=== PATIENT | female | born 1985 | race Caucasian/White ===

== ENCOUNTER 2017-02-27 08:20 | Emergency (ER) | payer MEDICAID, OTHER, SELFPAY ==
[~2017-02-27] VITALS: Ht 154.9 cm; Wt 128.0 kg
[2017-02-27] MEDS ORDERED: PRAD150C PO (08:39)
[2017-02-27] MEDS ORDERED: MORPHINE 4 MG/ML 1ML SYRINGE IV ONE ×2 (09:00→10:45)
[2017-02-27 09:17] LABS: BASO % 0.2 % (0.0-1.0); EOS # 0.1 10^3/uL (0.0-0.50); EOS % 0.9 % (0.0-3.0); IMMATURE GRANULOCYTE % 0.3 % (0-0); LYMPH # 1.6 10^3/uL (1.5-4.5); LYMPH % 27.2 % (24.0-44.0); MEAN CORPUSCULAR HEMOGLOBIN 27.2 pg (27.0-33.0); MEAN CORPUSCULAR HGB CONC 32.2 g/dl (32.0-36.5); MEAN CORPUSCULAR VOLUME 84.3 fl (80.0-96.0); MONO # 0.4 10^3/uL (0.0-0.8); MONO % 6.8 % (0.0-5.0); NEUTROPHILS # 3.8 10^3/uL (1.8-7.7); NEUTROPHILS % 64.6 % (36.0-66.0); PLATELET COUNT, AUTOMATED 350 10^3/uL (150-450); RED CELL DISTRIBUTION WIDTH 15.4 % (11.5-14.5); WHITE BLOOD COUNT 5.9 10^3/uL (4.0-10.0)
[2017-02-27 09:43] LABS: ALBUMIN 3.6 GM/DL (3.2-5.2); ALKALINE PHOSPHATASE 102 U/L (45-117); ALT/SGPT 44 U/L (12-78); ANION GAP 7 MEQ/L (8-16); AST/SGOT 43 U/L (7-37); BILIRUBIN,TOTAL 0.4 MG/DL (0.2-1.0); BLOOD UREA NITROGEN 10 MG/DL (7-18); CARBON DIOXIDE LEVEL 27 MEQ/L (21-32); CHLORIDE LEVEL 105 MEQ/L (98-107); CREATININE FOR GFR 0.79 MG/DL (0.55-1.02); GLOMERULAR FILTRATION RATE > 60.0 (>60); GLUCOSE, FASTING 96 MG/DL (70-105); POTASSIUM SERUM 3.9 MEQ/L (3.5-5.1); SODIUM LEVEL 139 MEQ/L (136-145); TOTAL PROTEIN 7.6 GM/DL (6.4-8.2)
--- NOTE | 2017-02-27 09:44 | REP ---
RENAL ULTRASOUND: Real-time sonographic evaluation of the kidneys is performed and demonstrates both kidneys to be normal in size and echotexture, right kidney measuring 10.4 x 5.4 x 4.4 cm and left kidney 10.6 x 5.1 x 5.1 cm. There is no hydronephrosis, renal mass or nephrolithiasis. The exam is somewhat limited due to patient body habitus. Urinary bladder is not well distended and not well evaluated. IMPRESSION: Unremarkable renal ultrasound with no hydronephrosis. Signed by Keenan Frederick MD 02/27/2017 04:57 P
[2017-02-27] MEDS ORDERED: ISOVUE-370 76% 100ML VIAL (Q9967) As Ordered ONE (10:48)
--- NOTE | 2017-02-27 11:38 | REP ---
CT of the abdomen pelvis with IV contrast, without bowel contrast. The patient complains of left sided abdominal pain. Renal ultrasound earlier today identified and no hydronephrosis is otherwise unremarkable. There are no comparison CT studies. The visualized lung pleitez are unremarkable. The hepatic parenchyma is diffusely hypodense compatible with hepato steatosis. There are no focal hepatic lesions. There are surgical clips in the gallbladder fossa. The pancreas and spleen are normal size and unremarkable. The adrenals are unremarkable. There is no hydronephrosis. There are no renal calculi. There are no solid or cystic renal masses. The abdominal aorta is unremarkable. There is no bowel distension or obstruction. There are a few diverticula in the descending colon and sigmoid colon. There is no CT evidence of diverticulitis. The uterus and adnexa are unremarkable. The bladder is unremarkable. There is a surgical clip at the tip of the cecum. Impression: Hepato steatosis. Cholecystectomy. Appendectomy. There are no adnexal masses or cysts. There is diverticulosis without diverticulitis. There is no ascites or adenopathy. No hydronephrosis. No solid or cystic renal masses. Otherwise, negative CT of the abdomen Signed by Keenan Madison MD 02/27/2017 11:29 A
[2017-02-27] MEDS ORDERED: NORCOTAB PO (13:13)
[2017-02-27] MEDS ORDERED: PYRI1TAB5 PO (13:13)
[2017-02-27] MEDS ORDERED: NITR100C39 PO (13:13)
[2017-02-27 13:23] VITALS: BP 133/79
== END 2017-02-27 13:26 | disposition home or self-care (01) ==
LOC: M ED 08:20
DX: N39.0 Urinary tract infection, site not specified (principal); K57.30 Diverticulosis of large intestine without perforation or abscess without bleeding; K76.0 Fatty (change of) liver, not elsewhere classified; Z79.01 Long term (current) use of anticoagulants; Z88.0 Allergy status to penicillin; Z86.711 Personal history of pulmonary embolism; Z98.890 Other specified postprocedural states
CPT/HCPCS: 74177; 76775; 80053; 81001; 83690; 85025; 96374; 96376; 99284; Q9967

== ENCOUNTER 2017-03-02 14:26 | Emergency (ER) | payer MEDICAID, SELFPAY ==
[~2017-03-02] VITALS: Ht 154.9 cm; Wt 118.6 kg
[2017-03-02 14:26] VITALS: BP 135/81
[~2017-03-02 14:26] MED LIST: NITR100C39 PO; NORCOTAB PO; PRAD150C PO; PYRI1TAB5 PO
[2017-03-02] MEDS ORDERED: METOCLOPRAMIDE INJ 10MG/2ML VIAL (J2765) IV ONE (17:00)
[2017-03-02] MEDS ORDERED: GI COCKTAIL 50ML BTL(HYOSCYAMINE/MAALOX/LIDOCAINE VISCOUS)(1:3:1) PO ONE (17:00)
[2017-03-02] MEDS ORDERED: PANTOPRAZOLE 40MG INJ (PROTONIX) (C9113) IV ONE (17:00)
[2017-03-02] MEDS ORDERED: NS 1,000 ML IV ONE (17:00)
[2017-03-02 17:51] LABS: BASO % 0.1 % (0.0-1.0); EOS # 0.1 10^3/uL (0.0-0.50); EOS % 0.7 % (0.0-3.0); IMMATURE GRANULOCYTE % 0.5 % (0-0); LYMPH # 1.7 10^3/uL (1.5-4.5); MEAN CORPUSCULAR HEMOGLOBIN 27.1 pg (27.0-33.0); MEAN CORPUSCULAR HGB CONC 31.9 g/dl (32.0-36.5); MONO # 0.4 10^3/uL (0.0-0.8); MONO % 4.9 % (0.0-5.0); NEUTROPHILS # 5.3 10^3/uL (1.8-7.7); NEUTROPHILS % 70.8 % (36.0-66.0); PLATELET COUNT, AUTOMATED 347 10^3/uL (150-450); RED CELL DISTRIBUTION WIDTH 15.6 % (11.5-14.5); WHITE BLOOD COUNT 7.5 10^3/uL (4.0-10.0)
[2017-03-02 18:15] LABS: ALBUMIN 3.6 GM/DL (3.2-5.2); ALBUMIN/GLOBULIN RATIO 0.95 (1.00-1.93); ALKALINE PHOSPHATASE 104 U/L (45-117); ALT/SGPT 41 U/L (12-78); ANION GAP 10 MEQ/L (8-16); AST/SGOT 31 U/L (7-37); BILIRUBIN,DIRECT < 0.1 MG/DL (0.0-0.2); BILIRUBIN,TOTAL 0.3 MG/DL (0.2-1.0); BLOOD UREA NITROGEN 14 MG/DL (7-18); CALCIUM LEVEL 8.3 MG/DL (8.5-10.1); CARBON DIOXIDE LEVEL 23 MEQ/L (21-32); CHLORIDE LEVEL 108 MEQ/L (98-107); GLOMERULAR FILTRATION RATE > 60.0 (>60); GLUCOSE, FASTING 83 MG/DL (70-105); POTASSIUM SERUM 3.9 MEQ/L (3.5-5.1); SODIUM LEVEL 141 MEQ/L (136-145); TOTAL PROTEIN 7.4 GM/DL (6.4-8.2)
== END 2017-03-02 18:33 | disposition left against medical advice (07) ==
LOC: M ED 15:40
DX: R31.9 Hematuria, unspecified (principal)
CPT/HCPCS: 80048; 80076; 81001; 81025; 83690; 85025; 87086; 96361; 96374; 96375; 99284; C9113; J2765

== ENCOUNTER 2017-03-03 06:43 | Emergency (ER) | payer MEDICAID, OTHER, SELFPAY ==
[~2017-03-03] VITALS: Ht 154.9 cm; Wt 118.6 kg
[2017-03-03] MEDS ORDERED: MORPHINE 4 MG/ML 1ML SYRINGE IV ONE ×2 (07:45→09:15)
[2017-03-03 08:15] LABS: BASO % 0.2 % (0.0-1.0); EOS # 0.1 10^3/uL (0.0-0.50); EOS % 1.3 % (0.0-3.0); IMMATURE GRANULOCYTE % 0.4 % (0-0); LYMPH # 1.3 10^3/uL (1.5-4.5); LYMPH % 23.3 % (24.0-44.0); MEAN CORPUSCULAR HEMOGLOBIN 27.1 pg (27.0-33.0); MEAN CORPUSCULAR HGB CONC 31.8 g/dl (32.0-36.5); MEAN CORPUSCULAR VOLUME 85.3 fl (80.0-96.0); MONO # 0.4 10^3/uL (0.0-0.8); MONO % 6.8 % (0.0-5.0); NEUTROPHILS # 3.7 10^3/uL (1.8-7.7); PLATELET COUNT, AUTOMATED 331 10^3/uL (150-450); RED CELL DISTRIBUTION WIDTH 15.7 % (11.5-14.5); WHITE BLOOD COUNT 5.4 10^3/uL (4.0-10.0)
[2017-03-03 09:20] VITALS: BP 147/77
--- NOTE | 2017-03-03 09:28 | REP ---
PELVIC ULTRASOUND: Real-time sonographic evaluation of the pelvis performed utilizing transabdominal technique. Bladder measures 4.2 x 3.8 x 4.8 cm. Uterus measures 6.8 x 4.5 x 6.0 cm. Endometrial thickness is 5 mm. Patient declined endovaginal exam. Ovaries are normal in size and echotexture, right ovary measuring 1.8 x 1.1 x 1.3 cm and left ovary 1.9 x 1.6 x 1.8 cm. A dominant follicle in the left ovary measures 1 cm in diameter. There is blood flow seen in each ovary with duplex Doppler evaluation, with no torsion, RI of the right ovary 0.34 and left ovary 0.40. IMPRESSION: Limited exam due to patient body habitus. Patient declined endovaginal exam. Grossly unremarkable pelvic ultrasound with no mass, free fluid, or torsion. Signed by Keenan Frederick MD 03/03/2017 05:21 P
== END 2017-03-03 11:07 | disposition home or self-care (01) ==
LOC: M ED 06:43
DX: R31.9 Hematuria, unspecified (principal); R10.32 Left lower quadrant pain; Z79.899 Other long term (current) drug therapy; Z88.0 Allergy status to penicillin; Z86.711 Personal history of pulmonary embolism

== ENCOUNTER 2017-03-10 10:07 | Emergency (ER) | payer MEDICAID, OTHER ==
[2017-03-10] MEDS: GI COCKTAIL 50ML BTL(HYOSCYAMINE/MAALOX/LIDOCAINE VISCOUS)(1:3:1) PO ×2 (12:00)
[2017-03-10 12:16] LABS: BASO % 0.3 % (0.0-1.0); EOS % 0.4 % (0.0-3.0); IMMATURE GRANULOCYTE % 0.4 % (0-0); LYMPH # 1.5 10^3/uL (1.5-4.5); LYMPH % 18.9 % (24.0-44.0); MEAN CORPUSCULAR HEMOGLOBIN 27.3 pg (27.0-33.0); MEAN CORPUSCULAR HGB CONC 31.7 g/dl (32.0-36.5); MEAN CORPUSCULAR VOLUME 86.1 fl (80.0-96.0); MONO # 0.5 10^3/uL (0.0-0.8); MONO % 5.9 % (0.0-5.0); NEUTROPHILS # 5.7 10^3/uL (1.8-7.7); NEUTROPHILS % 74.1 % (36.0-66.0); PLATELET COUNT, AUTOMATED 341 10^3/uL (150-450); RED CELL DISTRIBUTION WIDTH 15.3 % (11.5-14.5); WHITE BLOOD COUNT 7.7 10^3/uL (4.0-10.0)
[2017-03-10 12:47] LABS: ALBUMIN 3.6 GM/DL (3.2-5.2); ALBUMIN/GLOBULIN RATIO 0.86 (1.00-1.93); ALKALINE PHOSPHATASE 92 U/L (45-117); ALT/SGPT 36 U/L (12-78); ANION GAP 7 MEQ/L (8-16); AST/SGOT 25 U/L (7-37); BILIRUBIN,TOTAL 0.4 MG/DL (0.2-1.0); BLOOD UREA NITROGEN 19 MG/DL (7-18); CALCIUM LEVEL 8.6 MG/DL (8.5-10.1); CARBON DIOXIDE LEVEL 26 MEQ/L (21-32); CHLORIDE LEVEL 107 MEQ/L (98-107); CREATININE FOR GFR 0.68 MG/DL (0.55-1.02); GLOMERULAR FILTRATION RATE > 60.0 (>60); GLUCOSE, FASTING 91 MG/DL (70-105); POTASSIUM SERUM 3.9 MEQ/L (3.5-5.1); SODIUM LEVEL 140 MEQ/L (136-145); TOTAL PROTEIN 7.8 GM/DL (6.4-8.2)
[2017-03-10] MEDS: NORCO, ANEXSIA 5/325MG TABLET (HYDROcodone/ACETAMINOPHEN) PO ×2 (13:26)
[2017-03-10] MEDS: MAGNESIUM CITRATE 300 ML BTL PO ×2 (14:45)
== END 2017-03-10 14:58 | disposition home or self-care (01) ==
LOC: M ED 10:07
DX: R10.13 Epigastric pain (principal); Z86.711 Personal history of pulmonary embolism; Z88.0 Allergy status to penicillin; Z79.01 Long term (current) use of anticoagulants
CPT/HCPCS: 71020

== ENCOUNTER 2017-03-30 13:19 | Emergency (ER) | payer MEDICAID, OTHER ==
[2017-03-30] MEDS: NORCO, ANEXSIA 5/325MG TABLET (HYDROcodone/ACETAMINOPHEN) PO ×2 (16:58)
== END 2017-03-30 17:07 | disposition home or self-care (01) ==
LOC: M ED 13:19
DX: R10.9 Unspecified abdominal pain (principal); J45.909 Unspecified asthma, uncomplicated; Z79.01 Long term (current) use of anticoagulants; Z88.0 Allergy status to penicillin; Z87.442 Personal history of urinary calculi; Z86.711 Personal history of pulmonary embolism
CPT/HCPCS: 81025

== ENCOUNTER 2017-04-30 14:45 | Emergency (ER) | payer MEDICAID, OTHER ==
[2017-04-30] MEDS: ONDANSETRON 4MG/2ML VIAL (J2405) IV ×2 (15:46)
[2017-04-30] MEDS: MORPHINE 4 MG/ML 1ML VIAL (J2270) IV ×2 (15:46)
[2017-04-30] MEDS: NS 1,000 ML IV ×2 (15:47)
[2017-04-30 15:53] LABS: BASO % 0.3 % (0.0-1.0); EOS # 0.1 10^3/uL (0.0-0.50); EOS % 1.3 % (0.0-3.0); HEMATOCRIT 35.7 % (36.0-47.0); HEMOGLOBIN 11.4 g/dl (12.0-16.0); IMMATURE GRANULOCYTE % 0.3 % (0-3.0); LYMPH # 1.9 10^3/uL (1.5-4.5); LYMPH % 31.7 % (24.0-44.0); MEAN CORPUSCULAR HGB CONC 31.9 g/dl (32.0-36.5); MEAN CORPUSCULAR VOLUME 84.4 fl (80.0-96.0); MONO # 0.4 10^3/uL (0.0-0.8); MONO % 7.4 % (0.0-5.0); NEUTROPHILS # 3.5 10^3/uL (1.8-7.7); PLATELET COUNT, AUTOMATED 290 10^3/uL (150-450); RED BLOOD COUNT 4.23 10^6/uL (4.00-5.40); RED CELL DISTRIBUTION WIDTH 14.3 % (11.5-14.5); WHITE BLOOD COUNT 5.9 10^3/uL (4.0-10.0)
[2017-04-30 16:15] LABS: ALBUMIN 3.6 GM/DL (3.2-5.2); ALKALINE PHOSPHATASE 104 U/L (45-117); ALT/SGPT 57 U/L (12-78); AMYLASE 45 U/L (25-115); ANION GAP 7 MEQ/L (8-16); AST/SGOT 42 U/L (7-37); BILIRUBIN,DIRECT < 0.1 MG/DL (0.0-0.2); BILIRUBIN,TOTAL 0.3 MG/DL (0.2-1.0); BLOOD UREA NITROGEN 11 MG/DL (7-18); CALCIUM LEVEL 8.6 MG/DL (8.5-10.1); CARBON DIOXIDE LEVEL 28 MEQ/L (21-32); CHLORIDE LEVEL 105 MEQ/L (98-107); CREATININE FOR GFR 0.72 MG/DL (0.55-1.30); GLOMERULAR FILTRATION RATE > 60.0 (>60); GLUCOSE, FASTING 99 MG/DL (70-100); LIPASE 99 U/L (73-393); POTASSIUM SERUM 3.9 MEQ/L (3.5-5.1); SODIUM LEVEL 140 MEQ/L (136-145); TOTAL PROTEIN 7.6 GM/DL (6.4-8.2)
[2017-04-30 16:37] LABS: KETONE, URINE AUTO RFX NEGATIVE (NEGATIVE); NITRITE, URINE AUTO RFX NEGATIVE (NEGATIVE); RBC, URINE AUTO RFX TNTC /HPF (0-3); SPECIFIC GRAVITY UR AUTO RFX 1.017 (1.002-1.035); SQUAM EPITHELIAL CELL UR AURFX 16 /HPF (0-6)
[2017-04-30 16:45] LABS: LEUKOCYTE ESTERASE UR AUTO RFX 2+ (NEGATIVE); WBC, URINE AUTO RFX 11 /HPF (0-3)
[2017-04-30 17:45] LABS: CONTROL LINE UCG INT CTR LINE PRESENT; URINE PREG TEST NEGATIVE (NEGATIVE)
[2017-04-30] MEDS ORDERED: ISOVUE-370 76% 100ML VIAL (Q9967) As Ordered ×2 (18:02)
== END 2017-04-30 19:23 | disposition left against medical advice (07) ==
LOC: M ED 14:45
DX: R10.12 Left upper quadrant pain (principal); J45.909 Unspecified asthma, uncomplicated; Z79.01 Long term (current) use of anticoagulants; Z88.0 Allergy status to penicillin; Z87.442 Personal history of urinary calculi; Z86.711 Personal history of pulmonary embolism
CPT/HCPCS: J2270

== ENCOUNTER 2017-05-02 12:59 | Emergency (ER) | payer MEDICAID, OTHER ==
[2017-05-02 14:17] LABS: BASO % 0.4 % (0.0-1.0); EOS % 0.7 % (0.0-3.0); HEMATOCRIT 36.2 % (36.0-47.0); HEMOGLOBIN 11.7 g/dl (12.0-16.0); IMMATURE GRANULOCYTE % 0.4 % (0-3.0); LYMPH # 1.3 10^3/uL (1.5-4.5); LYMPH % 23.9 % (24.0-44.0); MEAN CORPUSCULAR HEMOGLOBIN 27.5 pg (27.0-33.0); MEAN CORPUSCULAR HGB CONC 32.3 g/dl (32.0-36.5); MEAN CORPUSCULAR VOLUME 85.2 fl (80.0-96.0); MONO # 0.4 10^3/uL (0.0-0.8); MONO % 7.7 % (0.0-5.0); NEUTROPHILS # 3.7 10^3/uL (1.8-7.7); NEUTROPHILS % 66.9 % (36.0-66.0); PLATELET COUNT, AUTOMATED 294 10^3/uL (150-450); RED BLOOD COUNT 4.25 10^6/uL (4.00-5.40); RED CELL DISTRIBUTION WIDTH 14.6 % (11.5-14.5); WHITE BLOOD COUNT 5.5 10^3/uL (4.0-10.0)
[2017-05-02] MEDS: ONDANSETRON 4MG/2ML VIAL (J2405) IV ×2 (14:25)
[2017-05-02] MEDS: NS 500 ML IV ×2 (14:25)
[2017-05-02] MEDS: MORPHINE 4 MG/ML 1ML VIAL (J2270) IV ×2 (14:26)
[2017-05-02 14:34] LABS: ALBUMIN 3.8 GM/DL (3.2-5.2); ALKALINE PHOSPHATASE 107 U/L (45-117); ALT/SGPT 60 U/L (12-78); AMYLASE 45 U/L (25-115); ANION GAP 7 MEQ/L (8-16); AST/SGOT 52 U/L (7-37); BILIRUBIN,DIRECT < 0.1 MG/DL (0.0-0.2); BILIRUBIN,TOTAL 0.3 MG/DL (0.2-1.0); BLOOD UREA NITROGEN 8 MG/DL (7-18); CALCIUM LEVEL 8.8 MG/DL (8.5-10.1); CARBON DIOXIDE LEVEL 28 MEQ/L (21-32); CHLORIDE LEVEL 104 MEQ/L (98-107); CREATININE FOR GFR 0.78 MG/DL (0.55-1.30); GLOMERULAR FILTRATION RATE > 60.0 (>60); GLUCOSE, FASTING 107 MG/DL (70-100); LIPASE 101 U/L (73-393); SODIUM LEVEL 139 MEQ/L (136-145)
[2017-05-02 14:47] LABS: APPEARANCE, URINE HAZY (CLEAR); BACTERIA, URINE AUTO 2+ (NEGATIVE); BILIRUBIN, URINE AUTO NEGATIVE (NEGATIVE); BLOOD, URINE BLOOD 1+ (NEGATIVE); COLOR, URINE YELLOW (YELLOW); GLUCOSE, URINE (UA) AUTO NEGATIVE (NEGATIVE); KETONE, URINE AUTO NEGATIVE (NEGATIVE); LEUKOCYTE ESTERASE, URINE AUTO 1+ (NEGATIVE); NITRITE, URINE AUTO NEGATIVE (NEGATIVE); PROTEIN, URINE AUTO 1+ mg/dL (NEGATIVE); RBC, URINE AUTO 10 /HPF (0-3); SPECIFIC GRAVITY URINE AUTO 1.026 (1.002-1.035); SQUAMOUS EPITHELIAL CELL UR AU 9 /HPF (0-6); UROBILINOGEN, URINE AUTO 0.2 mg/dL (0.0-2.0); WBC, URINE AUTO 12 /HPF (0-3)
[2017-05-02] MEDS: metroNIDAZOLE (FLAGYL) 500 MG TAB PO ×2 (15:10)
[2017-05-02] MEDS: CIPROFLOXACIN 500 MG TAB PO ×2 (15:10)
== END 2017-05-02 15:15 | disposition home or self-care (01) ==
LOC: M ED 12:59
DX: N39.0 Urinary tract infection, site not specified (principal); K52.9 Noninfective gastroenteritis and colitis, unspecified; N83.292 Other ovarian cyst, left side; E66.01 Morbid (severe) obesity due to excess calories; Z87.442 Personal history of urinary calculi; J45.909 Unspecified asthma, uncomplicated; Z86.711 Personal history of pulmonary embolism; Z79.899 Other long term (current) drug therapy; Z88.0 Allergy status to penicillin
CPT/HCPCS: J2270

== ENCOUNTER → 2017-05-07 | Outpatient (REF) | payer MEDICAID ==
[2017-05-07 14:07] LABS: APPEARANCE, URINE CLOUDY (CLEAR); BACTERIA, URINE AUTO NEGATIVE (NEGATIVE); BILIRUBIN, URINE AUTO NEGATIVE (NEGATIVE); BLOOD, URINE BLOOD 3+ (NEGATIVE); COLOR, URINE AMBER (YELLOW); GLUCOSE, URINE (UA) AUTO NEGATIVE (NEGATIVE); KETONE, URINE AUTO NEGATIVE (NEGATIVE); LEUKOCYTE ESTERASE, URINE AUTO TRACE (NEGATIVE); MUCUS, URINE MODERATE (NEGATIVE); NITRITE, URINE AUTO NEGATIVE (NEGATIVE); PROTEIN, URINE AUTO 2+ mg/dL (NEGATIVE); RBC, URINE AUTO TNTC /HPF (0-3); SPECIFIC GRAVITY URINE AUTO 1.036 (1.002-1.035); SQUAMOUS EPITHELIAL CELL UR AU 7 /HPF (0-6); UROBILINOGEN, URINE AUTO 0.2 mg/dL (0.0-2.0); WBC, URINE AUTO 8 /HPF (0-3)
== END ==
LOC: M SMT 13:10
DX: R31.0 Gross hematuria (principal)
CPT/HCPCS: 81001

== ENCOUNTER 2017-05-25 14:10 | Emergency (ER) | payer MEDICAID ==
[2017-05-25] MEDS: ONDANSETRON 4MG/2ML VIAL (J2405) IV (15:44)
[2017-05-25] MEDS: NS 1,000 ML IV (15:44)
[2017-05-25] MEDS: MORPHINE 4 MG/ML 1ML VIAL (J2270) IV ×3 (15:45→18:03)
[2017-05-25 15:56] LABS: BASO % 0.2 % (0.0-1.0); EOS # 0.1 10^3/uL (0.0-0.50); EOS % 1.3 % (0.0-3.0); HEMATOCRIT 34.6 % (36.0-47.0); HEMOGLOBIN 10.9 g/dl (12.0-16.0); IMMATURE GRANULOCYTE % 1.1 % (0-3.0); LYMPH # 2.2 10^3/uL (1.5-4.5); LYMPH % 23.6 % (24.0-44.0); MEAN CORPUSCULAR HEMOGLOBIN 26.5 pg (27.0-33.0); MEAN CORPUSCULAR HGB CONC 31.5 g/dl (32.0-36.5); MONO # 0.6 10^3/uL (0.0-0.8); MONO % 6.8 % (0.0-5.0); NEUTROPHILS # 6.2 10^3/uL (1.8-7.7); PLATELET COUNT, AUTOMATED 307 10^3/uL (150-450); RED BLOOD COUNT 4.12 10^6/uL (4.00-5.40); RED CELL DISTRIBUTION WIDTH 14.3 % (11.5-14.5); WHITE BLOOD COUNT 9.3 10^3/uL (4.0-10.0)
[2017-05-25 16:11] LABS: KETONE, URINE AUTO RFX NEGATIVE (NEGATIVE); LEUKOCYTE ESTERASE UR AUTO RFX NEGATIVE (NEGATIVE); MUCUS, URINE RFX SMALL (NEGATIVE); NITRITE, URINE AUTO RFX NEGATIVE (NEGATIVE); RBC, URINE AUTO RFX 0 /HPF (0-3); SQUAM EPITHELIAL CELL UR AURFX 4 /HPF (0-6); WBC, URINE AUTO RFX 1 /HPF (0-3)
[2017-05-25 16:12] LABS: ALBUMIN 3.5 GM/DL (3.2-5.2); ALBUMIN/GLOBULIN RATIO 0.95 (1.00-1.93); ALKALINE PHOSPHATASE 101 U/L (45-117); ALT/SGPT 40 U/L (12-78); ANION GAP 6 MEQ/L (8-16); AST/SGOT 28 U/L (7-37); BILIRUBIN,DIRECT < 0.1 MG/DL (0.0-0.2); BILIRUBIN,TOTAL 0.2 MG/DL (0.2-1.0); BLOOD UREA NITROGEN 12 MG/DL (7-18); CALCIUM LEVEL 8.4 MG/DL (8.5-10.1); CARBON DIOXIDE LEVEL 27 MEQ/L (21-32); CHLORIDE LEVEL 107 MEQ/L (98-107); GLOMERULAR FILTRATION RATE > 60.0 (>60); GLUCOSE, FASTING 85 MG/DL (70-100); LIPASE 113 U/L (73-393); POTASSIUM SERUM 3.8 MEQ/L (3.5-5.1); SODIUM LEVEL 140 MEQ/L (136-145); TOTAL PROTEIN 7.2 GM/DL (6.4-8.2)
[2017-05-25 16:26] LABS: CONTROL LINE UCG INT CTR LINE PRESENT; URINE PREG TEST NEGATIVE (NEGATIVE)
[2017-05-25] MEDS ORDERED: ISOVUE-370 76% 100ML VIAL (Q9967) As Ordered (16:33)
== END 2017-05-25 18:29 | disposition home or self-care (01) ==
LOC: M ED 14:10
DX: N83.202 Unspecified ovarian cyst, left side (principal); R10.32 Left lower quadrant pain; Z87.442 Personal history of urinary calculi; K76.0 Fatty (change of) liver, not elsewhere classified; Z79.899 Other long term (current) drug therapy; Z88.0 Allergy status to penicillin
CPT/HCPCS: J2270

== ENCOUNTER 2017-06-18 10:07 | Emergency (ER) | payer OTHER, MEDICAID ==
[2017-06-18] MEDS: PERCOCET 5MG/325MG TAB PO (10:43)
[2017-06-18] MEDS: ONDANSETRON 4 MG ORAL DISINTEGRATING TAB (S0181) PO (10:43)
[2017-06-18 11:05] LABS: BASO % 0.2 % (0.0-1.0); EOS # 0.1 10^3/uL (0.0-0.50); EOS % 0.9 % (0.0-3.0); HEMATOCRIT 36.1 % (36.0-47.0); HEMOGLOBIN 11.6 g/dl (12.0-15.5); IMMATURE GRANULOCYTE % 0.5 % (0-3.0); LYMPH # 1.6 10^3/uL (1.5-4.5); LYMPH % 19.4 % (24.0-44.0); MEAN CORPUSCULAR HEMOGLOBIN 27.2 pg (27.0-33.0); MEAN CORPUSCULAR HGB CONC 32.1 g/dl (32.0-36.5); MEAN CORPUSCULAR VOLUME 84.5 fl (80.0-96.0); MONO # 0.5 10^3/uL (0.0-0.8); MONO % 6.6 % (0.0-5.0); NEUTROPHILS # 5.8 10^3/uL (1.8-7.7); NEUTROPHILS % 72.4 % (36.0-66.0); PLATELET COUNT, AUTOMATED 336 10^3/uL (150-450); RED BLOOD COUNT 4.27 10^6/uL (4.00-5.40); RED CELL DISTRIBUTION WIDTH 14.8 % (11.5-14.5); WHITE BLOOD COUNT 8.1 10^3/uL (4.0-10.0)
[2017-06-18 11:49] LABS: ALBUMIN 3.7 GM/DL (3.2-5.2); ALBUMIN/GLOBULIN RATIO 0.95 (1.00-1.93); ALKALINE PHOSPHATASE 119 U/L (45-117); ALT/SGPT 61 U/L (12-78); ANION GAP 8 MEQ/L (8-16); AST/SGOT 49 U/L (7-37); BILIRUBIN,DIRECT < 0.1 MG/DL (0.0-0.2); BILIRUBIN,TOTAL 0.3 MG/DL (0.2-1.0); BLOOD UREA NITROGEN 8 MG/DL (7-18); CALCIUM LEVEL 8.9 MG/DL (8.5-10.1); CARBON DIOXIDE LEVEL 24 MEQ/L (21-32); CHLORIDE LEVEL 110 MEQ/L (98-107); CREATININE FOR GFR 0.79 MG/DL (0.55-1.30); GLOMERULAR FILTRATION RATE > 60.0 (>60); GLUCOSE, FASTING 88 MG/DL (70-100); LIPASE 90 U/L (73-393); POTASSIUM SERUM 4.2 MEQ/L (3.5-5.1); SODIUM LEVEL 142 MEQ/L (136-145); TOTAL PROTEIN 7.6 GM/DL (6.4-8.2)
== END 2017-06-18 12:08 | disposition home or self-care (01) ==
LOC: M ED 10:07
DX: N83.209 Unspecified ovarian cyst, unspecified side (principal); N30.00 Acute cystitis without hematuria; Z87.442 Personal history of urinary calculi; Z86.711 Personal history of pulmonary embolism; Z88.0 Allergy status to penicillin; Z79.899 Other long term (current) drug therapy
CPT/HCPCS: 74019

== ENCOUNTER 2017-06-26 06:06 | Emergency (ER) | payer OTHER ==
[2017-06-26] MEDS: ONDANSETRON 4 MG ORAL DISINTEGRATING TAB (S0181) PO (07:23)
[2017-06-26 07:43] LABS: BASO % 0.5 % (0.0-1.0); EOS # 0.1 10^3/uL (0.0-0.50); HEMATOCRIT 33.9 % (36.0-47.0); HEMOGLOBIN 10.6 g/dl (12.0-15.5); IMMATURE GRANULOCYTE % 0.3 % (0-3.0); LYMPH # 1.3 10^3/uL (1.5-4.5); LYMPH % 21.6 % (24.0-44.0); MEAN CORPUSCULAR HEMOGLOBIN 26.8 pg (27.0-33.0); MEAN CORPUSCULAR HGB CONC 31.3 g/dl (32.0-36.5); MEAN CORPUSCULAR VOLUME 85.6 fl (80.0-96.0); MONO # 0.5 10^3/uL (0.0-0.8); MONO % 7.8 % (0.0-5.0); NEUTROPHILS # 4.1 10^3/uL (1.8-7.7); NEUTROPHILS % 67.8 % (36.0-66.0); PLATELET COUNT, AUTOMATED 358 10^3/uL (150-450); RED BLOOD COUNT 3.96 10^6/uL (4.00-5.40); RED CELL DISTRIBUTION WIDTH 14.8 % (11.5-14.5); WHITE BLOOD COUNT 6.1 10^3/uL (4.0-10.0)
[2017-06-26 07:48] LABS: APPEARANCE, URINE HAZY (CLEAR); BACTERIA, URINE AUTO 1+ (NEGATIVE); BILIRUBIN, URINE AUTO NEGATIVE (NEGATIVE); BLOOD, URINE BLOOD 3+ (NEGATIVE); COLOR, URINE YELLOW (YELLOW); GLUCOSE, URINE (UA) AUTO NEGATIVE (NEGATIVE); KETONE, URINE AUTO NEGATIVE (NEGATIVE); LEUKOCYTE ESTERASE, URINE AUTO 1+ (NEGATIVE); MUCUS, URINE SMALL (NEGATIVE); NITRITE, URINE AUTO NEGATIVE (NEGATIVE); PROTEIN, URINE AUTO NEGATIVE (NEGATIVE); RBC, URINE AUTO TNTC /HPF (0-3); SPECIFIC GRAVITY URINE AUTO 1.008 (1.002-1.035); SQUAMOUS EPITHELIAL CELL UR AU 7 /HPF (0-6); UROBILINOGEN, URINE AUTO 0.2 mg/dL (0.0-2.0); WBC, URINE AUTO 16 /HPF (0-3)
[2017-06-26] MEDS: PERCOCET 5MG/325MG TAB PO (08:05)
[2017-06-26 08:07] LABS: ANION GAP 6 MEQ/L (8-16); BLOOD UREA NITROGEN 12 MG/DL (7-18); CALCIUM LEVEL 8.7 MG/DL (8.5-10.1); CARBON DIOXIDE LEVEL 26 MEQ/L (21-32); CHLORIDE LEVEL 109 MEQ/L (98-107); CREATININE FOR GFR 0.81 MG/DL (0.55-1.30); GLOMERULAR FILTRATION RATE > 60.0 (>60); GLUCOSE, FASTING 100 MG/DL (70-100); POTASSIUM SERUM 4.3 MEQ/L (3.5-5.1); SODIUM LEVEL 141 MEQ/L (136-145)
[2017-06-26] MEDS: NS 1,000 ML IV (08:41)
[2017-06-26] MEDS: METOCLOPRAMIDE INJ 10MG/2ML VIAL (J2765) IV (08:41)
[2017-06-26] MEDS: MORPHINE 4 MG/ML 1ML VIAL (J2270) IV (09:01)
[2017-06-26 09:05] LABS: LACTIC ACID SEPSIS PROTOCOL 1.6 MMOL/L (0.4-2.0)
== END 2017-06-26 10:21 | disposition home or self-care (01) ==
LOC: M ED 06:06
DX: R10.9 Unspecified abdominal pain (principal); N20.0 Calculus of kidney; R31.9 Hematuria, unspecified; I10 Essential (primary) hypertension; J45.909 Unspecified asthma, uncomplicated; K76.0 Fatty (change of) liver, not elsewhere classified; Z79.899 Other long term (current) drug therapy; Z88.0 Allergy status to penicillin; Z98.890 Other specified postprocedural states; Z86.711 Personal history of pulmonary embolism; Z87.19 Personal history of other diseases of the digestive system; Z87.442 Personal history of urinary calculi; Z87.448 Personal history of other diseases of urinary system
CPT/HCPCS: J2270

== ENCOUNTER 2017-07-04 11:28 | Observation (INO) | payer OTHER ==
[2017-07-04 12:33] LABS: BASO % 0.4 % (0.0-1.0); EOS # 0.2 10^3/uL (0.0-0.50); EOS % 2.3 % (0.0-3.0); HEMATOCRIT 34.9 % (36.0-47.0); HEMOGLOBIN 10.9 g/dl (12.0-15.5); IMMATURE GRANULOCYTE % 0.6 % (0-3.0); LYMPH # 2.2 10^3/uL (1.5-4.5); LYMPH % 27.1 % (24.0-44.0); MEAN CORPUSCULAR HEMOGLOBIN 26.5 pg (27.0-33.0); MEAN CORPUSCULAR HGB CONC 31.2 g/dl (32.0-36.5); MEAN CORPUSCULAR VOLUME 84.9 fl (80.0-96.0); MONO # 0.7 10^3/uL (0.0-0.8); MONO % 8.9 % (0.0-5.0); NEUTROPHILS # 4.9 10^3/uL (1.8-7.7); NEUTROPHILS % 60.7 % (36.0-66.0); PLATELET COUNT, AUTOMATED 376 10^3/uL (150-450); RED BLOOD COUNT 4.11 10^6/uL (4.00-5.40); RED CELL DISTRIBUTION WIDTH 14.5 % (11.5-14.5)
[2017-07-04] MEDS: PERCOCET 5MG/325MG TAB PO ×2 (12:34→21:18)
[2017-07-04] MEDS: ONDANSETRON 4 MG ORAL DISINTEGRATING TAB (Q0162 PER 1MG) PO (12:34)
[2017-07-04] MEDS: NS 1,000 ML IV ×2 (12:34→17:45)
[2017-07-04 12:49] LABS: APPEARANCE, URINE CLOUDY (CLEAR); BACTERIA, URINE AUTO 1+ (NEGATIVE); BILIRUBIN, URINE AUTO NEGATIVE (NEGATIVE); BLOOD, URINE BLOOD NEGATIVE (NEGATIVE); COLOR, URINE YELLOW (YELLOW); GLUCOSE, URINE (UA) AUTO NEGATIVE (NEGATIVE); KETONE, URINE AUTO NEGATIVE (NEGATIVE); LEUKOCYTE ESTERASE, URINE AUTO TRACE (NEGATIVE); MUCUS, URINE SMALL (NEGATIVE); NITRITE, URINE AUTO NEGATIVE (NEGATIVE); PROTEIN, URINE AUTO NEGATIVE (NEGATIVE); RBC, URINE AUTO 2 /HPF (0-3); SPECIFIC GRAVITY URINE AUTO 1.028 (1.002-1.035); SQUAMOUS EPITHELIAL CELL UR AU 15 /HPF (0-6); UROBILINOGEN, URINE AUTO 0.2 mg/dL (0.0-2.0); WBC, URINE AUTO 4 /HPF (0-3)
[2017-07-04 12:56] LABS: ANION GAP 6 MEQ/L (8-16); BLOOD UREA NITROGEN 18 MG/DL (7-18); CALCIUM LEVEL 8.8 MG/DL (8.5-10.1); CARBON DIOXIDE LEVEL 25 MEQ/L (21-32); CHLORIDE LEVEL 108 MEQ/L (98-107); CREATININE FOR GFR 0.79 MG/DL (0.55-1.30); GLOMERULAR FILTRATION RATE > 60.0 (>60); GLUCOSE, FASTING 90 MG/DL (70-100); POTASSIUM SERUM 4.6 MEQ/L (3.5-5.1); SODIUM LEVEL 139 MEQ/L (136-145)
[2017-07-04] MEDS: MORPHINE 4 MG/ML 1ML VIAL/SYRINGE (J2270) IV ×3 (13:53→22:53)
[2017-07-04] MEDS ORDERED: ISOVUE-370 76% 100ML VIAL (Q9967) As Ordered (15:30)
[2017-07-04] MEDS ORDERED: ACETAMINOPHEN TAB 650MG DOSE (2X325MG) PO (17:15)
[2017-07-04] MEDS ORDERED: MIRALAX *UNIT DOSE* 17GM PACKET PO (17:15)
[2017-07-04] MEDS: LevoFLOXacin 500 MG TABLET PO (18:40)
[2017-07-04] MEDS: MIRTAZAPINE 15 MG TAB PO (21:17)
[2017-07-04] MEDS: DABIGATRAN ETEXILATE 75 MG CAP (PRADAXA) PO (21:17)
[2017-07-04] MEDS: cloNIDine 0.2 MG TAB PO (21:18)
[2017-07-05] MEDS: MORPHINE 4 MG/ML 1ML VIAL/SYRINGE (J2270) IV ×5 (02:17→22:57)
[2017-07-05 06:57] LABS: BASO % 0.2 % (0.0-1.0); EOS # 0.2 10^3/uL (0.0-0.50); EOS % 4.3 % (0.0-3.0); HEMATOCRIT 29.5 % (36.0-47.0); HEMOGLOBIN 9.2 g/dl (12.0-15.5); IMMATURE GRANULOCYTE % 0.8 % (0-3.0); LYMPH # 1.7 10^3/uL (1.5-4.5); LYMPH % 32.5 % (24.0-44.0); MEAN CORPUSCULAR HEMOGLOBIN 26.7 pg (27.0-33.0); MEAN CORPUSCULAR HGB CONC 31.2 g/dl (32.0-36.5); MEAN CORPUSCULAR VOLUME 85.5 fl (80.0-96.0); MONO # 0.5 10^3/uL (0.0-0.8); MONO % 9.9 % (0.0-5.0); NEUTROPHILS # 2.7 10^3/uL (1.8-7.7); NEUTROPHILS % 52.3 % (36.0-66.0); PLATELET COUNT, AUTOMATED 303 10^3/uL (150-450); RED BLOOD COUNT 3.45 10^6/uL (4.00-5.40); RED CELL DISTRIBUTION WIDTH 14.7 % (11.5-14.5); WHITE BLOOD COUNT 5.2 10^3/uL (4.0-10.0)
[2017-07-05 07:14] LABS: ALBUMIN 2.9 GM/DL (3.2-5.2); ALBUMIN/GLOBULIN RATIO 0.83 (1.00-1.93); ALKALINE PHOSPHATASE 107 U/L (45-117); ALT/SGPT 80 U/L (12-78); ANION GAP 7 MEQ/L (8-16); AST/SGOT 74 U/L (7-37); BILIRUBIN,TOTAL 0.3 MG/DL (0.2-1.0); BLOOD UREA NITROGEN 11 MG/DL (7-18); CALCIUM LEVEL 7.9 MG/DL (8.5-10.1); CARBON DIOXIDE LEVEL 22 MEQ/L (21-32); CHLORIDE LEVEL 110 MEQ/L (98-107); CREATININE FOR GFR 0.74 MG/DL (0.55-1.30); GLOMERULAR FILTRATION RATE > 60.0 (>60); GLUCOSE, FASTING 81 MG/DL (70-100); POTASSIUM SERUM 4.4 MEQ/L (3.5-5.1); SODIUM LEVEL 139 MEQ/L (136-145); TOTAL PROTEIN 6.4 GM/DL (6.4-8.2)
[2017-07-05] MEDS: DABIGATRAN ETEXILATE 75 MG CAP (PRADAXA) PO ×2 (09:11→20:16)
[2017-07-05] MEDS: PANTOPRAZOLE 40MG TAB (PROTONIX) PO (09:11)
[2017-07-05] MEDS: amLODIPine 5 MG TAB PO (09:12)
[2017-07-05] MEDS: cloNIDine 0.2 MG TAB PO ×2 (09:12→20:18)
[2017-07-05] MEDS: PERCOCET 5MG/325MG TAB PO ×3 (09:14→20:17)
[2017-07-05] MEDS: NS 1,000 ML IV ×2 (09:19→17:30)
[2017-07-05] MEDS: MIRTAZAPINE 15 MG TAB PO (20:17)
[2017-07-06] MEDS: PERCOCET 5MG/325MG TAB PO ×3 (03:45→22:41)
[2017-07-06] MEDS: NS 1,000 ML IV ×3 (03:46→22:45)
[2017-07-06] MEDS: MORPHINE 4 MG/ML 1ML VIAL/SYRINGE (J2270) IV (05:03)
[2017-07-06] MEDS: DABIGATRAN ETEXILATE 75 MG CAP (PRADAXA) PO ×2 (09:17→22:39)
[2017-07-06] MEDS: cloNIDine 0.2 MG TAB PO ×2 (09:18→22:39)
[2017-07-06] MEDS: PANTOPRAZOLE 40MG TAB (PROTONIX) PO (09:18)
[2017-07-06] MEDS: amLODIPine 5 MG TAB PO (09:18)
[2017-07-06 10:12] LABS: BASO % 0.2 % (0.0-1.0); EOS # 0.2 10^3/uL (0.0-0.50); EOS % 4.5 % (0.0-3.0); HEMATOCRIT 28.6 % (36.0-47.0); IMMATURE GRANULOCYTE % 0.8 % (0-3.0); LYMPH # 1.9 10^3/uL (1.5-4.5); LYMPH % 35.8 % (24.0-44.0); MEAN CORPUSCULAR HEMOGLOBIN 27.2 pg (27.0-33.0); MEAN CORPUSCULAR HGB CONC 31.5 g/dl (32.0-36.5); MEAN CORPUSCULAR VOLUME 86.4 fl (80.0-96.0); MONO # 0.5 10^3/uL (0.0-0.8); MONO % 9.4 % (0.0-5.0); NEUTROPHILS # 2.6 10^3/uL (1.8-7.7); NEUTROPHILS % 49.3 % (36.0-66.0); PLATELET COUNT, AUTOMATED 267 10^3/uL (150-450); RED BLOOD COUNT 3.31 10^6/uL (4.00-5.40); RED CELL DISTRIBUTION WIDTH 14.6 % (11.5-14.5); WHITE BLOOD COUNT 5.3 10^3/uL (4.0-10.0)
[2017-07-06 10:57] LABS: ALBUMIN 2.8 GM/DL (3.2-5.2); ALBUMIN/GLOBULIN RATIO 0.93 (1.00-1.93); ALKALINE PHOSPHATASE 96 U/L (45-117); ALT/SGPT 68 U/L (12-78); ANION GAP 4 MEQ/L (8-16); AST/SGOT 55 U/L (7-37); BILIRUBIN,TOTAL 0.3 MG/DL (0.2-1.0); BLOOD UREA NITROGEN 6 MG/DL (7-18); CALCIUM LEVEL 7.9 MG/DL (8.5-10.1); CARBON DIOXIDE LEVEL 26 MEQ/L (21-32); CHLORIDE LEVEL 111 MEQ/L (98-107); CREATININE FOR GFR 0.79 MG/DL (0.55-1.30); GLOMERULAR FILTRATION RATE > 60.0 (>60); GLUCOSE, FASTING 82 MG/DL (70-100); LDH LACTATE DEHYDROGENASE 192 U/L (84-246); SODIUM LEVEL 141 MEQ/L (136-145); TOTAL PROTEIN 5.8 GM/DL (6.4-8.2)
[2017-07-06] MEDS: MIRTAZAPINE 15 MG TAB PO (22:40)
[2017-07-07] MEDS: NS 1,000 ML IV (06:30)
[2017-07-07 06:55] LABS: HEMATOCRIT 30.9 % (36.0-47.0); HEMOGLOBIN 9.8 g/dl (12.0-15.5); MEAN CORPUSCULAR HEMOGLOBIN 27.1 pg (27.0-33.0); MEAN CORPUSCULAR HGB CONC 31.7 g/dl (32.0-36.5); MEAN CORPUSCULAR VOLUME 85.6 fl (80.0-96.0); PLATELET COUNT, AUTOMATED 291 10^3/uL (150-450); RED BLOOD COUNT 3.61 10^6/uL (4.00-5.40); RED CELL DISTRIBUTION WIDTH 14.4 % (11.5-14.5); WHITE BLOOD COUNT 4.6 10^3/uL (4.0-10.0)
[2017-07-07 07:13] LABS: ANION GAP 6 MEQ/L (8-16); BLOOD UREA NITROGEN 4 MG/DL (7-18); CALCIUM LEVEL 8.1 MG/DL (8.5-10.1); CARBON DIOXIDE LEVEL 24 MEQ/L (21-32); CHLORIDE LEVEL 112 MEQ/L (98-107); CREATININE FOR GFR 0.76 MG/DL (0.55-1.30); GLOMERULAR FILTRATION RATE > 60.0 (>60); GLUCOSE, FASTING 80 MG/DL (70-100); MAGNESIUM LEVEL 2.5 MG/DL (1.8-2.4); POTASSIUM SERUM 3.8 MEQ/L (3.5-5.1); SODIUM LEVEL 142 MEQ/L (136-145)
== END 2017-07-07 06:30 | disposition left against medical advice (07) ==
LOC: M ED 11:28 → M ED INP 17:04 → M MS5PR 18:52
DX: R10.32 Left lower quadrant pain (principal); R11.0 Nausea; I10 Essential (primary) hypertension; F41.9 Anxiety disorder, unspecified; Z79.899 Other long term (current) drug therapy; Z79.01 Long term (current) use of anticoagulants; Z86.711 Personal history of pulmonary embolism; E66.01 Morbid (severe) obesity due to excess calories; Z88.0 Allergy status to penicillin
CPT/HCPCS: J2270

== ENCOUNTER 2017-07-18 13:35 | Emergency (ER) | payer OTHER ==
[2017-07-18 15:25] LABS: KETONE, URINE AUTO RFX NEGATIVE (NEGATIVE); MUCUS, URINE RFX SMALL (NEGATIVE); NITRITE, URINE AUTO RFX NEGATIVE (NEGATIVE); RBC, URINE AUTO RFX TNTC /HPF (0-3); SPECIFIC GRAVITY UR AUTO RFX 1.031 (1.002-1.035); SQUAM EPITHELIAL CELL UR AURFX 16 /HPF (0-6); WBC, URINE AUTO RFX 10 /HPF (0-3)
[2017-07-18 15:28] LABS: LEUKOCYTE ESTERASE UR AUTO RFX 1+ (NEGATIVE)
[2017-07-18 15:48] LABS: BASO % 0.3 % (0.0-1.0); EOS # 0.1 10^3/uL (0.0-0.50); EOS % 1.7 % (0.0-3.0); HEMATOCRIT 32.2 % (36.0-47.0); IMMATURE GRANULOCYTE % 0.6 % (0-3.0); LYMPH # 1.5 10^3/uL (1.5-4.5); LYMPH % 24.1 % (24.0-44.0); MEAN CORPUSCULAR HEMOGLOBIN 26.2 pg (27.0-33.0); MEAN CORPUSCULAR HGB CONC 31.1 g/dl (32.0-36.5); MEAN CORPUSCULAR VOLUME 84.5 fl (80.0-96.0); MONO # 0.6 10^3/uL (0.0-0.8); NEUTROPHILS # 4.1 10^3/uL (1.8-7.7); NEUTROPHILS % 64.3 % (36.0-66.0); PLATELET COUNT, AUTOMATED 307 10^3/uL (150-450); RED BLOOD COUNT 3.81 10^6/uL (4.00-5.40); RED CELL DISTRIBUTION WIDTH 14.5 % (11.5-14.5); WHITE BLOOD COUNT 6.3 10^3/uL (4.0-10.0)
[2017-07-18] MEDS: ONDANSETRON 4MG/2ML VIAL (J2405) IV (15:50)
[2017-07-18] MEDS: KETOROLAC 30 MG/ML VIAL (J1885) IV (15:50)
[2017-07-18] MEDS: NS 1,000 ML IV (15:50)
[2017-07-18 16:10] LABS: CONTROL LINE UCG INT CTR LINE PRESENT; URINE PREG TEST NEGATIVE (NEGATIVE)
[2017-07-18 16:11] LABS: ALBUMIN 3.3 GM/DL (3.2-5.2); ALKALINE PHOSPHATASE 105 U/L (45-117); ALT/SGPT 45 U/L (12-78); ANION GAP 5 MEQ/L (8-16); AST/SGOT 32 U/L (7-37); BILIRUBIN,DIRECT < 0.1 MG/DL (0.0-0.2); BILIRUBIN,TOTAL 0.2 MG/DL (0.2-1.0); BLOOD UREA NITROGEN 14 MG/DL (7-18); CALCIUM LEVEL 8.5 MG/DL (8.5-10.1); CARBON DIOXIDE LEVEL 24 MEQ/L (21-32); CHLORIDE LEVEL 109 MEQ/L (98-107); CREATININE FOR GFR 0.72 MG/DL (0.55-1.30); GLOMERULAR FILTRATION RATE > 60.0 (>60); GLUCOSE, FASTING 100 MG/DL (70-100); LIPASE 97 U/L (73-393); POTASSIUM SERUM 3.9 MEQ/L (3.5-5.1); SODIUM LEVEL 138 MEQ/L (136-145); TOTAL PROTEIN 7.4 GM/DL (6.4-8.2)
[2017-07-18] MEDS: MORPHINE 4 MG/ML 1ML VIAL/SYRINGE (J2270) IV (16:40)
== END 2017-07-18 17:52 | disposition home or self-care (01) ==
LOC: M ED 13:35
DX: N30.90 Cystitis, unspecified without hematuria (principal); I10 Essential (primary) hypertension; J45.909 Unspecified asthma, uncomplicated; M54.9 Dorsalgia, unspecified; F41.9 Anxiety disorder, unspecified; F32.9 Major depressive disorder, single episode, unspecified; F90.9 Attention-deficit hyperactivity disorder, unspecified type; K59.00 Constipation, unspecified; Z87.442 Personal history of urinary calculi; K57.92 Diverticulitis of intestine, part unspecified, without perforation or abscess without bleeding; K76.0 Fatty (change of) liver, not elsewhere classified; Z87.440 Personal history of urinary (tract) infections; Z87.42 Personal history of other diseases of the female genital tract; Z79.899 Other long term (current) drug therapy; Z79.01 Long term (current) use of anticoagulants; Z88.0 Allergy status to penicillin
CPT/HCPCS: J2270

== ENCOUNTER 2017-07-23 12:59 | Emergency (ER) | payer OTHER ==
[2017-07-23 14:15] LABS: KETONE, URINE AUTO RFX NEGATIVE (NEGATIVE); MUCUS, URINE RFX SMALL (NEGATIVE); NITRITE, URINE AUTO RFX NEGATIVE (NEGATIVE); RBC, URINE AUTO RFX TNTC /HPF (0-3); SQUAM EPITHELIAL CELL UR AURFX 8 /HPF (0-6); WBC, URINE AUTO RFX 10 /HPF (0-3)
[2017-07-23 14:16] LABS: LEUKOCYTE ESTERASE UR AUTO RFX 3+ (NEGATIVE)
[2017-07-23] MEDS: MORPHINE 4 MG/ML 1ML VIAL/SYRINGE (J2270) IV (14:28)
[2017-07-23] MEDS: ONDANSETRON 4MG/2ML VIAL (J2405) IV (14:28)
[2017-07-23] MEDS: NS 1,000 ML IV (14:28)
[2017-07-23 14:30] LABS: BASO % 0.2 % (0.0-1.0); EOS # 0.2 10^3/uL (0.0-0.50); HEMATOCRIT 33.9 % (36.0-47.0); HEMOGLOBIN 10.8 g/dl (12.0-15.5); IMMATURE GRANULOCYTE % 0.6 % (0-3.0); LYMPH # 2.4 10^3/uL (1.5-4.5); LYMPH % 28.2 % (24.0-44.0); MEAN CORPUSCULAR HEMOGLOBIN 26.4 pg (27.0-33.0); MEAN CORPUSCULAR HGB CONC 31.9 g/dl (32.0-36.5); MEAN CORPUSCULAR VOLUME 82.9 fl (80.0-96.0); MONO # 0.7 10^3/uL (0.0-0.8); MONO % 8.4 % (0.0-5.0); NEUTROPHILS # 5.1 10^3/uL (1.8-7.7); NEUTROPHILS % 60.6 % (36.0-66.0); PLATELET COUNT, AUTOMATED 421 10^3/uL (150-450); RED BLOOD COUNT 4.09 10^6/uL (4.00-5.40); RED CELL DISTRIBUTION WIDTH 14.6 % (11.5-14.5); WHITE BLOOD COUNT 8.4 10^3/uL (4.0-10.0)
[2017-07-23 14:55] LABS: ALBUMIN 3.8 GM/DL (3.2-5.2); ALBUMIN/GLOBULIN RATIO 0.95 (1.00-1.93); ALKALINE PHOSPHATASE 115 U/L (45-117); ALT/SGPT 52 U/L (12-78); AMYLASE 46 U/L (25-115); ANION GAP 5 MEQ/L (8-16); AST/SGOT 36 U/L (7-37); BILIRUBIN,DIRECT < 0.1 MG/DL (0.0-0.2); BILIRUBIN,TOTAL 0.2 MG/DL (0.2-1.0); BLOOD UREA NITROGEN 14 MG/DL (7-18); CALCIUM LEVEL 8.7 MG/DL (8.5-10.1); CARBON DIOXIDE LEVEL 26 MEQ/L (21-32); CHLORIDE LEVEL 109 MEQ/L (98-107); CREATININE FOR GFR 0.79 MG/DL (0.55-1.30); GLOMERULAR FILTRATION RATE > 60.0 (>60); GLUCOSE, FASTING 93 MG/DL (70-100); LIPASE 119 U/L (73-393); POTASSIUM SERUM 4.3 MEQ/L (3.5-5.1); SODIUM LEVEL 140 MEQ/L (136-145); TOTAL PROTEIN 7.8 GM/DL (6.4-8.2)
[2017-07-23 16:33] LABS: CONTROL LINE HCG INT CTR LINE PRESENT; HCG, SERUM QUALITATIVE NEGATIVE (NEGATIVE)
== END 2017-07-23 15:14 | disposition home or self-care (01) ==
LOC: M ED 12:59
DX: R10.11 Right upper quadrant pain (principal); R10.31 Right lower quadrant pain; R11.2 Nausea with vomiting, unspecified; I10 Essential (primary) hypertension; K57.90 Diverticulosis of intestine, part unspecified, without perforation or abscess without bleeding; Z86.718 Personal history of other venous thrombosis and embolism; Z96.0 Presence of urogenital implants; Z88.0 Allergy status to penicillin; Z79.899 Other long term (current) drug therapy; Z79.2 Long term (current) use of antibiotics; Z79.01 Long term (current) use of anticoagulants; Z87.442 Personal history of urinary calculi
CPT/HCPCS: J2270

== ENCOUNTER 2017-07-31 06:36 | Emergency (ER) | payer OTHER ==
[2017-07-31 07:28] LABS: BASO % 0.5 % (0.0-1.0); EOS # 0.1 10^3/uL (0.0-0.50); EOS % 1.5 % (0.0-3.0); HEMATOCRIT 32.5 % (36.0-47.0); HEMOGLOBIN 9.9 g/dl (12.0-15.5); IMMATURE GRANULOCYTE % 0.7 % (0-3.0); LYMPH # 1.9 10^3/uL (1.5-4.5); LYMPH % 31.7 % (24.0-44.0); MEAN CORPUSCULAR HEMOGLOBIN 26.1 pg (27.0-33.0); MEAN CORPUSCULAR HGB CONC 30.5 g/dl (32.0-36.5); MEAN CORPUSCULAR VOLUME 85.5 fl (80.0-96.0); MONO # 0.5 10^3/uL (0.0-0.8); MONO % 8.8 % (0.0-5.0); NEUTROPHILS # 3.4 10^3/uL (1.8-7.7); NEUTROPHILS % 56.8 % (36.0-66.0); PLATELET COUNT, AUTOMATED 365 10^3/uL (150-450); RED CELL DISTRIBUTION WIDTH 14.6 % (11.5-14.5)
[2017-07-31 07:42] LABS: INR 0.99; PROTHROMBIN TIME 13.2 SECONDS (12.4-14.5)
[2017-07-31 07:43] LABS: PARTIAL THROMBOPLASTIN TIME 32.2 SECONDS (26.8-37.9)
[2017-07-31 07:49] LABS: CONTROL LINE HCG INT CTR LINE PRESENT; HCG, SERUM QUALITATIVE NEGATIVE (NEGATIVE)
[2017-07-31 07:58] LABS: ALBUMIN 3.3 GM/DL (3.2-5.2); ALBUMIN/GLOBULIN RATIO 0.89 (1.00-1.93); ALKALINE PHOSPHATASE 105 U/L (45-117); ALT/SGPT 40 U/L (12-78); ANION GAP 6 MEQ/L (8-16); AST/SGOT 28 U/L (7-37); BILIRUBIN,DIRECT < 0.1 MG/DL (0.0-0.2); BILIRUBIN,TOTAL 0.3 MG/DL (0.2-1.0); BLOOD UREA NITROGEN 18 MG/DL (7-18); CALCIUM LEVEL 8.1 MG/DL (8.5-10.1); CARBON DIOXIDE LEVEL 25 MEQ/L (21-32); CHLORIDE LEVEL 110 MEQ/L (98-107); CPK CREATINE PHOSPHOKINASE 81 U/L (26-192); CREATININE FOR GFR 0.91 MG/DL (0.55-1.30); GLOMERULAR FILTRATION RATE > 60.0 (>60); GLUCOSE, FASTING 96 MG/DL (70-100); LIPASE 95 U/L (73-393); POTASSIUM SERUM 4.3 MEQ/L (3.5-5.1); SODIUM LEVEL 141 MEQ/L (136-145); TROPONIN I < 0.02 NG/ML (< 0.10)
[2017-07-31 07:59] LABS: CK-MB VALUE MASS < 1.0 NG/ML (<3.6); MB/CK RELATIVE INDEX 1.23 (< OR =4)
[2017-07-31] MEDS: ONDANSETRON 4MG/2ML VIAL (J2405) IV (08:32)
[2017-07-31] MEDS: MORPHINE 4 MG/ML 1ML VIAL/SYRINGE (J2270) IV (08:33)
[2017-07-31] MEDS ORDERED: ISOVUE-370 76% 100ML VIAL (Q9967) As Ordered (09:16)
[2017-07-31] MEDS: HYDROmorphone HCL 1 MG/ML SYRINGE (J1170) IV (10:21)
== END 2017-07-31 11:05 | disposition home or self-care (01) ==
LOC: M ED 06:36
DX: R07.1 Chest pain on breathing (principal); K76.0 Fatty (change of) liver, not elsewhere classified
CPT/HCPCS: J1170

== ENCOUNTER 2017-08-12 13:43 | Emergency (ER) | payer OTHER | END 2017-08-12 17:29 | disposition left against medical advice (07) | LOC: M ED 13:43 | DX: Z53.29 Procedure and treatment not carried out because of patient's decision for other reasons (principal) ==

== ENCOUNTER 2017-08-15 14:08 | Emergency (ER) | payer OTHER ==
[2017-08-15] MEDS: ONDANSETRON 4 MG ORAL DISINTEGRATING TAB (Q0162 PER 1MG) PO (15:45)
[2017-08-15] MEDS: ALBUTEROL SULFATE 2.5 MG/0.5 ML INH NEB SOLN NEB (15:46)
[2017-08-15 15:51] LABS: BASO % 0.2 % (0.0-1.0); EOS # 0.1 10^3/uL (0.0-0.50); EOS % 1.4 % (0.0-3.0); HEMATOCRIT 32.7 % (36.0-47.0); IMMATURE GRANULOCYTE % 0.5 % (0-3.0); LYMPH # 1.9 10^3/uL (1.5-4.5); LYMPH % 19.5 % (24.0-44.0); MEAN CORPUSCULAR HEMOGLOBIN 25.5 pg (27.0-33.0); MEAN CORPUSCULAR HGB CONC 30.6 g/dl (32.0-36.5); MEAN CORPUSCULAR VOLUME 83.4 fl (80.0-96.0); MONO # 0.5 10^3/uL (0.0-0.8); MONO % 5.5 % (0.0-5.0); NEUTROPHILS % 72.9 % (36.0-66.0); PLATELET COUNT, AUTOMATED 362 10^3/uL (150-450); RED BLOOD COUNT 3.92 10^6/uL (4.00-5.40); RED CELL DISTRIBUTION WIDTH 14.6 % (11.5-14.5); WHITE BLOOD COUNT 9.6 10^3/uL (4.0-10.0)
[2017-08-15] MEDS: BENZONATATE 100 MG CAP PO (15:57)
[2017-08-15] MEDS: MORPHINE 4 MG/ML 1ML VIAL/SYRINGE (J2270) IM (15:57)
[2017-08-15 16:16] LABS: ALBUMIN 3.4 GM/DL (3.2-5.2); ALBUMIN/GLOBULIN RATIO 0.94 (1.00-1.93); ALKALINE PHOSPHATASE 104 U/L (45-117); ALT/SGPT 41 U/L (12-78); ANION GAP 7 MEQ/L (8-16); AST/SGOT 23 U/L (7-37); BILIRUBIN,DIRECT < 0.1 MG/DL (0.0-0.2); BILIRUBIN,TOTAL 0.2 MG/DL (0.2-1.0); BLOOD UREA NITROGEN 8 MG/DL (7-18); CALCIUM LEVEL 8.7 MG/DL (8.5-10.1); CARBON DIOXIDE LEVEL 26 MEQ/L (21-32); CHLORIDE LEVEL 107 MEQ/L (98-107); CREATININE FOR GFR 0.78 MG/DL (0.55-1.30); GLOMERULAR FILTRATION RATE > 60.0 (>60); GLUCOSE, FASTING 87 MG/DL (70-100); LIPASE 145 U/L (73-393); POTASSIUM SERUM 3.8 MEQ/L (3.5-5.1); SODIUM LEVEL 140 MEQ/L (136-145)
[2017-08-15 16:49] LABS: KETONE, URINE AUTO RFX NEGATIVE (NEGATIVE); MUCUS, URINE RFX SMALL (NEGATIVE); NITRITE, URINE AUTO RFX NEGATIVE (NEGATIVE); RBC, URINE AUTO RFX 0 /HPF (0-3); SPECIFIC GRAVITY UR AUTO RFX 1.009 (1.002-1.035); SQUAM EPITHELIAL CELL UR AURFX 4 /HPF (0-6); WBC, URINE AUTO RFX 1 /HPF (0-3)
[2017-08-15 17:44] LABS: LEUKOCYTE ESTERASE UR AUTO RFX TRACE (NEGATIVE)
== END 2017-08-15 18:27 | disposition left against medical advice (07) ==
LOC: M ED 14:08
DX: Z76.5 Malingerer [conscious simulation] (principal); R10.9 Unspecified abdominal pain; R11.2 Nausea with vomiting, unspecified; I10 Essential (primary) hypertension; K76.0 Fatty (change of) liver, not elsewhere classified; N83.209 Unspecified ovarian cyst, unspecified side; Z86.711 Personal history of pulmonary embolism; Z86.718 Personal history of other venous thrombosis and embolism; Z87.19 Personal history of other diseases of the digestive system; Z87.440 Personal history of urinary (tract) infections
CPT/HCPCS: J2270

== ENCOUNTER 2017-08-26 05:57 | Emergency (ER) | payer OTHER ==
[2017-08-26] MEDS: MORPHINE 4 MG/ML 1ML VIAL/SYRINGE (J2270) IV (07:40)
[2017-08-26] MEDS: NS 1,000 ML IV ×2 (07:40→11:44)
[2017-08-26] MEDS: ONDANSETRON 4MG/2ML VIAL (J2405) IV (07:40)
[2017-08-26 07:41] LABS: BASO % 0.3 % (0.0-1.0); EOS # 0.2 10^3/uL (0.0-0.50); EOS % 2.2 % (0.0-3.0); HEMATOCRIT 32.1 % (36.0-47.0); HEMOGLOBIN 9.9 g/dl (12.0-15.5); IMMATURE GRANULOCYTE % 1.2 % (0-3.0); LYMPH # 1.6 10^3/uL (1.5-4.5); LYMPH % 17.7 % (24.0-44.0); MEAN CORPUSCULAR HEMOGLOBIN 25.4 pg (27.0-33.0); MEAN CORPUSCULAR HGB CONC 30.8 g/dl (32.0-36.5); MEAN CORPUSCULAR VOLUME 82.3 fl (80.0-96.0); MONO # 0.6 10^3/uL (0.0-0.8); NEUTROPHILS # 6.6 10^3/uL (1.8-7.7); NEUTROPHILS % 71.6 % (36.0-66.0); PLATELET COUNT, AUTOMATED 417 10^3/uL (150-450); RED CELL DISTRIBUTION WIDTH 14.7 % (11.5-14.5); WHITE BLOOD COUNT 9.2 10^3/uL (4.0-10.0)
[2017-08-26 08:11] LABS: ALBUMIN 3.3 GM/DL (3.2-5.2); ALBUMIN/GLOBULIN RATIO 0.89 (1.00-1.93); ALKALINE PHOSPHATASE 110 U/L (45-117); ALT/SGPT 41 U/L (12-78); ANION GAP 11 MEQ/L (8-16); AST/SGOT 26 U/L (7-37); BILIRUBIN,DIRECT < 0.1 MG/DL (0.0-0.2); BILIRUBIN,TOTAL 0.4 MG/DL (0.2-1.0); BLOOD UREA NITROGEN 18 MG/DL (7-18); CALCIUM LEVEL 8.7 MG/DL (8.5-10.1); CARBON DIOXIDE LEVEL 24 MEQ/L (21-32); CHLORIDE LEVEL 106 MEQ/L (98-107); CREATININE FOR GFR 0.87 MG/DL (0.55-1.30); GLOMERULAR FILTRATION RATE > 60.0 (>60); GLUCOSE, FASTING 103 MG/DL (70-100); LIPASE 103 U/L (73-393); POTASSIUM SERUM 4.3 MEQ/L (3.5-5.1); SODIUM LEVEL 141 MEQ/L (136-145)
[2017-08-26 08:13] LABS: AMORPHOUS SEDIMENT RFX SMALL (NEGATIVE); KETONE, URINE AUTO RFX NEGATIVE (NEGATIVE); MUCUS, URINE RFX SMALL (NEGATIVE); NITRITE, URINE AUTO RFX NEGATIVE (NEGATIVE); RBC, URINE AUTO RFX TNTC /HPF (0-3); SPECIFIC GRAVITY UR AUTO RFX 1.008 (1.002-1.035); SQUAM EPITHELIAL CELL UR AURFX 2 /HPF (0-6); WBC, URINE AUTO RFX 4 /HPF (0-3)
[2017-08-26] MEDS: DICYCLOMINE INJ 20MG/2ML (J0500) IM (09:37)
[2017-08-26 10:01] LABS: LEUKOCYTE ESTERASE UR AUTO RFX 1+ (NEGATIVE)
[2017-08-26] MEDS: HYDROmorphone HCL 1 MG/ML SYRINGE (J1170) IV (10:45)
== END 2017-08-26 13:33 | disposition home or self-care (01) ==
LOC: M ED 05:57
DX: R10.31 Right lower quadrant pain (principal); R31.0 Gross hematuria
CPT/HCPCS: J1170

== ENCOUNTER 2017-09-02 06:44 | Emergency (ER) | payer OTHER ==
[2017-09-02] MEDS: BENZONATATE 100 MG CAP PO (07:36)
[2017-09-02] MEDS: NS 1,000 ML IV (07:36)
[2017-09-02 07:39] LABS: PROTEIN, URINE MANUAL REFLEX 2+ mg/dL (NEGATIVE)
[2017-09-02 07:40] LABS: BILIRUBIN, URINE MANUAL NEGATIVE (NEGATIVE); BLOOD URINE MANUAL RFX POSITIVE (NEGATIVE); GLUCOSE, URINE (UA) MANUAL NEGATIVE (NEGATIVE); KETONE, URINE MANUAL NEGATIVE (NEGATIVE); NITRITE, URINE MANUAL RFX NEGATIVE (NEGATIVE); UROBILINOGEN, URINE MANUAL NORMAL (NORMAL)
[2017-09-02 07:41] LABS: MICROSCOPIC EXAM PERFORMED; SQUAMOUS EPITHELIAL CELL URINE NONE SEEN /hpf (SMALL AMT)
[2017-09-02 07:42] LABS: BACTERIA, URINE SMALL AMOUNT; HYALINE CAST, URINE NONE SEEN /lpf (0-1)
[2017-09-02 07:57] LABS: BASO % 0.4 % (0.0-1.0); EOS # 0.1 10^3/uL (0.0-0.50); EOS % 1.1 % (0.0-3.0); HEMATOCRIT 32.1 % (36.0-47.0); HEMOGLOBIN 9.9 g/dl (12.0-15.5); IMMATURE GRANULOCYTE % 0.7 % (0-3.0); LYMPH # 1.8 10^3/uL (1.5-4.5); LYMPH % 20.8 % (24.0-44.0); MEAN CORPUSCULAR HEMOGLOBIN 25.3 pg (27.0-33.0); MEAN CORPUSCULAR HGB CONC 30.8 g/dl (32.0-36.5); MEAN CORPUSCULAR VOLUME 82.1 fl (80.0-96.0); MONO # 0.6 10^3/uL (0.0-0.8); PLATELET COUNT, AUTOMATED 365 10^3/uL (150-450); RED BLOOD COUNT 3.91 10^6/uL (4.00-5.40); RED CELL DISTRIBUTION WIDTH 15.8 % (11.5-14.5); WHITE BLOOD COUNT 8.5 10^3/uL (4.0-10.0)
[2017-09-02 08:12] LABS: ANION GAP 10 MEQ/L (8-16); BLOOD UREA NITROGEN 16 MG/DL (7-18); CALCIUM LEVEL 8.5 MG/DL (8.5-10.1); CARBON DIOXIDE LEVEL 24 MEQ/L (21-32); CHLORIDE LEVEL 109 MEQ/L (98-107); CREATININE FOR GFR 0.93 MG/DL (0.55-1.30); GLOMERULAR FILTRATION RATE > 60.0 (>60); GLUCOSE, FASTING 106 MG/DL (70-100); POTASSIUM SERUM 3.6 MEQ/L (3.5-5.1); SODIUM LEVEL 143 MEQ/L (136-145)
[2017-09-02 08:14] LABS: INR 0.94; PARTIAL THROMBOPLASTIN TIME 26.9 SECONDS (26.8-37.9); PROTHROMBIN TIME 12.6 SECONDS (12.4-14.5)
== END 2017-09-02 09:02 | disposition home or self-care (01) ==
LOC: M ED 06:44
DX: R10.9 Unspecified abdominal pain (principal); R05 Cough; D64.9 Anemia, unspecified; Z88.0 Allergy status to penicillin; Z79.899 Other long term (current) drug therapy; Z98.890 Other specified postprocedural states
CPT/HCPCS: 80048

== ENCOUNTER 2017-09-05 14:33 | Emergency (ER) | payer OTHER ==
[2017-09-05] MEDS ORDERED: NS 1,000 ML IV (15:15)
[2017-09-05 15:25] LABS: KETONE, URINE AUTO RFX NEGATIVE (NEGATIVE); MUCUS, URINE RFX SMALL (NEGATIVE); NITRITE, URINE AUTO RFX NEGATIVE (NEGATIVE); RBC, URINE AUTO RFX TNTC /HPF (0-3); SPECIFIC GRAVITY UR AUTO RFX 1.021 (1.002-1.035); SQUAM EPITHELIAL CELL UR AURFX 7 /HPF (0-6); WBC, URINE AUTO RFX 9 /HPF (0-3)
[2017-09-05 15:26] LABS: LEUKOCYTE ESTERASE UR AUTO RFX 1+ (NEGATIVE)
[2017-09-05 15:27] LABS: BASO % 0.3 % (0.0-1.0); EOS % 0.4 % (0.0-3.0); HEMATOCRIT 31.6 % (36.0-47.0); HEMOGLOBIN 9.8 g/dl (12.0-15.5); IMMATURE GRANULOCYTE % 0.3 % (0-3.0); LYMPH # 1.6 10^3/uL (1.5-4.5); LYMPH % 20.5 % (24.0-44.0); MEAN CORPUSCULAR HEMOGLOBIN 25.3 pg (27.0-33.0); MEAN CORPUSCULAR VOLUME 81.4 fl (80.0-96.0); MONO # 0.5 10^3/uL (0.0-0.8); MONO % 6.8 % (0.0-5.0); NEUTROPHILS # 5.5 10^3/uL (1.8-7.7); NEUTROPHILS % 71.7 % (36.0-66.0); PLATELET COUNT, AUTOMATED 335 10^3/uL (150-450); RED BLOOD COUNT 3.88 10^6/uL (4.00-5.40); RED CELL DISTRIBUTION WIDTH 15.9 % (11.5-14.5); WHITE BLOOD COUNT 7.7 10^3/uL (4.0-10.0)
[2017-09-05] MEDS: NS 1,000 ML IV (15:35)
[2017-09-05] MEDS: ONDANSETRON 4MG/2ML VIAL (J2405) IV (15:39)
[2017-09-05] MEDS: MORPHINE 4 MG/ML 1ML VIAL/SYRINGE (J2270) IV (15:39)
[2017-09-05 16:03] LABS: ALBUMIN 3.6 GM/DL (3.2-5.2); ALBUMIN/GLOBULIN RATIO 0.88 (1.00-1.93); ALKALINE PHOSPHATASE 102 U/L (45-117); ALT/SGPT 60 U/L (12-78); ANION GAP 10 MEQ/L (8-16); AST/SGOT 45 U/L (7-37); BILIRUBIN,TOTAL 0.4 MG/DL (0.2-1.0); BLOOD UREA NITROGEN 14 MG/DL (7-18); CALCIUM LEVEL 8.5 MG/DL (8.5-10.1); CARBON DIOXIDE LEVEL 25 MEQ/L (21-32); CHLORIDE LEVEL 109 MEQ/L (98-107); CREATININE FOR GFR 0.84 MG/DL (0.55-1.30); GLOMERULAR FILTRATION RATE > 60.0 (>60); GLUCOSE, FASTING 104 MG/DL (70-100); LIPASE 123 U/L (73-393); POTASSIUM SERUM 3.3 MEQ/L (3.5-5.1); SODIUM LEVEL 144 MEQ/L (136-145); TOTAL PROTEIN 7.7 GM/DL (6.4-8.2)
[2017-09-05] MEDS: POTASSIUM CHLORIDE 10 MEQ SR TABLET PO (17:10)
[2017-09-05] MEDS: PHENAZOPYRIDINE 100 MG TAB PO (17:10)
[2017-09-05] MEDS: TAMSULOSIN 0.4 MG CAP PO (17:10)
[2017-09-05] MEDS: NITROFURANTOIN (MACROBID) 100 MG CAP PO (17:10)
== END 2017-09-05 17:12 | disposition home or self-care (01) ==
LOC: M ED 14:33
DX: D64.9 Anemia, unspecified (principal); N39.0 Urinary tract infection, site not specified; K76.0 Fatty (change of) liver, not elsewhere classified; E87.6 Hypokalemia; R31.0 Gross hematuria; I10 Essential (primary) hypertension; Z86.711 Personal history of pulmonary embolism; J45.909 Unspecified asthma, uncomplicated; K52.9 Noninfective gastroenteritis and colitis, unspecified; K57.30 Diverticulosis of large intestine without perforation or abscess without bleeding; Z87.440 Personal history of urinary (tract) infections; Z87.442 Personal history of urinary calculi; Z79.899 Other long term (current) drug therapy; Z88.0 Allergy status to penicillin
CPT/HCPCS: J2270

== ENCOUNTER 2017-09-12 14:52 | Emergency (ER) | payer OTHER ==
[2017-09-12 15:53] LABS: ABG BASE EXCESS 1.1 (-2.0-2.0); ABG HCO3 24.5 MEQ/L (22.0-26.0); ABG O2 SATURATION 98.2 % (95.0-99.0); ABG PARTIAL PRESSURE CO2 34.9 mmHg (35.0-45.0); ABG PARTIAL PRESSURE O2 98.4 mmHg (75.0-100.0); ABG STANDARD HCO3 25.4 MEQ/L (22.0-26.0); ABG TOTAL CO2 25.6 MEQ/L (22.0-29.0); ABG pH (ARTERIAL) 7.465 UNITS (7.350-7.450)
[2017-09-12] MEDS: KETOROLAC 60 MG/2 ML VIAL (J1885) IM (16:30)
== END 2017-09-12 16:45 | disposition left against medical advice (07) ==
LOC: M ED 14:52
DX: R07.9 Chest pain, unspecified (principal); F11.20 Opioid dependence, uncomplicated; E66.9 Obesity, unspecified; Z86.711 Personal history of pulmonary embolism; Z72.0 Tobacco use; Z53.21 Procedure and treatment not carried out due to patient leaving prior to being seen by health care provider; Z79.899 Other long term (current) drug therapy; Z88.0 Allergy status to penicillin
CPT/HCPCS: 93005

== ENCOUNTER 2017-09-18 14:10 | Emergency (ER) | payer OTHER ==
[2017-09-18 15:13] LABS: HEMATOCRIT 33.7 % (36.0-47.0); HEMOGLOBIN 10.1 g/dl (12.0-15.5); MEAN CORPUSCULAR HEMOGLOBIN 24.5 pg (27.0-33.0); MEAN CORPUSCULAR VOLUME 81.8 fl (80.0-96.0); PLATELET COUNT, AUTOMATED 363 10^3/uL (150-450); RED BLOOD COUNT 4.12 10^6/uL (4.00-5.40); RED CELL DISTRIBUTION WIDTH 15.1 % (11.5-14.5)
[2017-09-18 15:19] LABS: CONTROL LINE HCG INT CTR LINE PRESENT; HCG, SERUM QUALITATIVE NEGATIVE (NEGATIVE)
[2017-09-18 15:22] LABS: ANION GAP 8 MEQ/L (8-16); BLOOD UREA NITROGEN 12 MG/DL (7-18); CALCIUM LEVEL 8.6 MG/DL (8.5-10.1); CARBON DIOXIDE LEVEL 27 MEQ/L (21-32); CHLORIDE LEVEL 107 MEQ/L (98-107); GLOMERULAR FILTRATION RATE > 60.0 (>60); GLUCOSE, FASTING 90 MG/DL (70-100); POTASSIUM SERUM 3.8 MEQ/L (3.5-5.1); SODIUM LEVEL 142 MEQ/L (136-145)
[2017-09-18] MEDS ORDERED: ISOVUE-370 76% 100ML VIAL (Q9967) As Ordered (15:26)
[2017-09-18] MEDS: MORPHINE 2 MG/ML 1ML SYRINGE (J2270) IV (15:51)
[2017-09-18] MEDS: NORCO, ANEXSIA 5/325MG TABLET (HYDROcodone/ACETAMINOPHEN) PO (17:04)
== END 2017-09-18 17:14 | disposition home or self-care (01) ==
LOC: M ED 14:10
DX: R07.89 Other chest pain (principal); I10 Essential (primary) hypertension; Z87.442 Personal history of urinary calculi; Z79.899 Other long term (current) drug therapy; Z88.0 Allergy status to penicillin
CPT/HCPCS: Q9967

== ENCOUNTER 2018-03-01 17:32 | Emergency (ER) | payer OTHER ==
[2018-03-01 18:18] LABS: BASO % 0.4 % (0.0-1.0); EOS # 0.2 10^3/uL (0.0-0.50); HEMATOCRIT 34.9 % (36.0-47.0); HEMOGLOBIN 10.8 g/dl (12.0-15.5); IMMATURE GRANULOCYTE % 0.6 % (0-3.0); LYMPH # 1.8 10^3/uL (1.5-4.5); LYMPH % 21.6 % (24.0-44.0); MEAN CORPUSCULAR HEMOGLOBIN 27.3 pg (27.0-33.0); MEAN CORPUSCULAR HGB CONC 30.9 g/dl (32.0-36.5); MEAN CORPUSCULAR VOLUME 88.4 fl (80.0-96.0); MONO # 0.7 10^3/uL (0.0-0.8); NEUTROPHILS # 5.5 10^3/uL (1.8-7.7); NEUTROPHILS % 67.4 % (36.0-66.0); PLATELET COUNT, AUTOMATED 332 10^3/uL (150-450); RED BLOOD COUNT 3.95 10^6/uL (4.00-5.40); RED CELL DISTRIBUTION WIDTH 17.2 % (11.5-14.5); WHITE BLOOD COUNT 8.1 10^3/uL (4.0-10.0)
[2018-03-01 18:50] LABS: ALBUMIN 3.2 GM/DL (3.2-5.2); ALBUMIN/GLOBULIN RATIO 0.89 (1.00-1.93); ALKALINE PHOSPHATASE 109 U/L (45-117); ALT/SGPT 38 U/L (12-78); AMYLASE 45 U/L (25-115); ANION GAP 7 MEQ/L (8-16); AST/SGOT 26 U/L (7-37); BILIRUBIN,DIRECT < 0.1 MG/DL (0.0-0.2); BILIRUBIN,TOTAL 0.2 MG/DL (0.2-1.0); BLOOD UREA NITROGEN 12 MG/DL (7-18); CALCIUM LEVEL 8.2 MG/DL (8.5-10.1); CARBON DIOXIDE LEVEL 27 MEQ/L (21-32); CHLORIDE LEVEL 106 MEQ/L (98-107); CREATININE FOR GFR 0.98 MG/DL (0.55-1.30); GLOMERULAR FILTRATION RATE > 60.0 (>60); GLUCOSE, FASTING 82 MG/DL (70-100); LIPASE 122 U/L (73-393); POTASSIUM SERUM 4.3 MEQ/L (3.5-5.1); SODIUM LEVEL 140 MEQ/L (136-145); TOTAL PROTEIN 6.8 GM/DL (6.4-8.2)
[2018-03-01] MEDS: KETOROLAC 60 MG/2 ML VIAL (J1885) IM (20:36)
[2018-03-01 20:50] LABS: KETONE, URINE AUTO RFX NEGATIVE (NEGATIVE); LEUKOCYTE ESTERASE UR AUTO RFX 1+ (NEGATIVE); MUCUS, URINE RFX SMALL (NEGATIVE); NITRITE, URINE AUTO RFX NEGATIVE (NEGATIVE); RBC, URINE AUTO RFX TNTC /HPF (0-3); SPECIFIC GRAVITY UR AUTO RFX 1.021 (1.002-1.035); SQUAM EPITHELIAL CELL UR AURFX 20 /HPF (0-6); WBC, URINE AUTO RFX 4 /HPF (0-3)
== END 2018-03-01 22:11 | disposition home or self-care (01) ==
LOC: M ED 17:32
DX: N83.202 Unspecified ovarian cyst, left side (principal); N30.90 Cystitis, unspecified without hematuria; E11.9 Type 2 diabetes mellitus without complications; I10 Essential (primary) hypertension; J45.909 Unspecified asthma, uncomplicated; K76.0 Fatty (change of) liver, not elsewhere classified; Z86.711 Personal history of pulmonary embolism; Z88.0 Allergy status to penicillin; Z79.01 Long term (current) use of anticoagulants
CPT/HCPCS: J1885

== ENCOUNTER 2018-04-03 11:58 | Emergency (ER) | payer OTHER ==
[~2018-04-03] VITALS: Ht 154.9 cm; Wt 118.6 kg
[~2018-04-03 11:58] MED LIST changes: +ACET30TAB PO; +ALBU83IN NEB; +AMLO5TAB6 PO; +ATOM100C PO; +BACT800T5 PO; +BENZ200C70 PO; +CIPR-249 PO; +CIPR500T3 PO; +CLON0.2T PO; +FERR150C; +FLAG500T PO; +FLOM0.4C39 PO; +HYDR-3713 PO; +LAMO25TA4; +LORA2TAB9; +MACR100C43 PO; +METR-135 PO; +MIRA3350 PO; +MIRA33504 PO; +MIRT30TA3 PO; +NORC1TAB4 PO; +NORCO, PO; +OXYC1TAB23 PO; +PERC5TAB12 PO; +XARE20TA PO; +ZOFR4TAB14 PO
[2018-04-03] MEDS ORDERED: ZOLP5TAB PO (12:06)
[2018-04-03] MEDS ORDERED: PROP80CA PO (12:06)
[2018-04-03] MEDS ORDERED: HYDR-3363 PO (12:06)
[2018-04-03] MEDS ORDERED: GUAN1TA PO (12:06)
[2018-04-03] MEDS ORDERED: PERCOCET 5MG/325MG TAB PO ONE (13:45)
[2018-04-03] MEDS ORDERED: METHOCARBAMOL 1,000 MG/10 ML VIAL (J2800) IV ONE (13:45)
[2018-04-03] MEDS ORDERED: ENDO7.5T11 PO ×2 (13:49→13:56)
[2018-04-03] MEDS ORDERED: BACL1TAB9 PO (13:49)
[2018-04-03] MEDS ORDERED: METHOCARBAMOL 500 MG TAB PO ONE (14:15)
[2018-04-03 14:16] VITALS: BP 138/72
== END 2018-04-03 14:21 | disposition home or self-care (01) ==
LOC: M ED 11:58
DX: S16.1XXA Strain of muscle, fascia and tendon at neck level, initial encounter (principal); I10 Essential (primary) hypertension; X58.XXXA Exposure to other specified factors, initial encounter; Y92.098 Other place in other non-institutional residence as the place of occurrence of the external cause; K76.0 Fatty (change of) liver, not elsewhere classified; Z87.442 Personal history of urinary calculi; Z86.711 Personal history of pulmonary embolism; Z88.0 Allergy status to penicillin; Z79.899 Other long term (current) drug therapy; Z79.01 Long term (current) use of anticoagulants

== ENCOUNTER 2018-04-23 10:53 | Emergency (ER) | payer OTHER ==
[~2018-04-23] VITALS: Ht 154.9 cm; Wt 118.6 kg
[~2018-04-23 10:53] MED LIST changes: +BACL1TAB9 PO; +ENDO7.5T11 PO; +GUAN1TA PO; +HYDR-3363 PO; +PROP80CA PO; +ZOLP5TAB PO
[2018-04-23] MEDS ORDERED: KETOROLAC 30 MG/ML VIAL (J1885) IV ONE (11:15)
[2018-04-23] MEDS ORDERED: NS 1,000 ML IV ONE (11:15)
[2018-04-23] MEDS ORDERED: ONDANSETRON 4MG/2ML VIAL (J2405) IV ONE (11:15)
[2018-04-23 11:38] LABS: BASO % 0.3 % (0.0-1.0); EOS # 0.2 10^3/uL (0.0-0.50); HEMOGLOBIN 12.1 g/dl (12.0-15.5); LYMPH # 1.7 10^3/uL (1.5-4.5); LYMPH % 22.5 % (24.0-44.0); MEAN CORPUSCULAR HEMOGLOBIN 29.1 pg (27.0-33.0); MEAN CORPUSCULAR HGB CONC 32.7 g/dl (32.0-36.5); MEAN CORPUSCULAR VOLUME 88.9 fl (80.0-96.0); MONO # 0.5 10^3/uL (0.0-0.8); MONO % 6.6 % (0.0-5.0); NEUTROPHILS # 5.1 10^3/uL (1.8-7.7); NEUTROPHILS % 68.2 % (36.0-66.0); PLATELET COUNT, AUTOMATED 332 10^3/uL (150-450); RED BLOOD COUNT 4.16 10^6/uL (4.00-5.40); WHITE BLOOD COUNT 7.4 10^3/uL (4.0-10.0)
[2018-04-23] MEDS ORDERED: MORPHINE 4 MG/ML 1ML VIAL/SYRINGE (J2270) IV PRN (12:15)
[2018-04-23 12:37] LABS: BLOOD UREA NITROGEN 16 MG/DL (7-18); CALCIUM LEVEL 8.2 MG/DL (8.5-10.1); CARBON DIOXIDE LEVEL 27 MEQ/L (21-32); CHLORIDE LEVEL 106 MEQ/L (98-107); CREATININE FOR GFR 0.76 MG/DL (0.55-1.30); GLOMERULAR FILTRATION RATE > 60.0 (>60); GLUCOSE, FASTING 102 MG/DL (70-100); POTASSIUM SERUM 4.1 MEQ/L (3.5-5.1); SODIUM LEVEL 138 MEQ/L (136-145)
[2018-04-23] MEDS ORDERED: NORCOTAB PO (12:56)
[2018-04-23] MEDS ORDERED: CIPR-249 PO (12:56)
--- NOTE | 2018-04-23 12:59 | REP ---
CT ABDOMEN PELVIS WITHOUT CONTRAST: 04/23/2018. Comparison: 03/01/2018. Clinical history: Left flank pain. Findings: CT abdomen: Noncontrast protocol was followed. Lung bases are clear. No pericardial thickening or effusion. I see no hiatal hernia. Fatty infiltration of the liver with slight prominence the left hepatic lobe but no gross hepatomegaly. Clips from prior cholecystectomy. No biliary dilatation, mass or cyst. No perihepatic ascites. No splenomegaly or focal splenic lesion. Adrenal glands are normal. Pancreas grossly unremarkable. Kidneys show no stone or hydronephrosis. There is no gross mass or cyst. No perinephric edema. No aortic aneurysm or atherosclerotic calcifications. I see no periaortic or retroperitoneal pathologic sized lymphadenopathy. There are clips from prior appendectomy evident. The right, transverse and visible left colon show no acute finding. Visualized small bowel loops unremarkable. There is no mesenteric edema or adenopathy. Lung window review of all CT slices abdomen pelvis shows no perforation or free air. There is no hydroureter or ureteral stone on either side. The bone windows show no compression deformity of destructive lesion. Posterior elements intact. The visualized ribs were unremarkable. CT pelvis: Sacrum, SI joints, hips, pelvis and pubic symphysis were all unremarkable. In the deep pelvis the bladder is nearly empty. There is no dilated distal ureter or ureteral stone. No visible bladder stone. The right ovary shows a 2.1 cm dominant follicle. No mass or cyst in the left ovary. There is no pelvic or inguinal lymphadenopathy of pathologic size. No pelvic free fluid. Uterus anteverted, not enlarged. There is a distal left colonic and sigmoid diverticulosis without diverticulitis, pelvic ascites or other acute finding. There is no ventral or inguinal hernia. Impression: 1. No renal, ureteral or bladder stone. 2. Fatty infiltration liver without gross hepatoma or splenomegaly, ascites, adenopathy or intra-abdominal mass. There are three mild diverticulosis distal left colon and sigmoid without diverticulitis, colitis, stricture or mass in any segment of the colon. Prior appendectomy. 3. Prior cholecystectomy. No biliary dilatation. No aortic aneurysm. No intra-abdominal, pelvic or inguinal adenopathy. 4. No acute bony abnormality. Electronically Signed by Simon Collins MD 04/23/2018 05:49 P
[2018-04-23 13:05] VITALS: BP 112/56
== END 2018-04-23 13:18 | disposition home or self-care (01) ==
LOC: M ED 10:53
DX: N39.0 Urinary tract infection, site not specified (principal); R10.9 Unspecified abdominal pain; Z87.442 Personal history of urinary calculi; Z86.711 Personal history of pulmonary embolism; K52.9 Noninfective gastroenteritis and colitis, unspecified; K57.32 Diverticulitis of large intestine without perforation or abscess without bleeding; Z79.899 Other long term (current) drug therapy; Z88.0 Allergy status to penicillin
CPT/HCPCS: 74176; 80048; 81001; 81025; 85025; 87086; 96374; 96375; 99284; J1885; J2270; J2405

== ENCOUNTER 2018-05-21 10:25 | Emergency (ER) | payer OTHER ==
[~2018-05-21] VITALS: Ht 154.9 cm; Wt 119.7 kg
[2018-05-21] MEDS ORDERED: FLUTISP (10:34)
[2018-05-21] MEDS ORDERED: OXYCOD/APAP (10:34)
[2018-05-21] MEDS ORDERED: NS 1,000 ML IV ONE (11:00)
[2018-05-21 12:07] LABS: BASO % 0.3 % (0.0-1.0); EOS # 0.1 10^3/uL (0.0-0.50); EOS % 1.9 % (0.0-3.0); HEMATOCRIT 37.6 % (36.0-47.0); HEMOGLOBIN 12.4 g/dl (12.0-15.5); LYMPH # 1.3 10^3/uL (1.5-4.5); LYMPH % 19.4 % (24.0-44.0); MEAN CORPUSCULAR VOLUME 90.8 fl (80.0-96.0); MONO # 0.5 10^3/uL (0.0-0.8); MONO % 7.1 % (0.0-5.0); NEUTROPHILS # 4.9 10^3/uL (1.8-7.7); NEUTROPHILS % 70.7 % (36.0-66.0); PLATELET COUNT, AUTOMATED 315 10^3/uL (150-450); RED BLOOD COUNT 4.14 10^6/uL (4.00-5.40); WHITE BLOOD COUNT 6.9 10^3/uL (4.0-10.0)
[2018-05-21 12:18] LABS: INR 1.1; PROTHROMBIN TIME 14.3 SECONDS (12.1-14.4)
[2018-05-21 12:19] LABS: PARTIAL THROMBOPLASTIN TIME 30.5 SECONDS (25.4-37.6)
[2018-05-21 12:40] LABS: HCG, SERUM QUALITATIVE NEGATIVE (NEGATIVE)
[2018-05-21 12:42] LABS: ALBUMIN 3.5 GM/DL (3.2-5.2); ALT/SGPT 53 U/L (12-78); AMYLASE 44 U/L (25-115); BILIRUBIN,DIRECT < 0.1 MG/DL (0.0-0.2); BILIRUBIN,TOTAL 0.2 MG/DL (0.2-1.0); BLOOD UREA NITROGEN 11 MG/DL (7-18); CALCIUM LEVEL 8.1 MG/DL (8.5-10.1); CARBON DIOXIDE LEVEL 27 MEQ/L (21-32); CHLORIDE LEVEL 103 MEQ/L (98-107); CREATININE FOR GFR 0.82 MG/DL (0.55-1.30); GLOMERULAR FILTRATION RATE > 60.0 (>60); GLUCOSE, FASTING 100 MG/DL (70-100); LIPASE 116 U/L (73-393); POTASSIUM SERUM 3.9 MEQ/L (3.5-5.1); SODIUM LEVEL 138 MEQ/L (136-145); TOTAL PROTEIN 7.1 GM/DL (6.4-8.2)
[2018-05-21] MEDS ORDERED: MORPHINE 4 MG/ML 1ML VIAL/SYRINGE (J2270) IV ONE (13:00)
[2018-05-21] MEDS ORDERED: ISOVUE-370 76% 100ML VIAL (Q9967) As Ordered ONE (13:20)
--- NOTE | 2018-05-21 13:51 | REP ---
PELVIC ULTRASOUND: Real-time sonographic evaluation of the pelvis performed utilizing transabdominal technique. The patient declined endovaginal ultrasound. Urinary bladder is collapsed. The uterus measures 9.3 x 4.2 x 5.2 cm. The endometrial thickness is 8 mm. The right ovary measures 3.0 x 1.3 x 1.5 cm and the left ovary 2.4 x 1.6 x 1.9 cm. There is a paraovarian cyst on the right measuring 1 cm in diameter. A dominant follicle of the right ovary measures 9 mm. No free fluid is seen. There is no evidence of ovarian torsion. I see no other evidence of adnexal mass or free fluid. IMPRESSION: Transabdominal ultrasound shows a paraovarian cyst in the right adnexa 1 cm in diameter with a dominant follicle of the right ovary 9 mm. There is no torsion. The patient declined endovaginal ultrasound. There is no other evidence of adnexal mass or free fluid. Electronically Signed by Keenan Frederick MD 05/24/2018 11:25 A
--- NOTE | 2018-05-21 13:57 | REP ---
CT ABDOMEN AND PELVIS WITH IV BUT WITHOUT ORAL CONTRAST: HISTORY: Left lower quadrant pain. History of diverticulitis. COMPARISON CT STUDY: April 23, 2018. CT CONTRAST DOSE: 100 mL of intravenous Isovue 378. CT FINDINGS: Preliminary digital television news producer radiograph demonstrates a normal bowel gas pattern. There is a surgical clip in the right upper quadrant. The lung bases are clear on axial CT images. There is diffuse fatty infiltration of the liver. The gallbladder is surgically absent. The liver is not felt to be enlarged. No focal liver lesion is seen. No adrenal lesion is observed. Pancreas is unremarkable. The spleen is normal size homogeneous in texture. The kidneys enhance symmetrically and are morphologically intact. No renal stone or hydronephrosis is seen. No retroperitoneal mass or adenopathy is observed. The patient is status post appendectomy as well. No uterine or ovarian lesion is seen. There is minimal left colonic diverticulosis without CT evidence of diverticulitis. Urinary bladder is unremarkable. No abdominal wall defect is seen. Bone window settings show no bony destructive lesion. IMPRESSION: Post cholecystectomy and appendectomy. Fatty infiltration of the liver. Left colonic diverticulosis without CT evidence of diverticulitis. No acute intra-abdominal abnormality. Electronically Signed by Andrei Pace MD 05/21/2018 06:24 P
[2018-05-21] MEDS ORDERED: BACT800T5 PO (14:32)
[2018-05-21 14:33] VITALS: BP 138/90
[2018-05-21 15:08] LABS: CHLAMYDIA DNA AMPLIFICATION NEGATIVE (NEGATIVE); GC DNA AMPLIFICATION NEGATIVE (NEGATIVE)
[2018-05-31] MEDS ORDERED: GABA-843 (10:43)
== END 2018-05-21 14:46 | disposition home or self-care (01) ==
LOC: M ED 10:25
DX: N30.00 Acute cystitis without hematuria (principal); N93.9 Abnormal uterine and vaginal bleeding, unspecified; N83.299 Other ovarian cyst, unspecified side; I10 Essential (primary) hypertension; J45.909 Unspecified asthma, uncomplicated; K52.9 Noninfective gastroenteritis and colitis, unspecified; K76.0 Fatty (change of) liver, not elsewhere classified; K57.32 Diverticulitis of large intestine without perforation or abscess without bleeding; Z86.718 Personal history of other venous thrombosis and embolism; Z86.711 Personal history of pulmonary embolism; Z79.899 Other long term (current) drug therapy; Z88.0 Allergy status to penicillin
CPT/HCPCS: 36415; 74177; 76856; 80048; 80076; 81001; 82150; 83690; 84703; 85025; 85610; 85730; 86850; 86900; 86901; 87086; 87491; 87591; 93976; 96361; 96374; 99284; J2270; Q9967

== ENCOUNTER 2018-05-31 10:35 | Emergency (ER) | payer OTHER ==
[~2018-05-31] VITALS: Ht 154.9 cm; Wt 120.6 kg
[~2018-05-31 10:35] MED LIST changes: +FLUTISP; +OXYCOD/APAP
[2018-05-31] MEDS ORDERED: GABA-843 PO (10:43)
[2018-05-31] MEDS ORDERED: OXYCOD/APAP (10:43)
[2018-05-31 11:35] LABS: BASO % 0.3 % (0.0-1.0); EOS # 0.2 10^3/uL (0.0-0.50); EOS % 2.8 % (0.0-3.0); HEMATOCRIT 38.7 % (36.0-47.0); HEMOGLOBIN 12.8 g/dl (12.0-15.5); LYMPH # 1.7 10^3/uL (1.5-4.5); LYMPH % 23.1 % (24.0-44.0); MEAN CORPUSCULAR HEMOGLOBIN 30.5 pg (27.0-33.0); MEAN CORPUSCULAR HGB CONC 33.1 g/dl (32.0-36.5); MEAN CORPUSCULAR VOLUME 92.4 fl (80.0-96.0); MONO # 0.5 10^3/uL (0.0-0.8); MONO % 7.3 % (0.0-5.0); NEUTROPHILS # 4.7 10^3/uL (1.8-7.7); NEUTROPHILS % 65.7 % (36.0-66.0); PLATELET COUNT, AUTOMATED 298 10^3/uL (150-450); RED BLOOD COUNT 4.19 10^6/uL (4.00-5.40); WHITE BLOOD COUNT 7.2 10^3/uL (4.0-10.0)
[2018-05-31 12:11] LABS: ALBUMIN 3.8 GM/DL (3.2-5.2); ALT/SGPT 67 U/L (12-78); BILIRUBIN,DIRECT 0.1 MG/DL (0.0-0.2); BILIRUBIN,TOTAL 0.2 MG/DL (0.2-1.0); BLOOD UREA NITROGEN 14 MG/DL (7-18); CALCIUM LEVEL 8.8 MG/DL (8.5-10.1); CARBON DIOXIDE LEVEL 27 MEQ/L (21-32); CHLORIDE LEVEL 103 MEQ/L (98-107); GLOMERULAR FILTRATION RATE > 60.0 (>60); GLUCOSE, FASTING 100 MG/DL (70-100); LIPASE 110 U/L (73-393); POTASSIUM SERUM 4.4 MEQ/L (3.5-5.1); SODIUM LEVEL 137 MEQ/L (136-145); TOTAL PROTEIN 7.6 GM/DL (6.4-8.2)
--- NOTE | 2018-05-31 12:33 | REP ---
CT ABDOMEN AND PELVIS WITHOUT CONTRAST: CT abdomen and pelvis is performed without oral or IV contrast. Sagittal and coronal reconstruction images are performed. Visualized lung bases are clear. The liver demonstrates diffuse fatty infiltration. Patient has had a prior cholecystectomy. I do not see evidence of biliary dilatation. The spleen, adrenals, pancreas, and kidneys are unremarkable. There is on hydroureteronephrosis. No bladder, ureteral or renal calculus is seen. There is no abdominal aortic aneurysm. There is no adenopathy. There is no free air or free fluid. There is no bowel wall thickening. Patient has had a prior appendectomy. No pelvic mass is seen. There are a few sigmoid diverticula present without evidence of acute diverticulitis. IMPRESSION: Diffuse fatty infiltration of the liver. Patient status post appendectomy and cholecystectomy. A few sigmoid diverticula. No acute abnormalities. Electronically Signed by Keenan Frederick MD 06/02/2018 11:05 A
[2018-05-31 12:47] VITALS: BP 108/51
[2018-05-31] MEDS ORDERED: BACT800T5 PO (12:54)
== END 2018-05-31 13:03 | disposition home or self-care (01) ==
LOC: M ED 10:35
DX: N30.00 Acute cystitis without hematuria (principal); K57.32 Diverticulitis of large intestine without perforation or abscess without bleeding; I10 Essential (primary) hypertension; Z87.442 Personal history of urinary calculi; Z86.711 Personal history of pulmonary embolism; K52.9 Noninfective gastroenteritis and colitis, unspecified; K76.0 Fatty (change of) liver, not elsewhere classified; Z96.0 Presence of urogenital implants; Z79.899 Other long term (current) drug therapy; Z88.0 Allergy status to penicillin; Z88.6 Allergy status to analgesic agent

== ENCOUNTER 2018-06-12 10:37 | Emergency (ER) | payer OTHER ==
[~2018-06-12] VITALS: Ht 154.9 cm; Wt 118.6 kg
[~2018-06-12 10:37] MED LIST changes: +ACET-716 PO; -ACET30TAB PO; +GABA-843 PO; +HYDR-3715 PO; -NORC1TAB4 PO; +NORC1TAB7 PO; -NORCOTAB PO; -PRAD150C PO; +PRAD150C6 PO
[2018-06-12] MEDS ORDERED: ONDA4TAB6 PO ×2 (10:46→12:32)
[2018-06-12] MEDS ORDERED: DICY20TA PO (10:46)
[2018-06-12] MEDS ORDERED: LORA-243 PO (10:46)
[2018-06-12] MEDS ORDERED: FERR1TAB8 PO (10:46)
[2018-06-12] MEDS ORDERED: METOCLOPRAMIDE 10 MG TAB PO ONE (11:00)
[2018-06-12] MEDS ORDERED: DICYCLOMINE INJ 20MG/2ML (J0500) IM ONE (11:00)
[2018-06-12 11:30] LABS: BASO % 0.3 % (0.0-1.0); EOS # 0.2 10^3/uL (0.0-0.50); EOS % 3.3 % (0.0-3.0); HEMATOCRIT 36.9 % (36.0-47.0); HEMOGLOBIN 12.4 g/dl (12.0-15.5); LYMPH # 1.5 10^3/uL (1.5-4.5); LYMPH % 22.4 % (24.0-44.0); MEAN CORPUSCULAR HEMOGLOBIN 30.5 pg (27.0-33.0); MEAN CORPUSCULAR HGB CONC 33.6 g/dl (32.0-36.5); MEAN CORPUSCULAR VOLUME 90.9 fl (80.0-96.0); MONO # 0.6 10^3/uL (0.0-0.8); NEUTROPHILS # 4.5 10^3/uL (1.8-7.7); NEUTROPHILS % 65.6 % (36.0-66.0); PLATELET COUNT, AUTOMATED 300 10^3/uL (150-450); RED BLOOD COUNT 4.06 10^6/uL (4.00-5.40); WHITE BLOOD COUNT 6.9 10^3/uL (4.0-10.0)
[2018-06-12 11:41] LABS: INR 1.81; PARTIAL THROMBOPLASTIN TIME 40.4 SECONDS (25.4-37.6); PROTHROMBIN TIME 21.3 SECONDS (12.1-14.4)
--- NOTE | 2018-06-12 11:46 | REP ---
Clinical: Right flank pain. Technique: Real time garrison scale ultrasound examination using curved array transducer. Findings: Bilateral kidneys are normal in contour, size, echogenicity, and reniform shape without hydronephrosis, nephrolithiasis, cystic or renal mass lesion. Right kidney measures 9.5 x 4.5 x 4.9 cm. Left kidney measures 10.4 x 5.0 x 4.8 cm. Bladder is unremarkable. Impression: Essentially normal renal ultrasound. No hydronephrosis or nephrolithiasis appreciated. Electronically Signed by Jason Louis MD 06/12/2018 11:38 A
[2018-06-12] MEDS ORDERED: ONDANSETRON 4 MG ORAL DISINTEGRATING TAB (Q0162 PER 1MG) PO ONE (12:00)
[2018-06-12] MEDS ORDERED: PANTOPRAZOLE 40MG TAB (PROTONIX) PO ONE (12:00)
[2018-06-12 12:02] LABS: ALBUMIN 3.7 GM/DL (3.2-5.2); ALT/SGPT 57 U/L (12-78); BILIRUBIN,DIRECT < 0.1 MG/DL (0.0-0.2); BILIRUBIN,TOTAL 0.3 MG/DL (0.2-1.0); BLOOD UREA NITROGEN 13 MG/DL (7-18); CALCIUM LEVEL 8.5 MG/DL (8.5-10.1); CARBON DIOXIDE LEVEL 27 MEQ/L (21-32); CHLORIDE LEVEL 103 MEQ/L (98-107); CREATININE FOR GFR 0.82 MG/DL (0.55-1.30); GLOMERULAR FILTRATION RATE > 60.0 (>60); GLUCOSE, FASTING 106 MG/DL (70-100); POTASSIUM SERUM 3.8 MEQ/L (3.5-5.1); SODIUM LEVEL 139 MEQ/L (136-145); TOTAL PROTEIN 7.1 GM/DL (6.4-8.2)
[2018-06-12] MEDS ORDERED: ALPRAZolam 0.5 MG TAB PO ONE (12:30)
[2018-06-12] MEDS ORDERED: MACR100C43 PO (12:32)
[2018-06-12] MEDS ORDERED: PYRI1TAB5 PO (12:32)
[2018-06-12 12:41] VITALS: BP 108/56
== END 2018-06-12 12:42 | disposition home or self-care (01) ==
LOC: M ED 10:37
DX: N39.0 Urinary tract infection, site not specified (principal); G89.29 Other chronic pain; R10.9 Unspecified abdominal pain; I10 Essential (primary) hypertension; Z86.711 Personal history of pulmonary embolism; J45.909 Unspecified asthma, uncomplicated; K52.9 Noninfective gastroenteritis and colitis, unspecified; K57.90 Diverticulosis of intestine, part unspecified, without perforation or abscess without bleeding; Z87.442 Personal history of urinary calculi; Z87.440 Personal history of urinary (tract) infections; K76.0 Fatty (change of) liver, not elsewhere classified; G47.00 Insomnia, unspecified; Z79.899 Other long term (current) drug therapy; Z88.0 Allergy status to penicillin; Z88.6 Allergy status to analgesic agent
CPT/HCPCS: 36415; 76775; 80048; 80076; 81001; 85025; 85610; 85730; 87086; 96372; 99284; J0500; Q0162

== ENCOUNTER 2018-08-17 12:24 | Emergency (ER) | payer OTHER ==
[~2018-08-17] VITALS: Ht 154.9 cm; Wt 117.4 kg
[~2018-08-17 12:24] MED LIST changes: +DICY20TA PO; +FERR1TAB8 PO; +LORA-243 PO; +ONDA4TAB6 PO
[2018-08-17] MEDS ORDERED: LAMO200T2 (12:53)
[2018-08-17] MEDS ORDERED: FLOM0.4C39 PO ×2 (12:53→15:04)
[2018-08-17] MEDS ORDERED: FLUO20CA19 (12:53)
[2018-08-17] MEDS ORDERED: FEXO60CA (12:53)
[2018-08-17] MEDS ORDERED: ALBU8.5H (12:53)
[2018-08-17] MEDS ORDERED: ALBU83IN (12:53)
[2018-08-17] MEDS ORDERED: ONDANSETRON 4MG/2ML VIAL (J2405) IV ONE (13:00)
[2018-08-17] MEDS ORDERED: NS 1,000 ML IV ONE (13:00)
[2018-08-17] MEDS ORDERED: MORPHINE 4 MG/ML 1ML VIAL/SYRINGE (J2270) IV ONE (13:00)
[2018-08-17 13:37] LABS: BASO % 0.4 % (0.0-1.0); EOS # 0.1 10^3/uL (0.0-0.50); EOS % 0.9 % (0.0-3.0); HEMATOCRIT 38.3 % (36.0-47.0); HEMOGLOBIN 12.6 g/dl (12.0-15.5); LYMPH # 1.9 10^3/uL (1.5-4.5); LYMPH % 24.8 % (24.0-44.0); MEAN CORPUSCULAR HEMOGLOBIN 32.7 pg (27.0-33.0); MEAN CORPUSCULAR HGB CONC 32.9 g/dl (32.0-36.5); MEAN CORPUSCULAR VOLUME 99.5 fl (80.0-96.0); MONO # 0.6 10^3/uL (0.0-0.8); MONO % 8.2 % (0.0-5.0); NEUTROPHILS # 4.9 10^3/uL (1.8-7.7); NEUTROPHILS % 64.5 % (36.0-66.0); PLATELET COUNT, AUTOMATED 303 10^3/uL (150-450); RED BLOOD COUNT 3.85 10^6/uL (4.00-5.40); WHITE BLOOD COUNT 7.6 10^3/uL (4.0-10.0)
[2018-08-17 14:08] LABS: ALBUMIN 3.4 GM/DL (3.2-5.2); ALT/SGPT 50 U/L (12-78); BILIRUBIN,TOTAL 0.3 MG/DL (0.2-1.0); BLOOD UREA NITROGEN 19 MG/DL (7-18); CALCIUM LEVEL 8.3 MG/DL (8.5-10.1); CARBON DIOXIDE LEVEL 27 MEQ/L (21-32); CHLORIDE LEVEL 104 MEQ/L (98-107); CREATININE FOR GFR 0.69 MG/DL (0.55-1.30); GLOMERULAR FILTRATION RATE > 60.0 (>60); GLUCOSE, FASTING 92 MG/DL (70-100); LIPASE 168 U/L (73-393); POTASSIUM SERUM 3.8 MEQ/L (3.5-5.1); SODIUM LEVEL 139 MEQ/L (136-145); TOTAL PROTEIN 6.8 GM/DL (6.4-8.2)
--- NOTE | 2018-08-17 14:19 | REP ---
CT ABDOMEN AND PELVIS WITHOUT CONTRAST: CT abdomen and pelvis performed without oral or IV contrast. Sagittal and coronal reconstruction images are performed. Visualized lung bases are clear. The liver appears to demonstrate areas of fatty infiltration. Patient has had a prior cholecystectomy. There is no biliary dilatation. The spleen, adrenals, pancreas and kidneys are grossly unremarkable. There is no renal or ureteral calculus and no hydroureteronephrosis. There is no abdominal aortic aneurysm. I see no adenopathy. There is no free air or free fluid. I see no bowel wall thickening. Scattered diverticula are seen involving the left side of the colon. No definite acute inflammatory change are seen. I see no evidence of a pelvic mass. Urinary bladder is empty and not well evaluated. IMPRESSION: Status post cholecystectomy. No biliary dilatation. No renal or ureteral calculus. No hydroureteronephrosis. Scattered diverticula of the left colon without evidence of acute inflammatory change. Electronically Signed by Keenan Frederick MD 08/19/2018 08:36 A
[2018-08-17] MEDS ORDERED: MACR100C43 PO (14:35)
[2018-08-17] MEDS ORDERED: PYRI1TAB5 PO (14:35)
[2018-08-17] MEDS ORDERED: NITROFURANTOIN (MACROBID) 100 MG CAP PO ONE (15:00)
[2018-08-17] MEDS ORDERED: PHENAZOPYRIDINE 100 MG TAB PO ONE (15:00)
[2018-08-17 15:12] VITALS: BP 128/70
[2018-08-17] MEDS ORDERED: TAMSULOSIN 0.4 MG CAP PO ONE (15:15)
== END 2018-08-17 15:14 | disposition home or self-care (01) ==
LOC: M ED 12:24
DX: K57.30 Diverticulosis of large intestine without perforation or abscess without bleeding (principal); N39.0 Urinary tract infection, site not specified
CPT/HCPCS: 36415; 74176; 80053; 81001; 83690; 85025; 87086; 96374; 96375; 99284; J2270; J2405

== ENCOUNTER 2018-11-05 14:17 | Emergency (ER) | payer OTHER ==
[~2018-11-05] VITALS: Ht 154.9 cm; Wt 115.9 kg
[~2018-11-05 14:17] MED LIST changes: +ALBU8.5H; +ALBU83IN; +FEXO60CA; +FLUO20CA19; +LAMO200T2
[2018-11-05] MEDS ORDERED: QUET1TAB10 PO (14:30)
[2018-11-05] MEDS ORDERED: VENL75CA47 PO (14:30)
[2018-11-05] MEDS ORDERED: LISI10TA15 PO (14:30)
[2018-11-05] MEDS ORDERED: MORPHINE 4 MG/ML 1ML VIAL/SYRINGE (J2270) IV ONE (15:30)
[2018-11-05] MEDS ORDERED: NS 1,000 ML IV ONE (15:30)
[2018-11-05 15:32] LABS: BASO % 0.3 % (0.0-1.0); EOS # 0.4 10^3/uL (0.0-0.50); EOS % 4.5 % (0.0-3.0); HEMATOCRIT 37.3 % (36.0-47.0); HEMOGLOBIN 12.4 g/dl (12.0-15.5); LYMPH # 2.1 10^3/uL (1.5-4.5); LYMPH % 24.9 % (24.0-44.0); MEAN CORPUSCULAR HGB CONC 33.2 g/dl (32.0-36.5); MEAN CORPUSCULAR VOLUME 96.4 fl (80.0-96.0); MONO # 0.6 10^3/uL (0.0-0.8); MONO % 6.8 % (0.0-5.0); NEUTROPHILS # 5.4 10^3/uL (1.8-7.7); NEUTROPHILS % 62.6 % (36.0-66.0); PLATELET COUNT, AUTOMATED 319 10^3/uL (150-450); RED BLOOD COUNT 3.87 10^6/uL (4.00-5.40); WHITE BLOOD COUNT 8.6 10^3/uL (4.0-10.0)
[2018-11-05 15:40] LABS: ALBUMIN 3.7 GM/DL (3.2-5.2); ALT/SGPT 55 U/L (12-78); BILIRUBIN,DIRECT < 0.1 MG/DL (0.0-0.2); BILIRUBIN,TOTAL 0.4 MG/DL (0.2-1.0); BLOOD UREA NITROGEN 12 MG/DL (7-18); CARBON DIOXIDE LEVEL 23 MEQ/L (21-32); CHLORIDE LEVEL 105 MEQ/L (98-107); CREATININE FOR GFR 0.85 MG/DL (0.55-1.30); GLOMERULAR FILTRATION RATE > 60.0 (>60); GLUCOSE, FASTING 93 MG/DL (70-100); LIPASE 103 U/L (73-393); POTASSIUM SERUM 4.1 MEQ/L (3.5-5.1); SODIUM LEVEL 137 MEQ/L (136-145); TOTAL PROTEIN 7.6 GM/DL (6.4-8.2)
--- NOTE | 2018-11-05 16:36 | REP ---
RENAL ULTRASOUND: Real-time sonographic evaluation of the kidneys performed and demonstrates both kidneys to be normal in size and echotexture, right kidney measuring 9.4 x 5.2 x 4.4 cm and left kidney 10.4 x 4.2 x 5.0 cm. There is no hydronephrosis or nephrolithiasis identified bilaterally. I see no renal mass. Urinary bladder is mildly distended with bilateral ureteral jets noted with Doppler color evaluation. No definite bladder calculus is seen. IMPRESSION: No hydronephrosis. No renal stones seen. There are bilateral ureteral jets in the urinary bladder with Doppler color evaluation. Electronically Signed by Keenan Frederick MD 11/07/2018 11:07 P
[2018-11-05] MEDS ORDERED: DICYCLOMINE INJ 20MG/2ML (J0500) IM ONE (16:45)
[2018-11-05] MEDS ORDERED: ONDANSETRON 4 MG ORAL DISINTEGRATING TAB (Q0162 PER 1MG) PO ONE (16:45)
[2018-11-05 16:57] VITALS: BP 126/60
[2018-11-05] MEDS ORDERED: DICY10CA13 PO (17:07)
== END 2018-11-05 17:16 | disposition home or self-care (01) ==
LOC: M ED 14:17
DX: R31.9 Hematuria, unspecified (principal); R10.9 Unspecified abdominal pain; Z79.02 Long term (current) use of antithrombotics/antiplatelets; Z79.899 Other long term (current) drug therapy; Z88.0 Allergy status to penicillin; Z88.6 Allergy status to analgesic agent
CPT/HCPCS: 36415; 76775; 80048; 80076; 81001; 83690; 84702; 85025; 87086; 96361; 96372; 96374; 99284; J0500; J2270; Q0162

== ENCOUNTER 2018-11-13 14:55 | Emergency (ER) | payer OTHER ==
[~2018-11-13] VITALS: Ht 154.9 cm; Wt 118.6 kg
[~2018-11-13 14:55] MED LIST changes: +DICY10CA13 PO; +LISI10TA15 PO; +QUET1TAB10 PO; +VENL75CA47 PO
[2018-11-13 15:56] LABS: BASO % 0.3 % (0.0-1.0); EOS # 0.3 10^3/uL (0.0-0.50); EOS % 4.3 % (0.0-3.0); HEMATOCRIT 37.2 % (36.0-47.0); HEMOGLOBIN 12.2 g/dl (12.0-15.5); LYMPH # 1.7 10^3/uL (1.5-4.5); LYMPH % 27.6 % (24.0-44.0); MEAN CORPUSCULAR HEMOGLOBIN 31.9 pg (27.0-33.0); MEAN CORPUSCULAR HGB CONC 32.8 g/dl (32.0-36.5); MEAN CORPUSCULAR VOLUME 97.1 fl (80.0-96.0); MONO # 0.3 10^3/uL (0.0-0.8); MONO % 5.7 % (0.0-5.0); NEUTROPHILS # 3.7 10^3/uL (1.8-7.7); NEUTROPHILS % 61.4 % (36.0-66.0); PLATELET COUNT, AUTOMATED 273 10^3/uL (150-450); RED BLOOD COUNT 3.83 10^6/uL (4.00-5.40)
[2018-11-13 16:04] LABS: BILIRUBIN, URINE MANUAL NEGATIVE (NEGATIVE); GLUCOSE, URINE (UA) MANUAL NEGATIVE (NEGATIVE); KETONE, URINE MANUAL NEGATIVE (NEGATIVE); UROBILINOGEN, URINE MANUAL NORMAL (NORMAL)
[2018-11-13 16:07] LABS: BACTERIA, URINE SMALL AMOUNT; HYALINE CAST, URINE NONE SEEN /lpf (0-1); RBC, URINE TNTC /hpf (0-3); SQUAMOUS EPITHELIAL CELL URINE SMALL AMOUNT /hpf (SMALL AMT)
[2018-11-13 16:17] LABS: ALBUMIN 3.4 GM/DL (3.2-5.2); ALT/SGPT 54 U/L (12-78); BILIRUBIN,DIRECT < 0.1 MG/DL (0.0-0.2); BILIRUBIN,TOTAL 0.2 MG/DL (0.2-1.0); BLOOD UREA NITROGEN 15 MG/DL (7-18); CARBON DIOXIDE LEVEL 24 MEQ/L (21-32); CHLORIDE LEVEL 105 MEQ/L (98-107); CREATININE FOR GFR 0.77 MG/DL (0.55-1.30); GLOMERULAR FILTRATION RATE > 60.0 (>60); GLUCOSE, FASTING 96 MG/DL (70-100); LIPASE 106 U/L (73-393); POTASSIUM SERUM 3.1 MEQ/L (3.5-5.1); SODIUM LEVEL 136 MEQ/L (136-145); TOTAL PROTEIN 7.5 GM/DL (6.4-8.2)
[2018-11-13] MEDS ORDERED: MORPHINE 4 MG/ML 1ML VIAL/SYRINGE (J2270) IV ONE ×2 (17:15→18:00)
[2018-11-13] MEDS ORDERED: ONDANSETRON 4MG/2ML VIAL (J2405) IV ONE (17:15)
--- NOTE | 2018-11-13 18:10 | REPVR ---
EXAM: CT Abdomen and Pelvis Without Contrast EXAM DATE/TIME: 11/13/2018 5:07 PM CLINICAL HISTORY: 32 years old, female; Abdominal pain; Flank; Right; Additional info: R renal colic TECHNIQUE: Imaging protocol: Computed tomography of the abdomen and pelvis without contrast. Radiation optimization: All CT scans at this facility use at least one of these dose optimization techniques: automated exposure control; mA and/or kV adjustment per patient size (includes targeted exams where dose is matched to clinical indication); or iterative reconstruction. COMPARISON: CT ABD PELVIS W/O CONTRAST 07/30/2018 8:28 AM FINDINGS: Lungs: No suspicious mass or airspace process in the visualized lung bases. Liver: Liver is enlarged and decreased in density suggesting hepatic steatosis. Gallbladder and bile ducts: Gallbladder is surgically absent. Pancreas: Noncontrast pancreas shows no obvious mass or adjacent fluid. Spleen: Noncontrast spleen shows no obvious focal deformity. Adrenals: Adrenal glands are normal in appearance. Kidneys and ureters: Kidneys show no stone or hydronephrosis. Stomach and bowel: No evidence of small bowel obstruction. Appendix appears to be surgically absent, with cecal tip suture line noted. Diverticular changes are present within the colon without inflammation. Intraperitoneal space: No pneumoperitoneum. No abnormal pelvic mass. Vasculature: No aortic aneurysm. Lymph nodes: No enlarged lymph nodes. No abnormal pelvic sidewall lymph nodes. Bladder: Bladder appears normal. Reproductive: Unremarkable as visualized. Bones/joints: Bony structures show no acute fracture or destructive process. Soft tissues: Exam is limited due to patient body habitus and resultant poor resolution. Other findings: Limited evaluation without enteric or IV contrast. IMPRESSION: 1. No evidence of renal stone or obstruction. 2. Probable prior appendectomy with cecal tip suture line present and absent appendix. 3. Scattered colonic diverticula with no evidence of active inflammation. 4. Hepatomegaly and hepatic steatosis Electronically signed by: Rubén Heard On 11/13/2018 18:09:30 PM
[2018-11-13] MEDS ORDERED: ZOFR4TAB16 PO (18:30)
[2018-11-13] MEDS ORDERED: TRAM50TA2 PO (18:30)
[2018-11-13] MEDS ORDERED: CIPR-249 PO (18:30)
[2018-11-13] MEDS ORDERED: CIPROFLOXACIN 500 MG TAB PO ONE (18:30)
[2018-11-13 18:37] VITALS: BP 146/77
== END 2018-11-13 18:45 | disposition home or self-care (01) ==
LOC: M ED 14:55
DX: N12 Tubulo-interstitial nephritis, not specified as acute or chronic (principal); R11.2 Nausea with vomiting, unspecified; I10 Essential (primary) hypertension; Z87.42 Personal history of other diseases of the female genital tract; Z86.718 Personal history of other venous thrombosis and embolism; Z88.0 Allergy status to penicillin; Z88.6 Allergy status to analgesic agent; Z79.899 Other long term (current) drug therapy; Z79.01 Long term (current) use of anticoagulants
CPT/HCPCS: 74176; 80048; 80076; 81000; 83690; 84702; 85025; 87086; 96374; 96375; 99283; J2270; J2405

== ENCOUNTER 2018-11-20 05:10 | Emergency (ER) | payer OTHER ==
[~2018-11-20] VITALS: Ht 154.9 cm; Wt 118.6 kg
[~2018-11-20 05:10] MED LIST changes: -LAMO200T2; +LAMO200T3; +LORA2TAB14; -LORA2TAB9; +TRAM50TA2 PO; +ZOFR4TAB16 PO
[2018-11-20 05:54] LABS: BASO % 0.4 % (0.0-1.0); EOS # 0.7 10^3/uL (0.0-0.5); EOS % 10.3 % (0.0-3.0); HEMATOCRIT 34.4 % (36.0-47.0); HEMOGLOBIN 11.4 g/dl (12.0-15.5); LYMPH # 2.1 10^3/uL (1.5-5.0); LYMPH % 30.5 % (24.0-44.0); MEAN CORPUSCULAR HEMOGLOBIN 31.4 pg (27.0-33.0); MEAN CORPUSCULAR HGB CONC 33.1 g/dl (32.0-36.5); MEAN CORPUSCULAR VOLUME 94.8 fl (80.0-96.0); MONO # 0.6 10^3/uL (0.0-0.8); MONO % 8.6 % (0.0-5.0); NEUTROPHILS # 3.3 10^3/uL (1.5-8.5); NEUTROPHILS % 49.3 % (36.0-66.0); PLATELET COUNT, AUTOMATED 259 10^3/uL (150-450); RED BLOOD COUNT 3.63 10^6/uL (4.00-5.40); WHITE BLOOD COUNT 6.7 10^3/uL (4.0-10.0)
[2018-11-20] MEDS ORDERED: MORPHINE 4 MG/ML 1ML VIAL/SYRINGE (J2270) IV ONE ×2 (06:00→08:00)
[2018-11-20] MEDS ORDERED: NS 1,000 ML IV ONE (06:00)
[2018-11-20] MEDS ORDERED: ACETAMINOPHEN *IV* 1,000 MG in IV 1 EA IV ONE (06:15)
[2018-11-20 06:30] LABS: ALBUMIN 3.1 GM/DL (3.2-5.2); ALT/SGPT 45 U/L (12-78); BILIRUBIN,DIRECT < 0.1 MG/DL (0.0-0.2); BILIRUBIN,TOTAL 0.2 MG/DL (0.2-1.0); BLOOD UREA NITROGEN 16 MG/DL (7-18); CALCIUM LEVEL 8.7 MG/DL (8.5-10.1); CARBON DIOXIDE LEVEL 28 MEQ/L (21-32); CHLORIDE LEVEL 106 MEQ/L (98-107); CREATININE FOR GFR 0.82 MG/DL (0.55-1.30); GLOMERULAR FILTRATION RATE > 60.0 (>60); GLUCOSE, FASTING 83 MG/DL (70-100); HCG, SERUM QUANTITATIVE < 1.0 MIU/ML; LIPASE 110 U/L (73-393); POTASSIUM SERUM 3.9 MEQ/L (3.5-5.1); SODIUM LEVEL 140 MEQ/L (136-145); TOTAL PROTEIN 6.5 GM/DL (6.4-8.2)
[2018-11-20] MEDS ORDERED: NS 1,000 ML IV SCH (07:48)
--- NOTE | 2018-11-20 08:05 | REPVR ---
EXAM: CT Abdomen and Pelvis Without Contrast EXAM DATE/TIME: 11/20/2018 6:18 AM CLINICAL HISTORY: 32 years old, female; Abdominal pain; Colic; Additional info: R colic TECHNIQUE: Imaging protocol: Computed tomography of the abdomen and pelvis without contrast. Radiation optimization: All CT scans at this facility use at least one of these dose optimization techniques: automated exposure control; mA and/or kV adjustment per patient size (includes targeted exams where dose is matched to clinical indication); or iterative reconstruction. COMPARISON: CT ABD PELVIS W/O CONTRAST 11/13/2018 5:07 PM FINDINGS: Liver: The liver is heterogeneous and severely hypoattenuated as compared to the spleen. Gallbladder and bile ducts: The patient is status post cholecystectomy. There is no obvious biliary ductal dilatation. Pancreas: Normal. No ductal dilation. Spleen: Normal. No splenomegaly. Adrenals: Normal. No mass. Kidneys and ureters: There is a punctate left lower pole stone measuring 1-2 mm on axial image 63. There is no ureteral stones or hydronephrosis. Stomach and bowel: There is sigmoid colon diverticulosis. Appendix: The patient is status post appendectomy. Intraperitoneal space: Unremarkable. No free air. No significant fluid collection. Vasculature: Unremarkable. No abdominal aortic aneurysm. Lymph nodes: Unremarkable. No enlarged lymph nodes. Bladder: Unremarkable as visualized. Reproductive: There is 2.2 cm left ovarian cyst. Bones/joints: Unremarkable. No acute fracture. Soft tissues: Unremarkable. IMPRESSION: 1. Punctate 1-2 mm nonobstructing left lower renal pole stone. 2. 2.2 cm left ovarian cyst. 3. Marked fatty infiltration of the liver. 4. Status post cholecystectomy and appendectomy. 5. Sigmoid colon diverticulosis. Electronically signed by: Henrik Barfield On 11/20/2018 08:04:53 AM
[2018-11-20 09:04] VITALS: BP 120/84
[2018-12-15] MEDS ORDERED: TRAZ-257 PO (07:20)
== END 2018-11-20 09:05 | disposition home or self-care (01) ==
LOC: M ED 05:10
DX: N20.0 Calculus of kidney (principal); N83.202 Unspecified ovarian cyst, left side; K76.0 Fatty (change of) liver, not elsewhere classified; K57.30 Diverticulosis of large intestine without perforation or abscess without bleeding; R31.9 Hematuria, unspecified; I10 Essential (primary) hypertension; F41.9 Anxiety disorder, unspecified; J45.909 Unspecified asthma, uncomplicated; Z86.711 Personal history of pulmonary embolism; Z88.0 Allergy status to penicillin; Z88.6 Allergy status to analgesic agent
CPT/HCPCS: 74176; 80048; 80076; 81001; 83690; 84702; 85025; 87040; 87077; 87086; 87186; 96361; 96374; 96375; 96376; 99284; J0131; J2270

== ENCOUNTER 2018-12-15 07:06 | Emergency (ER) | payer OTHER ==
[~2018-12-15] VITALS: Ht 154.9 cm; Wt 115.5 kg
[~2018-12-15 07:06] MED LIST changes: +LAMO200T2; -LAMO200T3; -LORA2TAB14; +LORA2TAB9
[2018-12-15] MEDS ORDERED: TRAZ-163 PO (07:20)
[2018-12-15] MEDS ORDERED: BUPR150T5 PO (07:20)
[2018-12-15] MEDS ORDERED: ENOX120I3 SQ (07:20)
[2018-12-15] MEDS ORDERED: ONDANSETRON 4MG/2ML VIAL (J2405) IV ONE (08:00)
[2018-12-15] MEDS ORDERED: ACETAMINOPHEN TAB 650MG DOSE (2X325MG) PO ONE (08:00)
[2018-12-15 08:03] LABS: BASO % 0.3 % (0.0-1.0); EOS # 0.2 10^3/uL (0.0-0.5); EOS % 2.9 % (0.0-3.0); HEMATOCRIT 37.3 % (36.0-47.0); HEMOGLOBIN 12.2 g/dl (12.0-15.5); LYMPH # 1.6 10^3/uL (1.5-5.0); LYMPH % 26.3 % (24.0-44.0); MEAN CORPUSCULAR HEMOGLOBIN 31.3 pg (27.0-33.0); MEAN CORPUSCULAR HGB CONC 32.7 g/dl (32.0-36.5); MEAN CORPUSCULAR VOLUME 95.6 fl (80.0-96.0); MONO # 0.6 10^3/uL (0.0-0.8); MONO % 10.4 % (0.0-5.0); NEUTROPHILS # 3.6 10^3/uL (1.5-8.5); PLATELET COUNT, AUTOMATED 264 10^3/uL (150-450); WHITE BLOOD COUNT 6.2 10^3/uL (4.0-10.0)
[2018-12-15] MEDS ORDERED: ISOVUE-370 76% 100ML VIAL (Q9967) As Ordered ONE (08:11)
[2018-12-15] MEDS ORDERED: NS 1,000 ML IV ONE (08:15)
[2018-12-15 08:30] LABS: ALBUMIN 3.6 GM/DL (3.2-5.2); ALT/SGPT 86 U/L (12-78); BILIRUBIN,DIRECT 0.1 MG/DL (0.0-0.2); BILIRUBIN,TOTAL 0.3 MG/DL (0.2-1.0); BLOOD UREA NITROGEN 16 MG/DL (7-18); CALCIUM LEVEL 9.3 MG/DL (8.5-10.1); CARBON DIOXIDE LEVEL 28 MEQ/L (21-32); CHLORIDE LEVEL 103 MEQ/L (98-107); GLOMERULAR FILTRATION RATE > 60.0 (>60); GLUCOSE, FASTING 87 MG/DL (70-100); LIPASE 108 U/L (73-393); POTASSIUM SERUM 3.8 MEQ/L (3.5-5.1); SODIUM LEVEL 139 MEQ/L (136-145); TOTAL PROTEIN 7.6 GM/DL (6.4-8.2)
[2018-12-15 10:37] LABS: INR 1.01
[2018-12-15 10:38] LABS: PARTIAL THROMBOPLASTIN TIME 31.7 SECONDS (25.0-38.4)
[2018-12-15 11:09] VITALS: BP 128/83
--- NOTE | 2018-12-15 11:09 | REP ---
CT abdomen and pelvis with IV but without oral contrast: History: Right lower quadrant pain. Rule out appendicitis. Please note that the patient gives a history of appendectomy as well as a prior cholecystectomy. Comparison CT study November 20, 2018. CT contrast dose: 100 mL of intravenous Isovue 370. CT findings: Preliminary digital direct support professional radiograph demonstrates an unremarkable bowel gas pattern. The lung bases are clear on axial CT images. There is moderate diffuse fatty infiltration of the liver. The liver is mildly enlarged with craniocaudal imaging span in the midclavicular line of 16.9 cm. No focal hepatic lesion is seen. The spleen is normal in size, homogeneous in texture. No adrenal lesion is observed. The pancreas shows no abnormality. There is some motion artifact on mid abdominal axial CT images. The kidneys enhance symmetrically and appear morphologically intact. No retroperitoneal mass or adenopathy is observed. There is a retroaortic left renal vein. There are surgical sutures along the medial aspect of the cecum consistent with previous appendectomy. The ileocecal valve and terminal ileum are unremarkable. The appendix is not apparent. No uterine or ovarian mass or pelvic adenopathy is seen. Urinary bladder is largely empty but appears intact. Small and large bowel loops are unremarkable. Bone window settings show no bony destructive lesion. Impression: Mild hepatic enlargement with diffuse fatty infiltration of the liver. Post cholecystectomy and appendectomy. Otherwise negative. No urinary calculus or hydronephrosis is visible. There is mild respiratory motion artifact. Electronically Signed by Andrei Pace MD 12/15/2018 12:58 P
[2018-12-15 11:53] LABS: HEPATITIS B SURFACE ANTIGEN NEGATIVE (NEGATIVE)
[2018-12-15 12:21] LABS: HEPATITIS C VIRUS ABY INDEX 0.1 INDEX (<0.8)
[2018-12-15 12:22] LABS: HEPATITIS B CORE ANTIBODY IGM NEGATIVE (NEGATIVE)
[2018-12-15 12:23] LABS: HEPATITIS A ANTIBODY IGM NEGATIVE (NEGATIVE)
== END 2018-12-15 11:17 | disposition home or self-care (01) ==
LOC: M ED 07:06
DX: K75.9 Inflammatory liver disease, unspecified (principal); K76.0 Fatty (change of) liver, not elsewhere classified; I10 Essential (primary) hypertension; K80.20 Calculus of gallbladder without cholecystitis without obstruction; N20.0 Calculus of kidney; F41.9 Anxiety disorder, unspecified; D50.9 Iron deficiency anemia, unspecified; Z88.0 Allergy status to penicillin; Z88.8 Allergy status to other drugs, medicaments and biological substances; Z79.899 Other long term (current) drug therapy
CPT/HCPCS: 74177; 80048; 80076; 81001; 83690; 84702; 85025; 85610; 85730; 86705; 86709; 86803; 87086; 87340; 96361; 96374; 99284; J2405; Q9967

== ENCOUNTER 2019-02-25 12:46 | Emergency (ER) | payer OTHER ==
[~2019-02-25] VITALS: Ht 154.9 cm; Wt 114.7 kg
[2019-02-25 12:46] VITALS: BP 124/78
[~2019-02-25 12:46] MED LIST changes: +BUPR150T5 PO; +ENOX120I3 SQ; -LAMO200T2; +LAMO200T3; +TRAZ-163 PO
[2019-02-25] MEDS ORDERED: LOVE0.01 (12:55)
[2019-02-25] MEDS ORDERED: HYDR-3713 (12:57)
[2019-02-25] MEDS ORDERED: KEFL500C17 (12:57)
[2019-02-25] MEDS ORDERED: SULF1TAB93 (12:57)
[2019-02-25 13:50] LABS: BASO % 0.3 % (0.0-1.0); EOS # 0.1 10^3/uL (0.0-0.5); EOS % 1.1 % (0.0-3.0); HEMATOCRIT 40.7 % (36.0-47.0); LYMPH # 1.8 10^3/uL (1.5-5.0); MEAN CORPUSCULAR HEMOGLOBIN 30.8 pg (27.0-33.0); MEAN CORPUSCULAR HGB CONC 31.9 g/dl (32.0-36.5); MEAN CORPUSCULAR VOLUME 96.4 fl (80.0-96.0); MONO # 0.6 10^3/uL (0.0-0.8); MONO % 6.8 % (0.0-5.0); NEUTROPHILS # 6.7 10^3/uL (1.5-8.5); NEUTROPHILS % 71.5 % (36.0-66.0); PLATELET COUNT, AUTOMATED 374 10^3/uL (150-450); RED BLOOD COUNT 4.22 10^6/uL (4.00-5.40); WHITE BLOOD COUNT 9.4 10^3/uL (4.0-10.0)
[2019-02-25 14:02] LABS: HCG, SERUM QUALITATIVE NEGATIVE (NEGATIVE)
[2019-02-25 14:13] LABS: ALBUMIN 3.5 GM/DL (3.2-5.2); ALT/SGPT 60 U/L (12-78); BILIRUBIN,DIRECT < 0.1 MG/DL (0.0-0.2); BILIRUBIN,TOTAL 0.2 MG/DL (0.2-1.0); BLOOD UREA NITROGEN 19 MG/DL (7-18); CARBON DIOXIDE LEVEL 28 MEQ/L (21-32); CHLORIDE LEVEL 104 MEQ/L (98-107); CREATININE FOR GFR 0.83 MG/DL (0.55-1.30); GLOMERULAR FILTRATION RATE > 60.0 (>60); GLUCOSE, FASTING 98 MG/DL (70-100); LIPASE 125 U/L (73-393); POTASSIUM SERUM 3.9 MEQ/L (3.5-5.1); SODIUM LEVEL 137 MEQ/L (136-145); TOTAL PROTEIN 7.7 GM/DL (6.4-8.2)
[2019-02-25] MEDS ORDERED: ACETAMINOPHEN 325 MG TAB PO ONE (15:30)
== END 2019-02-25 15:50 | disposition left against medical advice (07) ==
LOC: M ED 12:46
DX: R10.9 Unspecified abdominal pain (principal); J45.909 Unspecified asthma, uncomplicated; Z88.0 Allergy status to penicillin; Z88.8 Allergy status to other drugs, medicaments and biological substances

== ENCOUNTER 2019-10-03 10:19 | Emergency (ER) | payer OTHER ==
[~2019-10-03] VITALS: Ht 154.9 cm; Wt 120.6 kg
[~2019-10-03 10:19] MED LIST changes: +AMLO1TAB24 PO; -AMLO5TAB6 PO; -FLUO20CA19; +FLUO20CA22; +HYDR-3713; +KEFL500C17; +LORA2TAB14; -LORA2TAB9; +LOVE0.01; +SULF1TAB93; -TRAZ-163 PO; +TRAZ-257 PO
[2019-10-03] MEDS ORDERED: claritin (10:31)
[2019-10-03] MEDS ORDERED: HYDR50TA70 (10:31)
[2019-10-03] MEDS ORDERED: MORPHINE 2 MG/ML 1ML VIAL (J2270) IV ONE ×2 (11:45→14:30)
[2019-10-03] MEDS ORDERED: NS 1,000 ML IV ONE (11:45)
[2019-10-03] MEDS ORDERED: ONDANSETRON 4MG/2ML VIAL IV ONE (11:45)
--- NOTE | 2019-10-03 13:11 | REP ---
Clinical: Left flank pain and hematuria. Technique: Axial noncontrast images from the lung bases to the pubic symphysis with coronal and sagittal re-formations. Comparison: 12/15/2018. Findings: Urinary tract including bilateral kidneys, ureters and bladder are normal. No hydroureteronephrosis, perinephric stranding, or nephroureterolithiasis noted. Mild fatty infiltration to the liver suggested. Spleen, pancreas, and bilateral adrenal glands are normal. Evidence for prior cholecystectomy. The enteric system is without obstruction or acute inflammatory process. Evidence for prior appendectomy noted. Sigmoid diverticula are identified without acute diverticulitis. Pelvis demonstrates normal bladder and age-appropriate uterus/adnexa. No ascites. No free air. No adenopathy. Abdominal aorta without aneurysm. Skeletal structures are intact. Lung bases are clear. Impression: 1. No acute abdominopelvic pathology appreciated. 2. Normal appearance to the urinary tract system. Electronically Signed by Jason Louis MD 10/03/2019 01:01 P
[2019-10-03 14:02] LABS: BASO % 0.3 % (0.0-1.0); EOS # 0.1 10^3/uL (0.0-0.5); EOS % 0.8 % (0.0-3.0); HEMATOCRIT 32.4 % (36.0-47.0); HEMOGLOBIN 10.8 g/dl (12.0-15.5); LYMPH # 1.6 10^3/uL (1.5-5.0); LYMPH % 24.8 % (24.0-44.0); MEAN CORPUSCULAR HEMOGLOBIN 29.8 pg (27.0-33.0); MEAN CORPUSCULAR HGB CONC 33.3 g/dl (32.0-36.5); MEAN CORPUSCULAR VOLUME 89.3 fl (80.0-96.0); MONO # 0.4 10^3/uL (0.0-0.8); MONO % 6.7 % (0.0-5.0); NEUTROPHILS # 4.3 10^3/uL (1.5-8.5); NEUTROPHILS % 66.9 % (36.0-66.0); PLATELET COUNT, AUTOMATED 262 10^3/uL (150-450); RED BLOOD COUNT 3.63 10^6/uL (4.00-5.40); WHITE BLOOD COUNT 6.4 10^3/uL (4.0-10.0)
[2019-10-03 14:28] VITALS: BP 154/85
[2019-10-03 15:09] LABS: ALBUMIN 3.4 GM/DL (3.2-5.2); ALT/SGPT 56 U/L (12-78); BILIRUBIN,DIRECT 0.1 MG/DL (0.0-0.2); BILIRUBIN,TOTAL 0.3 MG/DL (0.2-1.0); BLOOD UREA NITROGEN 12 MG/DL (7-18); CARBON DIOXIDE LEVEL 23 MEQ/L (21-32); CHLORIDE LEVEL 112 MEQ/L (98-107); CK-MB VALUE MASS < 1.0 NG/ML (<3.6); CPK CREATINE PHOSPHOKINASE 91 U/L (26-192); CREATININE FOR GFR 0.73 MG/DL (0.55-1.30); GLOMERULAR FILTRATION RATE > 60.0 (>60); GLUCOSE, FASTING 77 MG/DL (70-100); LIPASE 94 U/L (73-393); POTASSIUM SERUM 3.8 MEQ/L (3.5-5.1); SODIUM LEVEL 144 MEQ/L (136-145); TOTAL PROTEIN 6.7 GM/DL (6.4-8.2); TROPONIN I < 0.02 NG/ML (< 0.10)
[2019-10-03 15:11] LABS: HCG, SERUM QUALITATIVE NEGATIVE (NEGATIVE)
== END 2019-10-03 15:20 | disposition left against medical advice (07) ==
LOC: M ED 10:19
DX: R31.9 Hematuria, unspecified (principal); Z53.9 Procedure and treatment not carried out, unspecified reason; R11.0 Nausea; I10 Essential (primary) hypertension; I26.99 Other pulmonary embolism without acute cor pulmonale; Z88.0 Allergy status to penicillin; Z88.6 Allergy status to analgesic agent; Z79.899 Other long term (current) drug therapy
CPT/HCPCS: 36415; 74176; 80047; 80048; 80076; 81001; 82550; 82553; 83690; 84702; 84703; 85025; 87086; 94640; 96361; 96374; 96375; 96376; 99283; J2270; J2405

== ENCOUNTER 2020-05-26 18:45 | Emergency (ER) | payer OTHER ==
[~2020-05-26] VITALS: Ht 154.9 cm; Wt 123.2 kg
[~2020-05-26 18:45] MED LIST changes: -DICY20TA PO; +DICY20TA3 PO; +GABA-282 PO; -GABA-843 PO; +HYDR50TA70; -QUET1TAB10 PO; +QUET300T2 PO; +claritin
[2020-05-26] MEDS ORDERED: MORPHINE 4 MG/ML 1ML VIAL/SYRINGE (J2270) IV ONE ×2 (19:25→20:30)
[2020-05-26] MEDS ORDERED: methylPREDNISolone 125MG 2ML VIAL IV ONE (19:25)
[2020-05-26] MEDS ORDERED: NS 1,000 ML IV ONE (19:25)
[2020-05-26 19:49] LABS: BASO % 0.2 % (0.0-1.0); EOS % 0.1 % (0.0-3.0); HEMATOCRIT 37.1 % (36.0-47.0); HEMOGLOBIN 11.7 g/dl (12.0-15.5); LYMPH % 8.5 % (24.0-44.0); MEAN CORPUSCULAR HEMOGLOBIN 27.5 pg (27.0-33.0); MEAN CORPUSCULAR HGB CONC 31.5 g/dl (32.0-36.5); MEAN CORPUSCULAR VOLUME 87.3 fl (80.0-96.0); MONO # 0.7 10^3/uL (0.0-0.8); MONO % 5.7 % (2.0-8.0); NEUTROPHILS # 9.8 10^3/uL (1.5-8.5); NEUTROPHILS % 85.1 % (36.0-66.0); PLATELET COUNT, AUTOMATED 334 10^3/uL (150-450); RED BLOOD COUNT 4.25 10^6/uL (4.00-5.40); WHITE BLOOD COUNT 11.5 10^3/uL (4.0-10.0)
[2020-05-26] MEDS ORDERED: ISOVUE-370 76% 100ML VIAL As Ordered ONE (20:03)
[2020-05-26 20:32] LABS: ERYTHROCYTE SEDIMENTATION RATE 52 mm/hr (0-20)
--- NOTE | 2020-05-26 21:22 | REPVR ---
PROCEDURE INFORMATION: Exam: CT Maxillofacial With Contrast Exam date and time: 05/26/2020 8:07 PM Age: 34 years old Clinical indication: Mass, lump, or swelling; Mouth; Additional info: L upper broken tooth, L facial swelling, abx not helping TECHNIQUE: Imaging protocol: Computed tomography images of the face with intravenous contrast. Radiation optimization: All CT scans at this facility use at least one of these dose optimization techniques: automated exposure control; mA and/or kV adjustment per patient size (includes targeted exams where dose is matched to clinical indication); or iterative reconstruction. Contrast material: ISOVUE 370; Contrast volume: 75 ml; Contrast route: INTRAVENOUS (IV); COMPARISON: No relevant prior studies available. FINDINGS: Orbital cavity: Orbits are normal. Globes are unremarkable. Bones/joints: There is a left maxilla fracture and a fractured tooth left lateral maxilla. There is also a 2 left maxilla demonstrating periapical abscess. Paranasal sinuses: The paranasal sinuses appear clear. Mastoid air cells: Clear mastoid air cells. Soft tissues: There is focal soft tissue swelling at the left maxilla and left nasal ala. There is severe soft tissue swelling of the left nasal turbinates. Dental: There is very poor dentition with numerous cavities. Posterior mandibular teeth demonstrate large areas of defect. IMPRESSION: Severe soft tissue swelling left maxilla and left nasal ala with soft tissue swelling of the left nasal turbinates. There is a fracture of the left maxilla along with a fractured tooth. Near this is a periapical abscess associated with a maxillary tooth. Electronically signed by: Ranjit Higgins On 05/26/2020 21:21:51 PM
[2020-05-26] MEDS ORDERED: CLEO300C2 PO (21:33)
[2020-05-26] MEDS ORDERED: PRED20TA PO (21:33)
[2020-05-26] MEDS ORDERED: PERC5TAB12 PO (21:33)
[2020-05-26] MEDS ORDERED: OXYCODONE/APAP 5MG/325MG(BULK FOR ED) 1 TABLET PO ONE (21:45)
[2020-05-26 21:54] VITALS: BP 163/89
== END 2020-05-26 21:58 | disposition home or self-care (01) ==
LOC: M ED 18:45
DX: K04.7 Periapical abscess without sinus (principal); R22.0 Localized swelling, mass and lump, head; S02.40DA Maxillary fracture, left side, initial encounter for closed fracture; S02.5XXA Fracture of tooth (traumatic), initial encounter for closed fracture; X58.XXXA Exposure to other specified factors, initial encounter; Y92.89 Other specified places as the place of occurrence of the external cause; I10 Essential (primary) hypertension; Z86.711 Personal history of pulmonary embolism; Z79.899 Other long term (current) drug therapy; Z79.01 Long term (current) use of anticoagulants; F17.200 Nicotine dependence, unspecified, uncomplicated; Z88.0 Allergy status to penicillin; Z88.6 Allergy status to analgesic agent
CPT/HCPCS: 70487; 80047; 85025; 85652; 86140; 96361; 96374; 96375; 96376; 99284; J2270; J2930; Q9967

== ENCOUNTER 2020-06-02 17:00 | Emergency (ER) | payer OTHER ==
[~2020-06-02] VITALS: Ht 154.9 cm; Wt 123.0 kg
[~2020-06-02 17:00] MED LIST changes: +CLEO300C2 PO; +PRED20TA PO
[2020-06-02] MEDS ORDERED: MORPHINE 4 MG/ML 1ML VIAL/SYRINGE (J2270) IV ONE (17:45)
[2020-06-02] MEDS ORDERED: metroNIDAZOLE 500 MG in IV 1 EA IV ONE (17:45)
[2020-06-02] MEDS ORDERED: NS 1,000 ML IV ONE (17:45)
[2020-06-02] MEDS ORDERED: dexameTHASONE 20MG/5ML VIAL (J1100 PER 1MG) IV ONE (17:45)
[2020-06-02 18:10] LABS: BASO # 0.1 10^3/uL (0.0-0.2); BASO % 0.4 % (0.0-1.0); EOS % 0.1 % (0.0-3.0); HEMOGLOBIN 12.2 g/dl (12.0-15.5); LYMPH # 2.5 10^3/uL (1.5-5.0); MEAN CORPUSCULAR HEMOGLOBIN 27.2 pg (27.0-33.0); MEAN CORPUSCULAR HGB CONC 31.3 g/dl (32.0-36.5); MEAN CORPUSCULAR VOLUME 87.1 fl (80.0-96.0); MONO # 0.8 10^3/uL (0.0-0.8); MONO % 5.5 % (2.0-8.0); NEUTROPHILS # 10.3 10^3/uL (1.5-8.5); NEUTROPHILS % 72.6 % (36.0-66.0); PLATELET COUNT, AUTOMATED 426 10^3/uL (150-450); RED BLOOD COUNT 4.48 10^6/uL (4.00-5.40); WHITE BLOOD COUNT 14.2 10^3/uL (4.0-10.0)
[2020-06-02 18:34] LABS: ALBUMIN 3.5 GM/DL (3.2-5.2); ALT/SGPT 54 U/L (12-78); BILIRUBIN,DIRECT < 0.1 MG/DL (0.0-0.2); BILIRUBIN,TOTAL 0.2 MG/DL (0.2-1.0); C REACTIVE PROTEIN QUANTITATIV 0.54 MG/DL (0.00-0.30); TOTAL PROTEIN 7.2 GM/DL (6.4-8.2)
[2020-06-02 18:56] LABS: ERYTHROCYTE SEDIMENTATION RATE 30 mm/hr (0-20)
[2020-06-02] MEDS ORDERED: KETOROLAC 30 MG/ML 1ML VIAL IV ONE (19:05)
[2020-06-02] MEDS ORDERED: ISOVUE-370 76% 100ML VIAL As Ordered ONE (19:06)
[2020-06-02] MEDS ORDERED: fentaNYL 100 MCG/2 ML INJECTION (J3010) IV ONE (20:10)
--- NOTE | 2020-06-02 20:15 | REPVR ---
PROCEDURE INFORMATION: Exam: CT Maxillofacial With Contrast Exam date and time: 06/02/2020 7:34 PM Age: 34 years old Clinical indication: Other: Infection; Additional info: ? Worsening infection TECHNIQUE: Imaging protocol: Computed tomography images of the face with intravenous contrast. Radiation optimization: All CT scans at this facility use at least one of these dose optimization techniques: automated exposure control; mA and/or kV adjustment per patient size (includes targeted exams where dose is matched to clinical indication); or iterative reconstruction. Contrast material: ISOVUE 370; Contrast volume: 75 ml; Contrast route: INTRAVENOUS (IV); COMPARISON: CT Maxillofacial with contrast 05/26/2020 8:06 PM FINDINGS: Orbital cavity: Orbits are normal. Globes are unremarkable. Bones/joints: No acute fracture. Paranasal sinuses: Normal. No air-fluid levels. Soft tissues: There has been improvement in the previously demonstrated edema and soft tissue swelling in the intersection between the left buccal region and left nasal ala. Dental: Periapical lucency demonstrated surrounding the roots of tooth 10 the left side of the maxilla consistent with a periapical abscess. Lateral root of tooth 10. In the left maxilla is exposed possibly related to erosive changes from periodontal disease. IMPRESSION: 1. Periapical lucency demonstrated surrounding the roots of tooth 10 the left side of the maxilla consistent with a periapical abscess. 2. There has been improvement in the previously demonstrated edema and soft tissue swelling in the intersection between the left buccal region and left nasal ala. 3. Lateral root of tooth 10. In the left maxilla is exposed possibly related to erosive changes from periodontal disease. Electronically signed by: Emeterio Sherwood On 06/02/2020 20:15:16 PM
[2020-06-02] MEDS ORDERED: CLEO300C2 PO (20:48)
[2020-06-02] MEDS ORDERED: CIPR-249 PO (20:48)
[2020-06-02] MEDS ORDERED: CIPROFLOXACIN 500MG TABLET PO ONE (20:50)
[2020-06-02] MEDS ORDERED: TRAM50TA2 PO (20:50)
[2020-06-02 21:00] VITALS: BP 157/69
--- NOTE | 2020-06-04 13:23 | ED PDOC ---
Post-Departure Follow-Up ct max fac faxed to dr miles for fu Fiona Pineda MD Jun 04, 2020 13:23
== END 2020-06-02 21:03 | disposition home or self-care (01) ==
LOC: M ED 17:00
DX: K04.7 Periapical abscess without sinus (principal); L03.211 Cellulitis of face; K02.9 Dental caries, unspecified; I10 Essential (primary) hypertension; J45.909 Unspecified asthma, uncomplicated; D64.9 Anemia, unspecified; F41.9 Anxiety disorder, unspecified; Z86.718 Personal history of other venous thrombosis and embolism; Z86.711 Personal history of pulmonary embolism; K57.92 Diverticulitis of intestine, part unspecified, without perforation or abscess without bleeding; Z87.442 Personal history of urinary calculi; Z88.0 Allergy status to penicillin; Z88.6 Allergy status to analgesic agent; Z79.899 Other long term (current) drug therapy; Z79.01 Long term (current) use of anticoagulants; Z79.2 Long term (current) use of antibiotics
CPT/HCPCS: 70487; 80047; 80076; 83605; 84702; 85025; 85652; 86140; 87040; 96365; 96366; 96375; 99284; J1100; J2270; J3010; Q9967

== ENCOUNTER 2020-06-10 12:43 | Emergency (ER) | payer OTHER ==
[~2020-06-10] VITALS: Ht 154.9 cm; Wt 125.2 kg
[2020-06-10] MEDS ORDERED: SULF1TAB93 (12:51)
[2020-06-10] MEDS ORDERED: HYDR-4571 (12:51)
[2020-06-10 14:14] LABS: BASO % 0.4 % (0.0-1.0); EOS # 0.1 10^3/uL (0.0-0.5); EOS % 0.7 % (0.0-3.0); HEMATOCRIT 37.1 % (36.0-47.0); HEMOGLOBIN 11.8 g/dl (12.0-15.5); LYMPH # 2.1 10^3/uL (1.5-5.0); LYMPH % 19.9 % (24.0-44.0); MEAN CORPUSCULAR HEMOGLOBIN 27.8 pg (27.0-33.0); MEAN CORPUSCULAR HGB CONC 31.8 g/dl (32.0-36.5); MEAN CORPUSCULAR VOLUME 87.3 fl (80.0-96.0); MONO # 0.8 10^3/uL (0.0-0.8); MONO % 7.3 % (2.0-8.0); NEUTROPHILS # 7.3 10^3/uL (1.5-8.5); NEUTROPHILS % 70.7 % (36.0-66.0); PLATELET COUNT, AUTOMATED 315 10^3/uL (150-450); RED BLOOD COUNT 4.25 10^6/uL (4.00-5.40); WHITE BLOOD COUNT 10.3 10^3/uL (4.0-10.0)
[2020-06-10] MEDS ORDERED: METOCLOPRAMIDE INJ 10MG/2ML VIAL (J2765 PER 1) IV ONE (14:25)
[2020-06-10] MEDS ORDERED: ACETAMINOPHEN 500 MG TAB PO ONE (14:25)
[2020-06-10] MEDS ORDERED: NS 1,000 ML IV ONE (14:25)
[2020-06-10] MEDS ORDERED: diphenhydrAMINE 50MG/ML VIAL (J1200) IV ONE (14:25)
[2020-06-10 14:37] LABS: ERYTHROCYTE SEDIMENTATION RATE 43 mm/hr (0-20)
[2020-06-10 15:27] VITALS: BP 117/56
== END 2020-06-10 15:51 | disposition left against medical advice (07) ==
LOC: M ED 12:43
DX: R22.0 Localized swelling, mass and lump, head (principal); K04.7 Periapical abscess without sinus; I10 Essential (primary) hypertension; R51.9 Headache, unspecified; Z86.711 Personal history of pulmonary embolism; D68.2 Hereditary deficiency of other clotting factors; Z88.0 Allergy status to penicillin; Z88.6 Allergy status to analgesic agent; Z79.899 Other long term (current) drug therapy; Z79.01 Long term (current) use of anticoagulants; Z79.2 Long term (current) use of antibiotics; Z79.891 Long term (current) use of opiate analgesic
CPT/HCPCS: 80047; 83605; 84702; 85025; 85652; 86140; 87040; 87077; 87186; 96361; 96374; 96375; 99283; J1200; J2765

== ENCOUNTER 2020-06-24 15:55 | Emergency (ER) | payer OTHER ==
[~2020-06-24] VITALS: Ht 154.9 cm; Wt 124.2 kg
[~2020-06-24 15:55] MED LIST changes: +HYDR-4571
[2020-06-24] MEDS ORDERED: CLINDAMYCIN 150MG CAPSULE PO ONE (17:50)
[2020-06-24] MEDS ORDERED: traMADol 50 MG TAB PO ONE (17:50)
[2020-06-24] MEDS ORDERED: ULTR50TA8 PO (17:53)
[2020-06-24] MEDS ORDERED: CLEO300C2 PO (17:53)
[2020-06-24 17:59] VITALS: BP 159/70
== END 2020-06-24 18:02 | disposition home or self-care (01) ==
LOC: M ED 15:55
DX: K04.7 Periapical abscess without sinus (principal); Z79.899 Other long term (current) drug therapy; Z88.0 Allergy status to penicillin; Z88.6 Allergy status to analgesic agent

== ENCOUNTER 2020-07-06 09:10 | Emergency (ER) | payer OTHER ==
[~2020-07-06] VITALS: Ht 154.9 cm; Wt 124.0 kg
[~2020-07-06 09:10] MED LIST changes: +ULTR50TA8 PO
[2020-07-06] MEDS ORDERED: MORPHINE 4 MG/ML 1ML VIAL/SYRINGE (J2270) IV ONE ×2 (09:35→12:20)
[2020-07-06] MEDS ORDERED: NS 1,000 ML IV ONE (09:35)
[2020-07-06] MEDS ORDERED: ONDANSETRON 4MG/2ML VIAL IV ONE (09:35)
[2020-07-06 11:27] LABS: BASO % 0.2 % (0.0-1.0); EOS % 0.2 % (0.0-3.0); HEMATOCRIT 36.2 % (36.0-47.0); HEMOGLOBIN 11.4 g/dl (12.0-15.5); LYMPH % 23.6 % (24.0-44.0); MEAN CORPUSCULAR HEMOGLOBIN 27.3 pg (27.0-33.0); MEAN CORPUSCULAR HGB CONC 31.5 g/dl (32.0-36.5); MEAN CORPUSCULAR VOLUME 86.6 fl (80.0-96.0); MONO # 0.6 10^3/uL (0.0-0.8); MONO % 7.4 % (2.0-8.0); NEUTROPHILS # 5.8 10^3/uL (1.5-8.5); NEUTROPHILS % 67.8 % (36.0-66.0); PLATELET COUNT, AUTOMATED 270 10^3/uL (150-450); RED BLOOD COUNT 4.18 10^6/uL (4.00-5.40); WHITE BLOOD COUNT 8.6 10^3/uL (4.0-10.0)
[2020-07-06 11:56] LABS: ALBUMIN 3.6 GM/DL (3.2-5.2); ALT/SGPT 53 U/L (12-78); AMYLASE 42 U/L (25-115); BILIRUBIN,DIRECT < 0.1 MG/DL (0.0-0.2); BILIRUBIN,TOTAL 0.3 MG/DL (0.2-1.0); BLOOD UREA NITROGEN 15 MG/DL (7-18); CARBON DIOXIDE LEVEL 24 MEQ/L (21-32); CHLORIDE LEVEL 106 MEQ/L (98-107); CREATININE FOR GFR 0.62 MG/DL (0.55-1.30); GLOMERULAR FILTRATION RATE > 60.0 (>60); GLUCOSE, FASTING 92 MG/DL (70-100); LIPASE 104 U/L (73-393); SODIUM LEVEL 136 MEQ/L (136-145); TOTAL PROTEIN 7.2 GM/DL (6.4-8.2)
[2020-07-06 12:16] LABS: HCG, SERUM QUALITATIVE NEGATIVE (NEGATIVE)
--- NOTE | 2020-07-06 12:45 | REP ---
INDICATION: L flank pain, h/o kidney stones. COMPARISON: Multiple the latest 10/03/2019 which was within normal limits TECHNIQUE: Noncontrast enhanced stone protocol CT FINDINGS: Lung bases are clear and unchanged. Once again, diffuse low densities seen throughout the a patent parenchyma. Spleen, pancreas, adrenal glands, and kidneys are unchanged and again seen to be within normal limits. There is no nephroureterolithiasis, hydronephrosis, or hydroureter. There are no urinary bladder calcifications. There is no free fluid or free air. The abdominal aorta and para-aortic regions are unchanged. Bone window technique throughout the examination shows the osseous structures to be stable and intact. IMPRESSION: No acute disease or significant change from the prior exam. <Electronically signed by Wes Mancuso > 07/06/20 [id number]
[2020-07-06 13:10] VITALS: BP 134/79
[2020-07-06] MEDS ORDERED: CIPR500T39 PO (13:15)
== END 2020-07-06 13:42 | disposition home or self-care (01) ==
LOC: M ED 09:10
DX: N39.0 Urinary tract infection, site not specified (principal); I10 Essential (primary) hypertension; D64.9 Anemia, unspecified; F41.9 Anxiety disorder, unspecified; K76.0 Fatty (change of) liver, not elsewhere classified; Z87.19 Personal history of other diseases of the digestive system; Z79.899 Other long term (current) drug therapy; Z88.0 Allergy status to penicillin; Z88.8 Allergy status to other drugs, medicaments and biological substances
CPT/HCPCS: 36415; 74176; 80048; 80076; 81001; 82150; 83690; 84703; 85025; 87086; 96361; 96374; 96375; 96376; 99284; J2270; J2405

== ENCOUNTER 2020-07-13 13:43 | Emergency (ER) | payer OTHER ==
[~2020-07-13] VITALS: Ht 154.9 cm; Wt 124.9 kg
[~2020-07-13 13:43] MED LIST changes: +CIPR500T39 PO
[2020-07-13 15:00] LABS: BASO % 0.2 % (0.0-1.0); EOS # 0.1 10^3/uL (0.0-0.5); HEMATOCRIT 37.8 % (36.0-47.0); HEMOGLOBIN 11.9 g/dl (12.0-15.5); LYMPH # 2.8 10^3/uL (1.5-5.0); LYMPH % 31.1 % (24.0-44.0); MEAN CORPUSCULAR HEMOGLOBIN 27.4 pg (27.0-33.0); MEAN CORPUSCULAR HGB CONC 31.5 g/dl (32.0-36.5); MEAN CORPUSCULAR VOLUME 87.1 fl (80.0-96.0); MONO # 0.7 10^3/uL (0.0-0.8); MONO % 7.6 % (2.0-8.0); NEUTROPHILS # 5.3 10^3/uL (1.5-8.5); NEUTROPHILS % 59.6 % (36.0-66.0); PLATELET COUNT, AUTOMATED 350 10^3/uL (150-450); RED BLOOD COUNT 4.34 10^6/uL (4.00-5.40); WHITE BLOOD COUNT 8.8 10^3/uL (4.0-10.0)
[2020-07-13] MEDS ORDERED: DICYCLOMINE 10 MG CAP PO ONE (15:05)
[2020-07-13 15:20] LABS: ALBUMIN 3.5 GM/DL (3.2-5.2); ALT/SGPT 51 U/L (12-78); BILIRUBIN,DIRECT < 0.1 MG/DL (0.0-0.2); BILIRUBIN,TOTAL 0.2 MG/DL (0.2-1.0); LIPASE 115 U/L (73-393); TOTAL PROTEIN 7.6 GM/DL (6.4-8.2)
[2020-07-13] MEDS ORDERED: ULTR50TA8 PO (16:02)
[2020-07-13 16:18] VITALS: BP 131/90
== END 2020-07-13 16:19 | disposition home or self-care (01) ==
LOC: M ED 13:43
DX: R10.9 Unspecified abdominal pain (principal); R11.0 Nausea; I10 Essential (primary) hypertension; J45.909 Unspecified asthma, uncomplicated; D64.9 Anemia, unspecified; K76.0 Fatty (change of) liver, not elsewhere classified; F41.9 Anxiety disorder, unspecified; K21.9 Gastro-esophageal reflux disease without esophagitis; Z86.711 Personal history of pulmonary embolism; Z87.19 Personal history of other diseases of the digestive system; Z79.899 Other long term (current) drug therapy; Z88.0 Allergy status to penicillin; Z88.8 Allergy status to other drugs, medicaments and biological substances

== ENCOUNTER 2020-07-19 16:46 | Emergency (ER) | payer OTHER ==
[~2020-07-19] VITALS: Ht 152.4 cm; Wt 125.0 kg
[2020-07-19 17:27] LABS: BASO % 0.2 % (0.0-1.0); EOS # 0.1 10^3/uL (0.0-0.5); EOS % 1.2 % (0.0-3.0); HEMATOCRIT 34.9 % (36.0-47.0); HEMOGLOBIN 11.2 g/dl (12.0-15.5); LYMPH # 2.2 10^3/uL (1.5-5.0); LYMPH % 33.3 % (24.0-44.0); MEAN CORPUSCULAR HEMOGLOBIN 27.7 pg (27.0-33.0); MEAN CORPUSCULAR HGB CONC 32.1 g/dl (32.0-36.5); MEAN CORPUSCULAR VOLUME 86.4 fl (80.0-96.0); MONO # 0.5 10^3/uL (0.0-0.8); MONO % 7.8 % (2.0-8.0); NEUTROPHILS # 3.8 10^3/uL (1.5-8.5); PLATELET COUNT, AUTOMATED 318 10^3/uL (150-450); RED BLOOD COUNT 4.04 10^6/uL (4.00-5.40); WHITE BLOOD COUNT 6.6 10^3/uL (4.0-10.0)
[2020-07-19 17:56] LABS: ALBUMIN 3.6 GM/DL (3.2-5.2); ALT/SGPT 46 U/L (12-78); BILIRUBIN,DIRECT 0.1 MG/DL (0.0-0.2); BILIRUBIN,TOTAL 0.2 MG/DL (0.2-1.0); BLOOD UREA NITROGEN 11 MG/DL (7-18); CARBON DIOXIDE LEVEL 27 MEQ/L (21-32); CHLORIDE LEVEL 109 MEQ/L (98-107); CREATININE FOR GFR 0.72 MG/DL (0.55-1.30); GLOMERULAR FILTRATION RATE > 60.0 (>60); GLUCOSE, FASTING 102 MG/DL (70-100); LIPASE 108 U/L (73-393); POTASSIUM SERUM 3.7 MEQ/L (3.5-5.1); SODIUM LEVEL 141 MEQ/L (136-145)
[2020-07-19 18:07] LABS: HCG, SERUM QUALITATIVE NEGATIVE (NEGATIVE)
[2020-07-19] MEDS ORDERED: PERCOCET 5MG/325MG TAB PO ONE (18:10)
[2020-07-19 19:37] LABS: INR 0.92; PROTHROMBIN TIME 12.5 SECONDS (12.5-14.3)
[2020-07-19 19:38] LABS: PARTIAL THROMBOPLASTIN TIME 26.9 SECONDS (24.2-38.5)
--- NOTE | 2020-07-19 19:38 | REPVR ---
PROCEDURE INFORMATION: Exam: CT Abdomen And Pelvis Without Contrast Exam date and time: 07/19/2020 6:10 PM Age: 34 years old Clinical indication: Abdominal pain; Flank; Left; Additional info: Flank pain TECHNIQUE: Imaging protocol: Computed tomography of the abdomen and pelvis without contrast. Radiation optimization: All CT scans at this facility use at least one of these dose optimization techniques: automated exposure control; mA and/or kV adjustment per patient size (includes targeted exams where dose is matched to clinical indication); or iterative reconstruction. COMPARISON: CT ABD PELVIS W/O CONTRAST 07/06/2020 12:22 PM FINDINGS: Lungs: The lungs appear clear. Liver: There is moderate fatty infiltration of the liver with mild hepatomegaly similar to the previous exam of 07/06/2020. Gallbladder and bile ducts: There are surgical clips in the gallbladder fossa. There is no evidence of biliary dilatation. Pancreas: The pancreas is normal in size. Spleen: Normal spleen. Adrenal glands: Normal. No mass. Kidneys and ureters: There is no evidence of calcified stone right or left kidney. There is no evidence of hydronephrosis. Bowel: The cecum is in the right pelvis and there are surgical clips along the margin. The appendix is not identified. Stomach and bowel: There is no evidence of small bowel abnormality. Intraperitoneal space: There is no evidence of pneumoperitoneum. Vasculature: Unremarkable. No abdominal aortic aneurysm. Lymph nodes: Unremarkable. No enlarged lymph nodes. Urinary bladder: Unremarkable as visualized. Reproductive: Normal uterus. Normal-sized ovaries. Bones/joints: There is a small posterior disc protrusion L4-L5. Soft tissues: Normal appearing soft tissues. IMPRESSION: 1. No evidence of renal obstruction. 2. Mild hepatomegaly and moderate fatty infiltration of the liver. Electronically signed by: Ranjit Higgins On 07/19/2020 19:38:03 PM
[2020-07-19 20:31] VITALS: BP 136/82
[2020-07-19] MEDS ORDERED: OXYCODONE/APAP 5MG/325MG(BULK FOR ED) 1 TABLET PO ONE (20:35)
== END 2020-07-19 20:52 | disposition home or self-care (01) ==
LOC: M ED 16:46
DX: R10.9 Unspecified abdominal pain (principal); J45.909 Unspecified asthma, uncomplicated; Z86.711 Personal history of pulmonary embolism; Z79.01 Long term (current) use of anticoagulants; Z96.0 Presence of urogenital implants; Z88.0 Allergy status to penicillin; Z88.8 Allergy status to other drugs, medicaments and biological substances

== ENCOUNTER 2020-09-05 11:20 | Emergency (ER) | payer OTHER ==
[~2020-09-05] VITALS: Ht 154.9 cm; Wt 125.1 kg
[~2020-09-05 11:20] MED LIST changes: +BACTDSTA; -LOVE0.01; +LOVE0.01 SQ; -SULF1TAB93
[2020-09-05 11:25] VITALS: BP 145/90
[2020-09-05 11:57] LABS: BASO % 0.4 % (0.0-1.0); EOS # 0.1 10^3/uL (0.0-0.5); EOS % 0.9 % (0.0-3.0); HEMATOCRIT 39.5 % (36.0-47.0); HEMOGLOBIN 12.5 g/dl (12.0-15.5); LYMPH # 1.7 10^3/uL (1.5-5.0); LYMPH % 19.9 % (24.0-44.0); MEAN CORPUSCULAR HEMOGLOBIN 29.2 pg (27.0-33.0); MEAN CORPUSCULAR HGB CONC 31.6 g/dl (32.0-36.5); MEAN CORPUSCULAR VOLUME 92.3 fl (80.0-96.0); MONO # 0.5 10^3/uL (0.0-0.8); MONO % 5.8 % (2.0-8.0); NEUTROPHILS # 6.2 10^3/uL (1.5-8.5); NEUTROPHILS % 71.9 % (36.0-66.0); PLATELET COUNT, AUTOMATED 282 10^3/uL (150-450); RED BLOOD COUNT 4.28 10^6/uL (4.00-5.40); WHITE BLOOD COUNT 8.6 10^3/uL (4.0-10.0)
[2020-09-05 12:30] LABS: ALBUMIN 3.5 GM/DL (3.2-5.2); BILIRUBIN,DIRECT 0.1 MG/DL (0.0-0.2); BILIRUBIN,TOTAL 0.4 MG/DL (0.2-1.0); TOTAL PROTEIN 6.9 GM/DL (6.4-8.2)
[2020-09-05] MEDS ORDERED: NS 1,000 ML IV ONE (12:30)
[2020-09-05] MEDS ORDERED: ONDANSETRON 4MG/2ML VIAL IV ONE (12:30)
[2020-09-05] MEDS ORDERED: MORPHINE 4 MG/ML 1ML VIAL/SYRINGE (J2270) IV ONE ×2 (12:30→14:35)
--- NOTE | 2020-09-05 13:23 | REP ---
INDICATION: L flank pain, hematuria, h/o kidney stones. COMPARISON: 07/19/2020 also without contrast TECHNIQUE: Noncontrast enhanced stone protocol due to left flank pain. FINDINGS: The lung bases are clear and unchanged. Note is again made of decreased density throughout the hepatic parenchyma. The liver is mildly enlarged. Surgical clips are again seen in the gallbladder fossa. The spleen, pancreas, adrenal glands, and kidneys are unchanged. There is no nephroureterolithiasis, hydronephrosis, or hydroureter. There are no urinary bladder calcifications. There is a 2.6 cm sized low-density structure in left adnexa likely an ovarian cyst. There is no free fluid or free air. Limited evaluation of the abdominal aorta and para-regions show no changes from prior exam. Limited evaluation of the bowel loops and the mesenteries show no abnormalities. Bone window technique throughout the examination shows the osseous structures to be stable and intact. . IMPRESSION: 1. Fatty infiltration of the liver and mild hepatomegaly unchanged. 2. Dominant follicle versus small left ovarian cyst as described above. <Electronically signed by Wes Mancuso > 09/05/20 [id number]
--- NOTE | 2020-09-05 15:26 | REP ---
INDICATION: LLQ pain, ovarian cyst, r/o torsion. COMPARISON: 05/21/2018 TECHNIQUE: Transabdominal scanning. The patient refused transvaginal imaging. FINDINGS: The uterus measures 9.3 x 4.2 x 5.6 cm. The parenchymal echo pattern is within normal limits. The endometrial echo complex measures 11 mm in its greatest thickness. There is a 1 cm sized echogenic focus seen within the ECC. This represents a change from the prior exam. The right ovary was not seen. Left ovary measures 3 x 3.2 x 2.7 cm. Within the left ovary there is a 2.6 cm sized anechoic structure which exhibits posterior wall enhancement and increased through transmission. Urinary bladder measures 4 x 4 x 7 cm. IMPRESSION: 1. Echogenic focus seen in the endometrium as described above the etiology of which is uncertain. Two-month follow-up is recommended. 2. Simple appearing left ovarian cyst. <Electronically signed by Wes Mancuso > 09/05/20 [id number]
--- NOTE | 2020-09-06 11:56 | ED PDOC ---
Post-Departure Follow-Up radiology report faxed to boby Villarreal Sarah MD Sep 06, 2020 11:56
== END 2020-09-05 15:33 | disposition left against medical advice (07) ==
LOC: M ED 11:20
DX: R10.9 Unspecified abdominal pain (principal); K76.0 Fatty (change of) liver, not elsewhere classified; J45.909 Unspecified asthma, uncomplicated; I10 Essential (primary) hypertension; F41.9 Anxiety disorder, unspecified; Z79.01 Long term (current) use of anticoagulants; Z87.19 Personal history of other diseases of the digestive system; Z87.442 Personal history of urinary calculi; Z87.440 Personal history of urinary (tract) infections; Z87.448 Personal history of other diseases of urinary system; Z86.2 Personal history of diseases of the blood and blood-forming organs and certain disorders involving the immune mechanism; Z90.49 Acquired absence of other specified parts of digestive tract; Z98.890 Other specified postprocedural states; Z82.49 Family history of ischemic heart disease and other diseases of the circulatory system; Z80.1 Family history of malignant neoplasm of trachea, bronchus and lung
CPT/HCPCS: 74176; 76856; 80047; 80076; 81001; 83690; 84702; 85025; 87086; 93976; 96374; 96375; 96376; 99284; J2270; J2405

== ENCOUNTER 2020-09-26 08:28 | Emergency (ER) | payer OTHER ==
[~2020-09-26] VITALS: Ht 152.4 cm; Wt 126.1 kg
[2020-09-26] MEDS ORDERED: TYLE650T38 PO (08:34)
[2020-09-26] MEDS ORDERED: MORPHINE 4 MG/ML 1ML VIAL/SYRINGE (J2270) IV ONE ×2 (08:50→11:05)
[2020-09-26] MEDS ORDERED: NS 1,000 ML IV ONE (08:50)
[2020-09-26] MEDS ORDERED: ONDANSETRON 4MG/2ML VIAL IV ONE (08:50)
[2020-09-26 09:16] LABS: BASO % 0.5 % (0.0-1.0); EOS # 0.1 10^3/uL (0.0-0.5); EOS % 1.2 % (0.0-3.0); HEMATOCRIT 40.3 % (36.0-47.0); HEMOGLOBIN 13.1 g/dl (12.0-15.5); LYMPH % 30.3 % (24.0-44.0); MEAN CORPUSCULAR HEMOGLOBIN 30.3 pg (27.0-33.0); MEAN CORPUSCULAR HGB CONC 32.5 g/dl (32.0-36.5); MEAN CORPUSCULAR VOLUME 93.3 fl (80.0-96.0); MONO # 0.5 10^3/uL (0.0-0.8); MONO % 7.5 % (2.0-8.0); NEUTROPHILS % 59.7 % (36.0-66.0); PLATELET COUNT, AUTOMATED 284 10^3/uL (150-450); RED BLOOD COUNT 4.32 10^6/uL (4.00-5.40); WHITE BLOOD COUNT 6.6 10^3/uL (4.0-10.0)
[2020-09-26 09:30] LABS: INR 0.9; PROTHROMBIN TIME 12.3 SECONDS (12.5-14.3)
[2020-09-26 09:31] LABS: PARTIAL THROMBOPLASTIN TIME 23.5 SECONDS (24.2-38.5)
[2020-09-26 09:38] LABS: HCG, SERUM QUALITATIVE NEGATIVE (NEGATIVE)
[2020-09-26 09:56] LABS: ALBUMIN 3.6 GM/DL (3.2-5.2); ALT/SGPT 65 U/L (12-78); BILIRUBIN,DIRECT < 0.1 MG/DL (0.0-0.2); BILIRUBIN,TOTAL 0.3 MG/DL (0.2-1.0); BLOOD UREA NITROGEN 13 MG/DL (7-18); CARBON DIOXIDE LEVEL 23 MEQ/L (21-32); CHLORIDE LEVEL 108 MEQ/L (98-107); CREATININE FOR GFR 0.72 MG/DL (0.55-1.30); GLOMERULAR FILTRATION RATE > 60.0 (>60); GLUCOSE, FASTING 101 MG/DL (70-100); LIPASE 100 U/L (73-393); POTASSIUM SERUM 4.3 MEQ/L (3.5-5.1); SODIUM LEVEL 140 MEQ/L (136-145); TOTAL PROTEIN 7.2 GM/DL (6.4-8.2)
--- NOTE | 2020-09-26 10:13 | REP ---
INDICATION: L flank pain COMPARISON: 09/05/2020 TECHNIQUE: Axial noncontrast images from the lung bases to the pubic symphysis with coronal and sagittal reformations. This CT examination was performed using the following dose reduction techniques: Automated exposure control, adjustment of mA and/or kv according to the patient's size, and use of iterative reconstruction technique. FINDINGS: Lung bases are clear. Visualized heart and pericardium normal. Liver again demonstrates diffuse fatty infiltration. Spleen, pancreas, bilateral adrenal glands and kidneys are normal. The enteric system is unremarkable and without obstruction or acute inflammatory process. Prior appendectomy noted. Sigmoid diverticulosis without acute diverticulitis. Pelvis demonstrates normal bladder and age-appropriate uterus/adnexa. No ascites. No free air. No adenopathy. No focal inflammatory stranding. Abdominal aorta without aneurysm. Musculoskeletal structures are intact and without acute osseous abnormality. IMPRESSION: No acute abdominopelvic pathology appreciated. Hepatosteatosis. <Electronically signed by Jason Louis > 09/26/20 [id number]
[2020-09-26 13:42] VITALS: BP 145/82
== END 2020-09-26 13:44 | disposition home or self-care (01) ==
LOC: M ED 08:28
DX: M54.5 Low back pain (principal); R31.9 Hematuria, unspecified; R11.0 Nausea; D64.9 Anemia, unspecified; E61.1 Iron deficiency; Z79.899 Other long term (current) drug therapy; Z88.0 Allergy status to penicillin; Z88.8 Allergy status to other drugs, medicaments and biological substances
CPT/HCPCS: 74176; 80048; 80076; 81001; 83690; 84703; 85025; 85610; 85730; 87086; 96361; 96374; 96375; 96376; 99284; J2270; J2405

== ENCOUNTER 2020-10-23 13:54 | Emergency (ER) | payer OTHER ==
[~2020-10-23] VITALS: Ht 154.9 cm; Wt 123.6 kg
[~2020-10-23 13:54] MED LIST changes: +TYLE650T38 PO
[2020-10-23 18:02] VITALS: BP 140/96
== END 2020-10-23 20:51 | disposition left against medical advice (07) ==
LOC: M ED 13:54
DX: Z53.21 Procedure and treatment not carried out due to patient leaving prior to being seen by health care provider (principal)

== ENCOUNTER 2020-10-30 13:01 | Emergency (ER) | payer OTHER ==
[~2020-10-30] VITALS: Ht 154.9 cm; Wt 118.2 kg
[2020-10-30] MEDS ORDERED: MORPHINE 4 MG/ML 1ML VIAL/SYRINGE (J2270) IV ONE (15:20)
[2020-10-30] MEDS ORDERED: ONDANSETRON 4MG/2ML VIAL IV ONE (15:20)
[2020-10-30] MEDS ORDERED: NS 1,000 ML IV ONE (15:20)
--- NOTE | 2020-10-30 15:59 | REP ---
INDICATION: L flank pain, h/o kidney stones. COMPARISON: 08/27/2020. TECHNIQUE: Real-time sonographic evaluation of the kidneys is performed. FINDINGS: Renal cortical echogenicity pattern is normal bilaterally and contours are smooth. There is no evidence of hydronephrosis, cyst, mass, or calculus in either kidney. The right kidney measures 9.8 x 5.6 x 4.3 cm. Left renal dimensions are 10.0 x 5.6 x 4.8 cm. IMPRESSION: Negative renal ultrasound. <Electronically signed by Keenan Frederick > 10/30/20 [id number]
[2020-10-30 16:01] LABS: WHITE BLOOD COUNT 10.1 10^3/uL (4.0-10.0)
[2020-10-30 16:02] LABS: BASO % 0.4 % (0.0-1.0); EOS # 0.1 10^3/uL (0.0-0.5); EOS % 0.8 % (0.0-3.0); HEMATOCRIT 39.9 % (36.0-47.0); HEMOGLOBIN 13.2 g/dl (12.0-15.5); LYMPH # 2.4 10^3/uL (1.5-5.0); LYMPH % 23.8 % (24.0-44.0); MEAN CORPUSCULAR HEMOGLOBIN 30.9 pg (27.0-33.0); MEAN CORPUSCULAR HGB CONC 33.1 g/dl (32.0-36.5); MEAN CORPUSCULAR VOLUME 93.4 fl (80.0-96.0); MONO # 0.6 10^3/uL (0.0-0.8); MONO % 5.9 % (2.0-8.0); NEUTROPHILS # 6.9 10^3/uL (1.5-8.5); NEUTROPHILS % 68.3 % (36.0-66.0); PLATELET COUNT, AUTOMATED 330 10^3/uL (150-450); RED BLOOD COUNT 4.27 10^6/uL (4.00-5.40)
[2020-10-30 16:24] LABS: ALBUMIN 3.6 GM/DL (3.2-5.2); ALT/SGPT 58 U/L (12-78); BILIRUBIN,DIRECT 0.1 MG/DL (0.0-0.2); BILIRUBIN,TOTAL 0.3 MG/DL (0.2-1.0); BLOOD UREA NITROGEN 17 MG/DL (7-18); CALCIUM LEVEL 8.9 MG/DL (8.5-10.1); CARBON DIOXIDE LEVEL 26 MEQ/L (21-32); CHLORIDE LEVEL 108 MEQ/L (98-107); CREATININE FOR GFR 0.74 MG/DL (0.55-1.30); GLOMERULAR FILTRATION RATE > 60.0 (>60); GLUCOSE, FASTING 91 MG/DL (70-100); LIPASE 105 U/L (73-393); POTASSIUM SERUM 3.8 MEQ/L (3.5-5.1); SODIUM LEVEL 139 MEQ/L (136-145); TOTAL PROTEIN 7.4 GM/DL (6.4-8.2)
[2020-10-30] MEDS ORDERED: CIPROFLOXACIN 500MG TABLET PO ONE (17:00)
[2020-10-30] MEDS ORDERED: CIPR500T39 PO (17:07)
[2020-10-30 17:40] VITALS: BP 144/99
== END 2020-10-30 17:53 | disposition home or self-care (01) ==
LOC: M ED 13:01
DX: N39.0 Urinary tract infection, site not specified (principal); N12 Tubulo-interstitial nephritis, not specified as acute or chronic; I10 Essential (primary) hypertension; K76.0 Fatty (change of) liver, not elsewhere classified; D64.9 Anemia, unspecified; F41.9 Anxiety disorder, unspecified; Z86.711 Personal history of pulmonary embolism; Z87.19 Personal history of other diseases of the digestive system; Z88.0 Allergy status to penicillin; Z88.8 Allergy status to other drugs, medicaments and biological substances
CPT/HCPCS: 76775; 80048; 80076; 81001; 83690; 84702; 85025; 87086; 96361; 96374; 96375; 99284; J2270; J2405

== ENCOUNTER 2020-11-29 08:50 | Emergency (ER) | payer OTHER ==
[~2020-11-29] VITALS: Ht 154.9 cm; Wt 129.1 kg
[2020-11-29] MEDS ORDERED: CYCL-707 PO (11:58)
[2020-11-29 12:13] VITALS: BP 136/84
== END 2020-11-29 12:15 | disposition home or self-care (01) ==
LOC: M ED 08:50
DX: S39.012A Strain of muscle, fascia and tendon of lower back, initial encounter (principal); X50.9XXA Other and unspecified overexertion or strenuous movements or postures, initial encounter; Y92.89 Other specified places as the place of occurrence of the external cause; Y99.0 Civilian activity done for income or pay; R31.9 Hematuria, unspecified; Z88.0 Allergy status to penicillin

== ENCOUNTER 2020-12-24 13:02 | Emergency (ER) | payer OTHER ==
[~2020-12-24] VITALS: Ht 154.9 cm; Wt 124.6 kg
[~2020-12-24 13:02] MED LIST changes: +CYCL-707 PO
[2020-12-24] MEDS ORDERED: NS 1,000 ML IV ONE (17:20)
[2020-12-24] MEDS ORDERED: MORPHINE 4 MG/ML 1ML VIAL/SYRINGE (J2270) IV ONE (17:20)
[2020-12-24 18:10] LABS: BASO % 0.3 % (0.0-1.0); EOS # 0.1 10^3/uL (0.0-0.5); EOS % 1.5 % (0.0-3.0); HEMATOCRIT 40.6 % (36.0-47.0); HEMOGLOBIN 13.5 g/dl (12.0-15.5); LYMPH # 2.5 10^3/uL (1.5-5.0); LYMPH % 32.5 % (24.0-44.0); MEAN CORPUSCULAR HEMOGLOBIN 31.4 pg (27.0-33.0); MEAN CORPUSCULAR HGB CONC 33.3 g/dl (32.0-36.5); MEAN CORPUSCULAR VOLUME 94.4 fl (80.0-96.0); MONO # 0.5 10^3/uL (0.0-0.8); MONO % 6.3 % (2.0-8.0); NEUTROPHILS # 4.4 10^3/uL (1.5-8.5); NEUTROPHILS % 58.7 % (36.0-66.0); PLATELET COUNT, AUTOMATED 308 10^3/uL (150-450); WHITE BLOOD COUNT 7.6 10^3/uL (4.0-10.0)
[2020-12-24 18:14] VITALS: BP 166/81
[2020-12-24 18:25] LABS: ALBUMIN 3.6 GM/DL (3.2-5.2); BILIRUBIN,DIRECT 0.1 MG/DL (0.0-0.2); BILIRUBIN,TOTAL 0.3 MG/DL (0.2-1.0); TOTAL PROTEIN 7.3 GM/DL (6.4-8.2)
--- NOTE | 2020-12-24 19:48 | REPVR ---
PROCEDURE INFORMATION: Exam: CT Abdomen And Pelvis Without Contrast Exam date and time: 12/24/2020 5:18 PM Age: 35 years old Clinical indication: Pain; Other: Left flank; Additional info: L flank pain TECHNIQUE: Imaging protocol: Computed tomography of the abdomen and pelvis without contrast. Radiation optimization: All CT scans at this facility use at least one of these dose optimization techniques: automated exposure control; mA and/or kV adjustment per patient size (includes targeted exams where dose is matched to clinical indication); or iterative reconstruction. COMPARISON: CT ABD PELVIS W/O CONTRAST 09/26/2020 9:58 AM FINDINGS: Lungs: No suspicious mass or airspace process in the visualized lung bases. Liver: Liver is decreased in density, consistent with fatty infiltration. Gallbladder and bile ducts: Gallbladder is surgically absent. Pancreas: Noncontrast pancreas shows no obvious mass or adjacent fluid. Spleen: Noncontrast spleen shows no obvious focal deformity. Adrenal glands: Adrenal glands are normal in appearance. Kidneys and ureters: Kidneys show no stone or hydronephrosis. Stomach and bowel: Limited evaluation without enteric or IV contrast. No evidence of small bowel obstruction. Diverticular changes are present within the colon without inflammation. Appendix: Appendix is not visualized. Cecal tip suture line suggests prior appendix resection. Intraperitoneal space: No pneumoperitoneum. Vasculature: No aortic aneurysm. Retroaortic left renal vein is present. Lymph nodes: No enlarged lymph nodes. Urinary bladder: Urinary bladder appears normal. Reproductive: Female reproductive organs appear unremarkable. Bones/joints: No effacement of normal fat planes in the ischiorectal fossa. Bony structures show no acute fracture or destructive process. Soft tissues: Fat containing umbilical hernia is present. No concerning focal abnormality of the extra-abdominal and pelvic soft tissues. IMPRESSION: 1. No acute bowel abnormality. 2. Hepatomegaly and hepatic steatosis. No biliary obstruction or focal mass apparent. 3. Scattered colonic diverticula with no evidence of active diverticulitis Electronically signed by: Rubén Heard On 12/24/2020 19:48:15 PM
== END 2020-12-25 11:24 | disposition home or self-care (01) ==
LOC: M ED 13:02
DX: R31.9 Hematuria, unspecified (principal); R10.9 Unspecified abdominal pain; R11.2 Nausea with vomiting, unspecified; I10 Essential (primary) hypertension; D64.9 Anemia, unspecified; F41.9 Anxiety disorder, unspecified; Z79.899 Other long term (current) drug therapy; Z88.0 Allergy status to penicillin; Z88.8 Allergy status to other drugs, medicaments and biological substances
CPT/HCPCS: 74176; 80047; 80076; 81001; 83690; 84702; 85025; 87086; 96374; 99283; J2270

== ENCOUNTER 2021-01-11 13:57 | Emergency (ER) | payer OTHER ==
[~2021-01-11] VITALS: Ht 154.9 cm; Wt 124.2 kg
[2021-01-11] MEDS ORDERED: NS 1,000 ML IV ONE (17:25)
[2021-01-11] MEDS ORDERED: ACETAMINOPHEN 500 MG TAB PO ONE (17:25)
--- NOTE | 2021-01-11 18:14 | REPVR ---
PROCEDURE INFORMATION: Exam: CT Abdomen And Pelvis Without Contrast Exam date and time: 01/11/2021 5:21 PM Age: 35 years old Clinical indication: Pain; Other: Left flank; Additional info: L flank pain, hematuria, HX stones TECHNIQUE: Imaging protocol: Computed tomography of the abdomen and pelvis without contrast. Radiation optimization: All CT scans at this facility use at least one of these dose optimization techniques: automated exposure control; mA and/or kV adjustment per patient size (includes targeted exams where dose is matched to clinical indication); or iterative reconstruction. COMPARISON: CT ABD PELVIS W/O CONTRAST 12/24/2020 6:32 PM FINDINGS: Diaphragm: Small reduced hiatal hernia. Liver: There is a diffuse decrease in hepatic parenchymal density, consistent with steatosis. Hepatomegaly. Gallbladder and bile ducts: There has been a cholecystectomy. Pancreas: Normal. No ductal dilation. Spleen: Normal. No splenomegaly. Adrenal glands: Normal. No mass. Kidneys and ureters: Normal. No hydronephrosis. Stomach and bowel: Mild diverticulosis is present in the left colon. No diverticulitis. Appendix: There has been an appendectomy. Intraperitoneal space: Unremarkable. No free air. No significant fluid collection. Vasculature: Unremarkable. No abdominal aortic aneurysm. Lymph nodes: Unremarkable. No enlarged lymph nodes. Urinary bladder: Bladder incompletely distended and as such evaluation is limited. Reproductive: Unremarkable as visualized. Bones/joints: Mild central spinal stenosis L4-L5. Soft tissues: Unremarkable. IMPRESSION: 1. There is a diffuse decrease in hepatic parenchymal density, consistent with steatosis. Hepatomegaly. 2. There has been a cholecystectomy. 3. Mild diverticulosis is present in the left colon. No diverticulitis. Electronically signed by: Emeterio Sherwood On 01/11/2021 18:14:20 PM
--- OUTSIDE RECORDS SUMMARY | 2021-01-11 19:42 | CCD | Continuity of Care Document ---
Author Author [facility] Organization [facility] Address [address] [place] [address] Care Team Providers Care Endoscopy Nurse Name Role Phone JEROME PAIGE Admphys JEROME PAIGE Attphys Allergies and Intolerances Code Code System Allergy Substance Type Reaction Severity Start Da te End Date Status 20231022 RXNorm Motrin Drug allergy (disorder) on blood thinner Unknown Active 7984 RXNorm Penicillin V Drug allergy (disorder) Rash Mild 12/1983 Active Medications RxNorm Medication Dose Route Instructions Start Date End Date Stat us 840508 0.8 ML enoxaparin sodium 150 MG/ML Prefilled Syringe 1 20 mg subcutaneous subcutaneously every 12 hours (*11/01/20 x30 ds) Active 70818 cetirizine 10 mg oral orally daily (*11/01/20 x30 ds) Active Multivitamins Tablet 1 tab oral orally daily Active 0929642 acetaminophen 325 MG / oxycodone hydrochloride 5 MG Oral Tablet 1 tab oral orally every 6 hours as needed. (*11/13/20 #12 x3 ds - MDD4) Completed 19971021 topiramate 25 MG Oral Tablet 25 mg oral orally 2 times per day (*11/01/20 x30 ds) Completed Medications At Time Of Discharge RxNorm Medication Dose Route Instructions Start Date End Date Stat us 751649 0.8 ML enoxaparin sodium 150 MG/ML Prefilled Syringe 1 20 mg subcutaneous subcutaneously every 12 hours (*11/01/20 x30 ds) Active 04342 cetirizine 10 mg oral orally daily (*11/01/20 x30 ds) Active Multivitamins Tablet 1 tab oral orally daily Active Problems Code Code System Problem Name Start Date End Date Status 85871543 SNOMED-CT Kidney stone 2014 Active 33412455 SNOMED-CT Hypercholesterolemia U Acti ve 508110947 SNOMED-CT Asthma U Active Procedures Code Code System Procedure Date 07930893 SNOMED CT Appendectomy U 08468417 SNOMED CT Cholecystectomy U Results Laboratory Results Order: AMYLASE Specimen Source: Body Site: Legend: (G,H) = High, (GG,HH,CH,#H) = Above High Threshold, (#,L) = Low, (##,CL ,#L,LL) = Below Low Threshold, (C,CC,CA,#A,A) = Abnormal LOINC Test Result Flag Range Units Date 1AMYLASE 45 25-125 U/L 12/06/2020 19:00 * Performing Lab Footnotes:* [facility] - [id number] - [address] [place] [address] MARIANA SAXENA 1 Order: CBC DIFF Specimen Source: Body Site: Legend: (G,H) = High, (GG,HH,CH,#H) = Above High Threshold, (#,L) = Low, (##,CL ,#L,LL) = Below Low Threshold, (C,CC,CA,#A,A) = Abnormal LOINC Test Result Flag Range Units Date 1WBC 9.7 4.8-10.8 K/uL 12/06/2020 19:00 1RBC 4.08 L 4.20-5.40 M/uL 12/06/2020 19:00 1HEMOGLOBIN 13.5 12.0-16.0 gm/dL 12/06/2020 19:00 1HEMATOCRIT 39.0 36.0-48.0 % 12/06/2020 19:00 1MCV 95.5 80.0-100.0 fL 12/06/2020 19:00 1MCHC 34.7 30.0-36.5 % 12/06/2020 19:00 1MCH 33.1 27.0-34.0 pg 12/06/2020 19:00 1RDW 12.2 11.0-15.0 % 12/06/2020 19:00 1PLATELET 266 130-450 K/uL 12/06/2020 19:00 1MPV 7.0 6.0-12.0 fL 12/06/2020 19:00 1NE% 65 37-80 % 12/06/2020 19:00 1LY% 27 10-50 % 12/06/2020 19:00 1MO% 6 0-12 % 12/06/2020 19:00 1EO% 1 <=8 % 12/06/2020 19:00 1BA% 0 <=3 % 12/06/2020 19:00 1NE# 6.3 1.8-8.6 K/uL 12/06/2020 19:00 1LYMPH# 2.6 0.5-5.0 K/uL 12/06/2020 19:00 1MONO# 0.6 0.0-1.3 K/uL 12/06/2020 19:00 1EOS# 0.1 0.0-0.9 K/uL 12/06/2020 19:00 1BASO# 0.0 0.0-0.3 K/ul 12/06/2020 19:00 * Performing Lab Footnotes:* [facility] - [id number] - [address] [place] [id number] MARIANA SAXENA 1 Order: COMPREHENSIVE PANEL Specimen Source: Body Site: Legend: (G,H) = High, (GG,HH,CH,#H) = Above High Threshold, (#,L) = Low, (##,CL ,#L,LL) = Below Low Threshold, (C,CC,CA,#A,A) = Abnormal LOINC Test Result Flag Range Units Date 1SODIUM 137 136-145 mmol/L 12/06/2020 19:00 1POTASSIUM 3.7 3.5-5.2 mmol/L 12/06/2020 19:00 1CHLORIDE 104 100-108 mmol/L 12/06/2020 19:00 1CO2 21 21-32 mmol/L 12/06/2020 19:00 1GLUCOSE 86 70-100 mg/dL 12/06/2020 19:00 1BUN 13 7-21 mg/dL 12/06/2020 19:00 1CREATININE 0.8 0.6-1.3 mg/dL 12/06/2020 19:00 Interpretive Natalia: 1Normal Kidney Function or M ild Disease - GFR >OR= 60 Chronic Kidney Disease - GFR 15-59 Renal Failure - GFR < 15 GFR not calculated on patients under 18 years of age. Calculated (estimated) GFR is based on the MDRD Study equation, which assumes a steady state for creatinine. Estimated GFR may not be appropriate for medication dosing. 1CALCIUM 10.2 8.5-10.8 mg/dL 12/06/2020 19:00 1GFR >60 12/06/2020 19:00 1T BILI 0.5 0.0-1.2 mg/dL 12/06/2020 19:00 1T PROTEIN 7.4 6.4-8.2 gm/dL 12/06/2020 19:00 1ALBUMIN 4.1 3.4-4.8 gm/dL 12/06/2020 19:00 1ALK PHOS 104 40-150 U/L 12/06/2020 19:00 1ALT (SGPT) 47 0-55 U/L 12/06/2020 19:00 1AST (SGOT) 40 H 5-37 U/L 12/06/2020 19:00 * Performing Lab Footnotes:* [facility] - [id number] - [address] [place] [id number] MARIANA SAXENA 1 Order: LIPASE Specimen Source: Body Site: Legend: (G,H) = High, (GG,HH,CH,#H) = Above High Threshold, (#,L) = Low, (##,CL ,#L,LL) = Below Low Threshold, (C,CC,CA,#A,A) = Abnormal LOINC Test Result Flag Range Units Date 1LIPASE 20 8-78 U/L 12/06/2020 19:00 * Performing Lab Footnotes:* [facility] - [id number] - [address] [place] [address] MARIANA SAXENA 1 Order: TEST - SERUM Specimen Source: Body Site: Legend: (G,H) = High, (GG,HH,CH,#H) = Above High Threshold, (#,L) = Low, (##,CL ,#L,LL) = Below Low Threshold, (C,CC,CA,#A,A) = Abnormal LOINC Test Result Flag Range Units Date 1SERUM TEST NEGATIVE 12/06/2020 19:00 1Detection Level: >=10 mIU/m L * Performing Lab Footnotes:* [facility] - [id number] - [address] [place] [address] MARIANA SAXENA 1 Order: PT/INR Specimen Source: Body Site: Legend: (G,H) = High, (GG,HH,CH,#H) = Above High Threshold, (#,L) = Low, (##,CL ,#L,LL) = Below Low Threshold, (C,CC,CA,#A,A) = Abnormal LOINC Test Result Flag Range Units Date 1PROTIME 12.3 9.4-12.4 sec 12/06/2020 19:00 1INR 1.1 12/06/2020 19:00 Interpretive Natalia: 1 INR INTERPERTATIO N 2.0-3.0 THERAPEUTIC MONITORING 2.5-3.5 HEART VALVE REPLACEMENT * Performing Lab Footnotes:* [facility] - [id number] - [address] [place] [address] MARIANA SAXENA 1 Order: PTT Specimen Source: Body Site: Legend: (G,H) = High, (GG,HH,CH,#H) = Above High Threshold, (#,L) = Low, (##,CL ,#L,LL) = Below Low Threshold, (C,CC,CA,#A,A) = Abnormal LOINC Test Result Flag Range Units Date 1PTT 32.0 25.6-36.4 sec 12/06/2020 19:00 * Performing Lab Footnotes:* [facility] - [id number] - [address] [place] [address] MARIANA SAXENA 1 Order: URINALYSIS ROUTINE Specimen Source: Body Site: Legend: (G,H) = High, (GG,HH,CH,#H) = Above High Threshold, (#,L) = Low, (##,CL ,#L,LL) = Below Low Threshold, (C,CC,CA,#A,A) = Abnormal LOINC Test Result Flag Range Units Date 1COLOR LUIS M 12/06/2020 18:59 1APPEARANCE HAZY ! CLEAR 12/06/2020 18:59 1SPECIFIC GRAVITY 1.020 1.000-1.030 12/06/2020 18:59 1pH 5.0 5.0-8.0 12/06/2020 18:59 1LEUKOCYTES 2+ ! NEGATIVE 12/06/2020 18:59 1NITRATE NEGATIVE NEGATIVE 12/06/2020 18:59 1PROTEIN 100 [ 2+] ! NEGATIVE mg/dL 12/06/2020 18:59 1GLUCOSE NORMAL NORMAL mg/dL 12/06/2020 18:59 1KETONE NEGATIVE NEGATIVE mg/dL 12/06/2020 18:59 1UROBILINOGEN NORMAL NORMAL mg/dL 12/06/2020 18:59 1BILIRUBIN NEGATIVE NEGATIVE mg/dL 12/06/2020 18:59 1HEMOGLOBIN 3+ ! NEGATIVE 12/06/2020 18:59 * Performing Lab Footnotes:* [facility] - [id number] - [address] [place] [address] MARIANA SAXENA 1 Order: URINE MICROSCOPIC Specimen Source: Body Site: Legend: (G,H) = High, (GG,HH,CH,#H) = Above High Threshold, (#,L) = Low, (##,CL ,#L,LL) = Below Low Threshold, (C,CC,CA,#A,A) = Abnormal LOINC Test Result Flag Range Units Date 1URINE MICROSCOPIC EXAM 1WBC 5-10 ! 0-2 /HPF 12/06/2020 18:59 1RBC 5-10 ! NONE SEEN /HPF 12/06/2020 18:59 Interpretive Natalia: 1The [employer] has defined Microscopic Hematuria as 3 or more RBC per high powered field from a single positive urinalysis with microscopy. 1BACTERIA MANY ! NONE SEEN /HPF 12/06/2020 18:59 1EPITHELIAL CELLS MODERATE ! NONE SEEN /HPF 12/06/2020 18:59 * Performing Lab Footnotes:* [facility] - [id number] [place] [address] MARIANA SAXENA 1 Microbiology Results w Susceptibilities Order: CULTURE URINE Specimen Source: Urine Body Site: Urine * Cultural Observations:* Mixed growth consistent with vaginal elizabeth present 1 * Performing Lab Footnotes:* [facility] - [id number] [place] [address] MARIANA SAXENA 1 Radiology Results Order: RENAL/BLADDER U/S COMPLETE* Exam Completion Date:12/06/2020 18:11 12/06/2020 8:18 PM RENAL ULTRASOUND CLINICAL INFORMATION: DISORDER OF KIDN EY AND URETER, UNSPECIFIED, -- DISORDER OF KIDNEY AND URETER, UNSPECIFIED C OMPARISON: CT abdomen pelvis 06/28/2020, renal ultrasound 08/15/2020. TECHNIQUE : Sonographic evaluation of the kidneys and bladder was performed using graysca le ultrasound. FINDINGS: Right Kidney: 10.4 cm Echogenic Pattern: Normal Hydronephrosis: None Other: No calculi Focal Lesions: None Left Kidney: 10 .9 Echogenic Pattern: No Hydronephrosis: No Other: No calculi Focal Lesions: None Aorta: Nonaneurysmal Proximal Iliacs: Normal IVC Superior: Normal Bladder: Unremarkable, low post void residual IMPRESSION: Unremarka ble renal ultrasound. END OF IMPRESSION I have personally reviewed the dianna ges and the Resident's/Fellow's interpretation and agree with or edited the find ings. [facility] submits Radiology results to [facility] and [facility] then provides those same results to [facility]. Al l results are available to [facility] and [facility] provider portal users. [facility] DICOM images are available to the [facility] ctions provider portal users only. [facility] DICOM images are no t available to the [facility] provider portal users. There is no current [facility] cross-[facility] functionality allowing images to be available through the [facility] to [facility] connectivity. Interpreted By: Milton Trivedi MD Electronically signed By: Gokul Butler M.D. Read By: DANDRE BUTLER Date: 12/06/2020 20:52 Social History Code Code System Social History Observation Description D ates [id number] [facility] Current Smoking Status Never smoker UNK AdministrativeGender Sex Assigned At Unknown Vital Signs Code Code System Vitals Value Date 8310-5 LOINC Body Temperature 98.7 [degF] 12/06/2020 8865-8 LOINC Pulse Rate 105 {beats}/min 12/06/2020 9279-1 LOINC Respiratory Rate 20 /min 12/06/2020 53169-3 LOINC O2% BldC Oximetry 99 % 12/06/2020 8480-6 LOINC BP Systolic 149 mm[Hg] 12/06/2020 8462-4 LOINC BP Diastolic 106 mm[Hg] 12/06/2020 8302-2 LOINC Height 61 [in_i] 12/06/2020 36335-5 LOINC Weight 125.25 kg 12/06/2020 3140-1 LOINC Body surface area Derived from formula 2. 17 m2 12/06/2020 10387-8 LOINC BMI (Body Mass Index) 52.8 kg/m2 2020 Goals Section * No data in the system Health Concerns * No data in the system Encounter Diagnosis Date Code Code System Diagnosis Status R10.9 ICD10 UNSPECIFIED ABDOMINAL PAIN A ctive Advance Directives PT STATES NO ADVANCE DIRECTIVES Directive Type Effective Date Chart Collector Notes Supporting Document Name Address Phone No Directive Type specified 12/04/2016 4:25:00 AM Not Specified Not Specified Not Specified None No *RHIO - CONSENT IS YES Directive Type Effective Date Chart Collector Notes Supporting Document Name Address Phone No Directive Type specified 03/21/2015 10:30:20 AM Not Specified Not Specified Not Specified None No Encounters Encounter Diagnosis Location Date UNSPECIFIED ABDOMINAL PAIN [facility] 2020 Family History Relationship: Father () Health Problem Age At Onset Notes IN Relationship: Mother Health Problem Age At Onset Notes Benign essential hypertension 43 Years Functional Status * No data in the system Immunizations * No data in the system Medical Equipment * No data in the system Mental Status * No data in the system Assessment and Plan Assessments * No data in the system Plan Of Treatment * No data in the system Pending Tests * No data in the system Hospital Discharge Instructions * No data in the system Reason for Visit Reason for Visit Back Pain (Low)
--- OUTSIDE RECORDS SUMMARY | 2021-01-11 19:42 | CCD | Continuity of Care Document ---
Author Author [facility] Organization [facility] Address [address] [place] [address] Allergies and Intolerances Code Code System Allergy Substance Type Reaction Severity Start Da te End Date Status 20231022 RXNorm Motrin Drug allergy (disorder) on blood thinner Unknown Active 7984 RXNorm Penicillin V Drug allergy (disorder) Rash Mild 12/1983 Active Medications RxNorm Medication Dose Route Instructions Start Date End Date Stat us 676882 0.8 ML enoxaparin sodium 150 MG/ML Prefilled Syringe 1 20 mg subcutaneous subcutaneously every 12 hours (*11/01/20 x30 ds) Active cetirizine 10 mg oral orally daily (*11/01/20 x30 ds) Active Multivitamins Tablet 1 tab oral orally daily Active Medications At Time Of Discharge RxNorm Medication Dose Route Instructions Start Date End Date Stat us 424513 0.8 ML enoxaparin sodium 150 MG/ML Prefilled Syringe 1 20 mg subcutaneous subcutaneously every 12 hours (*11/01/20 x30 ds) Active cetirizine 10 mg oral orally daily (*11/01/20 x30 ds) Active Multivitamins Tablet 1 tab oral orally daily Active Problems Code Code System Problem Name Start Date End Date Status 04821556 SNOMED-CT Kidney stone 2015 Active 57983309 SNOMED-CT Hypercholesterolemia U Acti ve 403524205 SNOMED-CT Asthma U Active Procedures Code Code System Procedure Date 12366656 SNOMED CT [place] 06330295 SNOMED [address] Cholecystectomy U Results * No data in the system Social History Code Code System Social History Observation Description D ates Observed 954513350 SNOMED CT Current Smoking Status Never smoker UNK AdministrativeGender Sex Assigned At Unknown Vital Signs Code Code System Vitals Value Date 8310-5 LOINC Body Temperature 97.8 [degF] 10/17/2020 8865-8 LOINC Pulse Rate 72 {beats}/min 10/17/2020 9279-1 LOINC Respiratory Rate 18 /min 10/17/2020 56336-5 LOINC O2% BldC Oximetry 98 % 10/17/2020 8480-6 LOINC BP Systolic 141 mm[Hg] 10/17/2020 8462-4 LOINC BP Diastolic 114 mm[Hg] 10/17/2020 8302-2 LOINC Height 61 [in_i] 10/17/2020 47343-3 LOINC Weight 118.3 kg 10/17/2020 3140-1 LOINC Body surface area Derived from formula 2. 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
--- OUTSIDE RECORDS SUMMARY | 2021-01-11 19:42 | CCD | Continuity of Care Document ---
Author Author Isidro MARTINEZ PAOdiliaC Organization Unknown Address [address] [place] [address] Phone [phone] Care Team Providers Care Canteen Operator Name Role Phone Kemal Villarreal DO AUTM [phone] Jay Bush AUTM [phone] [facility] Orthopedic AUTM [phone] Problems Active Problems Provider Date Drug seeking behavior Kemal Villarreal D.O. Onset: 10/18/2020 Note: PER URGENT CARE H/O: pulmonary embolus Kemal Villarreal D.O. Onset: 04/13/2020 Note: ~ 2017 Major depressive disorder Kemal Villarreal D.O. Onset: 021 Generalized anxiety disorder Kemal Villarreal D.O. Onset: 03/18 Persistent insomnia Kemal Villarreal D.O. Onset: 04/15/2020 Malingerer Kemal Villarreal D.O. Onset: 09/21/2014 Non-alcoholic fatty liver Kemal Villarreal D.O. Onset: 015 Cyst of left ovary Kemal Villarreal D.O. Onset: 09/13/2020 Note: left ovary Social History Type Date Description Comments Sex Unknown Tobacco Use Start: Unknown Patient has never smoked Smoking Status Reviewed: 12/18/20 Patient has never smoked Allergies and adverse reactions Active Allergies Criticality Reaction | Severity Comments Date Cyclobenzaprine Unable to assess criticality rash 02/25/2013 Penicillin Unable to assess criticality rash rash 08/27/2012 NSAIDS Unable to assess criticality Taking Loven ox 06/04/2020 Medications Active Medications SIG Qnty Indications Ordering Provide r Date Tramadol HCL 50mg Tablets take 1 tablet once a day prn. This is a one time script 5tabs M54.50 Heather Martinez PA-C 12/18/2020 Lyrica 75mg Capsules 1 by mouth twice a day as needed 30caps M54.17 Michelle VerduzcoO. 12/10/2020 M54.5 Cetirizine HCL 10mg Tablets 1 by mouth every day 30tabs J31.0 Kemal Villarreal D.O. 07/26/2020 Lovenox 120mg/0.8ML Solution inject 0.8 milliliters sc twice a day 48ml Z79.01 Michelle VerduzcoOMark History Medications Topiramate 50mg Tablets 1 by mouth twice a day 60tabs M54.5 Kemal Villarreal D.O. 12/10/2020 - 12/18/2020 Topiramate 25mg Tablets 1 by mouth twice a day 60tabs M54.5 Michelle VerduzcoO. 11/01/2020 - 12/10/2020 Tizanidine HCL 4mg Capsules one by mouth every night prn 10caps M54.5 Michelle VerduzcoOMark 10/18/2020 - 11/01/2020 Sulfamethoxazole/Trimethoprim DS 800-160mg Tablets 1 by mouth twice a day N39.0 Michelle VerduzcoO. 09/13/2020 - 09/13/2020 Sulfamethoxazole/Trimethoprim DS 800-160mg Tablets 1 by mouth twice a day 6tabs N39.0 Michelle VerduzcoOMark 07/26/2020 - 09/13/2020 Hydrocodone-Acetaminophen 5-325mg Tablets one tablet every 24 hours as needed for pain This will not continue 10tabs Michelle VerduzcoOMark 07/26/2020 - 10/04/2020 Clindamycin HCL 300mg Capsules take 1 tab by mouth twice a day for 10 days 28caps K12.2 Isaac VerduzcoOMark 06/26/2020 - 07/26/2020 Methocarbamol 500mg Tablets take 1 tablet by mouth nightly as needed 30tabs M54.17 Michelle VerduzcoOMark - 11/01/2020 Medications Administered in Office Medication SIG Qnty Indications Ordering Provider Date Rocephin (Ceftriaxone) 1 Gram Inj salinaion Heather Martinez PA-C 06/04/2020 Immunizations CPT Code Status Date Vaccine Reaction Lot # [id number] Given 12/18/2020 Fluzone Quadrivalent 0.5 mL Pre-Filled 6 Mo & Older No Reaction [id number] Given 09/13/2020 MMR Virus Immunization No Reaction S [id number] Given 08/07/2020 MMR Virus Immunization No Reaction s [id number] Given 06/03/2013 Fluzone Trivalent Immunization 27050 Given 03/16/2007 Tetanus Toxoid Vital Signs Date Vital Result Comment 12/18/2020 12:45pm Body Temperature 97.1 F Forehead Weight 272.00 lb Heart Rate 76 /min BP Systolic 144 mmHg L Arm, Sitting BP Diastolic 102 mmHg L Arm, Sitting Respiratory Rate 18 /min Height 60 inches 5'0" BMI (Body Mass Index) 53.1 kg/m2 [place] Body Weight 100 lb O2 % BldC Oximetry 99 % Room Air Height in cm's 152.4 cm 11/01/2020 11:55am Body Temperature 97.3 F Weight 275.00 lb Heart Rate 86 /min BP Systolic 126 mmHg L Arm, Lrg cuff BP Diastolic 84 mmHg L Arm, Lrg cuff Respiratory Rate 16 /min Height 60 inches 5'0" BMI (Body Mass Index) 53.7 kg/m2 [place] Body Weight 100 lb O2 % BldC Oximetry 99 % Room Air Height in cm's 152.4 cm Results Test Acquired Date Facility Test Result H/L Range Note Urinalysis 12/03/2020 [facility] [phone] Color,Ur RED Abnormal Yellow Appearance,Ur CLOUDY Abnormal Clear PH,Ur 6.0 5.0-8.0 Specific [place],Ur 1.014 Normal 1.002-1.035 Protein,Ur 100 mg/dL Abnormal Negative Glucose, Ur NEGATIVE mg/dL Negative Ketones,Ur NEGATIVE mg/dL Negative Occult Blood,Ur LARGE Abnormal Negative Nitrate,Ur NEGATIVE Negative Leukocyte Esterase ,Ur TRACE Abnormal Negative Bilirubin,Ur NEGATIVE Negative Urobilinogen,Ur 0.2-1.0 EUMG/DL Neg-0-1.0 RBC,Ur >100 PERHPF Abnormal 0-2 Urine Epith MANY PER/LPF Few-Mod Bacteria,Ur RARE PERHPF None Mucus,Ur RARE PERHPF None Seen Laboratory test finding 11/01/2020 Done in Doctor's Office Glucose Fingerstick 91 Xray 11/01/2020 [facility] [address] [place] [address] [phone] CR Spine Lumbosac Complete W/Bend <pending> Laboratory test finding 10/30/2020 Located within [facility] iSTAT B-hCG < 5.0 Normal 1 CBC With Differential 10/30/2020 Located [facility] White Blood Count 10.1 10 High 4.0-10.0 Red Blood Count 4.27 10 Normal 4.00-5.40 Hemoglobin 13.2 g/dL Normal 12.0-15.5 Hematocrit 39.9 % Normal 36.0-47.0 Mean Corpuscular Volume 93.4 fl Normal 80.0-96.0 Mean Corpuscular Hemoglobin 30.9 pg Normal 27.0-33.0 Mean Corpuscular HGB Conc 33.1 g/dL Normal 32.0-36.5 Red Cell Distribution Width 14.0 % Normal 11.5-14.5 Platelet Count, Automated 330 10 Normal 150-450 Neutrophils % 68.3 % High 36.0-66.0 Lymph % 23.8 % Low 24.0-44.0 [place] % 5.9 % Normal 2.0-8.0 Eos % 0.8 % Normal 0.0-3.0 Baso % 0.4 % Normal 0.0-1.0 Immature Granulocyte % 0.8 % Normal 0-3.0 Nucleated Red Blood Cell % 0.0 % Normal 0-0 Neutrophils # 6.9 10 Normal 1.5-8.5 Lymph # 2.4 10 Normal 1.5-5.0 [place] # 0.6 10 Normal 0.0-0.8 Eos # 0.1 10 Normal 0.0-0.5 Baso # 0.0 10 Normal 0.0-0.2 Liver Profile 10/30/2020 [facility] Ast/Sgot 40 U/L High 7-37 Alt/SGPT 58 U/L Normal 12-78 Alkaline Phosphatase 112 U/L Normal 45-117 Bilirubin,Total 0.3 mg/dL Normal 0.2-1.0 Bilirubin,Direct 0.1 mg/dL Normal 0.0-0.2 Total Protein 7.4 GM/DL Normal 6.4-8.2 Albumin 3.6 GM/DL Normal 3.2-5.2 Albumin/Globulin Ratio 0.9 Low 1.2-2.2 Basic Metabolic Profile 10/30/2020 Located [facility] Glucose, Fasting 91 mg/dL Normal 70-100 Blood Urea Nitrogen 17 mg/dL Normal 7-18 Creatinine For GFR 0.74 mg/dL Normal 0.55-1.30 Glomerular Filtration Rate > 60.0 Normal >60 2 Sodium Level 139 mEq/L Normal 136-145 Potassium Serum 3.8 mEq/L Normal 3.5-5.1 Chloride Level 108 mEq/L High 98-107 Carbon Dioxide Level 26 mEq/L Normal 21-32 Anion Gap 5 mEq/L Low 8-16 Calcium Level 8.9 mg/dL Normal 8.5-10.1 Laboratory test finding 10/30/2020 [facility] Lipase 105 U/L Normal 73-393 Basic Metabolic Panel 10/06/2020 [facility] [phone] Sodium 139 mEq/L Normal 135-145 Potassium 3.8 mEq/L Normal 3.5-5.3 Chloride 108 mEq/L Normal 94-110 Carbon Dioxide 24 mEq/L Normal 22-33 Anion Gap 11 Normal 5-16 Blood Urea Nitro 14 mg/dL Normal 7-25 Creatinine 0.8 mg/dL Normal 0.6-1.4 GFR 81.2 mL/min 3 BUN/Creat Ratio 17 Normal 8-36 Glucose 82 mg/dL Normal 70-100 CA 9.6 mg/dL Normal 8.7-10.5 Laboratory test finding 10/06/2020 [facility] [phone] Glycosylated Hgba1c 4.9 % Normal 4.1-6.5 Laboratory test finding 10/06/2020 [facility] [phone] No Urine Received From Patient NO URINE RECEIVE <SEE N OTE> 4 Laboratory test finding 09/26/2020 [facility] Lipase 100 U/L Normal 73-393 HCG Serum Qualitative NEGATIVE Normal Negative Reflex Urine Culture 09/26/2020 [facility] Reflex Urine Culture FULL REPORT IN L <SEE NOTE> Normal 5 Ua W/ Reflex To Culture 09/26/2020 [facility] Appearance, Urine RFX CLOUDY High Clear Color, Urine RFX YELLOW Normal Yellow PH,Urine RFX 6.0 units Normal 5.0-9.0 Specific [place] Ur Auto RFX 1.021 Normal 1.002-1.035 Protein, Urine Auto RFX 2+ mg/dL High Negative Glucose, Urine (Ua) Auto RFX NEGATIVE mg/dL Normal Negative Ketone, Urine Auto RFX NEGATIVE mg/dL Normal Negative Urobilinogen, Urine Auto RFX 0.2 mg/dL Normal 0.0-2.0 Bilirubin, Urine Auto RFX NEGATIVE Normal Negative Nitrite, Urine Auto RFX NEGATIVE Normal Negative Leukocyte Esterase Ur Auto RFX 1+ High Negative Blood, Urine Blood RFX 3+ High Negative WBC, Urine Auto RFX 9 /HPF High 0-3 RBC, Urine Auto RFX TNTC /HPF High 0-3 Bacteria, Urine Auto RFX NEGATIVE Normal Negative Squam Epithelial Cell Ur Aurfx 9 /HPF Normal 0-6 Hyaline Cast, Urine Auto RFX 0 /LPF Normal 0-1 Basic Metabolic Profile 09/26/2020 Loc[facility] Glucose, Fasting 101 mg/dL High 70-100 Blood Urea Nitrogen 13 mg/dL Normal 7-18 Creatinine For GFR 0.72 mg/dL Normal 0.55-1.30 Glomerular Filtration Rate > 60.0 Normal >60 6 Sodium Level 140 mEq/L Normal 136-145 Potassium Serum 4.3 mEq/L Normal 3.5-5.1 Chloride Level 108 mEq/L High 98-107 Carbon Dioxide Level 23 mEq/L Normal 21-32 Anion Gap 9 mEq/L Normal 8-16 Calcium Level 9.0 mg/dL Normal 8.5-10.1 Laboratory test finding 09/26/2020 [facility] Partial Thromboplastin Time 23.5 seconds Low 24.2-38.5 Prothrombin Time/Inr 09/26/2020 [facility] Prothrombin Time 12.3 seconds Normal 12.5-14.3 Inr 0.90 Normal 7 CBC With Differential 09/26/2020 [facility] White Blood Count 6.6 10 Normal 4.0-10.0 Red Blood Count 4.32 10 Normal 4.00-5.40 Hemoglobin 13.1 g/dL Normal 12.0-15.5 Hematocrit 40.3 % Normal 36.0-47.0 Mean Corpuscular Volume 93.3 fl Normal 80.0-96.0 Mean Corpuscular Hemoglobin 30.3 pg Normal 27.0-33.0 Mean Corpuscular HGB Conc 32.5 g/dL Normal 32.0-36.5 Red Cell Distribution Width 15.8 % High 11.5-14.5 Platelet Count, Automated 284 10 Normal 150-450 Neutrophils % 59.7 % Normal 36.0-66.0 Lymph % 30.3 % Normal 24.0-44.0 [place] % 7.5 % Normal 2.0-8.0 Eos % 1.2 % Normal 0.0-3.0 Baso % 0.5 % Normal 0.0-1.0 Immature Granulocyte % 0.8 % Normal 0-3.0 Nucleated Red Blood Cell % 0.0 % Normal 0-0 Neutrophils # 4.0 10 Normal 1.5-8.5 Lymph # 2.0 10 Normal 1.5-5.0 [place] # 0.5 10 Normal 0.0-0.8 Eos # 0.1 10 Normal 0.0-0.5 Baso # 0.0 10 Normal 0.0-0.2 Liver Profile 09/26/2020 Loc[facility] Ast/Sgot 56 U/L High 7-37 Alt/SGPT 65 U/L Normal 12-78 Alkaline Phosphatase 110 U/L Normal 45-117 Bilirubin,Total 0.3 mg/dL Normal 0.2-1.0 Bilirubin,Direct < 0.1 mg/dL Normal 0.0-0.2 Total Protein 7.2 GM/DL Normal 6.4-8.2 Albumin 3.6 GM/DL Normal 3.2-5.2 Albumin/Globulin Ratio 1.0 Low 1.2-2.2 Laboratory test finding 09/05/2020 [facility] iSTAT B-hCG < 5.0 Normal 8 Istat Chem8+ Panel 09/05/2020 [facility] iSTAT HCT 39.0 % Normal 38.0-51.0 iSTAT Glucose 119 mg/dL High 70-105 iSTAT Sodium 139 mEq/L Normal 136-145 iSTAT Potassium 4.0 mEq/L Normal 3.5-5.1 iSTAT CA++ 5.0 mg/dL Normal 4.5-5.3 iSTAT Chloride 100 mEq/L Normal 98-109 iSTAT Co2 25.0 MM/L Normal 23.0-27.0 iSTAT BUN 13 mg/dL Normal 8-26 iSTAT Creatinine 0.6 mg/dL Normal 0.6-1.3 Laboratory test finding 09/05/2020 [facility] iSTAT B-hCG < 5.0 Normal 9 Istat Chem8+ Panel 09/05/2020 [facility] iSTAT HCT 36.0 % Low 38.0-51.0 iSTAT Glucose 88 mg/dL Normal 70-105 iSTAT Sodium 139 mEq/L Normal 136-145 iSTAT Potassium 4.0 mEq/L Normal 3.5-5.1 iSTAT CA++ 4.8 mg/dL Normal 4.5-5.3 iSTAT Chloride 103 mEq/L Normal 98-109 iSTAT Co2 26.0 MM/L Normal 23.0-27.0 iSTAT BUN 12 mg/dL Normal 8-26 iSTAT Creatinine 0.6 mg/dL Normal 0.6-1.3 MMR 07/31/2020 [facility] [phone] Rubella IgG Ab,S 1.49 index Immune >0.99 10 Rubeola IgG Ab,S 32.2 AU/mL Immune >16.4 11 Mumps IgG,S <9.0 AU/mL Abnormal Immune >10.9 12 Laboratory test finding 07/26/2020 [facility], Urine, Routine SEE NOTE 13 Enhanced PDF Report [id number] PDF IMAGE OFF Ua Routine 07/26/2020 Done in Doctor's Off ice Urine Specific [place] 1.030 Ua PH Test Strip 7.0 Ua Color wanda Ua Appearance cloudy Ua WBC + Ua Protein + Urine Glucose QL - Urine Ketones QL Test Strip + Urine Bilirubin TTL QL T-Strip - Urine Urobilinogen QN TS - Urine Nitrite QL TS - Ua Occult Blood +++ Xray 07/26/2020 [facility] [address] [place] [address] [phone] US Renal/Pelvic (Bladder) <pending> CBC W/Auto Diff 07/25/2020 [facility] [phone] White Blood Count 8.64 10^3/uL Normal 4.00-10.50 Red Blood Count 4.27 10^6/uL Normal 3.90-5.20 Hemoglobin 11.6 g/dL Normal 11.5-15.6 Hematocrit 36.6 % Normal 35.0-46.0 MCV 85.7 FL Normal 80.0-100.0 MCH 27.2 pg Normal 27.0-34.0 MCHC 31.7 g/dL Low 32-36 RDW 16.1 % High 11.5-14.5 Platelet Count 363 10^3/uL Normal 130-400 MPV 9.3 FL Normal 8.7-13.2 Gran % (Auto) 64.1 % Normal 42.0-75.0 Lymph % (Auto) 25.8 % Normal 20.0-51.0 [place] % (Auto) 7.8 % Normal 2.0-15.0 Eos % (Auto) 1.5 % Normal 0.0-11.0 Baso % (Auto) 0.2 % Normal 0.0-2.0 Ig % (Auto) 0.6 % 1.00-5.00 Ig # (Auto) 0.1 10^3/uL <0.5 Gran # (Auto) 5.54 10^3/uL Normal 1.50-6.50 Lymph # (Auto) 2.2 k/uL Normal 1.0-5.0 [place] # (Auto) 0.67 k/uL Normal 0.20-1.50 Eos # (Auto) 0.13 10^3/uL Normal 0.00-1.10 Baso # (Auto) 0.02 10^3/uL Normal 0.00-0.20 Comprehensive Metabolic Panel 07/25/2020 [facility] [phone] Sodium 138 mEq/L Normal 135-145 Potassium 4.4 mEq/L Normal 3.5-5.3 Chloride 104 mEq/L Normal 94-110 Carbon Dioxide 28 mEq/L Normal 22-33 Anion Gap 10 Normal 5-16 Blood Urea Nitro 14 mg/dL Normal 7-25 Creatinine 0.8 mg/dL Normal 0.6-1.4 GFR 81.2 mL/min 14 BUN/Creat Ratio 17 Normal 8-36 Glucose 92 mg/dL Normal 70-100 CA 9.1 mg/dL Normal 8.7-10.5 Bilirubin,Total 0.3 mg/dL Normal 0.1-1.3 Ast 57 U/L High 5-40 Alt 53 U/L High 5-48 Alkaline Phosphatase 117 U/L Normal 40-140 Total Protein 6.8 g/dL Normal 5.9-8.3 Albumin 4.6 g/dL Normal 3.0-5.1 Globulin 2.2 g/dL Normal 1.5-3.5 Alb/Glob Ratio 2.1 g/dL Normal 1.0-3.0 Laboratory test finding 07/25/2020 [facility] [phone] HCG Qualitative Specimen URINE HCG Qualitative,Urine <pending> *HCG Qualitative Urine NEGATIVE 15 HCG Result,U <pending> Urinalysis 07/25/2020 [facility] [phone] Color,Ur WANDA Abnormal Yellow Appearance,Ur CLOUDY Abnormal Clear PH,Ur 6.0 5.0-8.0 Specific [place],Ur 1.019 Normal 1.002-1.035 Protein,Ur 100 mg/dL Abnormal Negative Glucose, Ur NEGATIVE mg/dL Negative Ketones,Ur NEGATIVE mg/dL Negative Occult Blood,Ur LARGE Abnormal Negative Nitrate,Ur NEGATIVE Negative Leukocyte Esterase ,Ur TRACE Abnormal Negative Bilirubin,Ur NEGATIVE Negative Urobilinogen,Ur 0.2-1.0 EUMG/DL Neg-0-1.0 RBC,Ur >100 PERHPF Abnormal 0-2 Urine Epith MANY PER/LPF Few-Mod Mucus,Ur FEW PERHPF None Seen 1 QUANTITATIVE RESULT QUALITATIVE INTERPRETATION <5.0 IU/L NEGATIVE 5.0 - 25.0 IU/L INDETER MINATE >25.0 IU/L POSITIVE 2 Units are mL/min/1.73 m2 Chronic Kidney Disease Staging per NKF: Stage I & II GFR >=60 Normal to Mildly Decreased Stage III GFR 30-59 Moderately Decreased Stage IV GFR 15-29 Severely Decreased Stage V GFR <15 Very Little GFR Left ESRD GFR <15 on E LEARNING DESIGNER 3 Stage G2 - Mildly decreased kidney function The GFR is an estimate of the Glomerular Filtration Rate. It is an aid to assess a patient's renal function. It is not a conclusive diagnosis of kidney disease. GFR normal is >=90 The MDRD GFR calculation is considered valid between the ages of 18 and 75 years only. 4 NO URINE RECEIVED Patient informed to return with specimen. 5 FULL REPORT IN LAB NOTES (eC W and Medmariajose). SPECIMEN APPEARS CONTAMINATED 6 Units are mL/min/1.73 m2 Chronic Kidney Disease Staging per NKF: Stage I & II GFR >=60 Normal to Mildly Decreased Stage III GFR 30-59 Moderately Decreased Stage IV GFR 15-29 Severely Decreased Stage V GFR <15 Very Little GFR Left ESRD GFR <15 on E LEARNING DESIGNER 7 THERAPUTIC HUMAN INR VALUES INDICATIONS NORMAL RANGES PROPHYLAXIS/TREATMENT OF: VENOUS THROMBOSIS 2.0-3.0 PULMONARY EMBOLISM 2.0-3.0 PREVENTION OF SYSTEMIC EMBOLISM FROM: TISSUE HEART VALVES 2.0-3.0 ACUTE MYOCARDIAL INFARCTION 2.0-3.0 VALVULAR HEART DISEASE 2.0-3.0 ATRIAL FIBRILLATION 2.0-3.0 MECHANICAL VALVES(HIGH RISK) 2.5-3.5 RECURRENT MYOCARDIAL INFARCTION 2.5-3.5 8 QUANTITATIVE RESULT QUALITATIVE INTERPRETATION <5.0 IU/L NEGATIVE 5.0 - 25.0 IU/L INDETER MINATE >25.0 IU/L POSITIVE 9 QUANTITATIVE RESULT QUALITATIVE INTERPRETATION <5.0 IU/L NEGATIVE 5.0 - 25.0 IU/L INDETER MINATE >25.0 IU/L POSITIVE 10 Non-immune <0.90 Equivocal 0.90 - 0.99 Immune >0.99 11 Negative <13.5 Equivocal 13.5 - 16.4 Positive >16.4 Presence of antibodies to [place]ube[place] is presumptive evidence of immunity except when acute infection is suspected. 12 Negative <9.0 Equivocal 9.0 - 10.9 Positive >10.9 A positive result generally indicates past exposure to Mumps virus or previous vaccination. Performed at: RN - [facility] [address] [id number] Dryer Feeder: Jimena Jay MD, Phone: [phone] CULTURE, URINE, ROUTINE Micro Number: [id number] Test Status: Final Specimen Source: URINE Specimen Quality: Adequate Result: Growth of mixed elizabeth was isolated, suggesting probable contamination. No further testing will be performed. If clinically indicated, recollection using a method to minimize contamination, with prompt transfer to Urine Culture Transport Tube, is recommended. 14 Stage G2 - Mildly decreased kidney function The GFR is an estimate of the Glomerular Filtration Rate. It is an aid to assess a patient's renal function. It is not a conclusive diagnosis of kidney disease. GFR normal is >=90 The MDRD GFR calculation is considered valid between the ages of 18 and 75 years only. 15 Reference range is Negative To ensure best sensitivity, first morning void is recommended. Dilute, low specific gravity urine may give a falsely negative result. If is suspected, repeat testing with a new specimen 48-72 hours later. Procedures Date Code Description Status 12/18/2020 73600 Office/Outpatient Established Lo w MDM 20-29 Min Completed 12/18/2020 53836 Brief Emotional/Beha v Assessment W/ Scoring Doc Per Standard Inst Completed 12/10/2020 12886 Office/Outpatient Established Lo w MDM 20-29 Min Completed 11/01/2020 57825 Office/Outpatient Established Mo d MDM 30-39 Min Completed 10/18/2020 46279 Office/Outpatient Established Lo w MDM 20-29 Min Completed 09/13/2020 98324 Preventive Visit Est 18-39 Yrs C ompleted 09/13/2020 16486 Office/Outpatient Established Mo d MDM 30-39 Min Completed 09/13/2020 90056 Visual Screening Test Completed 09/13/2020 68319 Electrocardiogram Complete Compl eted 09/13/2020 50989 Screening Hearing Test Completed 08/10/2020 30114 Office/Outpatient Established Lo w MDM 20-29 Min Completed 07/26/2020 98470 Office/Outpatient Established Mo d MDM 30-39 Min Completed 07/26/2020 74007 Office/Outpatient Established Mo d MDM 30-39 Min Completed 06/26/2020 30834 Office/Outpatient Established Lo w MDM 20-29 Min Completed Medical Devices Description No Information Available Encounters Type Date Location Provider Dx Diagnosis Office Visit 12/18/2020 1:00p [facility] Lawanda Martinez PA-C M54.50 Low back pain, unspecified Z13.31 Encounter for screening for depression Z23 Encounter for immunization Office Visit 12/10/2020 7:30p [facility]- Delilah Adams D.O. M54.5 Low back pain R31.29 Other microscopic hematuria Z91.19 Patient's noncompliance w ot h medical treatment and regimen Office Visit 11/01/2020 11:50a [facility]- Lawanda Villarreal D.O. E16.2 Hypoglycemia, unspecified M54.5 Low back pain E66.01 Morbid (severe) obesity due to excess calories Z68.43 Body mass index [BMI] 50.0-5 9.9, adult Office Visit 10/18/2020 7:00p [facility] Lawanda Villarreal D.O. M54.5 Low back pain R53.83 Other fatigue Office Visit 09/13/2020 9:00a [facility] Isaac Swanson.OMark Z00.00 Encntr for general adult med ical exam w/o abnormal findings E66.01 Morbid (severe) obesity due to excess calories Z23 Encounter for immunization Z68.43 Body mass index [BMI] 50.0-5 9.9, adult R53.83 Other fatigue Office Visit 08/10/2020 6:30p [facility]- Lawanda Villarreal D.O. D50.9 Iron deficiency anemia, unsp ecified M54.5 Low back pain Office Visit 07/26/2020 2:30p [facility] Lawanda Martinez PA-C N39.0 Urinary tract infection, sit e not specified R31.0 Gross hematuria M54.5 Low back pain J31.0 Chronic rhinitis Office Visit 06/26/2020 11:00a [facility] Reese Adams D.O. K12.2 Cellulitis and abscess of mo [facility] M54.17 Radiculopathy, lumbosacral r egion Assessments Date Code Description Provider 12/18/2020 M54.50 Low back pain, unspecified Heather Martinez PA-C 12/18/2020 Z13.31 Encounter for screening for depr ession Heather Martinez PA-C 12/18/2020 Z23 Encounter for immunization Heather Martinez PA-C 12/10/2020 M54.5 Low back pain Isaac Verduzco. O. 12/10/2020 R31.29 Other microscopic hematuria Isaac Verduzco.OMark 12/10/2020 Z91.19 Patient's noncomplia nce with other medical treatment and regimen Michelle VerduzcoOMark 11/01/2020 E16.2 Hypoglycemia, unspecified Isaac Verduzco.OMark 11/01/2020 M54.5 Low back pain Isaac Verduzco. OMark 11/01/2020 E66.01 Morbid (severe) obesity due to e xcess calories Isaac Verduzco.O. 11/01/2020 Z68.43 Body mass index [BMI] 50.0-59.9, adult Michelle VerduzcoOMark 10/18/2020 M54.5 Low back pain Isaac Verduzco. O. 10/18/2020 R53.83 Other fatigue Isaac Verduzco. OMark 09/13/2020 Z00.00 Encounter for genera l adult medical examination without abnormal findings Michelle VerduzcoOMark 09/13/2020 E66.01 Morbid (severe) obesity due to e xcess calories Isaac Verduzco.O. 09/13/2020 Z23 Encounter for immunization Michelle VerduzcoOMark 09/13/2020 Z68.43 Body mass index [BMI] 50.0-59.9, adult Isaac Verduzco.O. 09/13/2020 R53.83 Other fatigue Isaac Verduzco. OMark 08/10/2020 D50.9 Iron deficiency anemia, unspecif ied Isaac Verduzco.OMark 08/10/2020 M54.5 Low back pain Isaac Verduzco. OMark 08/07/2020 Z23 Encounter for immunization Michelle VerduzcoOMark 08/07/2020 Z23 Encounter for immunization Nurse Loc X1 07/26/2020 N39.0 Urinary tract infection, site no t specified Kemal Villarreal D.O. 07/26/2020 N39.0 Urinary tract infection, site no t specified Heather Martinez PA-C 07/26/2020 R31.0 Gross hematuria Michelle Verduzco 07/26/2020 R31.0 Gross hematuria Heather Martinez PA-C 07/26/2020 M54.5 Low back pain Michelle Verduzco 07/26/2020 M54.5 Low back pain Heather Martinez PA-C 07/26/2020 J31.0 Chronic rhinitis Isaac Verduzco 07/26/2020 J31.0 Chronic rhinitis Heather Martinez PA-C 06/26/2020 K12.2 Cellulitis and abscess of mouth Kemal Villarreal D.O. 06/26/2020 M54.17 Radiculopathy, lumbosacral regio n Kemal Villarreal D.O. Plan of Treatment Future Appointment(s):* 02/01/2021 9:20 am - Heather Martinez PA-C at [facility] * 01/17/2021 8:00 am - Kemal Villarreal D.O. at [facility] Functional Status Description No Information Available Mental Status Description No Information Available Referrals Refer to Reason for Referral Status Appt Date [facility] Dear Doctor: To whom this m ay concern: I am referring this patient due to low back pain. With this referral you will also recieve the followin. Problem List; 2. Medication List; 3. Allergy List; 4. Last labs; 5. Last Progress Note. If you do not recieve the above, please contact our [employer]. As always, we thank you for the great service you provide to our patients. Sincerely, Kemal Villarreal DO [address] [address] [phone] [place] Dear Doctor, This patient i s being referred to you due to ANNIA which requires iron infusion. With this request you will receive the followin. The last visit note 2. Past Medical History 3. Medication List 4. Allergy List 5. Last lab results 6. If indicated and available, radiological tests and EKG. If there is any other information that you need, please let our office know. Thank you for assisting in the care of this patient. Kemal Villarreal D.O. [facility] [place] [facility] [address] [place] [address] [phone]
--- OUTSIDE RECORDS SUMMARY | 2021-01-11 19:43 | CCD | Continuity of Care Document ---
Author Author Isidro VILLARREAL D.O. Organization Unknown Address [address] [place] [id number] Phone [phone] Care Team Providers Care Fence Rider Name Role Phone Kmeal Villarreal DO AUTM [phone] Jay Bush AUTM [phone] [facility] AUTM [phone] Problems Active Problems Provider Date Drug seeking [...] Patient has never smoked Smoking Status Reviewed: 11/01/20 Patient has never smoked Allergies and adverse reactions Active Allergies Criticality Reaction | Severity Comments Date Cyclobenzaprine Unable to assess criticality rash 02/25/2013 Penicillin Unable to assess criticality rash rash 08/27/2012 NSAIDS Unable to assess criticality Taking Loven ox 06/04/2020 Medications Active Medications SIG Qnty Indications Ordering Provide r Date Topiramate 50mg Tablets 1 by mouth twice a day 60tabs M54.5 Michelle VerduzcoO. 12/10/2020 Lyrica 75mg Capsules 1 by mouth twice a day as needed 30caps M54.17 Michelle VerduzcoO. 12/10/2020 M54.5 Cetirizine HCL 10mg Tablets 1 by mouth every day 30tabs J31.0 Kemal Villarreal D.O. 07/26/2020 Lovenox 120mg/0.8ML Solution inject 0.8 milliliters sc twice a day 48ml Z79.01 Michelle VerduzcoOMark History Medications Topiramate 25mg Tablets 1 by mouth twice a day 60tabs M54.5 Michelle VerduzcoO. 11/01/2020 - 12/10/2020 Tizanidine HCL 4mg Capsules one by mouth every night prn 10caps M54.5 Kemal Villarreal D.O. 10/18/2020 - 11/01/2020 Sulfamethoxazole/Trimethoprim DS 800-160mg Tablets 1 by mouth twice a day N39.0 Michelle VerduzcoO. 09/13/2020 - 09/13/2020 Sulfamethoxazole/Trimethoprim DS 800-160mg Tablets 1 by mouth twice a day 6tabs N39.0 Michelle VerduzcoO. 07/26/2020 - 09/13/2020 Hydrocodone-Acetaminophen 5-325mg Tablets one tablet every 24 hours as needed for pain This will not continue 10tabs Michelle VerduzcoO. 07/26/2020 - 10/04/2020 Clindamycin HCL 300mg Capsules take 1 tab by mouth twice a day for 10 days 28caps K12.2 Isaac VerduzcoO. 06/26/2020 - 07/26/2020 Methocarbamol 500mg Tablets take 1 tablet by mouth nightly as needed 30tabs M54.17 Michelle VerduzcoO. - 11/01/2020 Medications Administered in Office Medication SIG Qnty Indications Ordering Provider Date Rocephin (Ceftriaxone) 1 Gram Inj ection Heather Martinez PA-C 06/04/2020 Immunizations CPT Code Status Date Vaccine Reaction Lot # [id number] Given 09/13/2020 MMR Virus Immunization No Reaction S [id number] Given 08/07/2020 MMR Virus Immunization No Reaction s [id number] Q2038 Given 06/03/2013 Fluzone Trivalent Immunization 52567 Given 03/16/2007 Tetanus Toxoid Vital Signs Date Vital Result Comment 11/01/2020 11:55am Body Temperature 97.3 F Weight 275.00 lb Heart Rate 86 /min BP Systolic 126 mmHg L Arm, Lrg cuff BP Diastolic 84 mmHg L Arm, Lrg cuff Respiratory Rate 16 /min Height 60 inches 5'0" BMI (Body Mass Index) 53.7 kg/m2 [place] Body Weight 100 lb O2 % BldC Oximetry 99 % Room Air Height in cm's 152.4 cm 09/13/2020 10:22am Body Temperature 98.2 F Weight 271.00 lb Heart Rate 91 /min BP Systolic 120 mmHg BP Diastolic 86 mmHg Respiratory Rate 22 /min Height 60 inches 5'0" BMI (Body Mass Index) 52.9 kg/m2 [place] Body Weight 100 lb O2 % BldC Oximetry 96 % Room Air Right Visual Acuity Distance 20/15 10:28 Am Left Visual Acuity Distance 20/15 Height in cm's 152.4 cm Results Test Acquired Date Facility Test Result H/L Range Note Urinalysis 12/03/2020 [facility] [phone] Color,Ur RED Abnormal Yellow Appearance,Ur CLOUDY Abnormal Clear PH,Ur 6.0 5.0-8.0 Specific [place],Ur 1.014 Normal 1.002-1.035 Protein,Ur 100 mg/dL Abnormal [...] 11/01/2020 [facility] [address] [place], [place] [id number] [phone] CR Spine Lumbosac Complete W/Bend <pending> Laboratory test finding 10/30/2020 [facility] iSTAT B-hCG < 5.0 Normal 1 CBC With Differential 10/30/2020 [facility] White Blood Count 10.1 10 High 4.0-10.0 [...] 36.0-66.0 Lymph % 23.8 % Low 24.0-44.0 [place] % 5.9 % Normal 2.0-8.0 Eos % 0.8 % Normal 0.0-3.0 Baso % 0.4 % Normal 0.0-1.0 Immature Granulocyte % 0.8 % Normal 0-3.0 Nucleated Red Blood Cell % 0.0 % Normal 0-0 Neutrophils # 6.9 10 Normal 1.5-8.5 Lymph # 2.4 10 Normal 1.5-5.0 [place] # 0.6 10 Normal 0.0-0.8 Eos # 0.1 10 Normal 0.0-0.5 Baso # 0.0 10 Normal 0.0-0.2 Liver Profile 10/30/2020 [facility] Ast/Sgot 40 U/L High 7-37 Alt/SGPT 58 U/L Normal 12-78 Alkaline Phosphatase 112 U/L Normal 45-117 Bilirubin,Total 0.3 mg/dL Normal 0.2-1.0 Bilirubin,Direct 0.1 mg/dL Normal 0.0-0.2 Total Protein 7.4 GM/DL Normal 6.4-8.2 Albumin 3.6 GM/DL Normal 3.2-5.2 Albumin/Globulin Ratio 0.9 Low 1.2-2.2 Basic Metabolic Profile 10/30/2020 [facility] Glucose, Fasting 91 mg/dL Normal 70-100 Blood [...] mg/dL Normal 8.5-10.1 Laboratory test finding 10/30/2020 [facility] Lipase 105 U/L Normal 73-393 Basic Metabolic Panel 10/06/2020 [facility] [phone] Sodium 139 mEq/L Normal 135-145 Potassium 3.8 mEq/L Normal 3.5-5.3 Chloride 108 mEq/L Normal 94-110 Carbon Dioxide 24 mEq/L Normal 22-33 Anion Gap 11 Normal 5-16 Blood Urea Nitro 14 mg/dL Normal 7-25 Creatinine 0.8 mg/dL Normal 0.6-1.4 GFR 81.2 mL/min 3 BUN/Creat Ratio 17 Normal 8-36 Glucose 82 mg/dL Normal 70-100 CA 9.6 mg/dL Normal 8.7-10.5 Laboratory test finding 10/06/2020 [facility] [phone] Glycosylated Hgba1c 4.9 % Normal 4.1-6.5 Laboratory test finding 10/06/2020 [facility] [phone] No Urine Received From Patient NO URINE RECEIVE <SEE N OTE> 4 Ua W/ Reflex To Culture 09/26/2020 [facility] Appearance, Urine RFX CLOUDY High Clear Color, Urine RFX YELLOW Normal Yellow PH,Urine RFX 6.0 units Normal 5.0-9.0 Specific [place] Ur Auto RFX 1.021 Normal 1.002-1.035 Protein, [...] Urine Auto RFX 0 /LPF Normal 0-1 Reflex Urine Culture 09/26/2020 [facility] Reflex Urine Culture FULL REPORT IN L <SEE NOTE> Normal 5 Laboratory test finding 09/26/2020 [facility] Lipase 100 U/L Normal 73-393 HCG Serum Qualitative NEGATIVE Normal Negative Basic Metabolic Profile 09/26/2020 [facility] Glucose, Fasting 101 mg/dL High 70-100 Blood [...] mg/dL Normal 8.5-10.1 Laboratory test finding 09/26/2020 [facility] Partial Thromboplastin Time 23.5 seconds Low 24.2-38.5 Prothrombin Time/Inr 09/26/2020 [facility] Prothrombin Time 12.3 seconds Normal 12.5-14.3 Inr 0.90 Normal 7 CBC With Differential 09/26/2020 [facility] White Blood Count 6.6 10 Normal 4.0-10.0 [...] 36.0-66.0 Lymph % 30.3 % Normal 24.0-44.0 [place] % 7.5 % Normal 2.0-8.0 Eos % 1.2 % Normal 0.0-3.0 Baso % 0.5 % Normal 0.0-1.0 Immature Granulocyte % 0.8 % Normal 0-3.0 Nucleated Red Blood Cell % 0.0 % Normal 0-0 Neutrophils # 4.0 10 Normal 1.5-8.5 Lymph # 2.0 10 Normal 1.5-5.0 [place] # 0.5 10 Normal 0.0-0.8 Eos # 0.1 10 Normal 0.0-0.5 Baso # 0.0 10 Normal 0.0-0.2 Liver Profile 09/26/2020 [facility] Ast/Sgot 56 U/L High 7-37 Alt/SGPT 65 U/L Normal 12-78 Alkaline Phosphatase 110 U/L Normal 45-117 Bilirubin,Total 0.3 mg/dL Normal 0.2-1.0 Bilirubin,Direct < 0.1 mg/dL Normal 0.0-0.2 Total Protein 7.2 GM/DL Normal 6.4-8.2 Albumin 3.6 GM/DL Normal 3.2-5.2 Albumin/Globulin Ratio 1.0 Low 1.2-2.2 Laboratory test finding 09/05/2020 [facility] iSTAT B-hCG < 5.0 Normal 8 Istat Chem8+ Panel 09/05/2020 [facility] iSTAT HCT 39.0 % Normal 38.0-51.0 iSTAT Glucose 119 mg/dL High 70-105 iSTAT Sodium 139 mEq/L Normal 136-145 iSTAT Potassium 4.0 mEq/L Normal 3.5-5.1 iSTAT CA++ 5.0 mg/dL Normal 4.5-5.3 iSTAT Chloride 100 mEq/L Normal 98-109 iSTAT Co2 25.0 MM/L Normal 23.0-27.0 iSTAT BUN 13 mg/dL Normal 8-26 iSTAT Creatinine 0.6 mg/dL Normal 0.6-1.3 Laboratory test finding 09/05/2020 [facility] iSTAT B-hCG < 5.0 Normal 9 Istat Chem8+ Panel 09/05/2020 [facility] iSTAT HCT 36.0 % Low 38.0-51.0 iSTAT Glucose 88 mg/dL Normal 70-105 iSTAT Sodium 139 mEq/L Normal 136-145 iSTAT Potassium 4.0 mEq/L Normal 3.5-5.1 iSTAT CA++ 4.8 mg/dL Normal 4.5-5.3 iSTAT Chloride 103 mEq/L Normal 98-109 iSTAT Co2 26.0 MM/L Normal 23.0-27.0 iSTAT BUN 12 mg/dL Normal 8-26 iSTAT Creatinine 0.6 mg/dL Normal 0.6-1.3 MMR 07/31/2020 [facility] [phone] Rubella IgG Ab,S 1.49 index Immune >0.99 10 Rubeola IgG Ab,S 32.2 AU/mL Immune >16.4 11 Mumps IgG,S <9.0 AU/mL Abnormal Immune >10.9 12 Laboratory test finding 07/26/2020 [facility] Culture, Urine, Routine SEE NOTE 13 Enhanced PDF Report [id number] PDF IMAGE OFF Ua Routine 07/26/2020 Done in Doctor's Off ice Urine Specific [place] 1.030 Ua PH Test Strip 7.0 Ua Color wanda Ua Appearance cloudy Ua WBC + Ua Protein + Urine Glucose QL - Urine Ketones QL Test Strip + Urine Bilirubin TTL QL T-Strip - Urine Urobilinogen QN TS - Urine Nitrite QL TS - Ua Occult Blood +++ Xray 07/26/2020 [facility] [address] [place] [address] [phone] US Renal/Pelvic (Bladder) <pending> CBC W/Auto Diff 07/25/2020 [facility] [phone] White Blood Count 8.64 10^3/uL Normal 4.00-10.50 [...] Lymph % (Auto) 25.8 % Normal 20.0-51.0 [place] % (Auto) 7.8 % Normal 2.0-15.0 Eos % (Auto) 1.5 % Normal 0.0-11.0 Baso % (Auto) 0.2 % Normal 0.0-2.0 Ig % (Auto) 0.6 % 1.00-5.00 Ig # (Auto) 0.1 10^3/uL <0.5 Gran # (Auto) 5.54 10^3/uL Normal 1.50-6.50 Lymph # (Auto) 2.2 k/uL Normal 1.0-5.0 [place] # (Auto) 0.67 k/uL Normal 0.20-1.50 Eos # (Auto) 0.13 10^3/uL Normal 0.00-1.10 Baso # (Auto) 0.02 10^3/uL Normal 0.00-0.20 Comprehensive Metabolic Panel 07/25/2020 [facility] [phone] Sodium 138 mEq/L Normal 135-145 Potassium 4.4 [...] g/dL Normal 1.0-3.0 Laboratory test finding 07/25/2020 [facility] [phone] HCG Qualitative Specimen URINE HCG Qualitative,Urine <pending> *HCG Qualitative Urine NEGATIVE 15 HCG Result,U <pending> Urinalysis 07/25/2020 [facility] [phone] Color,Ur WANDA Abnormal Yellow Appearance,Ur CLOUDY Abnormal Clear PH,Ur 6.0 5.0-8.0 Specific [place],Ur 1.019 Normal 1.002-1.035 Protein,Ur 100 mg/dL Abnormal [...] Little GFR Left ESRD GFR <15 on EDUCATIONAL TECHNICIAN 3 Stage G2 - Mildly decreased kidney [...] specimen. 5 FULL REPORT IN LAB NOTES (Alicia W and Edgar). SPECIMEN APPEARS CONTAMINATED 6 Units are mL/min/1.73 m2 Chronic Kidney Disease Staging per NKF: Stage I & II GFR >=60 Normal to Mildly Decreased Stage III GFR 30-59 Moderately Decreased Stage IV GFR 15-29 Severely Decreased Stage V GFR <15 Very Little GFR Left ESRD GFR <15 on EDUCATIONAL TECHNICIAN 7 THERAPUTIC HUMAN INR VALUES INDICATIONS NORMAL [...] Mumps virus or previous vaccination. Performed at: [address] [id number] Horticulture/Floriculture Teacher: Jimena Jay MD, Phone: [phone] CULTURE, URINE, ROUTINE Micro Number: [id number] Test Status: Final Specimen Source: URINE Specimen [...] hours later. Procedures Date Code Description Status 12/10/2020 38872 Office/Outpatient Established Lo w MDM 20-29 Min Completed 11/01/2020 82010 Office/Outpatient Established Mo d MDM 30-39 Min Completed 10/18/2020 06510 Office/Outpatient Established Lo w MDM 20-29 Min Completed 09/13/2020 77082 Preventive Visit Est 18-39 Yrs C ompleted 09/13/2020 57047 Office/Outpatient Established Mo d MDM 30-39 Min Completed 09/13/2020 56513 Visual Screening Test Completed 09/13/2020 03973 Electrocardiogram Complete Compl eted 09/13/2020 18438 Screening Hearing Test Completed 08/10/2020 34823 Office/Outpatient Established Lo w MDM 20-29 Min Completed 07/26/2020 75860 Office/Outpatient Established Mo d MDM 30-39 Min Completed 07/26/2020 70363 Office/Outpatient Established Mo d MDM 30-39 Min Completed 06/26/2020 90471 Office/Outpatient Established Lo w MDM 20-29 Min Completed 06/11/2020 18711 Office/Outpatient Established Mo d MDM 30-39 Min Completed Medical Devices Description No Information Available Encounters Type Date Location Provider Dx Diagnosis Office Visit 12/10/2020 7:30p [facility]- Delilah Adams D.O. M54.5 Low back pain R31.29 Other microscopic hematuria Z91.19 Patient's noncompliance w ot h medical treatment and regimen Office Visit 11/01/2020 11:50a [facility]- Lawanda Villarreal D.O. E16.2 Hypoglycemia, unspecified M54.5 Low back pain E66.01 Morbid (severe) obesity due to excess calories Z68.43 Body mass index [BMI] 50.0-5 9.9, adult Office Visit 10/18[facility] 7[facility]p [facility] M54.5 Low back pain R53.83 Other fatigue Office Visit 09/13/2020 9:00a [facility] Lawanda Villarreal D.O. Z00.00 Encntr for general adult med ical exam w/o abnormal findings E66.01 Morbid (severe) obesity due to excess calories Z23 Encounter for immunization Z68.43 Body mass index [BMI] 50.0-5 9.9, adult R53.83 Other fatigue Office Visit 08/10/2020 6:30p [facility] Lawanda Villarreal D.O. D50.9 Iron deficiency anemia, unsp ecified M54.5 Low back pain Office Visit 07/26[facility]2020 2[facility] N39.0 Urinary tract infection, sit e not specified R31.0 Gross hematuria M54.5 Low back pain J31.0 Chronic rhinitis Office [facility] K12.2 Cellulitis and abscess of mo [facility] M54.17 Radiculopathy, lumbosacral r egion Office Visit 06/11/2020 11:30a [facility] Kemal Villarreal D.O. M54.17 Radiculopathy, lumbosacral r egion E66.01 Morbid (severe) obesity due to excess calories K04.7 Periapical abscess without s inus Z68.43 Body mass index [BMI] 50.0-5 9.9, adult Assessments Date Code Description Provider 12/10/2020 M54.5 Low back pain Michelle Verduzco 12/10/2020 R31.29 Other microscopic hematuria Kemal Villarreal D.O. 12/10/2020 Z91.19 Patient's noncomplia nce with other medical treatment and regimen Michelle VerduzcoO. 11/01/2020 E16.2 Hypoglycemia, unspecified Michelle VerduzcoO. 11/01/2020 M54.5 Low back pain Michelle Verduzco O. 11/01/2020 E66.01 Morbid (severe) obesity due to e xcess calories Isaac Verduzco.O. 11/01/2020 Z68.43 Body mass index [BMI] 50.0-59.9, adult Michelle VerduzcoO. 10/18/2020 M54.5 Low back pain Michelle Verduzco O. 10/18/2020 R53.83 Other fatigue Michelle Verduzco OMark 09/13/2020 Z00.00 Encounter for genera l adult medical examination without abnormal findings Mihcelle VerduzcoO. 09/13/2020 E66.01 Morbid (severe) obesity due to e xcess calories Michelle VerduzcoOMark 09/13/2020 Z23 Encounter for immunization Michelle VerduzcoO. 09/13/2020 Z68.43 Body mass index [BMI] 50.0-59.9, adult Isaac Verduzco.O. 09/13/2020 R53.83 Other fatigue Isaac Verduzco. O. 08/10/2020 D50.9 Iron deficiency anemia, unspecif ied Michelle VerduzcoO. 08/10/2020 M54.5 Low back pain Michelle Verduzco OMark 08/07/2020 Z23 Encounter for immunization Kemal Villarreal D.O. 08/07/2020 Z23 Encounter for immunization Nurse Loc X1 07/26/2020 N39.0 Urinary tract infection, site no t specified Michelle VerduzcoOMark 07/26/2020 N39.0 Urinary tract infection, site no t specified Heather Martinez PA-C 07/26/2020 R31.0 Gross hematuria Michelle Verduzco O. 07/26/2020 R31.0 Gross hematuria Heather Martinez PA-C 07/26/2020 M54.5 Low back pain Michelle Verduzco OMark 07/26/2020 M54.5 Low back pain Heather Martinez PA-C 07/26/2020 J31.0 Chronic rhinitis Isaac Verduzco 07/26/2020 J31.0 Chronic rhinitis Heather Martinez PA-C 06/26/2020 K12.2 Cellulitis and abscess of mouth Kemal Villarreal D.O. 06/26/2020 M54.17 Radiculopathy, lumbosacral regio n Kemal Villarreal D.O. 06/11/2020 M54.17 Radiculopathy, lumbosacral regio n Michelle VerduzcoO. 06/11/2020 E66.01 Morbid (severe) obesity due to e xcess calories Kemal Villarreal D.O. 06/11/2020 K04.7 Periapical abscess without sinus Kemal Villarreal D.O. 06/11/2020 Z68.43 Body mass index [BMI] 50.0-59.9, adult Kemal Villarreal D.O. Plan of Treatment Future Appointment(s):* 02/01/2021 9:20 am - Heather Martinez PA-C at [facility] * 01/17/2021 8:00 am - Kemal Villarreal D.O. at [facility] 12/10/2020 - Kemal Villarreal D.O.* M54.5 Low back pain* New Medication:* Topiramate 50 mg - 1 by mouth twice a day * Lyrica 75 mg - 1 by mouth twice a day as needed * Follow up:* Encouraged to keep the scheduled appointment. * R31.29 Other microscopic hematuria * Z91.19 Patient's noncompliance with other medical treatment and regimen Goals 12/10/2020 - Kemal Villarreal D.O.* M54.5 Low back pain* Discussed the new medication dose. * R31.29 Other microscopic hematuria* She has not complied with the pelvic/ renal sonogram ordered 3 months ago. Once again, I reminded her of the importance of doing this test. She states that she will get these done now. * Z91.19 Patient's noncompliance with other medical treatment and regimen* Discussed with the patient the importance of being compliant with the medications and the recommendations made by our medical staff. The patient expressed an understanding and promises to improve being compliant. Functional Status Description No Information Available Mental Status Description No Information Available Referrals Refer to Reason for Referral Status Appt Date [facility] Dear Doctor: To whom this m ay concern: I am referring this patient due to low back pain. With this referral you will also recieve the followin. Problem List; 2. Medication List; 3. Allergy List; 4. Last labs; 5. Last Progress Note. If you do not recieve the above, please contact our Cut And Cover Line Worker. As always, we thank you for the great service you provide to our patients. Sincerely, Kemal Villarreal DO Closed [address] [address] [phone] Jay Bush Dear Doctor, This patient i [...] patient. Kemal Villarreal D.O. [facility] [place] [facility] [place] [address] [phone]
--- OUTSIDE RECORDS SUMMARY | 2021-01-11 19:43 | CCD | Continuity of Care Document ---
Author Author Isidro VILLARREAL D.O. Organization Unknown Address [address] [place] [id number] Phone [phone] Care Team Providers Care Spinning Lathe Operator Automatic Name Role Phone Kemal Villarreal DO AUTM [phone] Jay Bush AUTM [phone] [facility] Orthopedic AUTM [phone] Problems Active Problems Provider Date Drug seeking [...] Qnty Indications Ordering Provide r Date Topiramate 25mg Tablets 1 by mouth twice a day 60tabs M54.5 Kemal Villarreal D.O. 11/01/2020 Cetirizine HCL 10mg Tablets 1 by mouth every day 30tabs J31.0 Kemal Villarreal D.O. 07/26/2020 Lovenox 120mg/0.8ML Solution inject 0.8 milliliters sc twice a day 48ml Z79.01 Kemal Villarreal D.O. History Medications Tizanidine HCL 4mg Capsules one by mouth every night prn 10caps M54.5 Kemal Villarreal D.O. 10/18/2020 - 11/01/2020 Sulfamethoxazole/Trimethoprim DS 800-160mg Tablets 1 by mouth twice a day N39.0 Kemal Villarreal D.O. 09/13/2020 - 09/13/2020 Sulfamethoxazole/Trimethoprim DS 800-160mg Tablets 1 by mouth twice a day 6tabs N39.0 Kemal Villarreal D.O. 07/26/2020 - 09/13/2020 Hydrocodone-Acetaminophen 5-325mg Tablets one tablet every 24 hours as needed for pain This will not continue 10tabs Kemal Villarreal D.O. 07/26/2020 - 10/04/2020 Clindamycin HCL 300mg Capsules take 1 tab by mouth twice a day for 10 days 28caps K12.2 Isaac VerduzcoO. 06/26/2020 - 07/26/2020 Methocarbamol 500mg Tablets take 1 tablet by mouth nightly as needed 30tabs M54.17 Kemal Villarreal D.O. - 11/01/2020 Medications Administered in Office Medication SIG Qnty Indications Ordering Provider Date Rocephin (Ceftriaxone) 1 Gram Inj ection Heather Martinez PA-C 06/04/2020 Immunizations CPT Code Status Date Vaccine Reaction Lot # [id number] Given 09/13/2020 MMR Virus Immunization No Reaction S [id number] Given 08/07/2020 MMR Virus Immunization No Reaction s [id number] [id number] Given 06/03/2013 Fluzone Trivalent Immunization 74030 Given 03/16/2007 Tetanus Toxoid Vital Signs Date Vital Result Comment 11/01/2020 11:55am Body Temperature 97.3 F Weight 275.00 lb Heart Rate 86 /min BP Systolic 126 mmHg L Arm, Lrg cuff BP Diastolic 84 mmHg L Arm, Lrg cuff Respiratory Rate 16 /min Height 60 inches 5'0" BMI (Body Mass Index) 53.7 kg/m2 [place] Body Weight 100 lb O2 % BldC Oximetry 99 % Room Air Height in cm's 152.4 cm 09/13/2020 10:22am Body Temperature 98.2 F Weight 271.00 lb Heart Rate 91 /min BP Systolic 120 mmHg BP Diastolic 86 mmHg Respiratory Rate 22 /min Height 60 inches 5'0" BMI (Body Mass Index) 52.9 kg/m2 [place] Body Weight 100 lb O2 % BldC Oximetry 96 % Room Air Right Visual Acuity Distance 20/15 10:28 Am Left Visual Acuity Distance 20/15 Height in cm's 152.4 cm Results Test Acquired Date Facility Test Result H/L Range Note Urinalysis 12/03/2020 [facility] [phone] Color,Ur RED Abnormal Yellow Appearance,Ur CLOUDY Abnormal Clear PH,Ur 6.0 5.0-8.0 Specific [place],Ur 1.014 Normal 1.002-1.035 Protein,Ur 100 mg/dL Abnormal [...] 11/01/2020 [facility] [address] [place], [place] [id number] [phone] CR Spine Lumbosac Complete W/Bend <pending> Laboratory test finding 10/30/2020 [facility] iSTAT B-hCG < 5.0 Normal 1 CBC With Differential 10/30/2020 [facility] White Blood Count 10.1 10 High [...] 36.0-66.0 Lymph % 23.8 % Low 24.0-44.0 [place] % 5.9 % Normal 2.0-8.0 Eos % 0.8 % Normal 0.0-3.0 Baso % 0.4 % Normal 0.0-1.0 Immature Granulocyte % 0.8 % Normal 0-3.0 Nucleated Red Blood Cell % 0.0 % Normal 0-0 Neutrophils # 6.9 10 Normal 1.5-8.5 Lymph # 2.4 10 Normal 1.5-5.0 [place] # 0.6 10 Normal 0.0-0.8 Eos # 0.1 10 Normal 0.0-0.5 Baso # 0.0 10 Normal 0.0-0.2 Liver Profile 10/30/2020 [facility] Ast/Sgot 40 U/L High 7-37 Alt/SGPT 58 U/L Normal 12-78 Alkaline Phosphatase 112 U/L Normal 45-117 Bilirubin,Total 0.3 mg/dL Normal 0.2-1.0 Bilirubin,Direct 0.1 mg/dL Normal 0.0-0.2 Total Protein 7.4 GM/DL Normal 6.4-8.2 Albumin 3.6 GM/DL Normal 3.2-5.2 Albumin/Globulin Ratio 0.9 Low 1.2-2.2 Basic Metabolic Profile 10/30/2020 [facility] Glucose, Fasting 91 mg/dL Normal 70-100 [...] mg/dL Normal 8.5-10.1 Laboratory test finding 10/30/2020 [facility] Lipase 105 U/L Normal 73-393 Basic Metabolic Panel 10/06/2020 [facility] [place] [phone] Sodium 139 mEq/L Normal 135-145 Potassium 3.8 mEq/L Normal 3.5-5.3 Chloride 108 mEq/L Normal 94-110 Carbon Dioxide 24 mEq/L Normal 22-33 Anion Gap 11 Normal 5-16 Blood Urea Nitro 14 mg/dL Normal 7-25 Creatinine 0.8 mg/dL Normal 0.6-1.4 GFR 81.2 mL/min 3 BUN/Creat Ratio 17 Normal 8-36 Glucose 82 mg/dL Normal 70-100 CA 9.6 mg/dL Normal 8.7-10.5 Laboratory test finding 10/06/2020 [facility] [phone] Glycosylated Hgba1c 4.9 % Normal 4.1-6.5 Laboratory test finding 10/06/2020 [facility] [phone] No Urine Received From Patient NO URINE RECEIVE <SEE N OTE> 4 Ua W/ Reflex To Culture 09/26/2020 [facility] Appearance, Urine RFX CLOUDY High Clear Color, Urine RFX YELLOW Normal Yellow PH,Urine RFX 6.0 units Normal 5.0-9.0 Specific [place] Ur Auto RFX 1.021 Normal 1.002-1.035 Protein, [...] /LPF Normal 0-1 Reflex Urine Culture 09/26/2020 [facility] Reflex Urine Culture FULL REPORT IN L <SEE NOTE> Normal 5 Laboratory test finding 09/26/2020 [facility] Lipase 100 U/L Normal 73-393 HCG Serum Qualitative NEGATIVE Normal Negative Basic Metabolic Profile 09/26/2020 [facility] Glucose, Fasting 101 mg/dL High 70-100 [...] mg/dL Normal 8.5-10.1 Laboratory test finding 09/26/2020 [facility] Partial Thromboplastin Time 23.5 seconds Low 24.2-38.5 Prothrombin Time/Inr 09/26/2020 [facility] Prothrombin Time 12.3 seconds Normal 12.5-14.3 Inr 0.90 Normal 7 CBC With Differential 09/26/2020 [facility] White Blood Count 6.6 10 Normal [...] 36.0-66.0 Lymph % 30.3 % Normal 24.0-44.0 [place] % 7.5 % Normal 2.0-8.0 Eos % 1.2 % Normal 0.0-3.0 Baso % 0.5 % Normal 0.0-1.0 Immature Granulocyte % 0.8 % Normal 0-3.0 Nucleated Red Blood Cell % 0.0 % Normal 0-0 Neutrophils # 4.0 10 Normal 1.5-8.5 Lymph # 2.0 10 Normal 1.5-5.0 [place] # 0.5 10 Normal 0.0-0.8 Eos # 0.1 10 Normal 0.0-0.5 Baso # 0.0 10 Normal 0.0-0.2 Liver Profile 09/26/2020 [facility] Ast/Sgot 56 U/L High 7-37 Alt/SGPT 65 U/L Normal 12-78 Alkaline Phosphatase 110 U/L Normal 45-117 Bilirubin,Total 0.3 mg/dL Normal 0.2-1.0 Bilirubin,Direct < 0.1 mg/dL Normal 0.0-0.2 Total Protein 7.2 GM/DL Normal 6.4-8.2 Albumin 3.6 GM/DL Normal 3.2-5.2 Albumin/Globulin Ratio 1.0 Low 1.2-2.2 Laboratory test finding 09/05/2020 [facility] iSTAT B-hCG < 5.0 Normal 8 Istat Chem8+ Panel 09/05/2020 [facility] iSTAT HCT 39.0 % Normal 38.0-51.0 iSTAT Glucose 119 mg/dL High 70-105 iSTAT Sodium 139 mEq/L Normal 136-145 iSTAT Potassium 4.0 mEq/L Normal 3.5-5.1 iSTAT CA++ 5.0 mg/dL Normal 4.5-5.3 iSTAT Chloride 100 mEq/L Normal 98-109 iSTAT Co2 25.0 MM/L Normal 23.0-27.0 iSTAT BUN 13 mg/dL Normal 8-26 iSTAT Creatinine 0.6 mg/dL Normal 0.6-1.3 Laboratory test finding 09/05/2020 [facility] iSTAT B-hCG < 5.0 Normal 9 Istat Chem8+ Panel 09/05/2020 [facility] iSTAT HCT 36.0 % Low 38.0-51.0 iSTAT Glucose 88 mg/dL Normal 70-105 iSTAT Sodium 139 mEq/L Normal 136-145 iSTAT Potassium 4.0 mEq/L Normal 3.5-5.1 iSTAT CA++ 4.8 mg/dL Normal 4.5-5.3 iSTAT Chloride 103 mEq/L Normal 98-109 iSTAT Co2 26.0 MM/L Normal 23.0-27.0 iSTAT BUN 12 mg/dL Normal 8-26 iSTAT Creatinine 0.6 mg/dL Normal 0.6-1.3 MMR 07/31/2020 [facility] [phone] Rubella IgG Ab,S 1.49 index Immune >0.99 10 Rubeola IgG Ab,S 32.2 AU/mL Immune >16.4 11 Mumps IgG,S <9.0 AU/mL Abnormal Immune >10.9 12 Laboratory test finding 07/26/2020 [facility] Culture, Urine, Routine SEE NOTE 13 Enhanced PDF Report [id number] PDF IMAGE OFF Ua Routine 07/26/2020 Done in Doctor's Off ice Urine Specific [place] 1.030 Ua PH Test Strip 7.0 Ua Color wanda Ua Appearance cloudy Ua WBC + Ua Protein + Urine Glucose QL - Urine Ketones QL Test Strip + Urine Bilirubin TTL QL T-Strip - Urine Urobilinogen QN TS - Urine Nitrite QL TS - Ua Occult Blood +++ Xray 07/26/2020 [facility] [address] [place], [place] [address] [phone] US Renal/Pelvic (Bladder) <pending> CBC W/Auto Diff 07/25/2020 [facility] [phone] White Blood Count 8.64 10^3/uL Normal 4.00-10.50 [...] Lymph % (Auto) 25.8 % Normal 20.0-51.0 [place] % (Auto) 7.8 % Normal 2.0-15.0 Eos % (Auto) 1.5 % Normal 0.0-11.0 Baso % (Auto) 0.2 % Normal 0.0-2.0 Ig % (Auto) 0.6 % 1.00-5.00 Ig # (Auto) 0.1 10^3/uL <0.5 Gran # (Auto) 5.54 10^3/uL Normal 1.50-6.50 Lymph # (Auto) 2.2 k/uL Normal 1.0-5.0 [place] # (Auto) 0.67 k/uL Normal 0.20-1.50 Eos # (Auto) 0.13 10^3/uL Normal 0.00-1.10 Baso # (Auto) 0.02 10^3/uL Normal 0.00-0.20 Comprehensive Metabolic Panel 07/25/2020 [facility] [phone] Sodium 138 mEq/L Normal 135-145 Potassium 4.4 [...] g/dL Normal 1.0-3.0 Laboratory test finding 07/25/2020 [facility] [phone] HCG Qualitative Specimen URINE HCG Qualitative,Urine <pending> *HCG Qualitative Urine NEGATIVE 15 HCG Result,U <pending> Urinalysis 07/25/2020 [facility] [phone] Color,Ur WANDA Abnormal Yellow Appearance,Ur CLOUDY Abnormal Clear PH,Ur 6.0 5.0-8.0 Specific [place],Ur 1.019 Normal 1.002-1.035 Protein,Ur 100 mg/dL Abnormal [...] Little GFR Left ESRD GFR <15 on DYSLEXIA TEACHER 3 Stage G2 - Mildly decreased kidney [...] REPORT IN LAB NOTES (eC W and Medent). SPECIMEN APPEARS CONTAMINATED 6 Units are mL/min/1.73 m2 Chronic Kidney Disease Staging per NKF: Stage I & II GFR >=60 Normal to Mildly Decreased Stage III GFR 30-59 Moderately Decreased Stage IV GFR 15-29 Severely Decreased Stage V GFR <15 Very Little GFR Left ESRD GFR <15 on DYSLEXIA TEACHER 7 THERAPUTIC HUMAN INR VALUES INDICATIONS NORMAL [...] Mumps virus or previous vaccination. Performed at: [address] [id number] [employer] No[employer] Operator: Jimena Jay MD, Phone: [phone] CULTURE, URINE, ROUTINE Micro Number: [id number] Test Status: Final Specimen Source: URINE Specimen [...] hours later. Procedures Date Code Description Status 11/01/2020 87090 Office/Outpatient Established Mo d MDM 30-39 Min Completed 10/18/2020 98545 Office/Outpatient Established Lo w MDM 20-29 Min Completed 09/13/2020 03950 Preventive Visit Est 18-39 Yrs C ompleted 09/13/2020 66736 Office/Outpatient Established Mo d MDM 30-39 Min Completed 09/13/2020 72835 Visual Screening Test Completed 09/13/2020 71428 Electrocardiogram Complete Compl eted 09/13/2020 54071 Screening Hearing Test Completed 08/10/2020 33598 Office/Outpatient Established Lo w MDM 20-29 Min Completed 07/26/2020 01218 Office/Outpatient Established Mo d MDM 30-39 Min Completed 07/26/2020 82584 Office/Outpatient Established Mo d MDM 30-39 Min Completed 06/26/2020 40413 Office/Outpatient Established Lo w MDM 20-29 Min Completed 06/11/2020 29676 Office/Outpatient Established Mo d MDM 30-39 Min Completed Medical Devices Description No Information Available Encounters Type Date Location Provider Dx Diagnosis Office Visit 11/01/2020 11:50a [facility]- Lawanda Villarreal D.O. E16.2 Hypoglycemia, unspecified M54.5 Low back pain E66.01 Morbid (severe) obesity due to excess calories Z68.43 Body mass index [BMI] 50.0-5 9.9, adult Office Visit 10/18/2020 7:00p [facility] M54.5 Low back pain R53.83 Other fatigue Office Visit 09/13/2020 9:00a [facility] Z00.00 Encntr for general adult med ical exam w/o abnormal findings E66.01 Morbid (severe) obesity due to excess calories Z23 Encounter for immunization Z68.43 Body mass index [BMI] 50.0-5 9.9, adult R53.83 Other fatigue Office Visit 08/10/2020 6:30p [facility]- Isaac Carrillo.OMark D50.9 Iron deficiency anemia, unsp ecified M54.5 Low back pain Office [facility] N39.0 Urinary tract infection, sit e not specified R31.0 Gross hematuria M54.5 Low back pain J31.0 Chronic rhinitis Office Visit 06/26/2020 11:00a [facility] Isaac Verduzco.O. K12.2 Cellulitis and abscess of mo [facility] M54.17 Radiculopathy, lumbosacral r egion Office Visit 06/11/2020 11:30a [facility] Michelle VerduzcoOMark M54.17 Radiculopathy, lumbosacral r egion E66.01 Morbid (severe) obesity due to excess calories K04.7 Periapical abscess without s inus Z68.43 Body mass index [BMI] 50.0-5 9.9, adult Assessments Date Code Description Provider 12/10/2020 M54.5 Low back pain Kemal Villarreal D. OMark 11/01/2020 E16.2 Hypoglycemia, unspecified Kemal Villarreal D.O. 11/01/2020 M54.5 Low back pain Kemal Villarreal D. O. 11/01/2020 E66.01 Morbid (severe) obesity due to e xcess calories Isaac Verduzco.O. 11/01/2020 Z68.43 Body mass index [BMI] 50.0-59.9, adult Kemal Villarreal D.O. 10/18/2020 M54.5 Low back pain Kemal Villarreal D. O. 10/18/2020 R53.83 Other fatigue Isaac Verduzco. O. 09/13/2020 Z00.00 Encounter for genera l adult medical examination without abnormal findings Isaac Verduzco.O. 09/13/2020 E66.01 Morbid (severe) obesity due to e xcess calories Michelle VerduzcoO. 09/13/2020 Z23 Encounter for immunization Michelle VerduzcoOMark 09/13/2020 Z68.43 Body mass index [BMI] 50.0-59.9, adult Kemal Villarreal D.O. 09/13/2020 R53.83 Other fatigue Michelle Verduzco OMark 08/10/2020 D50.9 Iron deficiency anemia, unspecif ied Michelle VerduzcoOMark 08/10/2020 M54.5 Low back pain Michelle Verduzco [...] 06/26/2020 K12.2 Cellulitis and abscess of mouth Isaac Verduzco.Claudine 06/26/2020 M54.17 Radiculopathy, lumbosacral regio n Michelle VerduzcoO. 06/11/2020 M54.17 Radiculopathy, lumbosacral regio n Michelle VerduzcoOMark 06/11/2020 E66.01 Morbid (severe) obesity due to e xcess calories Michelle VerduzcoO. 06/11/2020 K04.7 Periapical abscess without sinus Kemal Villarreal D.O. 06/11/2020 Z68.43 Body mass index [BMI] 50.0-59.9, adult Kemal Villarreal D.O. Plan of Treatment Future Appointment(s):* 02/01/2021 9:20 am - Heather Martinez PA-C at [facility] * 01/17/2021 8:00 am - Kemal Villarreal D.O. at [facility] 12/10/2020 - Kemal Villarreal D.O.* M54.5 Low back pain Functional Status Description No Information Available Mental Status Description No Information Available Referrals Refer to Reason for Referral Status Appt Date [facility] Orthopedic Dear Doctor: To whom this m ay concern: I am referring this patient due to low back pain. With this referral you will also recieve the followin. Problem List; 2. Medication List; 3. Allergy List; 4. Last labs; 5. Last Progress Note. If you do not recieve the above, please contact our Multimedia Assistant. As always, we thank you for the great service you provide to our patients. Sincerely, Kemal Villarreal DO Closed [address] [place] [id number] [phone] Jay Bush Dear Doctor, This patient i [...] care of this patient. Kemal Villarreal D.O. [facility] [employer] Closed [facility] [place] [address] [phone]
--- OUTSIDE RECORDS SUMMARY | 2021-01-11 19:43 | CCD ---
Author Author [facility] Organization [facility] Address Unknown Phone Unavailable Care Team Providers Care Lumber Carrier Name Role Phone Wm Kirby Unavailable PROBLEMS No Information ALLERGIES Allergen (clinical drug ingredient) Drug/Non Drug Allergy do cumented on EMR Reaction Allergy Type Onset Date Status Penicillin (For Allergies Use Only) Rash Drug Allerg y Active ENCOUNTERS from 1983 to 2020-11-09 Encounter Location Date Provider Diagnosis [facility] [address] [phone] [place] [address] Oct, Kirby Burk IMMUNIZATIONS No Information SOCIAL HISTORY Tobacco Use: Social History Observation Description Date Details (start date - stop date) Never Smoker Sex Assigned At : Social History Observation Description Sex Assigned At Unknown Sexual Hx: Question Answer Notes Had sex in the last 12 months (vaginal, oral, or anal)? Yes LMP: 04/17/17 Have you ever had an STD? No with Men only Alcohol Screening: Question Answer Notes Did you have a drink containing alcohol in the past year? No Points 0 Interpretation Negative Tobacco Use: Question Answer Notes Are you a: never smoker REASON FOR REFERRAL No Information VITAL SIGNS No information MEDICATIONS Medication SIG (Take, Route, Frequency, Duration) Notes Start Da te End Date Status Pyridium 200 MG 1 tablet after meals Orally Three times a day Not-Taking [place] 5-325 MG 1 tablet as needed Orally every 6 hrs Not-Taking Pradaxa 150 MG 1 capsule Orally Twice a day Active Nitrofurantoin Macrocrystal 100 MG 1 capsule with food or milk Orally Once a day Not-Taking PROCEDURES No Information RESULTS No Results REASON FOR VISIT No Information MEDICAL (GENERAL) HISTORY Type Description Date Medical History abdominal pain Medical History diverticulosis Medical History hematuria Medical History LLQ pain Medical History Hx of UTI Medical History hx of blood clots in her lung Surgical History gallladder Surgical History appendix Surgical History stent in kidney Goals Section No Information Health Concerns No Information MEDICAL EQUIPMENT No Information MENTAL STATUS No Information FUNCTIONAL STATUS No Information ASSESSMENTS No Information PLAN OF TREATMENT No Information Insurance Providers Payer Name Payer Address Payer Phone Insured Name Patient Relati onship to Insured Coverage Start Date Coverage End Date MEDICAID [facility] [address] [facility] [id number] TANIYA BAILEY self
--- OUTSIDE RECORDS SUMMARY | 2021-01-11 19:43 | CCD | Continuity of Care Document ---
Author Author Isidro VILLARREAL D.O. Organization Unknown Address [address] [place] [address] Phone [phone] Care Team Providers Care Bi Application Developer Name Role Phone Kmeal Villarreal DO AUTM [phone] Jay Bush AUTM [phone] Problems Active Problems Provider Date Drug seeking [...] Status Reviewed: 11/01/20 Patient has never smoked Allergies, Adverse Reactions, Alerts Active Allergies Criticality Reaction | Severity Comments Date Cyclobenzaprine Unable to assess criticality rash 02/25/2013 Penicillin Unable to assess criticality rash rash 08/27/2012 NSAIDS Unable to assess criticality Taking Loven ox 06/04/2020 Medications Active Medications SIG Qnty Indications Ordering Provide r Date Topiramate 25mg Tablets 1 by mouth twice a day 60tabs M54.5 Michelle VerduzcoOMark 11/01/2020 Cetirizine HCL 10mg Tablets 1 by mouth every day 30tabs J31.0 Michelle VerduzcoOMark 07/26/2020 Lovenox 120mg/0.8ML Solution inject 0.8 milliliters sc twice a day 48ml Z79.01 Michelle VerduzcoO. History Medications Tizanidine HCL 4mg Capsules one by mouth every night prn 10caps M54.5 Michelle VerduzcoO. 10/18/2020 - 11/01/2020 Sulfamethoxazole/Trimethoprim DS 800-160mg Tablets [...] needed 30tabs M54.17 Michelle VerduzcoO. - 11/01/2020 Claritin-D 12 Hour 5 -120mg Tablets ER 12HR 1 by mouth, every 12 hours, as noted , for nasal congestion.... 60tabs J31.0 Michelle VerduzcoO. 06/04/2020 - 06/11/2020 Bactrim DS 800-160mg Tablets 1 by mouth every 12 hours for ten days 20tabs K04.7 Michelle VerduzcoO. 0 06/04/2020 - 06/26/2020 Clindamycin HCL 150mg Capsules Take 2 tabs PO bid x 10 days 40caps K05.00 Heather Martinez PA-C 05/25/2020 - 06/04/2020 Hydrocodone Bitartrate/Acetaminophen 5-325mg Tablets take one tablet, orally, every 12 hours, as needed, for pain 14tabs K08.89 Kemal Villarreal D.O. 05/25/2020 - 06/26/2020 Medications Administered in Office Medication SIG Qnty Indications Ordering Provider Date Rocephin (Ceftriaxone) 1 Gram Inj ection Heather Martinez PA-C 06/04/2020 Immunizations CPT Code Status Date Vaccine Reaction Lot # [id number] Given 09/13/2020 MMR Virus Immunization No Reaction S [id number] Given 08/07/2020 MMR Virus Immunization No Reaction s [id number] Q2038 Given 06/03/2013 Fluzone Trivalent Immunization 93891 Given 03/16/2007 Tetanus Toxoid Vital Signs Date Vital Result Comment 11/01/2020 11:55am Body Temperature 97.3 F Weight 275.00 lb Heart Rate 86 /min BP Systolic 126 mmHg L Arm, Lrg cuff BP Diastolic 84 mmHg L Arm, Lrg cuff Respiratory Rate 16 /min Height 60 inches 5'0" BMI (Body Mass Index) 53.7 kg/m2 [place] Body Weight 100 lb O2 % BldC Oximetry 99 % Room Air Height in cm's 152.4 cm 09/13/2020 10:22am Body Temperature 98.2 F Weight 271.00 lb Heart Rate 91 /min BP Systolic 120 mmHg BP Diastolic 86 mmHg Respiratory Rate 22 /min Height 60 inches 5'0" BMI (Body Mass Index) 52.9 kg/m2 [place] Body Weight 100 lb O2 % BldC Oximetry 96 % Room Air Right Visual Acuity Distance 20/15 10:28 Am Left Visual Acuity Distance 20/15 Height in cm's 152.4 cm Results Test Acquired Date Facility Test Result H/L Range Note Xray 11/01/2020 [facility] [address] [place] [address] [phone] CR Spine Lumbosac Complete W/Bend <pending> Laboratory test finding 11/01/2020 Done in Doctor's Office Glucose Fingerstick 91 Laboratory test finding 10/30/2020 [facility] B-hCG < 5.0 Normal 1 Laboratory test finding 10/30/2020 [facility] Lipase 105 U/L Normal 73-393 Basic Metabolic Profile 10/30/2020 [facility] Glucose, Fasting 91 mg/dL Normal 70-100 [...] 8-16 Calcium Level 8.9 mg/dL Normal 8.5-10.1 Liver Profile 10/30/2020 [facility] Ast/Sgot 40 U/L High 7-37 Alt/SGPT 58 U/L Normal 12-78 Alkaline Phosphatase 112 U/L Normal 45-117 Bilirubin,Total 0.3 mg/dL Normal 0.2-1.0 Bilirubin,Direct 0.1 mg/dL Normal 0.0-0.2 Total Protein 7.4 GM/DL Normal 6.4-8.2 Albumin 3.6 GM/DL Normal 3.2-5.2 Albumin/Globulin Ratio 0.9 Low 1.2-2.2 CBC With Differential 10/30/2020 [facility] White Blood Count 10.1 10 High [...] 36.0-66.0 Lymph % 23.8 % Low 24.0-44.0 [place] % 5.9 % Normal 2.0-8.0 Eos % 0.8 % Normal 0.0-3.0 Baso % 0.4 % Normal 0.0-1.0 Immature Granulocyte % 0.8 % Normal 0-3.0 Nucleated Red Blood Cell % 0.0 % Normal 0-0 Neutrophils # 6.9 10 Normal 1.5-8.5 Lymph # 2.4 10 Normal 1.5-5.0 [place] # 0.6 10 Normal 0.0-0.8 Eos # 0.1 10 Normal 0.0-0.5 Baso # 0.0 10 Normal 0.0-0.2 Basic Metabolic Panel 10/06/2020 [facility] [place] [phone] Sodium 139 mEq/L Normal 135-145 Potassium 3.8 mEq/L Normal 3.5-5.3 Chloride 108 mEq/L Normal 94-110 Carbon Dioxide 24 mEq/L Normal 22-33 Anion Gap 11 Normal 5-16 Blood Urea Nitro 14 mg/dL Normal 7-25 Creatinine 0.8 mg/dL Normal 0.6-1.4 GFR 81.2 mL/min 3 BUN/Creat Ratio 17 Normal 8-36 Glucose 82 mg/dL Normal 70-100 CA 9.6 mg/dL Normal 8.7-10.5 Laboratory test finding 10/06/2020 [facility] [phone] Glycosylated Hgba1c 4.9 % Normal 4.1-6.5 Laboratory test finding 10/06/2020 [facility] [phone] No Urine Received From Patient NO URINE RECEIVE <SEE N OTE> 4 CBC With Differential 09/26/2020 [facility] White Blood Count 6.6 10 Normal [...] 36.0-66.0 Lymph % 30.3 % Normal 24.0-44.0 [place] % 7.5 % Normal 2.0-8.0 Eos % 1.2 % Normal 0.0-3.0 Baso % 0.5 % Normal 0.0-1.0 Immature Granulocyte % 0.8 % Normal 0-3.0 Nucleated Red Blood Cell % 0.0 % Normal 0-0 Neutrophils # 4.0 10 Normal 1.5-8.5 Lymph # 2.0 10 Normal 1.5-5.0 [place] # 0.5 10 Normal 0.0-0.8 Eos # 0.1 10 Normal 0.0-0.5 Baso # 0.0 10 Normal 0.0-0.2 Prothrombin Time/Inr 09/26/2020 [facility] Prothrombin Time 12.3 seconds Normal 12.5-14.3 Inr 0.90 Normal 5 Laboratory test finding 09/26/2020 [facility] Partial Thromboplastin Time 23.5 seconds Low 24.2-38.5 Liver Profile 09/26/2020 [facility] Ast/Sgot 56 U/L High 7-37 Alt/SGPT 65 U/L Normal 12-78 Alkaline Phosphatase 110 U/L Normal 45-117 Bilirubin,Total 0.3 mg/dL Normal 0.2-1.0 Bilirubin,Direct < 0.1 mg/dL Normal 0.0-0.2 Total Protein 7.2 GM/DL Normal 6.4-8.2 Albumin 3.6 GM/DL Normal 3.2-5.2 Albumin/Globulin Ratio 1.0 Low 1.2-2.2 Basic Metabolic Profile 09/26/2020 [facility] Glucose, Fasting 101 mg/dL High 70-100 [...] mg/dL Normal 8.5-10.1 Laboratory test finding 09/26/2020 [facility] Lipase 100 U/L Normal 73-393 HCG Serum Qualitative NEGATIVE Normal Negative Ua W/ Reflex To Culture 09/26/2020 [facility] Appearance, Urine RFX CLOUDY High Clear Color, Urine RFX YELLOW Normal Yellow PH,Urine RFX 6.0 units Normal 5.0-9.0 Specific [place] Ur Auto RFX 1.021 Normal 1.002-1.035 Protein, [...] /LPF Normal 0-1 Reflex Urine Culture 09/26/2020 [facility] Reflex Urine Culture FULL REPORT IN L <SEE NOTE> Normal 7 Istat Chem8+ Panel 09/05/2020 [facility] iSTAT HCT 39.0 % Normal 38.0-51.0 iSTAT Glucose 119 mg/dL High 70-105 iSTAT Sodium 139 mEq/L Normal 136-145 iSTAT Potassium 4.0 mEq/L Normal 3.5-5.1 iSTAT CA++ 5.0 mg/dL Normal 4.5-5.3 iSTAT Chloride 100 mEq/L Normal 98-109 iSTAT Co2 25.0 MM/L Normal 23.0-27.0 iSTAT BUN 13 mg/dL Normal 8-26 iSTAT Creatinine 0.6 mg/dL Normal 0.6-1.3 Istat Chem8+ Panel 09/05/2020 [facility] iSTAT HCT 36.0 % Low 38.0-51.0 iSTAT Glucose 88 mg/dL Normal 70-105 iSTAT Sodium 139 mEq/L Normal 136-145 iSTAT Potassium 4.0 mEq/L Normal 3.5-5.1 iSTAT CA++ 4.8 mg/dL Normal 4.5-5.3 iSTAT Chloride 103 mEq/L Normal 98-109 iSTAT Co2 26.0 MM/L Normal 23.0-27.0 iSTAT BUN 12 mg/dL Normal 8-26 iSTAT Creatinine 0.6 mg/dL Normal 0.6-1.3 Laboratory test finding 09/05/2020 [facility] iSTAT B-hCG < 5.0 Normal 8 Laboratory test finding 09/05/2020 [facility] iSTAT B-hCG < 5.0 Normal 9 MMR 07/31/2020 [facility] [phone] Rubella IgG Ab,S 1.49 index Immune >0.99 10 Rubeola IgG Ab,S 32.2 AU/mL Immune >16.4 11 Mumps IgG,S <9.0 AU/mL Abnormal Immune >10.9 12 Laboratory test finding 07/26/2020 [facility] Culture, Urine, Routine SEE NOTE 13 Enhanced PDF Report [id number] PDF IMAGE OFF Ua Routine 07/26/2020 Done in Doctor's Off ice Urine Specific [place] 1.030 Ua PH Test Strip 7.0 Ua Color wanda Ua Appearance cloudy Ua WBC + Ua Protein + Urine Glucose QL - Urine Ketones QL Test Strip + Urine Bilirubin TTL QL T-Strip - Urine Urobilinogen QN TS - Urine Nitrite QL TS - Ua Occult Blood +++ Xray 07/26/2020 [facility] [address] [place] [address] [phone] US Renal/Pelvic (Bladder) <pending> CBC W/Auto Diff 07/25/2020 [facility] [phone] White Blood Count 8.64 10^3/uL Normal 4.00-10.50 [...] Lymph % (Auto) 25.8 % Normal 20.0-51.0 [place] % (Auto) 7.8 % Normal 2.0-15.0 Eos % (Auto) 1.5 % Normal 0.0-11.0 Baso % (Auto) 0.2 % Normal 0.0-2.0 Ig % (Auto) 0.6 % 1.00-5.00 Ig # (Auto) 0.1 10^3/uL <0.5 Gran # (Auto) 5.54 10^3/uL Normal 1.50-6.50 Lymph # (Auto) 2.2 k/uL Normal 1.0-5.0 [place] # (Auto) 0.67 k/uL Normal 0.20-1.50 Eos # (Auto) 0.13 10^3/uL Normal 0.00-1.10 Baso # (Auto) 0.02 10^3/uL Normal 0.00-0.20 Comprehensive Metabolic Panel 07/25/2020 [facility] [phone] Sodium 138 mEq/L Normal 135-145 Potassium 4.4 [...] g/dL Normal 1.0-3.0 Laboratory test finding 07/25/2020 [facility] [phone] HCG Qualitative Specimen URINE HCG Qualitative,Urine <pending> *HCG Qualitative Urine NEGATIVE 15 HCG Result,U <pending> Urinalysis 07/25/2020 [facility] [phone] Color,Ur WANDA Abnormal Yellow Appearance,Ur CLOUDY Abnormal Clear PH,Ur 6.0 5.0-8.0 Specific [place],Ur 1.019 Normal 1.002-1.035 Protein,Ur 100 mg/dL Abnormal Negative Glucose, Ur NEGATIVE mg/dL Negative Ketones,Ur NEGATIVE mg/dL Negative Occult Blood,Ur LARGE Abnormal Negative Nitrate,Ur NEGATIVE Negative Leukocyte Esterase ,Ur TRACE Abnormal Negative Bilirubin,Ur NEGATIVE Negative Urobilinogen,Ur 0.2-1.0 EUMG/DL Neg-0-1.0 RBC,Ur >100 PERHPF Abnormal 0-2 Urine Epith MANY PER/LPF Few-Mod Mucus,Ur FEW PERHPF None Seen CBC W/Auto Diff 05/11/2020 [facility] [phone] White Blood Count 6.20 10^3/uL Normal 4.00-10.50 Red Blood Count 4.15 10^6/uL Normal 3.90-5.20 Hemoglobin 11.3 g/dL Low 11.5-15.6 Hematocrit 35.3 % Normal 35.0-46.0 MCV 85.1 FL Normal 80.0-100.0 MCH 27.2 pg Normal 27.0-34.0 MCHC 32.0 g/dL Normal 32-36 RDW 14.4 % Normal 11.5-14.5 Platelet Count 333 10^3/uL Normal 130-400 MPV 9.0 FL Normal 8.7-13.2 Gran % (Auto) 63.2 % Normal 42.0-75.0 Lymph % (Auto) 28.2 % Normal 20.0-51.0 [place] % (Auto) 6.1 % Normal 2.0-15.0 Eos % (Auto) 1.8 % Normal 0.0-11.0 Baso % (Auto) 0.2 % Normal 0.0-2.0 Ig % (Auto) 0.5 % 1.00-5.00 Ig # (Auto) 0.0 10^3/uL <0.5 Gran # (Auto) 3.92 10^3/uL Normal 1.50-6.50 Lymph # (Auto) 1.8 k/uL Normal 1.0-5.0 [place] # (Auto) 0.38 k/uL Normal 0.20-1.50 Eos # (Auto) 0.11 10^3/uL Normal 0.00-1.10 Baso # (Auto) 0.01 10^3/uL Normal 0.00-0.20 Laboratory test finding 05/11/2020 [facility] [phone] HCG Qualitative Specimen SERUM *HCG Qualitative Serum NEGATIVE 16 Comprehensive Metabolic Panel 05/11/2020 [facility] [phone] Sodium 139 mEq/L Normal 135-145 Potassium 4.1 mEq/L Normal 3.5-5.3 Chloride 106 mEq/L Normal 94-110 Carbon Dioxide 27 mEq/L Normal 22-33 Anion Gap 10 Normal 5-16 Blood Urea Nitro 12 mg/dL Normal 7-25 Creatinine 0.8 mg/dL Normal 0.6-1.4 GFR 81.2 mL/min 17 BUN/Creat Ratio 15 Normal 8-36 Glucose 131 mg/dL High 70-100 CA 8.7 mg/dL Normal 8.7-10.5 Bilirubin,Total 0.3 mg/dL Normal 0.1-1.3 Ast 51 U/L High 5-40 Alt 65 U/L High 5-48 Alkaline Phosphatase 120 U/L Normal 40-140 Total Protein 6.4 g/dL Normal 5.9-8.3 Albumin 4.4 g/dL Normal 3.0-5.1 Globulin 2.0 g/dL Normal 1.5-3.5 Alb/Glob Ratio 2.2 g/dL Normal 1.0-3.0 Urinalysis 05/11/2020 [facility] [phone] Color,Ur YELLOW Yellow Appearance,Ur CLOUDY Abnormal Clear PH,Ur 5.0 5.0-8.0 Specific [place],Ur 1.020 Normal 1.002-1.035 Protein,Ur 30 mg/dL Abnormal Negative Glucose, Ur NEGATIVE mg/dL Negative Ketones,Ur NEGATIVE mg/dL Negative Occult Blood,Ur LARGE Abnormal Negative Nitrate,Ur NEGATIVE Negative Leukocyte Esterase ,Ur MODERATE Abnormal Negative Bilirubin,Ur NEGATIVE Negative Urobilinogen,Ur 0.2-1.0 EUMG/DL Neg-0-1.0 RBC,Ur >100 PERHPF Abnormal 0-2 WBC,Ur 25-49 PERHPF Abnormal <5 Urine Epith MANY PER/LPF Few-Mod Bacteria,Ur RARE PERHPF None Mucus,Ur RARE PERHPF None Seen Laboratory test finding 05/11/2020 [facility] [phone] Urine Culture <SEE NOTE> 18 1 QUANTITATIVE RESULT QUALITATIVE INTERPRETATION <5.0 IU/L NEGATIVE 5.0 - 25.0 IU/L INDETER MINATE >25.0 IU/L POSITIVE 2 Units are mL/min/1.73 m2 Chronic Kidney Disease Staging per NKF: Stage I & II GFR >=60 Normal to Mildly Decreased Stage III GFR 30-59 Moderately Decreased Stage IV GFR 15-29 Severely Decreased Stage V GFR <15 Very Little GFR Left ESRD GFR <15 on FLATBED STITCHER 3 Stage G2 - Mildly decreased kidney [...] Patient informed to return with specimen. 5 THERAPUTIC HUMAN INR VALUES INDICATIONS NORMAL RANGES PROPHYLAXIS/TREATMENT OF: VENOUS THROMBOSIS 2.0-3.0 PULMONARY EMBOLISM 2.0-3.0 PREVENTION OF SYSTEMIC EMBOLISM FROM: TISSUE HEART VALVES 2.0-3.0 ACUTE MYOCARDIAL INFARCTION 2.0-3.0 VALVULAR HEART DISEASE 2.0-3.0 ATRIAL FIBRILLATION 2.0-3.0 MECHANICAL VALVES(HIGH RISK) 2.5-3.5 RECURRENT MYOCARDIAL INFARCTION 2.5-3.5 6 Units are mL/min/1.73 m2 Chronic Kidney Disease Staging per NKF: Stage I & II GFR >=60 Normal to Mildly Decreased Stage III GFR 30-59 Moderately Decreased Stage IV GFR 15-29 Severely Decreased Stage V GFR <15 Very Little GFR Left ESRD GFR <15 on FLATBED STITCHER 7 FULL REPORT IN LAB NOTES (eC W and Medmariajose). SPECIMEN APPEARS CONTAMINATED 8 QUANTITATIVE RESULT QUALITATIVE INTERPRETATION <5.0 IU/L [...] Mumps virus or previous vaccination. Performed at: [facility] [id number] Pin Game Machine Inspector: Jimena Jay MD, Phone: [phone] CULTURE, URINE, ROUTINE Micro Number: [id number] Test Status: Final Specimen Source: URINE Specimen [...] with a new specimen 48-72 hours later. 16 Reference range is Negative "Extreme" early may have low levels of HCG present. If is suspected, repeat testing with a new specimen in 48-72 hours 17 Stage G2 - Mildly decreased kidney function The GFR is an estimate of the Glomerular Filtration Rate. It is an aid to assess a patient's renal function. It is not a conclusive diagnosis of kidney disease. GFR normal is >=90 The MDRD GFR calculation is considered valid between the ages of 18 and 75 years only. 18 Run: 05/12/20 1030 INTERFACED REPORT Name: Isidro Field Age/Sex: 34/F Location: ED Acct: [id number] Unit: [id number] Status: [facility] Room/Bed: Re05/11/20 Disch: Att Dr: Kyree John MD Specimen #: [id number] Ordered : 05/11/20 Collected : 05/11/20 By: ARLYN Received: 05/11/20 By: DELLA Source: URINE CC Specimen Description: Procedure Result COLONY COUNT Final COLONY COUNT GREATER THAN 100,000 CFU/ML URINE CULTURE Final PRESENCE OF 3 OR MORE ORGANISMS-SPECIMEN MAY BE CONTAMINATED SUGGEST REPEAT END OF REPORT Procedures Date Code Description Status 11/01/2020 Office/Outpatient Established Mo d MDM 30-39 Min Completed 10/18/2020 Office/Outpatient Established Lo w MDM 20-29 Min Completed 09/13/2020 53195 Preventive Visit Est 18-39 Yrs C ompleted 09/13/2020 Office/Outpatient Established Mo d MDM 30-39 Min Completed 09/13/2020 54423 Visual Screening Test Completed 09/13/2020 44382 Electrocardiogram Complete Compl eted 09/13/2020 31952 Screening Hearing Test Completed 08/10/2020 Office/Outpatient Established Lo w MDM 20-29 Min Completed 07/26/2020 Office/Outpatient Established Mo d MDM 30-39 Min Completed 07/26/2020 Office/Outpatient Established Mo d MDM 30-39 Min Completed 06/26/2020 Office/Outpatient Established Lo w MDM 20-29 Min Completed 06/11/2020 48489 Office/Outpatient Established Mo d MDM 30-39 Min Completed 06/04/2020 15091 Office/Outpatient Established Mo d MDM 30-39 Min Completed 06/04/2020 58468 Office/Outpatient Established Mo d MDM 30-39 Min Completed 06/04/2020 53339 Admin Of Inj (Therapeutic Phroph ylactic Or Diagnostic Subq Inj Completed 06/04/2020 30684 Brief Emotional/Beha v Assessment W/ Scoring Doc Per Standard Inst Completed 06/04/2020 77836 Brief Emotional/Beha v Assessment W/ Scoring Doc Per Standard Inst Completed 05/28/2020 47955 Office/Outpatient Established Mo d MDM 30-39 Min Completed 05/28/2020 30573 Office/Outpatient Established Mo d MDM 30-39 Min Completed 05/28/2020 86328 Brief Emotional/Beha v Assessment W/ Scoring Doc Per Standard Inst Completed 05/25/2020 77367 Office/Outpatient Established Lo w MDM 20-29 Min Completed Medical Devices Description No Information Available Encounters Type Date Location Provider Dx Diagnosis Office Visit 10/18/2020 7:00p [facility]- Lawanda Villarreal D.O. M54.5 Low back pain R53.83 Other fatigue Office Visit 09/13/2020 9:00a [facility]- Michelle SwansonOMark Z00.00 Encntr for general adult med ical exam w/o abnormal findings E66.01 Morbid (severe) obesity due to excess calories Z23 Encounter for immunization Z68.43 Body mass index [BMI] 50.0-5 9.9, adult R53.83 Other fatigue Office Visit 08/10/2020 6:30p [facility]- Lawanda Villarreal D.O. D50.9 Iron deficiency anemia, unsp ecified M54.5 Low back pain Office Visit 07/26/2020 2:30p [facility]- Lawanda Martinez PA-C N39.0 Urinary tract infection, sit e not specified R31.0 Gross hematuria M54.5 Low back pain J31.0 Chronic rhinitis Office Visit 06/26/2020 11:00a [facility]- Reese Adams D.O. K12.2 Cellulitis and abscess of mo [facility] M54.17 Radiculopathy, lumbosacral r egion Office Visit 06/11/2020 11:30a [facility] Kemal Villarreal D.O. 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 K05.00 Acute gingivitis, plaque ind uced K08.89 Other specified disorders of teeth and supporting structures Assessments Date Code Description Provider 11/01/2020 E16.2 Hypoglycemia, unspecified Kemal Villarreal D.O. 11/01/2020 M54.5 Low back pain Michelle Verduzco 11/01/2020 E66.01 Morbid (severe) obesity due to e xcess calories Kemal Villarreal D.O. 11/01/2020 Z68.43 Body mass index [BMI] 50.0-59.9, adult Kemal Villarreal D.O. 10/18/2020 M54.5 Low back pain Michelle Verduzco OMark 10/18/2020 R53.83 Other fatigue Michelle Verduzco 09/13/2020 Z00.00 Encounter for genera l adult medical examination without abnormal findings Kemal Villarreal D.O. 09/13/2020 E66.01 Morbid (severe) obesity due to e xcess calories Kemal Villarreal D.O. 09/13/2020 Z23 Encounter for immunization Kemal Villarreal D.O. 09/13/2020 Z68.43 Body mass index [BMI] 50.0-59.9, adult Kemal Villarreal D.O. 09/13/2020 R53.83 Other fatigue Michelle Verduzco 08/10/2020 D50.9 Iron deficiency anemia, unspecif ied Michelle VerduzcoOMark 08/10/2020 M54.5 Low back pain Michelle Verduzco 08/07/2020 Z23 Encounter for immunization Kemal Villarreal [...] 06/26/2020 K12.2 Cellulitis and abscess of mouth Michelle VerduzcoOMark 06/26/2020 M54.17 Radiculopathy, lumbosacral regio n Kemal Villarreal D.O. 06/11/2020 M54.17 Radiculopathy, lumbosacral regio n Kemal Villarreal D.O. 06/11/2020 E66.01 Morbid (severe) obesity due to e xcess calories Isaac Verduzco.OMark 06/11/2020 K04.7 Periapical abscess without sinus Isaac Verduzco.O. 06/11/2020 Z68.43 Body mass index [BMI] 50.0-59.9, adult Isaac Verduzco.OMark 06/04/2020 K04.7 Periapical abscess without sinus Isaac Verduzco.O. 06/04/2020 S02.82xA Fracture of other sp ecified skull and facial bones, left side, initial encounter for closed fracture Heather Martinez PA-C 06/04/2020 E66.2 Morbid (severe) obesity with sri eolar hypoventilation Michelle VerduzcoOMark 06/04/2020 K04.7 Periapical abscess without sinus Heather Martinez PA-C 06/04/2020 J31.0 Chronic rhinitis Isaac VerduzcoOMark 06/04/2020 Z13.89 Encounter for screening for othe r disorder Heather Martinez PA-C 06/04/2020 Z13.31 Encounter for screening for depr ession Michelle VerduzcoOMark 06/04/2020 E66.2 Morbid (severe) obesity with sri eolar hypoventilation Heather Martinez PA-C 06/04/2020 S02.82xA Fracture of other sp ecified skull and facial bones, left side, initial encounter for closed fracture Kemal Villarreal D.O. 06/04/2020 J31.0 Chronic rhinitis Heather Martinez PA-C 06/04/2020 Z68.43 Body mass index [BMI] 50.0-59.9, adult Michelle VerduzcoOMark 06/04/2020 Z68.43 Body mass index [BMI] 50.0-59.9, adult Heather Martinez PA-C 05/28/2020 E66.01 Morbid (severe) obesity due to e xcess calories Isaac Verduzco.O. 05/28/2020 Z13.89 Encounter for screening for othe r disorder Heather Martinez PA-C 05/28/2020 K04.7 Periapical abscess without sinus Kemal Villarreal D.O. 05/28/2020 E66.01 Morbid (severe) obesity due to e xcess calories Heather Martinez PA-C 05/28/2020 S02.82xA Fracture of other sp ecified skull and facial bones, left side, initial encounter for closed fracture Kemal Villarreal D.O. 05/28/2020 K04.7 Periapical abscess without sinus Heather Martinez PA-C 05/28/2020 Z13.31 Encounter for screening for depr ession Kemal Villarreal D.O. 05/28/2020 S02.82xA Fracture of other sp ecified skull and facial bones, left side, initial encounter for closed fracture Heather Martinez PA-C 05/28/2020 Z68.43 Body mass index [BMI] 50.0-59.9, adult Kemal Villarreal D.O. 05/28/2020 Z68.43 Body mass index [BMI] 50.0-59.9, adult Heather Martinez PA-C 05/25/2020 K05.00 Acute gingivitis, plaque induced Kemal Villarreal D.O. 05/25/2020 K08.89 Other specified disorders of rosalinda th and supporting structures Kemal Villarreal D.O. Plan of Treatment Future Appointment(s):* 02/01/2021 9:20 am - Heather Martinez PA-C at [facility] * 01/17/2021 8:00 am - Kemal Villarreal D.O. at [facility] Functional Status Description No Information Available Mental Status Description No Information Available Referrals Refer to Reason for Referral Status Appt Date [facility] Dear Doctor: To whom this m ay concern: I am referring this patient due to low back pain. With this referral you will also recieve the followin. Problem List; 2. Medication List; 3. Allergy List; 4. Last labs; 5. Last Progress Note. If you do not recieve the above, please contact our Electrician. As always, we thank you for the great service you provide to our patients. Sincerely, Kemal Villarreal DO Created [address] [place] [address] [phone] Ferreira Dear Doctor, This patient i s being [...] patient. Kemal Villarreal D.O. [facility] [address] [place] [address] [phone]
--- OUTSIDE RECORDS SUMMARY | 2021-01-11 19:43 | CCD | Continuity of Care Document ---
Author Author Isidro VILLARREAL D.O. Organization Unknown Address [address] [place] [address] Phone [phone] Care Team Providers Care Children'S Tutor Name Role Phone Kemal Villarreal DO AUTM [phone] Jay Bush AUTM [phone] Problems Active Problems Provider Date Drug seeking [...] Patient has never smoked Smoking Status Reviewed: 10/16/20 Patient has never smoked Allergies, Adverse Reactions, Alerts Active Allergies Reaction Severity Comments Date Cyclobenzaprine rash 02/25/2013 Penicillin rash rash 08/27/2012 NSAIDS Taking Lovenox 06/04/2020 Medications Active Medications SIG Qnty Indications Ordering Provide r Date Tizanidine HCL 4mg Capsules one by mouth every night prn 10caps M54.5 Kemal Villarreal D.O. 10/18/2020 Cetirizine HCL 10mg Tablets 1 by mouth every day 30tabs J31.0 Kemal Villarreal D.O. 07/26/2020 Methocarbamol 500mg Tablets take 1 tablet by mouth nightly as needed 30tabs M54.17 Michelle VerduzcoOMark Lovenox 120mg/0.8ML Solution inject 0.8 milliliters sc twice a day 48ml Z79.01 Kemal Villarreal D.O. History Medications Sulfamethoxazole/Trimethoprim DS 800-160mg Tablets 1 by mouth [...] day for 10 days 28caps K12.2 Isaac Verduzco 06/26/2020 - 07/26/2020 Claritin-D 12 Hour 5 -120mg Tablets ER 12HR 1 by mouth, every 12 hours, as noted , for nasal congestion.... 60tabs J31.0 Kemal Villarreal D.O. 06/04/2020 - 06/11/2020 Bactrim DS 800-160mg Tablets [...] K08.89 Kemal Villarreal D.O. 05/25/2020 - 06/26/2020 Baclofen 10mg Tablets 1 po qhs 14tabs M54.17 Heather Martinez PA-C 04/30/2020 - 06/26/2020 Medications Administered in Office Medication SIG Qnty Indications Ordering Provider Date Rocephin (Ceftriaxone) 1 Gram Inj ection Heather Martinez PA-C 06/04/2020 Immunizations CPT Code Status Date Vaccine Reaction Lot # 40371 Given 09/13/2020 MMR Virus Immunization No Reaction S [id number] Given 08/07/2020 MMR Virus Immunization No Reaction s [id number] Given 06/03/2013 Fluzone Trivalent Immunization 73205 Given 03/16/2007 Tetanus Toxoid Vital Signs Date Vital Result Comment 09/13/2020 10:22am Body Temperature 98.2 F Weight 271.00 lb Heart Rate 91 /min BP Systolic 120 mmHg BP Diastolic 86 mmHg Respiratory Rate 22 /min Height 60 inches 5'0" BMI (Body Mass Index) 52.9 kg/m2 [place] Body Weight 100 lb O2 % BldC Oximetry 96 % Room Air Right Visual Acuity Distance 20/15 10:28 Am Left Visual Acuity Distance 20/15 Height in cm's 152.4 cm 08/07/2020 3:14pm Body Temperature 97.0 F Weight 270.00 lb Heart Rate 86 /min BP Systolic 126 mmHg BP Diastolic 76 mmHg Respiratory Rate 20 /min O2 % BldC Oximetry 97 % Results Test Acquired Date Facility Test Result H/L Range Note Laboratory test finding 10/06/2020 [facility] [phone] Glycosylated Hgba1c 4.9 % Normal 4.1-6.5 Laboratory test finding 10/06/2020 [facility] [phone] No Urine Received From Patient NO URINE RECEIVE <SEE N OTE> 1 Basic Metabolic Panel 10/06/2020 [facility] [phone] Sodium 139 mEq/L Normal 135-145 Potassium 3.8 mEq/L Normal 3.5-5.3 Chloride 108 mEq/L Normal 94-110 Carbon Dioxide 24 mEq/L Normal 22-33 Anion Gap 11 Normal 5-16 Blood Urea Nitro 14 mg/dL Normal 7-25 Creatinine 0.8 mg/dL Normal 0.6-1.4 GFR 81.2 mL/min 2 BUN/Creat Ratio 17 Normal 8-36 Glucose 82 mg/dL Normal 70-100 CA 9.6 mg/dL Normal 8.7-10.5 CBC With Differential 09/26/2020 [facility] White Blood Count 6.6 10 Normal 4.0-10.0 [...] 36.0-66.0 Lymph % 30.3 % Normal 24.0-44.0 Otero % 7.5 % Normal 2.0-8.0 Eos % 1.2 % Normal 0.0-3.0 Baso % 0.5 % Normal 0.0-1.0 Immature Granulocyte % 0.8 % Normal 0-3.0 Nucleated Red Blood Cell % 0.0 % Normal 0-0 Neutrophils # 4.0 10 Normal 1.5-8.5 Lymph # 2.0 10 Normal 1.5-5.0 Otero # 0.5 10 Normal 0.0-0.8 Eos # 0.1 10 Normal 0.0-0.5 Baso # 0.0 10 Normal 0.0-0.2 Prothrombin Time/Inr 09/26/2020 [facility] Prothrombin Time 12.3 seconds Normal 12.5-14.3 Inr 0.90 Normal 3 Laboratory test finding 09/26/2020 [facility] Partial Thromboplastin Time 23.5 seconds Low 24.2-38.5 Liver Profile 09/26/2020 [facility] Ast/Sgot 56 U/L High 7-37 Alt/SGPT 65 U/L Normal 12-78 Alkaline Phosphatase 110 U/L Normal 45-117 Bilirubin,Total 0.3 mg/dL Normal 0.2-1.0 Bilirubin,Direct < 0.1 mg/dL Normal 0.0-0.2 Total Protein 7.2 GM/DL Normal 6.4-8.2 Albumin 3.6 GM/DL Normal 3.2-5.2 Albumin/Globulin Ratio 1.0 Low 1.2-2.2 Basic Metabolic Profile 09/26/2020 [facility] Glucose, Fasting 101 mg/dL High 70-100 Blood Urea Nitrogen 13 mg/dL Normal 7-18 Creatinine For GFR 0.72 mg/dL Normal 0.55-1.30 Glomerular Filtration Rate > 60.0 Normal >60 4 Sodium Level 140 mEq/L Normal 136-145 Potassium Serum 4.3 mEq/L Normal 3.5-5.1 Chloride Level 108 mEq/L High 98-107 Carbon Dioxide Level 23 mEq/L Normal 21-32 Anion Gap 9 mEq/L Normal 8-16 Calcium Level 9.0 mg/dL Normal 8.5-10.1 Laboratory test finding 09/26/2020 [facility] Lipase 100 U/L Normal 73-393 HCG Serum Qualitative NEGATIVE Normal Negative Ua W/ Reflex To Culture 09/26/2020 [facility] Appearance, Urine RFX CLOUDY High Clear Color, Urine RFX YELLOW Normal Yellow PH,Urine RFX 6.0 units Normal 5.0-9.0 Specific [place] Ur Auto RFX 1.021 Normal 1.002-1.035 Protein, [...] /LPF Normal 0-1 Reflex Urine Culture 09/26/2020 [facility] Reflex Urine Culture FULL REPORT IN L <SEE NOTE> Normal 5 Laboratory test finding 09/05/2020 [facility] iSTAT B-hCG < 5.0 Normal 6 Istat Chem8+ Panel 09/05/2020 [facility] iSTAT HCT 36.0 % Low 38.0-51.0 iSTAT Glucose 88 mg/dL Normal 70-105 iSTAT Sodium 139 mEq/L Normal 136-145 iSTAT Potassium 4.0 mEq/L Normal 3.5-5.1 iSTAT CA++ 4.8 mg/dL Normal 4.5-5.3 iSTAT Chloride 103 mEq/L Normal 98-109 iSTAT Co2 26.0 MM/L Normal 23.0-27.0 iSTAT BUN 12 mg/dL Normal 8-26 iSTAT Creatinine 0.6 mg/dL Normal 0.6-1.3 Istat Chem8+ Panel 09/05/2020 [facility] iSTAT HCT 39.0 % Normal 38.0-51.0 iSTAT Glucose 119 mg/dL High 70-105 iSTAT Sodium 139 mEq/L Normal 136-145 iSTAT Potassium 4.0 mEq/L Normal 3.5-5.1 iSTAT CA++ 5.0 mg/dL Normal 4.5-5.3 iSTAT Chloride 100 mEq/L Normal 98-109 iSTAT Co2 25.0 MM/L Normal 23.0-27.0 iSTAT BUN 13 mg/dL Normal 8- iSTAT Creatinine 0.6 mg/dL Normal 0.6-1.3 Laboratory test finding 09/05/2020 [facility] iSTAT B-hCG < 5.0 Normal 7 MMR 07/31/2020 [facility] [phone] Rubella IgG Ab,S 1.49 index Immune >0.99 8 Rubeola IgG Ab,S 32.2 AU/mL Immune >16.4 9 Mumps IgG,S <9.0 AU/mL Abnormal Immune >10.9 10 Laboratory test finding 07/26/2020 [facility], Urine, Routine SEE NOTE 11 Enhanced PDF Report [id number] PDF IMAGE OFF Ua Routine 07/26/2020 Done in Doctor's Off ice Urine Specific [place] 1.030 Ua PH Test Strip 7.0 Ua Color wanda Ua Appearance cloudy Ua WBC + Ua Protein + Urine Glucose QL - Urine Ketones QL Test Strip + Urine Bilirubin TTL QL T-Strip - Urine Urobilinogen QN TS - Urine Nitrite QL TS - Ua Occult Blood +++ Xray 07/26/2020 [facility] [address] [place] [address] [phone] US Renal/Pelvic (Bladder) <pending> CBC W/Auto Diff 07/25/2020 [facility] [phone] White Blood Count 8.64 10^3/uL Normal 4.00-10.50 [...] Lymph % (Auto) 25.8 % Normal 20.0-51.0 Otero % (Auto) 7.8 % Normal 2.0-15.0 Eos % (Auto) 1.5 % Normal 0.0-11.0 Baso % (Auto) 0.2 % Normal 0.0-2.0 Ig % (Auto) 0.6 % 1.00-5.00 Ig # (Auto) 0.1 10^3/uL <0.5 Gran # (Auto) 5.54 10^3/uL Normal 1.50-6.50 Lymph # (Auto) 2.2 k/uL Normal 1.0-5.0 Otero # (Auto) 0.67 k/uL Normal 0.20-1.50 Eos # (Auto) 0.13 10^3/uL Normal 0.00-1.10 Baso # (Auto) 0.02 10^3/uL Normal 0.00-0.20 Comprehensive Metabolic Panel 07/25/2020 [facility] [phone] Sodium 138 mEq/L Normal 135-145 Potassium 4.4 mEq/L Normal 3.5-5.3 Chloride 104 mEq/L Normal 94-110 Carbon Dioxide 28 mEq/L Normal 22-33 Anion Gap 10 Normal 5-16 Blood Urea Nitro 14 mg/dL Normal 7-25 Creatinine 0.8 mg/dL Normal 0.6-1.4 GFR 81.2 mL/min 12 BUN/Creat Ratio 17 Normal 8-36 Glucose 92 mg/dL Normal 70-100 CA 9.1 mg/dL Normal 8.7-10.5 Bilirubin,Total 0.3 mg/dL Normal 0.1-1.3 Ast 57 U/L High 5-40 Alt 53 U/L High 5-48 Alkaline Phosphatase 117 U/L Normal 40-140 Total Protein 6.8 g/dL Normal 5.9-8.3 Albumin 4.6 g/dL Normal 3.0-5.1 Globulin 2.2 g/dL Normal 1.5-3.5 Alb/Glob Ratio 2.1 g/dL Normal 1.0-3.0 Laboratory test finding 07/25/2020 [facility] [phone] HCG Qualitative Specimen URINE HCG Qualitative,Urine <pending> *HCG Qualitative Urine NEGATIVE 13 HCG Result,U <pending> Urinalysis 07/25/2020 [facility] [phone] Color,Ur WANDA Abnormal Yellow Appearance,Ur CLOUDY Abnormal Clear PH,Ur 6.0 5.0-8.0 Specific [place],Ur 1.019 Normal 1.002-1.035 Protein,Ur 100 mg/dL Abnormal Negative Glucose, Ur NEGATIVE mg/dL Negative Ketones,Ur NEGATIVE mg/dL Negative Occult Blood,Ur LARGE Abnormal Negative Nitrate,Ur NEGATIVE Negative Leukocyte Esterase ,Ur TRACE Abnormal Negative Bilirubin,Ur NEGATIVE Negative Urobilinogen,Ur 0.2-1.0 EUMG/DL Neg-0-1.0 RBC,Ur >100 PERHPF Abnormal 0-2 Urine Epith MANY PER/LPF Few-Mod Mucus,Ur FEW PERHPF None Seen CBC W/Auto Diff 05/11/2020 [facility] [phone] White Blood Count 6.20 10^3/uL Normal 4.00-10.50 [...] Lymph % (Auto) 28.2 % Normal 20.0-51.0 Otero % (Auto) 6.1 % Normal 2.0-15.0 Eos % (Auto) 1.8 % Normal 0.0-11.0 Baso % (Auto) 0.2 % Normal 0.0-2.0 Ig % (Auto) 0.5 % 1.00-5.00 Ig # (Auto) 0.0 10^3/uL <0.5 Gran # (Auto) 3.92 10^3/uL Normal 1.50-6.50 Lymph # (Auto) 1.8 k/uL Normal 1.0-5.0 Otero # (Auto) 0.38 k/uL Normal 0.20-1.50 Eos # (Auto) 0.11 10^3/uL Normal 0.00-1.10 Baso # (Auto) 0.01 10^3/uL Normal 0.00-0.20 Laboratory test finding 05/11/2020 [facility] [phone] HCG Qualitative Specimen SERUM *HCG Qualitative Serum NEGATIVE 14 Comprehensive Metabolic Panel 05/11/2020 [facility] [phone] Sodium 139 mEq/L Normal 135-145 Potassium 4.1 mEq/L Normal 3.5-5.3 Chloride 106 mEq/L Normal 94-110 Carbon Dioxide 27 mEq/L Normal 22-33 Anion Gap 10 Normal 5-16 Blood Urea Nitro 12 mg/dL Normal 7-25 Creatinine 0.8 mg/dL Normal 0.6-1.4 GFR 81.2 mL/min 15 BUN/Creat Ratio 15 Normal 8-36 Glucose 131 mg/dL High 70-100 CA 8.7 mg/dL Normal 8.7-10.5 Bilirubin,Total 0.3 mg/dL Normal 0.1-1.3 Ast 51 U/L High 5-40 Alt 65 U/L High 5-48 Alkaline Phosphatase 120 U/L Normal 40-140 Total Protein 6.4 g/dL Normal 5.9-8.3 Albumin 4.4 g/dL Normal 3.0-5.1 Globulin 2.0 g/dL Normal 1.5-3.5 Alb/Glob Ratio 2.2 g/dL Normal 1.0-3.0 Urinalysis 05/11/2020 [facility] [phone] Color,Ur YELLOW Yellow Appearance,Ur CLOUDY Abnormal Clear PH,Ur 5.0 5.0-8.0 Specific [place],Ur 1.020 Normal 1.002-1.035 Protein,Ur 30 mg/dL Abnormal [...] PERHPF None Seen Laboratory test finding 05/11/2020 [facility] [phone] Urine Culture <SEE NOTE> 16 1 NO URINE RECEIVED Patient informed to return with specimen. 2 Stage G2 - Mildly decreased kidney function The GFR is an estimate of the Glomerular Filtration Rate. It is an aid to assess a patient's renal function. It is not a conclusive diagnosis of kidney disease. GFR normal is >=90 The MDRD GFR calculation is considered valid between the ages of 18 and 75 years only. 3 THERAPUTIC HUMAN INR VALUES INDICATIONS NORMAL RANGES PROPHYLAXIS/TREATMENT OF: VENOUS THROMBOSIS 2.0-3.0 PULMONARY EMBOLISM 2.0-3.0 PREVENTION OF SYSTEMIC EMBOLISM FROM: TISSUE HEART VALVES 2.0-3.0 ACUTE MYOCARDIAL INFARCTION 2.0-3.0 VALVULAR HEART DISEASE 2.0-3.0 ATRIAL FIBRILLATION 2.0-3.0 MECHANICAL VALVES(HIGH RISK) 2.5-3.5 RECURRENT MYOCARDIAL INFARCTION 2.5-3.5 4 Units are mL/min/1.73 m2 Chronic Kidney Disease Staging per NKF: Stage I & II GFR >=60 Normal to Mildly Decreased Stage III GFR 30-59 Moderately Decreased Stage IV GFR 15-29 Severely Decreased Stage V GFR <15 Very Little GFR Left ESRD GFR <15 on ROTARY DRIER FEEDER 5 FULL REPORT IN LAB NOTES (Alicia Mina and Edgar). SPECIMEN APPEARS CONTAMINATED 6 QUANTITATIVE RESULT QUALITATIVE INTERPRETATION <5.0 IU/L NEGATIVE 5.0 - 25.0 IU/L INDETER MINATE >25.0 IU/L POSITIVE 7 QUANTITATIVE RESULT QUALITATIVE INTERPRETATION <5.0 IU/L NEGATIVE 5.0 - 25.0 IU/L INDETER MINATE >25.0 IU/L POSITIVE 8 Non-immune <0.90 Equivocal 0.90 - 0.99 Immune >0.99 9 Negative <13.5 Equivocal 13.5 - 16.4 Positive >16.4 Presence of antibodies to Rubeola is presumptive evidence of immunity except when acute infection is suspected. 10 Negative <9.0 Equivocal 9.0 - 10.9 Positive >10.9 A positive result generally indicates past exposure to Mumps virus or previous vaccination. Performed at: [facility] [id number] Filler Blender: Jimena Jay MD, Phone: [phone] CULTURE, URINE, ROUTINE Micro Number: [id number] Test Status: Final Specimen Source: URINE Specimen Quality: Adequate Result: Growth of mixed elizabeth was isolated, suggesting probable contamination. No further testing will be performed. If clinically indicated, recollection using a method to minimize contamination, with prompt transfer to Urine Culture Transport Tube, is recommended. 12 Stage G2 - Mildly decreased kidney function The GFR is an estimate of the Glomerular Filtration Rate. It is an aid to assess a patient's renal function. It is not a conclusive diagnosis of kidney disease. GFR normal is >=90 The MDRD GFR calculation is considered valid between the ages of 18 and 75 years only. 13 Reference range is Negative To ensure best sensitivity, first morning void is recommended. Dilute, low specific gravity urine may give a falsely negative result. If is suspected, repeat testing with a new specimen 48-72 hours later. 14 Reference range is Negative "Extreme" early may have low levels of HCG present. If is suspected, repeat testing with a new specimen in 48-72 hours 15 Stage G2 - Mildly decreased kidney function The GFR is an estimate of the Glomerular Filtration Rate. It is an aid to assess a patient's renal function. It is not a conclusive diagnosis of kidney disease. GFR normal is >=90 The MDRD GFR calculation is considered valid between the ages of 18 and 75 years only. 16 Run: 05/12/20 1030 INTERFACED REPORT Name: EmirIsidro Age/Sex: 34/F Location: ED Acct: [id number] Unit: [id number] Status: [facility] Room/Bed: Re05/11/20 Disch: Att Dr: Kyree John MD Specimen #: [id number] Ordered : 05/11/20 Collected : 05/11/20 By: ARLYN Received: 05/11/20 By: DELLA Source: URINE CC Specimen Description: Procedure Result COLONY COUNT Final COLONY COUNT GREATER THAN 100,000 CFU/ML URINE CULTURE Final PRESENCE OF 3 OR MORE ORGANISMS-SPECIMEN MAY BE CONTAMINATED SUGGEST REPEAT END OF REPORT Procedures Date Code Description Status 10/18/202046504 Office/Outpatient Established Lo w MDM 20-29 Min Completed 09/13/2020 04069 Preventive Visit Est 18-39 Yrs C ompleted 09/13/2020 Office/Outpatient Established Mo d MDM 30-39 Min Completed 09/13/2020 14727 Visual Screening Test Completed 09/13/2020 78147 Electrocardiogram Complete Compl eted 09/13/2020 76703 Screening Hearing Test Completed 08/10/2020 38537 Office/Outpatient Established Lo w MDM 20-29 Min Completed 07/26/2020 74920 Office/Outpatient Established Mo d MDM 30-39 Min Completed 07/26/2020 53868 Office/Outpatient Established Mo d MDM 30-39 Min Completed 06/26/202086245 Office/Outpatient Established Lo w MDM 20-29 Min Completed 06/11/2020 06816 Office/Outpatient Established Mo d MDM 30-39 Min Completed 06/04/2020 89682 Office/Outpatient Established Mo d MDM 30-39 Min Completed 06/04/2020 80731 Brief Emotional/Beha v Assessment W/ Scoring Doc Per Standard Inst Completed 06/04/2020 40729 Brief Emotional/Beha v Assessment W/ Scoring Doc Per Standard Inst Completed 06/04/2020 77204 Admin Of Inj (Therapeutic Phroph ylactic Or Diagnostic Subq Inj Completed 06/04/202049003 Office/Outpatient Established Mo d MDM 30-39 Min Completed 05/28/2020 25807 Office/Outpatient Established Mo d MDM 30-39 Min Completed 05/28/2020 62532 Office/Outpatient Established Mo d MDM 30-39 Min Completed 05/28/2020 23225 Brief Emotional/Beha v Assessment W/ Scoring Doc Per Standard Inst Completed 05/25/2020 03570 Office/Outpatient Established Lo w MDM 20-29 Min Completed 04/30/202070917 Office/Outpatient Established Lo w MDM 20-29 Min Completed 04/30/202080734 Office/Outpatient Established Lo w MDM 20-29 Min Completed Medical Devices Description No Information Available Encounters Type Date Location Provider Dx Diagnosis Office Visit 10/18/2020 7:00p [facility]- Lawanda Villarreal D.O. M54.5 Low back pain R53.83 Other fatigue Office Visit 09/13/2020 9:00a [facility]- Lawanda Villarreal D.O. Z00.00 Encntr for general adult med ical exam w/o abnormal findings E66.01 Morbid (severe) obesity due to excess calories Z23 Encounter for immunization Z68.43 Body mass index [BMI] 50.0-5 9.9, adult R53.83 Other fatigue Office Visit 08/10/2020 6:30p [facility]- Lawanda Villarreal D.O. D50.9 Iron deficiency anemia, unsp ecified M54.5 Low back pain [facility] N[facility].0 Urinary tract infection, sit e not specified R31.0 Gross hematuria M54.5 Low back pain J31.0 Chronic rhinitis Office Visit 06/26/2020 11:00a [facility] Kemal Villarreal D.O. K12.2 Cellulitis and abscess of mo [facility] M54.17 Radiculopathy, lumbosacral r egion Office Visit 06/11/2020 11:30a [facility] Kemal Villarreal D.O. 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 K05.00 Acute gingivitis, plaque ind uced K08.89 Other specified disorders of teeth and supporting structures Office Visit 04/30/2020 3:15p [facility] Heather Martinez PA-C M54.17 Radiculopathy, lumbosacral r egion Assessments Date Code Description Provider 10/18/2020 M54.5 Low back pain Michelle Verduzco 10/18/2020 R53.83 Other fatigue Michelle Verduzco OMark [...] VerduzcoOMark 06/26/2020 M54.17 Radiculopathy, lumbosacral regio n Michelle VerduzcoOMark 06/11/2020 M54.17 Radiculopathy, lumbosacral regio n Kemal Villarreal D.O. 06/11/2020 E66.01 Morbid (severe) obesity due to e xcess calories Kemal Villarreal D.O. 06/11/2020 K04.7 Periapical abscess without sinus Kemal Villarreal D.O. 06/11/2020 Z68.43 Body mass index [BMI] 50.0-59.9, adult Isaac Verduzco.O. 06/04/2020 K04.7 Periapical abscess without sinus Kemal Villarreal D.O. 06/04/2020 S02.82xA Fracture of other sp ecified skull and facial bones, left side, initial encounter for closed fracture Heather Martinez PA-C 06/04/2020 E66.2 Morbid (severe) obesity with sri eolar hypoventilation Isaac Verduzco.O. 06/04/2020 K04.7 Periapical abscess without sinus Heather Martinez PA-C 06/04/2020 J31.0 Chronic rhinitis Isaac Verduzco .OMark 06/04/2020 Z13.89 Encounter for screening for othe r disorder Heather Martinez PA-C 06/04/2020 Z13.31 Encounter for screening for depr ession Isaac Verduzco.O. 06/04/2020 E66.2 Morbid (severe) obesity with sri eolar hypoventilation Heather Martinez PA-C 06/04/2020 S02.82xA Fracture of other sp ecified skull and facial bones, left side, initial encounter for closed fracture Isaac Verduzco.O. 06/04/2020 J31.0 Chronic rhinitis Heather Martinez PA-C 06/04/2020 Z68.43 Body mass index [BMI] 50.0-59.9, adult Isaac Verduzco.O. 06/04/2020 Z68.43 Body mass index [BMI] 50.0-59.9, adult Heather Martinez PA-C 05/28/2020 E66.01 Morbid (severe) obesity due to e xcess calories Kemal Villarreal D.O. 05/28/2020 Z13.89 Encounter for screening for othe [...] th and supporting structures Kemal Villarreal D.O. 04/30/2020 M54.17 Radiculopathy, lumbosacral regio n Kemal Villarreal D.O. 04/30/2020 M54.17 Radiculopathy, lumbosacral regio n Heather Martinez PA-C Plan of Treatment Future Appointment(s):* 01/17/2021 8:00 am - Kemal Villarreal D.O. at [facility] 10/18/2020 - Kemal Villarreal D.O.* M54.5 Low back pain* New Medication:* Tizanidine HCL 4 mg - one by mouth every night prn * R53.83 Other fatigue Goals 10/18/2020 - Kemal Villarreal D.O.* M54.5 Low back pain* Again, discussed good back hygiene. Again, discussed the exercises which will strengthen the back muscles. * R53.83 Other fatigue* Once again, discussed the steps to take to improve this condition. The patient was encouraged to perform activities at a comfortable pace. The patient was advised to eat a healthy diet and to limit the intake of alcohol and caffeine, especially at nights. The patient was also encouraged to get good sleep at night. Functional Status Description No Information Available Mental Status Description No Information Available Referrals Refer to Reason for Referral Status Appt Date Jay Bush Dear Doctor, This patient i [...] patient. Kemal Villarreal D.O. 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
--- OUTSIDE RECORDS SUMMARY | 2021-01-11 19:43 | CCD | Continuity of Care Document ---
Author Author Isidro VILLARREAL D.O. Organization Unknown Address [address] [place] [address] Phone [phone] Care Team Providers Care Inspector Missile Name Role Phone Kemal Villarreal DO AUTM [phone] Jay Bush AUTM [phone] Problems Active Problems Provider Date Drug seeking [...] Code Status Date Vaccine Reaction Lot # 27616 Given 09/13/2020 MMR Virus Immunization No Reaction S [id number] Given 08/07/2020 MMR Virus Immunization No Reaction s [id number] Q2038 Given 06/03/2013 Fluzone Trivalent Immunization 57376 Given 03/16/2007 Tetanus Toxoid Vital Signs Date Vital Result Comment 11/01/2020 11:55am Body Temperature 97.3 F Weight 275.00 lb Heart Rate 86 /min BP Systolic 126 mmHg L Arm, Lrg cuff BP Diastolic 84 mmHg L Arm, Lrg cuff Respiratory Rate 16 /min Height 60 inches 5'0" BMI (Body Mass Index) 53.7 kg/m2 Tea Body Weight 100 lb O2 % BldC Oximetry 99 % Room Air Height in cm's 152.4 cm 09/13/2020 10:22am Body Temperature 98.2 F Weight 271.00 lb Heart Rate 91 /min BP Systolic 120 mmHg BP Diastolic 86 mmHg Respiratory Rate 22 /min Height 60 inches 5'0" BMI (Body Mass Index) 52.9 kg/m2 Tea Body Weight 100 lb O2 % BldC Oximetry 96 % Room Air Right Visual Acuity Distance 20/15 10:28 Am Left Visual Acuity Distance 20/15 Height in cm's 152.4 cm Results Test Acquired Date Facility Test Result H/L Range Note Xray 11/01/2020 [facility] [address] [place] [address] [phone] CR Spine Lumbosac Complete W/Bend <pending> Laboratory test finding 11/01/2020 Done in Doctor's Office Glucose Fingerstick 91 Laboratory test finding 10/30/2020 [facility] B-hCG < 5.0 Normal 1 Laboratory test finding 10/30/2020 [facility] Lipase 105 U/L Normal 73-393 Basic Metabolic Profile 10/30/2020 [facility] Glucose, Fasting 91 mg/dL Normal 70-100 [...] 8.9 mg/dL Normal 8.5-10.1 Liver Profile 10/30/2020 [facility] Ast/Sgot 40 U/L High 7-37 Alt/SGPT 58 U/L Normal 12-78 Alkaline Phosphatase 112 U/L Normal 45-117 Bilirubin,Total 0.3 mg/dL Normal 0.2-1.0 Bilirubin,Direct 0.1 mg/dL Normal 0.0-0.2 Total Protein 7.4 GM/DL Normal 6.4-8.2 Albumin 3.6 GM/DL Normal 3.2-5.2 Albumin/Globulin Ratio 0.9 Low 1.2-2.2 CBC With Differential 10/30/2020 [facility] White Blood Count 10.1 10 High [...] 36.0-66.0 Lymph % 23.8 % Low 24.0-44.0 [place] % 5.9 % Normal 2.0-8.0 Eos % 0.8 % Normal 0.0-3.0 Baso % 0.4 % Normal 0.0-1.0 Immature Granulocyte % 0.8 % Normal 0-3.0 Nucleated Red Blood Cell % 0.0 % Normal 0-0 Neutrophils # 6.9 10 Normal 1.5-8.5 Lymph # 2.4 10 Normal 1.5-5.0 [place] # 0.6 10 Normal 0.0-0.8 Eos # 0.1 10 Normal 0.0-0.5 Baso # 0.0 10 Normal 0.0-0.2 Basic Metabolic Panel 10/06/2020 [facility] [phone] Sodium 139 mEq/L Normal 135-145 Potassium 3.8 mEq/L Normal 3.5-5.3 Chloride 108 mEq/L Normal 94-110 Carbon Dioxide 24 mEq/L Normal 22-33 Anion Gap 11 Normal 5-16 Blood Urea Nitro 14 mg/dL Normal 7-25 Creatinine 0.8 mg/dL Normal 0.6-1.4 GFR 81.2 mL/min 3 BUN/Creat Ratio 17 Normal 8-36 Glucose 82 mg/dL Normal 70-100 CA 9.6 mg/dL Normal 8.7-10.5 Laboratory test finding 10/06/2020 [facility] [phone] Glycosylated Hgba1c 4.9 % Normal 4.1-6.5 Laboratory test finding 10/06/2020 [facility] [phone] No Urine Received From Patient NO URINE RECEIVE <SEE N OTE> 4 CBC With Differential 09/26/2020 [facility] White Blood Count 6.6 10 Normal [...] 36.0-66.0 Lymph % 30.3 % Normal 24.0-44.0 [place] % 7.5 % Normal 2.0-8.0 Eos % 1.2 % Normal 0.0-3.0 Baso % 0.5 % Normal 0.0-1.0 Immature Granulocyte % 0.8 % Normal 0-3.0 Nucleated Red Blood Cell % 0.0 % Normal 0-0 Neutrophils # 4.0 10 Normal 1.5-8.5 Lymph # 2.0 10 Normal 1.5-5.0 [place] # 0.5 10 Normal 0.0-0.8 Eos # 0.1 10 Normal 0.0-0.5 Baso # 0.0 10 Normal 0.0-0.2 Prothrombin Time/Inr 09/26/2020 [facility] Prothrombin Time 12.3 seconds Normal 12.5-14.3 Inr 0.90 Normal 5 Laboratory test finding 09/26/2020 [facility] Partial Thromboplastin Time 23.5 seconds Low 24.2-38.5 Liver Profile 09/26/2020 [facility] Ast/Sgot 56 U/L High 7-37 Alt/SGPT 65 U/L Normal 12-78 Alkaline Phosphatase 110 U/L Normal 45-117 Bilirubin,Total 0.3 mg/dL Normal 0.2-1.0 Bilirubin,Direct < 0.1 mg/dL Normal 0.0-0.2 Total Protein 7.2 GM/DL Normal 6.4-8.2 Albumin 3.6 GM/DL Normal 3.2-5.2 Albumin/Globulin Ratio 1.0 Low 1.2-2.2 Basic Metabolic Profile 09/26/2020 [facility] Glucose, Fasting 101 mg/dL High 70-100 [...] mg/dL Normal 8.5-10.1 Laboratory test finding 09/26/2020 [facility] Lipase 100 U/L Normal 73-393 HCG Serum Qualitative NEGATIVE Normal Negative Ua W/ Reflex To Culture 09/26/2020 [facility] Appearance, Urine RFX CLOUDY High Clear Color, Urine RFX YELLOW Normal Yellow PH,Urine RFX 6.0 units Normal 5.0-9.0 Specific [place] Ur Auto RFX 1.021 Normal 1.002-1.035 Protein, [...] /LPF Normal 0-1 Reflex Urine Culture 09/26/2020 [facility] Reflex Urine Culture FULL REPORT IN L <SEE NOTE> Normal 7 Istat Chem8+ Panel 09/05/2020 [facility] iSTAT HCT 39.0 % Normal 38.0-51.0 iSTAT Glucose 119 mg/dL High 70-105 iSTAT Sodium 139 mEq/L Normal 136-145 iSTAT Potassium 4.0 mEq/L Normal 3.5-5.1 iSTAT CA++ 5.0 mg/dL Normal 4.5-5.3 iSTAT Chloride 100 mEq/L Normal 98-109 iSTAT Co2 25.0 MM/L Normal 23.0-27.0 iSTAT BUN 13 mg/dL Normal 8-26 iSTAT Creatinine 0.6 mg/dL Normal 0.6-1.3 Istat Chem8+ Panel 09/05/2020 formerly [facility] iSTAT HCT 36.0 % Low 38.0-51.0 iSTAT Glucose 88 mg/dL Normal 70-105 iSTAT Sodium 139 mEq/L Normal 136-145 iSTAT Potassium 4.0 mEq/L Normal 3.5-5.1 iSTAT CA++ 4.8 mg/dL Normal 4.5-5.3 iSTAT Chloride 103 mEq/L Normal 98-109 iSTAT Co2 26.0 MM/L Normal 23.0-27.0 iSTAT BUN 12 mg/dL Normal 8-26 iSTAT Creatinine 0.6 mg/dL Normal 0.6-1.3 Laboratory test finding 09/05/2020 [facility] iSTAT B-hCG < 5.0 Normal 8 Laboratory test finding 09/05/2020 [facility] iSTAT B-hCG < 5.0 Normal 9 MMR 07/31/2020 [facility] [phone] Rubella IgG Ab,S 1.49 index Immune >0.99 10 Rubeola IgG Ab,S 32.2 AU/mL Immune >16.4 11 Mumps IgG,S <9.0 AU/mL Abnormal Immune >10.9 12 Laboratory test finding 07/26/2020 [facility] Culture, Urine, Routine SEE NOTE 13 Enhanced PDF Report [id number] PDF IMAGE OFF Ua Routine 07/26/2020 Done in Doctor's Off ice Urine Specific [place] 1.030 Ua PH Test Strip 7.0 Ua Color wanda Ua Appearance cloudy Ua WBC + Ua Protein + Urine Glucose QL - Urine Ketones QL Test Strip + Urine Bilirubin TTL QL T-Strip - Urine Urobilinogen QN TS - Urine Nitrite QL TS - Ua Occult Blood +++ Xray 07/26/2020 [facility] [address] [place] [address] [phone] US Renal/Pelvic (Bladder) <pending> CBC W/Auto Diff 07/25/2020 [facility] [phone] White Blood Count 8.64 10^3/uL Normal 4.00-10.50 [...] Lymph % (Auto) 25.8 % Normal 20.0-51.0 [place] % (Auto) 7.8 % Normal 2.0-15.0 Eos % (Auto) 1.5 % Normal 0.0-11.0 Baso % (Auto) 0.2 % Normal 0.0-2.0 Ig % (Auto) 0.6 % 1.00-5.00 Ig # (Auto) 0.1 10^3/uL <0.5 Gran # (Auto) 5.54 10^3/uL Normal 1.50-6.50 Lymph # (Auto) 2.2 k/uL Normal 1.0-5.0 [place] # (Auto) 0.67 k/uL Normal 0.20-1.50 Eos # (Auto) 0.13 10^3/uL Normal 0.00-1.10 Baso # (Auto) 0.02 10^3/uL Normal 0.00-0.20 Comprehensive Metabolic Panel 07/25/2020 [facility] [phone] Sodium 138 mEq/L Normal 135-145 Potassium 4.4 [...] g/dL Normal 1.0-3.0 Laboratory test finding 07/25/2020 [facility] [phone] HCG Qualitative Specimen URINE HCG Qualitative,Urine <pending> *HCG Qualitative Urine NEGATIVE 15 HCG Result,U <pending> Urinalysis 07/25/2020 [facility] [phone] Color,Ur WANDA Abnormal Yellow Appearance,Ur CLOUDY Abnormal Clear PH,Ur 6.0 5.0-8.0 Specific [place],Ur 1.019 Normal 1.002-1.035 Protein,Ur 100 mg/dL Abnormal Negative Glucose, Ur NEGATIVE mg/dL Negative Ketones,Ur NEGATIVE mg/dL Negative Occult Blood,Ur LARGE Abnormal Negative Nitrate,Ur NEGATIVE Negative Leukocyte Esterase ,Ur TRACE Abnormal Negative Bilirubin,Ur NEGATIVE Negative Urobilinogen,Ur 0.2-1.0 EUMG/DL Neg-0-1.0 RBC,Ur >100 PERHPF Abnormal 0-2 Urine Epith MANY PER/LPF Few-Mod Mucus,Ur FEW PERHPF None Seen CBC W/Auto Diff 05/11/2020 [facility] [phone] White Blood Count 6.20 10^3/uL Normal 4.00-10.50 [...] Lymph % (Auto) 28.2 % Normal 20.0-51.0 [place] % (Auto) 6.1 % Normal 2.0-15.0 Eos % (Auto) 1.8 % Normal 0.0-11.0 Baso % (Auto) 0.2 % Normal 0.0-2.0 Ig % (Auto) 0.5 % 1.00-5.00 Ig # (Auto) 0.0 10^3/uL <0.5 Gran # (Auto) 3.92 10^3/uL Normal 1.50-6.50 Lymph # (Auto) 1.8 k/uL Normal 1.0-5.0 [place] # (Auto) 0.38 k/uL Normal 0.20-1.50 Eos # (Auto) 0.11 10^3/uL Normal 0.00-1.10 Baso # (Auto) 0.01 10^3/uL Normal 0.00-0.20 Laboratory test finding 05/11/2020 [facility] [phone] HCG Qualitative Specimen SERUM *HCG Qualitative Serum NEGATIVE 16 Comprehensive Metabolic Panel 05/11/2020 [facility] [phone] Sodium 139 mEq/L Normal 135-145 Potassium 4.1 [...] Ratio 2.2 g/dL Normal 1.0-3.0 Urinalysis 05/11/2020 [facility] [phone] Color,Ur YELLOW Yellow Appearance,Ur CLOUDY Abnormal Clear PH,Ur 5.0 5.0-8.0 Specific [place],Ur 1.020 Normal 1.002-1.035 Protein,Ur 30 mg/dL Abnormal [...] PERHPF None Seen Laboratory test finding 05/11/2020 [facility] [phone] Urine Culture <SEE NOTE> 18 1 QUANTITATIVE [...] Little GFR Left ESRD GFR <15 on SOCIAL SERVICE TECHNICIAN 3 Stage G2 - Mildly decreased [...] Little GFR Left ESRD GFR <15 on SOCIAL SERVICE TECHNICIAN 7 FULL REPORT IN LAB NOTES (eC [...] Mumps virus or previous vaccination. Performed at: [facility] [id number] Warehouse Shipper: Jimena Jay MD, Phone: [phone] CULTURE, URINE, ROUTINE Micro Number: [id number] Test Status: Final Specimen Source: URINE Specimen [...] Isidro Field Age/Sex: 34/F Location: ED Acct: [id number] Unit: [id number] Status: [facility] Room/Bed: Re05/11/20 Disch: Att Dr: Kyree John MD Specimen #: [id number] Ordered : 05/11/20 Collected : 05/11/20 By: [...] Lo w MDM 20-29 Min Completed 09/13/2020 12898 Preventive Visit Est 18-39 Yrs C ompleted 09/13/2020 Office/Outpatient Established Mo d MDM 30-39 Min Completed 09/13/2020 45800 Visual Screening Test Completed 09/13/2020 67334 Electrocardiogram Complete Compl eted 09/13/2020 84112 Screening Hearing Test Completed 08/10/2020 Office/Outpatient Established Lo w MDM 20-29 Min Completed 07/26/2020 Office/Outpatient Established Mo d MDM 30-39 Min Completed 07/26/2020 Office/Outpatient Established Mo d MDM 30-39 Min Completed 06/26/2020 Office/Outpatient Established Lo w MDM 20-29 Min Completed 06/11/2020 75419 Office/Outpatient Established Mo d MDM 30-39 Min Completed 06/04/2020 23632 Office/Outpatient Established Mo d MDM 30-39 Min Completed 06/04/2020 60144 Office/Outpatient Established Mo d MDM 30-39 Min Completed 06/04/2020 51924 Admin Of Inj (Therapeutic Phroph ylactic Or Diagnostic Subq Inj Completed 06/04/2020 62184 Brief Emotional/Beha v Assessment W/ Scoring Doc Per Standard Inst Completed 06/04/2020 17109 Brief Emotional/Beha v Assessment W/ Scoring Doc Per Standard Inst Completed 05/28/2020 74778 Office/Outpatient Established Mo d MDM 30-39 Min Completed 05/28/2020 26600 Office/Outpatient Established Mo d MDM 30-39 Min Completed 05/28/2020 37630 Brief Emotional/Beha v Assessment W/ Scoring Doc Per Standard Inst Completed 05/25/2020 03682 Office/Outpatient Established Lo w MDM 20-29 Min Completed Medical Devices Description No Information Available Encounters Type Date Location Provider Dx Diagnosis Office Visit 11/01/2020 11:50a [facility]- Lawanda Villarreal D.O. E16.2 Hypoglycemia, unspecified M54.5 Low back pain E66.01 Morbid (severe) obesity due to excess calories Z68.43 Body mass index [BMI] 50.0-5 9.9, adult Office Visit 10/18/2020 7:00p [facility]- Lawanda Villarreal D.O. M54.5 Low back pain R53.83 Other fatigue Office Visit 09/13/2020 9:00a [facility]- Isaac Swanson.Claudine Z00.00 Encntr for general adult med ical exam w/o abnormal findings E66.01 Morbid (severe) obesity due to excess calories Z23 Encounter for immunization Z68.43 Body mass index [BMI] 50.0-5 9.9, adult R53.83 Other fatigue Office Visit 08/10/2020 6:30p [facility]- Lawanda Villarreal D.O. D50.9 Iron deficiency anemia, unsp ecified M54.5 Low back pain Office Visit 07/26/2020 2:30p [facility]- Bvkamala Martinez PA-C N39.0 Urinary tract infection, sit e not specified R31.0 Gross hematuria M54.5 Low back pain J31.0 Chronic rhinitis Office Visit 06/26/2020 11:00a [facility] Kemal Villarreal D.O. K12.2 Cellulitis and abscess of mo [facility] M54.17 Radiculopathy, lumbosacral r egion Office Visit 06/11/2020 11:30a [facility] Kemal Villarreal D.O. 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 K05.00 Acute gingivitis, plaque [...] Michelle VerduzcoO. 10/18/2020 M54.5 Low back pain Isaac Verduzco. OMark 10/18/2020 R53.83 Other fatigue Isaac Verduzco. OMark 09/13/2020 Z00.00 Encounter for genera l adult medical examination without abnormal findings Isaac Verduzco.O. 09/13/2020 E66.01 Morbid (severe) obesity due to e xcess calories Isaac Verduzco.OMark 09/13/2020 Z23 Encounter for immunization Michelle VerduzcoOMark 09/13/2020 Z68.43 Body mass index [BMI] 50.0-59.9, adult Michelle VerduzcoOMark 09/13/2020 R53.83 Other fatigue Isaac Verduzco. OMark [...] D.O. 06/26/2020 M54.17 Radiculopathy, lumbosacral regio n Isaac Verduzco.Claudine 06/11/2020 M54.17 Radiculopathy, lumbosacral regio n Isaac Verduzco.OMark 06/11/2020 E66.01 Morbid (severe) obesity due to e xcess calories Kemal Villarreal D.O. 06/11/2020 K04.7 Periapical abscess without sinus Michelle VerduzcoOMark 06/11/2020 Z68.43 Body mass index [BMI] 50.0-59.9, adult Kemal Villarreal D.O. 06/04/2020 K04.7 Periapical abscess without sinus Iasac Verduzco.Claudine 06/04/2020 S02.82xA Fracture of other sp ecified skull and facial bones, left side, initial encounter for closed fracture Hetaher Martinez PA-C 06/04/2020 E66.2 Morbid (severe) obesity with sri eolar hypoventilation Kemal Villarreal D.O. 06/04/2020 K04.7 Periapical abscess without sinus Heather Martinez PA-C 06/04/2020 J31.0 Chronic rhinitis Isaac Verduzco 06/04/2020 Z13.89 Encounter for screening for othe r disorder Heather Martinez PA-C 06/04/2020 Z13.31 Encounter for screening for depr ession Kemal Villarreal D.O. 06/04/2020 E66.2 Morbid (severe) obesity with sri eolar hypoventilation Heather Martinez PA-C 06/04/2020 S02.82xA Fracture of other sp ecified skull and facial bones, left side, initial encounter for closed fracture Kemal Villarreal D.O. 06/04/2020 J31.0 Chronic rhinitis Heather Martinez PA-C 06/04/2020 Z68.43 Body mass index [BMI] 50.0-59.9, adult Kemal Villarreal D.O. 06/04/2020 Z68.43 Body mass index [BMI] 50.0-59.9, [...] 9:20 am - Heather Martinez PA-C at [facility] * 01/17/2021 8:00 am - Kemal Villarreal D.O. at [facility] Functional Status Description No Information Available Mental Status Description No Information Available Referrals Refer to Reason for Referral Status Appt Date [facility] Dear Doctor: To whom this m ay concern: I am referring this patient due to low back pain. With this referral you will also recieve the followin. Problem List; 2. Medication List; 3. Allergy List; 4. Last labs; 5. Last Progress Note. If you do not recieve the above, please contact our Electoral Officer. As always, we thank you for the great service you provide to our patients. Sincerely, Kemal Villarreal DO Created [address] [place] [id number] [phone] Jay Bush Dear Doctor, This patient i [...] patient. Kemal Villarreal D.O. [facility] Pediatric Psychologist Closed [facility] [place] [address] [phone]
--- OUTSIDE RECORDS SUMMARY | 2021-01-11 19:44 | CCD | Continuity of Care Document ---
Author Author Isidro VILLARREAL D.O. Organization Unknown Address [address] [place] [address] Phone [phone] Care Team Providers Care Brick Carrier Name Role Phone Kemal Villarreal DO AUTM [phone] Jay Bush AUTM [phone] Problems Active Problems Provider Date H/O: pulmonary embolus Kemal Villarreal D.O. Onset: [...] SIG Qnty Indications Ordering Provide r Date Cetirizine HCL 10mg Tablets 1 by mouth every day 30tabs J31.0 Kemal Villarreal D.O. 07/26/2020 Methocarbamol 500mg Tablets take 1 tablet by mouth nightly as needed 30tabs M54.17 Kemal Villarreal D.O. Lovenox 120mg/0.8ML Solution inject 0.8 milliliters sc [...] 12 hours for ten days 20tabs K04.7 Kemal Villarreal D.O. 0 06/04/2020 - 06/26/2020 Clindamycin HCL 150mg [...] Code Status Date Vaccine Reaction Lot # 92516 Given 09/13/2020 MMR Virus Immunization No Reaction S [id number] 52216 Given 08/07/2020 MMR Virus Immunization No Reaction s [id number] Q2038 Given 06/03/2013 Fluzone Trivalent Immunization 20267 Given 03/16/2007 Tetanus Toxoid Vital Signs Date Vital Result Comment 09/13/2020 10:22am Body Temperature 98.2 F Weight 271.00 lb Heart Rate 91 /min BP Systolic 120 mmHg BP Diastolic 86 mmHg Respiratory Rate 22 /min Height 60 inches 5'0" BMI (Body Mass Index) 52.9 kg/m2 [place] Body Weight 100 lb O2 % BldC [...] H/L Range Note Laboratory test finding 10/06/2020 [facility] [phone] Glycosylated Hgba1c 4.9 % Normal 4.1-6.5 Laboratory test finding 10/06/2020 [facility] [phone] No Urine Received From Patient NO URINE RECEIVE <SEE N OTE> 1 Basic Metabolic Panel 10/06/2020 [facility] [place] [facility] [phone] Sodium 139 mEq/L Normal 135-145 Potassium 3.8 mEq/L Normal 3.5-5.3 Chloride 108 mEq/L Normal 94-110 Carbon Dioxide 24 mEq/L Normal 22-33 Anion Gap 11 Normal 5-16 Blood Urea Nitro 14 mg/dL Normal 7-25 Creatinine 0.8 mg/dL Normal 0.6-1.4 GFR 81.2 mL/min 2 BUN/Creat Ratio 17 Normal 8-36 Glucose 82 mg/dL Normal 70-100 CA 9.6 mg/dL Normal 8.7-10.5 CBC With Differential 09/26/2020 [facility] White Blood Count 6.6 10 Normal 4.0-10.0 [...] 36.0-66.0 Lymph % 30.3 % Normal 24.0-44.0 [place] % 7.5 % Normal 2.0-8.0 Eos % 1.2 % Normal 0.0-3.0 Baso % 0.5 % Normal 0.0-1.0 Immature Granulocyte % 0.8 % Normal 0-3.0 Nucleated Red Blood Cell % 0.0 % Normal 0-0 Neutrophils # 4.0 10 Normal 1.5-8.5 Lymph # 2.0 10 Normal 1.5-5.0 [place] # 0.5 10 Normal 0.0-0.8 Eos # 0.1 10 Normal 0.0-0.5 Baso # 0.0 10 Normal 0.0-0.2 Prothrombin Time/Inr 09/26/2020 [facility] Prothrombin Time 12.3 seconds Normal 12.5-14.3 Inr 0.90 Normal 3 Laboratory test finding 09/26/2020 [facility] Partial Thromboplastin Time 23.5 seconds Low 24.2-38.5 Liver Profile 09/26/2020 [facility] Ast/Sgot 56 U/L High 7-37 Alt/SGPT 65 U/L Normal 12-78 Alkaline Phosphatase 110 U/L Normal 45-117 Bilirubin,Total 0.3 mg/dL Normal 0.2-1.0 Bilirubin,Direct < 0.1 mg/dL Normal 0.0-0.2 Total Protein 7.2 GM/DL Normal 6.4-8.2 Albumin 3.6 GM/DL Normal 3.2-5.2 Albumin/Globulin Ratio 1.0 Low 1.2-2.2 Basic Metabolic Profile 09/26/2020 [facility] Glucose, Fasting 101 mg/dL High 70-100 Blood [...] mg/dL Normal 8.5-10.1 Laboratory test finding 09/26/2020 [facility] Lipase 100 U/L Normal 73-393 HCG Serum Qualitative NEGATIVE Normal Negative Ua W/ Reflex To Culture 09/26/2020 [facility] Appearance, Urine RFX CLOUDY High Clear Color, Urine RFX YELLOW Normal Yellow PH,Urine RFX 6.0 units Normal 5.0-9.0 Specific [place] Ur Auto RFX 1.021 Normal 1.002-1.035 Protein, [...] /LPF Normal 0-1 Reflex Urine Culture 09/26/2020 [facility] Reflex Urine Culture FULL REPORT IN L <SEE NOTE> Normal 5 Laboratory test finding 09/05/2020 [facility] iSTAT B-hCG < 5.0 Normal 6 Istat Chem8+ Panel 09/05/2020 [facility] iSTAT HCT 36.0 % Low 38.0-51.0 iSTAT Glucose 88 mg/dL Normal 70-105 iSTAT Sodium 139 mEq/L Normal 136-145 iSTAT Potassium 4.0 mEq/L Normal 3.5-5.1 iSTAT CA++ 4.8 mg/dL Normal 4.5-5.3 iSTAT Chloride 103 mEq/L Normal 98-109 iSTAT Co2 26.0 MM/L Normal 23.0-27.0 iSTAT BUN 12 mg/dL Normal 8-26 iSTAT Creatinine 0.6 mg/dL Normal 0.6-1.3 Istat Chem8+ Panel 09/05/2020 [facility] iSTAT HCT 39.0 % Normal 38.0-51.0 iSTAT Glucose 119 mg/dL High 70-105 iSTAT Sodium 139 mEq/L Normal 136-145 iSTAT Potassium 4.0 mEq/L Normal 3.5-5.1 iSTAT CA++ 5.0 mg/dL Normal 4.5-5.3 iSTAT Chloride 100 mEq/L Normal 98-109 iSTAT Co2 25.0 MM/L Normal 23.0-27.0 iSTAT BUN 13 mg/dL Normal 8-26 iSTAT Creatinine 0.6 mg/dL Normal 0.6-1.3 Laboratory test finding 09/05/2020 [facility] iSTAT B-hCG < 5.0 Normal 7 MMR 07/31/2020 [facility] [phone] Rubella IgG Ab,S 1.49 index Immune >0.99 8 Rubeola IgG Ab,S 32.2 AU/mL Immune >16.4 9 Mumps IgG,S <9.0 AU/mL Abnormal Immune >10.9 10 Laboratory test finding 07/26/2020 [facility] Culture, Urine, Routine SEE NOTE 11 Enhanced PDF Report [id number] PDF IMAGE OFF Ua Routine 07/26/2020 Done in [facility] Urine Specific [place] 1.030 Ua PH Test Strip 7.0 Ua Color wanda Ua Appearance cloudy Ua WBC + Ua Protein + Urine Glucose QL - Urine Ketones QL Test Strip + Urine Bilirubin TTL QL T-Strip - Urine Urobilinogen QN TS - Urine Nitrite QL TS - Ua Occult Blood +++ Xray 07/26/2020 [facility] [address] [place] [address] [phone] US Renal/Pelvic (Bladder) <pending> CBC W/Auto Diff 07/25/2020 [facility] [phone] White Blood Count 8.64 10^3/uL Normal 4.00-10.50 [...] Lymph % (Auto) 25.8 % Normal 20.0-51.0 [place] % (Auto) 7.8 % Normal 2.0-15.0 Eos % (Auto) 1.5 % Normal 0.0-11.0 Baso % (Auto) 0.2 % Normal 0.0-2.0 Ig % (Auto) 0.6 % 1.00-5.00 Ig # (Auto) 0.1 10^3/uL <0.5 Gran # (Auto) 5.54 10^3/uL Normal 1.50-6.50 Lymph # (Auto) 2.2 k/uL Normal 1.0-5.0 [place] # (Auto) 0.67 k/uL Normal 0.20-1.50 Eos # (Auto) 0.13 10^3/uL Normal 0.00-1.10 Baso # (Auto) 0.02 10^3/uL Normal 0.00-0.20 Comprehensive Metabolic Panel 07/25/2020 [facility] [phone] Sodium 138 mEq/L Normal 135-145 Potassium 4.4 [...] g/dL Normal 1.0-3.0 Laboratory test finding 07/25/2020 [facility] [phone] HCG Qualitative Specimen URINE HCG Qualitative,Urine <pending> *HCG Qualitative Urine NEGATIVE 13 HCG Result,U <pending> Urinalysis 07/25/2020 [facility] [phone] Color,Ur WANDA Abnormal Yellow Appearance,Ur CLOUDY Abnormal Clear PH,Ur 6.0 5.0-8.0 Specific [place],Ur 1.019 Normal 1.002-1.035 Protein,Ur 100 mg/dL Abnormal Negative Glucose, Ur NEGATIVE mg/dL Negative Ketones,Ur NEGATIVE mg/dL Negative Occult Blood,Ur LARGE Abnormal Negative Nitrate,Ur NEGATIVE Negative Leukocyte Esterase ,Ur TRACE Abnormal Negative Bilirubin,Ur NEGATIVE Negative Urobilinogen,Ur 0.2-1.0 EUMG/DL Neg-0-1.0 RBC,Ur >100 PERHPF Abnormal 0-2 Urine Epith MANY PER/LPF Few-Mod Mucus,Ur FEW PERHPF None Seen CBC W/Auto Diff 05/11/2020 [facility] [phone] White Blood Count 6.20 10^3/uL Normal 4.00-10.50 [...] Lymph % (Auto) 28.2 % Normal 20.0-51.0 [place] % (Auto) 6.1 % Normal 2.0-15.0 Eos % (Auto) 1.8 % Normal 0.0-11.0 Baso % (Auto) 0.2 % Normal 0.0-2.0 Ig % (Auto) 0.5 % 1.00-5.00 Ig # (Auto) 0.0 10^3/uL <0.5 Gran # (Auto) 3.92 10^3/uL Normal 1.50-6.50 Lymph # (Auto) 1.8 k/uL Normal 1.0-5.0 [place] # (Auto) 0.38 k/uL Normal 0.20-1.50 Eos # (Auto) 0.11 10^3/uL Normal 0.00-1.10 Baso # (Auto) 0.01 10^3/uL Normal 0.00-0.20 Laboratory test finding 05/11/2020 [facility] [phone] HCG Qualitative Specimen SERUM *HCG Qualitative Serum NEGATIVE 14 Comprehensive Metabolic Panel 05/11/2020 [facility] [phone] Sodium 139 mEq/L Normal 135-145 Potassium 4.1 [...] Ratio 2.2 g/dL Normal 1.0-3.0 Urinalysis 05/11/2020 [facility] [phone] Color,Ur YELLOW Yellow Appearance,Ur CLOUDY Abnormal Clear PH,Ur 5.0 5.0-8.0 Specific [place],Ur 1.020 Normal 1.002-1.035 Protein,Ur 30 mg/dL Abnormal [...] PERHPF None Seen Laboratory test finding 05/11/2020 [facility] [phone] Urine Culture <SEE NOTE> 16 1 NO [...] Little GFR Left ESRD GFR <15 on [employer] COORDINATOR 5 FULL REPORT IN LAB NOTES (Alicia [...] Mumps virus or previous vaccination. Performed at: [address] [id number] Ecological Modeler: Jimena Jay MD, Phone: [phone] CULTURE, URINE, ROUTINE Micro Number: [id number] Test Status: Final Specimen Source: URINE Specimen [...] 16 Run: 05/12/20 1030 INTERFACED REPORT Name: Isidro Field Age/Sex: 34/F Location: Acct: [id number] Unit: [id number] Status: [facility] Room/Bed: Re05/11/20 Disch: Att Dr: Kyree John MD Specimen #: [id number] Ordered : 05/11/20 Collected : 05/11/20 By: ARLYN Received: 05/11/20 By: DELLA Source: URINE CC Specimen Description: Procedure Result COLONY COUNT Final COLONY COUNT GREATER THAN 100,000 CFU/ML URINE CULTURE Final PRESENCE OF 3 OR MORE ORGANISMS-SPECIMEN MAY BE CONTAMINATED SUGGEST REPEAT END OF REPORT Procedures Date Code Description Status 09/13/2020 Office/Outpatient Established Mo d MDM 30-39 Min Completed 09/13/2020 71600 Visual Screening Test Completed 09/13/2020 03538 Electrocardiogram Complete Compl eted 09/13/2020 00876 Screening Hearing Test Completed 09/13/2020 59955 Preventive Visit Est 18-39 Yrs C ompleted 08/10/2020 Office/Outpatient Established Lo w MDM 20-29 Min Completed 07/26/2020 Office/Outpatient Established Mo d MDM 30-39 Min Completed 07/26/2020 Office/Outpatient Established Mo d MDM 30-39 Min Completed 06/26/2020 Office/Outpatient Established Lo w MDM 20-29 Min Completed 06/11/2020 Office/Outpatient Established Mo d MDM 30-39 Min Completed 06/04/2020 17360 Office/Outpatient Established Mo d MDM 30-39 Min Completed 06/04/2020 55280 Brief Emotional/Beha v Assessment W/ Scoring Doc Per Standard Inst Completed 06/04/2020 23957 Brief Emotional/Beha v Assessment W/ Scoring Doc Per Standard Inst Completed 06/04/2020 21271 Admin Of Inj (Therapeutic Phroph ylactic Or Diagnostic Subq Inj Completed 06/04/2020 23479 Office/Outpatient Established Mo d MDM 30-39 Min Completed 05/28/2020 45831 Office/Outpatient Established Mo d MDM 30-39 Min Completed 05/28/2020 29645 Office/Outpatient Established Mo d MDM 30-39 Min Completed 05/28/2020 46006 Brief Emotional/Beha v Assessment W/ Scoring Doc Per Standard Inst Completed 05/25/2020 05282 Office/Outpatient Established Lo w MDM 20-29 Min Completed 04/30/2020 18658 Office/Outpatient Established Lo w MDM 20-29 Min Completed 04/30/2020 66604 Office/Outpatient Established Lo w MDM 20-29 Min Completed Medical Devices Description No Information Available Encounters Type Date Location Provider Dx Diagnosis Office Visit 09/13/2020 9:00a [facility] [...] D.O. K12.2 Cellulitis and abscess of mo [facility] M54.17 Radiculopathy, lumbosacral r egion Office Visit 06/11/2020 11:30a [facility] Kemal Villarreal D.O. 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 K05.00 Acute gingivitis, plaque ind uced K08.89 Other specified disorders of teeth and supporting structures Office Visit 04/30/2020 3:15p [facility] Heather Martinez PA-C M54.17 Radiculopathy, lumbosacral r egion Assessments Date Code Description Provider 10/18/2020 D50.9 Iron deficiency anemia, unspecif ied Kemal Villarreal D.O. 10/18/2020 R53.83 Other fatigue Michelle Verduzco 09/13/2020 Z00.00 Encounter for genera l adult medical examination without abnormal findings Kemal Villarreal D.O. 09/13/2020 E66.01 Morbid (severe) obesity due to e xcess calories Kemal Villarreal D.O. 09/13/2020 Z23 Encounter for immunization Michelle VerduzcoOMark 09/13/2020 Z68.43 Body mass index [BMI] 50.0-59.9, adult Kemal Villarreal D.O. 09/13/2020 R53.83 Other fatigue Michelle Verduzco OMark 08/10/2020 D50.9 Iron deficiency anemia, unspecif ied Kemal Villarreal D.O. 08/10/2020 M54.5 Low back pain Michelle Verduzco [...] due to e xcess calories Michelle VerduzcoOMark 06/11/2020 K04.7 Periapical abscess without sinus Michelle VerduzcoOMark 06/11/2020 Z68.43 Body mass index [BMI] 50.0-59.9, adult Kemal Villarreal D.O. 06/04/2020 K04.7 Periapical abscess without sinus Michelle VerduzcoOMark 06/04/2020 S02.82xA Fracture of other sp ecified [...] left side, initial encounter for closed fracture Michelle VerduzcoOMark 06/04/2020 J31.0 Chronic rhinitis Heather Martinez PA-C 06/04/2020 Z68.43 Body mass index [BMI] 50.0-59.9, adult Michelle VerduzcoOMark 06/04/2020 Z68.43 Body mass index [BMI] 50.0-59.9, adult Heather Martinez PA-C 05/28/2020 E66.01 Morbid (severe) obesity due to e xcess calories Kemal Villarreal D.O. 05/28/2020 Z13.89 Encounter for screening for othe r disorder Heather Martinez PA-C 05/28/2020 K04.7 Periapical abscess without sinus Michelle VerduzcoOMark 05/28/2020 E66.01 Morbid (severe) obesity due to e xcess calories Heather Martinez PA-C 05/28/2020 S02.82xA Fracture of other sp ecified skull and facial bones, left side, initial encounter for closed fracture Michelle VerduzcoOMark 05/28/2020 K04.7 Periapical abscess without sinus Heather [...] 8:00 am - Kemal Villarreal D.O. at [facility] 10/18/2020 - Kemal Villarreal D.O.* D50.9 Iron deficiency anemia, unspecified * R53.83 Other fatigue Functional Status Description No Information Available Mental Status Description No Information Available Referrals Refer to Dr Reason for Referral Status Appt Date Jay [...] care of this patient. Kemal Villarreal D.O. [facility] Urogynecology Physician Sent [address] [place] [address] [phone]
--- OUTSIDE RECORDS SUMMARY | 2021-01-11 19:44 | CCD | Continuity of Care Document ---
Author Author Isidro VILLARREAL D.O. Organization Unknown Address [address] [place] [id number] Phone [phone] Care Team Providers Care [employer] Temperer Name Role Phone Kemal Villarreal DO AUTM [phone] Jay Bush AUTM [phone] Problems Active Problems Provider Date H/O: pulmonary [...] Code Status Date Vaccine Reaction Lot # 93049 Given 09/13/2020 MMR Virus Immunization No Reaction S [id number] Given 08/07/2020 MMR Virus Immunization No Reaction s [id number] Q2038 Given 06/03/2013 Fluzone Trivalent Immunization 85519 Given 03/16/2007 Tetanus Toxoid Vital Signs Date Vital Result Comment 09/13/2020 10:22am Body Temperature 98.2 F Weight 271.00 lb Heart Rate 91 /min BP Systolic 120 mmHg BP Diastolic 86 mmHg Respiratory Rate 22 /min Height 60 inches 5'0" BMI (Body Mass Index) 52.9 kg/m2 [place] Body Weight 100 lb O2 % BldC [...] H/L Range Note Laboratory test finding 10/06/2020 [facility] [phone] Glycosylated Hgba1c 4.9 % Normal 4.1-6.5 Laboratory test finding 10/06/2020 [facility] [phone] No Urine Received From Patient NO URINE RECEIVE <SEE N OTE> 1 Basic Metabolic Panel 10/06/2020 [facility] [phone] Sodium 139 mEq/L Normal 135-145 Potassium 3.8 mEq/L Normal 3.5-5.3 Chloride 108 mEq/L Normal 94-110 Carbon Dioxide 24 mEq/L Normal 22-33 Anion Gap 11 Normal 5-16 Blood Urea Nitro 14 mg/dL Normal 7-25 Creatinine 0.8 mg/dL Normal 0.6-1.4 GFR 81.2 mL/min 2 BUN/Creat Ratio 17 Normal 8-36 Glucose 82 mg/dL Normal 70-100 CA 9.6 mg/dL Normal 8.7-10.5 Laboratory test finding 10/05/2020 [facility] [phone] Hemoglobin A1c <pending> CBC With Differential 09/26/2020 [facility] White Blood Count 6.6 10 Normal [...] 36.0-66.0 Lymph % 30.3 % Normal 24.0-44.0 [place] % 7.5 % Normal 2.0-8.0 Eos % 1.2 % Normal 0.0-3.0 Baso % 0.5 % Normal 0.0-1.0 Immature Granulocyte % 0.8 % Normal 0-3.0 Nucleated Red Blood Cell % 0.0 % Normal 0-0 Neutrophils # 4.0 10 Normal 1.5-8.5 Lymph # 2.0 10 Normal 1.5-5.0 [place] # 0.5 10 Normal 0.0-0.8 Eos # 0.1 10 Normal 0.0-0.5 Baso # 0.0 10 Normal 0.0-0.2 Prothrombin Time/Inr 09/26/2020 [facility] Prothrombin Time 12.3 seconds Normal 12.5-14.3 Inr 0.90 Normal 3 Laboratory test finding 09/26/2020 [facility] Partial Thromboplastin Time 23.5 seconds Low 24.2-38.5 Liver Profile 09/26/2020 [facility] Ast/Sgot 56 U/L High 7-37 Alt/SGPT 65 U/L Normal 12-78 Alkaline Phosphatase 110 U/L Normal 45-117 Bilirubin,Total 0.3 mg/dL Normal 0.2-1.0 Bilirubin,Direct < 0.1 mg/dL Normal 0.0-0.2 Total Protein 7.2 GM/DL Normal 6.4-8.2 Albumin 3.6 GM/DL Normal 3.2-5.2 Albumin/Globulin Ratio 1.0 Low 1.2-2.2 Basic Metabolic Profile 09/26/2020 [facility] Glucose, Fasting 101 mg/dL High 70-100 [...] mg/dL Normal 8.5-10.1 Laboratory test finding 09/26/2020 [facility] Lipase 100 U/L Normal 73-393 HCG Serum Qualitative NEGATIVE Normal Negative Ua W/ Reflex To Culture 09/26/2020 [facility] Appearance, Urine RFX CLOUDY High Clear Color, Urine RFX YELLOW Normal Yellow PH,Urine RFX 6.0 units Normal 5.0-9.0 Specific [place] Ur Auto RFX 1.021 Normal 1.002-1.035 Protein, [...] /LPF Normal 0-1 Reflex Urine Culture 09/26/2020 [facility] Reflex Urine Culture FULL REPORT IN L <SEE NOTE> Normal 5 Laboratory test finding 09/05/2020 [facility] iSTAT B-hCG < 5.0 Normal 6 Istat Chem8+ Panel 09/05/2020 [facility] iSTAT HCT 36.0 % Low 38.0-51.0 iSTAT Glucose 88 mg/dL Normal 70-105 iSTAT Sodium 139 mEq/L Normal 136-145 iSTAT Potassium 4.0 mEq/L Normal 3.5-5.1 iSTAT CA++ 4.8 mg/dL Normal 4.5-5.3 iSTAT Chloride 103 mEq/L Normal 98-109 iSTAT Co2 26.0 MM/L Normal 23.0-27.0 iSTAT BUN 12 mg/dL Normal 8-26 iSTAT Creatinine 0.6 mg/dL Normal 0.6-1.3 Istat Chem8+ Panel 09/05/2020 [facility] iSTAT HCT 39.0 % Normal 38.0-51.0 iSTAT Glucose 119 mg/dL High 70-105 iSTAT Sodium 139 mEq/L Normal 136-145 iSTAT Potassium 4.0 mEq/L Normal 3.5-5.1 iSTAT CA++ 5.0 mg/dL Normal 4.5-5.3 iSTAT Chloride 100 mEq/L Normal 98-109 iSTAT Co2 25.0 MM/L Normal 23.0-27.0 iSTAT BUN 13 mg/dL Normal 8-26 iSTAT Creatinine 0.6 mg/dL Normal 0.6-1.3 Laboratory test finding 09/05/2020 [facility] iSTAT B-hCG < 5.0 Normal 7 MMR 07/31/2020 [facility] [phone] Rubella IgG Ab,S 1.49 index Immune >0.99 8 Rubeola IgG Ab,S 32.2 AU/mL Immune >16.4 9 Mumps IgG,S <9.0 AU/mL Abnormal Immune >10.9 10 Laboratory test finding 07/26/2020 [facility] Culture, Urine, Routine SEE NOTE 11 Enhanced PDF Report [id number] PDF IMAGE OFF Ua Routine 07/26/2020 Done in [facility] Urine Specific [place] 1.030 Ua PH Test Strip 7.0 Ua Color wanda Ua Appearance cloudy Ua WBC + Ua Protein + Urine Glucose QL - Urine Ketones QL Test Strip + Urine Bilirubin TTL QL T-Strip - Urine Urobilinogen QN TS - Urine Nitrite QL TS - Ua Occult Blood +++ Xray 07/26/2020 [facility] [address] [place] [address] [phone] US Renal/Pelvic (Bladder) <pending> CBC W/Auto Diff 07/25/2020 [facility] [phone] White Blood Count 8.64 10^3/uL Normal 4.00-10.50 [...] Lymph % (Auto) 25.8 % Normal 20.0-51.0 [place] % (Auto) 7.8 % Normal 2.0-15.0 Eos % (Auto) 1.5 % Normal 0.0-11.0 Baso % (Auto) 0.2 % Normal 0.0-2.0 Ig % (Auto) 0.6 % 1.00-5.00 Ig # (Auto) 0.1 10^3/uL <0.5 Gran # (Auto) 5.54 10^3/uL Normal 1.50-6.50 Lymph # (Auto) 2.2 k/uL Normal 1.0-5.0 [place] # (Auto) 0.67 k/uL Normal 0.20-1.50 Eos # (Auto) 0.13 10^3/uL Normal 0.00-1.10 Baso # (Auto) 0.02 10^3/uL Normal 0.00-0.20 Comprehensive Metabolic Panel 07/25/2020 [facility] [phone] Sodium 138 mEq/L Normal 135-145 Potassium 4.4 [...] g/dL Normal 1.0-3.0 Laboratory test finding 07/25/2020 [facility] [phone] HCG Qualitative Specimen URINE HCG Qualitative,Urine <pending> *HCG Qualitative Urine NEGATIVE 13 HCG Result,U <pending> Urinalysis 07/25/2020 [facility] [phone] Color,Ur WANDA Abnormal Yellow Appearance,Ur CLOUDY Abnormal Clear PH,Ur 6.0 5.0-8.0 Specific [place],Ur 1.019 Normal 1.002-1.035 Protein,Ur 100 mg/dL Abnormal Negative Glucose, Ur NEGATIVE mg/dL Negative Ketones,Ur NEGATIVE mg/dL Negative Occult Blood,Ur LARGE Abnormal Negative Nitrate,Ur NEGATIVE Negative Leukocyte Esterase ,Ur TRACE Abnormal Negative Bilirubin,Ur NEGATIVE Negative Urobilinogen,Ur 0.2-1.0 EUMG/DL Neg-0-1.0 RBC,Ur >100 PERHPF Abnormal 0-2 Urine Epith MANY PER/LPF Few-Mod Mucus,Ur FEW PERHPF None Seen CBC W/Auto Diff 05/11/2020 [facility] [phone] White Blood Count 6.20 10^3/uL Normal 4.00-10.50 [...] Lymph % (Auto) 28.2 % Normal 20.0-51.0 [place] % (Auto) 6.1 % Normal 2.0-15.0 Eos % (Auto) 1.8 % Normal 0.0-11.0 Baso % (Auto) 0.2 % Normal 0.0-2.0 Ig % (Auto) 0.5 % 1.00-5.00 Ig # (Auto) 0.0 10^3/uL <0.5 Gran # (Auto) 3.92 10^3/uL Normal 1.50-6.50 Lymph # (Auto) 1.8 k/uL Normal 1.0-5.0 [place] # (Auto) 0.38 k/uL Normal 0.20-1.50 Eos # (Auto) 0.11 10^3/uL Normal 0.00-1.10 Baso # (Auto) 0.01 10^3/uL Normal 0.00-0.20 Laboratory test finding 05/11/2020 [facility] [phone] HCG Qualitative Specimen SERUM *HCG Qualitative Serum NEGATIVE 14 Comprehensive Metabolic Panel 05/11/2020 [facility] [phone] Sodium 139 mEq/L Normal 135-145 Potassium 4.1 [...] Ratio 2.2 g/dL Normal 1.0-3.0 Urinalysis 05/11/2020 [facility] [phone] Color,Ur YELLOW Yellow Appearance,Ur CLOUDY Abnormal Clear PH,Ur 5.0 5.0-8.0 Specific [place],Ur 1.020 Normal 1.002-1.035 Protein,Ur 30 mg/dL Abnormal [...] PERHPF None Seen Laboratory test finding 05/11/2020 [facility] [phone] Urine Culture <SEE NOTE> 16 1 NO [...] Little GFR Left ESRD GFR <15 on [employer]LECTRON[employer]SACTION IMPLEMENTER 5 FULL REPORT IN LAB NOTES (Alicia [...] Mumps virus or previous vaccination. Performed at: [facility] [id number] Report Clerk: Jimena Jay MD, Phone: [phone] CULTURE, URINE, ROUTINE Micro Number: [id number] Test Status: Final Specimen Source: URINE Specimen [...] 18 and 75 years only. 16 Run: 05/12/201029 INTERFACED REPORT Name: Isidro Field Age/Sex: 34/F Location: ED Acct: [id number] Unit: [id number] Status: DEP Room/Bed: Re05/11/20 Disch: Att Dr: Kyree John MD Specimen #: [id number] Ordered : 05/11/20 Collected : 05/11/20 By: ARLYN Received: 05/11/20 By: DELLA Source: URINE CC Specimen Description: Procedure Result COLONY COUNT Final COLONY COUNT GREATER THAN 100,000 CFU/ML URINE CULTURE Final PRESENCE OF 3 OR MORE ORGANISMS-SPECIMEN MAY BE CONTAMINATED SUGGEST REPEAT END OF REPORT Procedures Date Code Description Status 09/13/2020 Office/Outpatient Established Mo d MDM 30-39 Min Completed 09/13/2020 44871 Visual Screening Test Completed 09/13/2020 67222 Electrocardiogram Complete Compl eted 09/13/2020 55981 Screening Hearing Test Completed 09/13/2020 45172 Preventive Visit Est 18-39 Yrs C ompleted 08/10/2020 Office/Outpatient Established Lo w MDM 20-29 Min Completed 07/26/2020 Office/Outpatient Established Mo d MDM 30-39 Min Completed 07/26/2020 Office/Outpatient Established Mo d MDM 30-39 Min Completed 06/26/2020 Office/Outpatient Established Lo w MDM 20-29 Min Completed 06/11/2020 79251 Office/Outpatient Established Mo d MDM 30-39 Min Completed 06/04/2020 62119 Office/Outpatient Established Mo d MDM 30-39 Min Completed 06/04/2020 43941 Brief Emotional/Beha v Assessment W/ Scoring Doc Per Standard Inst Completed 06/04/2020 76497 Brief Emotional/Beha v Assessment W/ Scoring Doc Per Standard Inst Completed 06/04/2020 83754 Admin Of Inj (Therapeutic Phroph ylactic Or Diagnostic Subq Inj Completed 06/04/2020 77412 Office/Outpatient Established Mo d MDM 30-39 Min Completed 05/28/2020 89291 Office/Outpatient Established Mo d MDM 30-39 Min Completed 05/28/2020 64378 Office/Outpatient Established Mo d MDM 30-39 Min Completed 05/28/2020 25164 Brief Emotional/Beha v Assessment W/ Scoring Doc Per Standard Inst Completed 05/25/2020 86309 Office/Outpatient Established Lo w MDM 20-29 Min Completed 04/30/2020 43114 Office/Outpatient Established Lo w MDM 20-29 Min Completed 04/30/2020 36859 Office/Outpatient Established Lo w MDM 20-29 Min [...] D.O. K12.2 Cellulitis and abscess of mo [facility] M54.17 Radiculopathy, lumbosacral r egion Office [facility] 06/11[facility]2020 11[facility]ar[facility] D.O. 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 K05.00 Acute gingivitis, plaque ind uced K08.89 Other specified disorders of teeth and supporting structures Office Visit 04/30/2020 3:15p [facility] SHANTEL Martinez M54.17 Radiculopathy, lumbosacral r egion Assessments Date Code Description Provider 10/18/2020 D50.9 Iron deficiency anemia, unspecif ied Kemal Villarreal D.O. 10/18/2020 R53.83 Other fatigue Michelle Verduzco 09/13/2020 Z00.00 Encounter for genera l adult medical examination without abnormal findings Kemal Villarreal D.O. 09/13/2020 E66.01 Morbid (severe) obesity due to e xcess calories Michelle VerduzcoOMark 09/13/2020 Z23 Encounter for immunization Kemal Villarreal D.O. 09/13/2020 Z68.43 Body mass index [BMI] 50.0-59.9, adult Michelle VerduzcoOMark 09/13/2020 R53.83 Other fatigue Michelle Verduzco 08/10/2020 D50.9 Iron deficiency anemia, unspecif ied Isaac Verduzco.OMark 08/10/2020 M54.5 Low back pain Michelle Verduzco [...] Martinez PA-C 07/26/2020 J31.0 Chronic rhinitis Isaac VerduzcoOMark 07/26/2020 J31.0 Chronic rhinitis Heather Martinez PA-C 06/26/2020 K12.2 Cellulitis and abscess of mouth Isaac Verduzco.OMark 06/26/2020 M54.17 Radiculopathy, lumbosacral regio n Michelle VreduzcoOMark 06/11/2020 M54.17 Radiculopathy, lumbosacral regio n Michelle VerduzcoOMark 06/11/2020 E66.01 Morbid (severe) obesity due to e xcess calories Michelle VerduzcoOMark 06/11/2020 K04.7 Periapical abscess without sinus Michelle VerduzcoOMark 06/11/2020 Z68.43 Body mass index [BMI] 50.0-59.9, adult Michelle VerduzcoOMark 06/04/2020 K04.7 Periapical abscess without sinus Isaac Verduzco.O. 06/04/2020 S02.82xA Fracture of other sp ecified skull and facial bones, left side, initial encounter for closed fracture Heather Martinez PA-C 06/04/2020 E66.2 Morbid (severe) obesity with sri eolar hypoventilation Isaac Verduzco.OMark 06/04/2020 K04.7 Periapical abscess without sinus Heather [...] due to e xcess calories Isaac Verduzco.OMark 05/28/2020 Z13.89 Encounter for screening for othe r disorder Heather Martinez PA-C 05/28/2020 K04.7 Periapical abscess without sinus Isaac Verduzco.O. 05/28/2020 E66.01 Morbid (severe) obesity due to [...] 8:00 am - Kemal Villarreal D.O. at [facility] 10/18/2020 - Kemal Villarreal D.O.* D50.9 Iron [...] care of this patient. Kemal Villarreal D.O. [facility] [employer] [address] [place], [place] [id number] [phone]
--- OUTSIDE RECORDS SUMMARY | 2021-01-11 19:49 | CCD ---
Author Author [facility] Address Unknown Phone Unavailable Support Name Relationship Address Phone Munira Field Next Of Kin [address] [place] [address] [facility] Next Of Kin [address] [place] [address] [facility] DETENTION, HOUSEKEEPING Next Of Kin Unknown Unavailable MORNING STAR DETENTION Next Of Kin [place], [place] [address] WALTER OSW Next Of Kin [address] [address] FRANCISCOHAYLEEE Next Of Kin [address] [place] [address] NOT EMPLOYED, NOT EMPLOYED Next Of Kin Unknown Unav ailable CONTACT, NO Next Of Kin Unknown Unavailable DOESN'T WISH, TO LIST Next Of Kin Unknown Unavailab le U Next Of Kin Unknown Unavailable None, Pt Per Next Of Kin - -, - - - ELTON DEGROOT Next Of Kin Unknown NI DEGROOT Next Of Kin [address] [address] NO, ONE Next Of Kin Unknown UE Next Of Kin Unknown Unavailable ALESSANDRO YIN Next Of Kin Unknown DOES, WISH TO LIST NOT Next Of Kin [address] [place] [address] PT DOES NOT, TO LIST WISH Next Of Kin N N N, N N Unavailable NO ONE, PATIENT DECL PER Next Of Kin Unknown Unavail able NO ONE, DECLINED [id number] PER PATIENT Next Of Kin Unknown Unavailable DECLINED [id number], DECLINED [id number] PT Next Of Kin Unknown Unavailable ALESSANDRO CAMPBELL Next Of Kin [address] [place] [id number] D [id number], DECLINED [id number] PT Next Of Kin Unknown Eun vailable D [id number], PT DECLINED [id number] Next Of Kin "" "", "" Unavailable DOES NOT, TO LIST WISH Next Of Kin [address] [place] [address] SONALI MONIQUEE Next Of Kin Unknown UN Next Of Kin Unknown Unavailable DONOVAN FLEMING Next Of Kin [address] [address] MARJORIE FLEMING Next Of Kin [address] [place] [address] N/ADONOVAN Next Of Kin Unknown PATRICK ROSS Next Of Kin [address] [id number] PATRICK MCCLELLAN Next Of Kin [address] [address] PATRICK HIGHTOWER Next Of Kin [address] [address] HILARIA BUTCHER Next Of Kin [address] [place] [address] [phone] NA, NA Next Of Kin Unknown Unavailable DISABLED Next Of Kin [address] [place], [place] [id number] [facility] Next Of Kin [address] [place] [address] DONOVAN FLEMING Next Of Kin [address] [address] LONNIE MAN Next Of Kin [address] [place] [address] UNEMPLOYED Next Of Kin [address] [place] [id number] HILARIA LEYVA Next Of Kin [address] [place] [address] [place] [address] [id number] Care Team Providers Care Molder Hand Name Role Phone LEÓN BUTLER Unavailable Unavailable Fluman, Darlene ELEVATOR RUNNER Unavailable Unavailable Fluman, Darlene ELEVATOR RUNNER Unavailable Unavailable Fluman, Darlene ELEVATOR RUNNER Unavailable Unavailable KATHY COX Unavailable Unavailable Suzette JORGE DO Unavailable Unavailable JORGE, A OMAYRA DO Unavailable Unavailable JORGE, A OMAYRA DO Unavailable Unavailable JORGE, A OMAYRA DO Unavailable Unavailable JORGE, A OMAYRA DO Unavailable Unavailable Mix, Emily PA Unavailable Unavailable Mix, Emily PA Unavailable Unavailable Mix, Emily PA Unavailable Unavailable Mix, Emily PA Unavailable Unavailable Mix, Emily PA Unavailable Unavailable Mix, Emily PA Unavailable Unavailable Mix, Emily PA Unavailable Unavailable Schnapp, S Lico Unavailable Unavailable Schnapp, S Lico Unavailable Unavailable Schnapp, S Lico Unavailable Unavailable Schnapp, S Lico Unavailable Unavailable Schnapp, S Lico Unavailable Unavailable Schnapp, S Lico Unavailable Unavailable Schnapp, S Lico Unavailable Unavailable Schnapp, S Lico Unavailable Unavailable Schnapp, S Lico Unavailable Unavailable Schnapp, S Lico Unavailable Unavailable Schnapp, S Lico Unavailable Unavailable Schnapp, S Lico Unavailable Unavailable Schnapp, S Lico Unavailable Unavailable Schnapp, S Lico Unavailable Unavailable Schnapp, S Lico Unavailable Unavailable Schnapp, S Lico Unavailable Unavailable Schnapp, S Lico Unavailable Unavailable Schnapp, S Lico Unavailable Unavailable Schnapp, S Lico Unavailable Unavailable Schnapp, S Lico Unavailable Unavailable Schnapp, S Lico Unavailable Unavailable Schnapp, S Lico Unavailable Unavailable Schnapp, S Lico Unavailable Unavailable Schnapp, S Lico Unavailable Unavailable Schnapp, S Lico Unavailable Unavailable Schnapp, S Lico Unavailable Unavailable Schnapp, S Lico Unavailable Unavailable Schnapp, S Lico Unavailable Unavailable Schnapp, S Lico Unavailable Unavailable Schnapp, S Lico Unavailable Unavailable Schnapp, S Lico Unavailable Unavailable Gaetano Paige MD Unavailable Unavailable Gaetano Paige MD Unavailable Unavailable Gaetano Paige MD Unavailable Unavailable Gaetano Paige MD Unavailable Unavailable Gaetano Paige MD Unavailable Unavailable Gaetano Paige MD Unavailable Unavailable Gaetano Paige MD Unavailable Unavailable Gaetano Paige MD Unavailable Unavailable Gaetano Paige MD Unavailable Unavailable Gaetano Paige MD Unavailable Unavailable Gaetano Paige MD Unavailable Unavailable Gaetano Paige MD Unavailable Unavailable Gaetano Paige MD Unavailable Unavailable Gaetano Paige MD Unavailable Unavailable Gaetano Paige MD Unavailable Unavailable Gaetano Paige MD Unavailable Unavailable Iannolo, M Jerome MD Unavailable Unavailable Iannolo, M Jerome MD Unavailable Unavailable Iannolo, M Jerome MD Unavailable Unavailable Iannolo, M Jerome MD Unavailable Unavailable Iannolo, M Jerome MD Unavailable Unavailable Iannolo, M Jerome MD Unavailable Unavailable Iannolo, M Jerome MD Unavailable Unavailable Iannolo, M Jerome MD Unavailable Unavailable Iannolo, M Jerome MD Unavailable Unavailable Iannolo, M Jerome MD Unavailable Unavailable Iannolo, M Jerome MD Unavailable Unavailable Iannolo, M Jerome MD Unavailable Unavailable Iannolo, M Jerome MD Unavailable Unavailable Iannolo, M Jerome MD Unavailable Unavailable Iannolo, M Jerome MD Unavailable Unavailable Iannolo, M Jerome MD Unavailable Unavailable Iannolo, M Jerome MD Unavailable Unavailable Iannolo, M Jerome MD Unavailable Unavailable Iannolo, M Jerome MD Unavailable Unavailable Iannolo, M Jerome MD Unavailable Unavailable Iannolo, M Jerome MD Unavailable Unavailable Iannolo, M Jerome MD Unavailable Unavailable Iannolo, M Jerome MD Unavailable Unavailable Iannolo, M Jerome MD Unavailable Unavailable Iannolo, M Jerome MD Unavailable Unavailable Iannolo, M Jerome MD Unavailable Unavailable Iannolo, M Jerome MD Unavailable Unavailable Iannolo, M Jerome MD Unavailable Unavailable Iannolo, M Jerome MD Unavailable Unavailable Iannolo, M Jerome MD Unavailable Unavailable Iannolo, M Jerome MD Unavailable Unavailable Iannolo, M Jerome MD Unavailable Unavailable Iannolo, M Jerome MD Unavailable Unavailable Iannolo, M Jerome MD Unavailable Unavailable Iannolo, M Jerome MD Unavailable Unavailable Iannolo, M Jerome MD Unavailable Unavailable Iannolo, M Jerome MD Unavailable Unavailable Iannolo, M Jerome MD Unavailable Unavailable Iannolo, M Jerome MD Unavailable Unavailable Iannolo, M Jerome MD Unavailable Unavailable Iannolo, M Jerome MD Unavailable Unavailable Iannolo, M Jerome MD Unavailable Unavailable Conchitannolo, M Jerome MD Unavailable Unavailable MYLES LEE MD Unavailable Unavailable MYLES LEE MD Unavailable Unavailable MYLES LEE MD Unavailable Unavailable MYLES LEE MD Unavailable Unavailable MYLES LEE MD Unavailable Unavailable MYLES LEE MD Unavailable Unavailable MYLES LEE MD Unavailable Unavailable MYLES LEE MD Unavailable Unavailable MYLES LEE MD Unavailable Unavailable Emeterio, Gladys Unavailable + Gladys Storm Unavailable + Gladys Storm Unavailable + Gladys Storm Unavailable + Suzette Carolina MD Unavailable Unavailable Syrett, Susan Adorno MD Unavailable Unavailable Syrett, Susan Adorno MD Unavailable Unavailable Syrett, Susan Adorno MD Unavailable Unavailable Syrett, Susan Adorno MD Unavailable Unavailable Syrett, Susan Adorno MD Unavailable Unavailable VIRDEE, Deric HERNANDEZ MD Unavailable Unavailable VIRDEE, Deric HERNANDEZ MD Unavailable Unavailable VIRDEE, Deric HERNANDEZ MD Unavailable Unavailable LONNIE, T MARTI ELEVATOR RUNNER Unavailable Unavailable LONNIE, T MARTI ELEVATOR RUNNER Unavailable Unavailable LONNIE, T MARTI ELEVATOR RUNNER Unavailable Unavailable LONNIE, T MARTI ELEVATOR RUNNER Unavailable Unavailable LONNIE, T MARTI ELEVATOR RUNNER Unavailable Unavailable LONNIE, T MARTI ELEVATOR RUNNER Unavailable Unavailable LONNIE, T MARTI ELEVATOR RUNNER Unavailable Unavailable LONNIE, T MARTI ELEVATOR RUNNER Unavailable Unavailable LONNIE, T MARTI ELEVATOR RUNNER Unavailable Unavailable LONNIE, T MARTI ELEVATOR RUNNER Unavailable Unavailable LONNIE, T MARTI ELEVATOR RUNNER Unavailable Unavailable LONNIE, T MARTI ELEVATOR RUNNER Unavailable Unavailable LONNIE, T MARTI ELEVATOR RUNNER Unavailable Unavailable LONNIE, T MARTI ELEVATOR RUNNER Unavailable Unavailable LONNIE, T MARTI ELEVATOR RUNNER Unavailable Unavailable LONNIE, T MARTI ELEVATOR RUNNER Unavailable Unavailable LONNIE, T MARTI ELEVATOR RUNNER Unavailable Unavailable LONNIE, T MARTI ELEVATOR RUNNER Unavailable Unavailable LONNIE, T MARTI ELEVATOR RUNNER Unavailable Unavailable LONNIE, T MARTI ELEVATOR RUNNER Unavailable Unavailable LONNIE, T MARTI ELEVATOR RUNNER Unavailable Unavailable LONNIE, T MARTI ELEVATOR RUNNER Unavailable Unavailable LONNIE, T MARTI ELEVATOR RUNNER Unavailable Unavailable LONNIE, T MARTI ELEVATOR RUNNER Unavailable Unavailable LONNIE, T MARTI ELEVATOR RUNNER Unavailable Unavailable LONNIE, T MARTI ELEVATOR RUNNER Unavailable Unavailable LONNIE, T MARTI ELEVATOR RUNNER Unavailable Unavailable LONNIE, T MARTI ELEVATOR RUNNER Unavailable Unavailable LONNIE, T MARTI ELEVATOR RUNNER Unavailable Unavailable LONNIE, T MARTI ELEVATOR RUNNER Unavailable Unavailable LONNIE, T MARTI ELEVATOR RUNNER Unavailable Unavailable LONNIE, T MARTI ELEVATOR RUNNER Unavailable Unavailable LONNIE, T MARTI ELEVATOR RUNNER Unavailable Unavailable LONNIE, T MARTI ELEVATOR RUNNER Unavailable Unavailable LONNIE, T MARTI ELEVATOR RUNNER Unavailable Unavailable LONNIE, T MARTI ELEVATOR RUNNER Unavailable Unavailable LONNIE, T MARTI ELEVATOR RUNNER Unavailable Unavailable LONNIE, T MARTI ELEVATOR RUNNER Unavailable Unavailable LONNIE, T MARTI ELEVATOR RUNNER Unavailable Unavailable Other, Other Unavailable Unavailable MADIE BELTRAN MD Unavailable Unavailable DEVONTE POWERS Unavailable Unavailable Oliveros, K Joesph MD Unavailable Unavailable Oliveros, K Joesph MD Unavailable Unavailable Oliveros, K Joesph MD Unavailable Unavailable Oliveros, K Joesph MD Unavailable Unavailable Oliveros, K Joesph MD Unavailable Unavailable Oliveros, K Joesph MD Unavailable Unavailable Oliveros, K Joesph MD Unavailable Unavailable Oliveros, K Joesph MD Unavailable Unavailable Oliveros, K Joesph MD Unavailable Unavailable Oliveros, K Joesph MD Unavailable Unavailable Oliveros, K Joesph MD Unavailable Unavailable Oliveros, K Joesph MD Unavailable Unavailable Oliveros, K Joesph MD Unavailable Unavailable Oliveros, K Joesph MD Unavailable Unavailable Oliveros, K Joesph MD Unavailable Unavailable Oliveros, K Joesph MD Unavailable Unavailable Oliveros, K Joesph MD Unavailable Unavailable NANI MOSQUERA MD Unavailable Unavailable NANI MOSQUERA MD Unavailable Unavailable NANI MOSQUERA MD Unavailable Unavailable NANI MOSQUERA MD Unavailable Unavailable NANI MOSQUERA MD Unavailable Unavailable NANI MOSQUERA MD Unavailable Unavailable NANI MOSQUERA MD Unavailable Unavailable NANI MOSQUERA MD Unavailable Unavailable NANI MOSQUERA MD Unavailable Unavailable NANI MOSQUERA MD Unavailable Unavailable NANI MOSQUERA MD Unavailable Unavailable Anjali Jackson MD Unavailable Unavailable ManddanielsAnjali Herman MD Unavailable Unavailable MandanasAnjali Herman MD Unavailable Unavailable MandanasAnjali Herman MD Unavailable Unavailable MandanasAnjali Herman MD Unavailable Unavailable MandanasAnjali Herman MD Unavailable Unavailable MandanasAnjali Herman MD Unavailable Unavailable MandanasAnjali Herman MD Unavailable Unavailable MandanasAnjali Herman MD Unavailable Unavailable MandanasAnjali Herman MD Unavailable Unavailable MandanasAnjali Herman MD Unavailable Unavailable Mandanas, Anjali Herman MD Unavailable Unavailable MandanasAnjali Herman MD Unavailable Unavailable MandanasAnjali Herman MD Unavailable Unavailable MandanasAnjali Herman MD Unavailable Unavailable Mandanas, Anjali Herman MD Unavailable Unavailable Mandanas, Anjali Herman MD Unavailable Unavailable Mandanas, Anjali Herman MD Unavailable Unavailable Mandanas, Anjali Herman MD Unavailable Unavailable Mandanas, Anjali Herman MD Unavailable Unavailable Mandanas, Anjali Herman MD Unavailable Unavailable Mandanas, Yap Herman MD Unavailable Unavailable Mandanas, Anjali Herman MD Unavailable Unavailable Mandanas, Yap Herman MD Unavailable Unavailable Mandanas, Anjali Herman MD Unavailable Unavailable Mandanas, Anjali Herman MD Unavailable Unavailable Mandanas, Anjali Herman MD Unavailable Unavailable Mandanas, Yap Herman MD Unavailable Unavailable Mandanas, Anjali Herman MD Unavailable Unavailable Mandanas, Anjali Herman MD Unavailable Unavailable Mandanas, Anjali Herman MD Unavailable Unavailable Mandanas, Anjali Herman MD Unavailable Unavailable Mandanas, Anjali Herman MD Unavailable Unavailable Mandanas, Anjali Herman MD Unavailable Unavailable Mandanas, Anjali Herman MD Unavailable Unavailable Mandanas, Anjali Herman MD Unavailable Unavailable Mandanas, Anjali Herman MD Unavailable Unavailable Mandanas, Anjali Herman MD Unavailable Unavailable Mandanas, Anjali Herman MD Unavailable Unavailable Mandanas, Anjali Herman MD Unavailable Unavailable Mandanas, Anjali Herman MD Unavailable Unavailable Mandanas, Anjali Herman MD Unavailable Unavailable Mandanas, Anjali Herman MD Unavailable Unavailable Mandanas, Anjali Herman MD Unavailable Unavailable Mandanas, Anjali Herman MD Unavailable Unavailable Mandanas, Anjali Herman MD Unavailable Unavailable Mandanas, Anjali Herman MD Unavailable Unavailable Mandanas, Anjali Herman MD Unavailable Unavailable Mandanas, Anjali Herman MD Unavailable Unavailable Mandanas, Anjali Herman MD Unavailable Unavailable Mandanas, Anjali Herman MD Unavailable Unavailable Mandanas, Anjali Herman MD Unavailable Unavailable Mandanas, Anjali Herman MD Unavailable Unavailable Mandanas, Anjali Herman MD Unavailable Unavailable Mandanas, Anjali Herman MD Unavailable Unavailable Mandanas, Anjali Herman MD Unavailable Unavailable Mandanas, Anjali Herman MD Unavailable Unavailable Mandanas, Anjali Herman MD Unavailable Unavailable Mandanas, Anjali Herman MD Unavailable Unavailable Mandanas, Anjali Herman MD Unavailable Unavailable Mandanas, Anjali Herman MD Unavailable Unavailable Mandanas, Anjali Herman MD Unavailable Unavailable Mandanas, Anjali Herman MD Unavailable Unavailable Duglas Duran MD Unavailable Unavailable Duglas Duran MD Unavailable Unavailable SarmastDuglas MD Unavailable Unavailable SarmastDuglas MD Unavailable Unavailable SarmastDuglas MD Unavailable Unavailable SarmastDuglas MD Unavailable Unavailable SarmastDuglas MD Unavailable Unavailable SarmastDuglas MD Unavailable Unavailable SarmastDuglas MD Unavailable Unavailable SarmastDuglas MD Unavailable Unavailable SarmastDuglas MD Unavailable Unavailable SarmastDuglas MD Unavailable Unavailable SarmastDuglas MD Unavailable Unavailable SarmastDuglas MD Unavailable Unavailable SarmastDuglas MD Unavailable Unavailable SarmastDuglas MD Unavailable Unavailable SarmastDuglas MD Unavailable Unavailable SarmastDuglas MD Unavailable Unavailable SarmastDuglas MD Unavailable Unavailable SarmastDuglas MD Unavailable Unavailable SarmastDuglas MD Unavailable Unavailable SarmastDuglas MD Unavailable Unavailable SarmastDuglas MD Unavailable Unavailable SarmastDuglas MD Unavailable Unavailable SarmastDuglas MD Unavailable Unavailable SarmastDuglas MD Unavailable Unavailable SarmastDuglas MD Unavailable Unavailable SarmastDuglas MD Unavailable Unavailable SarmastDuglas MD Unavailable Unavailable Sarah BethmastDuglas MD Unavailable Unavailable SarmastDuglas MD Unavailable Unavailable SarmastDuglas MD Unavailable Unavailable SarmastDuglas MD Unavailable Unavailable SarmastDuglas MD Unavailable Unavailable SarmastDuglas MD Unavailable Unavailable Sarah BethmastDuglas MD Unavailable Unavailable Sarah BethmastDuglas MD Unavailable Unavailable SarmastDuglas MD Unavailable Unavailable SarmastDuglas MD Unavailable Unavailable SarmastDuglas MD Unavailable Unavailable SarmastDuglas MD Unavailable Unavailable SarmastDuglas MD Unavailable Unavailable Sarah BethmastDuglas MD Unavailable Unavailable Sarah BethmastDuglas MD Unavailable Unavailable Sarah BethmastDuglas MD Unavailable Unavailable Courtney JHAVERI MD Unavailable Unavailable Courtney JHAVERI MD Unavailable Unavailable Courtney JHAVERI MD Unavailable Unavailable Courtney JHAVERI MD Unavailable Unavailable Courtney JHAVERI MD Unavailable Unavailable Courtney JHAVERI MD Unavailable Unavailable Courtney Moreno JUNIOR WEB DEVELOPER Unavailable Unavailable Springall, L Milena JUNIOR WEB DEVELOPER Unavailable Unavailable Springall, L Milena JUNIOR WEB DEVELOPER Unavailable Unavailable Springall, L Milena JUNIOR WEB DEVELOPER Unavailable Unavailable Springall, L Milena JUNIOR WEB DEVELOPER Unavailable Unavailable Springall, L Milena JUNIOR WEB DEVELOPER Unavailable Unavailable Springall, L Milena JUNIOR WEB DEVELOPER Unavailable Unavailable Springall, L Milena JUNIOR WEB DEVELOPER Unavailable Unavailable Springall, L Milena JUNIOR WEB DEVELOPER Unavailable Unavailable Springall, L Milena JUNIOR WEB DEVELOPER Unavailable Unavailable Springall, L Milena JUNIOR WEB DEVELOPER Unavailable Unavailable Springall, L Milena JUNIOR WEB DEVELOPER Unavailable Unavailable Springall, L Milena JUNIOR WEB DEVELOPER Unavailable Unavailable Springall, L Milena JUNIOR WEB DEVELOPER Unavailable Unavailable Springall, L Milena JUNIOR WEB DEVELOPER Unavailable Unavailable Springall, L Milena JUNIOR WEB DEVELOPER Unavailable Unavailable Springall, L Milena JUNIOR WEB DEVELOPER Unavailable Unavailable Springall, L Milena JUNIOR WEB DEVELOPER Unavailable Unavailable Springall, L Milena JUNIOR WEB DEVELOPER Unavailable Unavailable Calvillo ., Betty DO Unavailable Unavailable Calvillo ., Betty DO Unavailable Unavailable YEN, OPHELIA-HSIANG Unavailable Unavailable DIANE, J FORTUNATO DO Unavailable Unavailable DIANE, J FORTUNATO DO Unavailable Unavailable DIANE, J FORTUNATO DO Unavailable Unavailable DIANE, J FORTUNATO DO Unavailable Unavailable DIANE, J FORTUNATO DO Unavailable Unavailable DIANE, J FORTUNATO DO Unavailable Unavailable DIANE, J FORTUNATO DO Unavailable Unavailable DIANE, J FORTUNATO DO Unavailable Unavailable DIANE, J FORTUNATO DO Unavailable Unavailable DIANE, J FORTUNATO DO Unavailable Unavailable DIANE, J FORTUNATO DO Unavailable Unavailable DIANE, J FORTUNATO DO Unavailable Unavailable DIANE, J FORTUNATO DO Unavailable Unavailable DIANE, J FORTUNATO DO Unavailable Unavailable DIANE, J FORTUNATO DO Unavailable Unavailable DIANE, J FORTUNATO DO Unavailable Unavailable DIANE, J FORTUNATO DO Unavailable Unavailable DIANE, J FORTUNATO DO Unavailable Unavailable DIANE, J FORTUNATO DO Unavailable Unavailable DIANE, J FORTUNATO DO Unavailable Unavailable DIANE, J FORTUNATO DO Unavailable Unavailable DIANE, J FORTUNATO DO Unavailable Unavailable DIANE, J FORTUNATO DO Unavailable Unavailable DIANE, J FORTUNATO DO Unavailable Unavailable DIANE, J FORTUNATO DO Unavailable Unavailable DIANE, J FORTUNATO DO Unavailable Unavailable DIANE, J FORTUNATO DO Unavailable Unavailable DIANE, J FORTUNATO DO Unavailable Unavailable DIANE, J FORTUNATO DO Unavailable Unavailable DIANE, J FORTUNATO DO Unavailable Unavailable DIANE, J FORTUNATO DO Unavailable Unavailable DIANE, J FORTUNATO DO Unavailable Unavailable DIANE, J FORTUNATO DO Unavailable Unavailable DIANE, J FORTUNATO DO Unavailable Unavailable DIANE, J FORTUNATO DO Unavailable Unavailable DIANE, J FORTUNATO DO Unavailable Unavailable DIANE, J FORTUNATO DO Unavailable Unavailable DIANE, J FORTUNATO DO Unavailable Unavailable DIANE, J FORTUNATO DO Unavailable Unavailable DIANE, J FORTUNATO DO Unavailable Unavailable DIANE, J FORTUNATO DO Unavailable Unavailable DIANE, J FORTUNATO DO Unavailable Unavailable DIANE, J FORTUNATO DO Unavailable Unavailable DIANE, J FORTUNATO DO Unavailable Unavailable DIANE, J FORTUNATO DO Unavailable Unavailable DIANE, J FORTUNATO DO Unavailable Unavailable DIANE, J FORTUNATO DO Unavailable Unavailable DIANE, J FORTUNATO DO Unavailable Unavailable DIANE, J FORTUNATO DO Unavailable Unavailable DIANE, J FORTUNATO DO Unavailable Unavailable DIANE, J FORTUNATO DO Unavailable Unavailable DIANE, J FORTUNATO DO Unavailable Unavailable DIANE, J FORTUNATO DO Unavailable Unavailable DIANE, J FORTUNATO DO Unavailable Unavailable DIANE, J FORTUNATO DO Unavailable Unavailable DIANE, J FORTUNATO DO Unavailable Unavailable DIANE, J FORTUNATO DO Unavailable Unavailable DIANE, J FORTUNATO DO Unavailable Unavailable DIANE, J FORTUNATO DO Unavailable Unavailable DIANE, J FORTUNATO DO Unavailable Unavailable DIANE, J FORTUNATO DO Unavailable Unavailable DIANE, J FORTUNATO DO Unavailable Unavailable DIANE, J FORTUNATO DO Unavailable Unavailable DIANE, J FORTUNATO DO Unavailable Unavailable DIANE, J FORTUNATO DO Unavailable Unavailable DIANE, J FORTUNATO DO Unavailable Unavailable DIANE, J FORTUNATO DO Unavailable Unavailable DIANE, J FORTUNATO DO Unavailable Unavailable DIANE, J FORTUNATO DO Unavailable Unavailable DIANE, J FORTUNATO DO Unavailable Unavailable DIANE, J FORTUNATO DO Unavailable Unavailable DIANE, J FORTUNATO DO Unavailable Unavailable DIANE, J FORTUNATO DO Unavailable Unavailable DIANE, J FORTUNATO DO Unavailable Unavailable DIANE, J FORTUNATO DO Unavailable Unavailable DIANE, J FORTUNATO DO Unavailable Unavailable DIANE, J FORTUNATO DO Unavailable Unavailable DIANE, J FORTUNATO DO Unavailable Unavailable DIANE, J FORTUNATO DO Unavailable Unavailable DIANE, J FORTUNATO DO Unavailable Unavailable DIANE, J FORTUNATO DO Unavailable Unavailable DIANE, J FORTUNATO DO Unavailable Unavailable DIANE, J FORTUNATO DO Unavailable Unavailable DIANE, J FORTUNATO DO Unavailable Unavailable DIANE, J FORTUNATO DO Unavailable Unavailable DIANE, J FORTUNATO DO Unavailable Unavailable DIANE, J FORTUNATO DO Unavailable Unavailable DIANE, J FORTUNATO DO Unavailable Unavailable AMILCAR, G ONOFRE DO Unavailable Unavailable AMILCAR, G ONOFRE DO Unavailable Unavailable AMILCAR, G ONOFRE DO Unavailable Unavailable AMILCAR, G ONOFRE DO Unavailable Unavailable AMILCAR, G ONOFRE DO Unavailable Unavailable AMILCAR, G ONOFRE DO Unavailable Unavailable AMILCAR, G ONOFRE DO Unavailable Unavailable AMILCAR, G ONOFRE DO Unavailable Unavailable AMILCAR, G ONOFRE DO Unavailable Unavailable AMILCAR, G ONOFRE DO Unavailable Unavailable AMILCAR, G ONOFRE DO Unavailable Unavailable AMILCAR, G ONOFRE DO Unavailable Unavailable AMILCAR, G ONOFRE DO Unavailable Unavailable AMILCAR, G ONOFRE DO Unavailable Unavailable AMILCAR, G ONOFRE DO Unavailable Unavailable AMILCAR, G ONOFRE DO Unavailable Unavailable AMILCAR, G ONOFRE DO Unavailable Unavailable AMILCAR, G ONOFRE DO Unavailable Unavailable AMILCAR, G ONOFRE DO Unavailable Unavailable AMILCAR, G ONOFRE DO Unavailable Unavailable AMILCAR, G ONOFRE DO Unavailable Unavailable AMILCAR, G ONOFRE DO Unavailable Unavailable AMILCAR, G ONOFRE DO Unavailable Unavailable AMILCAR, G ONOFRE DO Unavailable Unavailable AMILCAR, G ONOFRE DO Unavailable Unavailable AMILCAR, G ONOFRE DO Unavailable Unavailable AMILCAR, G ONOFRE DO Unavailable Unavailable AMILCAR, G ONOFRE DO Unavailable Unavailable AMILCAR, G ONOFRE DO Unavailable Unavailable AMILCAR, G ONOFRE DO Unavailable Unavailable AMILCAR, G ONOFRE DO Unavailable Unavailable AMILCAR, G ONOFRE DO Unavailable Unavailable AMILCAR, G ONOFRE DO Unavailable Unavailable AMILCAR, G ONOFRE DO Unavailable Unavailable AMILCAR, G ONOFRE DO Unavailable Unavailable AMILCAR, G ONOFRE DO Unavailable Unavailable AMILCAR, G ONOFRE DO Unavailable Unavailable AMILCAR, G ONOFRE DO Unavailable Unavailable AMILCAR, G ONOFRE DO Unavailable Unavailable AMILCAR, G ONOFRE DO Unavailable Unavailable AMILCAR, G ONOFRE DO Unavailable Unavailable AMILCAR, G ONOFRE DO Unavailable Unavailable AMILCAR, G ONOFRE DO Unavailable Unavailable AMILCAR, G ONOFRE DO Unavailable Unavailable AMILCAR, G ONOFRE DO Unavailable Unavailable AMILCAR, G ONOFRE DO Unavailable Unavailable AMILCAR, G ONOFRE DO Unavailable Unavailable AMILCAR, G ONOFRE DO Unavailable Unavailable AMILCAR, G ONOFRE DO Unavailable Unavailable AMILCAR, G ONOFRE DO Unavailable Unavailable AMILCAR, G ONOFRE DO Unavailable Unavailable AMILCAR, G ONOFRE DO Unavailable Unavailable AMILCAR, G ONOFRE DO Unavailable Unavailable AMILCAR, G ONOFRE DO Unavailable Unavailable AMILCAR, G ONOFRE DO Unavailable Unavailable AMILCAR, G ONOFRE DO Unavailable Unavailable AMILCAR, G ONOFRE DO Unavailable Unavailable AMILCAR, G ONOFRE DO Unavailable Unavailable AMILCAR, G ONOFRE DO Unavailable Unavailable AMILCAR, G ONOFRE DO Unavailable Unavailable AMILCAR, G ONOFRE DO Unavailable Unavailable AMILCAR, G ONOFRE DO Unavailable Unavailable AMILCAR, G ONOFRE DO Unavailable Unavailable AMILCAR, G ONOFRE DO Unavailable Unavailable AMILCAR, G ONOFRE DO Unavailable Unavailable AMILCAR, G ONOFRE DO Unavailable Unavailable AMILCAR, G ONOFRE DO Unavailable Unavailable AMILCAR, G ONOFRE DO Unavailable Unavailable AMILCAR, G ONOFRE DO Unavailable Unavailable AMILCAR, G ONOFRE DO Unavailable Unavailable AMILCAR, G ONOFRE DO Unavailable Unavailable Andrew, Courtney Riojas MD Unavailable Unavailable Andrew, Courtney Riojas MD Unavailable Unavailable Andrew, Courtney Riojas MD Unavailable Unavailable Andrew, Courtney Riojas MD Unavailable Unavailable Andrew, Courtney Riojas MD Unavailable Unavailable Andrew, Courtney Riojas MD Unavailable Unavailable Andrew, Courtney Riojas MD Unavailable Unavailable Andrew, Courtney Riojas MD Unavailable Unavailable Andrew, Courtney Riojas MD Unavailable Unavailable Andrew, Courtney Riojas MD Unavailable Unavailable Andrew, Courtney Riojas MD Unavailable Unavailable Andrew, Courtney Riojas MD Unavailable Unavailable Andrew, Courtney Riojas MD Unavailable Unavailable Andrew, Courtney Riojas MD Unavailable Unavailable Andrew, Courtney Riojas MD Unavailable Unavailable HINTON, TRUDY Unavailable [phone] HINTON, TRUDY Unavailable [phone] HINTON, TRUDY Unavailable [phone] HINTON, TRUDY Unavailable [phone] HINTON, TRUDY Unavailable [phone] HINTON, TRUDY Unavailable [phone] HINTON, TRUDY Unavailable [phone] HINTON, TRUDY Unavailable [phone] HINTON, TRUDY Unavailable [phone] HINTON, TRUDY Unavailable [phone] HINTON, TRUDY Unavailable [phone] HINTON, TRUDY Unavailable [phone] Beatriz JASSO PA-C Unavailable Unavailable Beatriz JASSOAH PA-C Unavailable Unavailable Beatriz JASSOAH PA-C Unavailable Unavailable Isaac ARELLANO MD Unavailable Unavailable Dilia, Elton Unavailable Unavailable Dilia, Elton Unavailable Unavailable Dilia, Elton Unavailable Unavailable Dilia, Elton Unavailable Unavailable Dilia, Elton Unavailable Unavailable DEVONRenetta EDGARDO PA Unavailable Unavailable DEVON, Renetta REYNOSO PA Unavailable Unavailable DEVONRenetta EDGARDO PA Unavailable Unavailable DEVONRenetta EDGARDO PA Unavailable Unavailable DEVON, C EDGARDO PA Unavailable Unavailable DEVON, C EDGARDO PA Unavailable Unavailable RAVINDER, MENDY Unavailable Unavailable Elder, P Sierra DO Unavailable Unavailable Elder, P Sierra DO Unavailable Unavailable Elder, P Sierra DO Unavailable Unavailable Elder, P Sierra DO Unavailable Unavailable Elder, P Sierra DO Unavailable Unavailable Elder, P Sierra DO Unavailable Unavailable Elder, P Sierra DO Unavailable Unavailable Elder, P Sierra DO Unavailable Unavailable Elder, P Sierra DO Unavailable Unavailable Elder, P Sierra DO Unavailable Unavailable Elder, P Sierra DO Unavailable Unavailable Elder, P Sierra DO Unavailable Unavailable Elder, P Sierra DO Unavailable Unavailable Elder, P Sierra DO Unavailable Unavailable Elder, P Sierra DO Unavailable Unavailable Elder, P Sierra DO Unavailable Unavailable Elder, P Sierra DO Unavailable Unavailable SUPPLE, AWA Unavailable Unavailable DIANE, J FORTUNATO DO Unavailable Unavailable DIANE, J FORTUNATO DO Unavailable Unavailable DIANE, J FORTUNATO DO Unavailable Unavailable DIANE, J FORTUNATO DO Unavailable Unavailable DIANE, J FORTUNATO DO Unavailable Unavailable DIANE, J FORTUNATO DO Unavailable Unavailable DIANE, J FORTUNATO DO Unavailable Unavailable DIANE, J FORTUNATO DO Unavailable Unavailable DIANE, J FORTUNATO DO Unavailable Unavailable DIANE, J FORTUNATO DO Unavailable Unavailable DIANE, J FORTUNATO DO Unavailable Unavailable DIANE, J FORTUNATO DO Unavailable Unavailable DIANE, J FORTUNATO DO Unavailable Unavailable DIANE, J FORTUNATO DO Unavailable Unavailable DIANE, J FORTUNATO DO Unavailable Unavailable DIANE, J FORTUNATO DO Unavailable Unavailable DIANE, J FORTUNATO DO Unavailable Unavailable DIANE, J FORTUNATO DO Unavailable Unavailable DIANE, J FORTUNATO DO Unavailable Unavailable DIANE, J FORTUNATO DO Unavailable Unavailable DIANE, J FORTUNATO DO Unavailable Unavailable DIANE, J FORTUNATO DO Unavailable Unavailable DIANE, J FORTUNATO DO Unavailable Unavailable DIANE, J FORTUNATO DO Unavailable Unavailable DIANE, J FORTUNATO DO Unavailable Unavailable DIANE, J FORTUNATO DO Unavailable Unavailable DIANE, J FORTUNATO DO Unavailable Unavailable DIANE, J FORTUNATO DO Unavailable Unavailable DIANE, J FORTUNATO DO Unavailable Unavailable DIANE, J FORTUNATO DO Unavailable Unavailable DIANE, J FORTUNATO DO Unavailable Unavailable DIANE, J FORTUNATO DO Unavailable Unavailable DIANE, J FORTUNATO DO Unavailable Unavailable DIANE, J FORTUNATO DO Unavailable Unavailable DIANE, J FORTUNATO DO Unavailable Unavailable DIANE, J FORTUNATO DO Unavailable Unavailable DIANE, J FORTUNATO DO Unavailable Unavailable DIANE, J FORTUNATO DO Unavailable Unavailable DIANE, J FORTUNATO DO Unavailable Unavailable DIANE, J FORTUNATO DO Unavailable Unavailable DIANE, J FORTUNATO DO Unavailable Unavailable DIANE, J FORTUNATO DO Unavailable Unavailable DIANE, J FORTUNATO DO Unavailable Unavailable DIANE, J FORTUNATO DO Unavailable Unavailable DIANE, J FORTUNATO DO Unavailable Unavailable DIANE, J FORTUNATO DO Unavailable Unavailable DIANE, J FORTUNATO DO Unavailable Unavailable DIANE, J FORTUNATO DO Unavailable Unavailable DIANE, J FORTUNATO DO Unavailable Unavailable DIANE, J FORTUNATO DO Unavailable Unavailable DIANE, J FORTUNATO DO Unavailable Unavailable DIANE, J FORTUNATO DO Unavailable Unavailable DIANE, J FORTUNATO DO Unavailable Unavailable DIANE, J FORTUNATO DO Unavailable Unavailable DAINE, J FORTUNATO DO Unavailable Unavailable DIANE, J FORTUNATO DO Unavailable Unavailable DIANE, J FORTUNATO DO Unavailable Unavailable DIANE, J FORTUNATO DO Unavailable Unavailable DIANE, J FORTUNATO DO Unavailable Unavailable DIANE, J FORTUNATO DO Unavailable Unavailable DIANE, J FORTUNATO DO Unavailable Unavailable DIANE, J FORTUNATO DO Unavailable Unavailable DIANE, J FORTUNATO DO Unavailable Unavailable DIANE, J FORTUNATO DO Unavailable Unavailable DIANE, J FORTUNATO DO Unavailable Unavailable DIANE, J FORTUNATO DO Unavailable Unavailable DIANE, J FORTUNATO DO Unavailable Unavailable DIANE, J FORTUNATO DO Unavailable Unavailable DIANE, J FORTUNATO DO Unavailable Unavailable DIANE, J FORTUNATO DO Unavailable Unavailable DIANE, J FORTUNATO DO Unavailable Unavailable DIANE, J FORTUNATO DO Unavailable Unavailable DIANE, J FORTUNATO DO Unavailable Unavailable DIANE, J FORTUNATO DO Unavailable Unavailable DIANE, J FORTUNATO DO Unavailable Unavailable DIANE, J FORTUNATO DO Unavailable Unavailable DIANE, J FORTUNATO DO Unavailable Unavailable DIANE, J FORTUNATO DO Unavailable Unavailable DIANE, J FORTUNATO DO Unavailable Unavailable DIANE, J FORTUNATO DO Unavailable Unavailable DIANE, J FORTUNATO DO Unavailable Unavailable DIANE, J FORTUNATO DO Unavailable Unavailable DIANE, J FORTUNATO DO Unavailable Unavailable DIANE, J FORTUNATO DO Unavailable Unavailable DIANE, J FORTUNATO DO Unavailable Unavailable DIANE, J FORTUNATO DO Unavailable Unavailable DIANE, J FORTUNATO DO Unavailable Unavailable DIANE, J FORTUNATO DO Unavailable Unavailable Deric Peralta MD Unavailable Unavailable Deric Prealta MD Unavailable Unavailable Deric Peralta MD Unavailable Unavailable Deric Peralta MD Unavailable Unavailable Deric Peralta MD Unavailable Unavailable Deric Peralta MD Unavailable Unavailable Deric Peralta MD Unavailable Unavailable Deric Peralta MD Unavailable Unavailable Deric Peralta MD Unavailable Unavailable Deric Peralta MD Unavailable Unavailable Suzette BAKER MD Unavailable Unavailable Suzette BAKER MD Unavailable Unavailable Suzette BAKER MD Unavailable Unavailable Suzette BAKER MD Unavailable Unavailable Suzette BAKER MD Unavailable Unavailable Suzette BAKER MD Unavailable Unavailable Suzette BAKER MD Unavailable Unavailable Suzette BAKER MD Unavailable Unavailable Desmond Calhoun MD Unavailable Unavailable PHYSICIAN, PHYSICIAN ER Unavailable Unavailable Gaetano Adler MD Unavailable Unavailable Gaetano Adler MD Unavailable Unavailable Gateano Adler MD Unavailable Unavailable Gaetano Adler MD Unavailable Unavailable Ahmed, M Mohamed MD Unavailable Unavailable Ahmed, M Mohamed MD Unavailable Unavailable Ahmed, M Mohamed MD Unavailable Unavailable Ahmed, M Mohamed MD Unavailable Unavailable Ahmed, M Mohamed MD Unavailable Unavailable Ahmed, M Mohamed MD Unavailable Unavailable Ahmed, M Mohamed MD Unavailable Unavailable Ahmed, M Mohamed MD Unavailable Unavailable Ahmed, M Mohamed MD Unavailable Unavailable Ahmed, M Mohamed MD Unavailable Unavailable Ahmed, M Mohamed MD Unavailable Unavailable Ahmed, M Mohamed MD Unavailable Unavailable Ahmed, M Mohamed MD Unavailable Unavailable Ahmed, M Mohamed MD Unavailable Unavailable Ahmed, M Mohamed MD Unavailable Unavailable Ahmed, M Mohamed MD Unavailable Unavailable Ahmed, M Mohamed MD Unavailable Unavailable Ahmed, M Mohamed MD Unavailable Unavailable Ahmed, M Mohamed MD Unavailable Unavailable Ahmed, M Mohamed MD Unavailable Unavailable Ahmed, M Mohamed MD Unavailable Unavailable Ahmed, M Mohamed MD Unavailable Unavailable Ahmed, M Mohamed MD Unavailable Unavailable Ahmed, M Mohamed MD Unavailable Unavailable Ahmed, M Mohamed MD Unavailable Unavailable Ahmed, M Mohamed MD Unavailable Unavailable Ahmed, M Mohamed MD Unavailable Unavailable Ahmed, M Mohamed MD Unavailable Unavailable Ahmed, M Mohamed MD Unavailable Unavailable Ahmed, M Mohamed MD Unavailable Unavailable Ahmed, M Mohamed MD Unavailable Unavailable Ahmed, M Mohamed MD Unavailable Unavailable Ahmed, M Mohamed MD Unavailable Unavailable Ahmed, M Mohamed MD Unavailable Unavailable Ahmed, M Mohamed MD Unavailable Unavailable Ahmed, M Mohamed MD Unavailable Unavailable Ahmed, M Mohamed MD Unavailable Unavailable Ahmed, M Mohamed MD Unavailable Unavailable Ahmed, M Mohamed MD Unavailable Unavailable Ahmed, M Mohamed MD Unavailable Unavailable Ahmed, M Mohamed MD Unavailable Unavailable Ahmed, M Mohamed MD Unavailable Unavailable Ahmed, M Mohamed MD Unavailable Unavailable Ahmed, M Mohamed MD Unavailable Unavailable Ahmed, M Mohamed MD Unavailable Unavailable Estevan Rich MD Unavailable Unavailable Estevan Rich MD Unavailable Unavailable Estevan Rich MD Unavailable Unavailable Estevan Rich MD Unavailable Unavailable Estevan Rich MD Unavailable Unavailable Estevan Rich MD Unavailable Unavailable Estevan Rich MD Unavailable Unavailable Estevan Rich MD Unavailable Unavailable Estevan Rich MD Unavailable Unavailable Estevan Rich MD Unavailable Unavailable Estevan Rich MD Unavailable Unavailable Estevan Rich MD Unavailable Unavailable Estevan Rich MD Unavailable Unavailable Estevan Rich MD Unavailable Unavailable Estevan Rich MD Unavailable Unavailable Estevan Rich MD Unavailable Unavailable Estevan Rich MD Unavailable Unavailable Estevan Rich MD Unavailable Unavailable Estevan Rich MD Unavailable Unavailable Estevan Rich MD Unavailable Unavailable Vilma, J Simon Unavailable Unavailable Vilma, J Simon Unavailable Unavailable Vilma, J Simon Unavailable Unavailable Vilma, J Simon Unavailable Unavailable Vilma, J Simon Unavailable Unavailable Vilma, J Simon Unavailable Unavailable Vilma, J Simon Unavailable Unavailable Vilma, J Simon Unavailable Unavailable Deric ERVIN MD Unavailable Unavailable AZIZADeric MD Unavailable Unavailable AZIZADeric MD Unavailable Unavailable AZIZADeric MD Unavailable Unavailable Deric ERVIN MD Unavailable Unavailable Deric ERVIN MD Unavailable Unavailable Deric ERVIN MD Unavailable Unavailable AZIZADeric MD Unavailable Unavailable AZIZADeric MD Unavailable Unavailable AZIZADeric Bradford MD Unavailable Unavailable AZIZADeric Bradford MD Unavailable Unavailable Deric ERVIN MD Unavailable Unavailable AZIZADeric MD Unavailable Unavailable AZIZADeric MD Unavailable Unavailable AZIZADeric MD Unavailable Unavailable Deric ERVIN MD Unavailable Unavailable AZIZA S DAVE ONEILL Unavailable Unavailable Deric ERVIN MD Unavailable Unavailable Deric ERVIN MD Unavailable Unavailable Deric ERVIN MD Unavailable Unavailable AZIZADeric MD Unavailable Unavailable Deric ERVIN MD Unavailable Unavailable AZIZADeric Bradford MD Unavailable Unavailable Deric ERVIN MD Unavailable Unavailable Deric ERVIN MD Unavailable Unavailable Deric ERVIN MD Unavailable Unavailable Deric ERVIN MD Unavailable Unavailable Deric ERVIN MD Unavailable Unavailable Deric ERVIN MD Unavailable Unavailable EMERGENCY, SERVICES MEDICAL Unavailable Unavailable ROSAURA STEPHENS Unavailable Unavailable ANGELA WHELAN Unavailable Unavailable PHYSICIAN, ER Unavailable Unavailable Re-disclosure Warning The records that you are about to access may contain information from federally-assisted alcohol or drug abuse programs. If such information is present, then the following federally mandated warning applies: This information has been disclosed to you from records protected by federal confidentiality rules (42 CFR part 2). The federal rules prohibit you from making any further disclosure of this information unless further disclosure is expressly permitted by the written consent of the person to whom it pertains or as otherwise permitted by 42 CFR part 2. A general authorization for the release of medical or other information is NOT sufficient for this purpose. The Federal rules restrict any use of the information to criminally investigate or prosecute any alcohol or drug abuse patient.The records that you are about to access may contain highly sensitive health information, the redisclosure of which is protected by Article 27-F of the [facility] Public Health law. If you continue you may have access to information: Regarding HIV / AIDS; Provided by facilities licensed or operated by the [facility] Office of Mental Health; or Provided by the [facility] Office for People With Developmental Disabilities. If such information is present, then the following [facility] mandated warning applies: This information has been disclosed to you from confidential records which are protected by state law. State law prohibits you from making any further disclosure of this information without the specific written consent of the person to whom it pertains, or as otherwise permitted by law. Any unauthorized further disclosure in violation of state law may result in a fine or fdc sentence or both. A general authorization for the release of medical or other information is NOT sufficient authorization for further disc losure. Allergies and Adverse Reactions Type Description Substance Reaction Status Data Source(s ) Drug allergy ibuprofen [facility] Penicillins Penicillin R[facility]HIVES [facility] Drug allergy Motrin Motrin on blood thinner Unknown [facility] Drug allergy ibuprofen ibuprofen contraindication with blood thinne r [facility] Drug allergy Penicillins Penicillins RASH/HIVES MO [facility], Family History Family Member Name Family Member Gender Family Member Status Date o f Status Description Data Source(s) Unknown [facility] Male Problem [facility] Encounters Encounter Providers Location Date Indications Data Source(s ) Emergency Attender: Kyree John MD 2020 01:30:00 PM EDT - 12/31/2020 02:12:00 PM EDT [facility] Kidney Stone Patient discharged. Outpatient Attender: TRUDY HINTON [facility] 12/18/2020 01:00:00 PM EDT [facility] Outpatient Attender: FORTUNATO CONTRERAS DO [facility] 12/10/2020 07:30:00 PM EDT [facility] Outpatient Attender: Jerome Paige MDAt tender: Maikel Peralta MDAttender: SONIA BAKER MDAdmitter: Jerome Paige MDConsultant: LEÓN MILADY OUTPATIENT-EMERGENCY 12/06/2020 01:52:00 PM EDT - 12/06/2020 08:20:00 PM EDT [facility] Patient discharged. Emergency Attender: Betty Calvillo .Attender: Elton Dobbs 12/03/2020 02:42:00 PM EDT - 12/03/2020 08:30:00 PM EDT [facility] Unknown [id number] [facility] [address] 11/09/2020 12:00:00 AM EDT eCW1 ([facility]) Referrer: FORTUNATO CONTRERAS DO 11/02/2020 08:21:08 PM EDT [facility] Outpatient Attender: FORTUNATO CONTRERAS DO [facility] 11/01/2020 11:50:00 AM EDT [facility] Referrer: FORTUNATO CONTRERAS 10/29/2020 08:21:08 PM EDT [facility] Referrer: FORTUNATO CONTRERAS DO 10/29/2020 08:21:08 PM EDT [facility] Referrer: FORTUNATO CONTRERAS DO 10/29/2020 08:21:08 PM EDT [facility] Referrer: FORTUNATO CONTRERAS DO 10/29/2020 08:21:08 PM EDT [facility] Outpatient Attender: FORTUNATO CONTRERAS [facility] 10/18/2020 07:00:00 PM EDT [facility] Outpatient Attender: SONIA BAKER MDA dmitter: SONIA BAKER MDConsultant: SONIA BAKER MD OUTPATIENT-ER 10/17/2020 05:55:00 PM EDT - 10/17/2020 08:44:00 PM EDT [facility] Patient discharged. Outpatient Attender: FORTUNATO CONTRERAS DO 10/06/2020 08[facility]50:[facility] Attender: Kyree John MD 2020 08:01:00 AM EDT - 10/06/2020 08:32:00 AM EDT Left Side Pain [facility] Left Side Pain Patient discharged. Outpatient Attender: Gladys Storm 09/29/19 01:35:14 PM EDT - 09/28/2020 01:52:44 PM EDT [facility] ([facility] ) Outpatient Attender: Jerome Mackey tender: EDGARDO CROWE PAAttender: SONIA BAKER MDAdmitter: Jerome Paige MDConsultant: Jerome Paige MDConsultant: EDGARDO DIAZ OUTPATIENT-ER 09/21/2020 06:39:00 PM EDT - 09/21/2020 08:44:00 PM EDT [facility] Patient discharged. Outpatient Attender: SONIA BAKER MDA dmitter: SONIA BAKER MDConsultant: SONIA BAKER MD OUTPATIENT-EMERGENCY 09/17/2020 02:09:00 PM EDT - 09/17/2020 06:12:00 PM EDT [facility] Patient discharged. Outpatient Attender: FORTUNATO DIANE [facility] 09/13/2020 09:00:00 AM EDT [facility] Outpatient Attender: Darlene MOTTP 09/06/2020 11 :01:00 AM EDT [facility] Outpatient Attender: PRAKASH Nesbitt jenny: Sierra Elder DOAdmitter: Sierra Elder DOConsultant: PRAKASH JASSO PA-C OUTPATIENT-UNKNOWN_LOCATION 08/19/2020 04:21:00 PM EDT - 08/19/2020 07:45:00 PM EDT [facility] spital Patient discharged. Outpatient Attender: Emily Smith tender: SONIA BAKER MDAdmitter: SONIA BAKER MDConsultant: OPHELIA-HSCTG TAYLOR OUTPATIENT-EMERGENCY 08/15/2020 02:30:00 PM EDT - 08/15/2020 08:11:00 PM EDT [facility] spital Patient discharged. Outpatient Attender: FORTUNATO CONTRERAS DO [facility] 08/10/2020 06:30:00 PM EDT [facility] Outpatient Attender: Stuart Carolina MDAttender: Other [place] 08/06/2020 08:25:00 AM EDT lab [facility] lab Outpatient Attender: Stuart Carolina MDAttender: Other Other 07/31/2020 03:48:00 PM EDT [facility] 2 of 2 [facility] 2 of 2 Outpatient Attender: FORTUNATO CONTRERAS DO 07/31/2020 03:28:00 PM EDT [facility] Outpatient Attender: TRUDY HINTON [facility] 07/26/2020 02:30:00 PM EDT [facility] Emergency Attender: Estevan Rich MD 021 01:45:00 PM EDT - 07/25/2020 05:35:00 PM EDT [facility] Patient discharged. Outpatient Attender: Maikel Salter DAttender: SONIA SAMUEL MDAdmitter: Maikel Peralta MD OUTPATIENT-ER 07/16/2020 12:14:00 PM EDT - 07/16/2020 02:05:00 PM EDT [facility] Patient discharged. Emergency Attender: MEDICAL EMERGENCY 06/14 11:44:00 AM EDT - 07/02/2020 01:12:00 PM EDT [facility] Emergency Attender: MEDICAL EMERGENCY [id number] 06/14 11:44:00 AM EDT - 07/02/2020 01:12:00 PM EDT [facility] Patient discharged. Outpatient Attender: PRAKASH DIAZ-Raymond jenny: MYLES LEE MDAdmitter: MYLES LEE MDConsultant: PRAKASH JASSO PA-C OUTPATIENT-EMERGENCY 06/28/2020 10: 20:00 AM EDT - 06/28/2020 03:44:00 PM EDT [facility] Patient discharged. Outpatient Attender: FORTUNATO CONTRERAS DO [facility] 06/26/2020 11:00:00 AM EDT [facility] EMERGENCY Attender: Joesph Oliveros MD 2E-ED 06/21 10:41:00 AM EDT - 06/21/2020 03:02:00 PM EDT [facility] Patient discharged. Outpatient Attender: MYLES LEE MDA dmitter: MYLES LEE MDConsultant: MYLES LEE MDConsultant: Emily DIAZ OUTPATIENT-EMERGENCY 06/21/19 07:55:00 AM EDT - 06/20/2020 11:07:00 AM EDT [facility] Patient discharged. Outpatient Attender: FORTUNATO CONTRERAS DO [facility] 06/11/2020 11:30:00 AM EDT [facility] Outpatient Attender: TRUDY [facility] 06/04/2020 02:00:00 PM EDT [facility] Outpatient Attender: TRUDY HINTON [facility] 05/28/2020 01:00:00 PM EDT [facility] Outpatient Attender: FORTUNATO CONTRERAS DO [facility] 05/25/2020 07:30:00 PM EST [facility] Emergency Attender: MCKAYLA JHAVERI MD ES1-ES1 10/2020 12:00:00 PM EST - 05/21/2020 05:14:00 PM EST [facility] Patient discharged. Emergency Attender: BARTOLO ARELLANO MD ES1-ES1 02:52:00 PM EST - 05/16/2020 09:10:00 PM EST [facility] Patient discharged. Emergency Attender: Kyree John MD 2020 10:30:00 AM EST - 05/11/2020 12:47:00 PM EST L Sided ABD Pain [facility] L Sided ABD Pain Patient discharged. Outpatient Attender: MARTI MOTTP 04/17 06:02:12 PM EST - 05/06/2020 07:10:30 PM EST [facility] ([facility] ) Outpatient Attender: TRUDY HINTON [facility] 04/30/2020 02:15:00 PM EST [facility] ([facility]) Outpatient Attender: Sierra Glover jenny: SONIA BAKER MDAdmitter: Sierra Elder DOConsultant: SONIA BAKER MDConsultant: Sierra Elder DO OUTPATIENT-EMERGENCY 04/30/2020 07:01:00 AM EST - 04/30/2020 09:09:00 AM EST [facility] Patient discharged. Outpatient Attender: Simon Esparza 09/2020 01:05:18 PM EST - 04/22/2020 02:18:26 PM EST [facility] ([facility] ) Outpatient Attender: FORTUNATO CONTRERAS DO [facility] 04/13/2020 06:00:00 PM EST [facility] ([facility]) Outpatient Attender: EDGARDO Spencer jenny: Sierra Elder DOAdmitter: Sierra Elder DOConsultant: Sierra Elder DOConsultant: EDGARDO DIAZ OUTPATIENT-EMERGENCY 04/03/2020 01:13:00 PM EST - 04/03/2020 06:28:00 PM [facility] Patient discharged. Emergency Attender: Elton Dobbs 02:25:00 PM EST - 03/29/2020 07:34:00 PM EST [facility]. Emergency ES1-ES1 03/23/2020 01:31:00 PM EST - 021 05:46:00 PM EST [facility] Patient discharged. Outpatient Attender: Sierra Elder DOAtt jenny: SONIA BAKER MDAdmitter: Sierra Elder DOConsultant: SONIA BAKER MDConsultant: Sierra Elder DO OUTPATIENT-EMERGENCY 03/22/2020 06:45:00 AM EST - 03/22/2020 07:55:00 AM [facility] Patient discharged. Emergency Attender: Estevan Rich MD 021 03:31:00 PM EST - 03/19/2020 04:23:00 PM EST Headache/Ear Pain` [facility] Headache/Ear Pain` Patient discharged. Outpatient Attender: OMAYRA JORGE DOAdmitter: OMAYRA JORGE DOConsultant: ROSAURA STEPHENSConsultant: OMAYRA JORGE DO OUTPATIENT-EMERGENCY 03/06/2020 07:47:00 AM EST - 03/06/2020 11:40:00 AM [facility] Patient discharged. Outpatient Attender: EDGARDO Spencer jenny: NANI MOSQUERA MDAdmitter: NANI MOSQUERA MDConsultant: NANI MOSQUERA MDConsultant: MENDY CASTELLONConsultant: EDGARDO DIAZ OUTPATIENT-EMERGENCY 03/03/2020 06:06:00 PM EST - 03/03/2020 09:02:00 PM [facility] Patient discharged. Emergency Attender: Estevan Rich MD 020 01:13:00 PM EST - 02/20/2020 04:45:00 PM EST Abdomen pain [facility] Abdomen pain Patient discharged. Emergency Attender: Estevan Rich MD 020 03:50:00 PM EST - 02/14/2020 06:37:00 PM [facility] Belly Pain [facility] Belly Pain Patient discharged. Outpatient Attender: MYLES LEE MDA ttender: Bernabe Kumar MDAdmitter: MYLES LEE MDConsultant: Desmond Calhoun MDConsultant: MYLES LEE MD OUTPATIENT-EMERGENCY 02/01/2020 06:19:00 AM EST - 02/01/2020 10:57:00 AM [facility] Patient discharged. Outpatient Attender: Sierra Elder DOAdm itter: Sierra Elder DOConsultant: Sierra Elder DO OUTPATIENT-EMERGENCY 01/28/2020 08:44:00 AM EST - 01/28/2020 11:11:00 AM [facility] Patient discharged. Outpatient Attender: OMAYRA JORGE DOAttender: Bernabe Kumar MDAdmitter: OMAYRA JORGE DOConsultant: OMAYRA JORGE DO OUTPATIENT-EMERGENCY 01/23/2020 06:31:00 AM EST - 01/23/2020 09:23:00 AM [facility] Patient discharged. Outpatient Attender: MYLES LEE MDA ttender: Jerome Paige MDAdmitter: Jerome Paige MDConsultant: Desmond Calhoun MDConsultant: MYLES LEE MDConsultant: Jerome Paige MD OUTPATIENT-EMERGENCY 01/20/2020 06:20:00 AM EST - 01/20/2020 11:47:00 AM [facility] Patient discharged. Outpatient Attender: OMAYRA JORGE DOAdmitter: OMAYRA JORGE DOConsultant: DEVONTE Jonessultant: Lico HellerConsultant: OMAYRA JORGE DO OUTPATIENT-EMERGENCY 01/18/2020 02:40:00 PM EST - 01/18/2020 07:12:00 PM [facility] Patient discharged. Outpatient Attender: Sierra Glover jenny: SONIA ABKER MDAdmitter: Sierra Elder DOConsultant: DEVONTE Haltant: Sierra Elder DOConsultant: SONIA BAKER MD OUTPATIENT-EMERGENCY 01/16/2020 06:29:00 AM EST - 01/16/2020 09:26:00 AM [facility] Patient discharged. Emergency Attender: AWA MAGANA ES1-ES1 020 07:40:00 AM EST - 01/15/2020 10:32:00 AM EST [facility] Patient discharged. Outpatient Attender: DAVE ERVIN MDReferrer: Herman saul MD 01/12/2020 09:45:00 AM EDT Right shoulder pain [facility] Right shoulder pain Emergency Attender: ER PHYSICIAN 01/05/2020 08:17:06 AM E DT Lab [facility] Emergency Attender: ANGELA WHELANAttender: ER PHYSICIAN 01/05/2020 07:30:00 AM EDT - 01/05/2020 09:42:00 AM EDT [facility] PAIN [facility] ABD PAIN Patient discharged. Emergency Attender: KATHY COX ES1-ES1 2019 08:11:00 AM EDT - 12/26/2019 11:12:00 AM EDT [facility] Patient discharged. Emergency Attender: KATHY COX ES1-ES1 2019 11:37:00 AM EDT - 12/24/2019 02:10:00 PM EDT [facility] Patient discharged. Emergency Attender: MADIE BELTRAN MD 07/2019 01:02:00 PM EDT - 12/19/2019 04:08:00 PM EDT Abd Pain/Injury [facility] Abd Pain/Injury Patient discharged. Emergency Attender: MADIE BELTRAN MDAttender: Estevan Rich MD 12/14/2019 02:03:00 PM EDT - 12/14/2019 04:57:00 PM EDT [facility] Patient discharged. Emergency Attender: MADIE BELTRAN MD 11/16 12:33:00 PM EDT - 12/14/2019 01:12:00 PM EDT [facility] Patient discharged. Outpatient Attender: Milena Moreno NP 12/13/2019 02:30: 00 PM EDT N92.0 [facility] N92.0 Emergency Attender: Estevan Rich MD 020 11:57:00 AM EDT - 12/02/2019 03:59:00 PM EDT Stomach Pain [facility] Stomach Pain Patient discharged. Outpatient Attender: Milena Moreno NP 12/02/2019 11:02: 00 AM EDT [facility]ab [facility]ab Emergency Attender: Scott Adler MD 11/12 08:53:00 PM EDT - 11/13/2019 11:35:00 PM EDT abd pian/nausea/vomiting [facility] abd pian/nausea/vomiting Patient discharged. Outpatient Attender: Emily Cook PAAt tender: Sierra Elder DOAdmitter: Emily Cook PAConsultant: Sierra Robbinsb DOConsultant: RAMESH COLEMAN MDConsultant: Emily Cook PAConsultant: ONOFRE FITZGERALD DO OUTPATIENT-EMERGENCY 02/16/2019 02:09:00 PM EST - 02/16/2019 06:37:00 PM [facility] Patient discharged. Outpatient Attender: Duglas Duran MD 07/2018 01:27:00 PM EDT - 06/18/2018 02:00:00 PM EDT LOW BACK PAIN LEFT SHOULDER [facility] LOW BACK PAIN LEFT SHOULDER Patient discharged. Functional Status Immunizations Vaccine Date Status Description Data Source(s) New in 2011. IIV4 12/18/2020 01:22:00 PM EDT completed [facility] ([facility]) MMR 09/13/2020 10:36:00 AM EDT completed M EDENT ([facility]) MMR 08/07/2020 03:29:00 PM EDT completed M EDENT ([facility]) COVID-19 VACCINE Pfizer 07/21/2020 12:00:00 AM EDT completed [facility] Vaccine Series Complete: YESThis Data wa s Submitted to [facility] Via [employer]. COVID-19 VACCINE Pfizer 06/30/2020 12:00:00 AM EDT completed [facility] Vaccine Series Complete: NOThis Data was Submitted to [facility] [employer]. Medications Medication Brand Name Start Date Product Form Dose Route Admi nistrative Instructions Pharmacy Instructions Status Indications Reaction Description Data Source(s) tramadol hydrochloride 50 MG Oral Tablet Tramadol HCL 12/18/2020 12:00:00 AM EDT active [facility] ([facility]) topiramate 50 MG Oral Tablet Topiramate 12/10/2020 12:00:00 AM EDT ORAL completed [facility] ([facility]) pregabalin 75 MG Oral Capsule [Lyrica] Lyrica 12/10/2020 12:00:00 AM EDT ORAL active [facility] ([facility]) topiramate 25 MG Oral Tablet Topiramate 11/01/2020 12:00:00 AM EDT ORAL completed [facility] ([facility]) tizanidine 4 MG Oral Capsule Tizanidine HCL 10/18/2020 12:00:00 AM EDT ORAL completed [facility] ([facility]) Sulfamethoxazole 800 MG / Trimethoprim 160 MG Oral Tab let Sulfamethoxazole/Trimethoprim DS 09/13/2020 12:00:00 AM EDT ORAL completed [facility] ([facility]) cetirizine hydrochloride 10 MG Oral Tablet Cetirizine HCL 07/26/2020 12:00:00 AM EDT ORAL active [facility] ([facility]) Acetaminophen 325 MG / Hydrocodone Bitartrate 5 MG Ora l Tablet Hydrocodone-Acetaminophen 07/26/2020 12:00:00 AM EDT completed [facility] ([facility]) Sulfamethoxazole 800 MG / Trimethoprim 160 MG Oral Tab let Sulfamethoxazole/Trimethoprim DS 07/26/2020 12:00:00 AM EDT ORAL completed [facility] ([facility]) Acetaminophen 325 MG / Oxycodone Hydroch loride 5 MG Oral Tablet acetaminophen 325 MG / oxycodone hydrochloride 5 MG Oral Tablet acetaminophen 325 MG / oxycodone hydrochloride 5 MG Oral Tablet 06/28/2020 12:00:00 AM EDT 1 oral completed acetaminophen 325 MG / oxyco done hydrochloride 5 MG Oral Tablet [facility] Clindamycin 300 MG Oral Capsule clindamycin 300 MG Ora l Capsule clindamycin 300 MG Oral Capsule 06/26/2020 12:00:00 AM EDT 300 mg oral ac tive clindamycin 300 MG Oral Capsule [facility] Clindamycin 300 MG Oral Capsule clindamycin 300 MG Ora l Capsule clindamycin 300 MG Oral Capsule 06/26/2020 12:00:00 AM EDT 300 [facility] MG Oral Capsule [facility] Clindamycin 300 MG Oral Capsule Clindamycin HCL 06/26/2020 12:00:00 A M EDT ORAL completed [facility] ([facility]) Methocarbamol 500 MG Oral Tablet Methocarbamol 06/26/2020 12:00:00 AM EDT ORAL completed [facility] ([facility]) Rocephin (Ceftriaxone) 1 Gram 06/04/2020 12:00:00 AM EDT completed [facility]) Medication administered onsite Sulfamethoxazole 800 MG / Trimethoprim 160 MG Oral Tablet [B actrim] Bactrim DS 06/04/2020 12:00:00 AM EDT ORAL completed [facility] ([facility]) 12 HR Loratadine 5 MG / Pseudoephedrine sulfate 120 MG Extended Release Oral Tablet [Claritin-D] Claritin-D 12 Hour 06/04/2020 12:00:00 AM EDT ORAL completed [facility] ([facility]) Clindamycin 150 MG Oral Capsule Clindamycin HCL 05/25/2020 12:00:00 A M EST completed [facility] ([facility]) Acetaminophen 325 MG / Hydrocodone Bitartrate 5 MG Ora l Tablet Hydrocodone Bitartrate/Acetaminophen 05/25/2020 12:00:00 AM EST completed [facility] ([facility]) Baclofen 10 MG Oral Tablet Baclofen 04/30/2020 12:00:00 AM EST ORAL completed [facility] ([facility]) Mirtazapine 15 MG Oral Tablet Mirtazapine 04/13/2020 12:00:00 AM EST ORAL completed [facility] ([facility]) buspirone hydrochloride 10 MG Oral Tablet Buspirone HCL 04/13/2020 12:00:00 AM EST ORAL completed [facility] ([facility]) 0.8 ML Enoxaparin sodium 150 MG/ML Prefilled Syringe [Loveno x] Lovenox 04/13/2020 12:00:00 AM EST active [facility] ([facility]) levocetirizine dihydrochloride 5 MG Oral Tablet Levocetirizi ne Dihydrochloride 04/13/2020 12:00:00 AM EST ORAL completed [facility] ([facility]) venlafaxine 37.5 MG Oral Tablet Venlafaxine HCL 04/13/2020 12:00:00 A M EST ORAL completed [facility] ([facility]) Acetaminophen 325 MG / Hydrocodone Christina trate 5 MG Oral Tablet acetaminophen 325 MG / hydrocodone bitartrate 5 MG Oral Tablet acetaminophen 325 MG / hydrocodone bitartrate 5 MG Oral Tablet 01/18/2020 12:00:00 AM EST 1 oral completed acetaminophen 325 MG / hydrocodone christina trate 5 MG Oral Tablet [facility] Acetaminophen 325 MG / Hydrocodone Christina trate 5 MG Oral Tablet acetaminophen 325 MG / hydrocodone bitartrate 5 MG Oral Tablet acetaminophen 325 MG / hydrocodone bitartrate 5 MG Oral Tablet 01/18/2020 12:00:00 AM EST 1 oral active acetaminophen 325 MG / hydrocodone bitartrate 5 MG Oral Tablet [facility] Acetaminophen 325 MG / Hydrocodone Christina trate 5 MG Oral Tablet acetaminophen 325 MG / hydrocodone bitartrate 5 MG Oral Tablet acetaminophen 325 MG / hydrocodone bitartrate 5 MG Oral Tablet 01/18/2020 12:00:00 AM EST 1 oral active acetaminophen 325 MG / hydrocodone bitartrate 5 MG Oral Tablet [facility] Acetaminophen 325 MG / Hydrocodone Christina trate 5 MG Oral Tablet acetaminophen 325 MG / hydrocodone bitartrate 5 MG Oral Tablet acetaminophen 325 MG / hydrocodone bitartrate 5 MG Oral Tablet 01/18/2020 12:00:00 AM EST 1 oral active acetaminophen 325 MG / hydrocodone bitartrate 5 MG Oral Tablet [facility] Phenazopyridine hydrochloride 200 MG Ora l Tablet phenazopyridine hydrochloride 200 MG Oral Tablet phenazopyridine hydrochloride 200 MG Oral Tablet 01/16 12:00:00 AM EST 200 mg oral active phenazopyridine hydrochloride 200 MG Oral Tablet [facility] Phenazopyridine hydrochloride 200 MG Ora l Tablet phenazopyridine hydrochloride 200 MG Oral Tablet phenazopyridine hydrochloride 200 MG Oral Tablet 01/16 12:00:00 AM EST 200 mg oral completed phenazopyridine hydrochloride 200 MG Oral Tablet [facility] Phenazopyridine hydrochloride 200 MG Ora l Tablet phenazopyridine hydrochloride 200 MG Oral Tablet phenazopyridine hydrochloride 200 MG Oral Tablet 01/16 12:00:00 AM EST 200 mg oral active phenazopyridine hydrochloride 200 MG Oral Tablet [facility] cefpodoxime 100 MG Oral Tablet cefpodoxime 100 MG Oral Table t 01/16/2020 12:00:00 AM EST 100 mg oral completed cefpo doxime 100 MG Oral Tablet [facility] Acetaminophen 325 MG Oral Tablet acetaminophen (TYLENO L) 325 MG tablet 975 mg acetaminophen (TYLENOL) 325 MG tablet 975 mg 01/15/2020 08:50:00 AM EST 975 mg Oral completed 975 mg, Or al, Once, 01/15/20 at 0850, For 1 dose
"Maximum dose of acetaminophen is 4,000 mg from all sources in 24 hours."
[facility] Medication administered onsite Insurance Providers Payer name Policy type / Coverage type Policy ID Covered constitution party ID Covered constitution party's relationship to curtis Policy Curtis Plan Information 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 DEVNO WALTER [id number] SELF [id number] SELF PAY NOTNEEDED Patient is Insured N OTNEEDED MEDICAID [id number] Patient is Insured B [id number] [facility] DIRECT PCP [id number] Patient is Ins ured [id number] PERSONAL PAY UNAVAILABLE SELF UNAVA ILABLE SELF PAY SELF Patient SELF FRANCIS [id number] Patient [id number] 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 DEVON WALTER UNAVAILABLE SELF UNAVAILABLE MEDICAID UNAVAILABLE Patient is Insured UNAVAILABLE FRANCIS [facility] MCAID [id number] Patient is Insured [id number] FRANCIS [id number] SELF [id number] MEDICARE 4 [id number] MEDICARE 4 [id number] TOTAL CARE [id number] Patient is Insured [id number] [facility] [id number] Patient is Insured [id number] FRANCIS MEDICARE ADV [id number] SP [id number] [facility] MED [id number] MEDICAID [id number] Self [id number] MEDICAID [id number] Edita [id number] TOTAL CARE I [id number] Self [id number] GENERIC MEDICAID HMO [id number] Self [id number] Total Care Commercial [id number] Self TOTAL CARE MEDICAID/HARO [id number] Edita [id number] TOTAL CARE MEDICAID [id number] Edita [id number] TOTAL CARE MEDICAID/HARO [id number] Edita [id number] [facility] [place] [id number] SP [id number] MEDICAID [facility] [id number] SP BF [id number] [employer] [place] [id number] SP [id number] TOTAL CARE I [id number] Self [id number] [facility] I [id number] Self BF [id number] [facility] I [id number] Self BF [id number] [facility] [id number] SP BF [id number] [facility] [id number] SP BF [id number] .[facility] [place] [id number] SP [id number] [facility] [id number] SP BF [id number] [facility] [id number] SP BF [id number] MEDICAID [id number] xxxxxxxx [id number] MEDICAID [id number] Edita [id number] [facility] [id number] SP BF [id number] [facility] [id number] SP BF [id number] [facility] [id number] SP BF [id number] FRANCIS I [id number] Self [id number] FRANCIS [id number] FRANCIS [id number] SP [id number] 400 FRANCIS I [id number] Self [id number] FRANCIS I [id number] Self [id number] [place] [id number] Self [id number] FRANCIS [id number] Self [id number] FRANCIS MEDICAID [id number] Edita 7 [id number] FRANCIS MEDICAID [id number] xxxxxxxxxxx 2 [id number] [facility] [place] [id number] S [id number] [facility] [id number] Self [id number] MEDICAID MANAGED CARE GENERIC I Self FRANCIS [id number] SP [id number] 400 SELF PAY FRANCIS [id number] SP [id number] 400 SELF PAY FRANCIS [id number] SP [id number] 400 SELF PAY FRANCIS [id number] SP [id number] 400 SELF PAY [place] Medicaid F [id number] SELF 7 [id number] [place] Medicaid F [id number] SELF 7 [id number] SELF PAY FRANCIS [id number] SP [id number] 400 SELF PAY FRANCIS [id number] SP [id number] 400 FRANCIS [id number] SP [id number] 400 SELF PAY FRANCIS [id number] SP [id number] 400 SELF PAY SELF PAY FRANCIS [id number] SP [id number] 400 SELF PAY FRANCIS [id number] SP [id number] 400 FRANCIS [id number] SP [id number] 400 SELF PAY SELF PAY FRANCIS [id number] SP [id number] 400 FRANCIS [id number] SP [id number] 400 FRANCIS [id number] SP [id number] SELF PAY FRANCIS [id number] SP [id number] SELF PAY FRANCIS [id number] SP [id number] 400 FRANCIS [id number] SP [id number] 400 SELF PAY SELF PAY FRANCIS [id number] SP [id number] 400 FRANCIS [id number] SP [id number] 400 SELF PAY SELF PAY FRANCIS [id number] SP [id number] 400 FRANCIS [id number] SP [id number] 400 FRANCIS [id number] SP [id number] SELF PAY SELF PAY FRANCIS [id number] SP [id number] SELF PAY FRANCIS [id number] SP [id number] SELF PAY FRANCIS [id number] SP [id number] SELF PAY FRANCIS [id number] SP [id number] SELF PAY FRANCIS [id number] SP [id number] FRANCIS [id number] SP [id number] 400 SELF PAY SELF PAY FRANCIS [id number] SP [id number] 400 SELF PAY FRANCIS [id number] SP [id number] 400 FRANCIS [id number] SP [id number] 400 SELF PAY SELF PAY FRANCIS [id number] SP [id number] 400 FRANCIS [id number] SP [id number] 400 SELF PAY SELF PAY FRANCIS [id number] SP [id number] 400 FRANCIS [id number] SP [id number] 400 SELF PAY [facility] [employer] [id number] Self [id number] SELF PAY FRANCIS [id number] SP [id number] 400 FRANCIS [id number] SP [id number] 400 SELF PAY FRANCIS [id number] SP [id number] 400 SELF PAY SELF PAY FRANCIS [id number] SP [id number] 400 FRANCIS [id number] SP [id number] 400 SELF PAY FRANCIS [id number] SP [id number] 400 SELF PAY SELF PAY FRANCIS [id number] SP [id number] 400 SELF PAY FRANCIS [id number] SP [id number] 400 SELF PAY FRANCIS [id number] SP [id number] 400 SELF PAY FRANCIS [id number] SP [id number] 400 SELF PAY FRANCIS [id number] SP [id number] 400 SELF PAY FRANCIS [id number] SP [id number] 400 SELF PAY FRANCIS [id number] SP [id number] 400 SELF PAY FRANCIS [id number] SP [id number] 400 SELF PAY SELF PAY FRANCIS [id number] SP [id number] 400 SELF PAY FRANCIS [id number] SP [id number] 400 FRANCIS [id number] SP [id number] 400 SELF PAY FRANCIS [id number] SP [id number] 400 SELF PAY FRANCIS [id number] SP [id number] 400 SELF PAY FRANCIS [id number] SP [id number] 400 SELF PAY FRANCIS [id number] SP [id number] 400 SELF PAY FRANCIS [id number] SP [id number] 400 SELF PAY FRANCIS [id number] SP [id number] 400 SELF PAY FRANCIS [id number] SP [id number] 400 SELF PAY SELF PAY FRANCIS [id number] SP [id number] 400 FRANCIS [id number] SP [id number] 400 SELF PAY FRANCIS [id number] SP [id number] 400 SELF PAY [place] 1 [id number] 1 [id number] FRANCIS [id number] SP [id number] 400 SELF PAY FRANCIS [id number] SP [id number] 400 SELF PAY FRANCIS [id number] SP [id number] 400 SELF PAY FRANCIS [id number] SP [id number] 400 SELF PAY FRANCIS [id number] SP [id number] 400 SELF PAY FRANCIS [id number] SP [id number] 400 SELF PAY FRANCIS [id number] SP [id number] 400 SELF PAY SELF PAY FRANCIS [id number] SP [id number] 400 FRANCIS [id number] SP [id number] 400 SELF PAY SELF PAY FRANCIS [id number] SP [id number] 400 SELF PAY FRANCIS [id number] SP [id number] 400 FRANCIS [id number] SP [id number] 400 SELF PAY FRANCIS [id number] SP [id number] 400 SELF PAY FRANCIS [id number] SP [id number] 400 SELF PAY SELF PAY FRANCIS [id number] SP [id number] 400 FRANCIS [id number] SP [id number] 400 SELF PAY FRANCIS [id number] SP [id number] 400 SELF PAY FRANCIS [id number] SP [id number] 400 SELF PAY FRANCIS [id number] SP [id number] 400 SELF PAY FRANCIS [id number] SP [id number] 400 SELF PAY FRANCIS [id number] SP [id number] 400 SELF PAY SELF PAY FRANCIS [id number] SP [id number] 400 SELF PAY FRANCIS [id number] SP [id number] 400 SELF PAY FRANCIS [id number] SP [id number] 400 SELF PAY SELF PAY FRANCIS [id number] SP [id number] 400 [place] MEDICAID [id number] 0 [id number] FRANCIS [id number] SP [id number] 400 SELF PAY SELF PAY FRANCIS [id number] SP [id number] 400 FRANCIS [id number] SP [id number] 400 SELF PAY FRANCIS [id number] SP [id number] 400 FRANCIS [id number] SP [id number] 400 SELF PAY SELF PAY FRANCIS [id number] SP [id number] 400 SELF PAY FRANCIS [id number] SP [id number] 400 SELF PAY FRANCIS [id number] SP [id number] 400 FRANCIS [id number] 400 SELF PAY FRANCIS [id number] SP [id number] 400 SELF PAY SELF PAY FRANCIS [id number] SP [id number] 400 [id number] [facility] HEA [id number] S [id number] [place] [place] [id number] S [id number] [facility] [place] [id number] P [id number] [place] [place] - [id number] 18 [id number] [facility] [place] [id number] S [id number] [facility] MEDICARE [id number] Edita 10 [id number] [place] [facility] [place] Commercial [id number] Self [id number] [place] [id number] P [id number] TOTAL CARE/TODAYS [facility] [id number] P [id number] UNAVAILABLE UNAVAILA BLE MEDICAID HEA [id number] S [id number] [facility] [id number] SP BF [id number] MEDICAID PI PI [facility] [id number] SP [id number] [facility]ARP HE[facility] C[facility] OPTIONS [facility] [id number] SP BF [id number] [employer] O [id number] S [id number] FRANCIS MEDICAID PI PI [facility] [id number] SP [id number] TOTAL CARE MEDICAID/HARO PI PI [facility] O [id number] S BF [id number] [facility] [id number] SP [id number] MEDICAID [id number] SP [id number] [facility] O [id number] S BF [id number] SELF PAY ONLY [id number] SP [id number] [facility] O [id number] S BF [id number] [facility] [id number] BF [id number] SELF PAY ONLY [id number] SP [id number] TODAYS OPTIONS MCR [id number] SP B [id number] HMO/MEDICAID [id number] P [id number] T SELFPAY P WALTER PENDING [id number] P [id number] WALTER PENDING [id number] P [id number] [facility] [id number] SP BF [id number] MEDICARE [id number] Patient is Insured [id number] MEDICARE [id number] Patient is Insured [id number] [facility] HEA [id number] S B [id number] TOTAL CARE HEA [id number] S [id number] TOTAL CARE [id number] SP [id number] SELF PAY UNAVAILABLE SP UNAVAILA BLE TOTAL CARE UNAVAILABLE SP UNAVAIL ABLE SELF PAY - PENDING UNAVAILABLE SP UNAVAILABLE TOTAL CARE W [id number] S [id number] Medicaid Medicaid [id number] Self Total Care Medicaid UNAVAILABLE UNAVAILABLE Total Care Medicaid [id number] Medicaid ### >07/29/11 Medicaid [id number] Self [facility] Part B [id number] Self TODAY'S OPTIONS OF [place] [id number] SP [id number] CITIZEN OF [place] TODAYS OPT [id number] SP [id number] MEDICAID GME W [id number] S [id number] T [place] U[place] UNAVAILABLE TOTAL CARE W UNAVAILABLE S UNAVAIL ABLE TOTAL CARE MEDICAID UNAVAILABLE [place] UNAVAILABLE MEDICAID W [id number] S [id number] [employer]LLCARE MEDICARE [id number] Edita 10 [id number] SELF PAY 5 UNAVAILABLE 1 UNAVAILA BLE SELFPAY 5 UNAVAILABLE [id number] 1 [place] BLE MEDICAID 3 [id number] 1 [id number] [place]ANCIS MEDICARE 11 [id number] 1 [id number] FRANCIS MEDICAID 2 [id number] 1 [id number] [place] 3 [id number] 1 [id number] SELF PAY 2 UNAVAILABLE 1 UNAVAILA BLE WELLCARE MEDICARE 11 [id number] 1 [id number] WELLCARE [facility] PLANS O [id number] S [id number] MEDICAID W [id number] S [id number] MEDICAID REF AMBULAT W [id number] S [id number] WELLCARE UNAVAILABLE S [place] BLE MEDICAID REF AMBULAT W [id number] S [id number] [facility] MEDICARE 11 [id number] 1 [id number] Francis Medicare Advantage C1 [id number] FRANCIS/MEDICAID 2 [id number] [facility] MEDICARE 11 [id number] WELLCARE-MEDICARE 11 [id number] Medicaid [id number] [place] [id number] SELF PAY 2 [place]ABLE [id number] [place] 3 [id number] T [place] MEDICARE 11 [id number] WELLCARE W [id number] S [id number] WELLCARE HMO O [id number] S [id number] WELLCARE W [id number] S [id number] MEDICARE OUTPATIENT M [id number] S [id number] WELLCARE HLTH PLANS O [id number] S [id number] MEDICAID W [id number] S [id number] WELL CARE W [id number] S [id number] [place] M/M W [id number] S [id number] WELLCARE HLTH PLANS O [id number] S [id number] SELF PAY 2 UNAVAILABLE [id number] [place] B[place] MEDICAID O [id number] S [id number] [place] O [id number] S [id number] WELLCARE HLTH PLANS O [id number] S [id number] WELLCARE HLTH PLANS O [id number] S [id number] PCP [facility] O [id number] S [id number] [place] W [id number] S [id number] [place] 3 [id number] T [place] W [id number] S [id number] [facility] O [id number] S [id number] [place] O [id number] S [id number] MEDICARE OUTPATIENT M [id number] S [id number] WELL CARE PCP W [id number] S [id number] WELLCARE MEDICARE 11 [id number] FRANCIS MEDICARE 11 [id number] 1 [id number] [place] [id number] O UNAVAILABLE [place]NA[place]A BLE O [id number] O [id number] FRANCIS [id number] Problems, Conditions, and Diagnoses Code Display Name Description Problem Type Effective Dates Data Source(s) Encounter for observation fo r other suspected diseases and conditions ruled out Z - Encounter for observation for o ther suspected diseases and conditions ruled out Diagnosis 12/31/2020 01:30:00 PM EDT [facility] h R10.9 Unspecified abdominal pain R10.9 - Unspecified abdomin al pain Diagnosis 12/03/2020 02:42:00 PM EDT [place] R53.83 Other fatigue R53.83 - Other fatigue Diagnosis 09/14 08:50:00 AM EDT [employer] R10.32 Left lower quadrant pain R10.32 - Left lower quadrant pain Diagnosis 10/06/2020 08:01:00 AM EDT [place] D59.5 Paroxysmal nocturnal hemoglobinuria [Mar chiafava-Micheli] D59.5 - Paroxysmal nocturnal hemoglobinuria [Marchiafava-Micheli] Diagnosis 08/06/2020 08:25:00 AM EDT [place] I27.82 Chronic pulmonary embolism I27.82 - Chronic pulmonary embolism Diagnosis 08/06/2020 08:25:00 AM EDT [employer] D50.9 Iron deficiency anemia, unspecified D50. 9 - Iron deficiency anemia, unspecified Diagnosis 07/31/2020 03:48:00 PM EDT [employer] Z23 Encounter for immunization Z23 - Encounter for immuniz ation Diagnosis 07/31/2020 03:28:00 PM EDT [facility] KIDNEY STONE PAIN KIDNEY STONE PAIN Diagnosis 07/02/2020 11:44:00 AM EDT [facility] Flank Pain Flank Pain Diagnosis 07/02/2020 11:44:00 AM ED T [facility] Z91.19 Patient's noncompliance with other medic al treatment and regimen Patient's noncompliance with other medical treatment and regimen Diagnosis 07/02/2020 11:44:00 AM EDT [facility] G89.29 Other chronic pain Other chronic pain Diagnosis 11:44:00 AM EDT [facility] R10.9 Unspecified abdominal pain Unspecified abdominal pain Diagnosis 07/02/2020 11:44:00 AM EDT [facility] Z13.9 Encounter for screening, unspecified Encounter f or screening, unspecified Diagnosis 07/02/2020 11:44:00 AM EDT [facility] R10.9 Unspecified abdominal pain Unspecified abdominal pain Diagnosis 06/21/2020 10:41:00 AM EDT [facility] Flank Pain Flank Pain Diagnosis 06/21/2020 10:41:00 AM ED T [facility] kidney stone kidney stone Diagnosis 06/21/2020 10:34:00 A M EDT [facility] R10.9 Unspecified abdominal pain Unspecified abdominal pain Diagnosis 05/21/2020 03:44:32 PM EST [facility] R10.31 Right lower quadrant pain R10.31 - Right lower quadran t pain Diagnosis 03/29/2020 02:25:00 PM EST [employer] R51.9 R51.9 - Headache, unspecified R51.9 - Headache, unspec ified Diagnosis 03/19/2020 03:31:00 PM EST [employer] H92.02 Otalgia, left ear H92.02 - Otalgia, left ear Diagnosis 02/14/2020 03:50:00 PM [facility] R31.9 Hematuria, unspecified R31.9 - Hematuria, unspecified Diagnosis 02/14/2020 03:50:00 PM EST [employer] M25.511 Pain in right shoulder M25.511 - Pain in right shoulde r Diagnosis 01/12/2020 09:45:00 AM EDT [facility] N10 Acute pyelonephritis Acute pyelonephritis Diagnosis 12/26/2019 08:45:36 AM EDT [facility] S39.91XA Unspecified injury of abdomen, initial e ncounter S39.91XA - Unspecified injury of abdomen, initial encounter Diagnosis 12/19/2019 01:02:00 PM EDT [facility] R51 Headache R51 - Headache Diagnosis 12/14/2019 02:03:00 P M EDT [facility] R11.2 Nausea with vomiting, unspecified R11.2 - Nausea with vomiting, unspecified Diagnosis 12/02/2019 11:57:00 AM EDT [facility] R10.13 Epigastric pain R10.13 - Epigastric pain Diagnosis 12/02/2019 11:57:00 AM EDT [facility] R10.11 Right upper quadrant pain R10.11 - Right upper quadran t pain Diagnosis 11/13/2019 08:53:00 PM EDT [facility] [id number] Drug seeking behavior Drug seeking behavior Problem 10/18/2020 12:00:00 AM EDT [facility]) Note: PER URGENT CARE [id number] Cyst of left ovary Cyst of left ovary Problem 09/13/2020 12:00:00 AM EDT [facility] ([facility]) Note: left ovary [id number] Persistent insomnia Persistent insomnia Problem 0 04/15/2020 12:00:00 AM EST [facility]) [id number] Generalized anxiety disorder Generalized anxiety disor rufino Problem 04/15/2020 12:00:00 AM EST [facility]) [id number] Major depressive disorder Major depressive disorder Pr oblem 04/13/2020 12:00:00 AM EST [facility]) [id number] H/O: pulmonary embolus H/O: pulmonary embolus Problem 04/13/2020 12:00:00 AM EST [facility] ([facility]) Note: ~ 2017 Surgeries/Procedures Procedure Description Date Indications Data Source(s) Brief Emotional/Behav Assessment W/ Scoring Doc Per Standard Inst 12/18/2020 12:00:00 AM EDT [facility]) OFFICE OUTPATIENT VISIT 15 MINUTES 12/18/2020 12:00:00 AM EDT [facility]) OFFICE OUTPATIENT VISIT 15 MINUTES 12/10/2020 12:00:00 AM EDT [facility]) OFFICE OUTPATIENT VISIT 25 MINUTES 11/01/2020 12:00:00 AM EDT [facility]) OFFICE OUTPATIENT VISIT 15 MINUTES 10/18/2020 12:00:00 AM EDT [facility]) Screening Hearing Test 09/13/2020 12:00:00 AM EDT [facility]) Electrocardiogram Complete 09/13/2020 12:00:00 AM EDT [facility]) Visual Screening Test 09/13/2020 12:00:00 AM EDT [facility]) OFFICE OUTPATIENT VISIT 25 MINUTES 09/13/2020 12:00:00 AM EDT [facility] ([facility]) PERIODIC PREVENTIVE MED EST PATIENT 18-39 YRS 09/14/19 12:00:00 AM EDT [facility]) OFFICE OUTPATIENT VISIT 15 MINUTES 08/10/2020 12:00:00 AM EDT [facility]) OFFICE OUTPATIENT VISIT 25 MINUTES 07/26/2020 12:00:00 AM EDT [facility]) OFFICE OUTPATIENT VISIT 25 MINUTES 07/26/2020 12:00:00 AM EDT [facility]) OFFICE OUTPATIENT VISIT 15 MINUTES 06/26/2020 12:00:00 AM EDT [facility]) CT ABDOMEN & PELVIS W/O CONTRAST MATERIAL <td>CT STONE PROTOCOL (A/P WO CONTRAST)</td><td>STAT</td><td>06/21/2020 12:07 PM EDT</td><td></td><td> </td> 06/21/2020 12:07:19 PM EDT [facility] URINALYSIS W/MICROSCOPIC & CULTURE IF INDICATED <td><c ontent ID="[id number]">URINALYSIS W/MICROSCOPIC & CULTURE IF INDICATED</content></td><td>STAT</td><td>06/21/2020 11:52 AM EDT</td><td></td><td><paragraph styleCode="header">Results for this procedure are in the <content styleCode="[id number]">results section</content>.</paragraph></td> 06/21/2020 11:52:00 AM EDT [facility] CBC AND DIFFERENTIAL <td>CBC AND DIFFERENTIAL</td ><td>STAT</td><td>06/21/2020 11:52 AM EDT</td><td></td><td> </td> 06/21/2020 11:52:00 AM EDT [facility] GONADOTROPIN CHORIONIC QUANTITATIVE <td>HCG, QUANTITAT ANDRES, </td><td>STAT</td><td>06/21/2020 11:52 AM EDT</td><td></td><td> </td> 06/21/2020 11:52:00 AM EDT [facility] COMPREHENSIVE METABOLIC PANEL <td>COMPREHENSIVE METABO LIC PANEL</td><td>STAT</td><td>06/21/2020 11:52 AM EDT</td><td></td><td> </td> 06/21/2020 11:52:00 AM EDT [facility] OFFICE OUTPATIENT VISIT 25 MINUTES 06/11/2020 12:00:00 AM EDT [facility] Brief Emotional/Behav Assessment W/ Scoring Doc Per Standard [facility] 06/04/2020 12:00:00 [facility] Brief Emotional/Behav Assessment W/ Scoring Doc Per Standard [facility] 06/04/2020 12:00:00 AM EDT [facility] Admin Of Inj (Therapeutic Phrophylactic Or Diagnostic Subq I nj 06/04/2020 12:00:00 AM EDT [facility]) OFFICE OUTPATIENT VISIT 25 MINUTES 06/04/2020 12:00:00 AM EDT [facility]) OFFICE OUTPATIENT VISIT 25 MINUTES 06/04/2020 12:00:00 AM EDT [facility] Brief Emotional/Behav Assessment W/ Scoring Doc Per Standard [facility] 05/28/2020 12:00:00 AM EDT [facility]) OFFICE OUTPATIENT VISIT 25 MINUTES 05/28/2020 12:00:00 AM EDT [facility]) OFFICE OUTPATIENT VISIT 25 MINUTES 05/28/2020 12:00:00 AM EDT [facility]) OFFICE OUTPATIENT VISIT 15 MINUTES 05/25/2020 12:00:00 AM EST [facility]) POCT CLINITEK URINE DIPSTICK <td>POCT CLINITEK URINE DIPSTICK</td><td>Routine</td><td>05/21/2020 4:14 PM EST</td><td></td><td> </td> 05/21/2020 09:14:00 PM EST [facility] POCT CLINITEK URINE HCG <td>POCT CLINITEK URINE HCG</td><td>Routine</td><td>05/21/2020 3:51 PM EST</td><td></td><td> </td> 05/21/2020 08:51:00 PM EST [facility] POCT CLINITEK URINE HCG <td>POCT CLINITEK URINE HCG</td><td>Routine</td><td>05/16/2020 8:07 PM EST</td><td></td><td> </td> 05/17/2020 01:07:00 AM EST [facility] URNLS DIP STICK/TABLET RGNT AUTO W/O MICROSCOPY <td>UR INALYSIS W/O MICRO</td><td>STAT</td><td>05/16/2020 8:05 PM EST</td><td></td><td> </td> 05/17/2020 01:05:00 AM EST [facility] BLOOD COUNT COMPLETE AUTO&AUTO DIFRNTL WBC COUNT <td>C BC AND DIFFERENTIAL</td><td>STAT</td><td>05/16/2020 8:05 PM EST</td><td></td><td> </td> 05/17/2020 01:05:00 AM EST [facility] MAGNESIUM <td>MAGNESIUM</td><td>STAT</ td><td>05/16/2020 8:05 PM EST</td><td></td><td> </td> 05/17/2020 01:05:00 AM EST [facility] COMPREHENSIVE METABOLIC PANEL <td>COMPREHENSIVE METABO LIC PANEL</td><td>STAT</td><td>05/16/2020 8:05 PM EST</td><td></td><td> </td> 05/17/2020 01:05:00 AM EST [facility] OFFICE OUTPATIENT VISIT 15 MINUTES 04/30/2020 12:00:00 AM EST [facility] OFFICE OUTPATIENT VISIT 15 MINUTES 04/30/2020 12:00:00 AM EST [facility]) OFFICE OUTPATIENT NEW 30 MINUTES 04/13/2020 12:00:00 A M EST [facility]) POCT CLINITEK URINE HCG <td>POCT CLINITEK URINE HCG</td><td>Routine</td><td>01/15/2020 9:38 AM EST</td><td></td><td> </td> 01/15/2020 02:38:00 PM EST [facility] URINE CULTURE HOLD SPECIMEN <td>URINE CULTURE HOLD SPECIMEN</td><td>STAT</td><td>01/15/2020 9:37 AM EST</td><td></td><td> </td> 01/15/2020 02:37:00 PM EST [facility] URNLS DIP STICK/TABLET RGNT AUTO W/O MICROSCOPY <td>UR INALYSIS W/O MICRO</td><td>STAT</td><td>01/15/2020 9:37 AM EST</td><td></td><td> </td> 01/15/2020 02:37:00 PM EST [facility] BLOOD COUNT COMPLETE AUTO&AUTO DIFRNTL WBC COUNT <td>C BC AND DIFFERENTIAL</td><td>STAT</td><td>01/15/2020 8:50 AM EST</td><td></td><td> </td> 01/15/2020 01:50:00 PM EST [facility] LIPASE <td>LIPASE</td><td>STAT</td> <td>01/15/2020 8:50 AM EST</td><td></td><td> </td> 01/15/2020 01:50:00 PM EST [facility] COMPREHENSIVE METABOLIC PANEL <td>COMPREHENSIVE METABO LIC PANEL</td><td>STAT</td><td>01/15/2020 8:50 AM EST</td><td></td><td> </td> 01/15/2020 01:50:00 PM EST [facility] Results ID Date Data Source [id number] 12/12/2020 02:57:20 PM [facility]: [facility] (SIGNED)Full Name: Kade JONES Date: 1985Visit ID: [id number] Record Number: [id number]: 35YSex: FemaleRoom Location: ER ROOMSBed Location: ER BD HF4Wnvd of Service: 12/06/2020 17:50Creation Date: 12/06/2020 17:50Created By: MAIKEL PERALTAPrimary Care Physician: FORTUNATO CONTRERASTime patient first seen: 1750 Informant: PatientHPI Chief Complaint: I have left flank pain radiating to my abdomen since yesterdayHPI onset: 2 daysHPI duration: 2 daysHPI timing: Still presentHPI severity score 3HPI context: A 35-year-old female with past medical history listed below, presents to the ED with left flank pain rating around to the left lower abdominal pain since yesterday. She reports normal intake of food and fluids patient also reports normal BM and urine pattern.HPI quality: Achy painReview of SystemsAll systems reviewed and negative except as noted in HPIAll systems reviewed and negative except as noted in HPI or noted belowED Triage Note: pt reports pain in left flank region radiating to lower abd. began yesterday. hx kidney stones, no fever/chills [АНДРЕЙ HEWITT 12/06/20 14:32]Past Medical/Surgical HistoryPast medical/surgical history reviewedFull problems and procedures listProblem;Associated ICD-10-CM Code;Status;OnsetAppendectomy;None Associated;Completed;UnknownAsthma;None Associated;Active;UnknownCholecystectomy;None Associated;Completed;Unkn ownHypercholesterolemia;None Associated;Active;UnknownHome MedicationsHome medications reviewedcetirizine, 10 milligram orally daily Enoxaparin, 120 milligram subcutaneously every 12 hours Multivitamins Tablet, 1 tablet orally daily AllergiesAllergies reviewedLast Verified By: АНДРЕЙ HEWITT RN on 12/06/2020 14:33Motrin(on blood thinner), Penicillin V(Rash) Family HistoryFamily history reviewedMother (alive) 43Y Benign essential hypertension, Father 50Y ( [place] ) Social history reviewedVital SignsVital signs reviewedMaximum temperature within the last 24 hours: 98.7 FDate/time of maximum temperature: 12/06/2020 14:30Most recent vital signsBP: 149/106 12/06/2020 14:30 Pulse: 105 12/06/2020 14:30 Temp: 98.7 F 12/06/2020 14:30 Resp: 20 12/06/2020 14:30 O2 Sat: 99.0%(Room Air) 12/06/2020 14:30 Calculated BMI: 52.8 12/06/2020 14:30 Pain score 3Admission height (inches): 61Admission weight (kgs): 125.25Triage Vital SignsTemp: 98.7F 12/06/2020 14:30 Pulse: 105 bpm 12/06/2020 14:30 Respirations: 20 12/06/2020 14:30 Blood Pressure: 149/106 mmHg 12/06/2020 14:30 O2Sat: 99 % 12/06/2020 14:30 Height: 61 in 12/06/2020 14:30 Weight: 125.25 kg 12/06/2020 14:30 Calculated BMI: 52.8 12/06/2020 14:30 Physical ExamConst: appears stated age, comments: Appearing, comments: -Ambulatory, alert, oriented, well-developed, well-nourished with stable vitals and good mentationEyes: within normal limitsHENT: Within normal limitsNeck: Within normal limits, No bruitsCVS: Within normal limits, Irregular rate and rhythmResp: Within normal limits, Clear to auscultation bilaterally, No wheezes/rales/rhonchi, comments: Breathing easy with oxygen saturation within normal limits on room airGI: Within normal limits, Non-tender, Normal bowel sounds, No guarding/rebound/tenderness, No organomegalyGI comments: Obese, soft and nontender on light palpationMusc: Within normal limits, Joints normal, Range of motion normalExtrem: Within normal limits, No clubbing/cyanosis/edema, No calf tendernessNeuro: Altered mental statusNeuro: Within normal limits, No lateralizing deficitsSkin: Within normal limits, No rash, No bruising, comments: Equally warm, dry, intact no ecchymosis no erythema no open wounds no bleedingInitial impression: Renal colic? OrdersStart Date;Description;Frequency;Ordered By;Status12/06/2020;CULTURE URINE ;Once;MAIKEL PERALTA;Dates 12/06/2020;ED INITIATE ABDOMINAL PAIN PATHWAY ;Once;MAIKEL PERALTA;Dates 12/06/2020;IV - PERIPHERAL - INSERT & MAINTAIN ;Once;MAIKEL PERALTA;Dates 12/06/2020;AMYLASE ;Once;MAIKEL PERALTA;Dates 12/06/2020;CBC DIFF ;Once;MAIKEL PERALTA;Dates 12/06/2020;COMPREHENSIVE PANEL ;Once;MAIKEL PERALTA;Dates 12/06/2020;LIPASE ;Once;MAIKEL PERALTA;12/06/2020;PT/INR ;Once;MAIKEL PERALTA.;12/06/2020;PTT ;Once;MAIKEL PERALTA.;D ates 12/06/2020;CULTURE URINE ;Once;MAIKEL PERALTA;12/06/2020;URINALYSIS ROUTINE ;Once;MAIKEL PERALTA;12/06/2020;URINE MICROSCOPIC ;Once;MAIKEL PERALTA;12/06/2020;ED INITIATE ABDOMINAL PAIN PATHWAY ;Once;MAIKEL PERALTA;12/06/2020;IV - PERIPHERAL - INSERT & MAINTAIN ;Once;MAIKEL PERALTA;12/06/2020;RENAL/BLADDER U/S COMPLETE ;Once;MAIKEL PERALTA;12/06/2020;AMYLASE ;Once;MAIKEL PERALTA;12/06/2020;CBC DIFF ;Once;MAIKEL PERALTA;12/06/2020;COMPREHENSIVE PANEL ;Once;MAIKEL PERALTA;12/06/2020;LIPASE ;Once;MAIKEL PERALTA;12/06/2020; TEST - SERUM ;Once;MAIKEL PERALTA;12/06/2020;PT/INR ;Once;MAIKEL PERALTA;12/06/2020;PTT ;Once;P MAIKEL RIVERS;12/06/2020;Point of Care URINE DIPSTICK ;Once;MAIKEL PERALTA;12/06/2020;URINALYSIS ROUTINE ;Once;MAIKEL PERALTA;12/06/2020;ONDANSETRON HCL (PF) 4 MG/2 ML IVP ;ED - ONE TIME ONLY;MAIKEL PERALTA;Inactive12/07/2020;ED-NPO ;Meals;MAIKEL PERALTA;ActiveLaboratory resultsLab Results for the past 24 hoursOrder;Test;Value;Reference Range;Comme nts;Status;CollectionAMYLASE;AMYLASE;45;(25-125 U/L);;Final Result ;12/06/2020 19:00:00CBC DIFF;WBC;9.7;(4.8-10.8 K/uL);;Final Result ;12/06/2020 19:00:00CBC DIFF;RED BLOOD CELL;4.08 L;(4.20-5.40 M/uL);;Final Result ;12/06/2020 19:00:00CBC DIFF;HEMOGLOBIN;13.5;(12.0-16.0 gm/dL);;Final Result ;12/06/2020 19:00:00CBC DIFF;HEMATOCRIT;39.0;(36.0-48.0 %);;Final Result ;12/06/2020 19:00:00CBC DIFF;MCV;95.5;(80.0- 100.0 fL);;Final Result ;12/06/2020 19:00:00CBC DIFF;MCHC;34.7;(30.0-36.5 %);;Final Result ;12/06/2020 19:00:00CBC DIFF;MCH;33.1;(27.0-34.0 pg);;Final Result ;12/06/2020 19:00:00CBC DIFF;RDW;12.2;(11.0-15.0 %);;Final Result ;12/06/2020 19:00:00CBC DIFF;PLATELET COUNT;266;(130- 450 K/uL);;Final Result ;12/06/2020 19:00:00CBC DIFF; MPV;7.0;(6.0-12.0 fL);;Final Result ;12/06/2020 19:00:00CBC DIFF;NEUTROPHIL;65;(37-80 %);;Final Result ;12/06/2020 19:00:00CBC DIFF;LYMPHOCYTE;27;(10-50 %);;Final Result ;12/06/2020 19:00:00CBC DIFF;MONOCYTE;6;(0-12 %);;Final Result ;12/06/2020 19:00:00CBC DIFF;EOSINOPHIL;1;( < =8 %);;Final Result ;12/06/2020 19:00:00CBC DIFF;BASOPHIL;0;( < =3 %);;Final Result ;12/06/2020 19:00:00CBC DIFF;DEAN#;6.3;(1.8-8.6 K/uL);;Final Result ;12/06/2020 19:00:00CBC DIFF;LYMPHOCYTE #;2.6;(0.5-5.0 K/uL);;Final Result ;12/06/2020 19:00:00CBC DIFF;MONOCYTE #;0.6;(0.0-1.3 K/uL);;Final Result ;12/06/2020 19:00:00CBC DIFF;EOSINOPHIL #;0.1;(0.0-0.9 K/uL);;Final Result ;12/06/2020 19:00:00CBC DIFF;BASOPHIL #;0.0;(0.0-0.3 K/ul);;Final Result ;12/06/2020 19:00:00COMPREHENSIVE PANEL;SODIUM;137;(136-145 mmol/L);;Final Result ;12/06/2020 19:00:00COMPREHENSIVE PANEL;POTASSIUM;3.7;(3.5-5.2 mmol/L);;Final Result ;12/06/2020 19:00:00COMPREHENSIVE PANEL;CHLORIDE;104;(100-108 mmol/L);;Final Result ;12/06/2020 19:00:00COMPREHENSIVE PANEL;CARBON DIOXIDE;21;(21-32 mmol/L);;Final Result ;12/06/2020 19:00:00COMPREHENSIVE PANEL;GLUCOSE;86;(70-100 mg/dL);;Final Result ;12/06/2020 19:00:00COMPREHENSIV E PANEL;BUN;13;(7-21 mg/dL);;Final Result ;12/06/2020 19:00:00COMPREHENSIVE PANEL;Creatinine;0.8;(0.6-1.3 mg/dL);;Final Result ;12/06/2020 19:00:00COMPREHENSIVE PANEL;CALCIUM;10.2;(8.5- 10.8 mg/dL);;Final Result ;12/06/2020 19:00:00COMPREHENSIVE PANEL;GFR; > 60;;;Final Result ;12/06/2020 19:00:00COMPREHENSIVE PANEL;TOTAL BILIRUBIN;0.5;(0.0-1.2 mg/dL);;Final Result ;12/06/2020 19:00:00COMPREHENSIVE PANEL;TOTAL PROTEIN;7.4;(6.4-8.2 gm/dL);;Final Result ;12/06/2020 19:00:00COMPREHENSIVE PANEL;ALBUMIN;4.1;(3.4- 4.8 gm/dL);;Final Result ;12/06/2020 19:00:00COMPREHENSIVE PANEL;ALK PHOS;104;(40-150 U/L);;Final Result ;12/06/2020 19:00:00COMPREHENSIVE PANEL;ALT(SGPT);47;(0-55 U/L);;Final Result ;12/06/2020 19:00:00COMPREHENSIVE PANEL;AST (SGOT);40 H;(5-37 U/L);;Final Result ;12/06/2020 19:00:00LIPASE;LIPASE;20;(8-78 U/L);;Final Result ;12/06/2020 19:00:00PREGNANCY TEST - SERUM; TEST - SERUM;NEGATIVE;;;Final Result ;12/06/2020 19:00:00PT/INR;PROTIME;12.3;(9.4-12.4 sec);;Final Result ;12/06/2020 19:00:00PT/INR;INR;1.1;;;Final Result ;12/06/2020 19:00:00PTT;PTT;32.0;(25.6-36.4 sec);;Final Result ;12/06/2020 19:00:00URINALYSIS ROUTINE;Dipstick Urine Color;LUIS M;;;Final Result ;12/06/2020 18:59:10URINAL YSIS ROUTINE;Dipstick Urine Turbidity;HAZY;;;Final Result ;12/06/2020 18:59:10URINALYSIS ROUTINE;Dipstick Specific [place];1.020;(1.000-1.030);;Final Result ;12/06/2020 18:59:10URINALYSIS ROUTINE;Dipstick Urine pH;5.0;(5.0-8.0);;Final Result ;12/06/2020 18:59:10URINALYSIS ROUTINE;Dipstick Urine Leucoesterase;2 ;;;Final Result ;12/06/2020 18:59:10URINALYSIS ROUTINE;Dipstick Urine Nitrate;NEGATIVE;;;Final Result ;12/06/2020 18:59:10URINALYSIS ROUTINE;Dipstick Urine Pro tein;100 [ 2 ];;;Final Result ;12/06/2020 18:59:10URINALYSIS ROUTINE;Dipstick Urine Glucose;NORMAL;;;Final Result ;12/06/2020 18:59:10URINALYSIS ROUTINE;Dipstick Urine Ketone;NEGATIVE;;;Final Result ;12/06/2020 18:59:10URINALYSIS ROUTINE;Dipstick Urine Urobilinogen;NORMAL;;;Final Result ;12/06/2020 18:59:10URINALYSIS ROUTINE;Dipstick Urine Bili;NEGATIVE;;;Final Result ;12/06/2020 18:59:10URINALYSIS ROUTINE;Dipstick Urine Hgb;3 ;;;Final Result ;12/06/2020 18:59:10URINE MICROSCOPIC;Microscopic Urine WBC;5- 10;;;Final Result ;12/06/2020 18:59:10URINE MICROSCOPIC;Microscopic Urine RBC;5-10;;;Final Result ;12/06/2020 18:59:10URINE MICROSCOPIC;Microscopic Urine BACT;MANY;;;Final Result ;12/06/2020 18:59:10URINE MICROSCOPIC;Microscopic Urine Epi;MODERATE;;;Final Result ;12/06/2020 18:59:10Ultrasound results: 12/06/2020 8:18 PM~~RENAL ULTRASOUND~~CLINICAL INFORMATION: DISORDER OF KIDNEY AND URETER, UNSPECIFIED, -- DISORDER OF KIDNEY AND URETER, UNSPECIFIED~~COMPARISON: CT abdomen pelvis 06/28/2020, renal ultrasound 08/15/2020.~~TECHNIQUE: Sonographic evaluation of the kidneys and bladder was performed using grayscale ultrasound.~~FINDINGS:~~Right Kidney: 10.4 cm~Echogenic Pattern: Normal~Hydronephrosis: None~Other: No calculi~Focal Lesions: None~~Left Kidney: 10.9~Echogenic Pattern: No~Hydronephrosis: No~Other: No calculi~Focal Lesions: None~~Aorta: Nonaneurysmal ~~Proximal Iliacs: Normal~~IVC Superior: Normal~~Bladder: Unremarkable, low post void residual~~~IMPRESSION:~~Unremarkable renal ultrasound.~EKG/Rhythm Strip InterpretationProgress Time 1: 1430 Progress comments 1: Patient resting comfortable sitting upright to semi-Hardy on ED cot. Will order ultrasound and labs.Progress comments 2: . Renal function within normal limits. Ultrasound negative for any hydronephrosis. Patient 's history reviewed, and every urine sample she has submitted at this facility looks similar to this. Therefore will hold treatment pending urine culture. Patient has also had 13 CT scans at this facility. Since 06/21/2020, patient has had 5 CT abdomen/pelvis studies both here and at other facilities, all for similar complaints, and negative.Progress time 3: 2100 Progress comments 3: Patient asked to be discharged home now that her labs are nonactionable and the ultrasound was not indicating renal colic. Patient looks well sitting on ED cot. She agrees to follow-up with her [facility] neurologist. Patient states she is well enough to go home with discharge. Right is to discharge her home with primary care and urology follow-up. She agrees to this plan.Diagnosis: Acute flank and abdominal painDiagnosis level 2Disposition time: 2100 Discharge condition: StableDischarge plan: Patient requested to be discharged home and will follow up with her [place] based urologistDisposition: homePatient did not require critical care timeMidlevel signature: MAIKEL PERALTA NPMidcleveland clinic [facility] signature date: 12/10/2020 10:35Attending Physician Attestation: I have reviewed the midlevel documentation, agree with the documentation, medical decision making and treatment plan as outlined by [facility]Phys[facility] signature: BERNABE KUMAR MDPhysician signature date: 12/12/2020 14:55 Name Value Range Interpretation Code Description Data Victoria rce(s) Supporting Document(s) ID Date Data Source [id number] 12/06/2020 08:15:08 PM EDT [facility] al Note Status: FINAL (SIGNED)Full Name: Kade JONES Date: 1985Visit ID: [id number] Record Number: [id number]: 34YSex: FemaleRoom Location: ER ROOMSBed Location: ER BD 12Date of Service: 08/15/2020 16:05Creation Date: 08/15/2020 16:05Created By: [facility] Physician: FORTUNATO CONTRERASTime patient first seen: 1605 Informant: PatientHPI Chief Complaint: Left flank pain HPI duration: 2 hours HPI comments: 34-year-old female patient with a history of PE (on Lovenox) and asthma presents for evaluation of her left flank pain that began 2 hours ago and has persisted. Patient denies any injury or increase in activity that may have caused this. Patient states the pain is located in her left mid back and radiates to her left lower abdomen. Patient denies any fevers, chills, nausea, vomiting constipation diarrhea or any urinary symptoms. She denies any radiculopathy, saddle anesthesias, bowel or bladder incontinence. She denies any chest pain/pressure, palpitations, shortness of breath or dyspnea. Patient's past surgical history includes a cholecystectomy and appendectomy. Patient states she has had kidney stones previously, and this feels similar. Patient has tried Tylenol without relief. Patient states she is currently awaiting her first appointment with a urologist here [place].~~Review of SystemsAll systems reviewed and negative except as noted in HPIAll systems reviewed and negative except as noted in HPI or noted belowED Triage Note: Pt c/o left flank pain; hx of kidney. Also some N/V [AYO OJEDA 08/15/20 14:44]Past Medical/Surgical HistoryPast medical/surgical history reviewedFull problems and procedures listProblem;Associated ICD-10-CM Code;Status;OnsetAppendectomy;None Associated;Completed;UnknownAsthma;None Associated;Active;UnknownCholecystectomy;None Associated;Completed;UnknownHypercholesterolemia;None Associated;Active;UnknownHome MedicationsHome medications reviewedcetirizine, 10 milligram orally daily PRN allergy symptoms Enoxaparin, 120 milligram subcutaneously every 12 hours HYDROcodone-acetaminophen 5 mg-325 mg, 1 tablet orally every 4 hours PRN pain methocarbamoL, 500 milligram orally daily Multivitamins Tablet, 1 tablet orally daily AllergiesAllergies reviewedLast Verified By: AYO OJEDA RN on 08/15/2020 14:45Motrin(on blood thinner), Penicillin V(Rash) Family HistoryFamily history reviewedMother (alive) 43Y Benign essential hypertension, Father 50Y ( [place] ) Social history reviewedVital SignsVital signs reviewedMaximum temperature within the last 24 hours: 97.2 FDate/time of maximum temperature: 08/15/2020 14:42Most recent vital signsBP: 126/71 08/15/2020 14:42 Pulse: 76 08/15/2020 14:42 Temp: 97.2 F 08/15/2020 14:42 Resp: 16 08/15/2020 14:42 O2 Sat: 100.0% 08/15/2020 14:42 Calculated BMI: 48 08/15/2020 14:42 Admission height (inches): 61Admission weight (kgs): 113.85Triage Vital SignsTemp: 97.2F 08/15/2020 14:42 Pulse: 76 bpm 08/15/2020 14:42 Respirations: 16 08/15/2020 14:42 Blood Pressure: 126/71 mmHg 08/15/2020 14:42 O2Sat: 100 % 08/15/2020 14:42 Height: 61 in 08/15/2020 14:42 Weight: 113.85 kg 08/15/2020 14:42 Calculated BMI: 48 08/15/2020 14:42 Physical ExamConst: Within normal limits, no apparent distress, janet ears stated age, comments: Vitals within normal limits. Patient appears well.Eyes: within normal limits, extraocular movements intact, PERRL, no conjunctival injection, sclera anictericHENT: Within normal limits, Normocephalic atraumatic, Tympanic membrane normal, No nasal discharge, Oral mucosa moist/clearNeck: Within normal limits, No lymphadenopathyCVS: Within normal limits, Regular rate and rhythm, No rubs/gallops/murmursResp: Within normal limits, Clear to auscultation bilaterally, No wheezes/rales/rhonchiGI: Within normal limits, Non-tender, Normal bowel sounds, No guarding/rebound/tenderness, No organomegalyGI comments: Soft, NT/ND.Musc: Within normal limits, Joints normal, Range of motion normalExtrem: Within normal limits, No clubbing/cyanosis/edemaNeuro: Within normal limits, No lateralizing deficits, comments: Strength 5/5 in lower extremities bilaterally.~Sensation intact.Skin: Within normal limits, No rash, No bruisingBack: Within normal limits, No CVA tenderness, comments: No tenderness over the thoracic or lumbar spine.Initial impression: Acute left flank pain, UTI, pyelonephritis, kidney stone, MSK painLaboratory resultsAll Lab ResultsOrder;Test;Value;Reference Range;Comments;Status;CollectionCBC DIFF;WBC;11.9 H ;(4.8-10.8 K/uL);;Final Result ;08/15/2020 17:16:00CBC DIFF;RED BLOOD CELL;3.97 L ;(4.20-5.40 M/uL);;Final Result ;08/15/2020 17:16:00CBC DIFF;HEMOGLOBIN;11.7 L ;(12.0-16.0 gm/dL);;Final Result ;08/15/2020 17:16:00CBC DIFF;HEMATOCRIT;35.4 L ;(36.0- 48.0 %);;Final Result ;08/15/2020 17:16:00CBC DIFF;MCV;89.2 ;(80.0-100.0 fL);;Final Result ;08/15/2020 17:16:00CBC DIFF;MCHC;33.1 ;(30.0-36.5 %);;Final Result ;08/15/2020 17:16:00CBC DIFF;MCH;29.5 ;(27.0-34.0 pg);;Final Result ;08/15/2020 17:16:00CBC DIFF;RDW;15.9 H ;(11.0-15.0 %);;Final Result ;08/15/2020 17:16:00CBC DIFF;PLATELET COUNT;317 ;(130-450 K/uL);;Final Result ;08/15/2020 17:16:00CBC DIFF;MPV;6.7 ;(6.0-12.0 fL);;Final Result ;08/15/2020 17:16:00CBC DIFF;NEUTROPHIL;69 ;(37-80 %);;Final Result ;08/15/2020 17:16:00CBC DIFF;LYMPHOCYTE;24 ;(10-50 %);;Final Result ;08/15/2020 17:16:00CBC DIFF;MONOCYTE;6 ;(0-12 %);;Final Result ;08/15/2020 17:16:00CBC DIFF;EOSINOPHIL;1 ;( < =8 %);;Final Result ;08/15/2020 17:16:00CBC DIFF;BASOPHIL;0 ;( < =3 %);;Final Result ;08/15/2020 17:16:00CBC DIFF;DEAN#;8.3 ;(1.8-8.6 K/uL);;Final Result ;08/15/2020 17:16:00CBC DIFF;LYMPHOCYTE #;2.9 ;(0.5-5.0 K/uL);;Final Result ;08/15/2020 17:16:00CBC DIFF;MONOCYTE #;0.7 ;(0.0-1.3 K/uL);;Final Result ;08/15/2020 17:16:00CBC DIFF;EOSINOPHIL #;0.1 ;(0.0-0.9 K/uL);;Final Result ;08/15/2020 17:16:00CBC DIFF;BASOPHIL #;0.0 ;(0.0-0.3 K/ul);;Final Result ;08/15/2020 17:16:00COMPREHENSIVE PANEL;SODIUM;140 ;(136-145 mmol/L);;Final Result ;08/15/2020 17:16:00COMPREHENSIVE PANEL;POTASSIUM;3.5 ;(3.5-5.2 mmol/L);;Final Result ;08/15/2020 17:16:00COMPREHENSIVE PANEL;CHLORIDE;109 H ;(100-108 mmol/L);;Final Result ;08/15/2020 17:16:00COMPREHENSIVE PANEL;CARBON DIOXIDE;23 ;(21-32 mmol/L);;Final Result ;08/15/2020 17:16:00COMPREHENSIVE PANEL;GLUCOSE;91 ;(70-100 mg/dL);;Final Result ;08/15/2020 17:16:00COMPREHENSIVE PANEL;BUN;18 ;(7-21 mg/dL);;Final Result ;08/15/2020 17:16:00COMPREHENSIVE PANEL;Creatinine;0.9 ;(0.6-1.3 mg/dL);;Final Result ;08/15/2020 17:16:00COMPREHENSIVE PANEL;CALCIUM;8.8 ;(8.5- 10.8 mg/dL);;Final Result ;08/15/2020 17:16:00COMPREHENSIVE PANEL;GFR; > 60 ;;;Final Result ;08/15/2020 17:16:00COMPREHENSIVE PANEL;TOTAL BILIRUBIN;0.3 ;(0.0-1.2 mg/dL);;Final Result ;08/15/2020 17:16:00COMPREHENSIVE PANEL;TOTAL PROTEIN;7.1 ;(6.4-8.2 gm/dL);;Final Result ;08/15/2020 17:16:00COMPREHENSIVE PANEL;ALBUMIN;4.0 ;(3.4-4.8 gm/dL);;Final Result ;08/15/2020 17:16:00COMPREHENSIVE PANEL;ALK PHOS;102 ;(40-150 U/L);;Final Result ;08/15/2020 17:16:00COMPREHENSIVE PANEL;ALT(SGPT);43 ;(0-55 U/L);;Final Result ;08/15/2020 17:16:00COMPREHENSIVE PANEL;AST (SGOT);31 ;(5-37 U/L);;Final Result ;08/15/2020 17:16:00PREGNANCY TEST - SERUM; TEST - SERUM;NEGATIVE;;;Final Result ;08/15/2020 17:16:00URINALYSIS ROUTINE;Dipstick Urine Color;LUIS M;;;Final Result ;08/15/2020 16:44:00URINALYSIS ROUTINE;Dipstick Urine Turbidity;HAZY;;;Final Result ;08/15/2020 16:44:00URINALYSIS ROUTINE;Dipstick Specific [place];1.025 ;(1.000- 1.030);;Final Result ;08/15/2020 16:44:00URINALYSIS ROUTINE;Dipstick Urine pH;5.0 ;(5.0-8.0);;Final Result ;08/15/2020 16:44:00URINALYSIS ROUTINE;Dipstick Urine Leucoesterase;2 ;;;Final Result ;08/15/2020 16:44:00URINALYSIS ROUTINE;Dipstick Urine Nitrate;NEGATIVE;;;Final Result ;08/15/2020 16:44:00URINALYSIS ROUTINE;Dipstick Urine Protein;100 [ 2 ];;;Final Result ;08/15/2020 16:44:00URINALYSIS ROUTINE;Dipstick Urine Glucose;NORMAL;;;Final Result ;08/15/2020 16:44:00URINALYSIS ROUTINE;Dipstick Urine Ketone;NEGATIVE;;;Final Result ;08/15/2020 16:44:00URINALYSIS ROUTINE;Dipstick Urine Urobilinogen;1;;;Final Result ;08/15/2020 16:44:00URINALYSIS ROUTINE;Dipstick Urine Bili;NEGATIVE;;;Final Result ;08/15/2020 16:44:00URINALYSIS ROUTIN E;Dipstick Urine Hgb;3 ;;;Final Result ;08/15/2020 16:44:00URINE MICROSCOPIC;Microscopic Urine WBC;5-10;;;Final Result ;08/15/2020 16:44:00URINE MICROSCOPIC;Microscopic Urine RBC; > 100;;;Final Result ;08/15/2020 16:44:00URINE MICROSCOPIC;Microscopic Urine BACT;MODERATE;;;Final Result ;08/15/2020 16:44:00URINE MICROSCOPIC;Microscopic Urine Epi;MODERATE;;;Final Result ;08/15/2020 16:44:00Ultrasound results: 08/15/2020 6:21 PM~~RENAL ULTRASOUND~~CLINICAL INFORMATION: left flank pain, r/o obstructive uropathy -- PAIN,~UNSPECIFIED~~COMPARISON: Multiple prior studies, most recently 06/28/2020.~~TECHNIQUE: Sonographic evaluation of the kidneys and bladder was performed~using grayscale ultrasound.~~FINDINGS:~~Right Kidney: Measures 9.5 cm.~Parenchyma: Normal homogeneous echotexture.~Hydronephrosis: None.~Calculi: None.~Focal Lesions: None.~~Left Kidney: Measures 10.6 cm.~Parenchyma: Normal homogeneous echotexture.~Hydronephrosis: None.~Calculi: None.~Focal Lesions: None.~~Aorta: Non-aneurysmal.~~Inferior Vena Cava: Patent.~~Bladder: The bladder is minimally distended. This limits assessment for wall~thickness.~Jets: Bilateral ureteral jets are documented.~Prevoid Volume: 165 cc.~Postvoid Residual Volume: Patient did not void during the exam.~~Miscellaneous: Echogenic hepatic parenchyma suggesting steatosis.~~~IMPRESSION:~~No hydronephrosis.~~END OF IMPRESSION~~[facility] sub[facility] Rad[facility] then provides those same results to [facility]. All~results are available to [facility] and [facility] provider portal~users. [facility] DICOM images are available to the[facility] provider portal users only. [facility] DICOM~images are not available to the [facility] provider portal users. There is~no current [facility] cross-[facility] functionality allowing images to be available through~the [facility] to [facility] connectivity.~Electronically signed By: Scottie Vazquez MD~~Read By: SCOTTIE VAZQUEZ~Date: 08/15/2020 19:12~~~EKG/Rhythm Strip InterpretationProgress Time 1: 1605 Progress comments 1: Patient seen and evaluated. Progress time 2: 1944 Progress comments 2: Serum negative. Urinalysis with 5-10 white blood cells, greater than 100 red blood cells, moderate bacteria and moderate epithelial cells. Urine culture was sent. Mild leukocytosis of 11.9 noted on laboratory evaluation, however no left shift. Renal function within normal limits. Ultrasound negative for any hydronephrosis. Patient 's history reviewed, and every urine sample she has submitted at this facility looks similar to this. Therefore will hold treatment pending urine culture. Patient has also had 13 CT scans at this facility. Since 06/21/2020, patient has had 5 CT abdomen/pelvis studies both here and at other facilities, all for similar complaints, and negative. Therefore, I discussed with patient I was not going to CT scan her again. She is agreeable to this plan of care. Close follow-up and strict return precautions discussed. Plan of care discussed with patient, will discharge patient home.Diagnosis: Acute left flank painDiagnosis level 3Disposition time: 1944 Discharge condition: Improved; StableDischarge plan: Advised rest and plenty of clear fluids. Take Tylenol as needed for the pain. Follow-up with your primary care doctor in 2 to 3 days for reevaluation. Return to the emergency department immediately with any new or worsening symptoms.Disposition: homePatient did not require critical care timeMidlevel signature: Guerda MORALES signature date: 08/16/2020 21:32Physician signature: FAUSTO LEONhysician signature date: 08/17/2020 07:55 Name Value Range Interpretation Code Description Data Victoria rce(s) Supporting Document(s) ID Date Data Source [id number] 12/06/2020 07:37:00 PM EDT [facility] LIPASE Name Value Range Interpretation Code Description Data Victoria rce(s) Supporting Document(s) LIPASE 20 U/L 8-78 [facility] ID Date Data Source [id number] 12/06/2020 07:37:00 PM EDT [facility] AMYLASE Name Value Range Interpretation Code Description Data Victoria rce(s) Supporting Document(s) AMYLASE 45 U/L 25-125 [facility] ID Date Data Source [id number] 12/06/2020 07:37:00 PM EDT [facility] CMP Name Value Range Interpretation Code Description Data Victoria rce(s) Supporting Document(s) SODIUM 137 mmol/L 136-145 [facility] POTASSIUM 3.7 mmol/L 3.5-5.2 [facility] CHLORIDE 104 mmol/L 100-108 [facility] CO2 21 mmol/L 21-32 [facility] GLUCOSE 86 mg/dL 70-100 [facility] BUN 13 mg/dL 7-21 [facility] CREATININE 0.8 mg/dL 0.6-1.3 [facility] Normal Kidney Function or Mild Disease - GFR >OR= 60Chronic Kidney Disease - GFR 15-59Renal Failure - GFR < 15GFR not calculated on patients under 18 years of age. CALCIUM 10.2 mg/dL 8.5-10.8 [facility] GFR >60 [facility] T BILI 0.5 mg/dL 0.0-1.2 [facility] T PROTEIN 7.4 gm/dL 6.4-8.2 [facility] ALBUMIN 4.1 gm/dL 3.4-4.8 [facility] ALK PHOS 104 U/L 40-150 [facility] ALT (SGPT) 47 U/L 0-55 [facility] AST (SGOT) 40 U/L 5-37 H [facility] ID Date Data Source [id number] 12/06/2020 07:32:00 PM EDT [facility] al Name Value Range Interpretation Code Description Data Victoria rce(s) Supporting Document(s) SERUM TEST NEGATIVE [facility] spital PREGS METHODOLOGY [facility] ID Date Data Source [id number] 12/06/2020 07:27:00 PM EDT [facility] al Name Value Range Interpretation Code Description Data Victoria rce(s) Supporting Document(s) PTT 32.0 sec 25.6-36.4 [facility] ID Date Data Source [id number] 12/06/2020 07:24:00 PM EDT [facility] al Name Value Range Interpretation Code Description Data Victoria rce(s) Supporting Document(s) PROTIME 12.3 sec 9.4-12.4 [facility] INR 1.1 [facility] INR INTERPERTATION 2.0 -3.0 THERAPEUTIC MONITORING2.5-3.5 HEART VALVE REPLACEMENT ID Date Data Source [id number] 12/06/2020 07:24:00 PM EDT [facility] CBC WITH DIFF Name Value Range Interpretation Code Description Data Victoria rce(s) Supporting Document(s) WBC 9.7 K/uL 4.8-10.8 [facility] RBC 4.08 M/uL 4.20-5.40 L [facility] HEMOGLOBIN 13.5 gm/dL 12.0-16.0 [facility] HEMATOCRIT 39.0 % 36.0-48.0 [facility] MCV 95.5 fL 80.0-100.0 [facility] MCHC 34.7 % 30.0-36.5 [facility] MCH 33.1 pg 27.0-34.0 [facility] RDW 12.2 % 11.0-15.0 [facility] PLATELET 266 K/uL 130-450 [facility] MPV 7.0 fL 6.0-12.0 [facility] NE% 65 % 37-80 [facility] LY% 27 % 10-50 [facility] MO% 6 % 0-12 [facility] Eosinophils [#/volume] in Blood by Automated count 1 % <=8 [facility] BA% 0 % <=3 [facility] NE# 6.3 K/uL 1.8-8.6 [facility] LYMPH# 2.6 K/uL 0.5-5.0 [facility] MONO# 0.6 K/uL 0.0-1.3 [facility] EOS# 0.1 K/uL 0.0-0.9 [facility] BASO# 0.0 K/ul 0.0-0.3 [facility] ID Date Data Source [id number] 12/09/2020 09:01:00 AM EDT [facility] CULTURE OBSERVATIONS 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 [facility] RBC 5-10 /HPF NONE SEEN ! [facility] The [employer] has definedMicroscopic Hematuria as 3 or more RBC per highpowered field from a single positive urinalysis withmicroscopy. BACTERIA MANY /HPF NONE SEEN ! [facility] EPITHELIAL CELLS MODERATE /HPF NONE SEEN ! [facility] spital ID Date Data Source [id number] 12/06/2020 07:17:00 PM EDT [facility] Name Value Range Interpretation Code Description Data Victoria rce(s) Supporting Document(s) COLOR LUIS M [facility] APPEARANCE HAZY CLEAR ! [facility] SPECIFIC GRAVITY 1.020 1.000-1.030 [facility] ital pH 5.0 5.0-8.0 [facility] LEUKOCYTES 2+ NEGATIVE ! [facility] NITRATE NEGATIVE NEGATIVE [facility] PROTEIN 100 [ 2+] mg/dL NEGATIVE ! [facility] GLUCOSE NORMAL mg/dL NORMAL [facility] KETONE NEGATIVE mg/dL NEGATIVE [facility] UROBILINOGEN NORMAL mg/dL NORMAL [facility] l BILIRUBIN NEGATIVE mg/dL NEGATIVE [facility] HEMOGLOBIN 3+ NEGATIVE ! [facility] ID Date Data Source [id number] 12/06/2020 08:55:58 PM EDT [facility] al 12/06/2020 8:18 PMRENAL ULTRASOUNDCLINICA L INFORMATION: DISORDER OF KIDNEY AND URETER, UNSPECIFIED, --DISORDER OF KIDNEY AND URETER, UNSPECIFIEDCOMPARISON: CT abdomen pelvis 06/28/2020, renal ultrasound 08/15/2020.TECHNIQUE: Sonographic evaluation of the kidneys and bladder was performedusing grayscale ultrasound.FINDINGS:Right Kidney: 10.4 cmEchogenic Pattern: NormalHydronephrosis: NoneOther: No calculiFocal Lesions: NoneLeft Kidney: 10.9Echogenic Pattern: NoHydronephrosis: NoOther: No calculiFocal Lesions: NoneAorta: NonaneurysmalProximal Iliacs: NormalIVC Superior: NormalBladder: Unremarkable, low post void residualIMPRESSION:Unremarkable renal ultrasound.END OF IMPRESSIONI have personally reviewed the images and the Resident's/Fellow'sinterpretation and agree with or edited the findings.[facility] submits Radiology results to [facility] then provides those same results to [facility]. Allresults are available to [facility] and [facility] provider portalusers. [facility] DICOM images are available to the[facility] provider portal users only. [facility] DICOMimages are not available to the [facility] provider portal users. There isno current [facility] cross-IO functionality allowing images to be available throughthe IO to [facility] connectivity.Interpreted By: Sirera Trivedi MDElectronically signed By: León Butler M.D.Read By: LEÓN Rutledge: 12/06/2020 20:52 Name Value Range Interpretation Code Description Data Victoria rce(s) Supporting Document(s) ID Date Data Source [id number] 12/03/2020 07:38:[place] [address] HEALTH INFORMATION MANAGEMENT ED/UC Physician Report : [id number] Signed Patient: Taniya Field Acct:[id number] Unit: [facility] [id number] : 1985 Arrival Date: 12/03/20 Age/Sex: 35 / F Arrival Time: 1442 Copies to: Fortunato Contreras MD General Adult HPI/ROS General Chief Complaint: Flank Pain Stated Complaint: Poss Kidney Stone Source: Patient Mode of arrival: Ambulatory Limitations: Reports No limitations History of Present Illness Initial Comments: 35-year-old female patient presenting to the emergency department with complaints of left flank pain. Patient reports that pain began yesterday. She states that she did lift something heavy yesterday and is wondering if this is a muscle strain or kidney stone. Patient reports that she has worsening pain with movement. States that she has not tried any orkg-vny-wbhhjkc medications for symptoms prior to coming to ER. Denies any burning frequency urgency with urination. Related Data Last Menstrual Period: 2 wks ago Home Medications Medication Instructions Recorded enoxaparin 120 mg/0.8 mL 120 mg SUBCUT Q12H 03/29/20 subcutaneous syringe (Lovenox) baclofen 10 mg tablet 10 mg PO DAILY 05/11/20 buspirone 10 mg tablet 10 mg PO BID 05/11/20 levocetirizine 5 mg tablet (Xyzal) 5 mg PO DAILY 05/11/20 mirtazapine 15 mg tablet (Remeron) 15 mg PO DAILY 05/11/20 venlafaxine 37.5 mg tablet 37.5 mg PO DAILY 05/11/20 cyclobenzaprine 10 mg tablet 10 mg PO TID PRN #10 tab 12/03/20 Allergies Penicillins Allergy (Intermediate, Verified 12/03/20 15:02) RASH/HIVES ibuprofen Adverse Reaction (Severe, Verified 12/03/20 15:02) contraindication with blood thinner Review of Systems All systems: Reviewed and negative except as stated in HPI. Social History Social History O ther: lives with sister and sisters children History of Smoking/Tobacco Use: Unknown if Ever Smoked Tobacco Product: Reports Cigarettes Alcohol use: Reports None Drug use: Reports None Occupation: [employer] Lives with: Reports Alone PMH/PSH Medical History Asthma Diverticulitis Factor 5 Leiden mutation, heterozygous Hypertension Kidney stone Pulmonary emboli Rotator cuff strain Surgical History History of appendectomy (Surgical) Hx of cholecystectomy (Surgical) Family History Other No pertinent family history Patient denies significant medical history Physical Exam Physical Exam General appearance: Alert and In no apparent distress Head Head Exam: Atraumatic and Normcephalic Neck Neck Exam: Full ROM Cardiac Cardiac: Present: Regular rate and rhythm and Radial pulses normal equal Lung/Chest Lung/Chest Exam: Clear and Normal Exchange Abdomen Abdominal Exam: Bowel sounds normal, Soft, Nondistended, Nontender and No guarding Back Back Exam: negative Full ROM Location of Back Tenderness: CVA: Neg Male Torso BACK: 1. Tenderness with palpation. Muscle spasm noted. Neuro Neuro Normal: Alert, Oriented x 3, Sensory normal and Strength 5/5 all extremities Psych Psych Normal: Normal Affect Skin Skin exam: Dry, Intact, [place] and Warm Course Vital Signs Vital signs: Vital Signs 12/03/20 14:59 Temperature 98.4 F Pulse Rate 103 H Respiratory Rate 18 Blood Pressure 158/70 H O2 Sat by Pulse Oximetry 98 Medical Decision Making/CCT Lab Data Labs: Lab Results 12/03/20 Range/Units 14:44 Urine Color RED H (YELLOW) Urine Appearance CLOUDY H (CLEAR) Urine pH 6.0 (5.0- 8.0) Specific [place] (Man) 1.014 (1.002-1.035) Urine Protein 100 H (NEGATIVE) MG/DL Urine Glucose (UA) NEGATIVE (NEGATIVE) MG/DL Urine Ketones NEGATIVE (NEGATIVE) MG/DL Urine Occult Blood LARGE H (NEGATIVE) Urine Nitrate NEGATIVE (NEGATIVE) Urine Bilirubin NEGATIVE (NEGATIVE) Urine Urobilinogen 0.2-1.0 (NEG-0-1.0) EU MG/DL Ur Leukocyte Esterase TRACE H (NEGATIVE) Urine RBC (Auto) >100 H (0- 2) PER HPF Urine Bacteria (Auto) RARE (NONE) PER HPF Ur Epithelial Cells MANY (FEW-MOD) PER/LPF Urine Mucus RARE (NONE SEEN) PER HPF Medical Decision Making Medical Decision Makin-year-old female patient presenting to the emergency department with complaint of left-sided back pain believes that it began yesterday after lifting something. Patient states that she does have a history of kidney stones. Urinalysis does appear consistent with prior the urinalysis. Denies any burning frequency urgency with urination. Pain is worse with movement. Discussed with patient that this is most likely musculoskeletal in nature. She has been given Toradol and Flexeril. For any worsening symptoms she has been advised return to the ER for re-evaluation. Otherwise instructed to follow-up with her primary care doctor tomorrow. Patient feels comfortable with discharge. Discharge Plan Disposition Clinical Impression: Back pain Qualifiers: Back pain location: back pain in unspecified location Chronicity: acute Back pain laterality: left Qualified Code(s): M54.9 - Dorsalgia, unspecified Provider stated Dispo: Discharged Condition: Stable Instructions: Back Pain (ED) Activity Restrictions/Additional Instructions: Use heat and ice as needed for comfort. Follow-up closely with your primary care doctor. Take medications as prescribed. For any worsening symptoms return to the emergency department for re-evaluation. Prescriptions: New cyclobenzaprine 10 mg tablet 10 mg PO TID PRN (Reason: muscle spasm) Qty: 10 RF: 0 No Action enoxaparin [Lovenox] 120 mg/0.8 mL syringe 120 mg subcut Q12H RF: 0 baclofen 10 mg tablet 10 mg PO DAILY RF: 0 venlafaxine 37.5 mg tablet 37.5 mg PO DAILY RF: 0 buspirone 10 mg tablet 10 mg PO BID RF: 0 mirtazapine [Remeron] 15 mg tablet 15 mg PO DAILY RF: 0 levocetirizine [Xyzal] 5 mg tablet 5 mg PO DAILY RF: 0 Referrals: Fortunato Contreras MD [Primary Care Provider] - 1 day Stand Alone Forms: Portal Instructions Provider in triage note Vital Signs Vital Signs: I O (Last 24 Hours) 12/01/20 12/02/20 12/03/20 23:59 23:59 23:59 Other: Weight 118.6 kg Vital Signs (Last 8 Hours) Temp Pulse Resp BP Pulse Ox 12/03/20 14:59 98.4 F 103 H 18 158/70 H 98 Date/Time <<Signature on File>> Initializing User: Elvira Max [facility] 12/03/201937 Signed by: Elvira Max [facility] 12/03/202026 Betty Calvillo DO 12/03/202216 Name Value Range Interpretation Code Description Data Victoria rce(s) Supporting Document(s) ID Date Data Source [id number] 12/03/2020 03:17:00 PM EDT [facility] Name Value Range Interpretation Code Description Data Victoria rce(s) Supporting Document(s) COLOR,UR RED YELLOW A [facility] APPEARANCE,UR CLOUDY CLEAR A [facility] PH,UR 6.0 5.0-8.0 [facility] SPECIFIC GRAVITY,UR 1.014 1.002-1.035 N [facility] PROTEIN,UR 100 MG/DL NEGATIVE A [facility] GLUCOSE, UR NEGATIVE MG/DL NEGATIVE [facility] KETONES,UR NEGATIVE MG/DL NEGATIVE [facility] OCCULT BLOOD,UR LARGE NEGATIVE A [facility] NITRATE,UR NEGATIVE NEGATIVE [facility] LEUKOCYTE ESTERASE ,UR TRACE NEGATIVE A [facility] BILIRUBIN,UR NEGATIVE NEGATIVE [facility] UROBILINOGEN,UR 0.2-1.0 EU MG/DL NEG-0-1.0 [facility] RBC,UR >100 PER HPF 0-2 A [facility] URINE EPITH MANY PER/LPF FEW-MOD [facility] BACTERIA,UR RARE PER HPF NONE [facility] MUCUS,UR RARE PER HPF NONE SEEN [facility] ID Date Data Source [id number] 12/03/2020 02:44:00 PM EDT [facility] ([facility]) Name Value Range Interpretation Code Description Data Victoria rce(s) Supporting Document(s) Color of Urine Laboratory test result Abnormal (applies to non-numeric results) [facility] ([facility]) pH of Urine 6.0 5.0-8.0 [facility]) Appearance of Urine Laboratory test result Abnor mal (applies to non-numeric results) [facility] ([facility]) Specific gravity of Urine 1.014 1.002-1.035 [facility] ([facility]) Glucose [Mass/volume] in Urine Laboratory test result [facility] ([facility]) Protein [Presence] in Urine by Test strip 100 mg/dL Abnormal (applies to non- numeric results) [facility] ([facility]) Hemoglobin [Presence] in Urine by Test strip Laboratory test res ult Abnormal (applies to non-numeric results) [facility] Ketones [Presence] in Urine by Test strip Laboratory test result [facility] ([facility]) Nitrate [Presence] in Urine Laboratory test result [facility] ([facility]) Leukocyte esterase [Presence] in Urine by Test strip Laboratory test result Abnormal (applies to non-numeric results) [facility]) Bilirubin.total [Presence] in Urine by Test strip Laboratory test res ult [facility] ([facility]) RBC,Ur Laboratory test result 0-2 Abnormal (applies to non -numeric results) [facility] ([facility]) Urobilin [Presence] in Urine Laboratory test result 0-0 [facility] ([facility]) Mucus [Presence] in Urine sediment by Light microscopy Laborator y test result [facility] ([facility]) Bacteria,Ur Laboratory test result [facility] ([facility]) Epithelial cells [Presence] in Urine sediment by Light microscopy Laboratory test result 0-0 [facility] ([facility]) ID Date Data Source [id number] 11/22/2020 01:38:00 PM EDT [facility] Name Value Range Interpretation Code Description Data [facility] rce(s) Supporting Document(s) SARS-CoV-2 RNA Pnl Spec WILLIAN+probe NEG [facility] This lab was ordered by [facility], EOU (OPD) and reported by [facility]. ID Date Data Source [id number] 11/01/2020 12:25:00 PM EDT [facility] Name Value Range Interpretation Code Description Data Victoria rce(s) Supporting Document(s) Laboratory test finding (navigational concept) Laboratory test result [facility] ([facility]) ID Date Data Source [id number] 11/01/2020 12:07:00 PM EDT [facility] ([facility]) Name Value Range Interpretation Code Description Data Victoria rce(s) Supporting Document(s) Glucose [Mass/volume] in Capillary blood by Glucometer 91 [facility] ([facility]) ID Date Data Source [id number] 10/30/2020 03:53:00 PM EDT [facility] ([facility]) Name Value Range Interpretation Code Description Data Victoria rce(s) Supporting Document(s) Laboratory test finding (navigational concept) Laboratory test result [facility] ([facility]) <content>QUANTITATIVE RESULT QU ALITATIVE INTERPRETATION</content>
<content> </content>
<content><5.0 IU/L NEGATIVE</content>
<content>5.0 - 25.0 IU/L INDETERMINATE</content>
<content>>25.0 IU/L POSITIVE</content>
<content></content> ID Date Data Source [id number] 10/30/2020 03:26:00 PM EDT [facility] ([facility]) Name Value Range Interpretation Code Description Data Victoria rce(s) Supporting Document(s) Lipase [Enzymatic activity/volume] in Serum or Plasma 105 U/L 73-3 93 [facility] ([facility]) ID Date Data Source [id number] 10/30/2020 03:26:00 PM EDT [facility] ([facility]) Name Value Range Interpretation Code Description Data Victoria rce(s) Supporting Document(s) Creatinine For GFR 0.74 mg/dL 0.55-1.30 [facility] ([facility]) Blood Urea Nitrogen 17 mg/dL 7-18 [facility] ([facility]) Glucose, Fasting 91 mg/dL 70-100 [facility] Sodium Level 139 meq/L 136-145 [facility] ([facility]) Glomerular Filtration Rate Laboratory test result [facility] ([facility]) <content>Units are mL/min/1.73 m2</content>
<content></content>
<content>Chronic Kidney Disease Staging per [facility]:</content>
<content></content>
<content>Stage I & II GFR >=60 Normal to Mildly Decreased</content>
<content>Stage III GFR 30-59 Moderately Decreased</content>
<content>Stage IV GFR 15-29 Severely Decreased</content>
<content>Stage V GFR <15 Very Little GFR Left</content>
<content>ESRD GFR <15 on PHARMACEUTICAL SALES SPECIALIST</content>
<content></content> Potassium Serum 3.8 meq/L 3.5-5.1 [facility]) Chloride Level 108 meq/L 98-107 Above high normal [facility] ([facility]) Calcium Level 8.9 mg/dL 8.5-10.1 [facility]) Anion Gap 5 meq/L 8-16 Below low normal [facility] ( [facility]) Carbon Dioxide Level 26 meq/L 21-32 [facility]) ID Date Data Source [id number] 10/30/2020 03:26:00 PM EDT [facility] Name Value Range Interpretation Code Description Data Victoria rce(s) Supporting Document(s) Ast/Sgot 40 U/L 7-37 Above high normal [facility]) Alt/SGPT 58 U/L 12-78 [facility] Alkaline Phosphatase 112 U/L 45-117 [facility] Bilirubin,Total 0.3 mg/dL 0.2-1.0 [facility]) Bilirubin,Direct 0.1 mg/dL 0.0-0.2 [facility] Total Protein 7.4 GM/DL 6.4-8.2 [facility]) Albumin 3.6 GM/DL 3.2-5.2 [facility] Albumin/Globulin Ratio 0.9 1.2-2.2 Below low normal [facility] ([facility]) ID Date Data Source [id number] 10/30/2020 03:26:00 PM EDT [facility] Name Value Range Interpretation Code Description Data Victoria rce(s) Supporting Document(s) White Blood Count 10.1 10 4.0-10.0 Above high normal [facility] ([facility]) Red Blood Count 4.27 10 4.00-5.40 [facility]) Hemoglobin 13.2 g/dL 12.0-15.5 [facility]) Hematocrit 39.9 % 36.0-47.0 [facility]) Mean Corpuscular Volume 93.4 fl 80.0-96.0 M [facility] ([facility]) Mean Corpuscular HGB Conc 33.1 g/dL 32.0-36.5 [facility] ([facility]) Mean Corpuscular Hemoglobin 30.9 pg 27.0-33.0 [facility] ([facility]) Red Cell Distribution Width 14.0 % 11.5-14.5 [facility] ([facility]) Neutrophils % 68.3 % 36.0-66.0 Above high normal [facility] ([facility]) Platelet Count, Automated 330 10 150-450 [facility] ([facility]) Kidder % 5.9 % 2.0-8.0 [facility]) Lymph % 23.8 % 24.0-44.0 Below low normal [facility] ( [facility]) Baso % 0.4 % 0.0-1.0 [facility]) Immature Granulocyte % 0.8 % 0-3.0 [facility] ([facility]) Eos % 0.8 % 0.0-3.0 [facility]) Lymph # 2.4 10 1.5-5.0 [facility]) Neutrophils # 6.9 10 1.5-8.5 [facility]) Nucleated Red Blood Cell % 0.0 % 0-0 [facility] ([facility]) Kidder # 0.6 10 0.0-0.8 [facility]) Eos # 0.1 10 0.0-0.5 [facility] Baso # 0.0 10 0.0-0.2 [facility]) ID Date Data Source [id number] 10/29/2020 01:00:00 PM EDT [facility] Name Value Range Interpretation Code Description Data Victoria rce(s) Supporting Document(s) First [facility] QADXXw4uMpJJGeYxCVDiZqzGJDhmUUogGKGdJ2Y4SKxlPm1HRDnglgLdCKGqVa4+GNWsMY2qqq5eAZZq gMy 8hUHSyHajeK5GmTSWmm01SEHFqRSsTAsGhBwBgNHF1WBAgLdCmQJF7PvDwIxefTR9zFYI9ZAVyYFkeVQ RnZSyqUjHqYsIiYY6gDEhgGWsjXx4JGW8yb2FoTOWzRVWdXdkQREvtQXkjZEOcHFZbLALiR179glTvGC 6TrQVzRIo3XBHbBqT9LKUyAfO4LUSqAeRtSbDuLKDc C1Jnz769vqIzqlY6BA3BV9AzTRK7SZf3Q7tbIkLhMLJkTFGvEJ9vTiB5CZTmPo7DzOavLHNlULQlOu6L aGu9NQC1TJQdBg0+Pj4+Jj4dlvBtLpvCWYBdXV2rgs59GY0TtZOpQQ9HXSrqG88yDHubIt91KChaWSGs SiPaRWs5Bt4fPaSed3GgS4KsIVx7Z3aQZdmrQ4QwLG fnYI2jXNW4ADBjYo6+Uj4pOLDaPQ16JLYmUTTQO7YqdaReugQmFOl0HRUkIo0+Xz4iqcYkUlxWAQNtLK 1vrr59PK9YDM3qqDuzEtN6OTKfT01ytYBrT1wcNkOeH1UzzRqfGBWtYA1yX1HgHDepKZVmCD2bjeHmcQ 4JvSr6OLCpRq2HxDX1AUGxT93lEGYxRWIBANDsr3Tv YE9Mq3pcnuAkUMIeRB2IKYHsP0WGA8MbQ8kzrMgnEJFaHZ3CSIqwdAGmMUi2ML2BjVSyICXyC54zkC6i YG55QVu+XcO9ilMdxJ3ViFhqfGGYOH/273vki5LrO0wpu23TaSNR7XM3u1EhNnAJlBjID9Rs6Z9nHsdQ +msfxNpPs8ro0ZIy2AqXe2M4dea96/s62Z7Hu59v5o 44eMw1t7OSTvK3TZ7WIG4OGB1AAT7DJp3TytUZYqvGo7cqHH8hWZtIAFS5BLEkWmeu9Uq0phfLKyC89C w8/Ol6BXqrJxZ84fm1/Lz/hyBXTdZLWcnzYDaYlJqBgu07U62b0TX9bDN6tYmfzAiKXEgGWAnDg50NVL DIaEKjfcI9J6EUFATVZBBTf2XC+odk9PTBWOFUNPHQ [file] /BEER BREWER+SSxbHwFxVNICLQ3CQ07AM7j7Pd2sZqM1t4I/OU6F91nognM8n17uaxw3CaxLgAqWvVtFDRsFQma [file] G4PZ+CI708hkkqkjKVF5sm92nRlM7VXy/hFCYv/tooth inspector [file] Pk289bjte9MJrbdih/LxTecfgfIcrRF37TApA/aobx xRA+lekMonwaNKJz7UmmUIecBBAMuWnU80p6RKwSMHPW6VOgopkDtxeKfFmQTtX87Uc+vDPWf5FM/Ikp nN0l1SoxXvGgQ28bex+eRpL6i9blm5aQh3T+rRy1WMzYjz4hh1skj/WPAnuSfIxCK6zFws4at9tpIGTQ wVdfHFv50DPFs8WTzp86E0PCZ+Y+i5c2QeBj5oUyP2 lKgv0xk9MflHZhvhp5xxpFgSi+xmAz7nmK48qXFcvJVq0B0FVMkD2olMQSP61rcFY31+lRFg3n7clh4+ Bczwh6Af3nL+/8pMF53NKTn9NdOzLNptuZdqHlzAxjVaM5aW5HqpQYWlZ1ad1t/lPK53KwA79C LsrkpsTVfxnCL0eFV4jSJ8l4XANSCL/HicpvRfeIxH /9uOp+2ScwkuQ5nR8I1zfqcnyu7w1Lw7deNB2R8XgQLRYsx/Ixs+ONrpuW3I+ubZgoHn9rksbWpvJOd5 87evXs3NuqXiwvwUg8QRGUftH9RiSBwSqKXovUASWSLlSx0RNwztBh7VGqt+3qwHdpfsYUetVwtCKFoi +3ah1191r7jGhBHFdzHbRc+98lDCW+R0mWdHCbL4cG wEyfK2S9hni/ljhQRequBQWowAs493Z/2wFqsdjxhOch8UpaPMr+bEF+f3ymPl+ElGJL2E+hiZwRgpCf Chief Human Resources Officer/fd1jVOCtgiVNFPsFMgZBNQzA0dfgcSoMiqRk+3HAQYu11upTDxzYw8CPvYSJzA3LO9lpR6qCBAeKm [file] [place]/lyMsNtJxkHxv0OHomd7up0APHx4n2lFvR6DMjJSYrZPW5sYvoMzxt07O/rY6QyJb07lvVMFqZtPm5 [file] mscgwKJ/air traffic supervisor+jZJ05P3Z6LFhrIkrdp5TT4D5uqxLzd6beih5EB2mxNWpiwnoIfrObUzqtz4qKiB8cm9I [file] IppBpENdqZFvKWjkqg5HJ5fw3UpP+VdLSt1zSMaQBGeS0gRuGhJ+7rzv6vP6D1wZs6VXg1QA6iFN1/COMPUTER ART INSTRUCTOR [file] L/Frbi63DA+Ukel/6ZqIl0vu1AlxlVoIXNDWVr++Inés/aaZ7RNg8psj4qzUAT103ju2YHpPibrRg+PbT [file] 6/Chief Human Resources Officer+qMGgugVEkst3328rKZpIjlPrAo9fFuoyQy/MY [file] p5/PEDRO [file] 4EX/COMPUTER ART INSTRUCTOR/ffsG2rnL2ySdzT/n3jmU0wKiGQ6v77m98UA [file] aC1P0IiRowanrAHFK6niAqwZx3luwaOdFVU5UG0fcwQP5nLDS3a5lZx9gzf6v6cGfsdCuCTvX1av/LEAD OPERATOR [file] lkwIu9Rzfawcve8ovWskehn02hRDz71BCY1kOwmzN3CW1aenPJ7hVdpEWg6MpsouCbu7ZUwuLlj6+lead quality control technician [file] uPTcHg7HLOAwGln6Ja1QMUNEV2V= ID Date Data Source [id number] 10/07/2020 02:12:50 AM EDT [facility] Status: FINALFull Name: BILLY FIELD Date: 1985Visit ID: [id number] Record Number: [id number]: 34YSex: FemaleRoom Location: ER ROOMSBed Location: ER 1Date of Service: 09/21/2020 19:47Creation Date: 09/21/2020 19:47Created By: EDGARDO CROWEPrimary Care Physician: FORTUNATO CONTRERASTime patient first seen: 1946 Informant: Patient HPI Chief Complaint: I have been having this pain in my left flank for the past couple hours and I noticed a lot of blood in my urine HPI onset: 3 hours HPI timing: Still presentHPImodifying factors: Left flank pain, sharp, constant, without alleviat ing or exacerbating factors. HPI comments: Patient denies fever, chills, sweats, weakness, dizziness, headaches, sore throat, coughing, chest pain, SOB, nausea, vomiting, diarrhea, constipation, dysuria, incontinence, rash, or known sick contacts Review of SystemsAll systems reviewed and negative except as noted in HPIED Triage Note: bilateral flank pain and blood in urine [EMILY CHRIS 09/21/20 19:33]Past Medical/Surgical HistoryPast medical/surgical history reviewedFull problems and procedures listProblem;Associated ICD-10-CM Code;Status;OnsetAppendectomy;None Associated;Completed;UnknownAsthma;None Associated;Active;UnknownCholecystectomy;None Associated;Completed;UnknownHypercholesterolemia;None Associated;Active;UnknownHome MedicationsHome medications reviewedcetirizine, 10 milligram orally daily PRN Enoxaparin, 120 milligram subcutaneously every 12 hours Multivitamins Tablet, 1 tablet orally daily AllergiesAllergies reviewedLast Verified By: EMILY CHRIS R.N. on 09/21/2020 19:33Motrin(on blood thinner), Penicillin V(Rash) Family HistoryFamily history reviewedMother (alive) 43Y Benign essential hypertension, Father 50Y ( [place] ) Social history reviewedVital SignsVital signs reviewedMaximum temperature within the last 24 hours: 98.0 FDate/time of maximum temperature: 09/21/2020 19:31Most recent vital signsBP: 169/113 09/21/2020 19:31 Pulse: 100 09/21/2020 19:31 Temp: 98.0 F 09/21/2020 19:31 Resp: 15 09/21/2020 19:31 O2 Sat: 99.0% 09/21/2020 19:31 Calculated BMI: 50.5 09/21/2020 19:31 Admission height (inches): 61Admission weight (kgs): 120Triage Vital SignsTemp: 98F 09/21/2020 19:31 Pulse: 100 bpm 09/21/2020 19:31 Respirations: 15 09/21/2020 19:31 Blood Pressure: 169/113 mmHg 09/21/2020 19:31 O2Sat: 99 % 09/21/2020 19:31 Height: 61 in 09/21/2020 19:31 Weight: 120 kg 09/21/2020 19:31 Calculated BMI: 50.5 09/21/2020 19:31 Physical ExamConstcomments: Alert,oriented, obese female, in no distress, nontoxic appearing Eyes: within normal limitsHENT: Within normal limitsNeck: Within normal limitsCVS: Within normal limits, Regular rate and rhythm, No rubs/gallops/murmursResp: Within normal limits, Clear to auscultation bilaterally, No wheezes/rales/rhonchiGI: Within normal limits, Non-tender, Normal bowel sounds, No guarding/rebound/tendernessMusc: Within normal limits, Range of motion normalExtrem: Within normal limitsNeuro: Within normal limitsSkin: Within normal limits, No rash, No bruisingBackWithin normal limits: False, comments: There is reproducible left CVA tenderness with palpation~No spasm, no rash, no midline deformity, no palpable step off. ~Truncal ROM appears to be WNL and without signs of provocationOrdersStart Date;Description;Frequency;Ordered By;Status09/21/2020;ABDOMEN-SINGLE (KUB) ;Once;EDGARDO CROWE;Today;CBC DIFF ;Once;EDGARDO CROWE;;COMPREHENSIVE PANEL ;Once;EDGARDO CROWE;;Point of Care URINE DIPSTICK ;Once;EDGARDO CROWE;09/21/2020;CULTURE URINE ;Once;EDGARDO CROWE;;Point of Care /URINE ;Once;EDGARDO CROWE;Laboratory resultsNo Lab Results for the past 24 hoursOrder;Test;Value;Reference Range;Comments;Status;CollectionEKG/Rhythm Strip InterpretationProgress Time 1: 2100 Progress comments 1: Informed by staff that patient eloped from the department without notice. ~She was stable~I did not have another encounter with the patient prior to her departure Diagnosis: Acute on chronic flank pain, Drug Seeking Behavior, Elopement from the department Diagnosis level 1Disposition time: 2100 Discharge condition: stable, Discharge plan: Patient eloped from department prior to work up, no instructions provided Disposition: homePatient did not require critical care timeMidlevel signature: EDGARDO CROWE [facility]ENTERidlevel signature date: 09/26/2020 22:42Attending Physician Attestation comments: I have reviewed the mid-level documentation, agree with the documentation, medical decision making and treatment plan as outlined by the mid-level provider.Physician signature: Michelle RICK signature date: 10/07/2020 02:09 Name Value Range Interpretation Code Description Data Victoria rce(s) Supporting Document(s) ID Date Data Source [id number] 10/06/2020 08:54:00 AM EDT [facility] Name Value Range Interpretation Code Description Data Victoria rce(s) Supporting Document(s) Hemoglobin A1c/Hemoglobin.total in Blood 4.9 % 4.1-6.5 [facility] ([facility]) ID Date Data Source [id number] 10/06/2020 08:54:00 AM EDT [facility] Name Value Range Interpretation Code Description Data Victoria rce(s) Supporting Document(s) Potassium [Moles/volume] in Serum or Plasma 3.8 meq/L 3.5-5.3 [facility] Sodium [Moles/volume] in Serum or Plasma 139 meq/L 135-145 [facility] ([facility]) Chloride [Moles/volume] in Serum or Plasma 108 meq/L 94-110 [facility] ([facility]) Anion gap in Serum or Plasma 11 5-16 [facility] ([facility]) Carbon dioxide, total [Moles/volume] in Serum or Plasma 24 meq/L 22 -33 [facility] ([facility]) Urea nitrogen [Mass/volume] in Serum or Plasma 14 mg/dL 7-25 [facility] ([facility]) Glomerular filtration rate/1.73 sq M.pre dicted [Volume Rate/Area] in Serum or Plasma by Creatinine-based formula (MDRD) 81.2 mL/min [facility] ([facility]) Stage G2 - Mildly decreased kidney funct ion The GFR is an estimate of the Glomerular Filtration Rate. It is an aid to assess a patient's renal function. It is not a conclusive diagnosis of kidney disease. GFR normal is >=90 The MDRD GFR calculation is considered valid between the ages of 18 and 75 years only. Creatine [Mass/volume] in Serum or Plasma 0.8 mg/dL 0.6-1.4 [facility] ([facility]) Glucose [Mass/volume] in Serum or Plasma 82 mg/dL 70-100 [facility] ([facility]) Urea nitrogen/Creatinine [Mass Ratio] in Serum or Plasma 17 8 -36 [facility] ([facility]) Calcium [Mass/volume] in Serum or Plasma 9.6 mg/dL 8.7-10.5 [facility] ([facility]) ID Date Data Source [id number] 10/06/2020 08:49:[place] [address] HEALTH INFORMATION MANAGEMENT ED/UC Physician Report : [id number] Signed Patient: Taniya Field Acct:[id number] Unit: [facility] [id number] : 1985 Arrival Date: 10/06/20 Age/Sex: 34 / F Arrival Time: 0801 Copies to: Fortunato Contreras MD General Adult HPI/ROS General Chief Complaint: Flank Pain Stated Complaint: Left Side Pain Source: Patient Mode of arrival: Ambulatory Limitations: Reports No limitations History of Present Illness Initial Comments: Patient has left flank pain since yesterday. Believes she has a kidney stone. States that she has previously had kidney stones. Does not see size painter routinelyfor her back pain any more. Followed by Dr. Phillips for the flank pain. No nausea vomiting. Pain is constant in the left flank radiating around to the left lower quadrant. No diarrhea. Patient has chronic hematuria. No fevers or chills. Related Data Home Medications Medication Instructions Recorded enoxaparin 120 mg/0.8 mL 120 mg SUBCUT Q12H 03/29/20 subcutaneous syringe (Lovenox) baclofen 10 mg tablet 10 mg PO DAILY 05/11/20 buspirone 10 mg tablet 10 mg PO BID 05/11/20 levocetirizine 5 mg tablet (Xyzal) 5 mg PO DAILY 05/11/20 mirtazapine 15 mg tablet (Remeron) 15 mg PO DAILY 05/11/20 venlafaxine 37.5 mg tablet 37.5 mg PO DAILY 05/11/20 Allergies Penicillins Allergy (Intermediate, Verified 10/06/20 08:22) RASH/HIVES ibuprofen Adverse Reaction (Severe, Verified 10/06/20 08:22) contraindication with blood thinner Review of Systems All systems: Reviewed and negative except as stated in HPI. General: Denies Fever or Chills GI: Reports Pain; Denies Nausea or Vomiting : Reports Hematuria Social History Social History Other: lives with sister and sisters children History of Smoking/Tobacco Use: Unknown if Ever Smoked Tobacco Product: Reports Cigarettes Alcohol use: Reports None Drug use: Reports None Occupation: [employer] Lives with: Reports Alone PMH/PSH Medical History (Updated 10/06/20 @ 08:[address] Kyree John MD) Asthma Diverticulitis Factor 5 Leiden mutation, heterozygous Hypertension Kidney stone Pulmonary emboli Rotator cuff strain Surgical History History of appendectomy (Surgical) Hx of cholecystectomy (Surgical) Family History Other No pertinent family history Patient denies significant medical history Physical Exam Physical Exam General appearance: Alert, In distress mild due to: Pain and Obese Head Head Exam: Atraumatic and Normcephalic Eye Eye Exam: Conjunctiva normal and Sclera normal ENT ENT Exam: External ear normal and Nose normal Neck Neck Exam: Full ROM, Supple and Trachea Midline Cardiac Ca rdiac: Present: Regular rate and rhythm and Radial pulses normal equal Murmur: Present: None; Absent: Diastolic or Systolic Heart Sounds: Absent: Gallops or Rubs Lung/Chest Lung/Chest Exam: Clear, Normal Exchange and No chest wall tenderness Abdomen Abdominal Exam: Soft, Nondistended, Nontender and No guarding Back Back Exam: Full ROM, No Deformity and Skin Normal Upper Extremity Upper Extremity Exam: moving upper extremity with no deformities, swellings or pain. Full range ofmovement Vascular: capillary refill Lower Extremity Lower Extermity Normal: Full ROM and Nontender Neuro Neuro Normal: Alert, Oriented x 3, Fluent speech, Gait normal and Strength 5/5 all extremities Psych Psych Normal: Normal Affect Skin Skin exam: Dry, Intact, [place] and Warm Course Vital Signs Vital signs: Vital Signs 10/06/20 08:19 Temperature 98.5 F Pulse Rate 81 Respiratory Rate 16 Blood Pressure 133/88 O2 Sat by Pulse Oximetry 100 Medical Decision Making/CCT Hyperglycemia Identified Hyperglycemia identified in patient?: No Medical Decision Making Medical Decision Making: The patient has been seen multiple times in the emergency room for left flank pain. She always presents stating that she thinks she has a kidney stone and has had numerousnegative CT scan results. I had previously seen her and had recorded a large number of negative CT scan results. I discussed this with the patient in the room. She is demanding a CT scan. Advised her that I was happy to treat her symptoms, run her labs and get an ultrasound of her kidney which she consented to. Shortly after I left the room, the nurse went into the room to administer treatments and start an IV in the patient had left the department. She appears to have walked out. She has not seen by nursing staff leaving the department. Critical Care Time Critical Care Time: No Discharge Plan Disposition Clinical Impression: Left flank pain, Left against medical advice Provider stated Dispo: AMA Prescriptions: No Action enoxaparin [Lovenox] 120 mg/0.8 mL syringe 120 mg subcut Q12H RF: 0 baclofen 10 mg tablet 10 mg PO DAILY RF: 0 venlafaxine 37.5 mg tablet 37.5 mg PO DAILY RF: 0 buspirone 10 mg tablet 10 mg PO BID RF: 0 mirtazapine [Remeron] 15 mg tablet 15 mg PO DAILY RF: 0 levocetirizine [Xyzal] 5 mg tablet 5 mg PO DAILY RF: 0 Referrals: Fortunato Contreras MD [Primary Care Provider] - Stand Alone Forms: Portal Instructions Patient agreeable to discharge: Patient/Guardian understands and is agreeable to discharge plan Provider in triage note Vital Signs Vital Signs: I O (Last 24 Hours) 10/04/20 10/05/20 10/06/20 23:59 23:59 23:59 Other: Weight 118 kg Vital Signs (Last 8 Hours) Temp Pulse Resp BP Pulse Ox 10/06/20 08:19 98.5 F 81 16 133/88 100 Date/Time <<Signature on File>> Initializing User: Kyree John MD 10/06/20 0849 Signed by: Kyree John MD 10/06/20 1923 Name Value Range Interpretation Code Description Data Victoria rce(s) Supporting Document(s) ID Date Data Source [id number] 10/06/2020 07:56:00 AM EDT [facility] Name Value Range Interpretation Code Description Data Victoria rce(s) Supporting Document(s) Laboratory test finding (navigational concept) Laboratory test result [facility]) NO URINE RECEIVED Patient informed to return with specimen. ID Date Data Source [id number] 10/06/2020 11:33:00 AM T [facility] NO URINE SENT FOR UA Name Value Range Interpretation Code Description Data Victoria rce(s) Supporting Document(s) SODIUM 139 MEQ/L 135-145 N [facility] POTASSIUM 3.8 MEQ/L 3.5-5.3 [facility] CHLORIDE 108 MEQ/L 94-110 [facility] CARBON DIOXIDE 24 MEQ/L 22-33 N [facility] ANION GAP 11 5-16 N [facility] BLOOD UREA NITRO 14 MG/DL 7-25 [facility] CREATININE 0.8 MG/DL 0.6-1.4 [facility] GFR 81.2 ML/MIN [facility] Stage G2 - Mildly decreased kidney func tion The GFR is an estimate of the Glomerular Filtration Rate. It is an aid to assess a patient's renal function. It is not a conclusive diagnosis of kidney disease. GFR normal is >=90 The MDRD GFR calculation is considered valid between the ages of 18 and 75 years only. BUN/CREAT RATIO 17 8-36 [facility] GLUCOSE 82 MG/DL 70-100 [facility] CA 9.6 MG/DL 8.7-10.5 [facility] ID Date Data Source [id number] 10/06/2020 11:33:00 AM EDT [facility] NO URINE SENT FOR UA Name Value Range Interpretation Code Description Data Victoria rce(s) Supporting Document(s) GLYCOSYLATED HGBA1C 4.9 % 4.1-6.5 [facility] ID Date Data Source [id number] 10/08/2020 07:57:00 AM EDT [facility] NO URINE SENT FOR UA Name Value Range Interpretation Code Description Data Victoria rce(s) Supporting Document(s) NO URINE RECEIVED FROM PATIENT NO [facility]INE [facility] Patient informed to return with specime n. ID Date Data Source [id number] 10/05/2020 04:18:00 PM EDT [facility] Name Value Range Interpretation Code Description Data Victoria rce(s) Supporting Document(s) Hemoglobin A1c/Hemoglobin.total in Blood Laboratory test result [facility] ([facility]) ID Date Data Source [id number] 09/26/2020 08:51:00 AM EDT [facility] Name Value Range Interpretation Code Description Data Victoria rce(s) Supporting Document(s) Alt/SGPT 65 U/L 12-78 [facility] Alkaline Phosphatase 110 U/L 45-117 [facility]) Ast/Sgot 56 U/L 7-37 Above high normal [facility]) Bilirubin,Direct Laboratory test result 0.0-0.2 [facility] ([facility]) Total Protein 7.2 GM/DL 6.4-8.2 [facility]) Bilirubin,Total 0.3 mg/dL 0.2-1.0 [facility] Albumin/Globulin Ratio 1.0 1.2-2.2 Below low normal [facility]) Albumin 3.6 GM/DL 3.2-5.2 [facility] ID Date Data Source [id number] 09/26/2020 08:51:00 AM EDT [facility] Name Value Range Interpretation Code Description Data Victoria rce(s) Supporting Document(s) White Blood Count 6.6 10 4.0-10.0 [facility]) Hemoglobin 13.1 g/dL 12.0-15.5 [facility] Red Blood Count 4.32 10 4.00-5.40 [facility] Mean Corpuscular Volume 93.3 fl 80.0-96.0 M [facility] ([facility]) Hematocrit 40.3 % 36.0-47.0 [facility] Mean Corpuscular Hemoglobin 30.3 pg 27.0-33.0 [facility]) Red Cell Distribution Width 15.8 % 11.5-14.5 Above high normal [facility] ([facility]) Mean Corpuscular HGB Conc 32.5 g/dL 32.0-36.5 [facility] ([facility]) Lymph % 30.3 % 24.0-44.0 [facility] Neutrophils % 59.7 % 36.0-66.0 [facility]) Platelet Count, Automated 284 10 150-450 [facility]) Kidder % 7.5 % 2.0-8.0 [facility]) Eos % 1.2 % 0.0-3.0 [facility]) Baso % 0.5 % 0.0-1.0 [facility]) Nucleated Red Blood Cell % 0.0 % 0-0 [facility] ([facility]) Immature Granulocyte % 0.8 % 0-3.0 [facility]) Neutrophils # 4.0 10 1.5-8.5 [facility]) Lymph # 2.0 10 1.5-5.0 [facility] Baso # 0.0 10 0.0-0.2 [facility] Eos # 0.1 10 0.0-0.5 [facility] Kidder # 0.5 10 0.0-0.8 [facility] ID Date Data Source [id number] 09/26/2020 08:51:00 AM EDT [facility]) Name Value Range Interpretation Code Description Data Victoria rce(s) Supporting Document(s) Prothrombin Time 12.3 s 12.5-14.3 [facility]) Inr 0.90 [facility] THERAPUTIC HUMAN INR VALUES INDICATIONS NORMAL RANGES PROPHYLAXIS/TREATMENT OF: VENOUS THROMBOSIS 2.0-3.0 PULMONARY EMBOLISM 2.0-3.0 PREVENTION OF SYSTEMIC EMBOLISM FROM: TISSUE HEART VALVES 2.0-3.0 ACUTE MYOCARDIAL INFARCTION 2.0-3.0 VALVULAR HEART DISEASE 2.0-3.0 ATRIAL FIBRILLATION 2.0-3.0 MECHANICAL VALVES(HIGH RISK) 2.5-3.5 RECURRENT MYOCARDIAL INFARCTION 2.5-3.5 ID Date Data Source [id number] 09/26/2020 08:51:00 AM EDT [facility]) Name Value Range Interpretation Code Description Data Victoria rce(s) Supporting Document(s) aPTT in Platelet poor plasma by Coagulation assay 23.5 s 24.2-38.5 Below low normal [facility]) ID Date Data Source [id number] 09/26/2020 08:51:00 AM EDT [facility]) Name Value Range Interpretation Code Description Data Victoria rce(s) Supporting Document(s) Glucose, Fasting 101 mg/dL 70-100 Above high normal M [facility] ([facility]) Blood Urea Nitrogen 13 mg/dL 7-18 [facility] ([facility]) Sodium Level 140 meq/L 136-145 [facility] ([facility]) Creatinine For GFR 0.72 mg/dL 0.55-1.30 [facility]) Glomerular Filtration Rate Laboratory test result [facility]) <content>Units are mL/min/1.73 m2</content>
<content></content>
<content>Chronic Kidney Disease Staging per NKF:</content>
<content></content>
<content>Stage I & II GFR >=60 Normal to Mildly Decreased</content>
<content>Stage III GFR 30-59 Moderately Decreased</content>
<content>Stage IV GFR 15-29 Severely Decreased</content>
<content>Stage V GFR <15 Very Little GFR Left</content>
<content>ESRD GFR <15 on [employer]</content>
<content></content> Potassium Serum 4.3 meq/L 3.5-5.1 [facility]) Chloride Level 108 meq/L 98-107 Above high normal [facility] ([facility]) Anion Gap 9 meq/L 8-16 [facility]) Calcium Level 9.0 mg/dL 8.5-10.1 [facility]) Carbon Dioxide Level 23 meq/L 21-32 [facility]) ID Date Data Source [id number] 09/26/2020 08:51:00 AM EDT [facility] Name Value Range Interpretation Code Description Data Victoria rce(s) Supporting Document(s) Color, Urine RFX Laboratory test result [facility] ([facility]) Appearance, Urine RFX Laboratory test result Above high no rmal [facility] ([facility]) PH,Urine RFX 6.0 units 5.0-9.0 [facility]) Specific [place] Ur Auto RFX 1.021 1.002-1.035 [facility]) Glucose, Urine (Ua) Auto RFX Laboratory test result [facility]) Protein, Urine Auto RFX Laboratory test result Above high normal [facility]) Ketone, Urine Auto RFX Laboratory test result [facility]) Urobilinogen, Urine Auto RFX 0.2 mg/dL 0.0-2.0 [facility]) Bilirubin, Urine Auto RFX Laboratory test result [facility] ([facility]) Nitrite, Urine Auto RFX Laboratory test result [facility] ([facility]) WBC, Urine Auto RFX 9 /HPF 0-3 Above high normal [facility] ([facility]) Blood, Urine Blood RFX Laboratory test result Above high n ormal [facility] ([facility]) Leukocyte Esterase Ur Auto RFX Laboratory test result Abov e high normal [facility] ([facility]) RBC, Urine Auto RFX Laboratory test result 0-3 Above high norm al [facility] ([facility]) Bacteria, Urine Auto RFX Laboratory test result [facility] ([facility]) Hyaline Cast, Urine Auto RFX 0 /LPF 0-1 [facility] ([facility]) Squam Epithelial Cell Ur Aurfx 9 /HPF 0-6 [facility] ([facility]) ID Date Data Source [id number] 09/26/2020 08:51:00 AM EDT [facility] Name Value Range Interpretation Code Description Data Victoria rce(s) Supporting Document(s) Reflex Urine Culture Laboratory test result [facility] FULL REPORT IN LAB NOTES ([facility] and [facility] ). SPECIMEN APPEARS CONTAMINATED ID Date Data Source [id number] 09/26/2020 08:51:00 AM EDT [facility] Name Value Range Interpretation Code Description Data Victoria rce(s) Supporting Document(s) Lipase [Enzymatic activity/volume] in Serum or Plasma 100 U/L 73-3 93 [facility] ([facility]) Choriogonadotropin.beta subunit ( test) [Pres ence] in Serum or Plasma Laboratory test result [facility] ([facility]) ID Date Data Source [id number] 09/21/2020 09:00:00 PM EDT [facility] Name Value Range Interpretation Code Description Data Victoria rce(s) Supporting Document(s) SODIUM 142 mmol/L 136-145 [facility] POTASSIUM 3.7 mmol/L 3.5-5.2 [facility] CHLORIDE 106 mmol/L 100-108 [facility] CO2 27 mmol/L 21-32 [facility] GLUCOSE 90 mg/dL 70-100 [facility] BUN 15 mg/dL 7-21 [facility] CREATININE 0.9 mg/dL 0.6-1.3 [facility] Normal Kidney Function or Mild Disease - GFR >OR= 60Chronic Kidney Disease - GFR 15-59Renal Failure - GFR < 15GFR not calculated on patients under 18 years of age. CALCIUM 9.5 mg/dL 8.5-10.8 [facility] GFR >60 [facility] T BILI 0.3 mg/dL 0.0-1.2 [facility] T PROTEIN 7.0 gm/dL 6.4-8.2 [facility] ALBUMIN 3.9 gm/dL 3.4-4.8 [facility] ALK PHOS 98 U/L 40-150 [facility] ALT (SGPT) 45 U/L 0-55 [facility] AST (SGOT) 38 U/L 5-37 H [facility] ID Date Data Source [id number] 09/21/2020 08:32:00 PM [facility] Name Value Range Interpretation Code Description Data Victoria rce(s) Supporting Document(s) WBC 7.8 K/uL 4.8-10.8 [facility] RBC 4.05 M/uL 4.20-5.40 L [facility] HEMOGLOBIN 12.9 gm/dL 12.0-16.0 [facility] HEMATOCRIT 37.5 % 36.0-48.0 [facility] MCV 92.6 fL 80.0-100.0 [facility] MCHC 34.5 % 30.0-36.5 [facility] MCH 32.0 pg 27.0-34.0 [facility] RDW 15.5 % 11.0-15.0 H [facility] PLATELET 298 K/uL 130-450 [facility] MPV 6.8 fL 6.0-12.0 [facility] NE% 61 % 37-80 [facility] LY% 31 % 10-50 [facility] MO% 7 % 0-12 [facility] Eosinophils [#/volume] in Blood by Automated count 1 % <=8 [facility] BA% 0 % <=3 [facility] NE# 4.8 K/uL 1.8-8.6 [facility] LYMPH# 2.4 K/uL 0.5-5.0 [facility] MONO# 0.5 K/uL 0.0-1.3 [facility] EOS# 0.1 K/uL 0.0-0.9 [facility] BASO# 0.0 K/ul 0.0-0.3 [facility] ID Date Data Source [id number] 09/17/2020 05:12:07 PM EDT [facility] Note Status: FINAL (SIGNED)Full Name: Kade JONES Date: 1985Visit ID: [id number] Record Number: [id number]: 34YSex: FemaleRoom Location: UNKNOWN_ROOMBed Location: UNKNOWN_BEDDate of Service: 08/19/2020 17:42Creation Date: 08/19/2020 17:42Created By: [facility] Physician: FORTUNATO CONTRERASTime patient first seen: 172 Informant: PatientHPI Chief Complaint: Left lower quadrant/flank painHPI comments: 34-year-old female with a history of PE, Factor V Leiden, on Lovenox presents for left flank/abdominal pain started on Thursday. Seen at this emergency room that day and had labs and ultrasound which did not show any hydronephrosis. She has had recent CT scans for similar pain and no acute finding seen on the CT scan. Pain was improving until this morning and then it came back more painful. She had associated vomiting. She does have a history of kidney stones and noted possibly some blood in her urine today. History of appendectomy and cholecystectomy. Scheduled to see her PCP tomorrow. Denies diarrhea. Moving her bowels normally. No dysuria. No fever or chills.Review of SystemsAll systems reviewed and negative except as noted in HPIED Triage Note: pt c/o abdominal pain, pt was seen here on last week for same, states "it's just getting worse", c/o vomiting "due to pain", denies diarrhea, states no appetite, pt denies any urinary difficulties, pt states she took tylenol 1000mg at 1500 [GARCÍA DUVAL 08/19/20 16:56]Past Medical/Surgical HistoryPast medical/surgical history reviewedFull problems and procedures listProblem;Associated ICD-10-CM Code;Status;OnsetAppendectomy;None Associated;Completed;UnknownAsthma;None Associated;Active;UnknownCholecystectomy;None Associated;Completed;UnknownHypercholesterolemia;None Associated;Activ e;UnknownHome MedicationsHome medications reviewedcetirizine, 10 milligram orally daily PRN allergy symptoms Enoxaparin, 120 milligram subcutaneously every 12 hours HYDROcodone-acetaminophen 5 mg-325 mg, 1 tablet orally every 4 hours PRN pain methocarbamoL, 500 milligram orally daily Multivitamins Tablet, 1 tablet orally daily AllergiesAllergies reviewedLast Verified By: GARCÍA DUVAL RN on 08/19/2020 16:57Motrin(on blood thinner), Penicillin V(Rash) Family HistoryFamily history reviewedMother (alive) 43Y Benign essential hypertension, Father 50Y ( [place] ) Social history reviewedVital SignsVital signs reviewedMaximum temperature within the last 24 hours: 97.8 FDate/time of maximum temperature: 08/19/2020 16:53Most recent vital signsBP: 151/78 08/19/2020 16:53 Pulse: 88 08/19/2020 16:53 Temp: 97.8 F 08/19/2020 16:53 Resp: 18 08/19/2020 16:53 O2 Sat: 100.0%(Room Air) 08/19/2020 16:53 Calculated BMI: 51.9 08/19/2020 16:53 Admission height (inches): 61Admission weight (kgs): 123.2Triage Vital SignsTemp: 97.8F 08/19/2020 16:53 Pulse: 88 bpm 08/19/2020 16:53 Respirations: 18 08/19/2020 16:53 Blood Pressure: 151/78 mmHg 08/19/2020 16:53 O2Sat: 100 % 08/19/2020 16:53 Height: 61 in 08/19/2020 16:53 Weight: 123.2 kg 08/19/2020 16:53 Calculated BMI: 51.9 08/19/2020 16:53 Physical ExamConst: Within normal limits, no apparent distress, comments: No distress sitting on the ED stretcher with her legs over the side holding her left flank, does not look like she is in any significant pain.Eyes: within normal limitsCVS: Within normal limits, Regular rate and rhythm, No rubs/gallops/murmursResp: Within normal limits, Clear to auscultation bilaterally, No wheezes/rales/rhonchiGI comments: Mild tenderness to left flank.Musc: Within normal limitsExtrem: Within normal limitsNeuro: Within normal limitsSkin: Within normal limitsBack: No CVA tendernessInitial impression: Renal colic, diverticulitis, UTI, pyelonephritis, abscess OrdersStart Date;Description;Frequency;Ordered By;Status08/19/2020;ED INITIATE ABDOMINAL PAIN PATHWAY ;Once;PRAKASH JASSO;Today08/19/2020;IV - PERIPHERAL - INSERT & MAINTAIN ;Once;PRAKASH JASSO;Today08/19/2020;ONDANSETRON HCL (PF) 4 MG/2 ML IVP ;ED - ONE TIME ONLY;PRAKASH JASSO;Inactive08/19/2020;SODIUM CHLORIDE 0.9% 1,000 ML IV ;ED - ONE TIME ONLY;PRAKASH JASSO;Inactive08/19/2020;AMYLASE ;Once;PRAKASH JASSO;08/19/2020;CBC DIFF ;Once;PRAKASH JASSO;Today08/19/2020;COMPREHENSIVE PANEL ;Once;PRAKASH JASSO;Today08/19/2020;LACTIC ACID ;Once;PRAKASH JASSO;Today08/19/2020;LIPASE ;Once;PRAKASH JASSO;08/19/2020;PT/INR ;Once;PRAKASH JASSO;Today08/19/2020;PTT ;Once;PRAKASH JASSO;08/19/2020;ACETAMINOPHEN 650 MG OR AL ;ED - ONE TIME ONLY;PRAKASH JASSO;Inactive08/19/2020;Point of Care /URINE ;Once;PRAKASH JASSO;Today08/19/2020;Point of Care URINE DIPSTICK ;Once;PRAKASH JASSO;Today08/20/2020;ED-NPO ;Meals;PRAKASH JASSO;Future;MORPHINE 4 MG/1 ML IVP ;ED - ONE TIME ONLY;PRAKASH JASSO;;HYDROCODONE-ACETAMINOPHEN 5-325MG 1 TAB ORAL ;ED - ONE TIME ONLY;PRAKASH JASSO;Laboratory resultsLab Results for the past 24 hoursOrder;Test;Value;Reference Range;Comments;Status;CollectionAMYLASE;AMYLASE;47;(25-125 U/L);;Final Result ;08/19/2020 17:44:00CBC DIFF;WBC;10.9 H;(4.8-10.8 K/uL);;Final Result ;08/19/2020 17:44:00CBC DIFF;RED BLOOD CELL;4.43;(4.20-5.40 M/uL);;Final Result ;08/19/2020 17:44:00CBC DIFF;HEMOGLOBIN;13.1;(12.0-16.0 gm/dL);;Final Result ;08/19/2020 17:44:00CBC DIFF;HEMATOCRIT;39.5;(36.0-48.0 %);;Final Result ;08/19/2020 17:44:00CBC DIFF;MCV;89.1;(80.0-100.0 fL);;Final Result ;08/19/2020 17:44:00CBC DIFF;MCHC;33.3;(30.0-36.5 %);;Final Result ;08/19/2020 17:44:00CBC DIFF;MCH;29.6;(27.0-34.0 pg);;Final Result ;08/19/2020 17:44:00CBC DIFF;RDW;15.9 H;(11.0-15.0 %);;Final Result ;08/19/2020 17:44:00CBC DIFF;PLATELET COUNT;314;(130-450 K/uL);;Final Result ;08/19/2020 17:44:00CBC DIFF;MPV;6.7;(6.0-12.0 fL);;Final Result ;08/19/2020 17:44:00CBC DIFF;NEUTROPHIL;67;(37-80 %);;Final Result ;08/19/2020 17:44:00CBC DIFF;LYMPHOCYTE;25;(10-50 %);;Final Result ;08/19/2020 17:44:00CBC DIFF;MONOCYTE;7;(0-12 %);;Final Result ;08/19/2020 17:44:00CBC DIFF;EOSINOPHIL;1;( < =8 %);;Final Result ;08/19/2020 17:44:00CBC DIFF;BASOPHIL;1;( < =3 %);;Final Result ;08/19/2020 17:44:00CBC DIFF;DEAN#;7.2;(1.8-8.6 K/uL);;Final Result ;08/19/2020 17:44:00CBC DIFF;LYMPHOCYTE #;2.7;(0.5-5.0 K/uL);;Final Result ;08/19/2020 17:44:00CBC DIFF;MONOCYTE #;0.7;(0.0-1.3 K/uL);;Final Result ;08/19/2020 17:44:00CBC DIFF;EOSINOPHIL #;0.1;(0.0-0.9 K/uL);;Final Result ;08/19/2020 17:44:00CBC DIFF;BASOPHIL #;0.1;(0.0-0.3 K/ul);;Final Result ;08/19/2020 17:44:00COMPREHENSIVE PANEL;SODIUM;139;(136-145 mmol/L);;Final Result ;08/19/2020 17:44:00COMPREHENSIVE PANEL;POTASSIUM;3.8;(3.5-5.2 mmol/L);;Final Result ;08/19/2020 17:44:00COMPREHENSIVE PANEL;CHLORIDE;105;(100-108 mmol/L);;Final Result ;08/19/2020 17:44:00COMPREHENSIVE PANEL;CARBON DIOXIDE;26;(21-32 mmol/L);;Final Result ;08/19/2020 17:44:00COMPREHENSIVE PANEL;GLUCOSE;95;(70-100 mg/dL);;Final Result ;08/2020 17:44:00COMPREHENSIVE PANEL;BUN;15;(7-21 mg/dL);;Final Result ;08/19/2020 17:44:00COMPREHENSIVE PANEL;Creatinine;0.8;(0.6-1.3 mg/dL);;Final Result ;08/19/2020 17:44:00COMPREHENSIVE PANEL;CALCIUM;9.7;(8.5-10.8 mg/dL);;Final Result ;08/19/2020 17:44:00COMPREHENSIVE PANEL;GFR; > 60;;;Final Result ;08/19/2020 17:44:00COMPREHENSIVE PANEL;TOTAL BILIRUBIN;0.4;(0.0-1.2 mg/dL);;Final Result ;08/19/2020 17:44:00COMPREHENSIVE PANEL;TOTAL PROTEIN;7.5;(6.4-8.2 gm/dL);;Final Result ;08/19/2020 17:44:00COMPREHENSIVE PANEL;ALBUMIN;4.2;(3.4-4.8 gm/dL);;Final Result ;08/19/2020 17:44:00COMPREHENSIVE PANEL;ALK PHOS;114;(40-150 U/L);;Final Result ;08/19/2020 17:44:00COMPREHENSIVE PANEL;ALT(SGPT);44;(0-55 U/L);;Final Result ;08/2020 17:44:00COMPREHENSIVE PANEL;AST (SGOT);32;(5-37 U/L);;Final Result ;08/19/2020 17:44:00LACTIC ACID;LACTIC ACID;1.1;(0.5-2.2 mmol/L);;Final Result ;08/19/2020 17:44:00LIPASE;LIPASE;24;(8-78 U/L);;Final Result ;08/19/2020 17:44:00PT/INR;PROTIME;11.3;(9.4-12.4 sec);;Final Result ;08/19/2020 17:44:00PT/INR;INR;1.0;;;Final Result ;08/19/2020 17:44:00PTT;PTT;30.6;(25.6-36.4 sec);;Final Result ;08/19/2020 17:44:00EKG/Rhythm Strip InterpretationProgress Time 1: 1730 Progress comments 1: Patient was seen and evaluated labs, urinalysis, urine . Zofran, tylenol and fluids.Progress time 2: 1909 Progress comments 2: Labs are nonactionable. Urinalysis without significant findings. Negative . Chronic pain, unclear etiology but has had multiple work-ups including ultrasounds and CT scan with no identifiable cause. No CT scan indicated today. Adhesions? Patient has an appointment tomorrow with her primary care physician to keep appointment as scheduled. Safe for discharge. Requesting a return to work note for tomorrow.Diagnosis: Acute on chronic left flank painDiagnosis level 3Disposition time: 1909 Discharge condition: stableDischarge plan: as aboveDisposition: homePatient did not require critical care timeMidlevel signature: Guerda RODRIGUEZ signature date: 08/19/2020 20:35Attending Physician Attestation: I have reviewed the midlevel documentation, agree with the documentation, medical decision making an d treatment plan as outlined by the midlevelPhysician signature: Asim MITCHELL signature date: 08/22/2020 20:12 Name Value Range Interpretation Code Description Data Victroia rce(s) Supporting Document(s) ID Date Data Source [id number] 09/05/2020 02:33:00 PM EDT [facility] Name Value Range Interpretation Code Description Data Victoria rce(s) Supporting Document(s) Laboratory test finding (navigational concept) 36.0 % 3 8.0-51.0 Below low normal [facility] ([facility]) Laboratory test finding (navigational concept) 139 meq/L 136-145 [facility] ([facility]) Laboratory test finding (navigational concept) 88 mg/dL 70-105 [facility] ([facility]) Laboratory test finding (navigational concept) 4.0 meq/L 3.5-5.1 [facility] ([facility]) Laboratory test finding (navigational concept) 103 meq/L 98-109 [facility] ([facility]) Laboratory test finding (navigational concept) 4.8 mg/dL 4.5-5.3 [facility] ([facility]) Laboratory test finding (navigational concept) 26.0 MM/L 23.0-27.0 [facility] ([facility]) Laboratory test finding (navigational concept) 0.6 mg/dL 0.6-1.3 [facility] ([facility]) Laboratory test finding (navigational concept) 12 mg/dL 8-26 [facility] ID Date Data Source [id number] 09/05/2020 02:20:00 PM EDT [facility] Name Value Range Interpretation Code Description Data Victoria rce(s) Supporting Document(s) Laboratory test finding (navigational concept) Laboratory test result [facility] ([facility]) <content>QUANTITATIVE RESULT QU ALITATIVE INTERPRETATION</content>
<content> </content>
<content><5.0 IU/L NEGATIVE</content>
<content>5.0 - 25.0 IU/L INDETERMINATE</content>
<content>>25.0 IU/L POSITIVE</content>
<content></content> ID Date Data Source [id number] 09/05/2020 12:05:00 PM EDT [facility] ([facility]) Name Value Range Interpretation Code Description Data Victoria e(s) Supporting Document(s) Laboratory test finding (navigational concept) Laboratory test result [facility] ([facility]) <content>QUANTITATIVE RESULT QU ALITATIVE INTERPRETATION</content>
<content> </content>
<content><5.0 IU/L NEGATIVE</content>
<content>5.0 - 25.0 IU/L INDETERMINATE</content>
<content>>25.0 IU/L POSITIVE</content>
<content></content> ID Date Data Source [id number] 09/05/2020 11:53:00 AM EDT [facility]) Name Value Range Interpretation Code Description Data Victoria rce(s) Supporting Document(s) Laboratory test finding (navigational concept) 39.0 % 38.0-51.0 [facility] ([facility]) Laboratory test finding (navigational concept) 119 mg/dL 7 0-105 Above high normal [facility] ([facility]) Laboratory test finding (navigational concept) 5.0 mg/dL 4.5-5.3 [facility] ([facility]) Laboratory test finding (navigational concept) 139 meq/L 136-145 [facility] ([facility]) Laboratory test finding (navigational concept) 4.0 meq/L 3.5-5.1 [facility] ([facility]) Laboratory test finding (navigational concept) 100 meq/L 98-109 [facility] ([facility]) Laboratory test finding (navigational concept) 25.0 MM/L 23.0-27.0 [facility] ([facility]) Laboratory test finding (navigational concept) 13 mg/dL 8-26 [facility] ([facility]) Laboratory test finding (navigational concept) 0.6 mg/dL 0.6-1.3 [facility] ([facility]) ID Date Data Source [id number] 08/22/2020 12:00:00 AM EDT [facility] Name Value Range Interpretation Code Description Data Victoria rce(s) Supporting Document(s) SARS-CoV2 Rapid Antigen Negative [facility] This lab was ordered by [facility] and reported by [facility]. ID Date Data Source [id number] 08/19/2020 06:17:00 PM EDT [facility] Name Value Range Interpretation Code Description Data Victoria rce(s) Supporting Document(s) AMYLASE 47 U/L 25-125 [facility] ID Date Data Source [id number] 08/19/2020 06:17:00 PM EDT [facility] Name Value Range Interpretation Code Description Data Victoria rce(s) Supporting Document(s) LIPASE 24 U/L 8-78 [facility] ID Date Data Source [id number] 08/19/2020 06:17:00 PM EDT [facility] CMP Name Value Range Interpretation Code Description Data Victoria rce(s) Supporting Document(s) SODIUM 139 mmol/L 136-145 [facility] POTASSIUM 3.8 mmol/L 3.5-5.2 [facility] CHLORIDE 105 mmol/L 100-108 [facility] CO2 26 mmol/L 21-32 [facility] GLUCOSE 95 mg/dL 70-100 [facility] BUN 15 mg/dL 7-21 [facility] CREATININE 0.8 mg/dL 0.6-1.3 [facility] Normal Kidney Function or Mild Disease - GFR >OR= 60Chronic Kidney Disease - GFR 15-59Renal Failure - GFR < 15GFR not calculated on patients under 18 years of age. CALCIUM 9.7 mg/dL 8.5-10.8 [facility] GFR >60 [facility] T BILI 0.4 mg/dL 0.0-1.2 [facility] T PROTEIN 7.5 gm/dL 6.4-8.2 [facility] ALBUMIN 4.2 gm/dL 3.4-4.8 [facility] ALK PHOS 114 U/L 40-150 [facility] ALT (SGPT) 44 U/L 0-55 [facility] AST (SGOT) 32 U/L 5-37 [facility] ID Date Data Source [id number] 08/19/2020 06:13:00 PM EDT [facility] Name Value Range Interpretation Code Description Data Victoria rce(s) Supporting Document(s) LACTIC ACID 1.1 mmol/L 0.5-2.2 [facility] ID Date Data Source [id number] 08/19/2020 06:08:00 PM EDT [facility] Name Value Range Interpretation Code Description Data Victoria rce(s) Supporting Document(s) PTT 30.6 sec 25.6-36.4 [facility] ID Date Data Source [id number] 08/19/2020 06:06:00 PM EDT [facility] Name Value Range Interpretation Code Description Data Victoria rce(s) Supporting Document(s) PROTIME 11.3 sec 9.4-12.4 [facility] INR 1.0 [facility] INR INTERPERTATION 2.0 -3.0 THERAPEUTIC MONITORING2.5-3.5 HEART VALVE REPLACEMENT ID Date Data Source [id number] 08/19/2020 05:56:00 PM EDT [facility] CBC WITH DIFF Name Value Range Interpretation Code Description Data Victoria rce(s) Supporting Document(s) WBC 10.9 K/uL 4.8-10.8 H [facility] RBC 4.43 M/uL 4.20-5.40 [facility] HEMOGLOBIN 13.1 gm/dL 12.0-16.0 [facility] HEMATOCRIT 39.5 % 36.0-48.0 [facility] MCV 89.1 fL 80.0-100.0 [facility] MCHC 33.3 % 30.0-36.5 [facility] MCH 29.6 pg 27.0-34.0 [facility] RDW 15.9 % 11.0-15.0 H [facility] PLATELET 314 K/uL 130-450 [facility] MPV 6.7 fL 6.0-12.0 [facility] NE% 67 % 37-80 [facility] LY% 25 % 10-50 [facility] MO% 7 % 0-12 [facility] Eosinophils [#/volume] in Blood by Automated count 1 % <=8 [facility] BA% 1 % <=3 [facility] NE# 7.2 K/uL 1.8-8.6 [facility] LYMPH# 2.7 K/uL 0.5-5.0 [facility] MONO# 0.7 K/uL 0.0-1.3 [facility] EOS# 0.1 K/uL 0.0-0.9 [facility] BASO# 0.1 K/ul 0.0-0.3 [facility] ID Date Data Source [id number] 08/16/2020 12:00:00 AM EDT [facility] Name Value Range Interpretation Code Description [facility] Supporting Document(s) SARS-CoV2 Rapid Antigen Negative [facility] This lab was ordered by [facility] and reported by [facility]. ID Date Data Source [id number] 08/15/2020 07:15:28 PM EDT [facility] left flank pain, r/o obstructive uropath y08/15/2020 6:21 PMRENAL ULTRASOUNDCLINICAL INFORMATION: left flank pain, r/o obstructive uropathy -- PAIN,UNSPECIFIEDCOMPARISON: Multiple prior studies, most recently 06/28/2020.TECHNIQUE: Sonographic evaluation of the kidneys and bladder was performedusing grayscale ultrasound.FINDINGS:Right Kidney: Measures 9.5 cm.Parenchyma: Normal homogeneous echotexture.Hydronephrosis: None.Calculi: None.Focal Lesions: None.Left Kidney: Measures 10.6 cm.Parenchyma: Normal homogeneous echotexture.Hydronephrosis: None.Calculi: None.Focal Lesions: None.Aorta: Non-aneurysmal.Inferior Vena Cava: Patent.Bladder: The bladder is minimally distended. This limits assessment for wallthickness.Jets: Bilateral ureteral jets are documented.Prevoid Volume: 165 cc.Postvoid Residual Volume: Patient did not void during the exam.Miscellaneous: Echogenic hepatic parenchyma suggesting steatosis.IMPRESSION:No hydronephrosis.END OF [facility]IONM[facility] submits [facility] results to [facility] then provides those same results to [facility]. Allresults are available to [facility] and [facility] provider portalusers. [facility] DICOM images are available to the[facility] provider portal users only. [facility] DICOMimages are not available to the [facility] provider portal users. There isno current [facility] cross-[facility] functionality allowing images to be available [facility] to [facility] connectivity.Electronically signed By: Scottie Vazquez MDRead By: SCOTTIE ROSASate: 08/15/2020 19:12 Name Value Range Interpretation Code Description Data [facility] Supporting Document(s) ID Date Data Source [id number] 08/15/2020 05:54:00 PM EDT [facility] Name Value Range Interpretation Code Description Data [facility] rce(s) Supporting Document(s) SODIUM 140 mmol/L 136-145 [facility] POTASSIUM 3.5 mmol/L 3.5-5.2 [facility] CHLORIDE 109 mmol/L 100-108 H [facility] CO2 23 mmol/L 21-32 [facility] GLUCOSE 91 mg/dL 70-100 [facility] BUN 18 mg/dL 7-21 [facility] CREATININE 0.9 mg/dL 0.6-1.3 [facility] Normal Kidney Function or Mild Disease - GFR >OR= 60Chronic Kidney Disease - GFR 15-59Renal Failure - GFR < 15GFR not calculated on patients under 18 years of age. CALCIUM 8.8 mg/dL 8.5-10.8 [facility] GFR >60 [facility] T BILI 0.3 mg/dL 0.0-1.2 [facility] T PROTEIN 7.1 gm/dL 6.4-8.2 [facility] ALBUMIN 4.0 gm/dL 3.4-4.8 [facility] ALK PHOS 102 U/L 40-150 [facility] ALT (SGPT) 43 U/L 0-55 [facility] AST (SGOT) 31 U/L 5-37 [facility] ID Date Data Source [id number] 08/15/2020 05:45:00 PM EDT [facility] Name Value Range Interpretation Code Description Data Victoria rce(s) Supporting Document(s) SERUM TEST NEGATIVE [facility] spital PREGS METHODOLOGY [facility] denise ID Date Data Source [id number] 08/15/2020 05:29:00 PM EDT [facility] CBC W/DIFF STAT Name Value Range Interpretation Code Description Data Victoria rce(s) Supporting Document(s) WBC 11.9 K/uL 4.8-10.8 H [facility] RBC 3.97 M/uL 4.20-5.40 L [facility] HEMOGLOBIN 11.7 gm/dL 12.0-16.0 L [facility] HEMATOCRIT 35.4 % 36.0-48.0 L [facility] MCV 89.2 fL 80.0-100.0 [facility] MCHC 33.1 % 30.0-36.5 [facility] MCH 29.5 pg 27.0-34.0 [facility] RDW 15.9 % 11.0-15.0 H [facility] PLATELET 317 K/uL 130-450 [facility] MPV 6.7 fL 6.0-12.0 [facility] NE% 69 % 37-80 [facility] LY% 24 % 10-50 [facility] MO% 6 % 0-12 [facility] Eosinophils [#/volume] in Blood by Automated count 1 % <=8 [facility] BA% 0 % <=3 [facility] NE# 8.3 K/uL 1.8-8.6 [facility] LYMPH# 2.9 K/uL 0.5-5.0 [facility] MONO# 0.7 K/uL 0.0-1.3 [facility] EOS# 0.1 K/uL 0.0-0.9 [facility] BASO# 0.0 K/ul 0.0-0.3 [facility] ID Date Data Source [id number] 08/17/2020 09:03:00 AM EDT [facility] CULTURE OBSERVATIONS 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 [facility] RBC >100 /HPF NONE SEEN ! [facility] The [place] [employer] has definedMicroscopic Hematuria as 3 or more RBC per highpowered field from a single positive urinalysis withmicroscopy. BACTERIA MODERATE /HPF NONE SEEN ! [facility] EPITHELIAL CELLS MODERATE /HPF NONE SEEN ! [facility] spital ID Date Data Source [id number] 08/15/2020 05:16:00 PM EDT [facility] Name Value Range Interpretation Code Description Data [facility] rce(s) Supporting Document(s) COLOR LUIS M [facility] APPEARANCE HAZY CLEAR ! [facility] SPECIFIC GRAVITY 1.025 1.000-1.030 [facility] pH 5.0 5.0-8.0 [facility] LEUKOCYTES 2+ NEGATIVE ! [facility] NITRATE NEGATIVE NEGATIVE [facility] PROTEIN 100 [ 2+] mg/dL NEGATIVE ! [facility] l GLUCOSE NORMAL mg/dL NORMAL [facility] KETONE NEGATIVE mg/dL NEGATIVE [facility] UROBILINOGEN 1 mg/dL NORMAL ! [facility] BILIRUBIN NEGATIVE mg/dL NEGATIVE [facility] HEMOGLOBIN 3+ NEGATIVE ! [facility] ID Date Data Source [id number] 08/15/2020 04:21:10 PM EDT [facility] Note Status: FINAL (SIGNED)Full Name: Kade JONES Date: 1985Visit ID: [id number] Record Number: [id number]: 33YSex: FemaleRoom Location: ER ROOMSBed Location: ER BD 11Date of Service: 02/16/2019 15:37Creation Date: 02/16/2019 15:37Created By: EMILY COOKPrimary Care Physician: NONE, NONETime patient first seen: 2312 Informant: PatientHPI Chief Complaint: Left flank pain HPI duration: 1 week HPI comments: 33-year-old female patient with a history of PE (maintained on Lovenox) and asthma presents for evaluation of her left flank pain. Patient states it started 1 week ago, however seems to be getting worse. Patient denies any fevers or chills. She does admit to nausea and vomiting without any hematemesis or coffee-ground emesis. Patient denies any constipation or diarrhea. Her last bowel movement was today without any mucus, melena or hematochezia. Patient denies any urinary or vaginal symptoms. Her last menstrual period was 2 weeks ago. Patient denies any concern for STI. Patient's past surgical history includes an appendectomy and cholecystectomy. Patient does have a history of kidney stones.Review of SystemsAll systems reviewed and negative except as noted in HPIAll systems reviewed and negative except as noted in HPI or noted belowED Triage Note: pt in left side of abd. nauseated. no improvement. vomiting. denies fever/chills. no loose stools [АНДРЕЙ HEWITT 02/16/19 14:22]Past Medical/Surgical HistoryPast medical/surgical history reviewedFull problems and procedures listProblem;Associated ICD-10-CM Code;Status;OnsetAppendectomy;None Associated;Completed;UnknownAsthma;None Associated;Active;UnknownCholecystectomy;None Associated;Completed;UnknownHypercholesterolemia;None Associated;Active;UnknownHome MedicationsHome medications reviewedAlbuterol 90 mcg/actuation Aerosol, 2 puff inhaled every 4 hours PRN shortness of breath or wheezing cloNIDine, 0.1 milligram orally 3 times per day Lisinopril-Hydrochlorothiazide 10 mg-12.5 mg, 1 tablet orally daily AllergiesAllergies reviewedLast Verified By: АНДРЕЙ HEWITT RN on 02/16/2019 14:23Penicillin V(Rash) Family HistoryFamily history reviewedSocial history reviewedAlcohol useNone Reported : ALCOHOL HISTORY Last Documented By: BARNEY CR RN on 01/18/2014 18:34Recreational drug useNone Reported : RECREATIONAL DRUG HISTORY Last Documented By: BARNEY CR RN on 01/18/2014 18:34Tobacco useNever smoker None Reported : TOBACCO HISTORY Last Documented By: RYAN VALENCIA RN on 01/03/2014 20:18Vital SignsVital signs reviewedMaximum temperature within the last 24 hours: 97.8 FDate/time of maximum temperature: 02/16/2019 14:21Most recent vital signsBP: 128/90 02/16/2019 14:21 Pulse: 74 02/16/2019 14:21 Temp: 97.8 F 02/16/2019 14:21 Resp: 18 02/16/2019 14:21 O2 Sat: 98.0% 02/16/2019 14:21 Calculated BMI: 50 02/16/2019 14:21 Admission height (inches): 61Admission weight (kgs): 118.63Triage Vital SignsTemp: 97.8F 02/16/2019 14:21 Pulse: 74 bpm 02/16/2019 14:21 Respirations: 18 02/16/2019 14:21 Blood Pressure: 128/90 mmHg 02/16/2019 14:21 O2Sat: 98 % 02/16/2019 14:21 Height: 61 in 02/16/2019 14:21 Weight: 118.63 kg 02/16/2019 14:21 Calculated BMI: 50 02/16/2019 14:21 Physical ExamConstWithin normal limits: False, no apparent distress, appears stated age, comments: Vitals unremarkable. Patient appears very uncomfortable.Eyes: within normal limits, extraocular movements intact, PERRL, no conjunctival injection, sclera anictericHENT: Within normal limits, Normocephalic atraumatic, Tympanic membrane normal, No nasal discharge, Oral mucosa moist/clearNeck: Within normal limits, No lymphadenopathyCVS: Within nor mal limits, Regular rate and rhythm, No rubs/gallops/murmursResp: Within normal limits, Clear to auscultation bilaterally, No wheezes/rales/rhonchiGI: Within normal limits, Non-tender, Normal bowel sounds, No guarding/rebound/tenderness, No organomegalyGI comments: Soft, nontender/nondistended.Musc: Within normal limits, Joints normal, Range of motion normalExtrem: Within normal limits, No clubbing/cyanosis/edemaSkin: Within normal limits, No rash, No bruisingBackNo CVA tenderness: False, comments: Mild left CVA tenderness.Initial impression: Acute left flank pain, UTI, pyelonephritis, kidney stoneLaboratory resultsAll Lab ResultsOrder;Test;Value;Reference Range;Comments;Status;CollectionAMYLASE;AMYLASE;53;(25-125 U/L);;Final Result ;02/16/2019 16:15:00CBC DIFF;WBC;10.4;(4.8-10.8 K/uL);;Final Result ;02/16/2019 16:15:00CBC DIFF;RED BLOOD CELL;4.07 L;(4.20-5.40 M/uL);;Final Result ;02/16/2019 16:15:00CBC DIFF;HEMOGLOBIN;12.9;(12.0-16.0 gm/dL);;Final Result ;02/16/2019 16:15:00CBC DIFF;HEMATOCRIT;38.1;(36.0-48.0 %);;Final Result ;02/16/2019 16:15:00CBC DIFF;MCV;93. 7;(80.0-100.0 fL);;Final Result ;02/16/2019 16:15:00CBC DIFF;MCHC;33.9;(30.0-36.5 %);;Final Result ;02/16/2019 16:15:00CBC DIFF;MCH;31.8;(27.0-34.0 pg);;Final Result ;02/16/2019 16:15:00CBC DIFF;RDW;12.4;(11.0-15.0 %);;Final Result ;02/16/2019 16:15:00CBC DIFF;PLATELET COUNT;395;(130- 450 K/uL);;Final Result ;02/16/2019 16:15:00CBC DIFF;MPV;6.5;(6.0-12.0 fL);;Final Result ;02/16/2019 16:15:00CBC DIFF;NEUTROPHIL;85 H;(37-80 %);;Final Result ;02/16/2019 16:15:00CBC DIFF;LYMPHOCYTE;12;(10-50 %);;Final Result ;02/16/2019 16:15:00CBC DIFF;MONOCYTE;2;(0-12 %);;Final Result ;02/16/2019 16:15:00CBC DIFF;EOSINOPHIL;1;( < =8 %);;Final Result ;02/16/2019 16:15:00CBC DIFF;BASOPHIL;0;( < =3 %);;Final Result ;02/16/2019 16:15:00CBC DIFF;DEAN#;8.9 H;(1.8-8.6 K/uL);;Final Result ;02/16/2019 16:15:00CBC DIFF;LYMPHOCYTE #;1.3;(0.5-5.0 K/uL);;Final Result ;02/16/2019 16:15:00CBC DIFF;MONOCYTE #;0.2;(0.0-1.3 K/uL);;Final Result ;02/16/2019 16:15:00CBC DIFF;EOSINOPHIL #;0.1;(0.0-0.9 K/uL);;Final Result ;02/16/2019 16:15:00CBC DIFF;BASOPHIL #;0.0;(0.0-0.3 K/ul);;Final Result ;02/16/2019 16:15:00COMPREHENSIVE PANEL;SODIUM;137;(136-145 mmol/L);;Final Result ;02/16/2019 16:15:00COMPREHENSIVE PANEL;POTASSIUM;4.7;(3.5-5.2 mmol/L);;Final Result ;02/16/2019 16:15:00COMPREHENSIVE PANEL;CHLORIDE;106;(100-108 mmol/L);;Final Result ;02/16/2019 16:15:00COMPREHENSIVE PANEL;CARBON DIOXIDE;23;(21-32 mmol/L);;Final Result ;02/16/2019 16:15:00COMPREHENSIVE PANEL;GLUCOSE;122 H;(70- 100 mg/dL);;Final Result ;02/16/2019 16:15:00COMPREHENSIVE PANEL;BUN;22 H;(7-21 mg/dL);;Final Result ;02/16/2019 16:15:00COMPREHENSIVE PANEL;Creatinine;0.8;(0.6-1.3 mg/dL);;Final Result ;02/16/2019 16:15:00COMPREHENSIVE PANEL;CALCIUM;9.6;(8.5-10.8 mg/dL);;Final Result ;02/16/2019 16:15:00COMPREHENSIVE PANEL;GFR; > 60;;;Final Result ;02/16/2019 16:15:00COMPREHENSIVE PANEL;TOTAL BILIRUBIN;0.3;(0.0-1.2 mg/dL);;Final Result ;02/16/2019 16:15:00COMPREHENSIVE PANEL;TOTAL PROTEIN;7.5;(6.4-8.2 gm/dL);;Final Result ;02/16/2019 16:15:00COMPREHENSIVE PANEL;ALBUMIN;4.5;(3.4-4.8 gm/dL);;Final Result ;02/16/2019 16:15:00COMPREHENSIVE PANEL;ALK PHOS;92;(40-150 U/L);;Final Result ;02/16/2019 16:15:00COMPREHENSIVE PANEL;ALT(SGPT);31;(0-55 U/L);;Final Result ;06/2018 16:15:00COMPREHENSIVE PANEL;AST (SGOT);26;(5-37 U/L);;Final Result ;02/16/2019 16:15:00LIPASE;LIPASE;23;(8-78 U/L);;Final Result ;02/16/2019 16:15:00PREGNANCY TEST - SERUM; TEST - SERUM;NEGATIVE;;;Final Result ;02/16/2019 16:15:00PT/INR;PROTIME;11.6;(9.4-12.4 sec);;Final Result ;02/16/2019 16:15:00PT/INR;INR;1.0;;;Final Result ;02/16/2019 16:15:00PTT;PTT;28.6;(25.6-36.4 sec);;Final Result ;02/16/2019 16:15:00URINALYSIS ROUTINE;Dipstick Urine Color;YELLOW;;;Final Result ;02/16/2019 14:09:00URINALYSIS ROUTINE;Dipstick Urine Turbidity;HAZY;;;Final Result ;02/16/2019 14:09:00URINALYSIS ROUTINE;Dipstick Specific [place] [place];1.020;(1.000-1.030);;Final Result ;02/16/2019 14:09:00URINALYSIS ROUTINE;Dipstick Urine pH;6.0;(5.0-8.0);;Final Result ;02/16/2019 14:09:00URINALYSIS ROUTINE;Dipstick Urine Leucoesterase;TRACE;;;Final Result ;02/16/2019 14:09:00URINALYSIS ROUTINE;Dipstick Urine Nitrate;NEGATIVE;;;Final Result ;02/16/2019 14:09:00URINALYSIS ROUTINE;Dipstick Urine Protein;30 [ 1 ];;;Final Result ;02/16/2019 14:09:00URINALYSIS ROUTINE;Dipstick Urine Glucose;NORMAL;;;Final Result ;02/16/2019 14:09:00URINALYSIS ROUTINE;Dipstick Urine Ketone;NEGATIVE;;;Final Result ;02/16/2019 14:09:00U RINALYSIS ROUTINE;Dipstick Urine Urobilinogen;NORMAL;;;Final Result ;02/16/2019 14:09:00URINALYSIS ROUTINE;Dipstick Urine Bili;NEGATIVE;;;Final Result ;02/16/2019 14:09:00URINALYSIS ROUTINE;Dipstick Urine Hgb;3 ;;;Final Result ;02/16/2019 14:09:00URINE MICROSCOPIC;Microscopic Urine WBC;3- 5;;;Final Result ;02/16/2019 14:09:00URINE MICROSCOPIC;Microscopic Urine RBC; > 100;;;Final Result ;02/16/2019 14:09:00URINE MICROSCOPIC;Microscopic Urine BACT;FEW;;;Final Result ;02/16/2019 14:09:00Xray results: 02/16/2019 5:[address] ABDOMEN AND PELVIS WITHOUT CONTRAST CLINICAL INFORMATION: Left flank pain, rule out obstructive uropathy -- UNSPECIFIED ABDOMINAL PAIN COMPARISON: 01/04/2018 PROCEDURE: Contiguous images were obtained through the abdomen and pelvis without intravenous contrast. Automated exposure control, adjustment of the mA and/or kV according to patient size, and/or iterative reconstruction techniques were utilized for radiation dose optimization. FINDINGS: Chest Base: Unremarkable. Liver/Biliary Tract: Cholecystectomy Pancreas: Unremarkable. Spleen: Unremarkable. Adrenals: Unremarkable. Kidneys and Collecting Systems: Unremarkable. Lymph Nodes: Unremarkable. Vessels: Unremarkable for age. GI Tract/Mesentery and Peritoneal Cavity: Appendectomy. Sigmoid diverticulosis without signs of diverticulitis. Uterus/Ovaries: Unremarkable. Bladder: Unremarkable. Soft Tissues/Musculoskeletal: Small fat- containing umbilical hernia. IMPRESSION: No hydronephrosis or nephrolithiasis. No CT signs to account for patient's pain. END OF IMPRESSION I have personally reviewed the images and the Resident's/Fellow's interpretation and agree with or edited the findings. [facility] submits Radiology results to [facility] and [facility] then provides those same results to [facility]. All results are available to [facility] and [facility] provider portal users. [facility] DICOM images are available to the [facility] provider portal users only. [facility] DICOM images are not available to the [facility] provider portal users. There is no current [facility] cross-[facility] functionality allowing images to be available through the [facility] to [facility] connectivity. Interpreted By: Rosaura Stephens M.D. Electronically signed By: Ramesh Coleman M.D. Read By: RAMESH COLEMAN Date: 02/16/2019 17:46EKG/Rhythm Strip InterpretationProgress Time 1: 1535 Progress comments 1: Patient seen and evaluated. Progress time 2: 1835 Progress comments 2: Serum negative. No leukocytosis noted on laboratory evaluation. Labs otherwise unremarkable. Urinalysis with 3-5 white blood cells, greater than 100 red blood cells and few bacteria. Urine culture was sent. Previous urinalyses reviewed in there is very frequently greater than 100 red blood cells. Patient is not anemic. CT scan without any acute abnormality. Patient is hemodynamically stable and appears well. Will treat for hemorrhagic cystitis. First dose of Bactrim given in the emergency department. Plan of care discussed with patient, will discharge patient home.Diagnosis: Acute flank pain Acute hemorrhagic cystitis Diagnosis level 3Disposition time: 1830 Disch arge condition: Improved; StableDischarge plan: Advised rest and plenty of clear fluids. Take Bactrim as directed, finish entire course. Take Tylenol as needed for the discomfort. Follow up with your urologist within the next week as an outpatient. Return to the emergency department with any new or worsening symptoms. Your prescription has been sent to [facility] in [place]. Disposition: homePatient did not require critical care timeMidlevel signature: Guerda MORALES signature date: 02/17/2019 10:53Attending Physician Attestation: I have reviewed the midlevel documentation, agree with the documentation, medical decision making and treatment plan as outlined by the midlevelPhysician signature: Asim MITCHELL signature date: 02/19/2019 04:58 Note Status: FINAL (SIGNED)Full Name: Kade JONES Date: 1985Visit ID: [id number] Record Number: [id number]: 33YSex: FemaleRoom Location: ER ROOMSBed Location: ER 11Date of Service: 02/16/2019 15:37Creation Date: 02/16/2019 15:37Created By: [facility] Care Physician: NONE, NONETime patient first seen: 1535 Informant: PatientHPI Chief Complaint: Left flank pain HPI duration: 1 week HPI comments: 33-year-old female patient with a history of PE (maintained on Lovenox) and asthma presents for evaluation of her left flank pain. Patient states it started 1 week ago, however seems to be getting worse. Patient denies any fevers or chills. She does admit to nausea and vomiting without any hematemesis or coffee-ground emesis. Patient denies any constipation or diarrhea. Her last bowel movement was today without any mucus, melena or hematochezia. Patient denies any urinary or vaginal symptoms. Her last menstrual period was 2 weeks ago. Patient denies any concern for STI. Patient's past surgical history includes an appendectomy and cholecystectomy. Patient does have a history of kidney stones.Review of SystemsAll systems reviewed and negative except as noted in HPIAll systems reviewed and negative except as noted in HPI or noted belowED Triage Note: pt in left side of abd. nauseated. no improvement. vomiting. denies fever/chills. no loose stools [MARCELINA, АНДРЕЙ M. 02/16/19 14:22]Past Medical/Surgical HistoryPast medical/surgical history reviewedFull problems and procedures listProblem;Associated ICD-10-CM Code;Status;OnsetAppendectomy;None Associated;Completed;UnknownAsthma;None Associated;Active;UnknownCholecystectomy;None Associated;Completed;UnknownHypercholesterolemia;None Associated;Active;UnknownHome MedicationsHome medications reviewedAlbuterol 90 mcg/actuation Aerosol, 2 puff inhaled every 4 hours PRN shortness of breath or wheezing cloNIDine, 0.1 milligram orally 3 times per day Lisinopril-Hydrochlorothiazide 10 mg-12.5 mg, 1 tablet orally daily AllergiesAllergies reviewedLast Verified By: АНДРЕЙ HEWITT RN on 02/16/2019 14:23Penicillin V(Rash) Family HistoryFamily history reviewedSocial history reviewedAlcohol useNone Reported : ALCOHOL HISTORY Last Documented By: BARNEY CR RN on 01/18/2014 18:34Recreational drug useNone Reported : RECREATIONAL DRUG HISTORY Last Documented By: BARNEY CR RN on 01/18/2014 18:34Tobacco useNever smoker None Reported : TOBACCO HISTORY Last Documented By: RYAN VALENCIA RN on 01/03/2014 20:18Vital SignsVital signs reviewedMaximum temperature within the last 24 hours: 97.8 FDate/time of maximum temperature: 02/16/2019 14:21Most recent vital signsBP: 128/90 02/16/2019 14:21 Pulse: 74 02/16/2019 14:21 Temp: 97.8 F 02/16/2019 14:21 Resp: 18 02/16/2019 14:21 O2 Sat: 98.0% 02/16/2019 14:21 Calculated BMI: 50 02/16/2019 14:21 Admission height (inches): 61Admission weight (kgs): 118.63Triage Vital SignsTemp: 97.8F 02/16/2019 14:21 Pulse: 74 bpm 02/16/2019 14:21 Respirations: 18 02/16/2019 14:21 Blood Pressure: 128/90 mmHg 02/16/2019 14:21 O2Sat: 98 % 02/16/2019 14:21 Height: 61 in 02/16/2019 14:21 Weight: 118.63 kg 02/16/2019 14:21 Calculated BMI: 50 02/16/2019 14:21 Physical ExamConstWithin normal limits: False, no apparent distress, appears stated age, comments: Vitals unremarkable. Patient appears very uncomfortable.Eyes: within normal limits, extraocular movements intact, PERRL, no conjunctival injection, sclera anictericHENT: Within normal limits, Normocephalic atraumatic, Tympanic membrane normal, No nasal discharge, Oral mucosa moist/clearNeck: Within normal limits, No lymphadenopathyCVS: Within nor mal limits, Regular rate and rhythm, No rubs/gallops/murmursResp: Within normal limits, Clear to auscultation bilaterally, No wheezes/rales/rhonchiGI: Within normal limits, Non-tender, Normal bowel sounds, No guarding/rebound/tenderness, No organomegalyGI comments: Soft, nontender/nondistended.Musc: Within normal limits, Joints normal, Range of motion normalExtrem: Within normal limits, No clubbing/cyanosis/edemaSkin: Within normal limits, No rash, No bruisingBackNo CVA tenderness: False, comments: Mild left CVA tenderness.Initial impression: Acute left flank pain, UTI, pyelonephritis, kidney stoneLaboratory resultsAll Lab ResultsOrder;Test;Value;Reference Range;Comments;Status;CollectionAMYLASE;AMYLASE;53;(25-125 U/L);;Final Result ;02/16/2019 16:15:00CBC DIFF;WBC;10.4;(4.8-10.8 K/uL);;Final Result ;02/16/2019 16:15:00CBC DIFF;RED BLOOD CELL;4.07 L;(4.20-5.40 M/uL);;Final Result ;02/16/2019 16:15:00CBC DIFF;HEMOGLOBIN;12.9;(12.0-16.0 gm/dL);;Final Result ;02/16/2019 16:15:00CBC DIFF;HEMATOCRIT;38.1;(36.0-48.0 %);;Final Result ;02/16/2019 16:15:00CBC DIFF;MCV;93. 7;(80.0-100.0 fL);;Final Result ;02/16/2019 16:15:00CBC DIFF;MCHC;33.9;(30.0-36.5 %);;Final Result ;02/16/2019 16:15:00CBC DIFF;MCH;31.8;(27.0-34.0 pg);;Final Result ;02/16/2019 16:15:00CBC DIFF;RDW;12.4;(11.0-15.0 %);;Final Result ;02/16/2019 16:15:00CBC DIFF;PLATELET COUNT;395;(130- 450 K/uL);;Final Result ;02/16/2019 16:15:00CBC DIFF;MPV;6.5;(6.0-12.0 fL);;Final Result ;02/16/2019 16:15:00CBC DIFF;NEUTROPHIL;85 H;(37-80 %);;Final Result ;02/16/2019 16:15:00CBC DIFF;LYMPHOCYTE;12;(10-50 %);;Final Result ;02/16/2019 16:15:00CBC DIFF;MONOCYTE;2;(0-12 %);;Final Result ;02/16/2019 16:15:00CBC DIFF;EOSINOPHIL;1;( < =8 %);;Final Result ;02/16/2019 16:15:00CBC DIFF;BASOPHIL;0;( < =3 %);;Final Result ;02/16/2019 16:15:00CBC DIFF;DEAN#;8.9 H;(1.8-8.6 K/uL);;Final Result ;02/16/2019 16:15:00CBC DIFF;LYMPHOCYTE #;1.3;(0.5-5.0 K/uL);;Final Result ;02/16/2019 16:15:00CBC DIFF;MONOCYTE #;0.2;(0.0-1.3 K/uL);;Final Result ;02/16/2019 16:15:00CBC DIFF;EOSINOPHIL #;0.1;(0.0-0.9 K/uL);;Final Result ;02/16/2019 16:15:00CBC DIFF;BASOPHIL #;0.0;(0.0-0.3 K/ul);;Final Result ;02/16/2019 16:15:00COMPREHENSIVE PANEL;SODIUM;137;(136-145 mmol/L);;Final Result ;02/16/2019 16:15:00COMPREHENSIVE PANEL;POTASSIUM;4.7;(3.5-5.2 mmol/L);;Final Result ;02/16/2019 16:15:00COMPREHENSIVE PANEL;CHLORIDE;106;(100-108 mmol/L);;Final Result ;02/16/2019 16:15:00COMPREHENSIVE PANEL;CARBON DIOXIDE;23;(21-32 mmol/L);;Final Result ;02/16/2019 16:15:00COMPREHENSIVE PANEL;GLUCOSE;122 H;(70- 100 mg/dL);;Final Result ;02/16/2019 16:15:00COMPREHENSIVE PANEL;BUN;22 H;(7-21 mg/dL);;Final Result ;02/16/2019 16:15:00COMPREHENSIVE PANEL;Creatinine;0.8;(0.6-1.3 mg/dL);;Final Result ;02/16/2019 16:15:00COMPREHENSIVE PANEL;CALCIUM;9.6;(8.5-10.8 mg/dL);;Final Result ;02/16/2019 16:15:00COMPREHENSIVE PANEL;GFR; > 60;;;Final Result ;02/16/2019 16:15:00COMPREHENSIVE PANEL;TOTAL BILIRUBIN;0.3;(0.0-1.2 mg/dL);;Final Result ;02/16/2019 16:15:00COMPREHENSIVE PANEL;TOTAL PROTEIN;7.5;(6.4-8.2 gm/dL);;Final Result ;02/16/2019 16:15:00COMPREHENSIVE PANEL;ALBUMIN;4.5;(3.4-4.8 gm/dL);;Final Result ;02/16/2019 16:15:00COMPREHENSIVE PANEL;ALK PHOS;92;(40-150 U/L);;Final Result ;02/16/2019 16:15:00COMPREHENSIVE PANEL;ALT(SGPT);31;(0-55 U/L);;Final Result ;06/2018 16:15:00COMPREHENSIVE PANEL;AST (SGOT);26;(5-37 U/L);;Final Result ;02/16/2019 16:15:00LIPASE;LIPASE;23;(8-78 U/L);;Final Result ;02/16/2019 16:15:00PREGNANCY TEST - SERUM; TEST - SERUM;NEGATIVE;;;Final Result ;02/16/2019 16:15:00PT/INR;PROTIME;11.6;(9.4-12.4 sec);;Final Result ;02/16/2019 16:15:00PT/INR;INR;1.0;;;Final Result ;02/16/2019 16:15:00PTT;PTT;28.6;(25.6-36.4 sec);;Final Result ;02/16/2019 16:15:00URINALYSIS ROUTINE;Dipstick Urine Color;YELLOW;;;Final Result ;02/16/2019 14:09:00URINALYSIS ROUTINE;Dipstick Urine Turbidity;HAZY;;;Final Result ;02/16/2019 14:09:00URINALYSIS ROUTINE;Dipstick Specific [place];1.020;(1.000-1.030);;Final Result ;02/16/2019 14:09:00URINALYSIS ROUTINE;Dipstick Urine pH;6.0;(5.0-8.0);;Final Result ;02/16/2019 14:09:00URINALYSIS ROUTINE;Dipstick Urine Leucoesterase;TRACE;;;Final Result ;02/16/2019 14:09:00URINALYSIS ROUTINE;Dipstick Urine Nitrate;NEGATIVE;;;Final Result ;02/16/2019 14:09:00URINALYSIS ROUTINE;Dipstick Urine Protein;30 [ 1 ];;;Final Result ;02/16/2019 14:09:00URINALYSIS ROUTINE;Dipstick Urine Glucose;NORMAL;;;Final Result ;02/16/2019 14:09:00URINALYSIS ROUTINE;Dipstick Urine Ketone;NEGATIVE;;;Final Result ;02/16/2019 14:09:00U RINALYSIS ROUTINE;Dipstick Urine Urobilinogen;NORMAL;;;Final Result ;02/16/2019 14:09:00URINALYSIS ROUTINE;Dipstick Urine Bili;NEGATIVE;;;Final Result ;02/16/2019 14:09:00URINALYSIS ROUTINE;Dipstick Urine Hgb;3 ;;;Final Result ;02/16/2019 14:09:00URINE MICROSCOPIC;Microscopic Urine WBC;3- 5;;;Final Result ;02/16/2019 14:09:00URINE MICROSCOPIC;Microscopic Urine RBC; > 100;;;Final Result ;02/16/2019 14:09:00URINE MICROSCOPIC;Microscopic Urine BACT;FEW;;;Final Result ;02/16/2019 14:09:00Xray results: 02/16/2019 5:[address] ABDOMEN AND PELVIS WITHOUT CONTRAST. . CLINICAL INFORMATION: Left flank pain, rule out obstructive uropathy --. UNSPECIFIED ABDOMINAL PAIN. . COMPARISON: 01/04/2018. . PROCEDURE: Contiguous images were obtained through the abdomen and pelvis. without intravenous contrast. Automated exposure control, adjustment of the mA. and/or kV according to patient size, and/or iterative reconstruction techniques. were utilized for radiation dose optimization.. . FINDINGS:. . Chest Base: Unremarkable.. . Liver/Biliary Tract: Cholecystectomy. . Pancreas: Unremarkable.. . Spleen: Unremarkable.. . Adrenals: Unremarkable.. . Kidneys and Collecting Systems: Unremarkable.. . Lymph Nodes: Unremarkable.. . Vessels: Unremarkable for age.. . GI Tract/Mesentery and Peritoneal Cavity: Appendectomy. Sigmoid diverticulosis. without signs of diverticulitis.. . Uterus/Ovaries: Unremarkable.. . Bladder: Unremarkable.. . Soft Tissues/Musculoskeletal: Small fat-containing umbilical hernia.. . IMPRESSION:. . No hydronephrosis or nephrolithiasis.. No CT signs to account for patient's pain.. . END OF IMPRESSION. . I have personally reviewed the images and the Resident's/Fellow's. interpretation and agree with or edited the findings.. . [facility] submits Radiology results to [facility] and. [facility] then provides those same results to [facility]. All. results are available to [facility] and [facility] provider portal. users. [facility] DICOM images are available to the. [facility] provider portal users only. [facility] DICOM. images are not available to the [facility] provider portal users. There is. no current [facility] cross-[facility] functionality allowing images to be available through. the [facility] to [facility] connectivity.. Interpreted By: Rosaura Stephens M.D.. Electronically signed By: Ramesh Coleman M.D.. . Read By: RAMESH COLEMAN. Date: 02/16/2019 17:46EKG/Rhythm Strip InterpretationProgress Time 1: 1535 Progress comments 1: Patient seen and evaluated. Progress time 2: 1834 Progress comments 2: Serum negative. No leukocytosis noted on laboratory evaluation. Labs otherwise unremarkable. Urinalysis with 3-5 white blood cells, greater than 100 red blood cells and few bacteria. Urine culture was sent. Previous urinalyses reviewed in there is very frequently greater than 100 red blood cells. Patient is not anemic. CT scan without any acute abnormality. Patient is hemodynamically stable and appears well. Will treat for hemorrhagic cystitis. First dose of Bactrim given in the emergency department. Plan of care discussed with patient, will discharge patient home.Diagnosis: Acute flank pain . Acute hemorrhagic cystitis Diagnosis level 3Disposition time: 1829 Discharge condition: Improved; StableDischarge plan: Advised rest and plenty of clear fluids. Take Bactrim as directed, finish entire course. Take Tylenol as needed for the discomfort. Follow up with your urologist within the next week as an outpatient. Return to the emergency department with any new or worsening symptoms.. . Your prescri ption has been sent to [facility] in [place]. Disposition: homePatient did not require critical care timeMidlevel signature: Guerda MORALES signature date: 02/17/2019 10:53Attending Physician Attestation: I have reviewed the midlevel documentation, agree with the documentation, medical decision making and treatment plan as outlined by the midlevelPhysician signature: Asim MITCHELL signature date: 02/19/2019 04:58 Name Value Range Interpretation Code Description Data Victoria rce(s) Supporting Document(s) ID Date Data Source [id number] 08/15/2020 04:21:10 PM [facility] Status: FINAL (SIGNED)Full Name: Kade JONES Date: 1985Visit ID: [id number] Record Number: [id number]: 33YSex: FemaleRoom Location: ER ROOMSBed Location: ER 11Date of Service: 02/16/2019 15:37Creation Date: 02/16/2019 15:37Created By: Jean Carlos [facility] Care Physician: NONE, NONETime patient first seen: 8825 Informant: PatientHPI Chief Complaint: Left flank pain HPI duration: 1 week HPI comments: 33-year-old female patient with a history of PE (maintained on Lovenox) and asthma presents for evaluation of her left flank pain. Patient states it started 1 week ago, however seems to be getting worse. Patient denies any fevers or chills. She does admit to nausea and vomiting without any hematemesis or coffee-ground emesis. Patient denies any constipation or diarrhea. Her last bowel movement was today without any mucus, melena or hematochezia. Patient denies any urinary or vaginal symptoms. Her last menstrual period was 2 weeks ago. Patient denies any concern for STI. Patient's past surgical history includes an appendectomy and cholecystectomy. Patient does have a history of kidney stones.Review of SystemsAll systems reviewed and negative except as noted in HPIAll systems reviewed and negative except as noted in HPI or noted belowED Triage Note: pt in left side of abd. nauseated. no improvement. vomiting. denies fever/chills. no loose stools [АНДРЕЙ HEWITT 02/16/19 14:22]Past Medical/Surgical HistoryPast medical/surgical history reviewedFull problems and procedures listProblem;Associated ICD-10-CM Code;Status;OnsetAppendectomy;None Associated;Completed;UnknownAsthma;None Associated;Active;UnknownCholecystectomy;None Associated;Completed;UnknownHypercholesterolemia;None Associated;Active;UnknownHome MedicationsHome medications reviewedAlbuterol 90 mcg/actuation Aerosol, 2 puff inhaled every 4 hours PRN shortness of breath or wheezing cloNIDine, 0.1 milligram orally 3 times per day Lisinopril-Hydrochlorothiazide 10 mg-12.5 mg, 1 tablet orally daily AllergiesAllergies reviewedLast Verified By: АНДРЕЙ HEWITT RN on 02/16/2019 14:23Penicillin V(Rash) Family HistoryFamily history reviewedSocial history reviewedAlcohol useNone Reported : ALCOHOL HISTORY Last Documented By: BARNEY CR RN on 01/18/2014 18:34Recreational drug useNone Reported : RECREATIONAL DRUG HISTORY Last Documented By: BARNEY CR RN on 01/18/2014 18:34Tobacco useNever smoker None Reported : TOBACCO HISTORY Last Documented By: RYAN VALENCIA RN on 01/03/2014 20:18Vital SignsVital signs reviewedMaximum temperature within the last 24 hours: 97.8 FDate/time of maximum temperature: 02/16/2019 14:21Most recent vital signsBP: 128/90 02/16/2019 14:21 Pulse: 74 02/16/2019 14:21 Temp: 97.8 F 02/16/2019 14:21 Resp: 18 02/16/2019 14:21 O2 Sat: 98.0% 02/16/2019 14:21 Calculated BMI: 50 02/16/2019 14:21 Admission height (inches): 61Admission weight (kgs): 118.63Triage Vital SignsTemp: 97.8F 02/16/2019 14:21 Pulse: 74 bpm 02/16/2019 14:21 Respirations: 18 02/16/2019 14:21 Blood Pressure: 128/90 mmHg 02/16/2019 14:21 O2Sat: 98 % 02/16/2019 14:21 Height: 61 in 02/16/2019 14:21 Weight: 118.63 kg 02/16/2019 14:21 Calculated BMI: 50 02/16/2019 14:21 Physical ExamConstWithin normal limits: False, no apparent distress, appears stated age, comments: Vitals unremarkable. Patient appears very uncomfortable.Eyes: within normal limits, extraocular movements intact, PERRL, no conjunctival injection, sclera anictericHENT: Within normal limits, Normocephalic atraumatic, Tympanic membrane normal, No nasal discharge, Oral mucosa moist/clearNeck: Within normal limits, No lymphadenopathyCVS: Within nor mal limits, Regular rate and rhythm, No rubs/gallops/murmursResp: Within normal limits, Clear to auscultation bilaterally, No wheezes/rales/rhonchiGI: Within normal limits, Non-tender, Normal bowel sounds, No guarding/rebound/tenderness, No organomegalyGI comments: Soft, nontender/nondistended.Musc: Within normal limits, Joints normal, Range of motion normalExtrem: Within normal limits, No clubbing/cyanosis/edemaSkin: Within normal limits, No rash, No bruisingBackNo CVA tenderness: False, comments: Mild left CVA tenderness.Initial impression: Acute left flank pain, UTI, pyelonephritis, kidney stoneLaboratory resultsAll Lab ResultsOrder;Test;Value;Reference Range;Comments;Status;CollectionAMYLASE;AMYLASE;53;(25-125 U/L);;Final Result ;02/16/2019 16:15:00CBC DIFF;WBC;10.4;(4.8-10.8 K/uL);;Final Result ;02/16/2019 16:15:00CBC DIFF;RED BLOOD CELL;4.07 L;(4.20-5.40 M/uL);;Final Result ;02/16/2019 16:15:00CBC DIFF;HEMOGLOBIN;12.9;(12.0-16.0 gm/dL);;Final Result ;02/16/2019 16:15:00CBC DIFF;HEMATOCRIT;38.1;(36.0-48.0 %);;Final Result ;02/16/2019 16:15:00CBC DIFF;MCV;93. 7;(80.0-100.0 fL);;Final Result ;02/16/2019 16:15:00CBC DIFF;MCHC;33.9;(30.0-36.5 %);;Final Result ;02/16/2019 16:15:00CBC DIFF;MCH;31.8;(27.0-34.0 pg);;Final Result ;02/16/2019 16:15:00CBC DIFF;RDW;12.4;(11.0-15.0 %);;Final Result ;02/16/2019 16:15:00CBC DIFF;PLATELET COUNT;395;(130- 450 K/uL);;Final Result ;02/16/2019 16:15:00CBC DIFF;MPV;6.5;(6.0-12.0 fL);;Final Result ;02/16/2019 16:15:00CBC DIFF;NEUTROPHIL;85 H;(37-80 %);;Final Result ;02/16/2019 16:15:00CBC DIFF;LYMPHOCYTE;12;(10-50 %);;Final Result ;02/16/2019 16:15:00CBC DIFF;MONOCYTE;2;(0-12 %);;Final Result ;02/16/2019 16:15:00CBC DIFF;EOSINOPHIL;1;( < =8 %);;Final Result ;02/16/2019 16:15:00CBC DIFF;BASOPHIL;0;( < =3 %);;Final Result ;02/16/2019 16:15:00CBC DIFF;DEAN#;8.9 H;(1.8-8.6 K/uL);;Final Result ;02/16/2019 16:15:00CBC DIFF;LYMPHOCYTE #;1.3;(0.5-5.0 K/uL);;Final Result ;02/16/2019 16:15:00CBC DIFF;MONOCYTE #;0.2;(0.0-1.3 K/uL);;Final Result ;02/16/2019 16:15:00CBC DIFF;EOSINOPHIL #;0.1;(0.0-0.9 K/uL);;Final Result ;02/16/2019 16:15:00CBC DIFF;BASOPHIL #;0.0;(0.0-0.3 K/ul);;Final Result ;02/16/2019 16:15:00COMPREHENSIVE PANEL;SODIUM;137;(136-145 mmol/L);;Final Result ;02/16/2019 16:15:00COMPREHENSIVE PANEL;POTASSIUM;4.7;(3.5-5.2 mmol/L);;Final Result ;02/16/2019 16:15:00COMPREHENSIVE PANEL;CHLORIDE;106;(100-108 mmol/L);;Final Result ;02/16/2019 16:15:00COMPREHENSIVE PANEL;CARBON DIOXIDE;23;(21-32 mmol/L);;Final Result ;02/16/2019 16:15:00COMPREHENSIVE PANEL;GLUCOSE;122 H;(70- 100 mg/dL);;Final Result ;02/16/2019 16:15:00COMPREHENSIVE PANEL;BUN;22 H;(7-21 mg/dL);;Final Result ;02/16/2019 16:15:00COMPREHENSIVE PANEL;Creatinine;0.8;(0.6-1.3 mg/dL);;Final Result ;02/16/2019 16:15:00COMPREHENSIVE PANEL;CALCIUM;9.6;(8.5-10.8 mg/dL);;Final Result ;02/16/2019 16:15:00COMPREHENSIVE PANEL;GFR; > 60;;;Final Result ;02/16/2019 16:15:00COMPREHENSIVE PANEL;TOTAL BILIRUBIN;0.3;(0.0-1.2 mg/dL);;Final Result ;02/16/2019 16:15:00COMPREHENSIVE PANEL;TOTAL PROTEIN;7.5;(6.4-8.2 gm/dL);;Final Result ;02/16/2019 16:15:00COMPREHENSIVE PANEL;ALBUMIN;4.5;(3.4-4.8 gm/dL);;Final Result ;02/16/2019 16:15:00COMPREHENSIVE PANEL;ALK PHOS;92;(40-150 U/L);;Final Result ;02/16/2019 16:15:00COMPREHENSIVE PANEL;ALT(SGPT);31;(0-55 U/L);;Final Result ;06/2018 16:15:00COMPREHENSIVE PANEL;AST (SGOT);26;(5-37 U/L);;Final Result ;02/16/2019 16:15:00LIPASE;LIPASE;23;(8-78 U/L);;Final Result ;02/16/2019 16:15:00PREGNANCY TEST - SERUM; TEST - SERUM;NEGATIVE;;;Final Result ;02/16/2019 16:15:00PT/INR;PROTIME;11.6;(9.4-12.4 sec);;Final Result ;02/16/2019 16:15:00PT/INR;INR;1.0;;;Final Result ;02/16/2019 16:15:00PTT;PTT;28.6;(25.6-36.4 sec);;Final Result ;02/16/2019 16:15:00URINALYSIS ROUTINE;Dipstick Urine Color;YELLOW;;;Final Result ;02/16/2019 14:09:00URINALYSIS ROUTINE;Dipstick Urine Turbidity;HAZY;;;Final Result ;02/16/2019 14:09:00URINALYSIS ROUTINE;Dipstick Specific [place];1.020;(1.000-1.030);;Final Result ;02/16/2019 14:09:00URINALYSIS ROUTINE;Dipstick Urine pH;6.0;(5.0-8.0);;Final Result ;02/16/2019 14:09:00URINALYSIS ROUTINE;Dipstick Urine Leucoesterase;TRACE;;;Final Result ;02/16/2019 14:09:00URINALYSIS ROUTINE;Dipstick Urine Nitrate;NEGATIVE;;;Final Result ;02/16/2019 14:09:00URINALYSIS ROUTINE;Dipstick Urine Protein;30 [ 1 ];;;Final Result ;02/16/2019 14:09:00URINALYSIS ROUTINE;Dipstick Urine Glucose;NORMAL;;;Final Result ;02/16/2019 14:09:00URINALYSIS ROUTINE;Dipstick Urine Ketone;NEGATIVE;;;Final Result ;02/16/2019 14:09:00U RINALYSIS ROUTINE;Dipstick Urine Urobilinogen;NORMAL;;;Final Result ;02/16/2019 14:09:00URINALYSIS ROUTINE;Dipstick Urine Bili;NEGATIVE;;;Final Result ;02/16/2019 14:09:00URINALYSIS ROUTINE;Dipstick Urine Hgb;3 ;;;Final Result ;02/16/2019 14:09:00URINE MICROSCOPIC;Microscopic Urine WBC;3- 5;;;Final Result ;02/16/2019 14:09:00URINE MICROSCOPIC;Microscopic Urine RBC; > 100;;;Final Result ;02/16/2019 14:09:00URINE MICROSCOPIC;Microscopic Urine BACT;FEW;;;Final Result ;02/16/2019 14:09:00Xray results: 02/16/2019 5:[address] ABDOMEN AND PELVIS WITHOUT CONTRAST CLINICAL INFORMATION: Left flank pain, rule out obstructive uropathy -- UNSPECIFIED ABDOMINAL PAIN COMPARISON: 01/04/2018 PROCEDURE: Contiguous images were obtained through the abdomen and pelvis without intravenous contrast. Automated exposure control, adjustment of the mA and/or kV according to patient size, and/or iterative reconstruction techniques were utilized for radiation dose optimization. FINDINGS: Chest Base: Unremarkable. Liver/Biliary Tract: Cholecystectomy Pancreas: Unremarkable. Spleen: Unremarkable. Adrenals: Unremarkable. Kidneys and Collecting Systems: Unremarkable. Lymph Nodes: Unremarkable. Vessels: Unremarkable for age. GI Tract/Mesentery and Peritoneal Cavity: Appendectomy. Sigmoid diverticulosis without signs of diverticulitis. Uterus/Ovaries: Unremarkable. Bladder: Unremarkable. Soft Tissues/Musculoskeletal: Small fat- containing umbilical hernia. IMPRESSION: No hydronephrosis or nephrolithiasis. No CT signs to account for patient's pain. END OF IMPRESSION I have personally reviewed the images and the Resident's/Fellow's interpretation and agree with or edited the findings. [facility] submits Radiology results to [facility] and [facility] then provides those same results to [facility]. All results are available to [facility] and [facility] provider portal users. [facility] DICOM images are available to the [facility] provider portal users only. [facility] DICOM images are not available to the [facility] provider portal users. There is no current [facility] cross-[facility] functionality allowing images to be available through the [facility] to [facility] connectivity. Interpreted By: Rosaura Stephens M.D. Electronically signed By: Ramesh Coleman M.D. Read By: RAMESH COLEMAN Date: 02/16/2019 17:46EKG/Rhythm Strip InterpretationProgress Time 1: 1535 Progress comments 1: Patient seen and evaluated. Progress time 2: 1835 Progress comments 2: Serum negative. No leukocytosis noted on laboratory evaluation. Labs otherwise unremarkable. Urinalysis with 3-5 white blood cells, greater than 100 red blood cells and few bacteria. Urine culture was sent. Previous urinalyses reviewed in there is very frequently greater than 100 red blood cells. Patient is not anemic. CT scan without any acute abnormality. Patient is hemodynamically stable and appears well. Will treat for hemorrhagic cystitis. First dose of Bactrim given in the emergency department. Plan of care discussed with patient, will discharge patient home.Diagnosis: Acute flank pain Acute hemorrhagic cystitis Diagnosis level 3Disposition time: 1830 Disch arge condition: Improved; StableDischarge plan: Advised rest and plenty of clear fluids. Take Bactrim as directed, finish entire course. Take Tylenol as needed for the discomfort. Follow up with your urologist within the next week as an outpatient. Return to the emergency department with any new or worsening symptoms. Your prescription has been sent to [facility] in [place]. Disposition: homePatient did not require critical care timeMidlevel signature: Guerda MORALES signature date: 02/17/2019 10:53Attending Physician Attestation: I have reviewed the midlevel documentation, agree with the documentation, medical decision making and treatment plan as outlined by the midlevelPhysician signature: Asim MITCHELL signature date: 02/19/2019 04:58 Note Status: FINAL (SIGNED)Full Name: Kade JONES Date: 1985Visit ID: [id number] Record Number: [id number]: 33YSex: FemaleRoom Location: ER ROOMSBed Location: ER 11Date of Service: 02/16/2019 15:37Creation Date: 02/16/2019 15:37Created By: EM[facility] Care Physician: NONE, NONETime patient first seen: 0115 Informant: PatientHPI Chief Complaint: Left flank pain HPI duration: 1 week HPI comments: 33-year-old female patient with a history of PE (maintained on Lovenox) and asthma presents for evaluation of her left flank pain. Patient states it started 1 week ago, however seems to be getting worse. Patient denies any fevers or chills. She does admit to nausea and vomiting without any hematemesis or coffee-ground emesis. Patient denies any constipation or diarrhea. Her last bowel movement was today without any mucus, melena or hematochezia. Patient denies any urinary or vaginal symptoms. Her last menstrual period was 2 weeks ago. Patient denies any concern for STI. Patient's past surgical history includes an appendectomy and cholecystectomy. Patient does have a history of kidney stones.Review of SystemsAll systems reviewed and negative except as noted in HPIAll systems reviewed and negative except as noted in HPI or noted belowED Triage Note: pt in left side of abd. nauseated. no improvement. vomiting. denies fever/chills. no loose stools [АНДРЕЙ HEWITT 02/16/19 14:22]Past Medical/Surgical HistoryPast medical/surgical history reviewedFull problems and procedures listProblem;Associated ICD-10-CM Code;Status;OnsetAppendectomy;None Associated;Completed;UnknownAsthma;None Associated;Active;UnknownCholecystectomy;None Associated;Completed;UnknownHypercholesterolemia;None Associated;Active;UnknownHome MedicationsHome medications reviewedAlbuterol 90 mcg/actuation Aerosol, 2 puff inhaled every 4 hours PRN shortness of breath or wheezing cloNIDine, 0.1 milligram orally 3 times per day Lisinopril-Hydrochlorothiazide 10 mg-12.5 mg, 1 tablet orally daily AllergiesAllergies reviewedLast Verified By: АНДРЕЙ HEWITT RN on 02/16/2019 14:23Penicillin V(Rash) Family HistoryFamily history reviewedSocial history reviewedAlcohol useNone Reported : ALCOHOL HISTORY Last Documented By: BARNEY CR RN on 01/18/2014 18:34Recreational drug useNone Reported : RECREATIONAL DRUG HISTORY Last Documented By: BARNEY CR RN on 01/18/2014 18:34Tobacco useNever smoker None Reported : TOBACCO HISTORY Last Documented By: RYAN VALENCIA RN on 01/03/2014 20:18Vital SignsVital signs reviewedMaximum temperature within the last 24 hours: 97.8 FDate/time of maximum temperature: 02/16/2019 14:21Most recent vital signsBP: 128/90 02/16/2019 14:21 Pulse: 74 02/16/2019 14:21 Temp: 97.8 F 02/16/2019 14:21 Resp: 18 02/16/2019 14:21 O2 Sat: 98.0% 02/16/2019 14:21 Calculated BMI: 50 02/16/2019 14:21 Admission height (inches): 61Admission weight (kgs): 118.63Triage Vital SignsTemp: 97.8F 02/16/2019 14:21 Pulse: 74 bpm 02/16/2019 14:21 Respirations: 18 02/16/2019 14:21 Blood Pressure: 128/90 mmHg 02/16/2019 14:21 O2Sat: 98 % 02/16/2019 14:21 Height: 61 in 02/16/2019 14:21 Weight: 118.63 kg 02/16/2019 14:21 Calculated BMI: 50 02/16/2019 14:21 Physical ExamConstWithin normal limits: False, no apparent distress, appears stated age, comments: Vitals unremarkable. Patient appears very uncomfortable.Eyes: within normal limits, extraocular movements intact, PERRL, no conjunctival injection, sclera anictericHENT: Within normal limits, Normocephalic atraumatic, Tympanic membrane normal, No nasal discharge, Oral mucosa moist/clearNeck: Within normal limits, No lymphadenopathyCVS: Within nor mal limits, Regular rate and rhythm, No rubs/gallops/murmursResp: Within normal limits, Clear to auscultation bilaterally, No wheezes/rales/rhonchiGI: Within normal limits, Non-tender, Normal bowel sounds, No guarding/rebound/tenderness, No organomegalyGI comments: Soft, nontender/nondistended.Musc: Within normal limits, Joints normal, Range of motion normalExtrem: Within normal limits, No clubbing/cyanosis/edemaSkin: Within normal limits, No rash, No bruisingBackNo CVA tenderness: False, comments: Mild left CVA tenderness.Initial impression: Acute left flank pain, UTI, pyelonephritis, kidney stoneLaboratory resultsAll Lab ResultsOrder;Test;Value;Reference Range;Comments;Status;CollectionAMYLASE;AMYLASE;53;(25-125 U/L);;Final Result ;02/16/2019 16:15:00CBC DIFF;WBC;10.4;(4.8-10.8 K/uL);;Final Result ;02/16/2019 16:15:00CBC DIFF;RED BLOOD CELL;4.07 L;(4.20-5.40 M/uL);;Final Result ;02/16/2019 16:15:00CBC DIFF;HEMOGLOBIN;12.9;(12.0-16.0 gm/dL);;Final Result ;02/16/2019 16:15:00CBC DIFF;HEMATOCRIT;38.1;(36.0-48.0 %);;Final Result ;02/16/2019 16:15:00CBC DIFF;MCV;93. 7;(80.0-100.0 fL);;Final Result ;02/16/2019 16:15:00CBC DIFF;MCHC;33.9;(30.0-36.5 %);;Final Result ;02/16/2019 16:15:00CBC DIFF;MCH;31.8;(27.0-34.0 pg);;Final Result ;02/16/2019 16:15:00CBC DIFF;RDW;12.4;(11.0-15.0 %);;Final Result ;02/16/2019 16:15:00CBC DIFF;PLATELET COUNT;395;(130- 450 K/uL);;Final Result ;02/16/2019 16:15:00CBC DIFF;MPV;6.5;(6.0-12.0 fL);;Final Result ;02/16/2019 16:15:00CBC DIFF;NEUTROPHIL;85 H;(37-80 %);;Final Result ;02/16/2019 16:15:00CBC DIFF;LYMPHOCYTE;12;(10-50 %);;Final Result ;02/16/2019 16:15:00CBC DIFF;MONOCYTE;2;(0-12 %);;Final Result ;02/16/2019 16:15:00CBC DIFF;EOSINOPHIL;1;( < =8 %);;Final Result ;02/16/2019 16:15:00CBC DIFF;BASOPHIL;0;( < =3 %);;Final Result ;02/16/2019 16:15:00CBC DIFF;DEAN#;8.9 H;(1.8-8.6 K/uL);;Final Result ;02/16/2019 16:15:00CBC DIFF;LYMPHOCYTE #;1.3;(0.5-5.0 K/uL);;Final Result ;02/16/2019 16:15:00CBC DIFF;MONOCYTE #;0.2;(0.0-1.3 K/uL);;Final Result ;02/16/2019 16:15:00CBC DIFF;EOSINOPHIL #;0.1;(0.0-0.9 K/uL);;Final Result ;02/16/2019 16:15:00CBC DIFF;BASOPHIL #;0.0;(0.0-0.3 K/ul);;Final Result ;02/16/2019 16:15:00COMPREHENSIVE PANEL;SODIUM;137;(136-145 mmol/L);;Final Result ;02/16/2019 16:15:00COMPREHENSIVE PANEL;POTASSIUM;4.7;(3.5-5.2 mmol/L);;Final Result ;02/16/2019 16:15:00COMPREHENSIVE PANEL;CHLORIDE;106;(100-108 mmol/L);;Final Result ;02/16/2019 16:15:00COMPREHENSIVE PANEL;CARBON DIOXIDE;23;(21-32 mmol/L);;Final Result ;02/16/2019 16:15:00COMPREHENSIVE PANEL;GLUCOSE;122 H;(70- 100 mg/dL);;Final Result ;02/16/2019 16:15:00COMPREHENSIVE PANEL;BUN;22 H;(7-21 mg/dL);;Final Result ;02/16/2019 16:15:00COMPREHENSIVE PANEL;Creatinine;0.8;(0.6-1.3 mg/dL);;Final Result ;02/16/2019 16:15:00COMPREHENSIVE PANEL;CALCIUM;9.6;(8.5-10.8 mg/dL);;Final Result ;02/16/2019 16:15:00COMPREHENSIVE PANEL;GFR; > 60;;;Final Result ;02/16/2019 16:15:00COMPREHENSIVE PANEL;TOTAL BILIRUBIN;0.3;(0.0-1.2 mg/dL);;Final Result ;02/16/2019 16:15:00COMPREHENSIVE PANEL;TOTAL PROTEIN;7.5;(6.4-8.2 gm/dL);;Final Result ;02/16/2019 16:15:00COMPREHENSIVE PANEL;ALBUMIN;4.5;(3.4-4.8 gm/dL);;Final Result ;02/16/2019 16:15:00COMPREHENSIVE PANEL;ALK PHOS;92;(40-150 U/L);;Final Result ;02/16/2019 16:15:00COMPREHENSIVE PANEL;ALT(SGPT);31;(0-55 U/L);;Final Result ;06/2018 16:15:00COMPREHENSIVE PANEL;AST (SGOT);26;(5-37 U/L);;Final Result ;02/16/2019 16:15:00LIPASE;LIPASE;23;(8-78 U/L);;Final Result ;02/16/2019 16:15:00PREGNANCY TEST - SERUM; TEST - SERUM;NEGATIVE;;;Final Result ;02/16/2019 16:15:00PT/INR;PROTIME;11.6;(9.4-12.4 sec);;Final Result ;02/16/2019 16:15:00PT/INR;INR;1.0;;;Final Result ;02/16/2019 16:15:00PTT;PTT;28.6;(25.6-36.4 sec);;Final Result ;02/16/2019 16:15:00URINALYSIS ROUTINE;Dipstick Urine Color;YELLOW;;;Final Result ;02/16/2019 14:09:00URINALYSIS ROUTINE;Dipstick Urine Turbidity;HAZY;;;Final Result ;02/16/2019 14:09:00URINALYSIS ROUTINE;Dipstick Specific [place];1.020;(1.000-1.030);;Final Result ;02/16/2019 14:09:00URINALYSIS ROUTINE;Dipstick Urine pH;6.0;(5.0-8.0);;Final Result ;02/16/2019 14:09:00URINALYSIS ROUTINE;Dipstick Urine Leucoesterase;TRACE;;;Final Result ;02/16/2019 14:09:00URINALYSIS ROUTINE;Dipstick Urine Nitrate;NEGATIVE;;;Final Result ;02/16/2019 14:09:00URINALYSIS ROUTINE;Dipstick Urine Protein;30 [ 1 ];;;Final Result ;02/16/2019 14:09:00URINALYSIS ROUTINE;Dipstick Urine Glucose;NORMAL;;;Final Result ;02/16/2019 14:09:00URINALYSIS ROUTINE;Dipstick Urine Ketone;NEGATIVE;;;Final Result ;02/16/2019 14:09:00U RINALYSIS ROUTINE;Dipstick Urine Urobilinogen;NORMAL;;;Final Result ;02/16/2019 14:09:00URINALYSIS ROUTINE;Dipstick Urine Bili;NEGATIVE;;;Final Result ;02/16/2019 14:09:00URINALYSIS ROUTINE;Dipstick Urine Hgb;3 ;;;Final Result ;02/16/2019 14:09:00URINE MICROSCOPIC;Microscopic Urine WBC;3- 5;;;Final Result ;02/16/2019 14:09:00URINE MICROSCOPIC;Microscopic Urine RBC; > 100;;;Final Result ;02/16/2019 14:09:00URINE MICROSCOPIC;Microscopic Urine BACT;FEW;;;Final Result ;02/16/2019 14:09:00Xray results: 02/16/2019 5:[address] ABDOMEN AND PELVIS WITHOUT CONTRAST. . CLINICAL INFORMATION: Left flank pain, rule out obstructive uropathy --. UNSPECIFIED ABDOMINAL PAIN. . COMPARISON: 01/04/2018. . PROCEDURE: Contiguous images were obtained through the abdomen and pelvis. without intravenous contrast. Automated exposure control, adjustment of the mA. and/or kV according to patient size, and/or iterative reconstruction techniques. were utilized for radiation dose optimization.. . FINDINGS:. . Chest Base: Unremarkable.. . Liver/Biliary Tract: Cholecystectomy. . Pancreas: Unremarkable.. . Spleen: Unremarkable.. . Adrenals: Unremarkable.. . Kidneys and Collecting Systems: Unremarkable.. . Lymph Nodes: Unremarkable.. . Vessels: Unremarkable for age.. . GI Tract/Mesentery and Peritoneal Cavity: Appendectomy. Sigmoid diverticulosis. without signs of diverticulitis.. . Uterus/Ovaries: Unremarkable.. . Bladder: Unremarkable.. . Soft Tissues/Musculoskeletal: Small fat-containing umbilical hernia.. . IMPRESSION:. . No hydronephrosis or nephrolithiasis.. No CT signs to account for patient's pain.. . END OF IMPRESSION. . I have personally reviewed the images and the Resident's/Fellow's. interpretation and agree with or edited the findings.. . [facility] submits Radiology results to [facility] and. [facility] then provides those same results to [facility]. All. results are available to [facility] and [facility] users. [facility] DICOM images are available to the. [facility] provider portal users only. [facility] DICOM. images are not available to the [facility] provider portal users. There is. no current [facility] cross-IO functionality allowing images to be available through. the IO to [facility] connectivity.. Interpreted By: Rosaura Stephens M.D.. Electronically signed By: Ramesh Coleman M.D.. . Read By: RAMESH COLEMAN. Date: 02/16/2019 17:46EKG/Rhythm Strip InterpretationProgress Time 1: 1535 Progress comments 1: Patient seen and evaluated. Progress time 2: 1835 Progress comments 2: Serum negative. No leukocytosis noted on laboratory evaluation. Labs otherwise unremarkable. Urinalysis with 3-5 white blood cells, greater than 100 red blood cells and few bacteria. Urine culture was sent. Previous urinalyses reviewed in there is very frequently greater than 100 red blood cells. Patient is not anemic. CT scan without any acute abnormality. Patient is hemodynamically stable and appears well. Will treat for hemorrhagic cystitis. First dose of Bactrim given in the emergency department. Plan of care discussed with patient, will discharge patient home.Diagnosis: Acute flank pain . Acute hemorrhagic cystitis Diagnosis level 3Disposition time: 183 Discharge condition: Improved; StableDischarge plan: Advised rest and plenty of clear fluids. Take Bactrim as directed, finish entire course. Take Tylenol as needed for the discomfort. Follow up with your urologist within the next week as an outpatient. Return to the emergency department with any new or worsening symptoms.. . Your prescri ption has been sent to [facility] in [place]. Disposition: homePatient did not require critical care timeMidlevel signature: ARCHIE MORALESidlevel signature date: 02/17/2019 10:53Attending Physician Attestation: I have reviewed the midlevel documentation, agree with the documentation, medical decision making and treatment plan as outlined by the midlevelPhysician signature: KYM MITCHELLhysician signature date: 02/19/2019 04:58 Name Value Range Interpretation Code Description Data Victoria rce(s) Supporting Document(s) ID Date Data Source [id number] 08/09/2020 11:22:00 AM EDT [facility] Run: 08/09/20 1122 INTERFACED REPORT Name: Taniya Field Age/Sex: 34/F Location: [facility] Acct: [id number] Unit: [id number] Status: REG REF Room/Bed: Re08/06/20 Disch: Att Dr: Stuart Carolina MD Spec Num: [id number] Recd: 08/06/209 Status: AMERICA Lopez Num: [id number] SpType: MED CYTO Sub Dr: Stuart Carolina MD ProcFlow Cytometry, FLOW FIRST MARKER, FLOW EACH ADDITIONAL MARKER/23 DX: PNH- PAROXYSMAL NOCTURNAL HEMOGLOBINURLA FLOW CYTOMETRY, peripheral blood specimen: - No diagnostic immunophenotypic abnormalities detected (see [employer] report attached) [id number] / [id number] [employer] did two separate flow cytometry, one to rule out lymphoma and another one specific for PNH The result shows no evidence of PNH ( see separate report) Signed (signature on file) Weston Osman MD 08/08/20 0831[facility] END OF REPORT Name Value Range Interpretation Code Description Data Victoria e(s) Supporting Document(s) ID Date Data Source [id number] 07/31/2020 03:56:00 PM EDT [facility] Name Value Range Interpretation Code Description Data Victoria rce(s) Supporting Document(s) Measles virus IgG Ab [Units/volume] in Serum by Immunoassay 32.2 AU/m L [facility] ([facility] <content>Negative <13.5</content>
<content>Equivocal 13.5 - 16.4</content>
<content>Positive >16.4</content>
<content> Presence of antibodies to Rubeola is presumptive evidence</content>
<content>of immunity except when acute infection is suspected.</content>
<content></content> Rubella virus IgG Ab [Units/volume] in Serum 1.49 index [facility] ([facility] <content>Non-immune <0.90</content >
<content>Equivocal 0.90 - 0.99</content>
<content>Immune >0.99</content>
<content></content> Mumps virus IgG Ab [Units/volume] in Serum Laboratory test resul t Abnormal (applies to non-numeric results) [facility] <content>Negative <9.0</content>
<content>Equivocal 9.0 - 10.9</content>
<content>Positive >10.9</content>
<content>A positive result generally indicates past exposure to</content>
<content>Mumps virus or previous vaccination.</content>
<content>Performed at: [facility]</content>
<content>[address] [place] [id number]</content>
<content>Registered Private Duty Nurse: Jimena Jay MD, Phone: [phone]</content>
<content></content> ID Date Data Source [id number] 08/02/2020 11:14:00 AM EDT [facility] Name Value Range Interpretation Code Description Data Victoria rce(s) Supporting Document(s) Rubella IgG Ab,S 1.49 index Immune >0.99 [place] [facility] Non-imm une <0.90 Equivocal 0.90 - 0.99 Immune >0.99 Rubeola IgG Ab,S 32.2 AU/mL Immune >16.4 [place] [facility] Negati ve <13.5 Equivocal 13.5 - 16.4 Positive >16.4 Presence of antibodies to Rubeola is presumptive evidence of immunity except when acute infection is suspected. Mumps IgG,S <9.0 AU/mL [facility]e >10.9 [facility] Negativ e <9.0 Equivocal 9.0 - 10.9 Positive > 10.9 A positive result generally indicates past exposure to Mumps virus or previous vaccination. Performed at: [facility] [employer] [id number] Registered Private Duty Nurse: Jimena Jay MD, Phone: [phone] ID Date Data Source [id number] 07/31/2020 04:51:00 PM EDT [facility]UART CAROLINA MD [facility]OLOG[facility] STUART CAROLINA MD [facility] [place] [address], [place], [place], [id number] PHONE STUART CAROLINA MD [facility] STUART CAROLINA MD [facility] HEMATOLOGY [facility] [place] [address], [address], [place], [address] PHONE Name Value Range Interpretation Code Description Data Victoria rce(s) Supporting Document(s) WHITE BLOOD COUNT 8.12 10^3/uL 4.00-10.50 N [place] [facility] RED BLOOD COUNT 4.10 10^6/uL 3.90-5.20 [facility] HEMOGLOBIN 11.6 G/DL 11.5-15.6 N [place] [facility] HEMATOCRIT 35.1 % 35.0-46.0 [facility] MCV 85.6 FL 80.0-100.0 [facility] MCH 28.3 PG 27.0-34.0 [facility] MCHC 33.0 G/DL 32-36 [facility] RDW 15.7 % 11.5-14.5 H [facility] PLATELET COUNT 305 10^3/uL 130-400 [facility] MPV 9.7 FL 8.7-13.2 N [place] [facility] GRAN % (AUTO) 68.1 % 42.0-75.0 N [place] [facility] LYMPH % (AUTO) 23.8 % 20.0-51.0 N [place] [facility] MONO % (AUTO) 7.0 % 2.0-15.0 N [place] [facility] EOS % (AUTO) 0.5 % 0.0-11.0 N [place] [facility] BASO % (AUTO) 0.2 % 0.0-2.0 N [place] [facility] IG % (AUTO) 0.4 % 1.00-5.00 [place] [facility] IG # (AUTO) 0.0 10^3/uL <0.5 [facility] GRAN # (AUTO) 5.53 10^3/uL 1.50-6.50 [facility] LYMPH # (AUTO) 1.9 k/uL 1.0-5.0 [facility] MONO # (AUTO) 0.57 k/uL 0.20-1.50 [facility] EOS # (AUTO) 0.04 10^3/uL 0.00-1.10 [facility] BASO # (AUTO) 0.02 10^3/uL 0.00-0.20 [facility] ID Date Data Source [id number] 07/31/2020 05:51:00 PM EDT [facility]OL[facility] MD [facility] HEMATOLOGY STUART CAROLINA MD [facility] HEMATOLOGY [place] [facility] [place] [address], [address] PHONE STUART CAROLINA MD [facility] HEMATOLOGY STUART CAROLINA MD [facility] HEMATOLOGY [facility] t Cancer [place] [address], [address], [place], [address] PHONE Name Value Range Interpretation Code Description Data Victoria rce(s) Supporting Document(s) IRON 36 UG/DL 35-150 [facility] TIBC 395 UG/DL 260-400 [facility] % IRON SATURATION 9.0 % 20-50 [facility] ID Date Data Source [id number] 08/02/2020 11:24:00 AM EDT [facility] CAROL[facility] MD [facility] HEMATOLOGY STUART CAROLINA MD [facility] [place] [address], [address], [place], [address] PHONE STUART CAROLINA MD [facility] HEMATOLOGY STUART CAROLINA MD [facility] [place] [address], [address], [place], [address] PHONE Name Value Range Interpretation Code Description Data Victoria rce(s) Supporting Document(s) Transferrin 332 mg/dL 192-364 [facility] Performed at: RN - [facility] [address] [id number] Registered Private Duty Nurse: Jimena Jay MD, Phone: [phone] ID Date Data Source [id number] 07/31/2020 05:51:00 PM EDT [facility] STUART CAROLINA MD [facility] HEMATOLOGY STUART CAROLINA MD [facility] HEMATOLOG[facility] [place] [address] [place], [address] PHONE STUART CAROLINA MD [facility] HEMATOLOGY SUTART CAROLINA MD [facility] HEMATOLOGY [facility] [place] [address], [address], [place], [address] PHONE Name Value Range Interpretation Code Description Data Victoria rce(s) Supporting Document(s) FERRITIN 16.7 NG/ML 22-322 L [facility] ID Date Data Source [id number] 07/26/2020 03:50:00 PM EDT [facility] Name Value Range Interpretation Code Description Data Victoria rce(s) Supporting Document(s) pH of Urine by Test strip 7.0 [facility] ([facility]) Specific gravity of Urine 1.030 [facility] ([facility]) Color of Urine Laboratory test result [facility] ([facility]) Appearance of Urine Laboratory test result [facility] ([facility]) Leukocytes [#/area] in Urine sediment by Microscopy hi gh power field Laboratory test result [facility] ([facility]) Glucose [Presence] in Urine Laboratory test result [facility] ([facility]) Ketones [Presence] in Urine by Test strip Laboratory test result [facility] ([facility]) Protein [Presence] in Urine by Test strip Laboratory test result [facility] ([facility]) Bilirubin.total [Presence] in Urine by Test strip Laboratory test res ult [facility] ([facility]) Urobilinogen [Mass/volume] in Urine by Test strip Laboratory test res ult [facility] ([facility]) Nitrite [Presence] in Urine by Test strip Laboratory test result [facility] ([facility]) Ua Occult Blood Laboratory test result [facility] ([facility]) ID Date Data Source [id number] 07/26/2020 03:21:00 PM EDT [facility] Name Value Range Interpretation Code Description Data Victoria rce(s) Supporting Document(s) Laboratory test finding (navigational concept) Laboratory test result [facility] ([facility]) ID Date Data Source [id number] 07/26/2020 03:17:00 PM EDT [facility] Name Value Range Interpretation Code Description Data Victoria rce(s) Supporting Document(s) Laboratory test finding (navigational concept) Laboratory test result [facility] ([facility]) Bacteria identified in Urine by Culture Laboratory test result [facility] ([facility]) CULTURE, URINE, ROUTINE Micro Number: [id number] Test Status: Final Specimen Source: URINE Specimen Quality: Adequate Result: Growth of mixed radha was isolated, suggesting probable contamination. No further testing will be performed. If clinically indicated, recollection using a method to minimize contamination, with prompt transfer to Urine Culture Transport Tube, is recommended. ID Date Data Source [id number] 07/25/2020 04:39:00 [place] [address] Patient Name: Taniya Field Exam Date: 07/25/20 : 1985 Ordering Doctor: Lico Llamas Attending Doctor: Estevan Rich MD CC: EXAM: CT Abdomen and Pelvis without IV contrast HISTORY: Left flank pain COMPARISON: 11/13/2019 PROCEDURE: Axial sections are obtained from the diaphragm to the ischial tuberosities. Multiplanar reconstructions performed. One or more of the following dose reduction techniques were utilized in effectively lowering the patient's radiation dose for this examination: Automated Exposure Control, Adjustment of the mA and/or kV according to patient size, or Iterative reconstruction. FINDINGS: Evaluation of the abdominal viscera is limited by lack of IV contrast. Lungs/pleura: The visualized lung bases are clear. No pleural fluid. Hepatobiliary: The liver is enlarged. Again noted is diffuse hypoattenuation compatible with steatosis. No focal lesions are seen in the liver. No biliary dilatation. Gallbladder is surgically absent. Spleen: No significant abnormality. Adrenals: No significant abnormality. Pancreas: No significant abnormality. Genitourinary: Right kidney: No calculus, mass or hydronephrosis. Left kidney: No calculus, mass or hydronephrosis. Ureters: No calculus, mass or hydroureter. Urinary bladder: No calculus or mass. Pelvic organs: The uterus is normal in contour. There is no adnexal mass. Gastrointestinal: The bowel is normal in caliber throughout. Postsurgical changes are noted related to prior appendectomy. There is there are scattered diverticula at the distal descending and sigmoid colon. No focal wall thickening. . Aorta/retroperitoneum: No aortic aneurysm. Lymph Nodes: No abdominal or pelvic adenopathy. Peritoneum: No free fluid, free air, or focal fluid collection. Musculoskeletal: No suspicious osseous lesions or acute fractures. IMPRESSION: No acute pathology. Stable hepatomegaly and steatosis. Professional interpretation performed by [facility] at [facility] . End of diagnostic report: [id number] Signed: Jose Nolasco II, MD 07/25/201656 Interpreted by: Sonu Nolascocribed by: Jose Nolasco Name Value Range Interpretation Code Description Data Victoria rce(s) Supporting Document(s) ID Date Data Source [id number] 07/25/2020 04:21:20 PM EDT [facility] Note Status: FINAL (SIGNED)Full Name: Kade JONES Date: 1985Visit ID: [id number] Record Number: [id number]: 34YSex: FemaleRoom Location: ER ROOMSBed Location: ER 10Date of Service: 06/28/2020 11:22Creation Date: 06/28/2020 11:22Created By: [facility] Physician: FORTUNATO CONTRERASTime patient first seen: 1120 Informant: PatientHPI Chief Complaint: Left flank painHPI duration: 2 daysHPI timing: Still presentHPI comments: 34-year-old female with a history of PE on Lovenox presents for left flank pain. Symptoms started yesterday and worsened since that time. She has had kidney stone but has passed them in the past. This one is much more painful. She has associated nausea but no vomiting. She has urinary urgency and she did notice blood in her urine yesterday. No fevers or chills. Denies any chest pain, shortness of breath. Moving her bowels normally.Review of SystemsAll systems reviewed and negative except as noted in HPIED Triage Note: Pt presents to ed via amb c/o left flank pain x 2 days. Pt states hx kidney stones [WINSTON RIOS 06/28/20 10:57]Past Medical/Surgical HistoryPast medical/surgical history reviewedFull problems and procedures listProblem;Associated ICD-10-CM Code;Status;OnsetAppendectomy;None Associated;Completed;UnknownAsthma;None Associated;Active;UnknownCholecystectomy;None Associated;Completed;UnknownHypercholesterolemia;None Assoc iated;Active;UnknownHome MedicationsHome medications reviewedLast Verified By: GARY YUAN on 06/28/2020 12:11Clindamycin, 300 milligram orally 2 times per day (Duration: 14 days), Start Date: 06/26/2020 Enoxaparin, 120 milligram subcutaneously every 12 hours methocarbamoL, 500 milligram orally daily Multivitamins Tablet, 1 tablet orally daily AllergiesAllergies reviewedLast Verified By: WINSTON RIOS RN on 06/28/2020 10:57Motrin(on blood thinner), Penicillin V(Rash) Family HistoryFamily history reviewedMother (alive) 43Y Benign essential hypertension, Father 50Y ( [place] ) Social history reviewedVital SignsVital signs reviewedMaximum temperature within the last 24 hours: 98.3 FDate/time of maximum temperature: 06/28/2020 10:56Most recent vital signsBP: 107/62 06/28/2020 15:06 Pulse: 75 06/28/2020 15:06 Temp: 98.2 F 06/28/2020 15:06 Resp: 20 06/28/2020 15:06 O2 Sat: 100.0%(Room Air) 06/28/2020 15:06 Calculated BMI: 49.3 06/28/2020 10:56 Admission height (inches): 61Admission weight (kgs): 117Triage Vital SignsTemp: 98.3F 06/28/2020 10:56 Pulse: 66 bpm 06/28/2020 10:56 Respirations: 18 06/28/2020 10:56 Blood Pressure: 150/90 mmHg 06/28/2020 10:56 O2Sat: 99 % 06/28/2020 10:56 Height: 61 in 06/28/2020 10:56 Weight: 117 kg 06/28/2020 10:56 Calculated BMI: 49.3 06/28/2020 10:56 Physical ExamConst: Within normal limitsEyes: within normal limitsCVS: Within normal limitsResp: Within normal limitsGI: With in normal limits, Non-tender, No guarding/rebound/tendernessNeuro: Within normal limitsBack: No CVA tendernessInitial impression: Renal colic, diverticulitis, UTI, pyelonephritisOrdersStart Date;Description;Frequency;Ordered By;Status06/28/2020;CT-ABD PELVIS NO CONTRAST (DRY) ;Once;PRAKASH JASSO;Today06/28/2020;ED INITIATE FLANK PAIN / KIDNEY STONE PATHWAY ;Once;PRAKASH JASSO;Today06/28/2020;IV - PERIPHERAL - INSERT & MAINTAIN ;CONTINUOUS;PRAKASH JASSO;Active06/28/2020;STRAIN URINE, SAVE STONE ;Once;PRAKASH JASSO;Today06/28/2020;CBC DIFF ;Once;PRAKASH JASSO;Today06/28/2020;COMPREHENSIVE PANEL ;Once;PRAKASH JASSO;Today06/28/2020;CULTURE URINE ;Once;PRAKASH JASSO;Today06/28/2020;URINALYSIS ROUTINE ;Once;PRAKASH JASSO;Today06/28/2020;URINE MICROSCOPIC ;Once;PRAKASH JASSO;Today06/28/2020;MORPHINE 4 MG/1 ML IVP ;ED - ONE TIME ONLY;PRAKASH JASSO;Inactive06/28/2020;ONDANSETRON HCL (PF) 4 MG/2 ML IVP ;ED - ONE TIME ONLY;PRAKASH JASSO;Inactive06/28/2020;SODIUM CHLORIDE 0.9% 1,000 ML IV ;ED - ONE TIME ONLY;PRAKASH JASSO;Inactive06/28/2020;MEPERIDINE (PF) 25 MG/1 ML IVP ;ED - ONE TIME ONLY;PRAKASH JASSO;Inactive06/28/2020;CEFTRIAXONE ADDV 1GM 1 GM QBAG IPB ;ED - ONE TIME ONLY;PRAKASH JASSO;Inactive06/28/2020;OXYCODONE- ACETAMINOPHEN 5-325 MG 1 TAB ORAL ;ED - ONE TIME ONLY;PRAKASH JASSO;ActiveLaboratory resultsLab Results for the past 24 hoursOrder;Test;Value;Reference Range;Comments;Status;CollectionCBC DIFF;WBC;6.2;(4.8-10.8 K/uL);;Final Result ;06/28/2020 11:30:00CBC DIFF;RED BLOOD CELL;4.04 L;(4.20-5.40 M/uL);;Final Result ;06/28/2020 11:30:00CBC DIFF;HEMOGLOBIN;11.7 L;(12.0-16.0 gm/dL);;Final Result ;06/28/2020 11:30:00CBC DIFF;HEMATOCRIT;34.6 L;(36.0-48.0 %);;Final Result ;06/28/2020 11:30:00CBC DIFF;MCV;85.8;(80.0-100.0 fL);;Final Result ;06/28/2020 11:30:00CBC DIFF;MCHC;33.7;(30.0-36.5 %);;Final Result ;06/28/2020 11:30:00CBC DIFF;MCH;28.9;(27.0-34.0 pg);;Final Result ;06/28/2020 11:30:00CBC DIFF;RDW;15.0;(11.0-15.0 %);;Final Result ;06/28/2020 11:30:00CBC DIFF;PLATELET COUNT;334;(130-450 K/uL);;Final Result ;06/28/2020 11:30:00CBC DIFF;MPV;6.6;(6.0-12.0 fL);;Final Result ;06/28/2020 11:30:00CBC DIFF;NEUTROPHIL;59;(37-80 %);;Final Result ;06/28/2020 11:30:00CBC DIFF;LYMPHOCYTE;32;(10-50 %);;Final Result ;06/28/2020 11:30:00CBC DIFF;MONOCYTE;7;(0-12 %);;Final Result ;06/28/2020 11:30:00CBC DIFF;EOSINOPHIL;2;( < =8 %);;Final Result ;06/28/2020 11:30:00CBC DIFF;BASOPHIL;0;( < =3 %);;Final Result ;06/28/2020 11:30:00CBC DIFF;DEAN#;3.7;(1.8-8.6 K/uL);;Final Result ;06/28/2020 11:30:00CBC DIFF;LYMPHOCYTE #;2.0;(0.5-5.0 K/uL);;Final Result ;06/28/2020 11:30:00CBC DIFF;MONOCYTE #;0.4;(0.0-1.3 K/uL);;Final Result ;06/28/2020 11:30:00CBC DIFF;EOSINOPHIL #;0.1;(0.0-0.9 K/uL);;Final Result ;06/28/2020 11:30:00CBC DIFF;BASOPHIL #;0.0;(0.0-0.3 K/ul);;Final Result ;06/28/2020 11:30:00COMPREHENSIVE PANEL;SODIUM;138;(136-145 mmol/L);;Final Result ;06/28/2020 11:30:00CO MPREHENSIVE PANEL;POTASSIUM;4.2;(3.5-5.2 mmol/L);;Final Result ;06/28/2020 11:30:00COMPREHENSIVE PANEL;CHLORIDE;107;(100-108 mmol/L);;Final Result ;06/28/2020 11:30:00COMPREHENSIVE PANEL;CARBON DIOXIDE;23;(21-32 mmol/L);;Final Result ;06/28/2020 11:30:00COMPREHENSIVE PANEL;GLUCOSE;90;(70-100 mg/dL);;Final Result ;06/28/2020 11:30:00COMPREHENSIVE PANEL;BUN;15;(7-21 mg/dL);;Final Result ;06/28/2020 11:30:00COMPREHENSIVE PANEL;Creatinine;0.7;(0.6-1.3 mg/dL);;Final Result ;06/28/2020 11:30:00COMPREHENSIVE PANEL;CALCIUM;9.0;(8.5-10.8 mg/dL);;Final Result ;06/28/2020 11:30:00COMPREHENSIVE PANEL;GFR; > 60;;;Final Result ;06/28/2020 11:30:00COMPREHENSIVE PANEL;TOTAL BILIRUBIN;0.3;(0.0-1.2 mg/dL);;Final Result ;06/28/2020 11:30:00COMPREHENSIVE PANEL;TOTAL PROTEIN;7.1;(6.4-8.2 gm/dL);;Final Result ;06/28/2020 11:30:00COMPREHENSIVE PANEL;ALBUMIN;3.9;(3.4-4.8 gm/dL);;Final Result ;06/28/2020 11:30:00COMPREHENSIVE PANEL;ALK PHOS;113;(40-150 U/L);;Final Result ;06/28/2020 11:30:00COMPREHENSIVE PANEL;ALT(SGPT);42;(0-55 U/L);;Final Result ; 11:30:00COMPREHENSIVE PANEL;AST (SGOT);39 H;(5-37 U/L);;Final Result ;06/28/2020 11:30:00URINALYSIS ROUTINE;Dipstick Urine Color;ORANGE;;;Final Result ;06/28/2020 11:25:19URINALYSIS ROUTINE;Dipstick Urine Turbidity;TURBID;;;Final Result ;06/28/2020 11:25:19URINALYSIS ROUTINE;Dipstick Specific [place];1.015;(1.000-1.030);;Final Result ;06/28/2020 11:25:19URINALYSIS ROUTINE;Dipstick Urine pH;5.0;(5.0-8.0);;Final Result ;06/28/2020 11:25:19URINALYSIS ROUTINE;Dipstick Urine Leucoesterase;2 ;;;Final Result ;06/28/2020 11:25:19URINALYSIS ROUTINE;Dipstick Urine Nitrate;POSITIVE;;;Final Result ;06/28/2020 11:25:19URINALYSIS ROUTINE;Dipstick Urine Protein;100 [ 2 ];;;Final Result ;06/28/2020 11:25:19URINALYSIS ROUTINE;Dipstick Urine Glucose;NORMAL;;;Final Result ;06/28/2020 11:25:19URINALYSIS ROUTINE;Dipstick Urine Ketone;NEGATIVE;;;Final Result ;06/28/2020 11:25:19URINALYSIS ROUTINE;Dipstick Urine Urobilinogen;NORMAL;;;Final Result ;06/28/2020 11:25:19URINALYSIS ROUTINE;Dipstick Urine Bili;NEGATIVE;;;Final Result ;06/28/2020 11:25:19URINALYSIS ROUTINE;Dipstick Urine Hgb;3 ;;;Final Result ;06/28/2020 11:25:19URINE MICROSCOPIC;Microscopic Urine WBC;5- 10;;;Final Result ;06/28/2020 11:25:19URINE MICROSCOPIC;Microscopic Urine RBC; > 100;;;Final Result ;06/28/2020 11:25:19URINE MICROSCOPIC;Microscopic Urine BACT;FEW;;;Final Result ;06/28/2020 11:25:19URINE MICROSCOPIC;Microsco pic Urine Epi;MODERATE;;;Final Result ;06/28/2020 11:25:19EKG/Rhythm Strip InterpretationProgress Time 1: 1105 Progress comments 1: Patient was seen and evaluated. Flank pain work-up.Progress time 3: 1255 Progress comments 3: Labs nonactionable. Small fat-containing umbilical hernia with fat stranding, no kidney stone noted. Discussed with Dr. Quevedo he states the hernia and CT looks similar to previous. She is tender in that area. She will be treated for urinary tract infection.Progress time 4: 1520 Progress comments 4: Feeling better, patient hydrate while she is at home, take antibiotic as prescribed and pain medication as needed. Close follow-up with PCP in the next 2 to 3 days or return the ER for any worsening symptoms..Consultation discussed with Radha QuevedoConsultation comments: Patient can follow-up in the office. Nothing to do for this hernia at this time, looks similar to previous.Consult comments: Patient can follow-up in the office. Nothing to do for this hernia at this time, looks similar to previous.Diagnosis: Acute urinary tract infection. Umbilical fat herniaDiagnosis level 3Disposition time: 1520 Discharge condition: ImprovedDischarge plan: See aboveDisposition: homePatient did not require critical care timeMidlevel signature: Guerda RODRIGUEZ signature date: 06/30/2020 10:59Physician signature: FAUSTO AMADOhysician signature date: 07/24/2020 07:50 Name Value Range Interpretation Code Description Data Victoria rce(s) Supporting Document(s) ID Date Data Source [id number] 07/25/2020 03:46:00 PM EDT [facility] ([facility]) Name Value Range Interpretation Code Description Data Victoria rce(s) Supporting Document(s) Sodium [Moles/volume] in Serum or Plasma 138 meq/L 135-145 [facility] ([facility]) Potassium [Moles/volume] in Serum or Plasma 4.4 meq/L 3.5-5.3 [facility] ([facility]) Chloride [Moles/volume] in Serum or Plasma 104 meq/L 94-110 [facility] ([facility]) Carbon dioxide, total [Moles/volume] in Serum or Plasma 28 meq/L 22 -33 [facility] ([facility]) Anion gap in Serum or Plasma 10 5-16 [facility] ([facility]) Creatine [Mass/volume] in Serum or Plasma 0.8 mg/dL 0.6-1.4 [facility] ([facility]) Urea nitrogen [Mass/volume] in Serum or Plasma 14 mg/dL 7-25 [facility] ([facility]) Glucose [Mass/volume] in Serum or Plasma 92 mg/dL 70-100 [facility] ([facility]) Glomerular filtration rate/1.73 sq M.pre dicted [Volume Rate/Area] in Serum or Plasma by Creatinine-based formula (MDRD) 81.2 mL/min [facility] ([facility]) Stage G2 - Mildly decreased kidney funct ion The GFR is an estimate of the Glomerular Filtration Rate. It is an aid to assess a patient's renal function. It is not a conclusive diagnosis of kidney disease. GFR normal is >=90 The MDRD GFR calculation is considered valid between the ages of 18 and 75 years only. Urea nitrogen/Creatinine [Mass Ratio] in Serum or Plasma 17 8 -36 [facility] ([facility]) Bilirubin.total [Mass/volume] in Serum or Plasma 0.3 mg/dL 0.1-1.3 [facility] ([facility]) Calcium [Mass/volume] in Serum or Plasma 9.1 mg/dL 8.7-10.5 [facility] ([facility]) Aspartate aminotransferase [Enzymatic activity/volume] in Serum or Plasma 57 U/L 5-40 Above high normal [facility] ([facility]) Alkaline phosphatase [Enzymatic activity/volume] in Serum or Plasma 117 U/L 40-140 [facility]) Alanine aminotransferase [Enzymatic activity/volume] in Seru m or Plasma 53 U/L 5-48 Above high normal [facility]) Globulin [Mass/volume] in Serum by calculation 2.2 g/dL 1.5-3.5 [facility] ([facility]) Albumin [Mass/volume] in Serum or Plasma 4.6 g/dL 3.0-5.1 [facility] ([facility]) Protein [Mass/volume] in Serum or Plasma 6.8 g/dL 5.9-8.3 [facility] ([facility]) Albumin/Globulin [Mass Ratio] in Serum or Plasma 2.1 g/dL 1.0-3.0 [facility] ([facility]) ID Date Data Source [id number] 07/25/2020 03:46:00 PM EDT [facility] Name Value Range Interpretation Code Description Data Victoria rce(s) Supporting Document(s) Hemoglobin [Mass/volume] in Blood 11.6 g/dL 11.5-15.6 [facility] ([facility]) Leukocytes [#/volume] in Blood by Automated count 8.64 10^3/uL 4.00-1 0.50 [facility] ([facility]) Erythrocytes [#/volume] in Blood by Automated count 4.27 10^6/uL 3.90 -5.20 [facility] ([facility]) Erythrocyte mean corpuscular hemoglobin [Entitic mass] by Automated count 27.2 pg 27.0-34.0 [facility] ([facility]) Erythrocyte mean corpuscular volume [Entitic volume] by Auto mated count 85.7 FL 80.0-100.0 [facility]) Hematocrit [Volume Fraction] of Blood by Automated count 36.6 % 3 5.0-46.0 [facility] ([facility]) Erythrocyte distribution width [Ratio] by Automated count 16.1 % 11.5-14.5 Above high normal [facility] ([facility]) Erythrocyte mean corpuscular hemoglobin concentration [Mass/volume] by Automated count 31.7 g/dL 32-36 Below low normal [facility]) Platelet mean volume [Entitic volume] in Blood by Duran 9.3 FL 8.7-13.2 [facility] ([facility]) Platelets [#/volume] in Blood by Automated count 363 10^3/uL 130-400 [facility] ([facility]) Granulocytes/100 leukocytes in Blood 64.1 % 42.0-75.0 [facility] ([facility]) Lymphocytes/100 leukocytes in Blood by Automated count 25.8 % 20. 0-51.0 [facility] ([facility]) Monocytes/100 leukocytes in Blood by Automated count 7.8 % 2.0-1 5.0 [facility] ([facility]) Eosinophils/100 leukocytes in Blood by Automated count 1.5 % 0.0 -11.0 [facility] ([facility]) Basophils/100 leukocytes in Blood by Automated count 0.2 % 0.0-2 .0 [facility] ([facility]) Ig % (Auto) 0.6 % 1.00-5.00 [facility] Immature granulocytes [#/volume] in Blood 0.1 10^3/uL [facility] ([facility]) Lymphocytes [#/volume] in Blood by Automated count 2.2 k/uL 1.0-5.0 [facility] ([facility]) Granulocytes [#/volume] in Blood 5.54 10^3/uL 1.50-6.50 [facility] ([facility]) Basophils [#/volume] in Blood by Automated count 0.02 10^3/uL 0.00-0. 20 [facility] ([facility]) Eosinophils [#/volume] in Blood by Automated count 0.13 10^3/uL 0.00- 1.10 [facility] ([facility]) Monocytes [#/volume] in Blood by Automated count 0.67 k/uL 0.20-1.50 [facility] ID Date Data Source [id number] 07/25/2020 04:14:00 PM EDT [facility] Name Value Range Interpretation Code Description Data Victoria rce(s) Supporting Document(s) WHITE BLOOD COUNT 8.64 10^3/uL 4.00-10.50 [facility] RED BLOOD COUNT 4.27 10^6/uL 3.90-5.20 [facility] 11.6 G/DL 11.5-15.6 [facility] HEM[facility]IT 36.6 % 35.0-46.0 [facility] MCV 85.7 FL 80.0-100.0 [facility] MCH 27.2 PG 27.0-34.0 [facility] MCHC 31.7 G/DL 32-36 [facility] RDW 16.1 % 11.5-14.5 [facility] PLATELET COUNT 363 10^3/uL 130-400 [facility] MPV 9.3 FL 8.7-13.2 [facility] GRAN % (AUTO) 64.1 % 42.0-75.0 [facility] LYMPH % (AUTO) 25.8 % 20.0-51.0 [facility] MONO % (AUTO) 7.8 % 2.0-15.0 [facility] EOS % (AUTO) 1.5 % 0.0-11.0 [facility] BASO % (AUTO) 0.2 % 0.0-2.0 [facility] IG % (AUTO) 0.6 % 1.00-5.00 [facility] IG # (AUTO) 0.1 10^3/uL <0.5 [facility] GRAN # (AUTO) 5.54 10^3/uL 1.50-6.50 [facility] LYMPH # (AUTO) 2.2 k/uL 1.0-5.0 [facility] MONO # (AUTO) 0.67 k/uL 0.20-1.50 [facility] EOS # (AUTO) 0.13 10^3/uL 0.00-1.10 N [facility] BASO # (AUTO) 0.02 10^3/uL 0.00-0.20 N [facility] ID Date Data Source [id number] 07/25/2020 04:24:00 PM EDT [facility] Name Value Range Interpretation Code Description Data Victoria rce(s) Supporting Document(s) SODIUM 138 MEQ/L 135-145 N [facility] POTASSIUM 4.4 MEQ/L 3.5-5.3 N [facility] CHLORIDE 104 MEQ/L 94-110 N [facility] CARBON DIOXIDE 28 MEQ/L 22-33 N [facility] ANION GAP 10 5-16 N [facility] BLOOD UREA NITRO 14 MG/DL 7-25 N [facility] CREATININE 0.8 MG/DL 0.6-1.4 [facility] GFR 81.2 ML/MIN [facility] Stage G2 - Mildly decreased kidney func tion The GFR is an estimate of the Glomerular Filtration Rate. It is an aid to assess a patient's renal function. It is not a conclusive diagnosis of kidney disease. GFR normal is >=90 The MDRD GFR calculation is considered valid between the ages of 18 and 75 years only. BUN/CREAT RATIO 17 8-36 [facility] [place] GLUCOSE 92 MG/DL 70-100 [facility] CA 9.1 MG/DL 8.7-10.5 [facility] BILIRUBIN,TOTAL 0.3 MG/DL 0.1-1.3 [facility] AST 57 U/L 5-40 [facility] ALT 53 U/L 5-48 [facility] ALKALINE PHOSPHATASE 117 U/L 40-140 [facility] alth TOTAL PROTEIN 6.8 G/DL 5.9-8.3 N [facility] ALBUMIN 4.6 G/DL 3.0-5.1 [facility] GLOBULIN 2.2 G/DL 1.5-3.5 [facility] ALB/GLOB RATIO 2.1 G/DL 1.0-3.0 [facility] ID Date Data Source [id number] 07/25/2020 02:11:00 PM EDT [address] [address] HEALTH INFORMATION MANAGEMENT ED/ Physician Report : [id number] Signed Patient: Taniya Field Acct:[id number] Unit: [facility] [id number] : 1985 Arrival Date: 07/25/20 Age/Sex: 34 / F Arrival Time: 1345 Copies to: Fortunato Contreras MD Female Urogenital HPI/ROS General Chief Complaint: Complaint- Female Stated Complaint: Poss Kidney Stone Stated Complaint: Poss Kidney Stone Source: Patient and I have reviewed available Ancillary/nursing staff documentation Mode of arrival: Ambulatory Limitations: Reports No limitations History of Present Illness Initial Comments: 4-year-old female with the patient history of kidney stones. Complaining of severe left flank pain she was here couple months ago and was told was no stone in her kidney. She believes there is 1, she has the same pain today that she had 2 months ago. The pain is sharp. Radiates down to her left flank from the left scapular region non positional. No associated diaphoresis. Mild nausea without vomiting. Currently, the pain is 7/10 severity. No other modifiers. Nogross hematuria. No fevers. No chest pain or shortness of breath. Related Data Home Medications Medication Instructions Recorded enoxaparin [Lovenox] 120 mg SUBCUT Q12H 03/29/20 baclofen 10 mg PO DAILY 05/11/20 buspirone 10 mg PO BID 05/11/20 levocetirizine [Xyzal] 5 mg PO DAILY 05/11/20 mirtazapine [Remeron] 15 mg PO DAILY 05/11/20 venlafaxine 37.5 mg PO DAILY 05/11/20 Allergies Penicillins Allergy (Intermediate, Verified 07/25/20 14:01) RASH/HIVES ibuprofen Adverse Reaction (Severe, Verified 07/25/20 14:01) contraindication with blood thinner Review of Systems Review of Systems All systems: Reviewed and negative except as stated in HPI. 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 Lives with: Reports Alone PMH/PSH Medical History (Updated 07/25/20 @ 17:22 by JOE Golden) Asthma Diverticulitis Factor 5 Leiden mutation, heterozygous Hypertension Kidney stone Pulmonary emboli Rotator cuff strain Surgical History History of appendectomy (Surgical) Hx of cholecystectomy (Surgical) Family History Other No pertinent family history Patient denies significant medical history Physical Exam Physical Exam General appearance: Alert and In no apparent distress Head Head Exam: Atraumatic and Normcephalic Eye Eye Exam: EOMI and PAPO ENT ENT Exam: Throat normal and Tympanic membrane normal Neck Neck Exam: Full ROM and Supple Abdomen Abdominal Exam: Bowel sounds normal, Soft and No guarding Back Location of Back Tenderness: CVA: Left Neuro Neuro Normal: Alert, Oriented x 3 and CN 2-12 normal Psych Psych Normal: Normal Affect Skin Skin exam: Dry, Intact, [place] and Warm Course Course Course Narrative: Patient did very well. Vital Signs Vital signs: Vital Signs 07/25/20 13:58 Temperature 98.5 F Pulse Rate 109 H Respiratory Rate 16 Blood Pressure 135/93 H O2 Sat by Pulse Oximetry 99 Medical Decision Making/CCT Lab Data Result diagrams: 07/25/20 15:46 07/25/20 15:46 Medical Decision Making Medical Decision Making: Patient's CT was negative. Patient said she was on her menses. She is urologically asymptomatic. The only thing she has of any significance is chronic left flank pain. She has been here several times before for the same issue. I recommended plenty of fluids and follow up tomorrow morning with her PCP. Patient agreed and understands all risks. Discharge Plan Disposition Clinical Impression: Back pain Qualifiers: Back pain location: back pain in unspecified location Chronicity: chronic Back pain laterality: unspecified Qualified Code(s): M54.9 - Dorsalgia, unspecified Provider stated Dispo: Discharged Condition: Stable Instructions: Acute Low Back Pain (ED) Prescriptions: No Action enoxaparin [Lovenox] 120 mg/0.8 mL syringe 120 mg subcut Q12H RF: 0 baclofen 10 mg tablet 10 mg PO DAILY RF: 0 venlafaxine 37.5 mg tablet 37.5 mg PO DAILY RF: 0 buspirone 10 mg tablet 10 mg PO BID RF: 0 mirtazapine [Remeron] 15 mg tablet 15 mg PO DAILY RF: 0 levocetirizine [Xyzal] 5 mg tablet 5 mg PO DAILY RF: 0 Referrals: Fortunato Contreras MD [Primary Care Provider] - 2-3 days Stand Alone Forms: No Work/Physical Activity, Portal Instructions Patient agreeable to discharge: Patient/Guardian understands and is agreeable to discharge plan Provider in triage note Vital Signs Vital Signs: I O (Last 24 Hours) 07/23/20 07/24/20 07/25/20 23:59 23:59 23:59 Other: Weight 118 kg Vital Signs (Last 8 Hours) Temp Pulse Resp BP Pulse Ox 07/25/20 13:58 98.5 F 109 H 16 135/93 H 99 Date/Time <<Signature on File>> Initializing User: Lico DIAZ 07/25/20 1411 Signed by: Lico Llamas 07/25/20 7123 Estevan Rich MD 07/25/20 0591 Name Value Range Interpretation Code Description Data Victoria rce(s) Supporting Document(s) ID Date Data Source [id number] 07/25/2020 01:46:00 PM EDT [facility] Name Value Range Interpretation Code Description Data Victoria rce(s) Supporting Document(s) Appearance of Urine Laboratory test result Abnor mal (applies to non-numeric results) [facility] ([facility]) Color of Urine Laboratory test result Abnormal (applies to non-numeric results) [facility]) Specific gravity of Urine 1.019 1.002-1.035 [facility] ([facility]) Protein [Presence] in Urine by Test strip 100 mg/dL Abnormal (applies to non- numeric results) [facility] ([facility]) pH of Urine 6.0 5.0-8.0 [facility]) Ketones [Presence] in Urine by Test strip Laboratory test result [facility] ([facility]) Hemoglobin [Presence] in Urine by Test strip Laboratory test res ult Abnormal (applies to non-numeric results) [facility] Glucose [Mass/volume] in Urine Laboratory test result [facility] ([facility]) Leukocyte esterase [Presence] in Urine by Test strip Laboratory test result Abnormal (applies to non-numeric results) [facility]) Bilirubin.total [Presence] in Urine by Test strip Laboratory test res ult [facility] Nitrate [Presence] in Urine Laboratory test result [facility] ([facility]) Urobilin [Presence] in Urine Laboratory test result 0-0 [facility] ([facility]) RBC,Ur Laboratory test result 0-2 Abnormal (applies to non -numeric results) [facility] ([facility]) Mucus [Presence] in Urine sediment by Light microscopy Laborator y test result [facility] ([facility] Epithelial cells [Presence] in Urine sediment by Light microscopy Laboratory test result 0-0 [facility] ([facility]) ID Date Data Source [id number] 07/25/2020 01:46:00 PM EDT [facility] Name Value Range Interpretation Code Description Data Victoria rce(s) Supporting Document(s) Choriogonadotropin.beta subunit ( test) [Pres ence] in Serum or Plasma Laboratory test result [facility] Choriogonadotropin ( test) [Presence] in Urine Labo ratory test result [facility] Choriogonadotropin [Units/volume] in Urine Laboratory test [facility] Reference range is Negative To ensure best sensitivity, first morning void is recommended. Dilute, low specific gravity urine may give a falsely negative result. If is suspected, repeat testing with a new specimen 48-72 hours later. Choriogonadotropin [Units/volume] in Urine Laboratory test result [facility] ID Date Data Source [id number] 07/25/2020 04:23:00 PM EDT [facility] Name Value Range Interpretation Code Description Data Victoria rce(s) Supporting Document(s) COLOR,UR LUIS M YELLOW A [facility] APPEARANCE,UR CLOUDY CLEAR A [facility] PH,UR 6.0 5.0-8.0 [facility] SPECIFIC GRAVITY,UR 1.019 1.002-1.035 [facility] PROTEIN,UR 100 MG/DL NEGATIVE A [facility] GLUCOSE, UR NEGATIVE MG/DL NEGATIVE [facility] KETONES,UR NEGATIVE MG/DL NEGATIVE [facility] OCCULT BLOOD,UR LARGE NEGATIVE A [facility] NITRATE,UR NEGATIVE NEGATIVE [facility] LEUKOCYTE ESTERASE ,UR TRACE NEGATIVE A [facility] BILIRUBIN,UR NEGATIVE NEGATIVE [facility] UROBILINOGEN,UR 0.2-1.0 EU MG/DL NEG-0-1.0 [facility] RBC,[facility] >100 PER HPF 0-2 [facility] URINE EPITH MANY PER/LPF FEW-MOD [facility] MUCUS,UR FEW PER HPF NONE SEEN [facility] ID Date Data Source [id number] 07/25/2020 04:20:00 PM EDT [facility] Name Value Range Interpretation Code Description Data Victoria rce(s) Supporting Document(s) HCG QUALITATIVE SPECIMEN URINE [facility] ID Date Data Source [id number] 07/25/2020 04:20:00 PM EDT [facility] Name Value Range Interpretation Code Description Data Victoria rce(s) Supporting Document(s) HCG RESULT,U NEGATIVE [facility] Reference range is Negative To ensure best sensitivity, first morning void is recommended. Dilute, low specific gravity urine may give a falsely negative result. If is suspected, repeat testing with a new specimen 48-72 hours later. ID Date Data Source [id number] 07/02/2020 01:15:21 PM EDT [facility] PATIENT INFORMATIONPatient MRN Name Date of [id number] Taniya Field 1985 34 y.o. Weight Gender PT Class 118.4 kg F EmergencyPT Location Admission Date/Time [facility] --- --- EPI ID CSN Admitting Provider [id number] ---[facility] ADULT EDHistoryChief ComplaintPatient presents with Flank PainPt with a hx of documented concerns re opiates- presents frequently for "kidneystones." She has an FYI to help navigate her care here- she has been to [facility] recently for "Kidney stones" at a myriad of facilities and has absconded atalmost all visits prior to workup being started. Today she states its her kidneystones acting up. No N/V - has L flank painHistory provided by: PatientFlank PainSeverity: MildOnset quality: GradualTiming: IntermittentProgression: Waxing and waningChronicity: ChronicRelieved by: NothingWorsened by: Non compliance, opiate concernsAssociated symptoms: abdominal painAssociated symptoms: no chest pain, no cough, no fever, no headaches, no nausea,no shortness of breath and no vomitingPast Medical History:Diagnosis Date Asthma Hypertension Kidney stones Ovarian cystPast Surgical History:Procedure Laterality Date APPENDECTOMY CHOLECYSTECTOMYFamily HistoryProblem Relation Age of Onset Breast cancer Neg Hx Colon cancer Neg Hx Cancer Neg Hx Diabetes Neg Hx Hypertension Neg Hx Ovarian cancer Neg Hx Stroke Neg Hx Heart disease Neg HxSocial HistoryTobacco Use Smoking status: Never Smoker Smokeless tobacco: Never UsedSubstance Use Topics Alcohol use: No Drug use: NoSexual ActivitySubstance and Sexual ActivitySexual Activity Not Currently Partners: Male control/protection: NoneReview of SystemsConstitutional: Negative for fever.Respiratory: Negative for cough and shortness of breath.Cardiovascular: Negative for chest pain.Gastrointestinal: Positive for abdominal pain. Negative for nausea and vomiting.Genitourinary: Positive for flank pain.Musculoskeletal: Negative for arthralgias.Skin: Negative for color change.Neurological: Negative for headaches.Psychiatric/Behavioral: The patient is not nervous/anxious.Physical ExamVitals: 07/02/20 1148BP: (!) 157/100Pulse: (!) 101Resp: 20Temp: 36.5 C (97.7 F)TempSrc: OralSpO2: 99%Weight: 118.4 kg (261 lb)Height: 1.549 m (5' 1")Physical ExamVitals and nursing note reviewed.Constitutional: General: She is not in acute distress. Appearance: Normal appearance. She is well- developed. She is notill-appearing or toxic-appearing. Comments: Non acute. Non toxic. Pt appears very well and not ill or in anydiscomfort- she appears unaffected.HENT: Head: Normocephalic and atraumatic.Eyes: Pupils: Pupils are equal, round, and reactive to light.Neck: Trachea: No tracheal deviation. Comments: No Nuchal Rigidity.Cardiovascular: Rate and Rhythm: Normal rate and regular rhythm.Pulmonary: Effort: Pulmonary effort is normal. No respiratory distress.Abdominal: Comments: Pt has subjective L flank painMusculoskeletal: General: No tenderness. Normal range of motion. Cervical back: Normal range of motion and neck supple.Skin: General: Skin is warm and dry.Neurological: Mental Status: She is alert and oriented to person, place, and time. Cranial Nerves: No cranial nerve deficit. Motor: No abnormal muscle tone. Coordination: Coordination normal.Psychiatric: Mood and Affect: Mood normal.ED ProceduresProceduresED CourseDifferential diagnosis: Chronic pain, kidney stones, opiate abuseGeneral review: Laboratory data were reviewed and interpreted and theinformation was used to make clinical decisions.General review comment: urine- normal, CBC, BMP normalED course details: pts recent history of multiple ED visits and absconding givenher significant hx of opiate concerns is certainly of concern here today. Sheappears well and not in acute pain at all. Will assess baseline labs and urine,give tylenol for pain, and hold any imaging at this point. I have discussed withDr Coia1:13 PMWent to discuss non acute work up with pt, and consistent with recent visits, itappears the pt has absconded prior to workup being performed when no narcoticswere given. I have performed MSE and pt absconded so she will be classified as aLWOT after MSE- She has no phone number in system to contact.Discharge: I had a detailed discussion with the patient and/or guardianregarding the historical points, exam findings, and any diagnostic resultssupporting the discharge diagnosis. Based on the patient's history, exam, anddiagnositic evaluation, there is no indication for further emergent interventionor inpatient treatment. Verbal and written discharge instructions were provided.Patient was encouraged to return for any worsening symptoms, persistingsymptoms, or any other concerns. Patient w as provided the opportunity to askquestions.Patient follow up advised: Patient was advised to follow-up as directed indischarge instructions.ED AttestationAttestationGatElton amato PA-[id number]/ 1315 Name Value Range Interpretation Code Description Data Victoria rce(s) Supporting Document(s) ID Date Data Source [id number] 07/03/2020 04:44:00 PM EDT [facility] Release to patient->ImmediateUnit Colle t Name Value Range Interpretation Code Description Data Victoria rce(s) Supporting Document(s) URINE CULTURE [facility] ID Date Data Source [id number] 07/02/2020 12:59:00 PM EDT [facility] Release to patient->ImmediateUnit [facility] Name Value Range Interpretation Code Description Data Victoria rce(s) Supporting Document(s) eGFR BLACK [facility] For both eGFR and eGFR BLACK, the accuracy of theeGFR calculation is contingent on a stable level of serumcreatinine. The eGFR calculation is based on an IDMS-Traceablecreatinine assay and is normalized to 1.73 "meters squared"body surface area. An eGFR less than 60 may alter clinicalmanagement decisions. An eGFR greater than or equal to 60 doesnot exclude kidney disease. ID Date Data Source [id number] 07/02/2020 12:59:00 PM EDT [facility] Release to patient->ImmediateUnit [facility] Name Value Range Interpretation Code Description Data Victoria rce(s) Supporting Document(s) eGFR [facility] ID Date Data Source [id number] 07/02/2020 12:26:00 PM EDT [facility] Release to patient->ImmediateUnit [facility] Name Value Range Interpretation Code Description Data Victoria rce(s) Supporting Document(s) DIFFERENTIAL AUTOMATED Normal (applies to non-numeric res ults) [facility] ID Date Data Source [id number] 07/02/2020 02:01:00 PM EDT [facility] Name Value Range Interpretation Code Description Data Victoria rce(s) Supporting Document(s) SQUAMOUS EPITH, UR PRESENT [NEGATIVE] Abnormal (applies to n on-numeric results) [facility] CAOX YEISON, UR PRESENT [NEGATIVE] Abnormal (applies to non-numeric results) [facility] ID Date Data Source [id number] 07/02/2020 02:01:00 PM EDT [facility] Release to patient->ImmediateUnit [facility] Name Value Range Interpretation Code Description Data Victoria rce(s) Supporting Document(s) RBC, UR 0-2 Normal (applies to non-numeric resul ts) [facility] WBC, UR 0-9 Normal (applies to non-numeric resul ts) [facility] BACTERIA, UR PRESENT /[HPF] [NEGATIVE] Abnormal (applie s to non-numeric results) [facility] ID Date Data Source [id number] 07/02/2020 12:59:00 PM EDT [facility] Release to patient->ImmediateUnit Collec t Name Value Range Interpretation Code Description Data Victoria rce(s) Supporting Document(s) SODIUM 135-145 Normal (applies to non-numeric resul ts) [facility] POTASSIUM 3.5-5.1 Normal (applies to non-numeric resul ts) [facility] CHLORIDE 98-108 Normal (applies to non-numeric resul ts) [facility] CO2 22-30 Normal (applies to non-numeric results) [facility] ANION GAP 4-16 Normal (applies to non-numeric resul ts) [facility] BUN 8-20 Normal (applies to non-numeric results) [facility] CREATININE 0.5-0.9 Normal (applies to non-numeric resul ts) [facility] GLUCOSE 65-100 Normal (applies to non-numeric resul ts) [facility] CALCIUM 8.5-10.2 Normal (applies to non-numeric resul ts) [facility] ID Date Data Source [id number] 07/02/2020 12:30:00 PM EDT [facility] Release to patient->ImmediateUnit Colle t Name Value Range Interpretation Code Description Data Victoria rce(s) Supporting Document(s) COLOR, UR YELLOW Normal (applies to non-numeric resul ts) [facility] APPEARANCE, UR CLOUDY [CLEAR] Abnormal (applies to non-numeric results) [facility] GLUCOSE, UR NEG mg/dL [NEGATIVE] Normal (applies to non-numeric resu lts) [facility] KETONES, UR NEG mg/dL [NEGATIVE] Normal (applies to non-numeric resu lts) [facility] SPEC GRAVITY, UR 1.005-1.030 [facility] BLOOD, UR NEG [NEGATIVE] Normal (applies to non-numeric resul ts) [facility] PH, UR 5.0-8.0 Normal (applies to non-numeric resul ts) [facility] PROTEIN, UR NEG mg/dL [NEGATIVE] Normal (applies to non-numeric resu lts) [facility] NITRITES, UR NEG [NEGATIVE] Normal (applies to non-numeric res ults) [facility] LEUK ESTERASE, UR NEG [NEGATIVE] Normal (applies to non-numeri c results) [facility] ID Date Data Source [id number] 07/02/2020 12:26:00 PM EDT [facility] Release to patient->ImmediateUnit Collec t Name Value Range Interpretation Code Description Data Victoria rce(s) Supporting Document(s) WBC 4.0-11.0 Normal (applies to non-numeric resul ts) [facility] RBC 3.80-5.20 Normal (applies to non-numeric resul ts) [facility] HGB 12.0-16.0 Normal (applies to non-numeric resul ts) [facility] HCT 35-47 Normal (applies to non-numeric results) [facility] MCV 80-100 Normal (applies to non-numeric resul ts) [facility] MCH 26.0-34.0 Normal (applies to non-numeric resul ts) [facility] MCHC 31.0-37.5 Normal (applies to non-numeric resul ts) [facility] RDW 0.0-15.2 Above high normal [facility] PLATELET COUNT 150-450 Normal (applies to non-numeric r esults) [facility] NEUTROPHILS 45-75 Normal (applies to non-numeric resu lts) [facility] LYMPHOCYTES 15-45 Normal (applies to non-numeric resu lts) [facility] MONOCYTES 0-15 Normal (applies to non-numeric resul ts) [facility] EOSINOPHILS 0-5 Normal (applies to non-numeric resu lts) [facility] BASOPHILS 0-3 Normal (applies to non-numeric resul ts) [facility] NEUTROPHIL # 1.8-8.0 Normal (applies to non-numeric res ults) [facility] LYMPHOCYTE # 1.0-4.8 Normal (applies to non-numeric res ults) [facility] MONOCYTE # 0.1-1.0 Normal (applies to non-numeric resul ts) [facility] EOSINOPHIL # 0.0-0.6 Normal (applies to non-numeric res ults) [facility] BASOPHIL # 0.0-0.2 Normal (applies to non-numeric resul ts) [facility] ID Date Data Source [id number] 06/30/2020 08:42:10 PM EDT [facility] Note Status: FINAL (SIGNED)Full Name: TANIYA JONESBirth Date: 1985Visit ID: [id number] Record Number: [id number]: 34YSex: FemaleRoom Location: ER ROOMSBed Location: ER BD 1Date of Service: 06/20/2020 09:30Creation Date: 06/20/2020 09:30Created By: EMILY COOKSt. Mark'S Hospital Physician: FORTUNATO CONTRERASTime patient first seen: [phone] Informant: PatientHPI Chief Complaint: Left flank pain HPI duration: 2 daysHPI comments: 34-year-old female patient with a history of PE (on Lovenox) and asthma presents for evaluation of her left flank pain that began 2 days ago and has persisted. Patient denies any injury or increase in activity that may have caused this. Patient states the pain is starts in her left mid back, and radiates to her left lower abdomen. Patient denies any fevers, chills, nausea, vomiting constipation diarrhea or any urinary symptoms. She denies any radiculopathy, saddle anesthesias, bowel or bladder incontinence. Patient denies any chest pain/pressure, palpitations, shortness of breath or dyspnea. Patient's past surgical history includes a cholecystectomy and appendectomy. Patient has had kidney stones previously, and states this feels similar. Patient has taken Tylenol without relief of her symptoms.Review of SystemsAll systems reviewed and negative except as noted in HPIAll systems reviewed and negative except as noted in HPI or noted belowED Triage Note: pt c/o left flank pain radiating to right abd-previous kidney stone --on lovenox for PE 18 mos ago--denies dysuria [EMILY SANTANA 06/20/20 08:09]Past Medical/Surgical HistoryPast medical/surgical history reviewedFull problems and procedures listProblem;Associated ICD-10-CM Code;Status;OnsetAppendectomy;None Associated;Completed;UnknownAsthma;None Associated;Active;UnknownCholecystectomy;None Associated; Completed;UnknownHypercholesterolemia;None Associated;Active;UnknownHome MedicationsHome medications reviewedEnoxaparin, 120 milligram subcutaneously every 12 hours HYDROcodone-acetaminophen 5 mg-325 mg, 1 tablet orally 2 times per day PRN pain Multivitamins Tablet, 1 tablet orally daily AllergiesAllergies reviewedLast Verified By: EMILY SANTANA RN on 06/20/2020 08:10Motrin(on blood thinner), Penicillin V(Rash) Family HistoryFamily history reviewedMother (alive) 43Y Benign essential hypertension, Father 50Y ( [place] ) Social history reviewedVital SignsVital signs reviewedMaximum temperature within the last 24 hours: 97.7 FDate/time of maximum temperature: 06/20/2020 08:06Most recent vital signsBP: 123/98 06/20/2020 08:06 Pulse: 87 06/20/2020 08:06 Temp: 97.7 F 06/20/2020 08:06 Resp: 16 06/20/2020 08:06 O2 Sat: 100.0%(0 l/m)(Room Air) 06/20/2020 08:06 Calculated BMI: 50.1 06/20/2020 08:06 Admission height (inches): 61Admission weight (kgs): 119Triage Vital SignsTemp: 97.7F 06/20/2020 08:06 Pulse: 87 bpm 06/20/2020 08:06 Respirations: 16 06/20/2020 08:06 Blood Pressure: 123/98 mmHg 06/20/2020 08:06 O2Sat: 100 % 06/20/2020 08:06 Height: 61 in 06/20/2020 08:06 Weight: 119 kg 06/20/2020 08:06 Calculated BMI: 50.1 06/20/2020 08:06 Physical ExamConst: Within normal limits, no apparent distress, appears stated age, comments: Vitals within normal limits. Patient appears to be resting comfortably.Eyes: within normal limits, extraocular movements intact, PERRL, no conjunctival injection, sclera anictericHENT: Within normal limits, Normocephalic atraumatic, Tympanic membrane normal, No nasal discharge, Oral mucosa moist/clearNeck: Within normal limits, No lymphadenopathyCVS: Within normal limits, Regular rate and rhythm, No rubs/gallops/murmurs, comments: No tachycardia. Resp: Within normal limits, Clear to auscultation bilaterally, No wheezes/rales/rhonchi, comments: Breathing easily, O2 sat 100% on room air. GI: Within normal limits, Non-tender, Normal bowel sounds, No guarding/rebound/tenderness, No organomegalyGI comments: Soft, NT/ND.Musc: Within normal limits, Joints normal, Range of motion normalExtrem: Within normal limits, No clubbing/cyanosis/edemaNeuro: Within normal limits, No lateralizing deficits, comments: Strength 5 out of 5 in lower extremities bilaterally.Skin: Within normal limits, No rash, No bruisingBack: Within normal limits, No CVA tenderness, comments: No tenderness over the thoracic or lumbar spine or paravertebral musculature.Initial impression: Acute left flank pain, UTI, pyelonephritis, kidney stone, MSK painOrdersStart Date;Description;Frequency;Ordered By;Status06/20/2020;ED INITIATE ABDOMINAL PAIN PATHWAY ;Once;MYLES LEE;06/20/2020;PTT ;Once;MYLES LEE;06/20/2020;AMYLASE ;Once;MYLES LEE;06/20/2020;CBC DIFF ;Once;MYLES LEE;06/20/2020;COMPREHENSIVE PANEL ;Once;MYLES LEE;06/20/2020;LIPASE ;Once;MYLES LEE;06/20/2020;PT/INR ;Once;MYLES LEE;06/20/2020;Point of Care /URINE ;Once;MYLES LEE;06/20/2020;Point of Care URINE DIPSTICK ;Once;MYLES LEE;06/20/2020;URINALYSIS ROUTINE ;Once;EMILY COOK;06/21/2020;ED-NPO ;Meals;MYLES LEE;06/20/2020;CULTURE URINE ;Once;EMILY COOK;Laboratory resultsLab Results for the past 24 hoursOrder;Test;Value;Reference Range;Comments;Status;CollectionURINALYSIS ROUTINE;Dipstick Urine Color;LUIS M;;;Final Result ;06/20/2020 09:30:00URINALYSIS ROUTINE;Dipstick Urine Turbidity;CLOUDY;;;Final Result ;06/20/2020 09:30:00URINALYSIS ROUTINE;Dipstick Specific [place];1.025;(1.000-1.030);;Final Result ;06/20/2020 09:30:00URINALYSIS ROUTINE;Dipstick Urine pH;5.0;(5.0- 8.0);;Final Result ;06/20/2020 09:30:00URINALYSIS ROUTINE;Dipstick Urine Leucoesterase;2 ;;;Final Result ;06/20/2020 09:30:00URINALYSIS ROUTINE;Dipstick Urine Nitrate;NEGATIVE;;;Final Result ;06/20/2020 09:30:00URINALYSIS ROUTI NE;Dipstick Urine Protein;100 [ 2 ];;;Final Result ;06/20/2020 09:30:00URINALYSIS ROUTINE;Dipstick Urine Glucose;NORMAL;;;Final Result ;06/20/2020 09:30:00URINALYSIS ROUTINE;Dipstick Urine Ketone;NEGATIVE;;;Final Result ;06/20/2020 09:30:00URINALYSIS ROUTINE;Dipstick Urine Urobilinogen;NORMAL;;;Final Result ;06/20/2020 09:30:00URINALYSIS ROUTINE;Dipstick Urine Bili;NEGATIVE;;;Final Result ;06/20/2020 09:30:00URINALYSIS ROUTINE;Dipstick Urine Hgb;3 ;;;Final Result ;06/20/2020 09:30:00URINE MICROSCOPIC;Microscopic Urine WBC;5-10;;;Final Result ;06/20/2020 09:30:00URINE MICROSCOPIC;Microscopic Urine RBC; > 100;;;Final Result ;06/20/2020 09:30:00URINE MICROSCOPIC;Microscopic Urine BACT;MODERATE;;;Final Result ;06/20/2020 09:30:00URINE MICROSCOPIC;Microscopic Urine Epi;[place];;;Final Result ;06/20/2020 09:30:00AMYLASE;AMYLASE;40;(25-125 U/L);;Final Result ;06/20/2020 08:44:00CBC DIFF;WBC;5.2;(4.8-10.8 K/uL);;Final Result ;06/20/2020 08:44:00CBC DIFF;RED BLOOD CELL;4.00 L;(4.20-5.40 M/uL);;Final Result ;06/20/2020 08:44:00CBC DIFF;HEMOGLOBIN;12.2 ;(12.0-16.0 gm/dL);;Final Result ;06/20/2020 08:44:00CBC DIFF;HEMATOCRIT;35.2 L;(36.0-48.0 %);;Final Result ;06/20/2020 08:44:00CBC DIFF;MCV;87.9;(80.0-100.0 fL);;Final Result ;06/20/2020 08:44:00CBC DIFF;MCHC;34.6;(30.0-36.5 %);;Final Result ;06/20/2020 08:44:00CBC DIFF;MCH;30.4;(27.0-34.0 pg);;Final Result ;06/20/2020 08:44:00CBC DIFF;RDW;15.9 H;(11.0-15.0 %);;Final Result ;06/20/2020 08:44:00CBC DIFF;PLATELET COUNT;309;(130-450 K/uL);;Fi nal Result ;06/20/2020 08:44:00CBC DIFF;MPV;6.2;(6.0- 12.0 fL);;Final Result ;06/20/2020 08:44:00CBC DIFF;NEUTROPHIL;54;(37-80 %);;Final Result ;06/20/2020 08:44:00CBC DIFF;LYMPHOCYTE;36;(10-50 %);;Final Result ;06/20/2020 08:44:00CBC DIFF;MONOCYTE;7;(0-12 %);;Final Result ;06/20/2020 08:44:00CBC DIFF;EOSINOPHIL;2;( < =8 %);;Final Result ;06/20/2020 08:44:00CBC DIFF;BASOPHIL;0;( < =3 %);;Final Result ;06/20/2020 08:44:00CBC DIFF;DEAN#;2.8;(1.8-8.6 K/uL);;Final Result ;06/20/2020 08:44:00CBC DIFF;LYMPHOCYTE #;1.9;(0.5-5.0 K/uL);;Final Result ;06/20/2020 08:44:00CBC DIFF;MONOCYTE #;0.4;(0.0-1.3 K/uL);;Final Result ;06/20/2020 08:44:00CBC DIFF;EOSINOPHIL #;0.1;(0.0-0.9 K/uL);;Final Result ;06/20/2020 08:44:00CBC DIFF;BASOPHIL #;0.0;(0.0-0.3 K/ul);;Final Result ;06/20/2020 08:44:00COMPREHENSIVE PANEL;SODIUM;139;(136-145 mmol/L);;Final Result ;06/20/2020 08:44:00COMPREHENSIVE PANEL;POTASSIUM;3.8;(3.5-5.2 mmol/L);;Final Result ;06/20/2020 08:44:00COMPREHENSIVE PANEL;CHLORIDE;108;(100-108 mmol/L);;Final Result ;06/20/2020 08:44:00COMPREHENSIVE PANEL;CARBON DIOXIDE;24;(21-32 mmol/L);;Final Result ;06/20/2020 08:44:00COMPREHENSIVE PANEL;GLUCOSE;106 H;(70- 100 mg/dL);;Final Result ;06/20/2020 08:44:00COMPREHENSIVE PANEL;BUN;12;(7-21 mg/dL);;Final Result ;06/20/2020 08:44:00COMPREHENSIVE PANEL;Creatinine;0.7;(0.6-1.3 m g/dL);;Final Result ;06/20/2020 08:44:00COMPREHENSIVE PANEL;CALCIUM;8.8;(8.5-10.8 mg/dL);;Final Result ;06/20/2020 08:44:00COMPREHENSIVE PANEL;GFR; > 60;;;Final Result ;06/20/2020 08:44:00COMPREHENSIVE PANEL;TOTAL BILIRUBIN;0.4;(0.0- 1.2 mg/dL);;Final Result ;06/20/2020 08:44:00COMPREHENSIVE PANEL;TOTAL PROTEIN;7.3;(6.4-8.2 gm/dL);;Final Result ;06/20/2020 08:44:00COMPREHENSIVE PANEL;ALBUMIN;4.0;(3.4- 4.8 gm/dL);;Final Result ;06/20/2020 08 :44:00COMPREHENSIVE PANEL;ALK PHOS;120;(40-150 U/L);;Final Result ;06/20/2020 08:44:00COMPREHENSIVE PANEL;ALT(SGPT);48;(0-55 U/L);;Final Result ;06/20/2020 08:44:00COMPREHENSIVE PANEL;AST (SGOT);46 H;(5-37 U/L);;Final Result ;06/20/2020 08:44:00LIPASE;LIPASE;20;(8-78 U/L);;Final Result ;06/20/2020 08:44:00PT/INR;PROTIME;11.7;(9.4-12.4 sec);;Final Result ;06/20/2020 08:44:00PT/INR;INR;1.1;;;Final Result ;06/20/2020 08:44:00PTT;PTT;30.9;(25.6-36.4 sec);;Final Result ;06/20/2020 08:44:00EKG/Rhythm Strip InterpretationProgress Time 1: 0930 Progress comments 1: Patient seen and evaluated. Progress time 2: 1100 Progress comments 2: I was notified at this time that patient left the department without notifying anyone. Patient was contacted by clinical leader, and patient told him that she did not feel she wanted to wait any longer, she would just call her PMD.Diagnosis: Acute left flank pain Diagnosis level 3Disposition time: 1100 Discharge condition: StableDischarge plan: Patient left the department without notifying anyone. Disposition: homePatient did not require critical care timeMidlevel signature: Guerda MORALES signature date: 06/20/2020 18:10Physician signature: Michelle AMADO signature date: 06/28/2020 07:19 Name Value Range Interpretation Code Description Data Victoria rce(s) Supporting Document(s) ID Date Data Source [id number] 06/28/2020 11:59:00 AM [facility] Name Value Range Interpretation Code Description Data Victoria rce(s) Supporting Document(s) SODIUM 138 mmol/L 136-145 [facility] POTASSIUM 4.2 mmol/L 3.5-5.2 [facility] CHLORIDE 107 mmol/L 100-108 [facility] CO2 23 mmol/L 21-32 [facility] GLUCOSE 90 mg/dL 70-100 [facility] BUN 15 mg/dL 7-21 [facility] CREATININE 0.7 mg/dL 0.6-1.3 [facility] Normal Kidney Function or Mild Disease - GFR >OR= 60Chronic Kidney Disease - GFR 15-59Renal Failure - GFR < 15GFR not calculated on patients under 18 years of age. CALCIUM 9.0 mg/dL 8.5-10.8 [facility] GFR >60 [facility] T BILI 0.3 mg/dL 0.0-1.2 [facility] T PROTEIN 7.1 gm/dL 6.4-8.2 [facility] ALBUMIN 3.9 gm/dL 3.4-4.8 [facility] ALK PHOS 113 U/L 40-150 [facility] ALT (SGPT) 42 U/L 0-55 [facility] AST (SGOT) 39 U/L 5-37 H [facility] ID Date Data Source [id number] 06/28/2020 11:44:00 AM EDT [facility] al CBC W/DIFF STAT Name Value Range Interpretation Code Description Data Victoria rce(s) Supporting Document(s) WBC 6.2 K/uL 4.8-10.8 [facility] RBC 4.04 M/uL 4.20-5.40 L [facility] HEMOGLOBIN 11.7 gm/dL 12.0-16.0 L [facility] HEMATOCRIT 34.6 % 36.0-48.0 L [facility] MCV 85.8 fL 80.0-100.0 [facility] MCHC 33.7 % 30.0-36.5 [facility] MCH 28.9 pg 27.0-34.0 [facility] RDW 15.0 % 11.0-15.0 [facility] PLATELET 334 K/uL 130-450 [facility] MPV 6.6 fL 6.0-12.0 [facility] NE% 59 % 37-80 [facility] LY% 32 % 10-50 [facility] MO% 7 % 0-12 [facility] Eosinophils [#/volume] in Blood by Automated count 2 % <=8 [facility] BA% 0 % <=3 [facility] NE# 3.7 K/uL 1.8-8.6 [facility] LYMPH# 2.0 K/uL 0.5-5.0 [facility] MONO# 0.4 K/uL 0.0-1.3 [facility] EOS# 0.1 K/uL 0.0-0.9 [facility] BASO# 0.0 K/ul 0.0-0.3 [facility] ID Date Data Source [id number] 06/30/2020 01:24:00 PM EDT [facility] al CULTURE OBSERVATIONS 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 [facility] RBC >100 /HPF NONE SEEN ! [facility] [employer] has definedMicroscopic Hematuria as 3 or more RBC per highpowered field from a single positive urinalysis withmicroscopy. BACTERIA FEW /HPF NONE SEEN ! [facility] EPITHELIAL CELLS MODERATE /HPF NONE SEEN ! [facility] spital ID Date Data Source [id number] 06/28/2020 11:34:00 AM EDT [facility] al Name Value Range Interpretation Code Description Data Victoria rce(s) Supporting Document(s) COLOR ORANGE [facility] APPEARANCE TURBID CLEAR ! [facility] SPECIFIC GRAVITY 1.015 1.000-1.030 [facility] ital pH 5.0 5.0-8.0 [facility] LEUKOCYTES 2+ NEGATIVE ! [facility] NITRATE POSITIVE NEGATIVE ! [facility] PROTEIN 100 [ 2+] mg/dL NEGATIVE ! [facility] l GLUCOSE NORMAL mg/dL NORMAL [facility] KETONE NEGATIVE mg/dL NEGATIVE [facility] UROBILINOGEN NORMAL mg/dL NORMAL [facility] l BILIRUBIN NEGATIVE mg/dL NEGATIVE [facility] HEMOGLOBIN 3+ NEGATIVE ! [facility] ID Date Data Source [id number] 06/28/2020 12:18:44 PM EDT [facility] al CT - ABD PELVIS NO CONTRAST06/28/2020 11: 51 AMCT ABDOMEN AND PELVIS WITHOUT CONTRASTCLINICAL INFORMATION: CT - ABD PELVIS NO CONTRAST -- Left flank painCOMPARISON: 03/03/2020PROCEDURE: Contiguous images were obtained through the abdomen and pelviswithout intravenous contrast. Automated exposure control, adjustment of the mAand/or kV according to patient size, and/or iterative reconstruction techniqueswere utilized for radiation dose optimization.FINDINGS:Lung Bases: Normal.Stomach: Normal.Liver: Dense fatty liver.Spleen: Homogenous. No focal lesions identified.Adrenal Glands: Normal.Gallbladder and Bile Ducts: Gallbladder surgical clip. CBD is unremarkable.Pancreas: Normal.Right Kidney: Normal.Left Kidney: Normal.Vasculature: No significant atherosclerotic calcification. Retroaortic leftrenal vein.Small Bowel: The small bowel is not distended.Colon: There is sigmoid diverticulosis. No focal colonic wall thickening ispresent to suggest active diverticulitis. The appendix is not clearlyvisualized. There is no focal right lower quadrant inflammation. Surgical clipsseen in the right lower quadrant.Lymph Nodes: No adenopathy by imaging size criteria.Bladder: Normal.Uterus and Adnexa: Normal.Soft Tissues: Small umbilical hernia with fat content and fat strandingBones: Normal.Miscellaneous: No free fluid or ascites.IMPRESSION:Small fat-containing umbilical hernia with fat stranding clinical correlationis suggested.Dense fatty liver.END OF IMPRESSIONM[facility] sub[facility] and[facility] then provides those same results to [facility]. Allresults are available to [facility] and [facility] provider portalusers. [facility] DICOM images are available to the[facility] provider portal users only. [facility] DICOMimages are not available to the [facility] provider portal users. There isno current [facility] cross-IO functionality allowing images to be available [facility] to [facility] connectivity.Electronically signed By: Desmond Calhoun M.D.Read By: DESMOND MIRDate: 06/28/2020 12:15 Name Value Range Interpretation Code Description Data Victoria rce(s) Supporting Document(s) ID Date Data Source [id number] 06/21/2020 05:36:10 PM EDT [facility] Name Value Range Interpretation Code Description Data Victoria rce(s) Supporting Document(s) ED Provider Notes [facility] BKBKAe1dGcDZLbSt85/WJNbnOEUkd0NrOSoaNMv1TNmqROBmD6UwPGY0pK0kGAI4ZBwXZgDhXsVkUCU3 lbm [file] AgICAgICAgICAgICAgICAgICAgICAgICAgICAgICAg ICAgICAgICAgICAgICAgICAgICAgICAgICAgICAgDQogICAgICAgICAgICAgICAgICAgICAgICAgICAg ICAgICAgICAgICAgICAgICAgICAgICAgICAgICAgICAgICAgICAgICAgICAgICAgICAgICAgICAgICAg ICAgICAgICAgICAgDQogICAgICAgICAgICAgICAgIC AgICAgICAgICAgICAgICAgICAgICAgICAgICAgICAgICAgICAgICAgICAgICAgICAgICAgICAgICAgIC AgICAgICAgICAgICAgICAgICAgICAgDQogICAgICAgICAgICAgICAgICAgICAgICAgICAgICAgICAgIC AgICAgICAgICAgICAgICAgICAgICAgICAgICAgICAg ICAgICAgICAgICAgICAgICAgICAgICAgICAgICAgICAgDQogICAgICAgICAgICAgICAgICAgICAgICAg ICAgICAgICAgICAgICAgICAgICAgICAgICAgICAgICAgICAgICAgICAgICAgICAgICAgICAgICAgICAg ICAgICAgICAgICAgICAgDQogICAgICAgICAgICAgIC AgICAgICAgICAgICAgICAgICAgICAgICAgICAgICAgICAgICAgICAgICAgICAgICAgICAgICAgICAgIC AgICAgICAgICAgICAgICAgICAgICAgICAgDQogICAgICAgICAgICAgICAgICAgICAgICAgICAgICAgIC AgICAgICAgICAgICAgICAgICAgICAgICAgICAgICAg ICAgICAgICAgICAgICAgICAgICAgICAgICAgICAgICAgICAgDQogICAgICAgICAgICAgICAgICAgICAg ICAgICAgICAgICAgICAgICAgICAgICAgICAgICAgICAgICAgICAgICAgICAgICAgICAgICAgICAgICAg ICAgICAgICAgICAgICAgICAgDQogICAgICAgICAgIC AgICAgICAgICAgICAgICAgICAgICAgICAgICAgICAgICAgICAgICAgICAgICAgICAgICAgICAgICAgIC AgICAgICAgICAgICAgICAgICAgICAgICAgICAgDQogICAgICAgICAgICAgICAgICAgICAgICAgICAgIC AgICAgICAgICAgICAgICAgICAgICAgICAgICAgICAg QOGkFOToYHSsZRHvYNQjONGqHAUpPHIhEUQnRNMbPXBsFCFcCSEsRAi1D7kxPBGyZKNnNP9oMNt7Ra1+ VWkRNmKzAPT9zsWxlA6DEM6gu7DiCTzlBPFjw7EtODr0XN2GSVTkIQrtUS5HTUhcom9DDCBnIRFiiXZB f1xzScSfPZY0QFNrVjbuNG7AHLSvA5kqrzViBPJoEP FGZZhjLDKXCYfnAEKXUZBvJRWxToGzKOflOD3Yr2HofUR4OFz+Ho8IZG1mq1QpCDihTZDcFM7kbj8DPJ gRLaHpJ3EswyX3FGA8WHMwCj4LGNEwJPEgsWYlXKBwJDVUYhTcQ7AbbA60ZAYSJi6+DQplbmRvYmoNCj F9YPLxr3GdQEe4GE8KHSVgGFa3hJTgDWDlKGIealil LJQtPb13IYVjGmahLTXjiJCfYA7sQ9Iavalgbt1kFR8ATXO7HPJsTK4rYNFuEJEqKaS2QZQACR9WDRPh VIGotVDwLDFtVVTUQZ4JKBvcWBJ1OogpalHfoIMvBGetOS0OIKFmuyPtOsVbHWBWMDn+Uc5DNM5ne6Vf ECbaAtZjUO8qqy7PVKmXEtKrE8E0dDMbR4U6NWniFd 2MWKLsCNBwVyHaRPLSOZoxSG1JEF8hzuI9NU0QsXLaAIWgCWGcuWAxKUv2F21bcVMqKGdoUV4EUGY+Pi A+Vk4AWVZkJZHjRFPzKjAyDTSZIqAkP5BmB1VFs8YbC2LhVU88oMkhphKwBRfcUU4CMZ3cCVHjFDDBZU 9RcTXjvR6hzgNkZALjNWKOOkReG15dqEEeNDGrHFCk TTHySx0UOXSzM0LiwhNtvEacdvQuKMEbKIHQUI2XASvzzvZuxMIycDzzRC42zZfnKK9ZWp8STkVtZG9c jp1EkBAwSt3PSTElFz3KIFEdOYFgLNHsWQG0LDWxFoUvBEisPXVsFBBrPXF7HGMuSCEbWG7RFbYyXRUj PfL9BiomUSOoNJYyat6FEJBfQSDcJqSbXITwIQLyNV VtRWozEBRrJRWlACG8YGQxGAItPB0BTzRiWFDsXMB3ESQfINDfKKBtuo9ETAQzAWUeIve2LNEqCCDdHJ AlPDhsKAViOPG7AxE4LSWqWHAgEM1VGcBfJOQgXHP9EuYkPGKcDCTiex4XNFYuIIFiILNmKzIsFPHwES FbRDmzBHPzQYG7SQKnYMDcDIRiWF9SQaXgJLXuGNC2 KKGxTWTqPYPtgr4EWFGhSPWyOWS6YnFcXAWeTTBwKNecDIAuNOVmIoVyHXBgQFSlRJ1ZOrUeENIyJBD9 YPEtARJoYBJylm2DTFDeLOPpAwM6SGArEOHgMBHsKUduHSCmRPRqAIVsXTUyRZYzVB5FThJzCEQdNZBq FFghFLKdBVYztk5XRSJqOCCiLhB7HGTfTICyRDIjWZ lgEAChZEF9LcL1HFDeGTNbXW6QZvLsOOMlUQS4BENoXRMvLTUhbi3FIJAiEAVyGMqfTQBqYBSuUTCtAM ebQACyNAQ4Frx5HGNlXRIsMM6ASjCoCQXlYZY6ZRQiQXZjWMVezo2SLQZxXXAhLwU0HZTtVWAoLFNuRE emWWZhLYC1GLI4WNGyFSHxVY8NKfGgXUIqBMogKVAa JXJrFGYpnk5DDPUuLDUhSjDyWMYtQSDjZFAcDQprMUYtYEX0DAKwIAMmEYRrFC0NWaHrYQNrJfEsEzCy EXFtBDUnlr1GLLVnPRHlOKWxRIUbQBWgQOUbISooKZIfSJAsPMS0HFHpMKEdRV8OVpEnQNXbSkC7ZVDs DRIiBGDibq3TILNpLMYnUOL4GTUgKOQjBJTaRQnmIC PlVYGbFeIoPOSaOEGgSV5FDiByNRRoEyF0WZRmBTMkRWQqwo8IPYVfDICiLkf9QgNtRVIqFUHtOPw5kz HdrLOjSSm9XR7RX6NoinNrLrbZIv3Ko278VBK2QCPdEs2IT9wxIs7aLFWsFZUUWv8XKBh1KyVqRHD9Ka JoWFM3L7SuVtYbAtIsJvFxE6CuPIMxOyx+IRk0ZBS9 Yxn4CWWiCfG9L2NyWgQ0BjMqYYE4VsFaLjXfKW6uDYLQTb2+DQpzdGFydHhyZWYNCjMzMDkwDQolJUVP Rg0K ID Date Data Source [id number] 06/21/2020 12:26:39 PM EDT [facility] Patient: TANIYA FIELD : 1985 M RN: [phone] [facility]OL (A/P WO CONTRAST) Provider: TOBY ADORNOINICAL HISTORY: Left flank pain for 3 days with nausea and hematuria. Historyof kidney stones. Intensity: Moderate. Initial encounter.TECHNIQUE: Axial imaging of the abdomen and pelvis was performed from above thekidneys to the symphysis pubis without gastrointestinal or intravenous contrastas a stone protocol examination. Sagittal and coronal reformatted images wereobtained. CT imaging was performed utilizing dose reduction techniques includingautomated exposure control and iterative reconstruction technique. COMPARISON: 04/08/2019.CT ABDOMEN: There is low- attenuation of the visualized portion of the liverrelative to the spleen, as seen previously in keeping with fatty infiltrationwith elongation of the right lobe liver. Status post cholecystectomy withsurgical clips in the gallbladder fossa. No intrahepatic or extra hepaticbiliary dilatation is seen. The study is somewhat limited by motion artifact.Visualized portions of the spleen, pancreas, and adrenal glands are withinnormal limits. No hydronephrosis is seen on either side. No definite renal orureteral calculi are seen. The enlarged right lobe of the liver produces somerotational abnormality of the right kidney. No aneurysmal dilatation of theabdominal aorta or enlarged para-aortic lymph nodes are seen. There is aretroaortic left renal vein, developmental variation. There is a tinyfat-containing umbilical hernia. No free fluid is in the upper abdomen.Evaluation of the gastrointestinal tract is limited without gastrointestinalcontrast administration. No gas dilated small bowel loops are seen.CT PELVIS: Surgical clips are seen along the medial aspect of the cecum whichmay be due to prior appendectomy. Bladder is seen to contain only small amounturine. No bladder calculi are seen. There are tiny phleboliths seen in thepelvis, unchanged. No enlarged inguinal or pelvic lymph nodes are seen. Nopelvic mass is noted. Occasional sigmoid diverticula are seen without strandingin the pericolic fat to suggest diverticulitis. A single high densi tydiverticulum is seen in the distal transverse colon without adjacent pericolicstranding. No bony destructive lesion is seen. Mild spurring along the anteriormargins of both SI joints is noted. There is bilateral facet hypertrophy L5-S1.IMPRESSION: EVALUATION IS SOMEWHAT LIMITED BY MOTION ARTIFACT.NO RENAL OR URETERAL CALCULI OR HYDROURETERONEPHROSIS NOTED.THERE IS FATTY INFILTRATION OF THE SUSPECTED ENLARGED LIVER FOR WHICHCORRELATION WITH THE PATIENT'S LIVER FUNCTION TEST WOULD BE OF HELP.THE LEFT ADNEXAL CYST SEEN PREVIOUSLY IS NO LONGER DEMONSTRATED.PATIENT IS STATUS POST CHOLECYSTECTOMY AND AP PENDECTOMY.COLONIC DIVERTICULOSIS WITHOUT DIVERTICULITIS.OTHER FINDINGS ABOVE.FOR FURTHER EVALUATION, GIVEN THE HISTORY OF HEMATURIA, CT IVU COULD BECONSIDERED.Electronically Signed by Elias Barahona MD 06/21/2020 12:26 PM Name Value Range Interpretation Code Description Data Victoria rce(s) Supporting Document(s) ID Date Data Source [id number] 06/22/2020 07:16:00 AM EDT [facility] Name Value Range Interpretation Code Description Data [facility] rce(s) Supporting Document(s) Culture Result 10,000-20,000 colonies/ml Mixed urethral radha [facility] The above 1 analytes were performed by [facility] [email or web address], ,[place] [address] ID Date Data Source [id number] 06/21/2020 12:46:00 PM EDT [facility] Name Value Range Interpretation Code Description Data [facility] rce(s) Supporting Document(s) AST 49 IU/L 15-37 Above high normal [facility] Sulfasalazine and sulfapyridine have the potential to falsely depressAspartate Aminotransferase results. Baseline values before medication administration are recommended. ALT 54 IU/L 13-56 Normal (applies to non-numeric resul ts) [facility] Sulfasalazine and sulfapyridine have the potential to falsely depressAlanine Aminotransferase results. Baseline values before medication administration are recommended. Alkaline Phosphatase 111 mIU/ml 50-136 Normal (applies to n on-numeric results) [facility] Total Bilirubin 0.30 mg/dl 0.20-1.00 Normal (applies to non-numeric results) [facility] Blood Urea Nitrogen 13 mg/dl 7-18 Normal (applies to non-nume [place] results) [facility] Creatinine 0.73 mg/dl 0.51-0.95 Normal (applies to non-numeric resul ts) [facility] N-Acetylcysteine (NAC) and Metamizole noriega ve the potential to falselydepress Creatinine results. Baseline values before medication adminstration are recommended. Patients undergoing treatment with phenindione will have falselydepressed results. Patients on phenindione therapy should be tested with an alternativeCREA method.Toxic levels of acetaminophen may lead to falsely depressed results forpatient samples. Glomerular Filtration Rate 90.00 mL/min/1.73m2 [facility] GFR Reference Ranges:Normal Function or Mild Renal Disease,if clinically at risk:>or= 60Moderately decreased:30 - 59Severely decreased:15 - 29Renal Failure:<15 Please note that the MDRD equation requires an additional adjustment forAfrican-Americans (multiply the GFR result by 1.210).Glomarular Filtration Rate (GFR) is estimated based on the MDRDequation, which assumes a steady state for creatinine (Jayda Int Med 139/2 137-149, 2003), as recommended by the NationalKidney Disease Education Program in conjunction with the National Institutes of Health and the National KidneyFoundation. The Heber method used in calculating this result is traceable to IDMS standards. Glucose 99 mg/dl 70-110 Normal (applies to non-numeric resul ts) [facility] Sulfasalazine has the potential to false ly depress Glucose results. Sulfapyridine has the potential to falsely elevate Glucose results. Baseline values before medication administration are recommended. Calcium 8.8 mg/dl 8.5-10.1 Normal (applies to non-numeric resul ts) [facility] Total Protein 7.3 g/dl 6.4-8.2 Normal (applies to non-numeric re sults) [facility] Albumin 3.4 g/dl 3.4-5.0 Normal (applies to non-numeric resul ts) [facility] Sodium 140 mEq/L 136-145 Normal (applies to non-numeric resul ts) [facility] Potassium 3.5 mEq/L 3.5-5.1 Normal (applies to non-numeric resul ts) [facility] Chloride 109.0 mEq/L 98.0-107.0 Above high normal [facility] Carbon Dioxide 26.3 mMol/L 21.0-32.0 Normal (applies to non-numeric results) [facility] Anion Gap 8.2 7.0-15.0 Normal (applies to non-numeric resul ts) [facility] The above 16 analytes were performed by [facility] [id number] [place], [place] [address]t#: [id number],[place] [address] ID Date Data Source [id number] 06/21/2020 12:46:00 PM EDT [facility] Name Value Range Interpretation Code Description Data Victoria rce(s) Supporting Document(s) Quantative HCG <1 mIU/ml 0-3 Normal (applies to non-numeric r esults) [facility] HCG Reference Ranges by Gestation:Nonpre gnancy0 - 3.0mIU/mL0.2 - 1 week after conception5 - 50mIU/mL1 - 2 weeks after eiykskblnd52 - 500mIU/mL2 - 3 weeks after - 5000mIU/mL3 - 4 weeks after fdnclwnzol611 - 73306nUR/mL4 - 5 weeks after ibzykfdbcf2816 - 39115dAA/mL5 - 6 weeks after lqozegggxe24335 - 30776zWT/mL6 - 8 weeks after fvuzdaiofb51299 - 601396mDN/mL2-3 months after kdxcziovnn40863 - 805347sYY/mL The above 1 analytes were performed by [facility] [id number] [place] [address],[facility] [id number],[place] [address] ID Date Data Source [id number] 06/21/2020 12:14:00 PM EDT [facility] Name Value Range Interpretation Code Description Data Victoria rce(s) Supporting Document(s) Urine Color Dark-Yellow Light-Yellow,Yellow Abnormal (ap plies to non-numeric results) [facility] Urine Appearance CLOUDY CLEAR Abnormal (applies to non-numer ic results) [facility] Urine Specific [place] 1.025 1.015-1.025 Normal (a pplies to non-numeric results) [facility] Urine pH 6.0 5.0-7.0 Normal (applies to non-numeric resul ts) [facility] Urine Protein 1+ NEG Abnormal (applies to non-numeric results) [facility] Urine Glucose NEG NEG Normal (applies to non-numeric re sults) [facility] Urine Ketone NEG NEG Normal (applies to non-numeric res ults) [facility] Urine Bilirubin NEG NEG Normal (applies to non-numeric results) [facility] Urine Blood 3+ NEG Abnormal (applies to non-numeric re sults) [facility] Urine Urobilinogen <2.0 <0.2,1.0,<2.0,0.2 Normal (janet lies to non-numeric results) [facility] Urine Leukocyte Esterase 2+ NEG Abnormal (applies to n on-numeric results) [facility] Urine Nitrite NEG NEG Normal (applies to non-numeric re sults) [facility] Urine WBC 9 /hpf 0-2 Above high normal [facility] Urine RBC >180 /hpf 0-2 Above high normal [facility] Urine Squamous Epithelial Cells 15 /hpf 0-0 Abnormal (applies to non-numeric results) [facility] Mucous SLIGHT /lpf NEG,[none] Abnormal (applies to non-numeric re sults) [facility] The above 16 analytes were performed by [facility] [id number] [place] [address],[facility] [id number],[place] [address] ID Date Data Source [id number] 06/21/2020 12:08:00 PM EDT [facility] Name Value Range Interpretation Code Description Data Victoria rce(s) Supporting Document(s) WBC 5.56 x1000/ul 4.80-10.00 Normal (applies to non-numeric re sults) [facility] RBC 4.09 x1Mil/ul 4.20-5.40 Below low normal [facility] Hemoglobin 11.4 g/dl 12.0-16.0 Below low normal [facility] Hematocrit 35.9 % 37.0-47.0 Below low normal [facility] MCV 87.8 fL 81.0-99.0 Normal (applies to non-numeric resul ts) [facility] MCH 27.9 pg 27.0-31.0 Normal (applies to non-numeric resul ts) [facility] MCHC 31.8 g/dl 32.2-37.0 Below low normal [facility] RDW 15.5 % 11.5-14.5 Above high normal [facility] Platelet Count 372 x1000/ul 130-400 Normal (applies to non-numeric results) [facility] MPV 9.4 fL 9.4-12.4 Normal (applies to non-numeric resul ts) [facility] Neutrophils 54.0 % 40.0-74.0 Normal (applies to non-numeric resu lts) [facility] Lymphocytes 34.9 % 19.0-48.0 Normal (applies to non-numeric resu lts) [facility] Monocytes 8.6 % 3.4-9.0 Normal (applies to non-numeric resul ts) [facility] Eosinophils 1.6 % 0.0-7.0 Normal (applies to non-numeric resu lts) [facility] Basophils 0.4 % 0.0-2.0 Normal (applies to non-numeric resul ts) [facility] Immature Granulocytes 0.5 % 0.0-0.5 Normal (applies to non-nu meric results) [facility] Nucleated RBCs 0.00 % 0.00-0.20 Normal (applies to non-numeric r esults) [facility] Abs. Neutrophils 3.00 x1000/ul 1.92-8.31 Normal (applies to non-numeric results) [facility] Abs. Lymphocyte 1.94 x1000/ul 1.20-3.70 Normal (applies to non-n umeric results) [facility] Abs. Monocytes 0.48 x1000/ul 0.14-0.97 Normal (applies to non-nu meric results) [facility] Abs. Eosinophils 0.09 x1000/ul 0.00-0.76 Normal (applie s to non-numeric results) [facility] Abs. Basophils 0.02 x1000/ul 0.00-0.22 Normal (applies to non-n umeric results) [facility] Abs. Immature Gran. 0.03 x1000/ul 0.00-0.02 Above high normal [facility] Abs. Nucleated RBCs 0.00 x1000/ul 0.00-0.02 Normal (appl ies to non-numeric results) [facility] The above 24 analytes were performed by [facility] [id number] [place] [address]#: [id number],[place] [address] ID Date Data Source [id number] 06/21/2020 10:39:52 AM EDT [facility] Name Value Range Interpretation Code Description Data Victoria rce(s) Supporting Document(s) ED Triage Notes [facility] [id number]/[id number]6MWeFQlFgClSgHBG0 lbm [file] [id number]== ID Date Data Source [id number] 06/20/2020 11:44:47 AM EDT [facility], rule out ureteral calcu li, hydronephrosis06/20/2020 10:44 AMRENAL ULTRASOUNDCLINICAL INFORMATION: Left flank pain, rule out ureteral calculi,hydronephrosis -- Left flank painCOMPARISON: 03/06/2020TECHNIQUE: Sonographic evaluation of the kidneys and bladder was performedusing grayscale ultrasound.FINDINGS:Right Kidney: Measures 9.4 cm.Parenchyma: Normal homogeneous echotexture.Hydronephrosis: None.Calculi: None.Focal Lesions: None.Left Kidney: Measures 10 cm.Parenchyma: Normal homogeneous echotexture.Hydronephrosis: None.Calculi: None.Focal Lesions: None.Aorta: Non-aneurysmal.Inferior Vena Cava: Patent.Bladder: No discrete bladder wall thickening.Jets: Bilateral ureteral jets are documented.Prevoid Volume: Not measured.Postvoid Residual Volume: Not measured.Miscellaneous: None.IMPRESSION:Normal renal ultrasound.END OF IM[facility]IONM[facility] submits [facility] and[facility] then provides those same results to [facility]. Allresults are available to [facility] and [facility] provider portalusers. [facility] DICOM images are available to the[facility] provider portal users only. [facility] DICOMimages are not available to the [facility] provider portal users. There isno current [facility] [[email or web address]]-[facility] functionality allowing images to be available [facility] to [facility] connectivity.Electronically signed By: Desmond Calhoun M.D.Read By: DESMOND CALHOUNDate: 06/20/2020 11:41 Name Value Range Interpretation Code Description Data Victoria rce(s) Supporting Document(s) ID Date Data Source [id number] 06/20/2020 09:39:13 AM EDT [facility] Note Status: FINAL (SIGNED)Full Name: Kade JONES Date: 1985Visit ID: [id number] Record Number: [id number]: 34YSex: FemaleRoom Location: ER ROOMSBed Location: ER 17Date of Service: 04/30/2020 07:27Creation Date: 04/30/2020 07:27Created By: Manish ELDER Physician: FORTUNATO CONTRERASTime patient first seen: 724 HPI Chief Complaint: Patient is a 34-year-old female presents ER right flank pain. States pain is been persistent for months however over the last 2 to 3 days the pain is become acutely worse. She denies any nausea vomiting, diarrhea. She denies any chest pain or shortness of breath. Pain is persistent in a bandlike distribution over the right mid quadrant. Pain is not worsened or exacerbated by any movement. Scheduled now to see GI. She has a history of pulmonary embolism and is maintained on Lovenox.Review of SystemsAll systems reviewed and negative except as noted in HPIED Triage Note: c/o rlq pain x 3 days. Denies n/v/d, hematuria, urinary sympt oms. [NANETTE REMY 04/30/20 07:14]Past Medical/Surgical HistoryPast medical/surgical history reviewedFull problems and procedures listProblem;Associated ICD-10-CM Code;Status;OnsetAppendectomy;None Assoc iated;Completed;UnknownAsthma;None Associated;Active;UnknownCholecystectomy;None Associated;Completed;UnknownHypercholesterolemia;None Associated;Active;UnknownPast medical/surgical history comments: Pulmonary embolismHome MedicationsHome medications reviewedbusPIRone, 10 milligram orally 2 times per day Enoxaparin, 120 milligram subcutaneously every 12 hours hydrOXYzine HCL, 50 to 100 milligram orally every day at bedtime PRN Levocetirizine, 5 milligram orally daily Mirtazapine, 15 milligram orally daily Multivitamins Tablet, 1 tablet orally daily tiZANidine, 4 milligram orally 3 times per day PRN Venlafaxine, 37.5 milligram orally daily AllergiesAllergies reviewedLast Verified By: NANETTE REMY RN on 04/30/2020 07:15Motrin(on blood thinner), Penicillin V(Rash) Family HistoryFamily history reviewedMother (alive) 43Y Benign essential hypertension, Father 50Y ( [place] ) Social history reviewedVital SignsVital signs reviewedMaximum temperature within the last 24 hours: 96.9 FDate/time of maximum temperature: 04/30/2020 07:12Most recent vital signsBP: 144/79 04/30/2020 07:12 Pulse: 80 04/30/2020 07:12 Temp: 96.9 F 04/30/2020 07:12 Resp: 17 04/30/2020 07:12 O2 Sat: 100.0%(Room Air) 04/30/2020 07:12 Calculated BMI: 50.5 04/30/2020 07:12 Admission height (inches): 61Admission weight (kgs): 120Triage Vital SignsTemp: 96.9F 04/30/2020 07:12 Pulse: 80 bpm 04/30/2020 07:12 Respirations: 17 04/30/2020 07:12 Blood Pressure: 144/79 mmHg 04/30/2020 07:12 O2Sat: 100 % 04/30/2020 07:12 Height: 61 in 04/30/2020 07:12 Weight: 120 kg 04/30/2020 07:12 Calculated BMI: 50.5 04/30/2020 07:12 Physical ExamConstcomments: General: NAD, calm, cooperative, KIGm5Tslolli impression: Right sided flank pain OrdersStart Date;Description;Frequency;Ordered By;Status04/30/2020;CBC DIFF ;Once;SIERRA ELDER;Today04/30/2020;COMPREHENSIVE PANEL ;Once;SIERRA ELDER;Today04/30/2020;Point of Care /URINE ;Once;SIERRA ELDER;Today04/30/2020;Point of Care URINE DIPSTICK ;Once;SIERRA ELDER;Today04/30/2020;CULTURE URINE ;Once;SONIA BAKER;Today04/30/2020;URINALYSIS ROUTINE ;Once;SONIA BAKER;Today04/30/2020;URINE MICROSCOPIC ;Once;SONIA BAKER;Today04/30/2020;LIDOCAINE PATCH 5 % 1 PATCH TOP ;ONE TIME ONLY;SIERRA ELDER;Active04/30/2020;OXYCODONE-ACETAMINOPHEN 5-325 MG 1 TAB ORAL ;ED - ONE TIME ONLY;SIERRA ELDER;Active04/30/2020;REMOVE LIDOCAINE PATCH REMOVE PATCH MISC ;AT BEDTIME;ELDER, SIRERA;FutureLaboratory resultsLab Results for the past 24 hoursOrder;Test;Value;Reference Range;Comments;Status;CollectionCBC DIFF;WBC;7.3;(4.8-10.8 K/uL);;Final Result ; 07:50:00CBC DIFF;RED BLOOD CELL;4.01 L;(4.20-5.40 M/uL);;Final Result ;04/30/2020 07:50:00CBC DIFF;HEMOGLOBIN;11.6 L;(12.0-16.0 gm/dL);;Final Result ;04/30/2020 07:50:00CBC DIFF;HEMATOCRIT;34.7 L;(36.0-48.0 %);;Final Result ;04/30/2020 07:50:00CBC DIFF;MCV;86.4;(80.0-100.0 fL);;Final Result ;04/30/2020 07:50:00CBC DIFF;MCHC;33.4;(30.0-36.5 %);;Final Result ;04/30/2020 07:50:00CBC DIFF;MCH;28.9;(27.0-34.0 pg);;Final Result ;04/30/2020 07:50:00CBC DIFF;RDW;13.5;(11.0-15.0 %);;Final Result ;04/30/2020 07:50:00CBC DIFF;PLATELET COUNT;295;(130-450 K/uL);;Final Result ;04/30/2020 07:50:00CBC DIFF;MPV;6.8;(6.0-12.0 fL);;Final Result ;04/30/2020 07:50:00CBC DIFF;NEUTROPHIL;60;(37-80 %);;Final Result ;04/30/2020 07:50:00CBC DIFF;LYMPHO CYTE;30;(10-50 %);;Final Result ;04/30/2020 07:50:00CBC DIFF;MONOCYTE;7;(0-12 %);;Final Result ;04/30/2020 07:50:00CBC DIFF;EOSINOPHIL;2;( < =8 %);;Final Result ;04/30/2020 07:50:00CBC DIFF;BASOPHIL;0;( < =3 %);;Final Result ;04/30/2020 07:50:00CBC DIFF;DEAN#;4.4;(1.8-8.6 K/uL);;Final Result ;04/30/2020 07:50:00CBC DIFF;LYMPHOCYTE #;2.2;(0.5-5.0 K/uL);;Final Result ;04/30/2020 07:50:00CBC DIFF;MONOCYTE #;0.5;(0.0-1.3 K/uL);;Final Result ;04/30/2020 07:50:00CBC DIFF;EOSINOPHIL #;0.2;(0.0-0.9 K/uL);;Final Result ;04/30/2020 07:50:00CBC DIFF;BASOPHIL #;0.0;(0.0-0.3 K/ul);;Final Result ;04/30/2020 07:50:00COMPREHENSIVE PANEL;SODIUM;139;(136-145 mmol/L);;Final Result ;04/30/2020 07:50:00COMPREHENSIVE PANEL;POTASSIUM;4.3;(3.5-5.2 mmol/L);;Final Result ;04/30/2020 07:50:00COMPREHENSIVE PANEL;CHLORIDE;107;(100-108 mmol/L);;Final Result ;04/30/2020 07:50:00COMPREHENSIVE PANEL;CARBON DIOXIDE;24;(21-32 mmol/L);;Final Result ;04/30/2020 07:50:00COMPREHENSIVE PANEL;GLUCOSE;98;(70-100 mg/dL);;Final Result ;04/30/2020 07:50:00COMPREHENSIVE PANEL;BUN;13;(7-21 mg/dL);;Final Result ;04/30/2020 07:50:00COMPREHENSIVE PANEL;Creatinine;0.9;(0.6-1.3 mg/dL);;Final Result ;04/30/2020 07:50:00COMPREHENSIVE PANEL;CALCIUM;8.8;(8.5-10.8 mg/dL);;Final Result ;04/30/2020 07:50:00COMPREHENSIVE PANEL;GFR; > 60;;;Final Result ;04/30/2020 07:50:00COMPREHENSIVE PANEL;TOTAL BILIRUBIN;0.3;(0.0-1.2 mg/dL);;Final Result ;04/30/2020 07:50:00COMPREHENSIVE PANEL;TOTAL PROTEIN;7.5;(6.4-8.2 gm/dL);;Final Result ;04/30/2020 07:50:00CO MPREHENSIVE PANEL;ALBUMIN;3.9;(3.4-4.8 gm/dL);;Final Result ;04/30/2020 07:50:00COMPREHENSIVE PANEL;ALK PHOS;109;(40-150 U/L);;Final Result ;04/30/2020 07:50:00COMPREHENSIVE PANEL;ALT(SGPT);51;(0-55 U/L);;Final Result ;04/30/2020 07:50:00COMPREHENSIVE PANEL;AST (SGOT);50 H;(5-37 U/L);;Final Result ;04/30/2020 07:50:00URINALYSIS ROUTINE;Dipstick Urine Color;LUIS M;;;Final Result ;04/30/2020 00:01:00URINALYSIS ROUTINE;Dipstick Urine Turbidity;HAZY;;;Final Result ;04/30/2020 00:01:00URINALYSIS ROUTINE;Dipstick Specific [place];1.025;(1.000-1.030);;Final Result ;04/30/2020 00:01:00URINALYSIS ROUTINE;Dipstick Urine pH;5.0;(5.0-8.0);;Final Result ;04/30/2020 00:01:00URINALYSIS ROUTINE;Dipstick Urine Leucoesterase;1 ;;;Final Result ;04/30/2020 00:01:00URINALYSIS ROUTINE;Dipstick Urine Nitrate;NEGATIVE;;;Final Result ;04/30/2020 00:01:00URINALYSIS ROUTINE;Dipstick Urine Protein;30 [ 1 ];;;Final Result ;04/30/2020 00:01:00URINALYSIS ROUTINE;Dipstick Urine Glucose;NORMAL;;;Final Result ;04/30/2020 00:01:00URINALYSIS ROUTINE;Dipstick Urine Ketone;NEGATIVE;;;Final Result ;04/30/2020 00:01:00URINALYSIS ROUTINE;Dipstick Urine Urobilinogen;NORMAL;;;Final Result ;04/30/2020 00:01:00URINALYSIS ROUTINE;Dipstick Urine Bili;NEGATIVE;;;Final Result ;04/30/2020 00:01:00URINALYSIS ROUTINE;Dipstick Urine Hgb;3 ;;;Final Result ;04/30/2020 00:01:00URINE MICROSCOPIC;Microscopic Urine WBC;3-5 ;;;Final Result ;04/30/2020 00:01:00URINE MICROSCOPIC;Microscopic Urine RBC; > 100;;;Final Result ;04/30/2020 00:01:00URINE MICROSCOPIC;Microscopic Urine BACT;FEW;;;Final Result ;04/30/2020 00:01:00URINE MICROSCOPIC;Microscopic Urine Epi;FEW;;;Final Result ;04/30/2020 00:01:00EKG/Rhythm Strip InterpretationProgress Time 1: 0850 Progress comments 1: MDM: Patient is 34-year-old female presents ER with right- sided flank pain. Labs are unremarkable, urine is remarkable for hematuria which is consistent with her previous urinalysis. I reviewed her previous CTs's ultrasound. She does not have a history of kidney stone as per imaging. Based on these findings we will treat patient conservatively. 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 [facility] RBC >100 /HPF NONE SEEN ! [facility] The [employer] has definedMicroscopic Hematuria as 3 or more RBC per highpowered field from a single positive urinalysis withmicroscopy. BACTERIA MODERATE /HPF NONE SEEN ! [facility] EPITHELIAL CELLS MANY /HPF NONE SEEN ! [facility] ID Date Data Source [id number] 06/20/2020 10:03:00 AM EDT [facility] Name Value Range Interpretation Code Description Data Victoria rce(s) Supporting Document(s) COLOR LUIS M [facility] APPEARANCE CLOUDY CLEAR ! [facility] SPECIFIC GRAVITY 1.025 1.000-1.030 [facility] ital pH 5.0 5.0-8.0 [facility] LEUKOCYTES 2+ NEGATIVE ! [facility] NITRATE NEGATIVE NEGATIVE [facility] PROTEIN 100 [ 2+] mg/dL NEGATIVE ! [facility] GLUCOSE NORMAL mg/dL NORMAL [facility] KETONE NEGATIVE mg/dL NEGATIVE [facility] UROBILINOGEN NORMAL mg/dL NORMAL [facility] l BILIRUBIN NEGATIVE mg/dL NEGATIVE [facility] HEMOGLOBIN 3+ NEGATIVE ! [facility] ID Date Data Source [id number] 06/20/2020 09:07:00 AM EDT [facility] AMYLASE Name Value Range Interpretation Code Description Data Victoria rce(s) Supporting Document(s) AMYLASE 40 U/L 25-125 [facility] ID Date Data Source [id number] 06/20/2020 09:07:00 AM EDT [facility] CMP Name Value Range Interpretation Code Description Data Victoria rce(s) Supporting Document(s) SODIUM 139 mmol/L 136-145 [facility] POTASSIUM 3.8 mmol/L 3.5-5.2 [facility] CHLORIDE 108 mmol/L 100-108 [facility] CO2 24 mmol/L 21-32 [facility] GLUCOSE 106 mg/dL 70-100 H [facility] BUN 12 mg/dL 7-21 [facility] CREATININE 0.7 mg/dL 0.6-1.3 [facility] Normal Kidney Function or Mild Disease - GFR >OR= 60Chronic Kidney Disease - GFR 15-59Renal Failure - GFR < 15GFR not calculated on patients under 18 years of age. CALCIUM 8.8 mg/dL 8.5-10.8 [facility] GFR >60 [facility] T BILI 0.4 mg/dL 0.0-1.2 [facility] T PROTEIN 7.3 gm/dL 6.4-8.2 [facility] ALBUMIN 4.0 gm/dL 3.4-4.8 [facility] ALK PHOS 120 U/L 40-150 [facility] ALT (SGPT) 48 U/L 0-55 [facility] AST (SGOT) 46 U/L 5-37 H [facility] ID Date Data Source [id number] 06/20/2020 09:07:00 AM EDT [facility] LIPASE Name Value Range Interpretation Code Description Data Victoria rce(s) Supporting Document(s) LIPASE 20 U/L 8-78 [facility] ID Date Data Source [id number] 06/20/2020 09:00:00 AM EDT [facility] Name Value Range Interpretation Code Description Data Victoria rce(s) Supporting Document(s) PTT 30.9 sec 25.6-36.4 [facility] ID Date Data Source [id number] 06/20/2020 08:57:00 AM EDT [facility] al Name Value Range Interpretation Code Description Data Victoria rce(s) Supporting Document(s) PROTIME 11.7 sec 9.4-12.4 [facility] INR 1.1 [facility] INR INTERPERTATION 2.0 -3.0 THERAPEUTIC MONITORING2.5-3.5 HEART VALVE REPLACEMENT ID Date Data Source [id number] 06/20/2020 08:54:00 AM EDT [facility] CBC WITH DIFF Name Value Range Interpretation Code Description Data Victoria rce(s) Supporting Document(s) WBC 5.2 K/uL 4.8-10.8 [facility] RBC 4.00 M/uL 4.20-5.40 L [facility] HEMOGLOBIN 12.2 gm/dL 12.0-16.0 [facility] HEMATOCRIT 35.2 % 36.0-48.0 L [facility] MCV 87.9 fL 80.0-100.0 [facility] MCHC 34.6 % 30.0-36.5 [facility] MCH 30.4 pg 27.0-34.0 [facility] RDW 15.9 % 11.0-15.0 H [facility] PLATELET 309 K/uL 130-450 [facility] MPV 6.2 fL 6.0-12.0 [facility] NE% 54 % 37-80 [facility] LY% 36 % 10-50 [facility] MO% 7 % 0-12 [facility] Eosinophils [#/volume] in Blood by Automated count 2 % <=8 [facility] BA% 0 % <=3 [facility] NE# 2.8 K/uL 1.8-8.6 [facility] [facility] LYMPH# 1.9 K/uL 0.5-5.0 [facility] MONO# 0.4 K/uL 0.0-1.3 [facility] EOS# 0.1 K/uL 0.0-0.9 [facility] BASO# 0.0 K/ul 0.0-0.3 [facility] ID Date Data Source [id number] 05/22/2020 07:42:07 AM EST [facility] NT INFORMATIONPatient MRN Name Date of Age Gend*PT [id number] Taniya Field 1985 34 years F EDPT Location Admission Date/Time Visit ID Attending [id number] 05/21/20 1544 --- --- EPI ID CSN Admitting Provider [id number] ---Attestation signed by Mckayla Jhaveri MD at 05/22/2020 7:42 MALIKJORGE ONEILL Attestations:Attestation Type: Mid-Level: SUPERVISED APC: Based on the medical record thecare appears appropriate Provider in Triage NotesNo notes on fileHistory of Present IllnessChief ComplaintPatient presents with Flank Pain left flank pain x 4 days no appetite no nausea hx kidney stonesThis is a 34-year-old female past medical history of asthma, hypercholesterolemia, hypertension, renal calculi, kidney stones, nephrolithiasis, PEpresenting to the emergency department for evaluation of left leg pain. Patientreports that this left flank pain has been ongoing for the past 4 days. Statespain is sharp and constant. Reports that she was here last week for flank painas well however it subsided and has since come back. States that due to thepain she has a loss of appetite. Denies any nausea, vomiting or diarrhea.Denies any abdominal pain associated with flank pain. Does endorse somehematuria but denies any dysuria or increased urinary frequency. Does followwith Dr. Lang at [facility] urology. Denies any other complaints today. Deniesheadache, blurry vision, weakness, dizziness, chest pain, shortness of breath,abdominal pain, change in bowel or bladder habits, nausea, vomiting, diarrhea,fever, chills.Flank PainPain location: L flankPain quality: sharpPain radiates to: Does not radiatePain severity: MildOnset quality: SuddenDuration: 4 hoursTiming: ConstantProgression: UnchangedChronicity: RecurrentRelieved by: None triedWorsened by: NothingIneffective treatments: None triedAssociated symptoms: hematuriaAssociated symptoms: no anorexia, no belching, no chest pain, no chills, noconstipation, no cough, no diarrhea, no dysuria, no fatigue, no fever, noflatus, no hematemesis, no hematochezia, no melena, no nausea, no shortness ofbreath, no sore throat, no vaginal bleeding, no vaginal discharge and novomitingHistoryPast Medical History:Diagnosis Date Asthma Hypercholesterolemia Hypertension Kidney calculi Kidney stone Nephrolithiasis Pulmonary embolismPast Surgical History:Procedure Laterality Date APPENDECTOMY CHOLECYSTECTOMY URETERAL STENT PLACEMENTFamily HistoryProblem Relation Age of Onset Nephrolithiasis Mother Hypertension Mother Asthma Mother Heart attack Father Other Unknown Father Cerebrovascular accidentSocial HistoryTobacco Use Smoking status: Never Smoker Smokeless tobacco: Never UsedSubstance Use Topics Alcohol use: No Drug use: NoROSReview of SystemsConstitutional: Positive for appetite change (decreased). Negative for activitychange, chills, diaphoresis, fatigue and fever.HENT: Negative for congestion and sore throat.Eyes: Negative for photophobia, redness and visual disturbance.Respiratory: Negative for cough, shortness of breath and wheezing.Cardiovascular: Negative for chest pain.Gastrointestinal: Negative for abdominal pain, anorexia, constipation, diarrhea,flatus, hematemesis, hematochezia, melena, nausea and vomiting.Genitourinary: Positive for flank pain and hematuria. Negative for decreasedurine volume, dysuria, frequency, pelvic pain, vaginal bleeding, vaginaldischarge and vaginal pain.Musculoskeletal: Negative for arthralgias, back pain, gait problem, jointswelling, myalgias, neck pain and neck stiffness.Neurological: Negative for dizziness, weakness, light-headedness, numbness andheadaches.All other systems reviewed and are negative.Physical ExamBP 144/82 | Pulse 80 | Temp 97.2 F (Tympanic) | Resp 18 | Ht 61" | Wt (!)118.4 kg | LMP 05/01/2020 | SpO2 99% | No | BMI 49.32 kg/m Physical ExamConstitutional: She is oriented to person, place, and time. She appearswell-developed and well-nourished. No distress.HENT:Head: Normocephalic.Nose: Nose normal.Eyes: Conjunctivae and EOM are normal.Neck: Normal range of motion.Cardiovascular: Normal rate, regular rhythm, normal heart sounds and intactdistal pulses. Exam reveals no gallop and no friction rub.No murmur heard.Pulmonary/Chest: Effort normal and breath sounds normal. No stridor. Norespiratory distress. She has no wheezes. She has no rales. She exhibits notenderness.Abdominal: Soft. Bowel sounds are normal. She exhibits no distension and nomass. There is no tenderness. There is CVA tenderness (left). There is norigidity, no rebound and no guarding. No hernia.Musculoskeletal: Normal range of motion.Neurological: She is alert and oriented to person, place, and time.Skin: Skin is warm and dry. Capillary refill takes less than 2 seconds. She isnot diaphoretic.Psychiatric: She has a normal mood and affect. Her behavior is normal. Judgmentand thought content normal.Nursing note and vitals reviewed.ED CourseProceduresMDMNumber of Diagnoses or Management OptionsDiagnosis management comments: 34-year-old female presents emergency departmentfor evaluation of flank pain. Labs and imaging have been obtained. IV fluidsand Toradol given for pain. Patient has previously tolerated Toradol welldifficulty.5:01 PM: CT came down to get the patient to bring her for imaging. Patient wasno longer in the room. I called the patient myself, patient did not answer thephone however once I introduced myself she hung up the phone and is no longeranswering my phone calls. Patient has eloped from the emergency departmentwithout telling anybody.Amount and/or Complexity of Data ReviewedClinical lab tests: ordered and reviewed (CBC,CMP, Mg, Urine dip, Urine preg)Tests in the radiology section of CPT : ordered and reviewed (CT abdomen/pelviswithout IV contrast)This was electronically signed by JOE Nixon, 05/21/20 4:25 PM.JOE Nixon05/21/20 1702Katkaris Jhaveri MD05/22/20 0742 Name Value Range Interpretation Code Description Data Victoria rce(s) Supporting Document(s) ID Date Data Source [id number] 05/21/2020 04:17:14 PM EST [facility] Name Value Range Interpretation Code Description Data [facility] rce(s) Supporting Document(s) POC URINE COLOR [facility] POC URINE APPEARANCE [facility] POC SPEC GRAV URINE (1.003-1.030) [facility] POC PH URINE 5.5 (5.0-7.5) [facility] POC LEUK ESTERASE UR (NEG) A [facility] POC NITRITE URINE (NEG) [facility] POC PROTEIN URINE 1+ mg/dL (NEG) A [facility] POC GLUCOSE URINE (NEG) [facility] POC KETONE URINE (NEG) [facility] POC UROBILINOGEN UR 0.2 EU/dL (0.2-1.0) [facility] POC BILIRUBIN UR (NEG) [facility] POC BLOOD HGB URINE 3+ (NEG) A [facility] PERFORMED BY [facility] ID Date Data Source [id number] 05/21/2020 03:57:45 PM EST [facility] Name Value Range Interpretation Code Description Data Victoria rce(s) Supporting Document(s) POC URINE HCG (NEG) [facility] PERFORMED BY [facility] ID Date Data Source [id number] 05/17/2020 12:04:32 PM EST [facility] NT INFORMATIONPatient MRN Name Date of Age Gend*PT [id number] Taniya Field 1985 34 years F EDPT Location Admission Date/Time Visit ID Attending [id number] 05/16/201956 --- --- EPI ID CSN Admitting Provider [id number] ---Attestation signed by Mckayla Jhaveri MD at 05/17/2020 12:04 PMEIsaac ONEILL Attestations:Attestation Type: Mid-Level: SUPERVISED APC: Based on the medical record thecare appears appropriateMckayla Jhaveri MD 12:04 PM ED Provider in Triage NotePatient Name: Taniya Mathur and Time of Assessment: 05/16/20, 3:00 PMChief ComplaintPatient presents with Flank Pain left flank pain x yestBrief HPI: 34 years female, presents to the ED for evaluation of left flank painsince yesterday. Has history of kidney stones, states that this is the same typeof pain but is worse. Endorses nausea but no vomiting. Denies urinarycomplaints.Physical exam:Left CVA tendernessAmbulatoryNontoxic appearingVSSPreliminary Plan:Labs, urine, CTThis note was electronically signed by JOE Nixon, 05/16/20, 3:00 PM.ED JOE Mas05/16/20 1502Katkaris Jhaveri MD05/17/20 1204 Name Value Range Interpretation Code Description Data Victoria rce(s) Supporting Document(s) ID Date Data Source [id number] 05/17/2020 02:10:08 AM [facility]FORMATIONPatient MRN Name Date of Age Gend*PT [id number] Taniya Field 1985 34 years F EDPT Location Admission Date/Time Visit ID Attending [id number] 05/16/201956 --- --- EPI ID CSN Admitting Provider [id number] ---Attestation signed by Bartolo Arellano MD at 05/17/2020 2:10 MALIK Attestations:Attestation Type: I was the attending physician on duty at the time the patientvisited the ED. The patient was evaluated by the JOE/VALENTE. I was personallyavailable for consultation; however, I did not see the patient nor participatedin the medical decision making process of the encounter. The patient wasdispositioned without my knowledge and I am administratively signing the aidan rtafter the fact. I was available for immediate consultation during the patient'sED visit. ------Provider in Triage NotesED Provider in Triage NotePatient Name: Taniya Mathur and Time of Assessment: 05/16/20, 3:00 PMChief ComplaintPatient presents with Flank Pain left flank pain x yestBrief HPI: 34 years female, presents to the ED for evaluation of left flank painsince yesterday. Has history of kidney stones, states that this is the same typeof pain but is worse. Endorses nausea but no vomiting. Denies urinarycomplaints.Physical exam:Left CVA tendernessAmbulatoryNontoxic appearingVSSPreliminary Plan:Labs, urine, CTThis note was electronically signed by JOE Nixon, 05/16/20, 3:00 PM.ED JOE Mas05/16/20 1502History of Present IllnessChief ComplaintPatient presents with Flank Pain left flank pain x yestPatient reports left-sided flank pain started suddenly, sharp, around no. States that this pain radiates from left flank down to left lowerquadrant. associated with nausea without vomiting. Denies dysuria or symptoms offlank pain worse with urination, but does report hematuria since yesterday.Pain is not associated with any position or movement.Patient reports extensive history of renal stones, which have required stentplacement in the past. Last several years ago.Denies fever chills. Denies sensation of incomplete voiding. Denies confusion.Denies vaginal discharge or discomfort. Denies upper abdominal pain. Denieschest pain or shortness of breath.HistoryPast Medical History:Diagnosis Date Asthma Hypercholesterolemia Hypertension Kidney calculi Kidney stone Nephrolithiasis Pulmonary embolismPast Surgical History:Procedure Laterality Date APPENDECTOMY CHOLECYSTECTOMY URETERAL STENT PLACEMENTFamily HistoryProblem Relation Age of Onset Nephrolithiasis Mother Hypertension Mother Asthma Mother Heart attack Father Other Unknown Father Cerebrovascular accidentSocial HistoryTobacco Use Smoking status: Never Smoker Smokeless tobacco: Never UsedSubstance Use Topics Alcohol use: No Drug use: NoROSReview of SystemsConstitutional: Negative for appetite change, chills, diaphoresis, fatigue andfever.HENT: Negative for congestion, ear pain, facial swelling, nosebleeds, postnasaldrip, sinus pain, sore throat, trouble swallowing and voice change.Eyes: Negative for photophobia, pain, redness and itching.Respiratory: Negative for cough, chest tightness and shortness of breath.Cardiovascular: Negative for chest pain and leg swelling.Gastrointestinal: Positive for abdominal pain and nausea. Negative for abdominaldistention, blood in stool, diarrhea and vomiting.Genitourinary: Positive for flank pain (L) and hematuria. Negative for decreasedurine volume, difficulty urinating, dysuria, urgency, vaginal bleeding andvaginal discharge.Musculoskeletal: Negative for arthralgias, back pain, myalgias and neckstiffness.Skin: Negative for color change.Neurological: Negative for dizziness, seizures, syncope, speech difficulty,numbness and headaches.Psychiatric/Behavioral: Negative for agitation, behavioral problems andconfusion.All other systems reviewed and are negative.Physical ExamBP 126/89 (BP Location: Right upper arm, Patient Position: Sitting) | Pulse 83| Temp 98.4 F (Oral) | Resp 18 | Ht 61" | Wt (!) 113.9 kg | SpO2 100% |BMI 47.43 kg/m Physical ExamConstitutional: She is oriented to person, place, and time. She appearswell-developed.Nontoxic appearing.Vital signs stablePatient ambulatory, sits upright and is conversational. Well oriented, no acuterespiratory distress.Demeanor: uncomfortableHENT:Head: Normocephalic and atraumatic.Nose: Nose normal.Eyes: Pupils are equal, round, and reactive to light. Conjunctivae and EOM arenormal.Neck: Normal range of motion. No JVD present. No tracheal deviation present.Cardiovascular: Normal heart sounds and intact distal pulses. Exam reveals nogallop and no friction rub.No murmur heard.Pulmonary/Chest: Effort normal and breath sounds normal. No stridor. Norespiratory distress. She has no wheezes. She has no rales. She exhibits notenderness.Abdominal: Soft. Bowel sounds are normal. She exhibits no distension. There istenderness (Not reproducible to L flank or LLQ). There is no guarding.Neurological: She is alert and oriented to person, place, and time. No sensorydeficit.Skin: Skin is warm and dry. Capillary refill takes less than 2 seconds. She isnot diaphoretic. No erythema.Psychiatric: She has a normal mood and affect.Nursing note and vitals reviewed.ED CourseProceduresMDMNumber of Diagnoses or Management OptionsFlank pain:Diagnosis management comments: Patient eloped from emergency department prior tofull evaluation. Patient was in good condition last seen by provider. Initiallab evaluation without completed imaging reveals no actionable findings, withepithelial cells cells in urine not convincing for UTI.This was electronically signed by Kanu Luciano PA-C, 05/16/20 7:58 PM.CHARLES San C03/06/03 2227Jolit Arellano MD03 0210 Name Value Range Interpretation Code Description Data [facility] rce(s) Supporting Document(s) ID Date Data Source [id number] 05/16/2020 08:23:12 PM EST [facility] Name Value Range Interpretation Code Description Data [facility] rce(s) Supporting Document(s) POC URINE HCG (NEG) [facility] BY [facility] ID Date Data Source [id number] 05/18/2020 09:33:13 AM EST [facility] SPECIMEN DESCRIPTION MIDSTREAM UR INE,CLEAN CATCHCULTURE RESULTS MIXED UROGENITAL RADHA; PLEASE SUBMIT A NEW SPEC IMEN IF CLINICALLY INDICATED.REPORT STATUS FINAL 05/18/2020 Name Value Range Interpretation Code Description Data [facility] rce(s) Supporting Document(s) ID Date Data Source [id number] 05/16/2020 09:32:47 PM EST [facility] Name Value Range Interpretation Code Description Data [facility] rce(s) Supporting Document(s) URINE WBC (0-5) [facility] URINE RBC (0-2) [facility] EPITHELIAL CELLS 3+ [HPF] [facility] BACTERIA 1+ [HPF] [facility] ID Date Data Source [id number] 05/16/2020 09:23:22 PM EST [facility] Name Value Range Interpretation Code Description Data [facility] rce(s) Supporting Document(s) SODIUM 142 mmol/L (136-145) [facility] POTASSIUM 3.9 mmol/L (3.6-5.2) [facility] CHLORIDE 107 mmol/L (100-108) [facility] CO2 29 mmol/L (22-31) [facility] ANION GAP 6 mmol/L (7-16) L [facility] UREA NITROGEN 16 mg/dL (7-24) [facility] CREATININE 0.64 mg/dL (0.60-1.00) [facility] BUN/CREAT RATIO 25.0 RATIO (10.0-20.0) H [facility] GLUCOSE 88 mg/dL (70-99) [facility] CALCIUM 9.0 mg/dL (8.4-10.2) [facility] TOTAL PROTEIN 7.3 g/dL (6.4-8.2) [facility] ALBUMIN 3.5 g/dL (3.5-4.6) [facility] GLOBULIN 3.8 g/dL (2.7-4.3) [facility] ALB/GLOB RATIO 0.9 RATIO [facility] ALKALINE PHOSPHATASE 119 U/L (45-117) H [facility] BILIRUBIN,TOTAL 0.2 mg/dL (0.0-1.0) [facility] PLEASE NOTE:Total bilirubin results may be falselyelevated in patients taking Eltrombopag. AST (SGOT) 34 U/L (11-39) [facility] ALT (SGPT) 54 U/L (12-78) [facility] GFR >60 ml/min/1.73m2 (>59) [facility] GFR ( AMER) >60 ml/min/1.73m2 (>59) [facility] GFR INTERPRETATION [facility] --NORMAL KIDNEY FUNCTION OR MILD DISEASE - GFR >OR= 60CHRONIC KIDNEY DISEASE - GFR 15 - 59RENAL FAILURE - GFR <15 Est. GFR calculation based on the MDRDstudy equation, which assumes a steadystate for creatinine. Est. GFR should notbe used for medication dosing. ID Date Data Source [id number] 05/16/2020 09:20:31 PM EST [facility] Name Value Range Interpretation Code Description Data Victoria rce(s) Supporting Document(s) MAGNESIUM 2.3 mg/dL (1.7-2.4) [facility] ID Date Data Source [id number] 05/16/2020 08:47:09 PM EST [facility] Name Value Range Interpretation Code Description Data [facility] rce(s) Supporting Document(s) COLOR [facility] APPEARANCE [facility] SPEC GRAV URINE 1.027 (1.003-1.030) [facility] PH URINE 5.5 (5.0-7.5) [facility] LEUK ESTERASE 1+ (NEG) A [facility] NITRITE URINE (NEG) [facility] PROTEIN URINE 2+ (NEG) A [facility] GLUCOSE URINE (NEG) [facility] KETONE URINE (NEG) [facility] UROBILINOGEN 0.2 mg/dL (0-1.0) [facility] BILIRUBIN URINE (NEG) [facility] BLOOD/HGB URINE 3+ (NEG) A [facility] ID Date Data Source [id number] 05/16/2020 08:27:52 PM EST [facility] Name Value Range Interpretation Code Description Data Victoria rce(s) Supporting Document(s) WBC 8.4 10*3/uL (4.1-11.0) [facility] RBC 4.16 10*6/uL (4.00-5.40) [facility] HGB 11.6 g/dL (12.0-16.0) L [facility] HCT 35.1 % (36.0-47.0) L [facility] MCV 84.5 fL (80.0-95.0) [facility] MCH 27.8 pg (27.0-32.0) [facility] MCHC 32.9 g/dL (32.0-36.0) [facility] RDW 15.0 % (10.5-14.5) H [facility] PLT 298 10*3/uL (150-450) [facility] MPV 7.1 fL (7.1-10.7) [facility] NEUT % 59.8 % (35.0-75.0) [facility] LYMPH % 32.1 % (16.0-52.0) [facility] MONO % 6.5 % (0.0-8.0) [facility] EOS % 1.4 % (0.0-5.0) [facility] BASO % 0.2 % (0.0-4.0) [facility] NEUT # 5.0 10*3/uL (1.8-7.7) [facility] LYMPH # 2.7 10*3/uL (1.2-4.8) [facility] MONO # 0.6 10*3/uL (0.0-0.8) [facility] Eosinophils [#/volume] in Blood by Automated count 0.1 10*3/uL (0.0-0 .5) [facility] BASO # 0.0 10*3/uL (0.0-0.2) [facility] ID Date Data Source "" 05/11/2020 11:57:00 [place] [address] Patient Name: Taniya Field Exam Date: 05/11/20 : 1985 Ordering Doctor: Karina Nicole NP Attending Doctor: Kyree John MD CC: EXAM:Abdomen 1V CLINICAL INDICATION: lt flank pain TECHNIQUE: Two x-rays of the abdomen were obtained. COMPARISON: Abdominal x-rays dated 02/20/2020. FINDINGS: The lung bases are clear. Cholecystectomy clips in the right upper quadrant. Moderate to large stool burden. No calcifications identified overlying the renal shadows. IMPRESSION: 1. Moderate constipation. Professional interpretation performed by [facility] Medical Imaging at [facility] . End of diagnostic report: [id number] Signed: Boyd Armstrong MD 05/11/20 1227 Interpreted by: Boyd ArmstrongTranscribed by: Boyd Armstrong [address] [address] Patient Name: Taniya Field Exam Date: 03/29/20 : 1985 Ordering Doctor: Blanca Adkins NP Attending Doctor: Elton Dobbs MD CC: Ultrasound: Renal. INDICATION: R Flank/groin pain, r/o stone TECHNIQUE: Multiple grayscale and Color Doppler sonographic images were obtained. COMPARISON: Ultrasound dated 08/15/2019 FINDINGS: The right kidney measures 10.4 x 5.7 x 3.8 cm with a cortical thickness of 1.3 cm. Contour and echo pattern of the right kidney are normal. No cystic or solid mass. No stones are identified. There is no hydronephrosis. The left kidney measures 10.6 x 5.4 x 5.2 cm with a cortical thickness of 1.6 cm. Contour and echo pattern of left kidney are normal. No cystic or solid mass. No stones are identified. There is no hydronephrosis. Bladder is incompletely distended and not well evaluated. Incidental note of fatty liver. IMPRESSION: Kidneys unremarkable. No stones identified. No hydronephrosis. Partially imaged liver demonstrates hepatic steatosis. Professional interpretation performed at [facility] . End of diagnostic report: [id number] Signed: Grazyna Payton MD 03/29/20 1843 Interpreted by: Grazyna PaytonTranscribed by: Grazyna Payton Name Value Range Interpretation Code Description Data [facility] rce(s) Supporting Document(s) ID Date Data Source "" 03/29/2020 06:37:[address] [address] Patient Name: Taniya Field Exam Date: 05/11/20 : 1985 Ordering Doctor: Karina Nicole NP Attending Doctor: Kyree John MD CC: EXAM:Abdomen 1V CLINICAL INDICATION: lt flank pain TECHNIQUE: Two x-rays of the abdomen were obtained. COMPARISON: Abdominal x-rays dated 02/20/2020. FINDINGS: The lung bases are clear. Cholecystectomy clips in the right upper quadrant. Moderate to large stool burden. No calcifications identified overlying the renal shadows. IMPRESSION: 1. Moderate constipation. Professional interpretation performed by [facility] Imaging at [facility] . End of diagnostic report: [id number] Signed: Boyd Armstrong MD 05/11/20 1227 Interpreted by: Boyd ArmstrongTranscribed by: [facility] [place] [address] Patient Name: Taniya Field Exam Date: 03/29/20 : 1985 Ordering Doctor: Blanca Adkins NP Attending Doctor: Elton Dobbs MD CC: Ultrasound: Renal. INDICATION: R Flank/groin pain, r/o stone TECHNIQUE: Multiple grayscale and Color Doppler sonographic images were obtained. COMPARISON: Ultrasound dated 08/15/2019 FINDINGS: The right kidney measures 10.4 x 5.7 x 3.8 cm with a cortical thickness of 1.3 cm. Contour and echo pattern of the right kidney are normal. No cystic or solid mass. No stones are identified. There is no hydronephrosis. The left kidney measures 10.6 x 5.4 x 5.2 cm with a cortical thickness of 1.6 cm. Contour and echo pattern of left kidney are normal. No cystic or solid mass. No stones are identified. There is no hydronephrosis. Bladder is incompletely distended and not well evaluated. Incidental note of fatty liver. IMPRESSION: Kidneys unremarkable. No stones identified. No hydronephrosis. Partially imaged liver demonstrates hepatic steatosis. Professional interpretation performed at [facility] . End of diagnostic report: [id number] Signed: Grazyna Payton MD 03/29/20 1843 Interpreted by: Grazyna PaytonTranscribed by: Grazyna Payton Name Value Range Interpretation Code Description Data [facility] rce(s) Supporting Document(s) ID Date Data Source [id number] 05/11/2020 11:00:00 AM EST [facility] Name Value Range Interpretation Code Description Data Victoria rce(s) Supporting Document(s) Potassium [Moles/volume] in Serum or Plasma 4.1 meq/L 3.5-5.3 [facility] ([facility]) Sodium [Moles/volume] in Serum or Plasma 139 meq/L 135-145 [facility] ([facility]) Carbon dioxide, total [Moles/volume] in Serum or Plasma 27 meq/L 22 -33 [facility] ([facility]) Chloride [Moles/volume] in Serum or Plasma 106 meq/L 94-110 [facility] ([facility]) Anion gap in Serum or Plasma 10 5-16 [facility] ([facility]) Urea nitrogen [Mass/volume] in Serum or Plasma 12 mg/dL 7-25 [facility] ([facility]) Creatine [Mass/volume] in Serum or Plasma 0.8 mg/dL 0.6-1.4 [facility] ([facility]) Glomerular filtration rate/1.73 sq M.pre dicted [Volume Rate/Area] in Serum or Plasma by Creatinine-based formula (MDRD) 81.2 mL/min [facility] ([facility]) Stage G2 - Mildly decreased kidney funct ion The GFR is an estimate of the Glomerular Filtration Rate. It is an aid to assess a patient's renal function. It is not a conclusive diagnosis of kidney disease. GFR normal is >=90 The MDRD GFR calculation is considered valid between the ages of 18 and 75 years only. Urea nitrogen/Creatinine [Mass Ratio] in Serum or Plasma 15 8 -36 [facility] ([facility]) Calcium [Mass/volume] in Serum or Plasma 8.7 mg/dL 8.7-10.5 [facility] ([facility]) Glucose [Mass/volume] in Serum or Plasma 131 mg/dL 70-100 Above high normal [facility] ([facility]) Aspartate aminotransferase [Enzymatic activity/volume] in Serum or Plasma 51 U/L 5-40 Above high normal [facility] ([facility]) Bilirubin.total [Mass/volume] in Serum or Plasma 0.3 mg/dL 0.1-1.3 [facility] ([facility]) Alanine aminotransferase [Enzymatic activity/volume] in Seru m or Plasma 65 U/L 5-48 Above high normal [facility] ([facility]) Alkaline phosphatase [Enzymatic activity/volume] in Serum or Plasma 120 U/L 40-140 [facility] ([facility]) Albumin [Mass/volume] in Serum or Plasma 4.4 g/dL 3.0-5.1 [facility] ([facility]) Protein [Mass/volume] in Serum or Plasma 6.4 g/dL 5.9-8.3 [facility] ([facility]) Albumin/Globulin [Mass Ratio] in Serum or Plasma 2.2 g/dL 1.0-3.0 [facility] ([facility]) Globulin [Mass/volume] in Serum by calculation 2.0 g/dL 1.5-3.5 [facility] ([facility]) ID Date Data Source [id number] 05/11/2020 11:00:00 AM EST [facility] ([facility]) Name Value Range Interpretation Code Description Data Victoria rce(s) Supporting Document(s) Choriogonadotropin.beta subunit ( test) [Pres ence] in Serum or Plasma Laboratory test result [facility] Choriogonadotropin [Units/volume] in Serum or Plasma Laboratory melisa t result [facility] Reference range is Negative "Extreme" early may have low levels of HCG present. If is suspected, repeat testing with a new specimen in 48-72 hours ID Date Data Source [id number] 05/11/2020 11:00:00 AM EST [facility] ([facility]) Name Value Range Interpretation Code Description Data Victoria rce(s) Supporting Document(s) Leukocytes [#/volume] in Blood by Automated count 6.20 10^3/uL 4.00-1 0.50 [facility] ([facility]) Hemoglobin [Mass/volume] in Blood 11.3 g/dL 11.5-15.6 Below low nor mal [facility] ([facility]) Erythrocytes [#/volume] in Blood by Automated count 4.15 10^6/uL 3.90 -5.20 [facility] ([facility]) Hematocrit [Volume Fraction] of Blood by Automated count 35.3 % 3 5.0-46.0 [facility] ([facility]) Erythrocyte mean corpuscular volume [Entitic volume] by Auto mated count 85.1 FL 80.0-100.0 [facility] ([facility]) Erythrocyte mean corpuscular hemoglobin [Entitic mass] by Automated count 27.2 pg 27.0-34.0 [facility] ([facility]) Erythrocyte mean corpuscular hemoglobin concentration [Mass/volume] by Automated count 32.0 g/dL 32-36 [facility] ([facility]) Erythrocyte distribution width [Ratio] by Automated count 14.4 % 11.5-14.5 [facility] ([facility]) Platelets [#/volume] in Blood by Automated count 333 10^3/uL 130-400 [facility] ([facility]) Platelet mean volume [Entitic volume] in Blood by Giannaker 9.0 FL 8.7-13.2 [facility] ([facility]) Granulocytes/100 leukocytes in Blood 63.2 % 42.0-75.0 [facility] ([facility]) Lymphocytes/100 leukocytes in Blood by Automated count 28.2 % 20. 0-51.0 [facility] ([facility]) Monocytes/100 leukocytes in Blood by Automated count 6.1 % 2.0-1 5.0 [facility] ([facility]) Basophils/100 leukocytes in Blood by Automated count 0.2 % 0.0-2 .0 [facility] ([facility]) Eosinophils/100 leukocytes in Blood by Automated count 1.8 % 0.0 -11.0 [facility] ([facility]) Ig % (Auto) 0.5 % 1.00-5.00 [facility]) Immature granulocytes [#/volume] in Blood 0.0 10^3/uL [facility] ([facility]) Lymphocytes [#/volume] in Blood by Automated count 1.8 k/uL 1.0-5.0 [facility] ([facility]) Granulocytes [#/volume] in Blood 3.92 10^3/uL 1.50-6.50 [facility] ([facility]) Eosinophils [#/volume] in Blood by Automated count 0.11 10^3/uL 0.00- 1.10 [facility] ([facility]) Monocytes [#/volume] in Blood by Automated count 0.38 k/uL 0.20-1.50 [facility] Basophils [#/volume] in Blood by Automated count 0.01 10^3/uL 0.00-0. 20 [facility] ID Date Data Source [id number] 05/11/2020 11:09:00 AM EST [facility] Name Value Range Interpretation Code Description Data Victoria rce(s) Supporting Document(s) WHITE BLOOD COUNT 6.20 10^3/uL 4.00-10.50 [facility] RED BLOOD COUNT 4.15 10^6/uL 3.90-5.20 [facility] H[facility] 11.3 G/DL 11.5-15.6 [facility] HEMATOCRIT 35.3 % 35.0-46.0 [facility] MCV 85.1 FL 80.0-100.0 [facility] MCH 27.2 PG 27.0-34.0 [facility] MCHC 32.0 G/DL 32-36 [facility] RDW 14.4 % 11.5-14.5 [facility] PLATELET COUNT 333 10^3/uL 130-400 [facility] MPV 9.0 FL 8.7-13.2 [facility] GRAN % (AUTO) 63.2 % 42.0-75.0 [facility] LYMPH % (AUTO) 28.2 % 20.0-51.0 [facility] MONO % (AUTO) 6.1 % 2.0-15.0 [facility] EOS % (AUTO) 1.8 % 0.0-11.0 [facility] BASO % (AUTO) 0.2 % 0.0-2.0 [facility] IG % (AUTO) 0.5 % 1.00-5.00 [facility] IG # (AUTO) 0.0 10^3/uL <0.5 [facility] GRAN # (AUTO) 3.92 10^3/uL 1.50-6.50 N [facility] LYMPH # (AUTO) 1.8 k/uL 1.0-5.0 [facility] MONO # (AUTO) 0.38 k/uL 0.20-1.50 [facility] EOS # (AUTO) 0.11 10^3/uL 0.00-1.10 [facility] BASO # (AUTO) 0.01 10^3/uL 0.00-0.20 N [facility] ID Date Data Source [id number] 05/11/2020 11:22:00 AM [facility] Name Value Range Interpretation Code Description Data Victoria rce(s) Supporting Document(s) HCG QUALITATIVE SPECIMEN SERUM [facility] ID Date Data Source [id number] 05/11/2020 11:29:00 AM [facility] Name Value Range Interpretation Code Description Data Victoria rce(s) Supporting Document(s) SODIUM 139 MEQ/L 135-145 N [facility] POTASSIUM 4.1 MEQ/L 3.5-5.3 [facility] CHLORIDE 106 MEQ/L 94-110 [facility] CARBON DIOXIDE 27 MEQ/L 22-33 [facility] ANION GAP 10 5-16 N [facility] BLOOD UREA NITRO 12 MG/DL 7-25 N [facility] CREATININE 0.8 MG/DL 0.6-1.4 [facility] GFR 81.2 ML/MIN [facility] Stage G2 - Mildly decreased kidney func tion The GFR is an estimate of the Glomerular Filtration Rate. It is an aid to assess a patient's renal function. It is not a conclusive diagnosis of kidney disease. GFR normal is >=90 The MDRD GFR calculation is considered valid between the ages of 18 and 75 years only. BUN/CREAT RATIO 15 8-36 N [facility] GLUCOSE 131 MG/DL 70-100 H [facility] CA 8.7 MG/DL 8.7-10.5 N [facility] BILIRUBIN,TOTAL 0.3 MG/DL 0.1-1.3 [facility] AST 51 U/L 5-40 H [facility] ALT 65 U/L 5-48 [facility] ALKALINE PHOSPHATASE 120 U/L 40-140 [facility] TOTAL PROTEIN 6.4 G/DL 5.9-8.3 N [facility] ALBUMIN 4.4 G/DL 3.0-5.1 N [facility] GLOBULIN 2.0 G/DL 1.5-3.5 N [facility] ALB/GLOB RATIO 2.2 G/DL 1.0-3.0 N [facility] ID Date Data Source [id number] 05/11/2020 11:22:00 AM [facility] Name Value Range Interpretation Code Description Data Victoria rce(s) Supporting Document(s) HCG RESULT,S NEGATIVE [facility] Reference range is Negative "Extreme" early may have low levels of HCG present. If is suspected, repeat testing with a new specimen in 48-72 hours ID Date Data Source [id number] 05/11/2020 10:45:00 [place] [address] HEALTH INFORMATION MANAGEMENT ED/UC Physician Report : [id number] Signed Patient: Taniya Field Acct:[id number] Unit: [facility]etano [id number] : 1985 Arrival Date: 05/11/20 Age/Sex: 34 / F Arrival Time: 1030 Copies to: Fortunato Contreras MD General Adult HPI/ROS General Chief Complaint: Flank Pain Stated Complaint: L Sided ABD Pain Stated Complaint: L Sided ABD Pain Source: Patient, Old records reviewed, RN/MD, RN notes reviewed and I have reviewed available Ancillary/nursing staff documentation Mode of arrival: Ambulatory Limitations: Reports No limitations History of Present Illness Initial Comments: 34-year-old female here for evaluation of recurrent left flank pain. Patient has a history of chronic left flank pain with multiple CT scans x-rays and ultrasounds that revealed no evidence of stone or hydronephrosis or stenosis. Time interval: Days(s) (1) Location: Reports Back Radiation: Reports Abdomen Severity scale (1-10): 3 Quality: Reports Aching, Constant and Stabbing Consistency: Reports Constant Improves with: Reports None Worsens with: Reports None Associated symptoms: Reports Denies other symptoms Related Data LMP (females 10-50): Unknown Home Medications Medication Instructions Recorded enoxaparin [Lovenox] 120 mg SUBCUT Q12H 03/29/20 baclofen 10 mg PO DAILY 05/11/20 buspirone 10 mg PO BID 05/11/20 levocetirizine [Xyzal] 5 mg PO DAILY 05/11/20 mirtazapine [Remeron] 15 mg PO DAILY 05/11/20 venlafaxine 37.5 mg PO DAILY 05/11/20 Allergies Penicillins Allergy (Intermediate, Verified 05/11/20 10:42) RASH/HIVES ibuprofen Adverse Reaction (Severe, Verified 05/11/20 10:42) contraindication with blood thinner Review of Systems Review of Systems All systems: Reviewed and negative except as stated in HPI. Immunizations Tetanus Status: Unknown Social History Social History Other: lives with sister and sisters children History of Smoking/Tobacco Use: Unknown if Ever Smoked Tobacco Product: Reports Cigarettes Alcohol use: Reports None Drug use: Reports None Occupation: [employer] Lives with: Reports Alone PMH/PSH Medical History (Updated 05/12/20 @ 10:51 by Karina Nicole NP) Asthma Diverticulitis Factor 5 Leiden mutation, heterozygous Hypertension Kidney stone Pulmonary emboli Rotator cuff strain Surgical History History of appendectomy (Surgical) Hx of cholecystectomy (Surgical) Family History Other No pertinent family history Patient denies significant medical history Physical Exam Physical Exam General appearance: Alert, Anxious, In distress mild due to: Pain and Obese Head Head Exam: Atraumatic and Normcephalic Eye Eye Exam: Co njunctiva normal and Sclera normal ENT ENT Exam: External ear normal and Nose normal Neck Neck Exam: Supple and Trachea Midline Lung/Chest Lung/Chest Exam: Clear and Normal Exchange Abdomen Abdominal Exam: Bowel sounds normal, Soft, Nondistended, No guarding and Abnormal Findings Findings: Tenderness Abdominal Pain Location: LUQ Back Back Exam: Full ROM and No Deformity Location of Back Tenderness: CVA: Left Upper Extremity Shoulder Exam: normal inspection (bilat) and full ROM (bilat) ARM Exam: normal inspection (bilat) and full ROM (bilat) Lower Extremity Lower Extremity Location: Ankle, Femur, Hip and Knee Lower Extermity Normal: Full ROM (bilat) Neuro Neuro Normal: Alert, Oriented x 3 and Fluent speech Psych Psych Normal: Normal Affect Skin Skin exam: Dry, Intact and Warm Distribution: generalized Course Course Course Narrative: Exam. Pt medicated for pain with tylenol. All previous scans, US and labs Course Narrative: Exam. Pt medicated for pain with tylenol. All previous scans, US and labs reviewed. Discussed with pt CT scan 2 weeks ago shows no stones, no hydronephrosis Vital Signs Vital Signs status: Stable Vital signs: Vital Signs 05/11/20 10:40 Temperature 98 F Pulse Rate 109 H Respiratory Rate 16 Blood Pressure 189/89 H O2 Sat by Pulse Oximetry 97 Medical Decision Making/CCT Lab Data Result diagrams: 05/11/20 11:00 05/11/20 11:00 Labs reviewed: Yes Hyperglycemia Identified Hyperglycemia identified in patient?: Yes Hyperglycemia was identified in this patient and:: PCP follow up was advised within 2-3 days Medication/Allergies Review Medication/Allergies Review Home Medication and Allergy review: I reviewed patients allergies, home medications, and new prescriptions and All Rx meds, nonRx meds, supplements reported by patient are recorded Blood Pressure Blood pressure: Pt BP elevated has following urgent/emergent condition, without HX HTN Radiology Data Radiology Data Radiology results: report reviewed and image reviewed Radiology impressions: EXAM:Abdomen 1VCLINICAL INDICATION: lt flank painTECHNIQUE: Two x- rays of the abdomen were obtained. COMPARISON: Abdominal x-rays dated 02/20/2020. FINDINGS: The lung bases are clear.Cholecystectomy clips in the right upper quadrant.Moderate to large stool burden.No calcifications identified overlying the renal shadows. IMPRESSION: 1. Moderate constipation.Professional interpretation performed by [facility] at [facility] .End of diagnostic report: [id number]: Boyd Armstrong MD05/11/20 1227 Critical Care Time Critical Care Time: No Discharge Plan Disposition Clinical Impression: Constipation by delayed colonic transit, Chronic flank pain Provider stated Dispo: Discharged Condition: Stable Instructions: Flank Pain (ED) Activity Restrictions/Additional Instructions: Make sure to stay well hydrated. Make sure to keep your appointment with Urology on Thursday. Continue with Tylenol as needed for discomfort. Increase fruit and fiber in diet. Prescriptions: No Action enoxaparin [Lovenox] 120 mg/0.8 mL syringe 120 mg subcut Q12H RF: 0 baclofen 10 mg tablet 10 mg PO DAILY RF: 0 venlafaxine 37.5 mg tablet 37.5 mg PO DAILY RF: 0 buspirone 10 mg tablet 10 mg PO BID RF: 0 mirtazapine [Remeron] 15 mg tablet 15 mg PO DAILY RF: 0 levocetirizine [Xyzal] 5 mg tablet 5 mg PO DAILY RF: 0 Referrals: Fortunato Contreras MD [Primary Care Provider] - As Needed Stand Alone Forms: Portal Instructions Patient agreeable to discharge: Patient/Guardian understands and is agreeable to discharge plan Provider in triage note Vital Signs Vital Signs: I O (Last 24 Hours) 05/09/20 05/10/20 05/11/20 23:59 23:59 23:59 Other: Weight 118 kg Vital Signs (Last 8 Hours) Temp Pulse Resp BP Pulse Ox 05/11/20 10:40 98 F 109 H 16 189/89 H 97 Date/Time <<Signature on File>> Initializing User: Karina Nicole NP 05/11/20 1045 Signed by: Karina Nicole NP 05/12/20 9271 Kyree John MD 05/12/20 9180 Name Value Range Interpretation Code Description Data [facility] rce(s) Supporting Document(s) ID Date Data Source [id number] 05/11/2020 10:30:00 AM EST [facility] ([facility]) Name Value Range Interpretation Code Description Data [facility] rce(s) Supporting Document(s) Bacteria identified in Urine by Culture Laboratory test result [facility] ([facility]) Run: 05/12/20 1030 INTERFACED REPORT Name: Taniya Field Age/Sex: 34/F Location: ED Acct: [id number] Unit: [id number] Status: LICHA FRANK Room/Bed: Re05/11/20 Disch: Att Dr: Kyree John MD Specimen #: [id number] Ordered : 05/11/20 Collected : 05/11/20 By: ARLYN Received: 05/11/20 By: DELLA Source: URINE CC Specimen Description: Procedure Result COLONY COUNT Final COLONY COUNT GREATER THAN 100,000 CFU/ML URINE CULTURE Final PRESENCE OF 3 OR MORE ORGANISMS-SPECIMEN MAY BE CONTAMINATED SUGGEST REPEAT END OF REPORT ID Date Data Source [id number] 05/11/2020 10:30:00 AM EST [facility] ([facility]) Name Value Range Interpretation Code Description Data Victoria rce(s) Supporting Document(s) Color of Urine Laboratory test result [facility] ([facility]) Appearance of Urine Laboratory test result Abnor mal (applies to non-numeric results) [facility] ([facility]) Specific gravity of Urine 1.020 1.002-1.035 [facility] ([facility]) pH of Urine 5.0 5.0-8.0 [facility]) Glucose [Mass/volume] in Urine Laboratory test result [facility] ([facility]) Protein [Presence] in Urine by Test strip 30 mg/dL Abnormal (applies to non- numeric results) [facility] ([facility]) Hemoglobin [Presence] in Urine by Test strip Laboratory test res ult Abnormal (applies to non-numeric results) [facility] Ketones [Presence] in Urine by Test strip Laboratory test result [facility] ([facility]) Nitrate [Presence] in Urine Laboratory test result [facility] ([facility]) Leukocyte esterase [Presence] in Urine by Test strip Laboratory test result Abnormal (applies to non-numeric results) [facility] ([facility]) Bilirubin.total [Presence] in Urine by Test strip Laboratory test res ult [facility] ([facility]) Urobilin [Presence] in Urine Laboratory test result 0-0 [facility] ([facility]) RBC,Ur Laboratory test result 0-2 Abnormal (applies to non -numeric results) [facility] ([facility]) Epithelial cells [Presence] in Urine sediment by Light microscopy Laboratory test result 0-0 [facility] ([facility]) Leukocytes [Presence] in Urine Laboratory test result Abnormal (applies to non-numeric results) [facility] ([facility]) Bacteria,Ur Laboratory test result [facility] T ([facility]) Mucus [Presence] in Urine sediment by Light microscopy Laborator y test result [facility] ([facility]) ID Date Data Source [id number] 05/11/2020 11:38:00 AM [facility] [place] Run: 05/12/201029 INTERFACED REPORT Name: Taniya Field Age/Sex: 34/F Location: ED Acct: [id number] Unit: [id number] Status: DEP ER Room/Bed: Re05/11/20 Disch: Tatiana Dr: Kyree John MD Specimen #: [id number] Ordered : 05/11/20 Collected : 05/11/20 By: ARLYN Received: 05/11/20 By: DELLA Source: URINE CC Specimen Description: Procedure Result - COLONY COUNT Final COLONY COUNT GREATER THAN 100,000 CFU/ML URINE CULTURE Final PRESENCE OF 3 OR MORE ORGANISMS-SPECIMEN MAY BE CONTAMINATED SUGGEST REPEAT END OF REPORT Name Value Range Interpretation Code Description Data Victoria rce(s) Supporting Document(s) COLOR,UR YELLOW YELLOW [facility] APPEARANCE,UR CLOUDY CLEAR A [facility] PH,UR 5.0 5.0-8.0 [facility] SPECIFIC GRAVITY,UR 1.020 1.002-1.035 [facility] PROTEIN,UR 30 MG/DL NEGATIVE A [facility] GLUCOSE, UR NEGATIVE MG/DL NEGATIVE [facility] KETONES,UR NEGATIVE MG/DL NEGATIVE [facility] OCCULT BLOOD,UR LARGE NEGATIVE A [facility] NITRATE,UR NEGATIVE NEGATIVE [facility] LEUKOCYTE ESTERASE ,UR MODERATE NEGATIVE A [facility] BILIRUBIN,UR NEGATIVE NEGATIVE [facility] UROBILINOGEN,UR 0.2-1.0 EU MG/DL NEG-0-1.0 [facility] RBC,UR >100 PER HPF 0-2 A [facility] WBC,UR 25-49 PER HPF <5 A [facility] URINE EPITH MANY PER/LPF FEW-MOD [facility] BACTERIA,UR RARE PER HPF NONE [facility] MUCUS,UR RARE PER HPF NONE SEEN [facility] ID Date Data Source [id number] 05/12/2020 10:30:00 AM EST [facility] Run: 05/12/201029 INTERFACED REPORT Name: EmirTaniya Age/Sex: 34/F Location: ED Acct: [id number] Unit: [id number] Status: LICHA FRANK Room/Bed: Re05/11/20 Disch: Tatiana Dr: Kyree John MD Specimen #: [id number] Ordered : 05/11/20 Collected : 05/11/20 By: ARLYN Received: 05/11/20 By: DELLA Source: URINE CC Specimen Description: Procedure Result - COLONY COUNT Final COLONY COUNT GREATER THAN 100,000 CFU/ML URINE CULTURE Final PRESENCE OF 3 OR MORE ORGANISMS-SPECIMEN MAY BE CONTAMINATED SUGGEST REPEAT END OF REPORT Name Value Range Interpretation Code Description Data Victoria rce(s) Supporting Document(s) ID Date Data Source [id number] 05/06/2020 11:37:00 AM EST [facility] Name Value Range Interpretation Code Description Data Victoria rce(s) Supporting Document(s) SARS-CoV-2 RdRp gene result Negative [facility] This lab was ordered by [employer] and reported by [facility]. ID Date Data Source [id number] 05/06/2020 12:00:00 AM EST [facility] Name Value Range Interpretation Code Description Data Victoria e(s) Supporting Document(s) SARS coronavirus 2 RNA [Presence] in Res piratory specimen by WILLIAN with probe detection NEGATIVE [facility] This lab was ordered by [facility] and reported by [employer]. ID Date Data Source [id number] 04/30/2020 08:31:00 AM EST [facility] Name Value Range Interpretation Code Description Data Victoria rce(s) Supporting Document(s) SODIUM 139 mmol/L 136-145 [facility] POTASSIUM 4.3 mmol/L 3.5-5.2 [facility] CHLORIDE 107 mmol/L 100-108 [facility] CO2 24 mmol/L 21-32 [facility] GLUCOSE 98 mg/dL 70-100 [facility] BUN 13 mg/dL 7-21 [facility] CREATININE 0.9 mg/dL 0.6-1.3 [facility] Normal Kidney Function or Mild Disease - GFR >OR= 60Chronic Kidney Disease - GFR 15-59Renal Failure - GFR < 15GFR not calculated on patients under 18 years of age. CALCIUM 8.8 mg/dL 8.5-10.8 [facility] GFR >60 [facility] T BILI 0.3 mg/dL 0.0-1.2 [facility] T PROTEIN 7.5 gm/dL 6.4-8.2 [facility] ALBUMIN 3.9 gm/dL 3.4-4.8 [facility] ALK PHOS 109 U/L 40-150 [facility] ALT (SGPT) 51 U/L 0-55 [facility] AST (SGOT) 50 U/L 5-37 H [facility] ID Date Data Source [id number] 04/30/2020 08:01:00 AM EST [facility] Name Value Range Interpretation Code Description Data Victoria rce(s) Supporting Document(s) WBC 7.3 K/uL 4.8-10.8 [facility] RBC 4.01 M/uL 4.20-5.40 L [facility] HEMOGLOBIN 11.6 gm/dL 12.0-16.0 L [facility] HEMATOCRIT 34.7 % 36.0-48.0 L [facility] MCV 86.4 fL 80.0-100.0 [facility] MCHC 33.4 % 30.0-36.5 [facility] MCH 28.9 pg 27.0-34.0 [facility] RDW 13.5 % 11.0-15.0 [facility] PLATELET 295 K/uL 130-450 [facility] MPV 6.8 fL 6.0-12.0 [facility] NE% 60 % 37-80 [facility] LY% 30 % 10-50 [facility] MO% 7 % 0-12 [facility] Eosinophils [#/volume] in Blood by Automated count 2 % <=8 [facility] BA% 0 % <=3 [facility] NE# 4.4 K/uL 1.8-8.6 [facility] LYMPH# 2.2 K/uL 0.5-5.0 [facility] MONO# 0.5 K/uL 0.0-1.3 [facility] EOS# 0.2 K/uL 0.0-0.9 [facility] BASO# 0.0 K/ul 0.0-0.3 [facility] ID Date Data Source [id number] 05/02/2020 09:38:00 AM EST [facility] CULTURE OBSERVATIONS 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 [facility] RBC >100 /HPF NONE SEEN ! [facility] The [employer] has definedMicroscopic Hematuria as 3 or more RBC per highpowered field from a single positive urinalysis withmicroscopy. BACTERIA FEW /HPF NONE SEEN ! [facility] EPITHELIAL CELLS FEW /HPF NONE SEEN ! [facility] al ID Date Data Source [id number] 04/30/2020 08:42:00 AM EST [facility] Name Value Range Interpretation Code Description Data Victoria rce(s) Supporting Document(s) COLOR LUIS M [facility] APPEARANCE HAZY CLEAR ! [facility] SPECIFIC GRAVITY 1.025 1.000-1.030 [facility] ital pH 5.0 5.0-8.0 [facility] LEUKOCYTES 1+ NEGATIVE ! [facility] NITRATE NEGATIVE NEGATIVE [facility] PROTEIN 30 [ 1+] mg/dL NEGATIVE ! [facility] GLUCOSE NORMAL mg/dL NORMAL [facility] KETONE NEGATIVE mg/dL NEGATIVE [facility] UROBILINOGEN NORMAL mg/dL NORMAL [facility] BILIRUBIN NEGATIVE mg/dL NEGATIVE [facility] HEMOGLOBIN 3+ NEGATIVE ! [facility] ID Date Data Source [id number] 04/22/2020 12:00:00 AM EST [facility] Name Value Range Interpretation Code Description Data Victoria rce(s) Supporting Document(s) SARS coronavirus 2 RNA [Presence] in Res piratory specimen by WILLIAN with probe detection NEGATIVE [facility] This lab was ordered by Perfecto Jamil and reported by [facility]. ID Date Data Source [id number] 04/10/2020 07:21:13 AM EST [facility] Note Status: FINAL (SIGNED)Full Name: INES JONESELLEBirth Date: 1985Visit ID: [id number] Record Number: [id number]: 34YSex: FemaleRoom Location: ER ROOMSBed Location: ER GYNDate of Service: 04/03/2020 16:07Creation Date: 04/03/2020 16:07Created By: EDGARDO CROWEPrimary Care Physician: FORTUNATO CONTRERASTime patient first seen: 1600 Informant: Patient HPI Chief Complaint: I have been having this pain in my right lower side for th epast few days and the area feels warm to me HPI onset: 2 - 3 days HPI timing: Still present; WorseHPI context: right lower abdominal pain worse with certain movement and palpation of the area She denies any radiation. She does state that she gives her self Lovenox injections daily for a PMHx of PEHPI comments: Patient denies fever, chills, sweats, weakness, myalgias, dizziness, headaches, nausea, vomiting, diarrhea, constipation, melena, hematuria, dysuria, urinary frequency, urinary urgency, rash, injury, or known sick contacts.Review of SystemsAll systems r eviewed and negative except as noted in HPIED Triage Note: c/o right sided abdominal pain with decreased appettite. denies n/v/d. [NANETTE REMY 04/03/20 13:39]Past Medical/Surgical HistoryPast medical/surgical history reviewedFull problems and procedures listProblem;Associated ICD-10-CM Code;Status;OnsetAppendectomy;None Associated;Completed;UnknownAsthma;None Associated;Active;UnknownCholecystectomy;None Associated;Completed;UnknownHypercholesterolemia;None Associated;Active;UnknownHome MedicationsHome medications reviewedLast Verified By: MADHU WALLACE on 04/03/2020 16:30cephALEXin, 500 milligram orally 3 times per day Enoxaparin, 120 milligram subcutaneously every 12 hours hydrOXYzine HCL, 50 to 100 milligram orally every day at bedtime PRN Multivitamins Tablet, 1 tablet orally daily sertraline, 50 milligram orally every evening tiZANidine, 4 milligram orally 3 times per day PRN traMADoL, 50 milligram orally every 6 hours PRN pain Allerg iesAllergies reviewedLast Verified By: NANETTE REMY RN on 04/03/2020 13:39Motrin(on blood thinner), Penicillin V(Rash) Family HistoryFamily history reviewedMother (alive) 43Y Benign essential hypertension, Father 50Y ( [place] ) Social history reviewedVital SignsVital signs reviewedMaximum temperature within the last 24 hours: 98.2 FDate/time of maximum temperature: 04/03/2020 13:37Most recent vital signsBP: 170/101 04/03/2020 13:37 Pulse: 81 04/03/2020 13:37 Temp: 98.2 F 04/03/2020 13:37 Resp: 18 04/03/2020 13:37 O2 Sat: 100.0%(Room Air) 04/03/2020 13:37 Calculated BMI: 51.4 04/03/2020 13:37 Admission height (inches): 61Admission weight (kgs): 122Triage Vital SignsTemp: 98.2F 04/03/2020 13:37 Pulse: 81 bpm 04/03/2020 13:37 Respirations: 18 04/03/2020 13:37 Blood Pressure: 170/101 mmHg 04/03/2020 13:37 O2Sat: 100 % 04/03/2020 13:37 Height: 61 in 04/03/2020 13:37 Weight: 122 kg 04/03/2020 13:37 Calculated BMI: 51.4 04/03/2020 13:37 Physical ExamConstcomments: Alert, oriented, over weight female, in nodistress, nontoxic appearing Eyes: within normal limits, PERRLHENT: Tympanic membrane normal, No nasal discharge, Oral mucosa moist/clearNeck: Within normal limits, comments: supple, nontender, normal ROM CVS: Within normal limits, Regular rate and rhythm, No rubs/gallops/murmursResp: Within normal limits, Clear to auscultation bilaterally, comments: Normal rate and effort speaks in full sentences GI comments: Soft, nondistended, normal bowel sounds There is reproducible RLQ abdominal wall tenderness with palpation The area appears to be located to a 11cm x 12cm area The skin is warm to palpaiton of the area and there is faint erythema noted no palpable masses, no lesions, no rashes Musc: Within normal limits, Joints normalExtrem: Within normal limitsSkinWithin normal limits: False, comments: as above o/w WNL Back: Within normal limits, No CVA tenderness, comments: Nontender, normal ROM OrdersStart Date;Description;Frequency;Ordered By;Status04/03/2020;ED INITIATE ABDOMINAL PAIN PATHWAY ;Once;EDGARDO CROWE;04/03/2020;IV - PERIPHERAL - INSERT & MAINTAIN ;Once;EDGARDO CROWE;04/03/2020;AMYLASE ;Once;EDGARDO CROWE;04/03/2020;CBC DIFF ;Once;EDGARDO CROWE;04/03/2020;COMPREHENSIVE PANEL ;Once;EDGARDO CROWE;04/03/2020;LIPASE ;Once;EDGARDO CROWE;04/03/2020;PT/INR ;Once;EDGARDO CROWE;04/03/2020;PTT ;Once;EDGARDO CROWE;04/03/2020;SODIUM CHLORIDE 0.9% 1,000 ML IV ;ED - ONE TIME ONLY;EDGARDO CROWE;Inactive04/04/2020;ED-NPO ;Meals;EDGARDO CROWE;Future;Point of Care /URINE ;Once;EDGARDO CROWE;;Point of Care URINE DIPSTICK ;Once;EDGARDO CROWE;;CEPHALEXIN 500 MG ORAL ;ED - ONE TIME ONLY;EDGARDO CROWE;;ACETAMINOPHEN 650 MG ORAL ;ED - ONE TIME ONLY;EDGARDO CROWE;;TRAMADOL 50 MG ORAL ;ED - ONE TIME ONLY;EDGARDO CROWE;Laboratory resultsLab Results for the past 24 hoursOrder;Test;Value;Reference Range;Comments;Status;CollectionAMYLASE;AMYLASE;45;(25-125 U/L);;Final Result ;04/03/2020 16:42:00CBC DIFF;WBC;8.2;(4.8-10.8 K/ uL);;Final Result ;04/03/2020 16:42:00CBC DIFF;RED BLOOD CELL;4.09 L;(4.20-5.40 M/uL);;Final Result ;04/03/2020 16:42:00CBC DIFF;HEMOGLOBIN;12.0;(12.0-16.0 gm/dL);;Final Result ;04/03/2020 16:42:00CBC DIFF;HEMATOCRIT;35.5 L;(36.0-48.0 %);;Final Result ;04/03/2020 16:42:00CBC DIFF;MCV;86.6;(80.0-100.0 fL);;Final Result ;04/03/2020 16:42:00CBC DIFF;MCHC;33.7;(30.0-36.5 %);;Final Result ;04/03/2020 16:42:00CBC DIFF;MCH;29.2;(27.0-34.0 pg);;Final Result ;04/03/2020 16:42:00CBC DIFF;RDW;14.1;(11.0-15.0 %);;Final Result ;04/03/2020 16:42:00CBC DIFF;PLATELET COUNT;326;(130-450 K/uL);;Final Result ;04/03/2020 16:42:00CBC DIFF;MPV;6.5;(6.0-12.0 fL);;Final Result ;04/03/2020 16:42:00CBC DIFF;NEUTROPHIL;65;(37-80 %);;Final Result ;04/03/2020 16:42:00CBC DIFF;LYMPHOCYTE;28;(10-50 %);;Final Result ;04/03/2020 16:42:00CBC DIFF;MONOCYTE;6;(0-12 %);;Final Result ;04/03/2020 16:42:00CBC DIFF;EOSINOPHIL;1;( < =8 %);;Final Result ;04/03/2020 16:42:00CBC DIFF;BASOPHIL;1;( < =3 %);;Final Result ;04/03/2020 16:42:00CBC DIFF;DEAN#;5.3;(1.8-8.6 K/uL);;Final Result ;04/03/2020 16:42:00CBC DIFF;LYMPHOCYTE #;2.3;(0.5-5.0 K/uL);;Final Result ;04/03/2020 16:42:00CBC DIFF;MONOCYTE #;0.5;(0.0-1.3 K/uL);;Final Result ;04/03/2020 16:42:00CBC DIFF;EOSINOPHIL #;0.1;(0.0-0.9 K/uL);;Final Result ;04/03/2020 16:42:00CBC DIFF;BASOPHIL #;0.1;(0.0-0.3 K/ul);;Final Result ;04/03/2020 16:42:00COMPREHENSIVE PANEL;SODIUM;141;(136-145 mmol/L);;Final Result ;04/03/2020 16:42:00COMPREHENSIVE PANEL;POTASSIUM;3.6;(3.5-5.2 mmol/L);;Final Result ;04/03/2020 16:42:00COMPREHENSIVE PANEL;CHLORIDE;108;(100-108 mmol/L);;Final Result ;04/03/2020 16:42:00COMPREHENSIVE PANEL;CARBON DIOXIDE;23;(21-32 mmol/L);;Final Result ;04/03/2020 16:42:00COMPREHENSIVE PANEL;GLUCOSE;85;(70-100 mg/dL);;Final Result ;04/03/2020 16:42:00COMPREHENSIVE PANEL;BUN;12;(7-21 mg/dL);;Final Result ;04/03/2020 16:42:00COMPREHENSIVE PANEL;Creatinine;0.8;(0.6- 1.3 mg/dL);;Final Result ;04/03/2020 16:42:00COMPREHENSIVE PANEL;CALCIUM;8.9;(8.5-10.8 mg/dL);;Final Result ;04/03/2020 16:42:00COMPREHENSIVE PANEL;GFR; > 60;;;Final Result ;04/03/2020 16:42:00COMPREHENSIVE PANEL;TOTAL BILIRUBIN;0.3;(0.0-1.2 mg/dL);;Final Result ;04/03/2020 16:42:00COMPREHENSIVE PANEL;TOTAL PROTEIN;7.4;(6.4-8.2 gm/dL);;Final Result ;04/03/2020 16:42:00COMPREHENSIVE PANEL;ALBUMIN;4.4;(3.4-4.8 gm/dL);;Final Result ;04/03/2020 16:42:00COMPREHENSIVE PANEL;ALK PHOS;124;(40-150 U/L);;Final Result ;04/03/2020 16:42:00COMPREHENSIVE PANEL;ALT(SGPT);44;(0-55 U/L);;Final Result ; 16:42:00COMPREHENSIVE PANEL;AST (SGOT);40 H;(5-37 U/L);;Final Result ;04/03/2020 16:42:00LIPASE;LIPASE;18;(8-78 U/L);;Final Result ;04/03/2020 16:42:00PT/INR;PROTIME;11.9;(9.4- 12.4 sec);;Final Result ;04/03/2020 16:42:00PT/INR;INR;1.1;;;Final Result ;04/03/2020 16:42:00PTT;PTT;30.8;(25.6-36.4 sec);;Final Result ;04/03/2020 16:42:00EKG/Rhythm Strip InterpretationProgress Time 1: 1720 Progress comments 1: Discussed the findings, diagnosis, and care plan with the patient The patient has remained hemodynamically stable here in the department Patient's workup has been reviewed and reveals no red flags The patient will be discharged home at this time Patient will continue the care plan as outlined and follow up with her primary care physician as instructed. Patient agrees.Diagnosis: Acute abdominal wall pain (? abdominal wall cellulitis)Diagnosis level 2Disposition time: 1720 Discharge condition: stable, Discharge plan: Rest, current medication, warm compresses, OTC Tylenol, Tramadol, Cephalexin, PMD f/u 1 weekDisposition: homePMP Registry comments: Patient Name: Taniya Field Date: 1985 Address: [address] [place], [place] [address] Sex: Female Rx Written Rx Dispensed Drug Quantity Days Supply Prescriber Name Payment Method Dispenser 01/18/2020 01/21/2020 hydrocodone-acetaminophen 5-325 mg tablet 10 2 Omayra Jorge (DO) Insurance [facility] #[id number] 10/15/2019 10/15/2019 tramadol hcl 50 mg tablet 9 3 Marti Fleming Insurance [facility] #[id number] Patient Name: Taniya Field Date: 1985 Address: [address] [place] [address] Sex: Female Rx Written Rx Dispensed Drug Quantity Days Supply Prescriber Name Payment Method Di byron 08/12/2019 08/12/2019 acetaminophen-cod #3 tablet 10 3 Estevan Rich MD Insurance [facility] #[id number] 07/22/2019 07/22/2019 oxycodone-acetaminophen 5-325 mg tab 14 3 Milena Moreno L Insurance [facility] #[id number] 06/21/2019 06/21/2019 oxycodone-acetaminophen 5-325 mg tab 28 7 Herman Jackson) Insurance [facility] #[id number] 03/27/2019 04/04/2019 tramadol hcl 50 mg tablet 3 1 Edgardo Crowe Insurance [facility] #[id number] 04/01/2019 04/04/2019 oxycodone-acetaminophen 5-325 mg tab 12 3 Pamela Potter A Insurance [facility] #[id number] did not require critical care timeMidlevel signature: EDGARDO CROWE [facility] signature date: 04/08/2020 22:34Attending Physician Attestation: I have reviewed the midlevel documentation, agree with the documentation, medical decision making and treatment plan as outlined by the midlevelPhysician signature: Asim MITCHELL signature date: 04/10/2020 07:20 Name Value Range Interpretation Code Description Data Victoria rce(s) Supporting Document(s) ID Date Data Source [id number] 04/03/2020 05:09:00 PM EST [facility] Name Value Range Interpretation Code Description Data Victoria rce(s) Supporting Document(s) AMYLASE 45 U/L 25-125 [facility] ID Date Data Source [id number] 04/03/2020 05:09:00 PM EST [facility] Name Value Range Interpretation Code Description Data Victoria rce(s) Supporting Document(s) LIPASE 18 U/L 8-78 [facility] ID Date Data Source [id number] 04/03/2020 05:09:00 PM EST [facility] CMP Name Value Range Interpretation Code Description Data Victoria rce(s) Supporting Document(s) SODIUM 141 mmol/L 136-145 [facility] POTASSIUM 3.6 mmol/L 3.5-5.2 [facility] CHLORIDE 108 mmol/L 100-108 [facility] CO2 23 mmol/L 21-32 [facility] GLUCOSE 85 mg/dL 70-100 [facility] BUN 12 mg/dL 7-21 [facility] CREATININE 0.8 mg/dL 0.6-1.3 [facility] Normal Kidney Function or Mild Disease - GFR >OR= 60Chronic Kidney Disease - GFR 15-59Renal Failure - GFR < 15GFR not calculated on patients under 18 years of age. CALCIUM 8.9 mg/dL 8.5-10.8 [facility] GFR >60 [facility] T BILI 0.3 mg/dL 0.0-1.2 [facility] T PROTEIN 7.4 gm/dL 6.4-8.2 [facility] ALBUMIN 4.4 gm/dL 3.4-4.8 [facility] ALK PHOS 124 U/L 40-150 [facility] ALT (SGPT) 44 U/L 0-55 [facility] AST (SGOT) 40 U/L 5-37 H [facility] ID Date Data Source [id number] 04/03/2020 05:06:00 PM EST [facility] Name Value Range Interpretation Code Description Data Victoria rce(s) Supporting Document(s) PTT 30.8 sec 25.6-36.4 [facility] ID Date Data Source [id number] 04/03/2020 05:03:00 PM EST [facility] Name Value Range Interpretation Code Description Data Victoria rce(s) Supporting Document(s) PROTIME 11.9 sec 9.4-12.4 [facility] INR 1.1 [facility] INR INTERPERTATION 2.0 -3.0 THERAPEUTIC MONITORING2.5-3.5 HEART VALVE REPLACEMENT ID Date Data Source [id number] 04/03/2020 04:53:00 PM EST [facility] CBC WITH DIFF Name Value Range Interpretation Code Description Data Victoria rce(s) Supporting Document(s) WBC 8.2 K/uL 4.8-10.8 [facility] RBC 4.09 M/uL 4.20-5.40 L [facility] HEMOGLOBIN 12.0 gm/dL 12.0-16.0 [facility] HEMATOCRIT 35.5 % 36.0-48.0 L [facility] MCV 86.6 fL 80.0-100.0 [facility] MCHC 33.7 % 30.0-36.5 [facility] MCH 29.2 pg 27.0-34.0 [facility] RDW 14.1 % 11.0-15.0 [facility] PLATELET 326 K/uL 130-450 [facility] MPV 6.5 fL 6.0-12.0 [facility] NE% 65 % 37-80 [facility] LY% 28 % 10-50 [facility] MO% 6 % 0-12 [facility] Eosinophils [#/volume] in Blood by Automated count 1 % <=8 [facility] BA% 1 % <=3 [facility] NE# 5.3 K/uL 1.8-8.6 [facility] LYMPH# 2.3 K/uL 0.5-5.0 [facility] MONO# 0.5 K/uL 0.0-1.3 [facility] EOS# 0.1 K/uL 0.0-0.9 [facility] BASO# 0.1 K/ul 0.0-0.3 [facility] ID Date Data Source [id number] 03/29/2020 05:56:[address] [address] HEALTH INFORMATION MANAGEMENT ED/UC Physician Report : [id number] Signed Patient: Taniya Field Acct:[id number] Unit: M [id number] : 1985 Arrival Date: 03/29/20 Age/Sex: 34 / F Arrival Time: 1425 Copies to: Fortunato Contreras MD Abdominal Pain HPI/ROS General Chief Complaint: Abdominal Pain- Female<40 Stated Complaint: Abd Pain Stated Complaint: Abd Pain Source: Patient and I have reviewed available Ancillary/nursing staff documentation Mode of arrival: Ambulatory Limitations: Reports No limitations History of Present Illness Initial Comments: 34-year-old female presents today for evaluation of right flank and right groin pain x2 days. States that the pain is sharp and constant. States she not have any pain with urination, however is only urinating a small amount of time. She does have a history of kidney stones and states that pain feels similar. She denies any nausea or vomiting, is drinking and eating appropriately. Denies any fevers, chest pain, shortness of breath. Denies any bowel changes. Onset/Timin Time interval: Days(s) Location: Reports R flank Radiation: Reports Groin (Right) Migration to: Reports No migration Quality: Reports Sharp Consistency: Reports Constant Improves With: Reports Nothing Worsens With: Reports Nothing Associated Symptoms: Denies Constipation, Dysuria, Fever, Hematemesis and Vomiting Related Data Home Medications Medication Instructions Recorded enoxaparin [Lovenox] 120 mg SUBCUT Q12H 03/29/20 hydroxyzine HCl 50 - 100 mg PO HSPRN PRN 03/29/20 Allergies Penicillins Allergy (Intermediate, Verified 03/29/20 14:41) RASH/HIVES ibuprofen Adverse Reaction (Severe, Verified 03/29/20 14:41) contraindication with blood thinner Review of Systems Review of Systems All systems: Reviewed and negative except as stated in HPI. General: Denies Fever and Chills Cardiac: Denies Chest pain and Palpitations Respiratory: Denies Cough, Shortness of Breath and Dyspnea on exertion GI: Reports Pain; Denies Nausea, Vomiting and Diarrhea : Reports Frequency; Denies Bleeding, Discharge and Dysuria Neuro: Denies Headache and Dizziness Skin: Denies Bruising and Itching Immunizations Immunizations Up to Date: Yes Tetanus Status: Up to Date Social History Social History Other: lives with sister and sisters children History of Smoking/Tobacco Use: Unknown if Ever Smoked Tobacco Product: Reports Cigarettes Alcohol use: Reports None Drug use: Reports None Occupation: [employer] Lives with: Reports Alone PMH/PSH Medical History (Updated 03/29/20 @ 19:12 by Blanca Adkins NP) Asthma Diverticulitis Factor 5 Leiden mutation, heterozygous Hypertension Kidney stone Pulmonary emboli Rotator cuff strain Surgical History History of appendectomy (Surgical) Hx of cholecystectomy (Surgical) Family History Other No pertinent family history Patient denies significant medical history Physical Exam Physical Exam General appearance: Alert and In no apparent distress Head Head Exam: Atraumatic and Normcephalic Cardiac Cardiac: Present: Regular rate and rhythm Heart Sounds: Present: S1 and S2 Lung/Chest Lung/Chest Exam: Clear, Normal Exchange and No chest wall tenderness Abdomen Abdominal Exam: Bowel sounds normal, Soft, Nondistended, Nontender and No guarding Back Location of Back Tenderness: CVA: Right Neuro Neuro Normal: Alert and Oriented x 3 Psych Psych Normal: Normal Affect Skin Skin exam: Dry, Intact and [place] Course Vital Signs Vital signs: Vital Signs 03/29/20 14:38 Temperature 97.8 F Pulse Rate 98 Respiratory Rate 16 Blood Pressure 143/103 H O2 Sat by Pulse Oximetry 98 Medical Decision Making/CCT Lab Data Result diagrams: 03/29/20 17:45 03/29/20 17:45 Labs reviewed: Yes Labs: Lab Results 03/29/20 Range/Units 17:45 WBC 9.09 (4.00-10.50) 10 3/uL RBC 4.46 (3.90-5.20) 10 6/uL Hgb 12.5 (11.5- 15.6) G/DL Hct 38.2 (35.0-46.0) % MCV 85.7 (80.0-100.0) FL MC H 28.0 (27.0-34.0) PG MCHC 32.7 (32-36) G/DL RDW 14.2 (11.5- 14.5) % Plt Count 328 (130-400) 10 3/uL MPV 8.9 (8.7-13.2) FL Gran % (Auto) 67.7 (42.0-75.0) % Lymph % (Auto) 25.3 (20.0-51.0) % Kidder % (Auto) 5.3 (2.0-15.0) % Eos % (Auto) 0.9 (0.0-11.0) % Baso % (Auto) 0.2 (0.0-2.0) % Nucleat RBC Rel Count Not Reportable Gran # 6.16 (1.50-6.50) 10 3/uL Lymph # (Auto) 2.3 (1.0-5.0) k/uL Kidder # (Auto) 0.48 (0.20-1.50) k/uL Eos # (Auto) 0.08 (0.00-1.10) 10 3/uL Baso # (Auto) 0.02 (0.00-0.20) 10 3/uL Immature Gran # (Auto) 0.1 (<0.5) 10 3/uL Absolute Nucleated RBC Not Reportable Immature Gran % 0.6 (1.00-5.00) % Blood Pressure Blood pressure: Pt BP not elevated Radiology Data Radiology Data Radiology results: report reviewed and image reviewed Radiology impressions: Ultrasound: Renal.INDICATION: R Flank/groin pain, r/o stone TECHNIQUE: Multiple grayscale and Color Doppler sonographic images were obtained. COMPARISON: Ultrasound dated 08/15/2019FINDINGS: The right kidney measures 10.4 x 5.7 x 3.8 cm with a cortical thickness of 1.3 cm. Contour and echo pattern of the right kidney are normal. No cystic or solid mass. No stones are identified.There is no hydronephrosis.The left kidney measures 10.6 x 5.4 x 5.2 cm with a cortical thickness of 1.6 cm.Contour and echo pattern of left kidney are normal.No cystic or solid mass. No stones are identified. There is no hydronephrosis.Bladder is incompletely distended and not well evaluated.Incidental note of fatty liver. Patient Name: Taniya Field Date:03/29/20Date of :1985Age:34Gender:FemaleMRN:[id number] Location:[facility]#:[id number] _[facility] [place] [place], [place] [address], [place] [address], [place] [address]rs[facility] [address] [place] [address] [place], [place] [phone] you for your referral. Please call us at [facility] [phone] or [facility] [phone] for any future scheduling needs.RPT:[id number] IMAG ADENA HEALTH SYSTEMIMPRESSION: Kidneys unremarkable. No stones identified. No hydronephrosis.Partially imaged liver demonstrates hepatic steatosis Discharge Plan Disposition Clinical Impression: Chronic flank pain Provider stated Dispo: Discharged Condition: Stable Instructions: Flank Pain (ED) Activity Restrictions/Additional Instructions: As discussed, your ultrasound and labs were normal today. Drink plenty of fluids. Follow-up with your primary care physician as needed. Any worsening symptoms to be re- evaluated sooner. Prescriptions: No Action hydroxyzine HCl 50 mg tablet 50 - 100 mg PO HSPRN PRN (Reason: Anxiety) RF: 0 enoxaparin [Lovenox] 120 mg/0.8 mL syringe 120 mg subcut Q12H RF: 0 Referrals: Fortunato Contreras MD [Primary Care Provider] - Patient agreeable to discharge: Patient/Guardian understands and is agreeable to discharge plan Provider in triage note Vital Signs Vital Signs: I O (Last 24 Hours) 03/27/20 03/28/20 03/29/20 23:59 23:59 23:59 Other: Weight 233 lb 11.04 oz Vital Signs (Last 8 Hours) Temp Pulse Resp BP Pulse Ox 03/29/20 14:38 97.8 F 98 16 143/103 H 98 Date/Time <<Signature on File>> Initializing User: Blanca Adkins NP 03/29/20 5554 Signed by: Blanca Adkins NP 03/29/20 1912 Elton Dobbs MD 03/30/20 0800 Name Value Range Interpretation Code Description Data Victoria rce(s) Supporting Document(s) ID Date Data Source [id number] 03/29/2020 05:45:00 PM EST [facility] Name Value Range Interpretation Code Description Data Victoria rce(s) Supporting Document(s) Potassium [Moles/volume] in Serum or Plasma 3.6 meq/L 3.5-5.3 [facility] ([facility]) Sodium [Moles/volume] in Serum or Plasma 138 meq/L 135-145 [facility] ([facility]) Chloride [Moles/volume] in Serum or Plasma 105 meq/L 94-110 [facility] ([facility]) Carbon dioxide, total [Moles/volume] in Serum or Plasma 27 meq/L 22 -33 [facility] Urea nitrogen [Mass/volume] in Serum or Plasma 15 mg/dL 7-25 [facility] ([facility]) Anion gap in Serum or Plasma 10 5-16 [facility] Glomerular filtration rate/1.73 sq M.pre dicted [Volume Rate/Area] in Serum or Plasma by Creatinine-based formula (MDRD) 81.2 mL/min [facility] ([facility]) Stage G2 - Mildly decreased kidney funct ion The GFR is an estimate of the Glomerular Filtration Rate. It is an aid to assess a patient's renal function. It is not a conclusive diagnosis of kidney disease. GFR normal is >=90 The MDRD GFR calculation is considered valid between the ages of 18 and 75 years only. Creatine [Mass/volume] in Serum or Plasma 0.8 mg/dL 0.6-1.4 [facility] ([facility]) Urea nitrogen/Creatinine [Mass Ratio] in Serum or Plasma 18 8 -36 [facility] ([facility]) Glucose [Mass/volume] in Serum or Plasma 90 mg/dL 70-100 [facility] Calcium [Mass/volume] in Serum or Plasma 9.2 mg/dL 8.7-10.5 [facility] ([facility]) ID Date Data Source [id number] 03/29/2020 05:45:00 PM EST [facility] ([facility]) Name Value Range Interpretation Code Description Data Victoria rce(s) Supporting Document(s) Leukocytes [#/volume] in Blood by Automated count 9.09 10^3/uL 4.00-1 0.50 [facility] ([facility]) Hemoglobin [Mass/volume] in Blood 12.5 g/dL 11.5-15.6 [facility] ([facility]) Erythrocytes [#/volume] in Blood by Automated count 4.46 10^6/uL 3.90 -5.20 [facility] ([facility]) Hematocrit [Volume Fraction] of Blood by Automated count 38.2 % 3 5.0-46.0 [facility] ([facility]) Erythrocyte mean corpuscular volume [Entitic volume] by Auto mated count 85.7 FL 80.0-100.0 [facility] ([facility]) Erythrocyte mean corpuscular hemoglobin concentration [Mass/volume] by Automated count 32.7 g/dL 32-36 [facility] ([facility]) Erythrocyte mean corpuscular hemoglobin [Entitic mass] by Automated count 28.0 pg 27.0-34.0 [facility] ([facility]) Erythrocyte distribution width [Ratio] by Automated count 14.2 % 11.5-14.5 [facility] ([facility]) Platelets [#/volume] in Blood by Automated count 328 10^3/uL 130-400 [facility] ([facility]) Platelet mean volume [Entitic volume] in Blood by Duran 8.9 FL 8.7-13.2 [facility] ([facility]) Lymphocytes/100 leukocytes in Blood by Automated count 25.3 % 20. 0-51.0 [facility] ([facility]) Granulocytes/100 leukocytes in Blood 67.7 % 42.0-75.0 [facility] ([facility]) Monocytes/100 leukocytes in Blood by Automated count 5.3 % 2.0-1 5.0 [facility] ([facility]) Eosinophils/100 leukocytes in Blood by Automated count 0.9 % 0.0 -11.0 [facility] ([facility]) Basophils/100 leukocytes in Blood by Automated count 0.2 % 0.0-2 .0 [facility] ([facility]) Ig % (Auto) 0.6 % 1.00-5.00 [facility]) Immature granulocytes [#/volume] in Blood 0.1 10^3/uL [facility] ([facility]) Granulocytes [#/volume] in Blood 6.16 10^3/uL 1.50-6.50 [facility] ([facility]) Lymphocytes [#/volume] in Blood by Automated count 2.3 k/uL 1.0-5.0 [facility] ([facility]) Monocytes [#/volume] in Blood by Automated count 0.48 k/uL 0.20-1.50 [facility] ([facility]) Eosinophils [#/volume] in Blood by Automated count 0.08 10^3/uL 0.00- 1.10 [facility] ([facility]) Basophils [#/volume] in Blood by Automated count 0.02 10^3/uL 0.00-0. 20 [facility] ([facility]) ID Date Data Source [id number] 03/29/2020 05:51:00 PM [facility] Name Value Range Interpretation Code Description Data Victoria rce(s) Supporting Document(s) WHITE BLOOD COUNT 9.09 10^3/uL 4.00-10.50 N [facility] ealt RED BLOOD COUNT 4.46 10^6/uL 3.90-5.[address] [facility] th HEMOGLOBIN 12.5 G/DL 11.5-15.6 N [facility] HEMATOCRIT 38.2 % 35.0-46.0 N [facility] MCV 85.7 FL 80.0-100.0 N [facility] MCH 28.0 PG 27.0-34.0 N [facility] MCHC 32.7 G/DL 32-36 N [facility] RDW 14.2 % 11.5-14.5 N [facility] PLATELET COUNT 328 10^3/uL 130-400 N [facility] MPV 8.9 FL 8.7-13.2 N [facility] GRAN % (AUTO) 67.7 % 42.0-75.0 [facility] LY[facility]H % (AUTO) 25.3 % 20.0-51.0 N [facility] MONO % (AUTO) 5.3 % 2.0-15.0 N [facility] EOS % (AUTO) 0.9 % 0.0-11.0 N [facility] BASO % (AUTO) 0.2 % 0.0-2.0 N [facility] IG % (AUTO) 0.6 % 1.00-5.00 [facility] IG # (AUTO) 0.1 10^3/uL <0.5 [facility] GRAN # (AUTO) 6.16 10^3/uL 1.50-6.50 N [facility] LYMPH # (AUTO) 2.3 k/uL 1.0-5.0 N [facility] MONO # (AUTO) 0.48 k/uL 0.20-1.50 N [facility] EOS # (AUTO) 0.08 10^3/uL 0.00-1.10 N [facility] BASO # (AUTO) 0.02 10^3/uL 0.00-0.20 N [facility] ID Date Data Source [id number] 03/29/2020 06:03:00 PM EST [facility] Name Value Range Interpretation Code Description Data Victoria rce(s) Supporting Document(s) SODIUM 138 MEQ/L 135-145 N [facility] POTASSIUM 3.6 MEQ/L 3.5-5.3 N [facility] CHLORIDE 105 MEQ/L 94-110 N [facility] CARBON DIOXIDE 27 MEQ/L 22-33 N [facility] ANION GAP 10 5-16 N [facility] BLOOD UREA NITRO 15 MG/DL 7-25 N [facility] CREATININE 0.8 MG/DL 0.6-1.4 N [facility] GFR 81.2 ML/MIN [facility] Stage G2 - Mildly decreased kidney func tion The GFR is an estimate of the Glomerular Filtration Rate. It is an aid to assess a patient's renal function. It is not a conclusive diagnosis of kidney disease. GFR normal is >=90 The MDRD GFR calculation is considered valid between the ages of 18 and 75 years only. BUN/CREAT RATIO 18 8-36 N [facility] GLUCOSE 90 MG/DL 70-100 N [facility] CA 9.2 MG/DL 8.7-10.5 N [facility] ID Date Data Source [id number] 03/29/2020 05:27:00 PM EST [facility] Name Value Range Interpretation Code Description Data Victoria rce(s) Supporting Document(s) Color of Urine Laboratory test result Abnormal (applies to non-numeric results) [facility] ([facility]) Appearance of Urine Laboratory test result Abnor mal (applies to non-numeric results) [facility] ([facility]) pH of Urine 6.0 5.0-8.0 [facility]) Specific gravity of Urine 1.016 1.002-1.035 [facility] ([facility]) Glucose [Mass/volume] in Urine Laboratory test result [facility] ([facility]) Protein [Presence] in Urine by Test strip 100 mg/dL Abnormal (applies to non- numeric results) [facility] ([facility]) Ketones [Presence] in Urine by Test strip Laboratory test result [facility] ([facility]) Leukocyte esterase [Presence] in Urine by Test strip Laboratory test result Abnormal (applies to non-numeric results) [facility]) Hemoglobin [Presence] in Urine by Test strip Laboratory test res ult Abnormal (applies to non-numeric results) [facility]) Nitrate [Presence] in Urine Laboratory test result [facility] ([facility]) Urobilin [Presence] in Urine Laboratory test result 0-0 [facility] ([facility]) Bilirubin.total [Presence] in Urine by Test strip Laboratory test res ult [facility] ([facility]) RBC,Ur Laboratory test result 0-2 Abnormal (applies to non -numeric results) [facility] ([facility]) Epithelial cells [Presence] in Urine sediment by Light microscopy Laboratory test result 0-0 [facility] ([facility]) Bacteria,Ur Laboratory test result MEDEN T ([facility]) Mucus [Presence] in Urine sediment by Light microscopy Laborator y test result [facility] ([facility]) ID Date Data Source [id number] 03/29/2020 06:37:00 PM EST [facility] Name Value Range Interpretation Code Description Data Victoria rce(s) Supporting Document(s) COLOR,UR RED YELLOW A [facility] APPEARANCE,UR CLOUDY CLEAR A [facility] PH,UR 6.0 5.0-8.0 [facility] SPECIFIC GRAVITY,UR 1.016 1.002-1.035 [facility] PROTEIN,UR 100 MG/DL NEGATIVE [facility] GLUCOSE, UR NEGATIVE MG/DL NEGATIVE [facility] KETONES,UR NEGATIVE MG/DL NEGATIVE [facility] OCCULT BLOOD,UR LARGE NEGATIVE A [facility] NITRATE,UR NEGATIVE NEGATIVE [facility] LEUKOCYTE ESTERASE ,UR TRACE NEGATIVE A [facility] BILIRUBIN,UR NEGATIVE NEGATIVE [facility] UROBILINOGEN,UR 0.2-1.0 EU MG/DL NEG-0-1.0 [facility] RBC,UR >100 PER HPF 0-2 A [facility] URINE EPITH MANY PER/LPF FEW-MOD [facility] BACTERIA,UR RARE PER HPF NONE [facility] MUCUS,UR RARE PER HPF NONE SEEN [facility] ID Date Data Source [id number] 03/22/2020 07:45:05 AM EST [facility] Note Status: FINAL (SIGNED)Full Name: Kade JONES Date: 1985Visit ID: [id number] Record Number: [id number]: 34YSex: FemaleRoom Location: ER ROOMSBed Location: ER ORTHODate of Service: 03/22/2020 07:12Creation Date: 03/22/2020 07:12Created By: [facility] Physician: FORTUNATO CONTRERASTime patient first seen: 0710 HPI Chief Complaint: Patient is a 34-year-old female presents ER with complaint of left-sided back pain for the last 2 days. Reports the pain is worse with sitting up. She denies any pain with urination. States he has a history of kidney stones but this feels different. She denies any fevers or chills. She denies any dysuria. She denies any nausea and vomiting.Review of SystemsAll systems reviewed and negative except as noted in HPIED Triage Note: pt c/o left flank pain x2 days. hx of PE and kidney stones. denies difficulty urinating. [DISHA PEREZ 03/22/20 07:13]Past Medical/Surgical HistoryPast medical/surgical history reviewedFull problems and procedures listProblem;Associated ICD-10-CM Code;Status;OnsetAppendectomy;None Associated;Completed;UnknownAsthma;None Associated;Active;UnknownCholecystectomy;None Associated;Completed;UnknownHype rcholesterolemia;None Associated;Active;UnknownHome MedicationsHome medications reviewedEnoxaparin, 120 milligram subcutaneously every 12 hours hydrOXYzine HCL, 50 to 100 milligram orally every day at bedtime PRN sertraline, 50 milligram orally daily tiZANidine, 4 milligram orally 3 times per day PRN AllergiesAllergies reviewedLast Verified By: DISHA PEREZ on 03/22/2020 07:13Motrin(on blood thinner), Penicillin V(Rash) Family HistoryFamily history reviewedMother (alive) 43Y Benign essential hypertension, Father 50Y ( [place] ) Social history reviewedVital SignsVital signs reviewedMaximum temperature within the last 24 hours: 96.6 FDate/time of maximum temperature: 03/22/2020 07:11Most recent vital signsBP: 104/91 03/22/2020 07:11 Pulse: 89 03/22/2020 07:11 Temp: 96.6 F 03/22/2020 07:11 Resp: 18 03/22/2020 07:11 O2 Sat: 100.0%(Room Air) 03/22/2020 07:11 Calculated BMI: 50 03/22/2020 07:11 Admission height (inches): 61Admission weight (kgs): 118.63Triage Vital SignsTemp: 96.6F 03/22/2020 07:11 Pulse: 89 bpm 03/22/2020 07:11 Respirations: 18 03/22/2020 07:11 Blood Pressure: 104/91 mmHg 03/22/2020 07:11 O2Sat: 100 % 03/22/2020 07:11 Height: 61 in 03/22/2020 07:11 Weight: 118.63 kg 03/22/2020 07:11 Calculated BMI: 50 03/22/2020 07:11 Physical ExamConstcomments: General: NAD, calm, cooperative, AAOx3 Eyes: EOMI, Pupils equal and reactive, No Scleral icterus Head: AT/NC, MMM and intact Neck: No lymphadenopathy, no JVD, no Thyromegaly Cardio: Regular rate and rhythm, No murmurs, Gallops, or Rubs Resp: Clear to auscultation, No wheezing, rhonchi, or rales, unlabored effort Abdomen: Soft, Non-tender, no rebound tenderness, no masses Extremities: Warm, well perfused, Cap refill <3 seconds, no C/C/E Neuro: Motor: 5/5 B/L upper and lower extremities Sensory: Grossly in tact CN2-12 intact Psych: Normal speech, no suicidal or homicidal ideations Skin: No rash, No bruising present Back: No step offs, no CVA tenderness, no spinal tenderness Reproducible left-sided paraspinal muscle tenderness.Initial impression: Low back painOrdersStart Date;Description;Frequency;Ordered By;Status03/22/2020;LIDOCAINE PATCH 5 % 1 PATCH TOP ;ONE TIME ONLY;SIERRA ELDER;Active03/22/2020;CYCLOBENZAPRINE 10 MG ORAL ;ED - ONE TIME ONLY;SIERRA ELDER;ActiveLaboratory resultsNo Lab Results for the past 24 hoursOrder;Test;Value;Reference Range;Comments;Status;CollectionEKG/Rhythm Strip InterpretationProgress Time 1: 0740 Progress comments 1: MDM: She is a 34-year-old female presents ER with paraspinal low back pain on the left. Symptoms excessive with a muscle spasm versus sciatica. Recommend muscle re laxers. Both have a trial of Lidoderm patch. She cannot receive NSAIDs secondary to being on Lovenox for pulmonary embolism.Diagnosis: Low back pain, muscle spasmsDiagnosis level 2Disposition time: 0740 Discharge condition: stable Discharge plan: Follow up with your doctor, lazaro. Disposition: homePatient did not require critical care timePhysician signature: Asim MITCHELL signature date: 03/22/2020 07:42 Name Value Range Interpretation Code Description Data Victoria rce(s) Supporting Document(s) ID Date Data Source [id number] 03/22/2020 07:12:09 AM EST [facility] Status: FINAL (SIGNED)Full Name: TANIYA JONESBirth Date: 1985Visit ID: [id number] Record Number: [id number]: 34YSex: FemaleRoom Location: ER ROOMSBed Location: ER 16Date of Service: 03/06/2020 08:33Creation Date: 03/06/2020 08:33Created By: CHAKRABORTY, [facility] Physician: FORTUNATO CONTRERASTime patient first seen: 824 Informant: PatientHPI Chief Complaint: Left lower quadrant pain that radiates to her flank.HPI onset: X3 daysScribe initial notes: 34-year-old female presents to the ED for evaluation of left lower quadrant pain that radiates to her left flank. Patient states it started 3 days ago and worsened last night and this morning. Patient states she is having hematuria. Patient denies dysuria. She describes the pain as sharp. Patient states her bowel movements are normal and her last one was yesterday brown in color. Patient denies diarrhea, vaginal discharge, possibility of . Was last week. Patient has a history of kidney stones and had a stent placed approximately 3 years ago. She follows Dr. Lang for urology.Review of SystemsAll systems reviewed and negative except as noted in HPIED Triage Note: Pt presents with LLQ tenderness radiating to left flank x 4 days. Pt denies CP N/V/D urinary retention pain with urination. Pt had her appendix and gallbladder removed years ago. Pt is alert oriented ambulatory. [LUPILLO KUHN 03/06/20 08:07]Past Medical/Surgical HistoryPast medical/surgical history reviewedFull problems and procedures listProblem;Associated ICD-10-CM Code;Status;OnsetAppendectomy;None Associated;Completed;UnknownAsthma;None Associated;Active;UnknownCholecystectomy;None Associated;Completed;UnknownHypercholesterolemia;None Associated;Active;UnknownHome MedicationsHome medications reviewedEnoxaparin, 120 milligram subcutaneously every 12 hours hydrOXYzine HCL, 50 to 100 milligram orally every day at bedtime PRN sertraline, 50 milligram orally daily tiZANidine, 4 milligram orally 3 times per day PRN AllergiesAllergies reviewedMotrin(on blood thinner), Penicillin V(Rash) Family HistoryFamily history reviewedMother (alive) 43Y Benign essential hypertension, Father 50Y ( [place] ) Social history reviewedVital SignsVital signs reviewedMaximum temperature within the last 24 hours: 97.4 FDate/time of maximum temperature: 03/06/2020 08:03Most recent vital signsBP: 153/96 03/06/2020 08:03 Pulse: 76 03/06/2020 08:03 Temp: 97.4 F 03/06/2020 08:03 Resp: 16 03/06/2020 08:03 O2 Sat: 100.0%(Room Air) 03/06/2020 08:03 Calculated BMI: 46 03/06/2020 08:03 Admission height (inches): 63Admission weight (kgs): 118Triage Vital SignsTemp: 97.4F 03/06/2020 08:03 Pulse: 76 bpm 03/06/2020 08:03 Respirations: 16 03/06/2020 08:03 Blood Pressure: 153/96 mmHg 03/06/2020 08:03 O2Sat: 100 % 03/06/2020 08:03 Height: 63 in 03/06/2020 08:03 Weight: 118 kg 03/06/2020 08:03 Calculated BMI: 46 03/06/2020 08:03 Physical ExamConstcomments: Morbidly obese,, comments: 34-year-old female presents the ED for evaluation of left lower abdominal and left flank pain.Eyes: extraocular movements intact, no conjunctival injection, comments: No nystagmus, no entrapmentHENT: Normocephalic atraumatic, comments: Face is symmetricalNeckcomments: SuppleCVS: Regular rate and rhythm, No rubs/gallops/murmursResp: Talks in phrases, Clear to auscultation bilaterally, No wheezes/rales/rhonchiGI comments: Left lower quadrant tenderness that radiates to left flank tender with palpationMusc: Range of motion normal, comments: Moves all extremitiesExtremcomments: Normal inspectionNeuro: No lateralizing deficits, comments: Awake, alert and interactivePsychcomments: Pleasant and cooperativeGUcomments: Not examinedSkincomments: Warm and dryBackcomments: Left-sided CVA tendernessPulses Exam:Left radial pulse: 2 plusInitial impression: , renal calculus, UTI, polynephritisOrdersStart Date;Description;Frequency;Ordered By;Gotcam5803/06/2020;CT-ABD PELVIS NO CONTRAST (DRY) ;Once;OMAYRA JORGE;Cdduudkkhics95/22/2020;BASIC METABOLIC PANEL ;Once;OMAYRA JORGE;Today03/06/2020;CBC DIFF ;Once;OMAYRA JORGE;Today03/06/2020;LIPASE ;Once;OMAYRA JORGE;Today03/06/2020; TEST - SERUM ;Once;OMAYRA JORGE;Today03/06/2020;CULTURE URINE ;O nce;OMAYRA JORGE;Today03/06/2020;URINALYSIS ROUTINE ;Once;OMAYRA JORGE;Today03/06/2020;URINE MICROSCOPIC ;Once;OMAYRA JORGE;Today03/06/2020;SODIUM CHLORIDE 0.9% 1,000 ML IV ;ED - ONE TIME ONLY;OMAYRA JORGE;Dlwusqwm53/22/2020;SODIUM CHLORIDE 0.9% 500 ML IV ;ED - ONE TIME ONLY;OMAYRA JORGE;Vqojfiml28/22/2020;RENAL/BLADDER U/S LIMITED ;Once;OMAYRA JORGE;Today03/06/2020;PT/INR ;Once;OMAYRA JORGE;Today03/06/2020;PTT ;Once;OMAYRA JORGE;Today03/06/2020;MORPHINE 4 MG/1 ML IVP ;ED - ONE TIME ONLY;OMAYRA JORGE;InactiveLaboratory resultsLab Results for the past 24 hoursOrder;Test;Value;Reference Range;Comments;Status;CollectionURINALYSIS ROUTINE;Dipstick Urine Color;LUIS M;;;Final Result ; 08:40:04URINALYSIS ROUTINE;Dipstick Urine Turbidity;TURBID;;;Final Result ;03/06/2020 08:40:04URINALYSIS ROUTINE;Dipstick Specific [place];1.020;(1.000-1.030);;Final Result ;03/06/2020 08:40:04URINALYSIS ROUTINE;Dipstick Urine pH;5.0;(5.0- 8.0);;Final Result ;03/06/2020 08:40:04URINALYSIS ROUTINE;Dipstick Urine Leucoesterase;2 ;;;Final Result ;03/06/2020 08:40:04URINALYSIS ROUTINE;Dipstick Urine Nitrate;POSITIVE;;;Final Result ;03/06/2020 08:40:04URINALYSIS R OUTINE;Dipstick Urine Protein;100 [ 2 ];;;Final Result ;03/06/2020 08:40:04URINALYSIS ROUTINE;Dipstick Urine Glucose;NORMAL;;;Final Result ;03/06/2020 08:40:04URINALYSIS ROUTINE;Dipstick Urine Ketone;NEGATIVE;;;Final Result ;03/06/2020 08:40:04URINALYSIS ROUTINE;Dipstick Urine Urobilinogen;NORMAL;;;Final Result ;03/06/2020 08:40:04URINALYSIS ROUTINE;Dipstick Urine Bili;NEGATIVE;;;Final Result ;03/06/2020 08:40:04URINALYSIS ROUTINE;Dipstick Urine Hgb;3 ;;;Final Result ;03/06/2020 08:40:04URINE MICROSCOPIC;Microscopic Urine WBC;25-50;;;Final Result ;03/06/2020 08:40:04URINE MICROSCOPIC;Microscopic Urine RBC; > 100;;;Final Result ;03/06/2020 08:40:04URINE MICROSCOPIC;Microscopic Urine BACT;[place];;;Final Result ;03/06/2020 08:40:04URINE MICROSCOPIC;Microscopic Urine Epi;MODERATE;;;Final Result ;03/06/2020 08:40:04URINE MICROSCOPIC;Microscopic Urine Amorphous Sediment;1 ;;;Final Result ;03/06/2020 08:40:04BASIC METABOLIC PANEL;SODIUM;139;(136-145 mmol/L);;Final Result ;03/06/2020 08:30:00BASIC METABOLIC PANEL;POTASSIUM;3.9;(3.5-5.2 mmol/L);;Final Result ;03/06/2020 08:30:00BASIC METABOLIC PANEL;CHLORIDE;106;(100-108 mmol/L);;Final Result ;03/06/2020 08:30:00BASIC METABOLIC PANEL;CARBON DIOXIDE;25;(21-32 mmol/L);;Final Result ;03/06/2020 08:30:00BASIC METABOLIC PANEL;GLUCOSE;107 H;(70-100 mg/dL);;Final Result ;03/06/2020 08:30:00BASIC METABOLIC PANEL;BUN;14;(7-21 mg/dL);;Final Result ;03/06/2020 08:30:00BASIC METABOLIC PANEL;Creatinine;0.8;(0.6-1.3 mg/dL);;Final Result ;03/06/2020 08:30:00BASIC METABOLIC PANEL;C ALCIUM;8.9;(8.5-10.8 mg/dL);;Final Result ;03/06/2020 08:30:00BASIC METABOLIC PANEL;GFR; > 60;;;Final Result ;03/06/2020 08:30:00CBC DIFF;WBC;7.7;(4.8-10.8 K/uL);;Final Result ;03/06/2020 08:30:00CBC DIFF;RED BLOOD CELL;4.48;(4.20-5.40 M/uL);;Final Result ;03/06/2020 08:30:00CBC DIFF;HEMOGLOBIN;12.6;(12.0-16.0 gm/dL);;Final Result ;03/06/2020 08:30:00CBC DIFF;HEMATOCRIT;38.4;(36.0-48.0 %);;Final Result ;03/06/2020 08:30:00CBC DIFF;MCV;85.9;(80.0-100.0 fL);;Final Result ;03/06/2020 08:30:00CBC DIFF;MCHC;32.9;(30.0- 36.5 %);;Final Result ;03/06/2020 08:30:00CBC DIFF;MCH;28.2;(27.0-34.0 pg);;Final Result ;03/06/2020 08:30:00CBC DIFF;RDW;13.7;(11.0-15.0 %);;Final Result ;03/06/2020 08:30:00CBC DIFF;PLATELET COUNT;277;(130-450 K/uL);;Final Result ;03/06/2020 08:30:00CBC DIFF;MPV;6.5;(6.0-12.0 fL);;Final Result ;03/06/2020 08:30:00CBC DIFF;NEUTROPHIL;63;(37-80 %);;Final Result ;03/06/2020 08:30:00CBC DIFF;LYMPHOCYTE;27;(10-50 %);;Final Result ;03/06/2020 08:30:00CBC DIFF;MONOCYTE;7;(0-12 %);;Final Result ;03/06/2020 08:30:00CBC DIFF;EOSINOPHIL;2;( < =8 %);;Final Result ;03/06/2020 08:30:00CBC DIFF;BASOPHIL;0;( < =3 %);;Final Result ;03/06/2020 08:30:00CBC DIFF;DEAN#;4.9;(1.8-8.6 K/uL);;Final Result ;03/06/2020 08:30:00CBC DIFF;LYMPHOCYTE #;2.1;(0.5-5.0 K/uL);;Final Result ;03/06/2020 08:30:00CBC DIFF;MONOCYTE #;0.6;(0.0-1.3 K/uL);;Final Result ;03/06/2020 08:30:00CBC DIFF;EOSINOPHIL #;0.1;(0.0-0.9 K/uL);;Final Result ;03/06/2020 08:30:00CBC DIFF;BASOPHIL #;0.0;(0.0-0.3 K/ul);;Final Result ;03/06/2020 08:30:00LIPASE;LIPASE;24;(8-78 U/L);;Final Result ;03/06/2020 08:30:00PREGNANCY TEST - SERUM; TEST - SERUM;NEGATIVE;;;Final Result ;03/06/2020 08:30:00Ultrasound results: 03/06/2020 9:50 AM RENAL ULTRASOUND CLINICAL INFORMATION: -- Left flank pain COMPARISON: 03/03/2020 CT TECHNIQUE: Sonographic evaluation of the kidneys and bladder was performed using grayscale ultrasound. FINDINGS: Right Kidney: Measures 9.9 cm. Parenchyma: Normal homogeneous echotexture. Hydronephrosis: None. Calculi: None. Focal Lesions: None. Left Kidney: Measures 10.2 cm. Parenchyma: Normal homogeneous echotexture. Hydronephrosis: None. Calculi: None. Focal Lesions: None. Aorta: Non-aneurysmal. Inferior Vena Cava: Patent. Bladder: No discrete bladder wall thickening. Jets: Bilateral ureteral jets are documented. Prevoid Volume: 69 mL Postvoid Residual Volume: 5 mL Miscellaneous: None. IMPRESSION: No hydronephrosis or nephrolithiasis. END OF IMPRESSION [facility] submits Radiology results to [facility] and [facility] then provides those same results to [facility]. All results are available to [facility] and [facility] provider portal users. [facility] DICOM images are available to the [facility] provider portal users only. [facility] DICOM images are not available to the [facility] provider portal users. There is no current [facility] cross-[facility] functionality allowing images to be available through the [facility] to [facility] connectivity. Electronically signed By: Rosaura Stephens M.D. Read By: ROSAURA STEPHENS Date: 03/06/2020 10:00 EKG/Rhythm Strip InterpretationProgress Time 1: 0835 Progress comments 1: Patient states she took Tylenol at 0430 this morning. Patient states she is unable to take ibuprofen because she is currently on Lovenox for a PE. PT/INR/PTT has been added to labs. Patient has been seen several times over the last month with similar complaints post recently on 03/03/2020 all of these records have been reviewed.Progress time 2: 1040 Progress comments 2: Discussed with pharmacy to do a one-time gentamicin load. I will send her home on Keflex for 10 days to treat for pyelonephritis. She had no hydronephrosis on ultrasound today nor any stone on CAT scan from the last 2 days . I did advise her that antibiotics with blood thinners can alter the bleeding so if she begins to bleed she should speak to her doctor and may need a dose adjustment . she can follow-up with primary care as an outpatientDiagnosis: Pyelonephritis; left flank painDiagnosis level 4Disposition time: 1045 Discharge condition: StableDischarge plan: Tylenol; KeflexCare transferred to DrEligio Ramposition: homePatient did not require critical care timeActing as scribe in the presence of: Michelle Jensen signature: Asim JOHNSON signature date: 03/06/2020 10:46 Name Value Range Interpretation Code Description Data Victoria rce(s) Supporting Document(s) ID Date Data Source [id number] 03/18/2020 04:12:04 PM EST [facility] Note Status: FINAL (SIGNED)Full Name: TANIYA JONESBirth Date: 1985Visit ID: [id number] Record Number: [id number]: 34YSex: FemaleRoom Location: ER ROOMSBed Location: ER 10Date of Service: 03/03/2020 19:27Creation Date: 03/03/2020 19:27Created By: EDGARDO CROWEPrimary Care Physician: NONE, NONETime patient first seen: 1924 Informant: Patient HPI Chief Complaint: I have been having this pain in my left side for the past 2 days that travels around in my left groin, and I am worried it might be a kidney stone HPI onset: 2 days HPI timing: Still presentHPINo modifying factors: NoneHPI comments: Patient denies fever, chills, sweats, weakness, myalgias, dizziness, headaches, nausea, vomiting, diarrhea, constipation, melena, dysuria, urinary frequency, urinary urgency, vaginal bleeding, vaginal discharge, , rash, injury, or known sick contacts.Review of SystemsAll systems reviewed and negative except as noted in HPIED Triage Note: left lower back and flank pain has history of kidney stones [ORALIA PALACIOS 03/03/20 18:11]Past Medical/Surgical HistoryPast medical/surgical history reviewedFull problems and procedures listProblem;Associated ICD-10-CM Code;Status;OnsetAppendectomy;None Associated;Completed;UnknownAsthma;None Associated;Active;UnknownCholecystectomy;None Associated;Completed;UnknownHypercholesterolemia;None Associated;Active;UnknownHome MedicationsHome medications reviewedEnoxaparin, 120 milligram subcutaneously every 12 hours hydrOXYzine HCL, 50 to 100 milligram orally every day at bedtime PRN sertraline, 50 milligram orally daily tiZANidine, 4 milligram orally 3 times per day PRN AllergiesAllergies reviewedLast Verified By: ORALIA PALACIOS RN on 03/03/2020 18:11Motrin(on blood thinner), Penicillin V(Rash) Family HistoryFamily history reviewedMother (alive) 43Y Benign essential hypertension, Father 50Y ( [place] ) Social history reviewedVital SignsVital signs reviewedMaximum temperature within the last 24 hours: 97.6 FDate/time of maximum temperature: 03/03/2020 18:09Most recent vital signsBP: 142/116 03/03/2020 18:09 Pulse: 90 03/03/2020 18:09 Temp: 97.6 F 03/03/2020 18:09 Resp: 20 03/03/2020 18:09 O2 Sat: 97.0% 03/03/2020 18:09 Calculated BMI: 49.7 03/03/2020 18:09 Admission height (inches): 61Admission weight (kgs): 118Triage Vital SignsTemp: 97.6F 03/03/2020 18:09 Pulse: 90 bpm 03/03/2020 18:09 Respirations: 20 03/03/2020 18:09 Blood Pressure: 142/116 mmHg 03/03/2020 18:09 O2Sat: 97 % 03/03/2020 18:09 Height: 61 in 03/03/2020 18:09 Weight: 118 kg 03/03/2020 18:09 Calculated BMI: 49.7 03/03/2020 18:09 Physical ExamConstcomments: Alert, oriented, obese female, in no distress, nontoxic appearing Eyes: within normal limitsHENT: Within normal limitsNeck: Within normal limits, comments: supple, nontender, normal ROM CVS: Within normal limits, Regular rate and rhythm, No rubs/gallops/murmursResp: Within normal limits, Clear to auscultation bilaterally, No wheezes/rales/rhonchiGI: Within normal limits, Non-tender, Normal bowel soundsMusc: Within normal limits, Joints normal, Range of motion normalExtrem: Within normal limitsSkin: Within normal limits, No rash, No bruisingBackcomments: Left CVA tenderness is appreciated there is no soft tissue spasm, no lesions, no midline deformity, no palpable step off normal truncal ROM WNL OrdersStart Date;Description;Frequency;Ordered By;[id number]/03/2020;CT- ABD PELVIS NO CONTRAST (DRY) ;Once;EDGARDO CROWE;Today03/03/2020;STRAIN URINE, SAVE STONE ;Once;EDGARDO CROWE;Today03/03/2020;CBC DIFF ;Once;EDGARDO CROWE;Today03/03/2020;COMPREHENSIVE PANEL ;Once;EDGARDO CROWE;Today03/03/2020;HYDROCODONE-ACETAMINOPHEN 5-325MG 1 TAB ORAL ;ED - ONE TIME ONLY;EDGARDO CROWE;Kvgaigbu19/19/2020;Point of Care /URINE ;Once;EDGARDO CROWE;03/03/2020;Point of Care URINE DIPSTICK ;Once;EDGARDO CROWE;03/03/2020;CULTURE URINE ;Once;EDGARDO CROWE;03/03/2020;URINALYSIS ROUTINE ;Once;EDGARDO CROWE;03/03/2020;URINE MICROSCOPIC ;Once;EDGARDO CROWE;TodayLaboratory resultsLab Results for the past 24 hoursOrder;Test;Value;Reference Range;Comments;Status;CollectionCBC DIFF;WBC;7.9;(4.8-10.8 K/uL);;Final Result ;03/03/2020 19:55:00CBC DIFF;RED BLOOD CELL;4.19 L ;(4.20-5.40 M/uL);;Final Result ;03/03/2020 19:55:00CBC DIFF;HEMOGLOBIN;12.6;(12.0-16.0 gm/dL);;Final Result ;03/03/2020 19:55:00CBC DIFF;HEMATOCRIT;36.5;(36.0-48.0 %);;Final Result ;03/03/2020 19:55:00CBC DIFF;MCV;87.1;(80.0- 100.0 fL);;Final Result ;03/03/2020 19:55:00CBC DIFF;MCHC;34.5;(30.0-36.5 %);;Final Result ;03/03/2020 19:55:00CBC DIFF;MCH;30.0;(27.0-34.0 pg);;Final Result ;03/03/2020 19:55:00CBC DIFF;RDW;14.2;(11.0-15.0 %);;Final Result ;03/03/2020 19:55:00CBC DIFF;PLATELET COUNT;282;(130- 450 K/uL);;Final Result ;03/03/2020 19:55:00CBC DIFF;MPV;6.3;(6.0-12.0 fL);;Final Result ;03/03/2020 19:55:00CBC DIFF;NEUTROPHIL;63;(37-80 %);;Final Result ;03/03/2020 19:55:00CBC DIFF;LYMPHOCYTE;27;(10-50 %);;Final Result ;03/03/2020 19:55:00CBC DIFF;MONOCYTE;8;(0-12 %);;Final Result ;03/03/2020 19:55:00CBC DIFF;EOSINOPHIL;2;( < =8 %);;Final Result ;03/03/2020 19:55:00CBC DIFF;BASOPHIL;0;( < =3 %);;Final Result ;03/03/2020 19:55:00CBC DIFF;DEAN#;5.0;(1.8-8.6 K/uL);;Final Result ;03/03/2020 19:55:00CBC DIFF;LYMPHOCYTE #;2.2;(0.5-5.0 K/uL);;Final Result ;03/03/2020 19:55:00CBC DIFF;MONOCYTE #;0.6;(0.0-1.3 K/uL);;Final Result ;03/03/2020 19:55:00CBC DIFF;EOSINOPHIL #;0.1;(0.0-0.9 K/uL);;Final Result ;03/03/2020 19:55:00CBC DIFF;BASOPHIL #;0.0;(0.0-0.3 K/ul);;Final Result ;03/03/2020 19:55:00COMPREHENSIVE PANEL;SODIUM;138;(136-145 mmol/L);;Final Result ;03/03/2020 19:55:00COMPREHENSIVE PANEL;POTASSIUM;3.8;(3.5-5.2 mmol/L);;Final Result ;03/03/2020 19:55:00COMPREHENSIVE PANEL;CHLORIDE;107;(100-108 mmol/L);;Final Result ;03/03/2020 19:55:00COMPREHENSIVE PANEL;CARBON DIOXIDE;22;(21-32 mmol/L);;Final Result ;03/03/2020 19:55:00COMPREHENSIVE PANEL;GLUCOSE;93;(70-100 mg/dL);;Final Result ;03/03/2020 19:55:00COMPREHENSIVE PANEL;BUN;15;(7-21 mg/dL);;Final Result ;03/03/2020 19:55:00COMPREHENSIVE PANEL;Creatinine;0.7;(0.6-1.3 mg/dL);;Final Result ;03/03/2020 19:55:00COMPREHENSIVE PANEL;CALCIUM;9.7;(8.5-10.8 mg/dL);;Final Result ;03/03/2020 19:55:00COMPREHENSIVE PANEL;GFR; > 60;;;Final Result ;03/03/2020 19:55:00COMPREHENSIVE PANEL;TOTAL BILIRUBIN;0.2;(0.0-1.2 mg/dL);;Final Result ;03/03/2020 19:55:00COMPREHENSIVE PANEL;TOTAL PROTEIN;7.3;(6.4-8.2 gm/dL);;Final Result ;03/03/2020 19:55:00CO MPREHENSIVE PANEL;ALBUMIN;4.0;(3.4-4.8 gm/dL);;Final Result ;03/03/2020 19:55:00COMPREHENSIVE PANEL;ALK PHOS;119;(40-150 U/L);;Final Result ;03/03/2020 19:55:00COMPREHENSIVE PANEL;ALT(SGPT);50;(0-55 U/L);;Final Result ;03/03/2020 19:55:00COMPREHENSIVE PANEL;AST (SGOT);44 H;(5-37 U/L);;Final Result ;03/03/2020 19:55:00URINALYSIS ROUTINE;Dipstick Urine Color;LUIS M;;;Final Result ;03/03/2020 19:40:00URINALYSIS ROUTINE;Dipstick Urine Turbidity;HAZY;;;Final Result ;03/03/2020 19:40:00URINALYSIS ROUTINE;Dipstick Specific [place];1.025;(1.000-1.030);;Final Result ;03/03/2020 19:40:00URINALYSIS ROUTINE;Dipstick Urine pH;6.0;(5.0-8.0);;Final Result ;03/03/2020 19:40:00URINALYSIS ROUTINE;Dipstick Urine Leucoesterase;2 ;;;Final Result ;03/03/2020 19:40:00URINALYSIS ROUTINE;Dipstick Urine Nitrate;NEGATIVE;;;Final Result ;03/03/2020 19:40:00URINALYSIS ROUTINE;Dipstick Urine Protein;100 [ 2 ];;;Final Result ;03/03/2020 19:40:00URINALYSIS ROUTINE;Dipstick Urine Glucose;NORMAL;;;Final Result ;03/03/2020 19:40:00URINALYSIS ROUTINE;Dipstick Urine Ketone;TRACE;;;Final Result ;03/03/2020 19:40:00URINALYSIS ROUTINE;Dipstick Urine Urobilinogen;1;;;Final Result ;03/03/2020 19:40:00URINALYSIS ROUTINE;Dipstick Urine Bili;NEGATIVE;;;Final Result ;03/03/2020 19:40:00URINALYSIS ROUTINE;Dipstick Urine Hgb;3 ;;;Final Result ;03/03/2020 19:40:00URINE MICROSCOPIC;Microscopic Urine WBC;10-25;;;Fi nal Result ;03/03/2020 19:40:00URINE MICROSCOPIC;Microscopic Urine RBC; > 100;;;Final Result ;03/03/2020 19:40:00URINE MICROSCOPIC;Microscopic Urine BACT;FEW;;;Final Result ;03/03/2020 19:40:00URINE MICROSCOPIC;Microscopic Urine Epi;FEW;;;Final Result ;03/03/2020 19:40:00RSLTS laboratory comments: urine culture pendingCT results: 03/03/2020 8:[address] ABDOMEN AND PELVIS WITHOUT CONTRAST CLINICAL INFORMATION: CT - ABD PELVIS NO CONTRAST -- Flank pain COMPARISON: CT abdomen pelvis 01/16/2020 PROCEDURE: Contiguous images were obtained through the abdomen and pelvis without intravenous contrast. Automated exposure control, adjustment of the mA and/or kV according to patient size, and/or iterative reconstruction techniques were utilized for radiation dose optimization. FINDINGS: Chest Base: Unremarkable. Liver/Biliary Tract: Hepatic steatosis. Status post cholecystectomy. Pancreas: Unremarkable. Spleen: Unremarkable. Adrenals: Unremarkable. Kidneys and Collecting Systems: No hydronephrosis or urinary tract calculi bilaterally. Lymph Nodes: Unremarkable. Vessels: Unremarkable for age. GI Tract/Mesentery and Peritoneal Cavity: Status post appendectomy. Sigmoid diverticulosis. No evidence of bowel obstruction. Uterus/Ovaries: Unremarkable. Bladder: Nondistended bladder. Soft Tissues/Musculoskeletal: No acute abnormality. IMPRESSION: Images are mildly degraded due to motion artifact. No hydronephrosis or urinary tract calculi bilaterally. Hepatic steatosis. END OF IMPRESSION I have personally reviewed the images and the Resident's/Fellow's interpretation and agree with or edited the findings. [facility] submits Radiology results to [facility] and [facility] then provides those same results to [facility]. All results are available to [facility] and [facility] provider portal users. [facility] DICOM images are available to the [facility] provider portal users only. [facility] DICOM images are not available to the [facility] provider portal users. There is no current [facility] cross-[facility] functionality allowing images to be available through the [facility] to [facility] connectivity. Interpreted By: Shalonda Jade M.D. Electronically signed By: Mendy Castellon M.D. Read By: MENDY CASTELLON Date: 03/03/2020 20:31 EKG/Rhythm Strip InterpretationProgress Time 1: 2044 Progress comments 1: The patient has remained hemodynamically stable here in the department Patient's workup has been reviewed and reveals no red flags The patient will be discharged home at this time Patient will continue the care plan as outlined and follow up with her primary care physician as instructed. Patient agrees.Diagnosis: Acute on chronic flank pain Diagnosis level 2Disposition time: 2044 Discharge condition: stable, Discharge plan: Rest, fluids, warm compresses, OTC Tylenol, PMD f/u this coming week [facility]: Patient Name: Taniya Field Date: 1985 Address: [address] [place] [id number] Sex: Female Rx Written Rx Dispensed Drug Quantity Days Supply Prescriber Name Payment Method Dispenser 01/18/2020 01/21/2020 hydrocodone-acetaminophen 5-325 mg tablet 10 2 Omayra Jorge (DO) Insurance [facility] #[id number] 10/15/2019 10/15/2019 tramadol hcl 50 mg tablet 9 3 LonnieMarti Insurance [facility] #[id number] Patient Name: Taniya Field Date: 1985 Address: [address] [place] [address] Sex: Female Rx Written Rx Dispensed Drug Quantity Days Supply Prescriber Name Payment Method Dispenser 08/12/2019 08/12/2019 acetaminophen-cod #3 tablet 10 3 Estevan Rich MD Insurance [facility] #[id number] 07/22/2019 07/22/2019 oxycodone-acetaminophen 5-325 mg tab 14 3 Milena Moreno L Insurance [facility] #[id number] 06/21/2019 06/21/2019 oxycodone-acetaminophen 5-325 mg tab 28 7 Herman Jackson) Insurance [facility] #[id number] 03/27/2019 04/04/2019 tramadol hcl 50 mg tablet 3 1 Edgardo Crowe Insurance [facility] #[id number] 04/01/2019 04/04/2019 oxycodone- acetaminophen 5-325 mg tab 12 3 Pamela Potter A Insurance [facility] #[id number] did not require critical care timeMidlevel signature: EDGARDO CROWE [facility] signature date: 03/08/2020 23:11Attending Physician Attestation: I have reviewed the midlevel documentation, agree with the documentation, medical decision making and treatment plan as outlined by the midlevelPhysician signature: NANI MOSQUERA [facility] signature date: 03/18/2020 16:10 Name Value Range Interpretation Code Description Data Victoria rce(s) Supporting Document(s) ID Date Data Source [id number] 03/08/2020 08:35:00 AM EST [facility] CULTURE OBSERVATIONS 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 [facility] RBC >100 /HPF NONE SEEN ! [facility] [employer] has definedMicroscopic Hematuria as 3 or more RBC per highpowered field from a single positive urinalysis withmicroscopy. BACTERIA MANY /HPF NONE SEEN ! [facility] EPITHELIAL CELLS MODERATE /HPF NONE SEEN ! [facility] spital AMORPHOUS SEDIMENT 1+ /HPF NONE SEEN ! [facility] ital ID Date Data Source [id number] 03/06/2020 08:47:00 AM EST [facility] Name Value Range Interpretation Code Description Data Victoria rce(s) Supporting Document(s) COLOR LUIS M [facility] APPEARANCE TURBID CLEAR ! [facility] SPECIFIC GRAVITY 1.020 1.000-1.030 [facility] ital pH 5.0 5.0-8.0 [facility] LEUKOCYTES 2+ NEGATIVE ! [facility] NITRATE POSITIVE NEGATIVE ! [facility] PROTEIN 100 [ 2+] mg/dL NEGATIVE ! [facility] l GLUCOSE NORMAL mg/dL NORMAL [facility] KETONE NEGATIVE mg/dL NEGATIVE [facility] UROBILINOGEN NORMAL mg/dL NORMAL [facility] l BILIRUBIN NEGATIVE mg/dL NEGATIVE [facility] HEMOGLOBIN 3+ NEGATIVE ! [facility] ID Date Data Source [id number] 03/06/2020 10:03:57 AM EST [facility] 03/06/2020 9:50 AMRENAL ULTRASOUNDCLINIC AL INFORMATION: -- Left flank painCOMPARISON: 03/03/2020 CTTECHNIQUE: Sonographic evaluation of the kidneys and bladder was performedusing grayscale ultrasound.FINDINGS:Right Kidney: Measures 9.9 cm.Parenchyma: Normal homogeneous echotexture.Hydronephrosis: None.Calculi: None.Focal Lesions: None.Left Kidney: Measures 10.2 cm.Parenchyma: Normal homogeneous echotexture.Hydronephrosis: None.Calculi: None.Focal Lesions: None.Aorta: Non-aneurysmal.Inferior Vena Cava: Patent.Bladder: No discrete bladder wall thickening.Jets: Bilateral ureteral j ets are documented.Prevoid Volume: 69 mLPostvoid Residual Volume: 5 mLMiscellaneous: None.IMPRESSION:No hydronephrosis or nephrolithiasis.END OF IMPRESSIONM[facility] then provides those same results to [facility]. Allresults are available to [facility] and [facility] provider portalusers. [facility] DICOM images are available to [facility] provider portal users only. [facility] DICOMimages are not available to the [facility] provider portal users. There isno current [facility] cross-[facility] functionality allowing images to be available throughthe IO to [facility] connectivity.Electronically signed By: Rosaura Stephens M.D.Read By: ROSAURA STEPHENSDate: 03/06/2020 10:00 Name Value Range Interpretation Code Description Data Victoria rce(s) Supporting Document(s) ID Date Data Source [id number] 03/06/2020 08:55:00 AM EST [facility] Name Value Range Interpretation Code Description Data Victoria rce(s) Supporting Document(s) SERUM TEST NEGATIVE [facility] spital PREGS METHODOLOGY [facility] ID Date Data Source [id number] 03/06/2020 08:53:00 AM EST [facility] Name Value Range Interpretation Code Description Data Victoria rce(s) Supporting Document(s) LIPASE 24 U/L 8-78 [facility] ID Date Data Source [id number] 03/06/2020 08:53:00 AM EST [facility] Name Value Range Interpretation Code Description Data Victoria rce(s) Supporting Document(s) SODIUM 139 mmol/L 136-145 [facility] POTASSIUM 3.9 mmol/L 3.5-5.2 [facility] CHLORIDE 106 mmol/L 100-108 [facility] CO2 25 mmol/L 21-32 [facility] GLUCOSE 107 mg/dL 70-100 H [facility] BUN 14 mg/dL 7-21 [facility] CREATININE 0.8 mg/dL 0.6-1.3 [facility] Normal Kidney Function or Mild Disease - GFR >OR= 60Chronic Kidney Disease - GFR 15-59Renal Failure - GFR < 15GFR not calculated on patients under 18 years of age. CALCIUM 8.9 mg/dL 8.5-10.8 [facility] GFR >60 [facility] ID Date Data Source [id number] 03/06/2020 08:43:00 AM EST [facility] Name Value Range Interpretation Code Description Data Victoria rce(s) Supporting Document(s) WBC 7.7 K/uL 4.8-10.8 [facility] RBC 4.48 M/uL 4.20-5.40 [facility] HEMOGLOBIN 12.6 gm/dL 12.0-16.0 [facility] HEMATOCRIT 38.4 % 36.0-48.0 [facility] MCV 85.9 fL 80.0-100.0 [facility] MCHC 32.9 % 30.0-36.5 [facility] MCH 28.2 pg 27.0-34.0 [facility] RDW 13.7 % 11.0-15.0 [facility] PLATELET 277 K/uL 130-450 [facility] MPV 6.5 fL 6.0-12.0 [facility] NE% 63 % 37-80 [facility] LY% 27 % 10-50 [facility] MO% 7 % 0-12 [facility] Eosinophils [#/volume] in Blood by Automated count 2 % <=8 [facility] BA% 0 % <=3 [facility] NE# 4.9 K/uL 1.8-8.6 [facility] LYMPH# 2.1 K/uL 0.5-5.0 [facility] MONO# 0.6 K/uL 0.0-1.3 [facility] EOS# 0.1 K/uL 0.0-0.9 [facility] BASO# 0.0 K/ul 0.0-0.3 [facility] ID Date Data Source [id number] 03/03/2020 08:27:00 PM EST [facility] Name Value Range Interpretation Code Description Data Victoria rce(s) Supporting Document(s) SODIUM 138 mmol/L 136-145 [facility] POTASSIUM 3.8 mmol/L 3.5-5.2 [facility] CHLORIDE 107 mmol/L 100-108 [facility] CO2 22 mmol/L 21-32 [facility] GLUCOSE 93 mg/dL 70-100 [facility] BUN 15 mg/dL 7-21 [facility] CREATININE 0.7 mg/dL 0.6-1.3 [facility] Normal Kidney Function or Mild Disease - GFR >OR= 60Chronic Kidney Disease - GFR 15-59Renal Failure - GFR < 15GFR not calculated on patients under 18 years of age. CALCIUM 9.7 mg/dL 8.5-10.8 [facility] GFR >60 [facility] T BILI 0.2 mg/dL 0.0-1.2 [facility] T PROTEIN 7.3 gm/dL 6.4-8.2 [facility] ALBUMIN 4.0 gm/dL 3.4-4.8 [facility] ALK PHOS 119 U/L 40-150 [facility] ALT (SGPT) 50 U/L 0-55 [facility] AST (SGOT) 44 U/L 5-37 H [facility] ID Date Data Source [id number] 03/03/2020 08:13:00 PM EST [facility] CBC W/DIFF STAT Name Value Range Interpretation Code Description Data Victoria rce(s) Supporting Document(s) WBC 7.9 K/uL 4.8-10.8 [facility] RBC 4.19 M/uL 4.20-5.40 L [facility] HEMOGLOBIN 12.6 gm/dL 12.0-16.0 [facility] HEMATOCRIT 36.5 % 36.0-48.0 [facility] MCV 87.1 fL 80.0-100.0 [facility] MCHC 34.5 % 30.0-36.5 [facility] MCH 30.0 pg 27.0-34.0 [facility] RDW 14.2 % 11.0-15.0 [facility] PLATELET 282 K/uL 130-450 [facility] MPV 6.3 fL 6.0-12.0 [facility] NE% 63 % 37-80 [facility] LY% 27 % 10-50 [facility] MO% 8 % 0-12 [facility] Eosinophils [#/volume] in Blood by Automated count 2 % <=8 [facility] BA% 0 % <=3 [facility] NE# 5.0 K/uL 1.8-8.6 [facility] LYMPH# 2.2 K/uL 0.5-5.0 [facility] MONO# 0.6 K/uL 0.0-1.3 [facility] EOS# 0.1 K/uL 0.0-0.9 [facility] BASO# 0.0 K/ul 0.0-0.3 [facility] ID Date Data Source [id number] 03/06/2020 07:32:00 AM EST [facility]BS[facility] 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 [facility] RBC >100 /HPF NONE SEEN ! [facility] The [employer] has definedMicroscopic Hematuria as 3 or more RBC per highpowered field from a single positive urinalysis withmicroscopy. BACTERIA FEW /HPF NONE SEEN ! [facility] EPITHELIAL CELLS FEW /HPF NONE SEEN ! [facility] ID Date Data Source [id number] 03/03/2020 08:14:00 PM EST [facility] al Name Value Range Interpretation Code Description Data Victoria rce(s) Supporting Document(s) COLOR LUIS M [facility] APPEARANCE HAZY CLEAR ! [facility] SPECIFIC GRAVITY 1.025 1.000-1.030 [facility] ital pH 6.0 5.0-8.0 [facility] LEUKOCYTES 2+ NEGATIVE ! [facility] NITRATE NEGATIVE NEGATIVE [facility] PROTEIN 100 [ 2+] mg/dL NEGATIVE ! [facility] l GLUCOSE NORMAL mg/dL NORMAL [facility] KETONE TRACE mg/dL NEGATIVE ! [facility] UROBILINOGEN 1 mg/dL NORMAL ! [facility] BILIRUBIN NEGATIVE mg/dL NEGATIVE [facility] HEMOGLOBIN 3+ NEGATIVE ! [facility] ID Date Data Source [id number] 03/03/2020 08:34:58 PM EST [facility] CT - ABD PELVIS NO FAERQMBP16/19/2020 8: 10 PMCT ABDOMEN AND PELVIS WITHOUT CONTRASTCLINICAL INFORMATION: CT - ABD PELVIS NO CONTRAST -- Flank painCOMPARISON: CT abdomen pelvis 01/16/2020PROCEDURE: Contiguous images were obtained through the abdomen and pelviswithout intravenous contrast. Automated exposure control, adjustment of the mAand/or kV according to patient size, and/or iterative reconstruction techniqueswere utilized for radiation dose optimization.FINDINGS:Chest Base: Unremarkable.Liver/Biliary Tract: Hepatic steatosis. Status post cholecystectomy.Pancreas: Unremarkable.Spleen: Unrema rkable.Adrenals: Unremarkable.Kidneys and Collecting Systems: No hydronephrosis or urinary tract calculibilaterally.Lymph Nodes: Unremarkable.Vessels: Unremarkable for age.GI Tract/Mesentery and Peritoneal Cavity: Status post appendectomy. Sigmoiddiverticulosis. No evidence of bowel obstruction.Uterus/Ovaries: Unremarkable.Bladder: Nondistended bladder.Soft Tissues/Musculoskeletal: No acute abnormality.IMPRESSION: Images are mildly degraded due to motion artifact.No hydronephrosis or urinary tract calculi bilaterally.Hepatic steatosis.END OF IMPRESSIONI have personally reviewed the images and the Resident's/Fellow'sinterpretation and agree with or edited the findings.[facility] submits Radiology results to [facility] and[facility] then provides those same results to [facility]. Allresults are available to [facility] and [facility] provider portalusers. [facility] DICOM images are available to the[facility] provider portal users only. [facility] DICOMimages are not available to the [facility] provider portal users. There isno current [facility] cross-[facility] functionality allowing images to be available [facility] to [facility] connectivity.Interpreted By: Shalonda Jade M.D.Electronically signed By: Mendy Castellon M.D.Read By: MENDY CASTELLONDate: 03/03/2020 20:31 Name Value Range Interpretation Code Description Data Victoria rce(s) Supporting Document(s) ID Date Data Source [id number] 02/20/2020 04:13:00 [place] [address] HEALTH INFORMATION MANAGEMENT ED/UC Physician Report : [id number] Signed Patient: Taniya Field Acct:[id number] Unit: [facility] [id number] : 1985 Arrival Date: 02/20/20 Age/Sex: 34 / F Arrival Time: 1313 Copies to: Herman Jackson MD Abdominal Pain HPI/ROS General Chief Complaint: Abdominal Pain- Female<40 Stated Complaint: Abdomen pain Stated Complaint: Abdomen pain Source: Patient, Old records reviewed, RN/MD, RN notes reviewed and I have reviewed available Ancillary/nursing staff documentation Mode of arrival: Ambulatory Limitations: Reports No limitations History of Present Illness Initial Comments: pt here for eval of pain lt flank area. HAs had multiple ED visits for same. All scans and US show no evidence of renal colic. No fevers, vomiting. Time interval: Unknown Location: Reports L flank Migration to: Reports No migration Severity: Reports Moderate Severity scale (1-10): 3 Quality: Reports Aching and Fullness Consistency: Reports Constant Improves With: Reports Nothing Worsens With: Reports Nothing Related Data LMP (females 10-50): Unknown Home Medications Medication Instructions Recorded sertraline [Zoloft] 50 mg PO DAILY 08/10/19 enoxaparin 120 mg SUBCUT BID 09/30/19 hydroxyzine HCl 50 mg PO HS PRN 09/30/19 losartan-hydrochlorothiazide 1 tab PO DAILY 02/20/20 tizanidine 4 mg PO TID PRN 02/20/20 Allergies Penicillins Allergy (Intermediate, Verified 02/20/20 13:20) RASH/HIVES ibuprofen Adverse Reaction (Severe, Verified 02/20/20 13:20) contraindication with blood thinner Review of Systems Review of Systems All systems: Reviewed and negative except as stated in HPI. 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 Lives with: Reports Alone PMH/PSH PMH/PSH Medical History Asthma Diverticulitis Factor 5 Leiden mutation, heterozygous Hypertension Kidney stone Pulmonary emboli Rotator cuff strain Surgical History History of appendectomy (Surgical) Hx of cholecystectomy (Surgical) Family History Other No pertinent family history Patient denies significant medical history Physical Exam Physical Exam General appearance: Alert, In no apparent distress and Obese Head Head Exam: Atraumatic and Normcephalic Eye Eye Exam: Conjunctiva normal and Sclera normal ENT ENT Exam: External ear normal and Nose normal Mouth/Throat Exam: Normal inspection Dental Exam: dental caries Cardiac Cardiac: Present: Regular rate and rhythm Murmur: Present: None Lung/Chest Lung/Chest Exam: Clear and Normal Exchange Abdomen Abdominal Exam: Bowel sounds normal, Soft and Nondistended Abdominal Pain Location: RUQ Back Back Exam: No Deformity Location of Back Tenderness: CVA: Left Upper Extremity Shoulder Exam: normal inspection (bilat) and full ROM (bilat) ARM Exam: normal inspection (bilat) and full ROM (bilat) Lower Extremity Lower Extremity Location: Ankle, Femur, Hip and Knee Lower Extermity Normal: Full ROM (bilat) Neuro Neuro Normal: Alert, Oriented x 3 and Fluent speech Psych Psych Normal: Normal Affect Skin Skin exam: Dry, Intact and Warm Distribution: generalized Course Course Course Narrative: Exam. Labs done, UA done. Xray done. Discussed results with pt. Vital Signs Vital Signs status: Stable Vital signs: Vital Signs 02/20/20 13:20 Temperature 98.6 F Pulse Rate 102 H Respiratory Rate 18 Blood Pressure 139/79 O2 Sat by Pulse Oximetry 97 Medical Decision Making/CCT EKG Interpretation Complete If EKG was done has it been read?: N/A Lab Data Result diagrams: 02/20/20 14:49 02/20/20 14:49 Labs reviewed: Yes Labs: Lab Results 02/20/20 02/20/20 02/20/20 Range/Units 14:49 14:49 14:49 WBC 7.78 (4.00-10.50) 10 3/uL RBC 4.44 (3.90-5.20) 10 6/uL Hgb 12.5 (11.5-15.6) G/DL Hct 38.0 (35.0-46.0) % MCV 85.6 (80.0-100.0) FL MCH 28.2 (27.0-34.0) PG MCHC 32.9 (32-36) G/DL RDW 14.0 (11.5-14.5) % Plt Count 355 (130-400) 10 3/uL MPV 9.0 (8.7-13.2) FL Gran % (Auto) 66.5 (42.0-75.0) % Lymph % (Auto) 25.2 (20.0-51.0) % Kidder % (Auto) 6.0 (2.0- 15.0) % Eos % (Auto) 1.5 (0.0-11.0) % Baso % (Auto) 0.4 (0.0- 2.0) % Nucleat RBC Rel Count Not Reportable Gran # 5.17 (1.50- 6.50) 10 3/uL Lymph # (Auto) 2.0 (1.0-5.0) k/uL Kidder # (Auto) 0.47 (0.20-1.50) k/uL Eos # (Auto) 0.12 (0.00-1.10) 10 3/uL Baso # (Auto) 0.03 (0.00-0.20) 10 3/uL Immature Gran # (Auto) 0.0 (<0.5) 10 3/uL Absolute Nucleated RBC Not Reportable Immature Gran % 0.4 (1.00-5.00) % Sodium 138 (135-145) MEQ/L Potassium 4.4 (3.5-5.3) MEQ/L Chloride 105 (94-110) MEQ/L Carbon Dioxide 27 (22-33) MEQ/L Anion Gap 10 (5-16) BUN 16 (7-25) MG/DL Creatinine 0.8 (0.6-1.4) MG/DL Estimated GFR (MDRD) 81.2 ML/MIN BUN/Creatinine Ratio 20 (8-36) Glucose 93 (70-100) MG/DL Calcium 9.2 (8.7-10.5) MG/DL Total Bilirubin 0.4 (0.1-1.3) MG/DL AST 69 H (5-40) U/L ALT 66 H (5-48) U/L Alkaline Phosphatase 133 (40-140) U/L Total Protein 7.0 (5.9-8.3) G/DL Albumin 4.9 (3.0-5.1) G/DL Globulin 2.1 (1.5-3.5) G/DL Albumin/Globulin Ratio 2.3 (1.0-3.0) G/DL Beta HCG Screen NEGATIVE Urine Color (YELLOW) Urine Appearance (CLEAR) Urine pH (5.0-8.0) Specific [place] (Man) (1.002-1.035) Urine Protein (NEGATIVE) MG/DL Urine Glucose (UA) (NEGATIVE) MG/DL Urine Ketones (NEGATIVE) MG/DL Urine Occult Blood (NEGATIVE) Urine Nitrate (NEGATIVE) Urine Bilirubin (NEGATIVE) Urine Urobilinogen (NEG-0-1.0) EU MG/DL Ur Leukocyte Esterase (NEGATIVE) Urine WBC (Auto) (<5) PER HPF Urine RBC (Auto) (0-2) PER HPF Urine Bacteria (Auto) (NONE) PER HPF Ur Epithelial Cells (FEW- MOD) PER/LPF Urine Mucus (NONE SEEN) PER HPF Type SERUM 02/20/20 Range/Units 15:42 WBC (4.00-10.50) 10 3/uL RBC (3.90-5.20) 10 6/uL Hgb (11.5-15.6) G/DL Hct (35.0- 46.0) % MCV (80.0-100.0) FL MCH (27.0-34.0) PG MCHC (32-36) G/DL RDW (11.5-14.5) % Plt Count (130-400) 10 3/uL MPV (8.7-13.2) FL Gran % (Auto) (42.0-75.0) % Lymph % (Auto) (20.0- 51.0) % Kidder % (Auto) (2.0-15.0) % Eos % (Auto) (0.0-11.0) % Baso % (Auto) (0.0-2.0) % Nucleat RBC Rel Count Gran # (1.50- 6.50) 10 3/uL Lymph # (Auto) (1.0-5.0) k/uL Kidder # (Auto) (0.20- 1.50) k/uL Eos # (Auto) (0.00-1.10) 10 3/uL Baso # (Auto) (0.00- 0.20) 10 3/uL Immature Gran # (Auto) (<0.5) 10 3/uL Absolute Nucleated RBC Immature Gran % (1.00-5.00) % Sodium (135-145) MEQ/L Potassium (3.5-5.3) MEQ/L Chloride (94-110) MEQ/L Carbon Dioxide (22-33) MEQ/L Anion Gap (5-16) BUN (7-25) MG/DL Creatinine (0.6-1.4) MG/DL Estimated GFR (MDRD) ML/MIN BUN/Creatinine Ratio (8-36) Glucose (70-100) MG/DL Calcium (8.7-10.5) MG/DL Total Bilirubin (0.1-1.3) MG/DL AST (5-40) U/L ALT (5-48) U/L Alkaline Phosphatase (40-140) U/L Total Protein (5.9-8.3) G/DL Albumin (3.0-5.1) G/DL Globulin (1.5-3.5) G/DL Albumin/Globulin Ratio (1.0-3.0) G/DL Beta HCG Screen Urine Color GREEN H (YELLOW) Urine Appearance TURBID H (CLEAR) Urine pH 6.0 (5.0-8.0) Specific [place] (Man) 1.028 (1.002-1.035) Urine Protein 100 H (NEGATIVE) MG/DL Urine Glucose (UA) NEGATIVE (NEGAT ANDRES) MG/DL Urine Ketones NEGATIVE (NEGATIVE) MG/DL Urine Occult Blood LARGE H (NEGATIVE) Urine Nitrate NEGATIVE (NEGATIVE) Urine Bilirubin NEGATIVE (NEGATIVE) Urine Urobilinogen 0.2-1.0 (NEG-0-1.0) EU MG/DL Ur Leukocyte Esterase TRACE H (NEGATIVE) Urine WBC (Auto) <5 (<5) PER HPF Urine RBC (Auto) >100 H (0-2) PER HPF Urine Bacteria (Auto) RARE (NONE) PER HPF Ur Epithelial Cells MANY (FEW-MOD) PER/LPF Urine Mucus RARE (NONE SEEN) PER HPF Type Hyperglycemia Identified Hyperglycemia identified in patient?: No Medication/Allergies Review Medication/Allergies Review Home Medication and Allergy review: I reviewed patients allergies, home medications, and new prescriptions and All Rx meds, nonRx meds, supplements reported by patient are recorded Blood Pressure Blood pressure: Pt BP not elevated Radiology Data Radiology Data Radiology results: report reviewed and image reviewed Radiology impressions: EXAM:Abdomen 1VCLINICAL INDICATION: eval for kidney stoneTECHNIQUE: Two x-rays of the abdomenwere obtained. COMPARISON: Abdominal x- rays dated 10/24/2018. FINDINGS: Cholecystectomy clips in the right upper quadrant.No calcifications identified overlying the renal shadows.Unremarkable bowel gas pattern.No air-fluid levels.No free air.. IMPRESSION: 1. No calcifications identified overlying the renal shadows.Professional interpretation performed by [facility] Medical Imaging at [facility] .End of diagnostic report: [id number]: Boyd Armstrong MD02/20/20 1546 Critical Care Time Critical Care Time: No Discharge Plan Disposition Clinical Impression: Chronic flank pain Provider stated Dispo: Discharged Condition: Stable Instructions: Flank Pain (ED) Activity Restrictions/Additional Instructions: Make sure to stay well hydrated. If symptoms persist; follow up with your doctor. Prescriptions: No Action sertraline [Zoloft] 50 mg tablet 50 mg PO DAILY RF: 0 hydroxyzine HCl 50 mg tablet 50 mg PO HS PRN (Reason: Sleep) RF: 0 enoxaparin 120 mg/0.8 mL syringe 120 mg subcut BID RF: 0 tizanidine 4 mg tablet 4 mg PO TID PRN (Reason: Spasms) RF: 0 losartan-hydrochlorothiazide 50-12.5 mg tablet 1 tab PO DAILY RF: 0 Referrals: Herman Jackson MD [Primary Care Provider] - 2-3 days Stand Alone Forms: Portal Instructions Patient agreeable to discharge: Patient/Guardian understands and is agreeable to discharge plan Provider in triage note Vital Signs Vital Signs: I O (Last 24 Hours) 02/18/20 02/19/20 02/20/20 23:59 23:59 23:59 Other: Weight 118.64 kg Vital Signs (Last 8 Hours) Temp Pulse Resp BP Pulse Ox 02/20/20 13:20 98.6 F 102 H 18 139/79 97 Date/Time <<Signature on File>> Initializing User: Karina Nicole NP 02/20/20 1613 Signed by: Karina Nicole NP 02/23/20 180 Estevan Rich MD 02/23/20 181 Name Value Range Interpretation Code Description Data Victoria rce(s) Supporting Document(s) ID Date Data Source [id number] 02/20/2020 04:06:00 PM EST [facility] Name Value Range Interpretation Code Description Data Victoria rce(s) Supporting Document(s) COLOR,UR GREEN YELLOW A [facility] APPEARANCE,UR TURBID CLEAR A [facility] PH,UR 6.0 5.0-8.0 [facility] SPECIFIC GRAVITY,UR 1.028 1.002-1.035 [facility] PROTEIN,UR 100 MG/DL NEGATIVE A [facility] GLUCOSE, UR NEGATIVE MG/DL NEGATIVE [facility] KETONES,UR NEGATIVE MG/DL NEGATIVE [facility] OCCULT BLOOD,UR LARGE NEGATIVE A [facility] NITRATE,UR NEGATIVE NEGATIVE [facility] LEUKOCYTE ESTERASE ,UR TRACE NEGATIVE A [facility] BILIRUBIN,UR NEGATIVE NEGATIVE [facility] UROBILINOGEN,UR 0.2-1.0 EU MG/DL NEG-0-1.0 [facility] RBC,UR >100 PER HPF 0-2 A [facility] WBC,UR <5 PER HPF <5 [facility] URINE EPITH MANY PER/LPF FEW-MOD [facility] BACTERIA,UR RARE PER HPF NONE [facility] MUCUS,UR RARE PER HPF NONE SEEN [facility] ID Date Data Source [id number] 02/20/2020 03:00:00 PM EST [facility] Name Value Range Interpretation Code Description Data Victoria rce(s) Supporting Document(s) WHITE BLOOD COUNT 7.78 10^3/uL 4.00-10.50 [facility] RED BLOOD COUNT 4.44 10^6/uL 3.90-5.20 [facility] HEMOGLOBIN 12.5 G/DL 11.5-15.6 N [facility] HEMATOCRIT 38.0 % 35.0-46.0 [facility] MCV 85.6 FL 80.0-100.0 [facility] MCH 28.2 PG 27.0-34.0 [facility] MCHC 32.9 G/DL 32-36 [facility] RDW 14.0 % 11.5-14.5 [facility] PLATELET COUNT 355 10^3/uL 130-400 [facility] MPV 9.0 FL 8.7-13.2 N [facility] GRAN % (AUTO) 66.5 % 42.0-75.0 [facility] LYMPH % (AUTO) 25.2 % 20.0-51.0 N [facility] MONO % (AUTO) 6.0 % 2.0-15.0 N [facility] EOS % (AUTO) 1.5 % 0.0-11.0 [facility] BASO % (AUTO) 0.4 % 0.0-2.0 N [facility] IG % (AUTO) 0.4 % 1.00-5.00 [facility] IG # (AUTO) 0.0 10^3/uL <0.5 [facility] GRAN # (AUTO) 5.17 10^3/uL 1.50-6.50 N [facility] LYMPH # (AUTO) 2.0 k/uL 1.0-5.0 N [facility] MONO # (AUTO) 0.47 k/uL 0.20-1.50 N [facility] EOS # (AUTO) 0.12 10^3/uL 0.00-1.10 [facility] BASO # (AUTO) 0.03 10^3/uL 0.00-0.20 N [facility] ID Date Data Source [id number] 02/20/2020 03:25:00 PM EST [facility] Name Value Range Interpretation Code Description Data Victoria rce(s) Supporting Document(s) HCG QUALITATIVE SPECIMEN [facility] ID Date Data Source [id number] 02/20/2020 03:30:00 PM EST [facility] Name Value Range Interpretation Code Description Data Victoria rce(s) Supporting Document(s) SODIUM 138 MEQ/L 135-145 N [facility] POTASSIUM 4.4 MEQ/L 3.5-5.3 N [facility] CHLORIDE 105 MEQ/L 94-110 N [facility] CARBON DIOXIDE 27 MEQ/L 22-33 N [facility] ANION GAP 10 5-16 N [facility] BLOOD UREA NITRO 16 MG/DL 7-25 N [facility] CREATININE 0.8 MG/DL 0.6-1.4 [facility] GFR 81.2 ML/MIN [facility] Stage G2 - Mildly decreased kidney func tion The GFR is an estimate of the Glomerular Filtration Rate. It is an aid to assess a patient's renal function. It is not a conclusive diagnosis of kidney disease. GFR normal is >=90 The MDRD GFR calculation is considered valid between the ages of 18 and 75 years only. BUN/CREAT RATIO 20 8-36 N [facility] GLUCOSE 93 MG/DL 70-100 [facility] CA 9.2 MG/DL 8.7-10.5 [facility] BILIRUBIN,TOTAL 0.4 MG/DL 0.1-1.3 [facility] AST 69 U/L 5-40 H [facility] ALT 66 U/L 5-48 H [facility] ALKALINE PHOSPHATASE 133 U/L 40-140 [facility] alth TOTAL PROTEIN 7.0 G/DL 5.9-8.3 N [facility] ALBUMIN 4.9 G/DL 3.0-5.1 [facility] GLOBULIN 2.1 G/DL 1.5-3.5 [facility] ALB/GLOB RATIO 2.3 G/DL 1.0-3.0 N [facility] ID Date Data Source [id number] 02/20/2020 03:25:00 PM [facility] Name Value Range Interpretation Code Description Data Victoria rce(s) Supporting Document(s) HCG RESULT,S NEGATIVE [facility] Reference range is Negative "Extreme" early may have low levels of HCG present. If is suspected, repeat testing with a new specimen in 48-72 hours ID Date Data Source [id number] 02/14/2020 06:10:[address] [address] HEALTH INFORMATION MANAGEMENT ED/UC Physician Report : [id number] Signed Patient: Taniya Field Acct:[id number] Unit: [facility] [id number] : 1985 Arrival Date: 02/14/20 Age/Sex: 34 / F Arrival Time: 1550 Copies to: Herman Jackson MD General Adult HPI/ROS General Chief Complaint: Flank Pain Stated Complaint: Belly Pain Source: Patient Mode of arrival: Ambulatory Limitations: Reports No limitations History of Present Illness Initial Comments: 34-year-old female patient presenting to the ER with complaint of chronic left flank pain as well as left ear pain. Patient states that symptoms started today. She states she has noted hematuria. It is noted that patient does have chronic hematuria in her history. Patient denies any fevers chills nausea vomiting diarrhea or difficulty urinating. She denies any dysuria. Related Data Last Menstrual Period: 2 week s ago Home Medications Medication Instructions Recorded lisinopril-hydrochlorothiazide 1 tab PO DAILY 08/10/19 [Zestoretic] losartan [Cozaar] 25 mg PO DAILY 08/10/19 sertraline [Zoloft] 50 mg PO DAILY 08/10/19 enoxaparin 120 mg SUBCUT BID 09/30/19 hydroxyzine HCl 50 mg PO HS PRN 09/30/19 tramadol 50 mg PO Q8H PRN #9 tab MDD 3 10/15/19 omeprazole 20 mg PO BID #60 cap 12/02/19 ondansetron 4 mg PO Q8H PRN #20 tab 12/02/19 ofloxacin 10 drp OTIC (EAR) DAILY 7 Days ml 02/14/20 ofloxacin 10 drp OTIC (EAR) DAILY 7 Days #10 02/14/20 ml Allergies Penicillins Allergy (Intermediate, Verified 12/19/19 13:07) RASH/HIVES ibuprofen Adverse Reaction (Severe, Verified 12/19/19 13:07) contraindication with blood thinner Review of Systems Review of Systems All systems: Reviewed and negative except as stated in HPI. 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 Lives with: Reports Alone PMH/PSH Medical History (Updated 02/14/20 @ 18:14 by [facility]) Asthma Diverticulitis Factor 5 Leiden mutation, heterozygous Hypertension Kidney stone Pulmonary emboli Rotator cuff strain Surgical History History of appendectomy (Surgical) Hx of cholecystectomy (Surgical) Family History Other No pertinent family history Patient denies significant medical history Physical Exam Physical Exam General appearance: Alert and In no apparent distress Head Head Exam: Atraumatic ENT ENT Exam: Nose normal, Throat normal, Tympanic membrane normal and Tonsil normal TM/Canal exam: Left canal tenderness (Canal is erythematous with mild edema.) Neck Neck Exam: Full ROM Cardiac Cardiac: Present: Regular rate and rhythm and Radial pulses normal equal Lung/Chest Lung/Chest Exam: Clear and Normal Exchange Abdomen Abdominal Exam: Bowel sounds normal, Soft, Nondistended and Nontender Abdominal Pain Location: negative LLQ and LUQ Back Back Exam: Full ROM Location of Back Tenderness: CVA: Left Neuro Neuro Normal: Alert, Oriented x 3, Sensory normal and Strength 5/5 all extremities Psych Psych Normal: Normal Affect Skin Skin exam: Dry, Intact, [place] and Warm Course Vital Signs Vital signs: Vital Signs 02/14/20 16:14 Temperature 98.8 F Pulse Rate 94 Respiratory Rate 18 Blood Pressure 175/111 H O2 Sat by Pulse Oximetry 100 Medical Decision Making/CCT Medical Decision Making Medical Decision Makin-year-old female patient presenting to the ER with complaints of left flank pain. She also complains of left ear pain. On exam she does have erythema and mild edema to the left ear canal. She will be started on Ciprodex at this time. Patient has been offered ultrasound and pain medication. She is requesting pain medication only and states that she does not want to have an ultrasound. Patient does have trace leuks in her urine. She is not having any symptoms at this time. Urine will be sent for culture. We will treat based on her culture results. Patient will be discharged at this time. She has been given strict return instructions and she is able to verbalize understanding. Discharge Plan Disposition Clinical Impression: Left flank pain, chronic Otitis externa Qualifiers: Otitis externa type: unspecified type Chronicity: acute Laterality: left Qualified Code(s): H60.502 - Unspecified acute noninfective otitis externa, left ear Provider stated Dispo: Discharged Condition: Stable Instructions: Otitis Externa (ED), Flank Pain (ED) Activity Restrictions/Additional Instructions: Increase her fluids and rest. Use Tylenol as needed for pain. Follow up with primary care doctor in 1-2 days. For any worsening symptoms return to the ER for re- evaluation. Use the ear drops as prescribed. Prescriptions: New ofloxacin 0.3 % drops 10 drp otic (ear) DAILY 7 Days RF: 0 ofloxacin 0.3 % drops 10 drp otic (ear) DAILY 7 Days Qty: 10 RF: 0 No Action losartan [Cozaar] 25 mg tablet 25 mg PO DAILY RF: 0 lisinopril- hydrochlorothiazide [Zestoretic] 10-12.5 mg tablet 1 tab PO DAILY RF: 0 sertraline [Zoloft] 50 mg tablet 50 mg PO DAILY RF: 0 tramadol 50 mg tablet 50 mg PO Q8H MDD 3 PRN (Reason: pain) Qty: 9 RF: 0 hydroxyzine HCl 50 mg tablet 50 mg PO HS PRN (Reason: Sleep) RF: 0 enoxaparin 120 mg/0.8 mL syringe 120 mg subcut BID RF: 0 ondansetron 4 mg tablet,disintegrating 4 mg PO Q8H PRN (Reason: nausea and vomiting) Qty: 20 RF: 0 omeprazole 20 mg capsule,delayed release(DR/EC) 20 mg PO BID Qty: 60 RF: 0 Referrals: Herman Jackson MD [Primary Care Provider] - Stand Alone Forms: Portal Instructions Provider in triage note Vital Signs Vital Signs: I O (Last 24 Hours) 02/12/20 1 04/14/19 02/14/20 23:59 23:59 23:59 Other: Weight 118 kg Vital Signs (Last 8 Hours) Temp Pulse Resp BP Pulse Ox 02/14/20 16:14 98.8 F 94 18 175/111 H 100 Date/Time <<Signature on File>> Initializing User: Elvira Max ELEVATOR RUNNER 02/14/201809 Signed by: Elvira Max 02/14/20 5724 Estevan Rich MD 02/17/20 0836 Name Value Range Interpretation Code Description Data Victoria rce(s) Supporting Document(s) ID Date Data Source [id number] 02/14/2020 06:19:00 PM [facility] Run: 02/16/20 0756 INTERFACED REPORT Name: Taniya Field Age/Sex: 34/F Location: ED Acct: [id number] Unit: [id number] Status: [facility] Room/Bed: Re02/14/20 Disch: Att Dr: Estevan Rich MD Specimen #: [id number] Ordered : 02/14/2004/04/1818 Collected : 02/14/2004/04/1799 By: JOSH Received: 02/14/2004/04/1806 By: PAYTON Source: URINE CC Specimen Description: Procedure Result - COLONY COUNT Final COLONY COUNT LESS THAN 1,000 CFU/ML URINE CULTURE Final NO GROWTH NO GROWTH <18 HOURS NO SIGNIFICANT GROWTH 42 HOURS URINE CULTURE Preliminary (Corrected) NO GROWTH NO GROWTH <18 HOURS END OF REPORT Name Value Range Interpretation Code Description Data Victoria rce(s) Supporting Document(s) COLOR,UR YELLOW YELLOW [facility] APPEARANCE,UR SL CLOUDY CLEAR [facility] PH,UR 5.0 5.0-8.0 [facility] SPECIFIC GRAVITY,UR 1.021 1.002-1.035 N [facility] PROTEIN,UR NEGATIVE MG/DL NEGATIVE [facility] GLUCOSE, UR NEGATIVE MG/DL NEGATIVE [facility] KETONES,UR NEGATIVE MG/DL NEGATIVE [facility] OCCULT BLOOD,UR MODERATE NEGATIVE A [facility] NITRATE,UR NEGATIVE NEGATIVE [facility] LEUKOCYTE ESTERASE ,UR TRACE NEGATIVE A [facility] BILIRUBIN,UR NEGATIVE NEGATIVE [facility] UROBILINOGEN,UR 0.2-1.0 EU MG/DL NEG-0-1.0 [facility] RBC,UR 10-24 PER HPF 0-2 A [facility] WBC,UR 5-9 PER HPF <5 A [facility] URINE EPITH MANY PER/LPF FEW-MOD [facility] MUCUS,UR RARE PER HPF NONE SEEN [facility] ID Date Data Source [id number] 02/16/2020 07:56:00 AM EST [facility] Run: 02/16/20 0756 INTERFACED REPORT Name: Taniya Field Age/Sex: 34/F Location: ED Acct: [id number] Unit: [id number] Status: DEP ER Room/Bed: Re02/14/20 Disch: Att Dr: Estevan Rich MD Specimen #: [id number] Ordered : 02/14/2004/04/1818 Collected : 02/14/2004/04/1799 By: JOSH Received: 02/14/2004/04/1806 By: PAYTON Source: URINE CC Specimen Description: Procedure Result - COLONY COUNT Final COLONY COUNT LESS THAN 1,000 CFU/ML URINE CULTURE Final NO GROWTH NO GROWTH <18 HOURS NO SIGNIFICANT GROWTH 42 HOURS URINE CULTURE Preliminary (Corrected) NO GROWTH NO GROWTH <18 HOURS END OF REPORT Name Value Range Interpretation Code Description Data Victoria rce(s) Supporting Document(s) ID Date Data Source [id number] 02/02/2020 02:24:09 PM EST [facility] Note Status: FINAL (SIGNED)Full Name: Kade JONES Date: 1985Visit ID: [id number] Record Number: [id number]: 34YSex: FemaleRoom Location: ER ROOMSBed Location: ER GYNDate of Service: 01/28/2020 09:21Creation Date: 01/28/2020 09:21Created By: [facility] Physician: NONE, NONETime patient first seen: 919 HPI Chief Complaint: Patient is a 34-year-old female presents to ER with persistent left flank pain. She has had a CT and ultrasound without evidence of renal stone or hydronephrosis. She was diagnosed with pelyonephritis, she denies any dysuria. She denies any chest pain or shortness of breath. She states that she has several more days of antibiotics left.Review of SystemsAll systems reviewed and negative except as noted in HPIED Triage Note: pt was seen in er 1 week ago for abdominal pain diagnosed with kidney infection put on antibiotics today c/o left flank pain radiating into abdomen [HOMA OVALLE 01/28/20 08:55]Past Medical/Surgical HistoryPast wi dical/surgical history reviewedFull problems and procedures listProblem;Associated ICD-10-CM Code;Status;OnsetAppendectomy;None Associated;Completed;UnknownAsthma;None Associated;Active;UnknownCholecyst ectomy;None Associated;Completed;UnknownHypercholesterolemia;None Associated;Active;UnknownHome MedicationsHome medications reviewedLast Verified By: HOMA OVALLE RN on 01/28/2020 08:57Enoxaparin, 120 milligram subcutaneously every 12 hours HYDROcodone-acetaminophen 5 mg-325 mg, 1 tablet orally every 4 hours PRN pain hydrOXYzine HCL, 50 to 100 milligram orally every day at bedtime PRN Phenazopyridine, 200 milligram orally 3 times per day PRN (Duration: 3 days), Start Date: 01/17/2020 sertraline, 50 milligram orally daily tiZANidine, 4 milligram orally 3 times per day PRN muscle spasticity AllergiesAllergies reviewedLast Verified By: HOMA OVALLE RN on 01/28/2020 08:56Motrin(on blood thinner), Penicillin V(Rash) Family HistoryFamily history reviewedMother (alive) 43Y Benign essential hypertension, Father 50Y ( [place] ) Social history reviewedVital SignsVital signs reviewedMaximum temperature within the last 24 hours: 98.0 FDate/time of maximum temperature: 01/28/2020 08:58Most recent vital signsBP: 149/80 01/28/2020 08:58 Pulse: 108 01/28/2020 08:58 Temp: 98.0 F 01/28/2020 08:58 Resp: 20 01/28/2020 08:58 O2 Sat: 98.0%(Room Air) 01/28/2020 08:58 Calculated BMI: 49.7 01/28/2020 08:54 Admission height (inches): 61Admission weight (kgs): 118Triage Vital SignsTemp: 98F 01/28/2020 08:58 Pulse: 108 bpm 01/28/2020 08:58 Respirations: 20 01/28/2020 08:58 Blood Pressure: 149/80 mmHg 01/28/2020 08:58 O2Sat: 98 % 01/28/2020 08:58 Height: 61 in 01/28/2020 08:54 Weight: 118 kg 01/28/2020 08:54 Calculated BMI: 49.7 01/28/2020 08:54 Physical ExamConstcomments: General: NAD, calm, cooperative, AAOx3 Eyes: EOMI, Pupils equal and reactive, No Scleral icterus Head: AT/NC, MMM and intact Neck: No lymphadenopathy, no JVD, no Thyromegaly Cardio: Regular rate and rhythm, No murmurs, Gallops, or Rubs Resp: Clear to auscultation, No wheezing, rhonchi, or rales, unlabored effort Abdomen: Soft, Non-tender, no rebound tenderness, no masses Extremities: Warm, well perfused, Cap refill <3 seconds, no C/C/E Neuro: Motor: 5/5 B/L upper and lower extremities Sensory: Grossly in tact CN2-12 intact Psych: Normal speech, no suicidal or homicidal ideations Skin: No rash, No bruising present Back: No step offs, positive left CVA tenderness, no spinal tendernessInitial impression: Left flank pain Check labsOrdersStart Date;Description;Frequency;Ordered By;Rtraxl1301/28/2020;CULTURE URINE ;Once;ELDER, SIERRA;Today01/28/2020;CBC DIFF ;Once;ELDER, SIERRA;Today01/28/2020;COMPREHENSIVE PANEL ;Once;ELDER, SIERRA;Today01/28/2020;URINALYSIS ROUTINE ;Once;ELDER, SIERRA;Today01/28/2020;URINE MICROSCOPIC ;Once;ELDER, SIERRA;TodayLaboratory resultsLab Results for the past 24 hoursOrder;Test;Value;Reference Range;Comments;Status;CollectionCBC DIFF;WBC;7.5;(4.8-10.8 K/uL);;Final Result ;01/28/2020 10:11:00CBC DIFF;RED BLOOD CELL;4.40;(4.20- 5.40 M/uL);;Final Result ;01/28/2020 10:11:00CBC DIFF;HEMOGLOBIN;12.7;(12.0-16.0 gm/dL);;Final Result ;01/28/2020 10:11:00CBC DIFF;HEMATOCRIT;38.0;(36.0-48.0 %);;Final Result ;01/28/2020 10:11:00CBC DIFF;MCV;86.4;(80.0-100.0 fL);;Final Result ;01/28/2020 10:11:00CBC DIFF;MCHC;33.4;(30.0- 36.5 %);;Final Result ;01/28/2020 10:11:00CBC DIFF;MCH;28.9;(27.0-34.0 pg);;Final Result ;01/28/2020 10:11:00CBC DIFF;RDW;12.9;(11.0-15.0 %);;Final Result ;01/28/2020 10:11:00CBC DIFF;PLATELET COUNT;307;(130-450 K/uL);;Final Result ;01/28/2020 10:11:00CBC DIFF;MPV;6.7;(6.0-12.0 fL);;Final Result ;01/28/2020 10:11:00CBC DIFF;NEUTROPHIL;65;(37-80 %);;Final Result ;01/28/2020 10:11:00CBC DIFF;LYMPHOCYTE;25;(10-50 %);;Final Result ;01/28/2020 10:11:00CBC DIFF;MONOCYTE;8;(0-12 %);;Final Result ;01/28/2020 10:11:00CBC DIFF;EOSINOPHIL;2;( < =8 %);;Final Result ;01/28/2020 10:11:00CBC DIFF;BASOPHIL;0;( < =3 %);;Final Result ;01/28/2020 10:11:00CBC DIFF;DEAN#;4.9;(1.8-8.6 K/uL);;Final Result ;01/28/2020 10:11:00CBC DIFF;LYMPHOCYTE #;1.9;(0.5-5.0 K/uL);;Final Result ;01/28/2020 10:11:00CBC DIFF;MONOCYTE #;0.6;(0.0-1.3 K/uL);;Final Result ;01/28/2020 10:11:00CBC DIFF;EOSINOPHIL #;0.1;(0.0-0.9 K/uL);;Final Result ;01/28/2020 10:11:00CBC DIFF;BASOPHIL #;0.0;(0.0-0.3 K/ul);;Final Result ;01/28/2020 10:11:00COMPREHENSIVE PANEL;SODIUM;137;(136-145 mmol/L);;Final Result ;01/28/2020 10:11:00COMPREHENSIVE PANEL;POTASSIUM;4.3;(3.5-5.2 mmol/L);;Final Result ;01/28/2020 10:11:00COMPREHENSIVE PANEL;CHLORIDE;104;(100-108 mmol/L);;Final Result ;01/28/2020 10:1 1:00COMPREHENSIVE PANEL;CARBON DIOXIDE;24;(21-32 mmol/L);;Final Result ;01/28/2020 10:11:00COMPREHENSIVE PANEL;GLUCOSE;93;(70-100 mg/dL);;Final Result ;01/28/2020 10:11:00COMPREHENSIVE PANEL;BUN;16;(7-21 mg/dL);;Final Result ;01/28/2020 10:11:00COMPREHENSIVE PANEL;Creatinine;0.7;(0.6-1.3 mg/dL);;Final Result ;01/28/2020 10:11:00COMPREHENSIVE PANEL;CALCIUM;8.7;(8.5-10.8 mg/dL);;Final Result ;01/28/2020 10:11:00COMPREHENSIVE PANEL;GFR; > 60;;;Final Result ;01/28/2020 10:11:00COMPREHENSIVE PANEL;TOTAL BILIRUBIN;0.2;(0.0-1.2 mg/dL);;Final Result ;01/28/2020 10:11:00COMPREHENSIVE PANEL;TOTAL PROTEIN;7.8;(6.4-8.2 gm/dL);;Final Result ;01/28/2020 10:11:00COMPREHENSIVE PANEL;ALBUMIN;4.2;(3.4-4.8 gm/dL);;Final Result ;01/28/2020 10:11:00COMPREHENSIVE PANEL;ALK PHOS;115;(40-150 U/L);;Final Result ;01/28/2020 10:11:00COMPREHENSIVE PANEL;ALT(SGPT);43;(0-55 U/L);;Final Result ;01/28/2020 10:11:00COMPREHENSIVE PANEL;AST (SGOT);33;(5-37 U/L);;Final Result ;01/28/2020 10:11:00URINALYSIS ROUTINE;Dipstick Urine Color;YELLOW;;;Final Result ;01/28/2020 10:1 1:00URINALYSIS ROUTINE;Dipstick Urine Turbidity;CLEAR;;;Final Result ;01/28/2020 10:11:00URINALYSIS ROUTINE;Dipstick Specific [place];1.020;(1.000-1.030);;Final Result ;01/28/2020 10:11:00URINALYSIS ROUTINE;Dipstick Urine pH;6.0;(5.0-8.0);;Final Result ;01/28/2020 10:11:00URINALYSIS ROUTINE;Dipstick Urine Leucoesterase;TRACE;;;Final Result ;01/28/2020 10:11:00URINALYSIS ROUTINE;Dipstick Urine Nitrate;NEGATIVE;;;Final Result ;01/28/2020 10:11:00URINALYSIS ROUTINE;Dipstick Urine Protein;NEGATIVE;;;Final Result ;01/28/2020 10:11:00URINALYSIS ROUTINE;Dipstick Urine Glucose;NORMAL;;;Final Result ;01/28/2020 10:11:00URINALYSIS ROUTINE;Dipstick Urine Ketone;NEGATIVE;;;Final Result ;01/28/2020 10:11:00URINALYSIS ROUTINE;Dipstick Urine Urobilinogen;NORMAL;;;Final Result ;01/28/2020 10:11:00URINALYSIS ROUTINE;Dipstick Urine Bili;NEGATIVE;;;Final Result ;01/28/2020 10:11:00URINALYSIS ROUTINE;Dipstick Urine Hgb;TRACE;;;Final Result ;01/28/2020 10:11:00URINE MICROSCOPIC;Microscopic Urine WBC;0- 2;;;Final Result ;01/28/2020 10:11:00URINE MICROSCOPIC;Microscopic Urine RBC;NONE SEEN;;;Final Result ;01/28/2020 10:11:00URINE MICROSCOPIC;Microscopic Urine BACT;FEW;;;Final Result ;01/28/2020 10:11:00URINE MICROSCOPIC;Microscopic Urine Epi;RARE;;;Final Result ;01/28/2020 10:11:00EKG/Rhythm Strip InterpretationProgress Time 1: 1055 Progress comments 1: MDM: Patient is a 34-year-old female presents to ER with re current left flank pain. She has several days of antibiotics. It appears that she has cleared her urinary tract infection. She has had a CT and ultrasound performed recently, her vital signs remained stable and she has no white blood cell elevation. Her abdomen is soft and nontender. I do not think she needs repeat imaging at this time. I recommended she follow-up with her primary care doctor and she agrees with this current plan. Discussed if pain worsens or changes she should return to ER.Diagnosis: Acute on chronic left CVA tenderness.Diagnosis level 3Disposition time: 1055 Discharge condition: StableDischarge plan: Follow-up with your doctor. Tylenol as needed for pain.Disposition: homePatient did not require critical care timePhysician signature: Asim MITCHELL signature date: 01/28/2020 10:56 Name Value Range Interpretation Code Description Data Victoria rce(s) Supporting Document(s) ID Date Data Source [id number] 02/01/2020 10:48:16 AM [facility] Note Status: FINAL (SIGNED)Full Name: TANIYA JONESBirth Date: 1985Visit ID: [id number] Record Number: [id number]: 34YSex: FemaleRoom Location: ER ROOMSBed Location: ER GYNDate of Service: 02/01/2020 10:44Creation Date: 02/01/2020 10:44Created By: [facility]St[facility] Physician: NONE, NONEHPI comments: Patient is a 34-year-old female with a past medical history below who presented to the ED with left back and left flank pain. Patient states symptoms are going on for the past couple days. She also reports intermittent dysuria and hematuria. She denied any fevers chills nausea vomiting chest pain shortness of breath lightheadedness or dizziness. She did have a CT several days ago which showed no acute findings.Review of SystemsGeneral: No fevers, No sweats, No chillsMusculoskeletal: Back painRespiratory: No cough, No dyspneaCardiovascular: No chest pain, No edemaGastrointestinal: No abdominal pain, No nausea, No vomiting, No hematemesis, No diarrheaNeurologic: No headache ED Triage Note: Patient reports abdominal pain, per patient her provider wants her to come in to get checked out for a PE in her abdomen. Denies emesis and diarrhea. Had a CT a couple days ago and patient denies any acute findings on it. [DALE PALMA 02/01/20 06:36]Past Medical/Surgical HistoryPast medical/surgical history reviewedFull problems and procedures listProblem;Associated ICD-10-CM Code;Status;OnsetAppendectomy;None Associated;Completed;UnknownAsthma;None Associated;Active;UnknownCholecystectomy;None Associated;Completed;UnknownHypercholesterolemia;None Associated;Active;UnknownHome MedicationsHome medications reviewedAcetaminophen, 1000 milligram orally every 8 hours PRN pain Ciprofloxacin, 500 milligram orally 2 times per day Enoxaparin, 120 milligram subcutaneously every 12 hours HYDROcodone-acetaminophen 5 mg-325 mg, 1 tablet orally every 4 hours PRN pain hydrOXYzine HCL, 50 to 100 milligram orally every day at bedtime PRN Phenazopyridine, 200 milligram orally 3 times per day PRN (Duration: 3 days), Start Date: 01/17/2020 sertraline, 50 milligram orally daily tiZANidine, 4 milligram orally 3 times per day PRN muscle spasticity AllergiesAllergies reviewedLast Verified By: DALE PALMA RN on 02/01/2020 06:37Motrin(on blood thinner), Penicillin V(Rash) Family HistoryFamily history reviewedMother (alive) 43Y Benign essential hypertension, Father 50Y ( [place] ) Social history reviewedVital SignsVital signs reviewedMaximum temperature within the last 24 hours: 98.6 FDate/time of maximum temperature: 02/01/2020 06:31Most recent vital signsBP: 115/67 02/01/2020 09:54 Pulse: 88 02/01/2020 09:54 Temp: 98.1 F 02/01/2020 09:54 Resp: 18 02/01/2020 09:54 O2 Sat: 99.0% 02/01/2020 09:54 Calculated BMI: 49.7 02/01/2020 06:31 Admission height (inches): 61Admission weight (kgs): 118Triage Vital SignsTemp: 98.6F 02/01/2020 06:31 Pulse: 109 bpm 02/01/2020 06:31 Respirations: 20 02/01/2020 06:31 Blood Pressure: 194/93 mmHg 02/01/2020 06:31 O2Sat: 100 % 02/01/2020 06:31 Height: 61 in 02/01/2020 06:31 Weight: 118 kg 02/01/2020 06:31 Calculated BMI: 49.7 02/01/2020 06:31 Physical ExamConst: no apparent distressEyes: extraocular movements intact, no conjunctival injectionHENT: Normocephalic atraumatic, Oral mucosa moist/clearCVS: Regular rate and rhythm, No rubs/gallops/murmursResp: Clear to auscultation bilaterally, No wheezes/rales/rhonchiGI: Non-tender, No guarding/rebound/tendernessMusc: Range of motion normalExtrem: No clubbing/cyanosis/edemaBack: No CVA tendernessOrdersStart Date;Description;Frequency;Ordered By;[id number]/01/2020;CBC DIFF ;Once;MYLES LEE;Today02/01/2020;COMPREHENSIVE PANEL ;Once;MYLES LEE;Today02/01/2020;CULTURE URINE ;Once;MYLES LEE;Today02/01/2020;Point of Care /URINE ;Once;MYLES LEE;Today02/01/2020;URINALYSIS ROUTINE ;Once;MYLES LEE;Today02/01/2020;URINE MICROSCOPIC ;Once;MYLES LEE;Today02/01/2020;KETOROLAC 15 MG/1 ML IVP ;ED - ONE TIME ONLY;MYLES LEE;Qopvxjjl67/18/2020;RENAL/BLADDER U/S LIMITED ;Once;MYLES LEE;Today;CIPROFLOXACIN 500 MG ORAL ;ED - ONE TIME ONLY;MYLES LEE;;HYDROCODONE-ACETAMINOPHEN 5-325MG 1 TAB ORAL ;ED - ONE TIME ONLY;MYLES LEE;Laboratory resultsLab Results for the past 24 hoursOrder;Test;Value;Reference Range;Comments;Status;CollectionURINALYSIS ROUTINE;Dipstick Urine Color;LUIS M;;;Final Result ;02/01/2020 08:40:00URINALYSIS ROUTINE;Dipstick Urine Turbidity;CLOUDY;;;Final Result ;02/01/2020 08:40:00URINALYSIS ROUTINE;Dipstick Specific [place];1.020;(1.000-1.030);;Final Result ;02/01/2020 08:40:00URINALYSIS ROUTINE;Dipstick Urine pH;5.0;(5.0- 8.0);;Final Result ;02/01/2020 08:40:00URINALYSIS ROUTINE;Dipstick Urine Leucoesterase;2 ;;;Final Result ;02/01/2020 08:40:00URINALYSIS ROUTINE;Dipstick Urine Nitrate;NEGATIVE;;;Final Result ;02/01/2020 08:40:00URINALYSIS ROUTINE;Dipstick Urine Protein;30 [ 1 ];;;Final Result ;02/01/2020 08:40:00URINALYSIS ROUTINE;Dipstick Urine Glucose;NORMAL;;;Final Result ;02/01/2020 08:40:00URINALYSIS ROUTINE;Dipstick Urine Ketone;NEGATIVE;;;Final Result ;02/01/2020 08:40:00URINALYSIS ROUTINE;Dipstick Urine Urobilinogen;NORMAL;;;Final Result ;02/01/2020 08:40:00URINALYSIS ROUTINE;Dipstick Urine Bili;NEGATIVE;;;Final Result ;02/01/2020 08:40:00URINALYSIS ROUTINE;Dipstick Urine Hgb;3 ;;;Final Result ;02/01/2020 08:40:00URINE MICROSCOPIC;Microscopic Urine WBC;25-50;;;Final Result ;02/01/2020 08:40:00URINE MICROSCOPIC;Microscopic Urine RBC; > 100;;;Final Result ;02/01/2020 08:40:00URINE MICROSCOPIC;Microscopic Urine BACT;MODERATE;;;Final Result ;02/01/2020 08:40:00URINE MICROSCOPIC;Microscopic Urine Epi;[place];;;Final Result ;02/01/2020 08:40:00CBC DIFF;WBC;6.5;(4.8-10.8 K/uL);;Final Result ;02/01/2020 06:43:00CBC DIFF;RED BLOOD CELL;4.50;(4.20-5.40 M/uL);;Final Result ;02/01/2020 06:43:00CBC DIFF;HEMOGLOBIN;12.7;(12.0-16.0 gm/dL);;Final Result ;02/01/2020 06:43:00CBC DIFF;HEMATOCRIT;38.6;(36.0-48.0 %);;Final Result ;02/01/2020 06:43:00CBC DIFF;MCV;85.9;(80.0-100.0 fL);;Final Result ;02/01/2020 06:43:00CBC DIFF;MCHC;32.8;(30.0-36.5 %);;Final Result ;02/01/2020 06:43:00CBC DIFF;MCH;28.2;(27.0-34.0 pg);;Final Result ;02/01/2020 06:43:00CBC DIFF;RDW;12.9;(11.0-15.0 %);;F inal Result ;02/01/2020 06:43:00CBC DIFF;PLATELET COUNT;316;(130-450 K/uL);;Final Result ;02/01/2020 06:43:00CBC DIFF;MPV;7.4;(6.0-12.0 fL);;Final Result ;02/01/2020 06:43:00CBC DIFF;NEUTROPHIL;57;(37-80 %);;Final Result ;02/01/2020 06:43:00CBC DIFF;LYMPHOCYTE;34;(10-50 %);;Final Result ;02/01/2020 06:43:00CBC DIFF;MONOCYTE;7;(0-12 %);;Final Result ;02/01/2020 06:43:00CBC DIFF;EOSINOPHIL;2;( < =8 %);;Final Result ;02/01/2020 06:43:00CBC DIFF;BASOPHIL;0;( < =3 %);;Final Result ;02/01/2020 06:43:00CBC DIFF;DEAN#;3.7;(1.8-8.6 K/uL);;Final Result ;02/01/2020 06:43:00CBC DIFF;LYMPHOCYTE #;2.2;(0.5-5.0 K/uL);;Final Result ;02/01/2020 06:43:00CBC DIFF;MONOCYTE #;0.5;(0.0-1.3 K/uL);;Final Result ;02/01/2020 0 6:43:00CBC DIFF;EOSINOPHIL #;0.1;(0.0-0.9 K/uL);;Final Result ;02/01/2020 06:43:00CBC DIFF;BASOPHIL #;0.0;(0.0-0.3 K/ul);;Final Result ;02/01/2020 06:43:00COMPREHENSIVE PANEL;SODIUM;137;(136-145 mmol/L);;Final Result ;02/01/2020 06:43:00COMPREHENSIVE PANEL;POTASSIUM;4.3;(3.5-5.2 mmol/L);;Final Result ;02/01/2020 06:43:00COMPREHENSIVE PANEL;CHLORIDE;103;(100-108 mmol/L);;Final Result ;02/01/2020 06:43:00COMPREHENSIVE PANEL;CARBON DIOXIDE;23;(21-32 mmol/L);;Final Result ;02/01/2020 06:43:00COMPREHENSIVE PANEL;GLUCOSE;98;(70-100 mg/dL);;Final Result ;02/01/2020 06:43:00COMPREHENSIVE PANEL;BUN;15;(7-21 mg/dL);;Final Result ;02/01/2020 06:43:00COMPREHENSIVE PANEL;Creatinine;0.8;(0.6- 1.3 mg/dL);;Final Result ;02/01/2020 06:43:00COMPREHENSIVE PANEL;CALCIUM;8.6;(8.5-10.8 mg/dL);;Final Result ;02/01/2020 06:43:00COMPREHENSIVE PANEL;GFR; > 60;;;Final Result ;02/01/2020 06:43:00COMPREHENSIVE PANEL;TOTAL BILIRUBIN;0.4;(0.0-1.2 mg/dL);;Final Result ;02/01/2020 06:43:00COMPREHENSIVE PANEL;TOTAL PROTEIN;7.7;(6.4-8.2 gm/dL);;Final Result ;02/01/2020 06:43:00CO MPREHENSIVE PANEL;ALBUMIN;4.1;(3.4-4.8 gm/dL);;Final Result ;02/01/2020 06:43:00COMPREHENSIVE PANEL;ALK PHOS;118;(40-150 U/L);;Final Result ;02/01/2020 06:43:00COMPREHENSIVE PANEL;ALT(SGPT);39;(0-55 U/L);;Final Result ;02/01/2020 06:43:00COMPREHENSIVE PANEL;AST (SGOT);47 H;(5-37 U/L);;Final Result ;02/01/2020 06:43:00EKG/Rhythm Strip InterpretationProgress comments 1: On presentation the patient had stable vital signs and was resting in no distress. On exam the patient was resting with no s igns of distress. Patient had a soft nontender nondistended abdomen with no CVA tenderness. At this point since she stated that she had some hematuria and dysuria we did obtain labs including urinalysis as well as a left renal ultrasound. Urine is remarkable for likely UTI but lab work was nonactionable. Ultrasound showed no hydronephrosis with bilateral jets. At this point patient was treated with ciprofloxacin and was given Toradol for pain control as well as 1 Lortab. On reevaluation her pain improved. We discussed that she will be sent home with a course of ciprofloxacin and should follow up with her primary care doctor. She understood this and agreed with the plan. We discussed return precautions and she understood those as well. She will follow up with her primary care doctorDiagnosis: Back pain flank pain, UTIDiagnosis level 3Discharge condition: StableDischarge plan: Follow-up with your primary care doctorDisposition: homePatient did not require critical care timePhysician sign ature: Michelle AMADO signature date: 02/01/2020 10:47 Name Value Range Interpretation Code Description Data Victoria rce(s) Supporting Document(s) ID Date Data Source [id number] 02/01/2020 09:54:12 [facility], historyof kidney stones 02/01/2020 9:33 AMRENAL ULTRASOUNDCLINICAL INFORMATION: left flank pain, historyof kidney stones -- PAIN,UNSPECIFIEDCOMPARISON: 01/20/2020TECHNIQUE: Sonographic evaluation of the kidneys and bladder was performedusing grayscale ultrasound.FINDINGS:Right Kidney: Measures 9.9 cm.Parenchyma: Normal homogeneous echotexture.Hydronephrosis: None.Calculi: None.Focal Lesions: None.Left Kidney: Measures 10.2 cm.Parenchyma: Normal homogeneous echotexture.Hydronephrosis: None.Calculi: None.Focal Lesions: None.Aorta: Non-aneurysmal.Inferior Vena Cava: Patent.Bladder: EmptyJets: Bilateral ureteral jets are documented.Prevoid Volume: Not measured.Postvoid Residual Volume: Not measured.Miscellaneous: Fatty liverIMPRESSION:Normal renal ultrasound.END OF [facility] submits Radiology results to [facility] and[facility] then provides those same results to [facility]. Allresults are available to [facility] and [facility] provider portalusers. [facility] DICOM images are available to the[facility] provider portal users only. [facility] DICOMimages are not available to the [facility] provider portal users. 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 [facility] RBC >100 /HPF NONE SEEN ! [facility] [employer] has definedMicroscopic Hematuria as 3 or more RBC per highpowered field from a single positive urinalysis withmicroscopy. BACTERIA MODERATE /HPF NONE SEEN ! [facility] EPITHELIAL CELLS MANY /HPF NONE SEEN ! [facility] Date Data Source [id number] 02/01/2020 08:54:00 AM EST [facility] Name Value Range Interpretation Code Description Data Victoria rce(s) Supporting Document(s) COLOR LUIS M [facility] APPEARANCE CLOUDY CLEAR ! [facility] SPECIFIC GRAVITY 1.020 1.000-1.030 [facility] pH 5.0 5.0-8.0 [facility] LEUKOCYTES 2+ NEGATIVE ! [facility] NITRATE NEGATIVE NEGATIVE [facility] PROTEIN 30 [ 1+] mg/dL NEGATIVE ! [facility] GLUCOSE NORMAL mg/dL NORMAL [facility] KETONE NEGATIVE mg/dL NEGATIVE [facility] UROBILINOGEN NORMAL mg/dL [facility]AL [facility] BILIRUBIN NEGATIVE mg/dL NEGATIVE [facility] HEMOGLOBIN 3+ NEGATIVE ! [facility] ID Date Data Source [id number] 02/01/2020 09:05:00 AM EST [facility] Name Value Range Interpretation Code Description Data Victoria rce(s) Supporting Document(s) SODIUM 137 mmol/L 136-145 [facility] POTASSIUM 4.3 mmol/L 3.5-5.2 [facility] CHLORIDE 103 mmol/L 100-108 [facility] CO2 23 mmol/L 21-32 [facility] GLUCOSE 98 mg/dL 70-100 [facility] BUN 15 mg/dL 7-21 [facility] CREATININE 0.8 mg/dL 0.6-1.3 [facility] Normal Kidney Function or Mild Disease - GFR >OR= 60Chronic Kidney Disease - GFR 15-59Renal Failure - GFR < 15GFR not calculated on patients under 18 years of age. CALCIUM 8.6 mg/dL 8.5-10.8 [facility] GFR >60 [facility] T BILI 0.4 mg/dL 0.0-1.2 [facility] T PROTEIN 7.7 gm/dL 6.4-8.2 [facility] ALBUMIN 4.1 gm/dL 3.4-4.8 [facility] ALK PHOS 118 U/L 40-150 [facility] ALT (SGPT) 39 U/L 0-55 [facility] AST (SGOT) 47 U/L 5-37 H [facility] ID Date Data Source [id number] 02/01/2020 08:44:00 [facility] Name Value Range Interpretation Code Description Data Victoria rce(s) Supporting Document(s) WBC 6.5 K/uL 4.8-10.8 [facility] RBC 4.50 M/uL 4.20-5.40 [facility] HEMOGLOBIN 12.7 gm/dL 12.0-16.0 [facility] HEMATOCRIT 38.6 % 36.0-48.0 [facility] MCV 85.9 fL 80.0-100.0 [facility] MCHC 32.8 % 30.0-36.5 [facility] MCH 28.2 pg 27.0-34.0 [facility] RDW 12.9 % 11.0-15.0 [facility] PLATELET 316 K/uL 130-450 [facility] MPV 7.4 fL 6.0-12.0 [facility] NE% 57 % 37-80 [facility] LY% 34 % 10-50 [facility] MO% 7 % 0-12 [facility] Eosinophils [#/volume] in Blood by Automated count 2 % <=8 [facility] BA% 0 % <=3 [facility] NE# 3.7 K/uL 1.8-8.6 [facility] LYMPH# 2.2 K/uL 0.5-5.0 [facility] MONO# 0.5 K/uL 0.0-1.3 [facility] EOS# 0.1 K/uL 0.0-0.9 [facility] BASO# 0.0 K/ul 0.0-0.3 [facility] ID Date Data Source [id number] 02/01/2020 06:33:07 AM EST [facility] Status: FINAL (SIGNED)Full Name: Kade JONES Date: 1985Visit ID: [id number] Record Number: [id number]: 34YSex: FemaleRoom Location: ER ROOMSBed Location: ER ENTDate of Service: 01/23/2020 08:05Creation Date: 01/23/2020 08:05Created By: OMAYRA JORGEPrimary Care Physician: NONE, NONETime patient first seen: 0800 Informant: PatientHPI Chief Complaint: Right ear painHPI onset: YesterdayHPI comments: Patient was playing with her nephew and he threw a basketball and struck her in the right ear. SHe states that the ear itself is painful and feels "plugged". SHe has been using Tylenol but had little relief. She takes Lovenox for history of PE. She denies any loss of consciousness headache or blurry vision. No sore throat no TMJ pain no dental pain. No neck pain. She has had 3 other visits earlier this week for UTI pyelonephritis and abdominal pain but volunteered no complaints of those today.Review of SystemsAll systems reviewed and negative except as noted in HPIED Triage Note: pt c/o right ear pain after being hit in head with a basketball, pt reports taking tylenol 1000mg at 0500, pt states she is on a blood thinner [GARCÍA DUVAL 01/23/20 07:15] [MUKUND GARCÍA 01/23/20 07:17]Past Medical/Surgical HistoryPast medical/surgical history reviewedFull problems and procedures listProblem;Associated ICD-10-CM Code;Status;OnsetAppendectomy;None Associated;Completed;UnknownAsthma;None Associated;Active;UnknownCholecystectomy;None Associated;Completed;UnknownHypercholesterolemia;None Associated;Active;UnknownHome MedicationsHome medications reviewedcefPODOXime, 100 milligram orally 2 times per day HYDROcodone-acetaminophen 5 mg-325 mg, 1 tablet orally every 4 hours PRN pain, Start Date: 01/18/2020 hydrOXYzine HCL, 50 to 100 milligram orally every day at bedtime PRN Ibuprofen, 800 milligram orally 3 times per day PRN Phenazopyridine, 200 milligram orally 3 times per day Sulfamethoxazole-Trimethoprim 800 mg-160 mg (DS), 1 tablet orally 2 times per day AllergiesAllergies reviewedLast Verified By: GARCÍA DUVAL RN on 01/23/2020 07:16Motrin(on blood thinner), Penicillin V(Rash) Family HistoryFamily history reviewedMother (alive) 43Y Benign essential hypertension, Father 50Y ( [place] ) Social history reviewedVital SignsVital signs reviewedMaximum temperature within the last 24 hours: 98.4 FDate/time of maximum temperature: 01/23/2020 07:12Most recent vital signsBP: 123/84 01/23/2020 07:12 Pulse: 96 01/23/2020 07:12 Temp: 98.4 F 01/23/2020 07:12 Resp: 16 01/23/2020 07:12 O2 Sat: 95.0%(Room Air) 01/23/2020 07:12 Calculated BMI: 50 01/23/2020 07:12 Admission height (inches): 61Admission weight (kgs): 118.6Triage Vital SignsTemp: 98.4F 01/23/2020 07:12 Pulse: 96 bpm 01/23/2020 07:12 Respirations: 16 01/23/2020 07:12 Blood Pressure: 123/84 mmHg 01/23/2020 07:12 O2Sat: 95 % 01/23/2020 07:12 Height: 61 in 01/23/2020 07:12 Weight: 118.6 kg 01/23/2020 07:12 Calculated BMI: 50 01/23/2020 07:12 Physical ExamConst: appears stated age, comments: Overweight white female in minimal distressEyes: extraocular movements intact, PERRL, no conjunctival injection, sclera anicteric, comments: No nystagmusHENT: Tympanic membrane normal, No nasal discharge, Oral mucosa moist/clear, comments: No perforation no hemotympanum there is mild tragus pain on palpation there is no pre or postauricular pain. The right auricle is contused at the most superior aspect but there is no hematoma appreciated No mastoid tenderness on palpation/percussionNeckcomments: SuppleCVS: No jugular venous distentionRespcomments: Speaking full sentencesMusc: Joints normalExtrem: No clubbing/cyanosis/edemaNeuro: No lateralizing deficits, comments: Awake alert interactiveSkin: No rashPulses Exam:Right radial pulse: 2 plusInitial impression: Contusion hematoma perforation hemotympanum cerumen impactionLaboratory resultsNo Lab Results for the past 24 hoursOrder;Test;Value;Reference Range;Comments;Status;CollectionEKG/Rhythm Strip InterpretationDiagnosis: Right ear contusionDiagnosis level 1Disposition time: 809 Discharge condition: StableDischarge plan: Tylenol, indirect iceCare transferred to Radha Apple [place]Disposition: homePatient did not require critical care timePhysician signature: Asim JOHNSON signature date: 01/23/2020 08:14 Name Value Range Interpretation Code Description Data Victoria rce(s) Supporting Document(s) ID Date Data Source [id number] 02/01/2020 06:30:07 AM [facility] Status: FINAL (SIGNED)Full Name: Kade JONES Date: 1985Visit ID: [id number] Record Number: [id number]: 34YSex: FemaleRoom Location: ER ROOMSBed Location: ER 14Date of Service: 01/16/2020 07:13Creation Date: 01/16/2020 07:13Created By: [facility] Care Physician: OUT OF TOWN, OUT OF TOWNTime patient first seen: 0710 HPI Chief Complaint: Patient is a 34-year-old female resents to ER with complaint of left flank pain. Reports the pain has been persistent for the last several days. Has a history of a PE, maintained on Lovenox. She states the pain began 3 to 4 days ago. There are some nausea but no vomiting. She does have a history of renal stones. She is no fevers, no chills. She has decreased appetite.Review of SystemsAll systems reviewed and negative except as noted in HPIED Triage Note: Present with c/o left back radiating to left flank pain for the last couple of days. States hx kidney stones. Pt states has had nausea but no vomiting. Denies difficulty urinating or diarrhea. [AYO OJEDA 01/16/20 07:06]Past Medical/Surgical HistoryPast medical/surgical history reviewedFull problems and procedures listProblem;Associated ICD-10-CM Code;Status;OnsetAppendectomy;None Associated;Completed;UnknownAsthma;None Associated;Active;UnknownCholecystectomy;None Associated;Completed;UnknownHypercholesterolemia;None Associated;Active;UnknownHome MedicationsHome medications reviewedhydrOXYzine HCL, 50 to 100 milligram orally every day at bedtime PRN AllergiesAllergies reviewedLast Verified By: AYO OJEDA RN on 01/16/2020 07:07Penicillin V(Rash) Family HistoryFamily history reviewedMother (alive) 43Y Benign essential hypertension, Father 50Y ( [place] ) Social history reviewedVital SignsVital signs reviewedMaximum temperature within the last 24 hours: 98.3 FDate/time of maximum temperature: 01/16/2020 07:02Most recent vital signsBP: 122/105 01/16/2020 07:02 Pulse: 80 01/16/2020 07:02 Temp: 98.3 F 01/16/2020 07:02 Resp: 18 01/16/2020 07:02 O2 Sat: 97.0%(Room Air) 01/16/2020 07:02 Calculated BMI: 50 01/16/2020 07:02 Admission height (inches): 61Admission weight (kgs): 118.6Triage Vital SignsTemp: 98.3F 01/16/2020 07:02 Pulse: 80 bpm 01/16/2020 07:02 Respirations: 18 01/16/2020 07:02 Blood Pressure: 122/105 mmHg 01/16/2020 07:02 O2Sat: 97 % 01/16/2020 07:02 Height: 61 in 01/16/2020 07:02 Weight: 118.6 kg 01/16/2020 07:02 Calculated BMI: 50 01/16/2020 07:02 Physical ExamConstcomments: General: NAD, calm, cooperative, AAOx3 Eyes: EOMI, Pupils equal and reactive, No Scleral icterus Head: AT/NC, MMM and intact Neck: No lymphadenopathy, no JVD, no Thyromegaly Cardio: Regular rate and rhythm, No murmurs, Gallops, or Rubs Resp: Clear to auscultation, No wheezing, rhonchi, or rales, unlabored effort Abdomen: Soft, Non-tender, no rebound tenderness, no masses Extremities: Warm, well perfused, Cap refill <3 seconds, no C/C/E Neuro: Motor: 5/5 B/L upper and lower extremities Sensory: Grossly in tact CN2-12 intact Psych: Normal speech, no suicidal or homicidal ideations Skin: No rash, No bruising present Back: No step offs,Positive CVA tenderness on left, no spinal tendernessInitial impression: Left-sided abdominal pain flank pain, rule out kidney stone.OrdersStart Date;Description;Frequency;Ordered By;[id number]/16/2020;CT-ABD PELVIS NO CONTRAST (DRY) ;Once;JO ANN ELDEROTHY;Today01/16/2020;ED INITIATE ABDOMINAL PAIN PATHWAY ;Once;ELDERJO ANNSIERRA;01/16/2020;IV - PERIPHERAL - INSERT & MAINTAIN ;Once;ELDERJO ANNSIERRA;01/16/2020;AMYLASE ;Once;ELDER SIERRA;01/16/2020;CBC DIFF ;Once;ELDER, SIERRA;01/16/2020;COMPREHENSIVE PANEL ;Once;ELDERSIERRA;T oday01/16/2020;LACTIC ACID ;Once;ELDER SIERRA;01/16/2020;LIPASE ;Once;ELDER SIERRA;01/16/2020; TEST - SERUM ;Once;ELDERJO ANNSIERRA;01/16/2020;PT/INR ;Once;ELDER, SIERRA;01/16/2020;PTT ;Once;ELDERJO ANNSIERRA;01/16/2020;MORPHINE 4 MG/1 ML IVP ;ED - ONE TIME ONLY;ELDERJO ANNSIERRA;Egmlwnnv29/2/2020;ONDANSETRON HCL (PF) 4 MG/2 ML IVP ;ED - ONE TIME ONLY;ISERRA ELDER;Jjbvjovf50/2/2020;SODIUM CHLORIDE 0.9% 1,000 ML IV ;ED - ONE TIME ONLY;SIERRA ELDER;Fzslieiw74/2/2020;URINALYSIS ROUTINE ;Once;SONIA BAKER;Today01/16/2020;URINE MICROSCOPIC ;Once;SONIA BAKER;Today2019;CULTURE URINE ;Once;SONIA BAKER;Today01/17/2020;ED-NPO ;Meals;SIERRA ELDER;Future;CEFTRIAXONE ADDV 1GM 1 GM QBAG IPB ;ED - ONE TIME ONLY;SIERRA ELDER;;FENTANYL 50 MCG/1 ML IVP ;ED - ONE TIME ONLY;SIERRA ELDER;Laboratory resultsLab Results for the past 24 hoursOrder;Test;Value;Reference Range;Comments;Status;CollectionURINALYSIS ROUTINE;Dipstick Urine Color;RED;;;Final Result ;01/16/2020 08:40:32URINALYSIS ROUTINE;Dipstick Urine Turbidity;CLOUDY;;;Final Result ;01/16/2020 08:40:32URINALYSIS ROUTINE;Dipstick Specific [place];1.020;(1.000-1.030);;Final Result ;01/16/2020 08:40:32URINALYSIS ROUTINE;Dipstick Urine pH;5.0;(5.0-8.0);;Final Result ;01/16/2020 08:40:32URINALYSIS ROUTINE;Dipstick Urine Leucoesterase;2 ;;;Final Result ;01/16/2020 08:40:32URINALYSIS ROUTINE;Dipstick Urine Nitrate;NEGATIVE;;;Final Result ;01/16/2020 08:40:32URINALYSIS ROUTINE;Dipstick Urine Protein;100 [ 2 ];;;Final Result ;01/16/2020 08:40:32URINALYSIS ROUTINE;Dipstick Urine Glucose;NORMAL;;;Final Result ;01/16/2020 08:40:32URINALYSIS ROUTINE;Dipstick Urine Ketone;TRACE;;;Final Result ;01/16/2020 08:40:32URINALYSIS ROUTINE;Dipstick Urine Urobilinogen;NORMAL;;;Final Result ;01/16/2020 08:40:32URINALYSIS ROUTINE;Dipstick Urine Bili;NEGATIVE;;;Final Result ;01/16/2020 08:40:32URINALYSIS ROUTINE;Dipstick Urine Hgb;3 ;;;Final Result ;01/16/2020 08:40:32AMYLASE;AMYLASE;43;(25-125 U/L);;Final Result ;01/16/2020 07:35:00CBC DIFF;WBC;6.6;(4.8-10.8 K/uL);;Final Result ;01/16/2020 07:35:00CBC DIFF;RED BLOOD CELL;4.13 L;(4.20-5.40 M/uL);;Final Result ;01/16/2020 07:35:00CBC DIFF;HEMOGLOBIN;12.2;(12.0-16.0 gm/dL);;Final Result ;01/16/2020 07:35:00CBC DIFF;HEMATOCRIT;35.8 L;(36.0-48.0 %);;Final Result ;01/16/2020 07:35:00CBC DIFF;MCV;86.6;(80.0-100.0 fL);;Final Result ;01/16/2020 07:35:00CBC DIFF;MCHC;33.9;(30.0-36.5 %);;Final Result ;01/16/2020 07:35:00CBC DIFF;MCH;29.4;(27.0-34.0 pg);;Final Result ;01/16/2020 07:35:00CBC DIFF;RDW;13.1;(11.0-15.0 %);;Final Result ;01/16/2020 07:35:00CBC DIFF;PLATELET COUNT;313;(130-450 K/uL);;Final Result ;01/16/2020 07:35:00CBC DIFF;MPV;6.5;(6.0-12.0 fL);;Final Result ;01/16/2020 07:35:00CBC DIFF;NEUTROPHIL;68;(37-80 %);;Final Result ;01/16/2020 07:35:00CBC DIFF;LYMPHOCYTE;25;(10-50 %);;Final Result ;01/16/2020 07:35:00CBC DIFF;MONOCYTE;5;(0-12 %);;Final Result ;01/16/2020 07:35:00CBC DIFF;EOSINOPHIL;1;( < =8 %);;Final Result ;01/16/2020 07:35:00CBC DIFF;BASOPHIL;1;( < =3 %);;Final Result ;01/16/2020 07:35:00CBC DIFF;DEAN#;4.5;(1.8-8.6 K/uL);;Final Result ;01/16/2020 07:35:00CBC DIFF;LYMPHOCYTE #;1.6;(0.5-5.0 K/uL);;Final Result ;01/16/2020 07:35:00CBC DIF F;MONOCYTE #;0.3;(0.0-1.3 K/uL);;Final Result ;01/16/2020 07:35:00CBC DIFF;EOSINOPHIL #;0.1;(0.0-0.9 K/uL);;Final Result ;01/16/2020 07:35:00CBC DIFF;BASOPHIL #;0.0;(0.0-0.3 K/ul);;Final Result ;01/16/2020 07:35:00COMPREHENSIVE PANEL;SODIUM;140;(136-145 mmol/L);;Final Result ;01/16/2020 07:35:00COMPREHENSIVE PANEL;POTASSIUM;4.3;(3.5-5.2 mmol/L);;Final Result ;01/16/2020 07:35:00COMPREHENSIVE PANEL;CHLORIDE;106;(100-108 mmol/L);;Final Result ;01/16/2020 07:35:00COMPREHENSIVE PANEL;CARBON DIOXIDE;24;(21-32 mmol/L);;Final Result ;01/16/2020 07:35:00COMPREHENSIVE PANEL;GLUCOSE;91;(70-100 mg/dL);;Final Result ;01/16/2020 07:35:00COMPREHENSIVE PANEL;BUN;11;(7-21 mg/dL);;Final Result ;01/16/2020 07:35:00COMPREHENSIVE PANEL;Creatinine;0.8;(0.6- 1.3 mg/dL);;Final Result ;01/16/2020 07:35:00COMPREHENSIVE PANEL;CALCIUM;8.1 L;(8.5-10.8 mg/dL);;Final Result ;01/16/2020 07:35:00COMPREHENSIVE PANEL;GFR; > 60;;;Final Result ;01/16/2020 07:35:00COMPREHENSIVE PANEL;TOTAL BILIRUBIN;0.3;(0.0-1.2 mg/dL);;Final Result ;01/16/2020 07:35:00COMPREHENSIVE PANEL;TOTAL PROTEIN;7.2;(6.4-8.2 gm/dL);;Final Result ;01/16/2020 07:35:00COMPREHENSIVE PANEL;ALBUMIN;3.8;(3.4-4.8 gm/dL);;Final Result ;01/16/2020 07:35:00COMPREHENSIVE PANEL;ALK PHOS;108;(40-150 U/L);;Final Result ;01/16/2020 07:35:00COMPREHENSIVE PANEL;ALT(SGPT);39;(0-55 U/L);;Final Result ; 07:35:00COMPREHENSIVE PANEL;AST (SGOT);39 H;(5-37 U/L);;Final Result ;01/16/2020 07:35:00LACTIC ACID;LACTIC ACID;1.1;(0.5-2.2 mmol/L);;Final Result ;01/16/2020 07:35:00LIPASE;LIPASE;24;(8-78 U/L);;Final Result ;01/16/2020 07:35:00PREGNANCY TEST - SERUM; TEST - SERUM;NEGATIVE;;;Final Result ;01/16/2020 07:35:00PT/INR;PROTIME;9.8;(9.4-12.4 sec);;Final Result ;01/16/2020 07:35:00PT/INR;INR;0.9;;;Final Result ;01/16/2020 07:35:00PTT;PTT;26.4;(25.6-36.4 sec);;Final Result ;01/16/2020 07:35:00CT results: 01/16/2020 7:[address] ABDOMEN AND PELVIS WITHOUT CONTRAST CLINICAL INFORMATION: NAUSEA WITH VOMITING, UNSPECIFIED,CT ABD PELVIS W/O -- NAUSEA WITH VOMITING, UNSPECIFIED left-sided abdominal pain COMPARISON: 02/16/2019 PROCEDURE: Contiguous images were obtained through the abdomen and pelvis without intravenous contrast. Automated exposure control, adjustment of the mA and/or kV according to patient size, and/or iterative reconstruction techniques were utilized for radiation dose optimization. FINDINGS: There is image degradation secondary to the patient's large body habitus and motion artifact Chest Base: No pleural nor pericardial effusion is seen. Liver/Biliary Tract: Status post cholecystectomy, hepatic steatosis Pancreas: Unremarkable. Spleen: Unremarkable. Adrenals: Unremarkable. Kidneys and Collecting Systems: Unremarkable. Lymph Nodes: Unremarkable. Vessels: Unremarkable for age. GI Tract/Mesentery and Peritoneal Cavity: Status post appendectomy. There is colonic diverticulosis predominantly of the sigmoid colon. No definite acute diverticulitis is seen Uterus/Ovaries: Unremarkable. Bladder: Unremarkable. Soft Tissues/Musculoskeletal: No acute abnormality. IMPRESSION: There is colonic diverticulosis predominantly of the sigmoid colon. No definite acute diverticulitis is seen END OF IMPRESSION [facility] submits Radiology results to [facility] and [facility] then provides those same results to [facility]. All results are available to [facility] and [facility] provider portal users. [facility] DICOM images are available to the [facility] provider portal users only. [facility] DICOM images are not available to the [facility] provider portal users. There is no current [facility] cross-[facility] functionality allowing images to be available through the [facility] to [facility] connectivity. Electronically signed By: Devonte Powers M.D. Read By: DEVONTE POWERS Date: 01/16/2020 08:14 EKG/Rhythm Strip InterpretationProgress Time 1: 0850 Progress comments 1: MDM: Patient is a 34-year-old female presents ER with complaint of left flank pain. CT demonstrates no evidence of kidney stone. UA demonstrates likely urinary tract infection. Recommend treatment with antibiotics. Patient will be discharged home with antibiotics and encouraged to continue Tylenol.Diagnosis: Acute pyelonephritisDiagnosis level 3Disposition time: 0855 Discharge condition: stable Discharge plan: Vantin, pyridium, follow up with your doctor. Disposition: homePatient did not require critical care timePhysician signature: Asim MITCHELL signature date: 01/16/2020 08:56 Name Value Range Interpretation Code Description Data Victoria rce(s) Supporting Document(s) ID Date Data Source [id number] 01/28/2020 01:03:15 PM EST [facility] Note Status: FINALFull Name: BILLY FIELD Date: 1985Visit ID: [id number] Record Number: [id number]: 34YSex: FemaleRoom Location: ER ROOMSBed Location: ER 11Date of Service: 01/20/2020 06:26Creation Date: 01/20/2020 06:26Created By: KUMAR WEBSTERPrimary Care Physician: NONE, NONETime patient first seen: 624 Informant: PatientHPI Chief Complaint: L side pain HPI onset: AcuteHPI duration: 4 days HPI timing: Still presentHPI severity score 5Scribe initial notes: 34-year-old female who presents to the ED with complaints of left side pain. Patient states she has been experiencing left side pain that radiates into her left abdomen for 4 days. She states she has been seen and evaluated in the ED was diagnosed with a kidney infection and was sent home on antibiotic therapy. She states she had a CT scan done that did not show kidney stones. She states the pain was bad yesterday but she just kept drinking water because in the past with her kidney stones she drink water it wo uld eventually help the pain. She denies any fever, chills, vomiting, chest pain, shortness of breath.Review of SystemsAll systems reviewed and negative except as noted in HPIED Triage Note: Per pt dx with kidney infection 2 days ago. Pain is getting worse. C/O left back pain radiating into left abdomen. 10/23. Positive hematuria. States taking antibiotic as prescribed/ [LISA BYERS 01/20/20 06:32]Past Medical/Surgical HistoryPast medical/surgical history reviewedFull problems and procedures listProblem;Associated ICD-10-CM Code;Status;OnsetAppendectomy;None Associated;Completed;UnknownAsthma;None Associated;Active;UnknownCholecystectomy;None Associated;Completed;UnknownHypercholesterolemia;None Associated;Active;UnknownHome MedicationsHome medications reviewedcefPODOXime, 100 milligram orally 2 times per day HYDROcodone-acetaminophen 5 mg-325 mg, 1 tablet orally every 4 hours PRN pain, Start Date: 01/18/2020 hydrOXYzine HCL, 50 to 100 milligram orally every day at bedtime PRN Phenazopyridine, 200 milligram orally 3 times per day Sulfamethoxazole- Trimethoprim 800 mg-160 mg (DS), 1 tablet orally 2 times per day AllergiesAllergies reviewedLast Verified By: LISA BYERS RN on 01/20/2020 06:32Penicillin V(Rash) Family HistoryFamily history reviewedMother (alive) 43Y Benign essential hypertension, Father 50Y ( [place] ) Social history reviewedVital SignsVital signs reviewedMaximum temperature within the last 24 hours: 98.8 FDate/time of maximum temperature: 01/20/2020 06:27Most recent vital signsBP: 157/122 01/20/2020 06:33 Pulse: 76 01/20/2020 06:27 Temp: 98.8 F 01/20/2020 06:27 Resp: 14 01/20/2020 06:27 O2 Sat: 99.0%(Room Air) 01/20/2020 06:27 Calculated BMI: 53.9 01/20/2020 06:27 Pain score 8Admission height (inches): 61Admission weight (kgs): 128Triage Vital SignsTemp: 98.8F 01/20/2020 06:27 Pulse: 76 bpm 01/20/2020 06:27 Respirations: 14 01/20/2020 06:27 Blood Pressure: 157/122 mmHg 01/20/2020 06:33 O2Sat: 99 % 01/20/2020 06:27 Height: 61 in 01/20/2020 06:27 Weight: 128 kg 01/20/2020 06:27 Calculated BMI: 53.9 01/20/2020 06:27 Physical ExamConstcomments: Obese white female, appears to be in moderate distress secondary to pain, she is sitting up on the stretcher holding onto her left side, comments: Patient is afebrile, hypertensive with BP of 157/122, vital signs otherwise stable.Eyes: within normal limits, extraocular movements intact, PERRL, no conjunctival injection, sclera anictericHENT: Within normal limits, Normocephalic atraumatic, No nasal discharge, Oral mucosa moist/clearNeck: Within normal limits, comments: SuppleCVS: Within normal limits, Regular rate and rhythm, comments: No murmurResp: Within normal limits, Clear to auscultation bilaterally, No wheezes/rales/rhonchiGI comments: Obese, soft, nondistended, there is tenderness in the left mid abdomen to the left lower quadrant. There is no definite pelvic pain. Right abdomen is normal. There is no palpable masses.Musc: Within normal limits, Joints normal, Range of motion normal, comments: Full range of motionExtrem: Within normal limitsExtremcomments: Moves all extremitiesNeuro: Within normal limits, No lateralizing deficits, comments: Awake, alert, interactivePsychWithin normal limits: False, comments: Anxio usGUcomments: Not examinedSkin: Within normal limits, No rash, No bruising, comments: Warm and dryBack: Flexion to 90 degrees, comments: Left CVA tendernessPulses Exam:Right radial pulse: 2 plusInitial impression: Re- evaluation for ureteral colic, acute diverticulitis, acute colitis, ovarian pain We will check labs, patient will be placed on n.p.o. status and she will receive 4 of IV Zofran and 30 of IV Toradol. Urine will be collected and sent to lab for urinalysis. Patient has been seen and evaluated in the ED 2 times in the past 4 days. She has had a negative CT scan and negative ultrasound therefore imaging is not warranted at this time.OrdersStart Date;Description;Frequency;Ordered By;[id number]/20/2020;ED INITIATE ABDOMINAL PAIN PATHWAY ;Once;JEROME PAIGE;Today01/20/2020;IV - PERIPHERAL - INSERT & MAINTAIN ;Once;JEROME PAIGE;Today01/20/2020; TEST - SERUM ;Once;JEROME PAIGE;01/20/2020;CBC DIFF ;Once;JEROME PAIGE;01/20/2020;COMPREHENSIVE PANEL ;Once;JEROME PAIGE;01/20/2020;LACTIC ACID ;Once;JEROME PAIGE;01/20/2020;PT/INR ;Once;JEROME PAIGE;01/20/2020;PTT ;Once;JEROME PAIGE;01/20/2020;KETOROLAC 30 MG/1 ML IVP ;ED - ONE TIME ONLY;JEROME PAIGE;Kbktla4001/20/2020;ONDANSETRON HCL (PF) 4 MG/2 ML IVP ;ED - ONE TIME ONLY;JEROME PAIGE;Ygcagv3601/20/2020;SODIUM CHLORIDE 0.9% 1,000 ML IV ;ED - ONE TIME ONLY;JEROME PAIGE;Msdtbj3601/21/2020;ED-NPO ;Meals;JEROME PAIGE;Future;Point of Care URINE DIPSTICK ;Once;JEROME PAIGE;;URINALYSIS ROUTINE ;Once;JEROME PAIGE;Laboratory resultsLab Results for the past 24 hoursOrder;Test;Value;Reference Range;Comments;Status;CollectionCBC DIFF;WBC;6.3;(4.8-10.8 K/uL);;Final Result ;01/20/2020 06:44:47CBC DIFF;RED BLOOD CELL;4.10 L;(4.20-5.40 M/uL);;Final Result ;01/20/2020 06:44:47CBC DIFF;HEMOGLOBIN;12.3;(12.0-16.0 gm/dL);;Final Result ;01/20/2020 06:44:47CBC DIFF;HEMATOCRIT;35.9 L;(36.0-48.0 %);;Final Result ;01/20/2020 06:44:47CBC DIFF;MCV;87.5;(80.0-100.0 fL);;Final Result ;01/20/2020 06:44:47CBC DIFF;MCHC;34.4;(30.0-36.5 %);;Final Result ;01/20/2020 06:44:47CBC DIFF;MCH;30.1;(27.0-34.0 pg);;Final Result ;01/20/2020 06:44:47CBC DIFF;RDW;13.2;(11.0-15.0 %);;Final Result ;01/20/2020 06:44:47CBC DIFF;PLATELET COUNT;290;(130- 450 K/uL);;Final Result ;01/20/2020 06:44:47CBC DIFF;MPV;6.4;(6.0-12.0 fL);;Final Result ;01/20/2020 06:44:47CBC DIFF;NEUTROPHIL;58;(37-80 %);;Final Result ;01/20/2020 06:44:47CBC DIFF;LYMPHOCYTE;31;(10-50 %);;Final Result ;01/20/2020 06:44:47CBC DIFF;MONOCYTE;8;(0-12 %);;Final Result ;01/20/2020 06:44:47CBC DIFF;EOSINOPHIL;2;( < =8 %);;Final Result ;01/20/2020 06:44:47CBC DIFF;BASOPHIL;1;( < =3 %);;Final Result ;01/20/2020 06:44:47CBC DIFF;DEAN#;3.7;(1.8-8.6 K/uL);;Final Result ;01/20/2020 06:44:47CBC DIFF;LYMPHOCYTE #;2.0;(0.5-5.0 K/uL);;Final Result ;01/20/2020 06:44:47CBC DIFF;MONOCYTE #;0.5;(0.0-1.3 K/uL);;Final Result ;01/20/2020 06:44:47CBC D IFF;EOSINOPHIL #;0.2;(0.0-0.9 K/uL);;Final Result ;01/20/2020 06:44:47CBC DIFF;BASOPHIL #;0.0;(0.0-0.3 K/ul);;Final Result ;01/20/2020 06:44:47EKG/Rhythm Strip InterpretationProgress Time 1: 0635 Progress comments 1: I reviewed patient's CT scan from 01/16/2020 which showed diverticulosis with no evidence of diverticulitis and no evidence of any kidney stones. I reviewed the renal bladder ultrasound from 12/18/2019 which shows ureteral jets with no hydronephrosis or nephrolithiasis. Reviewed patient's charts from those visits which shows on 01/16/2020 patient was diagnosed with UTI and was placed on Vantin and Pyridium and her urine culture showed mixed radha. An 01/18/2020 patient was sent on Bactrim DS as well as hydrocodone.Progress time 2: 0700 Progress comments 2: Care will be transferred to daytime provider pending test results and improvement of symptoms. Diagnosis: Acute left abdominal painDiagnosis level 3Disposition time: 0700 Discharge condition: StableDischarge plan: Transfer care to daytime provider Care transferred to Rahda Lee Patient did not require critical care timeActing as scribe in the presence of: Dianne Sales signature: KUMAR Hall signature date: 01/20/2020 06:52Physician signature: FAUSTO RICKhyadamscirussell signature date: 01/20/2020 23:42 Name Value Range Interpretation Code Description 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 Supporting Document(s) ID Date Data Source [id number] 01/28/2020 10:48:00 AM EST [facility] Name Value Range Interpretation Code Description Data [facility] Supporting Document(s) SODIUM 137 mmol/L 136-145 [facility] POTASSIUM 4.3 mmol/L 3.5-5.2 [facility] CHLORIDE 104 mmol/L 100-108 [facility] CO2 24 mmol/L 21-32 [facility] GLUCOSE 93 mg/dL 70-100 [facility] BUN 16 mg/dL 7-21 [facility] CREATININE 0.7 mg/dL 0.6-1.3 [facility] Normal Kidney Function or Mild Disease - GFR >OR= 60Chronic Kidney Disease - GFR 15-59Renal Failure - GFR < 15GFR not calculated on patients under 18 years of age. CALCIUM 8.7 mg/dL 8.5-10.8 [facility] GFR >60 [facility] T BILI 0.2 mg/dL 0.0-1.2 [facility] T PROTEIN 7.8 gm/dL 6.4-8.2 [facility] ALBUMIN 4.2 gm/dL 3.4-4.8 [facility] ALK PHOS 115 U/L 40-150 [facility] ALT (SGPT) 43 U/L 0-55 [facility] AST (SGOT) 33 U/L 5-37 [facility] ID Date Data Source [id number] 01/28/2020 10:42:00 AM EST [facility] Name Value Range Interpretation Code Description Data Victoria rce(s) Supporting Document(s) URINE MICRO [facility] WBC 0-2 /HPF 0-2 [facility] RBC NONE SEEN /HPF NONE SEEN [facility] BACTERIA FEW /HPF NONE SEEN ! [facility] EPITHELIAL CELLS RARE /HPF NONE SEEN ! [facility] al ID Date Data Source [id number] 01/28/2020 10:36:00 AM EST [facility] al Name Value Range Interpretation Code Description Data Victoria rce(s) Supporting Document(s) COLOR YELLOW [facility] APPEARANCE CLEAR CLEAR [facility] SPECIFIC GRAVITY 1.020 1.000-1.030 [facility] ital pH 6.0 5.0-8.0 [facility] LEUKOCYTES TRACE NEGATIVE ! [facility] NITRATE NEGATIVE NEGATIVE [facility] PROTEIN NEGATIVE mg/dL NEGATIVE [facility] GLUCOSE NORMAL mg/dL NORMAL [facility] KETONE NEGATIVE mg/dL NEGATIVE [facility] UROBILINOGEN NORMAL mg/dL NORMAL [facility] BILIRUBIN NEGATIVE mg/dL NEGATIVE [facility] HEMOGLOBIN TRACE NEGATIVE ! [facility] ID Date Data Source [id number] 01/28/2020 10:24:00 AM EST [facility] al Name Value Range Interpretation Code Description Data Victoria rce(s) Supporting Document(s) WBC 7.5 K/uL 4.8-10.8 [facility] RBC 4.40 M/uL 4.20-5.40 [facility] HEMOGLOBIN 12.7 gm/dL 12.0-16.0 [facility] HEMATOCRIT 38.0 % 36.0-48.0 [facility] MCV 86.4 fL 80.0-100.0 [facility] MCHC 33.4 % 30.0-36.5 [facility] MCH 28.9 pg 27.0-34.0 [facility] RDW 12.9 % 11.0-15.0 [facility] PLATELET 307 K/uL 130-450 [facility] MPV 6.7 fL 6.0-12.0 [facility] NE% 65 % 37-80 [facility] LY% 25 % 10-50 [facility] MO% 8 % 0-12 [facility] Eosinophils [#/volume] in Blood by Automated count 2 % <=8 [facility] BA% 0 % <=3 [facility] NE# 4.9 K/uL 1.8-8.6 [facility] LYMPH# 1.9 K/uL 0.5-5.0 [facility] MONO# 0.6 K/uL 0.0-1.3 [facility] EOS# 0.1 K/uL 0.0-0.9 [facility] BASO# 0.0 K/ul 0.0-0.3 [facility] ID Date Data Source [id number] 01/20/2020 11:27:04 AM EST [facility] Note status: FINAL (SIGNED)Full Name: Marybeth JONES of : 1985Visit ID: [id number] Record Number: [id number]: 34YSex: FemaleRoom Location: ER ROOMSBed Location: ER 11Date of Service: 01/20/2020 07:15Creation Date: 01/20/2020 07:15Created by: Marcia LEE [facility] Physician: NONE, NONEProgress comments 1: Patient was signed out from the prior team please refer to the note for full history physical details. At time of signout patient was pending labs. Lab work was reviewed and urinalysis showed hematuria as well as concerns for infection. The patient already been treated with 2 regimens of antibiotics. Patient is CT scan and ultrasounds were reviewed and were nonactionable from the prior week. Progress comments 2: On reevaluation patient had improvement after dose of morphine. Labs remarkable for possible UTI however patient was still on Bactrim so we told her to continue the Bactrim. Ultrasound showed a right ovarian cyst but otherwise were nonactionable. At this point patient requested discharge. We discussed following up with her primary care doctor further management. We discussed she would be called if her urine culture grew out something that was not susceptible to Bactrim. She understood this and agreed the plan.Diagnosis: UTI flank painDiagnosis level 3Disposition: HomeDischarge condition: StableDischarge Plan: Call your PCP tomorrowPatient did not require critical care timePhysician signature: MYLES LEE [facility] HOSPITALhysician signature date: 01/20/2020 11:26 Name Value Range Interpretation Code Description Data Victoria rce(s) Supporting Document(s) ID Date Data Source [id number] 01/20/2020 10:24:33 AM EST [facility] 01/20/2020 10:08 AMPELVIC ULTRASOUND WITH TRANSVAGINALCLINICAL INFORMATION: -- LEFT LOWER QUADRANT PAINCOMPARISON: None.PELVIC ULTRASOUND TECHNIQUE: Sonographic evaluation of the pelvic organs wasperformed via transabdominal and transvaginal technique using grayscaleultrasound. Color flow Doppler ultrasound and spectral Doppler analysis werealso utilized.FINDINGS:Transabdominal ultrasound finding:Uterus measure 8.7 x 4.6 x 5.7 cm. Normal echogenicity. No fibroid noted.Endometrium measured 4 mm in size.Right ovary measured 2.5 x 1.8 x 2.2 cm. There is a cystic check cyst seen inthe right ovary measuring 1.8 x 1.7 x 1.7 cm with septation.Left ovary measured 2.8 x 1.9 x 1.8 cm. Normal echogenicity and color flow andno mass seen.No fluid the cul-de-sac. Urinary bladder is not fully distended.Patient refused transvaginal ultrasound.IMPRESSION:Right ovary septated cyst could be hemorrhagic however for further evaluationtransvaginal ultrasound would be helpful.END OF IM[facility]IONM[facility] then provides those same results to [facility]. Allresults are available to [facility] and [facility] provider portalusers. [facility] DICOM images are available to the[facility] provider portal users only. [facility] DICOMimages are not available to the [facility] provider portal users. There isno current [facility] cross-RHIO functionality allowing images to be available throughthe RHIO to RHIO connectivity.Electronically signed By: Desmond Calhoun M.D.Read By: DESMOND Pantoja: 01/20/2020 10:21 Name Value Range Interpretation Code Description Data [facility] rce(s) Supporting Document(s) ID Date Data Source [id number] 01/22/2020 11:24:00 AM EST [facility] CULTURE OBSERVATIONS Mixed growth consi stent with skin radha present Name Value Range Interpretation Code Description Data Victoria rce(s) Supporting Document(s) ID Date Data Source [id number] 01/20/2020 07:55:00 AM EST [facility] Name Value Range Interpretation Code Description Data Victoria rce(s) Supporting Document(s) URINE MICRO [facility] WBC 10-25 /HPF 0-2 ! [facility] RBC >100 /HPF NONE SEEN ! [facility] [employer] has definedMicroscopic Hematuria as 3 or more RBC per highpowered field from a single positive urinalysis withmicroscopy. BACTERIA FEW /HPF NONE SEEN ! [facility] EPITHELIAL CELLS MANY /HPF NONE SEEN ! [facility] ID Date Data Source [id number] 01/20/2020 07:52:00 AM EST [facility] Name Value Range Interpretation Code Description Data Victoria rce(s) Supporting Document(s) COLOR LUIS M [facility] APPEARANCE CLOUDY CLEAR ! [facility] SPECIFIC GRAVITY 1.020 1.000-1.030 [facility] ital pH 5.0 5.0-8.0 [facility] LEUKOCYTES 2+ NEGATIVE ! [facility] NITRATE NEGATIVE NEGATIVE [facility] PROTEIN 30 [ 1+] mg/dL NEGATIVE ! [facility] GLUCOSE NORMAL mg/dL NORMAL [facility] KETONE NEGATIVE mg/dL NEGATIVE [facility] UROBILINOGEN NORMAL mg/dL NORMAL [facility] BILIRUBIN NEGATIVE mg/dL NEGATIVE [facility] HEMOGLOBIN 3+ NEGATIVE ! [facility] ID Date Data Source [id number] 01/20/2020 10:22:39 AM EST [facility] left lower back and flank pain01/20/2020 10:08 AMRENAL ULTRASOUNDCLINICAL INFORMATION: left lower back and flank pain -- PAIN, UNSPECIFIEDCOMPARISON: None.TECHNIQUE: Sonographic evaluation of the 01/2020 was performed usinggrayscale ultrasound.FINDINGS:Right Kidney: Measures 9.5 cm.Parenchyma: Normal homogeneous echotexture.Hydronephrosis: None.Calculi: None.Focal Lesions: None.Left Kidney: Measures 9.9 cm.Parenchyma: Normal homogeneous echotexture.Hydronephrosis: None.Calculi: None.Focal Lesions: None.Aorta: Non-aneurysmal.Inferior Vena Cava: Patent.Bladder: No discrete bladder wall thickening.Jets: Bilateral ureteral jets are documented.Prevoid Volume: 55 mLPostvoid Residual Volume: Not measured.Miscellaneous: Fatty liverIMPRESSION:Normal renal ultrasound.END [facility] submits Radiology results to [facility] then provides those same results to [facility]. Allresults are available to [facility] and [facility] provider portalusers. [facility] DICOM images are available to the[facility] provider portal users only. [facility] DICOMimages are not available to the [facility] provider portal users. There isno current [facility] [[email or web address]]-[facility] functionality allowing images to be available through[facility] to [facility] connectivity.Electronically signed By: Desmond Calhoun M.D.Read By: DESMOND CALHOUNDate: 01/20/2020 10:19 Name Value Range Interpretation Code Description Data Victoria rce(s) Supporting Document(s) ID Date Data Source [id number] 01/20/2020 07:02:00 AM EST [facility] Name Value Range Interpretation Code Description Data Victoria rce(s) Supporting Document(s) LACTIC ACID 1.4 mmol/L 0.5-2.2 [facility] ID Date Data Source [id number] 01/20/2020 07:04:00 AM EST [facility] CMP Name Value Range Interpretation Code Description Data Victoria rce(s) Supporting Document(s) SODIUM 138 mmol/L 136-145 [facility] POTASSIUM 4.4 mmol/L 3.5-5.2 [facility] CHLORIDE 105 mmol/L 100-108 [facility] CO2 23 mmol/L 21-32 [facility] GLUCOSE 101 mg/dL 70-100 H [facility] BUN 13 mg/dL 7-21 [facility] CREATININE 0.7 mg/dL 0.6-1.3 [facility] Normal Kidney Function or Mild Disease - GFR >OR= 60Chronic Kidney Disease - GFR 15-59Renal Failure - GFR < 15GFR not calculated on patients under 18 years of age. CALCIUM 8.1 mg/dL 8.5-10.8 L [facility] GFR >60 [facility] T BILI 0.5 mg/dL 0.0-1.2 [facility] T PROTEIN 7.8 gm/dL 6.4-8.2 [facility] ALBUMIN 4.0 gm/dL 3.4-4.8 [facility] ALK PHOS 112 U/L 40-150 [facility] ALT (SGPT) 44 U/L 0-55 [facility] AST (SGOT) 46 U/L 5-37 H [facility] ID Date Data Source [id number] 01/20/2020 06:59:00 AM EST [facility] Name Value Range Interpretation Code Description Data Victoria rce(s) Supporting Document(s) PTT 26.7 sec 25.6-36.4 [facility] ID Date Data Source [id number] 01/20/2020 06:59:00 AM EST [facility] Name Value Range Interpretation Code Description Data Victoria rce(s) Supporting Document(s) PROTIME 11.1 sec 9.4-12.4 [facility] INR 1.0 [facility] INR INTERPERTATION 2.0 -3.0 THERAPEUTIC MONITORING2.5-3.5 HEART VALVE REPLACEMENT ID Date Data Source [id number] 01/20/2020 06:56:00 AM EST [facility] Name Value Range Interpretation Code Description Data Victoria rce(s) Supporting Document(s) SERUM TEST NEGATIVE [facility] spital PREGS METHODOLOGY [facility] denise ID Date Data Source [id number] 01/20/2020 06:49:00 AM EST [facility] CBC WITH DIFF Name Value Range Interpretation Code Description Data Victoria rce(s) Supporting Document(s) WBC 6.3 K/uL 4.8-10.8 [facility] RBC 4.10 M/uL 4.20-5.40 L [facility] HEMOGLOBIN 12.3 gm/dL 12.0-16.0 [facility] HEMATOCRIT 35.9 % 36.0-48.0 L [facility] MCV 87.5 fL 80.0-100.0 [facility] MCHC 34.4 % 30.0-36.5 [facility] MCH 30.1 pg 27.0-34.0 [facility] RDW 13.2 % 11.0-15.0 [facility] PLATELET 290 K/uL 130-450 [facility] MPV 6.4 fL 6.0-12.0 [facility] NE% 58 % 37-80 [facility] LY% 31 % 10-50 [facility] MO% 8 % 0-12 [facility] Eosinophils [#/volume] in Blood by Automated count 2 % <=8 [facility] BA% 1 % <=3 [facility] NE# 3.7 K/uL 1.8-8.6 [facility] LYMPH# 2.0 K/uL 0.5-5.0 [facility] MONO# 0.5 K/uL 0.0-1.3 [facility] EOS# 0.2 K/uL 0.0-0.9 [facility] BASO# 0.0 K/ul 0.0-0.3 [facility] ID Date Data Source [id number] 01/18/2020 06:51:04 PM EST [facility] Note Status: FINAL (SIGNED)Full Name: Kade JONES Date: 1985Visit ID: [id number] Record Number: [id number]: 34YSex: FemaleRoom Location: ER ROOMSBed Location: ER ORTHODate of Service: 01/18/2020 14:56Creation Date: 01/18/2020 14:56Created By: KUMAR WEBSTERPrimary Care Physician: NONE, NONETime patient first seen: 1455 Informant: PatientHPI Chief Complaint: Left flank painHPI onset: GradualHPI duration: 4 hours HPI timing: Still presentHPI severity score 6Scribe initial notes: This is a 34-year-old female who presents to the ED with complaints of left flank pain. Patient states she was here and evaluated in the ED 2 days ago for the same pain. She states she was diagnosed with a UTI and placed on antibiotic therapy which she states she is unable to state the name of the antibiotic she was placed on Please and states she takes it twice daily. She reports around 11 AM she started experiencing worsening left flank pain that radiates down to her lower abdomen. She took Tylenol for pain as she states that she cannot take NSAIDs as she is currently being maintained on Lovenox secondary to a PE. She reports history of numerous kidney stones in the past and reports this pain is somewhat similar. She states history of stent placement and lithotripsy once in the past. Patient states decrease in appetite and reports she has been experiencing nausea but denies any vomiting. She denies any fever, chest pain, palpitations, shortness of breath, fall or injury, history of shingles.Review of SystemsAll systems reviewed and negative except as noted in HPIED Triage Note: pt states was in ED and dx with uti and given antibiotics. pt states pain is worse with more blood in urine [MILAN NAJERA. 01/18/20 14:52]Past Medical/Surgical HistoryPast medical/surgical history reviewedFull problems and procedures listProblem;Associated ICD-10-CM Code;Status;OnsetAppendectomy;None Associated;Completed;UnknownAsthma;None Associated;Active;UnknownCholecystectomy;None Associated;Co mpleted;UnknownHypercholesterolemia;None Associated;Active;UnknownHome MedicationsHome medications reviewedcefPODOXime, 100 milligram orally 2 times per day hydrOXYzine HCL, 50 to 100 milligram orally every day at bedtime PRN Phenazopyridine, 200 milligram orally 3 times per day AllergiesAllergies reviewedLast Verified By: MILAN NAJERA RN on 01/18/2020 14:53Penicillin V(Rash) Family HistoryFamily history reviewedMother (alive) 43Y Benign essential hypertension, Father 50Y ( [place] ) Social history reviewedVital SignsVital signs reviewedMaximum temperature within the last 24 hours: 98.6 FDate/time of maximum temperature: 01/18/2020 14:49Most recent vital signsBP: 142/92 01/18/2020 16:46 Pulse: 77 01/18/2020 16:46 Temp: 98.6 F 01/18/2020 14:49 Resp: 18 01/18/2020 16:46 O2 Sat: 99.0%(Room Air) 01/18/2020 16:46 Calculated BMI: 49.7 01/18/2020 14:49 Admission height (inches): 61Admission weight (kgs): 118Triage Vital SignsTemp: 98.6F 01/18/2020 14:49 Pulse: 70 bpm 01/18/2020 14:49 Respirations: 22 01/18/2020 14:49 Blood Pressure: 125/92 mmHg 01/18/2020 14:49 O2Sat: 97 % 01/18/2020 14:49 Height: 61 in 01/18/2020 14:49 Weight: 118 kg 01/18/2020 14:49 Calculated BMI: 49.7 01/18/2020 14:49 Physical ExamConstcomments: About obese white female, sitting up in stretcher holding on to her left side, appears to be moderately uncomfortable secondary to pain, comments: Pt afebrile, vital signs stable Eyes: extraocular movements intact, PERRL, no conjunctival injection, sclera anictericHENT: Normocephalic atraumatic, No nasal discharge, Oral mucosa moist/clearNeckcomments: SuppleCVS: Regular rate and rhythm, No jugular venous distention, comments: no murmur Resp: Clear to auscultation bilaterally, No wheezes/rales/rhonchiGI: Non-tenderGI comments: Obese, nondistended, no apparent tenderness, no antibioticMusc: Joints normal, Range of motion normal, comments: Full ROMExtremcomments: moves all extrem Neuro: No lateralizing deficits, comments: awake, alert, interactive Psychcomments: alert GUcomments: not examined Skin: No rash, No bruisingBack: Flexion to 90 degrees, comments: L CVA tenderness w/ slight tenderness to L side Pulses Exam:Right radial pulse: 2 plusInitial impression: Pyelonephritis, hydronephrosis, UTI, cystitis, We will check labs, renal bladder ultrasound will be done, urine will be collected and sent to lab for urinalysis. Patient received 50 of IV fentanyl and IV hydration will be reassessed.OrdersStart Date;Description;Frequency;Ordered By;Ytcbxr7701/18/2020;RENAL/BLADDER U/S LIMITED ;Once;OMAYRA JORGE;01/18/2020;CBC DIFF ;Once;OMAYRA JORGE;01/18/2020;COMPREHENSIVE PANEL ;Once;OMAYRA JORGE;01/18/2020; TEST - SERUM ;Once;OMAYRA JORGE;Today01/18/2020;FENTANYL 50 MCG/1 ML IVP ;ED - ONE TIME ONLY;OMAYRA JORGE;Khrsiskd09/4/2020;SODIUM CHLORIDE 0.9% 1,000 ML IV ;ED - ONE TIME ONLY;OMAYRA JORGE;Zfzcawgq66/4/2020;SODIUM CHLORIDE 0.9% 500 ML IV ;ED - ONE TIME ONLY;OMAYRA JORGE;Vghqojhd75/4/2020;MEPERIDINE (PF) 50 MG/1 ML IVP ;ED - ONE TIME ONLY;OMAYRA JORGE;Vlswhgup96/4/2020;URINALYSIS ROUTINE ;Once;OMAYRA JORGE;Today;MEPERIDINE (PF) 50 MG IVP ;ED - ONE TIME ONLY;OMAYRA JORGE;Laboratory resultsLab Results for the past 24 hoursOrder;Test;Value;Reference Range;Comments;Status;CollectionCBC DIFF;WBC;7.2;(4.8-10.8 K/uL);;Final Result ;01/18/2020 15:37:00CBC DIFF;RED BLOOD CELL;4.01 L;(4.20-5.40 M/uL);;Final Result ;01/18/2020 15:37:00CBC DIFF;HEMOGLOBIN;11.5 L;(12.0-16.0 gm/dL);;Final Result ;01/18/2020 15:37:00CBC DIFF;HEMATOCRIT;34.7 L;(36.0-48.0 %);;Final Result ;01/18/2020 15:37:00CBC DIFF;MCV;86.3;(80.0- 100.0 fL);;Final Result ;01/18/2020 15:37:00CBC DIFF;MCHC;33.2;(30.0-36.5 %);;Final Result ;01/18/2020 15:37:00CBC DIFF;MCH;28.7;(27.0-34.0 pg);;Final Result ;01/18/2020 15:37:00CBC DIFF;RDW;12.4;(11.0-15.0 %);;Final Result ;01/18/2020 15:37:00CBC DIFF;PLATELET COUNT;307;(130- 450 K/uL);;Final Result ;01/18/2020 15:37:00CBC DIFF;MPV;6.7;(6.0-12.0 fL);;Final Result ;01/18/2020 15:37:00CBC DIFF;NEUTROPHIL;62;(37-80 %);;Final Result ;01/18/2020 15:37:00CBC DIFF;LYMPHOCYTE;30;(10-50 %);;Final Result ;01/18/2020 15:37:00CBC DIFF;MONOCYTE;6;(0-12 %);;Final Result ;01/18/2020 15:37:00CBC DIFF;EOSINOPHIL;2;( < =8 %);;Final Result ;01/18/2020 15:37:00CBC DIFF;BASOPHIL;0;( < =3 %);;Final Result ;01/18/2020 15:37:00CBC DIFF;DEAN#;4.5;(1.8-8.6 K/uL);;Final Result ;01/18/2020 15:37:00CBC DIFF;LYMPHOCYTE #;2.1;(0.5-5.0 K/uL);;Final Result ;01/18/2020 15:37:00CBC DIFF;MONOCYTE #;0.5;(0.0-1.3 K/uL);;Final Result ;01/18/2020 15:37:00CBC DIFF;EOSINOPHIL #;0.1;(0.0-0.9 K/uL);;Final Result ;01/18/2020 15:37:00CBC DIFF;BASOPHIL #;0.0;(0.0-0.3 K/ul);;Final Result ;01/18/2020 15:37:00COMPREHENSIVE PANEL;SODIUM;140;(136-145 mmol/L);;Final Result ;01/18/2020 15:37:00COMPREHENSIVE PANEL;POTASSIUM;4.0;(3.5-5.2 mmol/L);;Final Result ;01/18/2020 15:37:00COMPREHENSIVE PANEL;CHLORIDE;107;(100-108 mmol/L);;Final Result ;01/18/2020 15:37:00COMPREHENSIVE PANEL;CARBON DIOXIDE;24;(21-32 mmol/L);;Final Result ;01/18/2020 15:37:00COMPREHENSIVE PANEL;GLUCOSE;84;(70-100 mg/dL);;Final Result ;01/18/2020 15:37:00 COMPREHENSIVE PANEL;BUN;14;(7-21 mg/dL);;Final Result ;01/18/2020 15:37:00COMPREHENSIVE PANEL;Creatinine;0.7;(0.6-1.3 mg/dL);;Final Result ;01/18/2020 15:37:00COMPREHENSIVE PANEL;CALCIUM;8.2 L;(8.5-10.8 mg/dL);;Final Result ;01/18/2020 15:37:00COMPREHENSIVE PANEL;GFR; > 60;;;Final Result ;01/18/2020 15:37:00COMPREHENSIVE PANEL;TOTAL BILIRUBIN;0.3;(0.0- 1.2 mg/dL);;Final Result ;01/18/2020 15:37:00COMPREHENSIVE PANEL;TOTAL PROTEIN;7.2;(6.4-8.2 gm/dL);;Final Result ;01/18/2020 15:37:00COMPREHENSIVE PANEL;ALBUMIN;3.9;(3.4- 4.8 gm/dL);;Final Result ;01/18/2020 15 :37:00COMPREHENSIVE PANEL;ALK PHOS;106;(40-150 U/L);;Final Result ;01/18/2020 15:37:00COMPREHENSIVE PANEL;ALT(SGPT);46;(0-55 U/L);;Final Result ;01/18/2020 15:37:00COMPREHENSIVE PANEL;AST (SGOT);35;(5-37 U/L);;Final Result ;01/18/2020 15:37:00PREGNANCY TEST - SERUM; TEST - SERUM;NEGATIVE;;;Final Result ;01/18/2020 15:37:00RSLTS laboratory comments: labs reviewed; labs are essentially unremarkable. Ultrasound results: 01/18/2020 5:43 PM RENAL ULTRASOUND CLINICAL INFORMATION: -- Left flank pain COMPARISON: None. TECHNIQUE: Sonographic evaluation of the kidneys and bladder was performed using grayscale ultrasound. FINDINGS: These are normal in size and echo architecture with the right kidney measuring 10.4 cm the left kidney also measuring 10.4 cm maximal dimensions. No hydronephrosis nor nephrolithiasis is seen. The bladder is normal. Both ureteral jets are seen in the bladder and to completely upon voiding. IMPRESSION: No acute nor significant findings are seen. END OF IMPRESSION [facility] submits Radiology results to [facility] and [facility] then provides those same results to [facility]. All results are available to [facility] and [facility] provider portal users. [facility] DICOM images are available to the [facility] provider portal users only. [facility] DICOM images are not available to the [facility] provider portal users. There is no current [email or web address] functio nality allowing images to be available through the [facility] to [facility] connectivity. Electronically signed By: Devonte Powers M.D. Read By: DEVONTE POWERS Date: 01/18/2020 18:17EKG/Rhythm Strip InterpretationProgress Time 1: 1510 Progress comments 1: I reviewed patient's visit from 01/16/2020 which showed patient's urine showed 25-50 white cells with greater than 100 red cells and moderate bacteria. Patient was given a dose of IV ceftriaxone in the ED CT abdomen and pelvis was done that showed diverticulosis with no apparent diverticulitis and there were no evidence of any kidney stones in the reading. Reviewed patient's culture result from that visit which showed mixed growth consistent with skin radha meaning patient's urine was not a clean sample and no specific bacteria was found. Patient was discharged on 01/16/2020 on Vantin and Pyridium. Since patient had a recent CT abdomen and pelvis done [address] will not be performed at this time and a renal ultrasound will be done to evaluate for stones.Progress time 2: 1610 Progress comments 2: Patient states her pain is returned. She will receive a dose of IV Demerol. Patient's lab work is back and essentially unremarkable. Currently waiting on urine sample and ultrasound testing..Progress time 3: 1755 Progress comments 3: Patient just returned from ultrasound. Patient was able to give a urine sample which the nurse stated was bloody in appearance. The urine sample was sent on to the lab and currently awaiting for urinalysis as well as ultrasound report. Patient states the pain has returned and is requesting more analgesic medication. Patient will be given a second dose of Demerol.Progress time 4: 1845 Progress comments 4: Ultrasound is negative for any hydronephrosis. She has a lot of hematuria now and not her menses. We will give her a dose of ceftriaxone now and she can be discharged on Bactrim for the next 10 to 12 days. She can also have some hydrocodone for pain and follow-up with her doctor and/or urologyDiagnosis: PyelonephritisDiagnosis level 3Disposition time: 1844 Discharge condition: StableDischarge plan: Tylenol Motrin hydrocodone Bactrim DS 1 p.o. 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 [facility] RBC >100 /HPF NONE SEEN ! [facility] The [employer] has definedMicroscopic Hematuria as 3 or more RBC per highpowered field from a single positive urinalysis withmicroscopy. BACTERIA MODERATE /HPF NONE SEEN ! [facility] EPITHELIAL CELLS FEW /HPF NONE SEEN ! [facility] ID Date Data Source [id number] 01/18/2020 06:01:00 PM EST [facility] Name Value Range Interpretation Code Description Data Victoria rce(s) Supporting Document(s) COLOR RED [facility] APPEARANCE CLOUDY CLEAR ! [facility] SPECIFIC GRAVITY 1.020 1.000-1.030 [facility] ital pH 5.0 5.0-8.0 [facility] LEUKOCYTES 2+ NEGATIVE ! [facility] NITRATE POSITIVE NEGATIVE ! [facility] PROTEIN 100 [ 2+] mg/dL NEGATIVE ! [facility] l GLUCOSE NORMAL mg/dL NORMAL [facility] KETONE TRACE mg/dL NEGATIVE ! [facility] UROBILINOGEN NORMAL mg/dL NORMAL [facility] l BILIRUBIN NEGATIVE mg/dL NEGATIVE [facility] HEMOGLOBIN 3+ NEGATIVE ! [facility] ID Date Data Source [id number] 01/18/2020 04:01:00 PM EST [facility] Name Value Range Interpretation Code Description Data Victoria rce(s) Supporting Document(s) SERUM TEST NEGATIVE [facility] spital PREGS METHODOLOGY [facility] ID Date Data Source [id number] 01/18/2020 03:56:00 PM EST [facility] Name Value Range Interpretation Code Description Data Victoria rce(s) Supporting Document(s) WBC 7.2 K/uL 4.8-10.8 [facility] RBC 4.01 M/uL 4.20-5.40 L [facility] HEMOGLOBIN 11.5 gm/dL 12.0-16.0 L [facility] HEMATOCRIT 34.7 % 36.0-48.0 L [facility] MCV 86.3 fL 80.0-100.0 [facility] MCHC 33.2 % 30.0-36.5 [facility] MCH 28.7 pg 27.0-34.0 [facility] RDW 12.4 % 11.0-15.0 [facility] PLATELET 307 K/uL 130-450 [facility] MPV 6.7 fL 6.0-12.0 [facility] NE% 62 % 37-80 [facility] LY% 30 % 10-50 [facility] MO% 6 % 0-12 [facility] Eosinophils [#/volume] in Blood by Automated count 2 % <=8 [facility] BA% 0 % <=3 [facility] NE# 4.5 K/uL 1.8-8.6 [facility] LYMPH# 2.1 K/uL 0.5-5.0 [facility] MONO# 0.5 K/uL 0.0-1.3 [facility] EOS# 0.1 K/uL 0.0-0.9 [facility] BASO# 0.0 K/ul 0.0-0.3 [facility] ID Date Data Source [id number] 01/18/2020 04:08:00 PM [facility] al Name Value Range Interpretation Code Description Data Victoria rce(s) Supporting Document(s) SODIUM 140 mmol/L 136-145 [facility] POTASSIUM 4.0 mmol/L 3.5-5.2 [facility] CHLORIDE 107 mmol/L 100-108 [facility] CO2 24 mmol/L 21-32 [facility] GLUCOSE 84 mg/dL 70-100 [facility] BUN 14 mg/dL 7-21 [facility] CREATININE 0.7 mg/dL 0.6-1.3 [facility] Normal Kidney Function or Mild Disease - GFR >OR= 60Chronic Kidney Disease - GFR 15-59Renal Failure - GFR < 15GFR not calculated on patients under 18 years of age. CALCIUM 8.2 mg/dL 8.5-10.8 L [facility] GFR >60 [facility] T BILI 0.3 mg/dL 0.0-1.2 [facility] T PROTEIN 7.2 gm/dL 6.4-8.2 [facility] ALBUMIN 3.9 gm/dL 3.4-4.8 [facility] ALK PHOS 106 U/L 40-150 [facility] ALT (SGPT) 46 U/L 0-55 [facility] AST (SGOT) 35 U/L 5-37 [facility] ID Date Data Source [id number] 01/18/2020 06:21:03 PM EST [facility] al 01/18/2020 5:43 PMRENAL ULTRASOUNDCLINICA L INFORMATION: -- Left flank painCOMPARISON: None.TECHNIQUE: Sonographic evaluation of the kidneys and bladder was performedusing grayscale ultrasound.FINDINGS:These are normal in size and echo architecture with the right kidney azatrisbl34.4 cm the left kidney also measuring 10.4 cm maximal dimensions. Nohydronephrosis nor nephrolithiasis is seen. The bladder is normal. Bothureteral jets are seen in the bladder and to completely upon voiding.IMPRESSION:No acute nor significant findings are seen.END OF IMPRESSION[facility] then provides those same results to [facility]. Allresults are available to [facility] and [facility] provider portalusers. [facility] DICOM images are available to [facility] provider [facility] users only. [facility] DICOMimages are not available to the [facility] provider portal users. 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 [facility] RBC >100 /HPF NONE SEEN ! [facility] The [employer] has definedMicroscopic Hematuria as 3 or more RBC per highpowered field from a single positive urinalysis withmicroscopy. BACTERIA MODERATE /HPF NONE SEEN ! [facility] EPITHELIAL CELLS MODERATE /HPF NONE SEEN ! [facility] spital ID Date Data Source [id number] 01/16/2020 08:46:00 AM EST [facility] Name Value Range Interpretation Code Description Data Victoria rce(s) Supporting Document(s) COLOR RED [facility] APPEARANCE CLOUDY CLEAR ! [facility] SPECIFIC GRAVITY 1.020 1.000-1.030 [facility] ital pH 5.0 5.0-8.0 [facility] LEUKOCYTES 2+ NEGATIVE ! [facility] NITRATE NEGATIVE NEGATIVE [facility] PROTEIN 100 [ 2+] mg/dL NEGATIVE ! [facility] l GLUCOSE NORMAL mg/dL NORMAL [facility] KETONE TRACE mg/dL NEGATIVE ! [facility] UROBILINOGEN NORMAL mg/dL NORMAL [facility] l BILIRUBIN NEGATIVE mg/dL NEGATIVE [facility] HEMOGLOBIN 3+ NEGATIVE ! [facility] ID Date Data Source [id number] 01/16/2020 08:10:00 AM EST [facility] AMYLASE Name Value Range Interpretation Code Description Data Victoria rce(s) Supporting Document(s) AMYLASE 43 U/L 25-125 [facility] ID Date Data Source [id number] 01/16/2020 08:10:00 AM EST [facility] CMP Name Value Range Interpretation Code Description Data Victoria rce(s) Supporting Document(s) SODIUM 140 mmol/L 136-145 [facility] POTASSIUM 4.3 mmol/L 3.5-5.2 [facility] CHLORIDE 106 mmol/L 100-108 [facility] CO2 24 mmol/L 21-32 [facility] GLUCOSE 91 mg/dL 70-100 [facility] BUN 11 mg/dL 7-21 [facility] CREATININE 0.8 mg/dL 0.6-1.3 [facility] Normal Kidney Function or Mild Disease - GFR >OR= 60Chronic Kidney Disease - GFR 15-59Renal Failure - GFR < 15GFR not calculated on patients under 18 years of age. CALCIUM 8.1 mg/dL 8.5-10.8 L [facility] GFR >60 [facility] T BILI 0.3 mg/dL 0.0-1.2 [facility] T PROTEIN 7.2 gm/dL 6.4-8.2 [facility] ALBUMIN 3.8 gm/dL 3.4-4.8 [facility] ALK PHOS 108 U/L 40-150 [facility] ALT (SGPT) 39 U/L 0-55 [facility] AST (SGOT) 39 U/L 5-37 H [facility] ID Date Data Source [id number] 01/16/2020 08:10:00 AM EST [facility] L[facility] Name Value Range Interpretation Code Description Data Victoria rce(s) Supporting Document(s) LIPASE 24 U/L 8-78 [facility] ID Date Data Source [id number] 01/16/2020 08:08:00 AM EST [facility] Name Value Range Interpretation Code Description Data Victoria rce(s) Supporting Document(s) SERUM TEST NEGATIVE [facility] spital PREGS METHODOLOGY [facility] denise ID Date Data Source [id number] 01/16/2020 08:06:00 AM EST [facility] Name Value Range Interpretation Code Description Data Victoria rce(s) Supporting Document(s) LACTIC ACID 1.1 mmol/L 0.5-2.2 [facility] ID Date Data Source [id number] 01/16/2020 08:06:00 AM EST [facility] Name Value Range Interpretation Code Description Data Victoria rce(s) Supporting Document(s) PTT 26.4 sec 25.6-36.4 [facility] ID Date Data Source [id number] 01/16/2020 08:06:00 AM EST [facility] Name Value Range Interpretation Code Description Data Victoria rce(s) Supporting Document(s) PROTIME 9.8 sec 9.4-12.4 [facility] INR 0.9 [facility] INR INTERPERTATION 2.0 -3.0 THERAPEUTIC MONITORING2.5-3.5 HEART VALVE REPLACEMENT ID Date Data Source [id number] 01/16/2020 07:54:00 AM EST [facility] CBC WITH DIFF Name Value Range Interpretation Code Description Data Victoria rce(s) Supporting Document(s) WBC 6.6 K/uL 4.8-10.8 [facility] RBC 4.13 M/uL 4.20-5.40 L [facility] HEMOGLOBIN 12.2 gm/dL 12.0-16.0 [facility] HEMATOCRIT 35.8 % 36.0-48.0 L [facility] MCV 86.6 fL 80.0-100.0 [facility] MCHC 33.9 % 30.0-36.5 [facility] MCH 29.4 pg 27.0-34.0 [facility] RDW 13.1 % 11.0-15.0 [facility] PLATELET 313 K/uL 130-450 [facility] MPV 6.5 fL 6.0-12.0 [facility] NE% 68 % 37-80 [facility] LY% 25 % 10-50 [facility] MO% 5 % 0-12 [facility] Eosinophils [#/volume] in Blood by Automated count 1 % <=8 [facility] BA% 1 % <=3 [facility] NE# 4.5 K/uL 1.8-8.6 [facility] LYMPH# 1.6 K/uL 0.5-5.0 [facility] MONO# 0.3 K/uL 0.0-1.3 [facility] EOS# 0.1 K/uL 0.0-0.9 [facility] BASO# 0.0 K/ul 0.0-0.3 [facility] ID Date Data Source [id number] 01/16/2020 08:18:12 AM EST [facility] ABD PELVIS W/O103/17/2019 7:57 AMCT ABD OMEN AND PELVIS WITHOUT CONTRASTCLINICAL INFORMATION: NAUSEA WITH VOMITING, UNSPECIFIED,CT ABD PELVIS W/O --NAUSEA WITH VOMITING, UNSPECIFIED left-sided abdominal painCOMPARISON: 02/16/2019PROCEDURE: Contiguous images were obtained through the abdomen and pelviswithout intravenous contrast. Automated exposure control, adjustment of the mAand/or kV according to patient size, and/or iterative reconstruction techniqueswere utilized for radiation dose optimization.FINDINGS: There is image degradation secondary to the patient's large bodyhabitus and motion art ifactChest Base: No pleural nor pericardial effusion is seen.Liver/Biliary Tract: Status post cholecystectomy, hepatic steatosisPancreas: Unremarkable.Spleen: Unremarkable.Adrenals: Unremarkable.Kidneys and Collecting Systems: Unremarkable.Lymph Nodes: Unremarkable.Vessels: Unremarkable for age.GI Tract/Mesentery and Peritoneal Cavity: Status post appendectomy. There iscolonic diverticulosis predominantly of the sigmoid colon. No definite acutediverticulitis is seenUterus/Ovaries: Unremarkable.Bladder: Unremarkable.Soft Tissues/Musculoskeletal: No acute abnormality.IMPRESSION:There is colonic diverticulosis predominantly of the sigmoid colon. No definiteacute diverticulitis is seenEND OF IMPRESSIONM[facility] then provides those same results to [facility]. Allresults are available to [facility] and [facility] provider portalusers. [facility] DICOM images are available to [facility] provider portal users only. [facility] DICOMimages are not available to the [facility] provider portal users. There isno current [facility] cross-[facility] functionality allowing images to be [facility] connectivity.Electronically signed By: Devonte Powers M.D.Read By: DEVONTE CONSTANTINOIDate: 01/16/2020 08:14 Name Value Range Interpretation Code Description Data Victoria rce(s) Supporting Document(s) ID Date Data Source [id number] 01/15/2020 12:48:05 PM EST [facility] INFORMATIONPatient MRN Name Date of Age Gend*PT [id number] Taniya Field 1985 34 years F EDPT Location Admission Date/Time Visit ID Attending [id number] 01/15/20 0817 --- --- EPI ID CSN Admitting Provider [id number] ---Provider in Triage NotesNo notes on fileHistory of Present IllnessChief ComplaintPatient presents with Flank Pain left lower abd/ flank pain x several days Abdominal PainThe patient is a 34yo female with history of HTN, renal calculi, PE on Lovenox,hypercholesterolemia who arrived with complaint of left lower abdominal pain andflank pain x 1 week. Reports that this feels similar in intensity anddistribution to previous episodes of kidney stones she has had in the past.Took Tylenol last night without relief. Denies dysuria, hematuria, urinaryfrequency, vaginal discharge or bleeding. No new sexual partners. No othercomplaints at this time. Denies headache, blurry vision, weakness, dizziness,chest pain, shortness of breath, change in bowel or bladder habits, nausea,vomiting, diarrhea, fever, chills.History provided by: PatientFlank PainPain location: L flank and LLQPain quality: aching and crampingPain radiates to: Does not radiatePain severity: ModerateOnset quality: GradualDuration: 1 weekTiming: ConstantProgression: UnchangedChronicity: NewRelieved by: None triedWorsened by: NothingIneffective treatments: None triedAssociated symptoms: no anorexia, no belching, no chest pain, no chills, noconstipation, no cough, no diarrhea, no dysuria, no fatigue, no fever, noflatus, no hematemesis, no hematochezia, no hematuria, no melena, no nausea, noshortness of breath, no sore throat, no vaginal bleeding, no vaginal dischargeand no vomitingAbdominal PainAssociated symptoms: no anorexia, no belching, no chest pain, no chills, noconstipation, no cough, no diarrhea, no dysuria, no fatigue, no fever, noflatus, no hematemesis, no hematochezia, no hematuria, no melena, no nausea, noshortness of breath, no sore throat, no vaginal bleeding, no vaginal dischargeand no vomitingHistoryPast Medical History:Diagnosis Date Asthma Hypercholesterolemia Hypertension Kidney calculi Kidney stone Nephrolithiasis Pulmonary embolismPast Surgical History:Procedure Laterality Date APPENDECTOMY CHOLECYSTECTOMY URETERAL STENT PLACEMENTFamily HistoryProblem Relation Age of Onset Nephrolithiasis Mother Hypertension Mother Asthma Mother Heart attack Father Other Unknown Father Cerebrovascular accidentSocial HistoryTobacco Us e Smoking status: Never Smoker Smokeless tobacco: Never UsedSubstance Use Topics Alcohol use: No Drug use: NoROSReview of SystemsConstitutional: Negative for activity mireles e, chills, fatigue and fever.HENT: Negative for congestion and sore throat.Respiratory: Negative for cough and shortness of breath.Cardiovascular: Negative for chest pain.Gastrointestinal: Positive for abdominal pain. Negative for anorexia,constipation, diarrhea, flatus, hematemesis, hematochezia, melena, nausea andvomiting.Genitourinary: Positive for flank pain. Negative for dysuria, frequency,hematuria, vaginal bleeding and vaginal discharge.Musculoskeletal: Negative for joint swelling and neck stiffness.Skin: Negative for color change.Neurological: Negative for weakness, numbness and headaches.Psyc hiatric/Behavioral: The patient is not nervous/anxious.All other systems reviewed and are negative.Physical ExamBP 131/84 (BP Location: Left upper arm, Patient Position: Sitting) | Pulse 99| Temp 98.4 F (Oral) | Resp 18 | Ht 61" | Wt (!) 113.9 kg | LMP 01/01/2020(Exact Date) | SpO2 98% | No | BMI 47.43 kg/m Physical ExamConstitutional: She is oriented to person, place, and time. Vital signs arenormal. She appears well-developed and well-nourished. No distress.HENT:Head: Normocephalic.Eyes: Conjunctivae and lids are normal.Neck: Normal range of motion.Cardiovascular: Normal rate, regular rhythm, normal heart sounds and normalpulses. Exam reveals no gallop and no friction rub.No murmur heard.Pulmonary/Chest: Effort normal and breath sounds normal. No stridor. Nore spiratory distress. She has no wheezes. She has no rales. She exhibits notenderness.Abdominal: Soft. Normal appearance and bowel sounds are normal. She exhibits nodistension and no mass. There is no tenderness. There is no rebound and noguarding. No hernia.Mild L CVA tenderness, no R CVA tenderness.Neurological: She is alert and oriented to person, place, and time.Skin: Skin is warm and dry. Capillary refill takes less than 2 seconds.Psychiatric: She has a normal mood and affect. Her behavior is normal. Judgmentand thought content normal.Nursing note and vitals reviewed.ED CourseED Course as of Jan 14un Jan [id number] Patient eloped from the ED prior to completion of her work up. [MM]ED Course User Index[MM] SARAH OrozcoroceduresMDMNumber of Diagnoses or Management OptionsFlank pain:Diagnosis management comments: 34yo female with abdominal pain/flank pain.Urine dip positive for trace blood on microscopic. CBC, CMP, Lipase withoutsignificant abnormalities. US Renal sonogram was completed but the patienteloped from the ED prior to receiving results of the sonogram and furthermanagement. This is considered an AMA discharge as work up was not complete.Amount and/or Complexity of Data ReviewedClinical lab tests: reviewed and ordered (CBC, CMP, Lipase, UA, Upreg, PT, PTT)Tests in the radiology section of CPT : reviewed and ordered (Renal sonogram)Risk of Complications, Morbidity, and/or MortalityPresenting problems: lowDiagnostic procedures: lowManagement options: lowPatient ProgressPatient progress: stableThis was electronically signed by JOE Orozco, 01/15/20 8:36 AM.JOE Orozco01/15/20 1033I was on the premise and available for consultation as my midlevel evaluated andtreated the above described pt. I have reviewed the chart and documentation,care appears appropriate per documentation.Awa Magana, DO01/15/20 1248 Name Value Range Interpretation Code Description Data Victoria rce(s) Supporting Document(s) ID Date Data Source [id number] 01/15/2020 10:40:39 AM EST [address] [id number] Name: TANIYA FIELDDOB: 1985Sex: FOrdering Provider: АНДРЕЙ Funez Prov: АНДРЕЙ MENDEZRefraad Provider: Procedure Performed: US RENAL KIDNEY BILATERALExam Date: 01/15/2020 10:07MRN: [id number] Number: [id number] Class: EmergencyAccount #: [id number] for Exam: L flank painTechnique: Real time sonographic images were obtained.Comparison: NoneFindings: Right kidney 9.3 left kidney 10.7 cm in length. Normal cortical thickness and echotexture. No hydronephrosis. No focal lesions. Urinary bladder void of urine on patient voided prior study.IMPRESSION: Kidneys within normal limits.Report electronically signed by: CAMACHO RAO On 01/15/2020 10:40 AMWorkstation ID: [id number] Name Value Range Interpretation Code Description Data Victoria rce(s) Supporting Document(s) ID Date Data Source [id number] 01/15/2020 09:45:30 AM EST [facility] Name Value Range Interpretation Code Description Data Victoria rce(s) Supporting Document(s) POC URINE HCG (NEG) [facility] PERFORMED BY [facility] ID Date Data Source [id number] 01/15/2020 10:20:03 AM EST [facility] Name Value Range Interpretation Code Description Data Victoria rce(s) Supporting Document(s) COLOR [facility] APPEARANCE [facility] SPEC GRAV URINE 1.019 (1.003-1.030) [facility] PH URINE 5.5 (5.0-7.5) [facility] LEUK ESTERASE 1+ (NEG) A [facility] NITRITE URINE (NEG) [facility] PROTEIN URINE (NEG) [facility] GLUCOSE URINE (NEG) [facility] KETONE URINE (NEG) [facility] UROBILINOGEN 0.2 mg/dL (0-1.0) [facility] BILIRUBIN URINE (NEG) [facility] BLOOD/HGB URINE (NEG) [facility] EPITHELIAL CELLS 3+ [HPF] (NEG) A [facility] HYALINE CASTS 1.2 [LPF] (0-5) [facility] BACTERIA 3+ [HPF] (NEG) A [facility] URINE WBC 6.0 [HPF] (0-8) [facility] URINE RBC 3.2 [HPF] (0-3) H [facility] ID Date Data Source [id number] 01/15/2020 10:09:22 AM EST [facility] Name Value Range Interpretation Code Description Data Victoria rce(s) Supporting Document(s) URN CULTURE HOLD [facility] FOR ADD ON CULTURE ID Date Data Source [id number] 01/15/2020 11:35:45 AM EST [facility] Name Value Range Interpretation Code Description Data Victoria rce(s) Supporting Document(s) PT 9.8 s (9.2-11.9) [facility] INR 0.93 [facility] SUGGESTED THERAPEUTIC RANGES USING INR F ORSTABILIZED ANTICOAGULATED PATIENTS:STANDARD DOSE THERAPY INR 2.0-3.0 DVT, PE, PREVENT DVT OR EMBOLISMHIGH DOSE THERAPY INR 2.5-3.5 PREVENT EMBOLISM FROM MECHANICAL HEART VALVE ID Date Data Source [id number] 01/15/2020 11:35:45 AM EST [facility] Name Value Range Interpretation Code Description Data Victoria rce(s) Supporting Document(s) APTT 23.6 s (22.0-34.3) [facility] ID Date Data Source [id number] 01/15/2020 10:33:20 AM EST [facility] Name Value Range Interpretation Code Description Data Victoria rce(s) Supporting Document(s) SODIUM 140 mmol/L (136-145) [facility] POTASSIUM 3.7 mmol/L (3.6-5.2) [facility] CHLORIDE 109 mmol/L (100-108) H [facility] CO2 27 mmol/L (22-31) [facility] ANION GAP 4 mmol/L (7-16) L [facility] UREA NITROGEN 11 mg/dL (7-24) [facility] CREATININE 0.77 mg/dL (0.60-1.00) [facility] BUN/CREAT RATIO 14.3 RATIO (10.0-20.0) [facility] GLUCOSE 97 mg/dL (70-99) [facility] CALCIUM 8.5 mg/dL (8.4-10.2) [facility] TOTAL PROTEIN 7.2 g/dL (6.4-8.2) [facility] ALBUMIN 3.2 g/dL (3.5-4.6) L [facility] GLOBULIN 4.0 g/dL (2.7-4.3) [facility] ALB/GLOB RATIO 0.8 RATIO [facility] ALKALINE PHOSPHATASE 111 U/L (45-117) [facility] BILIRUBIN,TOTAL 0.3 mg/dL (0.0-1.0) [facility] PLEASE NOTE:Total bilirubin results may be falselyelevated in patients taking Eltrombopag. AST (SGOT) 39 U/L (11-39) [facility] ALT (SGPT) 49 U/L (12-78) [facility] GFR >60 ml/min/1.73m2 (>59) [facility] GFR ( AMER) >60 ml/min/1.73m2 (>59) [facility] GFR INTERPRETATION [facility] --NORMAL KIDNEY FUNCTION OR MILD DISEASE - GFR >OR= 60CHRONIC KIDNEY DISEASE - GFR 15 - 59RENAL FAILURE - GFR <15 Est. GFR calculation based on the MDRDstudy equation, which assumes a steadystate for creatinine. Est. GFR should notbe used for medication dosing. ID Date Data Source [id number] 01/15/2020 10:30:34 AM EST [facility] Name Value Range Interpretation Code Description Data Victoria rce(s) Supporting Document(s) LIPASE 83 U/L (65-230) [facility] ID Date Data Source [id number] 01/15/2020 10:14:33 AM EST [facility] Name Value Range Interpretation Code Description Data Victoria rce(s) Supporting Document(s) WBC 6.5 10*3/uL (4.1-11.0) [facility] RBC 4.24 10*6/uL (4.00-5.40) [facility] HGB 12.0 g/dL (12.0-16.0) [facility] HCT 36.3 % (36.0-47.0) [facility] MCV 85.5 fL (80.0-95.0) [facility] MCH 28.2 pg (27.0-32.0) [facility] MCHC 33.0 g/dL (32.0-36.0) [facility] RDW 13.9 % (10.5-14.5) [facility] PLT 342 10*3/uL (150-450) [facility] MPV 7.6 fL (7.1-10.7) [facility] NEUT % 70.1 % (35.0-75.0) [facility] LYMPH % 22.0 % (16.0-52.0) [facility] MONO % 5.9 % (0.0-8.0) [facility] EOS % 1.7 % (0.0-5.0) [facility] BASO % 0.3 % (0.0-4.0) [facility] NEUT # 4.5 10*3/uL (1.8-7.7) [facility] LYMPH # 1.4 10*3/uL (1.2-4.8) [facility] MONO # 0.4 10*3/uL (0.0-0.8) [facility] Eosinophils [#/volume] in Blood by Automated count 0.1 10*3/uL (0.0-0 .5) [facility] BASO # 0.0 10*3/uL (0.0-0.2) [facility] ID Date Data Source [id number] 01/05/2020 08:37:48 AM EDT [facility] Name Value Range Interpretation Code Description Data Victoria rce(s) Supporting Document(s) COLOR [facility] APPEARANCE [facility] SPEC GRAV URINE 1.013 (1.003-1.030) [facility] PH URINE 5.5 (5.0-7.5) [facility] LEUK ESTERASE (NEG) [facility] CRITERIA FOR CULTURE NOT MET.CULTURE CAN BE ADDED WITHIN 36 HOURS OFCOLLECTION. NITRITE URINE (NEG) [facility] PROTEIN URINE (NEG) [facility] GLUCOSE URINE (NEG) [facility] KETONE URINE (NEG) [facility] UROBILINOGEN 0.2 mg/dL (0-1.0) [facility] BILIRUBIN URINE (NEG) [facility] BLOOD/HGB URINE (NEG) [facility] ID Date Data Source [id number] 01/05/2020 08:44:25 AM EDT [facility] Name Value Range Interpretation Code Description Data Victoria rce(s) Supporting Document(s) SODIUM 139 mmol/L (136-145) [facility] POTASSIUM 4.4 mmol/L (3.6-5.2) [facility] CHLORIDE 108 mmol/L (100-108) [facility] CO2 25 mmol/L (22-31) [facility] ANION GAP 6 mmol/L (7-16) L [facility] UREA NITROGEN 18 mg/dL (7-24) [facility] CREATININE 0.88 mg/dL (0.60-1.00) [facility] BUN/CREAT RATIO 20.5 RATIO (10.0-20.0) H [facility] GLUCOSE 95 mg/dL (70-99) [facility] CALCIUM 8.4 mg/dL (8.4-10.2) [facility] GFR >60 ml/min/1.73m2 (>59) [facility] GFR ( AMER) >60 ml/min/1.73m2 (>59) [facility] GFR INTERPRETATION [facility] --NORMAL KIDNEY FUNCTION OR MILD DISEASE - GFR >OR= 60CHRONIC KIDNEY DISEASE - GFR 15 - 59RENAL FAILURE - GFR <15 Est. GFR calculation based on the MDRDstudy equation, which assumes a steadystate for creatinine. Est. GFR should notbe used for medication dosing. ID Date Data Source [id number] 01/05/2020 08:41:44 AM EDT [facility] Name Value Range Interpretation Code Description Data Victoria rce(s) Supporting Document(s) HCG, QUAL. SERUM (NEG) [facility] ID Date Data Source [id number] 01/05/2020 08:17:05 AM EDT [facility] Name Value Range Interpretation Code Description Data Victoria rce(s) Supporting Document(s) WBC 6.8 10*3/uL (4.1-11.0) [facility] RBC 4.28 10*6/uL (4.00-5.40) [facility] HGB 12.1 g/dL (12.0-16.0) [facility] HCT 36.5 % (36.0-47.0) [facility] MCV 85.2 fL (80.0-95.0) [facility] MCH 28.2 pg (27.0-32.0) [facility] MCHC 33.1 g/dL (32.0-36.0) [facility] RDW 13.7 % (10.5-14.5) [facility] PLT 339 10*3/uL (150-450) [facility] MPV 6.7 fL (7.1-10.7) L [facility] NEUT % 64.5 % (35.0-75.0) [facility] LYMPH % 25.6 % (16.0-52.0) [facility] MONO % 7.8 % (0.0-8.0) [facility] EOS % 1.8 % (0.0-5.0) [facility] BASO % 0.3 % (0.0-4.0) [facility] NEUT # 4.4 10*3/uL (1.8-7.7) [facility] LYMPH # 1.7 10*3/uL (1.2-4.8) [facility] MONO # 0.5 10*3/uL (0.0-0.8) [facility] Eosinophils [#/volume] in Blood by Automated count 0.1 10*3/uL (0.0-0 .5) [facility] BASO # 0.0 10*3/uL (0.0-0.2) [facility] ID Date Data Source [id number] 12/26/2019 02:25:31 PM EDT [facility] NT INFORMATIONPatient MRN Name Date of Age Gend*PT [id number] Tnaiya Field 1985 34 years F EDPT Location Admission Date/Time Visit ID Attending [id number] 12/26/19 0845 --- --- EPI ID CSN Admitting Provider [id number] ---Attestation signed by Kathy Cox MD at 12/26/2019 2:25 PMEIsaac ONEILL Attestations:Attestation Type: Mid-Level: SUPERVISED APC: Based on the medical record thecare appears appropriate Provider in Triage NotesNo notes on fileHistory of Present IllnessChief ComplaintPatient presents with Abdominal Pain 3 days nausea some vomiting - more on the left side wraps around the the backPatient is a 34-year-old female with history of asthma, HLD, HTN,nephrolithiasis and PE on Lovenox who presents to the ED for evaluation ofleft-sided flank pain x 3 days. Patient states the pain travels from her leftflank into the left lower abdomen. She states the pain is sharp and stabbing innature. Patient reports associated nausea and vomiting. She denies diarrhea,constipation and changes in bowel habits. No dysuria, urinary frequency orurgency. Patient states she has noticed some blood in her urine. LMP was twoweeks ago. 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 She had a normalrenal sonogram and urine with evidence of UTI at that time. Patient deniesfevers, chills, dizziness, weakness, chest pain, shortness of breath and allother complaints today.HistoryPast Medical History:Diagnosis Date Asthma Hypercholesterolemia Hypertension Kidney calculi Kidney stone Nephrolithiasis Pulmonary embolismPast Surgical History:Procedure Laterality Date APPENDECTOMY CHOLECYSTECTOMY URETERAL STENT PLACEMENTFamily HistoryProblem Relation Age of Onset Nephrolithiasis Mother Hypertension Mother Asthma Mother Heart attack Father Other Unknown Father Cerebrovascular accidentSocial HistoryTobacco Use Smoking status: Never Smoker Smokeless tobacco: Never UsedSubstance Use Topics Alcohol use: No Drug use: NoROSReview of SystemsConstitutional: Negative for activity change, appetite change, chills and fever.HENT: Negative for dental problem, sore throat and trouble swallowing.Eyes: Negative for pain and visual disturbance.Respiratory: Negative for apnea, cough, chest tightness, shortness of breath andwheezing.Cardiovascular: Negative for chest pain and palpitations.Gastrointestinal: Positive for abdominal pain, nausea and vomiting. Negative fordiarrhea.Genitourinary: Positive for flank pain. Negative for dysuria.Musculoskeletal: Negative for arthralgias, back pain, myalgias and neckstiffness.Skin: Negative for rash and wound.Neurological: Negative for dizziness, speech difficulty, weakness,light-headedness, numbness and headaches.Psychiatric/Behavioral: Negative for suicidal ideas.All other systems reviewed and are negative.Physical ExamBP 148/80 | Pulse 84 | Temp 98.4 F (Oral) | Resp 18 | Ht 61" | Wt (!)118.4 kg | LMP 12/12/2019 | SpO2 99% | No | BMI 49.32 kg/m Physical ExamConstitutional: She is oriented to person, place, and time. She appearswell-developed and well-nourished. No distress.HENT:Head: Normocephalic and atraumatic.Right Ear: External ear normal.Left Ear: External ear normal.Nose: Nose normal.Mouth/Throat: Oropharynx is clear and moist. No oropharyngeal exudate.Eyes: Conjunctivae and EOM are normal.Neck: Normal range of motion.Cardiovascular: Normal rate, regular rhythm, normal heart sounds and intactdistal pulses.Pulmonary/Chest: Effort normal and breath sounds normal. No stridor. Norespiratory distress. She has no wheezes. She has no rales.Abd ominal:Abdomen is soft and non-distended. Mild tenderness in the LLQ. Positive CVAtenderness on L side. No rebound or guardingMusculoskeletal: Normal range of motion.Neurological: She is alert and oriented to person, place, and time.Skin: Skin is warm and dry. Capillary refill takes less than 2 seconds.Psychiatric: She has a normal mood and affect.Nursing note and vitals reviewed.ED CourseResults for orders placed or performed during the hospital encounter of 12/26/19Comprehensive metabolic panelResult Value Ref Range Sodium 139 136 - 145 mmol/L Potassium 4.2 3.6 - 5.2 mmol/L Chloride 104 100 - 108 mmol/L CO2 25 22 - 31 mmol/L Anion Gap 10 7 - 16 mmol/L Urea nitrogen 20 7 - 24 mg/dL Creatinine 0.86 0.60 - 1.00 mg/dL BUN/Creatinine Ratio 23.3 (H) 10.0 - 20.0 RATIO GLUCOSE 89 70 - 99 mg/dL Calcium 9.0 8.4 - 10.2 mg/dL Protein, Total 8.1 6.4 - 8.2 g/dL Albumin 3.6 3.5 - 4.6 g/dL Globulin 4.5 (H) 2.7 - 4.3 g/dL Alb/Glob ratio 0.8 RATIO Alkaline Phosphatase 122 (H) 45 - 117 U/L Bilirubin, Total 0.4 0.0 - 1.0 mg/dL AST 32 11 - 39 U/L ALT 48 12 - 78 U/L GFR MDRD Non Af Amer >60 >59 ml/min/1.73m2 GFR MDRD Af Amer >60 >59 ml/min/1.73m2 Glom Filt Rate, Est SEE NOTESCBC w/ diffResult Value Ref Range WBC 6.5 4.1 - 11.0 10*3/uL RBC 4.59 4.00 - 5.40 10*6/uL Hemoglobin 12.7 12.0 - 16.0 g/dL Hematocrit 38.7 36.0 - 47.0 % MCV 84.3 80.0 - 95.0 fL MCH 27.7 27.0 - 32.0 pg MCHC 32.8 32.0 - 36.0 g/dL RDW 13.0 10.5 - 14.5 % Platelets 342 150 - 450 10*3/uL MPV 7.3 7.1 - 10.7 fL Neutrophils % 69.9 35.0 - 75.0 % Lymphocytes Relative 22.4 16.0 - 52.0 % Monocytes Relative 5.7 0.0 - 8.0 % Eosinophils Relative 1.3 0.0 - 5.0 % Basophi ls Relative 0.7 0.0 - 4.0 % Neutrophils Absolute 4.5 1.8 - 7.7 10*3/uL Lymphocytes Absolute 1.4 1.2 - 4.8 10*3/uL Monocytes Absolute 0.4 0.0 - 0.8 10*3/uL Eosinophils Man 0.1 0.0 - 0.5 10*3/uL Basophils Absolute 0.0 0.0 - 0.2 10*3/uLLipaseResult Value Ref Range Lipase 99 65 - 230 U/LMagnesiumResult Value Ref Range Magnesium 2.3 1.7 - 2.4 mg/dLUrinalysisResult Value Ref Range Color, UA YELLOW Appearance CLOUDY Specific [place], UA 1.013 1.003 - 1.030 pH, Urine 5.5 5.0 - 7.5 Leukocyte Esterase 2+ (A) NEGATIVE Nitrite, UA NEGATIVE NEGATIVE Protein, UA 1+ (A) NEGATIVE Glucose, UA NEGATIVE NEGATIVE Ketones, UA NEGATIVE NEGATIVE Urobilinogen, UA 0.2 0 - 1.0 mg/dL Bilirubin, UA NEGATIVE NEGATIVE Blood, UA 3+ (A) NEGATIVE Epithelial Cells, UA 2+ (A) NEGATIVE [HPF] Hyaline Casts, UA 1.8 0 - 5 [LPF] Bacteria, UA 2+ (A) NEGATIVE [HPF] WBC, UA 34.5 (H) 0 - 8 [HPF] RBC, UA 894.7 (H) 0 - 3 [HPF]Urine specimen held in lab for cultureResult Value Ref Range Urine specimen held in lab for culture URINE SPECIMEN AVAILABLE IN LAB FOR 24HOURSPOCT CLINITEK URINE HCGResult Value Ref Range POC Urine Hcg NEGATIVE NEGATIVECt Abdomen Pelvis Without Iv ContrastResult Date: 12/26/2019. [place] [address] Patient Name: JHONY FIELD : 1985 Sex: F Ordering Provider: RIGO MCNAIR AuthorizingProv: RIGO MCNAIR Referring Provider: Procedure Performed: CT ABDOMENPELVIS WO CONTRAST Exam Date: 12/26/2019 09:48 Patient Class: Emergency Reason for Exam: Lflank and LLQ abdominal pain, h/o renal stone, no h/o div erticulosis Technique:Helical axial images were obtained without IV contrast. One or more of thefollowing dose reduction techniques were utilized; automated exposure control,dose modulation, technique adjustment based on patient size and iterativereconstruction algorithms. Multiplanar reconstructions were created andreviewed. Comparison: September 13, 2019 Findings: Liver is decreased in attenuationconsistent with steatosis. The liver is slightly enlarged. Status postcholecystectomy. Pancreas and spleen appear unremarkable. Kidneys are normal.There is no evidence of nephrolithiasis or hydronephrosis. The ureters arenormal in course and caliber to the level of bladder. Uterus and adnexal regionsare unremarkable. A few sigmoid diverticuli are present. There is no evidence ofdiverticulitis.IMPRESSION: No evidence of hydronephrosis or nephroureterolithiasis. Mildsigmoid diverticulosis. No evidence of diverticulitis. Mild hepatomegaly andsteatosis. Report electronically signed by: DAMON THAKKAR On 12/26/201910:11 AM Workstation ID: [id number] Diagnoses or Management OptionsDiagnosis management comments: Patient is a 34-year-old female who [facility] for evaluation of left flank and lower abdominal pain x 3 days. She iswell-appearing and afebrile with VSS. Labs, urine and CT abdomen/pelvis orderedto further evaluate. Pain management, antiemetics and IV fluids administered.10:34 AM Labs are unremarkable. CT without evidence of renal stone ordiverticulitis. Urine is positive for significant WBC, leukocyte esterase andbacteria. In the setting of flank pain and vomiting this is consistent withacute pyelonephritis. Initial IV dose of Rocephin administered today in the EDand will discharge patient home on Bactrim DS BID x 14 days. PCP follow-upencouraged for reevaluation in 2-3 days. Return precautions discussed shouldpatient develop new or worsening symptoms. Patient voices agreement andunderstanding of the plan of care.This was electronically signed by JOE Louise, 12/26/19 8:55 AM.JOE Louise12/26/19 1037Kathy Cox MD12/26/19 1425 Name Value Range Interpretation Code Description Data Victoria rce(s) Supporting Document(s) ID Date Data Source [id number] 12/26/2019 10:11:00 AM EDT [address] [address] Name: TANIYA MARTINEZPENELOPEB: 1985Sex: FOrdering Provider: RIGO Johnson Prov: RIGO Jarviserrlili Provider: Procedure Performed: CT ABDOMEN PELVIS WO CONTRASTExam Date: 12/26/2019 09:48MRN: [id number] Number: [id number] Class: EmergencyAccount #: [id number] for Exam: L flank and LLQ abdominal pain, h/o renal stone, no h/o diverticulosisTechnique: Helical axial images were obtained without IV contrast.One or more of the following dose reduction techniqueswere utilized; automated exposure control, dose modulation, technique adjustment based on patient size and iterativereconstruction algorithms. Multiplanar reconstructions were created and reviewed.Comparison: September 13, 2019Findings: Liver is decreased in attenuation consistent with steatosis.The liver is slightly enlarged. Status post cholecystectomy.Pancreas and spleen appear unremarkable.Kidneys are normal. There is no evidence of nephrolithiasis or hydronephrosis. The ureters are normal in course and caliber to the level of bladder.Uterus and adnexal regions are unremarkable. A few sigmoid diverticuli are present. There is no evidence of diverticulitis.IMPRESSION: No evidence of hydronephrosis or nephroureterolithiasis.Mild sigmoid diverticulosis. No evidence of diverticulitis.Mild hepatomegaly and steatosis.Report electronically signed by: DAMON THAKKAR On 12/26/2019 10:11 AMWorkstation ID: [id number] Name Value Range Interpretation Code Description Data Victoria rce(s) Supporting Document(s) ID Date Data Source [id number] 12/26/2019 09:32:21 AM EDT [facility] Name Value Range Interpretation Code Description Data Victoria rce(s) Supporting Document(s) POC URINE HCG (NEG) [facility] PERFORMED BY [facility] ID Date Data Source [id number] 12/27/2019 07:34:34 AM EDT [facility] SPECIMEN DESCRIPTION MIDSTREAM UR INE,CLEAN CATCHCULTURE RESULTS MIXED UROGENITAL RADHA; PLEASE SUBMIT A NEW SPEC IMEN IF CLINICALLY INDICATED.REPORT STATUS FINAL 12/27/2019 Name Value Range Interpretation Code Description Data [facility] rce(s) Supporting Document(s) ID Date Data Source [id number] 12/26/2019 10:23:34 AM EDT [facility] Name Value Range Interpretation Code Description Data Victoria rce(s) Supporting Document(s) SODIUM 139 mmol/L (136-145) [facility] POTASSIUM 4.2 mmol/L (3.6-5.2) [facility] CHLORIDE 104 mmol/L (100-108) [facility] CO2 25 mmol/L (22-31) [facility] ANION GAP 10 mmol/L (7-16) [facility] UREA NITROGEN 20 mg/dL (7-24) [facility] CREATININE 0.86 mg/dL (0.60-1.00) [facility] BUN/CREAT RATIO 23.3 RATIO (10.0-20.0) H [facility] GLUCOSE 89 mg/dL (70-99) [facility] CALCIUM 9.0 mg/dL (8.4-10.2) [facility] TOTAL PROTEIN 8.1 g/dL (6.4-8.2) [facility] ALBUMIN 3.6 g/dL (3.5-4.6) [facility] GLOBULIN 4.5 g/dL (2.7-4.3) H [facility] ALB/GLOB RATIO 0.8 RATIO [facility] ALKALINE PHOSPHATASE 122 U/L (45-117) H [facility] BILIRUBIN,TOTAL 0.4 mg/dL (0.0-1.0) [facility] PLEASE NOTE:Total bilirubin results may be falselyelevated in patients taking Eltrombopag. AST (SGOT) 32 U/L (11-39) [facility] ALT (SGPT) 48 U/L (12-78) [facility] GFR >60 ml/min/1.73m2 (>59) [facility] GFR ( AMER) >60 ml/min/1.73m2 (>59) [facility] GFR INTERPRETATION [facility] --NORMAL KIDNEY FUNCTION OR MILD DISEASE - GFR >OR= 60CHRONIC KIDNEY DISEASE - GFR 15 - 59RENAL FAILURE - GFR <15 Est. GFR calculation based on the MDRDstudy equation, which assumes a steadystate for creatinine. Est. GFR should notbe used for medication dosing. ID Date Data Source [id number] 12/26/2019 10:20:33 AM EDT [facility] Name Value Range Interpretation Code Description Data Victoria rce(s) Supporting Document(s) MAGNESIUM 2.3 mg/dL (1.7-2.4) [facility] ID Date Data Source [id number] 12/26/2019 10:20:33 AM EDT [facility] Name Value Range Interpretation Code Description Data Victoria rce(s) Supporting Document(s) LIPASE 99 U/L (65-230) [facility] ID Date Data Source [id number] 12/26/2019 10:17:27 AM EDT [facility] Name Value Range Interpretation Code Description Data Victoria rce(s) Supporting Document(s) COLOR [facility] APPEARANCE [facility] SPEC GRAV URINE 1.013 (1.003-1.030) [facility] PH URINE 5.5 (5.0-7.5) [facility] LEUK ESTERASE 2+ (NEG) A [facility] NITRITE URINE (NEG) [facility] PROTEIN URINE 1+ (NEG) A [facility] GLUCOSE URINE (NEG) [facility] KETONE URINE (NEG) [facility] UROBILINOGEN 0.2 mg/dL (0-1.0) [facility] BILIRUBIN URINE (NEG) [facility] BLOOD/HGB URINE 3+ (NEG) A [facility] EPITHELIAL CELLS 2+ [HPF] (NEG) A [facility] HYALINE CASTS 1.8 [LPF] (0-5) [facility] BACTERIA 2+ [HPF] (NEG) A [facility] URINE WBC 34.5 [HPF] (0-8) H [facility] URINE RBC 894.7 [HPF] (0-3) H [facility] ID Date Data Source [id number] 12/26/2019 10:06:37 AM EDT [facility] Name Value Range Interpretation Code Description Data Victoria rce(s) Supporting Document(s) WBC 6.5 10*3/uL (4.1-11.0) [facility] RBC 4.59 10*6/uL (4.00-5.40) [facility] HGB 12.7 g/dL (12.0-16.0) [facility] HCT 38.7 % (36.0-47.0) [facility] MCV 84.3 fL (80.0-95.0) [facility] MCH 27.7 pg (27.0-32.0) [facility] MCHC 32.8 g/dL (32.0-36.0) [facility] RDW 13.0 % (10.5-14.5) [facility] PLT 342 10*3/uL (150-450) [facility] MPV 7.3 fL (7.1-10.7) [facility] NEUT % 69.9 % (35.0-75.0) [facility] LYMPH % 22.4 % (16.0-52.0) [facility] MONO % 5.7 % (0.0-8.0) [facility] EOS % 1.3 % (0.0-5.0) [facility] BASO % 0.7 % (0.0-4.0) [facility] NEUT # 4.5 10*3/uL (1.8-7.7) [facility] LYMPH # 1.4 10*3/uL (1.2-4.8) [facility] MONO # 0.4 10*3/uL (0.0-0.8) [facility] Eosinophils [#/volume] in Blood by Automated count 0.1 10*3/uL (0.0-0 .5) [facility] BASO # 0.0 10*3/uL (0.0-0.2) [facility] ID Date Data Source [id number] 12/26/2019 10:02:55 AM EDT [facility] Name Value Range Interpretation Code Description Data Victoria rce(s) Supporting Document(s) URN CULTURE HOLD [facility] FOR ADD ON CULTURE ID Date Data Source [id number] 12/25/2019 09:40:33 AM [facility]T [facility] INFORMATIONPatient MRN Name Date of Age Gend*PT [id number] Taniya Field 1985 34 years F EDPT Location Admission Date/Time Visit ID Attending [id number] 12/24/19 1223 --- --- EPI ID CSN Admitting Provider [id number] ---Attestation signed by Kathy Cox MD at 12/25/2019 9:40 MALIK Attestations:Attestation Type: Mid-Level: SUPERVISED APC: Based on the medical record thecare appears appropriate Provider in Triage NotesNo notes on fileHistory of Present IllnessChief ComplaintPatient presents with Flank Pain patient states started yesterday with L flank pain that radiates to L groinregion. + blood in urine. Hx of stones and states feels the sameThe patient is a 34-year-old female with history of kidney stones, pulmonaryembolism, hypertension who arrives with complaint of left flank pain x1 day.States that the pain is sharp and stabbing in nature localized to the left flankand occasionally radiates to the abdomen. States that this feels similar inintensity and distribution to previous kidney stone she has had in the past.Denies any associated nausea, vomiting. Has not taken any pain medications formanagement [id number]. Denies any vaginal discharge, vaginal bleeding,new sexual partners, risk of . No other complaints at this time.Denies headache, blurry vision, weakness, dizziness, chest pain, shortness ofbreath, change in bowel or bladder habits, nausea, vomiting, diarrhea, fever,chills.History provided by: PatientFlgilbert PainPain location: L flankPain quality: sharp and stabbingPain severity: ModerateOnset quality: SuddenDuration: 1 dayTiming: ConstantProgression: UnchangedChronicity: NewRelieved by: None triedWorsened by: NothingIneffective treatments: None triedAssociated symptoms: no anorexia, no belching, no chest pain, no chills, noconstipation, no cough, no diarrhea, no dysuria, no fatigue, no fever, noflatus, no hematemesis, no hematochezia, no hematuria, no melena, no nausea, noshortness of breath, no sore throat, no vaginal bleeding, no vaginal dischargeand no vomitingHistoryPast Medical History:Diagnosis Date Asthma Hypercholesterolemia Hypertension Kidney calculi Kidney stone Nephrolithiasis Pulmonary embolismPast Surgical History:Procedure Laterality Date APPENDECTOMY CHOLECYSTECTOMY URETERAL STENT PLACEMENTFamily HistoryProblem Relation Age of Onset Nephrolithiasis Mother Hypertension Mother Asthma Mother Heart attack Father Other Unknown Father Cerebrovascular accidentSocial HistoryTobacco Use Smoking status: Never Smoker Smokeless tobacco: Never UsedSubstance Use Topics Alcohol use: No Drug use: NoROSReview of SystemsConstitutional: Negative for activity change, chills, fatigue and fever.HENT: Negative for congestion and sore throat.Respiratory: Negative for cough and shortness of breath.Cardiovascular: Negative for chest pain.Gastrointestinal: Positive for abdominal pain. Negative for anorexia,constipation, diarrhea, flatus, hematemesis, hematochezia, melena, nausea andvomiting.Genitourinary: Positive for flank pain. Negative for dysuria, frequency,hematuria, vaginal bleeding and vaginal discharge.Musculoskeletal: Negative for joint swelling and neck stiffness.Skin: Negative for color change.Neurological: Negative for weakness, numbness and headaches.Psychiatric/Behavioral: The patient is not nervous/anxious.All other systems reviewed and are negative.Physical ExamBP (!) 147/104 | Pulse 98 | Temp 98 F | Resp 18 | Wt (!) 118.4 kg | CxM584% | BMI 49.32 kg/m Physical ExamConstitutional: She is oriented to person, place, and time. Vital signs arenormal. She appears well-developed and well-nourished. No distress.HENT:Head: Normocephalic.Eyes: Conjunctivae and lids are n ormal.Cardiovascular: Normal rate, regular rhythm, normal heart sounds and normalpulses. Exam reveals no gallop and no friction rub.No murmur heard.Pulmonary/Chest: Effort normal and breath sounds normal. No stridor. Norespiratory distress. She has no wheezes. She has no rales. She exhibits notenderness.Abdominal: Soft. Normal appearance and bowel sounds are normal. She exhibits nodistension and no mass. There is no tenderness. There is no rebound and noguarding. No hernia.Mild L CVA tenderness, no R CVA tenderness.Neurological: She is alert and oriented to person, place, and time.Skin: Skin is warm and dry. Capillary refill takes less than 2 seconds.Psychiatric: She has a normal mood and affect. Her behavior is normal. Judgmentand thought content normal.Nursing note and vitals reviewed.ED CourseP roceduresMDMNumber of Diagnoses or Management OptionsFlank pain:Diagnosis management comments: 34-year-old female with left flank pain. CBC,CMP, lipase, PT, PTT, UA, Upreg, renal sonogram ordered. After patient had herlabs drawn and renal sonogram completed she eloped from the emergencydepartment. Therefore she was gone prior to any of her results coming back.This is considered an AMA discharge.Amount and/or Complexity of Data ReviewedClinical lab tests: reviewed and ordered (CBC, CMP, Lipase, UA, Upreg)Tests in the radiology section of CPT : reviewed and ordered (Renal sonogram)Risk of Complications, Morbidity, and/or MortalityPresenting problems: lowDiagnostic procedures: lowManagement options: lowPatient ProgressPatient progress: stableThis was electronically signed by JOE Orozco, 12/24/19 1:16 PM.JOE Orozco12/24/19 1851Kathy Cox MD12/25/19 0940 Name Value Range Interpretation Code Description Data Victoria rce(s) Supporting Document(s) ID Date Data Source [id number] 12/24/2019 01:37:15 PM EDT [address] [address]Cmskvcm Name: TANIYA MARTINEZPENELOPEB: 1985Sex: FOrdering Provider: АНДРЕЙ Funez Prov: АНДРЕЙ Giron Provider: Procedure Performed: US RENAL KIDNEY BILATERALExam Date: 12/24/2019 13:28MRN: [id number] Number: [id number] Class: EmergencyAccount #: [id number] for Exam: L flank painTechnique: Real time sonographic images were obtained.Comparison: November 28, 2018Findings: The kidneys are normal in size, contour and echogenicity. No mass, hydronephrosis or calcification is demonstrated.The right kidney measures 10.0 x 5.5 x 4.1 cm with cortical thickness of 16 mmLeft kidney measures 10.1 x 4.5 x 4.3 cm with cortical thickness of 14 mmIMPRESSION: Normal renal ultrasound.Report electronically signed by: JAMES MURRAY On 12/24/2019 1:37 PMWorkstation ID: [id number] Name Value Range Interpretation Code Description Data Victoria rce(s) Supporting Document(s) ID Date Data Source [id number] 12/24/2019 01:05:04 PM EDT [facility] Name Value Range Interpretation Code Description Data Victoria rce(s) Supporting Document(s) POC URINE HCG (NEG) [facility] PERFORMED BY [facility] STAFF ID Date Data Source [id number] 12/24/2019 02:00:39 PM EDT [facility] Name Value Range Interpretation Code Description Data Victoria rce(s) Supporting Document(s) COLOR [facility] APPEARANCE [facility] SPEC GRAV URINE 1.016 (1.003-1.030) [facility] PH URINE 5.0 (5.0-7.5) [facility] LEUK ESTERASE 2+ (NEG) A [facility] NITRITE URINE (NEG) [facility] PROTEIN URINE 1+ (NEG) A [facility] GLUCOSE URINE (NEG) [facility] KETONE URINE (NEG) [facility] UROBILINOGEN 0.2 mg/dL (0-1.0) [facility] BILIRUBIN URINE (NEG) [facility] BLOOD/HGB URINE 3+ (NEG) A [facility] EPITHELIAL CELLS 3+ [HPF] (NEG) A [facility] HYALINE CASTS 3.2 [LPF] (0-5) [facility] BACTERIA 3+ [HPF] (NEG) A [facility] URINE WBC 44.0 [HPF] (0-8) H [facility] URINE RBC 654.6 [HPF] (0-3) H [facility] ID Date Data Source [id number] 12/24/2019 01:52:11 PM EDT [facility] Name Value Range Interpretation Code Description Data Victoria rce(s) Supporting Document(s) URN CULTURE HOLD [facility] FOR ADD ON CULTURE ID Date Data Source [id number] 12/24/2019 02:11:08 PM EDT [facility] Name Value Range Interpretation Code Description Data Victoria rce(s) Supporting Document(s) APTT 23.8 s (22.0-34.3) [facility] ID Date Data Source [id number] 12/24/2019 02:11:08 PM EDT [facility] Name Value Range Interpretation Code Description Data Victoria rce(s) Supporting Document(s) PT 10.3 s (9.2-11.9) [facility] INR 0.98 [facility] SUGGESTED THERAPEUTIC RANGES USING INR F ORSTABILIZED ANTICOAGULATED PATIENTS:STANDARD DOSE THERAPY INR 2.0-3.0 DVT, PE, PREVENT DVT OR EMBOLISMHIGH DOSE THERAPY INR 2.5-3.5 PREVENT EMBOLISM FROM MECHANICAL HEART VALVE ID Date Data Source [id number] 12/24/2019 01:51:26 PM EDT [facility] Name Value Range Interpretation Code Description Data Victoria rce(s) Supporting Document(s) SODIUM 141 mmol/L (136-145) [facility] POTASSIUM 4.4 mmol/L (3.6-5.2) [facility] CHLORIDE 107 mmol/L (100-108) [facility] CO2 27 mmol/L (22-31) [facility] ANION GAP 7 mmol/L (7-16) [facility] UREA NITROGEN 13 mg/dL (7-24) [facility] CREATININE 0.90 mg/dL (0.60-1.00) [facility] BUN/CREAT RATIO 14.4 RATIO (10.0-20.0) [facility] GLUCOSE 82 mg/dL (70-99) [facility] CALCIUM 9.4 mg/dL (8.4-10.2) [facility] TOTAL PROTEIN 7.7 g/dL (6.4-8.2) [facility] ALBUMIN 3.8 g/dL (3.5-4.6) [facility] GLOBULIN 3.9 g/dL (2.7-4.3) [facility] ALB/GLOB RATIO 1.0 RATIO [facility] ALKALINE PHOSPHATASE 125 U/L (45-117) H [facility] BILIRUBIN,TOTAL 0.3 mg/dL (0.0-1.0) [facility] PLEASE NOTE:Total bilirubin results may be falselyelevated in patients taking Eltrombopag. AST (SGOT) 41 U/L (11-39) H [facility] ALT (SGPT) 57 U/L (12-78) [facility] GFR >60 ml/min/1.73m2 (>59) [facility] GFR ( AMER) >60 ml/min/1.73m2 (>59) [facility] GFR INTERPRETATION [facility] --NORMAL KIDNEY FUNCTION OR MILD DISEASE - GFR >OR= 60CHRONIC KIDNEY DISEASE - GFR 15 - 59RENAL FAILURE - GFR <15 Est. GFR calculation based on the MDRDstudy equation, which assumes a steadystate for creatinine. Est. GFR should notbe used for medication dosing. ID Date Data Source [id number] 12/24/2019 01:49:11 PM EDT [facility] Name Value Range Interpretation Code Description Data Victoria rce(s) Supporting Document(s) LIPASE 95 U/L (65-230) [facility] ID Date Data Source [id number] 12/24/2019 01:25:45 PM EDT [facility] Name Value Range Interpretation Code Description Data Victoria rce(s) Supporting Document(s) WBC 6.7 10*3/uL (4.1-11.0) [facility] RBC 4.46 10*6/uL (4.00-5.40) [facility] HGB 12.7 g/dL (12.0-16.0) [facility] HCT 37.5 % (36.0-47.0) [facility] MCV 84.1 fL (80.0-95.0) [facility] MCH 28.5 pg (27.0-32.0) [facility] MCHC 33.9 g/dL (32.0-36.0) [facility] RDW 13.7 % (10.5-14.5) [facility] PLT 368 10*3/uL (150-450) [facility] MPV 7.1 fL (7.1-10.7) [facility] NEUT % 66.1 % (35.0-75.0) [facility] LYMPH % 24.5 % (16.0-52.0) [facility] MONO % 5.9 % (0.0-8.0) [facility] EOS % 0.8 % (0.0-5.0) [facility] BASO % 2.7 % (0.0-4.0) [facility] NEUT # 4.5 10*3/uL (1.8-7.7) [facility] LYMPH # 1.7 10*3/uL (1.2-4.8) [facility] MONO # 0.4 10*3/uL (0.0-0.8) [facility] Eosinophils [#/volume] in Blood by Automated count 0.1 10*3/uL (0.0-0 .5) [facility] BASO # 0.2 10*3/uL (0.0-0.2) [facility] ID Date Data Source [id number] 12/19/2019 07:21:53 PM EDT [facility] Name Value Range Interpretation Code Description Data Victoria rce(s) Supporting Document(s) EKG/ECG IN ED [facility] [file] N9hpfBOYOAuWXXVXFKJVLBNMQXYNXTLOLRMSRJZXPKBVKXIJYAEZESSCIJRNICWTPFPJNNIGFIIELYXH TJNUXTNDDOVTURXMOCKZHn07h+/bf8C/oBKDNDk5OEe09PUVSYHW8A7X0g/aOD3G1Sv/ZKKKmWxjX/AI zMPnONIwHHYysfcS9U8Rh8a2Ge+vYf+mVyi8QZ3top nh/gQUUUVRuFeTfG/wD1Oi/Wb/3FoqgjtP2/9lWZlI7VHOijr7wTQFChLlU/5Duo/gAAsK6R5UY9CVIN zpn79Y5Bu9TZNJFrpZc2kn1V6Yor9u/9kooqZbGNf+Goh5vklqafgdejsSJlXmL/5Duo/xZUkL0T7BJ6 WIGPold10Z6TFwojcvpgL8i+N/8AqdF+s3/slFFTLY xr/eTSyvjMNFLC9VQjDXFc2P0Qj0q8Iu2Qr0Z/GSPF0oixe95BiXj+HdegpzhgD5a+N/8AqdF+s3/slF FTLYxr/lFMueyLUCGnbrIASSU1v7UH+Q7qP/XsP/JhMwzPPYTV2CS/CQFTLRMYc5S8N1v/QOC3X5Zs/Z KKKmWxjX/fq5egkUWfSLM2ePERPgwseKO/AJDuo/8A XqP/VVCX4QVDFe6OSp/4XFZGCFY4Lu+G/dRpBX7Q1og/XFYRBB6nMm9Iy8WAOZJQshJIMKQLXCQLUDIT UUAFFFFABRRRQAUUUUAFFFFABRRRQAUUUUAFFFFABRRRQAUUUUAFFFFABRRRQAUUUUAFFFFAH//ZDQpl hdWaqRDgZX4AQaLgTO9tix0PWMJlCXQnSolEEtz6F9 L6nKDqL2CkY1FxS30wRx1XfKXsqUL9SX6FzQx9QCSfTnikePBFRFZkTGIsNIAkV6KbAPP1Mn8+DQpzdH VuVY2WMsgihXEdD9UuGRD5tw5aCmzVule1gMGlBLZUv1UQZG9JQiEW4f1gknpgjGSje6+99xKMIABMIE bVPL3KsZiLRTi7TMNVrMCuIlCHYBhBkzPRWzQCOBZ0 SlF6EAQ3xbu4Q2gTgLqGm3Ajphr1njpN0Fr8MUUFGkIRgc2I6iHibEPAr1jKS7T39l6Mg4WassfFDehc Dk3HAcL3bqrbCodnoW/ySlWEy1TRo8C94ziPm2uyzn6j+5knJcLT4lqo4yuGPW7SRG9jl0SwONMcCIek lxJdOosTPkJ9RREhw6RjSWd0IO8Wfb9qmSKiqzh+/w VQIEwBIvPqAU8YasEyYPVFnGSrLQLUUfAiHFBQiSVbHOYWXNAMWD1ExlHoHCIDYxGiYTZVXyfrC2IjWR Rvcij+/qQMWGcUGaFiOE2FfxKmLELLwJUdWQHCDtWzLXYGwOIcSUMJMAVRVJ9BkxXnVSNOLfPnXXAZPs jyJ0NqHBNbn83OQSXeZVO7EcVuNUImLYEnVxE5CLog DS1Kz1TBDRVrSKS3QfUsZISbRSLaXaU7AZwrGX6+UPnyblEsPcxPOkI7YUYch6BmCTquZIR5HQ6vCRrr jcRhAhmZLoStEVPxt6TxVSirKJH9KF2lDMpozvVjRbtRBrOiGVDrr4MxFYh4TB3SdXLmC1sBATVpW8p2 DYYdVJ5FLpExBLQxCp9pZ7Tcy6UzUHJcWLLiDV6ycx ZxBQDvGKEqABQuTNZzPGXaT1Y9U4LeBUW3XTB8MSoNKNM7KzCaEZWgJiDxCmm7AShOXxfDXibCLXgFRR R7EKR9GfftPOIbRYaKS4ABKG6wJQ2ApYs9RVFvLqwflIRTRLSoVFMbCKLhP3PjDKg3Ii1EOtG3gdBmzT 0KeJxjYACC//6DspFdXuYSvmWPG4TV24SyyOTtGOPL CMHgcPAJDM5XgbpV6DNtUZhMJKCocUDVZUiRAxvOyPDBVrAWrsJG4hTRMhZxr+iVES2ENmMc7TarOSko sxPcoNEqSH7UFfCpFO6inf3AxMHdAe7MIXSvGw7ENJMiXXAmUWOqEXJ4MJHqBIVxFHijLLGuCZKwZLA1 TNPhVRAgEH1DPsPmMKXoKKNqQiNhQJRyPKDiat8ZBV OuTBMtBTZ5WDHlDMRjUBJdCXjiWTHnVWUfIRVvAEPzOSNaRX5SUbSrEJXnTZN0PuAaLGLyIRMdun2ANE DrNNCbNFasIzRtFQSoYRRjICzlDWWuFWWmBPH3IWStUNSxOU0OZyIwNZPoTQEwBthsRLPqIMFpcw3IAS OcXLXnUUZ3EQJiXYNwQBCaGBqhNPXjEFBaPFAlXUW3 ZNF1LNQSSwFgEKFsBUAvBBLwKwT6NpYjBh7AIBOzJWToEJXtDhR4PHOpAEFqRIvdZOMpKTWgRIX5IQC0 GHE5DNPFZpAnQNOiYNSfDVGiJmJ4KlLtTe4IPJOlVUVmLLSgRoX0MUPhNGOoMYoyCCZaAWYrSAO1EHL2 CZL2IVUQIqAoBELbXAMpGDFjBoX3IvTyOp0ECZOeSC SrDeQ9IlKqQOGzRPIiBIihKRCyXuL7CycjCHYwFLEhFG8TUnRkNDObKWC9AGByVGDiMAForq1CKTUnXN OhIaUnMqYbXBKkMKRuJWg9xeKboZMvQDy9YX6AkBvuBZByG4Bez7FmBVXkJMNzOX1mzyFaDZHsZCCnIW OiKAUfCUYcP0X2W1RrDMY0OGD8ONdTAAO8XwTtZFNq MzBsIuh6DUgFKavVDvjVYTbBQEC0HBW1IirzVPLpCTdDD1SPAQ2zER9+DQpzdGFydHhyZWYNCjIwNjcy XO3MSLMOL3QNAhcuWLBQCwOoVS4XpPQtlDnxbq7EFIfuU5l1MXUdDr9Mi594OUBqEPZWJ2udEf7rUXed NARZQ4bJBjw1DFrKJlpOMwsLQBpPITY2HYA1WircKY ErXEfQE9RTZD07GeP4CbD3YVc4XJL5Nks0Fqi8T2U2RTGCJWC0WRVSTTE+YFJhQDLbybJkVRH4EdWzRG CrWuY6xZYaKJH5Ddl+Gh1Vf1JorxP6eoAqOAumPJndUbGWUwEdUJ9Q ID Date Data Source [id number] 12/19/2019 07:21:00 [place] [address] Patient Name: Taniya Field Exam Date: 12/19/19 : 1985 CC: EKG/ECG in ED Ordering Doctor: Madie Moreno MD Attending Doctor: Madie Moreno MD CC: EKG/ECG in ED APPROVED REPORT ECG MEASUREMENT Heart Rate 84 AXES DE 141 P 38 QRSd 93 QRS -21 QT 364 T -9 QTc 405 INTERPRETATION Normal sinus rhythm, no acute signs of ischemia infarction, normal axis, normal QRS, rate 84 <Conclusion> Normal sinus rhythm, no acute signs of ischemia infarction, normal axis, normal QRS, rate 84 End of diagnostic report for accession: [id number] Interpreted: Madie Moreno MD 12/19/191920 Transcribed: Signed: Madie Moreno MD 12/19/191921 Interpreted by: Madie MorenoTranscribed by: Madie Moreno Name Value Range Interpretation Code Description Data Victoria rce(s) Supporting Document(s) ID Date Data Source [id number] 12/02/2019 02:52:00 PM EDT [facility] Run: 12/04/19 0813 INTERFACED REPORT Name: Taniya Field Age/Sex: 34/F Location: ED Acct: [id number] Unit: [id number] Status: [facility] Room/Bed: Re12/02/19 Disch: Att Dr: Estevan Rich MD Specimen #: [id number] Ordered : 12/02/19 Collected : 12/02/19 By: TIFFANIE Received: 12/02/19 By: JEFFRY Source: URINE CC Specimen Description: Procedure Result - COLONY COUNT Final COLONY COUNT 1,000 CFU/ML URINE CULTURE Final NO SIGNIFICANT GROWTH <18 HOURS NO SIGNIFICANT GROWTH 42 HOURS URINE CULTURE Preliminary (Corrected) NO SIGNIFICANT GROWTH <18 HOURS END OF REPORT Name Value Range Interpretation Code Description Data Victoria rce(s) Supporting Document(s) COLOR,UR LUIS M YELLOW A [facility] APPEARANCE,UR CLOUDY CLEAR A [facility] PH,UR 5.0 5.0-8.0 [facility] SPECIFIC GRAVITY,UR 1.032 1.002-1.035 [facility] PROTEIN,UR 100 MG/DL NEGATIVE A [facility] GLUCOSE, UR NEGATIVE MG/DL NEGATIVE [facility] KETONES,UR NEGATIVE MG/DL NEGATIVE [facility] OCCULT BLOOD,UR LARGE NEGATIVE A [facility] NITRATE,UR NEGATIVE NEGATIVE [facility] LEUKOCYTE ESTERASE ,UR LARGE NEGATIVE A [facility] BILIRUBIN,UR NEGATIVE NEGATIVE [facility] UROBILINOGEN,UR 0.2-1.0 EU MG/DL NEG-0-1.0 [facility] RBC,UR >100 PER HPF 0-2 A [facility] WBC,UR 10-24 PER HPF <5 A [facility] URINE EPITH MANY PER/LPF FEW-MOD [facility] MUCUS,UR MODERATE PER HPF NONE SEEN [facility] ID Date Data Source [id number] 12/04/2019 08:13:00 AM EDT [place]: 12/04/19812 INTERFACED REPORT Name: Taniya Field Age/Sex: 34/F Location: ED Acct: [id number] Unit: [id number] Status: DEP ER Room/Bed: Re12/02/19 Disch: Tatiana Dr: Estevan Rich MD Specimen #: [id number] Ordered : 12/02/19 Collected : 12/02/19 By: KAREL/JORGE Received: 12/02/19 By: JEFFRY Source: URINE CC Specimen Description: Procedure Result - COLONY COUNT Final COLONY COUNT 1,000 CFU/ML URINE CULTURE Final NO SIGNIFICANT GROWTH <18 HOURS NO SIGNIFICANT GROWTH 42 HOURS URINE CULTURE Preliminary (Corrected) NO SIGNIFICANT GROWTH <18 HOURS END OF REPORT Name Value Range Interpretation Code Description Data Victoria rce(s) Supporting Document(s) ID Date Data Source [id number] 12/02/2019 01:43:28 PM [facility] Name Value Range Interpretation Code Description Data Victoria rce(s) Supporting Document(s) EKG/ECG IN ED [facility] CBCNQl8mVnNBHzA1giU6XKgzRCMwe6LnTAn8CG3IoYIiE9WkqROff6wvLLYxPAYyBrLkIHBvEHJeCpmt zm5HYxdwD5G7otFioWTjFPQTw408GVEbPJGvTm8OBLGjNK3ryfd4L26hxmbjFJA8tiXbVp5+Gq0IYJ9f v2XeVLaeOKZro6VkAEz8BT0EzDFdK7WaZ3MoF1KlnS 69UGNpI3tjk0hjPcOdGATjVARcHRTPQAR+Lu8AUK7wa1IlJWwpANOxz7UfLNb8GL3QhJEpL8YwE6DmFA MzLL47OKXwWQLLS4Fte662vbYgnil1C1ZibyF5OI1FXSE7GSMzYj1UEtU9OJVlIl4+N4rDQvjdO2I7KI 9JbWFnZTkgOSAwIFI+Tx6Qvx3yW4O4Iq3RJGOjWKJ1 jI5CwYUoFXAtTE4eE4VYK1avXAaiHK3zZj1tMCWeqAFDu6srTMIsGGZ7YEZuWNSoRrsgJwSfZBHaO78d lXKtsOPeWASqNYCwX9RpuOU0SA5FfZBkX7jwv3AyS1KzQDNoprBvHSGpfwZ3Q1TOJ7OwhimeUGCUEy9+ M2EeGiJdWw0MdCL4E7OZHFCjlmIrVEC+Ej8NJT1gf7 UvCYy3QFFxv9SfTZe6SO3OvJo2CGTsRmdnjMQTVLQoGDRiVYJqS6BfRXBvCQ5+KLnrjJKyQM5UMtiugG 6Lb9PnHZnwuzrW7alb+RLF0SLHiF0QS5KNnlRihMO5GQZYa/832gCTJN348J15z/PQ+rlql19thdctt+ marilia/6KS2eqV7D8uXq73F4442ZTs0PYbQgyq0uVVsPk [file] dxPQjGhaqq32w1GJ0rdH7AHONGTIISdKFiKNSH0YSendy05iGy/b2n/a/angela/gv63lr1apg5zggZ7zrBj R6R3pvJ8A4wPmZfnPbltm7o2RWWGyYNiyApbB9dUBX 2+NGmvDOEFFODmhkTtdoU6b0wK41DuZ4k0IrBfRMUphrGbhCcEp/cnCFLRUQHjyUDGH5zaf30S51012t RuF95xdQtY3P6NioOwmfFtsBmvQpRwWxJZZzDUWIl0KH4xSshQZ6sek6p/2PB/b32L+0/s171Kq6f4a8 7d/ynkkcLrHDijLxcnT5j6mG6T0pTaCFZO5d1F9rZo zOts7pI8sPcBP5176Q62d2Xa3oWk36ubyTz9w0Ktdq88xZQq/U7evSfiYB+2Mdqx/MD2oJh7hr9hjxQ3 eqvTZc3aemMBc8TBzfTvJgYoMGNfeWGu4sTzgpxtH3koNNwQ9g6t+xd6k70YuxdkJA2hNlIlHZRFRogI 4iFVv5jd57j3RIMB4f9YvIaLa1fDp8X/yEtTl0+KGO FpjRNconR0v6FJlXK0Mwfm1pyC9N1HXgL8S1E7xg/yMZJE9f/fszmjdlvcmGEjLT6bNDb4Y7vAs+8yMe n0CyGxeFspP/LZleNx03pdKrMew2aPL6lDWXCBhue08tfS6kKb38nCcC56a1TVs7fqeh+GfhpLczWryx i5vZbDeMoD4KVH1SZKB1vraNb5agdxNeisvNx+rraL rhyVLtWKWKXf5C2aDRxHuZH5/SiDVN3YdI3jy5KU6P9DukT8pmfrbY7cIWAm2ecDrAaUfoFZVlndFTFx jmppvhTVdOv/G4kp4uh9QfPDpifF3hVD0ubkuDWWgPRW75e9s1uFrLP2Zo6Jkt4/4RT+w/4vtP9q+d7b dnl/2ZOd92o2sh72s6oGG54nuBsf0QwKVthbGrl/anesthesia resident [file] 0K2F6Zss+AmO8nVvEnmLFgdG3KHhba5JO/V9+X [file] a+Ped[place]/pCrkO4O7xgXtLzmGbV8f4lkUGOyxhp4EXT4S2pN1m0Y4H1SlW1+VZXJ0rpcCwDDi/V/5zSabMat [file] H7ca348XHddbtC48YwjkhI50JgiKFj7hwoAnB/Emily ylT3kv8ZspiN0SDJfAiQvLgq0QASHMwlskDk1YtXILmz7GWQmCdlvmdG3HCosrpemJCA12NrwqS7ZxLr 5Z2FCh3ypMt8sEEtNOMjT1oxONSz1DgYJGJunaihKSvkTeNqJu98j7zOwXI0XhoURzCIykWWYVdyIoC3 2qrlRQkO8m9H3L3SIiaIu310DqeOqbnqVdoRC/YS20 75bQUzgW1XVI2ASDFBL5ebJUoPF1vfzJ/tCxSbiZ07d7UJuQDzLrlZC+loKGKwwS53Asx97/IaWxoM0z 6NohnyxdoVmqy3bUL0JK6oJ9uM6kcrxEAvNCDnilosnOPJ06OvoOjoWwz5LN/2DtfxA7Or530QRaSlPJ 0gYzynFfGBRMLL0SGGiYGwQ+1gHQn365WunI6cQqmW 92Hpix8gcnKjiMVlnSybBd/3BfvYE5U96f4TFPDAm3TrWTQylaLNunO11LKDbtU/SWIGwYbl9fmPQln7 viSFXIcD3A92h1aXMEqkrFoivxDLGYHHPQjyhoLoybvS0H2wzT3R21ICMlASS5aws0TKP2f3Kv2lhyEW mSb02kjQHsebWoi8gGTxPnqsZ4Df30I9P5ZbjkhMr9 8pNO9pMd8qgMGaQJC3RXMgb4RNqxzbZ1rNHTvsmfJmSL1zFMIRVy6cGRrwkkXTPJqHh8Qd4qafhc/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 bootmaker [file] tDV7YwEjYQv+Ls2Gf1VqeqS2jaDkASe7XbJ5CNkPQoMsKP6G ID Date Data Source [id number] 12/02/2019 01:43:00 [place] [address] Patient Name: Taniya Field Exam Date: 12/02/19 : 1985 CC: EKG/ECG in ED Ordering Doctor: Dileep Osei NP Attending Doctor: Estevan Rich MD CC: EKG/ECG in ED APPROVED REPORT ECG MEASUREMENT Heart Rate 69 AXES DE 143 P 38 QRSd 94 QRS -17 QT 420 T - 9 QTc 440 INTERPRETATION SINUS RHYTHM LOW QRS VOLTAGE IN PRECORDIAL LEADS [QRS DEFLECTION < 1.0 mV IN CHEST LEADS] PATTERN CONSISTENT WITH PULMONARY DISEASE MINIMAL VOLTAGE CRITERIA FOR LVH, CONSIDER NORMAL VARIANT [MEETS CRITERIA IN ONE OF: R(aVL), S(V1), R(V5), R(V5/V6)+S(V1)] SEPTAL MYOCARDIAL INFARCTION , PROBABLY OLD [40+ ms Q WAVE IN V1/V2] <Conclusion> SINUS RHYTHM LOW QRS VOLTAGE IN PRECORDIAL LEADS [QRS DEFLECTION < 1.0 mV IN CHEST LEADS] PATTERN CONSISTENT WITH PULMONARY DISEASE MINIMAL VOLTAGE CRITERIA FOR LVH, CONSIDER NORMAL VARIANT [MEETS CRITERIA IN ONE OF: R(aVL), S(V1), R(V5), R(V5/V6)+S(V1)] SEPTAL MYOCARDIAL INFARCTION , PROBABLY OLD [40+ ms Q WAVE IN V1/V2] End of diagnostic report for accession: [id number] Interpreted: Estevan Rich MD 12/02/191342 Transcribed: Signed: Estevan Rich MD 12/02/19 134 Interpreted by: Estevan RichTranscribed by: Estevan Rich Name Value Range Interpretation Code Description Data Victoria rce(s) Supporting Document(s) ID Date Data Source [id number] 12/02/2019 01:42:00 PM EDT [facility] Has Patient Fasted For The Past 12 Hour s? N Has Patient Fasted For The Past 12 Hour s? N Has Patient Fasted For The Past 12 Hour s? N Has Patient Fasted For The Past 12 Hour s? N Name Value Range Interpretation Code Description Data Victoria rce(s) Supporting Document(s) WHITE BLOOD COUNT 7.33 10^3/uL 4.00-10.50 N [facility] RED BLOOD COUNT 4.15 10^6/uL 3.90-5.20 [facility] HEMOGLOBIN 12.0 G/DL 11.5-15.6 [facility] HEMATOCRIT 36.4 % 35.0-46.0 N [facility] MCV 87.7 FL 80.0-100.0 N [facility] MCH 28.9 PG 27.0-34.0 N [facility] MCHC 33.0 G/DL 32-36 N [facility] RDW 13.2 % 11.5-14.5 [facility] PLATELET COUNT 382 10^3/uL 130-400 [facility] MPV 9.3 FL 8.7-13.2 [facility] GRAN % (AUTO) 67.4 % 42.0-75.0 N [facility] LYMPH % (AUTO) 25.1 % 20.0-51.0 [facility] MONO % (AUTO) 6.1 % 2.0-15.0 [facility] EOS % (AUTO) 0.7 % 0.0-11.0 [facility] BASO % (AUTO) 0.3 % 0.0-2.0 N [facility] IG % (AUTO) 0.4 % 1.00-5.00 [facility] IG # (AUTO) 0.0 10^3/uL <0.5 [facility] GRAN # (AUTO) 4.94 10^3/uL 1.50-6.50 [facility] LYMPH # (AUTO) 1.8 k/uL 1.0-5.0 N [facility] MONO # (AUTO) 0.45 k/uL 0.20-1.50 [facility] EOS # (AUTO) 0.05 10^3/uL 0.00-1.10 N [facility] BASO # (AUTO) 0.02 10^3/uL 0.00-0.20 N [facility] ID Date Data Source [id number] 12/02/2019 01:45:00 PM EDT [facility] Has Patient Fasted For The Past 12 Hour s? N Has Patient Fasted For The Past 12 Hour s? N Has Patient Fasted For The Past 12 Hour s? N Has Patient Fasted For The Past 12 Hour s? N Name Value Range Interpretation Code Description Data Victoria rce(s) Supporting Document(s) PROTHROMBIN TIME 12.2 SEC 8.9-13.3 N [facility] INR 1.1 0.0-3.6 [facility] Therapeutic Values of INR are generally between 2.0-3.0 except for Prosthetic Valves (High Risk 2.5-3.5) The use of INR is restricted to patient on stable oral anticoagulant therapy. ID Date Data Source [id number] 12/02/2019 01:52:00 PM EDT [facility] Has Patient Fasted For The Past 12 Hour s? N Has Patient Fasted For The Past 12 Hour s? N Has Patient Fasted For The Past 12 Hour s? N Has Patient Fasted For The Past 12 Hour s? N Name Value Range Interpretation Code Description Data Victoria rce(s) Supporting Document(s) SODIUM 139 MEQ/L 135-145 [facility] POTASSIUM 4.4 MEQ/L 3.5-5.3 [facility] CHLORIDE 109 MEQ/L 94-110 [facility] CARBON DIOXIDE 26 MEQ/L 22-33 [facility] ANION GAP 8 5-16 [facility] BLOOD UREA NITRO 14 MG/DL 7-25 [facility] CREATININE 0.8 MG/DL 0.6-1.4 [facility] GFR 81.2 ML/MIN [facility] Stage G2 - Mildly decreased kidney func tion The GFR is an estimate of the Glomerular Filtration Rate. It is an aid to assess a patient's renal function. It is not a conclusive diagnosis of kidney disease. GFR normal is >=90 The MDRD GFR calculation is considered valid between the ages of 18 and 75 years only. BUN/CREAT RATIO 17 8-36 N [facility] GLUCOSE 83 MG/DL 70-100 N [facility] CA 9.1 MG/DL 8.7-10.5 [facility] BILIRUBIN,TOTAL 0.4 MG/DL 0.1-1.3 N [facility] AST 59 U/L 5-40 H [facility] ALT 49 U/L 5-48 H [facility] ALKALINE PHOSPHATASE 118 U/L 40-140 [facility] alth TOTAL PROTEIN 6.6 G/DL 5.9-8.3 [facility] ALBUMIN 4.5 G/DL 3.0-5.1 [facility] GLOBULIN 2.1 G/DL 1.5-3.5 [facility] ALB/GLOB RATIO 2.1 G/DL 1.0-3.0 [facility] ID Date Data Source [id number] 12/02/2019 01:45:00 PM [facility] Has Patient Fasted For The Past 12 Hour s? N Has Patient Fasted For The Past 12 Hour s? N Has Patient Fasted For The Past 12 Hour s? N Has Patient Fasted For The Past 12 Hour s? N Name Value Range Interpretation Code Description Data Victoria rce(s) Supporting Document(s) PTT 28.2 SEC 22.2-34.9 N [facility] ID Date Data Source [id number] 12/02/2019 01:52:00 PM T [facility] Has Patient Fasted For The Past 12 Hour s? N Has Patient Fasted For The Past 12 Hour s? N Has Patient Fasted For The Past 12 Hour s? N Has Patient Fasted For The Past 12 Hour s? N Name Value Range Interpretation Code Description Data Victoria rce(s) Supporting Document(s) TROPONIN I < 0.006 NG/ML 0.000-0.040 [facility] 0.000 - 0.040 Normal. 0.041 - 0.779 S uspect myocardial injury. Repeat testing recommended. >= 0.780 Meets WHO criteria cutoff for AMI. ID Date Data Source [id number] 12/02/2019 01:52:00 PM [facility] Has Patient Fasted For The Past 12 Hour s? N Has Patient Fasted For The Past 12 Hour s? N Has Patient Fasted For The Past 12 Hour s? N Has Patient Fasted For The Past 12 Hour s? N Name Value Range Interpretation Code Description Data Victoria rce(s) Supporting Document(s) AMYLASE 42 U/L 20-115 N [facility] ID Date Data Source [id number] 12/02/2019 01:52:00 PM EDT [facility] Has Patient Fasted For The Past 12 Hour s? N Has Patient Fasted For The Past 12 Hour s? N Has Patient Fasted For The Past 12 Hour s? N Has Patient Fasted For The Past 12 Hour s? N Name Value Range Interpretation Code Description Data Victoria rce(s) Supporting Document(s) LIPASE 28 U/L 6-51 N [facility] ID Date Data Source [id number] 12/02/2019 12:18:00 [place] [address] HEALTH INFORMATION MANAGEMENT ED/UC Physician Report : [id number] Signed Patient: Taniya Field Acct:[id number] Unit: [facility] [id number] : 1985 Arrival Date: 12/02/19 Age/Sex: 34 / F Arrival Time: 1157 Copies to: Herman Jackson MD Abdominal Pain HPI/ROS General Chief Complaint: Abdominal Pain- Female<40 Stated Complaint: Stomach Pain Stated Complaint: Stomach Pain Source: Patient, Old records reviewed and RN notes reviewed Mode of arrival: Ambulatory Limitations: Reports No limitations History of Present Illness Initial Comments: 34-year-old female presents today complaining of epigastric pain. Patient reports pain started 2 days ago. She does report a chronic history of the same pain. She reports She is experiencing nausea unable to keep p.o. down. rates her pain an 8/10 aching. Denies any improves the or worsens it. Denies any urinary symptoms. Reports she is currently getting over hermenses. Denies any fevers or chills. No chest pain shortness of breath recent sick contacts or other associated symptoms at this time Related Data Home Medications Medication Instructions Recorded lisinopril- hydrochlorothiazide 1 tab PO DAILY 08/10/19 [Zestoretic] losartan [Cozaar] 25 mg PO DAILY 08/10/19 sertraline [Zoloft] 50 mg PO DAILY 08/10/19 enoxaparin 120 mg SUBCUT BID 09/30/19 hydroxyzine HCl 50 mg PO HS PRN 09/30/19 tramadol 50 mg PO Q8H PRN #9 tab MDD 3 10/15/19 omeprazole 20 mg PO BID #60 cap 12/02/19 ondansetron 4 mg PO Q8H PRN #20 tab 12/02/19 sucralfate 1 g PO QAC 20 Days #60 tab 12/02/19 Allergies Penicillins Allergy (Intermediate, Verified 12/02/19 12:09) RASH/HIVES ibuprofen Adverse Reaction (Severe, Verified 12/02/19 12:09) contraindication with blood thinner Review of Systems Review of Systems All systems: Reviewed and negative except as stated in HPI. 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 Lives with: Reports Alone PMH/PSH PMH/PSH Medical History Asthma Diverticulitis Factor 5 Leiden mutation, heterozygous Hypertension Kidney stone Pulmonary emboli Rotator cuff strain Surgical History History of appendectomy (Surgical) Hx of cholecystectomy (Surgical) Family History Other No pertinent family history Patient denies significant medical history Physical Exam Physical Exam General appearance: Alert and In distress moderate due to: Pain Head Head Exam: Atraumatic and Normcephalic Cardiac Cardiac: Present: Regular rate and rhythm, Dorsalis pulses normal equal and Radial pulses normal equal Cardiac Abnormal: Absent: Peripheral edema Murmur: Present: None Heart Sounds: Present: S1 and S2 Lung/Chest Lung/Chest Exam: Clear, Normal Exchange and No chest wall tenderness Abdomen Abdominal Exam: Bowel sounds normal, Soft, Nondistended, No guarding, No hepatosplenomegaly, No masses and No rebound tenderness; negative Nontender Abdominal Pain Location: Epigastric Back Back Exam: Full ROM, No Deformity and Skin Normal Neuro Neuro Normal: Alert, Oriented x 3, CN 2-12 normal, Fluent speech, Gait normal, Sensory normal and Strength 5/5 all extremities Psych Psych Normal: Normal Affect Skin Skin exam: Dry, Intact, [place] and Warm Course Reevaluation(s) Reevaluation(s) Reevaluation #1: Resting more comfortable at current time. Reviewed all results with patient. Discussed abnormal UA she is in agreement with waiting until the culture has resulted for starting any antibiotics. She is in no acute distress instructed she needs to follow up with GI. Time: 15:37 Vital Signs Vital signs: Vital Signs 12/02/19 12:10 Temperature 98.2 F Pulse Rate 85 Respiratory Rate 18 Blood Pressure 157/73 H O2 Sat by Pulse Oximetry 98 Medical Decision Making/CCT EKG Interpretation Complete If EKG was done has it been read?: Yes Lab Data Result diagrams: 12/02/19 13:30 12/02/19 13:30 Labs reviewed: Yes Hyperglycemia Identified Hyperglycemia identified in patient?: No Medication/Allergies Review Medication/Allergies Review Home Medication and Allergy review: I reviewed patients allergies, home medications, and new prescriptions Blood Pressure Blood pressure: Pt's blood pressure is elevated but pt has history of hypertension. Medical Decision Making Medical Decision Making: Patient with chronic upper abdominal pain. Patient has had multiple CT scans and ultrasounds without any acute findings for the pain. Patient's labs were drawn today patient without any leukocytosis left shift or bandemia. Patient's chemistry also unremarkable. Patient's UA was abnormal. Patient has past history abnormal UAs. Patient denies any urinary symptoms. No antibiotic treatment initiated at this time. Discussed with patient her symptoms may be related to an ulcer. She was instructed to follow up with GI. Start omeprazole Carafate. Patient in agreement with the discharge and the follow-up Discharge Plan Disposition Clinical Impression: Chronic abdominal pain, Abnormal finding on urinalysis, Elevated blood pressure reading Provider stated Dispo: Discharged Condition: Stable Instructions: Abdominal Pain (ED) Activity Restrictions/Additional Instructions: Increased fluids rest. Eat a bland diet as tolerated. You need to get in with GI as we discussed. Follow- up with your primary medical doctor 2-3 days. Start taking the omeprazole Carafate as prescribed. Use the Zofran as needed for nausea. As we discussed you have a urine culture still pending. If you need antibiotics we will contact you. If your symptoms worsen persist or change return to the emergency department immediately. Prescriptions: New ondansetron 4 mg tablet,disintegrating 4 mg PO Q8H PRN (Reason: nausea and vomiting) Qty: 20 RF: 0 sucralfate 1 gram tablet 1 g PO QAC 20 Days Qty: 60 RF: 0 omeprazole 20 mg capsule,delayed release(DR/EC) 20 mg PO BID Qty: 60 RF: 0 No Action losartan [Cozaar] 25 mg tablet 25 mg PO DAILY RF: 0 lisinopril-hydrochlorothiazide [Zestoretic] 10-12.5 mg tablet 1 tab PO DAILY RF: 0 sertraline [Zoloft] 50 mg tablet 50 mg PO DAILY RF: 0 tramadol 50 mg tablet 50 mg PO Q8H MDD 3 PRN (Reason: pain) Qty: 9 RF: 0 hydroxyzine HCl 50 mg tablet 50 mg PO HS PRN (Reason: Sleep) RF: 0 enoxaparin 120 mg/0.8 mL syringe 120 mg subcut BID RF: 0 Referrals: *[facility] [Provider Group] ( chronic abdominal pain.) Herman Garcia MD [Primary Care Provider] - Patient agreeable to discharge: Patient/Guardian understands and is agreeable to discharge plan Provider in triage note Vital Signs Vital Signs: I O (Last 24 Hours) 11/30/19 12/01/19 12/02/19 23:59 23:59 23:59 Other: Weight 118.64 kg Vital Signs ( Last 8 Hours) Temp Pulse Resp BP Pulse Ox 12/02/19 12:10 98.2 F 85 18 157/73 H 98 Date/Time <<Signature on File>> Initializing User: Dileep Osei NP 12/02/19 1218 Signed by: Dileep Osei NP 12/02/19 1616 Estevan Rich MD 12/02/19 1821 Name Value Range Interpretation Code Description Data Victoria rce(s) Supporting Document(s) ID Date Data Source [id number] 12/02/2019 11:20:00 AM EDT [facility] Name Value Range Interpretation Code Description Data Victoria rce(s) Supporting Document(s) WHITE BLOOD COUNT 6.73 10^3/uL 4.00-10.50 [facility] RED BLOOD COUNT 4.06 10^6/uL 3.90-5.20 N [facility] HEMOGLOBIN 11.7 G/DL 11.5-15.6 N [facility] HEMATOCRIT 34.6 % 35.0-46.0 [facility] MCV 85.2 FL 80.0-100.0 N [facility] MCH 28.8 PG 27.0-34.0 N [facility] MCHC 33.8 G/DL 32-36 N [facility] RDW 13.1 % 11.5-14.5 N [facility] PLATELET COUNT 328 10^3/uL 130-400 N [facility] MPV 8.8 FL 8.7-13.2 N [facility] GRAN % (AUTO) 67.6 % 42.0-75.0 N [facility] LYMPH % (AUTO) 23.8 % 20.0-51.0 N [facility] MONO % (AUTO) 7.3 % 2.0-15.0 N [facility] EOS % (AUTO) 0.7 % 0.0-11.0 N [facility] BASO % (AUTO) 0.3 % 0.0-2.0 N [facility] IG % (AUTO) 0.3 % 1.00-5.00 [facility] IG # (AUTO) 0.0 10^3/uL <0.5 [facility] GRAN # (AUTO) 4.55 10^3/uL 1.50-6.50 N [facility] LYMPH # (AUTO) 1.6 k/uL 1.0-5.0 N [facility] MONO # (AUTO) 0.49 k/uL 0.20-1.50 N [facility] EOS # (AUTO) 0.05 10^3/uL 0.00-1.10 N [facility] BASO # (AUTO) 0.02 10^3/uL 0.00-0.20 N [facility] ID Date Data Source [id number] 12/02/2019 11:38:00 AM EDT [facility] Name Value Range Interpretation Code Description Data Victoria rce(s) Supporting Document(s) SODIUM 141 MEQ/L 135-145 N [facility] POTASSIUM 4.1 MEQ/L 3.5-5.3 N [facility] CHLORIDE 108 MEQ/L 94-110 N [facility] CARBON DIOXIDE 23 MEQ/L 22-33 N [facility] ANION GAP 14 5-16 N [facility] BLOOD UREA NITRO 15 MG/DL 7-25 N [facility] CREATININE 0.9 MG/DL 0.6-1.4 N [facility] GFR 70.8 ML/MIN [facility] Stage G2 - Mildly decreased kidney func tion The GFR is an estimate of the Glomerular Filtration Rate. It is an aid to assess a patient's renal function. It is not a conclusive diagnosis of kidney disease. GFR normal is >=90 The MDRD GFR calculation is considered valid between the ages of 18 and 75 years only. BUN/CREAT RATIO 16 8-36 N [facility] GLUCOSE 98 MG/DL 70-100 N [facility] CA 9.2 MG/DL 8.7-10.5 N [facility] BILIRUBIN,TOTAL 0.3 MG/DL 0.1-1.3 N [facility] AST 44 U/L 5-40 H [facility] ALT 47 U/L 5-48 N [facility] ALKALINE PHOSPHATASE 117 U/L 40-140 [facility]th TOTAL PROTEIN 6.4 G/DL 5.9-8.3 N [facility] ALBUMIN 4.5 G/DL 3.0-5.1 [facility] GLOBULIN 1.9 G/DL 1.5-3.5 [facility] ALB/GLOB RATIO 2.4 G/DL 1.0-3.0 [facility] ID Date Data Source [id number] 11/13/2019 11:05:00 [place] [address] Patient Name: Taniya Field Exam Date: 11/13/19 : 1985 Ordering Doctor: Marti Fleming NP Attending Doctor: Scott Adler MD CC: CT ABDOMEN AND PELVIS WITHOUT IV CONTRAST INDICATION: Abdominal pain, nausea, vomiting. Right-sided abdominal pain with history of kidney stones. COMPARISON: 09/30/2019 IV CONTRAST: None Preliminary report by [facility] . One or more of the following dose reduction techniques were utilized in effectively lowering the radiation dose for this examination: Automated Exposure Control, Adjustment of the mA and/or kV according to patient size, or Iterative reconstruction. FINDINGS: LUNG BASES: No pulmonary nodules or masses. No pleural effusions. LIVER: Steatosis. No focal liver lesion. Cholecystectomy. SPLEEN: Normal. PANCREAS: Normal. ADRENALS: Normal bilaterally. KIDNEYS/: Previously noted subcentimeter hypodensity in the left kidney cannot be identified on noncontrast scan. No hydronephrosis or nephrolithiasis. No ureteral or bladder calculi. No abnormal enlargement of uterine or adnexal structures. BOWEL/GI: No bowel obstruction. Sigmoid region degraded by motion. No findings to suggest diverticulitis or colitis. Right lower quadrant clips typical of appendectomy are again noted. No free air or free fluid. Small fat-containing periumbilical hernia as prior. No indication of incarceration. NODES/RETROPERITONEUM: No adenopathy, AAA, or retroperitoneal hematoma. SKELETAL: Mild lower thoracic degenerative disc change. IMPRESSION: No hydronephrosis or urolithiasis. No acute abnormality or significant interval change. No etiology for right-sided abdominal pain is identified. Steatosis. Appendectomy and cholecystectomy. Diverticulosis. Professional interpretation performed by [facility] . End of diagnostic report: [id number] Signed: Sameer Ghotra MD 11/14/19 0737 Interpreted by: Sameer GhotraTranscribed by: Sameer Ghotra Name Value Range Interpretation Code Description Data Victoria rce(s) Supporting Document(s) ID Date Data Source [id number] 11/13/2019 09:46:00 [place] [address] HEALTH INFORMATION MANAGEMENT ED/UC Physician Report : [id number] Signed Patient: Taniya Field Acct:[id number] Unit: [id number] : 1985 Arrival Date: 11/13/19 Age/Sex: 33 / F Arrival Time: 2052 Copies to: Herman Jackson MD Abdominal Pain HPI/ROS General Chief Complaint: Abdominal Pain- Female<40 Stated Complaint: abd pian/nausea/vomiting Source: Patient Mode of arrival: Ambulatory Limitations: Reports No limitations History of Present Illness Initial Comments: 33-year-old female presents to the emergency department today with complaints of right-sided pain. She states that she noticed blood in her urine and she has mild right flank pain. Patient states she does have a history of kidney stones. Patient is known to have chronic hematuria. patient has been seen several times in the emergency department for similar complaints. She does have chronic pain issues, reportedly being [facility]. Time interval: Days(s) Location: Reports R flank, RLQ and RUQ Severity: Reports Moderate and Severe Improves With: Reports Nothing Worsens With: Reports Nothing Associated Symptoms: Reports Denies other symptoms Related Data LMP (females 10-50): Last week Home Medications Medication Instructions Recorded lisinopril-hydrochlorothiazide 1 tab PO DAILY 08/10/19 [Zestoretic] losartan [Cozaar] 25 mg PO DAILY 08/10/19 sertraline [Zoloft] 50 mg PO DAILY 08/10/19 enoxaparin 120 mg SUBCUT BID 09/30/19 hydroxyzine HCl 50 mg PO HS PRN 09/30/19 tramadol 50 mg PO Q8H PRN #9 tab MDD 3 10/15/19 Allergies Penicillins Allergy (Intermediate, Verified 11/13/19 21:32) RASH/HIVES ibuprofen Adverse Reaction (Severe, Verified 11/13/19 21:32) contraindication with blood thinner Review of Systems Review of Systems All systems: Reviewed and negative except as stated in HPI. 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 PMH/PSH PMH/PSH Medical History Asthma Diverticulitis Factor 5 Leiden mutation, heterozygous Hypertension Kidney stone Pulmonary emboli Rotator cuff strain Surgical History History of appendectomy (Surgical) Hx of cholecystectomy (Surgical) Family History Other No pertinent family history Patient denies significant medical history Physical Exam Physical Exam Physical Exam: Physical Exam General appearance: Alert and In no apparent distress; negative In distress Head Head Exam: Atraumatic and Normcephalic Neck Neck Exam: Full ROM, Supple and Trachea Midline Cardiac Cardiac: Present: Regular rate and rhythm and Radial pulses normal equal Murmur: Present: None Heart Sounds: Present: S1 and S2 Lung/Chest Lung/Chest Exam: Clear, Normal Exchange and No chest wall tenderness Abdomen Abdominal Exam: Bowel sounds normal, Soft, Nondistended, nonspecific right abdominal tenderness noted, No guarding and No masses back: Slight right CVA tenderness reported Neuro Neuro Normal: Alert, Oriented x 3 and Fluent speech Psych Psych Normal: Normal Affect Skin Skin exam: Dry, Intact, [place] and Warm Course Vital Signs Vital signs: Vital Signs 11/13/19 21:00 Temperature 98.9 F Pulse Rate 105 H Respiratory Rate 16 Blood Pressure 136/89 O2 Sat by Pulse Oximetry 98 Medical Decision Making/CCT EKG Interpretation Complete If EKG was done has it been read?: N/A Lab Data Result diagrams: 11/13/19 21:42 11/13/19 21:42 Labs reviewed: Yes Hyperglycemia Identified Hyperglycemia identified in patient?: No Medication/Allergies Review Medication/Allergies Review Home Medication and Allergy review: I reviewed patients allergies, home medications, and new prescriptions Blood Pressure Blood pressure: Pt BP elevated has following urgent/emergent condition, without HX HTN Radiology Data Radiology Data Radiology results: report reviewed Radiology impressions: no acute findings Medical Decision Making Medical Decision Making: The patient presented with nonspecific abdominal pain. There was no significant history of vomiting or diarrhea and no fever. The patient appeared comfortable, well hydrated and the abdominal exam was mildly tender without guarding or rebound and no focal tenderness to me. Laboratory and radiologic/CT evaluation revealed no significant abnormalities. There was no evidence of an acute, surgical abdomen at this time. There was no clinical evidence to support appendicitis, bowel obstruction, cholecystitis/cholelithiasis, pancreatitis, perforation of gastric ulcer, colitis, diverticulitis, bacterial peritonitis, obstruction, volvulus, hernial incarceration or strangulation at this time. There was no evidence to support vascular pathology such as AAA, mesenteric ischemia. There was also no clinical evidence by history, exam or risk factors to suggest atypical presentation of cardiac disease such as ACS, AMI or atypical angina. No evidence to suggest genitourinary etiology as well. Clinical picture was discussed with the patient, as well as plan of care. the patient has a history of chronic pain and is being seen by size painter. The patient was instructed to follow up with their physician. Abdominal pain warnings were discussed with the patient. The patient is to return if worsens, pain worsens or changes, develop fever, inability to tolerate fluids with or without vomiting, unable to establish follow up or as needed. The patient agrees with plan. Crit ical Care Time Critical Care Time: No Discharge Plan Disposition Clinical Impression: Chronic pain Qualifiers: Chronic pain type: chronic pain syndrome Qualified Code(s): G89.4 - Chronic pain syndrome Provider stated Dispo: Discharged Condition: Stable Instructions: Chronic Abdominal Pain (ED) Activity Restrictions/Additional Instructions: continue medications as prescribed. Follow-up with your size painter or primary physician. Return to the ER for any concerns. Prescriptions: No Action losartan [Cozaar] 25 mg tablet 25 mg PO DAILY RF: 0 lis inopril-hydrochlorothiazide [Zestoretic] 10-12.5 mg tablet 1 tab PO DAILY RF: 0 sertraline [Zoloft] 50 mg tablet 50 mg PO DAILY RF: 0 tramadol 50 mg tablet 50 mg PO Q8H MDD 3 PRN (Reason: pain) Qty: 9 RF: 0 hydroxyzine HCl 50 mg tablet 50 mg PO HS PRN (Reason: Sleep) RF: 0 enoxaparin 120 mg/0.8 mL syringe 120 mg subcut BID RF: 0 I-Stop reference number: [id number] Referrals: Herman Jackson MD [Primary Care Provider] - Patient agreeable to discharge: Patient/Guardian understands and is agreeable to discharge plan Provider in triage note Vital Signs Vital Signs: I O (Last 24 Hours) 11/11/19 11/12/19 11/13/19 23:59 23:59 23:59 Other: Weight 260 lb 2.327 oz Vital Signs (Last 8 Hours) Temp Pulse Resp BP Pulse Ox 11/13/19 21:00 98.9 F 105 H 16 136/89 98 Date/Time <<Signature on File>> Initializing User: Marti Fleming NP 11/13/19 [id number] Signed by: Marti Fleming NP 11/13/19 [id number] Scott Adler MD 11/13/19 [id number] Name Value Range Interpretation Code Description Data Victoria rce(s) Supporting Document(s) ID Date Data Source [id number] 11/13/2019 10:28:00 PM EDT [facility] Name Value Range Interpretation Code Description Data Victoria rce(s) Supporting Document(s) HCG QUALITATIVE SPECIMEN SERUM [facility] ID Date Data Source [id number] 11/13/2019 10:28:00 PM EDT [facility] Name Value Range Interpretation Code Description Data Victoria rce(s) Supporting Document(s) HCG RESULT,S NEGATIVE [facility] Reference range is Negative "Extreme" early may have low levels of HCG present. If is suspected, repeat testing with a new specimen in 48-72 hours ID Date Data Source [id number] 11/13/2019 10:06:00 PM EDT [facility] Has Patient Fasted For The Past 12 Hour s? N Has Patient Fasted For The Past 12 Hour s? N Has Patient Fasted For The Past 12 Hour s? N Name Value Range Interpretation Code Description Data Victoria rce(s) Supporting Document(s) WHITE BLOOD COUNT 6.35 10^3/uL 4.00-10.50 N [facility] ealth RED BLOOD COUNT 4.05 10^6/uL 3.90-5.[address] [facility] th HEMOGLOBIN 11.8 G/DL 11.5-15.6 N [facility] HEMATOCRIT 34.7 % 35.0-46.0 L [facility] MCV 85.7 FL 80.0-100.0 N [facility] MCH 29.1 PG 27.0-34.0 N [facility] MCHC 34.0 G/DL 32-36 N [facility] RDW 13.0 % 11.5-14.5 N [facility] PLATELET COUNT 289 10^3/uL 130-400 N [facility] MPV 9.0 FL 8.7-13.2 N [facility] GRAN % (AUTO) 53.9 % 42.0-75.0 N [facility] LYMPH % (AUTO) 35.4 % 20.0-51.0 N [facility] MONO % (AUTO) 8.0 % 2.0-15.0 N [facility] EOS % (AUTO) 1.9 % 0.0-11.0 N [facility] BASO % (AUTO) 0.3 % 0.0-2.0 N [facility] IG % (AUTO) 0.5 % 1.00-5.00 [facility] IG # (AUTO) 0.0 10^3/uL <0.5 [facility] GRAN # (AUTO) 3.42 10^3/uL 1.50-6.50 N [facility] LYMPH # (AUTO) 2.3 k/uL 1.0-5.0 [facility] # (AUTO) 0.51 k/uL 0.20-1.50 [facility] EOS # (AUTO) 0.12 10^3/uL 0.00-1.10 [facility] BASO # (AUTO) 0.02 10^3/uL 0.00-0.20 N [facility] ID Date Data Source [id number] 11/13/2019 10:27:00 PM EDT [facility] Has Patient Fasted For The Past 12 Hour s? N Has Patient Fasted For The Past 12 Hour s? N Has Patient Fasted For The Past 12 Hour s? N Name Value Range Interpretation Code Description Data Victoria rce(s) Supporting Document(s) SODIUM 143 MEQ/L 135-145 N [facility] POTASSIUM 3.5 MEQ/L 3.5-5.3 N [facility] CHLORIDE 107 MEQ/L 94-110 N [facility] CARBON DIOXIDE 27 MEQ/L 22-33 N [facility] ANION GAP 13 5-16 N [facility] BLOOD UREA NITRO 15 MG/DL 7-25 N [facility] CREATININE 0.9 MG/DL 0.6-1.4 N [facility] GFR 71.3 ML/MIN [facility] Stage G2 - Mildly decreased kidney func tion The GFR is an estimate of the Glomerular Filtration Rate. It is an aid to assess a patient's renal function. It is not a conclusive diagnosis of kidney disease. GFR normal is >=90 The MDRD GFR calculation is considered valid between the ages of 18 and 75 years only. BUN/CREAT RATIO 16 8-36 N [facility] GLUCOSE 95 MG/DL 70-100 N [facility] CA 9.2 MG/DL 8.7-10.5 N [facility] BILIRUBIN,TOTAL 0.2 MG/DL 0.1-1.3 N [facility] AST 44 U/L 5-40 H [facility] ALT 59 U/L 5-48 H [facility] ALKALINE PHOSPHATASE 115 U/L 40-140 N [facility] alth TOTAL PROTEIN 6.6 G/DL 5.9-8.3 N [facility] ALBUMIN 4.5 G/DL 3.0-5.1 N [facility] GLOBULIN 2.1 G/DL 1.5-3.5 N [facility] ALB/GLOB RATIO 2.1 G/DL 1.0-3.0 N [facility] ID Date Data Source [id number] 11/13/2019 10:27:00 PM EDT [facility] Has Patient Fasted For The Past 12 Hour s? N Has Patient Fasted For The Past 12 Hour s? N Has Patient Fasted For The Past 12 Hour s? N Name Value Range Interpretation Code Description Data Victoria rce(s) Supporting Document(s) MAGNESIUM 1.8 mg/dl 1.8-2.4 N [facility] ID Date Data Source [id number] 11/13/2019 10:27:00 PM EDT [facility] Has Patient Fasted For The Past 12 Hour s? N Has Patient Fasted For The Past 12 Hour s? N Has Patient Fasted For The Past 12 Hour s? N Name Value Range Interpretation Code Description Data Victoria rce(s) Supporting Document(s) LIPASE 36 U/L 6-51 N [facility] Procedure Social History Code Duration Value Status Description Data Source(s ) Smoking 12/18/2020 12:00:00 AM EDT Patient has never smoked co mpleted Patient has never smoked [facility] Smoking 01/05/2020 07:46:00 AM EDT Denies Ever Smoked complete d Denies Ever Smoked [facility] Alcohol intake 12/24/2019 12:00:00 AM EDT No completed [facility] Smoking 12/24/2019 12:00:00 AM EDT Never smoker completed Never s moker [facility] Vital Signs ID Date Data Source UNK Name Value Range Interpretation Code Description Data Source(s) Body temperature 97.1 [degF] 97.1 [degF] [facility]) Forehead Body weight 272.00 [lb_av] 272.00 [lb_av] [facility] ([facility]) Heart rate 76 /min 76 /min [facility] Systolic blood pressure 144 mm[Hg] 144 mm[Hg] M [facility] ([facility]) L Arm, Sitting Diastolic blood pressure 102 mm[Hg] 102 mm[Hg] [facility]) L Arm, Sitting Respiratory rate 18 /min 18 /min [facility] ( [facility]) Body height 60 [in_i] 60 [in_i] [facility] 5'0" Body mass index (BMI) [Ratio] 53.1 kg/m2 53.1 k g/m2 [facility]) [place] body weight 100 [lb_av] 100 [lb_av] [facility] ([facility]) Oxygen saturation in Arterial blood by Pulse oximetry 99 % 99 % [facility]) Room Air Body height 152.4 cm 152.4 cm [facility] Respiratory rate 16 /min 16 /min [facility] ( [facility]) Diastolic blood pressure 84 mm[Hg] 84 mm[Hg] [facility]) L Arm, Lrg cuff Body height 152.4 cm 152.4 cm [facility] Body temperature 97.3 [degF] 97.3 [degF] [facility]) Body weight 275.00 [lb_av] 275.00 [lb_av] [facility] ([facility]) Heart rate 86 /min 86 /min [facility] Body mass index (BMI) [Ratio] 53.7 kg/m2 53.7 k g/m2 [facility]) Systolic blood pressure 126 mm[Hg] 126 mm[Hg] M [facility] ([facility]) L Arm, Lrg cuff Body height 60 [in_i] 60 [in_i] [facility] 5'0" [place] body weight 100 [lb_av] 100 [lb_av] [facility] ([facility]) Oxygen saturation in Arterial blood by Pulse oximetry 99 % 99 % [facility]) Room Air Body weight 271.00 [lb_av] 271.00 [lb_av] [facility] ([facility]) [place] body weight 100 [lb_av] 100 [lb_av] [facility] ([facility]) Oxygen saturation in Arterial blood by Pulse oximetry 96 % 96 % [facility]) Room Air Diastolic blood pressure 86 mm[Hg] 86 mm[Hg] [facility]) Respiratory rate 22 /min 22 /min [facility] ( [facility]) Body height 152.4 cm 152.4 cm [facility] Body temperature 98.2 [degF] 98.2 [degF] [facility]) Heart rate 91 /min 91 /min [facility] Systolic blood pressure 120 mm[Hg] 120 mm[Hg] M [facility] ([facility]) Body height 60 [in_i] 60 [in_i] [facility] 5'0" Body mass index (BMI) [Ratio] 52.9 kg/m2 52.9 k g/m2 [facility]) Body mass index (BMI) [Ratio] 81.0 kg/m2 81.0 k g/m2 [facility]) [place] body weight 100 [lb_av] 100 [lb_av] [facility]) Oxygen saturation in Arterial blood by Pulse oximetry 96 % 96 % [facility]) Room Air Systolic blood pressure 120 mm[Hg] 120 mm[Hg] M [facility] ([facility]) L Arm Diastolic blood pressure 86 mm[Hg] 86 mm[Hg] [facility]) L Arm Respiratory rate 22 /min 22 /min [facility] ( [facility]) Body height 48.5 [in_i] 48.5 [in_i] [facility] ([facility]) 4'0.50", with shoes Body temperature 98.2 [degF] 98.2 [degF] [facility]) Body weight 271.00 [lb_av] 271.00 [lb_av] [facility]) Heart rate 91 /min 91 /min [facility] Body height 123.2 cm 123.2 cm [facility] Heart rate 86 /min 86 /min [facility] Systolic blood pressure 126 mm[Hg] 126 mm[Hg] M [facility] ([facility]) Diastolic blood pressure 76 mm[Hg] 76 mm[Hg] [facility]) Respiratory rate 20 /min 20 /min [facility] ( [facility]) Oxygen saturation in Arterial blood by Pulse oximetry 97 % 97 % [facility]) Body temperature 97.0 [degF] 97.0 [degF] [facility]) Body weight 270.00 [lb_av] 270.00 [lb_av] [facility]) Body mass index (BMI) [Ratio] 52.5 kg/m2 52.5 k g/m2 [facility]) Body temperature 98.1 [degF] 98.1 [degF] [facility]) Forehead Body weight 269.00 [lb_av] 269.00 [lb_av] [facility]) Heart rate 100 /min 100 /min [facility] Systolic blood pressure 130 mm[Hg] 130 mm[Hg] M [facility] ([facility]) L Arm, Sitting Diastolic blood pressure 82 mm[Hg] 82 mm[Hg] [facility]) L Arm, Sitting Respiratory rate 17 /min 17 /min [facility] ( [facility]) Body height 60.00 [in_i] 60.00 [in_i] [facility] 5'0" [place] body weight 100 [lb_av] 100 [lb_av] [facility] ([facility]) Oxygen saturation in Arterial blood by Pulse oximetry 98 % 98 % [facility]) Room Air Body height 152.4 cm 152.4 cm [facility] Body temperature 97.5 [degF] 97.5 [degF] [facility]) forehead Body weight 270.00 [lb_av] 270.00 [lb_av] [facility]) Heart rate 90 /min 90 /min [facility] Systolic blood pressure 130 mm[Hg] 130 mm[Hg] M [facility] ([facility]) L Arm Diastolic blood pressure 90 mm[Hg] 90 mm[Hg] [facility]) L Arm Respiratory rate 15 /min 15 /min [facility] ( [facility]) Body height 60.00 [in_i] 60.00 [in_i] [facility] 5'0" Body mass index (BMI) [Ratio] 52.7 kg/m2 52.7 k g/m2 [facility]) [place] body weight 100 [lb_av] 100 [lb_av] [facility] ([facility]) Oxygen saturation in Arterial blood by Pulse oximetry 99 % 99 % [facility]) Body height 152.4 cm 152.4 cm [facility] Systolic blood pressure 148 mm[Hg] 148 mm[Hg] [facility] Diastolic blood pressure 92 mm[Hg] 92 mm[Hg] [facility] Heart rate 80 /min 80 /min [facility] Body temperature 36.67 Phan 36.67 Phan [facility] Respiratory rate 16 /min 16 /min [facility] Oxygen saturation in Arterial blood by Pulse oximetry 100 % 100 % [facility] Body height 154.9 cm 154.9 cm [facility] Body weight 118.389 kg 118.389 kg [facility] Body mass index (BMI) [Ratio] 49.32 kg/m2 49.32 kg/m2 [facility] Systolic blood pressure 122 mm[Hg] 122 mm[Hg] M [facility] ([facility]) L Arm Body height 152.4 cm 152.4 cm [facility] Body height 60.00 [in_i] 60.00 [in_i] [facility] 5'0" Body mass index (BMI) [Ratio] 53.1 kg/m2 53.1 k g/m2 [facility]) Diastolic blood pressure 88 mm[Hg] 88 mm[Hg] [facility]) L Arm [place] body weight 100 [lb_av] 100 [lb_av] [facility] ([facility]) Oxygen saturation in Arterial blood by Pulse oximetry 100 % 100 % [facility]) Room Air Body temperature 97.1 [degF] 97.1 [degF] [facility]) forehead Body weight 272.00 [lb_av] 272.00 [lb_av] [facility] ([facility]) Heart rate 83 /min 83 /min [facility] Respiratory rate 15 /min 15 /min [facility] ( [facility]) Oxygen saturation in Arterial blood by Pulse oximetry 97 % 97 % [facility]) Room Air Body mass index (BMI) [Ratio] 52.7 kg/m2 52.7 k g/m2 [facility]) [place] body weight 100 [lb_av] 100 [lb_av] [facility]) Body temperature 98.1 [degF] 98.1 [degF] [facility]) forehead Body weight 270.00 [lb_av] 270.00 [lb_av] [facility]) Heart rate 114 /min 114 /min [facility] Systolic blood pressure 122 mm[Hg] 122 mm[Hg] M [facility] ([facility]) L Arm Diastolic blood pressure 80 mm[Hg] 80 mm[Hg] [facility]) L Arm Respiratory rate 14 /min 14 /min [facility] ( [facility]) Body height 60.00 [in_i] 60.00 [in_i] [facility] 5'0" Body height 152.4 cm 152.4 cm [facility] Body temperature 97.9 [degF] 97.9 [degF] [facility]) forehead Body weight 270.00 [lb_av] 270.00 [lb_av] [facility] ([facility]) Heart rate 91 /min 91 /min [facility] Systolic blood pressure 120 mm[Hg] 120 mm[Hg] M [facility] ([facility]) L Arm Oxygen saturation in Arterial blood by Pulse oximetry 98 % 98 % [facility]) Room Air Body height 152.4 cm 152.4 cm [facility] Diastolic blood pressure 80 mm[Hg] 80 mm[Hg] [facility]) L Arm Respiratory rate 15 /min 15 /min [facility] ( [facility]) Body height 60.00 [in_i] 60.00 [in_i] [facility] 5'0" Body mass index (BMI) [Ratio] 52.7 kg/m2 52.7 k g/m2 [facility]) [place] body weight 100 [lb_av] 100 [lb_av] [facility] ([facility]) Systolic blood pressure 144 mm[Hg] 144 mm[Hg] [facility] Diastolic blood pressure 82 mm[Hg] 82 mm[Hg] [facility] Respiratory rate 18 /min 18 /min [facility] Heart rate 80 /min 80 /min [facility] Body temperature 36.22 Phan 36.22 Phan [facility] Body height 154.9 cm 154.9 cm [facility] Body weight 118.389 kg 118.389 kg [facility] Body mass index (BMI) [Ratio] 49.32 kg/m2 49.32 kg/m2 [facility] Oxygen saturation in Arterial blood by Pulse oximetry 99 % 99 % [facility] Systolic blood pressure 126 mm[Hg] 126 mm[Hg] [facility] Diastolic blood pressure 89 mm[Hg] 89 mm[Hg] [facility] Heart rate 83 /min 83 /min [facility] Body temperature 36.89 Phan 36.89 Phan [facility] Respiratory rate 18 /min 18 /min [facility] Body height 154.9 cm 154.9 cm [facility] Body weight 113.853 kg 113.853 kg [facility] Body mass index (BMI) [Ratio] 47.43 kg/m2 47.43 kg/m2 [facility] Oxygen saturation in Arterial blood by Pulse oximetry 100 % 100 % [facility] Systolic blood pressure 131 mm[Hg] 131 mm[Hg] [facility] Diastolic blood pressure 84 mm[Hg] 84 mm[Hg] [facility] Heart rate 99 /min 99 /min [facility] Body temperature 36.89 Phan 36.89 Phan [facility] Respiratory rate 18 /min 18 /min [facility] Body height 154.9 cm 154.9 cm [facility] Body weight 113.853 kg 113.853 kg [facility] Body mass index (BMI) [Ratio] 47.43 kg/m2 47.43 kg/m2 [facility] Oxygen saturation in Arterial blood by Pulse oximetry 98 % 98 % [facility] Systolic blood pressure 137 mm[Hg] Normal (applies t o non-numeric results) 137 mm[Hg] [facility] Diastolic blood pressure 86 mm[Hg] Normal (applies to non-numeric results) 86 mm[Hg] [facility] Body mass index (BMI) [Ratio] 49.1 kg/m2 No rmal (applies to non-numeric results) 49.1 kg/m2 [facility] Heart rate 104 min Normal (applies to non-numeric resul ts) 104 min [facility] Body height 154.8384 cm Normal (applies to non-numeric res ults) 154.8384 cm [facility] Deprecated Oxygen saturation in Capillary blood by Oximetry 98 % Normal (applies to non-numeric results) 98 % [facility] Respiratory rate 16 min Normal (applies to non-numeric results) 16 min [facility] Body temperature 36.9 phan Normal (applies to non-numeric results) 36.9 phan [facility] Body weight Measured 260 [lb_av] Normal (applies to n on-numeric results) 260 [lb_av] [facility] ID Date Data Source [id number] 12/12/2020 02:57:20 PM EDT [facility] al Name Value Range Interpretation Code Description Data Source(s) WEIGHT REC[facility] 125.25 [facility]G 125.25 [facility]94 [facility] 154.94 CM [facility] status [Interpretation] - Reported [facility] ID Date Data Source [id number] 12/19/2020 03:48:35 PM EDT [facility] al Name Value Range Interpretation Code Description Data Source(s) WEIGHT RECORDED 118.3 KG 118.3 KG [facility] spital Height 154.94 CM 154.94 CM [facility] ID Date Data Source [id number] 10/08/2020 07:06:06 PM EDT [facility] Name Value Range Interpretation Code Description Data Source(s) WEIGHT RECORDED 120 KG 120 KG [facility] Height 154.94 CM 154.94 CM [facility] status [Interpretation] - Reported [facility] ID Date Data Source [id number] 09/21/2020 11:16:52 AM EDT [facility] Name Value Range Interpretation Code Description Data Source(s) Height 154.94 CM 154.94 [facility] WEIGHT RECORDED 120 KG 120 KG [facility] ID Date Data Source [id number] 09/17/2020 05:12:07 PM EDT [facility] Name Value Range Interpretation Code Description Data Source(s) WEIGHT RECORDED 123.2 KG 123.2 KG [facility] Height 154.94 CM 154.94 CM [facility] ID Date Data Source [id number] 12/06/2020 08:15:08 PM EDT [facility] Name Value Range Interpretation Code Description Data Source(s) WEIGHT RECORDED 113.85 KG 113.85 KG [facility] Height 154.94 CM 154.94 CM [facility] ID Date Data Source [id number] 07/02/2020 12:38:13 PM EDT [facility] Name Value Range Interpretation Code Description Data Source(s) Chief complaint - Reported KIDNEY STONE PAIN KI DNEY STONE PAIN [facility] Chief complaint - Reported KIDNEY STONE PAIN KI DNEY STONE PAIN [facility] ID Date Data Source [id number] 07/25/2020 04:21:20 PM EDT [facility] Name Value Range Interpretation Code Description Data Source(s) WEIGHT RECORDED 117 KG 117 KG [facility] Height 154.94 CM 154.94 CM [facility] status [Interpretation] - Reported [facility] ID Date Data Source [id number] 06/30/2020 08:42:10 PM EDT [facility] Name Value Range Interpretation Code Description Data Source(s) WEIGHT RECORDED 119 KG 119 KG [facility] Height 154.94 CM 154.94 CM [facility] status [Interpretation] - Reported [facility] ID Date Data Source [id number] 06/20/2020 09:39:13 AM EDT [facility] Name Value Range Interpretation Code Description Data Source(s) WEIGHT RECORDED 120 KG 120 KG [facility] Height 154.94 CM 154.94 CM [facility] ID Date Data Source [id number] 04/10/2020 08:37:10 AM EST [facility] Name Value Range Interpretation Code Description Data Source(s) WEIGHT RECORDED 122 KG 122 KG [facility] Height 154.94 CM 154.94 CM [facility] ID Date Data Source [id number] 03/26/2020 12:14:50 PM EST [facility] Name Value Range Interpretation Code Description Data Source(s) WEIGHT RECORDED 118.63 KG 118.63 KG [facility] Height 154.94 CM 154.94 CM [facility] ID Date Data Source [id number] 03/22/2020 07:12:09 AM EST [facility] Name Value Range Interpretation Code Description Data Source(s) WEIGHT RECORDED 118 KG 118 KG [facility] Height 160.02 CM 160.02 CM [facility] status [Interpretation] - Reported [facility] ID Date Data Source [id number] 04/10/2020 02:09:14 PM EST [facility] Name Value Range Interpretation Code Description Data Source(s) WEIGHT RECORDED 118 KG 118 KG [facility] Height 154.94 CM 154.94 CM [facility] status [Interpretation] - Reported N [facility] ID Date Data Source [id number] 02/03/2020 12:52:54 PM EST [facility] Name Value Range Interpretation Code Description Data Source(s) WEIGHT RECORDED 118 KG 118 KG [facility] Height 154.94 CM 154.94 CM [facility] ID Date Data Source [id number] 02/02/2020 02:24:09 PM EST [facility] Name Value Range Interpretation Code Description Data Source(s) WEIGHT RECORDED 118 KG 118 KG [facility] Height 154.94 CM 154.94 CM [facility] ID Date Data Source [id number] 02/01/2020 06:33:07 AM EST [facility] Name Value Range Interpretation Code Description Data Source(s) WEIGHT RECORDED 118.6 KG 118.6 KG [facility] Height 154.94 CM 154.94 CM [facility] ID Date Data Source [id number] 05/03/2020 09:48:58 AM EST [facility] Name Value Range Interpretation Code Description Data Source(s) WEIGHT RECORDED 128 KG 128 KG [facility] Height 154.94 CM 154.94 CM [facility] status [Interpretation] - Reported [facility] ID Date Data Source [id number] 02/24/2020 08:28:36 AM EST [facility] Name Value Range Interpretation Code Description Data Source(s) WEIGHT RECORDED 118 KG 118 KG [facility] Height 154.94 CM 154.94 CM [facility] ID Date Data Source [id number] 02/01/2020 06:30:07 AM EST [facility] Name Value Range Interpretation Code Description Data Source(s) WEIGHT RECORDED 118.6 KG 118.6 KG [facility] Height 154.94 CM 154.94 CM [facility] status [Interpretation] - Reported [facility] ID Date Data Source [id number] 08/15/2020 04:21:10 PM EDT [facility] Name Value Range Interpretation Code Description Data Source(s) WEIGHT RECORDED 118.63 KG 118.63 KG [facility] Height 154.94 CM 154.94 CM [facility] status [Interpretation] - Reported [facility]
[2021-01-11 19:51] LABS: BASO % 0.3 % (0.0-1.0); EOS # 0.1 10^3/uL (0.0-0.5); EOS % 1.4 % (0.0-3.0); HEMATOCRIT 44.2 % (36.0-47.0); HEMOGLOBIN 14.6 g/dl (12.0-15.5); LYMPH # 3.3 10^3/uL (1.5-5.0); MEAN CORPUSCULAR HEMOGLOBIN 31.1 pg (27.0-33.0); MEAN CORPUSCULAR VOLUME 94.2 fl (80.0-96.0); MONO # 0.7 10^3/uL (0.0-0.8); MONO % 7.2 % (2.0-8.0); NEUTROPHILS # 5.7 10^3/uL (1.5-8.5); NEUTROPHILS % 57.6 % (36.0-66.0); PLATELET COUNT, AUTOMATED 316 10^3/uL (150-450); RED BLOOD COUNT 4.69 10^6/uL (4.00-5.40); WHITE BLOOD COUNT 9.9 10^3/uL (4.0-10.0)
[2021-01-11 20:30] LABS: ALBUMIN 3.9 GM/DL (3.2-5.2); ALT/SGPT 62 U/L (12-78); BILIRUBIN,DIRECT < 0.1 MG/DL (0.0-0.2); BILIRUBIN,TOTAL 0.4 MG/DL (0.2-1.0); BLOOD UREA NITROGEN 12 MG/DL (7-18); CARBON DIOXIDE LEVEL 26 MEQ/L (21-32); CHLORIDE LEVEL 106 MEQ/L (98-107); CREATININE FOR GFR 0.79 MG/DL (0.55-1.30); GLOMERULAR FILTRATION RATE > 60.0 (>60); GLUCOSE, FASTING 79 MG/DL (70-100); LIPASE 109 U/L (73-393); POTASSIUM SERUM 4.2 MEQ/L (3.5-5.1); SODIUM LEVEL 138 MEQ/L (136-145)
[2021-01-11 21:02] VITALS: BP 162/93
== END 2021-01-11 21:03 | disposition home or self-care (01) ==
LOC: M ED 13:57
DX: R31.9 Hematuria, unspecified (principal); R10.9 Unspecified abdominal pain; I10 Essential (primary) hypertension; J45.909 Unspecified asthma, uncomplicated; D68.2 Hereditary deficiency of other clotting factors; D50.9 Iron deficiency anemia, unspecified; Z86.711 Personal history of pulmonary embolism; Z87.09 Personal history of other diseases of the respiratory system; Z87.19 Personal history of other diseases of the digestive system; Z88.0 Allergy status to penicillin; Z88.8 Allergy status to other drugs, medicaments and biological substances; Z79.899 Other long term (current) drug therapy

== ENCOUNTER 2021-01-17 12:36 | Emergency (ER) | payer OTHER ==
[~2021-01-17] VITALS: Ht 154.9 cm; Wt 126.4 kg
[2021-01-17 12:37] VITALS: BP 135/93
[2021-01-17] MEDS ORDERED: MORPHINE 4 MG/ML 1ML VIAL/SYRINGE (J2270) IV ONE (18:05)
[2021-01-17 19:14] LABS: BASO % 0.4 % (0.0-1.0); EOS # 0.1 10^3/uL (0.0-0.5); EOS % 1.3 % (0.0-3.0); HEMATOCRIT 39.5 % (36.0-47.0); LYMPH % 34.9 % (24.0-44.0); MEAN CORPUSCULAR HEMOGLOBIN 31.1 pg (27.0-33.0); MEAN CORPUSCULAR HGB CONC 32.9 g/dl (32.0-36.5); MEAN CORPUSCULAR VOLUME 94.5 fl (80.0-96.0); MONO # 0.6 10^3/uL (0.0-0.8); MONO % 6.8 % (2.0-8.0); NEUTROPHILS # 4.8 10^3/uL (1.5-8.5); NEUTROPHILS % 55.8 % (36.0-66.0); PLATELET COUNT, AUTOMATED 292 10^3/uL (150-450); RED BLOOD COUNT 4.18 10^6/uL (4.00-5.40); WHITE BLOOD COUNT 8.6 10^3/uL (4.0-10.0)
[2021-01-17 19:37] LABS: ALBUMIN 3.5 GM/DL (3.2-5.2); ALT/SGPT 49 U/L (12-78); BILIRUBIN,DIRECT < 0.1 MG/DL (0.0-0.2); BILIRUBIN,TOTAL 0.3 MG/DL (0.2-1.0); LIPASE 93 U/L (73-393)
[2021-01-17] MEDS ORDERED: PERCOCET 5MG/325MG TAB PO ONE (20:15)
--- NOTE | 2021-01-17 20:52 | REPVR ---
PROCEDURE INFORMATION: Exam: CT Abdomen And Pelvis Without Contrast Exam date and time: 01/17/2021 7:46 PM Age: 35 years old Clinical indication: Abdominal pain; Flank; Left; Additional info: Flank pain/hx kidney stones/ left TECHNIQUE: Imaging protocol: Computed tomography of the abdomen and pelvis without contrast. Radiation optimization: All CT scans at this facility use at least one of these dose optimization techniques: automated exposure control; mA and/or kV adjustment per patient size (includes targeted exams where dose is matched to clinical indication); or iterative reconstruction. COMPARISON: CT ABD PELVIS W/O CONTRAST 01/11/2021 5:23 PM FINDINGS: Liver: There is fatty infiltration of the liver. Gallbladder and bile ducts: The gallbladder is surgically absent. Pancreas: Normal. No ductal dilation. Spleen: Normal. No splenomegaly. Adrenal glands: Normal. No mass. Kidneys and ureters: Normal. No hydronephrosis. Stomach and bowel: There is diverticulosis of the left colon. Appendix: The appendix is surgically absent. Intraperitoneal space: No free air. No significant fluid collection. Vasculature: No abdominal aortic aneurysm. Lymph nodes: No enlarged lymph nodes. Urinary bladder: Unremarkable as visualized. Reproductive: Unremarkable as visualized. Bones/joints: There are some degenerative changes of the spine. Soft tissues: Unremarkable. IMPRESSION: 1. There is no renal or ureteral calculus. 2. Hepatic steatosis. Electronically signed by: Sameer Oliver On 01/17/2021 20:52:20 PM
== END 2021-01-17 21:32 | disposition home or self-care (01) ==
LOC: M ED 12:36
DX: R31.9 Hematuria, unspecified (principal); R10.9 Unspecified abdominal pain; K76.0 Fatty (change of) liver, not elsewhere classified; D68.4 Acquired coagulation factor deficiency; Z79.01 Long term (current) use of anticoagulants; Z79.899 Other long term (current) drug therapy; Z88.0 Allergy status to penicillin; Z88.8 Allergy status to other drugs, medicaments and biological substances; Z87.19 Personal history of other diseases of the digestive system; Z87.442 Personal history of urinary calculi; Z87.42 Personal history of other diseases of the female genital tract; Z86.711 Personal history of pulmonary embolism; Z98.890 Other specified postprocedural states
CPT/HCPCS: 36415; 74176; 80047; 80076; 81001; 83690; 84702; 85025; 87086; 96374; 99284; J2270; U0002

== ENCOUNTER 2021-02-02 09:15 | Emergency (ER) | payer OTHER ==
[~2021-02-02] VITALS: Ht 154.9 cm; Wt 127.0 kg
--- OUTSIDE RECORDS SUMMARY | 2021-02-02 09:24 | CCD | Continuity of Care Document ---
Author Author Isidro MARTINEZ PAOdiliaC Organization Unknown Address [address] [place] [address] Phone [phone] Care Team Providers Care Front Counter Clerk Name Role Phone Kemal Villarreal DO AUTM [phone] Jay Bush AUTM [phone] [facility] AUTM [phone] Problems Active Problems Provider Date Drug seeking [...] Patient has never smoked Smoking Status Reviewed: 02/01/21 Patient has never smoked Allergies and adverse reactions Active Allergies Criticality Reaction | Severity Comments Date Cyclobenzaprine Unable to assess criticality rash 02/25/2013 Penicillin Unable to assess criticality rash rash 08/27/2012 NSAIDS Unable to assess criticality Taking Loven ox 06/04/2020 Medications Active Medications SIG Qnty Indications Ordering Provide r Date Chlorhexidine Gluconate 0.12% Solu tion 15ml swish/spit twice a day - use for 30 seconds 118ml K05.00 Heather Martinez PA-C 02/01/2021 Clindamycin HCL 150mg Capsules 1 by mouth twice a day 30caps K05.00 Michelle VerduzcoO. 01/28/2021 Hydrocodone Bitartrate/Acetaminophen 5-325mg Tablets take one tablet, orally, every 12- 24 ho urs, as needed, for pain Must limit use 14tabs K05.00 Michelle VerduzcoOMark 01/28/2021 Cetirizine HCL 10mg Tablets 1 by mouth every day 30tabs J31.0 Kemal Villarreal D.O. 07/26/2020 Lovenox 120mg/0.8ML Solution inject 0.8 milliliters sc twice a day 48ml Z79.01 Michelle VerduzcoOMark History Medications Tramadol HCL 50mg Tablets take 1 tablet once a day prn. This is a one time script 5tabs M54.50 Heather Martinez PA-C 12/18/2020 - 01/28/2021 Topiramate 50mg Tablets 1 by mouth twice a day 60tabs M54.5 Michelle VerduzcoO. 12/10/2020 - 12/18/2020 Lyrica 75mg Capsules 1 by mouth twice a day as needed 30caps M54.17 Michelle VerduzcoO. 12/10/2020 - 01/28/2021 M54.5 Topiramate 25mg Tablets 1 by mouth twice a day 60tabs M54.5 Michelle VerduzcoO. 11/01/2020 - 12/10/2020 Tizanidine HCL 4mg Capsules one by mouth every night prn 10caps M54.5 Michelle VerduzcoO. 10/18/2020 - 11/01/2020 Sulfamethoxazole/Trimethoprim DS 800-160mg Tablets 1 by mouth twice a day N39.0 Michelle VerduzcoOMark 09/13/2020 - 09/13/2020 Medications Administered in Office Medication SIG Qnty Indications Ordering Provider Date Rocephin (Ceftriaxone) 1 Gram Inj ection Heather Martinez PA-C 06/04/2020 Immunizations CPT Code Status Date Vaccine Reaction Lot # [id number] Given 12/18/2020 Fluzone Quadrivalent 0.5 mL Pre-Filled 6 Mo & Older No Reaction [id number] Given 09/13/2020 MMR Virus Immunization No Reaction S [id number] Given 08/07/2020 MMR Virus Immunization No Reaction s [id number] Given 06/03/2013 Fluzone Trivalent Immunization 23562 Given 03/16/2007 Tetanus Toxoid Vital Signs Date Vital Result Comment 02/01/2021 9:04am Body Temperature 96.5 F Forehead Weight 261.00 lb Stated by Pt Heart Rate 81 /min BP Systolic 124 mmHg BP Diastolic 80 mmHg Respiratory Rate 16 /min Height 60 inches 5'0" BMI (Body Mass Index) 51.0 kg/m2 Ralph Body Weight 100 lb O2 % BldC Oximetry 96 % Room Air Height in cm's 152.4 cm 12/18/2020 12:45pm Body Temperature 97.1 F Forehead Weight 272.00 lb Heart Rate 76 /min BP Systolic 144 mmHg L Arm, Sitting BP Diastolic 102 mmHg L Arm, Sitting Respiratory Rate 18 /min Height 60 inches 5'0" BMI (Body Mass Index) 53.1 kg/m2 Ralph Body Weight 100 lb O2 % BldC Oximetry 99 % Room Air Height in cm's 152.4 cm Results Test Acquired Date Facility Test Result H/L Range Note Istat Chem8+ Panel 01/17/2021 [facility] iSTAT HCT 39.0 % Normal 38.0-51.0 iSTAT Glucose 85 mg/dL Normal 70-105 iSTAT Sodium 140 mEq/L Normal 136-145 iSTAT Potassium 3.8 mEq/L Normal 3.5-5.1 iSTAT CA++ 4.8 mg/dL Normal 4.5-5.3 iSTAT Chloride 105 mEq/L Normal 98-109 iSTAT Co2 24.0 MM/L Normal 23.0-27.0 iSTAT BUN 13 mg/dL Normal 8-26 iSTAT Creatinine 0.7 mg/dL Normal 0.6-1.3 CBC With Differential 01/17/2021 [facility] White Blood Count 8.6 10 Normal 4.0-10.0 Red Blood Count 4.18 10 Normal 4.00-5.40 Hemoglobin 13.0 g/dL Normal 12.0-15.5 Hematocrit 39.5 % Normal 36.0-47.0 Mean Corpuscular Volume 94.5 fl Normal 80.0-96.0 Mean Corpuscular Hemoglobin 31.1 pg Normal 27.0-33.0 Mean Corpuscular HGB Conc 32.9 g/dL Normal 32.0-36.5 Red Cell Distribution Width 12.7 % Normal 11.5-14.5 Platelet Count, Automated 292 10 Normal 150-450 Neutrophils % 55.8 % Normal 36.0-66.0 Lymph % 34.9 % Normal 24.0-44.0 [place] % 6.8 % Normal 2.0-8.0 Eos % 1.3 % Normal 0.0-3.0 Baso % 0.4 % Normal 0.0-1.0 Immature Granulocyte % 0.8 % Normal 0-3.0 Nucleated Red Blood Cell % 0.0 % Normal 0-0 Neutrophils # 4.8 10 Normal 1.5-8.5 Lymph # 3.0 10 Normal 1.5-5.0 [place] # 0.6 10 Normal 0.0-0.8 Eos # 0.1 10 Normal 0.0-0.5 Baso # 0.0 10 Normal 0.0-0.2 Liver Profile 01/17/2021 [facility] Ast/Sgot 33 U/L Normal 7-37 Alt/SGPT 49 U/L Normal 12-78 Alkaline Phosphatase 106 U/L Normal 45-117 Bilirubin,Total 0.3 mg/dL Normal 0.2-1.0 Bilirubin,Direct < 0.1 mg/dL Normal 0.0-0.2 Total Protein 7.0 GM/DL Normal 6.4-8.2 Albumin 3.5 GM/DL Normal 3.2-5.2 Albumin/Globulin Ratio 1.0 Low 1.2-2.2 Laboratory test finding 01/17/2021 [facility] Lipase 93 U/L Normal 73-393 Coronavirus 2019 Nasopharygeal <pending> Sars Covid-19 Amplification NEGATIVE Normal Negative 1 Laboratory test finding 01/17/2021 [facility] iSTAT B-hCG < 5.0 Normal 2 Liver Profile 12/24/2020 [facility] Ast/Sgot 43 U/L High 7-37 Alt/SGPT 56 U/L Normal 12-78 Alkaline Phosphatase 114 U/L Normal 45-117 Bilirubin,Total 0.3 mg/dL Normal 0.2-1.0 Bilirubin,Direct 0.1 mg/dL Normal 0.0-0.2 Total Protein 7.3 GM/DL Normal 6.4-8.2 Albumin 3.6 GM/DL Normal 3.2-5.2 Albumin/Globulin Ratio 1.0 Low 1.2-2.2 Reflex Urine Culture 12/24/2020 [facility] Reflex Urine Culture FULL REPORT IN L <SEE NOTE> Normal 3 Ua W/ Reflex To Culture 12/24/2020 [facility] Appearance, Urine RFX CLOUDY High Clear Color, Urine RFX YELLOW Normal Yellow PH,Urine RFX 5.0 units Normal 5.0-9.0 Specific [place] Ur Auto RFX 1.015 Normal 1.002-1.035 Protein, Urine Auto RFX 2+ mg/dL High Negative Glucose, Urine (Ua) Auto RFX NEGATIVE mg/dL Normal Negative Ketone, Urine Auto RFX NEGATIVE mg/dL Normal Negative Urobilinogen, Urine Auto RFX 0.2 mg/dL Normal 0.0-2.0 Bilirubin, Urine Auto RFX NEGATIVE Normal Negative Nitrite, Urine Auto RFX NEGATIVE Normal Negative Leukocyte Esterase Ur Auto RFX 2+ High Negative Blood, Urine Blood RFX 3+ High Negative WBC, Urine Auto RFX 31 /HPF High 0-3 RBC, Urine Auto RFX TNTC /HPF High 0-3 Bacteria, Urine Auto RFX 1+ High Negative Squam Epithelial Cell Ur Aurfx 15 /HPF Normal 0-6 Mucus, Urine RFX SMALL Normal Negative Hyaline Cast, Urine Auto RFX 0 /LPF Normal 0-1 Laboratory test finding 12/24/2020 [facility] Lipase 101 U/L Normal 73-393 CBC With Differential 12/24/2020 [facility] White Blood Count 7.6 10 Normal 4.0-10.0 Red Blood Count 4.30 10 Normal 4.00-5.40 Hemoglobin 13.5 g/dL Normal 12.0-15.5 Hematocrit 40.6 % Normal 36.0-47.0 Mean Corpuscular Volume 94.4 fl Normal 80.0-96.0 Mean Corpuscular Hemoglobin 31.4 pg Normal 27.0-33.0 Mean Corpuscular HGB Conc 33.3 g/dL Normal 32.0-36.5 Red Cell Distribution Width 12.5 % Normal 11.5-14.5 Platelet Count, Automated 308 10 Normal 150-450 Neutrophils % 58.7 % Normal 36.0-66.0 Lymph % 32.5 % Normal 24.0-44.0 [place] % 6.3 % Normal 2.0-8.0 Eos % 1.5 % Normal 0.0-3.0 Baso % 0.3 % Normal 0.0-1.0 Immature Granulocyte % 0.7 % Normal 0-3.0 Nucleated Red Blood Cell % 0.0 % Normal 0-0 Neutrophils # 4.4 10 Normal 1.5-8.5 Lymph # 2.5 10 Normal 1.5-5.0 [place] # 0.5 10 Normal 0.0-0.8 Eos # 0.1 10 Normal 0.0-0.5 Baso # 0.0 10 Normal 0.0-0.2 Istat Chem8+ Panel 12/24/2020 [facility] iSTAT HCT 40.0 % Normal 38.0-51.0 iSTAT Glucose 83 mg/dL Normal 70-105 iSTAT Sodium 140 mEq/L Normal 136-145 iSTAT Potassium 3.5 mEq/L Normal 3.5-5.1 iSTAT CA++ 4.6 mg/dL Normal 4.5-5.3 iSTAT Chloride 103 mEq/L Normal 98-109 iSTAT Co2 25.0 MM/L Normal 23.0-27.0 iSTAT BUN 12 mg/dL Normal 8-26 iSTAT Creatinine 0.8 mg/dL Normal 0.6-1.3 Laboratory test finding 12/24/2020 [facility] iSTAT B-hCG < 5.0 Normal 4 Urinalysis 12/03/2020 [facility] [phone] Color,Ur RED Abnormal Yellow Appearance,Ur CLOUDY Abnormal Clear PH,Ur 6.0 5.0-8.0 Specific [place],Ur 1.014 Normal 1.002-1.035 Protein,Ur 100 mg/dL Abnormal [...] 11/01/2020 [facility] [address] [place], [place] [id number] [phone] CR Spine Lumbosac Complete W/Bend <pending> Laboratory test finding 10/30/2020 [facility] Lipase 105 U/L Normal 73-393 Basic Metabolic Profile 10/30/2020 [facility] Glucose, Fasting 91 mg/dL Normal 70-100 Blood Urea Nitrogen 17 mg/dL Normal 7-18 Creatinine For GFR 0.74 mg/dL Normal 0.55-1.30 Glomerular Filtration Rate > 60.0 Normal >60 5 Sodium Level 139 mEq/L Normal 136-145 Potassium Serum 3.8 mEq/L Normal 3.5-5.1 Chloride Level 108 mEq/L High 98-107 Carbon Dioxide Level 26 mEq/L Normal 21-32 Anion Gap 5 mEq/L Low 8-16 Calcium Level 8.9 mg/dL Normal 8.5-10.1 CBC With Differential 10/30/2020 [facility] White Blood Count 10.1 10 High [...] 36.0-66.0 Lymph % 23.8 % Low 24.0-44.0 [place] % 5.9 % Normal 2.0-8.0 Eos % 0.8 % Normal 0.0-3.0 Baso % 0.4 % Normal 0.0-1.0 Immature Granulocyte % 0.8 % Normal 0-3.0 Nucleated Red Blood Cell % 0.0 % Normal 0-0 Neutrophils # 6.9 10 Normal 1.5-8.5 Lymph # 2.4 10 Normal 1.5-5.0 [place] # 0.6 10 Normal 0.0-0.8 Eos # 0.1 10 Normal 0.0-0.5 Baso # 0.0 10 Normal 0.0-0.2 Laboratory test finding 10/30/2020 [facility] iSTAT B-hCG < 5.0 Normal 6 Liver Profile 10/30/2020 [facility] Ast/Sgot 40 U/L High 7-37 Alt/SGPT 58 U/L Normal 12-78 Alkaline Phosphatase 112 U/L Normal 45-117 Bilirubin,Total 0.3 mg/dL Normal 0.2-1.0 Bilirubin,Direct 0.1 mg/dL Normal 0.0-0.2 Total Protein 7.4 GM/DL Normal 6.4-8.2 Albumin 3.6 GM/DL Normal 3.2-5.2 Albumin/Globulin Ratio 0.9 Low 1.2-2.2 Basic Metabolic Panel 10/06/2020 [facility] [phone] Sodium 139 mEq/L Normal 135-145 Potassium 3.8 mEq/L Normal 3.5-5.3 Chloride 108 mEq/L Normal 94-110 Carbon Dioxide 24 mEq/L Normal 22-33 Anion Gap 11 Normal 5-16 Blood Urea Nitro 14 mg/dL Normal 7-25 Creatinine 0.8 mg/dL Normal 0.6-1.4 GFR 81.2 mL/min 7 BUN/Creat Ratio 17 Normal 8-36 Glucose 82 mg/dL Normal 70-100 CA 9.6 mg/dL Normal 8.7-10.5 Laboratory test finding 10/06/2020 [facility] [phone] Glycosylated Hgba1c 4.9 % Normal 4.1-6.5 Laboratory test finding 10/06/2020 [facility] [phone] No Urine Received From Patient NO URINE RECEIVE <SEE N OTE> 8 Basic Metabolic Profile 09/26/2020 [facility] Glucose, Fasting 101 mg/dL High 70-100 Blood Urea Nitrogen 13 mg/dL Normal 7-18 Creatinine For GFR 0.72 mg/dL Normal 0.55-1.30 Glomerular Filtration Rate > 60.0 Normal >60 9 Sodium Level 140 mEq/L Normal 136-145 Potassium Serum 4.3 mEq/L Normal 3.5-5.1 Chloride Level 108 mEq/L High 98-107 Carbon Dioxide Level 23 mEq/L Normal 21-32 Anion Gap 9 mEq/L Normal 8-16 Calcium Level 9.0 mg/dL Normal 8.5-10.1 Reflex Urine Culture 09/26/2020 [facility] Reflex Urine Culture FULL REPORT IN L <SEE NOTE> Normal 10 Ua W/ Reflex To Culture 09/26/2020 [facility] Appearance, Urine RFX CLOUDY High Clear Color, Urine RFX YELLOW Normal Yellow PH,Urine RFX 6.0 units Normal 5.0-9.0 Specific [place] Ur Auto RFX 1.021 Normal 1.002-1.035 Protein, [...] Urine Auto RFX 0 /LPF Normal 0-1 Laboratory test finding 09/26/2020 [facility] Lipase 100 U/L Normal 73-393 HCG Serum Qualitative NEGATIVE Normal Negative Liver Profile 09/26/2020 [facility] Ast/Sgot 56 U/L High 7-37 Alt/SGPT 65 U/L Normal 12-78 Alkaline Phosphatase 110 U/L Normal 45-117 Bilirubin,Total 0.3 mg/dL Normal 0.2-1.0 Bilirubin,Direct < 0.1 mg/dL Normal 0.0-0.2 Total Protein 7.2 GM/DL Normal 6.4-8.2 Albumin 3.6 GM/DL Normal 3.2-5.2 Albumin/Globulin Ratio 1.0 Low 1.2-2.2 Laboratory test finding 09/26/2020 [facility] Partial Thromboplastin Time 23.5 seconds Low 24.2-38.5 Prothrombin Time/Inr 09/26/2020 [facility] Prothrombin Time 12.3 seconds Normal 12.5-14.3 Inr 0.90 Normal 11 CBC With Differential 09/26/2020 [facility] White Blood Count 6.6 10 Normal [...] 36.0-66.0 Lymph % 30.3 % Normal 24.0-44.0 [place] % 7.5 % Normal 2.0-8.0 Eos % 1.2 % Normal 0.0-3.0 Baso % 0.5 % Normal 0.0-1.0 Immature Granulocyte % 0.8 % Normal 0-3.0 Nucleated Red Blood Cell % 0.0 % Normal 0-0 Neutrophils # 4.0 10 Normal 1.5-8.5 Lymph # 2.0 10 Normal 1.5-5.0 [place] # 0.5 10 Normal 0.0-0.8 Eos # 0.1 10 Normal 0.0-0.5 Baso # 0.0 10 Normal 0.0-0.2 Istat Chem8+ Panel 09/05/2020 [facility] iSTAT HCT 36.0 % Low 38.0-51.0 iSTAT Glucose 88 mg/dL Normal 70-105 iSTAT Sodium 139 mEq/L Normal 136-145 iSTAT Potassium 4.0 mEq/L Normal 3.5-5.1 iSTAT CA++ 4.8 mg/dL Normal 4.5-5.3 iSTAT Chloride 103 mEq/L Normal 98-109 iSTAT Co2 26.0 MM/L Normal 23.0-27.0 iSTAT BUN 12 mg/dL Normal 8-26 iSTAT Creatinine 0.6 mg/dL Normal 0.6-1.3 Laboratory test finding 09/05/2020 [facility] iSTAT B-hCG < 5.0 Normal 12 Laboratory test finding 09/05/2020 [facility] iSTAT B-hCG < 5.0 Normal 13 Istat Chem8+ Panel 09/05/2020 [facility] iSTAT HCT 39.0 % Normal 38.0-51.0 iSTAT Glucose 119 mg/dL High 70-105 iSTAT Sodium 139 mEq/L Normal 136-145 iSTAT Potassium 4.0 mEq/L Normal 3.5-5.1 iSTAT CA++ 5.0 mg/dL Normal 4.5-5.3 iSTAT Chloride 100 mEq/L Normal 98-109 iSTAT Co2 25.0 MM/L Normal 23.0-27.0 iSTAT BUN 13 mg/dL Normal 8-26 iSTAT Creatinine 0.6 mg/dL Normal 0.6-1.3 1 A false negative result may occur if a specimen is improperly collected, transported or handled. False negative results may also occur if inadequate numbers of organisms are present in the specimen. As with any molecular test, mutations within the target regions of Xpert Xpress SARS-CoV-2 could affect primer and/or probe binding resulting in failure to detect the presence of virus. This test cannot rule out diseases caused by other bacterial or viral pathogens. DISCLAIMER: Testing was performed using the [employer] SARS-CoV-2 test. This test was developed and its performance characteristics determined by [employer]. This test has not been FDA cleared or approved. This test has been authorized by FDA under an Emergency Use Authorization (EUA). This test is only authorized for the duration of time the declaration that circumstances exist justifying the authorization of the emergency use of in vitro diagnostic tests for detection of SARS-CoV-2 virus and/or diagnosis of COVID-19 infection under section 564(b)(1) of the Act, 21 U.S.C. 360bbb-3(b)(1), unless the authorization is terminated or revoked sooner. 2 QUANTITATIVE RESULT QUALITATIVE INTERPRETATION <5.0 IU/L NEGATIVE 5.0 - 25.0 IU/L INDETER MINATE >25.0 IU/L POSITIVE 3 FULL REPORT IN LAB NOTES (eC W and Medmaria[facility]ose). SPECIMEN APPEARS CONTAMINATED 4 QUANTITATIVE RESULT QUALITATIVE INTERPRETATION <5.0 IU/L NEGATIVE 5.0 - 25.0 IU/L INDETER MINATE >25.0 IU/L POSITIVE 5 Units are mL/min/1.73 m2 Chronic Kidney Disease Staging per NKF: Stage I & II GFR >=60 Normal to Mildly Decreased Stage III GFR 30-59 Moderately Decreased Stage IV GFR 15-29 Severely Decreased Stage V GFR <15 Very Little GFR Left ESRD GFR <15 on STORE KEEPER 6 QUANTITATIVE RESULT QUALITATIVE INTERPRETATION <5.0 IU/L NEGATIVE 5.0 - 25.0 IU/L INDETER MINATE >25.0 IU/L POSITIVE 7 Stage G2 - Mildly decreased kidney function The GFR is an estimate of the Glomerular Filtration Rate. It is an aid to assess a patient's renal function. It is not a conclusive diagnosis of kidney disease. GFR normal is >=90 The MDRD GFR calculation is considered valid between the ages of 18 and 75 years only. 8 NO URINE RECEIVED Patient informed to return with specimen. 9 Units are mL/min/1.73 m2 Chronic Kidney Disease Staging per NKF: Stage I & II GFR >=60 Normal to Mildly Decreased Stage III GFR 30-59 Moderately Decreased Stage IV GFR 15-29 Severely Decreased Stage V GFR <15 Very Little GFR Left ESRD GFR <15 on STORE KEEPER 10 FULL REPORT IN LAB NOTES (eC W and Medent). SPECIMEN APPEARS CONTAMINATED 11 THERAPUTIC HUMAN INR VALUES INDICATIONS NORMAL RANGES PROPHYLAXIS/TREATMENT OF: VENOUS THROMBOSIS 2.0-3.0 PULMONARY EMBOLISM 2.0-3.0 PREVENTION OF SYSTEMIC EMBOLISM FROM: TISSUE HEART VALVES 2.0-3.0 ACUTE MYOCARDIAL INFARCTION 2.0-3.0 VALVULAR HEART DISEASE 2.0-3.0 ATRIAL FIBRILLATION 2.0-3.0 MECHANICAL VALVES(HIGH RISK) 2.5-3.5 RECURRENT MYOCARDIAL INFARCTION 2.5-3.5 12 QUANTITATIVE RESULT QUALITATIVE INTERPRETATION <5.0 IU/L NEGATIVE 5.0 - 25.0 IU/L INDETER MINATE >25.0 IU/L POSITIVE 13 QUANTITATIVE RESULT QUALITATIVE INTERPRETATION <5.0 IU/L NEGATIVE 5.0 - 25.0 IU/L INDETER MINATE >25.0 IU/L POSITIVE Procedures Date Code Description Status 01/28/2021 42626 Office/Outpatient Established Lo w MDM 20-29 Min Completed 12/18/2020 80996 Office/Outpatient Established Lo w MDM 20-29 Min Completed 12/18/2020 04839 Brief Emotional/Beha v Assessment W/ Scoring Doc Per Standard Inst Completed 12/18/2020 [id number] Depression Screening Completed 12/10/2020 48819 Office/Outpatient Established Lo w MDM 20-29 Min Completed 11/01/2020 58267 Office/Outpatient Established Mo d MDM 30-39 Min Completed 10/18/2020 60824 Office/Outpatient Established Lo w MDM 20-29 Min Completed 09/13/2020 30340 Preventive Visit Est 18-39 Yrs C ompleted 09/13/2020 68572 Office/Outpatient Established Mo d MDM 30-39 Min Completed 09/13/2020 86410 Visual Screening Test Completed 09/13/2020 49851 Electrocardiogram Complete Compl eted 09/13/2020 94497 Screening Hearing Test Completed 08/10/2020 29309 Office/Outpatient Established Lo w MDM 20-29 Min Completed 06/04/2020 [id number] Depression Screening Completed Medical Devices Description No Information Available Encounters Type Date Location Provider Dx Diagnosis Office Visit 01/28/2021 5:45p [facility] Kemal Villarreal D.O. K05.00 Acute gingivitis, plaque ind uced M54.50 Low back pain, unspecified [facility] M[facility].50 Low back pain, unspecified Z13.31 Encounter for screening for depression Z23 Encounter for immunization Office Visit 12/10/2020 7:30p [facility] Kemal Villarreal D.O. M54.5 Low back pain R31.29 Other microscopic hematuria Z91.19 Patient's noncompliance w ot h medical treatment and regimen Office Visit 11/01/2020 11:50a [facility] Law[facility] Villarreal D.O. E16.2 Hypoglycemia, unspecified M54.5 Low back pain E66.01 Morbid (severe) obesity due to excess calories Z68.43 Body mass index [BMI] 50.0-5 9.9, adult Office Visit 10/18/2020 7:00p [facility] Villarreal D.O. M54.5 Low back pain R53.83 Other fatigue Office Visit 09/13/2020 9:00a [facility] Villarreal D.O. Z00.00 Encntr for general adult med ical exam w/o abnormal findings E66.01 Morbid (severe) obesity due to excess calories Z23 Encounter for immunization Z68.43 Body mass index [BMI] 50.0-5 9.9, adult R53.83 Other fatigue Office Visit 08/10/2020 6:30p [facility] Villarreal D.O. D50.9 Iron deficiency anemia, unsp ecified M54.5 Low back pain Assessments Date Code Description Provider 02/01/2021 K05.00 Acute gingivitis, plaque induced Heather Martinez PA-C 01/28/2021 K05.00 Acute gingivitis, plaque induced Isaac Vedruzco.OMark 01/28/2021 M54.50 Low back pain, unspecified Isaac Verduzco.OMark 12/18/2020 M54.50 Low back pain, unspecified Heather Martinez PA-C 12/18/2020 Z13.31 Encounter for screening for depr ession Heather Martinez PA-C 12/18/2020 Z23 Encounter for immunization Heather Martinez PA-C 12/10/2020 M54.5 Low back pain Isaca Verduzco. OMark 12/10/2020 R31.29 Other microscopic hematuria Isaac Verduzco.OMark 12/10/2020 Z91.19 Patient's noncomplia nce with other medical treatment and regimen Michelle VerduzcoO. 11/01/2020 E16.2 Hypoglycemia, unspecified Isaac Verduzco.OMark 11/01/2020 M54.5 Low back pain Michelle Verduzco OMark 11/01/2020 E66.01 Morbid (severe) obesity due to e xcess calories Isaac Verduzco.OMark 11/01/2020 Z68.43 Body mass index [BMI] 50.0-59.9, adult Isaac Verduzco.OMark 10/18/2020 M54.5 Low back pain Isaac Verduzco. OMark 10/18/2020 R53.83 Other fatigue Isaac Verduzco. OMark 09/13/2020 Z00.00 Encounter for genera l adult medical examination without abnormal findings Michelle VerduzcoOMark 09/13/2020 E66.01 Morbid (severe) obesity due to e xcess calories Isaac Verduzco.OMark 09/13/2020 Z23 Encounter for immunization Michelle VerduzcoOMark 09/13/2020 Z68.43 Body mass index [BMI] 50.0-59.9, adult Isaac Verduzco.OMark 09/13/2020 R53.83 Other fatigue Isaac Verduzco. OMark 08/10/2020 D50.9 Iron deficiency anemia, unspecif ied Michelle VerduzcoOMark 08/10/2020 M54.5 Low back pain Michelle Verduzco. 08/07/2020 Z23 Encounter for immunization Kemal Villarreal D.O. 08/07/2020 Z23 Encounter for immunization Nurse Loc X1 Plan of Treatment Future Appointment(s):* 03/01/2021 10:45 am - Kemal Villarreal D.O. at [facility] 02/01/2021 - Heather Martinez PA-C* K05.00 Acute gingivitis, plaque induced* New Medication:* Chlorhexidine Gluconate 0.12 % - 15ml swish/spit twice a day - use for 30 seconds * All Goals 02/01/2021 - Heather Martinez PA-C* All * Call office if any questions or concerns. Functional Status Description No Information Available Mental Status Description No Information Available Referrals Refer to Reason for Referral Status Appt Date [facility] Dear Doctor: To whom this m ay concern: I am referring this patient due to low back pain. With this referral you will also recieve the followin. Problem List; 2. Medication List; 3. Allergy List; 4. Last labs; 5. Last Progress Note. If you do not recieve the above, please contact our Dx Board Operator. As always, we thank you for the great service you provide to our patients. Sincerely, Kemal Villarreal DO [address] [address] [phone] [place] [facility] Dear Doctor, This patient i [...] this patient. Kemal Villarreal D.O. [facility] [employer] Closed [facility] [place] [address] [phone]
--- OUTSIDE RECORDS SUMMARY | 2021-02-02 09:24 | CCD | Continuity of Care Document ---
Author Author [facility] Organization [facility] Address [address] [place] [address] Allergies and Intolerances Code Code System Allergy Substance Type Reaction Severity Start Da te End Date Status 20231022 RXNorm Motrin Drug allergy (disorder) on blood thinner Unknown Active 7984 RXNorm Penicillin V Drug allergy (disorder) Rash Mild 12/1983 Active Medications RxNorm Medication Dose Route Instructions Start Date End Date Stat us 605077 0.8 ML enoxaparin sodium 150 MG/ML Prefilled Syringe 1 20 mg subcutaneous subcutaneously every 12 hours (12/19/20 @ 30ds) Active cetirizine 10 mg oral orally daily (12/19/20 @ 30ds) Active Multivitamins Tablet 1 tab oral orally daily Active 661384 0.8 ML enoxaparin sodium 150 MG/ML Prefilled Syringe 1 20 mg subcutaneous subcutaneously every 12 hours (*11/01/20 x30 ds) Completed cetirizine 10 mg oral orally daily (*11/01/20 x30 ds) Completed 422840 topiramate 50 MG Oral Tablet 50 mg oral orally 2 times per day (12/10/20 @ 30ds) Completed Medications At Time Of Discharge RxNorm Medication Dose Route Instructions Start Date End Date Stat us 480544 0.8 ML enoxaparin sodium 150 MG/ML Prefilled Syringe 1 20 mg subcutaneous subcutaneously every 12 hours (12/19/20 @ 30ds) Active cetirizine 10 mg oral orally daily (12/19/20 @ 30ds) Active Multivitamins Tablet 1 tab oral orally daily Active Problems Code Code System Problem Name Start Date End Date Status 46694761 SNOMED-CT Kidney stone 2014 Active 99520980 SNOMED-CT Hypercholesterolemia U Acti ve 320088306 SNOMED-CT Asthma U Active Procedures Code Code System Procedure Date 80038641 SNOMED CT Appendectomy U 49467603 SNOMED CT Cholecystectomy U Results Laboratory Results Order: TEST - SERUM Specimen Source: Body Site: Legend: (G,H) = High, (GG,HH,CH,#H) = Above High Threshold, (#,L) = Low, (##,CL ,#L,LL) = Below Low Threshold, (C,CC,CA,#A,A) = Abnormal LOINC Test Result Flag Range Units Date 1SERUM TEST NEGATIVE 01/26/2021 11:39 1Detection Level: >=10 mIU/m L * Performing Lab Footnotes:* Laboratory - [id number] - [address] [address] MARIANA SAXENA 1 Order: AMYLASE Specimen Source: Body Site: Legend: (G,H) = High, (GG,HH,CH,#H) = Above High Threshold, (#,L) = Low, (##,CL ,#L,LL) = Below Low Threshold, (C,CC,CA,#A,A) = Abnormal LOINC Test Result Flag Range Units Date 1799-6 1AMYLASE 43 25-125 U/L 01/26/2021 11:30 * Performing Lab Footnotes:* Laboratory - [id number] - [address] [address] MARIANA Lyon HEMANTH 1 Order: CBC DIFF Specimen Source: Body Site: Legend: (G,H) = High, (GG,HH,CH,#H) = Above High Threshold, (#,L) = Low, (##,CL ,#L,LL) = Below Low Threshold, (C,CC,CA,#A,A) = Abnormal LOINC Test Result Flag Range Units Date 6690-2 1WBC 8.1 4.8-10.8 K/uL 01/26/2021 11:30 19421-2 1RBC 4.18 L 4.20-5.40 M/uL 01/26/2021 11:30 718-7 1HEMOGLOBIN 13.8 12.0-16.0 gm/dL 01/27/20 11:30 4544-3 1HEMATOCRIT 39.5 36.0-48.0 % 01/27/20 11:30 787-2 1MCV 94.5 80.0-100.0 fL 11:30 22481-2 1MCHC 34.8 30.0-36.5 % 01/26/2021 11:30 79948-6 1MCH 32.9 27.0-34.0 pg 01/26/2021 11:30 44511-7 1RDW 12.1 11.0-15.0 % 01/26/2021 11:30 777-3 1PLATELET 304 130-450 K/uL 01/26/2021 11:30 72437-2 1MPV 6.8 6.0-12.0 fL 01/26/2021 11:30 751-8 1NE% 66 37-80 % 01/26/2021 11:30 96931-9 1LY% 27 10-50 % 01/26/2021 11:30 5905-5 1MO% 6 0-12 % 01/26/2021 11:30 17904-9 1EO% 1 <=8 % 01/26/2021 11:30 704-7 1BA% 0 <=3 % 01/26/2021 11:30 34516-7 1NE# 5.3 1.8-8.6 K/uL 01/26/2021 11:30 731-0 1LYMPH# 2.2 0.5-5.0 K/uL 01/26/2021 11:30 742-7 1MONO# 0.5 0.0-1.3 K/uL 01/26/2021 11:30 60154-7 1EOS# 0.1 0.0-0.9 K/uL 01/26/2021 11:30 704-7 1BASO# 0.0 0.0-0.3 K/ul 01/26/2021 11:30 * Performing Lab Footnotes:* Laboratory - [id number] - [address] [place] [address] MARIANA SAXENA 1 Order: COMPREHENSIVE PANEL Specimen Source: Body Site: Legend: (G,H) = High, (GG,HH,CH,#H) = Above High Threshold, (#,L) = Low, (##,CL ,#L,LL) = Below Low Threshold, (C,CC,CA,#A,A) = Abnormal LOINC Test Result Flag Range Units Date 2951-2 1SODIUM 137 136-145 mmol/L 01/26/2021 11:30 2823-3 1POTASSIUM 3.8 3.5-5.2 mmol/L 11:30 2075-0 1CHLORIDE 105 100-108 mmol/L 01/26/2021 11:30 8-9 1CO2 23 21-32 mmol/L 01/26/2021 11:30 2345-7 1GLUCOSE 86 70-100 mg/dL 01/26/2021 11:30 3094-0 1BUN 11 7-21 mg/dL 01/26/2021 11:30 2160-0 1CREATININE 0.6 0.6-1.3 mg/dL 01/27/20 21 11:30 Interpretive Natalia: 1Normal Kidney Function or M ild Disease - GFR >OR= 60 Chronic Kidney Disease - GFR 15-59 Renal Failure - GFR < 15 GFR not calculated on patients under 18 years of age. Calculated (estimated) GFR is based on the MDRD Study equation, which assumes a steady state for creatinine. Estimated GFR may not be appropriate for medication dosing. 85217-0 1CALCIUM 9.4 8.5-10.8 mg/dL 01/26/2021 11:30 45459-8 1GFR >60 01/26/2021 11:30 09394-0 1T BILI 0.4 0.0-1.2 mg/dL 01/26/2021 11:30 2885-2 1T PROTEIN 7.2 6.4-8.2 gm/dL 11:30 1751-7 1ALBUMIN 3.9 3.4-4.8 gm/dL 01/26/2021 11:30 6768-6 1ALK PHOS 106 40-150 U/L 01/26/2021 11:30 1742-6 1ALT (SGPT) 40 0-55 U/L 01/27/20 11:30 1920-8 1AST (SGOT) 37 5-37 U/L 01/27/20 21 11:30 * Performing Lab Footnotes:* Laboratory - [id number] - [address], [place] [address] MARIANA SAXENA 1 Order: LIPASE Specimen Source: Body Site: Legend: (G,H) = High, (GG,HH,CH,#H) = Above High Threshold, (#,L) = Low, (##,CL ,#L,LL) = Below Low Threshold, (C,CC,CA,#A,A) = Abnormal LOINC Test Result Flag Range Units Date 3040-3 1LIPASE 17 8-78 U/L 01/26/2021 11:30 * Performing Lab Footnotes:* Laboratory - [id number] - [address], [place] [address] MARIANA SAXENA 1 Social History Code Code System Social History Observation Description D ates Observed 751456937 SNOMED CT Current Smoking Status Never smoker UNK AdministrativeGender Sex Assigned At Unknown Vital Signs Code Code System Vitals Value Date 8310-5 LOINC Body Temperature 97.8 [degF] 01/26/2021 8865-8 LOINC Pulse Rate 90 {beats}/min 01/26/2021 9279-1 LOINC Respiratory Rate 18 /min 01/26/2021 50614-3 LOINC O2% BldC Oximetry 100 % 01/26/2021 8480-6 LOINC BP Systolic 135 mm[Hg] 01/26/2021 8462-4 LOINC BP Diastolic 89 mm[Hg] 01/26/2021 8302-2 LOINC Height 62 [in_i] 01/26/2021 70800-5 LOINC Weight 118.3 kg 01/26/2021 3140-1 LOINC Body surface area Derived from formula 2. 14 m2 01/26/2021 30512-9 LOINC BMI (Body Mass Index) 47.9 kg/m2 2020 Goals Section * No data in the system Health Concerns * No data in the system Encounter Diagnosis Date Code Code System Diagnosis Status R10.32 ICD10 LEFT LOWER QUADRANT PAIN Act [place] Advance Directives PT STATES NO ADVANCE DIRECTIVES Directive Type Effective Date [employer] Notes Supporting Document Name Address Phone No Directive Type specified 12/04/2016 4:25:00 AM Not Specified Not Specified Not Specified None No *RHIO - CONSENT IS YES Directive Type Effective Date [employer] Notes Supporting Document Name Address Phone No Directive Type specified 03/21/2015 10:30:20 AM Not Specified Not Specified Not Specified None No Encounters Encounter Diagnosis Location Date LEFT LOWER QUADRANT PAIN Emergency Room 01/26/2021 Family History Relationship: Father () Health Problem Age At Onset Notes IN Relationship: Mother Health Problem Age At Onset Notes Benign essential hypertension 43 Years Functional Status Code Functional Condition Code System Date Status Obese [facility] 01/26/2021 Active Independent adls [facility] 01/26/2021 Active Immunizations * No data in the system Medical Equipment * No data in the system Mental Status Code Cognitive Condition Code System Date Status Moves all extremities [facility] 01/26/2021 Active Mild distress [facility] 01/26/2021 Active 586998165 Orientated [facility] 01/26/2021 Active 203662331 Mentally alert [facility] 01/26/2021 Active Assessment and Plan Assessments * No data in the system Plan Of Treatment * No data in the system Pending Tests Test Start Date RENAL/BLADDER U/S LIMITED 01/26/2021 10:18 US-TRANSVAGINAL AND PEL LTD NON OB 01/26/2021 10:19 Hospital Discharge Instructions * No data in the system Reason for Visit Reason for Visit Abdominal Pain
[2021-02-02] MEDS ORDERED: CETI-24 (09:25)
--- OUTSIDE RECORDS SUMMARY | 2021-02-02 09:25 | CCD | Continuity of Care Document ---
Author Author Isidro VILLARREAL D.O. Organization Unknown Address [address] [place] [address] Phone [phone] Care Team Providers Care Boring Machine Set Up Operator Jig Name Role Phone Kemal Villarreal DO AUTM [phone] Jay Bush AUTM [phone] [facility] AUTM [phone] Problems Active Problems Provider Date Drug seeking [...] SIG Qnty Indications Ordering Provide r Date Clindamycin HCL 150mg Capsules 1 by mouth twice a day 30caps K05.00 Michelle VerduzcoO. 01/28/2021 Hydrocodone Bitartrate/Acetaminophen 5-325mg Tablets take one tablet, orally, every 12- 24 ho urs, as needed, for pain Must limit use 14tabs K05.00 Michelle VerduzcoO. 01/28/2021 Cetirizine HCL 10mg Tablets 1 by [...] N39.0 Kemal Villarreal D.O. 09/13/2020 - 09/13/2020 Medications Administered in Office Medication SIG Qnty Indications Ordering Provider Date Rocephin (Ceftriaxone) 1 Gram Inj ection Heather Martinez PA-C 06/04/2020 Immunizations CPT Code Status Date Vaccine Reaction Lot # 36771 Given 12/18/2020 Fluzone Quadrivalent 0.5 mL Pre-Filled 6 Mo & Older No Reaction [id number] Given 09/13/2020 MMR Virus Immunization No Reaction S [id number] [id number] Given 08/07/2020 MMR Virus Immunization No Reaction s [id number] Given 06/03/2013 Fluzone Trivalent Immunization 45087 Given 03/16/2007 Tetanus Toxoid Vital Signs Date Vital Result Comment 12/18/2020 12:45pm Body Temperature 97.1 F Forehead Weight 272.00 lb Heart Rate 76 /min BP Systolic 144 mmHg L Arm, Sitting BP Diastolic 102 mmHg L Arm, Sitting Respiratory Rate 18 /min Height 60 inches 5'0" BMI (Body Mass Index) 53.1 kg/m2 [place] Body Weight 100 lb O2 % BldC Oximetry 99 % Room Air Height in cm's 152.4 cm 11/01/2020 11:55am Body Temperature 97.3 F Weight 275.00 lb Heart Rate 86 /min BP Systolic 126 mmHg L Arm, Lrg cuff BP Diastolic 84 mmHg L Arm, Lrg cuff Respiratory Rate 16 /min Height 60 inches 5'0" BMI (Body Mass Index) 53.7 kg/m2 [place] Body Weight 100 lb O2 % BldC Oximetry 99 % Room Air Height in cm's 152.4 cm Results Test Acquired Date Facility Test Result H/L Range Note Istat Chem8+ Panel 01/17/2021 [facility] iSTAT HCT 39.0 % Normal 38.0-51.0 iSTAT Glucose 85 mg/dL Normal 70-105 iSTAT Sodium 140 mEq/L Normal 136-145 iSTAT Potassium 3.8 mEq/L Normal 3.5-5.1 iSTAT CA++ 4.8 mg/dL Normal 4.5-5.3 iSTAT Chloride 105 mEq/L Normal 98-109 iSTAT Co2 24.0 MM/L Normal 23.0-27.0 iSTAT BUN 13 mg/dL Normal 8-26 iSTAT Creatinine 0.7 mg/dL Normal 0.6-1.3 CBC With Differential 01/17/2021 [facility] White Blood Count 8.6 10 Normal 4.0-10.0 [...] 36.0-66.0 Lymph % 34.9 % Normal 24.0-44.0 [place] % 6.8 % Normal 2.0-8.0 Eos % 1.3 % Normal 0.0-3.0 Baso % 0.4 % Normal 0.0-1.0 Immature Granulocyte % 0.8 % Normal 0-3.0 Nucleated Red Blood Cell % 0.0 % Normal 0-0 Neutrophils # 4.8 10 Normal 1.5-8.5 Lymph # 3.0 10 Normal 1.5-5.0 [place] # 0.6 10 Normal 0.0-0.8 Eos # 0.1 10 Normal 0.0-0.5 Baso # 0.0 10 Normal 0.0-0.2 Liver Profile 01/17/2021 [facility] Ast/Sgot 33 U/L Normal 7-37 Alt/SGPT 49 U/L Normal 12-78 Alkaline Phosphatase 106 U/L Normal 45-117 Bilirubin,Total 0.3 mg/dL Normal 0.2-1.0 Bilirubin,Direct < 0.1 mg/dL Normal 0.0-0.2 Total Protein 7.0 GM/DL Normal 6.4-8.2 Albumin 3.5 GM/DL Normal 3.2-5.2 Albumin/Globulin Ratio 1.0 Low 1.2-2.2 Laboratory test finding 01/17/2021 [facility] Lipase 93 U/L Normal 73-393 Coronavirus 2019 Nasopharygeal <pending> Sars Covid-19 Amplification NEGATIVE Normal Negative 1 Laboratory test finding 01/17/2021 [facility] iSTAT B-hCG < 5.0 Normal 2 Ua W/ Reflex To Culture 12/24/2020 [facility] Appearance, Urine RFX CLOUDY High Clear Color, Urine RFX YELLOW Normal Yellow PH,Urine RFX 5.0 units Normal 5.0-9.0 Specific [place] Ur Auto RFX 1.015 Normal 1.002-1.035 Protein, [...] 0 /LPF Normal 0-1 Reflex Urine Culture 12/24/2020 [facility] Reflex Urine Culture FULL REPORT IN L <SEE NOTE> Normal 3 Laboratory test finding 12/24/2020 [facility] Lipase 101 U/L Normal 73-393 Liver Profile 12/24/2020 [facility] Ast/Sgot 43 U/L High 7-37 Alt/SGPT 56 U/L Normal 12-78 Alkaline Phosphatase 114 U/L Normal 45-117 Bilirubin,Total 0.3 mg/dL Normal 0.2-1.0 Bilirubin,Direct 0.1 mg/dL Normal 0.0-0.2 Total Protein 7.3 GM/DL Normal 6.4-8.2 Albumin 3.6 GM/DL Normal 3.2-5.2 Albumin/Globulin Ratio 1.0 Low 1.2-2.2 CBC With Differential 12/24/2020 [facility] White Blood Count 7.6 10 Normal 4.0-10.0 [...] 36.0-66.0 Lymph % 32.5 % Normal 24.0-44.0 [place] % 6.3 % Normal 2.0-8.0 Eos % 1.5 % Normal 0.0-3.0 Baso % 0.3 % Normal 0.0-1.0 Immature Granulocyte % 0.7 % Normal 0-3.0 Nucleated Red Blood Cell % 0.0 % Normal 0-0 Neutrophils # 4.4 10 Normal 1.5-8.5 Lymph # 2.5 10 Normal 1.5-5.0 [place] # 0.5 10 Normal 0.0-0.8 Eos # 0.1 10 Normal 0.0-0.5 Baso # 0.0 10 Normal 0.0-0.2 Istat Chem8+ Panel 12/24/2020 [facility] iSTAT HCT 40.0 % Normal 38.0-51.0 iSTAT Glucose 83 mg/dL Normal 70-105 iSTAT Sodium 140 mEq/L Normal 136-145 iSTAT Potassium 3.5 mEq/L Normal 3.5-5.1 iSTAT CA++ 4.6 mg/dL Normal 4.5-5.3 iSTAT Chloride 103 mEq/L Normal 98-109 iSTAT Co2 25.0 MM/L Normal 23.0-27.0 iSTAT BUN 12 mg/dL Normal 8-26 iSTAT Creatinine 0.8 mg/dL Normal 0.6-1.3 Laboratory test finding 12/24/2020 [facility] iSTAT B-hCG < 5.0 Normal 4 Urinalysis 12/03/2020 [facility] [phone] Color,Ur RED Abnormal Yellow Appearance,Ur CLOUDY Abnormal Clear PH,Ur 6.0 5.0-8.0 Specific [place],Ur 1.014 Normal 1.002-1.035 Protein,Ur 100 mg/dL Abnormal [...] 11/01/2020 [facility] [address] [place] [address] [phone] CR Spine Lumbosac Complete W/Bend <pending> Laboratory test finding 10/30/2020 [facility] iSTAT B-hCG < 5.0 Normal 5 CBC With Differential 10/30/2020 [facility] White Blood Count 10.1 10 High 4.0-10.0 [...] 36.0-66.0 Lymph % 23.8 % Low 24.0-44.0 [place] % 5.9 % Normal 2.0-8.0 Eos % 0.8 % Normal 0.0-3.0 Baso % 0.4 % Normal 0.0-1.0 Immature Granulocyte % 0.8 % Normal 0-3.0 Nucleated Red Blood Cell % 0.0 % Normal 0-0 Neutrophils # 6.9 10 Normal 1.5-8.5 Lymph # 2.4 10 Normal 1.5-5.0 [place] # 0.6 10 Normal 0.0-0.8 Eos # 0.1 10 Normal 0.0-0.5 Baso # 0.0 10 Normal 0.0-0.2 Liver Profile 10/30/2020 [facility] Ast/Sgot 40 U/L High 7-37 Alt/SGPT 58 U/L Normal 12-78 Alkaline Phosphatase 112 U/L Normal 45-117 Bilirubin,Total 0.3 mg/dL Normal 0.2-1.0 Bilirubin,Direct 0.1 mg/dL Normal 0.0-0.2 Total Protein 7.4 GM/DL Normal 6.4-8.2 Albumin 3.6 GM/DL Normal 3.2-5.2 Albumin/Globulin Ratio 0.9 Low 1.2-2.2 Basic Metabolic Profile 10/30/2020 [facility] Glucose, Fasting 91 mg/dL Normal 70-100 Blood Urea Nitrogen 17 mg/dL Normal 7-18 Creatinine For GFR 0.74 mg/dL Normal 0.55-1.30 Glomerular Filtration Rate > 60.0 Normal >60 6 Sodium Level 139 mEq/L Normal 136-145 Potassium Serum 3.8 mEq/L Normal 3.5-5.1 Chloride Level 108 mEq/L High 98-107 Carbon Dioxide Level 26 mEq/L Normal 21-32 Anion Gap 5 mEq/L Low 8-16 Calcium Level 8.9 mg/dL Normal 8.5-10.1 Laboratory test finding 10/30/2020 [facility] Lipase 105 U/L Normal 73-393 Basic Metabolic Panel 10/06/2020 [facility] [place] [phone] Sodium 139 mEq/L Normal 135-145 Potassium 3.8 mEq/L Normal 3.5-5.3 Chloride 108 mEq/L Normal 94-110 Carbon Dioxide 24 mEq/L Normal 22-33 Anion Gap 11 Normal 5-16 Blood Urea Nitro 14 mg/dL Normal 7-25 Creatinine 0.8 mg/dL Normal 0.6-1.4 GFR 81.2 mL/min 7 BUN/Creat Ratio 17 Normal 8-36 Glucose 82 mg/dL Normal 70-100 CA 9.6 mg/dL Normal 8.7-10.5 Laboratory test finding 10/06/2020 [facility] [phone] No Urine Received From Patient NO URINE RECEIVE <SEE N OTE> 8 Laboratory test finding 10/06/2020 [facility] [phone] Glycosylated Hgba1c 4.9 % Normal 4.1-6.5 Reflex Urine Culture 09/26/2020 [facility] Reflex Urine Culture FULL REPORT IN L <SEE NOTE> Normal 9 Ua W/ Reflex To Culture 09/26/2020 [facility] Appearance, Urine RFX CLOUDY High Clear Color, Urine RFX YELLOW Normal Yellow PH,Urine RFX 6.0 units Normal 5.0-9.0 Specific [place] Ur Auto RFX 1.021 Normal 1.002-1.035 Protein, [...] /LPF Normal 0-1 Laboratory test finding 09/26/2020 [facility] Lipase 100 U/L Normal 73-393 HCG Serum Qualitative NEGATIVE Normal Negative Basic Metabolic Profile 09/26/2020 [facility] Glucose, Fasting 101 mg/dL High 70-100 Blood Urea Nitrogen 13 mg/dL Normal 7-18 Creatinine For GFR 0.72 mg/dL Normal 0.55-1.30 Glomerular Filtration Rate > 60.0 Normal >60 1 0 Sodium Level 140 mEq/L Normal 136-145 Potassium Serum 4.3 mEq/L Normal 3.5-5.1 Chloride Level 108 mEq/L High 98-107 Carbon Dioxide Level 23 mEq/L Normal 21-32 Anion Gap 9 mEq/L Normal 8-16 Calcium Level 9.0 mg/dL Normal 8.5-10.1 Liver Profile 09/26/2020 [facility] Ast/Sgot 56 U/L High 7-37 Alt/SGPT 65 U/L Normal 12-78 Alkaline Phosphatase 110 U/L Normal 45-117 Bilirubin,Total 0.3 mg/dL Normal 0.2-1.0 Bilirubin,Direct < 0.1 mg/dL Normal 0.0-0.2 Total Protein 7.2 GM/DL Normal 6.4-8.2 Albumin 3.6 GM/DL Normal 3.2-5.2 Albumin/Globulin Ratio 1.0 Low 1.2-2.2 Laboratory test finding 09/26/2020 [facility] Partial Thromboplastin Time 23.5 seconds Low 24.2-38.5 Prothrombin Time/Inr 09/26/2020 [facility] Prothrombin Time 12.3 seconds Normal 12.5-14.3 Inr 0.90 Normal 11 CBC With Differential 09/26/2020 [facility] White Blood Count 6.6 10 Normal 4.0-10.0 [...] 36.0-66.0 Lymph % 30.3 % Normal 24.0-44.0 [place] % 7.5 % Normal 2.0-8.0 Eos % 1.2 % Normal 0.0-3.0 Baso % 0.5 % Normal 0.0-1.0 Immature Granulocyte % 0.8 % Normal 0-3.0 Nucleated Red Blood Cell % 0.0 % Normal 0-0 Neutrophils # 4.0 10 Normal 1.5-8.5 Lymph # 2.0 10 Normal 1.5-5.0 [place] # 0.5 10 Normal 0.0-0.8 Eos # 0.1 10 Normal 0.0-0.5 Baso # 0.0 10 Normal 0.0-0.2 Istat Chem8+ Panel 09/05/2020 [facility] iSTAT HCT 36.0 % Low 38.0-51.0 iSTAT Glucose 88 mg/dL Normal 70-105 iSTAT Sodium 139 mEq/L Normal 136-145 iSTAT Potassium 4.0 mEq/L Normal 3.5-5.1 iSTAT CA++ 4.8 mg/dL Normal 4.5-5.3 iSTAT Chloride 103 mEq/L Normal 98-109 iSTAT Co2 26.0 MM/L Normal 23.0-27.0 iSTAT BUN 12 mg/dL Normal 8-26 iSTAT Creatinine 0.6 mg/dL Normal 0.6-1.3 Laboratory test finding 09/05/2020 [facility] iSTAT B-hCG < 5.0 Normal 12 Laboratory test finding 09/05/2020 [facility] iSTAT B-hCG < 5.0 Normal 13 Istat Chem8+ Panel 09/05/2020 [facility] iSTAT HCT 39.0 % Normal 38.0-51.0 iSTAT Glucose 119 mg/dL High 70-105 iSTAT Sodium 139 mEq/L Normal 136-145 iSTAT Potassium 4.0 mEq/L Normal 3.5-5.1 iSTAT CA++ 5.0 mg/dL Normal 4.5-5.3 iSTAT Chloride 100 mEq/L Normal 98-109 iSTAT Co2 25.0 MM/L Normal 23.0-27.0 iSTAT BUN 13 mg/dL Normal 8-26 iSTAT Creatinine 0.6 mg/dL Normal 0.6-1.3 MMR 07/31/2020 [facility] [phone] Rubella IgG Ab,S 1.49 index Immune >0.99 14 Rubeola IgG Ab,S 32.2 AU/mL Immune >16.4 15 Mumps IgG,S <9.0 AU/mL Abnormal Immune >10.9 16 1 A false negative result may occur [...] pathogens. DISCLAIMER: Testing was performed using the [employer] SARS-CoV-2 test. This test was developed and its performance characteristics determined by [employer]. This test has not been FDA cleared [...] POSITIVE 3 FULL REPORT IN LAB NOTES ([facility]). SPECIMEN APPEARS CONTAMINATED 4 QUANTITATIVE RESULT QUALITATIVE INTERPRETATION <5.0 IU/L NEGATIVE 5.0 - 25.0 IU/L INDETER MINATE >25.0 IU/L POSITIVE 5 QUANTITATIVE RESULT QUALITATIVE INTERPRETATION <5.0 IU/L NEGATIVE 5.0 - 25.0 IU/L INDETER MINATE >25.0 IU/L POSITIVE 6 Units are mL/min/1.73 m2 Chronic Kidney Disease Staging per NKF: Stage I & II GFR >=60 Normal to Mildly Decreased Stage III GFR 30-59 Moderately Decreased Stage IV GFR 15-29 Severely Decreased Stage V GFR <15 Very Little GFR Left ESRD GFR <15 on PLATING TECHNICIAN 7 Stage G2 - Mildly decreased kidney [...] Patient informed to return with specimen. 9 FULL REPORT IN LAB NOTES ([facility]). SPECIMEN APPEARS CONTAMINATED 10 Units are mL/min/1.73 m2 Chronic Kidney Disease Staging per NKF: Stage I & II GFR >=60 Normal to Mildly Decreased Stage III GFR 30-59 Moderately Decreased Stage IV GFR 15-29 Severely Decreased Stage V GFR <15 Very Little GFR Left ESRD GFR <15 on PLATING TECHNICIAN 11 THERAPUTIC HUMAN INR VALUES INDICATIONS NORMAL [...] 25.0 IU/L INDETER MINATE >25.0 IU/L POSITIVE 14 Non-immune <0.90 Equivocal 0.90 - 0.99 Immune >0.99 15 Negative <13.5 Equivocal 13.5 - 16.4 Positive >16.4 Presence of antibodies to Rubeola is presumptive evidence of immunity except when acute infection is suspected. 16 Negative <9.0 Equivocal 9.0 - 10.9 Positive >10.9 A positive result generally indicates past exposure to Mumps virus or previous vaccination. Performed at: - [facility] [id number] Research Fellow: Jimena Jay MD, Phone: [phone] Procedures Date Code Description Status 01/28/2021 04689 Office/Outpatient Established Lo w MDM 20-29 Min Completed 12/18/2020 08755 Office/Outpatient Established Lo w MDM 20-29 Min Completed 12/18/2020 45465 Brief Emotional/Beha v Assessment W/ Scoring Doc Per Standard Inst Completed 12/10/2020 82200 Office/Outpatient Established Lo w MDM 20-29 Min Completed 11/01/2020 63303 Office/Outpatient Established Mo d MDM 30-39 Min Completed 10/18/2020 84412 Office/Outpatient Established Lo w MDM 20-29 Min Completed 09/13/2020 67688 Preventive Visit Est 18-39 Yrs C ompleted 09/13/2020 08878 Office/Outpatient Established Mo d MDM 30-39 Min Completed 09/13/2020 48178 Visual Screening Test Completed 09/13/2020 81651 Electrocardiogram Complete Compl eted 09/13/2020 26400 Screening Hearing Test Completed 08/10/2020 90751 Office/Outpatient Established Lo w MDM 20-29 Min Completed Medical Devices Description No Information Available Encounters Type Date Location Provider Dx Diagnosis Office Visit 01/28/2021 5:45p [facility] Kemal Villarreal D.O. K05.00 Acute gingivitis, plaque ind uced M54.50 Low back pain, unspecified Office Visit 12/18/2020 1:00p [facility] Lawanda Martinez PA-C M54.50 Low back pain, unspecified Z13.31 Encounter for screening for depression Z23 Encounter for immunization Office Visit [facility]2020 7[facility] D[facility] M54.5 Low back pain R31.29 Other microscopic hematuria Z91.19 Patient's noncompliance w ot h medical treatment and regimen Office Visit [facility] D[facility] E16.2 Hypoglycemia, unspecified M54.5 Low back pain E66.01 Morbid (severe) obesity due to excess calories Z68.43 Body mass index [BMI] 50.0-5 9.9, adult Office Visit [facility] M54.5 Low back pain R53.83 Other fatigue Office Visit 09/13/2020 9:00a [facility]- Lawanda Villarreal D.O. Z00.00 Encntr for general adult med ical exam w/o abnormal findings E66.01 Morbid (severe) obesity due to excess calories Z23 Encounter for immunization Z68.43 Body mass index [BMI] 50.0-5 9.9, adult R53.83 Other fatigue Office Visit 08/10/2020 6:30p [facility] Kemal Villarreal D.O. D50.9 Iron deficiency anemia, unsp ecified M54.5 Low back pain Assessments Date Code Description Provider 01/28/2021 K05.00 Acute gingivitis, plaque induced Michelle VerduzcoOMark 01/28/2021 M54.50 Low back pain, unspecified Kemal Villarreal D.O. 12/18/2020 M54.50 Low back pain, unspecified Heather Martinez PA-C 12/18/2020 Z13.31 Encounter for screening for depr ession Heather Martinez PA-C 12/18/2020 Z23 Encounter for immunization Heather Martinez PA-C 12/10/2020 M54.5 Low back pain Michelle Verduzco OMark 12/10/2020 R31.29 Other microscopic hematuria Kemal Villarreal D.O. 12/10/2020 Z91.19 Patient's noncomplia nce with other medical treatment and regimen Kemal Villarreal D.O. 11/01/2020 E16.2 Hypoglycemia, unspecified Michelle VerduzcoOMark 11/01/2020 M54.5 Low back pain Michelle Verduzco 11/01/2020 E66.01 Morbid (severe) obesity due to e xcess calories Michelle VerduzcoOMark 11/01/2020 Z68.43 Body mass index [BMI] 50.0-59.9, adult Kemal Villarreal D.O. 10/18/2020 M54.5 Low back pain Michelle Verduzco OMark 10/18/2020 R53.83 Other fatigue Michelle Verduzco OMark [...] 10:45 am - Kemal Villarreal D.O. at [facility] * 02/01/2021 9:20 am - Heather Martinez PA-C at [facility] 01/28/2021 - Kemal Villarreal D.O.* K05.00 Acute gingivitis, plaque induced* New Medication:* Clindamycin HCL 150 mg - 1 by mouth twice a day * Hydrocodone Bitartrate/Acetaminophen 5-325 mg - take one tablet, orally, every 12- 24 hours, as needed, for pain Must limit use * M54.50 Low back pain, unspecified Goals 01/28/2021 - Kemal Villarreal D.O.* K05.00 Acute gingivitis, plaque induced* Encouraged to follow up with the Dentist. * M54.50 Low back pain, unspecified* The plan of action was discussed with the patient. All questions were answered and the patient agrees to proceed with this plan. Functional Status Description No Information Available Mental Status Description No Information Available Referrals Refer to Reason for Referral Status Appt Date [facility] Dear Doctor: To whom this m ay concern: I am referring this patient due to low back pain. With this referral you will also recieve the followin. Problem List; 2. Medication List; 3. Allergy List; 4. Last labs; 5. Last Progress Note. If you do not recieve the above, please contact our Slitter Cut Off Operator. As always, we thank you for the great service you provide to our patients. Sincerely, Kemal Villarreal DO Closed [address] [place] [phone] Jay Bush Dear Doctor, This patient i [...] patient. Kemal Villarreal D.O. [facility] [employer] Developer Closed [facility] [place] [address] [phone]
--- OUTSIDE RECORDS SUMMARY | 2021-02-02 09:25 | CCD | Continuity of Care Document ---
Author Author Isidro VILLARREAL D.O. Organization Unknown Address [address] [place] [id number] Phone [phone] Care Team Providers Care Cyber Ops Planner Name Role Phone Kemal Villarreal DO AUTM [phone] Jay Bush AUTM [phone] [facility] AUTM [phone] Problems Active Problems Provider Date Drug seeking [...] Code Status Date Vaccine Reaction Lot # 99318 Given 12/18/2020 Fluzone Quadrivalent 0.5 mL Pre-Filled 6 Mo & Older No Reaction [id number] Given 09/13/2020 MMR Virus Immunization No Reaction S [id number] Given 08/07/2020 MMR Virus Immunization No Reaction s [id number] Given 06/03/2013 Fluzone Trivalent Immunization 89836 Given 03/16/2007 Tetanus Toxoid Vital Signs Date Vital Result Comment 12/18/2020 12:45pm Body Temperature 97.1 F Forehead Weight 272.00 lb Heart Rate 76 /min BP Systolic 144 mmHg L Arm, Sitting BP Diastolic 102 mmHg L Arm, Sitting Respiratory Rate 18 /min Height 60 inches 5'0" BMI (Body Mass Index) 53.1 kg/m2 Fowler Body Weight 100 lb O2 % BldC Oximetry 99 % Room Air Height in cm's 152.4 cm 11/01/2020 11:55am Body Temperature 97.3 F Weight 275.00 lb Heart Rate 86 /min BP Systolic 126 mmHg L Arm, Lrg cuff BP Diastolic 84 mmHg L Arm, Lrg cuff Respiratory Rate 16 /min Height 60 inches 5'0" BMI (Body Mass Index) 53.7 kg/m2 Fowler Body Weight 100 lb O2 % BldC Oximetry 99 % Room Air Height in cm's 152.4 cm Results Test Acquired Date Facility Test Result H/L Range Note Istat Chem8+ Panel 01/17/2021 [facility] iSTAT HCT 39.0 % Normal 38.0-51.0 iSTAT Glucose 85 mg/dL Normal 70-105 iSTAT Sodium 140 mEq/L Normal 136-145 iSTAT Potassium 3.8 mEq/L Normal 3.5-5.1 iSTAT CA++ 4.8 mg/dL Normal 4.5-5.3 iSTAT Chloride 105 mEq/L Normal 98-109 iSTAT Co2 24.0 MM/L Normal 23.0-27.0 iSTAT BUN 13 mg/dL Normal 8-26 iSTAT Creatinine 0.7 mg/dL Normal 0.6-1.3 CBC With Differential 01/17/2021 [facility] White Blood Count 8.6 10 Normal [...] 36.0-66.0 Lymph % 34.9 % Normal 24.0-44.0 Bond % 6.8 % Normal 2.0-8.0 Eos % 1.3 % Normal 0.0-3.0 Baso % 0.4 % Normal 0.0-1.0 Immature Granulocyte % 0.8 % Normal 0-3.0 Nucleated Red Blood Cell % 0.0 % Normal 0-0 Neutrophils # 4.8 10 Normal 1.5-8.5 Lymph # 3.0 10 Normal 1.5-5.0 Bond # 0.6 10 Normal 0.0-0.8 Eos # 0.1 10 Normal 0.0-0.5 Baso # 0.0 10 Normal 0.0-0.2 Liver Profile 01/17/2021 [facility] Ast/Sgot 33 U/L Normal 7-37 Alt/SGPT 49 U/L Normal 12-78 Alkaline Phosphatase 106 U/L Normal 45-117 Bilirubin,Total 0.3 mg/dL Normal 0.2-1.0 Bilirubin,Direct < 0.1 mg/dL Normal 0.0-0.2 Total Protein 7.0 GM/DL Normal 6.4-8.2 Albumin 3.5 GM/DL Normal 3.2-5.2 Albumin/Globulin Ratio 1.0 Low 1.2-2.2 Laboratory test finding 01/17/2021 [facility] Lipase 93 U/L Normal 73-393 Coronavirus 2019 Nasopharygeal <pending> Sars Covid-19 Amplification NEGATIVE Normal Negative 1 Laboratory test finding 01/17/2021 [facility] iSTAT B-hCG < 5.0 Normal 2 Ua W/ Reflex To Culture 12/24/2020 [facility] Appearance, Urine RFX CLOUDY High Clear Color, Urine RFX YELLOW Normal Yellow PH,Urine RFX 5.0 units Normal 5.0-9.0 Specific [place] Ur Auto RFX 1.015 Normal 1.002-1.035 Protein, [...] /LPF Normal 0-1 Reflex Urine Culture 12/24/2020 [facility] Reflex Urine Culture FULL REPORT IN L <SEE NOTE> Normal 3 Laboratory test finding 12/24/2020 [facility] Lipase 101 U/L Normal 73-393 Liver Profile 12/24/2020 [facility] Ast/Sgot 43 U/L High 7-37 Alt/SGPT 56 U/L Normal 12-78 Alkaline Phosphatase 114 U/L Normal 45-117 Bilirubin,Total 0.3 mg/dL Normal 0.2-1.0 Bilirubin,Direct 0.1 mg/dL Normal 0.0-0.2 Total Protein 7.3 GM/DL Normal 6.4-8.2 Albumin 3.6 GM/DL Normal 3.2-5.2 Albumin/Globulin Ratio 1.0 Low 1.2-2.2 CBC With Differential 12/24/2020 [facility] White Blood Count 7.6 10 Normal [...] 36.0-66.0 Lymph % 32.5 % Normal 24.0-44.0 Bond % 6.3 % Normal 2.0-8.0 Eos % 1.5 % Normal 0.0-3.0 Baso % 0.3 % Normal 0.0-1.0 Immature Granulocyte % 0.7 % Normal 0-3.0 Nucleated Red Blood Cell % 0.0 % Normal 0-0 Neutrophils # 4.4 10 Normal 1.5-8.5 Lymph # 2.5 10 Normal 1.5-5.0 Bond # 0.5 10 Normal 0.0-0.8 Eos # 0.1 10 Normal 0.0-0.5 Baso # 0.0 10 Normal 0.0-0.2 Istat Chem8+ Panel 12/24/2020 [facility] iSTAT HCT 40.0 % Normal 38.0-51.0 iSTAT Glucose 83 mg/dL Normal 70-105 iSTAT Sodium 140 mEq/L Normal 136-145 iSTAT Potassium 3.5 mEq/L Normal 3.5-5.1 iSTAT CA++ 4.6 mg/dL Normal 4.5-5.3 iSTAT Chloride 103 mEq/L Normal 98-109 iSTAT Co2 25.0 MM/L Normal 23.0-27.0 iSTAT BUN 12 mg/dL Normal 8-26 iSTAT Creatinine 0.8 mg/dL Normal 0.6-1.3 Laboratory test finding 12/24/2020 [facility] iSTAT B-hCG < 5.0 Normal 4 Urinalysis 12/03/2020 [facility] [phone] Color,Ur RED Abnormal Yellow Appearance,Ur CLOUDY Abnormal Clear PH,Ur 6.0 5.0-8.0 Specific [place],Ur 1.014 Normal 1.002-1.035 Protein,Ur 100 mg/dL Abnormal [...] 11/01/2020 [facility] [address] [place] [address] [phone] CR Spine Lumbosac Complete W/Bend <pending> Laboratory test finding 10/30/2020 [facility] iSTAT B-hCG < 5.0 Normal 5 CBC With Differential 10/30/2020 [facility] White Blood Count 10.1 10 High [...] 36.0-66.0 Lymph % 23.8 % Low 24.0-44.0 Bond % 5.9 % Normal 2.0-8.0 Eos % 0.8 % Normal 0.0-3.0 Baso % 0.4 % Normal 0.0-1.0 Immature Granulocyte % 0.8 % Normal 0-3.0 Nucleated Red Blood Cell % 0.0 % Normal 0-0 Neutrophils # 6.9 10 Normal 1.5-8.5 Lymph # 2.4 10 Normal 1.5-5.0 Bond # 0.6 10 Normal 0.0-0.8 Eos # 0.1 10 Normal 0.0-0.5 Baso # 0.0 10 Normal 0.0-0.2 Liver Profile 10/30/2020 [facility] Ast/Sgot 40 U/L High 7-37 Alt/SGPT 58 U/L Normal 12-78 Alkaline Phosphatase 112 U/L Normal 45-117 Bilirubin,Total 0.3 mg/dL Normal 0.2-1.0 Bilirubin,Direct 0.1 mg/dL Normal 0.0-0.2 Total Protein 7.4 GM/DL Normal 6.4-8.2 Albumin 3.6 GM/DL Normal 3.2-5.2 Albumin/Globulin Ratio 0.9 Low 1.2-2.2 Basic Metabolic Profile 10/30/2020 [facility] Glucose, Fasting 91 mg/dL Normal 70-100 [...] mg/dL Normal 8.5-10.1 Laboratory test finding 10/30/2020 [facility] Lipase 105 U/L Normal 73-393 Basic Metabolic Panel 10/06/2020 [facility] [phone] Sodium 139 mEq/L Normal 135-145 Potassium 3.8 mEq/L Normal 3.5-5.3 Chloride 108 mEq/L Normal 94-110 Carbon Dioxide 24 mEq/L Normal 22-33 Anion Gap 11 Normal 5-16 Blood Urea Nitro 14 mg/dL Normal 7-25 Creatinine 0.8 mg/dL Normal 0.6-1.4 GFR 81.2 mL/min 7 BUN/Creat Ratio 17 Normal 8-36 Glucose 82 mg/dL Normal 70-100 CA 9.6 mg/dL Normal 8.7-10.5 Laboratory test finding 10/06/2020 [facility] [phone] No Urine Received From Patient NO URINE RECEIVE <SEE N OTE> 8 Laboratory test finding 10/06/2020 [facility] [phone] Glycosylated Hgba1c 4.9 % Normal 4.1-6.5 Reflex Urine Culture 09/26/2020 [facility] Reflex Urine Culture FULL REPORT IN L <SEE NOTE> Normal 9 Ua W/ Reflex To Culture 09/26/2020 [facility] Appearance, Urine RFX CLOUDY High Clear Color, Urine RFX YELLOW Normal Yellow PH,Urine RFX 6.0 units Normal 5.0-9.0 Specific [place] Ur Auto RFX 1.021 Normal 1.002-1.035 Protein, [...] /LPF Normal 0-1 Laboratory test finding 09/26/2020 [facility] Lipase 100 U/L Normal 73-393 HCG Serum Qualitative NEGATIVE Normal Negative Basic Metabolic Profile 09/26/2020 [facility] Glucose, Fasting 101 mg/dL High [...] 9.0 mg/dL Normal 8.5-10.1 Liver Profile 09/26/2020 [facility] Ast/Sgot 56 U/L High 7-37 Alt/SGPT 65 U/L Normal 12-78 Alkaline Phosphatase 110 U/L Normal 45-117 Bilirubin,Total 0.3 mg/dL Normal 0.2-1.0 Bilirubin,Direct < 0.1 mg/dL Normal 0.0-0.2 Total Protein 7.2 GM/DL Normal 6.4-8.2 Albumin 3.6 GM/DL Normal 3.2-5.2 Albumin/Globulin Ratio 1.0 Low 1.2-2.2 Laboratory test finding 09/26/2020 [facility] Partial Thromboplastin Time 23.5 seconds Low 24.2-38.5 Prothrombin Time/Inr 09/26/2020 [facility] Prothrombin Time 12.3 seconds Normal 12.5-14.3 Inr 0.90 Normal 11 CBC With Differential 09/26/2020 [facility] White Blood Count 6.6 10 [...] 36.0-66.0 Lymph % 30.3 % Normal 24.0-44.0 Bond % 7.5 % Normal 2.0-8.0 Eos % 1.2 % Normal 0.0-3.0 Baso % 0.5 % Normal 0.0-1.0 Immature Granulocyte % 0.8 % Normal 0-3.0 Nucleated Red Blood Cell % 0.0 % Normal 0-0 Neutrophils # 4.0 10 Normal 1.5-8.5 Lymph # 2.0 10 Normal 1.5-5.0 Bond # 0.5 10 Normal 0.0-0.8 Eos # 0.1 10 Normal 0.0-0.5 Baso # 0.0 10 Normal 0.0-0.2 Istat Chem8+ Panel 09/05/2020 [facility] iSTAT HCT 36.0 % Low 38.0-51.0 iSTAT Glucose 88 mg/dL Normal 70-105 iSTAT Sodium 139 mEq/L Normal 136-145 iSTAT Potassium 4.0 mEq/L Normal 3.5-5.1 iSTAT CA++ 4.8 mg/dL Normal 4.5-5.3 iSTAT Chloride 103 mEq/L Normal 98-109 iSTAT Co2 26.0 MM/L Normal 23.0-27.0 iSTAT BUN 12 mg/dL Normal 8-26 iSTAT Creatinine 0.6 mg/dL Normal 0.6-1.3 Laboratory test finding 09/05/2020 [facility] iSTAT B-hCG < 5.0 Normal 12 Laboratory test finding 09/05/2020 [facility] iSTAT B-hCG < 5.0 Normal 13 Istat Chem8+ Panel 09/05/2020 [facility] iSTAT HCT 39.0 % Normal 38.0-51.0 iSTAT Glucose 119 mg/dL High 70-105 iSTAT Sodium 139 mEq/L Normal 136-145 iSTAT Potassium 4.0 mEq/L Normal 3.5-5.1 iSTAT CA++ 5.0 mg/dL Normal 4.5-5.3 iSTAT Chloride 100 mEq/L Normal 98-109 iSTAT Co2 25.0 MM/L Normal 23.0-27.0 iSTAT BUN 13 mg/dL Normal 8-26 iSTAT Creatinine 0.6 mg/dL Normal 0.6-1.3 MMR 07/31/2020 [facility] [phone] Rubella IgG Ab,S 1.49 index Immune >0.99 [...] pathogens. DISCLAIMER: Testing was performed using the [employer] SARS-CoV-2 test. This test was developed and its performance characteristics determined by [employer]. This test has not been FDA cleared [...] POSITIVE 3 FULL REPORT IN LAB NOTES ([employer]). SPECIMEN APPEARS CONTAMINATED 4 QUANTITATIVE RESULT QUALITATIVE [...] Little GFR Left ESRD GFR <15 on [employer] 7 Stage G2 - Mildly decreased kidney [...] specimen. 9 FULL REPORT IN LAB NOTES ([employer]). SPECIMEN APPEARS CONTAMINATED 10 Units are mL/min/1.73 m2 Chronic Kidney Disease Staging per NKF: Stage I & II GFR >=60 Normal to Mildly Decreased Stage III GFR 30-59 Moderately Decreased Stage IV GFR 15-29 Severely Decreased Stage V GFR <15 Very Little GFR Left ESRD GFR <15 on [employer] 11 THERAPUTIC HUMAN INR VALUES INDICATIONS NORMAL [...] Mumps virus or previous vaccination. Performed at: [facility] [address] [id number] Residential Care Officer: Jimena Jay MD, Phone: [phone] Procedures Date Code Description Status 12/18/2020 29373 Office/Outpatient Established Lo w MDM 20-29 Min Completed 12/18/2020 41639 Brief Emotional/Beha v Assessment W/ Scoring Doc Per Standard Inst Completed 12/10/2020 55859 Office/Outpatient Established Lo w MDM 20-29 Min Completed 11/01/2020 16797 Office/Outpatient Established Mo d MDM 30-39 Min Completed 10/18/2020 13048 Office/Outpatient Established Lo w MDM 20-29 Min Completed 09/13/2020 83181 Preventive Visit Est 18-39 Yrs C ompleted 09/13/2020 41325 Office/Outpatient Established Mo d MDM 30-39 Min Completed 09/13/2020 46937 Visual Screening Test Completed 09/13/2020 26666 Electrocardiogram Complete Compl eted 09/13/2020 25605 Screening Hearing Test Completed 08/10/2020 55068 Office/Outpatient Established Lo w MDM 20-29 Min Completed Medical Devices Description No Information Available Encounters Type Date Location Provider Dx Diagnosis Office Visit [facility]/18[facility] PA-C M54.50 Low back pain, unspecified Z13.31 Encounter for screening for depression Z23 Encounter for immunization Office Visit 12/10/2020 7:30p [facility] Kemal Villarreal D.O. M54.5 Low back pain R31.29 Other microscopic hematuria Z91.19 Patient's noncompliance w ot h medical treatment and regimen Office Visit 11/01/2020 11:50a [facility]- Lawanda Villarreal D.O. E16.2 Hypoglycemia, unspecified M54.5 Low back pain E66.01 Morbid (severe) obesity due to excess calories Z68.43 Body mass index [BMI] 50.0-5 9.9, adult Office Visit 10/18/2020 7:00p [facility] MedicineOd[facility] Villarreal D.O. M54.5 Low back pain R53.83 Other fatigue Office Visit 09/13/2020 9:00a [facility] MedicineOdilia Villarreal D.O. Z00.00 Encntr for general adult med ical exam w/o abnormal findings E66.01 Morbid (severe) obesity due to excess calories Z23 Encounter for immunization Z68.43 Body mass index [BMI] 50.0-5 9.9, adult R53.83 Other fatigue Office Visit 08/10/2020 6:30p [facility] Kemal Villarreal D.O. D50.9 Iron deficiency anemia, unsp ecified M54.5 Low back pain Assessments Date Code Description Provider 01/28/2021 K05.00 Acute gingivitis, plaque induced Kemal Villarreal D.O. 01/28/2021 M54.50 Low back pain, unspecified Kemal [...] Kemal Villarreal D.O. 11/01/2020 E16.2 Hypoglycemia, unspecified Kemal Villarreal D.O. 11/01/2020 M54.5 Low back pain Michelle Verduzco 11/01/2020 E66.01 Morbid (severe) obesity due to e xcess calories Kemal Villarreal D.O. 11/01/2020 Z68.43 Body mass index [BMI] 50.0-59.9, adult Kemal Villarreal D.O. 10/18/2020 M54.5 Low back pain Michelle Verduzco 10/18/2020 R53.83 Other fatigue Michelle Verduzco 09/13/2020 [...] 10:45 am - Kemal Villarreal D.O. at [facility] * 02/01/2021 9:20 am - Heather Martinez PA-C at [facility] 01/28/2021 - Kemal Villarreal D.O.* K05.00 Acute [...] Encouraged to follow up with the Dentist. Functional Status Description No Information Available Mental Status Description No Information Available Referrals Refer to Reason for Referral Status Appt Date [facility] Dear Doctor: To whom this m ay concern: I am referring this patient due to low back pain. With this referral you will also recieve the followin. Problem List; 2. Medication List; 3. Allergy List; 4. Last labs; 5. Last Progress Note. If you do not recieve the above, please contact our Probate Paralegal. As always, we thank you for the great service you provide to our patients. Sincerely, Kemal Villarreal DO Closed [address] [place], [place] [id number] [phone] Jay Bush Dear Doctor, This patient i [...] patient. Kemal Villarreal D.O. [facility] Recruiting Manager Closed [address] [place] [address] [phone]
--- OUTSIDE RECORDS SUMMARY | 2021-02-02 09:31 | CCD ---
Author Author [facility] Organization [facility] Address Unknown Phone Unavailable Support Name Relationship Address Phone SHAYNE FIELD Next Of Kin [address] [place] [address] [facility] Next Of Kin [address] [place] [address] [facility] SHELTER, HOUSEKEEPING Next Of Kin Unknown Unavailable MORNING STAR SHELTER Next Of [place], [place] [address] WALTER OSW Next Of Kin [address] [address] FRANCISCOHAYLEEE Next Of Kin [address] [place] [address] NOT EMPLOYED, NOT EMPLOYED Next Of Kin Unknown Unav ailable CONTACT, NO Next Of Kin Unknown Unavailable DOESN'T WISH, TO LIST Next Of Kin Unknown Unavailab le U Next Of Kin Unknown Unavailable None, Pt Per Next Of Kin - -, - - - ELTON DEGROOT Next Of Kin Unknown NI DEGROOT Next Of Kin [address] [address] NO, ONE Next Of Kin Unknown UE Next Of Kin Unknown Unavailable ALESSANDRO YIN Next Of Kin Unknown DOES, WISH TO LIST NOT Next Of Kin [address] [place] [address] PT DOES NOT, TO LIST WISH Next Of Kin N N N, N N Unavailable NO ONE, PATIENT DECL PER Next Of Kin Unknown Unavail able NO ONE, DECLINED [id number] PER PATIENT Next Of Kin Unknown Unavailable DECLINED [id number], DECLINED [id number] PT Next Of Kin Unknown Unavailable ALESSANDRO CAMPBELL Next Of Kin [address] [place] [id number] D [id number], DECLINED [id number] PT Next Of Kin Unknown Eun vailable D [id number], PT DECLINED [id number] Next Of Kin "" "", "" Unavailable DOES NOT, TO LIST WISH Next Of Kin [address] [place] [address] SONALI MONIQUEE Next Of Kin Unknown UN Next Of Kin Unknown Unavailable DONOVAN FLEMING Next Of Kin [address] [address] MARJORIE FLEMING Next Of Kin [address] [place] [address] N/ADONOVAN Next Of Kin Unknown PATRICK ROSS Next Of Kin [address] [phone] PATRICK MCCLELLAN Next Of Kin [address] [address] PATRICK HIGHTOWER Next Of Kin [address] [address] HILARIA BUTCHER Next Of Kin [address] [place] [address] [phone] NA, NA Next Of Kin Unknown Unavailable DISABLED Next Of Kin [address] [place], [place] [id number] [facility] Next Of Kin [address] [place] [address] DONOVAN FLEMING Next Of Kin [address] [address] REYES MAN Next Of Kin [address] [place] [address] UNEMPLOYED Next Of Kin [address] [place] [phone] HILARIA LEYVA Next Of Kin [address] [place] [address] [employer] [address] [phone] Care Team Providers Care Charging Car Operator Name Role Phone Darlene Hawley LAWN SPECIALIST Unavailable Unavailable Flutriston Darlene LAWN SPECIALIST Unavailable Unavailable Flutriston Darlene LAWN SPECIALIST Unavailable Unavailable KATHY COX Unavailable Unavailable Suzette JORGE DO Unavailable Unavailable Suzette JORGE DO Unavailable Unavailable JORGE, A OMAYRA DO Unavailable Unavailable JORGE, A OMAYRA DO Unavailable Unavailable JORGE, A OMAYRA DO Unavailable Unavailable Conchitanncooper M Jerome MD Unavailable Unavailable Conchitanncooper M Jerome Unavailable Unavailable Ianncooper M Jerome Unavailable Unavailable Ianncooper M Jerome MD Unavailable Unavailable Ianncooper M Jerome MD Unavailable Unavailable Ianncooper M Jerome MD Unavailable Unavailable Ianncooper M Jerome MD Unavailable Unavailable Ianncooper M Jerome Unavailable Unavailable Ianncooper M Jerome MD Unavailable Unavailable Ianncooper M Jerome MD Unavailable Unavailable Iannolo M Jerome MD Unavailable Unavailable Ianncooper M Jerome MD Unavailable Unavailable Ianncooper M Jerome MD Unavailable Unavailable Ianncooper M Jerome Unavailable Unavailable Ianncooper M Jerome Unavailable Unavailable Ianncooper M Jerome Unavailable Unavailable Ianncooper M Jerome MD Unavailable Unavailable Ianncooper M Jerome MD Unavailable Unavailable Iannolo M Jerome MD Unavailable Unavailable Ianncooper M Jerome MD Unavailable Unavailable Conchitanncooper M Jerome MD Unavailable Unavailable Ianncooper M Jerome MD Unavailable Unavailable Iannolo M Jerome MD Unavailable Unavailable Ianncooper M Jerome MD Unavailable Unavailable Iannolo M Jerome MD Unavailable Unavailable Ianncooper M Jerome MD Unavailable Unavailable Conchitanncooper M Jerome MD Unavailable Unavailable Ianncooper M Jerome MD Unavailable Unavailable Ianncooper M Jerome MD Unavailable Unavailable Ianncooper M Jerome MD Unavailable Unavailable Iannolo M Jerome MD Unavailable Unavailable Iannolo M Jerome MD Unavailable Unavailable Ianncooper M Jerome MD Unavailable Unavailable Ianncooper M Jerome MD Unavailable Unavailable Ianncooper M Jerome MD Unavailable Unavailable Iannolo M Jerome MD Unavailable Unavailable Iannolo M Jerome MD Unavailable Unavailable Iannolo, M Jerome MD Unavailable Unavailable Iannolo M Jerome MD Unavailable Unavailable Iannolo M Jerome MD Unavailable Unavailable Iannolo M Jerome MD Unavailable Unavailable Iannolo M Jerome MD Unavailable Unavailable Iannolo M Jerome MD Unavailable Unavailable Iannolo, M Jerome MD Unavailable Unavailable Iannolo, M Jerome MD Unavailable Unavailable Iannolo M Jerome Unavailable Unavailable Iannolo M Jerome MD Unavailable Unavailable Iannolo M Jerome Unavailable Unavailable Iannolo, M Jerome MD Unavailable Unavailable Gaetano Paige MD Unavailable Unavailable Gaetano Paige MD Unavailable Unavailable Gaetano Paige MD Unavailable Unavailable Gaetano Paige MD Unavailable Unavailable Gaetano Paige MD Unavailable Unavailable Gaetano Paige MD Unavailable Unavailable Gaetano Paige MD Unavailable Unavailable Gaetano Paige MD Unavailable Unavailable Gaetano Paige MD Unavailable Unavailable Gaetano Paige MD Unavailable Unavailable AZIZADeric MD Unavailable Unavailable AZIZADeric MD Unavailable Unavailable AZIZA, Deric ACOSTA MD Unavailable Unavailable AZIZA, S DAVE ONEILL Unavailable Unavailable AZIZA, S DAVE ONEILL Unavailable Unavailable AZIZA, S DAVE ONEILL Unavailable Unavailable AZIZA, S DAVE ONEILL Unavailable Unavailable AZIZA, S DAVE ONEILL Unavailable Unavailable AZIZA, S DAVE ONEILL Unavailable Unavailable AZIZA, S DAVE ONEILL Unavailable Unavailable AZIZA, S DAVE ONEILL Unavailable Unavailable AZIZA, S DAVE ONEILL Unavailable Unavailable AZIZA, S DAVE ONEILL Unavailable Unavailable AZIZA, Deric ACOSTA MD Unavailable Unavailable AZIZA, S DAVE ONEILL Unavailable Unavailable AZIZA, S DAVE ONEILL Unavailable Unavailable AZIZA, S DAVE ONEILL Unavailable Unavailable AZIZA, S DAVE ONEILL Unavailable Unavailable AZIZA, S DAVE ONEILL Unavailable Unavailable AZIZA, S DAVE ONEILL Unavailable Unavailable AZIZA, S DAVE ONEILL Unavailable Unavailable AZIZA, S DAVE ONEILL Unavailable Unavailable AZIZA, S DAVE ONEILL Unavailable Unavailable AZIZA, Deric ACOSTA MD Unavailable Unavailable AZIZA, S DAVE ONEILL Unavailable Unavailable AZIZA, Deric ACOSTA MD Unavailable Unavailable AZIZA, S DAVE ONEILL Unavailable Unavailable AZIZA, S DAVE ONEILL Unavailable Unavailable AZIZA, S DAVE ONEILL Unavailable Unavailable Mix, Emily PA Unavailable Unavailable Mix, Emily PA Unavailable Unavailable Mix, Emily PA Unavailable Unavailable Mix, Emily PA Unavailable Unavailable Mix, Emily PA Unavailable Unavailable Mix, Emily PA Unavailable Unavailable Mix, Emily PA Unavailable Unavailable Tyler Moreno MD Unavailable Unavailable CALVILLO ., PHANI DO Unavailable Unavailable CALVILLO ., PHANI DO Unavailable Unavailable Schnapp, S Lico Unavailable Unavailable [...] Unavailable Unavailable Schnapp, S Lico Unavailable Unavailable MYLES LEE MD Unavailable Unavailable MYLES LEE MD Unavailable Unavailable MYLES LEE MD Unavailable Unavailable MYLES LEE MD Unavailable Unavailable MYLES LEE MD Unavailable Unavailable MYLES LEE MD Unavailable Unavailable MYLES LEE MD Unavailable Unavailable MYLES LEE MD Unavailable Unavailable MYLES LEE MD Unavailable Unavailable Emeterio, Gladys Unavailable + Emeterio, Gladys Unavailable + Emeterio, Gladys Unavailable + Emeterio, Gladys Unavailable + LEÓN BUTLER VIKRAM Unavailable Unavailable Suzette Carolina MD Unavailable Unavailable Alvaro, Susan Adorno MD Unavailable Unavailable Alvaro, Susan Adorno MD Unavailable Unavailable Alvaro, Susan Adorno MD Unavailable Unavailable Alvaro, Susan Adorno MD Unavailable Unavailable Susan John MD Unavailable Unavailable VIRDEE, S RAMESH MD Unavailable Unavailable VIRDEE, S RAMESH MD Unavailable Unavailable VIRDEE, S RAMESH MD Unavailable Unavailable Other, Other Unavailable Unavailable ADDIS DEVONTE Unavailable Unavailable Oliveros, K Joesph MD Unavailable [...] Unavailable Unavailable NANI MOSQUERA MD Unavailable Unavailable ManddanielsAnjali Herman MD Unavailable Unavailable Mandanas, Anjali Herman MD Unavailable Unavailable MandanasAnjali Herman MD Unavailable Unavailable MandanasAnjali Herman MD Unavailable Unavailable Mandanas, Anjali Herman MD Unavailable Unavailable Mandanas, Anjali Herman MD Unavailable Unavailable Mandanas, Anjali Herman MD Unavailable Unavailable Mandanas, Anjali Herman MD Unavailable Unavailable Mandanas, Yap Herman MD Unavailable Unavailable Mandanas, Yap Herman MD Unavailable Unavailable Mandanas, Yap Herman MD Unavailable Unavailable Mandanas, Yap Herman MD Unavailable Unavailable Mandanas, Yap Herman MD Unavailable Unavailable Mandanas, Yap Herman MD Unavailable Unavailable Mandanas, Yap Herman MD Unavailable Unavailable Mandanas, Yap Herman MD Unavailable Unavailable Mandanas, Yap Herman MD Unavailable Unavailable Mandanas, Yap Herman MD Unavailable Unavailable Mandanas, Yap Herman MD Unavailable Unavailable Mandanas, Anjali Herman MD Unavailable Unavailable Mandanas, Yap Herman MD Unavailable Unavailable Mandanas, Yap Herman MD Unavailable Unavailable Mandanas, Anjali Herman MD Unavailable Unavailable Mandanas, Anjali Herman MD Unavailable Unavailable Mandanas, Yap Herman MD Unavailable Unavailable Mandanas, Yap Herman MD Unavailable Unavailable Mandanas, Yap Herman MD Unavailable Unavailable Mandanas, Yap Herman MD Unavailable Unavailable Mandanas, Yap Herman MD Unavailable Unavailable Mandanas, Yap Herman MD Unavailable Unavailable Mandanas, Yap Herman MD Unavailable Unavailable Mandanas, Yap Herman MD Unavailable Unavailable Mandanas, Yap Herman MD Unavailable Unavailable Mandanas, Yap Herman [...] Unavailable Unavailable Sarah BethmastDuglas MD Unavailable Unavailable StephaniestDuglas MD Unavailable Unavailable StephaniestDuglas MD Unavailable Unavailable Sarah BethmastDuglas MD Unavailable Unavailable Sarah BethmastDuglas MD Unavailable Unavailable SarmastDuglas MD Unavailable Unavailable Sarah BethmastDuglas MD Unavailable Unavailable Sarah BethmastDuglas MD Unavailable Unavailable Courtney JHAVERI MD Unavailable Unavailable Courtney JHAVERI MD Unavailable Unavailable Courtney JHAVERI MD Unavailable Unavailable Courtney JHAVERI MD Unavailable Unavailable Courtney JHAVERI MD Unavailable Unavailable Courtney JHAVERI MD Unavailable Unavailable Springall, L Milena WEAVER [employer] Unavailable Unavailable Springall, L Milena WE[employer] Unavailable Unavailable Springall, L Milena WEAVER [employer] Unavailable Unavailable Springall, L Milena WEAVER [employer] Unavailable Unavailable Springall, L Milena WE[employer] Unavailable Unavailable Springall, L Milena WEAV[employer] Unavailable Unavailable Springall, L Milena WE[employer] Unavailable Unavailable Springall, L Milena WEAVER [employer] Unavailable Unavailable Springall, L Milena WE[employer] Unavailable Unavailable Springall, L Milena WE[employer] Unavailable Unavailable Springall, L Milena WE[employer] Unavailable Unavailable Springall, L Milena WE[employer] Unavailable Unavailable Springall, L Milena WE[employer] Unavailable Unavailable Springall, L Milena WE[employer] Unavailable Unavailable Springall, L Milena [employer] Unavailable Unavailable Springall, L Milena WE[employer] Unavailable Unavailable Springall, L Milena WE[employer] Unavailable Unavailable Springall, L Milena WE[employer] Unavailable Unavailable Springall, L Milena WE[employer] Unavailable Unavailable YEN, LI-HSIANG Unavailable Unavailable DIANE, J FORTUNATO DO Unavailable [...] Unavailable DIANE, J FORTUNATO DO Unavailable Unavailable Andrew, Courtney Riojas MD [...] Unavailable Andrew, Courtney Riojas MD Unavailable Unavailable TRUDY HINTON Unavailable [phone] HINTON, TRUDY Unavailable [phone] HINTON, TRUDY Unavailable [phone] HINTON, TRUDY Unavailable [phone] HINTON, TRUDY Unavailable [phone] HINTON, TRUDY Unavailable [phone] HINTON, TRUDY Unavailable [phone] HINTON, TRUDY Unavailable [phone] HINTON, TRUDY Unavailable [phone] HINTON, TRUDY Unavailable [phone] HINTON, TRUDY Unavailable [phone] HINTON, TRUDY Unavailable [phone] Beatriz JASSO PA-C Unavailable Unavailable Beatriz JASSO PA-C Unavailable Unavailable Beatriz JASSO PA-C Unavailable Unavailable Isaac ARELLANO MD Unavailable Unavailable Dilia, Elton Unavailable Unavailable Dilia, Elton Unavailable Unavailable Dilia, Elton Unavailable Unavailable Dilia, Elton Unavailable Unavailable Dilia, Elton Unavailable Unavailable Dilia, Elton Unavailable Unavailable DEVON, C EDGARDO PA Unavailable [...] Unavailable DIANE, J FORTUNATO DO Unavailable Unavailable KathrynDeric hernandez MD Unavailable Unavailable Kathryn, Deric Montana MD Unavailable Unavailable Kathryn, Deric Montana MD Unavailable Unavailable Kathryn, Deric Montana MD Unavailable Unavailable Kathryn, Deric Montana MD Unavailable Unavailable Kathryn, Deric Montana MD Unavailable Unavailable Kathryn, Deric Montana MD Unavailable Unavailable Kathryn, Deric Montana MD Unavailable Unavailable Kathryn, Deric Montana MD Unavailable Unavailable KathrynDeric hernandez MD Unavailable Unavailable Suzette BAKER MD Unavailable Unavailable Suzette BAKER MD Unavailable Unavailable Suzette BAKER MD Unavailable Unavailable Suzette BAKER MD Unavailable Unavailable Suzette BAKER MD Unavailable Unavailable Suzette BAKER MD Unavailable Unavailable Suzette BAKER MD Unavailable Unavailable Suzette BAKER MD Unavailable Unavailable Desmond Calhoun MD Unavailable Unavailable AMILCAR, G ONOFRE DO Unavailable [...] Unavailable AMILCAR, G ONOFRE DO Unavailable Unavailable AMICLAR, G ONOFRE DO Unavailable Unavailable AMILCAR, G [...] Unavailable AMILCAR, G ONOFRE DO Unavailable Unavailable PHYSICIAN, PHYSICIAN ER Unavailable Unavailable Estevan Rich MD Unavailable Unavailable Estevan Rich MD Unavailable Unavailable Estevan Rich MD Unavailable Unavailable Estevan Rich MD Unavailable Unavailable Estevan Rich MD Unavailable Unavailable Estevan Rich MD Unavailable Unavailable Estevan Rich MD Unavailable Unavailable Estevan Rich MD Unavailable Unavailable LaylaEstevan MD Unavailable Unavailable Layla, Estevan ONEILL Unavailable Unavailable Layla, Estevan ONEILL Unavailable Unavailable Layla, Estevan ONEILL Unavailable Unavailable Layla, Estevan ONEILL Unavailable Unavailable Layla, Estevan ONEILL Unavailable Unavailable Layla, Estevan ONEILL Unavailable Unavailable Layla, Estevan ONEILL Unavailable Unavailable Layla, Estevan ONEILL Unavailable Unavailable Layla, Estevan ONEILL Unavailable Unavailable Layla, Estevan ONEILL Unavailable Unavailable Layla, Estevan ONEILL Unavailable Unavailable Vilma, J Simon Unavailable Unavailable Vilma, J Simon Unavailable Unavailable Vilma, J Simon Unavailable Unavailable Vilma, J Simon Unavailable Unavailable Vilma, J Simon Unavailable Unavailable Vilma, J Simon Unavailable Unavailable Vilma, J Simon Unavailable Unavailable Vilma, J Simon Unavailable Unavailable REYES, T MARTI LAWN SPECIALIST Unavailable Unavailable REYES, T MARTI LAWN SPECIALIST Unavailable Unavailable REYES, T MARTI LAWN SPECIALIST Unavailable Unavailable REYES, T MARTI LAWN SPECIALIST Unavailable Unavailable REYES, T MARTI LAWN SPECIALIST Unavailable Unavailable REYES, T MARTI LAWN SPECIALIST Unavailable Unavailable REYES, T MARTI LAWN SPECIALIST Unavailable Unavailable REYES, T MARTI LAWN SPECIALIST Unavailable Unavailable REYES, T MARTI LAWN SPECIALIST Unavailable Unavailable REYES, T MARTI LAWN SPECIALIST Unavailable Unavailable REYES, T MARTI LAWN SPECIALIST Unavailable Unavailable REYES, T MARTI LAWN SPECIALIST Unavailable Unavailable REYES, T MARTI LAWN SPECIALIST Unavailable Unavailable REYES, T MARTI LAWN SPECIALIST Unavailable Unavailable REYES, T MARTI LAWN SPECIALIST Unavailable Unavailable REYES, T MARTI LAWN SPECIALIST Unavailable Unavailable REYES, T MARTI LAWN SPECIALIST Unavailable Unavailable REYES, T MARTI LAWN SPECIALIST Unavailable Unavailable REYES, T MARTI LAWN SPECIALIST Unavailable Unavailable REYES, T MARTI LAWN SPECIALIST Unavailable Unavailable REYES, T MARTI LAWN SPECIALIST Unavailable Unavailable REYES, T MARTI LAWN SPECIALIST Unavailable Unavailable REYES, T MARTI LAWN SPECIALIST Unavailable Unavailable REYES, T MARTI LAWN SPECIALIST Unavailable Unavailable REYES, T MARTI LAWN SPECIALIST Unavailable Unavailable REYES, T MARTI LAWN SPECIALIST Unavailable Unavailable REYES, T MARTI LAWN SPECIALIST Unavailable Unavailable REYES, T MARTI LAWN SPECIALIST Unavailable Unavailable REYES, T MARTI LAWN SPECIALIST Unavailable Unavailable REYES, T MARTI LAWN SPECIALIST Unavailable Unavailable REYES, T MARTI LAWN SPECIALIST Unavailable Unavailable REYES, T MARTI LAWN SPECIALIST Unavailable Unavailable REYES, T MARTI LAWN SPECIALIST Unavailable Unavailable REYES, T MARTI LAWN SPECIALIST Unavailable Unavailable REYES, T MARTI LAWN SPECIALIST Unavailable Unavailable REYES, T MARTI LAWN SPECIALIST Unavailable Unavailable REYES, T MARTI LAWN SPECIALIST Unavailable Unavailable REYES, T MARTI LAWN SPECIALIST Unavailable Unavailable REYES, T MARTI LAWN SPECIALIST Unavailable Unavailable REYES, T MARTI LAWN SPECIALIST Unavailable Unavailable EMERGENCY, SERVICES MEDICAL Unavailable Unavailable [...] is protected by Article 27-F of the [facility] Public Health law. If you continue you may have access to information: Regarding HIV / AIDS; Provided by facilities licensed or operated by the [facility] Office of Mental Health; or Provided by the [facility] Office for People With Developmental Disabilities. If such information is present, then the following [facility] mandated warning applies: This information has been [...] law may result in a fine or retirement sentence or both. A general authorization for the release of medical or other information is NOT sufficient authorization for further disc losure. Allergies and Adverse Reactions Type Description Substance Reaction Status Data Source(s ) Drug allergy Motrin Motrin on blood thinner [facility] Drug allergy ibuprofen Ibuprofen contraindication with blood thinne [facility] Drug allergy Penicillins Penicillin RASH/HIVES [place] [facility] Drug allergy ibuprofen ibuprofen contraindication with blood thinne r [facility] Drug allergy Penicillins Penicillins RASH/HIVES [facility] Family History Family Member Name Family Member Gender Family Member Status Date o f Status Description Data Source(s) Unknown [facility] Unknown Male [facility] Unknown [facility] Encounters [facility]counter Providers Location Date Indications Data Source(s ) Outpatient Attender: FORTUNATO CONTRERAS DO [facility] 01/28/2021 04:45:00 PM EST [facility] Outpatient Attender: Emily Smith tender: Sierra Elder DOAdmitter: Sierra Elder DOConsultant: Sierra Elder DOConsultant: Emily Cook [place] OUTPATIENT-EMERGENCY 01/26/2021 09:32:00 AM EST - 01/26/2021 12:09:00 PM [facility] Patient discharged. Emergency Attender: Kyree John MD 2020 01:30:00 PM EDT - 12/31/2020 02:12:00 PM EDT [facility] Patient discharged. Outpatient Attender: TRDUY HINTON [facility] 01:00:00 PM EDT [facility] Outpatient Attender: FORTUNATO CONTRERAS DO [facility] 12/10/2020 07:30:00 PM EDT [facility] Outpatient Attender: Jerome Paige MDAt tender: Maikel Peralta MDAttender: SONIA BAKER MDAdmitter: Jerome Iakin MDConsultant: LEÓN CAM OUTPATIENT-EMERGENCY 12/06/2020 01:52:00 PM EDT - 12/06/2020 08:20:00 PM EDT [facility] Patient discharged. Emergency Attender: PHANI CALVILLO .Attender: Elton Dobbs 12/03/2020 02:42:00 PM EDT - 12/03/2020 08:30:00 PM EDT [facility] Patient discharged. Unknown [address] [facility] [address] 11/09/2020 12:00:00 AM EDT eCW1 ([facility]) Referrer: FORTUNATO CONTRERAS DO 11/02/2020 08:21:08 PM EDT [facility] Outpatient Attender: FORTUNATO CONTRERAS DO [facility] 11/01/2020 11:50:00 AM EDT [facility] ([facility] Referrer: FORTUNATO CONTRERAS DO 10/29/2020 08:21:08 PM EDT [facility] Referrer: FORTUNATO CONTRERAS DO 10/29/2020 08:21:08 PM EDT [facility] Referrer: FORTUNATO CONTRERAS DO 10/29/2020 08:21:08 PM EDT [facility] Referrer: FORTUNATO CONTRERAS DO 10/29/2020 08:21:08 PM EDT [facility] Outpatient Attender: FORTUNATO CONTRERAS DO [facility] 10/18/2020 07:00:00 PM EDT [facility] Outpatient Attender: SONIA BAKER MDA dmitter: SONIA BAKER MDConsultant: SONIA BAKER MD OUTPATIENT-ER 10/17/2020 05:55:00 PM EDT - 10/17/2020 08:44:00 PM EDT [facility] Patient discharged. Outpatient Attender: FORTUNATO CONTRERAS DO 10/06/2020 08:50:00 AM EDT [facility] Emergency Attender: Kyree John MD 2020 08:01:00 AM EDT - 10/06/2020 08:32:00 AM EDT Left Side Pain [facility] Left Side Pain Patient discharged. Outpatient Attender: Gladys Storm 09/29/19 01:35:14 PM EDT - 09/28/2020 01:52:44 PM EDT [facility] ([facility] ) Outpatient Attender: Jerome Mackey tender: EDGARDO JERNIGANttender: SONIA BAKER MDAdmitter: Jerome Paige MDConsultant: Jerome Paige MDConsultant: EDGARDO DIAZ OUTPATIENT-ER 09/21/2020 06:39:00 PM EDT - 09/21/2020 08:44:00 PM EDT [facility] Patient discharged. Outpatient Attender: SONIA BAKER MDA dmitter: SONIA BAKER MDConsultant: SONIA BAKER MD OUTPATIENT-EMERGENCY 09/17/2020 02:09:00 PM EDT - 09/17/2020 06:12:00 PM EDT [facility] Patient discharged. Outpatient Attender: FORTUNATO CONTRERAS DO [facility] 09/13/2020 09:00:00 AM EDT [facility] ([facility] Outpatient Attender: Darlene ARVIZU 09/06/2020 11 :01:[address] [facility] Outpatient Attender: PRAKASH Nesbitt jenny: Sierra Elder DOAdmitter: Sierra Elder DOConsultant: PRAKASH JASSO PA-C OUTPATIENT-UNKNOWN_LOCATION 08/19/2020 04:21:00 PM EDT - 08/19/2020 07:45:00 PM [facility]T [facility]. Outpatient Attender: Emily Smith tender: SONIA BAKER MDAdmitter: SONIA BAKER MDConsultant: LI-HSIANG YEN OUTPATIENT-EMERGENCY 08/15/2020 02:30:00 PM EDT - 08/15/2020 08:11:00 PM [facility]. Outpatient Attender: FORTUNATO CONTRERAS DO [facility] 08/10/2020 06:30:00 PM EDT [facility] ([facility] Outpatient Attender: Stuart Ge MDAttender: Other Other 08/06/2020 08:25:00 AM EDT lab [facility] lab Outpatient Attender: Stuart [place] MDAttender: Other Other 07/31/2020 03:48:00 PM EDT [facility] 2 of 2 [facility] 2 of 2 Outpatient Attender: FORTUNATO CONTRERAS DO 07/31/2020 03:28:00 PM EDT [facility] Outpatient Attender: TRUDY HINTON [facility] 07/26/2020 02:30:00 PM EDT [facility] ([facility]) Emergency Attender: Estevan Rich MD 021 01:45:00 PM EDT - 07/25/2020 05:35:00 PM EDT [facility] Patient discharged. Outpatient Attender: Maikel Salter DAttender: SONIA BAKER MDAdmitter: Maikel Peralta MD OUTPATIENT-ER 07/16/2020 12:14:00 PM EDT - 07/16/2020 02:05:00 PM EDT [facility] Patient discharged. Emergency Attender: MEDICAL EMERGENCY 06/14 11:44:00 AM EDT - 07/02/2020 01:12:00 PM EDT [facility] Emergency Attender: MEDICAL [facility]ERGENCY [facility] 06/14 11:44:00 AM EDT - 07/02/2020 01:12:00 PM EDT [facility] Patient discharged. Outpatient Attender: PRAKASH Nesbitt jenny: MYLES LEE MDAdmitter: MYLES LEE MDConsultant: PRAKASH JASSO PA-C OUTPATIENT-EMERGENCY 06/28/2020 10: 20:00 AM EDT - 06/28/2020 03:44:00 PM EDT [facility] Patient discharged. Outpatient Attender: FORTUNATO CONTRERAS DO [facility] 06/26/2020 11:00:00 AM EDT [facility] ([facility]) EMERGENCY Attender: Joesph Oliveros MD 2E-ED 06/21 10:41:00 AM EDT - 06/21/2020 03:02:[address] [facility] Patient discharged. Outpatient Attender: MYLES LEE MDA dmitter: MYLES LEE MDConsultant: MYLES LEE MDConsultant: Emily DIAZ OUTPATIENT-EMERGENCY 06/21/19 07:55:00 AM EDT - 06/20/2020 11:07:00 AM EDT [facility] Patient discharged. Outpatient Attender: FORTUNATO MCNAMARAANA DO [facility] 06/11/2020 11:30:00 AM EDT [facility] ([facility]) Outpatient Attender: TRUDY HINTON [facility] 06/04/2020 02:00:00 PM EDT [facility] ([facility] Outpatient Attender: TRUDY HINTON [facility] 05/28/2020 01:00:00 PM EDT [facility] ([facility] Outpatient Attender: FORTUNATO CONTRERAS [facility] 05/25/2020 07:30:00 PM EST [facility] ([facility] Emergency Attender: MCKAYLA JHAVERI MD ES1-ES1 10/2020 12:00:00 PM EST - 05/21/2020 05:14:00 PM EST [facility] Patient discharged. Emergency Attender: BARTOLO ARELLANO MD ES1-ES1 02:52:00 PM EST - 05/16/2020 09:10:00 PM EST [facility] Patient discharged. Emergency Attender: Kyree John MD 2020 10:30:00 AM EST - 05/11/2020 12:47:00 PM EST L Sided ABD Pain [facility] L Sided ABD Pain Patient discharged. Outpatient Attender: MARTI MOTTP 04/17 06:02:12 PM EST - 05/06/2020 07:10:30 PM EST [facility] ([facility] ) Outpatient Attender: TRUD[facility] HINTON [facility] 04/30/2020 02:15:00 PM EST [facility]) Outpatient Attender: Sierra Glover jenny: SONIA BAKER MDAdmitter: Sierra KHANonsultant: SONIA BAKER MDConsultant: Sierra Elder DO OUTPATIENT-EMERGENCY 04/30/2020 07:01:00 AM EST - 04/30/2020 09:09:00 AM [facility] Patient discharged. Outpatient Attender: Simon Esparza 09/2020 01:05:18 PM EST - 04/22/2020 02:18:26 PM EST [facility] ([facility] ) Outpatient Attender: FORTUNATO CONTRERAS DO [facility] 04/13/2020 06:00:00 PM EST [facility] ([facility]) Outpatient Attender: EDGARDO Spencer jenny: Sierra Elder DOAdmitter: Sierra Elder DOConsultant: Sierra Elder DOConsultant: EDGARDO DIAZ OUTPATIENT-EMERGENCY 04/03/2020 01:13:00 PM EST - 04/03/2020 06:28:00 PM [facility] Patient discharged. Emergency Attender: Elton Dobbs 02:25:00 PM EST - 03/29/2020 07:34:00 PM EST Abd Pain [facility] Pain Patient discharged. Emergency ES1-ES1 03/23/2020 01:31:00 PM EST - 021 05:46:00 PM EST [facility] Patient discharged. Outpatient Attender: Sierra Glover jenny: SONIA BAKER MDAdmitter: Sierra KHANonsultant: SONIA BAKER MDConsultant: Sierra Elder DO OUTPATIENT-EMERGENCY 03/22/2020 06:45:00 AM EST - 03/22/2020 07:55:00 AM [facility] Patient discharged. Emergency Attender: Estevan Rich MD 021 03:31:00 PM EST - 03/19/2020 04:23:00 PM EST [facility] Patient discharged. Outpatient Attender: OMAYRA JORGE DOAdmitter: OMAYRA JORGE DOConsultant: ROSAURA STEPHENSConsultant: OMAYRA JORGE DO OUTPATIENT-EMERGENCY 03/06/2020 07:47:00 AM EST - 03/06/2020 11:40:00 AM [facility] Patient discharged. Outpatient Attender: EDGARDO Spencer jenny: NANI MOSQUERA MDAdmitter: NANI MOSQUERA MDConsultant: NANI EDEN MDConsultant: MENDY CASTELLONConsultant: EDGARDO DIAZ OUTPATIENT-EMERGENCY 03/03/2020 06:06:00 PM EST - 03/03/2020 09:02:00 PM [facility] Patient discharged. Emergency Attender: Estevan Rich MD 020 01:13:00 PM EST - 02/20/2020 04:45:00 PM EST Abdomen pain [facility] Abdomen pain Patient discharged. Emergency Attender: Estevan Rich MD 020 03:50:00 PM EST - 02/14/2020 06:37:00 PM EST [facility] Patient discharged. Outpatient Attender: MYLES LEE MDA ttender: Bernabe Kumar MDAdmitter: MYLES LEE MDConsultant: Desmond Lj MDConsultant: MYLES LEE MD OUTPATIENT-EMERGENCY 02/01/2020 06:19:00 AM EST - 02/01/2020 10:57:00 AM [facility] Patient discharged. Outpatient Attender: Sierra Elder DOAdm itter: Sierra Elder DOConsultant: Sierra Elder DO OUTPATIENT-EMERGENCY 01/28/2020 08:44:00 AM EST - 01/28/2020 11:11:00 AM [facility] Patient discharged. Outpatient Attender: OMAYRA JORGE DOAttender: Bernabe Kumar MDAdmitter: OMAYRA JORGE DOConsultant: OMAYRA JORGE DO OUTPATIENT-EMERGENCY 01/23/2020 06:31:00 AM EST - 01/23/2020 09:23:00 AM [facility] Patient discharged. Outpatient Attender: MYLES LEE MDA ttender: Jerome Paige MDAdmitter: Jerome Paige MDConsultant: Desmond Calhoun MDConsultant: MYLES LEE MDConsultant: Jerome Paige MD OUTPATIENT-EMERGENCY 01/20/2020 06:20:00 AM EST - 01/20/2020 11:47:00 AM [facility] Patient discharged. Outpatient Attender: OMAYRA JORGE DOAdmitter: OMAYRA JORGE DOConsultant: DEVONTE Jonessultant: Lico Huisultant: OMAYRA JORGE DO OUTPATIENT-EMERGENCY 01/18/2020 02:40:00 PM EST - 01/18/2020 07:12:00 PM [facility] Patient discharged. Outpatient Attender: Sierra Glover jenny: SONIA BAKER MDAdmitter: Sierra Elder DOConsultant: DEVONTE Haltant: Sierra Elder DOConsultant: SONIA BAKER MD OUTPATIENT-EMERGENCY 01/16/2020 06:29:00 AM EST - 01/16/2020 09:26:00 AM [facility] Patient discharged. Emergency Attender: AWA MAGANA ES1-ES1 020 07:40:00 AM EST - 01/15/2020 10:32:00 AM EST [facility] Patient discharged. Outpatient Attender: DAVE ERVIN MDReferrer: Herman saul MD 01/12/2020 09:45:00 AM EDT Right shoulder pain [facility] Right shoulder pain Emergency Attender: ER PHYSICIAN 01/05/2020 08:17:06 AM E DT Lab [facility] Emergency Attender: ANGELA WHELANAttender: ER PHYSICIAN 01/05/2020 07:30:00 AM EDT - 01/05/2020 09:42:00 AM EDT [facility] ABD PAIN Patient discharged. Emergency Attender: KATHY COX ES1-ES1 2019 08:11:00 AM EDT - 12/26/2019 11:12:00 AM EDT [facility] Patient discharged. Emergency Attender: KATHY COX ES1-ES1 2019 11:37:00 AM EDT - 12/24/2019 02:10:00 PM EDT [facility] Patient discharged. Emergency Attender: Tyler Moreno MD 12/18 01:02:00 PM EDT - 12/19/2019 04:08:00 PM EDT [facility] Abd [facility]/Injury Patient discharged. Emergency Attender: Tyler Moreno MDAttender: Estevan Rich MD 12/14/2019 02:03:00 PM EDT - 12/14/2019 04:57:00 PM EDT [facility]. Emergency Attender: Tyler Moreno MD 12/13 12:33:00 PM EDT - 12/14/2019 01:12:00 PM EDT [facility] Patient discharged. Outpatient Attender: Milena Moreno NP 12/13/2019 02:30: 00 PM EDT N92.0 [facility] N92.0 Emergency Attender: Estevan Rich MD 020 11:57:00 AM EDT - 12/02/2019 03:59:00 PM EDT Stomach Pain [facility] Stomach Pain Patient discharged. Outpatient Attender: Milena Moreno NP 12/02/2019 11:02: 00 AM EDT [facility] Outpatient Attender: Emily Cook PAAt tender: Sierra Elder DOAdmitter: Emily Mix PAConsultant: Sierra Robbinsb DOConsultant: RAMESH COLEMAN MDConsultant: Emily Mix PAConsultant: ONOFRE FITZGERALD DO OUTPATIENT-EMERGENCY 02/16/2019 02:09:00 PM EST - 02/16/2019 06:37:00 PM [facility] Patient discharged. Outpatient Attender: Duglas Duran MD 07/2018 01:27:00 PM EDT - 06/18/2018 02:00:00 PM EDT LOW BACK PAIN LEFT SHOULD[facility] LOW BACK PAIN LEFT SHOULDER Patient discharged. Functional Status Immunizations Vaccine Date Status Description Data Source(s) COVID-19 VACCINE Pfizer 01/30/2021 12:00:00 AM EST completed [facility] Vaccine Series Complete: YESThis Data wa s Submitted to [facility] Via [employer]. New in 2011. IIV4 12/18/2020 01:22:00 PM EDT completed [facility] ([facility]) MMR 09/13/2020 10:36:00 AM EDT completed M EDENT ([facility] Medicine) MMR 08/07/2020 03:29:00 PM EDT completed M EDENT ([facility]) COVID-19 VACCINE Pfizer 07/21/2020 12:00:00 AM EDT completed [facility] Vaccine Series Complete: YESThis Data wa s Submitted to [facility] Via [employer]. COVID-19 VACCINE Pfizer 06/30/2020 12:00:00 AM EDT completed [facility] Vaccine Series Complete: NOThis Data was Submitted to [facility] Via [employer]. Medications Medication Brand Name Start Date Product Form Dose Route Admi nistrative Instructions Pharmacy Instructions Status Indications Reaction Description Data Source(s) chlorhexidine gluconate 1.2 MG/ML Mouthwash Chlorhexidine Gl uconate 02/01/2021 12:00:00 AM EST active M EDENT ([facility]) Acetaminophen 325 MG / Hydrocodone Bitartrate 5 MG Ora l Tablet Hydrocodone Bitartrate/Acetaminophen 01/28/2021 12:00:00 AM EST active [facility] ([facility]) Clindamycin 150 MG Oral Capsule Clindamycin HCL 01/28/2021 12:00:00 A M EST ORAL active [facility] ([facility]) tramadol hydrochloride 50 MG Oral Tablet Tramadol HCL 12/18/2020 12:00:00 AM EDT completed [facility] ([facility]) topiramate 50 MG Oral Tablet Topiramate 12/10/2020 12:00:00 AM EDT ORAL completed [facility] ([facility]) pregabalin 75 MG Oral Capsule [Lyrica] Lyrica 12/10/2020 12:00:00 AM EDT ORAL completed [facility] ([facility]) topiramate 25 MG Oral Tablet Topiramate 11/01/2020 12:00:00 AM EDT ORAL completed [facility] ([facility]) tizanidine 4 MG Oral Capsule Tizanidine HCL 10/18/2020 12:00:00 AM EDT ORAL completed [facility] ([facility] Sulfamethoxazole 800 MG / Trimethoprim 160 MG Oral Tab let Sulfamethoxazole/Trimethoprim DS 09/13/2020 12:00:00 AM EDT ORAL completed [facility] ([facility]) cetirizine hydrochloride 10 MG Oral Tablet Cetirizine HCL 07/26/2020 12:00:00 AM EDT ORAL active [facility] ([facility] Acetaminophen 325 MG / Hydrocodone Bitartrate 5 MG Ora l Tablet Hydrocodone-Acetaminophen 07/26/2020 12:00:00 AM EDT completed [facility] ([facility]) Sulfamethoxazole 800 MG / Trimethoprim 160 MG Oral Tab let Sulfamethoxazole/Trimethoprim DS 07/26/2020 12:00:00 AM EDT ORAL completed [facility] ([facility]) Acetaminophen 325 MG / Oxycodone Hydroch loride 5 MG Oral Tablet acetaminophen 325 MG / oxycodone hydrochloride 5 MG Oral Tablet acetaminophen 325 MG / oxycodone hydrochloride 5 MG Oral Tablet 06/28/2020 12:00:00 AM EDT 1 oral completed acetaminophen 325 MG / oxyco done hydrochloride 5 MG Oral Tablet [facility] Clindamycin 300 MG Oral Capsule clindamycin 300 MG Ora l Capsule clindamycin 300 MG Oral Capsule 06/26/2020 12:00:00 AM EDT 300 mg oral ac tive clindamycin 300 MG Oral Capsule [facility] Clindamycin 300 MG Oral Capsule clindamycin 300 MG Ora l Capsule clindamycin 300 MG Oral Capsule 06/26/2020 12:00:00 AM EDT 300 mg oral co mpleted clindamycin 300 MG Oral Capsule [facility] Clindamycin 300 MG Oral Capsule Clindamycin HCL 06/26/2020 12:00:00 A M EDT ORAL completed [facility] ([facility] Methocarbamol 500 MG Oral Tablet Methocarbamol 06/26/2020 12:00:00 AM EDT ORAL completed [facility] ([facility] Rocephin (Ceftriaxone) 1 Gram 06/04/2020 12:00:00 AM EDT completed [facility] Medication administered onsite Sulfamethoxazole 800 MG / Trimethoprim 160 MG Oral Tablet [B actrim] Bactrim DS 06/04/2020 12:00:00 AM EDT ORAL completed [facility] ([facility]) 12 HR Loratadine 5 MG / Pseudoephedrine sulfate 120 MG Extended Release Oral Tablet [Claritin-D] Claritin-D 12 Hour 06/04/2020 12:00:00 AM EDT ORAL completed [facility] ([facility]) Clindamycin 150 MG Oral Capsule Clindamycin HCL 05/25/2020 12:00:00 A M EST completed [facility] ([facility]) Acetaminophen 325 MG / Hydrocodone Bitartrate 5 MG Ora l Tablet Hydrocodone Bitartrate/Acetaminophen 05/25/2020 12:00:00 AM EST completed [facility] ([facility]) Baclofen 10 MG Oral Tablet Baclofen 04/30/2020 12:00:00 AM EST ORAL completed [facility] ([facility]) Mirtazapine 15 MG Oral Tablet Mirtazapine 04/13/2020 12:00:00 AM EST ORAL completed [facility] ([facility]) buspirone hydrochloride 10 MG Oral Tablet Buspirone HCL 04/13/2020 12:00:00 AM EST ORAL completed [facility] ([facility]) 0.8 ML Enoxaparin sodium 150 MG/ML Prefilled Syringe [Loveno x] Lovenox 04/13/2020 12:00:00 AM EST active [facility] ([facility]) levocetirizine dihydrochloride 5 MG Oral Tablet Levocetirizi ne Dihydrochloride 04/13/2020 12:00:00 AM EST ORAL completed [facility] ([facility]) venlafaxine 37.5 MG Oral Tablet Venlafaxine HCL 04/13/2020 12:00:00 A M EST ORAL completed [facility] ([facility]) Acetaminophen 325 MG / Hydrocodone Christina trate 5 MG Oral Tablet acetaminophen 325 MG / hydrocodone bitartrate 5 MG Oral Tablet acetaminophen 325 MG / hydrocodone bitartrate 5 MG Oral Tablet 01/18/2020 12:00:00 AM EST 1 oral completed acetaminophen 325 MG / hydrocodone christina trate 5 MG Oral Tablet [facility] Acetaminophen 325 MG / Hydrocodone Christina trate 5 MG Oral Tablet acetaminophen 325 MG / hydrocodone bitartrate 5 MG Oral Tablet acetaminophen 325 MG / hydrocodone bitartrate 5 MG Oral Tablet 01/18/2020 12:00:00 AM EST 1 oral active acetaminophen 325 MG / hydrocodone bitartrate 5 MG Oral Tablet [facility] Acetaminophen 325 MG / Hydrocodone Christina trate 5 MG Oral Tablet acetaminophen 325 MG / hydrocodone bitartrate 5 MG Oral Tablet acetaminophen 325 MG / hydrocodone bitartrate 5 MG Oral Tablet 01/18/2020 12:00:00 AM EST 1 oral active acetaminophen 325 MG / hydrocodone bitartrate 5 MG Oral Tablet [facility] Acetaminophen 325 MG / Hydrocodone Christina trate 5 MG Oral Tablet acetaminophen 325 MG / hydrocodone bitartrate 5 MG Oral Tablet acetaminophen 325 MG / hydrocodone bitartrate 5 MG Oral Tablet 01/18/2020 12:00:00 AM EST 1 oral active acetaminophen 325 MG / hydrocodone bitartrate 5 MG Oral Tablet [facility] Phenazopyridine hydrochloride 200 MG Ora l Tablet phenazopyridine hydrochloride 200 MG Oral Tablet phenazopyridine hydrochloride 200 MG Oral Tablet 01/16 12:00:00 AM EST 200 mg oral active phenazopyridine hydrochloride 200 MG Oral Tablet [facility] Phenazopyridine hydrochloride 200 MG Ora l Tablet phenazopyridine hydrochloride 200 MG Oral Tablet phenazopyridine hydrochloride 200 MG Oral Tablet 01/16 12:00:00 AM EST 200 mg oral completed phenazopyridine hydrochloride 200 MG Oral Tablet [facility] Phenazopyridine hydrochloride 200 MG Ora l Tablet phenazopyridine hydrochloride 200 MG Oral Tablet phenazopyridine hydrochloride 200 MG Oral Tablet 01/16 12:00:00 AM EST 200 mg oral active phenazopyridine hydrochloride 200 MG Oral Tablet [facility] cefpodoxime 100 MG Oral Tablet cefpodoxime 100 MG Oral Table t 01/16/2020 12:00:00 AM EST 100 mg oral completed cefpo doxime 100 MG Oral Tablet [facility] Acetaminophen 325 MG Oral Tablet acetaminophen (TYLENO L) 325 MG tablet 975 mg acetaminophen (TYLENOL) 325 MG tablet 975 mg 01/15/2020 08:50:00 AM EST 975 mg Oral completed 975 mg, Or al, Once, 01/15/20 at 0850, For 1 dose
"Maximum dose of acetaminophen is 4,000 mg from all sources in 24 hours."
[facility] Medication administered onsite Insurance Providers Payer name Policy type / Coverage type Policy ID Covered green party ID Covered green party's relationship to curtis Policy Curtis Plan Information FRANCIS GOLDEN MCAID [id number] Patient is Insured [id number] FRANCIS [id number] Patient [id number] SELF PAY SELF Patient SELF PERSONAL PAY UNAVAILABLE SELF UNAVA ILABLE SELF PAY NOTNEEDED Patient is Insured N OTNEEDED MEDICAID [id number] Patient is Insured B [id number] FRANCIS CARE DIRECT PCP [id number] Patient is Ins ured [id number] FRANCIS [id number] SELF [id number] 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 DEVON WALTER [id number] SELF [id number] MEDICAID UNAVAILABLE Patient is Insured UNAVAILABLE 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 DEVON WALTER UNAVAILABLE SELF UNAVAILABLE MEDICARE 4 [id number] MEDICARE 4 [id number] TOTAL CARE [id number] Patient is Insured [id number] [facility] [id number] Patient is Insured [id number] FRANCIS MEDICARE ADV [id number] SP [id number] [facility] MED 11 [id number] MEDICAID [id number] Self [id number] MEDICAID [id number] Edita [id number] GENERIC MEDICAID HMO [id number] Self [id number] TOTAL CARE I [id number] Self [id number] Total Care Commercial [id number] Self TOTAL CARE MEDICAID/[facility]AR[facility] [id number] Edita [id number] TOTAL CARE MEDICAID/[facility]ARO [id number] Edita [id number] TOTAL CARE MEDICAID [id number] Edita [id number] TODAY'S OPTIONS OF [facility] [place] [id number] SP [id number] [place]ID [place] [id number] SP [id number] TODAY'S OPTIONS OF [place] [id number] SP [id number] TOTAL CARE I [id number] Self [id number] [facility] I [id number] Self BF [id number] [facility] I [id number] Self BF [id number] [facility] [id number] SP BF [id number] [facility] [id number] SP BF [id number] .[facility] [id number] SP [id number] [facility] [id number] SP BF [id number] [facility] [id number] SP BF [id number] MEDICAID [id number] Edita [id number] MEDICAID [id number] [id number] [facility] [id number] SP BF [id number] [facility] [id number] SP BF [id number] [facility] [id number] SP BF [id number] FRANCIS MEDICAID [id number] [id number] FRANCIS [id number] SP [id number] FRANCIS I [id number] Self [id number] FRANCIS MEDICAID [id number] Edita [id number] FRANCIS [id number] Self [id number] FRANCIS I [id number] Self [id number] FRANCIS I [id number] Self [id number] [facility] C[facility] [place] [id number] Self [id number] FRANCIS [id number] xxxxxxxxxxx [id number] FRANCIS CARE [facility] [id number] S [id number] [facility] [id number] Self [id number] MEDICAID MANAGED CARE GENERIC I Self FRANCIS [id number] SP [id number] SELF PAY SELF PAY FRANCIS [id number] SP [id number] 400 SELF PAY FRANCIS [id number] SP [id number] 400 FRANCIS [id number] SP [id number] 400 SELF PAY [place] Medicaid F [id number] SELF 7 [id number] [place] Medicaid F [id number] SELF 7 [id number] FRANCIS [id number] SP [id number] 400 SELF PAY FRANCIS [id number] SP [id number] 400 SELF PAY SELF PAY FRANCIS [id number] SP [id number] 400 FRANCIS [id number] SP [id number] 400 SELF PAY SELF PAY FRANCIS [id number] SP [id number] 400 SELF PAY FRANCIS [id number] SP [id number] 400 FRANCIS [id number] SP [id number] 400 SELF PAY SELF PAY FRANCIS [id number] SP [id number] 400 FRANCIS [id number] SP [id number] 400 FRANCIS [id number] SP [id number] SELF PAY FRANCIS [id number] SP [id number] 400 SELF PAY FRANCIS [id number] SP [id number] FRANCIS [id number] SP [id number] 400 SELF PAY FRANCIS [id number] SP [id number] 400 SELF PAY SELF PAY FRANCIS [id number] SP [id number] 400 SELF PAY FRANCIS [id number] SP [id number] 400 FRANCIS [id number] SP [id number] 400 SELF PAY FRANCIS [id number] SP [id number] FRANCIS [id number] SP [id number] SELF PAY FRANCIS [id number] SP [id number] SELF PAY FRANCIS [id number] SP [id number] SELF PAY FRANCIS [id number] SP [id number] SELF PAY FRANCIS [id number] SP [id number] SELF PAY SELF PAY FRANCIS [id number] SP [id number] 400 FRANCIS [id number] SP [id number] 400 SELF PAY SELF PAY FRANCIS [id number] SP [id number] 400 SELF PAY FRANCIS [id number] SP [id number] 400 FRANCIS [id number] SP [id number] 400 SELF PAY FRANCIS [id number] SP [id number] 400 SELF PAY SELF PAY FRANCIS [id number] SP [id number] 400 FRANCIS [id number] SP [id number] 400 SELF PAY [place] [employer] [id number] Self [id number] SELF PAY FRANCIS [id number] SP [id number] 400 FRANCIS [id number] SP [id number] 400 SELF PAY FRANCIS [id number] SP [id number] 400 SELF PAY SELF PAY FRANCIS [id number] SP [id number] 400 FRANCIS [id number] SP [id number] 400 SELF PAY FRANCIS [id number] SP [id number] 400 SELF PAY SELF PAY FRANCIS [id number] SP [id number] 400 SELF PAY FRANCIS [id number] SP [id number] 400 SELF PAY FRANCIS [id number] SP [id number] 400 SELF PAY FRANCIS [id number] SP [id number] 400 SELF PAY FRANCIS [id number] SP [id number] 400 SELF PAY FRANCIS [id number] SP [id number] 400 SELF PAY FRANCIS [id number] SP [id number] 400 SELF PAY FRANCIS [id number] SP [id number] 400 SELF PAY SELF PAY FRANCIS [id number] SP [id number] 400 SELF PAY RFANCIS [id number] SP [id number] 400 FRANCIS [id number] SP [id number] 400 SELF PAY FRANCIS [id number] SP [id number] 400 SELF PAY FRANCIS [id number] SP [id number] 400 SELF PAY FRANCIS [id number] SP [id number] 400 SELF PAY SELF PAY FRANCIS [id number] SP [id number] 400 FRANCIS [id number] SP [id number] 400 SELF PAY FRANCIS [id number] SP [id number] 400 SELF PAY SELF PAY FRANCIS [id number] SP [id number] 400 FRANCIS [id number] SP [id number] 400 SELF PAY FRANCIS [id number] SP [id number] 400 SELF PAY FRANCIS [id number] SP [id number] 400 SELF PAY FRANCIS [facility] 1 [id number] 1 [id number] FRANCIS [id number] SP [id number] 400 SELF PAY SELF PAY FRANCIS [id number] SP [id number] 400 SELF PAY FRANCIS [id number] SP [id number] 400 FRANCIS [id number] SP [id number] 400 SELF PAY FRANCIS [id number] SP [id number] 400 SELF PAY SELF PAY FRANCIS [id number] SP [id number] 400 SELF PAY FRANCIS [id number] SP [id number] 400 SELF PAY FRANCIS [id number] SP [id number] 400 FRANCIS [id number] SP [id number] 400 SELF PAY FRANCIS [id number] SP [id number] 400 SELF PAY FRANCIS [id number] SP [id number] 400 SELF PAY SELF PAY FRANCIS [id number] SP [id number] 400 SELF PAY FARNCIS [id number] SP [id number] 400 SELF PAY FRANCIS [id number] SP [id number] 400 FRANCIS [id number] SP [id number] 400 SELF PAY FRANCIS [id number] SP [id number] 400 SELF PAY FRANCIS [id number] SP [id number] 400 SELF PAY FRANCIS [id number] SP [id number] 400 SELF PAY FRANCIS [id number] SP [id number] 400 SELF PAY FRANCIS [id number] SP [id number] 400 SELF PAY SELF PAY FRANCIS [id number] SP [id number] 400 SELF PAY FRANCIS [id number] SP [id number] 400 FRANCIS [id number] SP [id number] 400 SELF PAY SELF PAY SELF PAY FRANCIS [id number] SP [id number] 400 FRANCIS [id number] SP [id number] 400 SELF PAY [place] CARE [place] [id number] 0 [id number] SELF PAY FRANCIS [id number] SP [id number] 400 FRANCIS [id number] SP [id number] 400 SELF PAY SELF PAY FRANCIS [id number] SP [id number] 400 FRANCIS [id number] SP [id number] 400 SELF PAY FRANCIS [id number] SP [id number] 400 FRANCIS [id number] SP [id number] 400 SELF PAY SELF PAY FRANCIS [id number] SP [id number] 400 SELF PAY FRANCIS [id number] 400 SELF PAY FRANCIS [id number] SP [id number] 400 FRANCIS [id number] SP [id number] 400 SELF PAY SELF PAY FRANCIS [id number] SP [id number] FRANCIS CARE HEA [id number] S [id number] [place]ARE [place] O [id number] S [id number] [facility] CARE [place] [id number] P [id number] [facility]ARE OF [place] -OP [id number] 18 [id number] FRANCIS CARE [facility] [id number] S [id number] WELLCARE MEDICARE [id number] [place] [id number] [place] [facility] [place] Commercial [id number] Self [id number] [place]ARE [place] [id number] P [id number] TOTAL CARE/TODAYS OPTIONS-WALTER [id number] P [id number] UNAVAILABLE UNAVAILA [facility] MEDICAID HEA [id number] S [id number] [facility] [id number] SP BF [id number] MEDICAID PI PI [facility] [id number] SP [id number] [facility] OPTIONS [facility] [id number] SP [id number] [employer] O [id number] S [id number] FRANCIS MEDICAID PI PI [facility] [id number] SP [id number] TOTAL CARE MEDICAID/[facility]ARO PI PI [facility] O [id number] S [id number] [facility] [id number] SP [id number] MEDICAID [id number] SP [id number] [facility] O [id number] S [id number] SELF PAY ONLY [id number] SP [id number] [facility] O [id number] S BF [id number] [facility] [id number] 18 BF [id number] SELF PAY ONLY [id number] SP [id number] TODAYS OPTIONS MCR [id number] SP B [id number] HMO/MEDICAID [id number] P [id number] T SELFPAY P WALTER PENDING [id number] P [id number] WALTER PENDING [id number] P [id number] [facility] [id number] SP [id number] MEDICARE [id number] Patient is Insured [id number] MEDICARE [id number] Patient is Insured [id number] [facility]O [facility] HEA [id number] S [id number] TOTAL CARE HEA [id number] S [id number] TOTAL CARE [id number] SP [id number] SELF PAY UNAVAILABLE SP UNAVAILA BLE TOTAL CARE UNAVAILABLE SP UNAVAIL ABLE SELF PAY - PENDING UNAVAILABLE SP UNAVAILABLE TOTAL CARE W [id number] S [id number] Medicaid Medicaid [id number] Self Total Care Medicaid UNAVAILABLE UNAVAILABLE Total Care Medicaid [id number] Medicaid ### >07/29/11 Medicaid [id number] Self [facility] [place] Part B [id number] Self TODAY'S OPTIONS [place] [id number] SP [id number] ARMENIAN PROG TODAYS OPT [id number] SP [id number] MEDICAID GME W [id number] S [id number] [place] U[place] UNAVAILABLE TOTAL CARE W UNAVAILABLE S UNAVAIL ABLE TOTAL CARE MEDICAID UNAVAILABLE [place] UNAVAILABLE MEDICAID W [id number] S [id number] WELLCARE MEDICARE [id number] [place] 10 [id number] SELF PAY 5 UNAVAILABLE 1 UNAVAILA BLE SELFPAY 5 UNAVAILABLE [id number] UNAVAILA BLE MEDICAID 3 [id number] COUNT INCLUDES THE [facility] MEDICARE 11 [id number] 1 [id number] COUNT INCLUDES THE [facility] MEDICAID 2 [id number] 1 [id number] MEDICAID [facility] 3 [id number] SELF PAY 2 UNAVAILABLE 1 UNAVAILA BLE WELLCARE MEDICARE 11 [id number] 1 [id number] WELLCARE [facility] PLANS O [id number] S [id number] MEDICAID W [id number] S [id number] MEDICAID REF AMBULAT W [id number] S [id number] WELLCARE UNAVAILABLE S UNAVAILA BLE MEDICAID REF AMBULAT W [id number] S [id number] FRANCIS MEDICARE 11 [id number] 1 [id number] [place] Medicare Advantage C1 [id number] FRANCIS/MEDICAID 2 [id number] [facility] MEDICARE 11 [id number] WELLCARE-MEDICARE 11 [id number] Medicaid [id number] [place] [id number] SELF PAY 2 UNAVAILABLE [id number] [place] 3 [id number] T [place] MEDICARE 11 [id number] WELLCARE W [id number] S [id number] WELLCARE HMO O [id number] S [id number] WELLCARE W [id number] S [id number] MEDICARE OUTPATIENT M [id number] S [id number] WELLCARE HLTH PLANS O [id number] S [id number] MEDICAID W [id number] S [id number] WELL CARE W [id number] S [id number] [place]ARE [place] M/M W [id number] S B [id number] WELLCARE HLTH PLANS O [id number] S [id number] SELF PAY 2 UNAVAILABLE [id number] UNAVAILA BLE MEDICAID O [id number] S [id number] [facility] [place] O [id number] S [id number] WELLCARE HLTH PLANS O [id number] S [id number] WELLCARE HLTH PLANS O [id number] S [id number] [facility]CP [facility] O [id number] S [id number] [place] W [id number] S [id number] [place] 3 [id number] [place] W [id number] S [id number] [facility] O [id number] S [id number] [place] O [id number] S [id number] MEDICARE OUTPATIENT M [id number] S [id number] WELL CARE PCP W [id number] S [id number] WELLCARE MEDICARE 11 [id number] [place] MEDICARE 11 [id number] [place] [id number] O UNAVAILABLE UNAVAILA BLE O [id number] O [id number] COUNT INCLUDES THE [facility] [id number] SP [id number] Problems, Conditions, and Diagnoses Code Display Name Description Problem Type Effective Dates Data Source(s) Encounter for observation fo r other suspected diseases and conditions ruled out - Encounter for observation for o ther suspected diseases and conditions ruled out Diagnosis 12/31/2020 01:30:00 PM EDT [facility] R10.9 Unspecified abdominal pain R10.9 - Unspecified abdomin al pain Diagnosis 12/03/2020 02:42:00 PM EDT [facility] R53.83 Other fatigue R53.83 - Other fatigue Diagnosis 09/14 08:50:00 AM EDT [facility] R10.32 Left lower quadrant pain R10.32 - Left lower quadrant pain Diagnosis 10/06/2020 08:01:00 AM EDT [facility] D59.5 Paroxysmal nocturnal hemoglobinuria [Mar chiafava-Micheli] D59.5 - Paroxysmal nocturnal hemoglobinuria [Marchiafava-Micheli] Diagnosis 08/06/2020 08:25:00 AM EDT [facility] I27.82 Chronic pulmonary embolism I27.82 - Chronic pulmonary embolism Diagnosis 08/06/2020 08:25:00 AM EDT [facility] D50.9 Iron deficiency anemia, unspecified D50. 9 - Iron deficiency anemia, unspecified Diagnosis 07/31/2020 03:48:00 PM EDT [facility] Z23 Encounter for immunization Z23 - Encounter for immuniz ation Diagnosis 07/31/2020 03:28:00 PM EDT [facility] KIDNEY STONE PAIN KIDNEY STONE PAIN Diagnosis 07/02/2020 11:44:00 AM EDT [facility] Flank Pain Flank Pain Diagnosis 07/02/2020 11:44:00 AM ED T [facility] Z91.19 Patient's noncompliance with other medic al treatment and regimen Patient's noncompliance with other medical treatment and regimen Diagnosis 07/02/2020 11:44:00 AM EDT [facility] G89.29 Other chronic pain Other chronic pain Diagnosis 11:44:00 AM EDT [facility] R10.9 Unspecified abdominal pain Unspecified abdominal pain Diagnosis 07/02/2020 11:44:00 AM EDT [facility] Z13.9 Encounter for screening, unspecified Encounter f or screening, unspecified Diagnosis 07/02/2020 11:44:00 AM EDT [facility] R10.9 Unspecified abdominal pain Unspecified abdominal pain Diagnosis 06/21/2020 10:41:00 AM EDT [facility] Flank Pain Flank Pain Diagnosis 06/21/2020 10:41:[address] [facility] kidney stone kidney stone Diagnosis 06/21/2020 10:34:[address] [facility] R10.9 Unspecified abdominal pain Unspecified abdominal pain Diagnosis 05/21/2020 03:44:32 PM EST [facility] R10.31 Right lower quadrant pain R10.31 - Right lower quadran t pain Diagnosis 03/29/2020 02:25:00 PM EST [facility] R51.9 R51.9 - Headache, unspecified R51.9 - Headache, unspec ified Diagnosis 03/19/2020 03:31:00 PM EST [facility] H92.02 Otalgia, left ear H92.02 - Otalgia, left ear Diagnosis 02/14/2020 03:50:[address] [facility] R31.9 Hematuria, unspecified R31.9 - Hematuria, unspecified Diagnosis 02/14/2020 03:50:[address] [facility] M25.511 Pain in right shoulder M25.511 - Pain in right shoulde r Diagnosis 01/12/2020 09:45:00 AM EDT [facility] N10 Acute pyelonephritis Acute pyelonephritis Diagnosis 12/26/2019 08:45:36 AM EDT [facility] S39.91XA Unspecified injury of abdomen, initial e ncounter S39.91XA - Unspecified injury of abdomen, initial encounter Diagnosis 12/19/2019 01:02:00 PM EDT [facility] R51 Headache R51 - Headache Diagnosis 12/14/2019 02:03:00 P M EDT [facility] [id number] Drug seeking behavior Drug seeking behavior Problem 10/18/2020 12:00:00 AM EDT [facility] Note: PER URGENT CARE [id number] Cyst of left ovary Cyst of left ovary Problem 09/13/2020 12:00:00 AM EDT [facility] Note: left ovary [id number] Persistent insomnia Persistent insomnia Problem 0 04/15/2020 12:00:00 AM EST [facility]) [id number] Generalized anxiety disorder Generalized anxiety disor rufino Problem 04/15/2020 12:00:00 AM EST [facility]) [id number] Major depressive disorder Major depressive disorder Pr oblem 04/13/2020 12:00:00 AM EST [facility]) [id number] H/O: pulmonary embolus H/O: pulmonary embolus Problem 04/13/2020 12:00:00 AM EST [facility]) Note: ~ 2017 Surgeries/Procedures Procedure Description Date Indications Data Source(s) OFFICE OUTPATIENT VISIT 15 MINUTES 01/28/2021 12:00:00 AM EST [facility]) Brief Emotional/Behav Assessment W/ Scoring Doc Per Standard Inst 12/18/2020 12:00:00 AM EDT [facility]) OFFICE OUTPATIENT VISIT 15 MINUTES 12/18/2020 12:00:00 AM EDT [facility]) Depression screening (procedure) 12/18/2020 12:00:00 A M EDT [facility]) OFFICE OUTPATIENT [...] VISIT 25 MINUTES 07/26/2020 12:00:00 AM EDT [facility] ([facility]) OFFICE OUTPATIENT VISIT 15 MINUTES 06/26/2020 12:00:00 AM EDT [facility] ([facility]) CT ABDOMEN & PELVIS W/O CONTRAST MATERIAL <td>CT STONE PROTOCOL (A/P WO CONTRAST)</td><td>STAT</td><td>06/21/2020 12:07 PM EDT</td><td></td><td> </td> 06/21/2020 12:07:[address] [facility] URINALYSIS W/MICROSCOPIC & CULTURE IF INDICATED <td><c ontent ID="[id number]">URINALYSIS W/MICROSCOPIC & CULTURE IF INDICATED</content></td><td>STAT</td><td>06/21/2020 11:52 AM EDT</td><td></td><td><paragraph styleCode="header">Results for this procedure are in the <content styleCode="[id number]">results section</content>.</paragraph></td> 06/21/2020 11:52:[address] [facility] CBC AND DIFFERENTIAL <td>CBC AND DIFFERENTIAL</td ><td>STAT</td><td>06/21/2020 11:52 AM EDT</td><td></td><td> </td> 06/21/2020 11:52:[address] [facility] GONADOTROPIN CHORIONIC QUANTITATIVE <td>HCG, QUANTITAT ANDRES, </td><td>STAT</td><td>06/21/2020 11:52 AM EDT</td><td></td><td> </td> 06/21/2020 11:52:[address] [facility] COMPREHENSIVE METABOLIC PANEL <td>COMPREHENSIVE METABO LIC PANEL</td><td>STAT</td><td>06/21/2020 11:52 AM EDT</td><td></td><td> </td> 06/21/2020 11:52:[address] [facility] OFFICE OUTPATIENT VISIT 25 MINUTES 06/11/2020 12:00:00 AM EDT [facility]) Depression screening (procedure) 06/04/2020 12:00:00 A M EDT [facility]) Brief Emotional/Behav Assessment W/ Scoring Doc Per Standard Inst 06/04/2020 12:00:00 AM EDT [facility]) Brief Emotional/Behav Assessment W/ Scoring Doc Per Standard Inst 06/04/2020 12:00:00 AM EDT [facility]) Admin Of Inj (Therapeutic Phrophylactic Or Diagnostic Subq I nj 06/04/2020 12:00:00 AM EDT [facility]) OFFICE OUTPATIENT VISIT 25 MINUTES 06/04/2020 12:00:00 AM EDT [facility]) OFFICE OUTPATIENT VISIT 25 MINUTES 06/04/2020 12:00:00 AM EDT [facility]) Brief Emotional/Behav Assessment W/ Scoring Doc Per Standard Inst 05/28/2020 12:00:00 AM EDT [facility]) OFFICE OUTPATIENT VISIT 25 MINUTES 05/28/2020 12:00:00 AM EDT [facility] OFFICE OUTPATIENT VISIT 25 MINUTES 05/28/2020 12:00:00 AM EDT [facility]) OFFICE OUTPATIENT VISIT 15 MINUTES 05/25/2020 12:00:00 AM EST [facility]) POCT CLINITEK URINE DIPSTICK <td>POCT CLINITEK URINE DIPSTICK</td><td>Routine</td><td>05/21/2020 4:14 PM EST</td><td></td><td> </td> 05/21/2020 09:14:00 PM EST [facility] POCT CLINITEK URINE HCG <td>POCT CLINITEK URINE HCG</td><td>Routine</td><td>05/21/2020 3:51 PM EST</td><td></td><td> </td> 05/21/2020 08:51:00 PM EST [facility] POCT CLINITEK URINE HCG <td>POCT CLINITEK URINE HCG</td><td>Routine</td><td>05/16/2020 8:07 PM EST</td><td></td><td> </td> 05/17/2020 01:07:00 AM EST [facility] URNLS DIP STICK/TABLET RGNT AUTO W/O MICROSCOPY <td>UR INALYSIS W/O MICRO</td><td>STAT</td><td>05/16/2020 8:05 PM EST</td><td></td><td> </td> 05/17/2020 01:05:00 AM EST [facility] BLOOD COUNT COMPLETE AUTO&AUTO DIFRNTL WBC COUNT <td>C BC AND DIFFERENTIAL</td><td>STAT</td><td>05/16/2020 8:05 PM EST</td><td></td><td> </td> 05/17/2020 01:05:00 AM EST [facility] MAGNESIUM <td>MAGNESIUM</td><td>STAT</ td><td>05/16/2020 8:05 PM EST</td><td></td><td> </td> 05/17/2020 01:05:00 AM EST [facility] COMPREHENSIVE METABOLIC PANEL <td>COMPREHENSIVE METABO LIC PANEL</td><td>STAT</td><td>05/16/2020 8:05 PM EST</td><td></td><td> </td> 05/17/2020 01:05:00 AM EST [facility] OFFICE OUTPATIENT VISIT 15 MINUTES 04/30/2020 12:00:00 AM EST [facility] OFFICE OUTPATIENT VISIT 15 MINUTES 04/30/2020 12:00:00 AM EST [facility] OFFICE OUTPATIENT NEW 30 MINUTES 04/13/2020 12:00:00 A M EST [facility]) POCT CLINITEK URINE HCG <td>POCT CLINITEK URINE HCG</td><td>Routine</td><td>01/15/2020 9:38 AM EST</td><td></td><td> </td> 01/15/2020 02:38:00 PM EST [facility] URINE CULTURE HOLD SPECIMEN <td>URINE CULTURE HOLD SPECIMEN</td><td>STAT</td><td>01/15/2020 9:37 AM EST</td><td></td><td> </td> 01/15/2020 02:37:00 PM EST [facility] URNLS DIP STICK/TABLET RGNT AUTO W/O MICROSCOPY <td>UR INALYSIS W/O MICRO</td><td>STAT</td><td>01/15/2020 9:37 AM EST</td><td></td><td> </td> 01/15/2020 02:37:00 PM EST [facility] BLOOD COUNT COMPLETE AUTO&AUTO DIFRNTL WBC COUNT <td>C BC AND DIFFERENTIAL</td><td>STAT</td><td>01/15/2020 8:50 AM EST</td><td></td><td> </td> 01/15/2020 01:50:00 PM EST [facility] LIPASE <td>LIPASE</td><td>STAT</td> <td>01/15/2020 8:50 AM EST</td><td></td><td> </td> 01/15/2020 01:50:00 PM EST [facility] COMPREHENSIVE METABOLIC PANEL <td>COMPREHENSIVE METABO LIC PANEL</td><td>STAT</td><td>01/15/2020 8:50 AM EST</td><td></td><td> </td> 01/15/2020 01:50:00 PM EST [facility] Results ID Date Data Source [id number] 01/26/2021 06:24:07 PM EST [facility] Note Status: FINAL (SIGNED)Full Name: Kade JONES Date: 1985Visit ID: [id number] Record Number: [id number]: 35YSex: FemaleRoom Location: ER ROOMSBed Location: ER 7Date of Service: 01/26/2021 10:04Creation Date: 01/26/2021 10:04Created By: [facility] Physician: FORTUNATO CONTRERASTime patient first seen: 1000 Informant: PatientHPI Chief Complaint: Left flank pain HPI duration: One day HPI comments: 35-year-old female patient with a history of PE (on Lovenox) and asthma presents for evaluation of her left flank pain that began yesterday morning and has persisted into today. Patient denies any injury or increase in activity that may have caused this. Patient denies any radiculopathy, saddle anesthesias, bowel or bladder incontinence. Patient states pain starts in her left mid back, and radiates to her left lower abdomen. Patient denies any associated fevers, chills, nausea, vomiting constipation diarrhea or any urinary symptoms. LMP was just about 2 weeks ago. Patient's past surgical history includes cholecystectomy and appendectomy. Patient admits to both a history of kidney stones and ovarian cysts.~~~Review of SystemsAll systems reviewed and negative except as noted in HPIAll systems reviewed and negative except as noted in HPI or noted belowED Triage Note: Pt has chronic LLQ discomfort LMP 01/20/21 BM yesterday. Denies CP SOB N/V/D is alert oriented ambulatory. [LUPILLO KUHN 01/26/21 10:00]Past Medical/Surgical HistoryPast medical/surgical history reviewedFull problems and procedures listProblem;Associated ICD-10-CM Code;Status;OnsetAppendectomy;None Associated;Completed;UnknownAsthma;None Associated;Active;UnknownCholecystectomy;None Associated;Completed;UnknownHypercholesterolemia;None Associated;Active;UnknownHome MedicationsHome medications reviewedcetirizine, 10 milligram orally daily Enoxaparin, 120 milligram subcutaneously every 12 hours Multivitamins Tablet, 1 tablet orally daily Topiramate, 50 milligram orally 2 times per day AllergiesAllergies reviewedMotrin(on blood thinner), Penicillin V(Rash) Family HistoryFamily history reviewedMother (alive) 43Y Benign essential hypertension, Father 50Y ( [place] ) Social history reviewedAlcohol useNone Reported : ALCOHOL HISTORY Last Documented By: BARNEY CR RN on 01/18/2014 18:34Recreational drug useNone Reported : RECREATIONAL DRUG HISTORY Last Documented By: BARNEY CR RN on 01/18/2014 18:34Tobacco useNever smoker None Reported : TOBACCO HISTORY Last Documented By: RYAN VALENCIA RN on 01/03/2014 20:18Vital SignsVital signs reviewedMaximum temperature within the last 24 hours: 97.8 FDate/time of maximum temperature: 01/26/2021 09:56Most recent vital signsBP: 135/89 01/26/2021 09:56 Pulse: 90 01/26/2021 09:56 Temp: 97.8 F 01/26/2021 09:56 Resp: 18 01/26/2021 09:56 O2 Sat: 100.0%(Room Air) 01/26/2021 09:56 Calculated BMI: 47.9 01/26/2021 09:56 Admission height (inches): 62Admission weight (kgs): 118.3Triage Vital SignsTemp: 97.8F 01/26/2021 09:56 Pulse: 90 bpm 01/26/2021 09:56 Respirations: 18 01/26/2021 09:56 Blood Pressure: 135/89 mmHg 01/26/2021 09:56 O2Sat: 100 % 01/26/2021 09:56 Height: 62 in 01/26/2021 09:56 Weight: 118.3 kg 01/26/2021 09:56 Calculated BMI: 47.9 01/26/2021 09:56 Physical ExamConst: Within normal limits, no apparent [...] clubbing/cyanosis/edemaSkin: Within normal limits, No rash, No bruisingBack: Within normal limits, No CVA tendernessInitial impression: Acute left flank pain, UTI, pyelonephritis, kidney stone, ovarian cyst, torsionLaboratory resultsAll Lab ResultsOrder;Test;Value;Reference Range;Comments;Status;CollectionPREGNANCY TEST - SERUM; TEST - SERUM;NEGATIVE;;;Final Result ;01/26/2021 11:39:00AMYLASE;AMYLASE;43 ;(25-125 U/L);;Final Result ;01/26/2021 11:30:00CBC DIFF;WBC;8.1 ;(4.8-10.8 K/uL);;Final Result ;01/26/2021 11:30:00CBC DIFF;RED BLOOD CELL;4.18 L ;(4.20-5.40 M/uL);;Final Result ;01/26/2021 11:30:00CBC DIFF;HEMOGLOBIN;13.8 ;(12.0-16.0 gm/dL);;Final Result ;01/26/2021 11:30:00CBC DIFF;HEMATOCRIT;39.5 ;(36.0- 48.0 %);;Final Result ;01/26/2021 11:30:00CBC DIFF;MCV;94.5 ;(80.0-100.0 fL);;Final Result ;01/26/2021 11:30:00CBC DIFF;MCHC;34.8 ;(30.0-36.5 %);;Final Result ;01/26/2021 11:30:00CBC DIFF;MCH;32.9 ;(27.0-34.0 pg);;Final Result ;01/26/2021 11:30:00CBC DIFF;RDW;12.1 ;(11.0- 15.0 %);;Final Result ;01/26/2021 11:30:00CBC DIFF;PLATELET COUNT;304 ;(130-450 K/uL);;Final Result ;01/26/2021 11:30:00CBC DIFF;MPV;6.8 ;(6.0-12.0 fL);;Final Result ;01/26/2021 11:30:00CBC DIFF;NEUTROPHIL;66 ;(37-80 %);;Final Result ;01/26/2021 11:30:00CBC DIFF;LYMPHOCYTE;27 ;(10-50 %);;Final Result ;01/26/2021 11:30:00CBC DIFF;MONOCYTE;6 ;(0-12 %);;Final Result ;01/26/2021 11:30:00CBC DIFF;EOSINOPHIL;1 ;( < =8 %);;Final Result ;01/26/2021 11:30:00CBC DIFF;BASOPHIL;0 ;( < =3 %);;Final Result ;01/26/2021 11:30:00CBC DIFF;DEAN#;5.3 ;(1.8-8.6 K/uL);;Final Result ;01/26/2021 11:30:00CBC DIFF;LYMPHOCYTE #;2.2 ;(0.5-5.0 K/uL);;Final Result ;01/26/2021 11:30:00CBC DIFF;MONOCYTE #;0.5 ;(0.0-1.3 K/uL);;Final Result ;01/26/2021 11:30:00CBC DIFF;EOSINOPHIL #;0.1 ;(0.0-0.9 K/uL);;Final Result ;01/26/2021 11:30:00CBC DIFF;BASOPHIL #;0.0 ;(0.0-0.3 K/ul);;Final Result ;01/26/2021 11:30:00COMPREHENSIVE PANEL;SODIUM;137 ;(136-145 mmol/L);;Final Result ;01/26/2021 11:30:00COMPREHENSIVE PANEL;POTASSIUM;3.8 ;(3.5-5.2 mmol/L);;Final Result ;01/26/2021 11:30:00COMPREHENSIVE PANEL;CHLORIDE;105 ;(100-108 mmol/L);;Final Result ;01/26/2021 11:30:00COMPREHENSIVE PANEL;CARBON DIOXIDE;23 ;(21-32 mmol/L);;Final Result ;01/26/2021 11:30:00COMPREHENSI VE PANEL;GLUCOSE;86 ;(70-100 mg/dL);;Final Result ;01/26/2021 11:30:00COMPREHENSIVE PANEL;BUN;11 ;(7-21 mg/dL);;Final Result ;01/26/2021 11:30:00COMPREHENSIVE PANEL;Creatinine;0.6 ;(0.6-1.3 mg/dL);;Final Result ;01/26/2021 11:30:00COMPREHENSIVE PANEL;CALCIUM;9.4 ;(8.5-10.8 mg/dL);;Final Result ;01/26/2021 11:30:00COMPREHENSIVE PANEL;GFR; > 60 ;;;Final Result ;01/26/2021 11:30:00COMPREHENSIVE PANEL;TOTAL BILIRUBIN;0.4 ;(0.0-1.2 mg/dL);;Final Result ;01/26/2021 11:30:00COMPREHENSIVE PANEL;TOTAL PROTEIN;7.2 ;(6.4-8.2 gm/dL);;Final Result ;01/26/2021 11:3 0:00COMPREHENSIVE PANEL;ALBUMIN;3.9 ;(3.4-4.8 gm/dL);;Final Result ;01/26/2021 11:30:00COMPREHENSIVE PANEL;ALK PHOS;106 ;(40-150 U/L);;Final Result ;01/26/2021 11:30:00COMPREHENSIVE PANEL;ALT(SGPT);40 ;(0-55 U/L);;Final Result ;01/26/2021 11:30:00COMPREHENSIVE PANEL;AST (SGOT);37 ;(5-37 U/L);;Final Result ;01/26/2021 11:30:00LIPASE;LIPASE;17 ;(8-78 U/L);;Final Result ;01/26/2021 11:30:00EKG/Rhythm Strip InterpretationProgress Time 1: 1005 Progress comments 1: Patient seen and evaluated. [facility] reviewed, patient has had [address] abdomen/pelvis studies within the past month at [facility].Progress time 2: 1200 Progress comments 2: Serum negative. Labs are unremarkable. I was notified by nursing that patient wants to leave the department now. She would not wait for me to speak with her. Patient signed out AGAINST MEDICAL ADVICE.Di agnosis: Acute left flank painDiagnosis level 3Disposition time: 1200 Discharge condition: StableDischarge plan: Patient signed out AMA.Disposition: homePatient did not require critical care timeMidlevel signature: Guerda MORALES signature date: 01/26/2021 13:45Attending Physician Attestation: I have reviewed the midlevel documentation, agree with the documentation, medical decision damion munoz and treatment plan as outlined by the midlevelPhysician signature: Asim MITCHELL signature date: 01/26/2021 18:22 Name Value Range Interpretation Code Description Data Victoria rce(s) Supporting Document(s) ID Date Data Source [id number] 01/26/2021 12:07:00 PM EST [facility] Name Value Range Interpretation Code Description Data Victoria rce(s) Supporting Document(s) SERUM TEST NEGATIVE [facility] PREGS METHODOLOGY [facility] ID Date Data Source [id number] 01/26/2021 12:02:00 PM EST [facility] AMYL[facility] Name Value Range Interpretation Code Description Data Victoria rce(s) Supporting Document(s) AMYLASE 43 U/L 25-125 [facility] ID Date Data Source [id number] 01/26/2021 12:02:00 [facility] Name Value Range Interpretation Code Description Data Victoria rce(s) Supporting Document(s) LIPASE 17 U/L 8-78 [facility] ID Date Data Source [id number] 01/26/2021 12:02:00 PM EST [facility] CMP Name Value Range Interpretation Code Description Data Victoria rce(s) Supporting Document(s) SODIUM 137 mmol/L 136-145 [facility] POTASSIUM 3.8 mmol/L 3.5-5.2 [facility] CHLORIDE 105 mmol/L 100-108 [facility] CO2 23 mmol/L 21-32 [facility] GLUCOSE 86 mg/dL 70-100 [facility] BUN 11 mg/dL 7-21 [facility] CREATININE 0.6 mg/dL 0.6-1.3 [facility] Normal Kidney Function or Mild Disease - GFR >OR= 60Chronic Kidney Disease - GFR 15-59Renal Failure - GFR < 15GFR not calculated on patients under 18 years of age. CALCIUM 9.4 mg/dL 8.5-10.8 [facility] GFR >60 [facility] T BILI 0.4 mg/dL 0.0-1.2 [facility] T PROTEIN 7.2 gm/dL 6.4-8.2 [facility] ALBUMIN 3.9 gm/dL 3.4-4.8 [facility] ALK PHOS 106 U/L 40-150 [facility] ALT (SGPT) 40 U/L 0-55 [facility] AST (SGOT) 37 U/L 5-37 [facility] ID Date Data Source [id number] 01/26/2021 11:54:00 AM [facility] Name Value Range Interpretation Code Description Data Victoria rce(s) Supporting Document(s) WBC 8.1 K/uL 4.8-10.8 [facility] RBC 4.18 M/uL 4.20-5.40 L [facility] HEMOGLOBIN 13.8 gm/dL 12.0-16.0 [facility] HEMATOCRIT 39.5 % 36.0-48.0 [facility] MCV 94.5 fL 80.0-100.0 [facility] MCHC 34.8 % 30.0-36.5 [facility] MCH 32.9 pg 27.0-34.0 [facility] RDW 12.1 % 11.0-15.0 [facility] PLATELET 304 K/uL 130-450 [facility] MPV 6.8 fL 6.0-12.0 [facility] NE% 66 % 37-80 [facility] LY% 27 % 10-50 [facility] MO% 6 % 0-12 [facility] Eosinophils [#/volume] in Blood by Automated count 1 % <=8 [facility] BA% 0 % <=3 [facility] NE# 5.3 K/uL 1.8-8.6 [facility] LYMPH# 2.2 K/uL 0.5-5.0 [facility] MONO# 0.5 K/uL 0.0-1.3 [facility] EOS# 0.1 K/uL 0.0-0.9 [facility] BASO# 0.0 K/ul 0.0-0.3 [facility] ID Date Data Source [id number] 01/17/2021 07:16:00 PM EDT [facility] Name Value Range Interpretation Code Description Data Victoria rce(s) Supporting Document(s) Laboratory test finding (navigational concept) Laboratory test result [facility] <content>QUANTITATIVE RESULT QU ALITATIVE INTERPRETATION</content>
<content> </content>
<content><5.0 IU/L NEGATIVE</content>
<content>5.0 - 25.0 IU/L INDETERMINATE</content>
<content>>25.0 IU/L POSITIVE</content>
<content></content> ID Date Data Source [id number] 01/17/2021 07:11:00 PM EDT [facility] ([facility]) Name Value Range Interpretation Code Description Data Victoria rce(s) Supporting Document(s) Laboratory test finding (navigational concept) 39.0 % 38.0-51.0 [facility] ([facility]) Laboratory test finding (navigational concept) 85 mg/dL 70-105 [facility] ([facility]) Laboratory test finding (navigational concept) 140 meq/L 136-145 [facility] ([facility]) Laboratory test finding (navigational concept) 3.8 meq/L 3.5-5.1 [facility] ([facility]) Laboratory test finding (navigational concept) 105 meq/L 98-109 [facility] ([facility]) Laboratory test finding (navigational concept) 4.8 mg/dL 4.5-5.3 [facility] ([facility]) Laboratory test finding (navigational concept) 24.0 MM/L 23.0-27.0 [facility] ([facility]) Laboratory test finding (navigational concept) 13 mg/dL 8-26 [facility] ([facility]) Laboratory test finding (navigational concept) 0.7 mg/dL 0.6-1.3 [facility] ([facility]) ID Date Data Source [id number] 01/17/2021 07:01:00 PM EDT [facility] Name Value Range Interpretation Code Description Data Victoria rce(s) Supporting Document(s) SARS coronavirus 2 RNA [Presence] in Res piratory specimen by WILLIAN with probe detection NEGATIVE [place] This lab was ordered by [facility] a nd reported by [facility]. ID Date Data Source [id number] 01/17/2021 07:01:00 PM EDT [facility] ([facility]) Name Value Range Interpretation Code Description Data Victoria rce(s) Supporting Document(s) Lipase [Enzymatic activity/volume] in Serum or Plasma 93 U/L 73-3 93 [facility] ([facility]) Coronavirus 2019 Nasopharygeal Laboratory test result [facility] ([facility]) Laboratory test finding (navigational concept) Laboratory test result [facility] ([facility]) A false negative result may occur if a s pecimen is improperly collected, transported or handled. False [...] pathogens. DISCLAIMER: Testing was performed using the [employer] SARS-CoV-2 test. This test was developed and its performance characteristics determined by [employer]. This test has not been FDA cleared [...] the authorization is terminated or revoked sooner. ID Date Data Source [id number] 01/17/2021 07:01:00 PM EDT [facility] Name Value Range Interpretation Code Description Data Victoria rce(s) Supporting Document(s) Alt/SGPT 49 U/L 12-78 [facility] Ast/Sgot 33 U/L 7-37 [facility] ([facility]) Bilirubin,Total 0.3 mg/dL 0.2-1.0 [facility]) Alkaline Phosphatase 106 U/L 45-117 [facility] ([facility]) Bilirubin,Direct Laboratory test result 0.0-0.2 [facility] ([facility]) Total Protein 7.0 GM/DL 6.4-8.2 [facility]) Albumin 3.5 GM/DL 3.2-5.2 [facility] ([facility]) Albumin/Globulin Ratio 1.0 1.2-2.2 Below low normal [facility] ([facility]) ID Date Data Source [id number] 01/17/2021 07:01:00 PM EDT [facility] Name Value Range Interpretation Code Description Data Victoria rce(s) Supporting Document(s) White Blood Count 8.6 10 4.0-10.0 [facility]) Red Blood Count 4.18 10 4.00-5.40 [facility] Hemoglobin 13.0 g/dL 12.0-15.5 [facility]) Hematocrit 39.5 % 36.0-47.0 [facility]) Mean Corpuscular Volume 94.5 fl 80.0-96.0 M [facility] ([facility]) Mean Corpuscular Hemoglobin 31.1 pg 27.0-33.0 [facility] ([facility]) Mean Corpuscular HGB Conc 32.9 g/dL 32.0-36.5 [facility] ([facility]) Red Cell Distribution Width 12.7 % 11.5-14.5 [facility] ([facility]) Neutrophils % 55.8 % 36.0-66.0 [facility]) Platelet Count, Automated 292 10 150-450 [facility] ([facility]) Lymph % 34.9 % 24.0-44.0 [facility]) Amelia % 6.8 % 2.0-8.0 [facility]) Eos % 1.3 % 0.0-3.0 [facility] ([facility]) Immature Granulocyte % 0.8 % 0-3.0 [facility] ([facility]) Baso % 0.4 % 0.0-1.0 [facility] ([facility]) Nucleated Red Blood Cell % 0.0 % 0-0 [facility] ([facility]) Neutrophils # 4.8 10 1.5-8.5 [facility]) Amelia # 0.6 10 0.0-0.8 [facility] ([facility]) Lymph # 3.0 10 1.5-5.0 [facility]) Eos # 0.1 10 0.0-0.5 [facility] ([facility]) Baso # 0.0 10 0.0-0.2 [facility] ([facility]) ID Date Data Source [id number] 12/24/2020 05:52:00 PM EDT [facility] Name Value Range Interpretation Code Description Data Victoria rce(s) Supporting Document(s) Laboratory test finding (navigational concept) Laboratory test result [facility] ([facility]) <content>QUANTITATIVE RESULT QU ALITATIVE INTERPRETATION</content>
<content> </content>
<content><5.0 IU/L NEGATIVE</content>
<content>5.0 - 25.0 IU/L INDETERMINATE</content>
<content>>25.0 IU/L POSITIVE</content>
<content></content> ID Date Data Source [id number] 12/24/2020 05:44:00 PM EDT [facility] Name Value Range Interpretation Code Description Data Victoria e(s) Supporting Document(s) Laboratory test finding (navigational concept) 40.0 % 38.0-51.0 [facility] ([facility]) Laboratory test finding (navigational concept) 83 mg/dL 70-105 [facility] ([facility]) Laboratory test finding (navigational concept) 3.5 meq/L 3.5-5.1 [facility] ([facility]) Laboratory test finding (navigational concept) 140 meq/L 136-145 [facility] ([facility]) Laboratory test finding (navigational concept) 4.6 mg/dL 4.5-5.3 [facility] ([facility]) Laboratory test finding (navigational concept) 103 meq/L 98-109 [facility] ([facility]) Laboratory test finding (navigational concept) 25.0 MM/L 23.0-27.0 [facility] ([facility]) Laboratory test finding (navigational concept) 0.8 mg/dL 0.6-1.3 [facility] ([facility]) Laboratory test finding (navigational concept) 12 mg/dL 8-26 [facility] ([facility]) ID Date Data Source [id number] 12/24/2020 05:38:00 PM EDT [facility] Name Value Range Interpretation Code Description Data Victoria rce(s) Supporting Document(s) White Blood Count 7.6 10 4.0-10.0 [facility]) Hemoglobin 13.5 g/dL 12.0-15.5 [facility]) Hematocrit 40.6 % 36.0-47.0 [facility] Red Blood Count 4.30 10 4.00-5.40 [facility] Mean Corpuscular Hemoglobin 31.4 pg 27.0-33.0 [facility] ([facility]) Mean Corpuscular Volume 94.4 fl 80.0-96.0 M [facility] ([facility]) Red Cell Distribution Width 12.5 % 11.5-14.5 [facility] ([facility]) Mean Corpuscular HGB Conc 33.3 g/dL 32.0-36.5 [facility] ([facility]) Platelet Count, Automated 308 10 150-450 [facility] ([facility]) Neutrophils % 58.7 % 36.0-66.0 [facility]) Amelia % 6.3 % 2.0-8.0 [facility] Lymph % 32.5 % 24.0-44.0 [facility]) Immature Granulocyte % 0.7 % 0-3.0 [facility] ([facility]) Eos % 1.5 % 0.0-3.0 [facility]) Baso % 0.3 % 0.0-1.0 [facility]) Nucleated Red Blood Cell % 0.0 % 0-0 [facility] ([facility]) Neutrophils # 4.4 10 1.5-8.5 [facility]) Lymph # 2.5 10 1.5-5.0 [facility]) Amelia # 0.5 10 0.0-0.8 [facility] ([facility]) Eos # 0.1 10 0.0-0.5 [facility]) Baso # 0.0 10 0.0-0.2 [facility] ([facility]) ID Date Data Source [id number] 12/24/2020 05:38:00 PM EDT [facility] Name Value Range Interpretation Code Description Data Victoria rce(s) Supporting Document(s) Ast/Sgot 43 U/L 7-37 Above high normal [facility] ([facility]) Bilirubin,Total 0.3 mg/dL 0.2-1.0 [facility]) Alt/SGPT 56 U/L 12-78 [facility]) Alkaline Phosphatase 114 U/L 45-117 [facility] ([facility]) Bilirubin,Direct 0.1 mg/dL 0.0-0.2 [facility]) Total Protein 7.3 GM/DL 6.4-8.2 [facility]) Albumin 3.6 GM/DL 3.2-5.2 [facility]) Albumin/Globulin Ratio 1.0 1.2-2.2 Below low normal [facility] ([facility]) ID Date Data Source [id number] 12/24/2020 05:38:00 PM EDT [facility] ([facility]) Name Value Range Interpretation Code Description Data Victoria rce(s) Supporting Document(s) Lipase [Enzymatic activity/volume] in Serum or Plasma 101 U/L 73-3 93 [facility] ([facility]) ID Date Data Source [id number] 12/24/2020 05:38:00 PM EDT [facility]) Name Value Range Interpretation Code Description Data Victoria rce(s) Supporting Document(s) Reflex Urine Culture Laboratory test result [facility] ([facility]) FULL REPORT IN LAB NOTES (eCW and [facility] ). SPECIMEN APPEARS CONTAMINATED ID Date Data Source [id number] 12/24/2020 05:38:00 PM EDT [facility]) Name Value Range Interpretation Code Description Data Victoria rce(s) Supporting Document(s) Appearance, Urine RFX Laboratory test result Above high no rmal [facility] ([facility]) PH,Urine RFX 5.0 units 5.0-9.0 [facility] ([facility]) Color, Urine RFX Laboratory test result [facility] ([facility]) Specific [place] Ur Auto RFX 1.015 1.002-1.035 [facility] ([facility]) Protein, Urine Auto RFX Laboratory test result Above high normal [facility] ([facility]) Ketone, Urine Auto RFX Laboratory test result [facility] ([facility]) Glucose, Urine (Ua) Auto RFX Laboratory test result [facility] ([facility]) Bilirubin, Urine Auto RFX Laboratory test result [facility] ([facility]) Urobilinogen, Urine Auto RFX 0.2 mg/dL 0.0-2.0 [facility] ([facility]) Leukocyte Esterase Ur Auto RFX Laboratory test result Abov e high normal [facility] ([facility]) Nitrite, Urine Auto RFX Laboratory test result [facility] ([facility]) Blood, Urine Blood RFX Laboratory test result Above high n ormal [facility] ([facility]) WBC, Urine Auto RFX 31 /HPF 0-3 Above high normal [facility] ([facility]) RBC, Urine Auto RFX Laboratory test result 0-3 Above high norm al [facility] ([facility]) Bacteria, Urine Auto RFX Laboratory test result Above high normal [facility] ([facility]) Squam Epithelial Cell Ur Aurfx 15 /HPF 0-6 [facility] ([facility]) Hyaline Cast, Urine Auto RFX 0 /LPF 0-1 [facility] ([facility]) Mucus, Urine RFX Laboratory test result [facility] ([facility]) ID Date Data Source [id number] 12/12/2020 02:57:20 PM EDT [facility] Note Status: FINAL (SIGNED)Full Name: Kade JONES Date: 1985Visit ID: [id number] Record Number: [id number]: 35YSex: FemaleRoom Location: ER ROOMSBed Location: ER RN3Wede of Service: 12/06/2020 17:50Creation Date: 12/06/2020 17:50Created [...] colic? OrdersStart Date;Description;Frequency;Ordered By;Status12/06/2020;CULTURE URINE ;Once;MAIKEL PERALTA;Dates Met12/06/2020;ED INITIATE ABDOMINAL PAIN PATHWAY ;Once;MAIKEL PERALTA;Dates 12/06/2020;IV - PERIPHERAL - INSERT & MAINTAIN ;Once;MAIKEL PERALTA;Dates 12/06/2020;AMYLASE ;Once;MAIKEL PERALTA;Dates 12/06/2020;CBC DIFF ;Once;MAIKEL PERALTA;Dates 12/06/2020;COMPREHENSIVE PANEL ;Once;MAIKEL PERALTA;12/06/2020;LIPASE ;Once;MAIKEL PERALTA S.;12/06/2020;PT/INR ;Once;MAIKEL PERALTA.;12/06/2020;PTT ;Once;MAIKEL PERALTA.;D ates 12/06/2020;CULTURE URINE ;Once;MAIKEL PERALTA.;12/06/2020;URINALYSIS ROUTINE ;Once;MAIKEL PERALTA S.;12/06/2020;URINE MICROSCOPIC ;Once;MAIKEL PERALTA S.;12/06/2020;ED INITIATE ABDOMINAL PAIN PATHWAY ;Once;MAIKEL PERALTA.;12/06/2020;IV - PERIPHERAL - INSERT & MAINTAIN ;Once;MAIKEL PERALTA.;12/06/2020;RENAL/BLADDER U/S COMPLETE ;Once;MAIKEL PERALTA.;12/06/2020;AMYLASE ;Once;MAIKEL PERALTA S.;12/06/2020;CBC DIFF ;Once;MAIKEL PERALTA S.;12/06/2020;COMPREHENSIVE PANEL ;Once;MAIKEL PERALTA.;12/06/2020;LIPASE ;Once;MAIKEL PERALTA.;12/06/2020; TEST - SERUM ;Once;MAIKEL PERALTA.;12/06/2020;PT/INR ;Once;MAIKEL PERALTA.;12/06/2020;PTT ;Once;P ROCMAIKEL NGUYEN.;12/06/2020;Point of Care URINE DIPSTICK ;Once;MAIKEL PERALTA.;12/06/2020;URINALYSIS ROUTINE ;Once;MAIKEL PERALTA.;12/06/2020;ONDANSETRON HCL (PF) 4 MG/2 ML IVP ;ED - ONE TIME ONLY;MAIKEL PERALTA;12/07/2020;ED-NPO ;Meals;KATHRYN, MAIKEL S.;ActiveLaboratory resultsLab Results for the past 24 hoursOrder;Test;Value;Reference [...] Urine Turbidity;HAZY;;;Final Result ;12/06/2020 18:59:10URINALYSIS ROUTINE;Dipstick Specific [place];1.020;(1.000-1.030);;Final Result ;12/06/2020 18:59:10URINALYSIS ROUTINE;Dipstick Urine pH;5.0;(5.0-8.0);;Final Result [...] cot. She agrees to follow-up with her [facility] neurologist. Patient states she is well enough to go home with discharge. Right is to discharge her home with primary care and urology follow-up. She agrees to this plan.Diagnosis: Acute flank and abdominal painDiagnosis level 2Disposition time: 2100 Discharge condition: StableDischarge plan: Patient requested to be discharged home and will follow up with her [place] based urologistDisposition: homePatient did not require critical care timeMidlevel signature: MAIKEL PERALTA NPMid[facility] signature date: 12/10/2020 10:35Attending Physician Attestation: I have reviewed the midlevel documentation, agree with the documentation, medical decision making and treatment plan as outlined by the midlevelPhysician signature: BERNABE Michelle KUMAR signature date: 12/12/2020 14:55 Name Value Range Interpretation Code Description Data Victoria rce(s) Supporting Document(s) ID Date Data Source [id number] 12/06/2020 08:15:[facility] Status: FINAL (SIGNED)Full Name: Kade JONES Date: 1985Visit ID: [id number] Record Number: [id number]: 34YSex: FemaleRoom Location: ER ROOMSBed Location: ER BD 12Date of Service: 08/15/2020 16:05Creation Date: 08/15/2020 16:05Created By[facility] Physician: FORTUNATO CONTRERASTime patient first seen: [...] her first appointment with a [place]ist [place].~~Review of SystemsAll systems reviewed and negative except as noted in HPIAll systems reviewed and negative except as noted in HPI or noted belowED Triage Note: Pt c/o left flank pain; hx of kidney. Also some N/V [AYO OEJDA 08/15/20 14:44]Past Medical/Surgical HistoryPast medical/surgical history reviewedFull [...] Urine Turbidity;HAZY;;;Final Result ;08/15/2020 16:44:00URINALYSIS ROUTINE;Dipstick Specific [place];1.025 ;(1.000- 1.030);;Final Result ;08/15/2020 16:44:00URINALYSIS ROUTINE;Dipstick Urine [...] Echogenic hepatic parenchyma suggesting steatosis.~~~IMPRESSION:~~No hydronephrosis.~~END OF IMPRESSION~~[facility] submits Radiology results to [facility] and~[facility] then provides those same results to [facility]. All~results are available to [facility] and [facility] provider portal~users. [facility] DICOM images are available to the~[facility] provider portal users only. [facility] DICOM~images are not available to the [facility] provider portal users. There is~no current [facility] cross-[facility] functionality allowing images to be available through~the [facility] to [facility] connectivity.~Electronically signed By: Scottie Vazquez MD~~Read By: [...] Guerda MORALES signature date: 08/16/2020 21:32Physician signature: Michelle LEON signature date: 08/17/2020 07:55 Name Value Range Interpretation Code Description Data [facility] rce(s) Supporting Document(s) ID Date Data Source [id number] 12/06/2020 07:37:00 PM EDT [facility] Name Value Range Interpretation Code Description Data [facility] rce(s) Supporting Document(s) LIPASE 20 U/L 8-78 [facility] ID Date Data Source [id number] 12/06/2020 07:37:00 PM EDT [facility] Name Value Range Interpretation Code Description Data [facility] rce(s) Supporting Document(s) AMYLASE 45 U/L 25-125 [facility] ID Date Data Source [id number] 12/06/2020 07:37:00 PM EDT [facility] CMP Name Value Range Interpretation Code Description Data Victoria rce(s) Supporting Document(s) SODIUM 137 mmol/L 136-145 [facility] POTASSIUM 3.7 mmol/L 3.5-5.2 [facility] CHLORIDE 104 mmol/L 100-108 [facility] CO2 21 mmol/L 21-32 [facility] GLUCOSE 86 mg/dL 70-100 [facility] BUN 13 mg/dL 7-21 [facility] CREATININE 0.8 mg/dL 0.6-1.3 [facility] Normal Kidney Function or Mild Disease - GFR >OR= 60Chronic Kidney Disease - GFR 15-59Renal Failure - GFR < 15GFR not calculated on patients under 18 years of age. CALCIUM 10.2 mg/dL 8.5-10.8 [facility] GFR >60 [facility] T BILI 0.5 mg/dL 0.0-1.2 [facility] T PROTEIN 7.4 gm/dL 6.4-8.2 [facility] ALBUMIN 4.1 gm/dL 3.4-4.8 [facility] ALK PHOS 104 U/L 40-150 [facility] ALT (SGPT) 47 U/L 0-55 [facility] AST (SGOT) 40 U/L 5-37 H [facility] ID Date Data Source [id number] 12/06/2020 07:32:00 PM EDT [facility] Name Value Range Interpretation Code Description Data Victoria rce(s) Supporting Document(s) SERUM TEST NEGATIVE [facility] spital PREGS METHODOLOGY [facility] denise ID Date Data Source [id number] 12/06/2020 07:27:00 PM EDT [facility] Name Value Range Interpretation Code Description Data Victoria rce(s) Supporting Document(s) PTT 32.0 sec 25.6-36.4 [facility] ID Date Data Source [id number] 12/06/2020 07:24:00 PM EDT [facility] Name Value Range Interpretation Code Description Data Victoria rce(s) Supporting Document(s) PROTIME 12.3 sec 9.4-12.4 [facility] INR 1.1 [facility] INR INTERPERTATION 2.0 -3.0 THERAPEUTIC MONITORING2.5-3.5 HEART VALVE REPLACEMENT ID Date Data Source [id number] 12/06/2020 07:24:00 PM EDT [facility] CBC WITH DIFF Name Value Range Interpretation Code Description Data Victoria rce(s) Supporting Document(s) WBC 9.7 K/uL 4.8-10.8 [facility] RBC 4.08 M/uL 4.20-5.40 L [facility] HEMOGLOBIN 13.5 gm/dL 12.0-16.0 [facility] HEMATOCRIT 39.0 % 36.0-48.0 [facility] MCV 95.5 fL 80.0-100.0 [facility] MCHC 34.7 % 30.0-36.5 [facility] MCH 33.1 pg 27.0-34.0 [facility] RDW 12.2 % 11.0-15.0 [facility] PLATELET 266 K/uL 130-450 [facility] MPV 7.0 fL 6.0-12.0 [facility] NE% 65 % 37-80 [facility] LY% 27 % 10-50 [facility] [facility] MO% 6 % 0-12 [facility] Eosinophils [#/volume] in Blood by Automated count 1 % <=8 [facility] BA% 0 % <=3 [facility] NE# 6.3 K/uL 1.8-8.6 [facility] LYMPH# 2.6 K/uL 0.5-5.0 [facility] MONO# 0.6 K/uL 0.0-1.3 [facility] EOS# 0.1 K/uL 0.0-0.9 [facility] BASO# 0.0 K/ul 0.0-0.3 [facility] ID Date Data Source [id number] 12/09/2020 09:01:00 AM EDT [facility] al CULTURE OBSERVATIONS 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 [facility] RBC 5-10 /HPF NONE SEEN ! [facility] [employer] has definedMicroscopic Hematuria as 3 or more RBC per highpowered field from a single positive urinalysis withmicroscopy. BACTERIA MANY /HPF NONE SEEN ! [facility] EPITHELIAL CELLS MODERATE /HPF NONE SEEN ! [facility] spital ID Date Data Source [id number] 12/06/2020 07:17:00 PM [facility]T [facility] Name Value Range Interpretation Code Description Data Victoria rce(s) Supporting Document(s) COLOR LUIS M [facility] APPEARANCE HAZY CLEAR ! [facility] SPECIFIC GRAVITY 1.020 1.000-1.030 [facility] ital pH 5.0 5.0-8.0 [facility] LEUKOCYTES 2+ NEGATIVE ! [facility] NITRATE NEGATIVE NEGATIVE [facility] PROTEIN 100 [ 2+] mg/dL NEGATIVE ! [facility] l GLUCOSE NORMAL mg/dL NORMAL [facility] KETONE NEGATIVE mg/dL NEGATIVE [facility] UROBILINOGEN NORMAL mg/dL NORMAL [facility] l BILIRUBIN NEGATIVE mg/dL NEGATIVE [facility] HEMOGLOBIN 3+ NEGATIVE ! [facility] ID Date Data Source [id number] 12/06/2020 08:55:58 PM EDT [facility] 12/06/2020 8:18 PMRENAL ULTRASOUNDCLINICA L INFORMATION: [...] Resident's/Fellow'sinterpretation and agree with or edited the findings.[facility] submits Radiology results to [facility] and[facility] then provides those same results to [facility]. Allresults are available to [facility] and [facility] provider portalusers. [facility] DICOM images are available to the[facility] provider portal users only. [facility] DICOMimages are not available to the [facility] provider portal users. There isno current [facility] cross-RHIO functionality allowing images to be available throughthe IO to [facility] connectivity.Interpreted By: Sierra Trivedi MDElectronically signed By: León Butler M.D.Read By: LEÓN PELAEZate: 12/06/2020 20:52 Name Value Range Interpretation Code Description Data Victoria rce(s) Supporting Document(s) ID Date Data Source [id number] 12/03/2020 07:38:00 [place] [address] HEALTH INFORMATION MANAGEMENT ED/UC Physician Report : [id number] Signed Patient: Taniya Field Acct:[id number] Unit: M [id number] : 1985 Arrival Date: 12/03/20 Age/Sex: 35 [...] States that she has not tried any kvak-ihy-yzrqovu medications for symptoms prior to coming to [...] Normal Affect Skin Skin exam: Dry, Intact, [place] and Warm Course Vital Signs Vital signs: Vital Signs 12/03/20 14:59 Temperature 98.4 F Pulse Rate 103 H Respiratory Rate 18 Blood Pressure 158/70 H O2 Sat by Pulse Oximetry 98 Medical Decision Making/CCT Lab Data Labs: Lab Results 12/03/20 Range/Units 14:44 Urine Color RED H (YELLOW) Urine Appearance CLOUDY H (CLEAR) Urine pH 6.0 (5.0- 8.0) Specific [place] (Man) 1.014 (1.002-1.035) Urine Protein 100 H [...] <<Signature on File>> Initializing User: Elvira Max [facility] 12/03/201937 Signed by: Elvira Max [facility] 12/03/202026 Phani Calvillo DO 12/03/202216 Name Value Range Interpretation Code Description Data Victoria rce(s) Supporting Document(s) ID Date Data Source [id number] 12/03/2020 03:17:00 PM EDT [facility] Name Value Range Interpretation Code Description Data Victoria rce(s) Supporting Document(s) COLOR,UR RED YELLOW A [facility] APPEARANCE,UR CLOUDY CLEAR A [facility] PH,UR 6.0 5.0-8.0 [facility] SPECIFIC GRAVITY,UR 1.014 1.002-1.035 [facility] PROTEIN,UR 100 MG/DL NEGATIVE A [facility] GLUCOSE, UR NEGATIVE MG/DL NEGATIVE [facility] KETONES,UR NEGATIVE MG/DL NEGATIVE [facility] OCCULT BLOOD,UR LARGE NEGATIVE A [facility] NITRATE,UR NEGATIVE NEGATIVE [facility] LEUKOCYTE ESTERASE ,UR TRACE NEGATIVE A [facility] BILIRUBIN,UR NEGATIVE NEGATIVE [facility] UROBILINOGEN,UR 0.2-1.0 EU MG/DL NEG-0-1.0 [facility] RBC,UR >100 PER HPF 0-2 A [facility] URINE EPITH MANY PER/LPF FEW-MOD [facility] BACTERIA,UR RARE PER HPF NONE [facility] MUCUS,UR RARE PER HPF NONE SEEN [facility] ID Date Data Source [id number] 12/03/2020 02:44:00 PM EDT [facility] [...] Urine 1.014 1.002-1.035 [facility] ([facility]) Protein [Presence] in Urine by Test strip 100 mg/dL Abnormal (applies to non- numeric results) [facility] ([facility]) Ketones [Presence] in Urine by Test strip Laboratory test result [facility] ([facility]) Glucose [Mass/volume] in [...] test result [facility] T ([facility]) ID Date Data Source [id number] 11/22/2020 01:38:00 PM EDT [facility] Name Value Range Interpretation Code Description Data Victoria rce(s) Supporting Document(s) SARS-CoV-2 RNA Pnl Spec WILLIAN+probe NEG [facility] This lab was ordered by [facility]PT, EOU (OPD) and reported by [facility]. ID Date Data Source [id number] 11/01/2020 12:25:00 PM EDT [facility] ([facility]) Name Value Range Interpretation Code Description Data Victoria rce(s) Supporting Document(s) Laboratory test finding (navigational concept) Laboratory test result [facility] ([facility]) ID Date Data Source [id number] 11/01/2020 12:07:00 PM EDT [facility] ([facility]) Name Value Range Interpretation Code Description Data Victoria rce(s) Supporting Document(s) Glucose [Mass/volume] in Capillary blood by Glucometer 91 [facility] ([facility]) ID Date Data Source [id number] 10/30/2020 03:53:00 PM EDT [facility] ([facility]) Name Value Range Interpretation Code Description Data Victoria rce(s) Supporting Document(s) Laboratory test finding (navigational concept) Laboratory test result [facility] ([facility]) <content>QUANTITATIVE RESULT QU ALITATIVE INTERPRETATION</content>
<content> </content>
<content><5.0 IU/L NEGATIVE</content>
<content>5.0 - 25.0 IU/L INDETERMINATE</content>
<content>>25.0 IU/L POSITIVE</content>
<content></content> ID Date Data Source [id number] 10/30/2020 03:26:00 PM EDT [facility] ([facility]) Name Value Range Interpretation Code Description Data Victoria rce(s) Supporting Document(s) Lipase [Enzymatic activity/volume] in Serum or Plasma 105 U/L 73-3 93 [facility] ([facility]) ID Date Data Source [id number] 10/30/2020 03:26:00 PM EDT [facility] ([facility]) Name Value Range Interpretation Code Description Data Victoria rce(s) Supporting Document(s) Glucose, Fasting 91 mg/dL 70-100 [facility] Creatinine For GFR 0.74 mg/dL 0.55-1.30 [facility] ([facility]) Blood Urea Nitrogen 17 mg/dL 7-18 [facility] ([facility] Sodium Level 139 meq/L 136-145 [...] Little GFR Left</content>
<content>ESRD GFR <15 on PERSONAL ASSISTANT</content>
<content></content> Potassium Serum 3.8 meq/L 3.5-5.1 [facility]) Chloride Level 108 meq/L 98-107 Above high normal [facility] ([facility]) Carbon Dioxide Level 26 meq/L 21-32 [facility] Calcium Level 8.9 mg/dL 8.5-10.1 [facility]) Anion Gap 5 meq/L 8-16 Below low normal [facility] ( [facility]) ID Date Data Source [id number] 10/30/2020 03:26:00 PM EDT [facility] Name Value Range Interpretation Code Description Data Victoria rce(s) Supporting Document(s) Alt/SGPT 58 U/L 12-78 [facility] Ast/Sgot 40 U/L 7-37 Above high normal [facility]) Alkaline Phosphatase 112 U/L 45-117 [...] ([facility]) ID Date Data Source [id number] 10/30/2020 03:26:00 PM EDT [facility] Name Value Range Interpretation Code Description Data Victoria rce(s) Supporting Document(s) Red Blood Count 4.27 10 4.00-5.40 [facility] White Blood Count 10.1 10 4.0-10.0 Above high normal [facility] ([facility]) Hemoglobin 13.2 g/dL 12.0-15.5 [facility]) Hematocrit 39.9 % 36.0-47.0 [facility]) Mean Corpuscular Volume 93.4 fl 80.0-96.0 M [facility] ([facility]) Mean Corpuscular Hemoglobin 30.9 pg 27.0-33.0 [facility] ([facility]) Red Cell Distribution Width 14.0 % 11.5-14.5 [facility] ([facility]) Mean Corpuscular HGB Conc 33.1 g/dL 32.0-36.5 [facility] ([facility]) Neutrophils % 68.3 % 36.0-66.0 Above high normal [facility] NT ([facility]) Platelet Count, Automated 330 10 150-450 [facility] ([facility]) Amelia % 5.9 % 2.0-8.0 [facility] Lymph % 23.8 % 24.0-44.0 Below low normal [facility] ( [facility]) Baso % 0.4 % 0.0-1.0 [facility]) Eos % 0.8 % 0.0-3.0 [facility]) Immature Granulocyte % 0.8 % 0-3.0 [facility] ([facility]) Nucleated Red Blood Cell % 0.0 % 0-0 [facility] ([facility]) Lymph # 2.4 10 1.5-5.0 [facility]) Neutrophils # 6.9 10 1.5-8.5 [facility]) Amelia # 0.6 10 0.0-0.8 [facility]) Eos # 0.1 10 0.0-0.5 [facility]) Baso # 0.0 10 0.0-0.2 [facility]) ID Date Data Source [id number] 10/29/2020 01:00:00 PM EDT [facility] Name Value Range Interpretation Code Description Data Victoria rce(s) Supporting Document(s) First [facility] VXOVLw2uBkDEZgZfFVOjIvtRBIzxWEnaUUAyU5V8CJjiOy2WTQzxpkQaIHXzYg3+XCHqRF3jel2rQNCf gMy 9hJBMtXeimY1ZaZCUdw65XEWEaXQgWZsTqYfGaJYK8JVAbGjKoAKF6JfYpFrgoHL5oXVB1IWDnBXjxNA TqWEbaNrSwJvRnLH7cEZlaXWnrQj9NRF1hk3FdXAEmIPMaBnsDLKtfVUrmOTVeGTPyGNCuG735qnBaAE 6ZmBGzQVl4GGBjUmI7LTAmPxA1SOQrFgAiTyQrSTJv K1Bzt456nrWtneF2HI9UE3XgYJB0AWy2K0kaFoHfTBGvQORpIR2mCbT9POIiUg0WkOdzNUUyCXAuBs3F zTt5SIF9IDQrSp2+Pj4+Wa2nhdAuPpaYNEPnFZ2qzx07FS6EyBWgOX4LYDrgA79uVTfiTn00VTwsHFLy UhVePFi8Uz4mUwCjj7WvH0JcMEz6B0eVNnlqK2TwHG feYE6xHKE2FZExWd2+Lu9eWWQvKF80IOVsFHBMS2NtnlLxyvGaAZd3HVImZe1+Ec6qvfUfFsvRLJCsIO 5ogf97VT2MOJ6saHzfBwI8IKXgO58anACoR4gwXgUoY7CpzCfiFVHfUN2zK1BcZMnuJQYpTB2hsgOsyS 3GxYl5ZVMvBl2HtIJ5IFYbJ55uBIEsUKZEOSKun4Es WU7Yk1wwhsCwBAUaJN1JKRRyB1VAM3FyO2bozDesPNBbTR3YASvgnARqCMv1JO0LzARiWREqH48fnO3v AW37TUz+EkH3abZacB0DgUjhvRDMWS/346gbr7BtG7frs87DcOTX1SF4c8PzPfJBeMjHL1Wt2D6qDzyP +dajlRrIe8py3IVw1PyOg1L6wce59/h56D6Dq89z7p 66dZj0t3DFNgO1JQ2QFF9RYW2UMY9GWq1DlsLRCfuXk8azZN0rTNaSZDS2NDOzYtmt4Sy8couVPjY49J w8/Ud2ZZkoVcK01uy4/Lz/kxJDQmBRZkwyFQmKlXzTnq92J33r8LQ7sKL8sViegMvPXYqJLZmTr05NGU TWsBWyivU6I5EHDGABIRWIk8RI+vuo8CBNIRTXBETZ [file] /COMPUTER NUMERICAL CONTROL GRINDER+FRsxOpZaHVUMVP6FG71XS6a7Zo4hGzO7k5F/DJ2U02cjebD8m43llkv6TzbUyChKkVeADEqBYpu [file] G4PZ+AG190yymzgbNQP8vj93eJxA1NGt/hFCYv/generator technician [file] Hc835fcay1MQjxwot/ScNbjuudQhrGF99FWeR/aobx xRA+qwfKfmuyVSWc8WadZAabQPJYqSzL08h8FLvKANUE9OUyqrbPbiwFgTiWFlU89Aa+uDPOd8DH/Ikp xL3f3IexGzJkD60ewr+zFdN2r7knp7zOc1S+vFn2NGcDiw2cb1wzn/BZIgyKjRhYO3kWov1cb3qoDTTP aTibNCq77IZTk4JRti52C1EDK+Y+d9e0XoYv4iMvU9 xMlh6kg8DsaCBjgka6xoxKrSi+flFs9iaE90hBVjyEHi9S6RDRaZ3qwFKGA89ogON66+cSIx3q8svp6+ Peooo0Hv1oH+/2vSP43HOKo9MqQoGWtboRuyColLemIvX1dD4PrvBAGtA8tc0z/rBT51TkI15D XlrcbqZNhmlTU3oRX7qKW6a1FOWBYG/HicpvRfeIxH /9uOp+5TwztwB2vB6D2hhvitjs6b5Ur4yiCE2U7TqAHAMlm/Ixs+CIocxO8D+bwZlaNp0rcbsGvoRJi1 18avSb5AfjJwuspCe8RHUIsjE7UyTKeOhZRvzBGTNHNsNc0FTzikGu1HTjg+3qwHdpfsYUetVwtCKFoi +5dt6238o0qUoKHKvtKpXl+98lDCW+M7kNlSVoS6nO lDmmB3W1tip/vdlLEgueBMZstCu579B/2kZibfoduUat5BsvWKj+bEF+f3ymPl+WoMWZ9X+hiZwRgpCf Literacy Coach/wq1oLGVfinSFMRhIUbBTIGyH5ziliGeVlzQx+2OONFp90mmEWjxLc3EInHBFlZ8CG7qmZ2qKJHyMm [file] [place]/vsNtTpJjcDiz6PClly4wl5HNBo5n5xPzA3ISdQQSfCHZ1wZytIguy34T/xP3WeGi30ldHGJuWwYd3 [file] mscgwKJ/national sales associate+nYC59I1D8HCecObksr7HT5K2wqmDdc5afnz6MV2yhNImqwhkPdqPaJsrib3iFoA2ci2Q [file] ZnqEgPEykCHsCVcddj3FO9om7YiA+RfERb7jSLfYSPyD5tTzBjF+3mur6uF3B9nGd4QAm0QU6aVM1/MANUAL LATHE MACHINIST [file] L/Hsnk61SW+Ukel/9LqCd1iq8RoplSsHPVEKBo++Inés/jaX3FRl9kaj8ncVXZ788lr6WYgOlrvZr+PbT [file] 6/Literacy Coach+uJNdsiASjzj6151rNHgDelEnEc8hKihlAm/MY [file] p5/PEDRO [file] 4EX/MANUAL LATHE MACHINIST/zekT5eyD6sUzwE/s1eyN8yBsCQ3q40k56MP [file] uX2D7RgAbzuatZGAM3gkLquXz7ujzuYtJCU0ZQ5lowDL3dVUV9d1oPq6zqk6w6wUjuuCiHZqH3gh/PROCESS IMPROVEMENT ENGINEER [file] [facility]/irRNg18VJ0HYJGvTENoCBCxToBiD91fVWR5ThLcWIiIE9lBlh3AtGbGihFr0+v+iPR5StlS6zc [file] isvSn3Xoeisjvo7gkYsyxch47cMEa53QPA8sTbpoD0ND4ezgVB8zIeiGSi6TelviQvs2LOdvSlw7+specimen collector [file] aCEkUh7RVSHnQrw8Cx1AOHGYV3X= ID Date Data Source [id number] 10/07/2020 02:12:50 AM [facility]T [facility]: FINALFull Name: BILLY FIELD Date: 1985Visit ID: [id number] Record Number: [id number]: 34YSex: FemaleRoom Location: ER ROOMSBed Location: ER [...] require critical care timeMidlevel signature: EDGARDO CROWE [facility] signature date: 09/26/2020 22:42Attending Physician Attestation comments: I have reviewed the mid-level documentation, agree with the documentation, medical decision making and treatment plan as outlined by the mid-level provider.Physician signature: Michelle RICK signature date: 10/07/2020 02:09 Name Value Range Interpretation Code Description Data Victoria rce(s) Supporting Document(s) ID Date Data Source [id number] 10/06/2020 08:54:00 AM EDT [facility] Name Value Range Interpretation Code Description Data Victoria rce(s) Supporting Document(s) Hemoglobin A1c/Hemoglobin.total in Blood 4.9 % 4.1-6.5 [facility] ([facility]) ID Date Data Source [id number] 10/06/2020 08:54:00 AM EDT [facility]) Name Value Range Interpretation Code Description Data Victoria rce(s) Supporting Document(s) Potassium [Moles/volume] in Serum or Plasma 3.8 meq/L 3.5-5.3 [facility] ([facility]) Sodium [Moles/volume] in Serum or Plasma 139 meq/L 135-145 [facility]) Chloride [Moles/volume] in Serum or Plasma 108 meq/L 94-110 [facility] ([facility]) Anion gap in Serum or Plasma 11 5-16 [facility] ([facility]) Carbon dioxide, total [Moles/volume] in Serum or Plasma 24 meq/L 22 -33 [facility] ([facility]) Creatine [Mass/volume] in Serum or Plasma 0.8 mg/dL 0.6-1.4 [facility] Urea nitrogen [Mass/volume] in Serum or Plasma 14 mg/dL 7-25 [facility] Glomerular filtration rate/1.73 sq M.pre dicted [Volume Rate/Area] in Serum or Plasma by Creatinine-based formula (MDRD) 81.2 mL/min [facility] ([facility]) Stage G2 - Mildly decreased kidney funct ion The GFR is an estimate of the Glomerular Filtration Rate. It is an aid to assess a patient's renal function. It is not a conclusive diagnosis of kidney disease. GFR normal is >=90 The MDRD GFR calculation is considered valid between the ages of 18 and 75 years only. Glucose [Mass/volume] in Serum or Plasma 82 mg/dL 70-100 [facility] ([facility]) Urea nitrogen/Creatinine [Mass Ratio] in Serum or Plasma 17 8 -36 [facility] ([facility]) Calcium [Mass/volume] in Serum or Plasma 9.6 mg/dL 8.7-10.5 [facility] ID Date Data Source [id number] 10/06/2020 08:49:00 AM EDT [address] [address] HEALTH INFORMATION MANAGEMENT ED/ Physician Report : [id number] Signed Patient: Taniya Field Acct:[id number] Unit: Gaetano [id number] : 1985 Arrival Date: 10/06/20 Age/Sex: 34 / F Arrival Time: 800 Copies to: Fortunato Contreras MD General Adult HPI/ROS General Chief Complaint: Flank Pain Stated Complaint: Left Side Pain Source: Patient Mode of arrival: Ambulatory Limitations: Reports No limitations History of Present Illness Initial Comments: Patient has left flank pain since yesterday. Believes she has a kidney stone. States that she has previously had kidney stones. 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 Followed [...] Normal Affect Skin Skin exam: Dry, Intact, [place] and Warm Course Vital Signs Vital signs: [...] rce(s) Supporting Document(s) ID Date Data Source [id number] 10/06/2020 07:56:00 AM EDT [facility] Name Value Range Interpretation Code Description Data Victoria rce(s) Supporting Document(s) Laboratory test finding (navigational concept) Laboratory test result [facility] ([facility]) NO URINE RECEIVED Patient informed to return with specimen. ID Date Data Source [id number] 10/06/2020 11:33:00 AM EDT [facility] NO URINE SENT FOR UA Name Value Range Interpretation Code Description Data Victoria rce(s) Supporting Document(s) SODIUM 139 MEQ/L 135-145 [facility] POTASSIUM 3.8 MEQ/L 3.5-5.3 [facility] CHLORIDE 108 MEQ/L 94-110 [facility] CARBON DIOXIDE 24 MEQ/L 22-33 [facility] ANION GAP 11 5-16 N [facility] BLOOD UREA NITRO 14 MG/DL 7-25 N [facility] CREATININE 0.8 MG/DL 0.6-1.4 N [facility] GFR 81.2 ML/MIN [facility] Stage G2 - Mildly decreased kidney func tion The GFR is an estimate of the Glomerular Filtration Rate. It is an aid to assess a patient's renal function. It is not a conclusive diagnosis of kidney disease. GFR normal is >=90 The MDRD GFR calculation is considered valid between the ages of 18 and 75 years only. BUN/CREAT RATIO 17 8-36 N [facility] GLUCOSE 82 MG/DL 70-100 N [facility] CA 9.6 MG/DL 8.7-10.5 N [facility] ID Date Data Source [id number] 10/06/2020 11:33:00 AM EDT [facility] NO URINE SENT FOR UA Name Value Range Interpretation Code Description Data Victoria rce(s) Supporting Document(s) GLYCOSYLATED HGBA1C 4.9 % 4.1-6.5 N [facility] ID Date Data Source [id number] 10/08/2020 07:57:00 AM EDT [facility] NO URINE SENT FOR UA Name Value Range Interpretation Code Description Data Victoria rce(s) Supporting Document(s) NO URINE RECEIVED FROM PATIENT NO URINE RECEIVED [facility] Patient informed to return with specime n. ID Date Data Source [id number] 10/05/2020 04:18:00 PM EDT [facility] Name Value Range Interpretation Code Description Data Victoria rce(s) Supporting Document(s) Hemoglobin A1c/Hemoglobin.total in Blood Laboratory test result [facility] ([facility]) ID Date Data Source [id number] 09/26/2020 08:51:00 AM EDT [facility] ([facility] [...] 32.5 g/dL 32.0-36.5 [facility] ([facility]) Neutrophils % 59.7 % 36.0-66.0 [facility]) Platelet Count, Automated 284 10 150-450 [facility] ([facility]) Lymph % 30.3 % 24.0-44.0 [facility]) Amelia % 7.5 % 2.0-8.0 [facility] Baso % 0.5 % 0.0-1.0 [facility]) Eos % 1.2 % 0.0-3.0 [facility] Nucleated Red Blood Cell % 0.0 % 0-0 [facility] ([facility]) Immature Granulocyte % 0.8 % 0-3.0 [facility] ([facility]) Neutrophils # 4.0 10 1.5-8.5 [facility]) Lymph # 2.0 10 1.5-5.0 [facility]) Amelia # 0.5 10 0.0-0.8 [facility] Baso # 0.0 10 0.0-0.2 [facility]) Eos # 0.1 10 0.0-0.5 [facility] ID Date Data Source [id number] 09/26/2020 08:51:00 AM EDT [facility] Name Value Range Interpretation Code Description Data Victoria rce(s) Supporting Document(s) Prothrombin Time 12.3 s 12.5-14.3 [facility] Inr 0.90 [facility] ([facility] THERAPUTIC HUMAN INR VALUES INDICATIONS NORMAL RANGES PROPHYLAXIS/TREATMENT OF: VENOUS THROMBOSIS 2.0-3.0 PULMONARY EMBOLISM 2.0-3.0 PREVENTION OF SYSTEMIC EMBOLISM FROM: TISSUE HEART VALVES 2.0-3.0 ACUTE MYOCARDIAL INFARCTION 2.0-3.0 VALVULAR HEART DISEASE 2.0-3.0 ATRIAL FIBRILLATION 2.0-3.0 MECHANICAL VALVES(HIGH RISK) 2.5-3.5 RECURRENT MYOCARDIAL INFARCTION 2.5-3.5 ID Date Data Source [id number] 09/26/2020 08:51:00 AM EDT [facility] Name Value Range Interpretation Code Description Data Victoria rce(s) Supporting Document(s) aPTT in Platelet poor plasma by Coagulation assay 23.5 s 24.2-38.5 Below low normal [facility] ([facility]) ID Date Data Source [id number] 09/26/2020 08:51:00 AM EDT [facility] Name Value Range Interpretation Code Description Data Victoria rce(s) Supporting Document(s) Alt/SGPT 65 U/L 12-78 [facility] Ast/Sgot 56 U/L 7-37 Above high normal [facility]) Alkaline Phosphatase 110 U/L 45-117 [facility] ([facility] Bilirubin,Total 0.3 mg/dL 0.2-1.0 [facility] ([facility]) Bilirubin,Direct Laboratory test result 0.0-0.2 [facility] ([facility]) Total Protein 7.2 GM/DL 6.4-8.2 [facility]) Albumin 3.6 GM/DL 3.2-5.2 [facility] Albumin/Globulin Ratio 1.0 1.2-2.2 Below low normal [facility] ([facility]) ID Date Data Source [id number] 09/26/2020 08:51:00 AM EDT [facility] Name Value Range Interpretation Code Description Data Victoria rce(s) Supporting Document(s) Glucose, Fasting 101 mg/dL 70-100 Above high normal M [facility] ([facility]) Blood Urea Nitrogen 13 mg/dL 7-18 [facility] ([facility]) Creatinine For GFR 0.72 mg/dL 0.55-1.30 [facility] [...] Little GFR Left</content>
<content>ESRD GFR <15 on PERSONAL ASSISTANT</content>
<content></content> Sodium Level 140 meq/L 136-145 [facility] ([facility]) Potassium Serum 4.3 meq/L 3.5-5.1 [facility] ([facility]) Carbon Dioxide Level 23 meq/L 21-32 [facility] ([facility]) Chloride Level 108 meq/L 98-107 Above high normal [facility] ([facility]) Anion Gap 9 meq/L 8-16 [facility] ([facility]) Calcium Level 9.0 mg/dL 8.5-10.1 [facility] ([facility]) ID Date Data Source [id number] 09/26/2020 08:51:00 AM EDT [facility] ([facility]) Name Value Range Interpretation Code Description Data Victoria rce(s) Supporting Document(s) Lipase [Enzymatic activity/volume] in Serum or Plasma 100 U/L 73-3 93 [facility] ([facility]) Choriogonadotropin.beta subunit ( test) [Pres ence] in Serum or Plasma Laboratory test result [facility]) ID Date Data Source [id number] 09/26/2020 08:51:00 AM EDT [facility] ([facility]) Name Value Range Interpretation Code Description Data Victoria rce(s) Supporting Document(s) Color, Urine RFX Laboratory test result [facility] ([facility]) Appearance, Urine RFX Laboratory test result Above high no rmal [facility] ([facility]) PH,Urine RFX 6.0 units 5.0-9.0 [facility] Specific [place] Ur Auto RFX 1.021 1.002-1.035 [facility] ([facility]) Glucose, Urine (Ua) Auto RFX Laboratory test result [facility] ([facility]) Protein, Urine Auto RFX Laboratory test result Above high normal [facility] ([facility]) Ketone, Urine Auto RFX Laboratory test result [facility] ([facility]) Urobilinogen, Urine Auto RFX 0.2 mg/dL 0.0-2.0 [facility] ([facility]) Bilirubin, Urine Auto RFX Laboratory test result [facility] ([facility]) Nitrite, Urine Auto RFX [facility] Blood, Urine Blood RFX Laboratory test result Above high n ormal [facility] ([facility]) Leukocyte Esterase Ur Auto RFX Laboratory test result Abov e high normal [facility] ([facility]) WBC, Urine Auto RFX 9 /HPF 0-3 Above high normal [facility] ([facility]) RBC, Urine Auto RFX Laboratory test result 0-3 Above high norm al [facility] ([facility]) Bacteria, Urine Auto RFX Laboratory test result [facility] ([facility]) Squam Epithelial Cell Ur Aurfx 9 /HPF 0-6 [facility] ([facility]) Hyaline Cast, Urine Auto RFX 0 /LPF 0-1 [facility] ([facility]) ID Date Data Source [id number] 09/26/2020 08:51:00 AM EDT [facility] ([facility]) Name Value Range Interpretation Code Description Data Victoria rce(s) Supporting Document(s) Reflex Urine Culture Laboratory [facility] FULL REPORT IN LAB NOTES (eCW and [facility] ). SPECIMEN APPEARS CONTAMINATED ID Date Data Source [id number] 09/21/2020 09:00:00 [facility] Name Value Range Interpretation Code Description Data Victoria rce(s) Supporting Document(s) SODIUM 142 mmol/L 136-145 [facility] POTASSIUM 3.7 mmol/L 3.5-5.2 [facility] CHLORIDE 106 mmol/L 100-108 [facility] CO2 27 mmol/L 21-32 [facility] GLUCOSE 90 mg/dL 70-100 [facility] BUN 15 mg/dL 7-21 [facility] CREATININE 0.9 mg/dL 0.6-1.3 [facility] Normal Kidney Function or Mild Disease - GFR >OR= 60Chronic Kidney Disease - GFR 15-59Renal Failure - GFR < 15GFR not calculated on patients under 18 years of age. CALCIUM 9.5 mg/dL 8.5-10.8 [facility] GFR >60 [facility] T BILI 0.3 mg/dL 0.0-1.2 [facility] T PROTEIN 7.0 gm/dL 6.4-8.2 [facility] ALBUMIN 3.9 gm/dL 3.4-4.8 [facility] ALK PHOS 98 U/L 40-150 [facility] ALT (SGPT) 45 U/L 0-55 [facility] AST (SGOT) 38 U/L 5-37 H [facility] ID Date Data Source [id number] 09/21/2020 08:32:00 [facility] Name Value Range Interpretation Code Description Data Victoria rce(s) Supporting Document(s) WBC 7.8 K/uL 4.8-10.8 [facility] RBC 4.05 M/uL 4.20-5.40 L [facility] HEMOGLOBIN 12.9 gm/dL 12.0-16.0 [facility] HEMATOCRIT 37.5 % 36.0-48.0 [facility] MCV 92.6 fL 80.0-100.0 [facility] MCHC 34.5 % 30.0-36.5 [facility] MCH 32.0 pg 27.0-34.0 [facility] RDW 15.5 % 11.0-15.0 H [facility] PLATELET 298 K/uL 130-450 [facility] MPV 6.8 fL 6.0-12.0 [facility] NE% 61 % 37-80 [facility] LY% 31 % 10-50 [facility] MO% 7 % 0-12 [facility] Eosinophils [#/volume] in Blood by Automated count 1 % <=8 [facility] BA% 0 % <=3 [facility] NE# 4.8 K/uL 1.8-8.6 [facility] LYMPH# 2.4 K/uL 0.5-5.0 [facility] MONO# 0.5 K/uL 0.0-1.3 [facility] EOS# 0.1 K/uL 0.0-0.9 [facility] BASO# 0.0 K/ul 0.0-0.3 [facility] ID Date Data Source [id number] 09/17/2020 05:12:07 PM [facility]T [facility] Note Status: FINAL (SIGNED)Full Name: Kade JONES Date: 1985Visit ID: [id number] Record Number: [id number]: 34YSex: FemaleRoom Location: UNKNOWN_ROOMBed Location: UNKNOWN_BEDDate of Service: 08/19/2020 17:42Creation Date: 08/19/2020 17:42Created By: [facility] Physician: FORTUNATO CONTRERASTime patient first seen: 1725 Informant: PatientHPI Chief Complaint: Left lower quadrant/flank [...] ;ED - ONE TIME ONLY;PRAKASH JASSO;Inactive08/19/2020;AMYLASE ;Once;PRAKASH JASSO;Today08/19/2020;CBC DIFF ;Once;PRAKASH JASSO;Today08/19/2020;COMPREHENSIVE PANEL ;Once;PRAKASH JASSO;Today08/19/2020;LACTIC ACID ;Once;PRAKASH JASSO;Today08/19/2020;LIPASE ;Once;PRAKASH JASSO;Today08/19/2020;PT/INR ;Once;PRAKASH JASSO;Today08/19/2020;PTT ;Once;PRAKASH JASSO;Today08/19/2020;ACETAMINOPHEN 650 MG OR AL ;ED - ONE [...] rce(s) Supporting Document(s) ID Date Data Source [id number] 09/05/2020 02:33:00 PM EDT [facility] ([facility] [...] Family [facility]) Laboratory test finding (navigational concept) 12 mg/dL 8-26 [facility] ([facility]) Laboratory test finding (navigational concept) 0.6 mg/dL 0.6-1.3 [facility] ([facility]) ID Date Data Source [id number] 09/05/2020 02:20:00 PM EDT [facility] ([facility]) Name Value Range Interpretation Code Description Data Victoria rce(s) Supporting Document(s) Laboratory test finding (navigational concept) Laboratory test result [facility] ([facility]) <content>QUANTITATIVE RESULT QU ALITATIVE INTERPRETATION</content>
<content> </content>
<content><5.0 IU/L NEGATIVE</content>
<content>5.0 - 25.0 IU/L INDETERMINATE</content>
<content>>25.0 IU/L POSITIVE</content>
<content></content> ID Date Data Source [id number] 09/05/2020 12:05:00 PM EDT [facility] ([facility]) Name Value Range Interpretation Code Description Data Victoria e(s) Supporting Document(s) Laboratory test finding (navigational concept) Laboratory test result [facility] ([facility]) <content>QUANTITATIVE RESULT QU ALITATIVE INTERPRETATION</content>
<content> </content>
<content><5.0 IU/L NEGATIVE</content>
<content>5.0 - 25.0 IU/L INDETERMINATE</content>
<content>>25.0 IU/L POSITIVE</content>
<content></content> ID Date Data Source [id number] 09/05/2020 11:53:00 AM EDT [facility] ([facility]) Name Value Range Interpretation Code Description Data Victoria rce(s) Supporting Document(s) Laboratory test finding (navigational concept) 39.0 % 38.0-51.0 [facility] ([facility]) Laboratory test finding (navigational concept) 119 mg/dL 7 0-105 Above high normal [facility] ([facility]) Laboratory test finding (navigational concept) 139 meq/L 136-145 [facility] ([facility]) Laboratory test finding (navigational concept) 5.0 mg/dL 4.5-5.3 [facility] ([facility]) Laboratory test finding (navigational concept) 4.0 meq/L 3.5-5.1 [facility] ([facility]) Laboratory test finding (navigational concept) 100 meq/L 98-109 [facility] ([facility]) Laboratory test finding (navigational concept) 25.0 MM/L 23.0-27.0 [facility] Laboratory test finding (navigational concept) 0.6 mg/dL 0.6-1.3 [facility] ([facility]) Laboratory test finding (navigational concept) 13 mg/dL 8-26 [facility] ID Date Data Source [id number] 08/22/2020 12:00:00 AM EDT [facility] Name Value Range Interpretation Code Description Data Victoria rce(s) Supporting Document(s) SARS-CoV2 Rapid Antigen Negative [facility] This lab was ordered by [facility] and reported by [facility]. ID Date Data Source [id number] 08/19/2020 06:17:00 PM EDT [facility] Name Value Range Interpretation Code Description Data Victoria rce(s) Supporting Document(s) AMYLASE 47 U/L 25-125 [facility] ID Date Data Source [id number] 08/19/2020 06:17:00 PM EDT [facility] Name Value Range Interpretation Code Description Data Victoria rce(s) Supporting Document(s) LIPASE 24 U/L 8-78 [facility] ID Date Data Source [id number] 08/19/2020 06:17:00 PM EDT [facility] CMP Name Value Range Interpretation Code Description Data Victoria rce(s) Supporting Document(s) SODIUM 139 mmol/L 136-145 [facility] POTASSIUM 3.8 mmol/L 3.5-5.2 [facility] CHLORIDE 105 mmol/L 100-108 [facility] CO2 26 mmol/L 21-32 [facility] GLUCOSE 95 mg/dL 70-100 [facility] BUN 15 mg/dL 7-21 [facility] CREATININE 0.8 mg/dL 0.6-1.3 [facility] Normal Kidney Function or Mild Disease - GFR >OR= 60Chronic Kidney Disease - GFR 15-59Renal Failure - GFR < 15GFR not calculated on patients under 18 years of age. CALCIUM 9.7 mg/dL 8.5-10.8 [facility] GFR >60 [facility] T BILI 0.4 mg/dL 0.0-1.2 [facility] T PROTEIN 7.5 gm/dL 6.4-8.2 [facility] ALBUMIN 4.2 gm/dL 3.4-4.8 [facility] ALK PHOS 114 U/L 40-150 [facility] ALT (SGPT) 44 U/L 0-55 [facility] AST (SGOT) 32 U/L 5-37 [facility] ID Date Data Source [id number] 08/19/2020 06:13:00 PM EDT [facility] Name Value Range Interpretation Code Description Data Victoria rce(s) Supporting Document(s) LACTIC ACID 1.1 mmol/L 0.5-2.2 [facility] ID Date Data Source [id number] 08/19/2020 06:08:00 PM EDT [facility] Name Value Range Interpretation Code Description Data Victoria rce(s) Supporting Document(s) PTT 30.6 sec 25.6-36.4 [facility] ID Date Data Source [id number] 08/19/2020 06:06:00 PM EDT [facility] Name Value Range Interpretation Code Description Data Victoria rce(s) Supporting Document(s) PROTIME 11.3 sec 9.4-12.4 [facility] INR 1.0 [facility] INR INTERPERTATION 2.0 -3.0 THERAPEUTIC MONITORING2.5-3.5 HEART VALVE REPLACEMENT ID Date Data Source [id number] 08/19/2020 05:56:00 PM EDT [facility] CBC WITH DIFF Name Value Range Interpretation Code Description Data Victoria rce(s) Supporting Document(s) WBC 10.9 K/uL 4.8-10.8 H [facility] RBC 4.43 M/uL 4.20-5.40 [facility] HEMOGLOBIN 13.1 gm/dL 12.0-16.0 [facility] HEMATOCRIT 39.5 % 36.0-48.0 [facility] MCV 89.1 fL 80.0-100.0 [facility] MCHC 33.3 % 30.0-36.5 [facility] MCH 29.6 pg 27.0-34.0 [facility] RDW 15.9 % 11.0-15.0 H [facility] PLATELET 314 K/uL 130-450 [facility] MPV 6.7 fL 6.0-12.0 [facility] NE% 67 % 37-80 [facility] LY% 25 % 10-50 [facility] MO% 7 % 0-12 [facility] Eosinophils [#/volume] in Blood by Automated count 1 % <=8 [facility] BA% 1 % <=3 [facility] NE# 7.2 K/uL 1.8-8.6 [facility] LYMPH# 2.7 K/uL 0.5-5.0 [facility] MONO# 0.7 K/uL 0.0-1.3 [facility] EOS# 0.1 K/uL 0.0-0.9 [facility] BASO# 0.1 K/ul 0.0-0.3 [facility] ID Date Data Source [id number] 08/16/2020 12:00:00 AM EDT [facility] Name Value Range Interpretation Code Description Data Victoria rce(s) Supporting Document(s) SARS-CoV2 Rapid Antigen Negative [facility] This lab was ordered by [facility] and reported by [facility]. ID Date Data Source [id number] 08/15/2020 07:15:28 PM EDT [facility] al left flank pain, r/o obstructive uropath [...] Echogenic hepatic parenchyma suggesting steatosis.IMPRESSION:No hydronephrosis.END OF [facility]ION[facility] then provides those same results to [facility]. Allresults are available to [facility] and [facility] provider portalusers. [facility] DICOM images are available to the[facility] provider portal users only. [facility] DICOMimages are not available to the [facility] provider portal users. There isno current [facility] cross-[facility] functionality allowing images to be available [facility] connectivity.Electronically signed By: Scottie Gonsales By: SCOTTIE RANDOLPHNDate: 08/15/2020 19:12 Name Value Range Interpretation Code Description Data [facility] Supporting Document(s) ID Date Data Source [id number] 08/15/2020 05:54:00 PM EDT [facility] Name Value Range Interpretation Code Description Data [facility] rce(s) Supporting Document(s) SODIUM 140 mmol/L 136-145 [facility] POTASSIUM 3.5 mmol/L 3.5-5.2 [facility] CHLORIDE 109 mmol/L 100-108 H [facility] CO2 23 mmol/L 21-32 [facility] GLUCOSE 91 mg/dL 70-100 [facility] BUN 18 mg/dL 7-21 [facility] CREATININE 0.9 mg/dL 0.6-1.3 [facility] Normal Kidney Function or Mild Disease - GFR >OR= 60Chronic Kidney Disease - GFR 15-59Renal Failure - GFR < 15GFR not calculated on patients under 18 years of age. CALCIUM 8.8 mg/dL 8.5-10.8 [facility] GFR >60 [facility] T BILI 0.3 mg/dL 0.0-1.2 [facility] T PROTEIN 7.1 gm/dL 6.4-8.2 [facility] ALBUMIN 4.0 gm/dL 3.4-4.8 [facility] ALK PHOS 102 U/L 40-150 [facility] ALT (SGPT) 43 U/L 0-55 [facility] AST (SGOT) 31 U/L 5-37 [facility] ID Date Data Source [id number] 08/15/2020 05:45:00 PM EDT [facility] Name Value Range Interpretation Code Description Data Victoria rce(s) Supporting Document(s) SERUM TEST NEGATIVE [facility] spital PREGS METHODOLOGY [facility] ID Date Data Source [id number] 08/15/2020 05:29:00 PM EDT [facility] CBC W/DIFF STAT Name Value Range Interpretation Code Description Data Victoria rce(s) Supporting Document(s) WBC 11.9 K/uL 4.8-10.8 H [facility] RBC 3.97 M/uL 4.20-5.40 L [facility] HEMOGLOBIN 11.7 gm/dL 12.0-16.0 L [facility] HEMATOCRIT 35.4 % 36.0-48.0 L [facility] MCV 89.2 fL 80.0-100.0 [facility] MCHC 33.1 % 30.0-36.5 [facility] MCH 29.5 pg 27.0-34.0 [facility] RDW 15.9 % 11.0-15.0 H [facility] PLATELET 317 K/uL 130-450 [facility] MPV 6.7 fL 6.0-12.0 [facility] NE% 69 % 37-80 [facility] LY% 24 % 10-50 [facility] MO% 6 % 0-12 [facility] Eosinophils [#/volume] in Blood by Automated count 1 % <=8 [facility] BA% 0 % <=3 [facility] NE# 8.3 K/uL 1.8-8.6 [facility] LYMPH# 2.9 K/uL 0.5-5.0 [facility] MONO# 0.7 K/uL 0.0-1.3 [facility] EOS# 0.1 K/uL 0.0-0.9 [facility] BASO# 0.0 K/ul 0.0-0.3 [facility] ID Date Data Source [id number] 08/17/2020 09:03:00 AM EDT [facility]BS[facility] 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 [facility] RBC >100 /HPF NONE SEEN ! [facility] [employer] has definedMicroscopic Hematuria as 3 or more RBC per highpowered field from a single positive urinalysis withmicroscopy. BACTERIA MODERATE /HPF NONE SEEN ! [facility] EPITHELIAL CELLS MODERATE /HPF NONE SEEN ! [facility] spital ID Date Data Source [id number] 08/15/2020 05:16:00 PM EDT [facility] Name Value Range Interpretation Code Description Data [facility] rce(s) Supporting Document(s) COLOR LUIS M [facility] APPEARANCE HAZY CLEAR ! [facility] SPECIFIC GRAVITY 1.025 1.000-1.030 [facility] ital pH 5.0 5.0-8.0 [facility] LEUKOCYTES 2+ NEGATIVE ! [facility] NITRATE NEGATIVE NEGATIVE [facility] PROTEIN 100 [ 2+] mg/dL NEGATIVE ! [facility] GLUCOSE NORMAL mg/dL NORMAL [facility] KETONE NEGATIVE mg/dL NEGATIVE [facility] UROBILINOGEN 1 mg/dL NORMAL ! [facility] BILIRUBIN NEGATIVE mg/dL NEGATIVE [facility] HEMOGLOBIN 3+ NEGATIVE ! [facility] ID Date Data Source [id number] 08/15/2020 04:21:10 PM EDT [facility] Note Status: FINAL (SIGNED)Full Name: Kade JONES Date: 1985Visit ID: [id number] Record Number: [id number]: 33YSex: FemaleRoom Location: ER ROOMSBed Location: ER BD 11Date of Service: 02/16/2019 15:37Creation Date: 02/16/2019 15:37Created By: [facility] Physician: NONE, NONETime patient first seen: [id number] Informant: SureshHPSusan Chief Complaint: Left flank pain HPI duration: [...] Urine Turbidity;HAZY;;;Final Result ;02/16/2019 14:09:00URINALYSIS ROUTINE;Dipstick Specific [place];1.020;(1.000-1.030);;Final Result ;02/16/2019 14:09:00URINALYSIS ROUTINE;Dipstick Urine pH;6.0;(5.0-8.0);;Final Result [...] and agree with or edited the findings. [facility] sub[facility] Rad[facility] results to [facility] and [facility] then provides those same results to [facility]. All results are available to [facility] and [facility] provider portal users. [facility] DICOM images are available to the [facility] provider portal users only. [facility] DICOM images are not available to the [facility] provider portal users. There is no current [facility] cross-[facility] functionality allowing images to be available through the [facility] to [facility] connectivity. Interpreted By: Rosaura Stephens M.D. Electronically [...] symptoms. Your prescription has been sent to [facility] in [place]. Disposition: homePatient did not require critical care timeMidlevel signature: Guerda MORALES signature date: 02/17/2019 10:53Attending Physician Attestation: I have reviewed the midlevel documentation, agree with the documentation, medical decision making and treatment plan as outlined by the midlevelPhysician signature: Patrica MITCHELLsihever signature date: 02/19/2019 04:58 Note Status: FINAL (SIGNED)Full Name: Kade JONES Date: 1985Visit ID: [id number] Record Number: [id number]: 33YSex: FemaleRoom Location: ER ROOMSBed Location: ER BD 11Date of Service: 02/16/2019 15:37Creation Date: 02/16/2019 15:37Created [facility] Physician: NONE, NONETime patient first seen: [phone] [...] Urine Turbidity;HAZY;;;Final Result ;02/16/2019 14:09:00URINALYSIS ROUTINE;Dipstick Specific [place];1.020;(1.000-1.030);;Final Result ;02/16/2019 14:09:00URINALYSIS ROUTINE;Dipstick Urine pH;6.0;(5.0-8.0);;Final Result [...] agree with or edited the findings.. . [facility] submits Radiology results to [facility] and. [facility] then provides those same results to [facility]. All. results are available to [facility] and [facility] provider portal. users. [facility] DICOM images are available to the. [facility] provider portal users only. [facility] DICOM. images are not available to the [facility] provider portal users. There is. no current [facility] cross-[facility] functionality allowing images to be available through. the [facility] to [facility] connectivity.. Interpreted By: Rosaura Stephens M.D.. Electronically [...] hemorrhagic cystitis Diagnosis level 3Disposition time: 1830 Discharge condition: Improved; StableDischarge plan: Advised rest and plenty of clear fluids. Take Bactrim as directed, finish entire course. Take Tylenol as needed for the discomfort. Follow up with your urologist within the next week as an outpatient. Return to the emergency department with any new or worsening symptoms.. . Your prescri ption has been sent to [facility] in [place]. Disposition: homePatient did not require critical care timeMidlevel signature: Guerda MORALES signature date: 02/17/2019 10:53Attending Physician Attestation: I have reviewed the midlevel documentation, agree with the documentation, medical decision making and treatment plan as outlined by the midlevelPhysician signature: Asim MITCHELL signature date: 02/19/2019 04:58 Name Value Range Interpretation Code Description Data [facility] rce(s) Supporting Document(s) ID Date Data Source [id number] 08/15/2020 04:21:10 PM [facility]T [facility] Status: FINAL (SIGNED)Full Name: Kade JONES Date: 1985Visit ID: [id number] Record Number: [id number]: 33YSex: FemaleRoom Location: ER ROOMSBed Location: ER BD 11Date of Service: 02/16/2019 15:37Creation Date: 02/16/2019 15:37Created By: [facility] Physician: NONE, NONETime patient first seen: [phone] [...] Urine Turbidity;HAZY;;;Final Result ;02/16/2019 14:09:00URINALYSIS ROUTINE;Dipstick Specific [place];1.020;(1.000-1.030);;Final Result ;02/16/2019 14:09:00URINALYSIS ROUTINE;Dipstick Urine pH;6.0;(5.0-8.0);;Final Result [...] and agree with or edited the findings. [facility] submits Radiology results to [facility] and [facility] then provides those same results to [facility]. All results are available to [facility] and [facility] provider portal users. [facility] DICOM images are available to the [facility] provider portal users only. [facility] DICOM images are not available to the [facility] provider portal users. There is no current [facility] cross-[facility] functionality allowing images to be available through the [facility] to [facility] connectivity. Interpreted By: Rosaura Stephens M.D. Electronically [...] symptoms. Your prescription has been sent to [facility] in [place]. Disposition: homePatient did not require critical care timeMidlevel signature: Guerda MORALES signature date: 02/17/2019 10:53Attending Physician Attestation: I have reviewed the midlevel documentation, agree with the documentation, medical decision making and treatment plan as outlined by the mayo clinic health systemlevelPhysician signature: Asim MITCHELL signature date: 02/19/2019 04:58 Note Status: FINAL (SIGNED)Full Name: Kade JONES Date: 1985Visit ID: [id number] Record Number: [id number]: 33YSex: FemaleRoom Location: ER ROOMSBed Location: ER 11Date of Service: 02/16/2019 15:37Creation Date: 02/16/2019 15:37Created By: [facility] Physician: NONE, NONETime patient first seen: 0267 Informant: PatientHPI Chief Complaint: Left flank pain [...] Urine Turbidity;HAZY;;;Final Result ;02/16/2019 14:09:00URINALYSIS ROUTINE;Dipstick Specific Cumming;1.020;(1.000-1.030);;Final Result ;02/16/2019 14:09:00URINALYSIS ROUTINE;Dipstick Urine pH;6.0;(5.0-8.0);;Final Result [...] agree with or edited the findings.. . [facility] submits Radiology results to [facility] and. [facility] then provides those same results to [facility]. All. results are available to [facility] and [facility] provider portal. users. [facility] DICOM images are available to the. [facility] provider portal users only. [facility] DICOM. images are not available to the [facility] provider portal users. There is. no current [facility] cross-[facility] functionality allowing images to be available through. the [facility] to [facility] connectivity.. Interpreted By: Rosaura Stephens M.D.. Electronically [...] hemorrhagic cystitis Diagnosis level 3Disposition time: 1830 Discharge condition: Improved; StableDischarge plan: Advised rest and plenty of clear fluids. Take Bactrim as directed, finish entire course. Take Tylenol as needed for the discomfort. Follow up with your urologist within the next week as an outpatient. Return to the emergency department with any new or worsening symptoms.. . Your prescri ption has been sent to [facility] in [place]. Disposition: homePatient did not require critical care timeMidlevel signature: Guerda MORALES signature date: 02/17/2019 10:53Attending Physician Attestation: I have reviewed the midlevel documentation, agree with the documentation, medical decision making and treatment plan as outlined by the midlevelPhysician signature: Asim MITCHELL signature date: 02/19/2019 04:58 Name Value Range Interpretation Code Description Data Victoria rce(s) Supporting Document(s) ID Date Data Source [id number] 08/09/2020 11:22:00 AM T [facility] Run: 08/09/20 1122 INTERFACED REPORT Name: Taniya Field Age/Sex: 34/F Location: [facility] Acct: [id number] Unit: [id number] Status: REG REF Room/Bed: Re08/06/20 Disch: Att Dr: Stuart Carolina MD Spec Num: [id number] Recd: 08/06/201019 Status: AMERICA Lopez Num: [id number] SpType: MED CYTO Sub Dr: Stuart Carolina MD ProcFlow Cytometry, FLOW FIRST MARKER, FLOW EACH ADDITIONAL MARKER/23 DX: PNH- PAROXYSMAL NOCTURNAL HEMOGLOBINURLA FLOW CYTOMETRY, peripheral blood specimen: - No diagnostic immunophenotypic abnormalities detected (see uVore report attached) [id number] / [id number] [facility] did two separate flow cytometry, one to rule out lymphoma and another one specific for PNH The result shows no evidence of PNH ( see separate report) Signed (signature on file) Weston Osman MD 08/08/20 0831[facility] END OF REPORT Name Value Range Interpretation Code Description Data [facility] Supporting Document(s) ID Date Data Source [id number] 07/31/2020 03:56:00 PM EDT [facility] ([facility]) Name Value Range Interpretation Code Description Data [facility] rce(s) Supporting Document(s) Rubella virus IgG Ab [Units/volume] in Serum or Plasma by Immunoassay 1.49 index [facility] ([facility]) <content>Non-immune <0.90</content >
<content>Equivocal 0.90 - 0.99</content>
<content>Immune >0.99</content>
<content></content> Measles virus IgG Ab [Units/volume] in Serum by Immunoassay 32.2 AU/m L [facility] ([facility]) <content>Negative <13.5</content>
<content>Equivocal 13.5 - 16.4</content>
<content>Positive >16.4</content>
<content> Presence of antibodies to Rubeola is presumptive evidence</content>
<content>of immunity except when acute infection is suspected.</content>
<content></content> Mumps virus IgG Ab [Units/volume] in Serum Laboratory test resul t Abnormal (applies to non-numeric results) [facility] ([facility]) <content>Negative <9.0</content>
<content>Equivocal 9.0 - 10.9</content>
<content>Positive >10.9</content>
<content>A positive result generally indicates past exposure to</content>
<content>Mumps virus or previous vaccination.</content>
<content>Performed at: [facility]</content>
<content>[address] [place] [id number]</content>
<content>Pig Lead Melter Helper: Jimena Jay MD, Phone: [phone]</content>
<content></content> ID Date Data Source [id number] 08/02/2020 11:14:00 AM EDT [facility] Name Value Range Interpretation Code Description Data Victoria rce(s) Supporting Document(s) Rubella IgG Ab,S 1.49 index Immune >0.99 [place] [facility] Non-imm une <0.90 Equivocal 0.90 - 0.99 Immune >0.99 Rubeola IgG Ab,S 32.2 AU/mL Immune >16.4 [place] [facility] Negati ve <13.5 Equivocal 13.5 - 16.4 Positive >16.4 Presence of antibodies to Rubeola is presumptive evidence of immunity except when acute infection is suspected. Mumps IgG,S <9.0 AU/mL Immune >10.9 A [place] [facility] Negativ e <9.0 Equivocal 9.0 - 10.9 Positive > 10.9 A positive result generally indicates past exposure to Mumps virus or previous vaccination. Performed at: [facility] [id number] [employer] Helper: Jimena Jay MD, Phone: [phone] ID Date Data Source [id number] 07/31/2020 04:51:00 PM EDT [facility] STUART CAROLINA MD [facility] HEMATOLOGY STUART CAROLINA MD [facility] HEMATOLOGY [facility] [place] [address], [place], [address] PHONE STUART CAROLINA MD [facility] CC HEMATOLOGY STUART CAROLINA MD [facility] HEMATOLOGY [facility] [place] [address], [place], [address] PHONE Name Value Range Interpretation Code Description Data Victoria rce(s) Supporting Document(s) WHITE BLOOD COUNT 8.12 10^3/uL 4.00-10.50 N [place] [facility] RED BLOOD COUNT 4.10 10^6/uL 3.90-5.20 [facility] HEMOGLOBIN 11.6 G/DL 11.5-15.6 N [facility] HEMATOCRIT 35.1 % 35.0-46.0 N [facility] MCV 85.6 FL 80.0-100.0 N [facility] MCH 28.3 PG 27.0-34.0 N [facility] MCHC 33.0 G/DL 32-36 N [facility] RDW 15.7 % 11.5-14.5 H [facility] PLATELET COUNT 305 10^3/uL 130-400 N [facility] MPV 9.7 FL 8.7-13.2 N [facility] GRAN % (AUTO) 68.1 % 42.0-75.0 N [facility] LYMPH % (AUTO) 23.8 % 20.0-51.0 N [facility] MONO % (AUTO) 7.0 % 2.0-15.0 N [facility] EOS % (AUTO) 0.5 % 0.0-11.0 N [facility] BASO % (AUTO) 0.2 % 0.0-2.0 N [facility] IG % (AUTO) 0.4 % 1.00-5.00 [facility] IG # (AUTO) 0.0 10^3/uL <0.5 [facility] GRAN # (AUTO) 5.53 10^3/uL 1.50-6.50 N [facility] LYMPH # (AUTO) 1.9 k/uL 1.0-5.0 N [facility] MONO # (AUTO) 0.57 k/uL 0.20-1.50 N [facility] EOS # (AUTO) 0.04 10^3/uL 0.00-1.10 N [facility] BASO # (AUTO) 0.02 10^3/uL 0.00-0.20 N [facility] ID Date Data Source [id number] 07/31/2020 05:51:00 PM EDT [facility] STUART CAROLINA MD [facility] HEMATOLOGY STUART CARLOINA MD [facility] HEMATOLOGY [facility] [place] [address], [phone] PHONE STUART CAROLINA MD [facility] HEMATOLOGY STUART CAROLINA MD [facility] HEMATOLOGY [facility] t [facility] [place] [address], [place], [phone] PHONE Name Value Range Interpretation Code Description Data Victoria rce(s) Supporting Document(s) IRON 36 UG/DL 35-150 N [facility] TIBC 395 UG/DL 260-400 N [facility] % IRON SATURATION 9.0 % 20-50 L [place] [facility] ID Date Data Source [id number] 08/02/2020 11:24:00 AM EDT [facility] ST[facility]OLINA MD [facility] HEMATOLOGY STUART CAROLINA MD [facility] HEMATOLOGY [facility] [place] [address] [phone] PHONE STUART CAROLINA MD [facility] HEMATOLOGY STUART CAROLINA MD [facility] HEMATOLOGY [facility] [place] [address], [place], [address] PHONE Name Value Range Interpretation Code Description Data Victoria rce(s) Supporting Document(s) Transferrin 332 mg/dL 192-364 [facility] Performed at: RN - [facility] [address] [id number] [employer] Lead Melter Helper: Jimena Jay MD, Phone: [phone] ID Date Data Source [id number] 07/31/2020 05:51:00 PM EDT [facility] STUART CAROLINA MD [facility] CC HEMATOLOGY STUART CAROLINA MD [facility] [place] [address], [place], [address] PHONE STUART CAROLINA MD [facility] CC HEMATOLOGY STUART CAROLINA MD [facility] HEMATOLOGY [facility] [place] [address], [address], [place], [address] PHONE Name Value Range Interpretation Code Description Data Victoria rce(s) Supporting Document(s) FERRITIN 16.7 NG/ML 22-322 L [facility] ID Date Data Source [id number] 07/26/2020 03:50:00 PM EDT [facility] ([facility] [...] ([facility]) ID Date Data Source [id number] 07/26/2020 03:21:00 PM EDT [facility] ([facility]) Name Value Range Interpretation Code Description Data Victoria rce(s) Supporting Document(s) Laboratory test finding (navigational concept) Laboratory test result [facility] ([facility]) ID Date Data Source [id number] 07/26/2020 03:17:00 PM EDT [facility] ([facility]) Name Value Range Interpretation Code Description Data Victoria rce(s) Supporting Document(s) Laboratory test finding (navigational concept) Laboratory test result [facility] ([facility]) Bacteria identified in Urine by Culture Laboratory test result [facility] ([facility]) CULTURE, URINE, ROUTINE Micro Number: [id number] Test Status: Final Specimen Source: URINE Specimen Quality: Adequate Result: Growth of mixed radha was isolated, suggesting probable contamination. No further testing will be performed. If clinically indicated, recollection using a method to minimize contamination, with prompt transfer to Urine Culture Transport Tube, is recommended. ID Date Data Source [id number] 07/25/2020 04:39:00 [place] [address] Patient Name: Taniya Field Exam Date: 07/25/20 [...] hepatomegaly and steatosis. Professional interpretation performed by [facility] Medical Imaging at [facility] . End of diagnostic report: [id number] Signed: Jose Nolasco II, MD 07/25/20 1653 Interpreted by: Sonu Nolascocribed by: Jose Nolasco Name Value Range Interpretation Code Description Data Victoria rce(s) Supporting Document(s) ID Date Data Source [id number] 07/25/2020 04:21:20 PM EDT [facility] Note Status: FINAL (SIGNED)Full Name: Kade JONES Date: 1985Visit ID: [id number] Record Number: [id number]: 34YSex: FemaleRoom Location: ER ROOMSBed Location: ER 10Date of Service: 06/28/2020 11:22Creation Date: 06/28/2020 11:22Created By: [facility] Physician: FORTUNATO CONTRERASTime patient first seen: [...] Urine Turbidity;TURBID;;;Final Result ;06/28/2020 11:25:19URINALYSIS ROUTINE;Dipstick Specific Cumming;1.015;(1.000-1.030);;Final Result ;06/28/2020 11:25:19URINALYSIS ROUTINE;Dipstick Urine pH;5.0;(5.0-8.0);;Final Result [...] did not require critical care timeMidlevel signature: PRAKASH JASSO PAMidlevel signature date: 06/30/2020 10:59Physician signature: FAUSTO AMADOhysician signature date: 07/24/2020 07:50 Name Value Range Interpretation Code Description Data Victoria rce(s) Supporting Document(s) ID Date Data Source [id number] 07/25/2020 03:46:00 PM EDT [facility] Name Value Range Interpretation Code Description Data Victoria rce(s) Supporting Document(s) Sodium [Moles/volume] in Serum or Plasma 138 meq/L 135-145 [facility] ([facility]) Potassium [Moles/volume] in Serum or Plasma 4.4 meq/L 3.5-5.3 [facility] ([facility]) Chloride [Moles/volume] in Serum or Plasma 104 meq/L 94-110 [facility] ([facility]) Carbon dioxide, total [Moles/volume] in Serum or Plasma 28 meq/L 22 -33 [facility] ([facility]) Anion gap in Serum or Plasma 10 5-16 [facility] ([facility]) Creatine [Mass/volume] in Serum or Plasma 0.8 mg/dL 0.6-1.4 [facility] ([facility]) Urea nitrogen [Mass/volume] in Serum or Plasma 14 mg/dL 7-25 [facility] ([facility]) Glucose [Mass/volume] in Serum or Plasma 92 mg/dL 70-100 [facility] ([facility]) Glomerular filtration rate/1.73 sq M.pre dicted [Volume Rate/Area] in Serum or Plasma by Creatinine-based formula (MDRD) 81.2 mL/min [facility] ([facility]) Stage G2 - Mildly decreased kidney funct [...] ([facility]) ID Date Data Source [id number] 07/25/2020 03:46:00 PM EDT [facility] ([facility] [...] Blood by Automated count 0.67 k/uL 0.20-1.50 [facility] ID Date Data Source [id number] 07/25/2020 04:14:00 PM EDT [facility] Name Value Range Interpretation Code Description Data Victoira rce(s) Supporting Document(s) WHITE BLOOD COUNT 8.64 10^3/uL 4.00-10.50 N [place] [facility] RED BLOOD COUNT 4.27 10^6/uL 3.90-5.20 N [facility] th HEMOGLOBIN 11.6 G/DL 11.5-15.6 N [facility] HEMATOCRIT 36.6 % 35.0-46.0 N [facility] MCV 85.7 FL 80.0-100.0 N [facility] MCH 27.2 PG 27.0-34.0 N [facility] MCHC 31.7 G/DL 32-36 L [facility] RDW 16.1 % 11.5-14.5 H [facility] PLATELET COUNT 363 10^3/uL 130-400 N [facility] MPV 9.3 FL 8.7-13.2 N [facility] GRAN % (AUTO) 64.1 % 42.0-75.0 N [facility] LYMPH % (AUTO) 25.8 % 20.0-51.0 N [place] [facility] MONO % (AUTO) 7.8 % 2.0-15.0 N [facility] EOS % (AUTO) 1.5 % 0.0-11.0 N [facility] BASO % (AUTO) 0.2 % 0.0-2.0 N [facility] IG % (AUTO) 0.6 % 1.00-5.00 [facility] IG # (AUTO) 0.1 10^3/uL <0.5 [facility] GRAN # (AUTO) 5.54 10^3/uL 1.50-6.50 N [facility] LYMPH # (AUTO) 2.2 k/uL 1.0-5.0 N [facility] MONO # (AUTO) 0.67 k/uL 0.20-1.50 N [facility] EOS # (AUTO) 0.13 10^3/uL 0.00-1.10 N [facility] BASO # (AUTO) 0.02 10^3/uL 0.00-0.20 N [facility] ID Date Data Source [id number] 07/25/2020 04:24:00 PM EDT [facility] Name Value Range Interpretation Code Description Data Victoria rce(s) Supporting Document(s) SODIUM 138 MEQ/L 135-145 N [facility] POTASSIUM 4.4 MEQ/L 3.5-5.3 N [facility] CHLORIDE 104 MEQ/L 94-110 N [facility] CARBON DIOXIDE 28 MEQ/L 22-33 N [facility] ANION GAP 10 5-16 N [facility] BLOOD UREA NITRO 14 MG/DL 7-25 N [facility] CREATININE 0.8 MG/DL 0.6-1.4 N [facility] GFR 81.2 ML/MIN [facility] Stage G2 - Mildly decreased kidney func tion The GFR is an estimate of the Glomerular Filtration Rate. It is an aid to assess a patient's renal function. It is not a conclusive diagnosis of kidney disease. GFR normal is >=90 The MDRD GFR calculation is considered valid between the ages of 18 and 75 years only. BUN/CREAT RATIO 17 8-36 N [facility] GLUCOSE 92 MG/DL 70-100 N [facility] CA 9.1 MG/DL 8.7-10.5 [facility] BILIRUBIN,TOTAL 0.3 MG/DL 0.1-1.3 [facility] AST 57 U/L 5-40 H [facility] ALT 53 U/L 5-48 H [facility] ALKALINE PHOSPHATASE 117 U/L 40-140 N [facility] alth TOTAL PROTEIN 6.8 G/DL 5.9-8.3 N [facility] ALBUMIN 4.6 G/DL 3.0-5.1 N [facility] GLOBULIN 2.2 G/DL 1.5-3.5 N [facility] ALB/GLOB RATIO 2.1 G/DL 1.0-3.0 N [facility] ID Date Data Source [id number] 07/25/2020 02:11:00 [place] [address] HEALTH INFORMATION MANAGEMENT ED/UC Physician Report : [id number] Signed Patient: Taniya Field Acct:[id number] Unit: Gaetano [id number] : 1985 Arrival Date: 07/25/20 Age/Sex: 34 [...] Normal Affect Skin Skin exam: Dry, Intact, [place] and Warm Course Course Course Narrative: Patient [...] on File>> Initializing User: Lico DIAZ 07/25/20 1416 Signed by: Lico Llamas 07/25/20 5388 Estevan Rich MD 07/25/20 2153 Name Value Range Interpretation Code Description Data Victoria rce(s) Supporting Document(s) ID Date Data Source [id number] 07/25/2020 01:46:00 PM EDT [facility] ([facility] [...] (applies to non-numeric results) [facility] ([facility]) Bilirubin.total [Presence] in Urine by Test strip [facility] Nitrate [Presence] in Urine Laboratory test result [facility]) Urobilin [Presence] in Urine Laboratory test result 0-0 [facility] RBC,Ur Laboratory test result 0-2 Abnormal (applies to non -numeric results) [facility] ([facility]) Mucus [Presence] in Urine sediment by Light microscopy Laborator y test result [facility] ([facility]) Epithelial cells [Presence] in Urine sediment by Light microscopy Laboratory test result 0-0 [facility] ID Date Data Source [id number] 07/25/2020 01:46:00 PM EDT [facility] ([facility]) Name Value Range Interpretation Code Description Data Victoria rce(s) Supporting Document(s) Choriogonadotropin.beta subunit ( test) [Pres ence] in Serum or Plasma Laboratory test result [facility] Choriogonadotropin ( test) [Presence] in Urine Labo ratory test result [facility] ([facility] icine) Choriogonadotropin [Units/volume] in Urine Laboratory test result [facility] ([facility]) Reference range is Negative To ensure best sensitivity, first morning void is recommended. Dilute, low specific gravity urine may give a falsely negative result. If is suspected, repeat testing with a new specimen 48-72 hours later. Choriogonadotropin [Units/volume] in Urine Laboratory test result [facility] ([facility]) ID Date Data Source [id number] 07/25/2020 04:23:00 PM EDT [facility] Name Value Range Interpretation Code Description Data Victoria rce(s) Supporting Document(s) COLOR,UR LUIS M YELLOW A [facility] APPEARANCE,UR CLOUDY CLEAR A [facility] PH,UR 6.0 5.0-8.0 [facility] SPECIFIC GRAVITY,UR 1.019 1.002-1.035 N [facility] PROTEIN,UR 100 MG/DL NEGATIVE A [facility] GLUCOSE, UR NEGATIVE MG/DL NEGATIVE [facility] KETONES,UR NEGATIVE MG/DL NEGATIVE [facility] OCCULT BLOOD,UR LARGE NEGATIVE A [facility] NITRATE,UR NEGATIVE NEGATIVE [facility] LEUKOCYTE ESTERASE ,UR TRACE NEGATIVE A [facility] BILIRUBIN,UR NEGATIVE NEGATIVE [facility] UROBILINOGEN,UR 0.2-1.0 EU MG/DL NEG-0-1.0 [facility] RBC,UR >100 PER HPF 0-2 A [facility] URINE EPITH MANY PER/LPF FEW-MOD [facility] MUCUS,UR FEW PER HPF NONE SEEN [facility] ID Date Data Source [id number] 07/25/2020 04:20:00 PM EDT [facility] Name Value Range Interpretation Code Description Data Victoria rce(s) Supporting Document(s) HCG QUALITATIVE SPECIMEN [facility]INE [facility] ID Date Data Source [id number] 07/25/2020 04:20:00 PM EDT [facility] Name Value Range Interpretation Code Description Data Victoria rce(s) Supporting Document(s) HCG RESULT,U NEGATIVE [facility] Reference range is Negative To ensure best sensitivity, first morning void is recommended. Dilute, low specific gravity urine may give a falsely negative result. If is suspected, repeat testing with a new specimen 48-72 hours later. ID Date Data Source [id number] 07/02/2020 01:15:21 PM EDT [facility] PATIENT INFORMATIONPatient MRN Name Date of [id number] Taniya Field 1985 34 y.o. Weight Gender PT Class 118.4 kg F EmergencyPT Location Admission Date/Time [facility]4 --- --- EPI ID [facility] Admitting Provider [id number] ---[facility] ADULT EDHistoryChief ComplaintPatient presents with Flank PainPt [...] follow-up as directed indischarge instructions.ED AttestationAttestationGatElton amato PA-C0/ 1315 Name Value Range Interpretation Code Description Data Victoria rce(s) Supporting Document(s) ID Date Data Source [id number] 07/03/2020 04:44:00 PM T [facility] Release to patient->ImmediateUnit Colle t Name Value Range Interpretation Code Description Data Victoria rce(s) Supporting Document(s) URINE CULTURE [facility] ID Date Data Source [id number] 07/02/2020 12:59:00 PM EDT [facility] Release to patient->ImmediateUnit [facility] t Name Value Range Interpretation Code Description Data Victoria rce(s) Supporting Document(s) eGFR BLACK [facility] For both eGFR and eGFR BLACK, the accuracy of theeGFR calculation is contingent on a stable level of serumcreatinine. The eGFR calculation is based on an IDMS-Traceablecreatinine assay and is normalized to 1.73 "meters squared"body surface area. An eGFR less than 60 may alter clinicalmanagement decisions. An eGFR greater than or equal to 60 doesnot exclude kidney disease. ID Date Data Source [id number] 07/02/2020 12:59:00 PM EDT [facility] Release to patient->ImmediateUnit [facility] t Name Value Range Interpretation Code Description Data Victoria rce(s) Supporting Document(s) eGFR [facility] ID Date Data Source [id number] 07/02/2020 12:26:00 PM EDT [facility] Release to patient->ImmediateUnit [facility] t Name Value Range Interpretation Code Description Data Victoria rce(s) Supporting Document(s) DIFFERENTIAL AUTOMATED Normal (applies to non-numeric res ults) [facility] ID Date Data Source [id number] 07/02/2020 02:01:00 PM EDT [facility] Release to patient->ImmediateUnit [facility] [facility] t Name Value Range Interpretation Code Description Data Victoria rce(s) Supporting Document(s) SQUAMOUS EPITH, UR PRESENT [NEGATIVE] Abnormal (applies to n on-numeric results) [facility] CAOX YEISON, UR PRESENT [NEGATIVE] Abnormal (applies to non-numeric results) [facility] ID Date Data Source [id number] 07/02/2020 02:01:00 PM EDT [facility] Release to patient->ImmediateUnit [facility] t Name Value Range Interpretation Code Description Data Victoria rce(s) Supporting Document(s) RBC, UR 0-2 Normal (applies to non-numeric resul ts) [facility] WBC, UR 0-9 Normal (applies to non-numeric resul ts) [facility] BACTERIA, UR PRESENT /[HPF] [NEGATIVE] Abnormal (applie s to non-numeric results) [facility] ID Date Data Source [id number] 07/02/2020 12:59:00 PM EDT [facility] Release to patient->ImmediateUnit Collec t Name Value Range Interpretation Code Description Data Victoria rce(s) Supporting Document(s) SODIUM 135-145 Normal (applies to non-numeric resul ts) [facility] POTASSIUM 3.5-5.1 Normal (applies to non-numeric resul ts) [facility] CHLORIDE 98-108 Normal (applies to non-numeric resul ts) [facility] CO2 22-30 Normal (applies to non-numeric results) [facility] ANION GAP 4-16 Normal (applies to non-numeric resul ts) [facility] BUN 8-20 Normal (applies to non-numeric results) [facility] CREATININE 0.5-0.9 Normal (applies to non-numeric resul ts) [facility] GLUCOSE 65-100 Normal (applies to non-numeric resul ts) [facility] CALCIUM 8.5-10.2 Normal (applies to non-numeric resul ts) [facility] ID Date Data Source [id number] 07/02/2020 12:30:00 PM EDT [facility] Release to patient->ImmediateUnit Collec t Name Value Range Interpretation Code Description Data Victoria rce(s) Supporting Document(s) COLOR, UR YELLOW Normal (applies to non-numeric resul ts) [facility] APPEARANCE, UR CLOUDY [CLEAR] Abnormal (applies to non-numeric results) [facility] GLUCOSE, UR NEG mg/dL [NEGATIVE] Normal (applies to non-numeric resu lts) [facility] KETONES, UR NEG mg/dL [NEGATIVE] Normal (applies to non-numeric resu lts) [facility] SPEC GRAVITY, UR 1.005-1.030 [facility] BLOOD, UR NEG [NEGATIVE] Normal (applies to non-numeric resul ts) [facility] PH, UR 5.0-8.0 Normal (applies to non-numeric resul ts) [facility] PROTEIN, UR NEG mg/dL [NEGATIVE] Normal (applies to non-numeric resu lts) [facility] NITRITES, UR NEG [NEGATIVE] Normal (applies to non-numeric res ults) [facility] LEUK ESTERASE, UR NEG [NEGATIVE] Normal (applies to non-numeri c results) [facility] ID Date Data Source [id number] 07/02/2020 12:26:00 PM EDT [facility] Release to patient->ImmediateUnit Colle t Name Value Range Interpretation Code Description Data Victoria rce(s) Supporting Document(s) WBC 4.0-11.0 Normal (applies to non-numeric resul ts) [facility] RBC 3.80-5.20 Normal (applies to non-numeric resul ts) [facility] HGB 12.0-16.0 Normal (applies to non-numeric resul ts) [facility] HCT 35-47 Normal (applies to non-numeric results) [facility] MCV 80-100 Normal (applies to non-numeric resul ts) [facility] MCH 26.0-34.0 Normal (applies to non-numeric resul ts) [facility] MCHC 31.0-37.5 Normal (applies to non-numeric resul ts) [facility] RDW 0.0-15.2 Above high normal [facility] PLATELET COUNT 150-450 Normal (applies to non-numeric r esults) [facility] NEUTROPHILS 45-75 Normal (applies to non-numeric resu lts) [facility] LYMPHOCYTES 15-45 Normal (applies to non-numeric resu lts) [facility] MONOCYTES 0-15 Normal (applies to non-numeric resul ts) [facility] EOSINOPHILS 0-5 Normal (applies to non-numeric resu lts) [facility] BASOPHILS 0-3 Normal (applies to non-numeric resul ts) [facility] NEUTROPHIL # 1.8-8.0 Normal (applies to non-numeric res ults) [facility] LYMPHOCYTE # 1.0-4.8 Normal (applies to non-numeric res ults) [facility] MONOCYTE # 0.1-1.0 Normal (applies to non-numeric resul ts) [facility] EOSINOPHIL # 0.0-0.6 Normal (applies to non-numeric res ults) [facility] BASOPHIL # 0.0-0.2 Normal (applies to non-numeric resul ts) [facility] ID Date Data Source [id number] 06/30/2020 08:42:10 PM EDT [facility] Note Status: FINAL (SIGNED)Full Name: MICHELLE HUERTA LASELLEBirth Date: 1985Visit ID: [id number] Record Number: [id number]: 34YSex: FemaleRoom Location: ER ROOMSBed Location: ER BD 1Date of Service: 06/20/2020 09:30Creation Date: 06/20/2020 09:30[facility] Physician: FORTUNATO CONTRERASTime patient first seen: [...] Care URINE DIPSTICK ;Once;MYLES LEE;06/20/2020;URINALYSIS ROUTINE ;Once;EMILY COOK;Today06/21/2020;ED-NPO ;Meals;MYLES LEE;06/20/2020;CULTURE URINE ;Once;ABBEY EMILY;Laboratory resultsLab Results for the past 24 hoursOrder;Test;Value;Reference Range;Comments;Status;CollectionURINALYSIS ROUTINE;Dipstick Urine Color;LUIS M;;;Final Result ;06/20/2020 09:30:00URINALYSIS ROUTINE;Dipstick Urine Turbidity;CLOUDY;;;Final Result ;06/20/2020 09:30:00URINALYSIS ROUTINE;Dipstick Specific [place];1.025;(1.000-1.030);;Final Result ;06/20/2020 09:30:00URINALYSIS ROUTINE;Dipstick Urine pH;5.0;(5.0- 8.0);;Final [...] not require critical care timeMidlevel signature: ARCHIE MORALESilharleen signature date: 06/20/2020 18:10Physician signature: FAUSTO AMADOhysician signature date: 06/28/2020 07:19 Name Value Range Interpretation Code Description Data Victoria rce(s) Supporting Document(s) ID Date Data Source [id number] 06/28/2020 11:59:00 AM EDT [facility] al Name Value Range Interpretation Code Description Data Victoria rce(s) Supporting Document(s) SODIUM 138 mmol/L 136-145 [facility] POTASSIUM 4.2 mmol/L 3.5-5.2 [facility] CHLORIDE 107 mmol/L 100-108 [facility] CO2 23 mmol/L 21-32 [facility] GLUCOSE 90 mg/dL 70-100 [facility] BUN 15 mg/dL 7-21 [facility] CREATININE 0.7 mg/dL 0.6-1.3 [facility] Normal Kidney Function or Mild Disease - GFR >OR= 60Chronic Kidney Disease - GFR 15-59Renal Failure - GFR < 15GFR not calculated on patients under 18 years of age. CALCIUM 9.0 mg/dL 8.5-10.8 [facility] GFR >60 [facility] T BILI 0.3 mg/dL 0.0-1.2 [facility] T PROTEIN 7.1 gm/dL 6.4-8.2 [facility] ALBUMIN 3.9 gm/dL 3.4-4.8 [facility] ALK PHOS 113 U/L 40-150 [facility] ALT (SGPT) 42 U/L 0-55 [facility] AST (SGOT) 39 U/L 5-37 H [facility] ID Date Data Source [id number] 06/28/2020 11:44:00 [facility] Name Value Range Interpretation Code Description Data Victoria rce(s) Supporting Document(s) WBC 6.2 K/uL 4.8-10.8 [facility] RBC 4.04 M/uL 4.20-5.40 L [facility] HEMOGLOBIN 11.7 gm/dL 12.0-16.0 L [facility] HEMATOCRIT 34.6 % 36.0-48.0 L [facility] MCV 85.8 fL 80.0-100.0 [facility] MCHC 33.7 % 30.0-36.5 [facility] MCH 28.9 pg 27.0-34.0 [facility] RDW 15.0 % 11.0-15.0 [facility] PLATELET 334 K/uL 130-450 [facility] MPV 6.6 fL 6.0-12.0 [facility] NE% 59 % 37-80 [facility] LY% 32 % 10-50 [facility] MO% 7 % 0-12 [facility] Eosinophils [#/volume] in Blood by Automated count 2 % <=8 [facility] BA% 0 % <=3 [facility] NE# 3.7 K/uL 1.8-8.6 [facility] LYMPH# 2.0 K/uL 0.5-5.0 [facility] MONO# 0.4 K/uL 0.0-1.3 [facility] EOS# 0.1 K/uL 0.0-0.9 [facility] BASO# 0.0 K/ul 0.0-0.3 [facility] ID Date Data Source [id number] 06/30/2020 01:24:00 PM EDT [facility] CULTURE OBSERVATIONS 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 [facility] RBC >100 /HPF NONE SEEN ! [facility] [employer] has definedMicroscopic Hematuria as 3 or more RBC per highpowered field from a single positive urinalysis withmicroscopy. BACTERIA FEW /HPF NONE SEEN ! [facility] EPITHELIAL CELLS MODERATE /HPF NONE SEEN ! [facility] ID Date Data Source [id number] 06/28/2020 11:34:00 AM EDT [facility] al Name Value Range Interpretation Code Description Data Victoria rce(s) Supporting Document(s) COLOR ORANGE [facility] APPEARANCE TURBID CLEAR ! [facility] SPECIFIC GRAVITY 1.015 1.000-1.030 [facility] ital pH 5.0 5.0-8.0 [facility] LEUKOCYTES 2+ NEGATIVE ! [facility] NITRATE POSITIVE NEGATIVE ! [facility] PROTEIN 100 [ 2+] mg/dL NEGATIVE ! [facility] l GLUCOSE NORMAL mg/dL NORMAL [facility] KETONE NEGATIVE mg/dL NEGATIVE [facility] UROBILINOGEN NORMAL mg/dL NORMAL [facility] l BILIRUBIN NEGATIVE mg/dL NEGATIVE [facility] HEMOGLOBIN 3+ NEGATIVE ! [facility] ID Date Data Source [id number] 06/28/2020 12:18:44 PM EDT [facility] al CT - ABD PELVIS NO CONTRAST06/28/2020 [...] stranding clinical correlationis suggested.Dense fatty liver.[facility] and[facility] then provides those same results to [facility]. Allresults are available to [facility] and [facility] provider portalusers. [facility] DICOM images are available to the[facility] provider portal users only. [facility] DICOMimages are not available to the [facility] provider portal users. There isno current [facility] functionality allowing images to be available [facility] connectivity.Electronically signed By: Desmond Calhoun M.D.Read By: DESMOND Luote: 06/28/2020 12:15 Name Value Range Interpretation Code Description Data Victoria rce(s) Supporting Document(s) ID Date Data Source [id number] 06/21/2020 05:36:[address] [facility] Name Value Range Interpretation Code Description Data Victoria rce(s) Supporting Document(s) ED Provider Notes [facility] PUOZYm1zVuYJMpPt10/CIDshFZWta1OqCDzqFHu1FPlnNHMyB9YuEIK5iM7dUMY8XBbMDcTbRmOvTPC7 lbm [file] AgICAgICAgICAgICAgICAgICAgICAgICAgICAgICAg ICAgICAgICAgICAgICAgICAgICAgICAgICAgICAgDQogICAgICAgICAgICAgICAgICAgICAgICAgICAg ICAgICAgICAgICAgICAgICAgICAgICAgICAgICAgICAgICAgICAgICAgICAgICAgICAgICAgICAgICAg ICAgICAgICAgICAgDQogICAgICAgICAgICAgICAgIC AgICAgICAgICAgICAgICAgICAgICAgICAgICAgICAgICAgICAgICAgICAgICAgICAgICAgICAgICAgIC AgICAgICAgICAgICAgICAgICAgICAgDQogICAgICAgICAgICAgICAgICAgICAgICAgICAgICAgICAgIC AgICAgICAgICAgICAgICAgICAgICAgICAgICAgICAg ICAgICAgICAgICAgICAgICAgICAgICAgICAgICAgICAgDQogICAgICAgICAgICAgICAgICAgICAgICAg ICAgICAgICAgICAgICAgICAgICAgICAgICAgICAgICAgICAgICAgICAgICAgICAgICAgICAgICAgICAg ICAgICAgICAgICAgICAgDQogICAgICAgICAgICAgIC AgICAgICAgICAgICAgICAgICAgICAgICAgICAgICAgICAgICAgICAgICAgICAgICAgICAgICAgICAgIC AgICAgICAgICAgICAgICAgICAgICAgICAgDQogICAgICAgICAgICAgICAgICAgICAgICAgICAgICAgIC AgICAgICAgICAgICAgICAgICAgICAgICAgICAgICAg ICAgICAgICAgICAgICAgICAgICAgICAgICAgICAgICAgICAgDQogICAgICAgICAgICAgICAgICAgICAg ICAgICAgICAgICAgICAgICAgICAgICAgICAgICAgICAgICAgICAgICAgICAgICAgICAgICAgICAgICAg ICAgICAgICAgICAgICAgICAgDQogICAgICAgICAgIC AgICAgICAgICAgICAgICAgICAgICAgICAgICAgICAgICAgICAgICAgICAgICAgICAgICAgICAgICAgIC AgICAgICAgICAgICAgICAgICAgICAgICAgICAgDQogICAgICAgICAgICAgICAgICAgICAgICAgICAgIC AgICAgICAgICAgICAgICAgICAgICAgICAgICAgICAg IXXsKACqUREmBPLwNLRsWBFjIBQfLFFuTZGxYTDlUBHcZALrHPEyKQt6K4tiONGuPUAzHK2lZDc9Pw3+ APgHTwVhHEL2zfLmaV3WVL1yh2WgIFboTBZli6QfNZb8RK6PMASwLKuhSN8KDEbphh7CMYMnPBNesLBK v7vxLjVlVZB5HXYoQndiMM4WLHPjR4bwbrQpIVYwNP EMHGmbJERHMCheGCHUYWZuHLEpWmPlWKnmEV8Ms6LvaSO1PAq+Jo6HBF7cv4IsCRnsEACqTM0azk5AHD tPXtXfD4FkrfR1THF9RKHdZg4JSKDmBLTriXZsRYBmIDBBMcCmT8UcwL36DOIPPk6+DQplbmRvYmoNCj O0MXHai8OoUKy5XV1TEHHwOUg2sQFiIGKoDMKxwstf OPBaPz56ROEsCbqcJAPwqESuYW5bV7Dlrxtgxf4bQU4SLMN5PBPoIZ7tHKFyYZLyMtR7LSHFSE2FBWJd OMGntBJyOWEjSSWSJA8SEBntGYS3WklsnhWuxVJcPJqbWF0TQWAxosAvVgXtVHSYXZy+Gi9IAV6lf7Bd DQvnGeKkWZ5uep6RYDuDJtDmI6Z4wLCpT8J0RIfjQg 4ANNTgRFNtIcDnRWOZNNtlAX2MGP6dkzW7PX5DmWCqBFQrHXLqgDCyNNv1H40hcIPzVVmgKX7AHAK+Pi A+Et3NPIAoBYDnAYIiGjIjILHWLdZaC9WwD6MYl5FuW3LdQP14kXvmjkMwXEsoON5NIC1sRXOnFYEMAS 5VbISnsO8rdfVlMSIfJOERAlHrR44ejCUcEKQpWUIj FOVoTx4TFEGtM7IagoZatNlqxpAvJYCcRBQVCS6YGIczrrRavPTtcMsaMY25bNalVO3EZo9KKjUsLS4w ph3ZtOUhTa5XMSQpWx2DTJFnJQZuUTZoZQF4YHMeDvFtLPzjJAQdBJUdECK7BGLvTNNnLG6IUhZiVMBa TqI8FnoeTSLiZVAqmq9EIHCiWHYdTfJvRRAkHSOtUK HfUOslVLSiXRDjVVS7ZDOoQILxSR1MAsSaXPEeGDG0EWLsHQArUBTouo4VJSHpXMVqIdc7CXIzHDRcQK XuLJsnVKVkSVR6HvC3AGAdNUIaRL2SYtGbXVRqKSD2FcRlUJAeUBOxpe1RCXJmVXRkUUHwSpAdNBYlLK EwWZxqUHKvJTV8RVEwJEWlNUOxNU9QAtBaKRPmXZD2 SWBdYMZnZJSnwk1XDRFnSNDrILI7SdHfDDYoLMUqKCeuCTJaTYTzFiTeUCZrYMUxMO5JNyDtZVVkAUE4 RIGcAXHgWDMhdr0UAACbGJBvJkK1YBNlZYBiMUYkMXfyUCPoQUOlPMInOSJxCORrSI5KZtJfUOVvXCRy EGwjJWKrGPIatk0VQMNiFINqJsH4XHTlSGGsDNFlDZ kfEEOlSAZ3AzV1LRYdBDVpXZ3THxPpSUNmNEB2ZKLrCUCqZDCrfd7DAKXzRPQvIJmqMFBiRLIoMROlZY epSVQdEUG7Mak2NCUbGVHaKZ2PHcXtSAAwNQS6UVCxYIUcNXIdag0FEMMqXEGuIcJ1WBPjACCgOSZhNN vkVVQeWQN6OTQ9TGAxVPXqAA7BEpTbDMMhXTqgMTWq OIDnOQGgmo9PCMYuCDWtAjKtKOCzMYXfKMHuNCqgSTGcLKU9DGLvQFItDCClZX9GTkEnNILnLyNvSmDd ZTJcGXZvai3DPFJnFBRwEFZmQSLiCCDbZZGmARulKDJwKNGtNJK9ZSTkTCRoWK8VUzVwIYBfJtQ7ZJQn TXGhYNQhrn7MSBMgBNEeWAD0AEQtVEEgBKGyNIxzZR QpKYNwJgVfDORnSUKdIW6TJkZcQNKzErE4EICuJNKlTKYogn0IOQQlWFPnTxw9ZnSuOXKkENFzMXy7vm FyqAGnPSb1TQ3QY8CkouYvBvpDBp3Sk302XPL5DUFuFz6RW7lzMh2nLFLePTYLCz6GIBw3QiVyVJA2Kl PyDSP6I2EhWuZvWxGeXoXtN1VnPPKaJlp+ZJw7VDV7 Nne9ZOYkBbV7H6RoFvT4DqUhWXE0XvOiIqLdVG1hIWWNYp6+DQpzdGFydHhyZWYNCjMzMDkwDQolJUVP Rg0K ID Date Data Source [id number] 06/21/2020 12:26:[address] [facility] Patient: TANIYA FIELD : 1985 M RN: [id number] [facility] (A/P WO CONTRAST) Provider: [...] rce(s) Supporting Document(s) ID Date Data Source [id number] 06/22/2020 07:16:[address] [facility] Name Value Range Interpretation Code Description Data Victoria rce(s) Supporting Document(s) Culture Result 10,000-20,000 colonies/ml Mixed urethral radha [facility] The above 1 analytes were performed by [facility] [id number], ,[place] [address] ID Date Data Source [id number] 06/21/2020 12:46:[address] [facility] Name Value Range Interpretation Code Description Data Victoria rce(s) Supporting Document(s) AST 49 IU/L 15-37 Above high normal [facility] Sulfasalazine and sulfapyridine have the potential to falsely depressAspartate Aminotransferase results. Baseline values before medication administration are recommended. ALT 54 IU/L 13-56 Normal (applies to non-numeric resul ts) [facility] Sulfasalazine and sulfapyridine have the potential to falsely depressAlanine Aminotransferase results. Baseline values before medication administration are recommended. Alkaline Phosphatase 111 mIU/ml 50-136 Normal (applies to n on-numeric results) [facility] Total Bilirubin 0.30 mg/dl 0.20-1.00 Normal (applies to non-numeric results) [facility] Blood Urea Nitrogen 13 mg/dl 7-18 Normal (applies to non-nume dakota results) [facility] Creatinine 0.73 mg/dl 0.51-0.95 Normal (applies to non-numeric resul ts) [facility] N-Acetylcysteine (NAC) and Metamizole noriega ve the potential to falselydepress Creatinine results. Baseline values before medication adminstration are recommended. Patients undergoing treatment with phenindione will have falselydepressed results. Patients on phenindione therapy should be tested with an alternativeCREA method.Toxic levels of acetaminophen may lead to falsely depressed results forpatient samples. Glomerular Filtration Rate 90.00 mL/min/1.73m2 [facility] GFR Reference Ranges:Normal Function or Mild Renal Disease,if clinically at risk:>or= 60Moderately decreased:30 - 59Severely decreased:15 - 29Renal Failure:<15 Please note that the MDRD equation requires an additional adjustment forAfrican-Americans (multiply the GFR result by 1.210).Glomarular Filtration Rate (GFR) is estimated based on the MDRDequation, which assumes a steady state for creatinine (Jayda Int Med 139/2 137-149, 2002), as recommended by the Nationaldney Disease Education Program in conjunction with the National Institutes of Health and the National KidneyFoundation. The [place] method used in calculating this result is traceable to IDMS standards. Glucose 99 mg/dl 70-110 Normal (applies to non-numeric resul ts) [facility] Sulfasalazine has the potential to false ly depress Glucose results. Sulfapyridine has the potential to falsely elevate Glucose results. Baseline values before medication administration are recommended. Calcium 8.8 mg/dl 8.5-10.1 Normal (applies to non-numeric resul ts) [facility] Total Protein 7.3 g/dl 6.4-8.2 Normal (applies to non-numeric re sults) [facility] Albumin 3.4 g/dl 3.4-5.0 Normal (applies to non-numeric resul ts) [facility] Sodium 140 mEq/L 136-145 Normal (applies to non-numeric resul ts) [facility] Potassium 3.5 mEq/L 3.5-5.1 Normal (applies to non-numeric resul ts) [facility] Chloride 109.0 mEq/L 98.0-107.0 Above high normal [facility] Carbon Dioxide 26.3 mMol/L 21.0-32.0 Normal (applies to non-numeric results) [facility] Anion Gap 8.2 7.0-15.0 Normal (applies to non-numeric resul ts) [facility] The above 16 analytes were performed by [facility] [id number] [place] [address],[id number] [address] ID Date Data Source [id number] 06/21/2020 12:46:[address] [facility] Name Value Range Interpretation Code Description Data Victoira rce(s) Supporting Document(s) Quantative HCG <1 mIU/ml 0-3 Normal (applies to non-numeric r esults) [facility] HCG Reference Ranges by Gestation:Nonpre gnancy0 - 3.0mIU/mL0.2 - 1 week after conception5 - 50mIU/mL1 - 2 weeks after sxkeomxxum98 - 500mIU/mL2 - 3 weeks after enukmmpjbe550 - 5000mIU/mL3 - 4 weeks after oielywmdyl068 - 05061lNM/mL4 - 5 weeks after yhgbhxuclh2124 - 63489iHM/mL5 - 6 weeks after wzopfkdutt60741 - 22698wFC/mL6 - 8 weeks after fbgjgqtwdq00981 - 358876jWW/mL2-3 months after zvrqsmaupt19522 - 046445sJM/mL The above 1 analytes were performed by [facility] [id number] [place] [address], ,[place] [address] ID Date Data Source [id number] 06/21/2020 12:14:[address] [facility] Name Value Range Interpretation Code Description Data Victoria rce(s) Supporting Document(s) Urine Color Dark-Yellow Light-Yellow,Yellow Abnormal (ap plies to non-numeric results) [facility] Urine Appearance CLOUDY CLEAR Abnormal (applies to non-numer ic results) [facility] Urine Specific [place] 1.025 1.015-1.025 Normal (a pplies to non-numeric results) [facility] Urine pH 6.0 5.0-7.0 Normal (applies to non-numeric resul ts) [facility] Urine Protein 1+ NEG Abnormal (applies to non-numeric results) [facility] Urine Glucose NEG NEG Normal (applies to non-numeric re sults) [facility] Urine Ketone NEG NEG Normal (applies to non-numeric res ults) [facility] Urine Bilirubin NEG NEG Normal (applies to non-numeric results) [facility] Urine Blood 3+ NEG Abnormal (applies to non-numeric re sults) [facility] Urine Urobilinogen <2.0 <0.2,1.0,<2.0,0.2 Normal (janet lies to non-numeric results) [facility] Urine Leukocyte Esterase 2+ NEG Abnormal (applies to n on-numeric results) [facility] Urine Nitrite NEG NEG Normal (applies to non-numeric re sults) [facility] Urine WBC 9 /hpf 0-2 Above high normal [facility] Urine RBC >180 /hpf 0-2 Above high normal [facility] Urine Squamous Epithelial Cells 15 /hpf 0-0 Abnormal (applies to non-numeric results) [facility] Mucous SLIGHT /lpf NEG,[none] Abnormal (applies to non-numeric re sults) [facility] The above 16 analytes were performed by [facility] [id number] [place] [address],[facility] [id number],[place] [address] ID Date Data Source [id number] 06/21/2020 12:08:[address] [facility] Name Value Range Interpretation Code Description Data Victoria rce(s) Supporting Document(s) WBC 5.56 x1000/ul 4.80-10.00 Normal (applies to non-numeric re sults) [facility] RBC 4.09 x1Mil/ul 4.20-5.40 Below low normal [facility] Hemoglobin 11.4 g/dl 12.0-16.0 Below low normal [facility] Hematocrit 35.9 % 37.0-47.0 Below low normal [facility] MCV 87.8 fL 81.0-99.0 Normal (applies to non-numeric resul ts) [facility] MCH 27.9 pg 27.0-31.0 Normal (applies to non-numeric resul ts) [facility] MCHC 31.8 g/dl 32.2-37.[address] [facility] RDW 15.5 % 11.5-14.5 Above high normal [facility] Platelet Count 372 x1000/ul 130-400 Normal (applies to non-numeric results) [facility] MPV 9.4 fL 9.4-12.4 Normal (applies to non-numeric resul ts) [facility] Neutrophils 54.0 % 40.0-74.0 Normal (applies to non-numeric resu lts) [facility] Lymphocytes 34.9 % 19.0-48.0 Normal (applies to non-numeric resu lts) [facility] Monocytes 8.6 % 3.4-9.0 Normal (applies to non-numeric resul ts) [facility] Eosinophils 1.6 % 0.0-7.0 Normal (applies to non-numeric resu lts) [facility] Basophils 0.4 % 0.0-2.0 Normal (applies to non-numeric resul ts) [facility] Immature Granulocytes 0.5 % 0.0-0.5 Normal (applies to non-nu meric results) [facility] Nucleated RBCs 0.00 % 0.00-0.20 Normal (applies to non-numeric r esults) [facility] Abs. Neutrophils 3.00 x1000/ul 1.92-8.31 Normal (applies to non-numeric results) [facility] Abs. Lymphocyte 1.94 x1000/ul 1.20-3.70 Normal (applies to non-n umeric results) [facility] Abs. Monocytes 0.48 x1000/ul 0.14-0.97 Normal (applies to non-nu meric results) [facility] Abs. Eosinophils 0.09 x1000/ul 0.00-0.76 Normal (applie s to non-numeric results) [facility] Abs. Basophils 0.02 x1000/ul 0.00-0.22 Normal (applies to non-n umeric results) [facility] Abs. Immature Gran. 0.03 x1000/ul 0.00-0.[address] [facility] Abs. Nucleated RBCs 0.00 x1000/ul 0.00-0.02 Normal (appl ies to non-numeric results) [facility] The above 24 analytes were performed [facility] [address] [place] [address],[facility]#: [id number],[place] [address] ID Date Data Source [id number] 06/21/2020 10:39:[address] [facility] Name Value Range Interpretation Code Description Data Victoria rce(s) Supporting Document(s) ED Triage Notes [facility] [id number] lbm [file] [id number]== ID Date Data Source [id number] 06/20/2020 11:44:47 AM EDT [facility] al Left flank pain, rule out ureteral [...] Volume: Not measured.Miscellaneous: None.IMPRESSION:Normal renal ultrasound.[facility] and[facility] then provides those same results to [facility]. Allresults are available to [facility] and [facility] provider portalusers. [facility] DICOM images are available to the[facility] provider portal users only. [facility] DICOMimages are not available to the [facility] provider portal users. There isno current [facility] functionality allowing images to be available [facility] connectivity.Electronically signed By: Desmond Calhoun M.D.Read By: DESMOND CALHOUNDate: 06/20/2020 11:41 Name Value Range Interpretation Code Description Data Victoria rce(s) Supporting Document(s) ID Date Data Source [id number] 06/20/2020 09:39:13 AM EDT [facility] al Note Status: FINAL (SIGNED)Full Name: Kade JONES Date: 1985Visit ID: [id number] Record Number: [id number]: 34YSex: FemaleRoom Location: ER ROOMSBed Location: ER 17Date of Service: 04/30/2020 07:27Creation Date: 04/30/2020 07:27Created By: [facility] Physician: FORTUNATO CONTRERASTime patient first seen: [facility] Chief Complaint: Patient is a 34-year-old female [...] 07:12 Physical ExamConstcomments: General: NAD, calm, cooperative, [id number] impression: Right sided flank pain OrdersStart Date;Description;Frequency;Ordered By;Status04/30/2020;CBC DIFF ;Once;SIERRA ELDER;Today04/30/2020;COMPREHENSIVE PANEL ;Once;ELDERJO ANN LyonSIERRA;Today04/30/2020;Point of Care /URINE ;Once;SIERRA ELDER;Today04/30/2020;Point of Care URINE DIPSTICK ;Once;ELDERJO ANNSIERRA;Today04/30/2020;CULTURE URINE ;Once;SONIA BAKER;Today04/30/2020;URINALYSIS ROUTINE ;Once;SONIA BAKER;Today04/30/2020;URINE MICROSCOPIC ;Once;SONIA BAKER;Today04/30/2020;LIDOCAINE PATCH 5 % 1 PATCH TOP ;ONE TIME ONLY;SIERRA ELDER;Active04/30/2020;OXYCODONE-ACETAMINOPHEN 5-325 MG 1 TAB ORAL ;ED - ONE TIME ONLY;ELDER, SIERRA;Active04/30/2020;REMOVE LIDOCAINE PATCH REMOVE PATCH MISC ;AT BEDTIME;ELDERJO ANNSIERRA;FutureLaboratory resultsLab Results for the past 24 hoursOrder;Test;Value;Reference [...] Urine Turbidity;HAZY;;;Final Result ;04/30/2020 00:01:00URINALYSIS ROUTINE;Dipstick Specific [place];1.025;(1.000-1.030);;Final Result ;04/30/2020 00:01:00URINALYSIS ROUTINE;Dipstick Urine pH;5.0;(5.0-8.0);;Final Result [...] rce(s) Supporting Document(s) ID Date Data Source [id number] 06/22/2020 07:20:00 AM EDT [facility] CULTURE OBSERVATIONS 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 Name Value Range Interpretation Code Description Data Victoria rce(s) Supporting Document(s) ID Date Data Source [id number] 06/20/2020 10:10:00 AM EDT [facility] Name Value Range Interpretation Code Description Data Victoria rce(s) Supporting Document(s) URINE MICRO [facility] WBC 5-10 /HPF 0-2 ! [facility] RBC >100 /HPF NONE SEEN ! [facility] The [employer] has definedMicroscopic Hematuria as 3 or more RBC per highpowered field from a single positive urinalysis withmicroscopy. BACTERIA MODERATE /HPF NONE SEEN ! [facility] EPITHELIAL CELLS MANY /HPF NONE SEEN ! [facility] Data Source [id number] 06/20/2020 10:03:00 AM [facility]T [facility] Name Value Range Interpretation Code Description Data Victoria rce(s) Supporting Document(s) COLOR LUIS M [facility] APPEARANCE CLOUDY CLEAR ! [facility] SPECIFIC GRAVITY 1.025 1.000-1.030 [facility] ital pH 5.0 5.0-8.0 [facility] LEUKOCYTES 2+ NEGATIVE ! [facility] NITRATE NEGATIVE NEGATIVE [facility] PROTEIN 100 [ 2+] mg/dL NEGATIVE ! [facility] l GLUCOSE NORMAL mg/dL NORMAL [facility] KETONE NEGATIVE mg/dL NEGATIVE [facility] UROBILINOGEN NORMAL mg/dL NORMAL [facility] l BILIRUBIN NEGATIVE mg/dL NEGATIVE [facility] HEMOGLOBIN 3+ NEGATIVE ! [facility] ID Date Data Source [id number] 06/20/2020 09:07:00 AM EDT [facility] Name Value Range Interpretation Code Description Data Victoria rce(s) Supporting Document(s) AMYLASE 40 U/L 25-125 [facility] ID Date Data Source [id number] 06/20/2020 09:07:00 AM EDT [facility] C[facility] Name Value Range Interpretation Code Description Data Victoria rce(s) Supporting Document(s) SODIUM 139 mmol/L 136-145 [facility] POTASSIUM 3.8 mmol/L 3.5-5.2 [facility] CHLORIDE 108 mmol/L 100-108 [facility] CO2 24 mmol/L 21-32 [facility] GLUCOSE 106 mg/dL 70-100 H [facility] BUN 12 mg/dL 7-21 [facility] CREATININE 0.7 mg/dL 0.6-1.3 [facility] Normal Kidney Function or Mild Disease - GFR >OR= 60Chronic Kidney Disease - GFR 15-59Renal Failure - GFR < 15GFR not calculated on patients under 18 years of age. CALCIUM 8.8 mg/dL 8.5-10.8 [facility] GFR >60 [facility] T BILI 0.4 mg/dL 0.0-1.2 [facility] T PROTEIN 7.3 gm/dL 6.4-8.2 [facility] ALBUMIN 4.0 gm/dL 3.4-4.8 [facility] ALK PHOS 120 U/L 40-150 [facility] ALT (SGPT) 48 U/L 0-55 [facility] AST (SGOT) 46 U/L 5-37 H [facility] ID Date Data Source [id number] 06/20/2020 09:07:00 AM EDT [facility] Name Value Range Interpretation Code Description Data Victoria rce(s) Supporting Document(s) LIPASE 20 U/L 8-78 [facility] ID Date Data Source [id number] 06/20/2020 09:00:00 AM EDT [facility] al Name Value Range Interpretation Code Description Data Victoria rce(s) Supporting Document(s) PTT 30.9 sec 25.6-36.4 [facility] ID Date Data Source [id number] 06/20/2020 08:57:00 AM EDT [facility] al Name Value Range Interpretation Code Description Data Victoria rce(s) Supporting Document(s) PROTIME 11.7 sec 9.4-12.4 [facility] INR 1.1 [facility] INR INTERPERTATION 2.0 -3.0 THERAPEUTIC MONITORING2.5-3.5 HEART VALVE REPLACEMENT ID Date Data Source [id number] 06/20/2020 08:54:00 AM EDT [facility] al CBC WITH DIFF Name Value Range Interpretation Code Description Data Victoria rce(s) Supporting Document(s) WBC 5.2 K/uL 4.8-10.8 [facility] RBC 4.00 M/uL 4.20-5.40 L [facility] HEMOGLOBIN 12.2 gm/dL 12.0-16.0 [facility] HEMATOCRIT 35.2 % 36.0-48.0 L [facility] MCV 87.9 fL 80.0-100.0 [facility] MCHC 34.6 % 30.0-36.5 [facility] MCH 30.4 pg 27.0-34.0 [facility] RDW 15.9 % 11.0-15.0 H [facility] PLATELET 309 K/uL 130-450 [facility] MPV 6.2 fL 6.0-12.0 [facility] NE% 54 % 37-80 [facility] LY% 36 % 10-50 [facility] MO% 7 % 0-12 [facility] Eosinophils [#/volume] in Blood by Automated count 2 % <=8 [facility] BA% 0 % <=3 [facility] NE# 2.8 K/uL 1.8-8.6 [facility] LYMPH# 1.9 K/uL 0.5-5.0 [facility] MONO# 0.4 K/uL 0.0-1.3 [facility] EOS# 0.1 K/uL 0.0-0.9 [facility] BASO# 0.0 K/ul 0.0-0.3 [facility] ID Date Data Source [id number] 05/22/2020 07:42:07 AM EST [facility] [place] NT INFORMATIONPatient MRN Name Date of Age Gend*PT [id number] Taniya Field 1985 34 years F EDPT Location Admission Date/Time Visit ID Attending [id number] 05/21/20 1544 --- --- EPI ID CSN Admitting Provider [id number] ---Attestation signed by Mckayla Jhaveri MD at 05/22/2020 7:42 MALIK ONEILL Attestations:Attestation Type: Mid-Level: SUPERVISED APC: Based [...] urinary frequency. Does followwith Dr. Lang at [facility]. Denies any other complaints today. Deniesheadache, [...] rce(s) Supporting Document(s) ID Date Data Source [id number] 05/21/2020 04:17:14 PM EST [facility] Name Value Range Interpretation Code Description Data Victoria rce(s) Supporting Document(s) POC URINE COLOR [facility] POC URINE APPEARANCE [facility] POC SPEC GRAV URINE (1.003-1.030) [facility] POC PH URINE 5.5 (5.0-7.5) [facility] [place] [facility] [place] POC LEUK ESTERASE UR (NEG) A [facility] POC NITRITE URINE (NEG) [facility] POC PROTEIN URINE 1+ mg/dL (NEG) A [facility] POC GLUCOSE URINE (NEG) [facility] POC KETONE URINE (NEG) [facility] P[facility] UROBILINOGEN UR 0.2 EU/dL (0.2-1.0) [facility] POC BILIRUBIN UR (NEG) [facility] POC BLOOD HGB URINE 3+ (NEG) A [facility] PERFORMED BY [facility] CL[facility]ICAL STA[facility] ID Date Data Source [id number] 05/21/2020 03:57:45 PM EST [facility] Name Value Range Interpretation Code Description Data Victoria rce(s) Supporting Document(s) POC URINE HCG (NEG) [facility] PER[facility]MED BY [facility] ID Date Data Source [id number] 05/17/2020 12:04:32 PM EST [facility]PATI NT INFORMATIONPatient MRN Name Date of Age Gend*PT [id number] Taniya Field 1985 34 years F EDPT Location Admission Date/Time Visit ID Attending [id number] 05/16/201956 --- --- EPI ID CSN Admitting Provider [id number] ---Attestation signed by Mckayla Jhaveri MD at 05/17/2020 12:04 GIL ONEILL Attestations:Attestation Type: Mid-Level: SUPERVISED APC: Based [...] signed by JOE Nixon, 05/16/20, 3:00 PM.ED CourseEliJOE Lamas05/16/20 1502Katkaris Jhaveri MD05/17/20 1204 Name Value Range Interpretation Code Description Data Victoria rce(s) Supporting Document(s) ID Date Data Source [id number] 05/17/2020 02:10:08 AM EST [facility]PATIE NT INFORMATIONPatient MRN Name Date of Age Gend*PT [id number] Taniya Field 1985 34 years F EDPT Location Admission Date/Time Visit ID Attending [id number] 05/16/201956 --- --- EPI ID CSN Admitting Provider [id number] ---Attestation signed by Bartolo Arellano MD at [...] signed by JOE Nixon, 05/16/20, 3:00 PM.ED CourseJOE Nixon05/16/20 1502History of Present IllnessChief ComplaintPatient presents with [...] Kanu Luciano PA-C, 05/16/20 7:58 PM.CHARLES San C0/06/03 2227Jolit Arellano MD05/17/20 0210 Name Value Range Interpretation Code Description Data Victoria rce(s) Supporting Document(s) ID Date Data Source [id number] 05/16/2020 08:23:12 PM EST [facility] armani PATEL Name Value Range Interpretation Code Description Data Victoria rce(s) Supporting Document(s) POC URINE HCG (NEG) [facility] PERFORMED BY [facility] CLINICAL STA[facility] ID Date Data Source [id number] 05/18/2020 09:33:13 AM EST [facility] armnai PATEL SPECIMEN DESCRIPTION MIDSTREAM UR INE,CLEAN CATCHCULTURE RESULTS MIXED UROGENITAL RADHA; PLEASE SUBMIT A NEW SPEC IMEN IF CLINICALLY INDICATED.REPORT STATUS FINAL 05/18/2020 Name Value Range Interpretation Code Description Data Victoria rce(s) Supporting Document(s) ID Date Data Source [id number] 05/16/2020 09:32:47 PM EST [facility]mani PATEL Name Value Range Interpretation Code Description Data Victoria rce(s) Supporting Document(s) URINE WBC (0-5) [facility] URINE RBC (0-2) [facility] EPITHELIAL CELLS 3+ [HPF] [facility] BACTERIA 1+ [HPF] [facility] ID Date Data Source [id number] 05/16/2020 09:23:22 PM EST [facility] Name Value Range Interpretation Code Description Data Victoria rce(s) Supporting Document(s) SODIUM 142 mmol/L (136-145) [facility] POTASSIUM 3.9 mmol/L (3.6-5.2) [facility] CHLORIDE 107 mmol/L (100-108) [facility] CO2 29 mmol/L (22-31) [facility] ANION GAP 6 mmol/L (7-16) L [facility] UREA NITROGEN 16 mg/dL (7-24) [facility] CREATININE 0.64 mg/dL (0.60-1.00) [facility] BUN/CREAT RATIO 25.0 RATIO (10.0-20.0) H [facility] GLUCOSE 88 mg/dL (70-99) [facility] CALCIUM 9.0 mg/dL (8.4-10.2) [facility] TOTAL PROTEIN 7.3 g/dL (6.4-8.2) [facility] ALBUMIN 3.5 g/dL (3.5-4.6) [facility] GLOBULIN 3.8 g/dL (2.7-4.3) [facility] ALB/GLOB RATIO 0.9 RATIO [facility] ALKALINE PHOSPHATASE 119 U/L (45-117) H [facility] BILIRUBIN,TOTAL 0.2 mg/dL (0.0-1.0) [facility] PLEASE NOTE:Total bilirubin results may be falselyelevated in patients taking Eltrombopag. AST (SGOT) 34 U/L (11-39) [facility] ALT (SGPT) 54 U/L (12-78) [facility] GFR >60 ml/min/1.73m2 (>59) [facility] GFR ( AMER) >60 ml/min/1.73m2 (>59) [facility] GFR INTERPRETATION [facility] --NORMAL KIDNEY FUNCTION OR MILD DISEASE - GFR >OR= 60CHRONIC KIDNEY DISEASE - GFR 15 - 59RENAL FAILURE - GFR <15 Est. GFR calculation based on the MDRDstudy equation, which assumes a steadystate for creatinine. Est. GFR should notbe used for medication dosing. ID Date Data Source [id number] 05/16/2020 09:20:31 PM EST [facility] Name Value Range Interpretation Code Description Data Victoria rce(s) Supporting Document(s) MAGNESIUM 2.3 mg/dL (1.7-2.4) [facility] ID Date Data Source [id number] 05/16/2020 08:47:09 PM EST [facility] Name Value Range Interpretation Code Description Data Victoria rce(s) Supporting Document(s) COLOR [facility] APPEARANCE [facility] SPEC GRAV URINE 1.027 (1.003-1.030) [facility] PH URINE 5.5 (5.0-7.5) [facility] LEUK ESTERASE 1+ (NEG) A [facility] NITRITE URINE (NEG) [facility] PROTEIN URINE 2+ (NEG) A [facility] GLUCOSE URINE (NEG) [facility] KETONE URINE (NEG) [facility] [place] UROBILINOGEN 0.2 mg/dL (0-1.0) [facility] [place] BILIRUBIN URINE (NEG) [facility] BLOOD/HGB URINE 3+ (NEG) A [facility] ID Date Data Source [id number] 05/16/2020 08:27:52 PM EST [facility] Name Value Range Interpretation Code Description Data Victoria rce(s) Supporting Document(s) WBC 8.4 10*3/uL (4.1-11.0) [facility] [facility] [place] RBC 4.16 10*6/uL (4.00-5.40) [facility] HGB 11.6 g/dL (12.0-16.0) L [facility] HCT 35.1 % (36.0-47.0) L [facility] MCV 84.5 fL (80.0-95.0) [facility] MCH 27.8 pg (27.0-32.0) [facility] MCHC 32.9 g/dL (32.0-36.0) [facility] RDW 15.0 % (10.5-14.5) H [facility] PLT 298 10*3/uL (150-450) [facility] MPV 7.1 fL (7.1-10.7) [facility] NEUT % 59.8 % (35.0-75.0) [facility] LYMPH % 32.1 % (16.0-52.0) [facility] MONO % 6.5 % (0.0-8.0) [facility] EOS % 1.4 % (0.0-5.0) [facility] BASO % 0.2 % (0.0-4.0) [facility] NEUT # 5.0 10*3/uL (1.8-7.7) [facility] LYMPH # 2.7 10*3/uL (1.2-4.8) [facility] MONO # 0.6 10*3/uL (0.0-0.8) [facility] Eosinophils [#/volume] in Blood by Automated count 0.1 10*3/uL (0.0-0 .5) [facility] BASO # 0.0 10*3/uL (0.0-0.2) [facility] ID Date Data Source "" 05/11/2020 11:57:[address] [address] Patient Name: Taniya Field Exam Date: 05/11/20 [...] 1. Moderate constipation. Professional interpretation performed by [facility] Medical Imaging at [facility] . End of diagnostic report: [id number] Signed: Boyd Armstrong MD 05/11/20 1227 Interpreted by: Boyd ArmstrongTranscribed by: [place] [address] Patient Name: Taniya Field Exam Date: 03/29/20 [...] demonstrates hepatic steatosis. Professional interpretation performed at [facility] . End of diagnostic report: [id number] Signed: Grazyna Payton MD 03/29/20 6163 Interpreted by: Grazyna PaytonTranscribed by: Grazyna Payton Name Value Range Interpretation Code Description Data Victoria rce(s) Supporting Document(s) ID Date Data Source "" 03/29/2020 06:37:00 [place] [address] Patient Name: Taniya Field Exam Date: 05/11/20 [...] 1. Moderate constipation. Professional interpretation performed by [facility] Medical Imaging at [facility] . End of diagnostic report: [id number] Signed: Boyd Armstrong MD 05/11/20 1227 Interpreted by: Boyd ArmstrongTranscribed by: [facility] [place] [address] Patient Name: Taniya Field Exam Date: 03/29/20 [...] demonstrates hepatic steatosis. Professional interpretation performed at [facility] . End of diagnostic report: [id number] Signed: Graznya Payton MD 03/29/201842 Interpreted by: Grazyna PaytonTranscribed by: Grazyna Payton Name Value Range Interpretation Code Description Data Victoria rce(s) Supporting Document(s) ID Date Data Source [id number] 05/11/2020 11:00:00 AM EST [facility] ([facility]) Name Value Range Interpretation Code Description Data Victoria rce(s) Supporting Document(s) Potassium [Moles/volume] in Serum or Plasma 4.1 meq/L 3.5-5.3 [facility] Sodium [Moles/volume] in Serum or Plasma 139 meq/L 135-145 [facility] ([facility]) Carbon dioxide, total [Moles/volume] in Serum or Plasma 27 meq/L 22 -33 [facility] ([facility]) Chloride [Moles/volume] in Serum or Plasma 106 meq/L 94-110 [facility] ([facility]) Anion gap in Serum or Plasma 10 5-16 [facility] ([facility]) Urea nitrogen [Mass/volume] in Serum or Plasma 12 mg/dL 7-25 [facility] ([facility]) Creatine [Mass/volume] in Serum or Plasma 0.8 mg/dL 0.6-1.4 [facility] ([facility]) Glomerular filtration rate/1.73 sq M.pre dicted [Volume Rate/Area] in Serum or Plasma by Creatinine-based formula (MDRD) 81.2 mL/min [facility] ([facility]) Stage G2 - Mildly decreased kidney funct [...] Serum or Plasma 15 8 -36 [facility] ([facility]) Calcium [Mass/volume] in Serum or Plasma 8.7 mg/dL 8.7-10.5 [facility] ([facility]) Glucose [Mass/volume] in Serum or Plasma 131 mg/dL 70-100 Above high normal [facility] Aspartate aminotransferase [Enzymatic activity/volume] in Serum or Plasma 51 U/L 5-40 Above high normal [facility] ([facility]) Bilirubin.total [Mass/volume] in Serum or Plasma 0.3 mg/dL 0.1-1.3 [facility] ([facility]) Alanine aminotransferase [Enzymatic activity/volume] in Seru m or Plasma 65 U/L 5-48 Above high normal [facility] Alkaline phosphatase [Enzymatic activity/volume] in Serum or Plasma 120 U/L 40-140 [facility] ([facility]) Albumin [Mass/volume] in Serum or Plasma 4.4 g/dL 3.0-5.1 [facility] ([facility]) Protein [Mass/volume] in Serum or Plasma 6.4 g/dL 5.9-8.3 [facility] ([facility]) Albumin/Globulin [Mass Ratio] in Serum or Plasma 2.2 g/dL 1.0-3.0 [facility] ([facility]) Globulin [Mass/volume] in Serum by calculation 2.0 g/dL 1.5-3.5 [facility] ([facility]) ID Date Data Source [id number] 05/11/2020 11:00:00 AM EST [facility] ([facility]) Name Value Range Interpretation Code Description Data Victoria rce(s) Supporting Document(s) Choriogonadotropin.beta subunit ( test) [Pres ence] in Serum or Plasma Laboratory test result [facility] Choriogonadotropin [Units/volume] in Serum or Plasma Laboratory melisa t result [facility] ([facility]) Reference range is Negative "Extreme" early may have low levels of HCG present. If is suspected, repeat testing with a new specimen in 48-72 hours ID Date Data Source [id number] 05/11/2020 11:00:00 AM EST [facility] ([facility]) Name Value Range Interpretation Code Description Data [...] Automated count 32.0 g/dL 32-36 [facility] ([facility]) Erythrocyte distribution width [Ratio] by Automated [...] Blood by Automated count 0.38 k/uL 0.20-1.50 [facility] ([facility]) Basophils [#/volume] in Blood by Automated count 0.01 10^3/uL 0.00-0. 20 [facility] ID Date Data Source [id number] 05/11/2020 11:09:00 AM EST [facility] Name Value Range Interpretation Code Description Data Victoria rce(s) Supporting Document(s) WHITE BLOOD COUNT 6.20 10^3/uL 4.00-10.50 N [facility] ealth RED BLOOD COUNT 4.15 10^6/uL 3.90-5.20 N [facility] th HEMOGLOBIN 11.3 G/DL 11.5-15.6 L [facility] HEMAT[facility]CRIT 35.3 % 35.0-46.0 N [facility] MCV 85.1 FL 80.0-100.0 N [facility] MCH 27.2 PG 27.0-34.0 N [facility] MCHC 32.0 G/DL 32-36 N [facility] RDW 14.4 % 11.5-14.5 N [facility] PLATELET COUNT 333 10^3/uL 130-400 N [facility] MPV 9.0 FL 8.7-13.2 N [facility] GRAN % (AUTO) 63.2 % 42.0-75.0 N [facility] LYMPH % (AUTO) 28.2 % 20.0-51.0 N [facility] MONO % (AUTO) 6.1 % 2.0-15.0 N [facility] EOS % (AUTO) 1.8 % 0.0-11.0 N [facility] BASO % (AUTO) 0.2 % 0.0-2.0 N [facility] IG % (AUTO) 0.5 % 1.00-5.00 [facility] IG # (AUTO) 0.0 10^3/uL <0.5 [facility] GRAN # (AUTO) 3.92 10^3/uL 1.50-6.50 N [facility] LYMPH # (AUTO) 1.8 k/uL 1.0-5.0 N [facility] MONO # (AUTO) 0.38 k/uL 0.20-1.50 N [facility] [place] EOS # (AUTO) 0.11 10^3/uL 0.00-1.10 N [facility] [place] BASO # (AUTO) 0.01 10^3/uL 0.00-0.20 N [facility] ID Date Data Source [id number] 05/11/2020 11:22:00 AM EST [facility] Name Value Range Interpretation Code Description Data Victoria rce(s) Supporting Document(s) HCG QUALITATIVE SPECIMEN [facility] ID Date Data Source [id number] 05/11/2020 11:29:00 AM [facility] [place] Name Value Range Interpretation Code Description Data Victoria rce(s) Supporting Document(s) SODIUM 139 MEQ/L [address] [facility] POTASSIUM 4.1 MEQ/L 3.5-5.3 [facility] CHLORIDE 106 MEQ/L 94-110 [facility] CARBON DIOXIDE 27 MEQ/L 22-33 [facility] ANION GAP 10 5-16 N [facility] BLOOD UREA NITRO 12 MG/DL 7-25 [facility] CREATININE 0.8 MG/DL 0.6-1.4 [facility] GFR 81.2 ML/MIN [facility] Stage G2 - Mildly decreased kidney func tion The GFR is an estimate of the Glomerular Filtration Rate. It is an aid to assess a patient's renal function. It is not a conclusive diagnosis of kidney disease. GFR normal is >=90 The MDRD GFR calculation is considered valid between the ages of 18 and 75 years only. BUN/CREAT RATIO 15 8-36 N [facility] GLUCOSE 131 MG/DL 70-100 [facility] CA 8.7 MG/DL 8.7-10.5 [facility] BILIRUBIN,TOTAL 0.3 MG/DL 0.1-1.3 N [facility] AST 51 U/L 5-40 [facility] ALT 65 U/L 5-48 H [facility] ALKALINE PHOSPHATASE 120 U/L 40-140 N [facility] alth TOTAL PROTEIN 6.4 G/DL 5.9-8.3 N [facility] ALBUMIN 4.4 G/DL 3.0-5.1 N [facility] GLOBULIN 2.0 G/DL 1.5-3.5 N [facility] ALB/GLOB RATIO 2.2 G/DL 1.0-3.0 N [facility] ID Date Data Source [id number] 05/11/2020 11:22:[address] [facility] Name Value Range Interpretation Code Description Data Victoria rce(s) Supporting Document(s) HCG RESULT,S NEGATIVE [facility] Reference range is Negative "Extreme" early may have low levels of HCG present. If is suspected, repeat testing with a new specimen in 48-72 hours ID Date Data Source [id number] 05/11/2020 10:45:00 [place] [address] HEALTH INFORMATION MANAGEMENT ED/UC Physician Report : [id number] Signed Patient: Taniya Field Acct:[id number] Unit: M [id number] : 1985 Arrival Date: 05/11/20 Age/Sex: 34 [...] IMPRESSION: 1. Moderate constipation.Professional interpretation performed by [facility] Medical Imaging at [facility] .End of diagnostic report: [id number]: Boyd Armstrong MD05/11/20 1227 Critical Care Time [...] 1045 Signed by: Karina Nicole NP 05/12/20 1051 Kyree John MD 05/12/20 1820 Name Value Range Interpretation Code Description Data Victoria rce(s) Supporting Document(s) ID Date Data Source [id number] 05/11/2020 10:30:00 AM EST [facility] ([facility]) Name Value Range Interpretation Code Description Data Victoria rce(s) Supporting Document(s) Bacteria identified in Urine by Culture Laboratory test result [facility] ([facility]) Run: 05/12/20 1030 INTERFACED REPORT Name: Taniya Field Age/Sex: 34/F Location: ED Acct: [id number] Unit: [id number] Status: DEP ER Room/Bed: Re05/11/20 Disch: Att Dr: Kyree John MD Specimen #: [id number] Ordered : 05/11/20 Collected : 05/11/20 By: ARLYN Received: 05/11/20 By: DELLA Source: URINE CC Specimen Description: Procedure Result COLONY COUNT Final COLONY COUNT GREATER THAN 100,000 CFU/ML URINE CULTURE Final PRESENCE OF 3 OR MORE ORGANISMS-SPECIMEN MAY BE CONTAMINATED SUGGEST REPEAT END OF REPORT ID Date Data Source [id number] 05/11/2020 10:30:00 AM EST [facility] ([facility] ssionate [...] ([facility]) ID Date Data Source [id number] 05/11/2020 11:38:00 AM EST [facility] Run: 05/12/201029 INTERFACED REPORT Name: Taniya Field Age/Sex: 34/F Location: ED Acct: [id number] Unit: [id number] Status: DEP ER Room/Bed: Re05/11/20 Disch: Tatiana Dr: Kyree John MD Specimen #: [id number] Ordered : 05/11/20 Collected : 05/11/20 By: ARLYN Received: 05/11/20 By: DELLA Source: URINE CC Specimen Description: Procedure Result - COLONY COUNT Final COLONY COUNT GREATER THAN 100,000 CFU/ML URINE CULTURE Final PRESENCE OF 3 OR MORE ORGANISMS-SPECIMEN MAY BE CONTAMINATED SUGGEST REPEAT END OF REPORT Name Value Range Interpretation Code Description Data Victoria rce(s) Supporting Document(s) COLOR,UR YELLOW YELLOW [facility] APPEARANCE,UR CLOUDY CLEAR A [facility] PH,UR 5.0 5.0-8.0 [facility] SPECIFIC GRAVITY,UR 1.020 1.002-1.035 N [facility] PROTEIN,UR 30 MG/DL NEGATIVE A [facility] GLUCOSE, UR NEGATIVE MG/DL NEGATIVE [facility] KETONES,UR NEGATIVE MG/DL NEGATIVE [facility] OCCULT BLOOD,UR LARGE NEGATIVE A [facility] NITRATE,UR NEGATIVE NEGATIVE [facility] LEUKOCYTE ESTERASE ,UR MODERATE NEGATIVE A [facility] BILIRUBIN,UR NEGATIVE NEGATIVE [facility] UROBILINOGEN,UR 0.2-1.0 EU MG/DL NEG-0-1.0 [facility] RBC,UR >100 PER HPF 0-2 A [facility] WBC,UR 25-49 PER HPF <5 A [facility] URINE EPITH MANY PER/LPF FEW-MOD [facility] BACTERIA,UR RARE PER HPF NONE [facility] MUCUS,UR RARE PER HPF NONE SEEN [facility] ID Date Data Source [id number] 05/12/2020 10:30:00 AM EST [facility] Run: 05/12/201029 INTERFACED REPORT Name: EmirTaniya Age/Sex: 34/F Location: ED Acct: [id number] Unit: [id number] Status: DEP ER Room/Bed: Re05/11/20 Disch: Tatiana Dr: Kyree John MD Specimen #: [id number] Ordered : 05/11/20 Collected : 05/11/20 By: ARLYN Received: 05/11/20 By: DELLA Source: URINE CC Specimen Description: Procedure Result - COLONY COUNT Final COLONY COUNT GREATER THAN 100,000 CFU/ML URINE CULTURE Final PRESENCE OF 3 OR MORE ORGANISMS-SPECIMEN MAY BE CONTAMINATED SUGGEST REPEAT END OF REPORT Name Value Range Interpretation Code Description Data Victoria rce(s) Supporting Document(s) ID Date Data Source [id number]/06/2020 11:37:00 AM EST [facility] Name Value Range Interpretation Code Description Data Victoria rce(s) Supporting Document(s) SARS-CoV-2 RdRp gene result Negative [place] [facility] This lab was ordered by Perfecto edwards and reported by [facility]. ID Date Data Source [id number] 05/06/2020 12:00:00 AM EST [facility] Name Value Range Interpretation Code Description Data Victoria rce(s) Supporting Document(s) SARS coronavirus 2 RNA [Presence] in Res piratory specimen by WILLIAN with probe detection NEGATIVE [facility] This lab was ordered by [facility] and reported by [employer]. ID Date Data Source [id number] 04/30/2020 08:31:00 AM EST [facility] Name Value Range Interpretation Code Description Data Victoria rce(s) Supporting Document(s) SODIUM 139 mmol/L 136-145 [facility] POTASSIUM 4.3 mmol/L 3.5-5.2 [facility] CHLORIDE 107 mmol/L 100-108 [facility] CO2 24 mmol/L 21-32 [facility] GLUCOSE 98 mg/dL 70-100 [facility] BUN 13 mg/dL 7-21 [facility] CREATININE 0.9 mg/dL 0.6-1.3 [facility] Normal Kidney Function or Mild Disease - GFR >OR= 60Chronic Kidney Disease - GFR 15-59Renal Failure - GFR < 15GFR not calculated on patients under 18 years of age. CALCIUM 8.8 mg/dL 8.5-10.8 [facility] GFR >60 [facility] T BILI 0.3 mg/dL 0.0-1.2 [facility] T PROTEIN 7.5 gm/dL 6.4-8.2 [facility] ALBUMIN 3.9 gm/dL 3.4-4.8 [facility] ALK PHOS 109 U/L 40-150 [facility] ALT (SGPT) 51 U/L 0-55 [facility] AST (SGOT) 50 U/L 5-37 H [facility] ID Date Data Source [id number] 04/30/2020 08:01:00 AM EST [facility] Name Value Range Interpretation Code Description Data Victoria rce(s) Supporting Document(s) WBC 7.3 K/uL 4.8-10.8 [facility] RBC 4.01 M/uL 4.20-5.40 L [facility] HEMOGLOBIN 11.6 gm/dL 12.0-16.0 L [facility] HEMATOCRIT 34.7 % 36.0-48.0 L [facility] MCV 86.4 fL 80.0-100.0 [facility] MCHC 33.4 % 30.0-36.5 [facility] MCH 28.9 pg 27.0-34.0 [facility] RDW 13.5 % 11.0-15.0 [facility] PLATELET 295 K/uL 130-450 [facility] MPV 6.8 fL 6.0-12.0 [facility] NE% 60 % 37-80 [facility] LY% 30 % 10-50 [facility] MO% 7 % 0-12 [facility] Eosinophils [#/volume] in Blood by Automated count 2 % <=8 [facility] BA% 0 % <=3 [facility] NE# 4.4 K/uL 1.8-8.6 [facility] LYMPH# 2.2 K/uL 0.5-5.0 [facility] MONO# 0.5 K/uL 0.0-1.3 [facility] EOS# 0.2 K/uL 0.0-0.9 [facility] BASO# 0.0 K/ul 0.0-0.3 [facility] ID Date Data Source [id number] 05/02/2020 09:38:00 AM EST [facility] CULTURE OBSERVATIONS 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 Name Value Range Interpretation Code Description Data Victoria rce(s) Supporting Document(s) ID Date Data Source [id number] 04/30/2020 08:50:00 AM EST [facility] Name Value Range Interpretation Code Description Data Victoria rce(s) Supporting Document(s) URINE MICRO [facility] WBC 3-5 /HPF 0-2 ! [facility] RBC >100 /HPF NONE SEEN ! [facility] [employer] has definedMicroscopic Hematuria as 3 or more RBC per highpowered field from a single positive urinalysis withmicroscopy. BACTERIA FEW /HPF NONE SEEN ! [facility] EPITHELIAL CELLS FEW /HPF NONE SEEN ! [facility] al ID Date Data Source [id number] 04/30/2020 08:42:00 AM EST [facility] Name Value Range Interpretation Code Description Data Victoria rce(s) Supporting Document(s) COLOR LUIS M [facility] APPEARANCE HAZY CLEAR ! [facility] SPECIFIC GRAVITY 1.025 1.000-1.030 [facility] ital pH 5.0 5.0-8.0 [facility] LEUKOCYTES 1+ NEGATIVE ! [facility] NITRATE NEGATIVE NEGATIVE [facility] PROTEIN 30 [ 1+] mg/dL NEGATIVE ! [facility] GLUCOSE NORMAL mg/dL NORMAL [facility] KETONE NEGATIVE mg/dL NEGATIVE [facility] UROBILINOGEN NORMAL mg/dL NORMAL [facility] BILIRUBIN NEGATIVE mg/dL NEGATIVE [facility] HEMOGLOBIN 3+ NEGATIVE ! [facility] ID Date Data Source [id number] 04/22/2020 12:00:00 AM EST [facility] Name Value Range Interpretation Code Description Data Victoria rce(s) Supporting Document(s) SARS coronavirus 2 RNA [Presence] in Res piratory specimen by WILLIAN with probe detection NEGATIVE [facility] This lab was ordered by Perfecto Jamil and reported by [employer]. ID Date Data Source [id number] 04/10/2020 07:21:13 AM EST [facility] Note Status: FINAL (SIGNED)Full Name: Kade JONES Date: 1985Visit ID: [id number] Record Number: [id number]: 34YSex: FemaleRoom Location: ER ROOMSBed Location: ER [...] Date;Description;Frequency;Ordered By;Status04/03/2020;ED INITIATE ABDOMINAL PAIN PATHWAY ;Once;EDGARDO CROWE;Today04/03/2020;IV - PERIPHERAL - INSERT & MAINTAIN ;Once;EDGARDO CROWE;04/03/2020;AMYLASE ;Once;EDGARDO CROWE;04/03/2020;CBC DIFF ;Once;EDGARDO CROWE;04/03/2020;COMPREHENSIVE PANEL ;Once;EDGARDO CROWE;04/03/2020;LIPASE ;Once;EDGARDO CROWE;04/03/2020;PT/INR ;Once;EDGARDO CROWE;04/03/2020;PTT ;Once;EDGARDO CROWE;04/03/2020;SODIUM CHLORIDE 0.9% 1,000 ML IV ;ED - ONE TIME ONLY;EDGARDO CROWE;Inactive04/04/2020;ED-NPO ;Meals;DEGARDO CROWE;Future;Point of Care /URINE ;Once;EDGARDO CROWE;;Point of Care URINE DIPSTICK ;Once;EDGARDO CROWE;;CEPHALEXIN 500 MG ORAL ;ED - ONE TIME ONLY;EDGARDO CROWE;;ACETAMINOPHEN 650 MG ORAL ;ED - ONE TIME ONLY;EDGARDO CROWE;;TRAMADOL 50 MG ORAL ;ED - ONE TIME ONLY;EGDARDO CROWE;Laboratory resultsLab Results for the past 24 [...] Tylenol, Tramadol, Cephalexin, PMD f/u [facility]Dis[facility]: Patient Name: Taniya Field Date: 1985 Address: [address] [place] [address] Sex: Female Rx Written Rx Dispensed Drug Quantity Days Supply Prescriber Name Payment Method Dispenser 01/18/2020 01/21/2020 hydrocodone-acetaminophen 5-325 mg tablet 10 2 Omayra Jorge () Insurance [facility] #[id number] 10/15/2019 10/15/2019 tramadol hcl 50 mg tablet 9 3 Marti Fleming Insurance [facility] #[id number] Patient Name: Taniya Field Date: 1985 Address: [address] [place] [address] Sex: Female Rx Written Rx Dispensed Drug Quantity Days Supply Prescriber Name Payment Method Di byron 08/12/2019 08/12/2019 acetaminophen-cod #3 tablet 10 3 Estevan Rich MD Insurance [facility] #[id number] 07/22/2019 07/22/2019 oxycodone-acetaminophen 5-325 mg tab 14 3 Milena Moreno L Insurance [facility] #[id number] 06/21/2019 06/21/2019 oxycodone-acetaminophen 5-325 mg tab 28 7 Herman Jackson) Insurance [facility] #[id number] 03/27/2019 04/04/2019 tramadol hcl 50 mg tablet 3 1 Edgardo Crowe Insurance [facility] #[id number] 04/01/2019 04/04/2019 oxycodone-acetaminophen 5-325 mg tab 12 3 Pamela Potter A Insurance [facility] #[id number] did not require critical care timeMidlevel signature: [facility] date: 04/08/2020 22:34Attending Physician Attestation: I have reviewed the midlevel documentation, agree with the documentation, medical decision making and treatment plan as outlined by the midlevelPhysician signature: Asim MITCHELL signature date: 04/10/2020 07:20 Name Value Range Interpretation Code Description Data Victoria rce(s) Supporting Document(s) ID Date Data Source [id number] 04/03/2020 05:09:00 PM EST [facility] Name Value Range Interpretation Code Description Data Victoria rce(s) Supporting Document(s) AMYLASE 45 U/L 25-125 [facility] ID Date Data Source [id number] 04/03/2020 05:09:00 PM [facility] Name Value Range Interpretation Code Description Data Victoria rce(s) Supporting Document(s) LIPASE 18 U/L 8-78 [facility] ID Date Data Source [id number] 04/03/2020 05:09:00 PM EST [facility] Name Value Range Interpretation Code Description Data Victoria rce(s) Supporting Document(s) SODIUM 141 mmol/L 136-145 [facility] POTASSIUM 3.6 mmol/L 3.5-5.2 [facility] CHLORIDE 108 mmol/L 100-108 [facility] CO2 23 mmol/L 21-32 [facility] GLUCOSE 85 mg/dL 70-100 [facility] BUN 12 mg/dL 7-21 [facility] CREATININE 0.8 mg/dL 0.6-1.3 [facility] Normal Kidney Function or Mild Disease - GFR >OR= 60Chronic Kidney Disease - GFR 15-59Renal Failure - GFR < 15GFR not calculated on patients under 18 years of age. CALCIUM 8.9 mg/dL 8.5-10.8 [facility] GFR >60 [facility] T BILI 0.3 mg/dL 0.0-1.2 [facility] T PROTEIN 7.4 gm/dL 6.4-8.2 [facility] ALBUMIN 4.4 gm/dL 3.4-4.8 [facility] ALK PHOS 124 U/L 40-150 [facility] ALT (SGPT) 44 U/L 0-55 [facility] AST (SGOT) 40 U/L 5-37 H [facility] ID Date Data Source [id number] 04/03/2020 05:06:00 PM EST [facility] Name Value Range Interpretation Code Description Data Victoria rce(s) Supporting Document(s) PTT 30.8 sec 25.6-36.4 [facility] ID Date Data Source [id number] 04/03/2020 05:03:00 PM EST [facility] Name Value Range Interpretation Code Description Data Victoria rce(s) Supporting Document(s) PROTIME 11.9 sec 9.4-12.4 [facility] INR 1.1 [facility] INR INTERPERTATION 2.0 -3.0 THERAPEUTIC MONITORING2.5-3.5 HEART VALVE REPLACEMENT ID Date Data Source [id number] 04/03/2020 04:53:00 PM EST [facility] Name Value Range Interpretation Code Description Data Victoria rce(s) Supporting Document(s) WBC 8.2 K/uL 4.8-10.8 [facility] RBC 4.09 M/uL 4.20-5.40 L [facility] HEMOGLOBIN 12.0 gm/dL 12.0-16.0 [facility] HEMATOCRIT 35.5 % 36.0-48.0 L [facility] MCV 86.6 fL 80.0-100.0 [facility] MCHC 33.7 % 30.0-36.5 [facility] MCH 29.2 pg 27.0-34.0 [facility] RDW 14.1 % 11.0-15.0 [facility] PLATELET 326 K/uL 130-450 [facility] MPV 6.5 fL 6.0-12.0 [facility] NE% 65 % 37-80 [facility] LY% 28 % 10-50 [facility] MO% 6 % 0-12 [facility] Eosinophils [#/volume] in Blood by Automated count 1 % <=8 [facility] BA% 1 % <=3 [facility] NE# 5.3 K/uL 1.8-8.6 [facility] LYMPH# 2.3 K/uL 0.5-5.0 [facility] MONO# 0.5 K/uL 0.0-1.3 [facility] EOS# 0.1 K/uL 0.0-0.9 [facility] BASO# 0.1 K/ul 0.0-0.3 [facility] ID Date Data Source [id number] 03/29/2020 05:56:[address] [address] HEALTH INFORMATION MANAGEMENT ED/UC Physician Report : [id number] Signed Patient: Taniya Field Acct:[id number] Unit: [id number] : 1985 Arrival Date: 03/29/20 Age/Sex: 34 [...] Affect Skin Skin exam: Dry, Intact and [place] Vital Signs Vital signs: Vital Signs [...] % Lymph % (Auto) 25.3 (20.0-51.0) % Amelia % (Auto) 5.3 (2.0-15.0) % Eos % (Auto) 0.9 (0.0-11.0) % Baso % (Auto) 0.2 (0.0-2.0) % Nucleat RBC Rel Count Not Reportable Gran # 6.16 (1.50-6.50) 10 3/uL Lymph # (Auto) 2.3 (1.0-5.0) k/uL Amelia # (Auto) 0.48 (0.20-1.50) k/uL Eos # [...] of fatty liver. Patient Name: Taniya Field EExam Date:03/29/20Date of :1985Age:34Gender:FemaleMRN:[id number] Location:[facility]#:[id number] _[facility] [place], [place] [address]Kjrjcm, [place] [address]Zbgefv, [place] [address] [address] [place] [address] [place], [place] 53090245-821-927 [phone] you for your referral. Please call us at [facility] [phone] or [facility] [phone] for any future scheduling needs.RPT:[id number] [facility] HOSPITALIMPRESSION: Kidneys unremarkable. No stones identified. No hydronephrosis.Partially [...] File>> Initializing User: Blanca Adkins NP 03/29/20 6261 Signed by: Blanca Adkins NP 03/29/20 1912 Elton Dobbs MD 03/30/20 0800 Name Value Range Interpretation Code Description Data Victoria rce(s) Supporting Document(s) ID Date Data Source [id number] 03/29/2020 05:45:00 PM EST [facility] ([facility]) Name Value Range Interpretation Code [...] or Plasma 27 meq/L 22 -33 [facility] ([facility]) Urea nitrogen [Mass/volume] in Serum or Plasma 15 mg/dL 7-25 [facility] ([facility]) Anion gap in Serum or Plasma 10 5-16 [facility] ([facility]) Glomerular filtration rate/1.73 sq M.pre dicted [Volume Rate/Area] in Serum or Plasma by Creatinine-based formula (MDRD) 81.2 mL/min [facility] ([facility]) Stage G2 - Mildly decreased kidney funct [...] Serum or Plasma 90 mg/dL 70-100 [facility] ([facility]) Calcium [Mass/volume] in Serum or Plasma 9.2 mg/dL 8.7-10.5 [facility] ([facility]) ID Date Data Source [id number] 03/29/2020 05:45:00 PM EST [facility] ([facility]arlon ssionate [...] Automated count 32.7 g/dL 32-36 [facility] ([facility]) Erythrocyte mean corpuscular hemoglobin [...] ([facility]) ID Date Data Source [id number] 03/29/2020 05:51:[address] [facility] Name Value Range Interpretation Code Description Data Victoria rce(s) Supporting Document(s) WHITE BLOOD COUNT 9.09 10^3/uL 4.00-10.50 N [facility] ealt RED BLOOD COUNT 4.46 10^6/uL 3.90-5.20 N [facility] th HEMOGLOBIN 12.5 G/DL 11.5-15.6 N [facility] HEMATOCRIT 38.2 % 35.0-46.0 N [facility] MCV 85.7 FL 80.0-100.0 N [facility] MCH 28.0 PG 27.0-34.0 N [facility] MCHC 32.7 G/DL 32-36 N [facility] RDW 14.2 % 11.5-14.5 N [facility] PLATELET COUNT 328 10^3/uL 130-400 N [facility] MPV 8.9 FL 8.7-13.2 N [facility] GRAN % (AUTO) 67.7 % 42.0-75.0 N [facility] LYMPH % (AUTO) 25.3 % 20.0-51.0 N [facility] MONO % (AUTO) 5.3 % 2.0-15.0 N [facility] EOS % (AUTO) 0.9 % 0.0-11.0 N [facility] BASO % (AUTO) 0.2 % 0.0-2.0 N [facility] IG % (AUTO) 0.6 % 1.00-5.00 [facility] IG # (AUTO) 0.1 10^3/uL <0.5 [facility] GRAN # (AUTO) 6.16 10^3/uL 1.50-6.50 N [facility] LYMPH # (AUTO) 2.3 k/uL 1.0-5.0 N [facility] MONO # (AUTO) 0.48 k/uL 0.20-1.50 N [facility] EOS # (AUTO) 0.08 10^3/uL 0.00-1.10 N [facility] BASO # (AUTO) 0.02 10^3/uL 0.00-0.20 N [facility] ID Date Data Source [id number] 03/29/2020 06:03:00 PM EST [facility] Name Value Range Interpretation Code Description Data Victoria rce(s) Supporting Document(s) SODIUM 138 MEQ/L 135-145 N [facility] POTASSIUM 3.6 MEQ/L 3.5-5.3 N [facility] CHLORIDE 105 MEQ/L 94-110 [facility] CARBON DIOXIDE 27 MEQ/L 22-33 N [facility] ANION GAP 10 5-16 N [facility] BLOOD UREA NITRO 15 MG/DL 7-25 N [facility] CREATININE 0.8 MG/DL 0.6-1.4 N [facility] GFR 81.2 ML/MIN [facility] Stage G2 - Mildly decreased kidney func tion The GFR is an estimate of the Glomerular Filtration Rate. It is an aid to assess a patient's renal function. It is not a conclusive diagnosis of kidney disease. GFR normal is >=90 The MDRD GFR calculation is considered valid between the ages of 18 and 75 years only. BUN/CREAT RATIO 18 8-36 [facility] GLUCOSE 90 MG/DL 70-100 N [facility] CA 9.2 MG/DL 8.7-10.5 N [facility] ID Date Data Source [id number] 03/29/2020 05:27:00 PM EST [facility] ([facility]) [...] ([facility]) ID Date Data Source [id number] 03/29/2020 06:37:00 PM EST [facility] Name Value Range Interpretation Code Description Data Victoria rce(s) Supporting Document(s) COLOR,UR RED YELLOW A [facility] APPEARANCE,UR CLOUDY CLEAR A [facility] PH,UR 6.0 5.0-8.0 [facility] SPECIFIC GRAVITY,UR 1.016 1.002-1.035 N [facility] PROTEIN,UR 100 MG/DL NEGATIVE A [facility] GLUCOSE, UR NEGATIVE MG/DL NEGATIVE [facility] KETONES,UR NEGATIVE MG/DL NEGATIVE [facility] OCCULT BLOOD,UR LARGE NEGATIVE A [facility] NITRATE,UR NEGATIVE NEGATIVE [facility] LEUKOCYTE ESTERASE ,UR TRACE NEGATIVE A [facility] BILIRUBIN,UR NEGATIVE NEGATIVE [facility] UROBILINOGEN,UR 0.2-1.0 EU MG/DL NEG-0-1.0 [facility] RBC,UR >100 PER HPF 0-2 A [facility] URINE EPITH MANY PER/LPF FEW-MOD [facility] BACTERIA,UR RARE PER HPF NONE [facility] MUCUS,UR RARE PER HPF NONE SEEN [facility] ID Date Data Source [id number] 03/22/2020 07:45:05 AM [facility] Note Status: FINAL (SIGNED)Full Name: Kade JONES Date: 1985Visit ID: [id number] Record Number: [id number]: 34YSex: FemaleRoom Location: ER ROOMSBed Location: ER ORTHODate of Service: 03/22/2020 07:12Creation Date: 03/22/2020 07:12Created By: [facility] Physician: FORTUNATO CONTRERASTime patient first seen: [...] rce(s) Supporting Document(s) ID Date Data Source [id number] 03/22/2020 07:12:09 AM [facility] Note Status: FINAL (SIGNED)Full Name: Kade JONES Date: 1985Visit ID: [id number] Record Number: [id number]: 34YSex: FemaleRoom Location: ER ROOMSBed Location: ER 16Date of Service: 03/06/2020 08:33Creation Date: 03/06/2020 08:33Created By: BECKY [facility]AKRABORTYSalem [facility] Physician: FORTUNATO CONTRERASTime patient first seen: [phone] Informant: PatientHPSusan Chief Complaint: Left lower quadrant pain that [...] impression: , renal calculus, UTI, polynephritisOrdersStart Date;Description;Frequency;Ordered By;Jqgfhs7803/06/2020;CT-ABD PELVIS NO CONTRAST (DRY) ;Once;OMAYRA JORGE;Njcrzewcppnw72/22/2020;BASIC METABOLIC PANEL ;Once;OMAYRA JORGE;Today03/06/2020;CBC DIFF ;Once;OMAYRA JORGE;Today03/06/2020;LIPASE ;Once;OMAYRA JORGE;Today03/06/2020; TEST - SERUM ;Once;OMAYRA JORGE;Today03/06/2020;CULTURE URINE ;O nce;OMAYRA JORGE;Today03/06/2020;URINALYSIS ROUTINE ;Once;OMAYRA JORGE;Today03/06/2020;URINE MICROSCOPIC ;Once;OMAYRA JORGE;Today03/06/2020;SODIUM CHLORIDE 0.9% 1,000 ML IV ;ED - ONE TIME ONLY;OMAYRA JORGE;Yxyhcbwm67/22/2020;SODIUM CHLORIDE 0.9% 500 ML IV ;ED - ONE TIME ONLY;OMAYRA JORGE;Xndrrdgz46/22/2020;RENAL/BLADDER U/S LIMITED ;Once;OMAYRA JORGE;Today03/06/2020;PT/INR ;Once;OMAYRA JORGE;Today03/06/2020;PTT ;Once;OMAYRA JORGE;Today03/06/2020;MORPHINE 4 MG/1 ML IVP ;ED - ONE TIME ONLY;OMAYRA JORGE;InactiveLaboratory resultsLab Results for the past 24 hoursOrder;Test;Value;Reference Range;Comments;Status;CollectionURINALYSIS ROUTINE;Dipstick Urine Color;LUIS M;;;Final Result ; 08:40:04URINALYSIS ROUTINE;Dipstick Urine Turbidity;TURBID;;;Final Result ;03/06/2020 08:40:04URINALYSIS ROUTINE;Dipstick Specific Cumming;1.020;(1.000-1.030);;Final Result ;03/06/2020 08:40:04URINALYSIS ROUTINE;Dipstick Urine pH;5.0;(5.0- 8.0);;Final [...] DIFF;BASOPHIL;0;( < =3 %);;Final Result ;03/06/2020 08:30:00CBC DIFF;DENA#;4.9;(1.8-8.6 K/uL);;Final Result ;03/06/2020 08:30:00CBC DIFF;LYMPHOCYTE #;2.1;(0.5-5.0 K/uL);;Final [...] No hydronephrosis or nephrolithiasis. END OF IMPRESSION [facility] submits Radiology results to [facility] and [facility] then provides those same results to [facility]. All results are available to [facility] and [facility] provider portal users. [facility] DICOM images are available to the [facility] provider portal users only. [facility] DICOM images are not available to the [facility] provider portal users. There is no current [facility] cross-[facility] functionality allowing images to be available through the [facility] to [facility] connectivity. Electronically signed By: Rosaura Stephens M.D. [...] condition: StableDischarge plan: Tylenol; KeflexCare transferred to Radha Ramposition: homePatient did not require critical care timeActing as scribe in the presence of: Michelle Jensen signature: Asim JOHNSON signature date: 03/06/2020 10:46 Name Value Range Interpretation Code Description Data Victoria rce(s) Supporting Document(s) ID Date Data Source [id number] 03/18/2020 04:12:04 PM EST [facility] Note Status: FINAL (SIGNED)Full Name: Kade JONES Date: 1985Visit ID: [id number] Record Number: [id number]: 34YSex: FemaleRoom Location: ER ROOMSBed Location: ER BD 10Date of Service: 03/03/2020 19:27Creation Date: 03/03/2020 [...] off normal truncal ROM WNL OrdersStart Date;Description;Frequency;Ordered By;Jzepkg3603/03/2020;CT- ABD PELVIS NO CONTRAST (DRY) ;Once;EDGARDO CROWE;Today03/03/2020;STRAIN URINE, SAVE STONE ;Once;EDGARDO CROWE;03/03/2020;CBC DIFF ;Once;EDGARDO CROWE;03/03/2020;COMPREHENSIVE PANEL ;Once;EDGARDO CROWE;03/03/2020;HYDROCODONE-ACETAMINOPHEN 5-325MG 1 TAB ORAL ;ED - ONE TIME ONLY;EDGARDO CROWE;Dcigfswa76/19/2020;Point of Care /URINE ;Once;EDGARDO CROWE;03/03/2020;Point of Care [...] Urine Turbidity;HAZY;;;Final Result ;03/03/2020 19:40:00URINALYSIS ROUTINE;Dipstick Specific Cumming;1.025;(1.000-1.030);;Final Result ;03/03/2020 19:40:00URINALYSIS ROUTINE;Dipstick Urine pH;6.0;(5.0-8.0);;Final Result [...] and agree with or edited the findings. [facility] submits Radiology results to [facility] and [facility] then provides those same results to [facility]. All results are available to [facility] and [facility] provider portal users. [facility] DICOM images are available to the [facility] provider portal users only. [facility] DICOM images are not available to the [facility] provider portal users. There is no current [facility] cross[facility] functionality allowing images to be available through the [facility] connectivity. Interpreted By: Shalonda Jade M.D. Electronically [...] Tylenol, PMD f/u this coming week [facility]: Patient Name: Taniya Field Date: 1985 Address: [address] [place] [address] Sex: Female Rx Written Rx Dispensed Drug Quantity Days Supply Prescriber Name Payment Method Dispenser 01/18/2020 01/21/2020 hydrocodone-acetaminophen 5-325 mg tablet 10 2 Omayra Jorge (DO) Insurance [facility] #[id number] 10/15/2019 10/15/2019 tramadol hcl 50 mg tablet 9 3 Marti Fleming Insurance [facility] #[id number] Patient Name: Taniya Field Date: 1985 Address: [address] [place] [address] Sex: Female Rx Written Rx Dispensed Drug Quantity Days Supply Prescriber Name Payment Method Dispenser 08/12/2019 08/12/2019 acetaminophen-cod #3 tablet 10 3 Estevan Rich MD Insurance [facility] #[id number] 07/22/2019 07/22/2019 oxycodone-acetaminophen 5-325 mg tab 14 3 Milena Moreno L Insurance [facility] #[id number] 06/21/2019 06/21/2019 oxycodone-acetaminophen 5-325 mg tab 28 7 Herman Jackson) Insurance [facility] #[id number] 03/27/2019 04/04/2019 tramadol hcl 50 mg tablet 3 1 Edgardo Crowe Insurance [facility] #[id number] 04/01/2019 04/04/2019 oxycodone- acetaminophen 5-325 mg tab 12 3 Pamela Potter A Insurance [facility] #[id number] did not require critical care timeMidlevel signature: EDGARDO CROWE [facility] signature date: 03/08/2020 23:11Attending Physician Attestation: I have reviewed the midlevel documentation, agree with the documentation, medical decision making and treatment plan as outlined by the midlevelPhysician signature: NANI MOSQUERA [facility] Centers[facility] signature date: 03/18/2020 16:10 Name Value Range Interpretation Code Description Data Victoria rce(s) Supporting Document(s) ID Date Data Source [id number] 03/08/2020 08:35:00 AM EST [facility] CULTURE OBSERVATIONS 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 [facility] RBC >100 /HPF NONE SEEN ! [facility] [employer] has definedMicroscopic Hematuria as 3 or more RBC per highpowered field from a single positive urinalysis withmicroscopy. BACTERIA MANY /HPF NONE SEEN ! [facility] EPITHELIAL CELLS MODERATE /HPF NONE SEEN ! [facility] spital AMORPHOUS SEDIMENT 1+ /HPF NONE SEEN ! [facility] ital ID Date Data Source [id number] 03/06/2020 08:47:00 AM EST [facility] Name Value Range Interpretation Code Description Data Victoria rce(s) Supporting Document(s) COLOR LUIS M [facility] APPEARANCE TURBID CLEAR ! [facility] SPECIFIC GRAVITY 1.020 1.000-1.030 [facility] ital pH 5.0 5.0-8.0 [facility] LEUKOCYTES 2+ NEGATIVE ! [facility] NITRATE POSITIVE NEGATIVE ! [facility] PROTEIN 100 [ 2+] mg/dL NEGATIVE ! [facility] l GLUCOSE NORMAL mg/dL NORMAL [facility] KETONE NEGATIVE mg/dL NEGATIVE [facility] UROBILINOGEN NORMAL mg/dL NORMAL [facility] l BILIRUBIN NEGATIVE mg/dL NEGATIVE [facility] HEMOGLOBIN 3+ NEGATIVE ! [facility] ID Date Data Source [id number] 03/06/2020 10:03:57 AM EST [facility] 03/06/2020 9:50 AMRENAL ULTRASOUNDCLINIC AL INFORMATION: [...] 5 mLMiscellaneous: None.IMPRESSION:No hydronephrosis or nephrolithiasis.END [facility]ION[facility] then provides those [facility]. Allresults are available to [facility] and [facility] provider portalusers. [facility] DICOM images are available to the[facility] provider portal users only. [facility] DICOMimages are not available to the [facility] provider portal users. There isno current [facility] cross-[facility] functionality allowing [facility] to be [facility].Electronically signed By: Rosaura Stephens M.D.Read By: ROSAURA STEPHENSDate: 03/06/2020 10:00 Name Value Range Interpretation Code Description Data Victoria rce(s) Supporting Document(s) ID Date Data Source [id number] 03/06/2020 08:55:00 AM EST [facility] Name Value Range Interpretation Code Description Data Victoria rce(s) Supporting Document(s) SERUM TEST NEGATIVE [facility] spital PREGS METHODOLOGY [facility] ID Date Data Source [id number] 03/06/2020 08:53:00 AM EST [facility] Name Value Range Interpretation Code Description Data Victoria rce(s) Supporting Document(s) LIPASE 24 U/L 8-78 [facility] ID Date Data Source [id number] 03/06/2020 08:53:00 AM EST [facility] Name Value Range Interpretation Code Description Data Victoria rce(s) Supporting Document(s) SODIUM 139 mmol/L 136-145 [facility] POTASSIUM 3.9 mmol/L 3.5-5.2 [facility] CHLORIDE 106 mmol/L 100-108 [facility] CO2 25 mmol/L 21-32 [facility] GLUCOSE 107 mg/dL 70-100 H [facility] BUN 14 mg/dL 7-21 [facility] CREATININE 0.8 mg/dL 0.6-1.3 [facility] Normal Kidney Function or Mild Disease - GFR >OR= 60Chronic Kidney Disease - GFR 15-59Renal Failure - GFR < 15GFR not calculated on patients under 18 years of age. CALCIUM 8.9 mg/dL 8.5-10.8 [facility] GFR >60 [facility] ID Date Data Source [id number] 03/06/2020 08:43:00 AM EST [facility] Name Value Range Interpretation Code Description Data Victoria rce(s) Supporting Document(s) WBC 7.7 K/uL 4.8-10.8 [facility] RBC 4.48 M/uL 4.20-5.40 [facility] HEMOGLOBIN 12.6 gm/dL 12.0-16.0 [facility] HEMATOCRIT 38.4 % 36.0-48.0 [facility] MCV 85.9 fL 80.0-100.0 [facility] MCHC 32.9 % 30.0-36.5 [facility] MCH 28.2 pg 27.0-34.0 [facility] RDW 13.7 % 11.0-15.0 [facility] PLATELET 277 K/uL 130-450 [facility] MPV 6.5 fL 6.0-12.0 [facility] NE% 63 % 37-80 [facility] LY% 27 % 10-50 [facility] MO% 7 % 0-12 [facility] Eosinophils [#/volume] in Blood by Automated count 2 % <=8 [facility] BA% 0 % <=3 [facility] NE# 4.9 K/uL 1.8-8.6 [facility] LYMPH# 2.1 K/uL 0.5-5.0 [facility] MONO# 0.6 K/uL 0.0-1.3 [facility] EOS# 0.1 K/uL 0.0-0.9 [facility] BASO# 0.0 K/ul 0.0-0.3 [facility] ID Date Data Source [id number] 03/03/2020 08:27:00 PM EST [facility] Name Value Range Interpretation Code Description Data Victoria rce(s) Supporting Document(s) SODIUM 138 mmol/L 136-145 [facility] POTASSIUM 3.8 mmol/L 3.5-5.2 [facility] CHLORIDE 107 mmol/L 100-108 [facility] CO2 22 mmol/L 21-32 [facility] GLUCOSE 93 mg/dL 70-100 [facility] BUN 15 mg/dL 7-21 [facility] CREATININE 0.7 mg/dL 0.6-1.3 [facility] Normal Kidney Function or Mild Disease - GFR >OR= 60Chronic Kidney Disease - GFR 15-59Renal Failure - GFR < 15GFR not calculated on patients under 18 years of age. CALCIUM 9.7 mg/dL 8.5-10.8 [facility] GFR >60 [facility] T BILI 0.2 mg/dL 0.0-1.2 [facility] T PROTEIN 7.3 gm/dL 6.4-8.2 [facility] ALBUMIN 4.0 gm/dL 3.4-4.8 [facility] ALK PHOS 119 U/L 40-150 [facility] ALT (SGPT) 50 U/L 0-55 [facility] AST (SGOT) 44 U/L 5-37 H [facility] ID Date Data Source [id number] 03/03/2020 08:13:00 PM EST [facility] CBC W/DIFF STAT Name Value Range Interpretation Code Description Data Victoria rce(s) Supporting Document(s) WBC 7.9 K/uL 4.8-10.8 [facility] RBC 4.19 M/uL 4.20-5.40 L [facility] HEMOGLOBIN 12.6 gm/dL 12.0-16.0 [facility] HEMATOCRIT 36.5 % 36.0-48.0 [facility] MCV 87.1 fL 80.0-100.0 [facility] MCHC 34.5 % 30.0-36.5 [facility] MCH 30.0 pg 27.0-34.0 [facility] RDW 14.2 % 11.0-15.0 [facility] PLATELET 282 K/uL 130-450 [facility] MPV 6.3 fL 6.0-12.0 [facility] NE% 63 % 37-80 [facility] LY% 27 % 10-50 [facility] MO% 8 % 0-12 [facility] Eosinophils [#/volume] in Blood by Automated count 2 % <=8 [facility] BA% 0 % <=3 [facility] NE# 5.0 K/uL 1.8-8.6 [facility] LYMPH# 2.2 K/uL 0.5-5.0 [facility] MONO# 0.6 K/uL 0.0-1.3 [facility] EOS# 0.1 K/uL 0.0-0.9 [facility] BASO# 0.0 K/ul 0.0-0.3 [facility] ID Date Data Source [id number] 03/06/2020 07:32:00 AM EST [facility]BS[facility] 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 [facility] RBC >100 /HPF NONE SEEN ! [facility] [employer] has definedMicroscopic Hematuria as 3 or more RBC per highpowered field from a single positive urinalysis withmicroscopy. BACTERIA FEW /HPF NONE SEEN ! [facility] EPITHELIAL CELLS FEW /HPF NONE SEEN ! [facility] al ID Date Data Source [id number] 03/03/2020 08:14:00 PM EST [facility] al Name Value Range Interpretation Code Description Data Victoria rce(s) Supporting Document(s) COLOR LUIS M [facility] APPEARANCE HAZY CLEAR ! [facility] SPECIFIC GRAVITY 1.025 1.000-1.030 [facility] ital pH 6.0 5.0-8.0 [facility] LEUKOCYTES 2+ NEGATIVE ! [facility] NITRATE NEGATIVE NEGATIVE [facility] PROTEIN 100 [ 2+] mg/dL NEGATIVE ! [facility] GLUCOSE NORMAL mg/dL NORMAL [facility] KETONE TRACE mg/dL NEGATIVE ! [facility] UROBILINOGEN 1 mg/dL NORMAL ! [facility] BILIRUBIN NEGATIVE mg/dL NEGATIVE [facility] HEMOGLOBIN 3+ NEGATIVE ! [facility] ID Date Data Source [id number] 03/03/2020 08:34:58 PM EST [facility] al CT - ABD PELVIS NO OVZZKMEB94/19/2020 8: 10 PMCT ABDOMEN AND PELVIS WITHOUT [...] Resident's/Fellow'sinterpretation and agree with or edited the findings.[facility] submits Radiology results to [facility] then provides those same results to [facility]. Allresults are available to [facility] and [facility] provider portalusers. [facility] DICOM images are available to the[facility] provider portal users only. [facility] DICOMimages are not available to the [facility] provider portal users. There isno current [facility] cross-[facility] functionality allowing images to be available throughthe [facility] to [facility] connectivity.Interpreted By: Shalonda Jade M.D.Electronically signed By: Mendy Castellon M.D.Read By: MENDY CASTELLONDate: 03/03/2020 20:31 Name Value Range Interpretation Code Description Data Victoria rce(s) Supporting Document(s) ID Date Data Source [id number] 02/20/2020 04:13:00 [place] [address] HEALTH INFORMATION MANAGEMENT ED/UC Physician Report : [id number] Signed Patient: Taniya Field Acct:[id number] Unit: [facility] [id number] : 1985 Arrival Date: 02/20/20 Age/Sex: 34 [...] % Lymph % (Auto) 25.2 (20.0-51.0) % Amelia % (Auto) 6.0 (2.0- 15.0) % Eos % (Auto) 1.5 (0.0-11.0) % Baso % (Auto) 0.4 (0.0- 2.0) % Nucleat RBC Rel Count Not Reportable Gran # 5.17 (1.50- 6.50) 10 3/uL Lymph # (Auto) 2.0 (1.0-5.0) k/uL Amelia # (Auto) 0.47 (0.20-1.50) k/uL Eos # [...] Urine Appearance (CLEAR) Urine pH (5.0-8.0) Specific Cumming (Man) (1.002-1.035) Urine Protein (NEGATIVE) MG/DL Urine [...] % Lymph % (Auto) (20.0- 51.0) % Amelia % (Auto) (2.0-15.0) % Eos % (Auto) (0.0-11.0) % Baso % (Auto) (0.0-2.0) % Nucleat RBC Rel Count Gran # (1.50- 6.50) 10 3/uL Lymph # (Auto) (1.0-5.0) k/uL Amelia # (Auto) (0.20- 1.50) k/uL Eos # [...] H (CLEAR) Urine pH 6.0 (5.0-8.0) Specific [place] (Man) 1.028 (1.002-1.035) Urine Protein 100 H [...] overlying the renal shadows.Professional interpretation performed by [facility] Medical Imaging at [facility] .End of diagnostic report: [id number]: Boyd Armstrong MD02/20/20 1546 Critical Care Time [...] rce(s) Supporting Document(s) ID Date Data Source [id number] 02/20/2020 04:06:00 PM EST [facility] Name Value Range Interpretation Code Description Data Victoria rce(s) Supporting Document(s) COLOR,UR GREEN YELLOW A [facility] APPEARANCE,UR TURBID CLEAR A [facility] PH,UR 6.0 5.0-8.0 [facility] SPECIFIC GRAVITY,UR 1.028 1.002-1.035 [facility] PROTEIN,UR 100 MG/DL NEGATIVE A [facility] GLUCOSE, UR NEGATIVE MG/DL NEGATIVE [facility] KETONES,UR NEGATIVE MG/DL NEGATIVE [facility] OCCULT BLOOD,UR LARGE NEGATIVE A [facility] NITRATE,UR NEGATIVE NEGATIVE [facility] LEUKOCYTE ESTERASE ,UR TRACE NEGATIVE A [facility] BILIRUBIN,UR NEGATIVE NEGATIVE [facility] UROBILINOGEN,UR 0.2-1.0 EU MG/DL NEG-0-1.0 [facility] RBC,UR >100 PER HPF 0-2 [facility] WBC,UR <5 PER HPF <5 [facility] URINE EPITH MANY PER/LPF FEW-MOD [facility] BACTERIA,UR RARE PER HPF NONE [facility] MUCUS,UR RARE PER HPF NONE SEEN [facility] ID Date Data Source [id number] 02/20/2020 03:00:00 PM EST [facility] Name Value Range Interpretation Code Description Data Victoria rce(s) Supporting Document(s) WHITE BLOOD COUNT 7.78 10^3/uL 4.00-10.50 N [facility] ealth RED BLOOD COUNT 4.44 10^6/uL 3.90-5.20 N [facility] th HEMOGLOBIN 12.5 G/DL 11.5-15.6 N [facility] HEMATOCRIT 38.0 % 35.0-46.0 N [facility] MCV 85.6 FL 80.0-100.0 N [facility] MCH 28.2 PG 27.0-34.0 N [facility] MCHC 32.9 G/DL 32-36 N [facility] RDW 14.0 % 11.5-14.5 N [facility] PLATELET COUNT 355 10^3/uL 130-400 [facility] MPV 9.0 FL 8.7-13.2 [facility] GRAN % (AUTO) 66.5 % 42.0-75.0 [facility] LYMPH % (AUTO) 25.2 % 20.0-51.0 [facility] MONO % (AUTO) 6.0 % 2.0-15.0 [facility] EOS % (AUTO) 1.5 % 0.0-11.0 [facility] BASO % (AUTO) 0.4 % 0.0-2.0 N [facility] IG % (AUTO) 0.4 % 1.00-5.00 [facility] IG # (AUTO) 0.0 10^3/uL <0.5 [facility] GRAN # (AUTO) 5.17 10^3/uL 1.50-6.50 [facility] LYMPH # (AUTO) 2.0 k/uL 1.0-5.0 N [facility] MONO # (AUTO) 0.47 k/uL 0.20-1.50 [facility] EOS # (AUTO) 0.12 10^3/uL 0.00-1.10 N [facility] BASO # (AUTO) 0.03 10^3/uL 0.00-0.20 N [facility] ID Date Data Source [id number] 02/20/2020 03:25:00 PM EST [facility] Name Value Range Interpretation Code Description Data Victoria rce(s) Supporting Document(s) HCG QUALITATIVE SPECIMEN [facility] ID Date Data Source [id number] 02/20/2020 03:30:00 PM EST [facility] Name Value Range Interpretation Code Description Data Victoria rce(s) Supporting Document(s) SODIUM 138 MEQ/L 135-145 N [facility] POTASSIUM 4.4 MEQ/L 3.5-5.3 N [facility] CHLORIDE 105 MEQ/L 94-110 N [facility] CARBON DIOXIDE 27 MEQ/L 22-33 N [facility] ANION GAP 10 5-16 N [facility] BLOOD UREA NITRO 16 MG/DL 7-25 N [facility] CREATININE 0.8 MG/DL 0.6-1.4 N [facility] GFR 81.2 ML/MIN [facility] Stage G2 - Mildly decreased kidney func tion The GFR is an estimate of the Glomerular Filtration Rate. It is an aid to assess a patient's renal function. It is not a conclusive diagnosis of kidney disease. GFR normal is >=90 The MDRD GFR calculation is considered valid between the ages of 18 and 75 years only. BUN/CREAT RATIO 20 8-36 N [facility] GLUCOSE 93 MG/DL 70-100 N [facility] CA 9.2 MG/DL 8.7-10.5 N [facility] BILIRUBIN,TOTAL 0.4 MG/DL 0.1-1.3 N [facility] AST 69 U/L 5-40 H [facility] ALT 66 U/L 5-48 H [facility] ALKALINE PHOSPHATASE 133 U/L 40-140 N [facility] alth TOTAL PROTEIN 7.0 G/DL 5.9-8.3 N [facility] ALBUMIN 4.9 G/DL 3.0-5.1 N [facility] GLOBULIN 2.1 G/DL 1.5-3.5 [facility] ALB/GLOB RATIO 2.3 G/DL 1.0-3.0 N [facility] ID Date Data Source [id number] 02/20/2020 03:25:[address] [facility] Name Value Range Interpretation Code Description Data Victoria rce(s) Supporting Document(s) HCG RESULT,S NEGATIVE [facility] Reference range is Negative "Extreme" early may have low levels of HCG present. If is suspected, repeat testing with a new specimen in 48-72 hours ID Date Data Source [id number] 02/14/2020 06:10:[address] [address] HEALTH INFORMATION MANAGEMENT ED/UC Physician Report : [id number] Signed Patient: Taniya Field Acct:[id number] Unit: M [id number] : 1985 Arrival Date: 02/14/20 Age/Sex: 34 [...] Normal Affect Skin Skin exam: Dry, Intact, [place] and [place] Vital Signs Vital signs: [...] <<Signature on File>> Initializing User: Elvira Max [facility] 02/14/20 1810 Signed by: Elvira Max [facility] 02/14/20 2222 Estevan Rich MD 02/17/20 0836 Name Value Range Interpretation Code Description Data Victoria rce(s) Supporting Document(s) ID Date Data Source [id number] 02/14/2020 06:19:[address] [facility] Run: 02/16/20 0756 INTERFACED REPORT Name: Taniya Field Age/Sex: 34/F Location: ED Acct: [id number] Unit: [id number] Status: DEP ER Room/Bed: Re02/14/20 Disch: Att Dr: Estevan Rich MD Specimen #: [id number] Ordered : 02/14/2004/04/1818 Collected : 02/14/2004/04/1799 By: [...] Victoria rce(s) Supporting Document(s) COLOR,UR YELLOW YELLOW [facility] APPEARANCE,UR SL CLOUDY CLEAR [facility] PH,UR 5.0 5.0-8.0 [facility] SPECIFIC GRAVITY,UR 1.021 1.002-1.035 N [facility] PROTEIN,UR NEGATIVE MG/DL NEGATIVE [facility] GLUCOSE, UR NEGATIVE MG/DL NEGATIVE [facility] KETONES,UR NEGATIVE MG/DL NEGATIVE [facility] OCCULT BLOOD,UR MODERATE NEGATIVE A [facility] NITRATE,UR NEGATIVE NEGATIVE [facility] LEUKOCYTE ESTERASE ,UR TRACE NEGATIVE A [facility] BILIRUBIN,UR NEGATIVE NEGATIVE [facility] UROBILINOGEN,UR 0.2-1.0 EU MG/DL NEG-0-1.0 [facility] RBC,UR 10-24 PER HPF 0-2 A [facility] WBC,UR 5-9 PER HPF <5 A [facility] URINE EPITH MANY PER/LPF FEW-MOD [facility] MUCUS,UR RARE PER HPF NONE SEEN [facility] ID Date Data Source [id number] 02/16/2020 07:56:00 AM EST [facility] Run: 02/16/20 0756 INTERFACED REPORT Name: Taniya Field Age/Sex: 34/F Location: ED Acct: [id number] Unit: [id number] Status: DEP ER Room/Bed: Re02/14/20 Disch: Att Dr: Estevan Rich MD Specimen #: [id number] Ordered : 02/14/2004/04/1818 Collected : 02/14/2004/04/1799 By: [...] rce(s) Supporting Document(s) ID Date Data Source [id number] 02/02/2020 02:24:09 PM EST [facility] Note Status: FINAL (SIGNED)Full Name: Kade JONES Date: 1985Visit ID: [id number] Record Number: [id number]: 34YSex: FemaleRoom Location: ER ROOMSBed Location: ER GYNDate of Service: 01/28/2020 09:21Creation Date: 01/28/2020 09:21Created By[facility] Physician: NONE, NONETime patient first seen: [phone] Chief Complaint: Patient is a 34-year-old female [...] abdomen [HOMA [place] 01/28/20 08:55]Past Medical/Surgical HistoryPast me dical/surgical history reviewedFull problems and procedures listProblem;Associated [...] impression: Left flank pain Check labsOrdersStart Date;Description;Frequency;Ordered By;Shiqxd8401/28/2020;CULTURE URINE ;Once;ELDER, SIERRA;Today01/28/2020;CBC DIFF ;Once;ELDER, SIERRA;Today01/28/2020;COMPREHENSIVE PANEL ;Once;ELDER, SIERRA;Today01/28/2020;URINALYSIS ROUTINE ;Once;SIERRA ELDER;Today01/28/2020;URINE MICROSCOPIC ;Once;SIERRA ELDER;TodayLaboratory resultsLab Results for the past 24 hoursOrder;Test;Value;Reference [...] Urine Turbidity;CLEAR;;;Final Result ;01/28/2020 10:11:00URINALYSIS ROUTINE;Dipstick Specific Cumming;1.020;(1.000-1.030);;Final Result ;01/28/2020 10:11:00URINALYSIS ROUTINE;Dipstick Urine pH;6.0;(5.0-8.0);;Final Result [...] rce(s) Supporting Document(s) ID Date Data Source [id number] 02/01/2020 10:48:16 AM [facility] Note Status: FINAL (SIGNED)Full Name: Kade JONES Date: 1985Visit ID: [id number] Record Number: [id number]: 34YSex: FemaleRoom Location: ER ROOMSBed Location: ER GYNDate of Service: 02/01/2020 10:44Creation Date: 02/01/2020 10:44Created By: [facility] Physician: NONE, NONEHPI comments: Patient is [...] normalExtrem: No clubbing/cyanosis/edemaBack: No CVA tendernessOrdersStart Date;Description;Frequency;Ordered By;Jiuvaz6202/01/2020;CBC DIFF ;Once;MYLES LEE;Today02/01/2020;COMPREHENSIVE PANEL ;Once;MYLES LEE;Today02/01/2020;CULTURE URINE ;Once;MYLES LEE;Today02/01/2020;Point of Care /URINE ;Once;MYLES LEE;Today02/01/2020;URINALYSIS ROUTINE ;Once;MYLES LEE;Today02/01/2020;URINE MICROSCOPIC ;Once;MYLES LEE;Today02/01/2020;KETOROLAC 15 MG/1 ML IVP ;ED - ONE TIME ONLY;MYLES LEE;Hrtrjopc96/18/2020;RENAL/BLADDER U/S LIMITED ;Once;MYLES LEE;Today;CIPROFLOXACIN 500 MG ORAL ;ED - ONE TIME ONLY;MYLES LEE;;HYDROCODONE-ACETAMINOPHEN 5-325MG 1 TAB ORAL ;ED - ONE TIME ONLY;MYLES LEE;Laboratory resultsLab Results for the past 24 hoursOrder;Test;Value;Reference Range;Comments;Status;CollectionURINALYSIS ROUTINE;Dipstick Urine Color;LUIS M;;;Final Result ;02/01/2020 08:40:00URINALYSIS ROUTINE;Dipstick Urine Turbidity;CLOUDY;;;Final Result ;02/01/2020 08:40:00URINALYSIS ROUTINE;Dipstick Specific [place];1.020;(1.000-1.030);;Final Result ;02/01/2020 08:40:00URINALYSIS ROUTINE;Dipstick Urine pH;5.0;(5.0- 8.0);;Final [...] not require critical care timePhysician sign ature: FAUSTO AMADOsicirussell signature date: 02/01/2020 10:47 Name Value Range Interpretation Code Description Data Victoria rce(s) Supporting Document(s) ID Date Data Source [id number] 02/01/2020 09:54:12 [facility] historyof kidney stones 02/01/2020 [...] Not measured.Miscellaneous: Fatty liverIMPRESSION:Normal renal ultrasound.END [facility]ION[facility] then provides those [facility] to [facility]. Allresults are available to [facility] and [facility] provider portalusers. [facility] DICOM images are available to the[facility] provider portal users only. [facility] DICOMimages are not available to the [facility] provider portal users. 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 [facility] RBC >100 /HPF NONE SEEN ! [facility] [employer] has definedMicroscopic Hematuria as 3 or more RBC per highpowered field from a single positive urinalysis withmicroscopy. BACTERIA MODERATE /HPF NONE SEEN ! [facility] EPITHELIAL CELLS MANY /HPF NONE SEEN ! [facility] Date Data Source [id number] 02/01/2020 08:54:00 AM EST [facility] Name Value Range Interpretation Code Description Data Victoria rce(s) Supporting Document(s) COLOR LUIS M [facility] APPEARANCE CLOUDY CLEAR ! [facility] SPECIFIC GRAVITY 1.020 1.000-1.030 [facility] ital pH 5.0 5.0-8.0 [facility] LEUKOCYTES 2+ NEGATIVE ! [facility] NITRATE NEGATIVE NEGATIVE [facility] PROTEIN 30 [ 1+] mg/dL NEGATIVE ! [facility] GLUCOSE NORMAL mg/dL NORMAL [facility] KETONE NEGATIVE mg/dL NEGATIVE [facility] UROBILINOGEN NORMAL mg/dL NORMAL [facility] BILIRUBIN NEGATIVE mg/dL NEGATIVE [facility] HEMOGLOBIN 3+ NEGATIVE ! [facility] ID Date Data Source [id number] 02/01/2020 09:05:00 AM EST [facility] Name Value Range Interpretation Code Description Data Victoria rce(s) Supporting Document(s) SODIUM 137 mmol/L 136-145 [facility] POTASSIUM 4.3 mmol/L 3.5-5.2 [facility] CHLORIDE 103 mmol/L 100-108 [facility] CO2 23 mmol/L 21-32 [facility] GLUCOSE 98 mg/dL 70-100 [facility] BUN 15 mg/dL 7-21 [facility] CREATININE 0.8 mg/dL 0.6-1.3 [facility] Normal Kidney Function or Mild Disease - GFR >OR= 60Chronic Kidney Disease - GFR 15-59Renal Failure - GFR < 15GFR not calculated on patients under 18 years of age. CALCIUM 8.6 mg/dL 8.5-10.8 [facility] GFR >60 [facility] T BILI 0.4 mg/dL 0.0-1.2 [facility] T PROTEIN 7.7 gm/dL 6.4-8.2 [facility] ALBUMIN 4.1 gm/dL 3.4-4.8 [facility] ALK PHOS 118 U/L 40-150 [facility] ALT (SGPT) 39 U/L 0-55 [facility] AST (SGOT) 47 U/L 5-37 H [facility] ID Date Data Source [id number] 02/01/2020 08:44:00 AM EST [facility] Name Value Range Interpretation Code Description Data Victoria rce(s) Supporting Document(s) WBC 6.5 K/uL 4.8-10.8 [facility] RBC 4.50 M/uL 4.20-5.40 [facility] HEMOGLOBIN 12.7 gm/dL 12.0-16.0 [facility] HEMATOCRIT 38.6 % 36.0-48.0 [facility] MCV 85.9 fL 80.0-100.0 [facility] MCHC 32.8 % 30.0-36.5 [facility] MCH 28.2 pg 27.0-34.0 [facility] RDW 12.9 % 11.0-15.0 [facility] PLATELET 316 K/uL 130-450 [facility] MPV 7.4 fL 6.0-12.0 [facility] NE% 57 % 37-80 [facility] LY% 34 % 10-50 [facility] MO% 7 % 0-12 [facility] Eosinophils [#/volume] in Blood by Automated count 2 % <=8 [facility] BA% 0 % <=3 [facility] NE# 3.7 K/uL 1.8-8.6 [facility] LYMPH# 2.2 K/uL 0.5-5.0 [facility] MONO# 0.5 K/uL 0.0-1.3 [facility] EOS# 0.1 K/uL 0.0-0.9 [facility] BASO# 0.0 K/ul 0.0-0.3 [facility] ID Date Data Source [id number] 02/01/2020 06:33:07 AM EST [facility] Status: FINAL (SIGNED)Full Name: Kade JONES Date: 1985Visit ID: [id number] Record Number: [id number]: 34YSex: FemaleRoom Location: ER ROOMSBed Location: ER [...] a blood thinner [GARCÍA DUVAL 01/23/20 07:15] [GARCÍA DUVAL 01/23/20 07:17]Past Medical/Surgical HistoryPast medical/surgical history reviewedFull [...] InterpretationDiagnosis: Right ear contusionDiagnosis level 1Disposition time: 08 Discharge condition: StableDischarge plan: Tylenol, indirect iceCare transferred [place] Radha Apple [place]Disposition: homePatient did not require critical care timePhysician signature: Asim JOHNSON signature date: 01/23/2020 08:14 Name Value Range Interpretation Code Description Data Victoria rce(s) Supporting Document(s) ID Date Data Source [id number] 02/01/2020 06:30:07 AM [facility] Status: FINAL (SIGNED)Full Name: Kade JONES Date: 1985Visit ID: [id number] Record Number: [id number]: 34YSex: FemaleRoom Location: ER ROOMSBed Location: ER 14Date of Service: 01/16/2020 07:13Creation Date: 01/16/2020 07:13Created By: [facility]ity [facility] Physician: OUT OF TOWN, OUT OF [...] flank pain, rule out kidney stone.OrdersStart Date;Description;Frequency;Ordered By;Glzsyu0901/16/2020;CT-ABD PELVIS NO CONTRAST (DRY) ;Once;ELDER, SIERRA;Today01/16/2020;ED INITIATE ABDOMINAL PAIN PATHWAY ;Once;ELDER, SIERRA;01/16/2020;IV - PERIPHERAL - INSERT & MAINTAIN ;Once;ELDER, SIERRA;01/16/2020;AMYLASE ;Once;ELDER, SIERRA;01/16/2020;CBC DIFF ;Once;ELDER, SIERRA;01/16/2020;COMPREHENSIVE PANEL ;Once;ELDER, SIERRA;T oday01/16/2020;LACTIC ACID ;Once;ELDER, SIERRA;01/16/2020;LIPASE ;Once;ELDER, SIERRA;01/16/2020; TEST - SERUM ;Once;ELDER, SIERRA;01/16/2020;PT/INR ;Once;ELDER, SIERRA;01/16/2020;PTT ;Once;SIERRA ELDER;Today01/16/2020;MORPHINE 4 MG/1 ML IVP ;ED - ONE TIME ONLY;SIERRA ELDER;Pzncfitt01/2/2020;ONDANSETRON HCL (PF) 4 MG/2 ML IVP ;ED - ONE TIME ONLY;SIERRA ELDER;Bztabaxz05/2/2020;SODIUM CHLORIDE 0.9% 1,000 ML IV ;ED - ONE TIME ONLY;SIERRA ELDER;Dejsehob45/2/2020;URINALYSIS ROUTINE ;Once;SONIA BAKER;Today01/16/2020;URINE MICROSCOPIC ;Once;SONIA BAKER;2019;CULTURE URINE ;Once;SONIA BAKER;01/17/2020;ED-NPO ;Meals;SIERRA ELDER;Future;CEFTRIAXONE ADDV 1GM 1 GM QBAG IPB ;ED - ONE TIME ONLY;SIERRA ELDER;;FENTANYL 50 MCG/1 ML IVP ;ED - ONE TIME ONLY;SIERRA ELDER;Laboratory resultsLab Results for the past 24 hoursOrder;Test;Value;Reference Range;Comments;Status;CollectionURINALYSIS ROUTINE;Dipstick Urine Color;RED;;;Final Result ;01/16/2020 08:40:32URINALYSIS ROUTINE;Dipstick Urine Turbidity;CLOUDY;;;Final Result ;01/16/2020 08:40:32URINALYSIS ROUTINE;Dipstick Specific Cum[place];1.020;(1.000-1.030);;Final Result ;01/16/2020 08:40:32URINALYSIS ROUTINE;Dipstick Urine pH;5.0;(5.0-8.0);;Final Result [...] Result ;01/16/2020 07:35:00COMPREHENSIVE PANEL;ALT(SGPT);39;(0-55 U/L);;Final Result ; 020 07:35:00COMPREHENSIVE PANEL;AST (SGOT);39 H;(5-37 U/L);;Final Result ;01/16/2020 [...] acute diverticulitis is seen END OF IMPRESSION [facility] submits [facility] results to [facility] and [facility] then provides those same results to [facility]. All results are available to [facility] and [facility] provider portal users. [facility] DICOM images are available to the [facility] provider portal users only. [facility] DICOM images are not available to the [facility] provider portal users. There is no current [facility] cross-[facility] functionality allowing images to be available through the [facility] to [facility] connectivity. Electronically signed By: Devonte Powers M.D. [...] rce(s) Supporting Document(s) ID Date Data Source [id number] 01/28/2020 01:03:15 PM EST [facility] Note Status: FINALFull Name: BILLY FIELD Date: 1985Visit ID: [id number] Record Number: [id number]: 34YSex: FemaleRoom Location: ER ROOMSBed Location: ER BD 11Date of Service: 01/20/2020 06:26Creation Date: 01/20/2020 [...] is not warranted at this time.OrdersStart Date;Description;Frequency;Ordered By;Boyoey3801/20/2020;ED INITIATE ABDOMINAL PAIN PATHWAY ;Once;JEROME PAIGE;Today01/20/2020;IV - PERIPHERAL - INSERT & MAINTAIN ;Once;JEROME PAIGE;01/20/2020; TEST - SERUM ;Once;JEROME PAIGE;01/20/2020;CBC DIFF ;Once;JEROME PAIGE;01/20/2020;COMPREHENSIVE PANEL ;Once;JEROME PAIGE;01/20/2020;LACTIC ACID ;Once;JEROME PAIGE;01/20/2020;PT/INR ;Once;JEROME PAIGE;01/20/2020;PTT ;Once;JEROME PAIGE;Today01/20/2020;KETOROLAC 30 MG/1 ML IVP ;ED - ONE TIME ONLY;JEROME PAIGE;Kgupnt3201/20/2020;ONDANSETRON HCL (PF) 4 MG/2 ML IVP ;ED - ONE TIME ONLY;JEROME PAIGE;Gxjgia6501/20/2020;SODIUM CHLORIDE 0.9% 1,000 ML IV ;ED - ONE TIME ONLY;JEROME PAIGE;Wjalbp7201/21/2020;ED-NPO ;Meals;JEROME PAIGE;Future;Point of Care URINE DIPSTICK ;Once;JEROME [...] care to daytime provider Care transferred to Radha Lee Patient did not require critical care timeActing as scribe in the presence of: Dianne Sales signature: KUMAR Hall signature date: 01/20/2020 06:52Physician signature: Michelle RICK signature date: 01/20/2020 23:42 Name Value Range Interpretation Code Description Data Victoria rce(s) Supporting Document(s) ID Date Data Source [id number] 01/30/2020 10:12:00 AM EST [facility] CULTURE OBSERVATIONS 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 Name Value Range Interpretation Code Description Data [facility] rce(s) Supporting Document(s) ID Date Data Source [id number] 01/28/2020 10:48:00 AM EST [facility] Name Value Range Interpretation Code Description Data [facility] Supporting Document(s) SODIUM 137 mmol/L 136-145 [facility] POTASSIUM 4.3 mmol/L 3.5-5.2 [facility] CHLORIDE 104 mmol/L 100-108 [facility] CO2 24 mmol/L 21-32 [facility] GLUCOSE 93 mg/dL 70-100 [facility] BUN 16 mg/dL 7-21 [facility] CREATININE 0.7 mg/dL 0.6-1.3 [facility] Normal Kidney Function or Mild Disease - GFR >OR= 60Chronic Kidney Disease - GFR 15-59Renal Failure - GFR < 15GFR not calculated on patients under 18 years of age. CALCIUM 8.7 mg/dL 8.5-10.8 [facility] GFR >60 [facility] T BILI 0.2 mg/dL 0.0-1.2 [facility] T PROTEIN 7.8 gm/dL 6.4-8.2 [facility] ALBUMIN 4.2 gm/dL 3.4-4.8 [facility] ALK PHOS 115 U/L 40-150 [facility] ALT (SGPT) 43 U/L 0-55 [facility] AST (SGOT) 33 U/L 5-37 [facility] ID Date Data Source [id number] 01/28/2020 10:42:00 AM EST [facility] Name Value Range Interpretation Code Description Data Victoria rce(s) Supporting Document(s) URINE MICRO [facility] WBC 0-2 /HPF 0-2 [facility] RBC NONE SEEN /HPF NONE SEEN [facility] BACTERIA FEW /HPF NONE SEEN ! [facility] EPITHELIAL CELLS RARE /HPF NONE SEEN ! [facility] ID Date Data Source [id number] 01/28/2020 10:36:00 AM EST [facility] Name Value Range Interpretation Code Description Data Victoria rce(s) Supporting Document(s) COLOR YELLOW [facility] APPEARANCE CLEAR CLEAR [facility] SPECIFIC GRAVITY 1.020 1.000-1.030 [facility] ital pH 6.0 5.0-8.0 [facility] LEUKOCYTES TRACE NEGATIVE ! [facility] NITRATE NEGATIVE NEGATIVE [facility] PROTEIN NEGATIVE mg/dL NEGATIVE [facility] GLUCOSE NORMAL mg/dL NORMAL [facility] KETONE NEGATIVE mg/dL NEGATIVE [facility] UROBILINOGEN NORMAL mg/dL NORMAL [facility] BILIRUBIN NEGATIVE mg/dL NEGATIVE [facility] HEMOGLOBIN TRACE NEGATIVE ! [facility] ID Date Data Source [id number] 01/28/2020 10:24:00 AM EST [facility] Name Value Range Interpretation Code Description Data Victoria rce(s) Supporting Document(s) WBC 7.5 K/uL 4.8-10.8 [facility] RBC 4.40 M/uL 4.20-5.40 [facility] HEMOGLOBIN 12.7 gm/dL 12.0-16.0 [facility] HEMATOCRIT 38.0 % 36.0-48.0 [facility] MCV 86.4 fL 80.0-100.0 [facility] MCHC 33.4 % 30.0-36.5 [facility] MCH 28.9 pg 27.0-34.0 [facility] RDW 12.9 % 11.0-15.0 [facility] PLATELET 307 K/uL 130-450 [facility] MPV 6.7 fL 6.0-12.0 [facility] NE% 65 % 37-80 [facility] LY% 25 % 10-50 [facility] MO% 8 % 0-12 [facility] Eosinophils [#/volume] in Blood by Automated count 2 % <=8 [facility] BA% 0 % <=3 [facility] NE# 4.9 K/uL 1.8-8.6 [facility] LYMPH# 1.9 K/uL 0.5-5.0 [facility] MONO# 0.6 K/uL 0.0-1.3 [facility] EOS# 0.1 K/uL 0.0-0.9 [facility] BASO# 0.0 K/ul 0.0-0.3 [facility] ID Date Data Source [id number] 01/20/2020 11:27:04 AM EST [facility] status: FINAL (SIGNED)Full Name: Marybeth JONES of : 1985Visit ID: [id number] Record Number: [id number]: 34YSex: FemaleRoom Location: ER ROOMSBed Location: ER 11Date of Service: 01/20/2020 07:15Creation Date: 01/20/2020 07:15Created by: Marcia LEE Physician: NONE, NONEProgress comments 1: Patient was [...] require critical care timePhysician signature: MYLES LEE [facility] Centersicirussell signature date: 01/20/2020 11:26 Name Value Range Interpretation Code Description Data Victoria rce(s) Supporting Document(s) ID Date Data Source [id number] 01/20/2020 10:24:33 AM [facility] 01/20/2020 10:08 AMPELVIC ULTRASOUND WITH TRANSVAGINALCLINICAL INFORMATION: [...] further evaluationtransvaginal ultrasound would be helpful.END OF IMPRESSIONC[facility] and[facility] then [facility] those [facility]. Allresults are available to [facility] and [facility] provider portalusers. [facility] DICOM images are available to the[facility] provider portal users only. [facility] DICOMimages are not available to the [facility] provider portal users. 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 [facility] RBC >100 /HPF NONE SEEN ! [facility] [employer] has definedMicroscopic Hematuria as 3 or more RBC per highpowered field from a single positive urinalysis withmicroscopy. BACTERIA FEW /HPF NONE SEEN ! [facility] EPITHELIAL CELLS MANY /HPF NONE SEEN ! [facility] ID Date Data Source [id number] 01/20/2020 07:52:00 AM EST [facility] Name Value Range Interpretation Code Description Data Victoria rce(s) Supporting Document(s) COLOR LUIS M [facility] APPEARANCE CLOUDY CLEAR ! [facility] SPECIFIC GRAVITY 1.020 1.000-1.030 [facility] ital pH 5.0 5.0-8.0 [facility] LEUKOCYTES 2+ NEGATIVE ! [facility] NITRATE NEGATIVE NEGATIVE [facility] PROTEIN 30 [ 1+] mg/dL NEGATIVE ! [facility] GLUCOSE NORMAL mg/dL NORMAL [facility] KETONE NEGATIVE mg/dL NEGATIVE [facility] UROBILINOGEN NORMAL mg/dL NORMAL [facility] BILIRUBIN NEGATIVE mg/dL NEGATIVE [facility] HEMOGLOBIN 3+ NEGATIVE ! [facility] ID Date Data Source [id number] 01/20/2020 10:22:39 AM EST [facility] left lower back and flank pain01/20/2020 10:08 AMRENAL ULTRASOUNDCLINICAL INFORMATION: left lower back and flank pain -- PAIN, UNSPECIFIEDCOMPARISON: None.TECHNIQUE: Sonographic evaluation of the 01/2020 [facility]FINDINGS:Right Kidney: Measures 9.5 cm.Parenchyma: Normal homogeneous echotexture.Hydronephrosis: None.Calculi: None.Focal Lesions: None.Left Kidney: Measures 9.9 cm.Parenchyma: Normal homogeneous echotexture.Hydronephrosis: None.Calculi: None.Focal Lesions: None.Aorta: Non-aneurysmal.Inferior Vena Cava: Patent.Bladder: No discrete bladder wall thickening.Jets: Bilateral ureteral jets are documented.Prevoid Volume: 55 mLPostvoid Residual Volume: Not measured.Miscellaneous: Fatty liverIMPRESSION:Normal renal ultrasound.[facility] submits Radiology results to [facility] and[facility] then provides those [facility] to [facility]. Allresults are available to [facility] and [facility] provider portalusers. [facility] DICOM images are available to the[facility] provider portal users only. [facility] DICOMimages are not available to the [facility] provider portal users. There isno current [facility] cross-[facility] functionality allowing images to be available [facility] connectivity.Electronically signed By: Desmond Calhoun M.D.Read By: DESMOND CALHOUNDate: 01/20/2020 10:19 Name Value Range Interpretation Code Description Data Victoria rce(s) Supporting Document(s) ID Date Data Source [id number] 01/20/2020 07:02:00 AM EST [facility] Name Value Range Interpretation Code Description Data Victoria rce(s) Supporting Document(s) LACTIC ACID 1.4 mmol/L 0.5-2.2 [facility] ID Date Data Source [id number] 01/20/2020 07:04:00 AM EST [facility] CMP Name Value Range Interpretation Code Description Data Victoria rce(s) Supporting Document(s) SODIUM 138 mmol/L 136-145 [facility] POTASSIUM 4.4 mmol/L 3.5-5.2 [facility] CHLORIDE 105 mmol/L 100-108 [facility] CO2 23 mmol/L 21-32 [facility] GLUCOSE 101 mg/dL 70-100 H [facility] BUN 13 mg/dL 7-21 [facility] CREATININE 0.7 mg/dL 0.6-1.3 [facility] Normal Kidney Function or Mild Disease - GFR >OR= 60Chronic Kidney Disease - GFR 15-59Renal Failure - GFR < 15GFR not calculated on patients under 18 years of age. CALCIUM 8.1 mg/dL 8.5-10.8 L [facility] GFR >60 [facility] T BILI 0.5 mg/dL 0.0-1.2 [facility] T PROTEIN 7.8 gm/dL 6.4-8.2 [facility] ALBUMIN 4.0 gm/dL 3.4-4.8 [facility] ALK PHOS 112 U/L 40-150 [facility] ALT (SGPT) 44 U/L 0-55 [facility] AST (SGOT) 46 U/L 5-37 H [facility] ID Date Data Source [id number] 01/20/2020 06:59:00 [facility] Name Value [facility] Interpretation Code Description Data Victoria rce(s) Supporting Document(s) PTT 26.7 sec 25.6-36.4 [facility] ID Date Data Source [id number] 01/20/2020 06:59:00 AM EST [facility] Name Value Range Interpretation Code Description Data Victoria rce(s) Supporting Document(s) PROTIME 11.1 sec 9.4-12.4 [facility] INR 1.0 [facility] INR INTERPERTATION 2.0 -3.0 THERAPEUTIC MONITORING2.5-3.5 HEART VALVE REPLACEMENT ID Date Data Source [id number] 01/20/2020 06:56:00 AM EST [facility] Name Value Range Interpretation Code Description Data Victoria rce(s) Supporting Document(s) SERUM TEST NEGATIVE [facility] spital PREGS METHODOLOGY [facility] denise ID Date Data Source [id number] 01/20/2020 06:49:00 AM [facility] WITH DIFF Name Value Range Interpretation Code Description Data Victoria rce(s) Supporting Document(s) WBC 6.3 K/uL 4.8-10.8 [facility] RBC 4.10 M/uL 4.20-5.40 L [facility] HEMOGLOBIN 12.3 gm/dL 12.0-16.0 [facility] HEMATOCRIT 35.9 % 36.0-48.0 L [facility] MCV 87.5 fL 80.0-100.0 [facility] MCHC 34.4 % 30.0-36.5 [facility] MCH 30.1 pg 27.0-34.0 [facility] RDW 13.2 % 11.0-15.0 [facility] PLATELET 290 K/uL 130-450 [facility] MPV 6.4 fL 6.0-12.0 [facility] NE% 58 % 37-80 [facility] LY% 31 % 10-50 [facility] MO% 8 % 0-12 [facility] Eosinophils [#/volume] in Blood by Automated count 2 % <=8 [facility] BA% 1 % <=3 [facility] NE# 3.7 K/uL 1.8-8.6 [facility] LYMPH# 2.0 K/uL 0.5-5.0 [facility] MONO# 0.5 K/uL 0.0-1.3 [facility] EOS# 0.2 K/uL 0.0-0.9 [facility] BASO# 0.0 K/ul 0.0-0.3 [facility] ID Date Data Source [id number] 01/18/2020 06:51:04 PM EST [facility] Note Status: FINAL (SIGNED)Full Name: Kade JONES Date: 1985Visit ID: [id number] Record Number: [id number]: 34YSex: FemaleRoom Location: ER ROOMSBed Location: ER ORTHODate of Service: 01/18/2020 14:56Creation Date: 01/18/2020 14:56Created By: KUMAR WEBSTERPrimary Care Physician: NONE, NONETime patient first seen: 0802 Informant: PatientHPI Chief Complaint: Left flank painHPI [...] and IV hydration will be reassessed.OrdersStart Date;Description;Frequency;Ordered By;[id number]/18/2020;RENAL/BLADDER U/S LIMITED ;Once;OMAYRA JORGE;Today01/18/2020;CBC DIFF ;Once;OMAYRA JORGE;Today01/18/2020;COMPREHENSIVE PANEL ;Once;OMAYRA JORGE;Today01/18/2020; TEST - SERUM ;Once;OMAYRA JORGE;Today01/18/2020;FENTANYL 50 MCG/1 ML IVP ;ED - ONE TIME ONLY;OMAYRA JORGE;Swvuwmph02/4/2020;SODIUM CHLORIDE 0.9% 1,000 ML IV ;ED - ONE TIME ONLY;OMAYRA JORGE;Ujiwagto79/4/2020;SODIUM CHLORIDE 0.9% 500 ML IV ;ED - ONE TIME ONLY;OMAYRA JORGE;Kfkkxioo15/4/2020;MEPERIDINE (PF) 50 MG/1 ML IVP ;ED - ONE TIME ONLY;OMAYRA JORGE;Yuiprdva98/4/2020;URINALYSIS ROUTINE ;Once;OMAYRA JORGE;Today;MEPERIDINE (PF) 50 MG IVP [...] significant findings are seen. END OF IMPRESSION [facility] submits Radiology results to [facility] and [facility] then provides those same results to [facility]. All results are available to [facility] and [facility] provider portal users. [facility] DICOM images are available to the [facility] provider portal users only. [facility] DICOM images are not available to the [facility] provider portal users. There is no current [facility] functio nality allowing images to be available through the [facility] to [facility] connectivity. Electronically signed By: Devonte Powers M.D. 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 [facility] RBC >100 /HPF NONE SEEN ! [facility] [employer] has definedMicroscopic Hematuria as 3 or more RBC per highpowered field from a single positive urinalysis withmicroscopy. BACTERIA MODERATE /HPF NONE SEEN ! [facility] EPITHELIAL CELLS FEW /HPF NONE SEEN ! [facility] ID Date Data Source [id number] 01/18/2020 06:01:00 PM EST [facility] Name Value Range Interpretation Code Description Data Victoria rce(s) Supporting Document(s) COLOR RED [facility] APPEARANCE CLOUDY CLEAR ! [facility] SPECIFIC GRAVITY 1.020 1.000-1.030 [facility] ital pH 5.0 5.0-8.0 [facility] LEUKOCYTES 2+ NEGATIVE ! [facility] NITRATE POSITIVE NEGATIVE ! [facility] PROTEIN 100 [ 2+] mg/dL NEGATIVE ! [facility] l GLUCOSE NORMAL mg/dL NORMAL [facility] KETONE TRACE mg/dL NEGATIVE ! [facility] UROBILINOGEN NORMAL mg/dL NORMAL [facility] l BILIRUBIN NEGATIVE mg/dL NEGATIVE [facility] HEMOGLOBIN 3+ NEGATIVE ! [facility] ID Date Data Source [id number] 01/18/2020 04:01:00 PM EST [facility] Name Value Range Interpretation Code Description Data Victoria rce(s) Supporting Document(s) SERUM TEST NEGATIVE [facility] spital PREGS METHODOLOGY [facility] ID Date Data Source [id number] 01/18/2020 03:56:00 PM EST [facility] Name Value Range Interpretation Code Description Data Victoria rce(s) Supporting Document(s) WBC 7.2 K/uL 4.8-10.8 [facility] RBC 4.01 M/uL 4.20-5.40 L [facility] HEMOGLOBIN 11.5 gm/dL 12.0-16.0 L [facility] HEMATOCRIT 34.7 % 36.0-48.0 L [facility] MCV 86.3 fL 80.0-100.0 [facility] MCHC 33.2 % 30.0-36.5 [facility] MCH 28.7 pg 27.0-34.0 [facility] RDW 12.4 % 11.0-15.0 [facility] PLATELET 307 K/uL 130-450 [facility] MPV 6.7 fL 6.0-12.0 [facility] NE% 62 % 37-80 [facility] LY% 30 % 10-50 [facility] MO% 6 % 0-12 [facility] Eosinophils [#/volume] in Blood by Automated count 2 % <=8 [facility] BA% 0 % <=3 [facility] NE# 4.5 K/uL 1.8-8.6 [facility] LYMPH# 2.1 K/uL 0.5-5.0 [facility] MONO# 0.5 K/uL 0.0-1.3 [facility] EOS# 0.1 K/uL 0.0-0.9 [facility] BASO# 0.0 K/ul 0.0-0.3 [facility] ID Date Data Source [id number] 01/18/2020 04:08:[facility] Interpretation Code Description Data Victoria rce(s) Supporting Document(s) SODIUM 140 mmol/L 136-145 [facility] POTASSIUM 4.0 mmol/L 3.5-5.2 [facility] CHLORIDE 107 mmol/L 100-108 [facility] CO2 24 mmol/L 21-32 [facility] GLUCOSE 84 mg/dL 70-100 [facility] BUN 14 mg/dL 7-21 [facility] CREATININE 0.7 mg/dL 0.6-1.3 [facility] Normal Kidney Function or Mild Disease - GFR >OR= 60Chronic Kidney Disease - GFR 15-59Renal Failure - GFR < 15GFR not calculated on patients under 18 years of age. CALCIUM 8.2 mg/dL 8.5-10.8 L [facility] GFR >60 [facility] T BILI 0.3 mg/dL 0.0-1.2 [facility] T PROTEIN 7.2 gm/dL 6.4-8.2 [facility] ALBUMIN 3.9 gm/dL 3.4-4.8 [facility] ALK PHOS 106 U/L 40-150 [facility] ALT (SGPT) 46 U/L 0-55 [facility] AST (SGOT) 35 U/L 5-37 [facility] ID Date Data Source [id number] 01/18/2020 06:21:03 PM EST [facility] 01/18/2020 5:43 PMRENAL ULTRASOUNDCLINICA L INFORMATION: -- Left flank painCOMPARISON: None.TECHNIQUE: Sonographic evaluation of the kidneys and bladder was performedusing grayscale ultrasound.FINDINGS:These are normal in size and echo architecture with the right kidney rfzodqgtg59.4 cm the left kidney also measuring 10.4 cm maximal dimensions. Nohydronephrosis nor nephrolithiasis is seen. The bladder is normal. Bothureteral jets are seen in the bladder and to completely upon voiding.IMPRESSION:No acute nor significant findings are seen.[facility] and[facility] then provides those same results to [facility]. Allresults are available to [facility] and [facility] provider portalusers. [facility] DICOM images are available to the[facility] provider portal users only. [facility] DICOMimages are not available to the [facility] provider portal users. 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 [facility] RBC >100 /HPF NONE SEEN ! [facility] [employer] has definedMicroscopic Hematuria as 3 or more RBC per highpowered field from a single positive urinalysis withmicroscopy. BACTERIA MODERATE /HPF NONE SEEN ! [facility] EPITHELIAL CELLS MODERATE /HPF NONE SEEN ! [facility] spital ID Date Data Source [id number] 01/16/2020 08:46:00 AM EST [facility] Name Value Range Interpretation Code Description Data Victoria rce(s) Supporting Document(s) COLOR RED [facility] APPEARANCE CLOUDY CLEAR ! [facility] SPECIFIC GRAVITY 1.020 1.000-1.030 [facility] ital pH 5.0 5.0-8.0 [facility] LEUKOCYTES 2+ NEGATIVE ! [facility] NITRATE NEGATIVE NEGATIVE [facility] PROTEIN 100 [ 2+] mg/dL NEGATIVE ! [facility] l GLUCOSE NORMAL mg/dL NORMAL [facility] KETONE TRACE mg/dL NEGATIVE ! [facility] UROBILINOGEN NORMAL mg/dL NORMAL [facility] BILIRUBIN NEGATIVE mg/dL NEGATIVE [facility] HEMOGLOBIN 3+ NEGATIVE ! [facility] ID Date Data Source [id number] 01/16/2020 08:10:00 AM EST [facility] Name Value Range Interpretation Code Description Data Victoria rce(s) Supporting Document(s) AMYLASE 43 U/L 25-125 [facility] ID Date Data Source [id number] 01/16/2020 08:10:00 AM EST [facility] CMP Name Value Range Interpretation Code Description Data Victoria rce(s) Supporting Document(s) SODIUM 140 mmol/L 136-145 [facility] POTASSIUM 4.3 mmol/L 3.5-5.2 [facility] CHLORIDE 106 mmol/L 100-108 [facility] CO2 24 mmol/L 21-32 [facility] GLUCOSE 91 mg/dL 70-100 [facility] BUN 11 mg/dL 7-21 [facility] CREATININE 0.8 mg/dL 0.6-1.3 [facility] Normal Kidney Function or Mild Disease - GFR >OR= 60Chronic Kidney Disease - GFR 15-59Renal Failure - GFR < 15GFR not calculated on patients under 18 years of age. CALCIUM 8.1 mg/dL 8.5-10.8 L [facility] GFR >60 [facility] T BILI 0.3 mg/dL 0.0-1.2 [facility] T PROTEIN 7.2 gm/dL 6.4-8.2 [facility] ALBUMIN 3.8 gm/dL 3.4-4.8 [facility] ALK PHOS 108 U/L 40-150 [facility] ALT (SGPT) 39 U/L 0-55 [facility] AST (SGOT) 39 U/L 5-37 H [facility] ID Date Data Source [id number] 01/16/2020 08:10:00 AM EST [facility] Name Value Range Interpretation Code Description Data Victoria rce(s) Supporting Document(s) LIPASE 24 U/L 8-78 [facility] ID Date Data Source [id number] 01/16/2020 08:08:00 AM EST [facility] Name Value Range Interpretation Code Description Data [facility] rce(s) Supporting Document(s) SER[facility] TEST NEGATIVE [facility] ID Date Data Source [id number] 01/16/2020 08:06:00 AM EST [facility] Name Value Range Interpretation Code Description Data Victoria rce(s) Supporting Document(s) LACTIC ACID 1.1 mmol/L 0.5-2.2 [facility] ID Date Data Source [id number] 01/16/2020 08:06:00 AM EST [facility] Name Value Range Interpretation Code Description Data Victoria rce(s) Supporting Document(s) PTT 26.4 sec 25.6-36.4 [facility] ID Date Data Source [id number] 01/16/2020 08:06:00 AM EST [facility] Name Value Range Interpretation Code Description Data [facility] rce(s) Supporting Document(s) PROTIME 9.8 sec 9.4-12.4 [facility] INR 0.9 [facility] INR INTERPERTATION 2.0 -3.0 THERAPEUTIC MONITORING2.5-3.5 HEART VALVE REPLACEMENT ID Date Data Source [id number] 01/16/2020 07:54:00 AM EST [facility] al CBC WITH DIFF Name Value Range Interpretation Code Description Data Victoria rce(s) Supporting Document(s) WBC 6.6 K/uL 4.8-10.8 [facility] RBC 4.13 M/uL 4.20-5.40 L [facility] HEMOGLOBIN 12.2 gm/dL 12.0-16.0 [facility] HEMATOCRIT 35.8 % 36.0-48.0 L [facility] MCV 86.6 fL 80.0-100.0 [facility] MCHC 33.9 % 30.0-36.5 [facility] MCH 29.4 pg 27.0-34.0 [facility] RDW 13.1 % 11.0-15.0 [facility] PLATELET 313 K/uL 130-450 [facility] MPV 6.5 fL 6.0-12.0 [facility] NE% 68 % 37-80 [facility] LY% 25 % 10-50 [facility] MO% 5 % 0-12 [facility] Eosinophils [#/volume] in Blood by Automated count 1 % <=8 [facility] BA% 1 % <=3 [facility] NE# 4.5 K/uL 1.8-8.6 [facility] LYMPH# 1.6 K/uL 0.5-5.0 [facility] MONO# 0.3 K/uL 0.0-1.3 [facility] EOS# 0.1 K/uL 0.0-0.9 [facility] BASO# 0.0 K/ul 0.0-0.3 [facility] ID Date Data Source [id number] 01/16/2020 08:18:12 AM EST [facility] ABD PELVIS W/O103/17/2019 7:57 [...] colon. No definiteacute diverticulitis is seenEND OF IMPRESSIONC[facility] and[facility] then provides those same [facility] to [facility]. Allresults are available to [facility] and [facility] provider portalusers. [facility] DICOM images are available to the[facility] provider portal users only. [facility] DICOMimages are not available to the [facility] provider portal users. There isno current [facility] cross-[facility] functionality allowing images to be available throughthe [facility] to [facility] connectivity.Electronically signed By: Devonte Powers M.D.Read By: DEVONTE CONSTANTINOIDate: 01/16/2020 08:14 Name Value Range Interpretation Code Description Data Victoria rce(s) Supporting Document(s) ID Date Data Source [id number] 01/15/2020 12:48:05 PM EST [facility]PATIE NT INFORMATIONPatient MRN Name Date of Age Gend*PT [id number] Taniya Field 1985 34 years F EDPT Location Admission Date/Time Visit ID Attending [id number] 01/15/20 0817 --- --- EPI ID CSN Admitting Provider [id number] ---Provider in Triage NotesNo notes on fileHistory [...] vitals reviewed.ED CourseED Course as of Jan 14 103un Jan [id number] Patient eloped from the ED prior to completion of her work up. [MM]ED Course User Index[MM] Jaclyn OrozcoMDMNumber of Diagnoses or Management OptionsFlank pain:Diagnosis management [...] chart and documentation,care appears appropriate per documentation.Awa Magana DO01/15/20 1248 Name Value Range Interpretation Code Description Data [facility] rce(s) Supporting Document(s) ID Date Data Source [id number] 01/15/2020 10:40:39 AM EST [address] [address]Hdbdlrh Name: TANIYA BENEDICTB: 1985Sex: FOrdering Provider: АНДРЕЙ MENDEZAuthojerry Prov: АНДРЕЙ MENDEZRefraad Provider: Procedure Performed: US RENAL KIDNEY BILATERALExam Date: 01/15/2020 10:07MRN: [id number] Number: [id number] Class: EmergencyAccount #: [id number] for Exam: L flank painTechnique: Real time sonographic images were obtained.Comparison: NoneFindings: Right kidney 9.3 left kidney 10.7 cm in length. Normal cortical thickness and echotexture. No hydronephrosis. No focal lesions. Urinary bladder void of urine on patient voided prior study.IMPRESSION: Kidneys within normal limits.Report electronically signed by: CAMACHO RAO On 01/15/2020 10:40 AMWorkstation ID: [id number] Name Value Range Interpretation Code Description Data Victoria rce(s) Supporting Document(s) ID Date Data Source [id number] 01/15/2020 09:45:30 AM EST [facility] Name Value Range Interpretation Code Description Data Victoria rce(s) Supporting Document(s) POC URINE HCG (NEG) [facility] PERFORMED BY [facility] ID Date Data Source [id number] 01/15/2020 10:20:03 AM EST [facility] Name Value Range Interpretation Code Description Data Victoria rce(s) Supporting Document(s) COLOR [facility] APPEARANCE [facility] SPEC GRAV URINE 1.019 (1.003-1.030) [facility] PH URINE 5.5 (5.0-7.5) [facility] LEUK ESTERASE 1+ (NEG) A [facility] NITRITE URINE (NEG) [facility] PROTEIN URINE (NEG) [facility] GLUCOSE URINE (NEG) [facility] KETONE URINE (NEG) [facility] UROBILINOGEN 0.2 mg/dL (0-1.0) [facility] BILIRUBIN URINE (NEG) [facility] BLOOD/HGB URINE (NEG) [facility] EPITHELIAL CELLS 3+ [HPF] (NEG) A [facility] HYALINE CASTS 1.2 [LPF] (0-5) [facility] BACTERIA 3+ [HPF] (NEG) A [facility] URINE WBC 6.0 [HPF] (0-8) [facility] URINE RBC 3.2 [HPF] (0-3) H [facility] ID Date Data Source [id number] 01/15/2020 10:09:22 AM EST [facility] Name Value Range Interpretation Code Description Data Victoria rce(s) Supporting Document(s) URN CULTURE HOLD [facility] FOR ADD ON CULTURE ID Date Data Source [id number] 01/15/2020 11:35:45 AM EST [facility] Name Value Range Interpretation Code Description Data Victoria rce(s) Supporting Document(s) PT 9.8 s (9.2-11.9) [facility] INR 0.93 [facility] SUGGESTED THERAPEUTIC RANGES USING INR F ORSTABILIZED ANTICOAGULATED PATIENTS:STANDARD DOSE THERAPY INR 2.0-3.0 DVT, PE, PREVENT DVT OR EMBOLISMHIGH DOSE THERAPY INR 2.5-3.5 PREVENT EMBOLISM FROM MECHANICAL HEART VALVE ID Date Data Source [id number] 01/15/2020 11:35:45 AM EST [facility] Name Value Range Interpretation Code Description Data Victoria rce(s) Supporting Document(s) APTT 23.6 s (22.0-34.3) [facility] ID Date Data Source [id number] 01/15/2020 10:33:20 AM EST [facility] Name Value Range Interpretation Code Description Data Victoria rce(s) Supporting Document(s) SODIUM 140 mmol/L (136-145) [facility] POTASSIUM 3.7 mmol/L (3.6-5.2) [facility] CHLORIDE 109 mmol/L (100-108) H [facility] CO2 27 mmol/L (22-31) [facility] ANION GAP 4 mmol/L (7-16) L [facility] UREA NITROGEN 11 mg/dL (7-24) [facility] CREATININE 0.77 mg/dL (0.60-1.00) [facility] BUN/CREAT RATIO 14.3 RATIO (10.0-20.0) [facility] GLUCOSE 97 mg/dL (70-99) [facility] CALCIUM 8.5 mg/dL (8.4-10.2) [facility] TOTAL PROTEIN 7.2 g/dL (6.4-8.2) [facility] ALBUMIN 3.2 g/dL (3.5-4.6) L [facility] GLOBULIN 4.0 g/dL (2.7-4.3) [facility] ALB/GLOB RATIO 0.8 RATIO [facility] ALKALINE PHOSPHATASE 111 U/L (45-117) [facility] BILIRUBIN,TOTAL 0.3 mg/dL (0.0-1.0) [facility] PLEASE NOTE:Total bilirubin results may be falselyelevated in patients taking Eltrombopag. AST (SGOT) 39 U/L (11-39) [facility] ALT (SGPT) 49 U/L (12-78) [facility] GFR >60 ml/min/1.73m2 (>59) [facility] GFR ( AMER) >60 ml/min/1.73m2 (>59) [facility] GFR INTERPRETATION [facility] --NORMAL KIDNEY FUNCTION OR MILD DISEASE - GFR >OR= 60CHRONIC KIDNEY DISEASE - GFR 15 - 59RENAL FAILURE - GFR <15 Est. GFR calculation based on the MDRDstudy equation, which assumes a steadystate for creatinine. Est. GFR should notbe used for medication dosing. ID Date Data Source [id number] 01/15/2020 10:30:34 AM EST [facility] Name Value Range Interpretation Code Description Data [facility] rce(s) Supporting Document(s) LIPASE 83 U/L (65-230) [facility] ID Date Data Source [id number] 01/15/2020 10:14:33 AM EST [facility] Name Value Range Interpretation Code Description Data [facility] rce(s) Supporting Document(s) WBC 6.5 10*3/uL (4.1-11.0) [facility] RBC 4.24 10*6/uL (4.00-5.40) [facility] HGB 12.0 g/dL (12.0-16.0) [facility] HCT 36.3 % (36.0-47.0) [facility] MCV 85.5 fL (80.0-95.0) [facility] MCH 28.2 pg (27.0-32.0) [facility] MCHC 33.0 g/dL (32.0-36.0) [facility] RDW 13.9 % (10.5-14.5) [facility] PLT 342 10*3/uL (150-450) [facility] MPV 7.6 fL (7.1-10.7) [facility] [facility] NEUT % 70.1 % (35.0-75.0) [facility] LYMPH % 22.0 % (16.0-52.0) [facility] MONO % 5.9 % (0.0-8.0) [facility] EOS % 1.7 % (0.0-5.0) [facility] BASO % 0.3 % (0.0-4.0) [facility] NEUT # 4.5 10*3/uL (1.8-7.7) [facility] LYMPH # 1.4 10*3/uL (1.2-4.8) [facility] MONO # 0.4 10*3/uL (0.0-0.8) [facility] Eosinophils [#/volume] in Blood by Automated count 0.1 10*3/uL (0.0-0 .5) [facility] BASO # 0.0 10*3/uL (0.0-0.2) [facility] ID Date Data Source [id number] 01/05/2020 08:37:48 AM EDT [facility] Name Value Range Interpretation Code Description Data Victoria rce(s) Supporting Document(s) COLOR [facility] APPEARANCE [facility] SPEC GRAV URINE 1.013 (1.003-1.030) [facility] PH URINE 5.5 (5.0-7.5) [facility] LEUK ESTERASE (NEG) [facility] CRITERIA FOR CULTURE NOT MET.CULTURE CAN BE ADDED WITHIN 36 HOURS OFCOLLECTION. NITRITE URINE (NEG) [facility] PROTEIN URINE (NEG) [facility] GLUCOSE URINE (NEG) [facility] KETONE URINE (NEG) [facility] UROBILINOGEN 0.2 mg/dL (0-1.0) [facility] BILIRUBIN URINE (NEG) [facility] BLOOD/HGB URINE (NEG) [facility] ID Date Data Source [id number] 01/05/2020 08:44:25 AM EDT [facility] Name Value Range Interpretation Code Description Data Victoria rce(s) Supporting Document(s) SODIUM 139 mmol/L (136-145) [facility] POTASSIUM 4.4 mmol/L (3.6-5.2) [facility] CHLORIDE 108 mmol/L (100-108) [facility] CO2 25 mmol/L (22-31) [facility] ANION GAP 6 mmol/L (7-16) L [facility] UREA NITROGEN 18 mg/dL (7-24) [facility] CREATININE 0.88 mg/dL (0.60-1.00) [facility] BUN/CREAT RATIO 20.5 RATIO (10.0-20.0) H [facility] GLUCOSE 95 mg/dL (70-99) [facility] CALCIUM 8.4 mg/dL (8.4-10.2) [facility] GFR >60 ml/min/1.73m2 (>59) [facility] GFR ( AMER) >60 ml/min/1.73m2 (>59) [facility] GFR INTERPRETATION [facility] --NORMAL KIDNEY FUNCTION OR MILD DISEASE - GFR >OR= 60CHRONIC KIDNEY DISEASE - GFR 15 - 59RENAL FAILURE - GFR <15 Est. GFR calculation based on the MDRDstudy equation, which assumes a steadystate for creatinine. Est. GFR should notbe used for medication dosing. ID Date Data Source [id number] 01/05/2020 08:41:44 AM EDT [facility] Name Value Range Interpretation Code Description Data Victoria rce(s) Supporting Document(s) HCG, QUAL. SERUM (NEG) [facility] ID Date Data Source [id number] 01/05/2020 08:17:05 AM EDT [facility] Name Value Range Interpretation Code Description Data Victoria rce(s) Supporting Document(s) WBC 6.8 10*3/uL (4.1-11.0) [facility] RBC 4.28 10*6/uL (4.00-5.40) [facility] HGB 12.1 g/dL (12.0-16.0) [facility] HCT 36.5 % (36.0-47.0) [facility] MCV 85.2 fL (80.0-95.0) [facility] MCH 28.2 pg (27.0-32.0) [facility] MCHC 33.1 g/dL (32.0-36.0) [facility] RDW 13.7 % (10.5-14.5) [facility] PLT 339 10*3/uL (150-450) [facility] MPV 6.7 fL (7.1-10.7) L [facility] NEUT % 64.5 % (35.0-75.0) [facility] LYMPH % 25.6 % (16.0-52.0) [facility] MONO % 7.8 % (0.0-8.0) [facility] EOS % 1.8 % (0.0-5.0) [facility] BASO % 0.3 % (0.0-4.0) [facility] NEUT # 4.4 10*3/uL (1.8-7.7) [facility] LYMPH # 1.7 10*3/uL (1.2-4.8) [facility] MONO # 0.5 10*3/uL (0.0-0.8) [facility] Eosinophils [#/volume] in Blood by Automated count 0.1 10*3/uL (0.0-0 .5) [facility] BASO # 0.0 10*3/uL (0.0-0.2) [facility] ID Date Data Source [id number] 12/26/2019 02:25:31 PM EDT [facility] [place] NT INFORMATIONPatient MRN Name Date of Age Gend*PT [id number] Taniya Field 1985 34 years F EDPT Location Admission Date/Time Visit ID Attending [id number] 12/26/19 0845 --- --- EPI ID CSN Admitting Provider [id number] ---Attestation signed by Kathy Cox MD at 12/26/2019 2:25 PMED Attestations:Attestation Type: Mid-Level: SUPERVISED APC: Based on [...] to being seen because she had to warp picker her nephew. She had a normalrenal sonogram [...] Range Color, UA YELLOW Appearance CLOUDY Specific [place], UA 1.013 1.003 - 1.030 pH, Urine [...] NEGATIVECt Abdomen Pelvis Without Iv ContrastResult Date: 12/26/2019[place] [address] Patient Name: JHONY FIELD : 1985 Sex: [...] DAMON THAKKAR On 12/26/201910:11 AM Workstation ID: [id number] of Diagnoses or Management OptionsDiagnosis management comments: Patient is a 34-year-old female who [facility] ED for evaluation of left flank [...] rce(s) Supporting Document(s) ID Date Data Source [id number] 12/26/2019 10:11:00 AM EDT [address] [address]Dqhiohf Name: TANIYA MARTINEZPENELOPEB: 1985Sex: FOrdering Provider: RIGO Johnson Prov: RIGO Santo Provider: Procedure Performed: CT ABDOMEN PELVIS WO CONTRASTExam Date: 12/26/2019 09:48MRN: [id number] Number: [id number] Class: EmergencyAccount #: [id number] for Exam: L flank and LLQ abdominal [...] DAMON THAKKAR On 12/26/2019 10:11 AMWorkstation ID: [id number] Name Value Range Interpretation Code Description Data Victoria rce(s) Supporting Document(s) ID Date Data Source [id number] 12/26/2019 09:32:21 AM EDT [facility] Name Value Range Interpretation Code Description Data Victoria rce(s) Supporting Document(s) POC URINE HCG (NEG) [facility] PERFORMED BY [facility] ID Date Data Source [id number] 12/27/2019 07:34:34 AM EDT [facility] SPECIMEN DESCRIPTION MIDSTREAM UR INE,CLEAN CATCHCULTURE RESULTS MIXED UROGENITAL RADHA; PLEASE SUBMIT A NEW SPEC IMEN IF CLINICALLY INDICATED.REPORT STATUS FINAL 12/27/2019 Name Value Range Interpretation Code Description Data Victoria rce(s) Supporting Document(s) ID Date Data Source [id number] 12/26/2019 10:23:34 AM EDT [facility] Name Value Range Interpretation Code Description Data Victoria rce(s) Supporting Document(s) SODIUM 139 mmol/L (136-145) [facility] POTASSIUM 4.2 mmol/L (3.6-5.2) [facility] CHLORIDE 104 mmol/L (100-108) [facility] CO2 25 mmol/L (22-31) [facility] ANION GAP 10 mmol/L (7-16) [facility] UREA NITROGEN 20 mg/dL (7-24) [facility] CREATININE 0.86 mg/dL (0.60-1.00) [facility] BUN/CREAT RATIO 23.3 RATIO (10.0-20.0) H [facility] GLUCOSE 89 mg/dL (70-99) [facility] CALCIUM 9.0 mg/dL (8.4-10.2) [facility] TOTAL PROTEIN 8.1 g/dL (6.4-8.2) [facility] ALBUMIN 3.6 g/dL (3.5-4.6) [facility] GLOBULIN 4.5 g/dL (2.7-4.3) H [facility] ALB/GLOB RATIO 0.8 RATIO [facility] ALKALINE PHOSPHATASE 122 U/L (45-117) H [facility] BILIRUBIN,TOTAL 0.4 mg/dL (0.0-1.0) [facility] PLEASE NOTE:Total bilirubin results may be falselyelevated in patients taking Eltrombopag. AST (SGOT) 32 U/L (11-39) [facility] ALT (SGPT) 48 U/L (12-78) [facility] GFR >60 ml/min/1.73m2 (>59) [facility] GFR ( AMER) >60 ml/min/1.73m2 (>59) [facility] GFR INTERPRETATION [facility] --NORMAL KIDNEY FUNCTION OR MILD DISEASE - GFR >OR= 60CHRONIC KIDNEY DISEASE - GFR 15 - 59RENAL FAILURE - GFR <15 Est. GFR calculation based on the MDRDstudy equation, which assumes a steadystate for creatinine. Est. GFR should notbe used for medication dosing. ID Date Data Source [id number] 12/26/2019 10:20:33 AM EDT [facility] Name Value Range Interpretation Code Description Data Victoria rce(s) Supporting Document(s) MAGNESIUM 2.3 mg/dL (1.7-2.4) [facility] ID Date Data Source [id number] 12/26/2019 10:20:33 AM EDT [facility] Name Value Range Interpretation Code Description Data Victoria rce(s) Supporting Document(s) LIPASE 99 U/L (65-230) [facility] ID Date Data Source [id number] 12/26/2019 10:17:27 AM EDT [facility] Name Value Range Interpretation Code Description Data Victoria rce(s) Supporting Document(s) COLOR [facility] APPEARANCE [facility] SPEC GRAV URINE 1.013 (1.003-1.030) [facility] PH URINE 5.5 (5.0-7.5) [facility] LEUK ESTERASE 2+ (NEG) A [facility] NITRITE URINE (NEG) [facility] PROTEIN URINE 1+ (NEG) A [facility] GLUCOSE URINE (NEG) [facility] KETONE URINE (NEG) [facility] UROBILINOGEN 0.2 mg/dL (0-1.0) [facility] BILIRUBIN URINE (NEG) [facility] BLOOD/HGB URINE 3+ (NEG) A [facility] EPITHELIAL CELLS 2+ [HPF] (NEG) A [facility] HYALINE CASTS 1.8 [LPF] (0-5) [facility] BACTERIA 2+ [HPF] (NEG) A [facility] URINE WBC 34.5 [HPF] (0-8) H [facility] URINE RBC 894.7 [HPF] (0-3) H [facility] ID Date Data Source [id number] 12/26/2019 10:06:37 AM EDT [facility] Name Value Range Interpretation Code Description Data Victoria rce(s) Supporting Document(s) WBC 6.5 10*3/uL (4.1-11.0) [facility] RBC 4.59 10*6/uL (4.00-5.40) [facility] HGB 12.7 g/dL (12.0-16.0) [facility] HCT 38.7 % (36.0-47.0) [facility] MCV 84.3 fL (80.0-95.0) [facility] MCH 27.7 pg (27.0-32.0) [facility] MCHC 32.8 g/dL (32.0-36.0) [facility] RDW 13.0 % (10.5-14.5) [facility] PLT 342 10*3/uL (150-450) [facility] MPV 7.3 fL (7.1-10.7) [facility] NEUT % 69.9 % (35.0-75.0) [facility] LYMPH % 22.4 % (16.0-52.0) [facility] MONO % 5.7 % (0.0-8.0) [facility] EOS % 1.3 % (0.0-5.0) [facility] BASO % 0.7 % (0.0-4.0) [facility] NEUT # 4.5 10*3/uL (1.8-7.7) [facility] LYMPH # 1.4 10*3/uL (1.2-4.8) [facility] MONO # 0.4 10*3/uL (0.0-0.8) [facility] Eosinophils [#/volume] in Blood by Automated count 0.1 10*3/uL (0.0-0 .5) [facility] BASO # 0.0 10*3/uL (0.0-0.2) [facility] ID Date Data Source [id number] 12/26/2019 10:02:55 AM EDT [facility] Name Value Range Interpretation Code Description Data Victoria rce(s) Supporting Document(s) URN CULTURE HOLD [facility] FOR ADD ON CULTURE ID Date Data Source [id number] 12/25/2019 09:40:33 AM EDT [facility]PATIE NT INFORMATIONPatient MRN Name Date of Age Gend*PT [id number] Taniya Field 1985 34 years F EDPT Location Admission Date/Time Visit ID Attending [id number] 12/24/19 1223 --- --- EPI ID CSN Admitting Provider [id number] ---Attestation signed by Kathy Cox MD at [...] Has not taken any pain medications formanagement [id number]. Denies any vaginal discharge, vaginal bleeding,new sexual partners, risk of . No other complaints at this time.Denies headache, blurry vision, weakness, dizziness, chest pain, shortness ofbreath, change in bowel or bladder habits, nausea, vomiting, diarrhea, fever,chills.History provided by: PatientFlank PainPain location: L flankPain quality: sharp and [...] 18 | Wt (!) 118.4 kg | QgM086% | BMI 49.32 kg/m Physical ExamConstitutional: She [...] rce(s) Supporting Document(s) ID Date Data Source [id number] 12/24/2019 01:37:15 PM EDT [address] [address]Zbgyyiv Name: TANIYA MARTINEZPENELOPEB: 1985Sex: FOrdering Provider: АНДРЕЙ Funez Prov: АНДРЕЙ MARTISCHReferring Provider: Procedure Performed: US RENAL KIDNEY BILATERALExam Date: 12/24/2019 13:28MRN: [id number] Number: [id number] Class: EmergencyAccount #: [id number] for Exam: L flank painTechnique: Real time [...] JAMES MURRAY On 12/24/2019 1:37 PMWorkstation ID: [id number] Name Value Range Interpretation Code Description Data Victoria rce(s) Supporting Document(s) ID Date Data Source [id number] 12/24/2019 01:05:04 PM EDT [facility] Name Value Range Interpretation Code Description Data Victoria rce(s) Supporting Document(s) POC URINE HCG (NEG) [facility] PERFORMED BY [facility] ID Date Data Source [id number] 12/24/2019 02:00:39 PM EDT [facility] Name Value Range Interpretation Code Description Data Victoria rce(s) Supporting Document(s) COLOR [facility] APPEARANCE [facility] SPEC GRAV URINE 1.016 (1.003-1.030) [facility] PH URINE 5.0 (5.0-7.5) [facility] LEUK ESTERASE 2+ (NEG) A [facility] NITRITE URINE (NEG) [facility] PROTEIN URINE 1+ (NEG) A [facility] GLUCOSE URINE (NEG) [facility] KETONE URINE (NEG) [facility] UROBILINOGEN 0.2 mg/dL (0-1.0) [facility] BILIRUBIN URINE (NEG) [facility] BLOOD/HGB URINE 3+ (NEG) A [facility] EPITHELIAL CELLS 3+ [HPF] (NEG) A [facility] HYALINE CASTS 3.2 [LPF] (0-5) [facility] BACTERIA 3+ [HPF] (NEG) A [facility] URINE WBC 44.0 [HPF] (0-8) H [facility] URINE RBC 654.6 [HPF] (0-3) H [facility] ID Date Data Source [id number] 12/24/2019 01:52:11 PM EDT [facility] Name Value Range Interpretation Code Description Data Victoria rce(s) Supporting Document(s) URN CULTURE HOLD [facility] FOR ADD ON CULTURE ID Date Data Source [id number] 12/24/2019 02:11:08 PM EDT [facility] Name Value Range Interpretation Code Description Data Victoria rce(s) Supporting Document(s) APTT 23.8 s (22.0-34.3) [facility] ID Date Data Source [id number] 12/24/2019 02:11:08 PM EDT [facility] Name Value Range Interpretation Code Description Data Victoria rce(s) Supporting Document(s) PT 10.3 s (9.2-11.9) [facility] INR 0.98 [facility] SUGGESTED THERAPEUTIC RANGES USING INR F ORSTABILIZED ANTICOAGULATED PATIENTS:STANDARD DOSE THERAPY INR 2.0-3.0 DVT, PE, PREVENT DVT OR EMBOLISMHIGH DOSE THERAPY INR 2.5-3.5 PREVENT EMBOLISM FROM MECHANICAL HEART VALVE ID Date Data Source [id number] 12/24/2019 01:51:26 PM EDT [facility] Name Value Range Interpretation Code Description Data Victoria rce(s) Supporting Document(s) SODIUM 141 mmol/L (136-145) [facility] POTASSIUM 4.4 mmol/L (3.6-5.2) [facility] CHLORIDE 107 mmol/L (100-108) [facility] CO2 27 mmol/L (22-31) [facility] ANION GAP 7 mmol/L (7-16) [facility] UREA NITROGEN 13 mg/dL (7-24) [facility] CREATININE 0.90 mg/dL (0.60-1.00) [facility] BUN/CREAT RATIO 14.4 RATIO (10.0-20.0) [facility] GLUCOSE 82 mg/dL (70-99) [facility] CALCIUM 9.4 mg/dL (8.4-10.2) [facility] TOTAL PROTEIN 7.7 g/dL (6.4-8.2) [facility] ALBUMIN 3.8 g/dL (3.5-4.6) [facility] GLOBULIN 3.9 g/dL (2.7-4.3) [facility] ALB/GLOB RATIO 1.0 RATIO [facility] ALKALINE PHOSPHATASE 125 U/L (45-117) H [facility] BILIRUBIN,TOTAL 0.3 mg/dL (0.0-1.0) [facility] PLEASE NOTE:Total bilirubin results may be falselyelevated in patients taking Eltrombopag. AST (SGOT) 41 U/L (11-39) H [facility] ALT (SGPT) 57 U/L (12-78) [facility] GFR >60 ml/min/1.73m2 (>59) [facility] GFR ( AMER) >60 ml/min/1.73m2 (>59) [facility] GFR INTERPRETATION [facility] --NORMAL KIDNEY FUNCTION OR MILD DISEASE - GFR >OR= 60CHRONIC KIDNEY DISEASE - GFR 15 - 59RENAL FAILURE - GFR <15 Est. GFR calculation based on the MDRDstudy equation, which assumes a steadystate for creatinine. Est. GFR should notbe used for medication dosing. ID Date Data Source [id number] 12/24/2019 01:49:11 PM EDT [facility] Name Value Range Interpretation Code Description Data [facility] rce(s) Supporting Document(s) LIPASE 95 U/L (65-230) [facility] ID Date Data Source [id number] 12/24/2019 01:25:45 PM EDT [facility] Name Value Range Interpretation Code Description Data [facility] rce(s) Supporting Document(s) WBC 6.7 10*3/uL (4.1-11.0) [facility] RBC 4.46 10*6/uL (4.00-5.40) [facility] HGB 12.7 g/dL (12.0-16.0) [facility] HCT 37.5 % (36.0-47.0) [facility] MCV 84.1 fL (80.0-95.0) [facility] MCH 28.5 pg (27.0-32.0) [facility] MCHC 33.9 g/dL (32.0-36.0) [facility] RDW 13.7 % (10.5-14.5) [facility] PLT 368 10*3/uL (150-450) [facility] MPV 7.1 fL (7.1-10.7) [facility] NEUT % 66.1 % (35.0-75.0) [facility] LYMPH % 24.5 % (16.0-52.0) [facility] MONO % 5.9 % (0.0-8.0) [facility] EOS % 0.8 % (0.0-5.0) [facility] BASO % 2.7 % (0.0-4.0) [facility] NEUT # 4.5 10*3/uL (1.8-7.7) [facility] LYMPH # 1.7 10*3/uL (1.2-4.8) [facility] MONO # 0.4 10*3/uL (0.0-0.8) [facility] Eosinophils [#/volume] in Blood by Automated count 0.1 10*3/uL (0.0-0 .5) [facility] BASO # 0.2 10*3/uL (0.0-0.2) [facility] ID Date Data Source [id number] 12/19/2019 07:21:53 PM EDT [facility] Name Value Range Interpretation Code Description Data Victoria rce(s) Supporting Document(s) EKG/ECG IN ED [facility] [file] [id number] ID Date Data Source [id number] 12/19/2019 07:21:00 [place] [address] Patient Name: Taniya Field Exam Date: 12/19/19 : 1985 CC: EKG/ECG in ED Ordering Doctor: Tyler Moreno MD Attending Doctor: Tyler Moreno MD CC: EKG/ECG in ED APPROVED REPORT ECG MEASUREMENT Heart Rate 84 AXES ME 141 P 38 QRSd 93 QRS -21 QT 364 T -9 QTc 405 INTERPRETATION Normal sinus rhythm, no acute signs of ischemia infarction, normal axis, normal QRS, rate 84 <Conclusion> Normal sinus rhythm, no acute signs of ischemia infarction, normal axis, normal QRS, rate 84 End of diagnostic report for accession: [id number] Interpreted: Tyler Moreno MD 12/19/191920 Transcribed: Signed: Tyler Moreno MD 12/19/191921 Interpreted by: Tyler MorenoTranscribed by: Tyler Moreno Name Value Range Interpretation Code Description Data [facility] rce(s) Supporting Document(s) Procedure Social History Code Duration Value Status Description Data Source(s ) Smoking 12/18/2020 12:00:00 AM EDT Patient has never smoked co mpleted Patient has never smoked [facility] Smoking 01/05/2020 07:46:00 AM EDT Denies Ever Smoked complete d Denies Ever Smoked [facility] Alcohol intake 12/24/2019 12:00:00 AM EDT No completed [facility] Smoking 12/24/2019 12:00:00 AM EDT Never smoker completed Never s moker [facility] Vital Signs ID Date Data Source UNK Name Value Range Interpretation Code Description Data Source(s) Body temperature 96.5 [degF] 96.5 [degF] [facility]) Forehead Body weight 261.00 [lb_av] 261.00 [lb_av] [facility] T ([facility]) Stated by Pt Heart rate 81 /min 81 /min [facility]) Systolic blood pressure 124 mm[Hg] 124 mm[Hg] M [facility] ([facility]) Diastolic blood pressure 80 mm[Hg] 80 mm[Hg] [facility]) Respiratory rate 16 /min 16 /min [facility] ( [facility]) Body height 60 [in_i] 60 [in_i] [facility] 5'0" Body mass index (BMI) [Ratio] 51.0 kg/m2 51.0 k g/m2 [facility]) [place] body weight 100 [lb_av] 100 [lb_av] [facility] ([facility]) Oxygen saturation in Arterial blood by Pulse oximetry 96 % 96 % [facility]) Room Air Body height 152.4 cm 152.4 cm [facility] Body temperature 97.1 [degF] 97.1 [degF] [facility]) Forehead Body weight 272.00 [lb_av] 272.00 [lb_av] [facility] ([facility]) Heart rate 76 /min 76 /min [facility] Systolic blood pressure 144 mm[Hg] 144 mm[Hg] M [facility] ([facility]) L Arm, Sitting Body height 152.4 cm 152.4 cm [facility] [place] body weight 100 [lb_av] 100 [lb_av] [facility] ([facility]) Oxygen saturation in Arterial blood by Pulse oximetry 99 % 99 % [facility]) Room Air Diastolic blood pressure 102 mm[Hg] 102 mm[Hg] [facility]) L Arm, Sitting Respiratory rate 18 /min 18 /min [facility] ( [facility]) Body height 60 [in_i] 60 [in_i] [facility] 5'0" Body mass index (BMI) [Ratio] 53.1 kg/m2 53.1 k g/m2 [facility]) Respiratory rate 16 /min 16 /min [facility] ( [facility]) Body mass index (BMI) [Ratio] 53.7 kg/m2 53.7 k g/m2 [facility]) Body temperature 97.3 [degF] 97.3 [degF] [facility]) Body weight 275.00 [lb_av] 275.00 [lb_av] [facility] ([facility]) Heart rate 86 /min 86 /min [facility] Systolic blood pressure 126 mm[Hg] 126 mm[Hg] M [facility] ([facility]) L Arm, Lrg cuff Diastolic blood pressure 84 mm[Hg] 84 mm[Hg] [facility]) L Arm, Lrg cuff Body height 60 [in_i] 60 [in_i] [facility] 5'0" [place] body weight 100 [lb_av] 100 [lb_av] [facility] ([facility]) Oxygen saturation in Arterial blood by Pulse oximetry 99 % 99 % [facility]) Room Air Body height 152.4 cm 152.4 cm [facility] Body weight 271.00 [lb_av] 271.00 [lb_av] [facility] ([facility]) Oxygen saturation in Arterial blood by Pulse oximetry 96 % 96 % [facility]) Room Air [place] body weight 100 [lb_av] 100 [lb_av] [facility] ([facility]) Diastolic blood pressure 86 mm[Hg] 86 mm[Hg] [...] 81.0 k g/m2 [facility]) [place] body weight 100 [lb_av] 100 [lb_av] MED[facility] [...] Body height 48.5 [in_i] 48.5 [in_i] [facility]) 4'0.50", with shoes Body [...] [in_i] [facility]) 5'0" [place] body weight 100 [lb_av] 100 [lb_av] MED[facility] [...] 52.7 k g/m2 [facility]) [place] body weight 100 [lb_av] 100 [lb_av] [facility] ([facility]) Oxygen saturation in Arterial blood by Pulse oximetry 99 % 99 % [facility]) Body height 152.4 cm 152.4 cm [facility] Systolic blood pressure 148 mm[Hg] 148 mm[Hg] [facility] Diastolic blood pressure 92 mm[Hg] 92 mm[Hg] [facility] Heart rate 80 /min 80 /min [facility] Body temperature 36.67 Phan 36.67 Phan [facility] Respiratory rate 16 /min 16 /min [facility] Oxygen saturation in Arterial blood by Pulse oximetry 100 % 100 % [facility] Body height 154.[address] [facility] Body weight 118.[address] [facility] Body mass index (BMI) [Ratio] 49.32 kg/m2 49.32 kg/m2 [facility] Systolic blood pressure 122 mm[Hg] 122 mm[Hg] M [facility] ([facility]) L Arm Diastolic blood pressure 88 mm[Hg] 88 mm[Hg] [facility] ([facility]) L Arm Body height 152.4 cm 152.4 cm [facility] Respiratory rate 15 /min 15 /min [facility] ( [facility]) Body temperature 97.1 [degF] 97.1 [degF] [facility] ([facility]) forehead Body weight 272.00 [lb_av] 272.00 [lb_av] [facility] T ([facility]) Heart rate 83 /min 83 /min [facility] ([facility]) Body height 60.00 [in_i] 60.00 [in_i] [facility] ([facility]) 5'0" Body mass index (BMI) [Ratio] 53.1 kg/m2 53.1 k g/m2 [facility] ([facility]) [place] body weight 100 [lb_av] 100 [lb_av] [facility] T ([facility]) Oxygen saturation in Arterial blood by Pulse oximetry 100 % 100 % [facility] ([facility]) Room Air Oxygen saturation in Arterial blood by Pulse oximetry 97 % 97 % [facility] ([facility]) Room Air Body temperature 98.1 [degF] 98.1 [degF] [facility] [...] cm [facility] ([facility] Body mass index (BMI) [Ratio] 52.7 kg/m2 52.7 k g/m2 [facility] ([facility]) [place] body weight 100 [lb_av] 100 [lb_av] [facility] T ([facility]) Oxygen saturation in Arterial blood by Pulse oximetry 98 % 98 % [facility] ([facility]) Room Air Body temperature 97.9 [degF] 97.9 [degF] [facility] ([facility]) forehead Body weight 270.00 [lb_av] 270.00 [lb_av] [facility] T ([facility]) Heart rate 91 /min 91 /min [facility] ([facility]) Systolic blood pressure 120 mm[Hg] 120 mm[Hg] M EDENT ([facility]) L Arm Diastolic blood pressure 80 mm[Hg] 80 mm[Hg] [facility] ([facility]) L Arm Body height 152.4 cm 152.4 cm [facility]) Respiratory rate 15 /min 15 /min [facility] ( [facility]) Body height 60.00 [in_i] 60.00 [in_i] [facility] ([facility]) 5'0" Body mass index (BMI) [Ratio] 52.7 kg/m2 52.7 k g/m2 [facility] ([facility]) [place] body weight 100 [lb_av] 100 [lb_av] [facility] T ([facility]) Systolic blood pressure 144 mm[Hg] 144 mm[Hg] [facility] Diastolic blood pressure 82 mm[Hg] 82 mm[Hg] [facility] Body mass index (BMI) [Ratio] 49.32 kg/m2 49.32 kg/m2 [facility] Heart rate 80 /min 80 /min [facility] Body temperature 36.22 Phan 36.22 Phan [facility] Respiratory rate 18 /min 18 /min [facility] Body height 154.9 cm 154.9 cm [facility] Body weight 118.389 kg 118.389 kg [facility] Oxygen saturation in Arterial blood by Pulse oximetry 99 % 99 % [facility] Systolic blood pressure 126 mm[Hg] 126 mm[Hg] [facility] Diastolic blood pressure 89 mm[Hg] 89 mm[Hg] [facility] Heart rate 83 /min 83 /min [facility] Body temperature 36.89 Phan 36.89 Phan [facility] Respiratory rate 18 /min 18 /min [facility] Body height 154.9 cm 154.9 cm [facility] Body weight 113.853 kg 113.853 kg [facility] Body mass index (BMI) [Ratio] 47.43 kg/m2 47.43 kg/m2 [facility] Oxygen saturation in Arterial blood by Pulse oximetry 100 % 100 % [facility] Systolic blood pressure 131 mm[Hg] 131 mm[Hg] [facility] Diastolic blood pressure 84 mm[Hg] 84 mm[Hg] [facility] Heart rate 99 /min 99 /min [facility] Body temperature 36.89 Phan 36.89 Phan [facility] Respiratory rate 18 /min 18 /min [facility] Body height 154.9 cm 154.9 cm [facility] Body weight 113.853 kg 113.853 kg [facility] Body mass index (BMI) [Ratio] 47.43 kg/m2 47.43 kg/m2 [facility] Oxygen saturation in Arterial blood by Pulse oximetry 98 % 98 % [facility] Systolic blood pressure 137 mm[Hg] Normal (applies t o non-numeric results) 137 mm[Hg] [facility] Respiratory rate 16 min Normal (applies to non-numeric results) 16 min [facility] Body temperature 36.9 phan Normal (applies to non-numeric results) 36.9 phan [facility] Body weight Measured 260 [lb_av] Normal (applies to n on-numeric results) 260 [lb_av] [facility] Diastolic blood pressure 86 mm[Hg] Normal (applies to non-numeric results) 86 mm[Hg] [facility] Body mass index (BMI) [Ratio] 49.1 kg/m2 No rmal (applies to non-numeric results) 49.1 kg/m2 [facility] Heart rate 104 min Normal (applies to non-numeric resul ts) 104 min [facility] Body height 154.8384 cm Normal (applies to non-numeric res ults) 154.8384 cm [facility] Deprecated Oxygen saturation in Capillary blood by Oximetry 98 % Normal (applies to non-numeric results) 98 % [facility] ID Date Data Source [id number] 01/30/2021 02:10:44 PM EST [facility] al Name Value Range Interpretation Code Description Data Source(s) WEIGHT RECORDED 118.3 KG 118.3 KG [facility] spital Height 157.48 CM 157.48 CM [facility] status [Interpretation] - Reported [facility] ID Date Data Source [id number] 12/12/2020 02:57:20 PM EDT [facility] Name Value Range Interpretation Code Description Data Source(s) WEIGHT RECORDED 125.25 KG 125.25 KG [facility] Height 154.94 CM 154.94 CM [facility] status [Interpretation] - Reported [facility] ID Date Data Source [id number] 12/19/2020 03:48:35 PM EDT [facility] Name Value Range Interpretation Code Description Data Source(s) WEIGHT RECORDED 118.3 KG 118.3 KG [facility] Height 154.94 CM 154.94 CM [facility] ID Date Data Source [id number] 10/08/2020 07:06:06 PM EDT [facility] Name Value Range Interpretation Code Description Data Source(s) WEIGHT RECORDED 120 KG 120 KG [facility] Height 154.94 CM 154.94 CM [facility] status [Interpretation] - Reported [facility] ID Date Data Source [id number] 09/21/2020 11:16:52 AM EDT [facility] Name Value Range Interpretation Code Description Data Source(s) Height 154.94 CM 154.94 CM [facility] WEIGHT RECORDED 120 KG 120 KG [facility] ID Date Data Source [id number] 09/17/2020 05:12:07 PM EDT [facility] Name Value Range Interpretation Code Description Data Source(s) WEIGHT RECORDED 123.2 KG 123.2 KG [facility] Height 154.94 CM 154.94 CM [facility] ID Date Data Source [id number] 12/06/2020 08:15:08 PM EDT [facility] Name Value Range Interpretation Code Description Data Source(s) WEIGHT RECORDED 113.85 KG 113.85 KG [facility] Height 154.94 CM 154.94 CM [facility] ID Date Data Source [id number] 07/02/2020 12:38:13 PM EDT [facility] Name Value Range Interpretation Code Description Data Source(s) Chief complaint - Reported KIDNEY STONE PAIN KI DNEY STONE PAIN [facility] Chief complaint - Reported KIDNEY STONE PAIN KI DNEY STONE PAIN [facility] ID Date Data Source [id number] 07/25/2020 04:21:20 PM EDT [facility] Name Value Range Interpretation Code Description Data Source(s) WEIGHT RECORDED 117 KG 117 KG [facility] Height 154.94 CM 154.94 CM [facility] status [Interpretation] - Reported [facility] ID Date Data Source [id number] 06/30/2020 08:42:10 PM EDT [facility] Name Value Range Interpretation Code Description Data Source(s) WEIGHT RECORDED 119 KG 119 KG [facility] Height 154.94 CM 154.94 CM [facility] status [Interpretation] - Reported [facility] ID Date Data Source [id number] 06/20/2020 09:39:13 AM EDT [facility] Name Value Range Interpretation Code Description Data Source(s) WEIGHT RECORDED 120 KG 120 KG [facility] Height 154.94 CM 154.94 CM [facility] ID Date Data Source [id number] 04/10/2020 08:37:10 AM EST [facility] Name Value Range Interpretation Code Description Data Source(s) WEIGHT RECORDED 122 KG 122 KG [facility] Height 154.94 CM 154.94 CM [facility] ID Date Data Source [id number] 03/26/2020 12:14:50 PM EST [facility] Name Value Range Interpretation Code Description Data Source(s) WEIGHT RECORDED 118.63 KG 118.63 KG [facility] Height 154.94 CM 154.94 CM [facility] ID Date Data Source [id number] 03/22/2020 07:12:09 AM EST [facility] Name Value Range Interpretation Code Description Data Source(s) WEIGHT RECORDED 118 KG 118 KG [facility] Height 160.02 CM 160.02 CM [facility] status [Interpretation] - Reported [facility] ID Date Data Source [id number] 04/10/2020 02:09:14 PM EST [facility] Name Value Range Interpretation Code Description Data Source(s) WEIGHT RECORDED 118 KG 118 KG [facility] Height 154.94 CM 154.94 CM [facility] status [Interpretation] - Reported [facility] ID Date Data Source [id number] 02/03/2020 12:52:54 PM EST [facility] Name Value Range Interpretation Code Description Data Source(s) WEIGHT RECORDED 118 KG 118 KG [facility] Height 154.94 CM 154.94 CM [facility] ID Date Data Source [id number] 02/02/2020 02:24:09 PM EST [facility] Name Value Range Interpretation Code Description Data Source(s) WEIGHT RECORDED 118 KG 118 KG [facility] Height 154.94 CM 154.94 CM [facility] ID Date Data Source [id number] 02/01/2020 06:33:07 AM EST [facility] Name Value Range Interpretation Code Description Data Source(s) WEIGHT RECORDED 118.6 KG 118.6 KG [facility] Height 154.94 CM 154.94 CM [facility] ID Date Data Source [id number] 05/03/2020 09:48:58 AM EST [facility] Name Value Range Interpretation Code Description Data Source(s) WEIGHT RECORDED 128 KG 128 KG [facility] Height 154.94 CM 154.94 CM [facility] status [Interpretation] - Reported [facility] ID Date Data Source [id number] 02/24/2020 08:28:36 AM EST [facility] Name Value Range Interpretation Code Description Data Source(s) WEIGHT RECORDED 118 KG 118 KG [facility] Height 154.94 CM 154.94 CM [facility] ID Date Data Source [id number] 02/01/2020 06:30:07 AM EST [facility] Name Value Range Interpretation Code Description Data Source(s) WEIGHT RECORDED 118.6 KG 118.6 KG [facility] Height 154.94 CM 154.94 CM [facility] status [Interpretation] - Reported [facility] ID Date Data Source [id number] 08/15/2020 04:21:10 PM EDT [facility] Name Value Range Interpretation Code Description Data Source(s) WEIGHT RECORDED 118.63 KG 118.63 KG [facility] Height 154.94 CM 154.94 CM [facility] status [Interpretation] - Reported [facility]
[2021-02-02] MEDS ORDERED: ONDANSETRON 4MG/2ML VIAL IV ONE (10:00)
[2021-02-02] MEDS: MORPHINE 4 MG/ML 1ML VIAL/SYRINGE (J2270) IV PRN ×2 (10:32→11:14)
[2021-02-02 10:34] LABS: BASO % 0.3 % (0.0-1.0); EOS # 0.1 10^3/uL (0.0-0.5); EOS % 1.1 % (0.0-3.0); HEMATOCRIT 39.3 % (36.0-47.0); HEMOGLOBIN 13.1 g/dl (12.0-15.5); LYMPH # 2.2 10^3/uL (1.5-5.0); LYMPH % 30.6 % (24.0-44.0); MEAN CORPUSCULAR HGB CONC 33.3 g/dl (32.0-36.5); MEAN CORPUSCULAR VOLUME 93.1 fl (80.0-96.0); MONO # 0.5 10^3/uL (0.0-0.8); MONO % 6.8 % (2.0-8.0); NEUTROPHILS # 4.3 10^3/uL (1.5-8.5); NEUTROPHILS % 60.5 % (36.0-66.0); PLATELET COUNT, AUTOMATED 279 10^3/uL (150-450); RED BLOOD COUNT 4.22 10^6/uL (4.00-5.40); WHITE BLOOD COUNT 7.1 10^3/uL (4.0-10.0)
--- NOTE | 2021-02-02 11:00 | REP ---
INDICATION: left FP COMPARISON: 01/17/2021 TECHNIQUE: Axial noncontrast images from the lung bases to the pubic symphysis with coronal and sagittal reformations. This CT examination was performed using the following dose reduction techniques: Automated exposure control, adjustment of mA and/or kv according to the patient's size, and use of iterative reconstruction technique. FINDINGS: Lung bases are clear. Visualized heart and pericardium normal. Liver demonstrates hepatomegaly and hepatosteatosis without focal hepatic lesion. Spleen, pancreas, bilateral adrenal glands and kidneys are normal. The enteric system is unremarkable and without obstruction or acute inflammatory process. Normal terminal ileum and evidence for prior appendectomy. Sigmoid diverticulosis noted without acute diverticulitis. Pelvis demonstrates normal bladder and age-appropriate uterus/adnexa. No ascites. No free air. No adenopathy. No focal inflammatory stranding. Abdominal aorta without aneurysm. Musculoskeletal structures are intact and without acute osseous abnormality. IMPRESSION: No acute abdominopelvic pathology appreciated. Hepatomegaly and hepatosteatosis. <Electronically signed by Jason Louis > 02/02/21 [id number]
--- OUTSIDE RECORDS SUMMARY | 2021-02-02 11:01 | CCD ---
Author Author [facility] Organization [facility] Address Unknown Phone Unavailable Support Name Relationship Address Phone SHAYNE FIELD Next Of Kin [address] [place] [address] [facility] Next Of Kin [address] [place] [address] [facility] LONG-TERM, HOUSEKEEPING Next Of Kin Unknown Unavailable [facility] LONG-TERM Next [place], [place] [address] WALTER OSW Next Of Kin [address] [address] FRANCISCO[place]AYLE[place] Next Of Kin [address] [place] [address] NOT EMPLOYED, NOT EMPLOYED Next Of Kin Unknown Unav ailable CONTACT, NO Next Of Kin Unknown Unavailable DOESN'T WISH, TO LIST Next Of Kin Unknown Unavailab le U Next Of Kin Unknown Unavailable None, Pt Per Next Of Kin - -, - - - ELTON DEGROOT Next Of Kin Unknown NI DEGROOT Next Of Kin [address] [address] NO, ONE Next Of Kin Unknown UE Next Of Kin Unknown Unavailable ALESSANDRO YIN Next Of Kin Unknown DOES, WISH TO LIST NOT Next Of Kin [address] [place] [address] PT DOES NOT, TO LIST WISH Next Of Kin N N N, N N Unavailable NO ONE, PATIENT DECL PER Next Of Kin Unknown Unavail able NO ONE, DECLINED [id number] PER PATIENT Next Of Kin Unknown Unavailable DECLINED [id number], DECLINED [id number] PT Next Of Kin Unknown Unavailable ALESSANDRO CAMPBELL Next Of Kin [address] [place] [id number] D [id number], DECLINED [id number] PT Next Of Kin Unknown Eun vailable D [id number], PT DECLINED [id number] Next Of Kin "" "", "" Unavailable DOES NOT, TO LIST WISH Next Of Kin [address] [place] [address] SONALI MONIQUEE Next Of Kin Unknown UN Next Of Kin Unknown Unavailable DONOVAN FLEMING Next Of Kin [address] [address] MARJORIE FLEMING Next Of Kin [address] [place] [address] N/ADONOVAN Next Of Kin Unknown PATRICK ROSS Next Of Kin [address] [id number] PATRICK MCCLELLAN Next Of Kin [address] [address] PATRICK HIGHTOWER Next Of Kin [address] [address] HILARIA BUTCHER Next Of Kin [address] [place] [address] [phone] NA, NA Next Of Kin Unknown Unavailable DISABLED Next Of Kin [address] [place], [place] [id number] [facility] Next Of Kin [address] [place] [address] DONOVAN FLEMING Next Of Kin [address] [address] REYES MAN Next Of Kin [address] [place] [address] UNEMPLOYED Next Of Kin [address] [place] [phone] HILARIA LEYVA Next Of Kin [address] [place] [address] [employer] [address] [phone] Care Team Providers Care Forestry Hunter Name Role Phone Darlene Hawley IPHONE DEVELOPER Unavailable Unavailable Flutriston Darlene IPHONE DEVELOPER Unavailable Unavailable Flutriston Darlene IPHONE DEVELOPER Unavailable Unavailable KATHY COX Unavailable Unavailable Suzette [...] DAVE ONEILL Unavailable Unavailable AZIZA, S DAVE ONELIL Unavailable Unavailable AZIZA, S DAVE ONEILL Unavailable [...] Schnapp, S Lico Unavailable Unavailable Schnapp, S Lcio Unavailable Unavailable Schnapp, S Lico Unavailable Unavailable [...] JHAVERI MD Unavailable Unavailable Springall, L Milena SPIKE MACHINE FEEDER Unavailable Unavailable Springall, L Milena SPIKE MACHINE FEEDER Unavailable Unavailable Springall, L Milena SPIKE MACHINE FEEDER Unavailable Unavailable Springall, L Milena SPIKE MACHINE FEEDER Unavailable Unavailable Springall, L Milena SPIKE MACHINE FEEDER Unavailable Unavailable Springall, L Milena SPIKE MACHINE FEEDER Unavailable Unavailable Springall, L Milena SPIKE MACHINE FEEDER Unavailable Unavailable Springall, L Milena SPIKE MACHINE FEEDER Unavailable Unavailable Springall, L Milena SPIKE MACHINE FEEDER Unavailable Unavailable Springall, L Milena SPIKE MACHINE FEEDER Unavailable Unavailable Springall, L Milena SPIKE MACHINE FEEDER Unavailable Unavailable Springall, L Milena SPIKE MACHINE FEEDER Unavailable Unavailable Springall, L Milena SPIKE MACHINE FEEDER Unavailable Unavailable Springall, L Milena SPIKE MACHINE FEEDER Unavailable Unavailable Springall, L Milena SPIKE MACHINE FEEDER Unavailable Unavailable Springall, L Milena SPIKE MACHINE FEEDER Unavailable Unavailable Springall, L Milena SPIKE MACHINE FEEDER Unavailable Unavailable Springall, L Milena SPIKE MACHINE FEEDER Unavailable Unavailable Springall, L Milena SPIKE MACHINE FEEDER Unavailable Unavailable YEN, LI-HSIANG Unavailable Unavailable DIANE, [...] Riojas MD Unavailable Unavailable TRUDY HINTON Unavailable [phone] HINTON, TRUDY Unavailable [phone] HINTON, TRUDY Unavailable [phone] HINTON, TRUDY Unavailable [phone] HINTON, TRUDY Unavailable [phone] HINTON, TRUDY Unavailable [phone] HINTON, TRUDY Unavailable [phone] HINTON, TRUDY Unavailable [phone] HINTON, TRUDY Unavailable [phone] HINTON, TRUDY Unavailable [phone] HINTON, TRUDY Unavailable [phone] HINTON, TRUDY Unavailable [phone] Beatriz JASSO PA-C Unavailable Unavailable Beatriz JASSO PA-C Unavailable Unavailable Beatirz JASSO PA-C Unavailable Unavailable Isaac ARELLANO MD [...] Unavailable DIANE, J FORTUNATO DO Unavailable Unavailable IDANE, J FOTRUNATO DO Unavailable Unavailable DIANE, J FORTNUATO DO Unavailable Unavailable DIANE, J FORTUNATO DO Unavailable Unavailable DIANE, J FORTUNATO DO Unavailable Unavailable DIANE, J FORTUNATO DO Unavailable Unavailable DIANE, J FORTUNATO DO Unavailable Unavailable DIANE, J FORTUNATO DO Unavailable Unavailable DIAEN, J FORTUNATO DO Unavailable Unavailable DIANE, J [...] J Simon Unavailable Unavailable REYES, T MARTI IPHONE DEVELOPER Unavailable Unavailable REYES, T MARTI IPHONE DEVELOPER Unavailable Unavailable REYES, T MARTI IPHONE DEVELOPER Unavailable Unavailable REYES, T MARTI IPHONE DEVELOPER Unavailable Unavailable REYES, T MARTI IPHONE DEVELOPER Unavailable Unavailable REYES, T MARTI IPHONE DEVELOPER Unavailable Unavailable REYES, T MARTI IPHONE DEVELOPER Unavailable Unavailable REYES, T MARTI IPHONE DEVELOPER Unavailable Unavailable REYES, T MARTI IPHONE DEVELOPER Unavailable Unavailable REYES, T MARTI IPHONE DEVELOPER Unavailable Unavailable REYES, T MARTI IPHONE DEVELOPER Unavailable Unavailable REYES, T MARTI IPHONE DEVELOPER Unavailable Unavailable REYES, T MARTI IPHONE DEVELOPER Unavailable Unavailable REYES, T MARTI IPHONE DEVELOPER Unavailable Unavailable REYES, T MARTI IPHONE DEVELOPER Unavailable Unavailable REYES, T MARTI IPHONE DEVELOPER Unavailable Unavailable REYES, T MARTI IPHONE DEVELOPER Unavailable Unavailable REYES, T MARTI IPHONE DEVELOPER Unavailable Unavailable REYES, T MARTI IPHONE DEVELOPER Unavailable Unavailable REYES, T MARTI IPHONE DEVELOPER Unavailable Unavailable REYES, T MARTI IPHONE DEVELOPER Unavailable Unavailable REYES, T MARTI IPHONE DEVELOPER Unavailable Unavailable REYES, T MARTI IPHONE DEVELOPER Unavailable Unavailable REYES, T MARTI IPHONE DEVELOPER Unavailable Unavailable REYES, T MARTI IPHONE DEVELOPER Unavailable Unavailable REYES, T MARTI IPHONE DEVELOPER Unavailable Unavailable REYES, T MARTI IPHONE DEVELOPER Unavailable Unavailable REYES, T MARTI IPHONE DEVELOPER Unavailable Unavailable REYES, T MARTI IPHONE DEVELOPER Unavailable Unavailable REYES, T MARTI IPHONE DEVELOPER Unavailable Unavailable REYES, T MARTI IPHONE DEVELOPER Unavailable Unavailable REYES, T MARTI IPHONE DEVELOPER Unavailable Unavailable REYES, T MARTI IPHONE DEVELOPER Unavailable Unavailable REYES, T MARTI IPHONE DEVELOPER Unavailable Unavailable REYES, T MARTI IPHONE DEVELOPER Unavailable Unavailable REYES, T MARTI IPHONE DEVELOPER Unavailable Unavailable REYES, T MARTI IPHONE DEVELOPER Unavailable Unavailable REYES, T MARTI IPHONE DEVELOPER Unavailable Unavailable REYES, T MARTI IPHONE DEVELOPER Unavailable Unavailable REYES, T MARTI IPHONE DEVELOPER Unavailable Unavailable EMERGENCY, SERVICES MEDICAL Unavailable Unavailable [...] is protected by Article 27-F of the [facility] Public Health law. If you continue you may have access to information: Regarding HIV / AIDS; Provided by facilities licensed or operated by the [facility] Office of Mental Health; or Provided by the [facility] Office for People With Developmental Disabilities. If such information is present, then the following [facility] mandated warning applies: This information has [...] law may result in a fine or long term sentence or both. A general authorization for the release of medical or other information is NOT sufficient authorization for further disc losure. Allergies and Adverse Reactions Type Description Substance Reaction Status Data Source(s ) Drug allergy Motrin Motrin on blood thinner [facility] Drug allergy ibuprofen Ibuprofen contraindication with blood thinne [facility] Drug allergy Penicillins Penicillin RASH/HIVES MO [facility] Drug allergy ibuprofen ibuprofen contraindication with blood thinne r [facility] Drug allergy Penicillins Penicillins RASH/HIVES [facility] Family History Family Member Name Family Member Gender Family Member Status Date o f Status Description Data Source(s) Unknown [facility] Male [facility] Unknown [facility] Unknown [facility] Encounters Encounter Providers Location Date Indications Data Source(s ) Outpatient Attender: FORTUNATO CONTRERAS DO [facility] 01/28/2021 04:45:00 PM EST [facility] Outpatient Attender: Emily Smith tender: Sierra Elder DOAdmitter: Sierra Elder DOConsultant: Sierra Elder DOConsultant: Emily Cook [place] OUTPATIENT-EMERGENCY 01/26/2021 09:32:00 AM EST - 01/26/2021 12:09:00 PM [facility] Patient discharged. Emergency Attender: Kyree John MD 2020 01:30:00 PM EDT - 12/31/2020 02:12:00 PM EDT Poss Kidney Stone [facility] Poss Kidney Stone Patient discharged. Outpatient Attender: TRUDY [facility]INTON [facility] 12/18/2020 01:00:00 PM EDT [facility] Outpatient Attender: FORTUNATO CONTRERAS DO [facility] 12/10/2020 07:30:00 PM EDT [facility] Outpatient Attender: Jerome Paige MDAt tender: Maikel Peralta MDAttender: SONIA BAKER MDAdmitter: Jerome Iakin MDConsultant: LEÓN CAM OUTPATIENT-EMERGENCY 12/06/2020 01:52:00 PM EDT - 12/06/2020 08:20:[address] [facility] Patient discharged. Emergency Attender: PHANI CALVILLO .Attender: Elton Dobbs 12/03/2020 02:42:00 PM EDT - 12/03/2020 08:30:00 PM EDT Poss Kidney Stone [facility] Poss Kidney Stone Patient discharged. [place] [address] [address] 11/09/2020 12:00:00 AM EDT eCW1 ([facility]) Referrer: FORTUNATO CONTRERAS DO 11/02/2020 08:21:08 PM EDT [facility] Outpatient Attender: FORTUNATO CONTRERAS DO [facility] 11/01/2020 11:50:00 AM EDT [facility] ([facility] [...] Attender: FORTUNATO CONTRERAS DO [facility] 10/18/2020 07:00:00 PM EDT [facility] ([facility] Outpatient Attender: SONIA BAKER MDA dmitter: SONIA BAKER MDConsultant: SONIA BAKER MD OUTPATIENT-ER 10/17/2020 05:55:00 PM EDT - 10/17/2020 08:44:[address] [facility] Patient discharged. Outpatient Attender: FORTUNATO CONTRERAS DO 10/06/2020 08:50:00 AM EDT [facility] Emergency Attender: Kyree John MD 2020 08:01:00 AM EDT - 10/06/2020 08:32:00 AM EDT Left Side Pain [facility] Left Side Pain Patient discharged. Outpatient Attender: Gladys Storm 09/29/19 01:35:14 PM EDT - 09/28/2020 01:52:44 PM EDT [facility] ([facility] ) Outpatient Attender: Jerome Mackey tender: EDGARDO JERNIGANttender: SONIA BAKER MDAdmitter: Jerome Paige MDConsultant: Jerome Paige MDConsultant: EDGARDO DIAZ OUTPATIENT-ER 09/21/2020 06:39:00 PM EDT - 09/21/2020 08:44:[address] [facility] Patient discharged. Outpatient Attender: SONIA BAKER MDA dmitter: SONIA BAKER MDConsultant: SONIA BAKER MD OUTPATIENT-EMERGENCY 09/17/2020 02:09:00 PM EDT - 09/17/2020 06:12:[address] [facility] Patient discharged. Outpatient Attender: FORTUNATO CONTRERAS DO [facility] 09/13/2020 09:00:00 AM EDT [facility] ([facility] Outpatient Attender: Darlene ARVIZU 09/06/2020 11 :01:00 AM EDT [facility] Outpatient Attender: PRAKASH Nesbitt jenny: Sierra Elder DOAdmitter: Sierra Elder DOConsultant: PRAKASH JASSO PA-C OUTPATIENT-UNKNOWN_LOCATION 08/19/2020 04:21:00 PM EDT - 08/19/2020 07:45:00 [facility]. Outpatient Attender: Emily Smith tender: SONIA BAKER MDAdmitter: SONIA BAKER MDConsultant: LI-HSIANG YEN OUTPATIENT-EMERGENCY 08/15/2020 02:30:00 PM EDT - 08/15/2020 08:11:00 [facility]. Outpatient Attender: FORTUNATO CONTRERAS DO [facility] 08/10/2020 06:30:00 PM EDT [facility] ([facility] Outpatient Attender: Stuart Ge MDAttender: Other Other 08/06/2020 08:25:00 AM EDT lab [facility] lab Outpatient Attender: Stuart Carolina MDAttender: Other Other 07/31/2020 03:48:00 PM EDT [facility] 2 of 2 [facility] ohclab 2 of 2 Outpatient Attender: FORTUNATO CONTRERAS DO 07/31/2020 03:28:00 PM EDT [facility]clab Outpatient Attender: TRUDY HINTON [facility] 07/26/2020 02:30:00 PM EDT [facility] ([facility]) Emergency Attender: Estevan Rich MD 021 01:45:00 PM EDT - 07/25/2020 05:35:00 PM EDT Poss Kidney Stone [facility] Kidney Stone Patient discharged. Outpatient Attender: Maikel Salter DAttender: SONIA BAKER MDAdmitter: Maikel Peralta MD OUTPATIENT-ER 07/16/2020 12:14:00 PM EDT - 07/16/2020 02:05:[address] [facility] Patient discharged. Emergency Attender: MEDICAL EMERGENCY 06/14 11:44:00 AM EDT - 07/02/2020 01:12:00 PM EDT [facility] Emergency Attender: MEDICAL EMERGENCY [facility] 06/14 11:44:00 AM EDT - 07/02/2020 01:12:00 PM EDT [facility] Patient discharged. Outpatient Attender: PRAKASH Nesbitt jenny: MYLES LEE MDAdmitter: MYLES LEE MDConsultant: PRAKASH JASSO PA-C OUTPATIENT-EMERGENCY 06/28/2020 10: 20:00 AM EDT - 06/28/2020 03:44:[address] [facility] Patient discharged. Outpatient Attender: FORTUNATO CONTRERAS DO [facility] 06/26/2020 11:00:00 AM EDT [facility] ([facility]) EMERGENCY Attender: Joesph Oliveros MD 2E-ED 06/21 10:41:00 AM EDT - 06/21/2020 03:02:00 PM EDT [facility] Patient discharged. Outpatient Attender: MYLES LEE MDA dmitter: MYLES LEE MDConsultant: MYLES LEE MDConsultant: Emily DIAZ OUTPATIENT-EMERGENCY 06/21/19 07:55:00 AM EDT - 06/20/2020 11:07:00 AM EDT [facility] Patient discharged. Outpatient Attender: FORTUNATO MCNAMARAANA DO [facility] 06/11/2020 11:30:00 AM EDT [facility] ([facility]) Outpatient Attender: TRUDY HINTON [facility] 06/04/2020 02:00:00 PM EDT [facility] ([facility]) Outpatient Attender: TRUDY HINTON [facility] 05/28/2020 01:00:00 PM EDT [facility] ([facility]) Outpatient Attender: FORTUNATO CONTRERAS [facility] 05/25/2020 07:30:00 PM EST [facility] ([facility]) Emergency Attender: MCKAYLA JHAVERI MD ES1-ES1 10/2020 12:00:00 PM EST - 05/21/2020 05:14:00 PM EST [facility] Patient discharged. Emergency Attender: BARTOLO ARELLANO MD ES1-ES1 02:52:00 PM EST - 05/16/2020 09:10:00 PM EST [facility] Patient discharged. Emergency Attender: Kyree John MD 2020 10:30:00 AM EST - 05/11/2020 12:47:00 PM EST L Sided ABD Pain [facility] L Sided ABD Pain Patient discharged. Outpatient Attender: MARTI MOTTP 04/17 06:02:12 PM EST - 05/06/2020 07:10:30 PM EST [facility] ([facility] ) Outpatient Attender: TRUDY HINTON [facility] 04/30/2020 02:15:00 PM EST [facility] Outpatient Attender: Sierra Glover jenny: SONIA BAKER MDAdmitter: Sierra KHANonsultant: SONIA BAKER MDConsultant: Sierra Elder DO OUTPATIENT-EMERGENCY 04/30/2020 07:01:00 AM EST - 04/30/2020 09:09:00 AM [facility] Patient discharged. Outpatient Attender: Simon Esparza 09/2020 01:05:18 PM EST - 04/22/2020 02:18:26 PM EST [facility] ([facility] ) Outpatient Attender: FORTUNATO CONTRERAS DO [facility] 04/13/2020 06:00:00 PM EST [facility] ([facility]) Outpatient Attender: EDGARDO Spencer jenny: Sierra Elder DOAdmitter: Sierra Elder DOConsultant: Sierra Elder DOConsultant: EDGARDO DIAZ OUTPATIENT-EMERGENCY 04/03/2020 01:13:00 PM EST - 04/03/2020 06:28:00 PM [facility] Patient discharged. Emergency Attender: Elton Dobbs 02:25:00 PM EST - 03/29/2020 07:34:00 PM EST Abd Pain [facility] Pain Patient discharged. Emergency ES1-ES1 03/23/2020 01:31:00 PM EST - 021 05:46:00 PM EST [facility] Patient discharged. Outpatient Attender: Sierra Glover jenny: SONIA BAKER MDAdmitter: Sierra KHANonsultant: SONIA BAKER MDConsultant: Sierra Elder DO OUTPATIENT-EMERGENCY 03/22/2020 06:45:00 AM EST - 03/22/2020 07:55:00 AM [facility] Patient discharged. Emergency Attender: Estevan Rich MD 021 03:31:00 PM EST - 03/19/2020 04:23:00 PM EST [facility] Patient discharged. Outpatient Attender: OMAYRA JORGE DOAdmitter: OMAYRA JORGE DOConsultant: ROSAURA STEPHENSConsultant: OMAYRA JORGE DO OUTPATIENT-EMERGENCY 03/06/2020 07:47:00 AM EST - 03/06/2020 11:40:00 AM [facility] Patient discharged. Outpatient Attender: EDGARDO Spencer jenny: NANI MOSQUERA MDAdmitter: NANI MOSQUERA MDConsultant: NANI NEKOMA MDConsultant: MENDY CASTELLONConsultant: EDGARDO DIAZ OUTPATIENT-EMERGENCY 03/03/2020 06:06:00 PM EST - 03/03/2020 09:02:00 PM [facility] Patient discharged. Emergency Attender: Estevan Rich MD 020 01:13:00 PM EST - 02/20/2020 04:45:00 PM EST Abdomen pain [facility] Abdomen pain Patient discharged. Emergency Attender: Estevan Rich MD 020 03:50:00 PM EST - 02/14/2020 06:37:00 PM EST [facility]ly [facility] Patient discharged. Outpatient Attender: MYLES LEE MDA ttender: Bernabe Kumar MDAdmitter: MYLES LEE MDConsultant: Desmond Lj MDConsultant: MYLES LEE MD OUTPATIENT-EMERGENCY 02/01/2020 06:19:00 AM EST - 02/01/2020 10:57:00 AM [facility] Patient discharged. Outpatient Attender: Sierra Elder DOAdm itter: Sierra Elder DOConsultant: Sierra Elder DO OUTPATIENT-EMERGENCY 01/28/2020 08:44:00 AM EST - 01/28/2020 11:11:00 AM [facility] Patient discharged. Outpatient Attender: OMAYRA JORGE DOAttender: Bernabe Kumar MDAdmitter: OMAYRA JORGE DOConsultant: OMAYRA JORGE DO OUTPATIENT-EMERGENCY 01/23/2020 06:31:00 AM EST - 01/23/2020 09:23:00 AM [facility] Patient discharged. Outpatient Attender: MYLES LEE MDA ttender: Jerome Paige MDAdmitter: Jerome Paige MDConsultant: Desmond Calhoun MDConsultant: MYLES LEE MDConsultant: Jerome Paige MD OUTPATIENT-EMERGENCY 01/20/2020 06:20:00 AM EST - 01/20/2020 11:47:00 AM [facility] Patient discharged. Outpatient Attender: OMAYRA JORGE DOAdmitter: OMAYRA JORGE DOConsultant: DEVONTE Jonessultant: Lico Huisultant: OMAYRA JORGE DO OUTPATIENT-EMERGENCY 01/18/2020 02:40:00 PM EST - 01/18/2020 07:12:00 PM [facility] Patient discharged. Outpatient Attender: Sierra Glover jenny: SONIA BAKER MDAdmitter: Sierra Elder DOConsultant: DEVONTE Haltant: Sierra Elder DOConsultant: SONIA BAKER MD OUTPATIENT-EMERGENCY 01/16/2020 06:29:00 AM EST - 01/16/2020 09:26:00 AM [facility] Patient discharged. Emergency Attender: AWA MAGANA ES1-ES1 020 07:40:00 AM EST - 01/15/2020 10:32:00 AM EST [facility] Patient discharged. Outpatient Attender: DAVE ERVIN MDReferrer: Herman saul MD 01/12/2020 09:45:00 AM EDT Right shoulder pain [facility] Right shoulder pain Emergency Attender: ER PHYSICIAN 01/05/2020 08:17:06 AM E DT Lab [facility] Emergency Attender: ANGELA WHELANAttender: ER PHYSICIAN 01/05/2020 07:30:00 AM EDT - 01/05/2020 09:42:00 AM EDT [facility] ABD PAIN Patient discharged. Emergency Attender: KATHY COX ES1-ES1 2019 08:11:00 AM EDT - 12/26/2019 11:12:00 AM EDT [facility] Patient discharged. Emergency Attender: KATHY COX ES1-ES1 2019 11:37:00 AM EDT - 12/24/2019 02:10:00 PM EDT [facility] Patient discharged. Emergency Attender: Tyler Moreno MD 12/18 01:02:00 PM EDT - 12/19/2019 04:08:00 PM EDT Abd Pain[facility] Abd Pain/Injury Patient discharged. Emergency Attender: Tyler Moreno MDAttender: Estevan Rich MD 12/14/2019 02:03:00 PM EDT - 12/14/2019 04:57:00 PM EDT [facility] Patient discharged. Emergency Attender: Tyler Moreno MD 12/13 12:33:00 PM EDT - 12/14/2019 01:12:00 PM EDT Headache[facility] Head[facility] Patient discharged. Outpatient Attender: Milena Moreno NP 12/13/2019 02:30: 00 PM EDT N92.0 [facility] N92.0 Emergency Attender: Estevan Rich MD 020 11:57:00 AM EDT - 12/02/2019 03:59:00 PM EDT Stomach Pain [facility] Stomach Pain Patient discharged. Outpatient Attender: Milena Moreno NP 12/02/2019 11:02: 00 AM EDT [facility]cl[facility] ohclab Outpatient Attender: Emily Cook PAAt tender: Sierra Elder DOAdmitter: Emily Mix PAConsultant: Sierra Robbinsb DOConsultant: RAMESH COLEMAN MDConsultant: Emily Mix PAConsultant: ONOFRE FITZGERALD DO OUTPATIENT-EMERGENCY 02/16/2019 02:09:00 PM EST - 02/16/2019 06:37:00 PM [facility] Patient discharged. Outpatient Attender: Duglas Duran MD 07/2018 01:27:00 PM EDT - 06/18/2018 02:00:00 PM EDT LOW BACK PAIN LEFT SHOULDER [facility] LOW BACK PAIN LEFT SHOULDER Patient discharged. Functional Status Immunizations Vaccine Date Status Description Data Source(s) COVID-19 VACCINE Pfizer 01/30/2021 12:00:00 AM EST completed [place] Vaccine Series Complete: YESThis Data wa s Submitted to [facility] Via [employer]. New in 2011. IIV4 12/18/2020 01:22:00 PM EDT completed [facility] ([facility]) MMR 09/13/2020 10:36:00 AM EDT completed M EDENT ([facility] Medicine) MMR 08/07/2020 03:29:00 PM EDT completed M EDENT ([facility]) COVID-19 VACCINE Pfizer 07/21/2020 12:00:00 AM EDT completed [place] Vaccine Series Complete: YESThis Data wa s Submitted to [facility] Via [employer]. COVID-19 VACCINE Pfizer 06/30/2020 12:00:00 AM EDT completed [place] Vaccine Series Complete: NOThis Data was Submitted to [facility] Via [facility]. Medications Medication Brand Name Start Date Product Form Dose Route Admi nistrative Instructions Pharmacy Instructions Status Indications Reaction Description Data Source(s) chlorhexidine gluconate 1.2 MG/ML Mouthwash Chlorhexidine Gl uconate 02/01/2021 12:00:00 AM EST active M [facility] (Formerly [facility]) Acetaminophen 325 MG / Hydrocodone Bitartrate 5 MG Ora l Tablet Hydrocodone Bitartrate/Acetaminophen 01/28/2021 12:00:00 AM EST active [facility] ([facility]) Clindamycin 150 MG Oral Capsule Clindamycin HCL 01/28/2021 12:00:00 A M EST ORAL active [facility] ([facility]) tramadol hydrochloride 50 MG Oral Tablet Tramadol HCL 12/18/2020 12:00:00 AM EDT completed [facility] ([facility]) topiramate 50 MG Oral Tablet Topiramate 12/10/2020 12:00:00 AM EDT ORAL completed [facility] ([facility]) pregabalin 75 MG Oral Capsule [Lyrica] Lyrica 12/10/2020 12:00:00 AM EDT ORAL completed [facility] ([facility]) topiramate 25 MG Oral Tablet Topiramate 11/01/2020 12:00:00 AM EDT ORAL completed [facility] ([facility]) tizanidine 4 MG Oral Capsule Tizanidine HCL [...] done hydrochloride 5 MG Oral Tablet [facility] Clindamycin 300 MG Oral Capsule clindamycin 300 MG Ora l Capsule clindamycin 300 MG Oral Capsule 06/26/2020 12:00:00 AM EDT 300 mg oral ac tive clindamycin 300 MG Oral Capsule [facility] Clindamycin 300 MG Oral Capsule clindamycin 300 MG Ora l Capsule clindamycin 300 MG Oral Capsule 06/26/2020 12:00:00 AM EDT 300 mg oral co mpleted clindamycin 300 MG Oral Capsule [facility] Clindamycin 300 MG Oral Capsule Clindamycin HCL [...] 06/04/2020 12:00:00 AM EDT ORAL completed [facility] ([facility]) 12 HR Loratadine 5 MG / Pseudoephedrine sulfate 120 MG Extended Release Oral Tablet [Claritin-D] Claritin-D 12 Hour 06/04/2020 12:00:00 AM EDT ORAL completed [facility] ([facility]) Clindamycin 150 MG Oral Capsule Clindamycin HCL 05/25/2020 12:00:00 A M EST completed [facility] ([facility]) Acetaminophen 325 MG / Hydrocodone Bitartrate 5 MG Ora l Tablet Hydrocodone Bitartrate/Acetaminophen 05/25/2020 12:00:00 AM EST completed [facility] ([facility]) Baclofen 10 MG Oral Tablet Baclofen 04/30/2020 12:00:00 AM EST ORAL completed [facility] ([facility]) Mirtazapine 15 MG Oral Tablet Mirtazapine 04/13/2020 12:00:00 AM EST ORAL completed [facility] ([facility]) buspirone hydrochloride 10 MG Oral Tablet Buspirone HCL 04/13/2020 12:00:00 AM EST ORAL completed [facility] ([facility]) 0.8 ML Enoxaparin sodium 150 MG/ML Prefilled Syringe [Loveno x] Lovenox 04/13/2020 12:00:00 AM EST active [facility] ([facility]) levocetirizine dihydrochloride 5 MG Oral Tablet Levocetirizi ne Dihydrochloride 04/13/2020 12:00:00 AM EST ORAL completed [facility] ([facility]) venlafaxine 37.5 MG Oral Tablet Venlafaxine HCL 04/13/2020 12:00:00 A M EST ORAL completed [facility] ([facility]) Acetaminophen 325 MG / Hydrocodone Christina trate 5 MG Oral Tablet acetaminophen 325 MG / hydrocodone bitartrate 5 MG Oral Tablet acetaminophen 325 MG / hydrocodone bitartrate 5 MG Oral Tablet 01/18/2020 12:00:00 AM EST 1 oral completed acetaminophen 325 MG / hydrocodone christina trate 5 MG Oral Tablet [facility] Acetaminophen 325 MG / Hydrocodone Christina trate 5 MG Oral Tablet acetaminophen 325 MG / hydrocodone bitartrate 5 MG Oral Tablet acetaminophen 325 MG / hydrocodone bitartrate 5 MG Oral Tablet 01/18/2020 12:00:00 AM EST 1 oral active acetaminophen 325 MG / hydrocodone bitartrate 5 MG Oral Tablet [facility] Acetaminophen 325 MG / Hydrocodone Chrisitna trate 5 MG Oral Tablet acetaminophen 325 MG / hydrocodone bitartrate 5 MG Oral Tablet acetaminophen 325 MG / hydrocodone bitartrate 5 MG Oral Tablet 01/18/2020 12:00:00 AM EST 1 oral active acetaminophen 325 MG / hydrocodone bitartrate 5 MG Oral Tablet [facility] Acetaminophen 325 MG / Hydrocodone Christina trate 5 MG Oral Tablet acetaminophen 325 MG / hydrocodone bitartrate 5 MG Oral Tablet acetaminophen 325 MG / hydrocodone bitartrate 5 MG Oral Tablet 01/18/2020 12:00:00 AM EST 1 oral active acetaminophen 325 MG / hydrocodone bitartrate 5 MG Oral Tablet [facility] Phenazopyridine hydrochloride 200 MG Ora l Tablet phenazopyridine hydrochloride 200 MG Oral Tablet phenazopyridine hydrochloride 200 MG Oral Tablet 01/16 12:00:00 AM EST 200 mg oral active phenazopyridine hydrochloride 200 MG Oral Tablet [facility] Phenazopyridine hydrochloride 200 MG Ora l Tablet phenazopyridine hydrochloride 200 MG Oral Tablet phenazopyridine hydrochloride 200 MG Oral Tablet 01/16 12:00:00 AM EST 200 mg oral completed phenazopyridine hydrochloride 200 MG Oral Tablet [facility] Phenazopyridine hydrochloride 200 MG Ora l Tablet phenazopyridine hydrochloride 200 MG Oral Tablet phenazopyridine hydrochloride 200 MG Oral Tablet 01/16 12:00:00 AM EST 200 mg oral active phenazopyridine hydrochloride 200 MG Oral Tablet [facility] cefpodoxime 100 MG Oral Tablet cefpodoxime 100 MG Oral Table t 01/16/2020 12:00:00 AM EST 100 mg oral completed cefpo doxime 100 MG Oral Tablet [facility] Acetaminophen 325 MG Oral Tablet acetaminophen (TYLENO L) 325 MG tablet 975 mg acetaminophen (TYLENOL) 325 MG tablet 975 mg 01/15/2020 08:50:00 AM EST 975 mg Oral completed 975 mg, Or al, Once, 01/15/20 at 0850, For 1 dose
"Maximum dose of acetaminophen is 4,000 mg from all sources in 24 hours."
[facility] Medication administered onsite Insurance Providers Payer name Policy type / Coverage type Policy ID Covered libertarian ID Covered libertarian's relationship to curtis Policy Curtis Plan Information FRANCIS GOLDEN MCAID [id number] Patient is Insured [id number] FRANCIS [id number] Patient [id number] SELF PAY SELF Patient SELF PERSONAL PAY UNAVAILABLE SELF UNAVA ILABLE SELF PAY NOTNEEDED Patient is Insured N OTNEEDED MEDICAID [id number] Patient is Insured B [id number] FRANCIS CARE DIRECT PCP [id number] Patient is Ins ured [id number] FRANCIS [id number] SELF [id number] 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 DEVON WALTER [id number] SELF [id number] MEDICAID UNAVAILABLE Patient is Insured UNAVAILABLE 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 DEVON WALTER UNAVAILABLE SELF UNAVAILABLE MEDICARE 4 [id number] MEDICARE 4 [id number] TOTAL CARE [id number] Patient is Insured [id number] [facility] [id number] Patient is Insured [id number] FRANCIS MEDICARE ADV [id number] SP [id number] WELLCARE [facility] 11 [id number] 1 [id number] MEDICAID M [id number] Self [id number] MEDICAID [id number] Edita [id number] GENERIC MEDICAID HMO [id number] Self [id number] TOTAL CARE I [id number] Self [id number] Total Care Commercial [id number] Self TOTAL CARE MEDICAID/HARO [id number] Edita [id number] TOTAL CARE MEDICAID/HARO [id number] Edita [id number] TOTAL CARE MEDICAID [id number] Edita [id number] TODAY'S OPTIONS [facility] [place] [id number] SP [id number] [place] [id number] SP BF [id number] [facility] [place] [id number] SP [id number] TOTAL CARE I [id number] Self [id number] [facility] I [id number] Self BF [id number] [facility] I [id number] Self BF [id number] [facility] [id number] SP BF [id number] [facility] [id number] SP BF [id number] .[facility] [id number] SP [id number] [facility] [id number] SP BF [id number] [facility] [id number] SP BF [id number] MEDICAID [id number] Edita [id number] MEDICAID [id number] xxxxxxxx [id number] [facility] [id number] SP BF [id number] [facility] [id number] SP BF [id number] [facility] [id number] SP BF [id number] FRANCIS MEDICAID [id number] xxxxxxxxxxx [id number] FRANCIS [id number] SP [id number] FRANCIS I [id number] Self [id number] FRANCIS MEDICAID [id number] Edita 7 [id number] FRANCIS [id number] Self [id number] FRANCIS I [id number] Self [id number] FRANCIS I [id number] Self [id number] [place] [id number] Self [id number] FRANCIS [id number] xxxxxxxxxxx [id number] FRANCIS CARE [facility] [id number] S [id number] Francis Care [facility] [id number] Self [id number] MEDICAID MANAGED CARE GENERIC I Self FRANCIS [id number] SP [id number] SELF PAY SELF PAY FRANCIS [id number] SP [id number] 400 SELF PAY FRANCIS [id number] SP [id number] 400 FRANCIS [id number] SP [id number] 400 SELF PAY [place] Medicaid F [id number] SELF 7 [id number] Helen Medicaid F [id number] SELF 7 [id number] FRANCIS [id number] SP [id number] 400 SELF PAY FRANCIS [id number] SP [id number] 400 SELF PAY SELF PAY FRANCIS [id number] SP [id number] 400 FRANCIS [id number] SP [id number] 400 SELF PAY SELF PAY FRANCIS [id number] SP [id number] 400 SELF PAY FRANCIS [id number] SP [id number] 400 FRANCIS [id number] SP [id number] 400 SELF PAY SELF PAY FRANCIS [id number] SP [id number] 400 FRANCIS [id number] SP [id number] 400 FRANCIS [id number] SP [id number] SELF PAY FRANCIS [id number] SP [id number] 400 SELF PAY FRANCIS [id number] SP [id number] FRANCIS [id number] SP [id number] 400 SELF PAY FRANCIS [id number] SP [id number] 400 SELF PAY SELF PAY FRANCIS [id number] SP [id number] 400 SELF PAY FRANCIS [id number] SP [id number] 400 FRANCIS [id number] SP [id number] 400 SELF PAY FRANCIS [id number] SP [id number] FRANCIS [id number] SP [id number] SELF PAY FRANCIS [id number] SP [id number] SELF PAY FRANCIS [id number] SP [id number] SELF PAY FRANCIS [id number] SP [id number] SELF PAY FRANCIS [id number] SP [id number] SELF PAY SELF PAY FRANCIS [id number] SP [id number] 400 FRANCIS [id number] SP [id number] 400 SELF PAY SELF PAY FRANCIS [id number] SP [id number] 400 SELF PAY FRANCIS [id number] SP [id number] 400 FRANCIS [id number] SP [id number] 400 SELF PAY FRANCIS [id number] SP [id number] 400 SELF PAY SELF PAY FRANCIS [id number] SP [id number] 400 FRANCIS [id number] SP [id number] 400 SELF PAY Helen [employer] [id number] Self [id number] SELF PAY FRANCIS [id number] SP [id number] 400 FRANCIS [id number] SP [id number] 400 SELF PAY FRANCIS [id number] SP [id number] 400 SELF PAY SELF PAY FRANCIS [id number] SP [id number] 400 FRANCIS [id number] SP [id number] 400 SELF PAY FRANCIS [id number] SP [id number] 400 SELF PAY SELF PAY FRANCIS [id number] SP [id number] 400 SELF PAY FRANCIS [id number] SP [id number] 400 SELF PAY FRANCIS [id number] SP [id number] 400 SELF PAY FRANCIS [id number] SP [id number] 400 SELF PAY FRANCIS [id number] SP [id number] 400 SELF PAY FRANCIS [id number] SP [id number] 400 SELF PAY FRANCIS [id number] SP [id number] 400 SELF PAY FRANCIS [id number] SP [id number] 400 SELF PAY SELF PAY FRANCIS [id number] SP [id number] 400 SELF PAY FRANCIS [id number] SP [id number] 400 FRANCIS [id number] SP [id number] 400 SELF PAY FRANCIS [id number] SP [id number] 400 SELF PAY FRANCIS [id number] SP [id number] 400 SELF PAY FRANCIS [id number] SP [id number] 400 SELF PAY SELF PAY FRANCIS [id number] SP [id number] 400 FRANCIS [id number] SP [id number] 400 SELF PAY FRANCIS [id number] SP [id number] 400 SELF PAY SELF PAY FRANCIS [id number] SP [id number] 400 FRANCIS [id number] SP [id number] 400 SELF PAY FRANCIS [id number] SP [id number] 400 SELF PAY FRANCIS [id number] SP [id number] 400 SELF PAY FRANCIS [facility] 1 [id number] 1 [id number] FRANCIS [id number] SP [id number] 400 SELF PAY SELF PAY FRANCIS [id number] SP [id number] 400 SELF PAY FRANCIS [id number] SP [id number] 400 FRANCIS [id number] SP [id number] 400 SELF PAY FRANCIS [id number] SP [id number] 400 SELF PAY SELF PAY FRANCIS [id number] SP [id number] 400 SELF PAY FRANCIS [id number] SP [id number] 400 SELF PAY FRANCIS [id number] SP [id number] 400 FRANCIS [id number] SP [id number] 400 SELF PAY FRANCIS [id number] SP [id number] 400 SELF PAY FRANCIS [id number] SP [id number] 400 SELF PAY SELF PAY FRANCIS [id number] SP [id number] 400 SELF PAY FRANCIS [id number] SP [id number] 400 SELF PAY FRANCIS [id number] SP [id number] 400 FRANCIS [id number] SP [id number] 400 SELF PAY FRANCIS [id number] SP [id number] 400 SELF PAY FRANCIS [id number] SP [id number] 400 SELF PAY FRANCIS [id number] SP [id number] 400 SELF PAY FRANCIS [id number] SP [id number] 400 SELF PAY FRANCIS [id number] SP [id number] 400 SELF PAY SELF PAY FRANCIS [id number] SP [id number] 400 SELF PAY FRANCIS [id number] SP [id number] 400 FRANCIS [id number] SP [id number] 400 SELF PAY SELF PAY SELF PAY FRANCIS [id number] SP [id number] 400 FRANCIS [id number] SP [id number] 400 SELF PAY [place] MEDICA[place] [id number] 0 [id number] SELF PAY FRANCIS [id number] SP [id number] 400 FRANCIS [id number] SP [id number] 400 SELF PAY SELF PAY FRANCIS [id number] SP [id number] 400 FRANCIS [id number] SP [id number] 400 SELF PAY FRANCIS [id number] SP [id number] 400 FRANCIS [id number] SP [id number] 400 SELF PAY SELF PAY FRANCIS [id number] SP [id number] 400 SELF PAY FRANCIS [id number] 400 SELF PAY FRANCIS [id number] SP [id number] 400 FRANCIS [id number] SP [id number] 400 SELF PAY SELF PAY FRANCIS [id number] SP [id number] 400 [id number] FRANCIS CARE HEA [id number] S [id number] FR[place]ARE [place] [id number] S [id number] [place] [id number] P [id number] [place] -[place] [id number] 18 [id number] FRANCIS CARE [facility] [id number] S [id number] WELLCARE MEDICARE [id number] Edita [id number] [place] Care [place] Commercial [id number] Self [id number] FRANC[place] CARE [place] [id number] P [id number] TOTAL CARE/TODAYS OPTIONS-WALTER [id number] P [id number] UNAVAILABLE UNAVAILA [facility] MEDICAID HEA [id number] S [id number] [facility] [id number] SP BF [id number] MEDICAID PI PI [facility] [id number] SP [id number] AARP HEALTH CARE OPTIONS [facility] [id number] SP BF [id number] AMERIGROUP O [id number] S [id number] FRANCIS MEDICAID PI PI [facility] [id number] SP [id number] TOTAL CARE MEDICAID/HARO PI PI [facility] O [id number] S BF [id number] [facility] [id number] SP [id number] MEDICAID [id number] SP [id number] [facility] O [id number] S BF [id number] SELF PAY ONLY [id number] SP [id number] [facility] O [id number] S BF [id number] [facility] [id number] BF [id number] SELF PAY ONLY [id number] SP [id number] TODAYS OPTIONS MCR [id number] SP B [id number] HMO/MEDICAID [id number] P [id number] SELFPAY P WALTER PENDING [id number] P [id number] WALTER PENDING [id number] P [id number] [facility] [id number] SP BF [id number] MEDICARE [id number] Patient is Insured [id number] MEDICARE [id number] Patient is Insured [id number] [facility] HEA [id number] S [id number] TOTAL CARE HEA [id number] S [id number] TOTAL CARE [id number] SP [id number] SELF PAY UNAVAILABLE SP UNAVAILA BLE TOTAL CARE UNAVAILABLE SP UNAVAIL ABLE SELF PAY - PENDING UNAVAILABLE SP UNAVAILABLE TOTAL CARE W [id number] S [id number] Medicaid Medicaid [id number] Self Total Care Medicaid UNAVAILABLE UNAVAILABLE Total Care Medicaid [id number] Medicaid ### >07/29/11 Medicaid [id number] Self [facility] [place] [facility] Part B [id number] Self [facility] [place] [id number] SP [id number] [employer]OG TODAYS OPT [id number] SP [id number] MEDICAID GME W [id number] S [id number] T [place] U[place] UNAVAILABLE TOTAL CARE W UNAVAILABLE S UNAVAIL ABLE TOTAL CARE MEDICAID UNAVAILABLE [place] UNAVAILABLE MEDICAID W [id number] S [id number] WELLCARE MEDICARE [id number] Edita 10 [id number] SELF PAY 5 UNAVAILABLE 1 UNAVAILA BLE SELFPAY 5 UNAVAILABLE [id number] 1 UNAVAILA BLE MEDICAID 3 [id number] [facility] MEDICARE 11 [id number] 1 [id number] [facility] MEDICAID 2 [id number] 1 7 [id number] MEDICAID [facility] 3 [id number] 1 [id number] SELF PAY 2 UNAVAILABLE 1 UNAVAILA BLE WELLCARE MEDICARE 11 [id number] 1 [id number] WELLCARE [facility] PLANS O [id number] S [id number] MEDICAID W [id number] S [id number] MEDICAID REF AMBULAT W [id number] S [id number] WELLCARE UNAVAILABLE S UNAVAILA BLE MEDICAID REF AMBULAT W [id number] S [id number] FRANCIS MEDICARE 11 [id number] 1 [id number] Helen Medicare Advantage C1 [id number] FRANCIS/MEDICAID 2 [id number] [facility] MEDICARE 11 [id number] 04 WELLCARE-MEDICARE 11 [id number] Medicaid [id number] [place] [id number] SELF PAY 2 UNAVAILABLE [id number] [place] 3 [id number] T [place] MEDICARE 11 [id number] WELLCARE W [id number] S [id number] WELLCARE HMO O [id number] S [id number] WELLCARE W [id number] S [id number] MEDICARE OUTPATIENT M [id number] S [id number] WELLCARE HLTH PLANS O [id number] S [id number] MEDICAID W [id number] S [id number] WELL CARE W [id number] S [id number] [place] M/M W [id number] S B [id number] WELLCARE HLTH PLANS O [id number] S [id number] SELF PAY 2 UNAVAILABLE [id number] UNAVAILA BLE MEDICAID O [id number] S [id number] [facility] [place] O [id number] S [id number] WELLCARE HLTH PLANS O [id number] S [id number] WELLCARE HLTH PLANS O [id number] S [id number] PCP [facility] O [id number] S [id number] [place] W [id number] S [id number] [place] 3 [id number] [place] W [id number] S [id number] [facility] O [id number] S [id number] [place] O [id number] S [id number] MEDICARE OUTPATIENT M [id number] S [id number] WELL CARE PCP W [id number] S [id number] WELLCARE MEDICARE 11 [id number] FIDELIS MEDICARE 11 [id number] [place] [id number] O UNAVAILABLE UNAVAILA BLE O [id number] O [id number] [facility] [id number] SP [id number] Problems, Conditions, and Diagnoses Code Display Name Description Problem Type Effective Dates Data Source(s) Encounter for observation fo r other suspected diseases and conditions ruled out - Encounter for observation for o ther suspected diseases and conditions ruled out Diagnosis 12/31/2020 01:30:00 PM EDT [facility] R10.9 Unspecified abdominal pain R10.9 - Unspecified abdomin al pain Diagnosis 12/03/2020 02:42:00 PM EDT [facility] R53.83 Other fatigue R53.83 - Other fatigue Diagnosis 09/14 08:50:00 AM EDT [facility] R10.32 Left lower quadrant pain R10.32 - Left lower quadrant pain Diagnosis 10/06/2020 08:01:00 AM EDT [facility] D59.5 Paroxysmal nocturnal hemoglobinuria [Mar chiafava-Micheli] D59.5 - Paroxysmal nocturnal hemoglobinuria [Marchiafava-Micheli] Diagnosis 08/06/2020 08:25:00 AM EDT [facility] I27.82 Chronic pulmonary embolism I27.82 - Chronic pulmonary embolism Diagnosis 08/06/2020 08:25:00 AM EDT [facility] D50.9 Iron deficiency anemia, unspecified D50. 9 - Iron deficiency anemia, unspecified Diagnosis 07/31/2020 03:48:00 PM EDT [facility] Z23 Encounter for immunization Z23 - Encounter for immuniz ation Diagnosis 07/31/2020 03:28:00 PM EDT [facility] KIDNEY STONE PAIN KIDNEY STONE PAIN Diagnosis 07/02/2020 11:44:00 AM EDT [facility] Flank Pain Flank Pain Diagnosis 07/02/2020 11:44:00 AM ED T [facility] Z91.19 Patient's noncompliance with other medic al treatment and regimen Patient's noncompliance with other medical treatment and regimen Diagnosis 07/02/2020 11:44:00 AM EDT [facility] G89.29 Other chronic pain Other chronic pain Diagnosis 11:44:00 AM EDT [facility] R10.9 Unspecified abdominal pain Unspecified abdominal pain Diagnosis 07/02/2020 11:44:00 AM EDT [facility] Z13.9 Encounter for screening, unspecified Encounter f or screening, unspecified Diagnosis 07/02/2020 11:44:00 AM EDT [facility] R10.9 Unspecified abdominal pain Unspecified abdominal pain Diagnosis 06/21/2020 10:41:00 AM EDT [facility] Flank Pain Flank Pain Diagnosis 06/21/2020 10:41:00 AM ED T [facility] kidney stone kidney stone Diagnosis 06/21/2020 10:34:00 A M EDT [facility] R10.9 Unspecified abdominal pain Unspecified abdominal pain Diagnosis 05/21/2020 03:44:32 PM EST [facility] R10.31 Right lower quadrant pain R10.31 - Right lower quadran t pain Diagnosis 03/29/2020 02:25:00 PM EST [facility] R51.9 R51.9 - Headache, unspecified R51.9 - Headache, unspec ified Diagnosis 03/19/2020 03:31:00 PM EST [facility] H92.02 Otalgia, left ear H92.02 - Otalgia, left ear Diagnosis 02/14/2020 03:50:00 PM [facility] R31.9 Hematuria, unspecified R31.9 - Hematuria, unspecified Diagnosis 02/14/2020 03:50:00 PM [facility] M25.511 Pain in right shoulder M25.511 - Pain in right shoulde r Diagnosis 01/12/2020 09:45:00 AM EDT [facility] N10 Acute pyelonephritis Acute pyelonephritis Diagnosis 12/26/2019 08:45:36 AM EDT [facility] S39.91XA Unspecified injury of abdomen, initial e ncounter S39.91XA - Unspecified injury of abdomen, initial encounter Diagnosis 12/19/2019 01:02:00 PM EDT [facility] R51 Headache R51 - Headache Diagnosis 12/14/2019 02:03:00 P M EDT [facility] [id number] Drug seeking behavior Drug seeking behavior Problem 10/18/2020 12:00:00 AM EDT [facility] ([facility]) Note: PER URGENT CARE [id number] Cyst of left ovary Cyst of left ovary Problem 09/13/2020 12:00:00 AM EDT [facility]) Note: left ovary [id number] Persistent insomnia Persistent insomnia Problem 0 04/15/2020 12:00:00 AM EST [facility]) [id number] Generalized anxiety disorder Generalized anxiety disor rufino Problem 04/15/2020 12:00:00 AM EST [facility]) [id number] Major depressive disorder Major depressive disorder Pr oblem 04/13/2020 12:00:00 AM EST [facility]) [id number] H/O: pulmonary embolus H/O: pulmonary embolus Problem [...] VISIT 25 MINUTES 07/26/2020 12:00:00 AM EDT [facility] ([facility]) OFFICE OUTPATIENT VISIT 15 MINUTES 06/26/2020 12:00:00 AM EDT [facility] ([facility]) CT ABDOMEN & PELVIS W/O CONTRAST MATERIAL <td>CT STONE PROTOCOL (A/P WO CONTRAST)</td><td>STAT</td><td>06/21/2020 12:07 PM EDT</td><td></td><td> </td> 06/21/2020 12:07:19 PM EDT [facility] URINALYSIS W/MICROSCOPIC & CULTURE IF INDICATED <td><c ontent ID="[id number]">URINALYSIS W/MICROSCOPIC & CULTURE IF INDICATED</content></td><td>STAT</td><td>06/21/2020 11:52 AM EDT</td><td></td><td><paragraph styleCode="header">Results for this procedure are in the <content styleCode="[id number]">results section</content>.</paragraph></td> 06/21/2020 11:52:00 AM EDT [facility] CBC AND DIFFERENTIAL <td>CBC AND DIFFERENTIAL</td ><td>STAT</td><td>06/21/2020 11:52 AM EDT</td><td></td><td> </td> 06/21/2020 11:52:00 AM EDT [facility] GONADOTROPIN CHORIONIC QUANTITATIVE <td>HCG, QUANTITAT ANDRES, </td><td>STAT</td><td>06/21/2020 11:52 AM EDT</td><td></td><td> </td> 06/21/2020 11:52:00 AM EDT [facility] COMPREHENSIVE METABOLIC PANEL <td>COMPREHENSIVE METABO LIC PANEL</td><td>STAT</td><td>06/21/2020 11:52 AM EDT</td><td></td><td> </td> 06/21/2020 11:52:00 AM EDT [facility] OFFICE OUTPATIENT VISIT 25 MINUTES 06/11/2020 12:00:00 [...] PM EST</td><td></td><td> </td> 05/21/2020 09:14:00 PM EST [facility] POCT CLINITEK URINE HCG <td>POCT CLINITEK URINE HCG</td><td>Routine</td><td>05/21/2020 3:51 PM EST</td><td></td><td> </td> 05/21/2020 08:51:00 PM EST [facility] POCT CLINITEK URINE HCG <td>POCT CLINITEK URINE HCG</td><td>Routine</td><td>05/16/2020 8:07 PM EST</td><td></td><td> </td> 05/17/2020 01:07:00 AM EST [facility] URNLS DIP STICK/TABLET RGNT AUTO W/O MICROSCOPY <td>UR INALYSIS W/O MICRO</td><td>STAT</td><td>05/16/2020 8:05 PM EST</td><td></td><td> </td> 05/17/2020 01:05:00 AM EST [facility] BLOOD COUNT COMPLETE AUTO&AUTO DIFRNTL WBC COUNT <td>C BC AND DIFFERENTIAL</td><td>STAT</td><td>05/16/2020 8:05 PM EST</td><td></td><td> </td> 05/17/2020 01:05:00 AM EST [facility] MAGNESIUM <td>MAGNESIUM</td><td>STAT</ td><td>05/16/2020 8:05 PM EST</td><td></td><td> </td> 05/17/2020 01:05:00 AM EST [facility] COMPREHENSIVE METABOLIC PANEL <td>COMPREHENSIVE METABO LIC PANEL</td><td>STAT</td><td>05/16/2020 8:05 PM EST</td><td></td><td> </td> 05/17/2020 01:05:00 AM EST [facility] OFFICE OUTPATIENT VISIT 15 MINUTES 04/30/2020 12:00:00 AM EST [facility] OFFICE OUTPATIENT VISIT 15 MINUTES 04/30/2020 12:00:00 AM EST [facility] ([facility]) OFFICE OUTPATIENT NEW 30 MINUTES 04/13/2020 12:00:00 A M EST [facility] ([facility]) POCT CLINITEK URINE HCG <td>POCT CLINITEK URINE HCG</td><td>Routine</td><td>01/15/2020 9:38 AM EST</td><td></td><td> </td> 01/15/2020 02:38:00 PM EST [facility] URINE CULTURE HOLD SPECIMEN <td>URINE CULTURE HOLD SPECIMEN</td><td>STAT</td><td>01/15/2020 9:37 AM EST</td><td></td><td> </td> 01/15/2020 02:37:00 PM EST [facility] URNLS DIP STICK/TABLET RGNT AUTO W/O MICROSCOPY <td>UR INALYSIS W/O MICRO</td><td>STAT</td><td>01/15/2020 9:37 AM EST</td><td></td><td> </td> 01/15/2020 02:37:00 PM EST [facility] BLOOD COUNT COMPLETE AUTO&AUTO DIFRNTL WBC COUNT <td>C BC AND DIFFERENTIAL</td><td>STAT</td><td>01/15/2020 8:50 AM EST</td><td></td><td> </td> 01/15/2020 01:50:00 PM EST [facility] LIPASE <td>LIPASE</td><td>STAT</td> <td>01/15/2020 8:50 AM EST</td><td></td><td> </td> 01/15/2020 01:50:00 PM EST [facility] COMPREHENSIVE METABOLIC PANEL <td>COMPREHENSIVE METABO LIC PANEL</td><td>STAT</td><td>01/15/2020 8:50 AM EST</td><td></td><td> </td> 01/15/2020 01:50:00 PM EST [facility] Results ID Date Data Source [id number] 01/26/2021 06:24:07 PM EST [facility] Note Status: FINAL (SIGNED)Full Name: Kade JONES Date: 1985Visit ID: [id number] Record Number: [id number]: 35YSex: FemaleRoom Location: ER ROOMSBed Location: ER 7Date of Service: 01/26/2021 10:04Creation Date: 01/26/2021 10:04Created By[facility] Phys[facility]: FORTUNATO CONTRERASTime patient first seen: [...] abdomen/pelvis studies within the past month at [facility].Progress time 2: 1200 Progress comments 2: [...] rce(s) Supporting Document(s) ID Date Data Source [id number] 01/26/2021 12:07:00 PM EST [facility] Name Value Range Interpretation Code Description Data Victoria rce(s) Supporting Document(s) SERUM TEST NEGATIVE [place] [facility] PREGS METHODOLOGY [facility] ID Date Data Source [id number] 01/26/2021 12:02:00 PM EST [facility] Name Value Range Interpretation Code Description Data Victoria rce(s) Supporting Document(s) AMYLASE 43 U/L 25-[address] [facility] ID Date Data Source [id number] 01/26/2021 12:02:00 PM EST [facility] Name Value Range Interpretation Code Description Data Victoria rce(s) Supporting Document(s) LIPASE 17 U/L 8-[address] [facility] ID Date Data Source [id number] 01/26/2021 12:02:00 PM EST [facility] CMP Name Value Range Interpretation Code Description Data Victoria rce(s) Supporting Document(s) SODIUM 137 mmol/L 136-[address] [facility] POTASSIUM 3.8 mmol/L 3.5-5.[address] [facility] CHLORIDE 105 mmol/L 100-[address] [facility] CO2 23 mmol/L 21-[address] [facility] GLUCOSE 86 mg/dL 70-[address] [facility] BUN 11 mg/dL 7-[address] [facility] CREATININE 0.6 mg/dL 0.6-1.[address] [facility] Normal Kidney Function or Mild Disease - GFR >OR= 60Chronic Kidney Disease - GFR 15-59Renal Failure - GFR < 15GFR not calculated on patients under 18 years of age. CALCIUM 9.4 mg/dL 8.5-10.[address] [facility] GFR >[address] [facility] T BILI 0.4 mg/dL 0.0-1.[address] [facility] T PROTEIN 7.2 gm/dL 6.4-8.[address] [facility] ALBUMIN 3.9 gm/dL 3.4-4.[address] [facility] ALK PHOS 106 U/L 40-[address] [facility] ALT (SGPT) 40 U/L 0-[address] [facility] AST (SGOT) 37 U/L 5-[address] [facility] ID Date Data Source [id number] 01/26/2021 11:54:00 AM EST [facility] CBC WITH DIFF Name Value Range Interpretation Code Description Data Victoria rce(s) Supporting Document(s) WBC 8.1 K/uL 4.8-10.[address] [facility] RBC 4.18 M/uL 4.20-5.[address] [facility] HEMOGLOBIN 13.8 gm/dL 12.0-16.[address] [facility] HEMATOCRIT 39.5 % 36.0-48.[address] [facility] MCV 94.5 fL 80.0-100.[address] [facility] MCHC 34.8 % 30.0-36.[address] [facility] MCH 32.9 pg 27.0-34.[address] [facility] RDW 12.1 % 11.0-15.[address] [facility] PLATELET 304 K/uL 130-[address] [facility] MPV 6.8 fL 6.0-12.[address] [facility] NE% 66 % 37-[address] [facility] LY% 27 % 10-[address] [facility] MO% 6 % 0-[address] [facility] Eosinophils [#/volume] in Blood by Automated count 1 % <=[address] [facility] BA% 0 % <=[address] [facility] NE# 5.3 K/uL 1.8-8.[address] [facility] LYMPH# 2.2 K/uL 0.5-5.[address] [facility] MONO# 0.5 K/uL 0.0-1.[address] [facility] EOS# 0.1 K/uL 0.0-0.[address] [facility] BASO# 0.0 K/ul 0.0-0.[address] [facility] ID Date Data Source [id number] 01/17/2021 07:16:00 PM EDT [facility] Name Value Range Interpretation Code Description Data Victoria rce(s) Supporting Document(s) Laboratory test finding (navigational concept) Laboratory test result [facility] <content>QUANTITATIVE RESULT QU ALITATIVE INTERPRETATION</content>
<content> </content>
<content><5.0 IU/L NEGATIVE</content>
<content>5.0 - 25.0 IU/L INDETERMINATE</content>
<content>>25.0 IU/L POSITIVE</content>
<content></content> ID Date Data Source [id number] 01/17/2021 07:11:00 PM EDT [facility] ([facility]) Name Value Range Interpretation Code Description Data Victoria rce(s) Supporting Document(s) Laboratory test finding (navigational concept) 39.0 % 38.0-51.0 [facility] ([facility]) Laboratory test finding (navigational concept) 85 mg/dL 70-105 [facility] ([facility]) Laboratory test finding (navigational concept) 140 meq/L 136-145 [facility] ([facility]) Laboratory test finding (navigational concept) 3.8 meq/L 3.5-5.1 [facility] ([facility]) Laboratory test finding (navigational concept) 105 meq/L 98-109 [facility] ([facility]) Laboratory test finding (navigational concept) 4.8 mg/dL 4.5-5.3 [facility] ([facility]) Laboratory test finding (navigational concept) 24.0 MM/L 23.0-27.0 [facility] ([facility]) Laboratory test finding (navigational concept) 13 mg/dL 8-26 [facility] ([facility]) Laboratory test finding (navigational concept) 0.7 mg/dL 0.6-1.3 [facility] ([facility]) ID Date Data Source [id number] 01/17/2021 07:01:00 PM EDT [facility] Name Value Range Interpretation Code Description Data Victoria rce(s) Supporting Document(s) SARS coronavirus 2 RNA [Presence] in Res piratory specimen by WILLIAN with probe detection NEGATIVE [place] This lab was ordered by [facility] a nd reported by [facility]. ID Date Data Source [id number] 01/17/2021 07:01:00 PM EDT [facility] ([facility]) Name Value Range Interpretation Code Description Data Victoria rce(s) Supporting Document(s) Lipase [Enzymatic activity/volume] in Serum or Plasma 93 U/L 73-3 93 [facility] ([facility]) Coronavirus 2019 Nasopharygeal Laboratory test result [facility] ([facility]) Laboratory test finding (navigational concept) Laboratory test result [facility] ([facility]) A false negative result may occur if [...] pathogens. DISCLAIMER: Testing was performed using the [employer] SARS-CoV-2 test. This test was developed and its performance characteristics determined by [employer]. This test has not been FDA cleared [...] or revoked sooner. ID Date Data Source [id number] 01/17/2021 07:01:00 PM EDT [facility]) Name Value Range Interpretation Code Description Data Victoria rce(s) Supporting Document(s) Alt/SGPT 49 U/L 12-78 [facility]) Ast/Sgot 33 U/L 7-37 [facility] ([facility]) Bilirubin,Total 0.3 mg/dL 0.2-1.0 [facility] ([facility]) Alkaline Phosphatase 106 U/L 45-117 [facility] ([facility]) Bilirubin,Direct Laboratory test result 0.0-0.2 [facility] ([facility]) Total Protein 7.0 GM/DL 6.4-8.2 [facility]) Albumin 3.5 GM/DL 3.2-5.2 [facility] ([facility]) Albumin/Globulin Ratio 1.0 1.2-2.2 Below low normal [facility] ([facility]) ID Date Data Source [id number] 01/17/2021 07:01:00 PM EDT [facility] ([facility] [...] % 24.0-44.0 [facility] ([facility]) [place] % 6.8 % 2.0-8.0 [facility]) Eos % 1.3 % 0.0-3.0 [facility]) Immature Granulocyte % 0.8 % 0-3.0 [facility] ([facility]) Baso % 0.4 % 0.0-1.0 [facility]) Nucleated Red Blood Cell % 0.0 % 0-0 [facility] ([facility]) Neutrophils # 4.8 10 1.5-8.5 [facility]) [place] # 0.6 10 0.0-0.8 [facility]) Lymph # 3.0 10 1.5-5.0 [facility]) Eos # 0.1 10 0.0-0.5 [facility]) Baso # 0.0 10 0.0-0.2 [facility] ([facility]) ID Date Data Source [id number] 12/24/2020 05:52:00 PM EDT [facility]) Name Value Range Interpretation Code Description Data Victoria rce(s) Supporting Document(s) Laboratory test finding (navigational concept) Laboratory test result [facility] ([facility]) <content>QUANTITATIVE RESULT QU ALITATIVE INTERPRETATION</content>
<content> </content>
<content><5.0 IU/L NEGATIVE</content>
<content>5.0 - 25.0 IU/L INDETERMINATE</content>
<content>>25.0 IU/L POSITIVE</content>
<content></content> ID Date Data Source [id number] 12/24/2020 05:44:00 PM EDT [facility] ([facility] [...] ([facility]) ID Date Data Source [id number] 12/24/2020 05:38:00 PM EDT [facility] ([facility] [...] % 36.0-66.0 [facility] ([facility]) [place] % 6.3 % 2.0-8.0 [facility] ([facility] [...] 10 1.5-5.0 [facility]) [place] # 0.5 10 0.0-0.8 [facility] ([facility]) Eos # 0.1 10 0.0-0.5 [facility] ([facility]) Baso # 0.0 10 0.0-0.2 [facility] ([facility]) ID Date Data Source [id number] 12/24/2020 05:38:00 PM EDT [facility]) Name Value Range Interpretation Code Description Data Victoria rce(s) Supporting Document(s) Ast/Sgot 43 U/L 7-37 Above high normal [facility] ([facility]) Bilirubin,Total 0.3 mg/dL 0.2-1.0 [facility] ([facility]) Alt/SGPT 56 U/L 12-78 [facility]) Alkaline Phosphatase 114 U/L 45-117 [facility] ([facility]) Bilirubin,Direct 0.1 mg/dL 0.0-0.2 [facility] ([facility]) Total Protein 7.3 GM/DL 6.4-8.2 [facility] ([facility]) Albumin 3.6 GM/DL 3.2-5.2 [facility] ([facility]) Albumin/Globulin Ratio 1.0 1.2-2.2 Below low normal [facility] ([facility]) ID Date Data Source [id number] 12/24/2020 05:38:00 PM EDT [facility] ([facility]) Name Value Range Interpretation Code Description Data Victoria rce(s) Supporting Document(s) Lipase [Enzymatic activity/volume] in Serum or Plasma 101 U/L 73-3 93 [facility] ([facility]) ID Date Data Source [id number] 12/24/2020 05:38:00 PM EDT [facility] ([facility]) Name Value Range Interpretation Code Description Data Victoria rce(s) Supporting Document(s) Reflex Urine Culture Laboratory test result [facility] ([facility]) FULL REPORT IN LAB NOTES (eCW and [facility] ). SPECIMEN APPEARS CONTAMINATED ID Date Data Source [id number] 12/24/2020 05:38:00 PM EDT [facility] ([facility]) Name Value Range Interpretation Code Description Data Victoria rce(s) Supporting Document(s) Appearance, Urine RFX Laboratory test result Above high no rmal [facility] ([facility]) PH,Urine RFX 5.0 units 5.0-9.0 [facility] ([facility]) Color, Urine RFX Laboratory test result [facility] ([facility]) Specific [place] Ur Auto RFX 1.015 1.002-1.035 [facility] ([facility]) Protein, Urine Auto RFX Laboratory test result Above high normal [facility] ([facility]) Ketone, Urine Auto RFX Laboratory test result [facility] ([facility]) Glucose, Urine (Ua) Auto RFX Laboratory test result [facility] ([facility]) Bilirubin, Urine Auto RFX Laboratory test result [facility] ([facility]) Urobilinogen, Urine Auto RFX 0.2 mg/dL 0.0-2.0 [facility] ([facility]) Leukocyte Esterase Ur Auto RFX Laboratory test result Abov e high normal [facility] ([facility]) Nitrite, Urine Auto RFX Laboratory test result [facility] ([facility]) Blood, Urine Blood RFX Laboratory test result Above high n ormal [facility] ([facility]) WBC, Urine Auto RFX 31 /HPF 0-3 Above high normal [facility] ([facility]) RBC, Urine Auto RFX Laboratory test result 0-3 Above high norm al [facility] ([facility]) Bacteria, Urine Auto RFX Laboratory test result Above high normal [facility] ([facility]) Squam Epithelial Cell Ur Aurfx 15 /HPF 0-6 [facility] ([facility]) Hyaline Cast, Urine Auto RFX 0 /LPF 0-1 [facility] ([facility]) Mucus, Urine RFX Laboratory test result [facility] ([facility]) ID Date Data Source [id number] 12/12/2020 02:57:20 PM EDT [facility] Note Status: FINAL (SIGNED)Full Name: Kade JONES Date: 1985Visit ID: [id number] Record Number: [id number]: 35YSex: FemaleRoom Location: ER ROOMSBed Location: ER TQ3Ctvl of Service: 12/06/2020 17:50Creation Date: 12/06/2020 17:50Created [...] Urine Turbidity;HAZY;;;Final Result ;12/06/2020 18:59:10URINALYSIS ROUTINE;Dipstick Specific [place];1.020;(1.000-1.030);;Final Result ;12/06/2020 18:59:10URINALYSIS ROUTINE;Dipstick Urine pH;5.0;(5.0-8.0);;Final Result [...] cot. She agrees to follow-up with her [facility] neurologist. Patient states she is well enough to go home with discharge. Right is to discharge her home with primary care and urology follow-up. She agrees to this plan.Diagnosis: Acute flank and abdominal painDiagnosis level 2Disposition time: 2100 Discharge condition: StableDischarge plan: Patient requested to be discharged home and will follow up with her [place] based urologistDisposition: homePatient did not require critical care timeMidlevel signature: MAIKEL PERALTA NPMidselect medical [facility] signature date: 12/10/2020 10:35Attending Physician Attestation: I have reviewed the midlevel documentation, agree with the documentation, medical decision making and treatment plan as outlined by the midlevelPhysician signature: BERNABE Michelle KUMAR signature date: 12/12/2020 14:55 Name Value Range Interpretation Code Description Data Victoria rce(s) Supporting Document(s) ID Date Data Source [id number] 12/06/2020 08:15:08 PM EDT [facility] Note Status: FINAL (SIGNED)Full Name: Kade JONES Date: 1985Visit ID: [id number] Record Number: [id number]: 34YSex: FemaleRoom Location: ER ROOMSBed Location: ER BD 12Date of Service: 08/15/2020 16:05Creation Date: 08/15/2020 16:05Created By[facility] Physician: FORTUNATO CONTRERASTime patient first seen: [...] her first appointment with a urologist here [place].~~Review of SystemsAll systems reviewed and negative except [...] Urine Turbidity;HAZY;;;Final Result ;08/15/2020 16:44:00URINALYSIS ROUTINE;Dipstick Specific [place];1.025 ;(1.000- 1.030);;Final Result ;08/15/2020 16:44:00URINALYSIS ROUTINE;Dipstick Urine [...] Echogenic hepatic parenchyma suggesting steatosis.~~~IMPRESSION:~~No hydronephrosis.~~END OF IMPRESSION~~[facility] submits Radiology results to [facility] and~[facility] then provides those same results to [facility]. All~results are available to [facility] and [facility] provider portal~users. [facility] DICOM images are available to the~[facility] provider portal users only. [facility] DICOM~images are not available to the [facility] provider portal users. There is~no current [facility] cross-[facility] functionality allowing images to be available through~the [facility] to [facility] connectivity.~Electronically signed By: Scottie Vazquez MD~~Read [...] Name Value Range Interpretation Code Description Data [facility] rce(s) Supporting Document(s) ID Date Data Source [id number] 12/06/2020 07:37:00 PM EDT [facility] Name Value Range Interpretation Code Description Data [facility] rce(s) Supporting Document(s) LIPASE 20 U/L 8-[address] [facility] ID Date Data Source [id number] 12/06/2020 07:37:00 PM EDT [facility] Name Value Range Interpretation Code Description Data [facility] rce(s) Supporting Document(s) AMYLASE 45 U/L 25-[address] [facility] ID Date Data Source [id number] 12/06/2020 07:37:00 PM EDT [facility] CMP Name Value Range Interpretation Code Description Data Victoria rce(s) Supporting Document(s) SODIUM 137 mmol/L 136-[address] [facility] POTASSIUM 3.7 mmol/L 3.5-5.[address] [facility] CHLORIDE 104 mmol/L 100-[address] [facility] CO2 21 mmol/L 21-[address] [facility] GLUCOSE 86 mg/dL 70-[address] [facility] BUN 13 mg/dL 7-[address] [facility] CREATININE 0.8 mg/dL 0.6-1.[address] [facility] Normal Kidney Function or Mild Disease - GFR >OR= 60Chronic Kidney Disease - GFR 15-59Renal Failure - GFR < 15GFR not calculated on patients under 18 years of age. CALCIUM 10.2 mg/dL 8.5-10.[address] [facility] GFR >[address] [facility] T BILI 0.5 mg/dL 0.0-1.[address] [facility] T PROTEIN 7.4 gm/dL 6.4-8.[address] [facility] ALBUMIN 4.1 gm/dL 3.4-4.[address] [facility] ALK PHOS 104 U/L 40-[address] [facility] ALT (SGPT) 47 U/L 0-[address] [facility] AST (SGOT) 40 U/L 5-[address] [facility] ID Date Data Source [id number] 12/06/2020 07:32:00 PM EDT [facility] Name Value Range Interpretation Code Description Data Victoria rce(s) Supporting Document(s) SERUM TEST NEGATIVE [facility] spital PREGS METHODOLOGY [facility] denise ID Date Data Source [id number] 12/06/2020 07:27:00 PM EDT [facility] Name Value Range Interpretation Code Description Data Victoria rce(s) Supporting Document(s) PTT 32.0 sec 25.6-36.[address] [facility] ID Date Data Source [id number] 12/06/2020 07:24:00 PM EDT [facility] Name Value Range Interpretation Code Description Data Victoria rce(s) Supporting Document(s) PROTIME 12.3 sec 9.4-12.[address] [facility] INR 1.[address] [facility] INR INTERPERTATION 2.0 -3.0 THERAPEUTIC MONITORING2.5-3.5 HEART VALVE REPLACEMENT ID Date Data Source [id number] 12/06/2020 07:24:00 PM EDT [facility] CBC WITH DIFF Name Value Range Interpretation Code Description Data Victoria rce(s) Supporting Document(s) WBC 9.7 K/uL 4.8-10.[address] [facility] RBC 4.08 M/uL 4.20-5.[address] [facility] HEMOGLOBIN 13.5 gm/dL 12.0-16.[address] [facility] HEMATOCRIT 39.0 % 36.0-48.[address] [facility] MCV 95.5 fL 80.0-100.[address] [facility] MCHC 34.7 % 30.0-36.[address] [facility] MCH 33.1 pg 27.0-34.[address] [facility] RDW 12.2 % 11.0-15.[address] [facility] PLATELET 266 K/uL 130-[address] [facility] MPV 7.0 fL 6.0-12.[address] [facility] NE% 65 % 37-[address] [facility] LY% 27 % 10-[address] [facility] MO% 6 % 0-[address] [facility] Eosinophils [#/volume] in Blood by Automated count 1 % <=[address] [facility] BA% 0 % <=[address] [facility] NE# 6.3 K/uL 1.8-8.[address] [facility] LYMPH# 2.6 K/uL 0.5-5.[address] [facility] MONO# 0.6 K/uL 0.0-1.[address] [facility] EOS# 0.1 K/uL 0.0-0.[address] [facility] BASO# 0.0 K/ul 0.0-0.[address] [facility] ID Date Data Source [id number] 12/09/2020 09:01:00 AM EDT [facility] CULTURE OBSERVATIONS 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 [facility] RBC 5-10 /HPF NONE SEEN ! [facility] [employer] has definedMicroscopic Hematuria as 3 or more RBC per highpowered field from a single positive urinalysis withmicroscopy. BACTERIA MANY /HPF NONE SEEN ! [facility] EPITHELIAL CELLS MODERATE /HPF NONE SEEN ! [facility] spital ID Date Data Source [id number] 12/06/2020 07:17:00 PM EDT [facility] Name Value Range Interpretation Code Description Data Victoria rce(s) Supporting Document(s) COLOR LUIS M [facility] APPEARANCE HAZY CLEAR ! [facility] SPECIFIC GRAVITY 1.020 1.000-1.030 [facility] ital pH 5.0 5.0-8.[address] [facility] LEUKOCYTES 2+ NEGATIVE ! [facility] NITRATE NEGATIVE NEGATIVE [facility] PROTEIN 100 [ 2+] mg/dL NEGATIVE ! [facility] l GLUCOSE NORMAL mg/dL NORMAL [facility] KETONE NEGATIVE mg/dL NEGATIVE [facility] UROBILINOGEN NORMAL mg/dL NORMAL [facility] l BILIRUBIN NEGATIVE mg/dL NEGATIVE [facility] HEMOGLOBIN 3+ NEGATIVE ! [facility] ID Date Data Source [id number] 12/06/2020 08:55:58 PM EDT [facility] 12/06/2020 8:18 PMRENAL ULTRASOUNDCLINICA L INFORMATION: [...] Resident's/Fellow'sinterpretation and agree with or edited the findings.[facility] submits Radiology results to [facility] then provides those same results to [facility]. Allresults are available to [facility] and [facility] provider portalusers. [facility] DICOM images are available to [facility] provider portal users only. [facility] DICOMimages are not available to the [facility] provider portal users. There isno current [facility] cross-RHIO functionality allowing images to be available throughthe IO to [facility] connectivity.Interpreted By: Sierra Trivedi MDElectronically signed By: León Butler M.D.Read By: LEÓN PELAEZate: 12/06/2020 20:52 Name Value Range Interpretation Code Description Data Victoria rce(s) Supporting Document(s) ID Date Data Source [id number] 12/03/2020 07:38:00 [place] [address] HEALTH INFORMATION MANAGEMENT ED/UC Physician Report : [id number] Signed Patient: Taniya Field Acct:[id number] Unit: M [id number] : 1985 Arrival Date: 12/03/20 Age/Sex: 35 [...] States that she has not tried any yhdo-psx-vazovzn medications for symptoms prior to coming to [...] Normal Affect Skin Skin exam: Dry, Intact, [place] and Warm Course Vital Signs Vital signs: Vital Signs 12/03/20 14:59 Temperature 98.4 F Pulse Rate 103 H Respiratory Rate 18 Blood Pressure 158/70 H O2 Sat by Pulse Oximetry 98 Medical Decision Making/CCT Lab Data Labs: Lab Results 12/03/20 Range/Units 14:44 Urine Color RED H (YELLOW) Urine Appearance CLOUDY H (CLEAR) Urine pH 6.0 (5.0- 8.0) Specific [place] (Man) 1.014 (1.002-1.035) Urine Protein 100 H [...] <<Signature on File>> Initializing User: Elvira Max [facility] 12/03/201937 Signed by: Elvira Max [facility] 12/03/202026 Phani Calvillo DO 12/03/202216 Name Value Range Interpretation Code Description Data Victoria rce(s) Supporting Document(s) ID Date Data Source [id number] 12/03/2020 03:17:00 PM EDT [facility] Name Value Range Interpretation Code Description Data Victoria rce(s) Supporting Document(s) COLOR,UR RED YELLOW A [facility] APPEARANCE,UR CLOUDY CLEAR A [facility] PH,UR 6.0 5.0-8.0 [facility] SPECIFIC GRAVITY,UR 1.014 1.002-1.035 [facility] PROTEIN,UR 100 MG/DL NEGATIVE A [facility] GLUCOSE, UR NEGATIVE MG/DL NEGATIVE [facility] KETONES,UR NEGATIVE MG/DL NEGATIVE [facility] OCCULT BLOOD,UR LARGE NEGATIVE A [facility] NITRATE,UR NEGATIVE NEGATIVE [facility] LEUKOCYTE ESTERASE ,UR TRACE NEGATIVE A [facility] BILIRUBIN,UR NEGATIVE NEGATIVE [facility] UROBILINOGEN,UR 0.2-1.0 EU MG/DL NEG-0-1.0 [facility] RBC,UR >100 PER HPF 0-2 A [facility] URINE EPITH MANY PER/LPF FEW-MOD [facility] BACTERIA,UR RARE PER HPF NONE [facility] MUCUS,UR RARE PER HPF NONE SEEN [facility] ID Date Data Source [id number] 12/03/2020 02:44:00 PM EDT [facility] ([facility] [...] ([facility]) ID Date Data Source [id number] 11/22/2020 01:38:00 PM EDT [facility] Name Value Range Interpretation Code Description Data Victoria rce(s) Supporting Document(s) SARS-CoV-2 RNA Pnl Spec WILLIAN+probe NEG [facility] This lab was ordered by [facility]PT, EOU (OPD) and reported by [facility]. ID Date Data Source [id number] 11/01/2020 12:25:00 PM EDT [facility] ([facility]) Name Value Range Interpretation Code Description Data Victoria rce(s) Supporting Document(s) Laboratory test finding (navigational concept) Laboratory test result [facility] ([facility]) ID Date Data Source [id number] 11/01/2020 12:07:00 PM EDT [facility] ([facility]) Name Value Range Interpretation Code Description Data Victoria rce(s) Supporting Document(s) Glucose [Mass/volume] in Capillary blood by Glucometer 91 [facility] ([facility]) ID Date Data Source [id number] 10/30/2020 03:53:00 PM EDT [facility] ([facility]) Name Value Range Interpretation Code Description Data Victoria rce(s) Supporting Document(s) Laboratory test finding (navigational concept) Laboratory test result [facility] ([facility]) <content>QUANTITATIVE RESULT QU ALITATIVE INTERPRETATION</content>
<content> </content>
<content><5.0 IU/L NEGATIVE</content>
<content>5.0 - 25.0 IU/L INDETERMINATE</content>
<content>>25.0 IU/L POSITIVE</content>
<content></content> ID Date Data Source [id number] 10/30/2020 03:26:00 PM EDT [facility] ([facility]) Name Value Range Interpretation Code Description Data Victoria rce(s) Supporting Document(s) Lipase [Enzymatic activity/volume] in Serum or Plasma 105 U/L 73-3 93 [facility] ([facility]) ID Date Data Source [id number] 10/30/2020 03:26:00 PM EDT [facility] ([facility]) Name Value Range Interpretation Code Description [...] Little GFR Left</content>
<content>ESRD GFR <15 on HAZARD WASTE HANDLER</content>
<content></content> Potassium Serum 3.8 meq/L 3.5-5.1 [facility] ([facility]) Chloride Level 108 meq/L 98-107 Above high normal [facility] ([facility]) Carbon Dioxide Level 26 meq/L 21-32 [facility] ([facility]) Calcium Level 8.9 mg/dL 8.5-10.1 [facility] ([facility]) Anion Gap 5 meq/L 8-16 Below low normal [facility] ( [facility]) ID Date Data Source [id number] 10/30/2020 03:26:00 PM EDT [facility] ([facility] [...] ([facility]) ID Date Data Source [id number] 10/30/2020 03:26:00 PM EDT [facility] ([facility] [...] 330 10 150-450 [facility] ([facility]) [place] % 5.9 % 2.0-8.0 [facility] ([facility]ionat e [...] 10 1.5-8.5 [facility] ([facility]) [place] # 0.6 10 0.0-0.8 [facility] ([facility]) Eos # 0.1 10 0.0-0.5 [facility] ([facility]) Baso # 0.0 10 0.0-0.2 [facility] ([facility]) ID Date Data Source [id number] 10/29/2020 01:00:00 PM EDT [facility] Name Value Range Interpretation Code Description Data Victoria rce(s) Supporting Document(s) First [facility] KZILGk7bQiUUHtTiTEAdRsdBDKlgKCglPPElU0H5NVucXy4GALortqFoGPJzGo7+QUZtGE5dnq1fOVCd gMy 7lDCNfFelpB8NmXTLjx12EMIAhXMfKCmHmCwAqPDG3JIKyElFoWGA4KeSnSeytWN4uFIV8ZPQoAXbdRZ ZvKMcaMyNiBqYkHX4oIEkjZTjsWo6NFE0wk7VcMVNsWXSdKogSEPhoWWpcXAPpNGQzKDSfY606gbQjMN 2PvJGmVKm5DEYtIxJ1LJNjWhJ3RXYxMjJhApAvHPUd W9Sdh884hoUykcK7PN5TG8OoJLP2YQl4A8ujQlVfRTIbRWEuDW3oPgS1DVFnFm9CqIjbHYEvWENqVy6L rKh0YWG8SFIyKp1+Pj4+Gk1sriZrXwlCSDPvKE7dow80BX8MkDEmDY0WAMqsB11tGWgyFh55SNnjXLFu JnDbOXf9Ai7aLpPcr2WdA3JlCLu0M2nDBsqdR4JcHA aeKV3fKAW8VKFkFr0+Am1jUKGnAP40DFYoSYQLY0MjogTtnyQrAEl5ATMlIq5+Fw6zefCqExtHSWXxJV 8vnj93DS0VAH5icOhvPpI5QQMgS57crTWwV5fgUkKfY8JohFevTEFeBA5uH0EeYSnrKLZaAJ6yzjNluN 7HvZy3FBSaSe0UdNT2DYFjN15dPFQgYCWFUFJvv1Gf IS6Sz4tnyqZdMLQrOP2RLAGhY9QUM6VmB9qdyLcuPQFnJN7VFAjqpZCwXBj7YE4QsUDqVWGaL46hkX9d LL17BZa+DrS3kqImnO6RgBfaePOPTG/868cny3RrB4cda35GfOUQ3IE4g0NuYdJJdDhOJ9Gc2I3fAxzA +bzefBaFf7dg1TVy0EjCs6L5wez73/p55V0Jf41d1f 47aSd6f8PYSuD3DL6EYA4TEV9XVC3BNk4IhtNKWafDl7rmXQ9dODgGDGW8IQIwOprz1Lh2mbsREcR25V w8/Iw6VOyoIxM19dv1/Lz/xaRBWoXTXfjsCQjEcKqZdi18W86x9OU4rJN3zVkvcRdRXOpYFKvSh44FRV ONzZHtpnQ4B8VYRUKJLRPDt3VD+cam3PXCSNZJHOCD [file] /PARTITION ASSEMBLER+APhkSyGnDITCYT1PL21QW5x6Mi3jJgB4p3D/NS9G22zrncN5q46zbmm1CxjOuYzBoEtUZXqHUxg [file] G4PZ+OM641zhahgxDCF0jj23tHaR4GLp/hFCYv/guest experience specialist [file] Yz599ukra3IKqhcho/HfAcbnimVsqAW68GZsZ/aobx xRA+ekzHladiZKUm1VnxZAoaPDPVoJeN08w5NDvXXKOU2KDezpeQcdcRfQoZOhQ43Nr+uDLTc6MW/Ikp jU9n0AizMzUiW87qko+uLmR2x1fpq3eLg9X+rBk8HCsUcv2rz5fqi/XDTmbFqHyBY6nKvk6ag6imDZKS aXelYQi80ATGj0FMjw54F0FTV+Y+z0n4GgYi4nYhR7 lGea4sa2CvmMSrgum2epaJkHl+qcJs4tuJ04cXItmZLe8I1ZVDiA4gtQYCT92xoEK00+gRIj9b3gjk5+ Inrmw3Wi4oD+/0kDO04VRXy3QkMiOVfwwQeoDpdNbhPlE6wU8EflASWcK2lv3g/sDD74ChU45R GwihumIRwlkYE9zAE8yDC5s3DZYWBM/HicpvRfeIxH /9uOp+7KrhedE8yB1D2jvzcbua3i1Dt2baGH4A0MkCWTGtb/Ixs+NZrloC6L+rdLdaFp7lcgpAkxIGo2 03epBc6GmqUzlvgSf2ETLSpaQ5WwYYuLeDZppITTPCGnPk9LCiqgYb4RPob+3qwHdpfsYUetVwtCKFoi +1ce8553o1bDkVQOyxRySo+98lDCW+F8pQwSKxH3wY eAlgQ2C4ejk/gpzEFhxpVKBnxZo183B/4wSdkyhauTzl4RsbAZx+bEF+f3ymPl+PeMHL6H+hiZwRgpCf Suction Worker/wf2vYSJkdjPYNTeZDiUPCExL6ykwmFaUtdDf+5SPFLn64qwLEoqMk3MEqIZYqT6DO8stA4yETMlTd [file] [place]/rxNiQlQojZqa6SJxme5wb9GOVd9y5aKeP0QTiEUChAID5jIzoTucf31V/oC5UhUy76wtVJCmKoNa8 [file] mscgwKJ/director biostatistics+kBE50D9J4NPzrUsyqv9DQ6C0kirVwl2duas3LQ5nqTVdnmadLpkEhXvckg6kAjV8vf0Q [file] EhoTfAZqdXTrKRfcii7QQ3by5QfY+LyACl1nNKqVDQvA2kZuZeW+3xuz2kZ6P2dJe6VXn9LN3yOQ5/DATA ENTRY SUPERVISOR [file] L/Swwf89XE+Ukel/6ArNu2vu7VwppEfXJOTYSw++Inés/ngP6KNu8yap1poEPH631li5FPnBlpxQm+PbT [file] 6/Suction Worker+lGPdczQAgte9702vILlLvvSxYm4zYqhzBg/MY [file] p5/PEDRO [file] 4EX/DATA ENTRY SUPERVISOR/oswI8rzS2cEhoH/l0fqJ1gPxYF3j01h65OG [file] wT5B2VgKvfsoeRKAY8fpEmwBl7oziqScOIP9PI8zyyYE2fIAI0i4yMm4ntt5g7nWiabGqOYiE7wj/PRINT BINDING AND FINISHING WORKER [file] [facility]/dwNTy05AU3IAGXbNPCiFZIyPmJbF32vIXH9MxPjVNdFC1pPia4YqLtGcxTp8+v+tWD4XafN0od [file] kwpLq3Zduaddje2pfZiybdz93jBAq38ASD2oWvhoF8LB4vgpQR6uSunEIr0NmncuLkv4OLdtIxy5+epilepsy physician [file] zOWjCv9MHUFaFsq2Mz0TMPKEL4Z= ID Date Data Source [id number] 10/07/2020 02:12:50 AM EDT [facility] Note Status: FINALFull Name: BILLY FIELD Date: 1985Visit ID: [id number] Record Number: [id number]: 34YSex: FemaleRoom Location: ER ROOMSBed Location: ER [...] require critical care timeMidlevel signature: EDGARDO CROWE [facility] signature date: 09/26/2020 22:42Attending Physician Attestation comments: I have reviewed the mid-level documentation, agree with the documentation, medical decision making and treatment plan as outlined by the mid-level provider.Physician signature: Michelle RICK signature date: 10/07/2020 02:09 Name Value Range Interpretation Code Description Data Victoria rce(s) Supporting Document(s) ID Date Data Source [id number] 10/06/2020 08:54:00 AM EDT [facility]) Name Value Range Interpretation Code Description Data Victoria rce(s) Supporting Document(s) Hemoglobin A1c/Hemoglobin.total in Blood 4.9 % 4.1-6.5 [facility] ([facility]) ID Date Data Source [id number] 10/06/2020 08:54:00 AM EDT [facility] ([facility]) Name Value Range Interpretation Code Description Data Victoria rce(s) Supporting Document(s) Potassium [Moles/volume] in Serum or Plasma 3.8 meq/L 3.5-5.3 [facility] ([facility]) Sodium [Moles/volume] in Serum or Plasma 139 meq/L 135-145 [facility] ([facility]) Chloride [Moles/volume] in Serum or Plasma 108 meq/L 94-110 [facility] ([facility]) Anion gap in Serum or Plasma 11 5-16 [facility] ([facility]) Carbon dioxide, total [Moles/volume] in Serum or Plasma 24 meq/L 22 -33 [facility] ([facility]) Creatine [Mass/volume] in Serum or Plasma 0.8 mg/dL 0.6-1.4 [facility] Urea nitrogen [Mass/volume] in Serum or Plasma 14 mg/dL 7-25 [facility] Glomerular filtration rate/1.73 sq M.pre dicted [Volume Rate/Area] in Serum or Plasma by Creatinine-based formula (MDRD) 81.2 mL/min [facility] ([facility]) Stage G2 - Mildly decreased kidney funct [...] or Plasma 17 8 -36 [facility] ([facility]) Calcium [Mass/volume] in Serum or Plasma 9.6 mg/dL 8.7-10.5 [facility] ID Date Data Source [id number] 10/06/2020 08:49:00 AM EDT [address] [address] HEALTH INFORMATION MANAGEMENT ED/ Physician Report : [id number] Signed Patient: Taniya Field Acct:[id number] Unit: Gaetano [id number] : 1985 Arrival Date: 10/06/20 Age/Sex: 34 [...] previously had kidney stones. 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 Followed [...] Normal Affect Skin Skin exam: Dry, Intact, [place] and Warm Course Vital Signs Vital signs: [...] rce(s) Supporting Document(s) ID Date Data Source [id number] 10/06/2020 07:56:00 AM EDT [facility] Name Value Range Interpretation Code Description Data Victoria rce(s) Supporting Document(s) Laboratory test finding (navigational concept) Laboratory test result [facility] ([facility]) NO URINE RECEIVED Patient informed to return with specimen. ID Date Data Source [id number] 10/06/2020 11:33:00 AM EDT [facility] NO URINE SENT FOR [facility]A Name Value Range Interpretation Code Description Data Victoria rce(s) Supporting Document(s) SODIUM 139 MEQ/L 135-145 [facility] POTASSIUM 3.8 MEQ/L 3.5-5.3 [facility] CHLORIDE 108 MEQ/L 94-110 [facility] CARBON DIOXIDE 24 MEQ/L 22-33 [facility] ANION GAP 11 5-16 N [facility] BLOOD UREA NITRO 14 MG/DL 7-25 N [facility] CREATININE 0.8 MG/DL 0.6-1.4 N [facility] GFR 81.2 ML/MIN [facility] Stage G2 - Mildly decreased kidney func tion The GFR is an estimate of the Glomerular Filtration Rate. It is an aid to assess a patient's renal function. It is not a conclusive diagnosis of kidney disease. GFR normal is >=90 The MDRD GFR calculation is considered valid between the ages of 18 and 75 years only. BUN/CREAT RATIO 17 8-36 N [facility] GLUCOSE 82 MG/DL 70-100 N [facility] CA 9.6 MG/DL 8.7-10.5 N [facility] ID Date Data Source [id number] 10/06/2020 11:33:00 AM EDT [facility] NO URINE SENT FOR UA Name Value Range Interpretation Code Description Data Victoria rce(s) Supporting Document(s) GLYCOSYLATED HGBA1C 4.9 % 4.1-6.5 N [facility] ID Date Data Source [id number] 10/08/2020 07:57:00 AM EDT [facility] NO URINE SENT FOR UA Name Value Range Interpretation Code Description Data Victoria rce(s) Supporting Document(s) NO URINE RECEIVED FROM PATIENT NO URINE RECEIVED [facility] Patient informed to return with specime n. ID Date Data Source [id number] 10/05/2020 04:18:00 PM EDT [facility] Name Value Range Interpretation Code Description Data Victoria rce(s) Supporting Document(s) Hemoglobin A1c/Hemoglobin.total in Blood Laboratory test result [facility] ([facility]) ID Date Data Source [id number] 09/26/2020 08:51:00 AM EDT [facility] ([facility] [...] % 24.0-44.0 [facility] ([facility]) [place] % 7.5 % 2.0-8.0 [facility] ([facility] e [...] 10 1.5-5.0 [facility] ([facility]) [place] # 0.5 10 0.0-0.8 [facility] ([facility]) Baso # 0.0 10 0.0-0.2 [facility] ([facility]) Eos # 0.1 10 0.0-0.5 [facility] ([facility]) ID Date Data Source [id number] 09/26/2020 08:51:00 AM EDT [facility] ([facility] [...] MYOCARDIAL INFARCTION 2.5-3.5 ID Date Data Source [id number] 09/26/2020 08:51:00 AM EDT [facility]) Name Value Range Interpretation Code Description Data Victoria rce(s) Supporting Document(s) aPTT in Platelet poor plasma by Coagulation assay 23.5 s 24.2-38.5 Below low normal [facility] ([facility]) ID Date Data Source [id number] 09/26/2020 08:51:00 AM EDT [facility] ([facility] [...] ([facility]) ID Date Data Source [id number] 09/26/2020 08:51:00 AM EDT [facility] ([facility] [...] Little GFR Left</content>
<content>ESRD GFR <15 on HAZARD WASTE HANDLER</content>
<content></content> Sodium Level 140 meq/L 136-145 [facility] ([facility]) Potassium Serum 4.3 meq/L 3.5-5.1 [facility] ([facility]) Carbon Dioxide Level 23 meq/L 21-32 [facility] ([facility]) Chloride Level 108 meq/L 98-107 Above high normal [facility] ([facility]) Anion Gap 9 meq/L 8-16 [facility] ([facility]) Calcium Level 9.0 mg/dL 8.5-10.1 [facility] ([facility]) ID Date Data Source [id number] 09/26/2020 08:51:00 AM EDT [facility] Name Value Range Interpretation Code Description Data Victoria rce(s) Supporting Document(s) Lipase [Enzymatic activity/volume] in Serum or Plasma 100 U/L 73-3 93 [facility] ([facility]) Choriogonadotropin.beta subunit ( test) [Pres ence] in Serum or Plasma Laboratory test result [facility] ([facility]) ID Date Data Source [id number] 09/26/2020 08:51:00 AM EDT [facility] Name Value Range Interpretation Code Description Data Victoria rce(s) Supporting Document(s) Color, Urine RFX Laboratory test result [facility] ([facility]) Appearance, Urine RFX Laboratory test result Above high no rmal [facility] ([facility]) PH,Urine RFX 6.0 units 5.0-9.0 [facility] Specific [place] Ur Auto RFX 1.021 1.002-1.035 [facility] ([facility]) Glucose, Urine (Ua) Auto RFX Laboratory test result [facility] ([facility]) Protein, Urine Auto RFX Laboratory test result Above high normal [facility] ([facility]) Ketone, Urine Auto RFX Laboratory test result [facility] ([facility]) Urobilinogen, Urine Auto RFX 0.2 mg/dL 0.0-2.0 [facility] ([facility]) Bilirubin, Urine Auto RFX Laboratory test result [facility] ([facility]) Nitrite, Urine Auto RFX Laboratory test [facility] Blood, Urine Blood RFX Laboratory test result Above high n ormal [facility] ([facility]) Leukocyte Esterase Ur Auto RFX Laboratory test result Abov e high normal [facility] ([facility]) WBC, Urine Auto RFX 9 /HPF 0-3 Above high normal [facility] ([facility]) RBC, Urine Auto RFX Laboratory test result 0-3 Above high norm al [facility] ([facility]) Bacteria, Urine Auto RFX Laboratory test result [facility] ([facility]) Squam Epithelial Cell Ur Aurfx 9 /HPF 0-6 [facility] ([facility]) Hyaline Cast, Urine Auto RFX 0 /LPF 0-1 [facility] ([facility]) ID Date Data Source [id number] 09/26/2020 08:51:00 AM EDT [facility] ([facility]) Name Value Range Interpretation Code Description Data Victoria rce(s) Supporting Document(s) Reflex Urine Culture Laboratory test result [facility] FULL REPORT IN LAB NOTES ([facility] and [facility] ). SPECIMEN APPEARS CONTAMINATED ID Date Data Source [id number] 09/21/2020 09:00:00 PM EDT [facility] Name Value Range Interpretation Code Description Data Victoria rce(s) Supporting Document(s) SODIUM 142 mmol/L 136-[address] [facility] POTASSIUM 3.7 mmol/L 3.5-5.[address] [facility] CHLORIDE 106 mmol/L 100-[address] [facility] CO2 27 mmol/L 21-[address] [facility] GLUCOSE 90 mg/dL 70-[address] [facility] BUN 15 mg/dL 7-[address] [facility] CREATININE 0.9 mg/dL 0.6-1.[address] [facility] Normal Kidney Function or Mild Disease - GFR >OR= 60Chronic Kidney Disease - GFR 15-59Renal Failure - GFR < 15GFR not calculated on patients under 18 years of age. CALCIUM 9.5 mg/dL 8.5-10.[address] [facility] GFR >[address] [facility] T BILI 0.3 mg/dL 0.0-1.[address] [facility] T PROTEIN 7.0 gm/dL 6.4-8.[address] [facility] ALBUMIN 3.9 gm/dL 3.4-4.[address] [facility] ALK PHOS 98 U/L 40-[address] [facility] ALT (SGPT) 45 U/L 0-[address] [facility] AST (SGOT) 38 U/L 5-[address] [facility] ID Date Data Source [id number] 09/21/2020 08:32:00 PM EDT [facility] CBC W/DIFF STAT Name Value Range Interpretation Code Description Data Victoria rce(s) Supporting Document(s) WBC 7.8 K/uL 4.8-10.[address] [facility] RBC 4.05 M/uL 4.20-5.[address] [facility] HEMOGLOBIN 12.9 gm/dL 12.0-16.[address] [facility] HEMATOCRIT 37.5 % 36.0-48.[address] [facility] MCV 92.6 fL 80.0-100.[address] [facility] MCHC 34.5 % 30.0-36.[address] [facility] MCH 32.0 pg 27.0-34.[address] [facility] RDW 15.5 % 11.0-15.[address] [facility] PLATELET 298 K/uL 130-[address] [facility] MPV 6.8 fL 6.0-12.[address] [facility] NE% 61 % 37-[address] [facility] LY% 31 % 10-[address] [facility] MO% 7 % 0-[address] [facility] Eosinophils [#/volume] in Blood by Automated count 1 % <=[address] [facility] BA% 0 % <=[address] [facility] NE# 4.8 K/uL 1.8-8.[address] [facility] LYMPH# 2.4 K/uL 0.5-5.[address] [facility] MONO# 0.5 K/uL 0.0-1.[address] [facility] EOS# 0.1 K/uL 0.0-0.[address] [facility] BASO# 0.0 K/ul 0.0-0.[address] [facility] ID Date Data Source [id number] 09/17/2020 05:12:07 PM EDT [facility] Note Status: FINAL (SIGNED)Full Name: Kade JONES Date: 1985Visit ID: [id number] Record Number: [id number]: 34YSex: FemaleRoom Location: UNKNOWN_ROOMBed Location: UNKNOWN_BEDDate of Service: 08/19/2020 17:42Creation Date: 08/19/2020 17:42Created By: [facility] Physician: FORTUNATO CONTRERASTime patient first seen: 1725 [...] rce(s) Supporting Document(s) ID Date Data Source [id number] 09/05/2020 02:33:00 PM EDT [facility] (Marlon ssionate [...] ([facility]) ID Date Data Source [id number] 09/05/2020 02:20:00 PM EDT [facility] (Marlon ssionate [facility]) Name Value Range Interpretation Code Description Data Victoria rce(s) Supporting Document(s) Laboratory test finding (navigational concept) Laboratory test result [facility] ([facility]) <content>QUANTITATIVE RESULT QU ALITATIVE INTERPRETATION</content>
<content> </content>
<content><5.0 IU/L NEGATIVE</content>
<content>5.0 - 25.0 IU/L INDETERMINATE</content>
<content>>25.0 IU/L POSITIVE</content>
<content></content> ID Date Data Source [id number] 09/05/2020 12:05:00 PM EDT [facility] (Marlon ssionate [facility]) Name Value Range Interpretation Code Description Data Victoria e(s) Supporting Document(s) Laboratory test finding (navigational concept) Laboratory test result [facility] ([facility]) <content>QUANTITATIVE RESULT QU ALITATIVE INTERPRETATION</content>
<content> </content>
<content><5.0 IU/L NEGATIVE</content>
<content>5.0 - 25.0 IU/L INDETERMINATE</content>
<content>>25.0 IU/L POSITIVE</content>
<content></content> ID Date Data Source [id number] 09/05/2020 11:53:00 AM EDT [facility] (Marlon ssionate [facility]) Name Value Range Interpretation Code Description [...] finding (navigational concept) 25.0 MM/L 23.0-27.0 [facility] ([facility] Laboratory test finding (navigational concept) 0.6 mg/dL 0.6-1.3 [facility] ([facility]) Laboratory test finding (navigational concept) 13 mg/dL 8-26 [facility]) ID Date Data Source [id number] 08/22/2020 12:00:00 AM EDT [facility] Name Value Range Interpretation Code Description Data Victoria rce(s) Supporting Document(s) SARS-CoV2 Rapid Antigen Negative [facility] This lab was ordered by [facility] and reported by [facility]. ID Date Data Source [id number] 08/19/2020 06:17:00 PM EDT [facility] AMYL[facility] Name Value Range Interpretation Code Description Data Victoria rce(s) Supporting Document(s) AMYLASE 47 U/L 25-[address] [facility] ID Date Data Source [id number] 08/19/2020 06:17:00 PM EDT [facility] LIPASE Name Value Range Interpretation Code Description Data Victoria rce(s) Supporting Document(s) LIPASE 24 U/L 8-[address] [facility] ID Date Data Source [id number] 08/19/2020 06:17:00 PM EDT [facility] CMP Name Value Range Interpretation Code Description Data Victoria rce(s) Supporting Document(s) SODIUM 139 mmol/L 136-[address] [facility] POTASSIUM 3.8 mmol/L 3.5-5.[address] [facility] CHLORIDE 105 mmol/L 100-[address] [facility] CO2 26 mmol/L 21-[address] [facility] GLUCOSE 95 mg/dL 70-[address] [facility] BUN 15 mg/dL 7-[address] [facility] CREATININE 0.8 mg/dL 0.6-1.[address] [facility] Normal Kidney Function or Mild Disease - GFR >OR= 60Chronic Kidney Disease - GFR 15-59Renal Failure - GFR < 15GFR not calculated on patients under 18 years of age. CALCIUM 9.7 mg/dL 8.5-10.[address] [facility] GFR >[address] [facility] T BILI 0.4 mg/dL 0.0-1.[address] [facility] T PROTEIN 7.5 gm/dL 6.4-8.[address] [facility] ALBUMIN 4.2 gm/dL 3.4-4.[address] [facility] ALK PHOS 114 U/L 40-[address] [facility] ALT (SGPT) 44 U/L 0-[address] [facility] AST (SGOT) 32 U/L 5-[address] [facility] ID Date Data Source [id number] 08/19/2020 06:13:00 PM EDT [facility] Name Value Range Interpretation Code Description Data Victoria rce(s) Supporting Document(s) LACTIC ACID 1.1 mmol/L 0.5-2.[address] [facility] ID Date Data Source [id number] 08/19/2020 06:08:00 PM EDT [facility] Name Value Range Interpretation Code Description Data Victoria rce(s) Supporting Document(s) PTT 30.6 sec 25.6-36.[address] [facility] ID Date Data Source [id number] 08/19/2020 06:06:00 PM EDT [facility] Name Value Range Interpretation Code Description Data Victoria rce(s) Supporting Document(s) PROTIME 11.3 sec 9.4-12.[address] [facility] INR 1.[address] [facility] INR INTERPERTATION 2.0 -3.0 THERAPEUTIC MONITORING2.5-3.5 HEART VALVE REPLACEMENT ID Date Data Source [id number] 08/19/2020 05:56:00 PM EDT [facility] CBC WITH DIFF Name Value Range Interpretation Code Description Data Victoria rce(s) Supporting Document(s) WBC 10.9 K/uL 4.8-10.[address] [facility] RBC 4.43 M/uL 4.20-5.[address] [facility] HEMOGLOBIN 13.1 gm/dL 12.0-16.[address] [facility] HEMATOCRIT 39.5 % 36.0-48.[address] [facility] MCV 89.1 fL 80.0-100.[address] [facility] MCHC 33.3 % 30.0-36.[address] [facility] MCH 29.6 pg 27.0-34.[address] [facility] RDW 15.9 % 11.0-15.[address] [facility] PLATELET 314 K/uL 130-[address] [facility] MPV 6.7 fL 6.0-12.[address] [facility] NE% 67 % 37-[address] [facility] LY% 25 % 10-[address] [facility] MO% 7 % 0-[address] [facility] Eosinophils [#/volume] in Blood by Automated count 1 % <=[address] [facility] BA% 1 % <=[address] [facility] NE# 7.2 K/uL 1.8-8.[address] [facility] LYMPH# 2.7 K/uL 0.5-5.[address] [facility] MONO# 0.7 K/uL 0.0-1.[address] [facility] EOS# 0.1 K/uL 0.0-0.[address] [facility] BASO# 0.1 K/ul 0.0-0.[address] [facility] ID Date Data Source [id number] 08/16/2020 12:00:00 AM EDT [facility] Name Value Range Interpretation Code Description Data Victoria rce(s) Supporting Document(s) SARS-CoV2 Rapid Antigen Negative [facility] This lab was ordered by [facility] and reported by [facility]. ID Date Data Source [id number] 08/15/2020 07:15:28 PM EDT [facility] left flank pain, r/o obstructive uropath [...] Echogenic hepatic parenchyma suggesting steatosis.IMPRESSION:No hydronephrosis.END OF IMPRESSIONSt[facility] those [facility] results to [facility]. Allresults are available to [facility] and [facility] provider portalusers. [facility] DICOM images are available to [facility] provider portal users only. [facility] DICOMimages are not available to the [facility] provider portal users. There isno current [facility] cross-[facility] functionality allowing images to be available [facility] to [facility] connectivity.Electronically signed By: Scottie Gonsales By: SCOTTIE RANDOLPHNDate: 08/15/2020 19:12 Name Value Range Interpretation Code Description Data [facility]s) ID Date Data Source [id number] 08/15/2020 05:54:00 PM EDT [facility] Name Value Range Interpretation Code Description Data [facility] rce(s) Supporting Document(s) SODIUM 140 mmol/L 136-[address] [facility] POTASSIUM 3.5 mmol/L 3.5-5.[address] [facility] CHLORIDE 109 mmol/L 100-[address] [facility] CO2 23 mmol/L 21-[address] [facility] GLUCOSE 91 mg/dL 70-[address] [facility] BUN 18 mg/dL 7-[address] [facility] CREATININE 0.9 mg/dL 0.6-1.[address] [facility] Normal Kidney Function or Mild Disease - GFR >OR= 60Chronic Kidney Disease - GFR 15-59Renal Failure - GFR < 15GFR not calculated on patients under 18 years of age. CALCIUM 8.8 mg/dL 8.5-10.[address] [facility] GFR >[address] [facility] T BILI 0.3 mg/dL 0.0-1.[address] [facility] T PROTEIN 7.1 gm/dL 6.4-8.[address] [facility] ALBUMIN 4.0 gm/dL 3.4-4.[address] [facility] ALK PHOS 102 U/L 40-[address] [facility] ALT (SGPT) 43 U/L 0-[address] [facility] AST (SGOT) 31 U/L 5-[address] [facility] ID Date Data Source [id number] 08/15/2020 05:45:00 PM EDT [facility] Name Value Range Interpretation Code Description Data Victoria rce(s) Supporting Document(s) SERUM TEST NEGATIVE [facility] spital PREGS METHODOLOGY [facility] den[facility] ID Date Data Source [id number] 08/15/2020 05:29:00 PM EDT [facility] CBC W/DIFF STAT Name Value Range Interpretation Code Description Data Victoria rce(s) Supporting Document(s) WBC 11.9 K/uL 4.8-10.[address] [facility] RBC 3.97 M/uL 4.20-5.[address] [facility] HEMOGLOBIN 11.7 gm/dL 12.0-16.[address] [facility] HEMATOCRIT 35.4 % 36.0-48.[address] [facility] MCV 89.2 fL 80.0-100.[address] [facility] MCHC 33.1 % 30.0-36.[address] [facility] MCH 29.5 pg 27.0-34.[address] [facility] RDW 15.9 % 11.0-15.[address] [facility] PLATELET 317 K/uL 130-[address] [facility] MPV 6.7 fL 6.0-12.[address] [facility] NE% 69 % 37-[address] [facility] LY% 24 % 10-[address] [facility] MO% 6 % 0-[address] [facility] Eosinophils [#/volume] in Blood by Automated count 1 % <=[address] [facility] BA% 0 % <=[address] [facility] NE# 8.3 K/uL 1.8-8.[address] [facility] LYMPH# 2.9 K/uL 0.5-5.[address] [facility] MONO# 0.7 K/uL 0.0-1.[address] [facility] EOS# 0.1 K/uL 0.0-0.[address] [facility] BASO# 0.0 K/ul 0.0-0.[address] [facility] ID Date Data Source [id number] 08/17/2020 09:03:00 AM EDT [facility] CULTURE OBSERVATIONS 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 [facility] RBC >100 /HPF NONE SEEN ! [facility] [employer] has definedMicroscopic Hematuria as 3 or more RBC per highpowered field from a single positive urinalysis withmicroscopy. BACTERIA MODERATE /HPF NONE SEEN ! [facility] EPITHELIAL CELLS MODERATE /HPF NONE SEEN ! [facility] spital ID Date Data Source [id number] 08/15/2020 05:16:00 PM EDT [facility] Name Value Range Interpretation Code Description Data [facility] rce(s) Supporting Document(s) COLOR LUIS M [facility] APPEARANCE HAZY CLEAR ! [facility] SPECIFIC GRAVITY 1.025 1.000-1.030 [facility] pH 5.0 5.0-8.[address] [facility] LEUKOCYTES 2+ NEGATIVE ! [facility] NITRATE NEGATIVE NEGATIVE [facility] PROTEIN 100 [ 2+] mg/dL NEGATIVE ! [facility] GLUCOSE NORMAL mg/dL NORMAL [facility] KETONE NEGATIVE mg/dL NEGATIVE [facility] UROBILINOGEN 1 mg/dL NORMAL ! [facility] BILIRUBIN NEGATIVE mg/dL NEGATIVE [facility] HEMOGLOBIN 3+ NEGATIVE ! [facility] ID Date Data Source [id number] 08/15/2020 04:21:10 PM EDT [facility] Note Status: FINAL (SIGNED)Full Name: Kade JONES Date: 1985Visit ID: [id number] Record Number: [id number]: 33YSex: FemaleRoom Location: ER ROOMSBed Location: ER BD 11Date of Service: 02/16/2019 15:37Creation Date: 02/16/2019 15:37Created [facility] Physician: NONE, NONETime patient first seen: [id number] Informant: SureshHPSusan Chief Complaint: Left flank pain [...] Urine Turbidity;HAZY;;;Final Result ;02/16/2019 14:09:00URINALYSIS ROUTINE;Dipstick Specific [place];1.020;(1.000-1.030);;Final Result ;02/16/2019 14:09:00URINALYSIS ROUTINE;Dipstick Urine pH;6.0;(5.0-8.0);;Final Result [...] and agree with or edited the findings. [facility] submits Radiology results to [facility] and [facility] then provides those same results to [facility]. All results are available to [facility] and [facility] provider portal users. [facility] DICOM images are available to the [facility] provider portal users only. [facility] DICOM images are not available to the [facility] provider portal users. There is no current [facility] cross-[facility] functionality allowing images to be available through the [facility] to [facility] connectivity. Interpreted By: Rosaura Stephens M.D. [...] Your prescription has been sent to [facility] in [place]. Disposition: homePatient did not require critical care timeMidlevel signature: Guerda MORALES signature date: 02/17/2019 10:53Attending Physician Attestation: I have reviewed the midlevel documentation, agree with the documentation, medical decision making and treatment plan as outlined by the midlevelPhysician signature: Patrica MITCHELLsihever signature date: 02/19/2019 04:58 Note Status: FINAL (SIGNED)Full Name: Kade JONES Date: 1985Visit ID: [id number] Record Number: [id number]: 33YSex: FemaleRoom Location: ER ROOMSBed Location: ER BD 11Date of Service: 02/16/2019 15:37Creation Date: 02/16/2019 15:37Created [facility] Physician: NONE, NONETime patient first seen: [...] Urine Turbidity;HAZY;;;Final Result ;02/16/2019 14:09:00URINALYSIS ROUTINE;Dipstick Specific [place];1.020;(1.000-1.030);;Final Result ;02/16/2019 14:09:00URINALYSIS ROUTINE;Dipstick Urine pH;6.0;(5.0-8.0);;Final Result [...] agree with or edited the findings.. . [facility] submits Radiology results to [facility] and. [facility] then provides those same results to [facility]. All. results are available to [facility] and [facility] provider portal. users. [facility] DICOM images are available to the. [facility] provider portal users only. [facility] DICOM. images are not available to the [facility] provider portal users. There is. no current [facility] cross-[facility] functionality allowing images to be available through. the IO to [facility] connectivity.. Interpreted By: Rosaura Stephens M.D.. [...] prescri ption has been sent to [facility] in [place]. Disposition: homePatient did not require critical care timeMidlevel signature: Guerda MORALES signature date: 02/17/2019 10:53Attending Physician Attestation: I have reviewed the midlevel documentation, agree with the documentation, medical decision making and treatment plan as outlined by the midlevelPhysician signature: Asim MITCHELL signature date: 02/19/2019 04:58 Name Value Range Interpretation Code Description Data Victoria rce(s) Supporting Document(s) ID Date Data Source [id number] 08/15/2020 04:21:10 PM EDT [facility] Note Status: FINAL (SIGNED)Full Name: Kade JONES Date: 1985Visit ID: [id number] Record Number: [id number]: 33YSex: FemaleRoom Location: ER ROOMSBed Location: ER BD 11Date of Service: 02/16/2019 15:37Creation Date: 02/16/2019 15:37Created By[facility] Physician: NONE, NONETime patient first seen: [...] Urine Turbidity;HAZY;;;Final Result ;02/16/2019 14:09:00URINALYSIS ROUTINE;Dipstick Specific [place];1.020;(1.000-1.030);;Final Result ;02/16/2019 14:09:00URINALYSIS ROUTINE;Dipstick Urine pH;6.0;(5.0-8.0);;Final Result [...] and agree with or edited the findings. [facility] submits Radiology results to [facility] and [facility] then provides those same results to [facility]. All results are available to [facility] and [facility] provider portal users. [facility] DICOM images are available to the [facility] provider portal users only. [facility] DICOM images are not available to the [facility] provider portal users. There is no current [facility] cross-[facility] functionality allowing images to be available through the [facility] to [facility] connectivity. Interpreted By: Rosaura Stephens M.D. [...] Your prescription has been sent to [facility] in [place]. Disposition: homePatient did not require critical care timeMidlevel signature: Guerda MORALES signature date: 02/17/2019 10:53Attending Physician Attestation: I have reviewed the midlevel documentation, agree with the documentation, medical decision making and treatment plan as outlined by the [facility] and granite manorlevelPhysician signature: Asim MITCHELL signature date: 02/19/2019 04:58 Note Status: FINAL (SIGNED)Full Name: Kade JONES Date: 1985Visit ID: [id number] Record Number: [id number]: 33YSex: FemaleRoom Location: ER ROOMSBed Location: ER 11Date of Service: 02/16/2019 15:37Creation Date: 02/16/2019 15:37[facility] Physician: NONE, NONETime patient first seen: 0227 Informant: PatientHPI Chief Complaint: Left flank pain [...] Urine Turbidity;HAZY;;;Final Result ;02/16/2019 14:09:00URINALYSIS ROUTINE;Dipstick Specific [place];1.020;(1.000-1.030);;Final Result ;02/16/2019 14:09:00URINALYSIS ROUTINE;Dipstick Urine pH;6.0;(5.0-8.0);;Final Result [...] agree with or edited the findings.. . [facility] submits Radiology results to [facility] and. [facility] then provides those same results to [facility]. All. results are available to [facility] and [facility] provider portal. users. [facility] DICOM images are available to the. [facility] provider portal users only. [facility] DICOM. images are not available to the [facility] provider portal users. There is. no current [facility] cross-[facility] functionality allowing images to be available through. the [facility] to [facility] connectivity.. Interpreted By: Rosaura Stephens M.D.. [...] prescri ption has been sent to [facility] in [place]. Disposition: homePatient did not require critical care timeMidlevel signature: Guerda MORALES signature date: 02/17/2019 10:53Attending Physician Attestation: I have reviewed the midlevel documentation, agree with the documentation, medical decision making and treatment plan as outlined by the midlevelPhysician signature: Asim MITCHELL signature date: 02/19/2019 04:58 Name Value Range Interpretation Code Description Data Victoria rce(s) Supporting Document(s) ID Date Data Source [id number] 08/09/2020 11:22:00 AM T [facility] Run: 08/09/20 1122 INTERFACED REPORT Name: Taniya Field Age/Sex: 34/F Location: [facility] Acct: [id number] Unit: [id number] Status: REG REF Room/Bed: Re08/06/20 Disch: Att Dr: Stuart Carolina MD Spec Num: [id number] Recd: 08/06/201019 Status: AMERICA Lopez Num: [id number] SpType: MED CYTO Sub Dr: Stuart Carolina MD ProcFlow Cytometry, FLOW FIRST MARKER, FLOW EACH ADDITIONAL MARKER/23 DX: PNH- PAROXYSMAL NOCTURNAL HEMOGLOBINURLA FLOW CYTOMETRY, peripheral blood specimen: - No diagnostic immunophenotypic abnormalities detected (see [employer] report attached) [id number] / [id number] [employer] did two separate flow cytometry, one to rule out lymphoma and another one specific for PNH The result shows no evidence of PNH ( see separate report) Signed (signature on file) Weston Osman MD 08/08/20 0831[facility] END OF REPORT Name Value Range Interpretation Code Description Data [facility] Supporting Document(s) ID Date Data Source [id number] 07/31/2020 03:56:00 PM EDT [facility] ([facility]) Name Value Range Interpretation Code Description Data [facility] rce(s) Supporting Document(s) Rubella virus IgG Ab [...]
<content>Mumps virus or previous vaccination.</content>
<content>Performed at: [facility]</content>
<content>[address] [place] [id number]</content>
<content>Stave Block Roller: Jimena Jay MD, Phone: [phone]</content>
<content></content> ID Date Data Source [id number] 08/02/2020 11:14:00 AM EDT [facility] Name Value Range Interpretation Code Description Data Victoria rce(s) Supporting Document(s) Rubella IgG Ab,S 1.49 index Immune >0.99 [place] [facility] Non-imm une <0.90 Equivocal 0.90 - 0.99 Immune >0.99 [place] IgG Ab,S 32.2 AU/mL Immune >16.4 [place] [facility] Negati ve <13.5 Equivocal 13.5 - 16.4 Positive >16.4 Presence of antibodies to [place] is presumptive evidence of immunity except when acute infection is suspected. Mumps IgG,S <9.0 AU/mL Immune >10.9 A [facility] Negativ e <9.0 Equivocal 9.0 - 10.9 Positive > 10.9 A positive result generally indicates past exposure to Mumps virus or previous vaccination. Performed at: [facility] [id number] [employer] Roller: Jimena Jay MD, Phone: [phone] ID Date Data Source [id number] 07/31/2020 04:51:00 PM EDT [facility] STUART CAROLINA MD [facility] HEMATOLOGY STUART CAROLINA MD [facility] HEMATOLOGY [facility] [place] [address], [place], [address] PHONE STUART CAROLINA MD [facility] HEMATOLOGY STUART CAROLINA MD [facility] HEMATOLOGY [facility] [place] [address], [address], [place], [address] PHONE Name Value Range Interpretation Code Description Data Victoria rce(s) Supporting Document(s) WHITE BLOOD COUNT 8.12 10^3/uL 4.00-10.50 [facility] [place] [facility] RED BLOOD COUNT 4.10 10^6/uL 3.90-5.20 [facility] HEMOGLOBIN 11.6 G/DL 11.5-15.6 [facility] HEMATOCRIT 35.1 % 35.0-46.0 [facility] MCV 85.6 FL 80.0-100.0 [facility] MCH 28.3 PG 27.0-34.0 [facility] MCHC 33.0 G/DL 32-36 [facility] RDW 15.7 % 11.5-14.5 [facility] PLATELET COUNT 305 10^3/uL 130-400 [facility] MPV 9.7 FL 8.7-13.2 [facility] GRAN % (AUTO) 68.1 % 42.0-75.0 [facility] LYMPH % (AUTO) 23.8 % 20.0-51.0 [facility] MONO % (AUTO) 7.0 % 2.0-15.0 [facility] EOS % (AUTO) 0.5 % 0.0-11.0 [facility] BASO % (AUTO) 0.2 % 0.0-2.0 [facility] IG % (AUTO) 0.4 % 1.00-5.00 [facility] IG # (AUTO) 0.0 10^3/uL <0.5 [facility] GRAN # (AUTO) 5.53 10^3/uL 1.50-6.50 [facility] [place] [facility] LYMPH # (AUTO) 1.9 k/uL 1.0-5.0 [facility] MONO # (AUTO) 0.57 k/uL 0.20-1.50 [facility] EOS # (AUTO) 0.04 10^3/uL 0.00-1.10 [facility] BASO # (AUTO) 0.02 10^3/uL 0.00-0.20 [facility] ID Date Data Source [id number] 07/31/2020 05:51:00 PM EDT [facility] STUART CAROLINA MD [facility] HEMATOLOGY STUART CAROLINA MD [facility] [place] [address], [place], [id number] PHONE STUART CAROLINA MD [facility] HEMATOLOGY STUART CAROLINA MD [facility] HEMATOLOGY [facility] [place] [address], [place], [id number] PHONE Name Value Range Interpretation Code Description Data Victoria rce(s) Supporting Document(s) IRON 36 UG/DL 35-150 [facility] TIBC 395 UG/DL 260-400 [facility] % IRON SATURATION 9.0 % 20-50 [facility] ID Date Data Source [id number] 08/02/2020 11:24:00 AM EDT [facility] STUART CAROLINA MD [facility] HEMATOLOGY STUART CAROLINA MD [facility] H[facility] [place] [address], [id number] PHONE STUART CAROLINA MD [facility] HEMATOLOGY STUART CAROLINA MD [facility] [place] [address], [place], [address] PHONE Name Value Range Interpretation Code Description Data Victoria rce(s) Supporting Document(s) Transferrin 332 mg/dL 192-364 [facility] Performed at: RN - [facility] [address] [id number] Stave Block Roller: Jimena Jay MD, Phone: [phone] ID Date Data Source [id number] 07/31/2020 05:51:00 PM EDT [facility] STUART CAROLINA MD [facility] HEMATOLOGY STUART CAROLINA MD [facility] [place] [address], [place], [address] PHONE STUART CAROLINA MD [facility] HEMATOLOGY STUART CAROLINA MD [facility] [facility] [place] [address], [address], [place], [address] PHONE Name Value Range Interpretation Code Description Data Victoria rce(s) Supporting Document(s) FERRITIN 16.7 NG/ML 22-322 L [facility] ID Date Data Source [id number] 07/26/2020 03:50:00 PM EDT [facility] ([facility] [...] ([facility]) ID Date Data Source [id number] 07/26/2020 03:21:00 PM EDT [facility] ([facility]on ssionate [facility]) Name Value Range Interpretation Code Description Data Victoria rce(s) Supporting Document(s) Laboratory test finding (navigational concept) Laboratory test result [facility] ([facility]) ID Date Data Source [id number] 07/26/2020 03:17:00 PM EDT [facility] ([facility]on [facility]ionate [facility]) Name Value Range Interpretation Code Description Data Victoria rce(s) Supporting Document(s) Laboratory test finding (navigational concept) Laboratory test result [facility] ([facility]) Bacteria identified in Urine by Culture Laboratory test result [facility] ([facility]) CULTURE, URINE, ROUTINE Micro Number: [id number] Test Status: Final Specimen Source: URINE Specimen Quality: Adequate Result: Growth of mixed radha was isolated, suggesting probable contamination. No further testing will be performed. If clinically indicated, recollection using a method to minimize contamination, with prompt transfer to Urine Culture Transport Tube, is recommended. ID Date Data Source [id number] 07/25/2020 04:39:[place] [address] Patient Name: Taniya Field Exam Date: 07/25/20 [...] hepatomegaly and steatosis. Professional interpretation performed by [facility] Medical Imaging at [facility] . End of diagnostic report: [id number] Signed: Jose Nolasco II, MD 07/25/20 1650 Interpreted by: Sonu Nolascocribed by: Jose Nolasco Name Value Range Interpretation Code Description Data Victoria rce(s) Supporting Document(s) ID Date Data Source [id number] 07/25/2020 04:21:20 PM EDT [facility] Note Status: FINAL (SIGNED)Full Name: Kade JONES Date: 1985Visit ID: [id number] Record Number: [id number]: 34YSex: FemaleRoom Location: ER ROOMSBed Location: ER 10Date of Service: 06/28/2020 11:22Creation Date: 06/28/2020 11:22Created By: [facility] Physician: FORTUNATO CONTRERASTime patient first seen: [...] Urine Turbidity;TURBID;;;Final Result ;06/28/2020 11:25:19URINALYSIS ROUTINE;Dipstick Specific [place];1.015;(1.000-1.030);;Final Result ;06/28/2020 11:25:19URINALYSIS ROUTINE;Dipstick Urine pH;5.0;(5.0-8.0);;Final Result [...] rce(s) Supporting Document(s) ID Date Data Source [id number] 07/25/2020 03:46:00 PM EDT [facility] Name Value Range Interpretation Code Description Data Victoria rce(s) Supporting Document(s) Sodium [Moles/volume] in Serum or Plasma 138 meq/L 135-145 [facility] ([facility]) Potassium [Moles/volume] in Serum or Plasma 4.4 meq/L 3.5-5.3 [facility] ([facility]) Chloride [Moles/volume] in Serum or Plasma 104 meq/L 94-110 [facility] ([facility]) Carbon dioxide, total [Moles/volume] in Serum or Plasma 28 meq/L 22 -33 [facility] ([facility]) Anion gap in Serum or Plasma 10 5-16 [facility] ([facility]) Creatine [Mass/volume] in Serum or Plasma 0.8 mg/dL 0.6-1.4 [facility] ([facility]) Urea nitrogen [Mass/volume] in Serum or Plasma 14 mg/dL 7-25 [facility] ([facility]) Glucose [Mass/volume] in Serum or Plasma 92 mg/dL 70-100 [facility] ([facility]) Glomerular filtration rate/1.73 sq M.pre dicted [Volume Rate/Area] in Serum or Plasma by Creatinine-based formula (MDRD) 81.2 mL/min [facility] ([facility]) Stage G2 - Mildly decreased kidney funct [...] ([facility]) ID Date Data Source [id number] 07/25/2020 03:46:00 PM EDT [facility] (Marlon ssionate [...] Blood by Automated count 0.67 k/uL 0.20-1.50 [facility] ([facility]) ID Date Data Source [id number] 07/25/2020 04:14:00 PM EDT [facility] Name Value Range Interpretation Code Description Data Victoria rce(s) Supporting Document(s) WHITE BLOOD COUNT 8.64 10^3/uL 4.00-10.50 [facility] RED BLOOD COUNT 4.27 10^6/uL 3.90-5.20 N [facility] HEMOGLOBIN 11.6 G/DL 11.5-15.6 [facility] HEMATOCRIT 36.6 % 35.0-46.0 [facility] MCV 85.7 FL 80.0-100.0 [facility] MCH 27.2 PG 27.0-34.0 [facility] MCHC 31.7 G/DL 32-36 [facility] RDW 16.1 % 11.5-14.5 [facility] PLATELET COUNT 363 10^3/uL 130-400 [facility] MPV 9.3 FL 8.7-13.2 [facility] GRAN % (AUTO) 64.1 % 42.0-75.0 [facility] LYMPH % (AUTO) 25.8 % 20.0-51.0 [facility] MONO % (AUTO) 7.8 % 2.0-15.0 [facility] EOS % (AUTO) 1.5 % 0.0-11.0 [facility] BASO % (AUTO) 0.2 % 0.0-2.0 [facility] IG % (AUTO) 0.6 % 1.00-5.00 [facility] IG # (AUTO) 0.1 10^3/uL <0.5 [facility] GRAN # (AUTO) 5.54 10^3/uL 1.50-6.50 [facility] LYMPH # (AUTO) 2.2 k/uL 1.0-5.0 [facility] MONO # (AUTO) 0.67 k/uL 0.20-1.50 N [facility] EOS # (AUTO) 0.13 10^3/uL 0.00-1.10 N [facility] BASO # (AUTO) 0.02 10^3/uL 0.00-0.20 N [facility] ID Date Data Source [id number] 07/25/2020 04:24:00 PM EDT [facility] Name Value Range Interpretation Code Description Data Victoria rce(s) Supporting Document(s) SODIUM 138 MEQ/L 135-145 N [facility] POTASSIUM 4.4 MEQ/L 3.5-5.3 N [facility] CHLORIDE 104 MEQ/L 94-110 N [facility] CARBON DIOXIDE 28 MEQ/L 22-33 N [facility] ANION GAP 10 5-16 N [facility] BLOOD UREA NITRO 14 MG/DL 7-25 N [facility] CREATININE 0.8 MG/DL 0.6-1.4 N [facility] GFR 81.2 ML/MIN [facility] Stage G2 - Mildly decreased kidney func tion The GFR is an estimate of the Glomerular Filtration Rate. It is an aid to assess a patient's renal function. It is not a conclusive diagnosis of kidney disease. GFR normal is >=90 The MDRD GFR calculation is considered valid between the ages of 18 and 75 years only. BUN/CREAT RATIO 17 8-36 N [facility] GLUCOSE 92 MG/DL 70-100 N [facility] CA 9.1 MG/DL 8.7-10.5 [facility] BILIRUBIN,TOTAL 0.3 MG/DL 0.1-1.3 [facility] AST 57 U/L 5-40 H [facility] ALT 53 U/L 5-48 H [facility] ALKALINE PHOSPHATASE 117 U/L 40-140 N [facility]th TOTAL PROTEIN 6.8 G/DL 5.9-8.3 N [facility] ALBUMIN 4.6 G/DL 3.0-5.1 N [facility] GLOBULIN 2.2 G/DL 1.5-3.5 N [facility] ALB/GLOB RATIO 2.1 G/DL 1.0-3.0 N [facility] ID Date Data Source [id number] 07/25/2020 02:11:00 [place] [address] HEALTH INFORMATION MANAGEMENT ED/UC Physician Report : [id number] Signed Patient: Taniya Field Acct:[id number] Unit: Gaetano [id number] : 1985 Arrival Date: 07/25/20 Age/Sex: 34 [...] Normal Affect Skin Skin exam: Dry, Intact, [place] and Warm Course Course Course Narrative: Patient [...] on File>> Initializing User: Lico DIAZ 07/25/20 1419 Signed by: Lico Llamas 07/25/20 4060 Estevan Rich MD 07/25/20 0156 Name Value Range Interpretation Code Description Data Victoria rce(s) Supporting Document(s) ID Date Data Source [id number] 07/25/2020 01:46:00 PM EDT [facility] ([facility]on [facility]ionate [...] (applies to non-numeric results) [facility] (Comp assionate [facility]) Bilirubin.total [Presence] in Urine by Test strip Laboratory test res ult [facility] Nitrate [Presence] in Urine Laboratory test result [facility]) Urobilin [Presence] in Urine Laboratory test result 0-0 [facility]) RBC,Ur Laboratory test result 0-2 Abnormal (applies to non -numeric results) [facility] ([facility]) Mucus [Presence] in Urine sediment by Light microscopy Laborator y test result [facility] ([facility]) Epithelial cells [Presence] in Urine sediment by Light microscopy Laboratory test result 0-0 [facility]) ID Date Data Source [id number] 07/25/2020 01:46:00 PM EDT [facility] ([facility]) Name Value Range Interpretation Code Description Data Victoria rce(s) Supporting Document(s) Choriogonadotropin.beta subunit ( test) [Pres ence] in Serum or Plasma Laboratory test result [facility] ([facility]) Choriogonadotropin ( test) [Presence] in Urine Labo ratory test result [facility] ([facility]) Choriogonadotropin [Units/volume] in Urine Laboratory test result [facility] ([facility]) Reference range is Negative To ensure best sensitivity, first morning void is recommended. Dilute, low specific gravity urine may give a falsely negative result. If is suspected, repeat testing with a new specimen 48-72 hours later. Choriogonadotropin [Units/volume] in Urine Laboratory test result [facility] ([facility]) ID Date Data Source [id number] 07/25/2020 04:23:00 PM EDT [facility] Name Value Range Interpretation Code Description Data Victoria rce(s) Supporting Document(s) COLOR,UR LUIS M YELLOW A [facility] APPEARANCE,UR CLOUDY CLEAR A [facility] PH,UR 6.0 5.0-8.0 [facility] SPECIFIC GRAVITY,UR 1.019 1.002-1.035 [facility] PROTEIN,UR 100 MG/DL NEGATIVE A [facility] GLUCOSE, UR NEGATIVE MG/DL NEGATIVE [facility] KETONES,UR NEGATIVE MG/DL NEGATIVE [facility] OCCULT BLOOD,UR LARGE NEGATIVE A [facility] NITRATE,UR NEGATIVE NEGATIVE [facility] LEUKOCYTE ESTERASE ,UR TRACE NEGATIVE A [facility] BILIRUBIN,UR NEGATIVE NEGATIVE [facility] UROBILINOGEN,UR 0.2-1.0 EU MG/DL NEG-0-1.0 [facility] RBC,UR >100 PER HPF 0-2 [facility] URINE EPITH MANY PER/LPF FEW-MOD [facility] MUCUS,UR FEW PER HPF NONE SEEN [facility] ID Date Data Source [id number] 07/25/2020 04:20:00 PM EDT [facility] Name Value Range Interpretation Code Description Data Victoria rce(s) Supporting Document(s) HCG QUALITATIVE SPECIMEN URINE [facility] ID Date Data Source [id number] 07/25/2020 04:20:00 PM EDT [facility] Name Value Range Interpretation Code Description Data Victoria rce(s) Supporting Document(s) HCG RESULT,U NEGATIVE [facility] Reference range is Negative To ensure best sensitivity, first morning void is recommended. Dilute, low specific gravity urine may give a falsely negative result. If is suspected, repeat testing with a new specimen 48-72 hours later. ID Date Data Source [id number] 07/02/2020 01:15:21 PM EDT [facility] PATIENT INFORMATIONPatient MRN Name Date of [id number] Taniya Field 1985 34 y.o. Weight Gender PT Class 118.4 kg F EmergencyPT Location Admission Date/Time [facility]4 --- --- EPI ID [facility] Admitting Provider [id number] [facility] ADULT EDHistoryChief ComplaintPatient presents with Flank [...] rce(s) Supporting Document(s) ID Date Data Source [id number] 07/03/2020 04:44:00 PM T [facility] Release to patient->ImmediateUnit Colle t Name Value Range Interpretation Code Description Data Victoria rce(s) Supporting Document(s) URINE CULTURE [facility] ID Date Data Source [id number] 07/02/2020 12:59:00 PM EDT [facility] Release to patient->ImmediateUnit [facility] t Name Value Range Interpretation Code Description Data Victoria rce(s) Supporting Document(s) eGFR BLACK [facility] For both eGFR and eGFR BLACK, the accuracy of theeGFR calculation is contingent on a stable level of serumcreatinine. The eGFR calculation is based on an IDMS-Traceablecreatinine assay and is normalized to 1.73 "meters squared"body surface area. An eGFR less than 60 may alter clinicalmanagement decisions. An eGFR greater than or equal to 60 doesnot exclude kidney disease. ID Date Data Source [id number] 07/02/2020 12:59:00 PM EDT [facility] Release to patient->ImmediateUnit [facility] t Name Value Range Interpretation Code Description Data Victoria rce(s) Supporting Document(s) eGFR [facility] ID Date Data Source [id number] 07/02/2020 12:26:00 PM EDT [facility] Release to patient->ImmediateUnit [facility] t Name Value Range Interpretation Code Description Data Victoria rce(s) Supporting Document(s) DIFFERENTIAL AUTOMATED Normal (applies to non-numeric res ults) [facility] ID Date Data Source [id number] 07/02/2020 02:01:00 PM EDT [facility] Release to patient->ImmediateUnit [facility] t Name Value Range Interpretation Code Description Data Victoria rce(s) Supporting Document(s) SQUAMOUS EPITH, UR PRESENT [NEGATIVE] Abnormal (applies to n on-numeric results) [facility] CAOX YEISON, UR PRESENT [NEGATIVE] Abnormal (applies to non-numeric results) [facility] ID Date Data Source [id number] 07/02/2020 02:01:00 PM EDT [facility] Release to patient->ImmediateUnit [facility] t Name Value Range Interpretation Code Description Data Victoria rce(s) Supporting Document(s) RBC, UR 0-2 Normal (applies to non-numeric resul ts) [facility] WBC, UR 0-9 Normal (applies to non-numeric resul ts) [facility] BACTERIA, UR PRESENT /[HPF] [NEGATIVE] Abnormal (applie s to non-numeric results) [facility] ID Date Data Source [id number] 07/02/2020 12:59:00 PM EDT [facility] Release to patient->ImmediateUnit Collec t Name Value Range Interpretation Code Description Data Victoria rce(s) Supporting Document(s) SODIUM 135-145 Normal (applies to non-numeric resul ts) [facility] POTASSIUM 3.5-5.1 Normal (applies to non-numeric resul ts) [facility] CHLORIDE 98-108 Normal (applies to non-numeric resul ts) [facility] CO2 22-30 Normal (applies to non-numeric results) [facility] ANION GAP 4-16 Normal (applies to non-numeric resul ts) [facility] BUN 8-20 Normal (applies to non-numeric results) [facility] CREATININE 0.5-0.9 Normal (applies to non-numeric resul ts) [facility] GLUCOSE 65-100 Normal (applies to non-numeric resul ts) [facility] CALCIUM 8.5-10.2 Normal (applies to non-numeric resul ts) [facility] ID Date Data Source [id number] 07/02/2020 12:30:00 PM EDT [facility] Release to patient->ImmediateUnit Collec t Name Value Range Interpretation Code Description Data Victoria rce(s) Supporting Document(s) COLOR, UR YELLOW Normal (applies to non-numeric resul ts) [facility] APPEARANCE, UR CLOUDY [CLEAR] Abnormal (applies to non-numeric results) [facility] GLUCOSE, UR NEG mg/dL [NEGATIVE] Normal (applies to non-numeric resu lts) [facility] KETONES, UR NEG mg/dL [NEGATIVE] Normal (applies to non-numeric resu lts) [facility] SPEC GRAVITY, UR 1.005-1.030 [facility] BLOOD, UR NEG [NEGATIVE] Normal (applies to non-numeric resul ts) [facility] PH, UR 5.0-8.0 Normal (applies to non-numeric resul ts) [facility] PROTEIN, UR NEG mg/dL [NEGATIVE] Normal (applies to non-numeric resu lts) [facility] NITRITES, UR NEG [NEGATIVE] Normal (applies to non-numeric res ults) [facility] LEUK ESTERASE, UR NEG [NEGATIVE] Normal (applies to non-numeri c results) [facility] ID Date Data Source [id number] 07/02/2020 12:26:00 PM EDT [facility] Release to patient->ImmediateUnit Colle t Name Value Range Interpretation Code Description Data Victoria rce(s) Supporting Document(s) WBC 4.0-11.0 Normal (applies to non-numeric resul ts) [facility] RBC 3.80-5.20 Normal (applies to non-numeric resul ts) [facility] HGB 12.0-16.0 Normal (applies to non-numeric resul ts) [facility] HCT 35-47 Normal (applies to non-numeric results) [facility] MCV 80-100 Normal (applies to non-numeric resul ts) [facility] MCH 26.0-34.0 Normal (applies to non-numeric resul ts) [facility] MCHC 31.0-37.5 Normal (applies to non-numeric resul ts) [facility] RDW 0.0-15.2 Above high normal [facility] PLATELET COUNT 150-450 Normal (applies to non-numeric r esults) [facility] NEUTROPHILS 45-75 Normal (applies to non-numeric resu lts) [facility] LYMPHOCYTES 15-45 Normal (applies to non-numeric resu lts) [facility] MONOCYTES 0-15 Normal (applies to non-numeric resul ts) [facility] EOSINOPHILS 0-5 Normal (applies to non-numeric resu lts) [facility] BASOPHILS 0-3 Normal (applies to non-numeric resul ts) [facility] NEUTROPHIL # 1.8-8.0 Normal (applies to non-numeric res ults) [facility] LYMPHOCYTE # 1.0-4.8 Normal (applies to non-numeric res ults) [facility] MONOCYTE # 0.1-1.0 Normal (applies to non-numeric resul ts) [facility] EOSINOPHIL # 0.0-0.6 Normal (applies to non-numeric res ults) [facility] BASOPHIL # 0.0-0.2 Normal (applies to non-numeric resul ts) [facility] ID Date Data Source [id number] 06/30/2020 08:42:10 PM EDT [facility] Note Status: FINAL (SIGNED)Full Name: MICHELLE HUERTA LASELLEBirth Date: 1985Visit ID: [id number] Record Number: [id number]: 34YSex: FemaleRoom Location: ER ROOMSBed Location: ER BD 1Date of Service: 06/20/2020 09:30Creation Date: 06/20/2020 09:30Created By[facility] Physician: FORTUNATO CONTRERASTime patient first seen: [...] Urine Turbidity;CLOUDY;;;Final Result ;06/20/2020 09:30:00URINALYSIS ROUTINE;Dipstick Specific [place];1.025;(1.000-1.030);;Final Result ;06/20/2020 09:30:00URINALYSIS ROUTINE;Dipstick Urine pH;5.0;(5.0- 8.0);;Final [...] not require critical care timeMidlevel signature: ARCHIE MORALESorharleen signature date: 06/20/2020 18:10Physician signature: FAUSTO AMADOhysician signature date: 06/28/2020 07:19 Name Value Range Interpretation Code Description Data Victoria rce(s) Supporting Document(s) ID Date Data Source [id number] 06/28/2020 11:59:00 AM EDT [facility] Name Value Range Interpretation Code Description Data Victoria rce(s) Supporting Document(s) SODIUM 138 mmol/L 136-[address] [facility] POTASSIUM 4.2 mmol/L 3.5-5.[address] [facility] CHLORIDE 107 mmol/L 100-[address] [facility] CO2 23 mmol/L 21-[address] [facility] GLUCOSE 90 mg/dL 70-[address] [facility] BUN 15 mg/dL 7-[address] [facility] CREATININE 0.7 mg/dL 0.6-1.[address] [facility] Normal Kidney Function or Mild Disease - GFR >OR= 60Chronic Kidney Disease - GFR 15-59Renal Failure - GFR < 15GFR not calculated on patients under 18 years of age. CALCIUM 9.0 mg/dL 8.5-10.[address] [facility] GFR >[address] [facility] T BILI 0.3 mg/dL 0.0-1.[address] [facility] T PROTEIN 7.1 gm/dL 6.4-8.[address] [facility] ALBUMIN 3.9 gm/dL 3.4-4.[address] [facility] ALK PHOS 113 U/L 40-[address] [facility] ALT (SGPT) 42 U/L 0-[address] [facility] AST (SGOT) 39 U/L 5-[address] [facility] ID Date Data Source [id number] 06/28/2020 11:44:00 AM EDT [facility] Name Value Range Interpretation Code Description Data Victoria rce(s) Supporting Document(s) WBC 6.2 K/uL 4.8-10.[address] [facility] RBC 4.04 M/uL 4.20-5.[address] [facility] HEMOGLOBIN 11.7 gm/dL 12.0-16.[address] [facility] HEMATOCRIT 34.6 % 36.0-48.[address] [facility] MCV 85.8 fL 80.0-100.[address] [facility] MCHC 33.7 % 30.0-36.[address] [facility] MCH 28.9 pg 27.0-34.[address] [facility] RDW 15.0 % 11.0-15.[address] [facility] PLATELET 334 K/uL 130-[address] [facility] MPV 6.6 fL 6.0-12.[address] [facility] NE% 59 % 37-[address] [facility] LY% 32 % 10-[address] [facility] MO% 7 % 0-[address] [facility] Eosinophils [#/volume] in Blood by Automated count 2 % <=[address] [facility] BA% 0 % <=[address] [facility] NE# 3.7 K/uL 1.8-8.6 [facility] [facility] LYMPH# 2.0 K/uL 0.5-5.[address] [facility] MONO# 0.4 K/uL 0.0-1.[address] [facility] EOS# 0.1 K/uL 0.0-0.[address] [facility] BASO# 0.0 K/ul 0.0-0.[address] [facility] ID Date Data Source [id number] 06/30/2020 01:24:00 PM EDT [facility] CULTURE OBSERVATIONS 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 [facility] RBC >100 /HPF NONE SEEN ! [facility] [employer] has definedMicroscopic Hematuria as 3 or more RBC per highpowered field from a single positive urinalysis withmicroscopy. BACTERIA FEW /HPF NONE SEEN ! [facility] EPITHELIAL CELLS MODERATE /HPF NONE SEEN ! [facility] ID Date Data Source [id number] 06/28/2020 11:34:00 AM EDT [facility] Name Value Range Interpretation Code Description Data Victoria rce(s) Supporting Document(s) COLOR ORANGE [facility] APPEARANCE TURBID CLEAR ! [facility] SPECIFIC GRAVITY 1.015 1.000-1.030 [facility] ital pH 5.0 5.0-8.[address] [facility] LEUKOCYTES 2+ NEGATIVE ! [facility] NITRATE POSITIVE NEGATIVE ! [facility] PROTEIN 100 [ 2+] mg/dL NEGATIVE ! [facility] l GLUCOSE NORMAL mg/dL NORMAL [facility] KETONE NEGATIVE mg/dL NEGATIVE [facility] UROBILINOGEN NORMAL mg/dL NORMAL [facility] l BILIRUBIN NEGATIVE mg/dL NEGATIVE [facility] HEMOGLOBIN 3+ NEGATIVE ! [facility] ID Date Data Source [id number] 06/28/2020 12:18:44 PM EDT [facility] al CT - ABD PELVIS NO CONTRAST06/28/2020 [...] stranding clinical correlationis suggested.Dense fatty liver.END OF IMPRESSIONSt[facility] then provides those same results to [facility]. Allresults are available to [facility] and [facility] provider portalusers. [facility] DICOM images are available to [facility] provider portal users only. [facility] DICOMimages are not available to the [facility] provider portal users. There isno current [facility] functionality allowing images to be available through[facility] to [facility] connectivity.Electronically signed By: Desmond Calhoun M.D.Read By: DESMOND Luote: 06/28/2020 12:15 Name Value Range Interpretation Code Description Data Victoria rce(s) Supporting Document(s) ID Date Data Source [id number] 06/21/2020 05:36:10 PM EDT [facility] Name Value Range Interpretation Code Description Data Victoria rce(s) Supporting Document(s) ED Provider Notes [facility] VJTRJb4kGxWTEkIe22/FVZtwCUYnf2QzEYhgEYr6HNeuPXDaN9TxJFK3nN2eYWZ7OVqPIcXoCvOcVKX6 lbm [file] AgICAgICAgICAgICAgICAgICAgICAgICAgICAgICAg ICAgICAgICAgICAgICAgICAgICAgICAgICAgICAgDQogICAgICAgICAgICAgICAgICAgICAgICAgICAg ICAgICAgICAgICAgICAgICAgICAgICAgICAgICAgICAgICAgICAgICAgICAgICAgICAgICAgICAgICAg ICAgICAgICAgICAgDQogICAgICAgICAgICAgICAgIC AgICAgICAgICAgICAgICAgICAgICAgICAgICAgICAgICAgICAgICAgICAgICAgICAgICAgICAgICAgIC AgICAgICAgICAgICAgICAgICAgICAgDQogICAgICAgICAgICAgICAgICAgICAgICAgICAgICAgICAgIC AgICAgICAgICAgICAgICAgICAgICAgICAgICAgICAg ICAgICAgICAgICAgICAgICAgICAgICAgICAgICAgICAgDQogICAgICAgICAgICAgICAgICAgICAgICAg ICAgICAgICAgICAgICAgICAgICAgICAgICAgICAgICAgICAgICAgICAgICAgICAgICAgICAgICAgICAg ICAgICAgICAgICAgICAgDQogICAgICAgICAgICAgIC AgICAgICAgICAgICAgICAgICAgICAgICAgICAgICAgICAgICAgICAgICAgICAgICAgICAgICAgICAgIC AgICAgICAgICAgICAgICAgICAgICAgICAgDQogICAgICAgICAgICAgICAgICAgICAgICAgICAgICAgIC AgICAgICAgICAgICAgICAgICAgICAgICAgICAgICAg ICAgICAgICAgICAgICAgICAgICAgICAgICAgICAgICAgICAgDQogICAgICAgICAgICAgICAgICAgICAg ICAgICAgICAgICAgICAgICAgICAgICAgICAgICAgICAgICAgICAgICAgICAgICAgICAgICAgICAgICAg ICAgICAgICAgICAgICAgICAgDQogICAgICAgICAgIC AgICAgICAgICAgICAgICAgICAgICAgICAgICAgICAgICAgICAgICAgICAgICAgICAgICAgICAgICAgIC AgICAgICAgICAgICAgICAgICAgICAgICAgICAgDQogICAgICAgICAgICAgICAgICAgICAgICAgICAgIC AgICAgICAgICAgICAgICAgICAgICAgICAgICAgICAg TSDuSZVdJZVhYRQsKNLvGOZeXZCeFCDfFHIeYQIuQNQeKIAaQWDvODb1Y1ddMGOfUMWbMQ0mGXt3Rc0+ PVxPWpVrBXF1htHlyK8SFD6cm7SmXWouZPZtx0KmIEb0VB3VWVRiUOdtJN7XGSthal8MQPQlXHXnuPSN d3ivQjFhENA6AQPyLopqCI2ODJMuK0kykdFlJBIiCX QXZVxvZYTVCGoqVTDVMORdDSCyZdQzNErvWP8Dy2UggRR5ZNn+Ei1MBF2fw8VzBFrnQJAgNO1pkz4JUE xKVbGzW3FqkmX1LUY7HEFjIq9HYNOwFDJbhKYbOTEnKSCCZmIcK5KgkA72FJKRMj4+DQplbmRvYmoNCj C4NXZgm9SjOUr4FI7FURTqKGt6gLQuILIlGKSbafjt GJAqLx91SRWgNcyxTYTudAFzIA8qL0Tetgxgic5tJH8DEKE7WOKzDL7pQLYgYZGeKrP1BMIUOE4ZCZQv GSYwzZXzPAIpKJGMHT8SUVthNIN9VtwxrnBjzHJtFOumUF3VBOAkbwOcWqNqLXGCGDi+Tg5ESY4bw0Mk WBpfQfMhID7xyw5XUPyCIuFcX5E5gBDeH4K1VNihHh 5NPMAqQIStYwVxFJGWCUhuIH6DMQ3ixaA0FA6NiOAwNVHxUPPmzGXnIXl8Q21fyJOnHDefKS8QVLM+Pi A+Aq3UHXIsQJFiAXFsVqAsMARHAyZeZ8LgI6NGv4HaJ8IuCC47rAizlyLoDBmeWA7QEW3tRQNjXQGPQH 8XrYFdeR7xnaOkUSJnDOBFJnAmB66axDHkJJBzIGCx IPIjVw2CPXXlT2QomiEwzMrlfkEkAUYcRQGDXH1LGIzrqcYiuOWxdEkqOT67pAajOA4NLr2YTxXbKQ4z un3VfRNiUc2VGKKoTn4UJOHdPSVuQQKeAZW1VXUvViLsVHbwZJTtPEGkBSB5YYSvZPDgTN5ZJzDvAYQf RbY1XhtfLYDlYAHwvy1MGVEnVSJeWoBiQLXqMUZpVZ PsLXtlRRJbGKDpZBX1CNZsEWYkYZ7KSqWyIRIkDIS8GTKcABLvTLEgja2EOWOcSCSmXbb4XPGqRLOeFB AqCFumLEDdNTO7PuC9WJVqEIAsMY6IYbByDAWzONB0TqVrMMHfCOZfze8KAHTpEMWqFXSnYpVaQVNxLV BqCTorVXGrYHP9KEEnQJObFQGyWU1VMbFuJENrPUM5 MLYhMFUmUONgwe6TIYPzYYLbCZW8WlAhGQZqWKWiTGuhGXTuZWVpXmCdTOByETHaWT8MPiHxKOFbTXR6 KBXnEADlAYFynq3ILJXcBAIuGaP8YHNgMKVnNDYaFRluJFBgHCJkMEVkRBIlLDSpHB9TFsXkRTRaGYNl IPeeMUWnPAOwpb9HZLMnVZZqSgL4BOKuZLXjJZJkGL ibISApWVU4EcB2LTQxLFIpUN4XIgZqEQNkLMR3STOxGEHkKKZkdn7UQXZzKIRhSBltEGBiCWVuEAXtQM kuLXZkHVO6Nms2IPGcTXHfOR5UGkLwIWNyZEY1TKAbHRRcSLIszr2BZISxVFAoJxH8QIQzJRHhYIMuPV zqNYNvSFW7HWY5EVVjELFqIB8PKxWmGKZyLHddICMg WOJgNLXqcy6ELVJcIDDbAjWeMVFfKDFrLDQrSKxhNBLmAHR3EQEbBSQuSGXtNM4TUpHlASUhCdBwNuOh JUOfBANpaf0YPASwDWNkDNUaSINmIUVrQHZlRXnkCICrAMUlDUQ5DQGfCFCjLR0WYjVwXKDpOdP6ORBl QJJqJPUgrq2SXCKcYWHpPTX3LQLnPOBkLMXkQGxzHK LhSOFmNfJlVEUlNUHvVQ7YQwGaJAZsWvS6DJRsTSYjTSRpqk9GUNSpFRVeVev7TsZrKEVmHLBvEEo6sc SuvPDfEYn7RO6AS5TorrGlNvwWFw3Nk009JUR8MXPoTj9EQ5bkFn1qVTHwSLAABd1EZVd5MtAdBYI4Eg ZgCLG7R0MxQsIzPpAtLzRmS3YlWHOwXrz+HFr1QSK5 Qln6PPBaGbP3L5YhZmI3PjDbAUB7TtKjTpHxCT1xMVGWRx8+DQpzdGFydHhyZWYNCjMzMDkwDQolJUVP Rg0K ID Date Data Source [id number] 06/21/2020 12:26:39 PM EDT [facility] Patient: TANIYA FIELD : 1985 M RN: [phone] [facility] ST[facility]OT[facility]OL (A/P WO [...] rce(s) Supporting Document(s) ID Date Data Source [id number] 06/22/2020 07:16:00 AM EDT [facility] Name Value Range Interpretation Code Description Data Victoria rce(s) Supporting Document(s) Culture Result 10,000-20,000 colonies/ml Mixed urethral radha [facility] The above 1 analytes were performed by [facility] [id number], ,[place] [address] ID Date Data Source [id number] 06/21/2020 12:46:00 PM EDT [facility] Name Value Range Interpretation Code Description Data Victoria rce(s) Supporting Document(s) AST 49 IU/L 15-37 Above high normal [facility] Sulfasalazine and sulfapyridine have the potential to falsely depressAspartate Aminotransferase results. Baseline values before medication administration are recommended. ALT 54 IU/L 13-56 Normal (applies to non-numeric resul ts) [facility] Sulfasalazine and sulfapyridine have the potential to falsely depressAlanine Aminotransferase results. Baseline values before medication administration are recommended. Alkaline Phosphatase 111 mIU/ml 50-136 Normal (applies to n on-numeric results) [facility] Total Bilirubin 0.30 mg/dl 0.20-1.00 Normal (applies to non-numeric results) [facility] Blood Urea Nitrogen 13 mg/dl 7-18 Normal (applies to non-nume dakota results) [facility] Creatinine 0.73 mg/dl 0.51-0.95 Normal (applies to non-numeric resul ts) [facility] N-Acetylcysteine (NAC) and Metamizole noriega ve the potential to falselydepress Creatinine results. Baseline values before medication adminstration are recommended. Patients undergoing treatment with phenindione will have falselydepressed results. Patients on phenindione therapy should be tested with an alternativeCREA method.Toxic levels of acetaminophen may lead to falsely depressed results forpatient samples. Glomerular Filtration Rate 90.00 mL/min/1.73m2 [facility] GFR Reference Ranges:Normal Function or Mild Renal [...] of Health and the National KidneyFoundation. The [place] method used in calculating this result is traceable to IDMS standards. Glucose 99 mg/dl 70-110 Normal (applies to non-numeric resul ts) [facility] Sulfasalazine has the potential to false ly depress Glucose results. Sulfapyridine has the potential to falsely elevate Glucose results. Baseline values before medication administration are recommended. Calcium 8.8 mg/dl 8.5-10.1 Normal (applies to non-numeric resul ts) [facility] Total Protein 7.3 g/dl 6.4-8.2 Normal (applies to non-numeric re sults) [facility] Albumin 3.4 g/dl 3.4-5.0 Normal (applies to non-numeric resul ts) [facility] Sodium 140 mEq/L 136-145 Normal (applies to non-numeric resul ts) [facility] Potassium 3.5 mEq/L 3.5-5.1 Normal (applies to non-numeric resul ts) [facility] Chloride 109.0 mEq/L 98.0-107.0 Above high normal [facility] Carbon Dioxide 26.3 mMol/L 21.0-32.0 Normal (applies to non-numeric results) [facility] Anion Gap 8.2 7.0-15.0 Normal (applies to non-numeric resul ts) [facility] The above 16 analytes were performed by [facility] [id number] [place] [address],[id number],[place] [address] ID Date Data Source [id number] 06/21/2020 12:46:00 PM EDT [facility] Name Value Range Interpretation Code Description Data Victoria rce(s) Supporting Document(s) Quantative HCG <1 mIU/ml 0-3 Normal (applies to non-numeric r esults) [facility] HCG Reference Ranges by Gestation:Nonpre gnancy0 - 3.0mIU/mL0.2 - 1 week after conception5 - 50mIU/mL1 - 2 weeks after xzhcuqxzlv40 - 500mIU/mL2 - 3 weeks after wsmjqpqofv147 - 5000mIU/mL3 - 4 weeks after kuponwnbon293 - 66236zPU/mL4 - 5 weeks after chnnmsfhfx3264 - 04984kXJ/mL5 - 6 weeks after wiupaexvjj33707 - 24267rIW/mL6 - 8 weeks after zfvktjvqef05409 - 411080fKY/mL2-3 months after bgefpblzmp74123 - 898859cLY/mL The above 1 analytes were performed by [facility] [id number] [place] [address], ,[place] [address] ID Date Data Source [id number] 06/21/2020 12:14:00 PM EDT [facility] Name Value Range Interpretation Code Description Data Victoria rce(s) Supporting Document(s) Urine Color Dark-Yellow Light-Yellow,Yellow Abnormal (ap plies to non-numeric results) [facility] Urine Appearance CLOUDY CLEAR Abnormal (applies to non-numer ic results) [facility] Urine Specific [place] 1.025 1.015-1.025 Normal (a pplies to non-numeric results) [facility] Urine pH 6.0 5.0-7.0 Normal (applies to non-numeric resul ts) [facility] Urine Protein 1+ NEG Abnormal (applies to non-numeric results) [facility] Urine Glucose NEG NEG Normal (applies to non-numeric re sults) [facility] Urine Ketone NEG NEG Normal (applies to non-numeric res ults) [facility] Urine Bilirubin NEG NEG Normal (applies to non-numeric results) [facility] Urine Blood 3+ NEG Abnormal (applies to non-numeric re sults) [facility] Urine Urobilinogen <2.0 <0.2,1.0,<2.0,0.2 Normal (janet lies to non-numeric results) [facility] Urine Leukocyte Esterase 2+ NEG Abnormal (applies to n on-numeric results) [facility] Urine Nitrite NEG NEG Normal (applies to non-numeric re sults) [facility] Urine WBC 9 /hpf 0-2 Above high normal [facility] Urine RBC >180 /hpf 0-2 Above high normal [facility] Urine Squamous Epithelial Cells 15 /hpf 0-0 Abnormal (applies to non-numeric results) [facility] Mucous SLIGHT /lpf NEG,[none] Abnormal (applies to non-numeric re sults) [facility] The above 16 analytes were performed by [facility] [id number] [place] [address],[facility] [id number],[place] [address] ID Date Data Source [id number] 06/21/2020 12:08:00 PM EDT [facility] Name Value Range Interpretation Code Description Data Victoria rce(s) Supporting Document(s) WBC 5.56 x1000/ul 4.80-10.00 Normal (applies to non-numeric re sults) [facility] RBC 4.09 x1Mil/ul 4.20-5.40 Below low normal [facility] Hemoglobin 11.4 g/dl 12.0-16.0 Below low normal [facility] Hematocrit 35.9 % 37.0-47.0 Below low normal [facility] MCV 87.8 fL 81.0-99.0 Normal (applies to non-numeric resul ts) [facility] MCH 27.9 pg 27.0-31.0 Normal (applies to non-numeric resul ts) [facility] MCHC 31.8 g/dl 32.2-37.0 Below low normal [facility] RDW 15.5 % 11.5-14.5 Above high normal [facility] Platelet Count 372 x1000/ul 130-400 Normal (applies to non-numeric results) [facility] MPV 9.4 fL 9.4-12.4 Normal (applies to non-numeric resul ts) [facility] Neutrophils 54.0 % 40.0-74.0 Normal (applies to non-numeric resu lts) [facility] Lymphocytes 34.9 % 19.0-48.0 Normal (applies to non-numeric resu lts) [facility] Monocytes 8.6 % 3.4-9.0 Normal (applies to non-numeric resul ts) [facility] Eosinophils 1.6 % 0.0-7.0 Normal (applies to non-numeric resu lts) [facility] Basophils 0.4 % 0.0-2.0 Normal (applies to non-numeric resul ts) [facility] Immature Granulocytes 0.5 % 0.0-0.5 Normal (applies to non-nu meric results) [facility] Nucleated RBCs 0.00 % 0.00-0.20 Normal (applies to non-numeric r esults) [facility] Abs. Neutrophils 3.00 x1000/ul 1.92-8.31 Normal (applies to non-numeric results) [facility] Abs. Lymphocyte 1.94 x1000/ul 1.20-3.70 Normal (applies to non-n umeric results) [facility] Abs. Monocytes 0.48 x1000/ul 0.14-0.97 Normal (applies to non-nu meric results) [facility] Abs. Eosinophils 0.09 x1000/ul 0.00-0.76 Normal (applie s to non-numeric results) [facility] Abs. Basophils 0.02 x1000/ul 0.00-0.22 Normal (applies to non-n umeric results) [facility] Abs. Immature Gran. 0.03 x1000/ul 0.00-0.02 Above high normal [facility] Abs. Nucleated RBCs 0.00 x1000/ul 0.00-0.02 Normal (appl ies to non-numeric results) [facility] The above 24 analytes [facility] [id number] [place] [address],[facility]#: [id number],[place] [address] ID Date Data Source [id number] 06/21/2020 10:39:52 AM EDT [facility] Name Value Range Interpretation Code Description Data Victoria rce(s) Supporting Document(s) ED Triage Notes [facility] IMQEFa5xRuIXVxBy92/CDXeeDWBpa4AlCAelMHo5QTpxLCQwZ3WqQNW9uG4yTTT6KHeFUoZdApIbJXS6 lbm [file] RKK8Phq6AbK3WJF2DIZpDiIlFDX+CR5vBTr+Hw6Sf6DawaM7jiJfYHxkZCv8ZX8JSXZAV8HNLy== ID Date Data Source [id number] 06/20/2020 11:44:47 AM EDT [facility] Left flank pain, rule out ureteral [...] Volume: Not measured.Miscellaneous: None.IMPRESSION:Normal renal ultrasound.END OF IMPRESSIONSt[facility] then [facility] those same results to [facility]. Allresults are available to [facility] and [facility] provider portalusers. [facility] DICOM images are available to [facility] provider portal users only. [facility] DICOMimages are not available to the [facility] provider portal users. There isno current [facility] functionality allowing images to be available through[facility] to [facility] connectivity.Electronically signed By: Desmond Calhoun M.D.Read By: DESMOND CALHOUNDate: 06/20/2020 11:41 Name Value Range Interpretation Code Description Data Victoria rce(s) Supporting Document(s) ID Date Data Source [id number] 06/20/2020 09:39:13 AM EDT [facility] Note Status: FINAL (SIGNED)Full Name: Kade JONES Date: 1985Visit ID: [id number] Record Number: [id number]: 34YSex: FemaleRoom Location: ER ROOMSBed Location: ER 17Date of Service: 04/30/2020 07:27Creation Date: 04/30/2020 07:27Created [facility] Phys[facility]: FORTUNATO CONTRERASTime patient first seen: [facility] Chief Complaint: Patient is a 34-year-old [...] 07:12 Physical ExamConstcomments: General: NAD, calm, cooperative, [id number] impression: Right sided flank pain OrdersStart Date;Description;Frequency;Ordered By;Status04/30/2020;CBC DIFF ;Once;SIERRA ELDER;Today04/30/2020;COMPREHENSIVE PANEL ;Once;LEDERJO ANN LyonSIERRA;Today04/30/2020;Point of Care /URINE ;Once;SIERRA ELDER;Today04/30/2020;Point [...] Urine Turbidity;HAZY;;;Final Result ;04/30/2020 00:01:00URINALYSIS ROUTINE;Dipstick Specific [place];1.025;(1.000-1.030);;Final Result ;04/30/2020 00:01:00URINALYSIS ROUTINE;Dipstick Urine pH;5.0;(5.0-8.0);;Final Result [...] rce(s) Supporting Document(s) ID Date Data Source [id number] 06/22/2020 07:20:00 AM EDT [facility] CULTURE OBSERVATIONS 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 [facility] RBC >100 /HPF NONE SEEN ! [facility] The [employer] has definedMicroscopic Hematuria as 3 or more RBC per highpowered field from a single positive urinalysis withmicroscopy. BACTERIA MODERATE /HPF NONE SEEN ! [facility] EPITHELIAL CELLS MANY /HPF NONE SEEN ! [facility] ID Date Data Source [id number] 06/20/2020 10:03:00 AM EDT [facility] Name Value Range Interpretation Code Description Data Victoria rce(s) Supporting Document(s) COLOR LUIS M [facility] APPEARANCE CLOUDY CLEAR ! [facility] SPECIFIC GRAVITY 1.025 1.000-1.030 [facility] ital pH 5.0 5.0-8.[address] [facility] LEUKOCYTES 2+ NEGATIVE ! [facility] NITRATE NEGATIVE NEGATIVE [facility] PROTEIN 100 [ 2+] mg/dL NEGATIVE ! [facility] l GLUCOSE NORMAL mg/dL NORMAL [facility] KETONE NEGATIVE mg/dL NEGATIVE [facility] UROBILINOGEN NORMAL mg/dL NORMAL [facility] l BILIRUBIN NEGATIVE mg/dL NEGATIVE [facility] HEMOGLOBIN 3+ NEGATIVE ! [facility] ID Date Data Source [id number] 06/20/2020 09:07:00 AM EDT [facility] AMYL[facility] Name Value Range Interpretation Code Description Data Victoria rce(s) Supporting Document(s) AMYLASE 40 U/L 25-[address] [facility] ID Date Data Source [id number] 06/20/2020 09:07:00 AM EDT [facility] CMP Name Value Range Interpretation Code Description Data Victoria rce(s) Supporting Document(s) SODIUM 139 mmol/L 136-[address] [facility] POTASSIUM 3.8 mmol/L 3.5-5.[address] [facility] CHLORIDE 108 mmol/L 100-[address] [facility] CO2 24 mmol/L 21-[address] [facility] GLUCOSE 106 mg/dL 70-[address] [facility] BUN 12 mg/dL 7-[address] [facility] CREATININE 0.7 mg/dL 0.6-1.[address] [facility] Normal Kidney Function or Mild Disease - GFR >OR= 60Chronic Kidney Disease - GFR 15-59Renal Failure - GFR < 15GFR not calculated on patients under 18 years of age. CALCIUM 8.8 mg/dL 8.5-10.[address] [facility] GFR >[address] [facility] T BILI 0.4 mg/dL 0.0-1.[address] [facility] T PROTEIN 7.3 gm/dL 6.4-8.[address] [facility] ALBUMIN 4.0 gm/dL 3.4-4.[address] [facility] ALK PHOS 120 U/L 40-[address] [facility] ALT (SGPT) 48 U/L 0-[address] [facility] AST (SGOT) 46 U/L 5-[address] [facility] ID Date Data Source [id number] 06/20/2020 09:07:00 AM EDT [facility] LIPASE Name Value Range Interpretation Code Description Data Victoria rce(s) Supporting Document(s) LIPASE 20 U/L 8-[address] [facility] ID Date Data Source [id number] 06/20/2020 09:00:00 AM EDT [facility] Name Value Range Interpretation Code Description Data Victoria rce(s) Supporting Document(s) PTT 30.9 sec 25.6-36.[address] [facility] ID Date Data Source [id number] 06/20/2020 08:57:00 AM EDT [facility] Name Value Range Interpretation Code Description Data Victoria rce(s) Supporting Document(s) PROTIME 11.7 sec 9.4-12.[address] [facility] INR 1.[address] [facility] INR INTERPERTATION 2.0 -3.0 THERAPEUTIC MONITORING2.5-3.5 HEART VALVE REPLACEMENT ID Date Data Source [id number] 06/20/2020 08:54:00 AM EDT [facility] CBC WITH DIFF Name Value Range Interpretation Code Description Data Victoria rce(s) Supporting Document(s) WBC 5.2 K/uL 4.8-10.[address] [facility] RBC 4.00 M/uL 4.20-5.[address] [facility] HEMOGLOBIN 12.2 gm/dL 12.0-16.[address] [facility] HEMATOCRIT 35.2 % 36.0-48.[address] [facility] MCV 87.9 fL 80.0-100.[address] [facility] MCHC 34.6 % 30.0-36.[address] [facility] MCH 30.4 pg 27.0-34.[address] [facility] RDW 15.9 % 11.0-15.[address] [facility] PLATELET 309 K/uL 130-[address] [facility] MPV 6.2 fL 6.0-12.[address] [facility] NE% 54 % 37-[address] [facility] LY% 36 % 10-[address] [facility] MO% 7 % 0-[address] [facility] Eosinophils [#/volume] in Blood by Automated count 2 % <=[address] [facility] BA% 0 % <=[address] [facility] NE# 2.8 K/uL 1.8-8.[address] [facility] LYMPH# 1.9 K/uL 0.5-5.[address] [facility] MONO# 0.4 K/uL 0.0-1.[address] [facility] EOS# 0.1 K/uL 0.0-0.[address] [facility] BASO# 0.0 K/ul 0.0-0.[address] [facility] ID Date Data Source [id number] 05/22/2020 07:42:07 AM EST [facility] NT INFORMATIONPatient MRN Name Date of Age Gend*PT [id number] Taniya Field 1985 34 years F EDPT Location Admission Date/Time Visit ID Attending [id number] 05/21/20 1544 --- --- EPI ID CSN Admitting Provider [id number] ---Attestation signed by Mckayla Jhaveri MD at [...] urinary frequency. Does [facility]with Dr. [facility]. Denies any other complaints today. Deniesheadache, [...] rce(s) Supporting Document(s) ID Date Data Source [id number] 05/21/2020 04:17:14 PM EST Lab [place] [facility] Name Value Range Interpretation Code Description Data Victoria rce(s) Supporting Document(s) POC URINE COLOR Lab [place] URINE APPEARANCE [facility] [place] [facility] POC SPEC GRAV URINE (1.003-1.030) [facility] [place] P[place] PH URINE 5.5 (5.0-7.5) [facility] [place] POC LEUK ESTERASE UR (NEG) A [facility] [place] P[place] NITRITE URINE (NEG) [facility] [place] P[place] PROTEIN URINE 1+ mg/dL (NEG) A Lab [place] [facility] GLUCOSE URINE (NEG) [facility] KETONE URINE (NEG) [facility] UROBILINOGEN UR 0.2 EU/dL (0.2-1.0) [facility] BILIRUBIN UR (NEG) [facility] [place] [facility] BLOOD HGB URINE 3+ (NEG) A [facility] PERFORMED BY [facility] CLINICAL STAFF ID Date Data Source [id number] 05/21/2020 03:57:45 PM EST [facility] Name Value Range Interpretation Code Description Data Victoria rce(s) Supporting Document(s) POC URINE HCG (NEG) [facility] [place] [facility] PERFORMED BY [facility] CLINICAL STAFF ID Date Data Source [id number] 05/17/2020 12:04:32 PM EST [facility]FORMATION[facility] MR[facility] Name Date of Age Gend*PT [id number] Taniya Field 1985 34 years F EDPT Location Admission Date/Time Visit ID Attending [id number] 05/16/201956 --- --- EPI ID CSN Admitting Provider [id number] ---Attestation signed by Mckayla Jhaveri MD at [...] rce(s) Supporting Document(s) ID Date Data Source [id number] 05/17/2020 02:10:08 AM EST [facility]FORMATIONPatient MRN Name Date of Age Gend*PT [id number] Taniya Field 1985 34 years F EDPT Location Admission Date/Time Visit ID Attending [id number] 05/16/201956 --- --- EPI ID CSN Admitting Provider [id number] ---Attestation signed by Bartolo Arellano MD at [...] rce(s) Supporting Document(s) ID Date Data Source [id number] 05/16/2020 08:23:12 PM EST [facility] [place] [facility] PATEL Name Value Range Interpretation Code Description Data Victoria rce(s) Supporting Document(s) POC URINE HCG (NEG) Lab [facility] PERFORMED BY [facility] CLINICAL STAFF ID Date Data Source [id number] 05/18/2020 09:33:13 AM EST [facility] [place] [facility] PATEL SPECIMEN DESCRIPTION MIDSTREAM UR INE,CLEAN CATCHCULTURE RESULTS MIXED UROGENITAL ARDHA; PLEASE SUBMIT A NEW SPEC IMEN IF CLINICALLY INDICATED.REPORT STATUS FINAL 05/18/2020 Name Value Range Interpretation Code Description Data Victoria rce(s) Supporting Document(s) ID Date Data Source [id number] 05/16/2020 09:32:47 PM EST [facility] [place] [facility] PAT[facility] Name Value Range Interpretation Code Description Data Victoria rce(s) Supporting Document(s) URINE WBC (0-5) [facility] [place] [facility] URINE RBC (0-2) [facility] EPITHELIAL CELLS 3+ [HPF] [facility] BACTERIA 1+ [HPF] [facility] ID Date Data Source [id number] 05/16/2020 09:23:22 PM EST [facility] Name Value Range Interpretation Code Description Data Victoria rce(s) Supporting Document(s) SODIUM 142 mmol/L (136-145) [facility] [place] [facility] POTASSIUM 3.9 mmol/L (3.6-5.2) [facility] [place] [facility] CHLORIDE 107 mmol/L (100-108) [facility] [place] [facility] CO2 29 mmol/L (22-31) [facility] [place] [facility] ANION GAP 6 mmol/L (7-16) L [facility] [place] [facility] UREA NITROGEN 16 mg/dL (7-24) [facility] [place] [facility] CREATININE 0.64 mg/dL (0.60-1.00) [facility] [place] [facility] BUN/CREAT RATIO 25.0 RATIO (10.0-20.0) H [facility] GLUCOSE 88 mg/dL (70-99) [facility] [place] [facility] CALCIUM 9.0 mg/dL (8.4-10.2) [facility] [place] [facility] TOTAL PROTEIN 7.3 g/dL (6.4-8.2) [facility] [place] [facility] ALBUMIN 3.5 g/dL (3.5-4.6) [facility] [place] [facility] GLOBULIN 3.8 g/dL (2.7-4.3) [facility] ALB/GLOB RATIO 0.9 RATIO [facility] ALKALINE PHOSPHATASE 119 U/L (45-117) H [facility] BILIRUBIN,TOTAL 0.2 mg/dL (0.0-1.0) [facility] [place] [facility] PLEASE NOTE:Total bilirubin results may be falselyelevated in patients taking Eltrombopag. AST (SGOT) 34 U/L (11-39) [facility] [place] [facility] ALT (SGPT) 54 U/L (12-78) [facility] GFR >60 ml/min/1.73m2 (>59) [facility] [place] [facility] GFR ( AMER) >60 ml/min/1.73m2 (>59) [facility] [place] [facility] GFR INTERPRETATION [facility] --NORMAL KIDNEY FUNCTION OR MILD DISEASE - GFR >OR= 60CHRONIC KIDNEY DISEASE - GFR 15 - 59RENAL FAILURE - GFR <15 Est. GFR calculation based on the MDRDstudy equation, which assumes a steadystate for creatinine. Est. GFR should notbe used for medication dosing. ID Date Data Source [id number] 05/16/2020 09:20:31 PM EST [facility] Name Value Range Interpretation Code Description Data Victoria rce(s) Supporting Document(s) MAGNESIUM 2.3 mg/dL (1.7-2.4) [facility] [place] [facility] ID Date Data Source [id number] 05/16/2020 08:47:09 PM EST [facility] [place] [facility] Name Value Range Interpretation Code Description Data Victoria rce(s) Supporting Document(s) COLOR [facility] [place] [facility] APPEARANCE [facility] [place] [facility] SPEC GRAV URINE 1.027 (1.003-1.030) [facility] PH URINE 5.5 (5.0-7.5) [facility] [place] [facility] [place] LEUK ESTERASE 1+ (NEG) A [facility] [place] [facility] [place] NITRITE URINE (NEG) [facility] [place] [facility] [place] PROTEIN URINE 2+ (NEG) A [facility] [place] [facility] [place] GLUCOSE URINE (NEG) [facility] [place] [facility] [place] KETONE URINE (NEG) [facility] [place] [facility] [place] UROBILINOGEN 0.2 mg/dL (0-1.0) [facility] [place] [facility] [place] BILIRUBIN URINE (NEG) [facility] [place] [facility] [place] BLOOD/HGB URINE 3+ (NEG) A [facility] [place] [facility] [place] ID Date Data Source [id number] 05/16/2020 08:27:52 PM EST [facility] [place] [facility] Name Value Range Interpretation Code Description Data Victoria rce(s) Supporting Document(s) WBC 8.4 10*3/uL (4.1-11.0) [facility] [place] [facility] [place] RBC 4.16 10*6/uL (4.00-5.40) [facility] [place] [facility] [place] HGB 11.6 g/dL (12.0-16.0) L [facility] [place] [facility] [place] HCT 35.1 % (36.0-47.0) L [facility] [place] [facility] [place] MCV 84.5 fL (80.0-95.0) [facility] [place] [facility] [place] MCH 27.8 pg (27.0-32.0) [facility] [place] [facility] [place] MCHC 32.9 g/dL (32.0-36.0) [facility] [place] [facility] [place] RDW 15.0 % (10.5-14.5) H [facility] [place] [facility] [place] PLT 298 10*3/uL (150-450) [facility] [place] [facility] [place] MPV 7.1 fL (7.1-10.7) [facility] [place] [facility] [place] NEUT % 59.8 % (35.0-75.0) [facility] [place] [facility] [place] LYMPH % 32.1 % (16.0-52.0) [facility] [place] [facility] [place] MONO % 6.5 % (0.0-8.0) [facility] [place] [facility] [place] EOS % 1.4 % (0.0-5.0) [facility] [place] [facility] [place] BASO % 0.2 % (0.0-4.0) [facility] [place] [facility] [place] NEUT # 5.0 10*3/uL (1.8-7.7) [facility] [place] [facility] [place] LYMPH # 2.7 10*3/uL (1.2-4.8) [facility] [place] [facility] [place] MONO # 0.6 10*3/uL (0.0-0.8) [facility] [place] [facility] [place] Eosinophils [#/volume] in Blood by Automated count 0.1 10*3/uL (0.0-0 .5) [facility] [place] [facility] [place] BASO # 0.0 10*3/uL (0.0-0.2) [facility] [place] [facility] [place] ID Date Data Source "" 05/11/2020 11:57:[address] [address] Patient Name: Taniya Field Exam Date: 05/11/20 [...] 1. Moderate constipation. Professional interpretation performed by [facility] Medical Imaging at [facility] . End of diagnostic report: [id number] Signed: Boyd Armstrong MD 05/11/20 1227 Interpreted by: Boyd ArmstrongTranscribed by: [place] [address] Patient Name: Taniya Field Exam Date: 03/29/20 [...] demonstrates hepatic steatosis. Professional interpretation performed at [facility] . End of diagnostic report: [id number] Signed: Grazyna Payton MD 03/29/20 6813 Interpreted by: Grazyna PaytonTranscribed by: Grazyna Payton Name Value Range Interpretation Code Description Data Victoria rce(s) Supporting Document(s) ID Date Data Source "" 03/29/2020 06:37:00 [place] [address] Patient Name: Taniya Field Exam Date: 05/11/20 [...] 1. Moderate constipation. Professional interpretation performed by [facility] Medical Imaging at [facility] . End of diagnostic report: [id number] Signed: Boyd Armstrong MD 05/11/20 1227 Interpreted by: Boyd ArmstrongTranscribed by: [facility] [place] [address] Patient Name: Taniya Field Exam Date: 03/29/20 [...] demonstrates hepatic steatosis. Professional interpretation performed at [facility] . End of diagnostic report: [id number] Signed: Grazyna Payton MD 03/29/201842 Interpreted by: Grazyna PaytonTranscribed by: Grazyna Payton Name Value Range Interpretation Code Description Data Victoria rce(s) Supporting Document(s) ID Date Data Source [id number] 05/11/2020 11:00:00 AM EST [facility] ([facility]) Name Value Range Interpretation Code Description Data Victoria rce(s) Supporting Document(s) Potassium [Moles/volume] in Serum or Plasma 4.1 meq/L 3.5-5.3 [facility] ([facility]) Sodium [Moles/volume] in Serum or Plasma 139 meq/L 135-145 [facility] ([facility]) Carbon dioxide, total [Moles/volume] in Serum or Plasma 27 meq/L 22 -33 [facility] ([facility]) Chloride [Moles/volume] in Serum or Plasma 106 meq/L 94-110 [facility] ([facility]) Anion gap in Serum or Plasma 10 5-16 [facility] ([facility]) Urea nitrogen [Mass/volume] in Serum or Plasma 12 mg/dL 7-25 [facility] ([facility]) Creatine [Mass/volume] in Serum or Plasma 0.8 mg/dL 0.6-1.4 [facility] ([facility]) Glomerular filtration rate/1.73 sq M.pre dicted [Volume Rate/Area] in Serum or Plasma by Creatinine-based formula (MDRD) 81.2 mL/min [facility] ([facility]) Stage G2 - Mildly decreased kidney funct [...] Serum or Plasma 15 8 -36 [facility] ([facility]) Calcium [Mass/volume] in Serum or Plasma 8.7 mg/dL 8.7-10.5 [facility] ([facility]) Glucose [Mass/volume] in Serum or Plasma 131 mg/dL 70-100 Above high normal [facility] Aspartate aminotransferase [Enzymatic activity/volume] in Serum or Plasma 51 U/L 5-40 Above high normal [facility] ([facility]) Bilirubin.total [Mass/volume] in Serum or Plasma 0.3 mg/dL 0.1-1.3 [facility] ([facility]) Alanine aminotransferase [Enzymatic activity/volume] in Seru m or Plasma 65 U/L 5-48 Above high normal [facility]) Alkaline phosphatase [Enzymatic activity/volume] in Serum or Plasma 120 U/L 40-140 [facility] ([facility]) Albumin [Mass/volume] in Serum or Plasma 4.4 g/dL 3.0-5.1 [facility] ([facility]) Protein [Mass/volume] in Serum or Plasma 6.4 g/dL 5.9-8.3 [facility] ([facility]) Albumin/Globulin [Mass Ratio] in Serum or Plasma 2.2 g/dL 1.0-3.0 [facility] ([facility]) Globulin [Mass/volume] in Serum by calculation 2.0 g/dL 1.5-3.5 [facility] ([facility]) ID Date Data Source [id number] 05/11/2020 11:00:00 AM EST [facility] ([facility]) Name Value Range Interpretation Code Description Data Victoria rce(s) Supporting Document(s) Choriogonadotropin.beta subunit ( test) [Pres ence] in Serum or Plasma Laboratory test result [facility] ([facility]) Choriogonadotropin [Units/volume] in Serum or Plasma Laboratory melisa t result [facility] ([facility]) Reference range is Negative "Extreme" early may have low levels of HCG present. If is suspected, repeat testing with a new specimen in 48-72 hours ID Date Data Source [id number] 05/11/2020 11:00:00 AM EST [facility] ([facility]) Name Value Range Interpretation Code Description [...] Automated count 32.0 g/dL 32-36 [facility] ([facility]) Erythrocyte distribution width [Ratio] [...] by Automated count 0.01 10^3/uL 0.00-0. 20 [facility] ([facility]) ID Date Data Source [id number] 05/11/2020 11:09:00 AM EST [facility] Name Value Range Interpretation Code Description Data Victoria rce(s) Supporting Document(s) WHITE BLOOD COUNT 6.20 10^3/uL 4.00-10.50 N [facility] ealth RED BLOOD COUNT 4.15 10^6/uL 3.90-5.20 N [facility] th HEMOGLOBIN 11.3 G/DL 11.5-15.6 L [facility] HEMATOCRIT 35.3 % 35.0-46.0 N [facility] MCV 85.1 FL 80.0-100.0 N [facility] MCH 27.2 PG 27.0-34.0 N [facility] MCHC 32.0 G/DL 32-36 N [facility] RDW 14.4 % 11.5-14.5 N [facility] PLATELET COUNT 333 10^3/uL 130-400 N [facility] MPV 9.0 FL 8.7-13.2 N [facility] GRAN % (AUTO) 63.2 % 42.0-75.0 [facility] LYMPH % (AUTO) 28.2 % 20.0-51.0 [facility] MONO % (AUTO) 6.1 % 2.0-15.0 N [facility] EOS % (AUTO) 1.8 % 0.0-11.0 [facility] BASO % (AUTO) 0.2 % 0.0-2.0 N [facility] IG % (AUTO) 0.5 % 1.00-5.00 [facility] IG # (AUTO) 0.0 10^3/uL <0.5 [facility] GRAN # (AUTO) 3.92 10^3/uL 1.50-6.50 [facility] LYMPH # (AUTO) 1.8 k/uL 1.0-5.0 [facility] MONO # (AUTO) 0.38 k/uL 0.20-1.50 N [facility] EOS # (AUTO) 0.11 10^3/uL 0.00-1.10 N [facility] BASO # (AUTO) 0.01 10^3/uL 0.00-0.20 [facility] ID Date Data Source [id number] 05/11/2020 11:22:00 AM EST [facility] Name Value Range Interpretation Code Description Data Victoria rce(s) Supporting Document(s) HCG QUALITATIVE SPECIMEN [facility] ID Date Data Source [id number] 05/11/2020 11:29:00 AM [facility] Name Value Range Interpretation Code Description Data Victoria rce(s) Supporting Document(s) SODIUM 139 MEQ/L 135-145 N [facility] POTASSIUM 4.1 MEQ/L 3.5-5.3 N [facility] CHLORIDE 106 MEQ/L 94-110 [facility] CARBON DIOXIDE 27 MEQ/L 22-33 N [facility] ANION GAP 10 5-16 N [facility] BLOOD UREA NITRO 12 MG/DL 7-25 N [facility] CREATININE 0.8 MG/DL 0.6-1.4 N [facility] GFR 81.2 ML/MIN [facility] Stage G2 - Mildly decreased kidney func tion The GFR is an estimate of the Glomerular Filtration Rate. It is an aid to assess a patient's renal function. It is not a conclusive diagnosis of kidney disease. GFR normal is >=90 The MDRD GFR calculation is considered valid between the ages of 18 and 75 years only. BUN/CREAT RATIO 15 8-36 N [facility] GLUCOSE 131 MG/DL 70-100 H [facility] CA 8.7 MG/DL 8.7-10.5 N [facility] BILIRUBIN,TOTAL 0.3 MG/DL 0.1-1.3 N [facility] AST 51 U/L 5-40 H [facility] ALT 65 U/L 5-48 H [facility] ALKALINE PHOSPHATASE 120 U/L 40-140 N [facility] alth TOTAL PROTEIN 6.4 G/DL 5.9-8.3 N [facility] ALBUMIN 4.4 G/DL 3.0-5.1 N [facility] GLOBULIN 2.0 G/DL 1.5-3.5 N [facility] ALB/GLOB RATIO 2.2 G/DL 1.0-3.0 N [facility] ID Date Data Source [id number] 05/11/2020 11:22:00 AM [facility] Name Value Range Interpretation Code Description Data Victoria rce(s) Supporting Document(s) HCG RESULT,S NEGATIVE [facility] Reference range is Negative "Extreme" early may have low levels of HCG present. If is suspected, repeat testing with a new specimen in 48-72 hours ID Date Data Source [id number] 05/11/2020 10:45:00 [place] [address] HEALTH INFORMATION MANAGEMENT ED/UC Physician Report : [id number] Signed Patient: Taniya Field Acct:[id number] Unit: [id number] : 1985 Arrival Date: 05/11/20 Age/Sex: 34 [...] IMPRESSION: 1. Moderate constipation.Professional interpretation performed by [facility] Medical Imaging at [facility] .End of diagnostic report: [id number]: Boyd Armstrong MD05/11/20 1227 Critical Care Time [...] rce(s) Supporting Document(s) ID Date Data Source [id number] 05/11/2020 10:30:00 AM EST [facility] ([facility]) Name Value Range Interpretation Code Description Data Victoria rce(s) Supporting Document(s) Bacteria identified in Urine by Culture Laboratory test result [facility] ([facility]) Run: 05/12/20 1030 INTERFACED REPORT Name: Taniya Field Age/Sex: 34/F Location: ED Acct: [id number] Unit: [id number] Status: DEP ER Room/Bed: Re05/11/20 Disch: Att Dr: Kyree John MD Specimen #: [id number] Ordered : 05/11/20 Collected : 05/11/20 By: ARLYN Received: 05/11/20 By: DELLA Source: URINE CC Specimen Description: Procedure Result COLONY COUNT Final COLONY COUNT GREATER THAN 100,000 CFU/ML URINE CULTURE Final PRESENCE OF 3 OR MORE ORGANISMS-SPECIMEN MAY BE CONTAMINATED SUGGEST REPEAT END OF REPORT ID Date Data Source [id number] 05/11/2020 10:30:00 AM EST [facility] ([facility] [...] ([facility]) ID Date Data Source [id number] 05/11/2020 11:38:00 AM EST [facility] Run: 05/12/201029 INTERFACED REPORT Name: Taniya Field Age/Sex: 34/F Location: ED Acct: [id number] Unit: [id number] Status: DEP ER Room/Bed: Re05/11/20 Disch: Tatiana Dr: Kyree John MD Specimen #: [id number] Ordered : 05/11/20 Collected : 05/11/20 By: ARLYN Received: 05/11/20 By: DELLA Source: URINE CC Specimen Description: Procedure Result - COLONY COUNT Final COLONY COUNT GREATER THAN 100,000 CFU/ML URINE CULTURE Final PRESENCE OF 3 OR MORE ORGANISMS-SPECIMEN MAY BE CONTAMINATED SUGGEST REPEAT END OF REPORT Name Value Range Interpretation Code Description Data Victoria rce(s) Supporting Document(s) COLOR,UR YELLOW YELLOW [facility] APPEARANCE,UR CLOUDY CLEAR A [facility] PH,UR 5.0 5.0-8.0 [facility] SPECIFIC GRAVITY,UR 1.020 1.002-1.035 [facility] PROTEIN,UR 30 MG/DL NEGATIVE A [facility] GLUCOSE, UR NEGATIVE MG/DL NEGATIVE [facility] KETONES,UR NEGATIVE MG/DL NEGATIVE [facility] OCCULT BLOOD,UR LARGE NEGATIVE A [facility] NITRATE,UR NEGATIVE NEGATIVE [facility] LEUKOCYTE ESTERASE ,UR MODERATE NEGATIVE A [facility] BILIRUBIN,UR NEGATIVE NEGATIVE [facility] UROBILINOGEN,UR 0.2-1.0 EU MG/DL NEG-0-1.0 [facility] RBC,UR >100 PER HPF 0-2 A [facility] WBC,UR 25-49 PER HPF <5 A [facility] URINE EPITH MANY PER/LPF FEW-MOD [facility] BACTERIA,UR RARE PER HPF NONE [facility] MUCUS,UR RARE PER HPF NONE SEEN [facility] ID Date Data Source [id number] 05/12/2020 10:30:00 AM EST [facility] Run: 05/12/201029 INTERFACED REPORT Name: EmirTaniya Age/Sex: 34/F Location: ED Acct: [id number] Unit: [id number] Status: DEP ER Room/Bed: Re05/11/20 Disch: Tatiana Dr: Kyree John MD Specimen #: [id number] Ordered : 05/11/20 Collected : 05/11/20 By: [...] Date Data Source [id number]/06/2020 11:37:00 AM EST [facility] Name Value Range Interpretation Code Description Data Victoria rce(s) Supporting Document(s) SARS-CoV-2 RdRp gene result Negative [facility] This lab was ordered by Perfecto edwards and reported by [facility]. ID Date Data Source [id number] 05/06/2020 12:00:00 AM EST [facility] Name Value Range Interpretation Code Description Data Victoria rce(s) Supporting Document(s) SARS coronavirus 2 RNA [Presence] in Res piratory specimen by WILLIAN with probe detection NEGATIVE [facility] and reported by [employer]. ID Date Data Source [id number] 04/30/2020 08:31:00 AM EST [facility] Name Value Range Interpretation Code Description Data Victoria rce(s) Supporting Document(s) SODIUM 139 mmol/L 136-[address] [facility] POTASSIUM 4.3 mmol/L 3.5-5.[address] [facility] CHLORIDE 107 mmol/L 100-[address] [facility] CO2 24 mmol/L 21-[address] [facility] GLUCOSE 98 mg/dL 70-[address] [facility] BUN 13 mg/dL 7-[address] [facility] CREATININE 0.9 mg/dL 0.6-1.[address] [facility] Normal Kidney Function or Mild Disease - GFR >OR= 60Chronic Kidney Disease - GFR 15-59Renal Failure - GFR < 15GFR not calculated on patients under 18 years of age. CALCIUM 8.8 mg/dL 8.5-10.[address] [facility] GFR >[address] [facility] T BILI 0.3 mg/dL 0.0-1.[address] [facility] T PROTEIN 7.5 gm/dL 6.4-8.[address] [facility] ALBUMIN 3.9 gm/dL 3.4-4.[address] [facility] ALK PHOS 109 U/L 40-[address] [facility] ALT (SGPT) 51 U/L 0-[address] [facility] AST (SGOT) 50 U/L 5-[address] [facility] ID Date Data Source [id number] 04/30/2020 08:01:00 AM EST [facility] Name Value Range Interpretation Code Description Data Victoria rce(s) Supporting Document(s) WBC 7.3 K/uL 4.8-10.[address] [facility] RBC 4.01 M/uL 4.20-5.[address] [facility] HEMOGLOBIN 11.6 gm/dL 12.0-16.[address] [facility] HEMATOCRIT 34.7 % 36.0-48.[address] [facility] MCV 86.4 fL 80.0-100.[address] [facility] MCHC 33.4 % 30.0-36.[address] [facility] MCH 28.9 pg 27.0-34.[address] [facility] RDW 13.5 % 11.0-15.[address] [facility] PLATELET 295 K/uL 130-[address] [facility] MPV 6.8 fL 6.0-12.[address] [facility] NE% 60 % 37-[address] [facility] LY% 30 % 10-[address] [facility] MO% 7 % 0-[address] [facility] Eosinophils [#/volume] in Blood by Automated count 2 % <=[address] [facility] BA% 0 % <=[address] [facility] NE# 4.4 K/uL 1.8-8.[address] [facility] LYMPH# 2.2 K/uL 0.5-5.[address] [facility] MONO# 0.5 K/uL 0.0-1.[address] [facility] EOS# 0.2 K/uL 0.0-0.[address] [facility] BASO# 0.0 K/ul 0.0-0.[address] [facility] ID Date Data Source [id number] 05/02/2020 09:38:00 AM EST [facility] CULTURE OBSERVATIONS 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 [facility] RBC >100 /HPF NONE SEEN ! [facility] [employer] has definedMicroscopic Hematuria as 3 or more RBC per highpowered field from a single positive urinalysis withmicroscopy. BACTERIA FEW /HPF NONE SEEN ! [facility] EPITHELIAL CELLS FEW /HPF NONE SEEN ! [facility] al ID Date Data Source [id number] 04/30/2020 08:42:00 AM EST [facility] Name Value Range Interpretation Code Description Data Victoria rce(s) Supporting Document(s) COLOR LUIS M [facility] APPEARANCE HAZY CLEAR ! [facility] SPECIFIC GRAVITY 1.025 1.000-1.030 [facility] pH 5.0 5.0-8.[address] [facility] LEUKOCYTES 1+ NEGATIVE ! [facility] NITRATE NEGATIVE NEGATIVE [facility] PROTEIN 30 [ 1+] mg/dL NEGATIVE ! [facility] GLUCOSE NORMAL mg/dL NORMAL [facility] KETONE NEGATIVE mg/dL NEGATIVE [facility] UROBILINOGEN NORMAL mg/dL N[facility]AL [facility] BILIRUBIN NEGATIVE mg/dL NEGATIVE [facility] HEMOGLOBIN 3+ NEGATIVE ! [facility] ID Date Data Source [id number] 04/22/2020 12:00:00 AM EST [facility] Name Value Range Interpretation Code Description Data Victoria rce(s) Supporting Document(s) SARS coronavirus 2 RNA [Presence] in Res piratory specimen by WILLIAN with probe detection NEGATIVE [facility] This lab was ordered by Perfecto Jamil and reported by [employer]. ID Date Data Source [id number] 04/10/2020 07:21:13 AM EST [facility] Note Status: FINAL (SIGNED)Full Name: Kade JONES Date: 1985Visit ID: [id number] Record Number: [id number]: 34YSex: FemaleRoom Location: ER ROOMSBed Location: ER [...] PRN pain Allerg iesAllergies reviewedLast Verified By: NANTETE REMY RN on 04/03/2020 13:39Motrin(on blood thinner), [...] ;Once;EDGARDO CROWE;04/03/2020;COMPREHENSIVE PANEL ;Once;EDGARDO CROWE;04/03/2020;LIPASE ;Once;EDGARDO CROWE;04/03/2020;PT/INR ;Once;EDAGRDO CROWE;04/03/2020;PTT ;Once;EDGARDO CROWE;04/03/2020;SODIUM CHLORIDE 0.9% 1,000 ML [...] Tylenol, Tramadol, Cephalexin, PMD f/u [facility]Dis[facility]: Patient Name: Taniya Field Date: 1985 Address: [address] [place] [address] Sex: Female Rx Written Rx Dispensed Drug Quantity Days Supply Prescriber Name Payment Method Dispenser 01/18/2020 01/21/2020 hydrocodone-acetaminophen 5-325 mg tablet 10 2 Omayra Jorge () Insurance [facility] #[id number] 10/15/2019 10/15/2019 tramadol hcl 50 mg tablet 9 3 Marti Fleming Insurance [facility] #[id number] Patient Name: Taniya Field Date: 1985 Address: [address] [place] [address] Sex: Female Rx Written Rx Dispensed Drug Quantity Days Supply Prescriber Name Payment Method Di byron 08/12/2019 08/12/2019 acetaminophen-cod #3 tablet 10 3 Estevan Rich MD Insurance [facility] #[id number] 07/22/2019 07/22/2019 oxycodone-acetaminophen 5-325 mg tab 14 3 Milena Moreno L Insurance [facility] #[id number] 06/21/2019 06/21/2019 oxycodone-acetaminophen 5-325 mg tab 28 7 Herman Jackson) Insurance [facility] #[id number] 03/27/2019 04/04/2019 tramadol hcl 50 mg tablet 3 1 Edgardo Crowe Insurance [facility] #[id number] 04/01/2019 04/04/2019 oxycodone-acetaminophen 5-325 mg tab 12 3 Pamela Potter A Insurance [facility] #[id number] did not require critical care timeMidlevel signature: EDGARDO CROWE [facility] signature date: 04/08/2020 22:34Attending Physician Attestation: I have reviewed the midlevel documentation, agree with the documentation, medical decision making and treatment plan as outlined by the midlevelPhysician signature: Asim MITCHELL signature date: 04/10/2020 07:20 Name Value Range Interpretation Code Description Data Victoria rce(s) Supporting Document(s) ID Date Data Source [id number] 04/03/2020 05:09:00 PM EST [facility] AMYL[facility] Name Value Range Interpretation Code Description Data Victoria rce(s) Supporting Document(s) AMYLASE 45 U/L 25-[address] [facility] ID Date Data Source [id number] 04/03/2020 05:09:00 PM EST [facility] LIPASE Name Value Range Interpretation Code Description Data Victoria rce(s) Supporting Document(s) LIPASE 18 U/L 8-[address] [facility] ID Date Data Source [id number] 04/03/2020 05:09:00 PM EST [facility] CMP Name Value Range Interpretation Code Description Data Victoria rce(s) Supporting Document(s) SODIUM 141 mmol/L 136-[address] [facility] POTASSIUM 3.6 mmol/L 3.5-5.[address] [facility] CHLORIDE 108 mmol/L 100-[address] [facility] CO2 23 mmol/L 21-[address] [facility] GLUCOSE 85 mg/dL 70-[address] [facility] BUN 12 mg/dL 7-[address] [facility] CREATININE 0.8 mg/dL 0.6-1.[address] [facility] Normal Kidney Function or Mild Disease - GFR >OR= 60Chronic Kidney Disease - GFR 15-59Renal Failure - GFR < 15GFR not calculated on patients under 18 years of age. CALCIUM 8.9 mg/dL 8.5-10.[address] [facility] GFR >[address] [facility] T BILI 0.3 mg/dL 0.0-1.[address] [facility] T PROTEIN 7.4 gm/dL 6.4-8.[address] [facility] ALBUMIN 4.4 gm/dL 3.4-4.[address] [facility] ALK PHOS 124 U/L 40-[address] [facility] ALT (SGPT) 44 U/L 0-[address] [facility] AST (SGOT) 40 U/L 5-[address] [facility] ID Date Data Source [id number] 04/03/2020 05:06:00 PM EST [facility] Name Value Range Interpretation Code Description Data Victoria rce(s) Supporting Document(s) PTT 30.8 sec 25.6-36.[address] [facility] ID Date Data Source [id number] 04/03/2020 05:03:00 PM EST [facility] Name Value Range Interpretation Code Description Data Victoria rce(s) Supporting Document(s) PROTIME 11.9 sec 9.4-12.[address] [facility] INR 1.[address] [facility] INR INTERPERTATION 2.0 -3.0 THERAPEUTIC MONITORING2.5-3.5 HEART VALVE REPLACEMENT ID Date Data Source [id number] 04/03/2020 04:53:00 PM EST [facility] CBC WITH DIFF Name Value Range Interpretation Code Description Data Victoria rce(s) Supporting Document(s) WBC 8.2 K/uL 4.8-10.[address] [facility] RBC 4.09 M/uL 4.20-5.[address] [facility] HEMOGLOBIN 12.0 gm/dL 12.0-16.[address] [facility] HEMATOCRIT 35.5 % 36.0-48.[address] [facility] MCV 86.6 fL 80.0-100.[address] [facility] MCHC 33.7 % 30.0-36.[address] [facility] MCH 29.2 pg 27.0-34.[address] [facility] RDW 14.1 % 11.0-15.[address] [facility] PLATELET 326 K/uL 130-[address] [facility] MPV 6.5 fL 6.0-12.[address] [facility] NE% 65 % 37-[address] [facility] LY% 28 % 10-[address] [facility] MO% 6 % 0-[address] [facility] Eosinophils [#/volume] in Blood by Automated count 1 % <=[address] [facility] BA% 1 % <=[address] [facility] NE# 5.3 K/uL 1.8-8.[address] [facility] LYMPH# 2.3 K/uL 0.5-5.[address] [facility] MONO# 0.5 K/uL 0.0-1.[address] [facility] EOS# 0.1 K/uL 0.0-0.[address] [facility] BASO# 0.1 K/ul 0.0-0.[address] [facility] ID Date Data Source [id number] 03/29/2020 05:56:[address] [address] HEALTH INFORMATION MANAGEMENT ED/UC Physician Report : [id number] Signed Patient: Taniya Field Acct:[id number] Unit: M [id number] : 1985 Arrival Date: 03/29/20 Age/Sex: 34 [...] Affect Skin Skin exam: Dry, Intact and [place] Course Vital Signs Vital signs: Vital Signs [...] % Lymph % (Auto) 25.3 (20.0-51.0) % [place] % (Auto) 5.3 (2.0-15.0) % Eos % (Auto) 0.9 (0.0-11.0) % Baso % (Auto) 0.2 (0.0-2.0) % Nucleat RBC Rel Count Not Reportable Gran # 6.16 (1.50-6.50) 10 3/uL Lymph # (Auto) 2.3 (1.0-5.0) k/uL [place] # (Auto) 0.48 (0.20-1.50) k/uL Eos # [...] Patient Name: Taniya Field EExam Date:03/29/20Date of :1985Age:34Gender:FemaleMRN:[id number] Location:[facility]#:[id number] _[facility] [place], [place] [address], [place] [address], [place] [address]AeaacjsBaptist Health [facility] [address] [place] [address] [place], [place] [phone] you for your referral. Please call us at [facility] [phone] or [facility] [phone] for any future scheduling needs.RPT:[id number]IMPRESSION: Kidneys unremarkable. No stones identified. No hydronephrosis.Partially [...] File>> Initializing User: Blanca Adkins NP 03/29/20 6193 Signed by: Blanca Adkins NP 03/29/20 1912 Elton Dobbs MD 03/30/20 0800 Name Value Range Interpretation Code Description Data Victoria rce(s) Supporting Document(s) ID Date Data Source [id number] 03/29/2020 05:45:00 PM EST MEDENT (Marlon ssionate [facility] Medicine) Name Value Range Interpretation Code Description [...] Creatinine-based formula (MDRD) 81.2 mL/min MEDENT (Compassionate [facility]) Stage G2 - Mildly decreased kidney funct [...] ([facility]) ID Date Data Source [id number] 03/29/2020 05:45:00 PM EST MED[facility] (Marlon ssionate [...] Automated count 32.7 g/dL 32-36 [facility] (Compassionate [facility] juany Medicine) Erythrocyte mean corpuscular hemoglobin [...] ([facility]) ID Date Data Source [id number] 03/29/2020 05:51:00 PM [facility] Name Value Range Interpretation Code Description Data Victoria rce(s) Supporting Document(s) WHITE BLOOD COUNT 9.09 10^3/uL 4.00-10.50 N [facility] ealt RED BLOOD COUNT 4.46 10^6/uL 3.90-5.20 N [facility] th HEMOGLOBIN 12.5 G/DL 11.5-15.6 N [facility] HEMATOCRIT 38.2 % 35.0-46.0 N [facility] MCV 85.7 FL 80.0-100.0 N [facility] MCH 28.0 PG 27.0-34.0 N [facility] MCHC 32.7 G/DL 32-36 N [facility] RDW 14.2 % 11.5-14.5 N [facility] PLATELET COUNT 328 10^3/uL 130-400 N [facility] MPV 8.9 FL 8.7-13.2 N [facility] GRAN % (AUTO) 67.7 % 42.0-75.0 [facility] LYMPH % (AUTO) 25.3 % 20.0-51.0 N [facility] MONO % (AUTO) 5.3 % 2.0-15.0 [facility] EOS % (AUTO) 0.9 % 0.0-11.0 [facility] BASO % (AUTO) 0.2 % 0.0-2.0 [facility] IG % (AUTO) 0.6 % 1.00-5.00 [facility] IG # (AUTO) 0.1 10^3/uL <0.5 [facility] GRAN # (AUTO) 6.16 10^3/uL 1.50-6.50 [facility] LYMPH # (AUTO) 2.3 k/uL 1.0-5.0 [facility] MONO # (AUTO) 0.48 k/uL 0.20-1.50 [facility] EOS # (AUTO) 0.08 10^3/uL 0.00-1.10 [facility] BASO # (AUTO) 0.02 10^3/uL 0.00-0.20 N [facility] ID Date Data Source [id number] 03/29/2020 06:03:00 PM EST [facility] Name Value Range Interpretation Code Description Data Victoria rce(s) Supporting Document(s) SODIUM 138 MEQ/L 135-145 N [facility] POTASSIUM 3.6 MEQ/L 3.5-5.3 [facility] CHLORIDE 105 MEQ/L 94-110 [facility] CARBON DIOXIDE 27 MEQ/L 22-33 [facility] ANION GAP 10 5-16 [facility] BLOOD UREA NITRO 15 MG/DL 7-25 [facility] CREATININE 0.8 MG/DL 0.6-1.4 [facility] GFR 81.2 ML/MIN [facility] Stage G2 - Mildly decreased kidney func tion The GFR is an estimate of the Glomerular Filtration Rate. It is an aid to assess a patient's renal function. It is not a conclusive diagnosis of kidney disease. GFR normal is >=90 The MDRD GFR calculation is considered valid between the ages of 18 and 75 years only. BUN/CREAT RATIO 18 8-36 [facility] GLUCOSE 90 MG/DL 70-100 N [facility] CA 9.2 MG/DL 8.7-10.5 N [facility] ID Date Data Source [id number] 03/29/2020 05:27:00 PM EST [facility] (Marlon ssionate [...] ([facility]ionate [facility]) ID Date Data Source [id number] 03/29/2020 06:37:00 PM EST [facility] Name Value Range Interpretation Code Description Data Victoria rce(s) Supporting Document(s) COLOR,UR RED YELLOW A [facility] APPEARANCE,UR CLOUDY CLEAR A [facility] PH,UR 6.0 5.0-8.0 [facility] SPECIFIC GRAVITY,UR 1.016 1.002-1.035 [facility] PROTEIN,UR 100 MG/DL NEGATIVE A [facility] GLUCOSE, UR NEGATIVE MG/DL NEGATIVE [facility] KETONES,UR NEGATIVE MG/DL NEGATIVE [facility] OCCULT BLOOD,UR LARGE NEGATIVE A [facility] NITRATE,UR NEGATIVE NEGATIVE [facility] LEUKOCYTE ESTERASE ,UR TRACE NEGATIVE A [facility] BILIRUBIN,UR NEGATIVE NEGATIVE [facility] UROBILINOGEN,UR 0.2-1.0 EU MG/DL NEG-0-1.0 [facility] RBC,UR >100 PER HPF 0-2 A [facility] URINE EPITH MANY PER/LPF FEW-MOD [facility] BACTERIA,UR RARE PER HPF NONE [facility] MUCUS,UR RARE PER HPF NONE SEEN [facility] ID Date Data Source [id number] 03/22/2020 07:45:05 AM [facility] Note Status: FINAL (SIGNED)Full Name: Kade JONES Date: 1985Visit ID: [id number] Record Number: [id number]: 34YSex: FemaleRoom Location: ER ROOMSBed Location: ER ORTHODate of Service: 03/22/2020 07:12Creation Date: 03/22/2020 07:12Created By: [facility] Physician: FORTUNATO CONTRERASTime patient first seen: [...] rce(s) Supporting Document(s) ID Date Data Source [id number] 03/22/2020 07:12:09 AM [facility] Note Status: FINAL (SIGNED)Full Name: Kade JONES Date: 1985Visit ID: [id number] Record Number: [id number]: 34YSex: FemaleRoom Location: ER ROOMSBed Location: ER 16Date of Service: 03/06/2020 08:33Creation Date: 03/06/2020 08:33Created By: [facility]ORTYDo[facility] Physician: FORTUNATO CONTRERASTime patient first seen: 824 [...] impression: , renal calculus, UTI, polynephritisOrdersStart Date;Description;Frequency;Ordered By;Hszhym3603/06/2020;CT-ABD PELVIS NO CONTRAST (DRY) ;Once;OMAYRA JORGE;Iebtyvulrkke44/22/2020;BASIC METABOLIC PANEL ;Once;OMAYRA JORGE;Today03/06/2020;CBC DIFF ;Once;OMAYRA JORGE;Today03/06/2020;LIPASE ;Once;OMAYRA JORGE;Today03/06/2020; TEST - SERUM ;Once;OMAYRA JORGE;Today03/06/2020;CULTURE URINE ;O nce;OMAYRA JORGE;Today03/06/2020;URINALYSIS ROUTINE ;Once;OMAYRA JORGE;Today03/06/2020;URINE MICROSCOPIC ;Once;OMAYRA JORGE;Today03/06/2020;SODIUM CHLORIDE 0.9% 1,000 ML IV ;ED - ONE TIME ONLY;OMAYRA JORGE;Zigrshkr09/22/2020;SODIUM CHLORIDE 0.9% 500 ML IV ;ED - ONE TIME ONLY;OMAYRA JORGE;Woeklbyo38/22/2020;RENAL/BLADDER U/S LIMITED ;Once;OMAYRA JORGE;Today03/06/2020;PT/INR ;Once;OMAYRA JORGE;Today03/06/2020;PTT ;Once;OMAYRA JORGE;Today03/06/2020;MORPHINE 4 MG/1 ML IVP ;ED - ONE TIME ONLY;OMAYRA JORGE;InactiveLaboratory resultsLab Results for the past 24 hoursOrder;Test;Value;Reference Range;Comments;Status;CollectionURINALYSIS ROUTINE;Dipstick Urine Color;LUIS M;;;Final Result ; 08:40:04URINALYSIS ROUTINE;Dipstick Urine Turbidity;TURBID;;;Final Result ;03/06/2020 08:40:04URINALYSIS ROUTINE;Dipstick Specific [place];1.020;(1.000-1.030);;Final Result ;03/06/2020 08:40:04URINALYSIS ROUTINE;Dipstick Urine pH;5.0;(5.0- 8.0);;Final [...] No hydronephrosis or nephrolithiasis. END OF IMPRESSION [facility] submits Radiology results to [facility] and [facility] then provides those same results to [facility]. All results are available to [facility] and [facility] provider portal users. [facility] DICOM images are available to the [facility] provider portal users only. [facility] DICOM images are not available to the [facility] provider portal users. There is no current [facility] cross-[facility] functionality allowing images to be available through the [facility] to [facility] connectivity. Electronically signed By: Rosaura Stephens [...] rce(s) Supporting Document(s) ID Date Data Source [id number] 03/18/2020 04:12:04 PM EST [facility] Note Status: FINAL (SIGNED)Full Name: Kade JONES Date: 1985Visit ID: [id number] Record Number: [id number]: 34YSex: FemaleRoom Location: ER ROOMSBed Location: ER [...] off normal truncal ROM WNL OrdersStart Date;Description;Frequency;Ordered By;Mpjkob1903/03/2020;CT- ABD PELVIS NO CONTRAST (DRY) ;Once;EDGARDO CROWE;Today03/03/2020;STRAIN URINE, SAVE STONE ;Once;EDGARDO CROWE;03/03/2020;CBC DIFF ;Once;EDGARDO CROWE;03/03/2020;COMPREHENSIVE PANEL ;Once;EDGARDO CROWE;03/03/2020;HYDROCODONE-ACETAMINOPHEN 5-325MG 1 TAB ORAL ;ED - ONE TIME ONLY;EDGARDO CROWE;Gjkbxpaa53/19/2020;Point of Care /URINE ;Once;EDGARDO CROWE;03/03/2020;Point of Care [...] Urine Turbidity;HAZY;;;Final Result ;03/03/2020 19:40:00URINALYSIS ROUTINE;Dipstick Specific [place];1.025;(1.000-1.030);;Final Result ;03/03/2020 19:40:00URINALYSIS ROUTINE;Dipstick Urine pH;6.0;(5.0-8.0);;Final Result [...] and agree with or edited the findings. [facility] submits Radiology results to [facility] and [facility] then provides those same results to [facility]. All results are available to [facility] and [facility] provider portal users. [facility] DICOM images are available to the [facility] provider portal users only. [facility] DICOM images are not available to the [facility] provider portal users. There is no current [facility] cross-[facility] functionality allowing images to be available through the [facility] to [facility] connectivity. Interpreted By: Shalonda Jade M.D. [...] Tylenol, PMD f/u this coming week [facility] Patient Name: Taniya Field Date: 1985 Address: [address] [place] [address] Sex: Female Rx Written Rx Dispensed Drug Quantity Days Supply Prescriber Name Payment Method Dispenser 01/18/2020 01/21/2020 hydrocodone-acetaminophen 5-325 mg tablet 10 2 Omayra Jorge (DO) Insurance [facility] #[id number] 10/15/2019 10/15/2019 tramadol hcl 50 mg tablet 9 3 Marti Fleming Insurance [facility] #[id number] Patient Name: Taniya Field Date: 1985 Address: [address] [place] [address] Sex: Female Rx Written Rx Dispensed Drug Quantity Days Supply Prescriber Name Payment Method Dispenser 08/12/2019 08/12/2019 acetaminophen-cod #3 tablet 10 3 Estevan Rich MD Insurance [facility] #[id number] 07/22/2019 07/22/2019 oxycodone-acetaminophen 5-325 mg tab 14 3 Milena Moreno L Insurance [facility] #[id number] 06/21/2019 06/21/2019 oxycodone-acetaminophen 5-325 mg tab 28 7 Herman Jackson) Insurance [facility] #[id number] 03/27/2019 04/04/2019 tramadol hcl 50 mg tablet 3 1 Edgardo Crowe Insurance [facility] #[id number] 04/01/2019 04/04/2019 oxycodone- acetaminophen 5-325 mg tab 12 3 Pamela Potter A Insurance [facility] #[id number] did not require critical care timeMidlevel signature: EDGARDO CROWE [facility] signature date: 03/08/2020 23:11Attending Physician Attestation: I have reviewed the midlevel documentation, agree with the documentation, medical decision making and treatment plan as outlined by the midlevelPhysician signature: NANI MOSQUERA [facility] signature date: 03/18/2020 16:10 Name Value Range Interpretation Code Description Data Victoria rce(s) Supporting Document(s) ID Date Data Source [id number] 03/08/2020 08:35:00 AM EST [facility] CULTURE OBSERVATIONS 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 [facility] RBC >100 /HPF NONE SEEN ! [facility] [employer] has definedMicroscopic Hematuria as 3 or more RBC per highpowered field from a single positive urinalysis withmicroscopy. BACTERIA MANY /HPF NONE SEEN ! [facility] EPITHELIAL CELLS MODERATE /HPF NONE SEEN ! [facility] spital AMORPHOUS SEDIMENT 1+ /HPF NONE SEEN ! [facility] ID Date Data Source [id number] 03/06/2020 08:47:00 AM EST [facility] Name Value Range Interpretation Code Description Data Victoria rce(s) Supporting Document(s) COLOR LUIS M [facility] APPEARANCE TURBID CLEAR ! [facility] SPECIFIC GRAVITY 1.020 1.000-1.030 [facility] pH 5.0 5.0-8.[address] [facility] LEUKOCYTES 2+ NEGATIVE ! [facility] NITRATE POSITIVE NEGATIVE ! [facility] PROTEIN 100 [ 2+] mg/dL NEGATIVE ! [facility] l GLUCOSE NORMAL mg/dL NORMAL [facility] KETONE NEGATIVE mg/dL NEGATIVE [facility] UROBILINOGEN NORMAL mg/dL NORMAL [facility] l BILIRUBIN NEGATIVE mg/dL NEGATIVE [facility] HEMOGLOBIN 3+ NEGATIVE ! [facility] ID Date Data Source [id number] 03/06/2020 10:03:57 AM EST [facility] 03/06/2020 9:50 AMRENAL ULTRASOUNDCLINIC AL INFORMATION: [...] 5 mLMiscellaneous: None.IMPRESSION:No hydronephrosis or nephrolithiasis.END OF IMPRESSIONSt. [facility] then [facility] those same results to [facility]. Allresults are available to [facility] and [facility] provider portalusers. [facility] DICOM images are available to [facility] provider portal users only. [facility] DICOMimages are not available to the [facility] provider portal users. There isno current [facility] cross-[facility] functionality allowing images to be available [facility] to [facility] connectivity.Electronically signed By: Rosaura Stephens M.D.Read By: ROSAURA STEPHENSDate: 03/06/2020 10:00 Name Value Range Interpretation Code Description Data Victoria rce(s) Supporting Document(s) ID Date Data Source [id number] 03/06/2020 08:55:00 AM EST [facility] Name Value Range Interpretation Code Description Data Victoria rce(s) Supporting Document(s) SERUM TEST NEGATIVE [facility] spital PREGS METHODOLOGY [facility] ID Date Data Source [id number] 03/06/2020 08:53:00 AM EST [facility] Name Value Range Interpretation Code Description Data Victoria rce(s) Supporting Document(s) LIPASE 24 U/L 8-[address] [facility] ID Date Data Source [id number] 03/06/2020 08:53:00 AM EST [facility] Name Value Range Interpretation Code Description Data Victoria rce(s) Supporting Document(s) SODIUM 139 mmol/L 136-[address] [facility] POTASSIUM 3.9 mmol/L 3.5-5.[address] [facility] CHLORIDE 106 mmol/L 100-[address] [facility] CO2 25 mmol/L 21-[address] [facility] GLUCOSE 107 mg/dL 70-[address] [facility] BUN 14 mg/dL 7-[address] [facility] CREATININE 0.8 mg/dL 0.6-1.[address] [facility] Normal Kidney Function or Mild Disease - GFR >OR= 60Chronic Kidney Disease - GFR 15-59Renal Failure - GFR < 15GFR not calculated on patients under 18 years of age. CALCIUM 8.9 mg/dL 8.5-10.[address] [facility] GFR >[address] [facility] ID Date Data Source [id number] 03/06/2020 08:43:00 AM EST [facility] Name Value Range Interpretation Code Description Data Victoria rce(s) Supporting Document(s) WBC 7.7 K/uL 4.8-10.[address] [facility] RBC 4.48 M/uL 4.20-5.[address] [facility] HEMOGLOBIN 12.6 gm/dL 12.0-16.[address] [facility] HEMATOCRIT 38.4 % 36.0-48.[address] [facility] MCV 85.9 fL 80.0-100.[address] [facility] MCHC 32.9 % 30.0-36.[address] [facility] MCH 28.2 pg 27.0-34.[address] [facility] RDW 13.7 % 11.0-15.[address] [facility] PLATELET 277 K/uL 130-[address] [facility] MPV 6.5 fL 6.0-12.[address] [facility] NE% 63 % 37-[address] [facility] LY% 27 % 10-[address] [facility] MO% 7 % 0-[address] [facility] Eosinophils [#/volume] in Blood by Automated count 2 % <=[address] [facility] BA% 0 % <=[address] [facility] NE# 4.9 K/uL 1.8-8.[address] [facility] LYMPH# 2.1 K/uL 0.5-5.[address] [facility] MONO# 0.6 K/uL 0.0-1.[address] [facility] EOS# 0.1 K/uL 0.0-0.[address] [facility] BASO# 0.0 K/ul 0.0-0.[address] [facility] ID Date Data Source [id number] 03/03/2020 08:27:00 PM EST [facility] [facility] Name Value Range Interpretation Code Description Data Victoria rce(s) Supporting Document(s) SODIUM 138 mmol/L 136-[address] [facility] POTASSIUM 3.8 mmol/L 3.5-5.[address] [facility] CHLORIDE 107 mmol/L 100-[address] [facility] CO2 22 mmol/L 21-[address] [facility] GLUCOSE 93 mg/dL 70-[address] [facility] BUN 15 mg/dL 7-[address] [facility] CREATININE 0.7 mg/dL 0.6-1.[address] [facility] Normal Kidney Function or Mild Disease - GFR >OR= 60Chronic Kidney Disease - GFR 15-59Renal Failure - GFR < 15GFR not calculated on patients under 18 years of age. CALCIUM 9.7 mg/dL 8.5-10.[address] [facility] GFR >[address] [facility] T BILI 0.2 mg/dL 0.0-1.[address] [facility] T PROTEIN 7.3 gm/dL 6.4-8.[address] [facility] ALBUMIN 4.0 gm/dL 3.4-4.[address] [facility] ALK PHOS 119 U/L 40-[address] [facility] ALT (SGPT) 50 U/L 0-[address] [facility] AST (SGOT) 44 U/L 5-[address] [facility] ID Date Data Source [id number] 03/03/2020 08:13:00 PM EST [facility] CBC W/DIFF STAT Name Value Range Interpretation Code Description Data Victoria rce(s) Supporting Document(s) WBC 7.9 K/uL 4.8-10.[address] [facility] RBC 4.19 M/uL 4.20-5.[address] [facility] HEMOGLOBIN 12.6 gm/dL 12.0-16.[address] [facility] HEMATOCRIT 36.5 % 36.0-48.[address] [facility] MCV 87.1 fL 80.0-100.[address] [facility] MCHC 34.5 % 30.0-36.[address] [facility] MCH 30.0 pg 27.0-34.[address] [facility] RDW 14.2 % 11.0-15.[address] [facility] PLATELET 282 K/uL 130-[address] [facility] MPV 6.3 fL 6.0-12.[address] [facility] NE% 63 % 37-[address] [facility] LY% 27 % 10-[address] [facility] MO% 8 % 0-[address] [facility] Eosinophils [#/volume] in Blood by Automated count 2 % <=[address] [facility] BA% 0 % <=[address] [facility] NE# 5.0 K/uL 1.8-8.[address] [facility] LYMPH# 2.2 K/uL 0.5-5.[address] [facility] MONO# 0.6 K/uL 0.0-1.[address] [facility] EOS# 0.1 K/uL 0.0-0.[address] [facility] BASO# 0.0 K/ul 0.0-0.[address] [facility] ID Date Data Source [id number] 03/06/2020 07:32:00 AM EST [facility] CULTURE OBSERVATIONS Mixed growth consi stent with skin radha present Name Value Range Interpretation Code Description Data Victoria rce(s) Supporting Document(s) ID Date Data Source [id number] 03/03/2020 08:25:00 PM EST [facility] Name Value Range Interpretation Code Description Data Victoria rce(s) Supporting Document(s) URINE MICRO [facility] WBC 10-25 /HPF 0-2 ! [facility] RBC >100 /HPF NONE SEEN ! [facility] [employer] has definedMicroscopic Hematuria as 3 or more RBC per highpowered field from a single positive urinalysis withmicroscopy. BACTERIA FEW /HPF NONE SEEN ! [facility] EPITHELIAL CELLS FEW /HPF NONE SEEN ! [facility] al ID Date Data Source [id number] 03/03/2020 08:14:00 PM EST [facility] al Name Value Range Interpretation Code Description Data Victoria rce(s) Supporting Document(s) COLOR LUIS M [facility] APPEARANCE HAZY CLEAR ! [facility] SPECIFIC GRAVITY 1.025 1.000-1.030 [facility] pH 6.0 5.0-8.[address] [facility] LEUKOCYTES 2+ NEGATIVE ! [facility] NITRATE NEGATIVE NEGATIVE [facility] PROTEIN 100 [ 2+] mg/dL NEGATIVE ! [facility] GLUCOSE NORMAL mg/dL NORMAL [facility] KETONE TRACE mg/dL NEGATIVE ! [facility] UROBILINOGEN 1 mg/dL NORMAL ! [facility] BILIRUBIN NEGATIVE mg/dL NEGATIVE [facility] HEMOGLOBIN 3+ NEGATIVE ! [facility] ID Date Data Source [id number] 03/03/2020 08:34:58 PM EST [facility] al CT - ABD PELVIS NO [id number]/19/2020 8: 10 PMCT ABDOMEN AND PELVIS WITHOUT [...] Resident's/Fellow'sinterpretation and agree with or edited the findings.[facility] then provides those same results to [facility]. Allresults are available to [facility] and [facility] provider portalusers. [facility] DICOM images are available to [facility] provider portal users only. [facility] DICOMimages are not available to the [facility] provider portal users. There isno current [facility] cross-[facility] functionality allowing images to be available throughthe [facility] to [facility] connectivity.Interpreted By: Shalonda Jade M.D.Electronically signed By: Mendy Castellon M.D.Read By: MENDY CASTELLONDate: 03/03/2020 20:31 Name Value Range Interpretation Code Description Data Victoria rce(s) Supporting Document(s) ID Date Data Source [id number] 02/20/2020 04:13:00 [place] [address] HEALTH INFORMATION MANAGEMENT ED/UC Physician Report : [id number] Signed Patient: Taniya Field Acct:[id number] Unit: Gaetano [id number] : 1985 Arrival Date: 02/20/20 Age/Sex: 34 [...] % Lymph % (Auto) 25.2 (20.0-51.0) % [place] % (Auto) 6.0 (2.0- 15.0) % Eos % (Auto) 1.5 (0.0-11.0) % Baso % (Auto) 0.4 (0.0- 2.0) % Nucleat RBC Rel Count Not Reportable Gran # 5.17 (1.50- 6.50) 10 3/uL Lymph # (Auto) 2.0 (1.0-5.0) k/uL [place] # (Auto) 0.47 (0.20-1.50) k/uL Eos # [...] Urine Appearance (CLEAR) Urine pH (5.0-8.0) Specific [place] (Man) (1.002-1.035) Urine Protein (NEGATIVE) MG/DL Urine [...] % Lymph % (Auto) (20.0- 51.0) % [place] % (Auto) (2.0-15.0) % Eos % (Auto) (0.0-11.0) % Baso % (Auto) (0.0-2.0) % Nucleat RBC Rel Count Gran # (1.50- 6.50) 10 3/uL Lymph # (Auto) (1.0-5.0) k/uL [place] # (Auto) (0.20- 1.50) k/uL Eos # [...] H (CLEAR) Urine pH 6.0 (5.0-8.0) Specific [place] (Man) 1.028 (1.002-1.035) Urine Protein 100 H [...] overlying the renal shadows.Professional interpretation performed by [facility] Medical Imaging at [facility] .End of diagnostic report: [id number]: Boyd Armstrong MD02/20/20 1546 Critical Care Time [...] rce(s) Supporting Document(s) ID Date Data Source [id number] 02/20/2020 04:06:00 PM EST [facility] Name Value Range Interpretation Code Description Data Victoria rce(s) Supporting Document(s) COLOR,UR GREEN YELLOW A [facility] APPEARANCE,UR TURBID CLEAR A [facility] PH,UR 6.0 5.0-8.0 [facility] SPECIFIC GRAVITY,UR 1.028 1.002-1.035 [facility] PROTEIN,UR 100 MG/DL NEGATIVE A [facility] GLUCOSE, UR NEGATIVE MG/DL NEGATIVE [facility] KETONES,UR NEGATIVE MG/DL NEGATIVE [facility] OCCULT BLOOD,UR LARGE NEGATIVE A [facility] NITRATE,UR NEGATIVE NEGATIVE [facility] LEUKOCYTE ESTERASE ,UR TRACE NEGATIVE A [facility] BILIRUBIN,UR NEGATIVE NEGATIVE [facility] UROBILINOGEN,UR 0.2-1.0 EU MG/DL NEG-0-1.0 [facility] RBC,UR >100 PER HPF 0-2 A [facility] WBC,UR <5 PER HPF <5 [facility] URINE EPITH MANY PER/LPF FEW-MOD [facility] BACTERIA,UR RARE PER HPF NONE [facility] MUCUS,UR RARE PER HPF NONE SEEN [facility] ID Date Data Source [id number] 02/20/2020 03:00:00 PM EST [facility] Name Value Range Interpretation Code Description Data Victoria rce(s) Supporting Document(s) WHITE BLOOD COUNT 7.78 10^3/uL 4.00-10.50 N [facility] ealth RED BLOOD COUNT 4.44 10^6/uL 3.90-5.20 N [facility] th HEMOGLOBIN 12.5 G/DL 11.5-15.6 N [facility] HEMATOCRIT 38.0 % 35.0-46.0 N [facility] MCV 85.6 FL 80.0-100.0 N [facility] MCH 28.2 PG 27.0-34.0 N [facility] MCHC 32.9 G/DL 32-36 N [facility] RDW 14.0 % 11.5-14.5 N [facility] PLATELET COUNT 355 10^3/uL 130-400 N [facility] MPV 9.0 FL 8.7-13.2 N [facility] GRAN % (AUTO) 66.5 % 42.0-75.0 N [facility] LYMPH % (AUTO) 25.2 % 20.0-51.0 N [facility] MONO % (AUTO) 6.0 % 2.0-15.0 N [facility] EOS % (AUTO) 1.5 % 0.0-11.0 N [facility] BASO % (AUTO) 0.4 % 0.0-2.0 N [facility] IG % (AUTO) 0.4 % 1.00-5.00 [facility] IG # (AUTO) 0.0 10^3/uL <0.5 [facility] GRAN # (AUTO) 5.17 10^3/uL 1.50-6.50 N [facility] LYMPH # (AUTO) 2.0 k/uL 1.0-5.0 N [facility] MONO # (AUTO) 0.47 k/uL 0.20-1.50 N [facility] EOS # (AUTO) 0.12 10^3/uL 0.00-1.10 N [facility] BASO # (AUTO) 0.03 10^3/uL 0.00-0.20 N [facility] ID Date Data Source [id number] 02/20/2020 03:25:00 PM EST [facility] Name Value Range Interpretation Code Description Data Victoria rce(s) Supporting Document(s) HCG QUALITATIVE SPECIMEN [facility] ID Date Data Source [id number] 02/20/2020 03:30:00 PM EST [facility] Name Value Range Interpretation Code Description Data Victoria rce(s) Supporting Document(s) SODIUM 138 MEQ/L 135-145 N [facility] POTASSIUM 4.4 MEQ/L 3.5-5.3 N [facility] CHLORIDE 105 MEQ/L 94-110 N [facility] CARBON DIOXIDE 27 MEQ/L 22-33 N [facility] ANION GAP 10 5-16 N [facility] BLOOD UREA NITRO 16 MG/DL 7-25 N [facility] CREATININE 0.8 MG/DL 0.6-1.4 N [facility] GFR 81.2 ML/MIN [facility] Stage G2 - Mildly decreased kidney func tion The GFR is an estimate of the Glomerular Filtration Rate. It is an aid to assess a patient's renal function. It is not a conclusive diagnosis of kidney disease. GFR normal is >=90 The MDRD GFR calculation is considered valid between the ages of 18 and 75 years only. BUN/CREAT RATIO 20 8-36 N [facility] GLUCOSE 93 MG/DL 70-100 N [facility] CA 9.2 MG/DL 8.7-10.5 N [facility] BILIRUBIN,TOTAL 0.4 MG/DL 0.1-1.3 N [facility] AST 69 U/L 5-40 H [facility] ALT 66 U/L 5-48 H [facility] ALKALINE PHOSPHATASE 133 U/L 40-140 N [facility]th TOTAL PROTEIN 7.0 G/DL 5.9-8.3 N [facility] ALBUMIN 4.9 G/DL 3.0-5.1 N [facility] GLOBULIN 2.1 G/DL 1.5-3.5 [facility] ALB/GLOB RATIO 2.3 G/DL 1.0-3.0 N [facility] ID Date Data Source [id number] 02/20/2020 03:25:00 PM [facility] Name Value Range Interpretation Code Description Data Victoria rce(s) Supporting Document(s) HCG RESULT,S NEGATIVE [facility] Reference range is Negative "Extreme" early may have low levels of HCG present. If is suspected, repeat testing with a new specimen in 48-72 hours ID Date Data Source [id number] 02/14/2020 06:10:[address] [address] HEALTH INFORMATION MANAGEMENT ED/UC Physician Report : [id number] Signed Patient: Taniya Field Acct:[id number] Unit: [id number] : 1985 Arrival Date: 02/14/20 Age/Sex: 34 [...] Normal Affect Skin Skin exam: Dry, Intact, [place] and Warm Course Vital Signs Vital signs: [...] <<Signature on File>> Initializing User: Elvira Max [facility] 02/14/20 1810 Signed by: Elvira Max [facility] 02/14/20 2222 Estevan Rich MD 02/17/20 0836 Name Value Range Interpretation Code Description Data Victoria rce(s) Supporting Document(s) ID Date Data Source [id number] 02/14/2020 06:19:00 PM [facility] Run: 02/16/20 0756 INTERFACED REPORT Name: Taniya Field Age/Sex: 34/F Location: ED Acct: [id number] Unit: [id number] Status: DEP ER Room/Bed: Re02/14/20 Disch: Att Dr: Estevan Rich MD Specimen #: [id number] Ordered : 02/14/2004/04/1818 Collected : 02/14/2004/04/1799 By: [...] Victoria rce(s) Supporting Document(s) COLOR,UR YELLOW YELLOW [facility] APPEARANCE,UR SL CLOUDY CLEAR [facility] PH,UR 5.0 5.0-8.0 [facility] SPECIFIC GRAVITY,UR 1.021 1.002-1.035 [facility] PROTEIN,UR NEGATIVE MG/DL NEGATIVE [facility] GLUCOSE, UR NEGATIVE MG/DL NEGATIVE [facility] KETONES,UR NEGATIVE MG/DL NEGATIVE [facility] OCCULT BLOOD,UR MODERATE NEGATIVE A [facility] NITRATE,UR NEGATIVE NEGATIVE [facility] LEUKOCYTE ESTERASE ,UR TRACE NEGATIVE A [facility] BILIRUBIN,UR NEGATIVE NEGATIVE [facility] UROBILINOGEN,UR 0.2-1.0 EU MG/DL NEG-0-1.0 [facility] RBC,UR 10-24 PER HPF 0-2 A [facility] WBC,UR 5-9 PER HPF <5 A [facility] URINE EPITH MANY PER/LPF FEW-MOD [facility] MUCUS,UR RARE PER HPF NONE SEEN [facility] ID Date Data Source [id number] 02/16/2020 07:56:00 AM EST [facility] Run: 02/16/20 0756 INTERFACED REPORT Name: Taniya Field Age/Sex: 34/F Location: ED Acct: [id number] Unit: [id number] Status: DEP ER Room/Bed: Re02/14/20 Disch: Att Dr: Estevan Rich MD Specimen #: [id number] Ordered : 02/14/2004/04/1818 Collected : 02/14/2004/04/1799 By: [...] rce(s) Supporting Document(s) ID Date Data Source [id number] 02/02/2020 02:24:09 PM EST [facility] Note Status: FINAL (SIGNED)Full Name: Kade JONES Date: 1985Visit ID: [id number] Record Number: [id number]: 34YSex: FemaleRoom Location: ER ROOMSBed Location: ER GYNDate of Service: 01/28/2020 09:21Creation Date: 01/28/2020 09:21Created [facility] Physician: NONE, NONETime patient first seen: [phone] Chief Complaint: Patient is a 34-year-old [...] impression: Left flank pain Check labsOrdersStart Date;Description;Frequency;Ordered By;[id number]/28/2020;CULTURE URINE ;Once;ELDER, SIERRA;Today01/28/2020;CBC DIFF ;Once;ELDER, SIERRA;Today01/28/2020;COMPREHENSIVE PANEL [...] Urine Turbidity;CLEAR;;;Final Result ;01/28/2020 10:11:00URINALYSIS ROUTINE;Dipstick Specific [place];1.020;(1.000-1.030);;Final Result ;01/28/2020 10:11:00URINALYSIS ROUTINE;Dipstick Urine pH;6.0;(5.0-8.0);;Final Result [...] rce(s) Supporting Document(s) ID Date Data Source [id number] 02/01/2020 10:48:16 AM [facility] al Note Status: FINAL (SIGNED)Full Name: Kade JONES Date: 1985Visit ID: [id number] Record Number: [id number]: 34YSex: FemaleRoom Location: ER ROOMSBed Location: ER GYNDate of Service: 02/01/2020 10:44Creation Date: 02/01/2020 10:44Created By: [facility] Physician: NONE, NONEHPI comments: Patient is a [...] normalExtrem: No clubbing/cyanosis/edemaBack: No CVA tendernessOrdersStart Date;Description;Frequency;Ordered By;[id number]/01/2020;CBC DIFF ;Once;MYLES LEE;Today02/01/2020;COMPREHENSIVE PANEL ;Once;MYLES LEE;Today02/01/2020;CULTURE URINE ;Once;MYLES LEE;Today02/01/2020;Point of Care /URINE ;Once;MYLES LEE;Today02/01/2020;URINALYSIS ROUTINE ;Once;MYLES LEE;Today02/01/2020;URINE MICROSCOPIC ;Once;MYLES LEE;Today02/01/2020;KETOROLAC 15 MG/1 ML IVP ;ED - ONE TIME ONLY;MYLES LEE;Jfraodax51/18/2020;RENAL/BLADDER U/S LIMITED ;Once;MYLES LEE;Today;CIPROFLOXACIN 500 MG ORAL ;ED - ONE TIME ONLY;MYLES LEE;;HYDROCODONE-ACETAMINOPHEN 5-325MG 1 TAB ORAL ;ED - ONE TIME ONLY;MYLES LEE;Laboratory resultsLab Results for the past 24 hoursOrder;Test;Value;Reference Range;Comments;Status;CollectionURINALYSIS ROUTINE;Dipstick Urine Color;LUIS M;;;Final Result ;02/01/2020 08:40:00URINALYSIS ROUTINE;Dipstick Urine Turbidity;CLOUDY;;;Final Result ;02/01/2020 08:40:00URINALYSIS ROUTINE;Dipstick Specific [place];1.020;(1.000-1.030);;Final Result ;02/01/2020 08:40:00URINALYSIS ROUTINE;Dipstick Urine pH;5.0;(5.0- 8.0);;Final [...] rce(s) Supporting Document(s) ID Date Data Source [id number] 02/01/2020 09:54:12 [facility], historyof kidney stones [...] Not measured.Miscellaneous: Fatty liverIMPRESSION:Normal renal ultrasound.END OF IMPRESSIONSt. [facility] then [facility] those same results to [facility]. Allresults are available to [facility] and [facility] provider portalusers. [facility] DICOM images are available to [facility] provider portal users only. [facility] DICOMimages are not available to the [facility] provider portal users. 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 [facility] RBC >100 /HPF NONE SEEN ! [facility] [employer] has definedMicroscopic Hematuria as 3 or more RBC per highpowered field from a single positive urinalysis withmicroscopy. BACTERIA MODERATE /HPF NONE SEEN ! [facility] EPITHELIAL CELLS MANY /HPF NONE SEEN ! [facility] ID Date Data Source [id number] 02/01/2020 08:54:00 AM EST [facility] Name Value Range Interpretation Code Description Data Victoria rce(s) Supporting Document(s) COLOR LUIS M [facility] APPEARANCE CLOUDY CLEAR ! [facility] SPECIFIC GRAVITY 1.020 1.000-1.030 [facility] pH 5.0 5.0-8.[address] [facility] LEUKOCYTES 2+ NEGATIVE ! [facility] NITRATE NEGATIVE NEGATIVE [facility] PROTEIN 30 [ 1+] mg/dL NEGATIVE ! [facility] GLUCOSE NORMAL mg/dL NORMAL [facility] KETONE NEGATIVE mg/dL NEGATIVE [facility] UROBILINOGEN NORMAL mg/dL NORMAL [facility] BILIRUBIN NEGATIVE mg/dL NEGATIVE [facility] HEMOGLOBIN 3+ NEGATIVE ! [facility] ID Date Data Source [id number] 02/01/2020 09:05:00 AM EST [facility] Name Value Range Interpretation Code Description Data Victoria rce(s) Supporting Document(s) SODIUM 137 mmol/L 136-[address] [facility] POTASSIUM 4.3 mmol/L 3.5-5.[address] [facility] CHLORIDE 103 mmol/L 100-[address] [facility] CO2 23 mmol/L 21-[address] [facility] GLUCOSE 98 mg/dL 70-[address] [facility] BUN 15 mg/dL 7-[address] [facility] CREATININE 0.8 mg/dL 0.6-1.[address] [facility] Normal Kidney Function or Mild Disease - GFR >OR= 60Chronic Kidney Disease - GFR 15-59Renal Failure - GFR < 15GFR not calculated on patients under 18 years of age. CALCIUM 8.6 mg/dL 8.5-10.[address] [facility] GFR >[address] [facility] T BILI 0.4 mg/dL 0.0-1.[address] [facility] T PROTEIN 7.7 gm/dL 6.4-8.[address] [facility] ALBUMIN 4.1 gm/dL 3.4-4.[address] [facility] ALK PHOS 118 U/L 40-[address] [facility] ALT (SGPT) 39 U/L 0-[address] [facility] AST (SGOT) 47 U/L 5-[address] [facility] ID Date Data Source [id number] 02/01/2020 08:44:00 AM EST [facility] Name Value Range Interpretation Code Description Data Victoria rce(s) Supporting Document(s) WBC 6.5 K/uL 4.8-10.[address] [facility] RBC 4.50 M/uL 4.20-5.[address] [facility] HEMOGLOBIN 12.7 gm/dL 12.0-16.[address] [facility] HEMATOCRIT 38.6 % 36.0-48.[address] [facility] MCV 85.9 fL 80.0-100.[address] [facility] MCHC 32.8 % 30.0-36.[address] [facility] MCH 28.2 pg 27.0-34.[address] [facility] RDW 12.9 % 11.0-15.[address] [facility] PLATELET 316 K/uL 130-[address] [facility] MPV 7.4 fL 6.0-12.[address] [facility] NE% 57 % 37-[address] [facility] LY% 34 % 10-[address] [facility] MO% 7 % 0-[address] [facility] Eosinophils [#/volume] in Blood by Automated count 2 % <=[address] [facility] BA% 0 % <=[address] [facility] NE# 3.7 K/uL 1.8-8.[address] [facility] LYMPH# 2.2 K/uL 0.5-5.[address] [facility] MONO# 0.5 K/uL 0.0-1.[address] [facility] EOS# 0.1 K/uL 0.0-0.[address] [facility] BASO# 0.0 K/ul 0.0-0.[address] [facility] ID Date Data Source [id number] 02/01/2020 06:33:07 AM EST [facility] Note Status: FINAL (SIGNED)Full Name: Kade JONES Date: 1985Visit ID: [id number] Record Number: [id number]: 34YSex: FemaleRoom Location: ER ROOMSBed Location: ER [...] rce(s) Supporting Document(s) ID Date Data Source [id number] 02/01/2020 06:30:07 AM [facility] Status: FINAL (SIGNED)Full Name: Kade JONES Date: 1985Visit ID: [id number] Record Number: [id number]: 34YSex: FemaleRoom Location: ER ROOMSBed Location: ER 14Date of Service: 01/16/2020 07:13Creation Date: 01/16/2020 07:13Created By: Kaity [facility] Care Physician: OUT OF TOWN, OUT OF [...] flank pain, rule out kidney stone.OrdersStart Date;Description;Frequency;Ordered By;[id number]/16/2020;CT-ABD PELVIS NO CONTRAST (DRY) ;Once;ELDER, SIERRA;Today01/16/2020;ED INITIATE ABDOMINAL PAIN PATHWAY ;Once;ELDER, SIERRA;01/16/2020;IV - PERIPHERAL - INSERT & MAINTAIN ;Once;ELDER, SIERRA;01/16/2020;AMYLASE ;Once;ELDER, SIERRA;01/16/2020;CBC DIFF ;Once;ELDER, SIERRA;01/16/2020;COMPREHENSIVE PANEL ;Once;ELDER, SIERRA;T oday01/16/2020;LACTIC ACID ;Once;ELDER, SIERRA;01/16/2020;LIPASE ;Once;ELDER, SIERRA;01/16/2020; TEST - SERUM ;Once;ELDER, SIERRA;01/16/2020;PT/INR ;Once;ELDER, SIERRA;01/16/2020;PTT ;Once;SIERRA ELDER;Today01/16/2020;MORPHINE 4 MG/1 ML IVP ;ED - ONE TIME ONLY;SIERRA ELDER;Gutemfqj76/2/2020;ONDANSETRON HCL (PF) 4 MG/2 ML IVP ;ED - ONE TIME ONLY;SIERRA ELDER;Sdzzrxyj24/2/2020;SODIUM CHLORIDE 0.9% 1,000 ML IV ;ED - ONE TIME ONLY;SIERRA ELDER;Fqhgmicd00/2/2020;URINALYSIS ROUTINE ;Once;SONIA BAKER;Today01/16/2020;URINE MICROSCOPIC ;Once;SONIA BAKER;2019;CULTURE URINE ;Once;SONIA BAKER;01/17/2020;ED-NPO ;Meals;SIERRA ELDER;Future;CEFTRIAXONE ADDV 1GM 1 GM QBAG IPB ;ED - ONE TIME ONLY;SIERRA ELDER;;FENTANYL 50 MCG/1 ML IVP ;ED - ONE TIME ONLY;SIERRA ELDER;Laboratory resultsLab Results for the past 24 hoursOrder;Test;Value;Reference Range;Comments;Status;CollectionURINALYSIS ROUTINE;Dipstick Urine Color;RED;;;Final Result ;01/16/2020 08:40:32URINALYSIS ROUTINE;Dipstick Urine Turbidity;CLOUDY;;;Final Result ;01/16/2020 08:40:32URINALYSIS ROUTINE;Dipstick Specific [place];1.020;(1.000-1.030);;Final Result ;01/16/2020 08:40:32URINALYSIS ROUTINE;Dipstick Urine pH;5.0;(5.0-8.0);;Final Result [...] acute diverticulitis is seen END OF IMPRESSION [facility] submits Radiology results to [facility] then provides those same results to [facility]. All results are available to [facility] and [facility] provider portal users. [facility] DICOM images are available to the [facility] provider portal users only. [facility] DICOM images are not available to the [facility] provider portal users. There is no current [facility] cross-[facility] functionality allowing images to be available through the [facility] to [facility] connectivity. Electronically signed By: Devonte Powers [...] rce(s) Supporting Document(s) ID Date Data Source [id number] 01/28/2020 01:03:15 PM EST [facility] Note Status: FINALFull Name: BILLY FIELD Date: 1985Visit ID: [id number] Record Number: [id number]: 34YSex: FemaleRoom Location: ER ROOMSBed Location: ER [...] is not warranted at this time.OrdersStart Date;Description;Frequency;Ordered By;[id number]/20/2020;ED INITIATE ABDOMINAL PAIN PATHWAY ;Once;JEROME PAIGE;Today01/20/2020;IV - PERIPHERAL - INSERT & MAINTAIN ;Once;JEROME PAIGE;01/20/2020; TEST - SERUM ;Once;JEROME PAIGE;01/20/2020;CBC DIFF ;Once;JEROME PAIGE;01/20/2020;COMPREHENSIVE PANEL ;Once;JEROME PAIGE;01/20/2020;LACTIC ACID ;Once;JEROME PAIGE;01/20/2020;PT/INR ;Once;JEROME PAIGE;01/20/2020;PTT ;Once;JEROME PAIGE;Today01/20/2020;KETOROLAC 30 MG/1 ML IVP ;ED - ONE TIME ONLY;EJROME PAIGE;Pzrqsc9201/20/2020;ONDANSETRON HCL (PF) 4 MG/2 ML IVP ;ED - ONE TIME ONLY;JEROME PAIGE;Twhhwa8801/20/2020;SODIUM CHLORIDE 0.9% 1,000 ML IV ;ED - ONE TIME ONLY;JEROME PAIGE;Wkxwhe6601/21/2020;ED-NPO ;Meals;JEROME PAIGE;Future;Point of Care URINE DIPSTICK ;Once;JEROME [...] rce(s) Supporting Document(s) ID Date Data Source [id number] 01/30/2020 10:12:00 AM EST [facility] CULTURE OBSERVATIONS 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 Name Value Range Interpretation Code Description Data [facility] rce(s) Supporting Document(s) ID Date Data Source [id number] 01/28/2020 10:48:00 AM EST [facility] Name Value Range Interpretation Code Description [facility] SODIUM 137 mmol/L 136-[address] [facility] POTASSIUM 4.3 mmol/L 3.5-5.[address] [facility] CHLORIDE 104 mmol/L 100-[address] [facility] CO2 24 mmol/L 21-[address] [facility] GLUCOSE 93 mg/dL 70-[address] [facility] BUN 16 mg/dL 7-[address] [facility] CREATININE 0.7 mg/dL 0.6-1.[address] [facility] Normal Kidney Function or Mild Disease - GFR >OR= 60Chronic Kidney Disease - GFR 15-59Renal Failure - GFR < 15GFR not calculated on patients under 18 years of age. CALCIUM 8.7 mg/dL 8.5-10.[address] [facility] GFR >[address] [facility] T BILI 0.2 mg/dL 0.0-1.[address] [facility] T PROTEIN 7.8 gm/dL 6.4-8.[address] [facility] ALBUMIN 4.2 gm/dL 3.4-4.[address] [facility] ALK PHOS 115 U/L 40-[address] [facility] ALT (SGPT) 43 U/L 0-[address] [facility] AST (SGOT) 33 U/L 5-[address] [facility] ID Date Data Source [id number] 01/28/2020 10:42:00 AM EST [facility] Name Value Range Interpretation Code Description Data [facility] rce(s) Supporting Document(s) URINE MICRO [facility] WBC 0-2 /HPF 0-[address] [facility] RBC NONE SEEN /HPF NONE SEEN [facility] BACTERIA FEW /HPF NONE SEEN ! [facility] EPITHELIAL CELLS RARE /HPF NONE SEEN ! [facility] al ID Date Data Source [id number] 01/28/2020 10:36:00 AM EST [facility] Name Value Range Interpretation Code Description Data [place] rce(s) Supporting Document(s) COLOR YELLOW [facility] APPEARANCE CLEAR CLEAR [facility] SPECIFIC GRAVITY 1.020 1.000-1.030 [facility] ital pH 6.0 5.0-8.[address] [facility] LEUKOCYTES TRACE NEGATIVE ! [facility] NITRATE NEGATIVE NEGATIVE [facility] PROTEIN NEGATIVE mg/dL NEGATIVE [facility] GLUCOSE NORMAL mg/dL NORMAL [facility] KETONE NEGATIVE mg/dL NEGATIVE [facility] UROBILINOGEN NORMAL mg/dL NORMAL [facility] BILIRUBIN NEGATIVE mg/dL NEGATIVE [facility] HEMOGLOBIN TRACE NEGATIVE ! [facility] ID Date Data Source [id number] 01/28/2020 10:24:00 AM EST [facility] Name Value Range Interpretation Code Description Data [place] rce(s) Supporting Document(s) WBC 7.5 K/uL 4.8-10.[address] [facility] RBC 4.40 M/uL 4.20-5.[address] [facility] HEMOGLOBIN 12.7 gm/dL 12.0-16.[address] [facility] HEMATOCRIT 38.0 % 36.0-48.[address] [facility] MCV 86.4 fL 80.0-100.[address] [facility] MCHC 33.4 % 30.0-36.[address] [facility] MCH 28.9 pg 27.0-34.[address] [facility] RDW 12.9 % 11.0-15.[address] [facility] PLATELET 307 K/uL 130-[address] [facility] MPV 6.7 fL 6.0-12.[address] [facility] NE% 65 % 37-[address] [facility] LY% 25 % 10-[address] [facility] MO% 8 % 0-[address] [facility] Eosinophils [#/volume] in Blood by Automated count 2 % <=[address] [facility] BA% 0 % <=[address] [facility] NE# 4.9 K/uL 1.8-8.[address] [facility] LYMPH# 1.9 K/uL 0.5-5.[address] [facility] MONO# 0.6 K/uL 0.0-1.[address] [facility] EOS# 0.1 K/uL 0.0-0.[address] [facility] BASO# 0.0 K/ul 0.0-0.[address] [facility] ID Date Data Source [id number] 01/20/2020 11:27:04 AM EST [facility] Note status: FINAL (SIGNED)Full Name: Marybeth JONES of : 1985Visit ID: [id number] Record Number: [id number]: 34YSex: FemaleRoom Location: ER ROOMSBed Location: ER [...] require critical care timePhysician signature: MYLES LEE [facility] signature date: 01/20/2020 11:26 Name Value Range Interpretation Code Description Data [facility] rce(s) Supporting Document(s) ID Date Data Source [id number] 01/20/2020 10:24:33 AM [facility] 01/20/2020 10:08 AMPELVIC ULTRASOUND WITH TRANSVAGINALCLINICAL INFORMATION: [...] further evaluationtransvaginal ultrasound would be helpful.END OF IMPRESSIONSt. [facility] then provides those same results to [facility]. Allresults are available to [facility] and [facility] provider portalusers. [facility] DICOM images are available to [facility] users only. [facility] DICOMimages are not available to the [facility] provider portal users. 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 [facility] RBC >100 /HPF NONE SEEN ! [facility] [employer] has definedMicroscopic Hematuria as 3 or more RBC per highpowered field from a single positive urinalysis withmicroscopy. BACTERIA FEW /HPF NONE SEEN ! [facility] EPITHELIAL CELLS MANY /HPF NONE SEEN ! [facility] ID Date Data Source [id number] 01/20/2020 07:52:00 AM EST [facility] Name Value Range Interpretation Code Description Data [facility] rce(s) Supporting Document(s) COLOR LUIS M [facility] APPEARANCE CLOUDY CLEAR ! [facility] SPECIFIC GRAVITY 1.020 1.000-1.030 [facility] pH 5.0 5.0-8.[address] [facility] LEUKOCYTES 2+ NEGATIVE ! [facility] NITRATE NEGATIVE NEGATIVE [facility] PROTEIN 30 [ 1+] mg/dL NEGATIVE ! [facility] GLUCOSE NORMAL mg/dL NORMAL [facility] KETONE NEGATIVE mg/dL NEGATIVE [facility] UROBILINOGEN NORMAL mg/dL NORMAL [facility] BILIRUBIN NEGATIVE mg/dL NEGATIVE [facility] HEMOGLOBIN 3+ NEGATIVE ! [facility] ID Date Data Source [id number] 01/20/2020 10:22:39 AM EST [facility] left lower back and flank pain01/20/2020 10:08 AMRENAL ULTRASOUNDCLINICAL INFORMATION: left lower back and flank pain -- PAIN, UNSPECIFIEDCOMPARISON: None.TECHNIQUE: Sonographic evaluation of the 01/2020 [facility].FINDINGS:Right Kidney: Measures 9.5 cm.Parenchyma: Normal homogeneous echotexture.Hydronephrosis: None.Calculi: None.Focal Lesions: None.Left Kidney: Measures 9.9 cm.Parenchyma: Normal homogeneous echotexture.Hydronephrosis: None.Calculi: None.Focal Lesions: None.Aorta: Non-aneurysmal.Inferior Vena Cava: Patent.Bladder: No discrete bladder wall thickening.Jets: Bilateral ureteral jets are documented.Prevoid Volume: 55 mLPostvoid Residual Volume: Not measured.Miscellaneous: Fatty liverIMPRESSION:Normal renal ultrasound.[facility] sub[facility] Radiology [facility] then provides those same results to [facility]. Allresults are available to [facility] and [facility] provider portalusers. [facility] DICOM images are available to [facility] users only. [facility] DICOMimages are not available to the [facility] provider portal users. There isno current [facility] cross-[facility] functionality allowing images to be available [facility] to [facility] connectivity.Electronically signed By: Desmond Calhoun M.D.Read By: DESMOND CALHOUNDate: 01/20/2020 10:19 Name Value Range Interpretation Code Description Data [facility] rce(s) Supporting Document(s) ID Date Data Source [id number] 01/20/2020 07:02:00 AM EST [facility] Name Value Range Interpretation Code Description Data [facility] rce(s) Supporting Document(s) LACTIC ACID 1.4 mmol/L 0.5-2.[address] [facility] ID Date Data Source [id number] 01/20/2020 07:04:00 AM EST [facility] CMP Name Value Range Interpretation Code Description Data [facility] rce(s) Supporting Document(s) SODIUM 138 mmol/L 136-[address] [facility] POTASSIUM 4.4 mmol/L 3.5-5.[address] [facility] CHLORIDE 105 mmol/L 100-[address] [facility] CO2 23 mmol/L 21-[address] [facility] GLUCOSE 101 mg/dL 70-[address] [facility] BUN 13 mg/dL 7-[address] [facility] CREATININE 0.7 mg/dL 0.6-1.[address] [facility] Normal Kidney Function or Mild Disease - GFR >OR= 60Chronic Kidney Disease - GFR 15-59Renal Failure - GFR < 15GFR not calculated on patients under 18 years of age. CALCIUM 8.1 mg/dL 8.5-10.[address] [facility] GFR >[address] [facility] T BILI 0.5 mg/dL 0.0-1.[address] [facility] T PROTEIN 7.8 gm/dL 6.4-8.[address] [facility] ALBUMIN 4.0 gm/dL 3.4-4.[address] [facility] ALK PHOS 112 U/L 40-[address] [facility] ALT (SGPT) 44 U/L 0-[address] [facility] AST (SGOT) 46 U/L 5-[address] [facility] ID Date Data Source [id number] 01/20/2020 06:59:00 AM EST [facility] Name Value Range Interpretation Code Description Data [facility] rce(s) Supporting Document(s) PTT 26.7 sec 25.6-36.[address] [facility] ID Date Data Source [id number] 01/20/2020 06:59:00 AM EST [facility] Name Value Range Interpretation Code Description Data [facility] rce(s) Supporting Document(s) PROTIME 11.1 sec 9.4-12.[address] [facility] INR 1.[address] [facility] INR INTERPERTATION 2.0 -3.0 THERAPEUTIC MONITORING2.5-3.5 HEART VALVE REPLACEMENT ID Date Data Source [id number] 01/20/2020 06:56:00 AM EST [facility] Name Value Range Interpretation Code Description Data [facility] rce(s) Supporting Document(s) SERUM TEST NEGATIVE [facility] spital PREGS METHODOLOGY [facility] denise ID Date Data Source [id number] 01/20/2020 06:49:00 AM EST [facility] CBC WITH DIFF Name Value Range Interpretation Code Description Data [facility] rce(s) Supporting Document(s) WBC 6.3 K/uL 4.8-10.[address] [facility] RBC 4.10 M/uL 4.20-5.[address] [facility] HEMOGLOBIN 12.3 gm/dL 12.0-16.[address] [facility] HEMATOCRIT 35.9 % 36.0-48.[address] [facility] MCV 87.5 fL 80.0-100.[address] [facility] MCHC 34.4 % 30.0-36.[address] [facility] MCH 30.1 pg 27.0-34.[address] [facility] RDW 13.2 % 11.0-15.[address] [facility] PLATELET 290 K/uL 130-[address] [facility] MPV 6.4 fL 6.0-12.[address] [facility] NE% 58 % 37-[address] [facility] LY% 31 % 10-[address] [facility] MO% 8 % 0-[address] [facility] Eosinophils [#/volume] in Blood by Automated count 2 % <=[address] [facility] BA% 1 % <=[address] [facility] NE# 3.7 K/uL 1.8-8.[address] [facility] LYMPH# 2.0 K/uL 0.5-5.[address] [facility] MONO# 0.5 K/uL 0.0-1.[address] [facility] EOS# 0.2 K/uL 0.0-0.[address] [facility] BASO# 0.0 K/ul 0.0-0.[address] [facility] ID Date Data Source [id number] 01/18/2020 06:51:04 PM EST [facility] Note Status: FINAL (SIGNED)Full Name: Kade JONES Date: 1985Visit ID: [id number] Record Number: [id number]: 34YSex: FemaleRoom Location: ER ROOMSBed Location: ER ORTHODate of Service: 01/18/2020 14:56Creation Date: 01/18/2020 14:56Created By: KUMAR WEBSTERPrimary Care Physician: NONE, NONETime patient first seen: [id number] Informant: PatientHPI Chief Complaint: Left flank painHPI [...] and IV hydration will be reassessed.OrdersStart Date;Description;Frequency;Ordered By;[id number]/18/2020;RENAL/BLADDER U/S LIMITED ;Once;OMAYRA JORGE;Today01/18/2020;CBC DIFF ;Once;OMAYRA JORGE;Today01/18/2020;COMPREHENSIVE PANEL ;Once;OMAYRA JORGE;Today01/18/2020; TEST - SERUM ;Once;OMAYRA JORGE;Today01/18/2020;FENTANYL 50 MCG/1 ML IVP ;ED - ONE TIME ONLY;OMAYRA JORGE;Rprjnape55/4/2020;SODIUM CHLORIDE 0.9% 1,000 ML IV ;ED - ONE TIME ONLY;OMAYRA JORGE;Iihczbcz70/4/2020;SODIUM CHLORIDE 0.9% 500 ML IV ;ED - ONE TIME ONLY;OMAYRA JORGE;Pplcrdiq26/4/2020;MEPERIDINE (PF) 50 MG/1 ML IVP ;ED - ONE TIME ONLY;OMAYRA JORGE;Jluclfnr48/4/2020;URINALYSIS ROUTINE ;Once;OMAYRA JORGE;Today;MEPERIDINE (PF) 50 MG IVP ;ED - ONE TIME ONLY;OAMYRA JORGE;Laboratory resultsLab Results for the past 24 [...] significant findings are seen. END OF IMPRESSION [facility] submits Radiology results to [facility] and [facility] then provides those same results to [facility]. All results are available to [facility] and [facility] provider portal users. [facility] DICOM images are available to the [facility] provider portal users only. [facility] DICOM images are not available to the [facility] provider portal users. There is no current [facility] functio nality allowing images to be available through the [facility] to [facility] connectivity. 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 [facility] RBC >100 /HPF NONE SEEN ! [facility] [employer] has definedMicroscopic Hematuria as 3 or more RBC per highpowered field from a single positive urinalysis withmicroscopy. BACTERIA MODERATE /HPF NONE SEEN ! [facility] EPITHELIAL CELLS FEW /HPF NONE SEEN ! [facility] ID Date Data Source [id number] 01/18/2020 06:01:00 PM EST [facility] Name Value Range Interpretation Code Description Data [facility] rce(s) Supporting Document(s) COLOR RED [facility] APPEARANCE CLOUDY CLEAR ! [facility] SPECIFIC GRAVITY 1.020 1.000-1.030 [facility] pH 5.0 5.0-8.[address] [facility] LEUKOCYTES 2+ NEGATIVE ! [facility] NITRATE POSITIVE NEGATIVE ! [facility] PROTEIN 100 [ 2+] mg/dL NEGATIVE ! [facility] l GLUCOSE NORMAL mg/dL NORMAL [facility] KETONE TRACE mg/dL NEGATIVE ! [facility] UROBILINOGEN NORMAL mg/dL NORMAL [facility] l BILIRUBIN NEGATIVE mg/dL NEGATIVE [facility] HEMOGLOBIN 3+ NEGATIVE ! [facility] ID Date Data Source [id number] 01/18/2020 04:01:00 PM EST [facility] Name Value Range Interpretation Code Description Data [facility] rce(s) Supporting Document(s) SERUM TEST NEGATIVE [facility] spital PREGS METHODOLOGY [facility] denise ID Date Data Source [id number] 01/18/2020 03:56:00 PM EST [facility] Name Value Range Interpretation Code Description Data [facility] rce(s) Supporting Document(s) WBC 7.2 K/uL 4.8-10.[address] [facility] RBC 4.01 M/uL 4.20-5.[address] [facility] HEMOGLOBIN 11.5 gm/dL 12.0-16.[address] [facility] HEMATOCRIT 34.7 % 36.0-48.[address] [facility] MCV 86.3 fL 80.0-100.[address] [facility] MCHC 33.2 % 30.0-36.[address] [facility] MCH 28.7 pg 27.0-34.[address] [facility] RDW 12.4 % 11.0-15.[address] [facility] PLATELET 307 K/uL 130-[address] [facility] MPV 6.7 fL 6.0-12.[address] [facility] NE% 62 % 37-[address] [facility] LY% 30 % 10-[address] [facility] MO% 6 % 0-[address] [facility] Eosinophils [#/volume] in Blood by Automated count 2 % <=[address] [facility] BA% 0 % <=[address] [facility] NE# 4.5 K/uL 1.8-8.[address] [facility] LYMPH# 2.1 K/uL 0.5-5.[address] [facility] MONO# 0.5 K/uL 0.0-1.[address] [facility] EOS# 0.1 K/uL 0.0-0.[address] [facility] BASO# 0.0 K/ul 0.0-0.[address] [facility] ID Date Data Source [id number] 01/18/2020 04:08:00 [facility] Name Value Range Interpretation Code Description Data [facility] rce(s) Supporting Document(s) SODIUM 140 mmol/L 136-[address] [facility] POTASSIUM 4.0 mmol/L 3.5-5.[address] [facility] CHLORIDE 107 mmol/L 100-[address] [facility] CO2 24 mmol/L 21-[address] [facility] GLUCOSE 84 mg/dL 70-[address] [facility] BUN 14 mg/dL 7-[address] [facility] CREATININE 0.7 mg/dL 0.6-1.[address] [facility] Normal Kidney Function or Mild Disease - GFR >OR= 60Chronic Kidney Disease - GFR 15-59Renal Failure - GFR < 15GFR not calculated on patients under 18 years of age. CALCIUM 8.2 mg/dL 8.5-10.[address] [facility] GFR >[address] [facility] T BILI 0.3 mg/dL 0.0-1.[address] [facility] T PROTEIN 7.2 gm/dL 6.4-8.[address] [facility] ALBUMIN 3.9 gm/dL 3.4-4.[address] [facility] ALK PHOS 106 U/L 40-[address] [facility] ALT (SGPT) 46 U/L 0-[address] [facility] AST (SGOT) 35 U/L 5-[address] [facility] ID Date Data Source [id number] 01/18/2020 06:21:03 PM EST [facility] 01/18/2020 5:43 PMRENAL ULTRASOUNDCLINICA L INFORMATION: -- Left flank painCOMPARISON: None.TECHNIQUE: Sonographic evaluation of the kidneys and bladder was performedusing grayscale ultrasound.FINDINGS:These are normal in size and echo architecture with the right kidney khagmkgvc87.4 cm the left kidney also measuring 10.4 cm maximal dimensions. Nohydronephrosis nor nephrolithiasis is seen. The bladder is normal. Bothureteral jets are seen in the bladder and to completely upon voiding.IMPRESSION:No acute nor significant findings are seen.END OF IMPRESSIONSt. [facility] then provides those same results to [facility]. Allresults are available to [facility] and [facility] provider portalusers. [facility] DICOM images are available to [facility] users only. [facility] DICOMimages are not available to the [facility] provider portal users. 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 [facility] RBC >100 /HPF NONE SEEN ! [facility] [employer] has definedMicroscopic Hematuria as 3 or more RBC per highpowered field from a single positive urinalysis withmicroscopy. BACTERIA MODERATE /HPF NONE SEEN ! [facility] EPITHELIAL CELLS MODERATE /HPF NONE SEEN ! [facility] spital ID Date Data Source [id number] 01/16/2020 08:46:00 AM EST [facility] Name Value Range Interpretation Code Description Data [facility] rce(s) Supporting Document(s) COLOR RED [facility] APPEARANCE CLOUDY CLEAR ! [facility] SPECIFIC GRAVITY 1.020 1.000-1.030 [facility] pH 5.0 5.0-8.[address] [facility] LEUKOCYTES 2+ NEGATIVE ! [facility] NITRATE NEGATIVE NEGATIVE [facility] PROTEIN 100 [ 2+] mg/dL NEGATIVE ! [facility] l GLUCOSE NORMAL mg/dL NORMAL [facility] KETONE TRACE mg/dL NEGATIVE ! [facility] UROBILINOGEN NORMAL mg/dL NORMAL [facility] BILIRUBIN NEGATIVE mg/dL NEGATIVE [facility] HEMOGLOBIN 3+ NEGATIVE ! [facility] ID Date Data Source [id number] 01/16/2020 08:10:00 AM EST [facility] AMYLASE Name Value Range Interpretation Code Description Data Victoria rce(s) Supporting Document(s) AMYLASE 43 U/L 25-[address] [facility] ID Date Data Source [id number] 01/16/2020 08:10:00 AM EST [facility] CMP Name Value Range Interpretation Code Description Data Victoria rce(s) Supporting Document(s) SODIUM 140 mmol/L 136-[address] [facility] POTASSIUM 4.3 mmol/L 3.5-5.[address] [facility] CHLORIDE 106 mmol/L 100-[address] [facility] CO2 24 mmol/L 21-[address] [facility] GLUCOSE 91 mg/dL 70-[address] [facility] BUN 11 mg/dL 7-[address] [facility] CREATININE 0.8 mg/dL 0.6-1.[address] [facility] Normal Kidney Function or Mild Disease - GFR >OR= 60Chronic Kidney Disease - GFR 15-59Renal Failure - GFR < 15GFR not calculated on patients under 18 years of age. CALCIUM 8.1 mg/dL 8.5-10.[address] [facility] GFR >[address] [facility] T BILI 0.3 mg/dL 0.0-1.[address] [facility] T PROTEIN 7.2 gm/dL 6.4-8.[address] [facility] ALBUMIN 3.8 gm/dL 3.4-4.[address] [facility] ALK PHOS 108 U/L 40-[address] [facility] ALT (SGPT) 39 U/L 0-[address] [facility] AST (SGOT) 39 U/L 5-[address] [facility] ID Date Data Source [id number] 01/16/2020 08:10:00 AM EST [facility] LIPASE Name Value Range Interpretation Code Description Data Victoria rce(s) Supporting Document(s) LIPASE 24 U/L 8-[address] [facility] ID Date Data Source [id number] 01/16/2020 08:08:00 AM EST [facility] Name Value Range Interpretation Code Description Data Victoria rce(s) Supporting Document(s) SERUM TEST NEGATIVE [facility] METHODOLOG[facility] ID Date Data Source [id number] 01/16/2020 08:06:00 AM EST [facility] Name Value Range Interpretation Code Description Data Victoria rce(s) Supporting Document(s) LACTIC ACID 1.1 mmol/L 0.5-2.[address] [facility] ID Date Data Source [id number] 01/16/2020 08:06:00 AM EST [facility] Name Value Range Interpretation Code Description Data Victoria rce(s) Supporting Document(s) PTT 26.4 sec 25.6-36.[address] [facility] ID Date Data Source [id number] 01/16/2020 08:06:00 AM EST [facility] Name Value Range Interpretation Code Description Data Victoria rce(s) Supporting Document(s) PROTIME 9.8 sec 9.4-12.[address] [facility] INR 0.[address] [facility] INR INTERPERTATION 2.0 -3.0 THERAPEUTIC MONITORING2.5-3.5 HEART VALVE REPLACEMENT ID Date Data Source [id number] 01/16/2020 07:54:00 AM EST [facility] CBC WITH DIFF Name Value Range Interpretation Code Description Data Victoria rce(s) Supporting Document(s) WBC 6.6 K/uL 4.8-10.[address] [facility] RBC 4.13 M/uL 4.20-5.[address] [facility] HEMOGLOBIN 12.2 gm/dL 12.0-16.[address] [facility] HEMATOCRIT 35.8 % 36.0-48.[address] [facility] MCV 86.6 fL 80.0-100.[address] [facility] MCHC 33.9 % 30.0-36.[address] [facility] MCH 29.4 pg 27.0-34.[address] [facility] RDW 13.1 % 11.0-15.[address] [facility] PLATELET 313 K/uL 130-[address] [facility] MPV 6.5 fL 6.0-12.[address] [facility] NE% 68 % 37-[address] [facility] LY% 25 % 10-[address] [facility] MO% 5 % 0-[address] [facility] Eosinophils [#/volume] in Blood by Automated count 1 % <=[address] [facility] BA% 1 % <=[address] [facility] NE# 4.5 K/uL 1.8-8.[address] [facility] LYMPH# 1.6 K/uL 0.5-5.[address] [facility] MONO# 0.3 K/uL 0.0-1.[address] [facility] EOS# 0.1 K/uL 0.0-0.[address] [facility] BASO# 0.0 K/ul 0.0-0.[address] [facility] ID Date Data Source [id number] 01/16/2020 08:18:12 AM EST [facility] ABD PELVIS W/O103/17/2019 7:57 [...] colon. No definiteacute diverticulitis is seenEND OF IMPRESSIONSt. [facility] then provides those same results to [facility]. Allresults are available to [facility] and [facility] provider portalusers. [facility] DICOM images are available to [facility] provider portal users only. [facility] DICOMimages are not available to the [facility] provider portal users. There isno current [facility] cross-[facility] functionality allowing images to be available throughthe [facility] to [facility] connectivity.Electronically signed By: Devonte Powers M.D.Read By: DEVONTE CONSTANTINOIDate: 01/16/2020 08:14 Name Value Range Interpretation Code Description Data Victoria rce(s) Supporting Document(s) ID Date Data Source [id number] 01/15/2020 12:48:05 PM EST [facility] INFORMATIONPatient MRN Name Date of Age Gend*PT [id number] Taniya Field 1985 34 years F EDPT Location Admission Date/Time Visit ID Attending [id number] 01/15/20 0817 --- --- EPI ID CSN Admitting Provider [id number] ---Provider in Triage NotesNo notes on fileHistory [...] her work up. [MM]ED Course User Index[MM] Jacyln OrozcoMDMNumber of Diagnoses or Management OptionsFlank pain:Diagnosis [...] rce(s) Supporting Document(s) ID Date Data Source [id number] 01/15/2020 10:40:39 AM EST [address] [id number] Name: TANIYA BENEDICTB: 1985Sex: FOrdering Provider: АНДРЕЙ MENDEZAuthojerry Prov: АНДРЕЙ MENDEZRefraad Provider: Procedure Performed: US RENAL KIDNEY BILATERALExam Date: 01/15/2020 10:07MRN: [id number] Number: [id number] Class: EmergencyAccount #: [id number] for Exam: L flank painTechnique: Real time sonographic images were obtained.Comparison: NoneFindings: Right kidney 9.3 left kidney 10.7 cm in length. Normal cortical thickness and echotexture. No hydronephrosis. No focal lesions. Urinary bladder void of urine on patient voided prior study.IMPRESSION: Kidneys within normal limits.Report electronically signed by: CAMACHO RAO On 01/15/2020 10:40 AMWorkstation ID: [id number] Name Value Range Interpretation Code Description Data Victoria rce(s) Supporting Document(s) ID Date Data Source [id number] 01/15/2020 09:45:30 AM EST [facility] Name Value Range Interpretation Code Description Data Victoria rce(s) Supporting Document(s) POC URINE HCG (NEG) [facility] PERFORMED BY [facility] CLINICAL STAFF ID Date Data Source [id number] 01/15/2020 10:20:03 AM EST [facility] Name Value Range Interpretation Code Description Data Victoria rce(s) Supporting Document(s) COLOR [facility] APPEARANCE [facility] SPEC GRAV URINE 1.019 (1.003-1.030) [facility] PH URINE 5.5 (5.0-7.5) [facility] LEUK ESTERASE 1+ (NEG) A [facility] NITRITE URINE (NEG) [facility] PROTEIN URINE (NEG) [facility] GLUCOSE URINE (NEG) [facility] KETONE URINE (NEG) [facility] UROBILINOGEN 0.2 mg/dL (0-1.0) [facility] BILIRUBIN URINE (NEG) [facility] BLOOD/HGB URINE (NEG) [facility] EPITHELIAL CELLS 3+ [HPF] (NEG) A [facility] HYALINE CASTS 1.2 [LPF] (0-5) [facility] BACTERIA 3+ [HPF] (NEG) A [facility] URINE WBC 6.0 [HPF] (0-8) [facility] URINE RBC 3.2 [HPF] (0-3) H [facility] ID Date Data Source [id number] 01/15/2020 10:09:22 AM EST [facility] Name Value Range Interpretation Code Description Data Victoria rce(s) Supporting Document(s) URN CULTURE HOLD [facility] FOR ADD ON CULTURE ID Date Data Source [id number] 01/15/2020 11:35:45 AM EST [facility] Name Value Range Interpretation Code Description Data Victoria rce(s) Supporting Document(s) PT 9.8 s (9.2-11.9) [facility] INR 0.93 [facility] SUGGESTED THERAPEUTIC RANGES USING INR F ORSTABILIZED ANTICOAGULATED PATIENTS:STANDARD DOSE THERAPY INR 2.0-3.0 DVT, PE, PREVENT DVT OR EMBOLISMHIGH DOSE THERAPY INR 2.5-3.5 PREVENT EMBOLISM FROM MECHANICAL HEART VALVE ID Date Data Source [id number] 01/15/2020 11:35:45 AM EST [facility] Name Value Range Interpretation Code Description Data Victoria rce(s) Supporting Document(s) APTT 23.6 s (22.0-34.3) [facility] ID Date Data Source [id number] 01/15/2020 10:33:20 AM EST [facility] Name Value Range Interpretation Code Description Data Victoria rce(s) Supporting Document(s) SODIUM 140 mmol/L (136-145) [facility] POTASSIUM 3.7 mmol/L (3.6-5.2) [facility] CHLORIDE 109 mmol/L (100-108) H [facility] CO2 27 mmol/L (22-31) [facility] ANION GAP 4 mmol/L (7-16) L [facility] UREA NITROGEN 11 mg/dL (7-24) [facility] CREATININE 0.77 mg/dL (0.60-1.00) [facility] BUN/CREAT RATIO 14.3 RATIO (10.0-20.0) [facility] GLUCOSE 97 mg/dL (70-99) [facility] CALCIUM 8.5 mg/dL (8.4-10.2) [facility] TOTAL PROTEIN 7.2 g/dL (6.4-8.2) [facility] ALBUMIN 3.2 g/dL (3.5-4.6) L [facility] GLOBULIN 4.0 g/dL (2.7-4.3) [facility] ALB/GLOB RATIO 0.8 RATIO [facility] ALKALINE PHOSPHATASE 111 U/L (45-117) [facility] BILIRUBIN,TOTAL 0.3 mg/dL (0.0-1.0) [facility] PLEASE NOTE:Total bilirubin results may be falselyelevated in patients taking Eltrombopag. AST (SGOT) 39 U/L (11-39) [facility] ALT (SGPT) 49 U/L (12-78) [facility] GFR >60 ml/min/1.73m2 (>59) [facility] GFR ( AMER) >60 ml/min/1.73m2 (>59) [facility] GFR INTERPRETATION [facility] --NORMAL KIDNEY FUNCTION OR MILD DISEASE - GFR >OR= 60CHRONIC KIDNEY DISEASE - GFR 15 - 59RENAL FAILURE - GFR <15 Est. GFR calculation based on the MDRDstudy equation, which assumes a steadystate for creatinine. Est. GFR should notbe used for medication dosing. ID Date Data Source [id number] 01/15/2020 10:30:34 AM EST [facility] Name Value Range Interpretation Code Description Data Victoria rce(s) Supporting Document(s) LIPASE 83 U/L (65-230) [facility] ID Date Data Source [id number] 01/15/2020 10:14:33 AM EST [facility] Name Value Range Interpretation Code Description Data Victoria rce(s) Supporting Document(s) WBC 6.5 10*3/uL (4.1-11.0) [facility] [place] RBC 4.24 10*6/uL (4.00-5.40) [facility] HGB 12.0 g/dL (12.0-16.0) [facility] HCT 36.3 % (36.0-47.0) [facility] MCV 85.5 fL (80.0-95.0) [facility] MCH 28.2 pg (27.0-32.0) [facility] MCHC 33.0 g/dL (32.0-36.0) [facility] RDW 13.9 % (10.5-14.5) [facility] PLT 342 10*3/uL (150-450) [facility] MPV 7.6 fL (7.1-10.7) [facility] NEUT % 70.1 % (35.0-75.0) [facility] LYMPH % 22.0 % (16.0-52.0) [facility] MONO % 5.9 % (0.0-8.0) [facility] EOS % 1.7 % (0.0-5.0) [facility] BASO % 0.3 % (0.0-4.0) [facility] NEUT # 4.5 10*3/uL (1.8-7.7) [facility] LYMPH # 1.4 10*3/uL (1.2-4.8) [facility] MONO # 0.4 10*3/uL (0.0-0.8) [facility] Eosinophils [#/volume] in Blood by Automated count 0.1 10*3/uL (0.0-0 .5) [facility] BASO # 0.0 10*3/uL (0.0-0.2) [facility] ID Date Data Source [id number] 01/05/2020 08:37:48 AM EDT [facility] Name Value Range Interpretation Code Description Data Victoria rce(s) Supporting Document(s) COLOR [facility] APPEARANCE [facility] SPEC GRAV URINE 1.013 (1.003-1.030) [facility] PH URINE 5.5 (5.0-7.5) [facility] LEUK ESTERASE (NEG) [facility] CRITERIA FOR CULTURE NOT MET.CULTURE CAN BE ADDED WITHIN 36 HOURS OFCOLLECTION. NITRITE URINE (NEG) [facility] PROTEIN URINE (NEG) [facility] GLUCOSE URINE (NEG) [facility] KETONE URINE (NEG) [facility] UROBILINOGEN 0.2 mg/dL (0-1.0) [facility] BILIRUBIN URINE (NEG) [facility] BLOOD/HGB URINE (NEG) [facility] ID Date Data Source [id number] 01/05/2020 08:44:25 AM EDT [facility] Name Value Range Interpretation Code Description Data Victoria rce(s) Supporting Document(s) SODIUM 139 mmol/L (136-145) [facility] POTASSIUM 4.4 mmol/L (3.6-5.2) [facility] CHLORIDE 108 mmol/L (100-108) [facility] CO2 25 mmol/L (22-31) [facility] ANION GAP 6 mmol/L (7-16) L [facility] UREA NITROGEN 18 mg/dL (7-24) [facility] CREATININE 0.88 mg/dL (0.60-1.00) [facility] BUN/CREAT RATIO 20.5 RATIO (10.0-20.0) H [facility] GLUCOSE 95 mg/dL (70-99) [facility] CALCIUM 8.4 mg/dL (8.4-10.2) [facility] GFR >60 ml/min/1.73m2 (>59) [facility] GFR ( AMER) >60 ml/min/1.73m2 (>59) [facility] GFR INTERPRETATION [facility] --NORMAL KIDNEY FUNCTION OR MILD DISEASE - GFR >OR= 60CHRONIC KIDNEY DISEASE - GFR 15 - 59RENAL FAILURE - GFR <15 Est. GFR calculation based on the MDRDstudy equation, which assumes a steadystate for creatinine. Est. GFR should notbe used for medication dosing. ID Date Data Source [id number] 01/05/2020 08:41:44 AM EDT [facility] Name Value Range Interpretation Code Description Data Victoria rce(s) Supporting Document(s) HCG, QUAL. SERUM (NEG) [facility] ID Date Data Source [id number] 01/05/2020 08:17:05 AM EDT [facility] Name Value Range Interpretation Code Description Data Victoria rce(s) Supporting Document(s) WBC 6.8 10*3/uL (4.1-11.0) [facility] RBC 4.28 10*6/uL (4.00-5.40) [facility] HGB 12.1 g/dL (12.0-16.0) [facility] HCT 36.5 % (36.0-47.0) [facility] MCV 85.2 fL (80.0-95.0) [facility] MCH 28.2 pg (27.0-32.0) [facility] MCHC 33.1 g/dL (32.0-36.0) [facility] RDW 13.7 % (10.5-14.5) [facility] PLT 339 10*3/uL (150-450) [facility] MPV 6.7 fL (7.1-10.7) L [facility] NEUT % 64.5 % (35.0-75.0) [facility] LYMPH % 25.6 % (16.0-52.0) [facility] MONO % 7.8 % (0.0-8.0) [facility] EOS % 1.8 % (0.0-5.0) [facility] BASO % 0.3 % (0.0-4.0) [facility] NEUT # 4.4 10*3/uL (1.8-7.7) [facility] LYMPH # 1.7 10*3/uL (1.2-4.8) [facility] MONO # 0.5 10*3/uL (0.0-0.8) [facility] Eosinophils [#/volume] in Blood by Automated count 0.1 10*3/uL (0.0-0 .5) [facility] BASO # 0.0 10*3/uL (0.0-0.2) [facility] ID Date Data Source [id number] 12/26/2019 02:25:31 PM EDT [facility] NT INFORMATIONPatient MRN Name Date of Age Gend*PT [id number] Taniya Field 1985 34 years F EDPT Location Admission Date/Time Visit ID Attending [id number] 12/26/19 0845 --- --- EPI ID CSN Admitting Provider [id number] ---Attestation signed by Kathy Cox MD at [...] 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 She had a normalrenal sonogram [...] Range Color, UA YELLOW Appearance CLOUDY Specific [place], UA 1.013 1.003 - 1.030 pH, Urine [...] NEGATIVECt Abdomen Pelvis Without Iv ContrastResult Date: 12/26/2019[place] [address] Patient Name: JHONY FIELD : 1985 Sex: [...] DAMON THAKKAR On 12/26/201910:11 AM Workstation ID: [id number] Diagnoses or Management OptionsDiagnosis management comments: Patient is a 34-year-old female who [facility] ED for evaluation of left flank [...] rce(s) Supporting Document(s) ID Date Data Source [id number] 12/26/2019 10:11:00 AM EDT [address] [id number] Name: TANIYA MARTINEZPENELOPEB: 1985Sex: FOrdering Provider: RIGO Johnson Prov: RIGO Santo Provider: Procedure Performed: CT ABDOMEN PELVIS WO CONTRASTExam Date: 12/26/2019 09:48MRN: [id number] Number: [id number] Class: EmergencyAccount #: [id number] for Exam: L flank and LLQ abdominal [...] DAMON THAKKAR On 12/26/2019 10:11 AMWorkstation ID: [id number] Name Value Range Interpretation Code Description Data Victoria rce(s) Supporting Document(s) ID Date Data Source [id number] 12/26/2019 09:32:21 AM EDT [facility] Name Value Range Interpretation Code Description Data Victoria rce(s) Supporting Document(s) POC URINE HCG (NEG) [facility] PERFORMED BY [facility] CL[facility] STAFF ID Date Data Source [id number] 12/27/2019 07:34:34 AM EDT [facility] SPECIMEN DESCRIPTION MIDSTREAM UR INE,CLEAN CATCHCULTURE RESULTS MIXED UROGENITAL RADHA; PLEASE SUBMIT A NEW SPEC IMEN IF CLINICALLY INDICATED.REPORT STATUS FINAL 12/27/2019 Name Value Range Interpretation Code Description Data Victoria rce(s) Supporting Document(s) ID Date Data Source [id number] 12/26/2019 10:23:34 AM EDT [facility] Name Value Range Interpretation Code Description Data Victoria rce(s) Supporting Document(s) SODIUM 139 mmol/L (136-145) [facility] POTASSIUM 4.2 mmol/L (3.6-5.2) [facility] CHLORIDE 104 mmol/L (100-108) [facility] CO2 25 mmol/L (22-31) [facility] ANION GAP 10 mmol/L (7-16) [facility] UREA NITROGEN 20 mg/dL (7-24) [facility] CREATININE 0.86 mg/dL (0.60-1.00) [facility] BUN/CREAT RATIO 23.3 RATIO (10.0-20.0) H [facility] GLUCOSE 89 mg/dL (70-99) [facility] CALCIUM 9.0 mg/dL (8.4-10.2) [facility] TOTAL PROTEIN 8.1 g/dL (6.4-8.2) [facility] ALBUMIN 3.6 g/dL (3.5-4.6) [facility] GLOBULIN 4.5 g/dL (2.7-4.3) H [facility] ALB/GLOB RATIO 0.8 RATIO [facility] ALKALINE PHOSPHATASE 122 U/L (45-117) H [facility] BILIRUBIN,TOTAL 0.4 mg/dL (0.0-1.0) [facility] PLEASE NOTE:Total bilirubin results may be falselyelevated in patients taking Eltrombopag. AST (SGOT) 32 U/L (11-39) [facility] ALT (SGPT) 48 U/L (12-78) [facility] GFR >60 ml/min/1.73m2 (>59) [facility] GFR ( AMER) >60 ml/min/1.73m2 (>59) [facility] GFR INTERPRETATION [facility] --NORMAL KIDNEY FUNCTION OR MILD DISEASE - GFR >OR= 60CHRONIC KIDNEY DISEASE - GFR 15 - 59RENAL FAILURE - GFR <15 Est. GFR calculation based on the MDRDstudy equation, which assumes a steadystate for creatinine. Est. GFR should notbe used for medication dosing. ID Date Data Source [id number] 12/26/2019 10:20:33 AM EDT [facility] Name Value Range Interpretation Code Description Data Victoria rce(s) Supporting Document(s) MAGNESIUM 2.3 mg/dL (1.7-2.4) [facility] ID Date Data Source [id number] 12/26/2019 10:20:33 AM EDT [facility] Name Value Range Interpretation Code Description Data Victoria rce(s) Supporting Document(s) LIPASE 99 U/L (65-230) [facility] ID Date Data Source [id number] 12/26/2019 10:17:27 AM EDT [facility] Name Value Range Interpretation Code Description Data [facility] rce(s) Supporting Document(s) COLOR [facility] APPEARANCE [facility] SPEC GRAV URINE 1.013 (1.003-1.030) [facility] PH URINE 5.5 (5.0-7.5) [facility] LEUK ESTERASE 2+ (NEG) A [facility] NITRITE URINE (NEG) [facility] PROTEIN URINE 1+ (NEG) A [facility] GLUCOSE URINE (NEG) [facility] KETONE URINE (NEG) [facility] UROBILINOGEN 0.2 mg/dL (0-1.0) [facility] BILIRUBIN URINE (NEG) [facility] BLOOD/HGB URINE 3+ (NEG) A [facility] EPITHELIAL CELLS 2+ [HPF] (NEG) A [facility] HYALINE CASTS 1.8 [LPF] (0-5) [facility] BACTERIA 2+ [HPF] (NEG) A [facility] URINE WBC 34.5 [HPF] (0-8) H [facility] URINE RBC 894.7 [HPF] (0-3) H [facility] ID Date Data Source [id number] 12/26/2019 10:06:37 AM EDT [facility] Name Value Range Interpretation Code Description Data Victoria rce(s) Supporting Document(s) WBC 6.5 10*3/uL (4.1-11.0) [facility] RBC 4.59 10*6/uL (4.00-5.40) [facility] HGB 12.7 g/dL (12.0-16.0) [facility] HCT 38.7 % (36.0-47.0) [facility] MCV 84.3 fL (80.0-95.0) [facility] MCH 27.7 pg (27.0-32.0) [facility] MCHC 32.8 g/dL (32.0-36.0) [facility] RDW 13.0 % (10.5-14.5) [facility] PLT 342 10*3/uL (150-450) [facility] MPV 7.3 fL (7.1-10.7) [facility] NEUT % 69.9 % (35.0-75.0) [facility] LYMPH % 22.4 % (16.0-52.0) [facility] MONO % 5.7 % (0.0-8.0) [facility] EOS % 1.3 % (0.0-5.0) [facility] BASO % 0.7 % (0.0-4.0) [facility] NEUT # 4.5 10*3/uL (1.8-7.7) [facility] LYMPH # 1.4 10*3/uL (1.2-4.8) [facility] MONO # 0.4 10*3/uL (0.0-0.8) [facility] Eosinophils [#/volume] in Blood by Automated count 0.1 10*3/uL (0.0-0 .5) [facility] BASO # 0.0 10*3/uL (0.0-0.2) [facility] ID Date Data Source [id number] 12/26/2019 10:02:55 AM EDT [facility] Name Value Range Interpretation Code Description Data [facility] rce(s) Supporting Document(s) URN CULTURE HOLD [facility] FOR ADD ON CULTURE ID Date Data Source [id number] 12/25/2019 09:40:33 AM EDT [facility] INFORMATIONPatient MRN Name Date of Age Gend*PT [id number] Taniya Field 1985 34 years F EDPT Location Admission Date/Time Visit ID Attending [id number] 12/24/19 1223 --- --- EPI ID CSN Admitting Provider [id number] ---Attestation signed by Kathy Cox MD at [...] Has not taken any pain medications formanagement [id number]. Denies any vaginal discharge, vaginal bleeding,new sexual [...] 16 | Wt (!) 118.4 kg | [id number]% | BMI 49.32 kg/m Physical ExamConstitutional: She [...] rce(s) Supporting Document(s) ID Date Data Source [id number] 12/24/2019 01:37:15 PM EDT [address] [id number] Name: TANIYA MARTINEZPENELOPEB: 1985Sex: FOrdering Provider: АНДРЕЙ Funez Prov: АНДРЕЙ MARTISCHReferring Provider: Procedure Performed: US RENAL KIDNEY BILATERALExam Date: 12/24/2019 13:28MRN: [id number] Number: [id number] Class: EmergencyAccount #: [id number] for Exam: L flank painTechnique: Real time [...] JAMES MURRAY On 12/24/2019 1:37 PMWorkstation ID: [id number] Name Value Range Interpretation Code Description Data Victoria rce(s) Supporting Document(s) ID Date Data Source [id number] 12/24/2019 01:05:04 PM EDT [facility] Name Value Range Interpretation Code Description Data Victoria rce(s) Supporting Document(s) POC URINE HCG (NEG) [facility] [place] [facility] PERFORMED BY [facility]INICAL STAFF ID Date Data Source [id number] 12/24/2019 02:00:39 PM EDT [facility] [place] [facility] Name Value Range Interpretation Code Description Data Victoria rce(s) Supporting Document(s) COLOR [facility] [place] [facility] APPEARANCE [facility] [place] [facility] SPEC GRAV URINE 1.016 (1.003-1.030) [facility] PH URINE 5.0 (5.0-7.5) [facility] [place] [facility] LEUK ESTERASE 2+ (NEG) [facility] [place] [facility] NITRITE URINE (NEG) [facility] [place] [facility] PROTEIN URINE 1+ (NEG) A [facility] [place] [facility] GLUCOSE URINE (NEG) [facility] [place] [facility] KETONE URINE (NEG) [facility] [place] [facility] [place] UROBILINOGEN 0.2 mg/dL (0-1.0) [facility] [place] [facility] [place] BILIRUBIN URINE (NEG) [facility] [place] [facility] BLOOD/HGB URINE 3+ (NEG) A [facility] [place] [facility] EPITHELIAL CELLS 3+ [HPF] (NEG) A [facility] [place] [facility] HYALINE CASTS 3.2 [LPF] (0-5) [facility] [place] [facility] BACTERIA 3+ [HPF] (NEG) A [facility] [place] [facility] URINE WBC 44.0 [HPF] (0-8) H [facility] [place] [facility] URINE RBC 654.6 [HPF] (0-3) H [facility] [place] [facility] ID Date Data Source [id number] 12/24/2019 01:52:11 PM EDT [facility] [place] [facility] Name Value Range Interpretation Code Description Data Victoria rce(s) Supporting Document(s) URN CULTURE HOLD [facility] [place] [facility] [place] FOR ADD ON CULTURE ID Date Data Source [id number] 12/24/2019 02:11:08 PM EDT [facility] [place] [facility] Name Value Range Interpretation Code Description Data Victoria rce(s) Supporting Document(s) APTT 23.8 s (22.0-34.3) [facility] [place] [facility] [place] [facility] ID Date Data Source [id number] 12/24/2019 02:11:08 PM EDT [facility] [place] [facility] Name Value Range Interpretation Code Description Data Victoria rce(s) Supporting Document(s) PT 10.3 s (9.2-11.9) [facility] [place] [facility] INR 0.98 [facility] [place] [facility] [place] SUGGESTED THERAPEUTIC RANGES USING INR F ORSTABILIZED ANTICOAGULATED PATIENTS:STANDARD DOSE THERAPY INR 2.0-3.0 DVT, PE, PREVENT DVT OR EMBOLISMHIGH DOSE THERAPY INR 2.5-3.5 PREVENT EMBOLISM FROM MECHANICAL HEART VALVE ID Date Data Source [id number] 12/24/2019 01:51:26 PM EDT [facility] [place] [facility] Name Value Range Interpretation Code Description Data Victoria rce(s) Supporting Document(s) SODIUM 141 mmol/L (136-145) [facility] [place] [facility] POTASSIUM 4.4 mmol/L (3.6-5.2) [facility] [place] [facility] CHLORIDE 107 mmol/L (100-108) [facility] [place] [facility] CO2 27 mmol/L (22-31) [facility] [place] [facility] ANION GAP 7 mmol/L (7-16) [facility] [place] [facility] UREA NITROGEN 13 mg/dL (7-24) [facility] [place] [facility] CREATININE 0.90 mg/dL (0.60-1.00) [facility] [place] [facility] BUN/CREAT RATIO 14.4 RATIO (10.0-20.0) [facility] GLUCOSE 82 mg/dL (70-99) [facility] [place] [facility] CALCIUM 9.4 mg/dL (8.4-10.2) [facility] [place] [facility] TOTAL PROTEIN 7.7 g/dL (6.4-8.2) [facility] [place] [facility] ALBUMIN 3.8 g/dL (3.5-4.6) [facility] [place] [facility] GLOBULIN 3.9 g/dL (2.7-4.3) [facility] [place] [facility] ALB/GLOB RATIO 1.0 RATIO [facility] [place] [facility] ALKALINE PHOSPHATASE 125 U/L (45-117) H [facility] BILIRUBIN,TOTAL 0.3 mg/dL (0.0-1.0) [facility] [place] [facility] PLEASE NOTE:Total bilirubin results may be falselyelevated in patients taking Eltrombopag. AST (SGOT) 41 U/L (11-39) H [facility] [place] [facility] ALT (SGPT) 57 U/L (12-78) [facility] [place] [facility] GFR >60 ml/min/1.73m2 (>59) [facility] [place] [facility] GFR ( AMER) >60 ml/min/1.73m2 (>59) [facility] [place] [facility] GFR INTERPRETATION [facility] --NORMAL KIDNEY FUNCTION OR MILD DISEASE - GFR >OR= 60CHRONIC KIDNEY DISEASE - GFR 15 - 59RENAL FAILURE - GFR <15 Est. GFR calculation based on the MDRDstudy equation, which assumes a steadystate for creatinine. Est. GFR should notbe used for medication dosing. ID Date Data Source [id number] 12/24/2019 01:49:11 PM EDT [facility] [place] [facility] Name Value Range Interpretation Code Description Data Victoria rce(s) Supporting Document(s) LIPASE 95 U/L (65-230) [facility] [place] [facility] ID Date Data Source [id number] 12/24/2019 01:25:45 PM EDT [facility] [place] [facility] Name Value Range Interpretation Code Description Data Victoria rce(s) Supporting Document(s) WBC 6.7 10*3/uL (4.1-11.0) [facility] [place] [facility] [place] RBC 4.46 10*6/uL (4.00-5.40) [facility] [place] [facility] HGB 12.7 g/dL (12.0-16.0) [facility] [place] [facility] HCT 37.5 % (36.0-47.0) [facility] [place] [facility] MCV 84.1 fL (80.0-95.0) [facility] [place] [facility] MCH 28.5 pg (27.0-32.0) [facility] [place] [facility] MCHC 33.9 g/dL (32.0-36.0) [facility] [place] [facility] RDW 13.7 % (10.5-14.5) [facility] [place] [facility] PLT 368 10*3/uL (150-450) [facility] [place] [facility] MPV 7.1 fL (7.1-10.7) [facility] [place] [facility] NEUT % 66.1 % (35.0-75.0) [facility] [place] [facility] LYMPH % 24.5 % (16.0-52.0) [facility] [place] [facility] MONO % 5.9 % (0.0-8.0) [facility] [place] [facility] EOS % 0.8 % (0.0-5.0) [facility] [place] [facility] BASO % 2.7 % (0.0-4.0) [facility] [place] [facility] NEUT # 4.5 10*3/uL (1.8-7.7) [facility] [place] [facility] LYMPH # 1.7 10*3/uL (1.2-4.8) [facility] [place] [facility] MONO # 0.4 10*3/uL (0.0-0.8) [facility] [place] [facility] Eosinophils [#/volume] in Blood by Automated count 0.1 10*3/uL (0.0-0 .5) [facility] [place] [facility] BASO # 0.2 10*3/uL (0.0-0.2) [facility] [place] [facility] ID Date Data Source [id number] 12/19/2019 07:21:53 PM EDT [facility] Name Value Range Interpretation Code Description Data Victoria rce(s) Supporting Document(s) EKG/ECG IN ED [facility] [file] Y2toyNWILPfLMAIYAXWBNBAVSCQNHKHWFZZZWDTKGBHJEFRMUWGJMLQDETNWCQSDYPHUAZDUWFBALVHR VJYXCFICYTEBAGIPBGVPPa11s+/bf8C/fVSGAPv2AXb05OHEIEKW8L0L0v/qYN6Y0Nt/ZKKKmWxjX/AI iXNcPLVdOCKukxbU5Z7Bx6f3Bs+vYf+jLnp9NF9oih nh/gQUUUVRuFeTfG/wD1Oi/Wb/0WampeoF1/1dEHqE4RPWelp5yMRSUyQlX/5Duo/kLYqA1R4OY7WSXX xlx39R8Yu7YOUYHevPo2bi0Y9Uaq3g/9kooqZbGNf+Por0allokqtrgxkMFnOkB/5Duo/xPUjG1F2WS5 AVUAlku69H4TFipzhwhqU8i+N/8AqdF+s3/slFFTLY xr/lWOqrnFLCGY7WArIGWq8K8Ee0u6Yb4Kf6D/JOMS5npsf41ZnOm+XhvfahjxF4n+N/8AqdF+s3/slF FTLYxr/dBBudsOOSVzvpRZVRQ3k1PJ+Q7qP/XsP/ReAhfKSTHF8UP/DIKGTYNYw5D4S7k/UWL0N2Bf/Z KKKmWxjX/xu4xbrMOgJJU6lWEXDggdoFJ/AJDuo/8A XqP/DOHT7EGAQh7ZCg/1VEJRGSN5Je+G/fExVU4G1ja/LIWOSG4jXs2Cc6MAUZOPqrUVFQAULLJUZVWH UUAFFFFABRRRQAUUUUAFFFFABRRRQAUUUUAFFFFABRRRQAUUUUAFFFFABRRRQAUUUUAFFFFAH//ZDQpl adAxmQIwNH1PVvChTH0iln4IVWWbMYGdAjeMFzi7Y5 I9oWZxU1OgN8GcV63hZq9DbAAekAM1OO7JoIf8IFPnFmsyvWUZCHYlSTDxFHHrM1QvIHZ3Yv3+DQpzdH JmDI8LUiaeaVTuH9YeINU1qt7cNtiUqkj5cREaDSJPh1QSGY9JInDE8o4vylwdyHXgc8+99xKMIABMIE aTHP3SkCbBJOu2ZHFNgIHyFvMEWFoXrrTNTyQZDYO0 ZmW6BRN0idc2G1yQgIkMr6Ijayp6lwlR9Ul4BYBZIbFKco5A9yCpxSEXl1sBK3A24f1Fc4GyiyuCDpmq Su3QPuS5jcimJyweeP/pNbEDb2ZNe7W38viQv1jedd8o+1qcLtTE7xvu6kqNIG3DJZ4px7JfUVTyQCkl cuMbRqdHEgF3GURhs5JvZPk9GM5Brk7quGUpyhv+/w AVEQiOYxVtRZ0VcgNiTACBlIPrOFQNBkRdPVWTsBRsRJRDCSHPED3SsdMwUEESJoCpNHPLOsfwR3AnTN Rvcij+/bLFBNeYDqZhPU9OpaWwCTDFyHZpGDWQYlAiUXSKbMNcKXFGQGAXFZ6HkdUmKRRFCmSyTYBESg rlW4KgISOqm06BKFBzYJO9EiGxDHTwNYSnOuW0XOyp HD1Rk4DBESOiNTS0YjPqRKVmPRZgGtS1UAcuRF1+BUtgzgNgDpbEIcM6QHIfp4WoZOnqOLT7TC3qPZxv peAyLuaYTpJjODRnj4IhEXzaLRP7LI9ePBeqzyIjOrwHQhEjZJNgz5LaFNf0NZ1AaGOrJ5lVOHQvZ4s9 UJNoLD4MMjIsSCXfSu1tJ4Bzr3YhCYEsLDSiPW9nvg GtZGXoUQKrQRCeDOIsHCClN9D1D6UdGBW7SFT0GWjXMWR3PyUdIEFmXnOfWgl6ELlTGpqNMhvCVVwMTO Z6UIP2HzjgZWAdGAzFL7DOSU4uDF0BgEk1ZIIlOlgwpAKFAWDyFXXaMBKjT3YpVZe2Pq4BInZ0dgTfqB 0KeJxjYACC//5FvvNzFcAPzcJFS8VN45CgyMFoGQCX XJQfhEKQSP2JdzvX5OXcNGtYELBxgSGKXCgFXeeIqAGFRuKQccWX4vNATcRbp+xBYK2PDmBa7OstMNao loThaNGgXP9LLlSuCK3zwj6VbKWmHf0HUJJvVc0UKILsLGTyFXRwCES9ZDIcANXbDTxtAIMrSABpRLQ4 PXPlKXUkKV6JPuZzQPSxNYVbXkOrCVExRWVghi0PSO LkCYHfSOA1QADkAQQoRIAuPRuiXIBtBTZuIGNfVVSjQSXrGF6KRdCvUEUcLUH6McDqQGKbLCYhra8DLZ TtKIOlCAuzYbUaZNOoGXPcYDoaAJNpWGBlKNC7BACtKABfRT1JZxMnKSCxNQPiRqrpEIVfPFMsdr2MCA FcDWBkKNJ1BARqHKGiHQDwMZumLOHnXZSyDDZjKIC4 WHP9ZUSYZlPsMCPaGTGlERFmStN6CpKeIu5IOFMeMPVtDVXnXqL0YLFnSOOmJEyfQVKoMWBqQAC0KWU5 GQL7WEUKYyOjWOPjFXFpHGUhJmF5ChRnQc6WRSEfQKHqJQDqUnI9MDMkTLRkAYbmIJIpPSZeWJF9JBU7 HER6TJRXCzFfVPTkAQXgGPDyFgT2GtOhMf5OZWWtFO SjGvB7HxBiSYArWJRyWAohPIPzBoD8PegvFHMpCRMwBW4DHvOjCPWqPEW1WJQkFHBwXQYvip2LXABxIR GhRpOgEbPcRCCeFUNfFTz7qcUziQPdSFq9CJ5PjWswPXNjE7Lbb9NfRQCfTXDaRY4zozTzGOZjUAFdXO EuOBIhGECxK4D7V0VrCSB7LUA6LXxXFQX0SbFmJJBn BkSxTyo6ZIfYYgvMYqvITRwOFBB5BBH2QranXWCmHFoMT5RHDG9rUT1+DQpzdGFydHhyZWYNCjIwNjcy AB8RZZQOO0OKBepeLZTSLtJxBC1IcXDttXices3ZQZflN5p8KALrSg1Ki665PYKkHGMZS5qdZo2sHEtp MUMFS3jSHba3EEfSHhrPAjhYXYqPATA3FHA6AqbnZA FcHEeDP0GEPV61RyP5ZzP8DAm4TLB1Tjb9Ulz0B8C8XEPJGPY0OZCRHXK+IQOwTZNscvVdBUF0OiCwTO QsHjH3tVVaFZA2Nyh+Os9Ia0AdiwH4meAnRNcqRSkuFoLJFfElLA6C ID Date Data Source [id number] 12/19/2019 07:21:[place] [address] Patient Name: Taniya Field Exam Date: 12/19/19 : 1985 CC: EKG/ECG in ED Ordering Doctor: Tyler Moreno MD Attending Doctor: Tyler Moreno MD CC: EKG/ECG in ED APPROVED REPORT ECG MEASUREMENT Heart Rate 84 AXES MN 141 P 38 QRSd 93 QRS -21 QT 364 T -9 QTc 405 INTERPRETATION Normal sinus rhythm, no acute signs of ischemia infarction, normal axis, normal QRS, rate 84 <Conclusion> Normal sinus rhythm, no acute signs of ischemia infarction, normal axis, normal QRS, rate 84 End of diagnostic report for accession: [id number] Interpreted: Tyler Moreno MD 12/19/191920 Transcribed: Signed: [...] Ever Smoked complete d Denies Ever Smoked [facility] Alcohol intake 12/24/2019 12:00:00 AM EDT No completed [facility] Smoking 12/24/2019 12:00:00 AM EDT Never smoker completed Never s moker [facility] Vital Signs ID Date Data Source UNK Name Value Range Interpretation Code Description Data Source(s) Body temperature 96.5 [degF] 96.5 [degF] [facility] Forehead Diastolic blood pressure 80 mm[Hg] 80 mm[Hg] [facility]) Respiratory rate 16 /min 16 /min [facility] ( [facility]) Body height 60 [in_i] 60 [in_i] [facility] 5'0" Body mass index (BMI) [Ratio] 51.0 kg/m2 51.0 k g/m2 [facility]) [place] body weight 100 [lb_av] 100 [lb_av] [facility] T ([facility]) Oxygen saturation in Arterial blood by Pulse oximetry 96 % 96 % [facility]) Room Air Body height 152.4 cm 152.4 cm [facility] Body weight 261.00 [lb_av] 261.00 [lb_av] [facility] ([facility]) Stated by Pt Heart rate 81 /min 81 /min [facility]) Systolic blood pressure 124 mm[Hg] 124 mm[Hg] M EDENT ([facility]) Body temperature 97.1 [degF] 97.1 [degF] [facility]) Forehead Body weight 272.00 [lb_av] 272.00 [lb_av] [facility] ([facility]) Heart rate 76 /min 76 /min [facility] Body height 152.4 cm 152.4 cm [facility] Systolic blood pressure 144 mm[Hg] 144 mm[Hg] M EDENT ([facility]) L Arm, Sitting [place] body weight 100 [lb_av] 100 [lb_av] MED[facility] [...] [in_i] [facility] 5'0" [place] body weight 100 [lb_av] 100 [lb_av] MED[facility] [...] % [facility] ([facility]) Room Air [place] body weight 100 [lb_av] 100 [lb_av] MED[facility] [...] 81.0 k g/m2 [facility] ([facility]) Systolic blood pressure 120 mm[Hg] 120 mm[Hg] M [facility] ([facility]) L Arm [place] body weight 100 [lb_av] 100 [lb_av] MED[facility] [...] [in_i] [facility] ([facility] 5'0" [place] body weight 100 [lb_av] 100 [lb_av] MED[facility] [...] 52.7 k g/m2 [facility]) [place] body weight 100 [lb_av] 100 [lb_av] [facility] ([facility]) Oxygen saturation in Arterial blood by Pulse oximetry 99 % 99 % [facility]) Body height 152.4 cm 152.4 cm [facility] Systolic blood pressure 148 mm[Hg] 148 mm[Hg] [facility] Diastolic blood pressure 92 mm[Hg] 92 mm[Hg] [facility] Heart rate 80 /min 80 /min [facility] Body temperature 36.67 Phan 36.67 Phan [facility] Respiratory rate 16 /min 16 /min [facility] Oxygen saturation in Arterial blood by Pulse oximetry 100 % 100 % [facility] Body height 154.9 cm 154.9 cm [facility] Body weight 118.389 kg 118.389 kg [facility] Body mass index (BMI) [Ratio] 49.32 kg/m2 49.32 kg/m2 [facility] Body height 60.00 [in_i] 60.00 [in_i] [facility] 5'0" Systolic blood pressure 122 mm[Hg] 122 mm[Hg] M [facility] ([facility]) L Arm Body mass index (BMI) [Ratio] 53.1 kg/m2 [...] 83 /min [facility] [place] body weight 100 [lb_av] 100 [lb_av] [facility] ([facility]) Oxygen saturation in Arterial blood by Pulse oximetry 100 % 100 % [facility]) Room Air Oxygen saturation in Arterial blood by Pulse oximetry 97 % 97 % [facility] ([facility]) Room Air Body mass index (BMI) [Ratio] 52.7 kg/m2 52.7 k g/m2 [facility]) [place] body weight 100 [lb_av] 100 [lb_av] MED[facility] [...] mm[Hg] [facility] ([facility]) L Arm Oxygen saturation [...] 52.7 k g/m2 [facility]) [place] body weight 100 [lb_av] 100 [lb_av] [facility] ([facility]) Systolic blood pressure 144 mm[Hg] 144 mm[Hg] [facility] Diastolic blood pressure 82 mm[Hg] 82 mm[Hg] [facility] Respiratory rate 18 /min 18 /min [facility] Body height 154.9 cm 154.9 cm [facility] Heart rate 80 /min 80 /min [facility] Body weight 118.389 kg 118.389 kg [facility] Body temperature 36.22 Phan 36.22 Phan [facility] Body mass index (BMI) [Ratio] 49.32 kg/m2 49.32 kg/m2 [facility] Oxygen saturation in Arterial blood by Pulse oximetry 99 % 99 % [facility] Systolic blood pressure 126 mm[Hg] 126 mm[Hg] [facility] Diastolic blood pressure 89 mm[Hg] 89 mm[Hg] [facility] Heart rate 83 /min 83 /min [facility] Body temperature 36.89 Phan 36.89 Phan [facility] Respiratory rate 18 /min 18 /min [facility] Body height 154.9 cm 154.9 cm [facility] Body weight 113.853 kg 113.853 kg [facility] Body mass index (BMI) [Ratio] 47.43 kg/m2 47.43 kg/m2 [facility] Oxygen saturation in Arterial blood by Pulse oximetry 100 % 100 % [facility] Systolic blood pressure 131 mm[Hg] 131 mm[Hg] [facility] Diastolic blood pressure 84 mm[Hg] 84 mm[Hg] [facility] Heart rate 99 /min 99 /min [facility] Body temperature 36.89 Phan 36.89 Phan [facility] Respiratory rate 18 /min 18 /min [facility] Body height 154.9 cm 154.9 cm [facility] Body weight 113.853 kg 113.853 kg [facility] Body mass index (BMI) [Ratio] 47.43 kg/m2 47.43 kg/m2 [facility] Oxygen saturation in Arterial blood by Pulse oximetry 98 % 98 % [facility] Systolic blood pressure 137 mm[Hg] Normal (applies t o non-numeric results) 137 mm[Hg] [facility] Respiratory rate 16 min Normal (applies to non-numeric results) 16 min [facility] Body temperature 36.9 phan Normal (applies to non-numeric results) 36.9 phan [facility] Body weight Measured 260 [lb_av] Normal (applies to n on-numeric results) 260 [lb_av] [facility] Diastolic blood pressure 86 mm[Hg] Normal (applies to non-numeric results) 86 mm[Hg] [facility] Body mass index (BMI) [Ratio] 49.1 kg/m2 No rmal (applies to non-numeric results) 49.1 kg/m2 [facility] Heart rate 104 min Normal (applies to non-numeric resul ts) 104 min [facility] Body height 154.8384 cm Normal (applies to non-numeric res ults) 154.8384 cm [facility] Deprecated Oxygen saturation in Capillary blood by Oximetry 98 % Normal (applies to non-numeric results) 98 % [facility] ID Date Data Source [id number] 01/30/2021 02:10:44 PM EST [facility] Name Value Range Interpretation Code Description Data Source(s) WEIGHT RECORDED 118.3 KG 118.3 KG [facility] spital Height 157.48 CM 157.48 CM [facility] status [Interpretation] - Reported [facility] ID Date Data Source [id number] 12/12/2020 02:57:20 PM EDT [facility] Name Value Range Interpretation Code Description Data Source(s) WEIGHT RECORDED 125.25 KG 125.25 KG [facility] Height 154.94 CM 154.94 CM [facility] status [Interpretation] - Reported [facility] ID Date Data Source [id number] 12/19/2020 03:48:35 PM EDT [facility] Name Value Range Interpretation Code Description Data Source(s) WEIGHT RECORDED 118.3 KG 118.3 KG [facility] Height 154.94 CM 154.94 CM [facility] ID Date Data Source [id number] 10/08/2020 07:06:06 PM EDT [facility] Name Value Range Interpretation Code Description Data Source(s) WEIGHT RECORDED 120 KG 120 KG [facility] Height 154.94 CM 154.94 [facility] status [Interpretation] - Reported [facility] ID Date Data Source [id number] 09/21/2020 11:16:52 AM EDT [facility] Name Value Range Interpretation Code Description Data Source(s) Height 154.94 CM 154.94 CM [facility] WEIGHT RECORDED 120 KG 120 KG [facility] ID Date Data Source [id number] 09/17/2020 05:12:07 PM EDT [facility] Name Value Range Interpretation Code Description Data Source(s) WEIGHT RECORDED 123.2 KG 123.2 KG [facility] Height 154.94 CM 154.94 CM [facility] ID Date Data Source [id number] 12/06/2020 08:15:08 PM EDT [facility] Name Value Range Interpretation Code Description Data Source(s) WEIGHT RECORDED 113.85 KG 113.85 KG [facility] Height 154.94 CM 154.94 CM [facility] ID Date Data Source [id number] 07/02/2020 12:38:13 PM EDT [facility] Name Value Range Interpretation Code Description Data Source(s) Chief complaint - Reported KIDNEY STONE PAIN KI DNEY STONE PAIN [facility] Chief complaint - Reported KIDNEY STONE PAIN KI DNEY STONE PAIN [facility] ID Date Data Source [id number] 07/25/2020 04:21:20 PM EDT [facility] Name Value Range Interpretation Code Description Data Source(s) WEIGHT RECORDED 117 KG 117 KG [facility] Height 154.94 CM 154.94 CM [facility] status [Interpretation] - Reported [facility] ID Date Data Source [id number] 06/30/2020 08:42:10 PM EDT [facility] Name Value Range Interpretation Code Description Data Source(s) WEIGHT RECORDED 119 KG 119 KG [facility] Height 154.94 CM 154.94 CM [facility] status [Interpretation] - Reported [facility] ID Date Data Source [id number] 06/20/2020 09:39:13 AM EDT [facility] Name Value Range Interpretation Code Description Data Source(s) WEIGHT RECORDED 120 KG 120 KG [facility] Height 154.94 CM 154.94 CM [facility] ID Date Data Source [id number] 04/10/2020 08:37:10 AM EST [facility] Name Value Range Interpretation Code Description Data Source(s) WEIGHT RECORDED 122 KG 122 KG [facility] Height 154.94 CM 154.94 CM [facility] ID Date Data Source [id number] 03/26/2020 12:14:50 PM EST [facility] Name Value Range Interpretation Code Description Data Source(s) WEIGHT RECORDED 118.63 KG 118.63 KG [facility] Height 154.94 CM 154.94 CM [facility] ID Date Data Source [id number] 03/22/2020 07:12:09 AM EST [facility] Name Value Range Interpretation Code Description Data Source(s) WEIGHT RECORDED 118 KG 118 KG [facility] Height 160.02 CM 160.02 CM [facility] status [Interpretation] - Reported [facility] ID Date Data Source [id number] 04/10/2020 02:09:14 PM EST [facility] Name Value Range Interpretation Code Description Data Source(s) WEIGHT RECORDED 118 KG 118 KG [facility] Height 154.94 CM 154.94 [facility] status [Interpretation] - Reported [facility] ID Date Data Source [id number] 02/03/2020 12:52:54 PM EST [facility] Name Value Range Interpretation Code Description Data Source(s) WEIGHT RECORDED 118 KG 118 KG [facility] Height 154.94 CM 154.94 CM [facility] ID Date Data Source [id number] 02/02/2020 02:24:09 PM EST [facility] Name Value Range Interpretation Code Description Data Source(s) WEIGHT RECORDED 118 KG 118 KG [facility] Height 154.94 CM 154.94 CM [facility] ID Date Data Source [id number] 02/01/2020 06:33:07 AM EST [facility] Name Value Range Interpretation Code Description Data Source(s) WEIGHT RECORDED 118.6 KG 118.6 KG [facility] Height 154.94 CM 154.94 CM [facility] ID Date Data Source [id number] 05/03/2020 09:48:58 AM EST [facility] Name Value Range Interpretation Code Description Data Source(s) WEIGHT RECORDED 128 KG 128 KG [facility] Height 154.94 CM 154.94 [facility] status [Interpretation] - Reported [facility] ID Date Data Source [id number] 02/24/2020 08:28:36 AM EST [facility] Name Value Range Interpretation Code Description Data Source(s) WEIGHT RECORDED 118 KG 118 KG [facility] Height 154.94 CM 154.94 CM [facility] ID Date Data Source [id number] 02/01/2020 06:30:07 AM EST [facility] Name Value Range Interpretation Code Description Data Source(s) WEIGHT RECORDED 118.6 KG 118.6 KG [facility] Height 154.94 CM 154.94 CM [facility] status [Interpretation] - Reported [facility] ID Date Data Source [id number] 08/15/2020 04:21:10 PM EDT [facility] Name Value Range Interpretation Code Description Data Source(s) WEIGHT RECORDED 118.63 KG 118.63 KG [facility] Height 154.94 CM 154.94 [facility] status [Interpretation] - Reported [facility]
[2021-02-02] MEDS ORDERED: ACETAMINOPHEN 500 MG TAB PO ONE (11:05)
[2021-02-02] MEDS ORDERED: CIPR500T39 PO (11:57)
[2021-02-02 12:22] VITALS: BP 157/78
== END 2021-02-02 12:35 | disposition home or self-care (01) ==
LOC: M ED 09:15
DX: N39.0 Urinary tract infection, site not specified (principal); Z87.442 Personal history of urinary calculi; Z88.0 Allergy status to penicillin; Z88.8 Allergy status to other drugs, medicaments and biological substances
CPT/HCPCS: 74176; 80047; 81001; 84702; 85025; 87086; 96374; 96375; 96376; 99284; J2270; J2405

== ENCOUNTER 2021-02-12 08:03 | Emergency (ER) | payer OTHER ==
[~2021-02-12] VITALS: Ht 154.9 cm; Wt 126.7 kg
[~2021-02-12 08:03] MED LIST changes: +CETI-24; -LISI10TA15 PO; +LISI10TA24 PO
[2021-02-12 09:32] LABS: BASO % 0.3 % (0.0-1.0); EOS # 0.1 10^3/uL (0.0-0.5); EOS % 1.3 % (0.0-3.0); HEMATOCRIT 39.5 % (36.0-47.0); HEMOGLOBIN 13.3 g/dl (12.0-15.5); LYMPH # 1.8 10^3/uL (1.5-5.0); LYMPH % 25.7 % (24.0-44.0); MEAN CORPUSCULAR HEMOGLOBIN 31.6 pg (27.0-33.0); MEAN CORPUSCULAR HGB CONC 33.7 g/dl (32.0-36.5); MEAN CORPUSCULAR VOLUME 93.8 fl (80.0-96.0); MONO # 0.4 10^3/uL (0.0-0.8); MONO % 5.3 % (2.0-8.0); NEUTROPHILS # 4.6 10^3/uL (1.5-8.5); NEUTROPHILS % 66.8 % (36.0-66.0); PLATELET COUNT, AUTOMATED 271 10^3/uL (150-450); RED BLOOD COUNT 4.21 10^6/uL (4.00-5.40); WHITE BLOOD COUNT 6.8 10^3/uL (4.0-10.0)
[2021-02-12 09:52] LABS: HCG, SERUM QUALITATIVE NEGATIVE (NEGATIVE)
[2021-02-12 09:53] LABS: ALBUMIN 3.5 GM/DL (3.2-5.2); ALT/SGPT 54 U/L (12-78); BILIRUBIN,DIRECT 0.1 MG/DL (0.0-0.2); BILIRUBIN,TOTAL 0.3 MG/DL (0.2-1.0); BLOOD UREA NITROGEN 18 MG/DL (7-18); CALCIUM LEVEL 9.1 MG/DL (8.5-10.1); CARBON DIOXIDE LEVEL 25 MEQ/L (21-32); CHLORIDE LEVEL 110 MEQ/L (98-107); CREATININE FOR GFR 0.77 MG/DL (0.55-1.30); GLOMERULAR FILTRATION RATE > 60.0 (>60); GLUCOSE, FASTING 124 MG/DL (70-100); LIPASE 114 U/L (73-393); POTASSIUM SERUM 3.8 MEQ/L (3.5-5.1); SODIUM LEVEL 140 MEQ/L (136-145)
[2021-02-12] MEDS ORDERED: traMADol 50 MG TAB PO ONE (12:10)
[2021-02-12 12:20] VITALS: BP 177/94
[2021-02-12] MEDS ORDERED: ULTR50TA8 PO (12:54)
== END 2021-02-12 13:02 | disposition home or self-care (01) ==
LOC: M ED 08:03
DX: R10.9 Unspecified abdominal pain (principal); R31.9 Hematuria, unspecified; Z88.0 Allergy status to penicillin; Z88.8 Allergy status to other drugs, medicaments and biological substances

== ENCOUNTER 2021-02-26 13:32 | Emergency (ER) | payer OTHER ==
[~2021-02-26] VITALS: Ht 154.9 cm; Wt 125.9 kg
[~2021-02-26 13:32] MED LIST changes: +LISI10TA15 PO; -LISI10TA24 PO
[2021-02-26 16:11] LABS: BASO % 0.4 % (0.0-1.0); EOS # 0.1 10^3/uL (0.0-0.5); EOS % 1.3 % (0.0-3.0); HEMOGLOBIN 13.6 g/dl (12.0-15.5); LYMPH # 2.4 10^3/uL (1.5-5.0); LYMPH % 28.5 % (24.0-44.0); MEAN CORPUSCULAR HEMOGLOBIN 31.6 pg (27.0-33.0); MONO # 0.6 10^3/uL (0.0-0.8); NEUTROPHILS # 5.3 10^3/uL (1.5-8.5); NEUTROPHILS % 62.3 % (36.0-66.0); PLATELET COUNT, AUTOMATED 303 10^3/uL (150-450); WHITE BLOOD COUNT 8.5 10^3/uL (4.0-10.0)
[2021-02-26 16:47] LABS: ALBUMIN 3.6 GM/DL (3.2-5.2); ALT/SGPT 60 U/L (12-78); BILIRUBIN,DIRECT < 0.1 MG/DL (0.0-0.2); BILIRUBIN,TOTAL 0.5 MG/DL (0.2-1.0); LIPASE 104 U/L (73-393); TOTAL PROTEIN 7.6 GM/DL (6.4-8.2)
[2021-02-26] MEDS ORDERED: MORPHINE 4 MG/ML 1ML VIAL/SYRINGE (J2270) IV ONE (17:55)
[2021-02-26] MEDS ORDERED: HYDROMORPHONE HCL 0.5 MG/ 0.5 ML SYRINGE (J1170 PER 1) IV ONE (19:05)
[2021-02-26 19:08] LABS: RSV AMPLIFICATION NEGATIVE (NEGATIVE)
--- NOTE | 2021-02-26 19:17 | REPVR ---
PROCEDURE INFORMATION: Exam: CT Abdomen And Pelvis Without Contrast Exam date and time: 02/26/2021 6:03 PM Age: 35 years old Clinical indication: Abdominal pain; Flank; Left; Additional info: L flank pain hematuria TECHNIQUE: Imaging protocol: Computed tomography of the abdomen and pelvis without contrast. Radiation optimization: All CT scans at this facility use at least one of these dose optimization techniques: automated exposure control; mA and/or kV adjustment per patient size (includes targeted exams where dose is matched to clinical indication); or iterative reconstruction. COMPARISON: CT ABD PELVIS W/O CONTRAST 02/02/2021 10:45 AM FINDINGS: Liver: There is fatty infiltration liver with hepatomegaly. Gallbladder and bile ducts: The gallbladder is surgically absent. Pancreas: Normal. No ductal dilation. Spleen: The spleen is upper limits of normal in size. Adrenal glands: Normal. No mass. Kidneys and ureters: There may be a faint 3 mm calculus in the mid zone of the right kidney (series 201, image 71). No hydronephrosis. Stomach and bowel: There is diverticulosis of the left colon most focal in the sigmoid. Appendix: The appendix is surgically absent. Intraperitoneal space: No free air. No significant fluid collection. Vasculature: No abdominal aortic aneurysm. Lymph nodes: No enlarged lymph nodes. Urinary bladder: Unremarkable as visualized. Reproductive: Unremarkable as visualized. Bones/joints: There are some degenerative changes of the spine. Soft tissues: There is a fat containing periumbilical hernia. IMPRESSION: 1. There may be a faint 3 mm calculus in the mid zone of the right kidney. 2. No etiology of left flank pain demonstrated. 3. If in etiology of hematuria is not determined, a hematuria protocol CT scan may be indicated. 4. Hepatic steatosis. 5. Diverticulosis. Electronically signed by: Sameer Oliver On 02/26/2021 19:17:13 PM
[2021-02-26 19:22] VITALS: BP 138/92
== END 2021-02-26 20:15 | disposition left against medical advice (07) ==
LOC: M ED 13:32
DX: R10.9 Unspecified abdominal pain (principal); R31.9 Hematuria, unspecified; Z79.899 Other long term (current) drug therapy; Z79.01 Long term (current) use of anticoagulants; Z87.442 Personal history of urinary calculi; Z86.711 Personal history of pulmonary embolism; Z88.0 Allergy status to penicillin; Z88.8 Allergy status to other drugs, medicaments and biological substances
CPT/HCPCS: 74176; 80047; 80076; 81001; 83690; 84702; 85025; 87086; 87631; 96374; 96375; 99284; J1170; J2270

== ENCOUNTER 2021-02-28 14:52 | Emergency (ER) | payer OTHER ==
[~2021-02-28] VITALS: Ht 154.9 cm; Wt 125.2 kg
[~2021-02-28 14:52] MED LIST changes: -LISI10TA15 PO; +LISI10TA24 PO
[2021-02-28 14:53] VITALS: BP 196/97
[2021-02-28 15:36] LABS: HEMATOCRIT 38.9 % (36.0-47.0); HEMOGLOBIN 13.3 g/dl (12.0-15.5); MEAN CORPUSCULAR HEMOGLOBIN 31.7 pg (27.0-33.0); MEAN CORPUSCULAR HGB CONC 34.2 g/dl (32.0-36.5); MEAN CORPUSCULAR VOLUME 92.6 fl (80.0-96.0); PLATELET COUNT, AUTOMATED 301 10^3/uL (150-450); WHITE BLOOD COUNT 7.7 10^3/uL (4.0-10.0)
[2021-02-28 15:48] LABS: INR 0.91; PROTHROMBIN TIME 12.6 SECONDS (12.7-14.5)
[2021-02-28 16:05] LABS: HCG, SERUM QUALITATIVE NEGATIVE (NEGATIVE)
[2021-02-28] MEDS ORDERED: NS 1,000 ML IV ONE (18:15)
[2021-02-28] MEDS ORDERED: NS IV ONE (19:00)
[2021-02-28] MEDS ORDERED: KETAMINE HCL IV ONE (19:00)
[2021-02-28 20:21] LABS: GC DNA AMPLIFICATION NEGATIVE (NEGATIVE)
== END 2021-02-28 18:42 | disposition left against medical advice (07) ==
LOC: M ED 14:52
DX: N93.9 Abnormal uterine and vaginal bleeding, unspecified (principal); Z87.442 Personal history of urinary calculi; Z86.711 Personal history of pulmonary embolism; Z88.0 Allergy status to penicillin; Z88.8 Allergy status to other drugs, medicaments and biological substances

== ENCOUNTER 2021-03-05 05:13 | Emergency (ER) | payer OTHER ==
[~2021-03-05] VITALS: Ht 154.9 cm; Wt 125.7 kg
[~2021-03-05 05:13] MED LIST changes: +LISI10TA15 PO; -LISI10TA24 PO
[2021-03-05] MEDS ORDERED: LORA-622 PO (05:22)
[2021-03-05] MEDS ORDERED: MORPHINE 4 MG/ML 1ML VIAL/SYRINGE (J2270) IV ONE (08:50)
[2021-03-05] MEDS ORDERED: ONDANSETRON 4MG/2ML VIAL IV ONE (08:50)
--- NOTE | 2021-03-05 09:31 | REPVR ---
PROCEDURE INFORMATION: Exam: CT Abdomen And Pelvis Without Contrast Exam date and time: 03/05/2021 5:34 AM Age: 35 years old Clinical indication: Abdominal pain; Flank; Right; Additional info: Right flank pain, history kidney stones TECHNIQUE: Imaging protocol: Computed tomography of the abdomen and pelvis without contrast. Radiation optimization: All CT scans at this facility use at least one of these dose optimization techniques: automated exposure control; mA and/or kV adjustment per patient size (includes targeted exams where dose is matched to clinical indication); or iterative reconstruction. COMPARISON: CT ABD PELVIS W/O CONTRAST 02/26/2021 6:00 PM FINDINGS: Lungs: Atelectasis or scarring in the right middle lobe and lingula. Liver: Hepatomegaly and steatosis. Gallbladder and bile ducts: Status post cholecystectomy. Pancreas: Normal. No ductal dilation. Spleen: Normal. No splenomegaly. Adrenal glands: Normal. No mass. Kidneys and ureters: Normal. No hydronephrosis. Stomach and bowel: Diverticulosis of colon. No evidence of acute diverticulitis. Appendix: Status post appendectomy. Intraperitoneal space: Unremarkable. No free air. No significant fluid collection. Vasculature: Unremarkable. No abdominal aortic aneurysm. Lymph nodes: Unremarkable. No enlarged lymph nodes. Urinary bladder: Unremarkable as visualized. Reproductive: Unremarkable as visualized. Bones/joints: Unremarkable. No acute fracture. Soft tissues: Fat containing midline epigastric abdominal wall hernia. IMPRESSION: Hepatomegaly and steatosis. Diverticulosis of colon. No evidence of acute diverticulitis. Electronically signed by: Sven Joya On 03/05/2021 09:30:54 AM
[2021-03-05 09:51] LABS: BASO % 0.3 % (0.0-1.0); EOS # 0.1 10^3/uL (0.0-0.5); EOS % 1.4 % (0.0-3.0); HEMATOCRIT 38.6 % (36.0-47.0); HEMOGLOBIN 12.9 g/dl (12.0-15.5); LYMPH # 2.2 10^3/uL (1.5-5.0); MEAN CORPUSCULAR HEMOGLOBIN 31.3 pg (27.0-33.0); MEAN CORPUSCULAR HGB CONC 33.4 g/dl (32.0-36.5); MEAN CORPUSCULAR VOLUME 93.7 fl (80.0-96.0); MONO # 0.5 10^3/uL (0.0-0.8); NEUTROPHILS # 4.4 10^3/uL (1.5-8.5); NEUTROPHILS % 60.6 % (36.0-66.0); PLATELET COUNT, AUTOMATED 293 10^3/uL (150-450); RED BLOOD COUNT 4.12 10^6/uL (4.00-5.40); WHITE BLOOD COUNT 7.3 10^3/uL (4.0-10.0)
[2021-03-05 10:14] LABS: BLOOD UREA NITROGEN 14 MG/DL (7-18); CALCIUM LEVEL 9.4 MG/DL (8.5-10.1); CARBON DIOXIDE LEVEL 27 MEQ/L (21-32); CHLORIDE LEVEL 106 MEQ/L (98-107); CREATININE FOR GFR 0.76 MG/DL (0.55-1.30); GLOMERULAR FILTRATION RATE > 60.0 (>60); GLUCOSE, FASTING 92 MG/DL (70-100); POTASSIUM SERUM 4.1 MEQ/L (3.5-5.1); SODIUM LEVEL 140 MEQ/L (136-145)
[2021-03-05 11:11] VITALS: BP 168/96
== END 2021-03-05 11:12 | disposition home or self-care (01) ==
LOC: M ED 05:13
DX: R10.9 Unspecified abdominal pain (principal); R31.0 Gross hematuria; I10 Essential (primary) hypertension; D64.9 Anemia, unspecified; Z86.711 Personal history of pulmonary embolism; Z87.19 Personal history of other diseases of the digestive system; Z87.442 Personal history of urinary calculi; Z79.899 Other long term (current) drug therapy; Z88.0 Allergy status to penicillin; Z88.8 Allergy status to other drugs, medicaments and biological substances
CPT/HCPCS: 74176; 80048; 81001; 85025; 87086; 96374; 96375; 99284; J2270; J2405

== ENCOUNTER 2021-03-19 08:21 | Emergency (ER) | payer OTHER ==
[~2021-03-19] VITALS: Ht 154.9 cm; Wt 125.0 kg
[~2021-03-19 08:21] MED LIST changes: +LORA-622 PO
[2021-03-19 08:22] VITALS: BP 163/91
[2021-03-19] MEDS ORDERED: NS 1,000 ML IV ONE (08:40)
[2021-03-19] MEDS ORDERED: ACETAMINOPHEN 500 MG TAB PO ONE (08:40)
[2021-03-19 09:21] LABS: BASO % 0.4 % (0.0-1.0); EOS # 0.1 10^3/uL (0.0-0.5); EOS % 1.6 % (0.0-3.0); HEMATOCRIT 41.5 % (36.0-47.0); HEMOGLOBIN 13.8 g/dl (12.0-15.5); LYMPH # 2.1 10^3/uL (1.5-5.0); LYMPH % 29.8 % (24.0-44.0); MEAN CORPUSCULAR HEMOGLOBIN 30.9 pg (27.0-33.0); MEAN CORPUSCULAR HGB CONC 33.3 g/dl (32.0-36.5); MONO # 0.5 10^3/uL (0.0-0.8); MONO % 7.2 % (2.0-8.0); NEUTROPHILS # 4.2 10^3/uL (1.5-8.5); NEUTROPHILS % 60.1 % (36.0-66.0); PLATELET COUNT, AUTOMATED 292 10^3/uL (150-450); RED BLOOD COUNT 4.46 10^6/uL (4.00-5.40)
--- NOTE | 2021-03-19 09:24 | REP ---
INDICATION: R flank pain- hx of stones COMPARISON: CT dated 03/05/2021 TECHNIQUE: Real time garrison scale ultrasound examination using curved array transducer. FINDINGS: Bilateral kidneys are normal in contour, size, echogenicity, and reniform shape. No hydronephrosis, cystic or renal mass lesion. No perinephric fluid collections. Small echogenic foci in the right kidney are noted by technologist but the recent noncontrast abdominal CT dated 03/05/2021 showed no evidence for nephrolithiasis and these findings are nonspecific. Right kidney measures 10.4 x 5.9 x 5.3 cm. Left kidney measures 10.7 x 4.5 x 5.6 cm. IMPRESSION: Cannot exclude few punctate nonobstructing right renal calculi. However these are not identified on recent noncontrast CT dated 03/05/2021 and correlation with physical examination and urinalysis may be warranted. 1. <Electronically signed by Jason Louis > 03/19/21 [id number]
[2021-03-19] MEDS: ONDANSETRON 4MG/2ML VIAL IV ONE ×2 (09:40→09:49)
[2021-03-19] MEDS: MORPHINE 2 MG/ML 1ML VIAL (J2270) IV ONE ×2 (09:50→10:00)
[2021-03-19 09:52] LABS: BLOOD UREA NITROGEN 10 MG/DL (7-18); CALCIUM LEVEL 9.2 MG/DL (8.5-10.1); CARBON DIOXIDE LEVEL 25 MEQ/L (21-32); CHLORIDE LEVEL 108 MEQ/L (98-107); CREATININE FOR GFR 0.71 MG/DL (0.55-1.30); GLOMERULAR FILTRATION RATE > 60.0 (>60); GLUCOSE, FASTING 106 MG/DL (70-100); POTASSIUM SERUM 4.6 MEQ/L (3.5-5.1); SODIUM LEVEL 139 MEQ/L (136-145)
[2021-03-19 10:00] LABS: HCG, SERUM QUALITATIVE NEGATIVE (NEGATIVE)
[2021-03-19] MEDS ORDERED: PERCOCET 5MG/325MG TAB PO ONE (11:00)
== END 2021-03-19 11:08 | disposition left against medical advice (07) ==
LOC: M ED 08:21
DX: N20.0 Calculus of kidney (principal); Z86.711 Personal history of pulmonary embolism; Z88.0 Allergy status to penicillin; Z88.8 Allergy status to other drugs, medicaments and biological substances

== ENCOUNTER 2021-03-30 10:13 | Emergency (ER) | payer OTHER ==
[~2021-03-30] VITALS: Ht 154.9 cm; Wt 126.0 kg
[~2021-03-30 10:13] MED LIST changes: -LISI10TA15 PO; +LISI10TA24 PO
[2021-03-30] MEDS ORDERED: WARF-58 PO (10:32)
[2021-03-30] MEDS ORDERED: TAMS1CAP17 PO (10:32)
[2021-03-30] MEDS ORDERED: MORPHINE 4 MG/ML 1ML VIAL/SYRINGE (J2270) IV PRN (11:05)
[2021-03-30] MEDS ORDERED: ONDANSETRON 4MG/2ML VIAL IV ONE (11:05)
[2021-03-30] MEDS ORDERED: NS 1,000 ML IV ONE (11:05)
[2021-03-30 11:26] LABS: BASO % 0.4 % (0.0-1.0); EOS # 0.1 10^3/uL (0.0-0.5); EOS % 1.6 % (0.0-3.0); HEMATOCRIT 41.9 % (36.0-47.0); HEMOGLOBIN 13.9 g/dl (12.0-15.5); LYMPH # 2.1 10^3/uL (1.5-5.0); LYMPH % 29.3 % (24.0-44.0); MEAN CORPUSCULAR HEMOGLOBIN 30.7 pg (27.0-33.0); MEAN CORPUSCULAR HGB CONC 33.2 g/dl (32.0-36.5); MEAN CORPUSCULAR VOLUME 92.5 fl (80.0-96.0); MONO # 0.5 10^3/uL (0.0-0.8); MONO % 7.1 % (2.0-8.0); NEUTROPHILS # 4.5 10^3/uL (1.5-8.5); NEUTROPHILS % 61.2 % (36.0-66.0); PLATELET COUNT, AUTOMATED 317 10^3/uL (150-450); RED BLOOD COUNT 4.53 10^6/uL (4.00-5.40); WHITE BLOOD COUNT 7.3 10^3/uL (4.0-10.0)
[2021-03-30] MEDS ORDERED: HYDROMORPHONE HCL 0.5 MG/ 0.5 ML SYRINGE (J1170 PER 1) IV PRN (12:35)
[2021-03-30 12:51] LABS: ALBUMIN 3.7 GM/DL (3.2-5.2); ALT/SGPT 73 U/L (12-78); AMYLASE 39 U/L (25-115); BILIRUBIN,DIRECT 0.1 MG/DL (0.0-0.2); BILIRUBIN,TOTAL 0.3 MG/DL (0.2-1.0); BLOOD UREA NITROGEN 11 MG/DL (7-18); CALCIUM LEVEL 9.4 MG/DL (8.5-10.1); CARBON DIOXIDE LEVEL 27 MEQ/L (21-32); CHLORIDE LEVEL 106 MEQ/L (98-107); CREATININE FOR GFR 0.88 MG/DL (0.55-1.30); GLOMERULAR FILTRATION RATE > 60.0 (>60); GLUCOSE, FASTING 123 MG/DL (70-100); LIPASE 91 U/L (73-393); SODIUM LEVEL 139 MEQ/L (136-145); TOTAL PROTEIN 7.4 GM/DL (6.4-8.2)
[2021-03-30] MEDS ORDERED: PERC5TAB12 PO (13:10)
[2021-03-30 13:29] VITALS: BP 138/82
== END 2021-03-30 13:31 | disposition home or self-care (01) ==
LOC: M ED 10:13
DX: N23 Unspecified renal colic (principal); R79.9 Abnormal finding of blood chemistry, unspecified; I10 Essential (primary) hypertension; Z87.442 Personal history of urinary calculi; Z86.711 Personal history of pulmonary embolism; K76.0 Fatty (change of) liver, not elsewhere classified; D64.9 Anemia, unspecified; F41.9 Anxiety disorder, unspecified; Z88.0 Allergy status to penicillin; Z88.6 Allergy status to analgesic agent; Z79.899 Other long term (current) drug therapy; Z79.01 Long term (current) use of anticoagulants
CPT/HCPCS: 80047; 80048; 80076; 81001; 82150; 83690; 85025; 87086; 96361; 96374; 96375; 99284; J1170; J2270; J2405

== ENCOUNTER 2021-04-02 11:58 | Emergency (ER) | payer OTHER ==
[~2021-04-02] VITALS: Ht 152.4 cm; Wt 125.3 kg
[~2021-04-02 11:58] MED LIST changes: +TAMS1CAP17 PO; +WARF-58 PO
[2021-04-02 12:03] VITALS: BP 172/103
[2021-04-02] MEDS ORDERED: MORPHINE 10 MG/ML 1ML VIAL (J2270) IM ONE (16:45)
[2021-04-02 18:14] LABS: BASO % 0.4 % (0.0-1.0); EOS # 0.1 10^3/uL (0.0-0.5); EOS % 1.3 % (0.0-3.0); HEMATOCRIT 39.8 % (36.0-47.0); HEMOGLOBIN 13.4 g/dl (12.0-15.5); LYMPH # 2.4 10^3/uL (1.5-5.0); LYMPH % 30.3 % (24.0-44.0); MEAN CORPUSCULAR HEMOGLOBIN 31.2 pg (27.0-33.0); MEAN CORPUSCULAR HGB CONC 33.7 g/dl (32.0-36.5); MEAN CORPUSCULAR VOLUME 92.6 fl (80.0-96.0); MONO # 0.5 10^3/uL (0.0-0.8); MONO % 6.8 % (2.0-8.0); NEUTROPHILS # 4.8 10^3/uL (1.5-8.5); NEUTROPHILS % 60.6 % (36.0-66.0); PLATELET COUNT, AUTOMATED 318 10^3/uL (150-450)
[2021-04-02 18:32] LABS: BLOOD UREA NITROGEN 10 MG/DL (7-18); CALCIUM LEVEL 9.2 MG/DL (8.5-10.1); CARBON DIOXIDE LEVEL 24 MEQ/L (21-32); CHLORIDE LEVEL 107 MEQ/L (98-107); CREATININE FOR GFR 0.78 MG/DL (0.55-1.30); GLOMERULAR FILTRATION RATE > 60.0 (>60); GLUCOSE, FASTING 99 MG/DL (70-100); POTASSIUM SERUM 3.9 MEQ/L (3.5-5.1); SODIUM LEVEL 139 MEQ/L (136-145)
== END 2021-04-02 18:55 | disposition home or self-care (01) ==
LOC: M ED 11:58
DX: R10.9 Unspecified abdominal pain (principal); M54.50 Low back pain, unspecified; R16.0 Hepatomegaly, not elsewhere classified; I10 Essential (primary) hypertension; J45.909 Unspecified asthma, uncomplicated; K76.0 Fatty (change of) liver, not elsewhere classified; Z90.49 Acquired absence of other specified parts of digestive tract; Z87.442 Personal history of urinary calculi; Z88.0 Allergy status to penicillin; Z88.6 Allergy status to analgesic agent; Z79.899 Other long term (current) drug therapy; Z79.01 Long term (current) use of anticoagulants
CPT/HCPCS: 36415; 74176; 80048; 81001; 85025; 96372; 99282; J2270

== ENCOUNTER 2021-04-17 13:23 | Emergency (ER) | payer OTHER ==
[~2021-04-17] VITALS: Ht 154.9 cm; Wt 125.2 kg
[2021-04-17 13:23] VITALS: BP 132/87
[2021-04-17] MEDS ORDERED: ACETAMINOPHEN 500 MG TAB PO ONE (13:50)
[2021-04-17 14:17] LABS: BASO % 0.3 % (0.0-1.0); EOS # 0.1 10^3/uL (0.0-0.5); EOS % 1.1 % (0.0-3.0); HEMATOCRIT 39.4 % (36.0-47.0); HEMOGLOBIN 13.3 g/dl (12.0-15.5); LYMPH # 2.3 10^3/uL (1.5-5.0); LYMPH % 23.1 % (24.0-44.0); MEAN CORPUSCULAR HEMOGLOBIN 30.9 pg (27.0-33.0); MEAN CORPUSCULAR HGB CONC 33.8 g/dl (32.0-36.5); MEAN CORPUSCULAR VOLUME 91.4 fl (80.0-96.0); MONO # 0.6 10^3/uL (0.0-0.8); MONO % 6.1 % (2.0-8.0); NEUTROPHILS # 6.9 10^3/uL (1.5-8.5); NEUTROPHILS % 68.8 % (36.0-66.0); PLATELET COUNT, AUTOMATED 288 10^3/uL (150-450); RED BLOOD COUNT 4.31 10^6/uL (4.00-5.40)
[2021-04-17 14:50] LABS: ALBUMIN 3.6 GM/DL (3.2-5.2); ALT/SGPT 52 U/L (12-78); BILIRUBIN,TOTAL 0.3 MG/DL (0.2-1.0); BLOOD UREA NITROGEN 15 MG/DL (7-18); CALCIUM LEVEL 8.9 MG/DL (8.5-10.1); CARBON DIOXIDE LEVEL 25 MEQ/L (21-32); CHLORIDE LEVEL 108 MEQ/L (98-107); CREATININE FOR GFR 0.73 MG/DL (0.55-1.30); GLOMERULAR FILTRATION RATE > 60.0 (>60); GLUCOSE, FASTING 101 MG/DL (70-100); SODIUM LEVEL 139 MEQ/L (136-145); TOTAL PROTEIN 7.1 GM/DL (6.4-8.2)
== END 2021-04-17 16:00 | disposition home or self-care (01) ==
LOC: M ED 13:23
DX: R10.9 Unspecified abdominal pain (principal); R31.9 Hematuria, unspecified; Z87.442 Personal history of urinary calculi; Z88.0 Allergy status to penicillin; Z88.6 Allergy status to analgesic agent; Z79.899 Other long term (current) drug therapy; Z79.01 Long term (current) use of anticoagulants

== ENCOUNTER 2021-05-07 08:31 | Emergency (ER) | payer OTHER ==
[~2021-05-07] VITALS: Ht 154.9 cm; Wt 125.9 kg
[2021-05-07] MEDS ORDERED: ACETAMINOPHEN TAB 650MG DOSE (2X325MG) PO ONE (11:35)
[2021-05-07] MEDS ORDERED: traMADol 50 MG TAB PO ONE (11:35)
[2021-05-07 11:54] LABS: BASO % 0.5 % (0.0-1.0); EOS # 0.1 10^3/uL (0.0-0.5); EOS % 0.7 % (0.0-3.0); HEMATOCRIT 39.7 % (36.0-47.0); HEMOGLOBIN 13.2 g/dl (12.0-15.5); LYMPH # 1.9 10^3/uL (1.5-5.0); LYMPH % 23.9 % (24.0-44.0); MEAN CORPUSCULAR HEMOGLOBIN 30.8 pg (27.0-33.0); MEAN CORPUSCULAR HGB CONC 33.2 g/dl (32.0-36.5); MEAN CORPUSCULAR VOLUME 92.5 fl (80.0-96.0); MONO # 0.6 10^3/uL (0.0-0.8); MONO % 6.8 % (2.0-8.0); NEUTROPHILS # 5.5 10^3/uL (1.5-8.5); NEUTROPHILS % 67.5 % (36.0-66.0); PLATELET COUNT, AUTOMATED 303 10^3/uL (150-450); RED BLOOD COUNT 4.29 10^6/uL (4.00-5.40); WHITE BLOOD COUNT 8.1 10^3/uL (4.0-10.0)
[2021-05-07 12:09] LABS: INR 1.36; PROTHROMBIN TIME 17.2 SECONDS (12.7-14.5)
[2021-05-07 12:16] LABS: BLOOD UREA NITROGEN 14 MG/DL (7-18); CALCIUM LEVEL 8.9 MG/DL (8.5-10.1); CARBON DIOXIDE LEVEL 25 MEQ/L (21-32); CHLORIDE LEVEL 109 MEQ/L (98-107); CREATININE FOR GFR 0.73 MG/DL (0.55-1.30); GLOMERULAR FILTRATION RATE > 60.0 (>60); GLUCOSE, FASTING 87 MG/DL (70-100); POTASSIUM SERUM 4.2 MEQ/L (3.5-5.1); SODIUM LEVEL 139 MEQ/L (136-145)
[2021-05-07 13:14] VITALS: BP 140/85
== END 2021-05-07 13:18 | disposition home or self-care (01) ==
LOC: M ED 08:31
DX: R10.9 Unspecified abdominal pain (principal); R31.9 Hematuria, unspecified; Z88.0 Allergy status to penicillin; Z88.6 Allergy status to analgesic agent; Z79.01 Long term (current) use of anticoagulants

== ENCOUNTER 2021-05-11 11:08 | Emergency (ER) | payer OTHER ==
[~2021-05-11] VITALS: Ht 154.9 cm; Wt 126.9 kg
[2021-05-11] MEDS ORDERED: CIPR250T3 PO (11:25)
[2021-05-11] MEDS ORDERED: WARF-23 (11:25)
[2021-05-11 11:52] VITALS: BP 136/92
[2021-05-11] MEDS ORDERED: ONDANSETRON 4MG/2ML VIAL IV ONE (12:00)
[2021-05-11] MEDS ORDERED: MORPHINE 4 MG/ML 1ML VIAL/SYRINGE (J2270) IV ONE (12:00)
[2021-05-11] MEDS ORDERED: NS 1,000 ML IV ONE (12:00)
[2021-05-11 12:34] LABS: BASO % 0.4 % (0.0-1.0); EOS # 0.1 10^3/uL (0.0-0.5); EOS % 1.2 % (0.0-3.0); HEMATOCRIT 37.4 % (36.0-47.0); HEMOGLOBIN 12.5 g/dl (12.0-15.5); LYMPH # 2.1 10^3/uL (1.5-5.0); LYMPH % 28.5 % (24.0-44.0); MEAN CORPUSCULAR HEMOGLOBIN 30.6 pg (27.0-33.0); MEAN CORPUSCULAR HGB CONC 33.4 g/dl (32.0-36.5); MEAN CORPUSCULAR VOLUME 91.4 fl (80.0-96.0); MONO # 0.5 10^3/uL (0.0-0.8); MONO % 6.4 % (2.0-8.0); NEUTROPHILS # 4.7 10^3/uL (1.5-8.5); NEUTROPHILS % 62.8 % (36.0-66.0); PLATELET COUNT, AUTOMATED 258 10^3/uL (150-450); RED BLOOD COUNT 4.09 10^6/uL (4.00-5.40); WHITE BLOOD COUNT 7.5 10^3/uL (4.0-10.0)
[2021-05-11 12:45] LABS: INR 1.31; PROTHROMBIN TIME 16.7 SECONDS (12.7-14.5)
[2021-05-11 12:46] LABS: PARTIAL THROMBOPLASTIN TIME 30.9 SECONDS (25.9-37.0)
[2021-05-11 13:05] LABS: ALBUMIN 3.3 GM/DL (3.2-5.2); ALT/SGPT 57 U/L (12-78); BILIRUBIN,DIRECT < 0.1 MG/DL (0.0-0.2); BILIRUBIN,TOTAL 0.2 MG/DL (0.2-1.0); BLOOD UREA NITROGEN 14 MG/DL (7-18); CALCIUM LEVEL 8.7 MG/DL (8.5-10.1); CARBON DIOXIDE LEVEL 25 MEQ/L (21-32); CHLORIDE LEVEL 107 MEQ/L (98-107); CREATININE FOR GFR 0.87 MG/DL (0.55-1.30); GLOMERULAR FILTRATION RATE > 60.0 (>60); GLUCOSE, FASTING 101 MG/DL (70-100); LIPASE 111 U/L (73-393); POTASSIUM SERUM 4.1 MEQ/L (3.5-5.1); SODIUM LEVEL 138 MEQ/L (136-145); TOTAL PROTEIN 6.7 GM/DL (6.4-8.2)
[2021-05-11 13:15] LABS: BILIRUBIN, URINE MANUAL NEGATIVE (NEGATIVE); GLUCOSE, URINE (UA) MANUAL NEGATIVE (NEGATIVE); KETONE, URINE MANUAL NEGATIVE (NEGATIVE); UROBILINOGEN, URINE MANUAL NORMAL (NORMAL)
[2021-05-11 13:20] LABS: BACTERIA, URINE SMALL AMOUNT; HYALINE CAST, URINE NONE SEEN /lpf (0-1); SQUAMOUS EPITHELIAL CELL URINE SMALL AMOUNT /hpf (SMALL AMT)
== END 2021-05-11 13:58 | disposition home or self-care (01) ==
LOC: M ED 11:08
DX: N39.0 Urinary tract infection, site not specified (principal); R10.9 Unspecified abdominal pain; K76.0 Fatty (change of) liver, not elsewhere classified; I10 Essential (primary) hypertension; Z86.711 Personal history of pulmonary embolism; Z87.442 Personal history of urinary calculi; D64.9 Anemia, unspecified; Z88.0 Allergy status to penicillin; Z88.6 Allergy status to analgesic agent; Z79.899 Other long term (current) drug therapy; Z79.01 Long term (current) use of anticoagulants; Z90.49 Acquired absence of other specified parts of digestive tract; Z90.89 Acquired absence of other organs
CPT/HCPCS: 74176; 80048; 80076; 81000; 81015; 83690; 84702; 85025; 85610; 85730; 87040; 87086; 93041; 96361; 96374; 96375; 99284; J2270; J2405

== ENCOUNTER 2021-06-01 06:39 | Emergency (ER) | payer OTHER ==
[~2021-06-01] VITALS: Ht 154.9 cm; Wt 125.7 kg
[~2021-06-01 06:39] MED LIST changes: +CIPR250T3 PO; -FEXO60CA; +FEXO60TA99; +WARF-23
[2021-06-01] MEDS ORDERED: CLAR10CA3 PO (06:52)
[2021-06-01] MEDS ORDERED: ACET-910 PO (06:52)
[2021-06-01] MEDS ORDERED: NS 1,000 ML IV ONE (07:50)
[2021-06-01] MEDS ORDERED: ONDANSETRON 4MG/2ML VIAL IV ONE (07:50)
[2021-06-01] MEDS ORDERED: MORPHINE 4 MG/ML 1ML VIAL/SYRINGE (J2270) IV ONE (07:50)
[2021-06-01 08:15] LABS: BASO % 0.3 % (0.0-1.0); EOS # 0.1 10^3/uL (0.0-0.5); EOS % 1.4 % (0.0-3.0); HEMATOCRIT 37.1 % (36.0-47.0); HEMOGLOBIN 12.2 g/dl (12.0-15.5); LYMPH # 1.8 10^3/uL (1.5-5.0); MEAN CORPUSCULAR HEMOGLOBIN 30.7 pg (27.0-33.0); MEAN CORPUSCULAR HGB CONC 32.9 g/dl (32.0-36.5); MEAN CORPUSCULAR VOLUME 93.2 fl (80.0-96.0); MONO # 0.6 10^3/uL (0.0-0.8); MONO % 8.1 % (2.0-8.0); NEUTROPHILS # 5.2 10^3/uL (1.5-8.5); NEUTROPHILS % 66.6 % (36.0-66.0); PLATELET COUNT, AUTOMATED 267 10^3/uL (150-450); RED BLOOD COUNT 3.98 10^6/uL (4.00-5.40); WHITE BLOOD COUNT 7.8 10^3/uL (4.0-10.0)
[2021-06-01 08:37] LABS: ALBUMIN 3.5 GM/DL (3.2-5.2); ALT/SGPT 64 U/L (12-78); BILIRUBIN,TOTAL 0.3 MG/DL (0.2-1.0); BLOOD UREA NITROGEN 15 MG/DL (7-18); CALCIUM LEVEL 8.8 MG/DL (8.5-10.1); CARBON DIOXIDE LEVEL 26 MEQ/L (21-32); CHLORIDE LEVEL 109 MEQ/L (98-107); CREATININE FOR GFR 0.66 MG/DL (0.55-1.30); GLOMERULAR FILTRATION RATE > 60.0 (>60); GLUCOSE, FASTING 99 MG/DL (70-100); LIPASE 116 U/L (73-393); POTASSIUM SERUM 4.1 MEQ/L (3.5-5.1); SODIUM LEVEL 140 MEQ/L (136-145); TOTAL PROTEIN 7.1 GM/DL (6.4-8.2)
[2021-06-01 08:45] VITALS: BP 141/80
[2021-06-01] MEDS ORDERED: cefTRIAXone SOD 1 GM in D5W MINI-BAG PLUS 50 ML IV ONE (09:05)
[2021-06-01] MEDS ORDERED: PYRI1TAB5 PO (09:08)
[2021-06-01] MEDS ORDERED: ONDA4TAB6 PO (09:08)
[2021-06-01] MEDS ORDERED: CIPR-249 PO (09:08)
== END 2021-06-01 10:07 | disposition home or self-care (01) ==
LOC: M ED 06:39
DX: N10 Acute pyelonephritis (principal); I10 Essential (primary) hypertension; K76.0 Fatty (change of) liver, not elsewhere classified; Z86.711 Personal history of pulmonary embolism; Z87.442 Personal history of urinary calculi; Z88.0 Allergy status to penicillin; Z88.6 Allergy status to analgesic agent; Z79.899 Other long term (current) drug therapy
CPT/HCPCS: 74176; 80053; 81001; 83690; 84702; 85025; 87086; 96361; 96365; 96375; 99284; J0696; J2270; J2405

== ENCOUNTER 2021-07-02 13:24 | Emergency (ER) | payer OTHER ==
[~2021-07-02] VITALS: Ht 154.9 cm; Wt 124.1 kg
[2021-07-02 13:24] VITALS: BP 171/95
[~2021-07-02 13:24] MED LIST changes: +ACET-910 PO; +BUPR-71 PO; -BUPR150T5 PO; +CLAR10CA3 PO; -METR-135 PO; +METR-369 PO
[2021-07-02] MEDS ORDERED: HYDR-4571 (13:37)
[2021-07-02] MEDS ORDERED: BACTDSTA (13:37)
[2021-07-02 14:38] LABS: GLUCOSE, URINE (UA) MANUAL NEGATIVE (NEGATIVE); KETONE, URINE MANUAL OBSCURED mg/dL (NEGATIVE)
[2021-07-02 14:39] LABS: BILIRUBIN, URINE MANUAL OBSCURED (NEGATIVE); UROBILINOGEN, URINE MANUAL OBSCURED mg/dl (NORMAL)
[2021-07-02 14:46] LABS: MUCUS, URINE SMALL AMOUNT (NEGATIVE); RBC, URINE TNTC /hpf (0-3)
[2021-07-02 14:48] LABS: BACTERIA, URINE NONE SEEN; HYALINE CAST, URINE NONE SEEN /lpf (0-1); SQUAMOUS EPITHELIAL CELL URINE SMALL AMOUNT /hpf (SMALL AMT)
[2021-07-02 16:11] LABS: BASO % 0.3 % (0.0-1.0); EOS # 0.1 10^3/uL (0.0-0.5); EOS % 1.3 % (0.0-3.0); HEMATOCRIT 38.6 % (36.0-47.0); HEMOGLOBIN 12.9 g/dl (12.0-15.5); LYMPH # 2.2 10^3/uL (1.5-5.0); LYMPH % 31.6 % (24.0-44.0); MEAN CORPUSCULAR HEMOGLOBIN 31.1 pg (27.0-33.0); MEAN CORPUSCULAR HGB CONC 33.4 g/dl (32.0-36.5); MONO # 0.5 10^3/uL (0.0-0.8); MONO % 6.5 % (2.0-8.0); NEUTROPHILS # 4.2 10^3/uL (1.5-8.5); NEUTROPHILS % 59.6 % (36.0-66.0); PLATELET COUNT, AUTOMATED 301 10^3/uL (150-450); RED BLOOD COUNT 4.15 10^6/uL (4.00-5.40)
[2021-07-02] MEDS ORDERED: ACETAMINOPHEN 500 MG TAB PO ONE (16:55)
== END 2021-07-02 17:04 | disposition left against medical advice (07) ==
LOC: M ED 13:24
DX: R10.9 Unspecified abdominal pain (principal); M54.50 Low back pain, unspecified; Z53.9 Procedure and treatment not carried out, unspecified reason; Z86.711 Personal history of pulmonary embolism; Z87.442 Personal history of urinary calculi; Z88.0 Allergy status to penicillin; Z88.6 Allergy status to analgesic agent; Z79.899 Other long term (current) drug therapy; Z79.01 Long term (current) use of anticoagulants

== ENCOUNTER 2021-07-24 10:08 | Emergency (ER) | payer OTHER ==
[~2021-07-24] VITALS: Ht 154.9 cm; Wt 118.6 kg
[2021-07-24] MEDS ORDERED: METH-1165 (10:18)
[2021-07-24] MEDS ORDERED: CETI-24 (10:18)
[2021-07-24 11:32] LABS: BASO % 0.3 % (0.0-1.0); EOS # 0.1 10^3/uL (0.0-0.5); EOS % 1.1 % (0.0-3.0); HEMATOCRIT 38.1 % (36.0-47.0); HEMOGLOBIN 12.5 g/dl (12.0-15.5); LYMPH # 2.9 10^3/uL (1.5-5.0); LYMPH % 32.4 % (24.0-44.0); MEAN CORPUSCULAR HEMOGLOBIN 30.6 pg (27.0-33.0); MEAN CORPUSCULAR HGB CONC 32.8 g/dl (32.0-36.5); MEAN CORPUSCULAR VOLUME 93.2 fl (80.0-96.0); MONO # 0.6 10^3/uL (0.0-0.8); MONO % 6.8 % (2.0-8.0); NEUTROPHILS # 5.2 10^3/uL (1.5-8.5); NEUTROPHILS % 58.7 % (36.0-66.0); PLATELET COUNT, AUTOMATED 309 10^3/uL (150-450); RED BLOOD COUNT 4.09 10^6/uL (4.00-5.40); WHITE BLOOD COUNT 8.9 10^3/uL (4.0-10.0)
[2021-07-24] MEDS: ACETAMINOPHEN 325 MG TAB PO ONE ×2 (11:55→12:02)
[2021-07-24] MEDS ORDERED: NS 1,000 ML IV ONE (11:55)
[2021-07-24 12:50] VITALS: BP 136/88
[2021-07-24 12:55] LABS: ALBUMIN 3.6 GM/DL (3.2-5.2); ALT/SGPT 56 U/L (12-78); BILIRUBIN,DIRECT < 0.1 MG/DL (0.0-0.2); BILIRUBIN,TOTAL 0.3 MG/DL (0.2-1.0); LIPASE 173 U/L (73-393); TOTAL PROTEIN 7.3 GM/DL (6.4-8.2)
== END 2021-07-24 13:17 | disposition home or self-care (01) ==
LOC: M ED 10:08
DX: R31.9 Hematuria, unspecified (principal); R10.9 Unspecified abdominal pain; Z87.442 Personal history of urinary calculi; Z86.711 Personal history of pulmonary embolism; Z88.0 Allergy status to penicillin; Z88.6 Allergy status to analgesic agent; Z79.01 Long term (current) use of anticoagulants; Z79.899 Other long term (current) drug therapy

== ENCOUNTER 2021-08-31 12:22 | Emergency (ER) | payer OTHER ==
[~2021-08-31] VITALS: Ht 154.9 cm; Wt 146.6 kg
[~2021-08-31 12:22] MED LIST changes: +ALBU2.5V10; +ALBU2.5V10 NEB; -ALBU83IN; -ALBU83IN NEB; +METH-1165
[2021-08-31] MEDS ORDERED: CEPH500C (12:38)
[2021-08-31] MEDS ORDERED: CHLO500TA (12:38)
[2021-08-31] MEDS ORDERED: NS 1,000 ML IV ONE (13:05)
[2021-08-31] MEDS ORDERED: HYDROMORPHONE HCL 0.5 MG/ 0.5 ML SYRINGE (J1170 PER 1) IV PRN (13:05)
[2021-08-31] MEDS ORDERED: ONDANSETRON 4MG/2ML VIAL IV ONE (13:05)
[2021-08-31 13:48] LABS: BASO % 0.4 % (0.0-1.0); EOS # 0.1 10^3/uL (0.0-0.5); EOS % 1.1 % (0.0-3.0); HEMATOCRIT 37.2 % (36.0-47.0); HEMOGLOBIN 12.3 g/dl (12.0-15.5); LYMPH # 2.5 10^3/uL (1.5-5.0); LYMPH % 30.9 % (24.0-44.0); MEAN CORPUSCULAR HEMOGLOBIN 30.5 pg (27.0-33.0); MEAN CORPUSCULAR HGB CONC 33.1 g/dl (32.0-36.5); MEAN CORPUSCULAR VOLUME 92.3 fl (80.0-96.0); MONO # 0.6 10^3/uL (0.0-0.8); NEUTROPHILS # 4.7 10^3/uL (1.5-8.5); NEUTROPHILS % 59.2 % (36.0-66.0); PLATELET COUNT, AUTOMATED 255 10^3/uL (150-450); RED BLOOD COUNT 4.03 10^6/uL (4.00-5.40)
[2021-08-31 14:24] LABS: ALBUMIN 3.2 GM/DL (3.2-5.2); ALT/SGPT 65 U/L (12-78); AMYLASE 42 U/L (25-115); BILIRUBIN,DIRECT < 0.1 MG/DL (0.0-0.2); BILIRUBIN,TOTAL 0.3 MG/DL (0.2-1.0); LIPASE 106 U/L (73-393); TOTAL PROTEIN 6.4 GM/DL (6.4-8.2)
[2021-08-31 14:26] VITALS: BP 125/75
[2021-08-31] MEDS ORDERED: DILA2TAB6 PO (14:53)
== END 2021-08-31 15:05 | disposition home or self-care (01) ==
LOC: M ED 12:22
DX: R10.9 Unspecified abdominal pain (principal); R30.0 Dysuria; R31.9 Hematuria, unspecified; K76.0 Fatty (change of) liver, not elsewhere classified; R16.0 Hepatomegaly, not elsewhere classified; R79.9 Abnormal finding of blood chemistry, unspecified; K57.30 Diverticulosis of large intestine without perforation or abscess without bleeding; Z87.442 Personal history of urinary calculi; I10 Essential (primary) hypertension; J45.909 Unspecified asthma, uncomplicated; Z86.711 Personal history of pulmonary embolism; D50.9 Iron deficiency anemia, unspecified; Z88.0 Allergy status to penicillin; Z88.6 Allergy status to analgesic agent; Z79.899 Other long term (current) drug therapy; Z90.49 Acquired absence of other specified parts of digestive tract; Z90.89 Acquired absence of other organs
CPT/HCPCS: 74176; 80047; 80076; 81001; 82150; 83690; 84702; 85025; 87086; 96361; 96374; 96375; 99284; J1170; J2405

== ENCOUNTER 2021-10-03 14:19 | Emergency (ER) | payer OTHER ==
[~2021-10-03] VITALS: Ht 154.9 cm; Wt 124.0 kg
[~2021-10-03 14:19] MED LIST changes: +CEPH500C; +CHLO500TA; +DILA2TAB6 PO
[2021-10-03 14:21] VITALS: BP 144/91
[2021-10-03 15:29] LABS: BASO % 0.4 % (0.0-1.0); EOS # 0.1 10^3/uL (0.0-0.5); EOS % 0.9 % (0.0-3.0); HEMATOCRIT 40.5 % (36.0-47.0); HEMOGLOBIN 13.8 g/dl (12.0-15.5); LYMPH # 2.3 10^3/uL (1.5-5.0); LYMPH % 27.2 % (24.0-44.0); MEAN CORPUSCULAR HEMOGLOBIN 31.4 pg (27.0-33.0); MEAN CORPUSCULAR HGB CONC 34.1 g/dl (32.0-36.5); MEAN CORPUSCULAR VOLUME 92.3 fl (80.0-96.0); MONO # 0.6 10^3/uL (0.0-0.8); MONO % 7.2 % (2.0-8.0); NEUTROPHILS # 5.4 10^3/uL (1.5-8.5); NEUTROPHILS % 63.7 % (36.0-66.0); PLATELET COUNT, AUTOMATED 308 10^3/uL (150-450); RED BLOOD COUNT 4.39 10^6/uL (4.00-5.40); WHITE BLOOD COUNT 8.4 10^3/uL (4.0-10.0)
[2021-10-03 16:01] LABS: ALBUMIN 3.7 GM/DL (3.2-5.2); ALT/SGPT 74 U/L (12-78); BILIRUBIN,DIRECT < 0.1 MG/DL (0.0-0.2); BILIRUBIN,TOTAL 0.5 MG/DL (0.2-1.0); BLOOD UREA NITROGEN 13 MG/DL (7-18); CALCIUM LEVEL 9.2 MG/DL (8.5-10.1); CARBON DIOXIDE LEVEL 22 MEQ/L (21-32); CHLORIDE LEVEL 110 MEQ/L (98-107); CREATININE FOR GFR 0.78 MG/DL (0.55-1.30); GLOMERULAR FILTRATION RATE > 60.0 (>60); GLUCOSE, FASTING 127 MG/DL (70-100); LIPASE 135 U/L (73-393); POTASSIUM SERUM 4.1 MEQ/L (3.5-5.1); SODIUM LEVEL 140 MEQ/L (136-145); TOTAL PROTEIN 7.3 GM/DL (6.4-8.2)
[2021-10-03 16:10] LABS: HCG, SERUM QUALITATIVE NEGATIVE (NEGATIVE)
== END 2021-10-03 18:25 | disposition home or self-care (01) ==
LOC: M ED 14:19
DX: R10.9 Unspecified abdominal pain (principal); Z53.9 Procedure and treatment not carried out, unspecified reason; I10 Essential (primary) hypertension; D64.9 Anemia, unspecified; J45.909 Unspecified asthma, uncomplicated; K76.0 Fatty (change of) liver, not elsewhere classified; Z87.442 Personal history of urinary calculi; F41.9 Anxiety disorder, unspecified; Z79.01 Long term (current) use of anticoagulants; Z79.899 Other long term (current) drug therapy

== ENCOUNTER 2021-12-23 16:35 | Emergency (ER) | payer OTHER ==
[~2021-12-23] VITALS: Ht 154.9 cm; Wt 118.6 kg
[2021-12-23] MEDS ORDERED: FLOM0.4C39 PO (17:16)
[2021-12-23 17:44] LABS: BASO % 0.4 % (0.0-1.0); EOS # 0.1 10^3/uL (0.0-0.5); EOS % 1.4 % (0.0-3.0); HEMATOCRIT 42.5 % (36.0-47.0); HEMOGLOBIN 14.3 g/dl (12.0-15.5); LYMPH # 2.5 10^3/uL (1.5-5.0); MEAN CORPUSCULAR HEMOGLOBIN 31.8 pg (27.0-33.0); MEAN CORPUSCULAR HGB CONC 33.6 g/dl (32.0-36.5); MEAN CORPUSCULAR VOLUME 94.7 fl (80.0-96.0); MONO # 0.7 10^3/uL (0.0-0.8); MONO % 7.3 % (2.0-8.0); NEUTROPHILS # 5.9 10^3/uL (1.5-8.5); NEUTROPHILS % 62.9 % (36.0-66.0); PLATELET COUNT, AUTOMATED 290 10^3/uL (150-450); RED BLOOD COUNT 4.49 10^6/uL (4.00-5.40); WHITE BLOOD COUNT 9.3 10^3/uL (4.0-10.0)
[2021-12-23 18:18] LABS: ALBUMIN 3.6 GM/DL (3.2-5.2); ALT/SGPT 84 U/L (12-78); BILIRUBIN,DIRECT < 0.1 MG/DL (0.0-0.2); BILIRUBIN,TOTAL 0.6 MG/DL (0.2-1.0); BLOOD UREA NITROGEN 13 MG/DL (7-18); CALCIUM LEVEL 9.6 MG/DL (8.5-10.1); CARBON DIOXIDE LEVEL 25 MEQ/L (21-32); CHLORIDE LEVEL 104 MEQ/L (98-107); CREATININE FOR GFR 0.76 MG/DL (0.55-1.30); GLOMERULAR FILTRATION RATE > 60.0 (>60); GLUCOSE, FASTING 90 MG/DL (70-100); LIPASE 124 U/L (73-393); POTASSIUM SERUM 5.2 MEQ/L (3.5-5.1); SODIUM LEVEL 134 MEQ/L (136-145); TOTAL PROTEIN 7.6 GM/DL (6.4-8.2)
[2021-12-23 18:24] LABS: HCG, SERUM QUALITATIVE NEGATIVE (NEGATIVE)
[2021-12-23] MEDS ORDERED: ACETAMINOPHEN TAB 650MG DOSE (2X325MG) PO ONE (20:10)
[2021-12-23 20:18] VITALS: BP 128/89
== END 2021-12-23 20:20 | disposition home or self-care (01) ==
LOC: M ED 16:35
DX: R10.9 Unspecified abdominal pain (principal); R31.9 Hematuria, unspecified; R16.0 Hepatomegaly, not elsewhere classified; K57.30 Diverticulosis of large intestine without perforation or abscess without bleeding; Z88.0 Allergy status to penicillin; Z88.6 Allergy status to analgesic agent

== ENCOUNTER 2021-12-27 09:43 | Emergency (ER) | payer OTHER ==
[~2021-12-27] VITALS: Ht 154.9 cm; Wt 118.6 kg
[2021-12-27 11:38] LABS: BASO % 0.4 % (0.0-1.0); EOS # 0.1 10^3/uL (0.0-0.5); EOS % 1.4 % (0.0-3.0); HEMATOCRIT 39.3 % (36.0-47.0); HEMOGLOBIN 13.1 g/dl (12.0-15.5); LYMPH % 25.5 % (24.0-44.0); MEAN CORPUSCULAR HGB CONC 33.3 g/dl (32.0-36.5); MEAN CORPUSCULAR VOLUME 96.1 fl (80.0-96.0); MONO # 0.5 10^3/uL (0.0-0.8); MONO % 6.9 % (2.0-8.0); NEUTROPHILS # 5.1 10^3/uL (1.5-8.5); NEUTROPHILS % 65.2 % (36.0-66.0); PLATELET COUNT, AUTOMATED 271 10^3/uL (150-450); RED BLOOD COUNT 4.09 10^6/uL (4.00-5.40); WHITE BLOOD COUNT 7.8 10^3/uL (4.0-10.0)
[2021-12-27] MEDS ORDERED: ACETAMINOPHEN 1000MG 100ML IV BTL (OFIRMEV) (J0131 PER 10MG) IV ONE (11:45)
[2021-12-27 12:19] LABS: INR 0.88; PROTHROMBIN TIME 12.1 SECONDS (12.5-14.5)
[2021-12-27 12:32] LABS: BLOOD UREA NITROGEN 13 MG/DL (7-18); CARBON DIOXIDE LEVEL 27 MEQ/L (21-32); CHLORIDE LEVEL 105 MEQ/L (98-107); CREATININE FOR GFR 0.78 MG/DL (0.55-1.30); GLOMERULAR FILTRATION RATE > 60.0 (>60); GLUCOSE, FASTING 93 MG/DL (70-100); POTASSIUM SERUM 4.2 MEQ/L (3.5-5.1); SODIUM LEVEL 138 MEQ/L (136-145)
[2021-12-27] MEDS ORDERED: traMADol 50 MG TAB PO ONE (13:30)
[2021-12-27] MEDS ORDERED: ONDA4TAB6 PO (13:31)
[2021-12-27] MEDS ORDERED: ACET-716 PO (13:31)
[2021-12-27 13:36] VITALS: BP 130/96
[2021-12-28] MEDS ORDERED: BACT800T5 PO (09:11)
== END 2021-12-27 13:38 | disposition home or self-care (01) ==
LOC: M ED 09:43
DX: N30.01 Acute cystitis with hematuria (principal); R10.9 Unspecified abdominal pain; I10 Essential (primary) hypertension; Z87.442 Personal history of urinary calculi; D50.9 Iron deficiency anemia, unspecified; Z87.42 Personal history of other diseases of the female genital tract; Z86.711 Personal history of pulmonary embolism; Z90.49 Acquired absence of other specified parts of digestive tract; Z90.89 Acquired absence of other organs; Z88.0 Allergy status to penicillin; Z88.6 Allergy status to analgesic agent; Z88.8 Allergy status to other drugs, medicaments and biological substances; Z79.899 Other long term (current) drug therapy; Z79.01 Long term (current) use of anticoagulants
CPT/HCPCS: 76775; 80048; 81000; 85025; 85610; 87086; 96374; 99284; J0131

== ENCOUNTER 2021-12-28 09:03 | Emergency (ER) | payer OTHER ==
[2021-12-28] MEDS ORDERED: BACT800T5 PO (09:11)
[2021-12-28 10:08] LABS: BASO % 0.4 % (0.0-1.0); EOS # 0.1 10^3/uL (0.0-0.5); EOS % 1.5 % (0.0-3.0); HEMATOCRIT 39.1 % (36.0-47.0); HEMOGLOBIN 13.2 g/dl (12.0-15.5); LYMPH # 2.1 10^3/uL (1.5-5.0); LYMPH % 26.4 % (24.0-44.0); MEAN CORPUSCULAR HEMOGLOBIN 32.1 pg (27.0-33.0); MEAN CORPUSCULAR HGB CONC 33.8 g/dl (32.0-36.5); MEAN CORPUSCULAR VOLUME 95.1 fl (80.0-96.0); MONO # 0.6 10^3/uL (0.0-0.8); NEUTROPHILS # 5.1 10^3/uL (1.5-8.5); NEUTROPHILS % 63.4 % (36.0-66.0); PLATELET COUNT, AUTOMATED 277 10^3/uL (150-450); RED BLOOD COUNT 4.11 10^6/uL (4.00-5.40)
[2021-12-28 10:47] LABS: ALBUMIN 3.6 GM/DL (3.2-5.2); ALT/SGPT 87 U/L (12-78); BILIRUBIN,DIRECT 0.1 MG/DL (0.0-0.2); BILIRUBIN,TOTAL 0.4 MG/DL (0.2-1.0); BLOOD UREA NITROGEN 13 MG/DL (7-18); CARBON DIOXIDE LEVEL 25 MEQ/L (21-32); CHLORIDE LEVEL 107 MEQ/L (98-107); CREATININE FOR GFR 0.74 MG/DL (0.55-1.30); GLOMERULAR FILTRATION RATE > 60.0 (>60); GLUCOSE, FASTING 105 MG/DL (70-100); LIPASE 136 U/L (73-393); SODIUM LEVEL 138 MEQ/L (136-145); TOTAL PROTEIN 7.2 GM/DL (6.4-8.2)
[2021-12-28 11:04] LABS: HCG, SERUM QUALITATIVE NEGATIVE (NEGATIVE)
[2021-12-28] MEDS ORDERED: PERCOCET 5MG/325MG TAB PO ONE ×2 (11:35→13:20)
[2021-12-28] MEDS ORDERED: MORPHINE 4 MG/ML 1ML VIAL/SYRINGE IV PRN (11:50)
[2021-12-28] MEDS ORDERED: ONDANSETRON 4MG 2ML VIAL IV ONE (11:50)
[2021-12-28] MEDS ORDERED: FOSFOMYCIN TROMETHAMINE 3 GM POWDER PACKET (MONUROL) PO ONE (13:20)
[2021-12-28 13:23] LABS: GC DNA AMPLIFICATION NEGATIVE (NEGATIVE)
[2021-12-28 13:35] VITALS: BP 140/82
== END 2021-12-28 13:54 | disposition home or self-care (01) ==
LOC: M ED 09:03
DX: N30.00 Acute cystitis without hematuria (principal); R11.0 Nausea; Z87.442 Personal history of urinary calculi; J45.909 Unspecified asthma, uncomplicated; Z86.711 Personal history of pulmonary embolism; K76.0 Fatty (change of) liver, not elsewhere classified; Z90.89 Acquired absence of other organs; Z90.49 Acquired absence of other specified parts of digestive tract; Z88.0 Allergy status to penicillin; Z88.6 Allergy status to analgesic agent; Z88.8 Allergy status to other drugs, medicaments and biological substances; Z79.899 Other long term (current) drug therapy; Z79.01 Long term (current) use of anticoagulants
CPT/HCPCS: 80048; 80076; 81000; 83690; 84703; 85025; 87086; 87661; 87810; 87850; 96374; 96375; 99283; J2270; J2405

== ENCOUNTER 2022-01-14 12:13 | Emergency (ER) | payer OTHER ==
[~2022-01-14] VITALS: Ht 149.9 cm; Wt 126.6 kg
[2022-01-14] MEDS ORDERED: NS 1,000 ML IV ONE (17:25)
[2022-01-14] MEDS ORDERED: MORPHINE 4 MG/ML 1ML VIAL/SYRINGE IV ONE (17:25)
[2022-01-14 17:47] LABS: BASO % 0.5 % (0.0-1.0); EOS # 0.1 10^3/uL (0.0-0.5); EOS % 1.1 % (0.0-3.0); HEMOGLOBIN 13.5 g/dl (12.0-15.5); LYMPH # 2.2 10^3/uL (1.5-5.0); LYMPH % 27.5 % (24.0-44.0); MEAN CORPUSCULAR HEMOGLOBIN 31.5 pg (27.0-33.0); MEAN CORPUSCULAR HGB CONC 32.9 g/dl (32.0-36.5); MEAN CORPUSCULAR VOLUME 95.8 fl (80.0-96.0); MONO # 0.5 10^3/uL (0.0-0.8); MONO % 5.8 % (2.0-8.0); NEUTROPHILS # 5.3 10^3/uL (1.5-8.5); NEUTROPHILS % 64.6 % (36.0-66.0); PLATELET COUNT, AUTOMATED 273 10^3/uL (150-450); RED BLOOD COUNT 4.28 10^6/uL (4.00-5.40); WHITE BLOOD COUNT 8.1 10^3/uL (4.0-10.0)
[2022-01-14 18:29] LABS: BLOOD UREA NITROGEN 13 MG/DL (7-18); CARBON DIOXIDE LEVEL 25 MEQ/L (21-32); CHLORIDE LEVEL 107 MEQ/L (98-107); CREATININE FOR GFR 0.74 MG/DL (0.55-1.30); GLOMERULAR FILTRATION RATE > 60.0 (>60); GLUCOSE, FASTING 83 MG/DL (70-100); POTASSIUM SERUM 4.2 MEQ/L (3.5-5.1); SODIUM LEVEL 140 MEQ/L (136-145)
[2022-01-14 18:50] LABS: HCG, SERUM QUALITATIVE NEGATIVE (NEGATIVE)
[2022-01-14] MEDS ORDERED: LevoFLOXacin 750 MG TABLET PO ONE (19:55)
[2022-01-14] MEDS ORDERED: LEVO1TAB39 PO (19:58)
[2022-01-14] MEDS ORDERED: TRAM50TA2 PO (19:59)
[2022-01-14 20:08] VITALS: BP 146/82
== END 2022-01-14 20:10 | disposition home or self-care (01) ==
LOC: M ED 12:13
DX: N10 Acute pyelonephritis (principal); R11.2 Nausea with vomiting, unspecified; Z87.442 Personal history of urinary calculi; Z86.711 Personal history of pulmonary embolism; Z90.49 Acquired absence of other specified parts of digestive tract; Z90.89 Acquired absence of other organs; Z88.6 Allergy status to analgesic agent; Z88.8 Allergy status to other drugs, medicaments and biological substances; Z88.0 Allergy status to penicillin; Z79.01 Long term (current) use of anticoagulants; Z79.899 Other long term (current) drug therapy
CPT/HCPCS: 74176; 80048; 81000; 84703; 85025; 87086; 96361; 96374; 99283; J2270

== ENCOUNTER 2022-01-20 16:59 | Emergency (ER) | payer OTHER ==
[~2022-01-20] VITALS: Ht 154.9 cm; Wt 127.9 kg
[~2022-01-20 16:59] MED LIST changes: +LEVO1TAB39 PO
[2022-01-20 21:45] VITALS: BP 150/100
== END 2022-01-21 00:02 | disposition left against medical advice (07) ==
LOC: M ED 16:59
DX: Z53.21 Procedure and treatment not carried out due to patient leaving prior to being seen by health care provider (principal)

== ENCOUNTER 2022-01-25 08:17 | Emergency (ER) | payer OTHER ==
[~2022-01-25] VITALS: Ht 154.9 cm; Wt 127.0 kg
[2022-01-25 10:05] LABS: INR 0.99; PROTHROMBIN TIME 13.3 SECONDS (12.5-14.5)
[2022-01-25 10:13] LABS: BASO % 0.2 % (0.0-1.0); HEMATOCRIT 39.4 % (36.0-47.0); HEMOGLOBIN 13.2 g/dl (12.0-15.5); LYMPH # 1.6 10^3/uL (1.5-5.0); MEAN CORPUSCULAR HEMOGLOBIN 31.8 pg (27.0-33.0); MEAN CORPUSCULAR HGB CONC 33.5 g/dl (32.0-36.5); MEAN CORPUSCULAR VOLUME 94.9 fl (80.0-96.0); MONO # 0.7 10^3/uL (0.0-0.8); MONO % 4.1 % (2.0-8.0); NEUTROPHILS # 14.8 10^3/uL (1.5-8.5); NEUTROPHILS % 85.5 % (36.0-66.0); PLATELET COUNT, AUTOMATED 346 10^3/uL (150-450); RED BLOOD COUNT 4.15 10^6/uL (4.00-5.40); WHITE BLOOD COUNT 17.4 10^3/uL (4.0-10.0)
[2022-01-25 10:14] LABS: HCG, SERUM QUALITATIVE NEGATIVE (NEGATIVE)
[2022-01-25 10:18] LABS: ALBUMIN 3.6 GM/DL (3.2-5.2); ALT/SGPT 63 U/L (12-78); BILIRUBIN,DIRECT 0.1 MG/DL (0.0-0.2); BILIRUBIN,TOTAL 0.3 MG/DL (0.2-1.0); BLOOD UREA NITROGEN 21 MG/DL (7-18); CALCIUM LEVEL 9.8 MG/DL (8.5-10.1); CARBON DIOXIDE LEVEL 25 MEQ/L (21-32); CHLORIDE LEVEL 102 MEQ/L (98-107); CREATININE FOR GFR 0.85 MG/DL (0.55-1.30); GLOMERULAR FILTRATION RATE > 60.0 (>60); GLUCOSE, FASTING 146 MG/DL (70-100); LIPASE 87 U/L (73-393); POTASSIUM SERUM 3.9 MEQ/L (3.5-5.1); SODIUM LEVEL 135 MEQ/L (136-145); TOTAL PROTEIN 7.6 GM/DL (6.4-8.2)
[2022-01-25] MEDS ORDERED: MORPHINE 4 MG/ML 1ML VIAL/SYRINGE IV PRN (11:15)
[2022-01-25] MEDS ORDERED: ONDANSETRON 4MG 2ML VIAL IV ONE (11:15)
[2022-01-25] MEDS ORDERED: PERC5TAB12 PO (12:52)
[2022-01-25 13:41] VITALS: BP 135/72
== END 2022-01-25 13:43 | disposition home or self-care (01) ==
LOC: M ED 08:17
DX: R31.9 Hematuria, unspecified (principal); G89.29 Other chronic pain; R10.9 Unspecified abdominal pain; I10 Essential (primary) hypertension; J45.909 Unspecified asthma, uncomplicated; K04.7 Periapical abscess without sinus; K76.0 Fatty (change of) liver, not elsewhere classified; Z79.01 Long term (current) use of anticoagulants; Z79.899 Other long term (current) drug therapy; Z88.0 Allergy status to penicillin; Z88.8 Allergy status to other drugs, medicaments and biological substances; Z87.440 Personal history of urinary (tract) infections; Z90.49 Acquired absence of other specified parts of digestive tract; Z86.711 Personal history of pulmonary embolism; Z98.890 Other specified postprocedural states; Z96.0 Presence of urogenital implants
CPT/HCPCS: 76775; 80048; 80076; 81000; 83690; 84703; 85025; 85610; 87086; 96374; 96375; 99284; J2270; J2405

== ENCOUNTER 2022-02-21 12:30 | Emergency (ER) | payer OTHER ==
[~2022-02-21] VITALS: Ht 154.9 cm; Wt 127.0 kg
[2022-02-21 12:30] VITALS: BP 142/88
== END 2022-02-21 15:05 | disposition left against medical advice (07) ==
LOC: M ED 12:30
DX: Z53.21 Procedure and treatment not carried out due to patient leaving prior to being seen by health care provider (principal)

== ENCOUNTER 2022-04-19 07:58 | Emergency (ER) | payer OTHER ==
[~2022-04-19] VITALS: Ht 154.9 cm; Wt 126.6 kg
[2022-04-19] MEDS ORDERED: HYDR-4571 (08:21)
[2022-04-19] MEDS ORDERED: NS 1,000 ML IV ONE (08:55)
[2022-04-19] MEDS ORDERED: ONDANSETRON 4MG 2ML VIAL IV ONE (08:55)
[2022-04-19] MEDS ORDERED: HALOPERIDOL 5MG/ML 1ML VIAL IV ONE (09:05)
[2022-04-19 09:34] LABS: BASO % 0.4 % (0.0-1.0); EOS # 0.2 10^3/uL (0.0-0.5); EOS % 3.4 % (0.0-3.0); HEMOGLOBIN 10.9 g/dl (12.0-15.5); LYMPH # 1.4 10^3/uL (1.5-5.0); LYMPH % 24.3 % (24.0-44.0); MEAN CORPUSCULAR HEMOGLOBIN 31.2 pg (27.0-33.0); MEAN CORPUSCULAR VOLUME 94.6 fl (80.0-96.0); MONO # 0.4 10^3/uL (0.0-0.8); MONO % 6.6 % (2.0-8.0); NEUTROPHILS # 3.6 10^3/uL (1.5-8.5); NEUTROPHILS % 64.2 % (36.0-66.0); PLATELET COUNT, AUTOMATED 267 10^3/uL (150-450); RED BLOOD COUNT 3.49 10^6/uL (4.00-5.40); WHITE BLOOD COUNT 5.6 10^3/uL (4.0-10.0)
[2022-04-19 09:52] LABS: ALBUMIN 3.1 G/DL (3.2-5.2); BILIRUBIN,DIRECT 0.1 MG/DL (<0.4); BILIRUBIN,TOTAL 0.4 MG/DL (0.3-1.2); TOTAL PROTEIN 6.1 G/DL (5.7-8.2)
[2022-04-19 09:57] VITALS: BP 167/75
== END 2022-04-19 10:44 | disposition home or self-care (01) ==
LOC: M ED 07:58
DX: R10.9 Unspecified abdominal pain (principal); D64.9 Anemia, unspecified; R31.9 Hematuria, unspecified; R94.5 Abnormal results of liver function studies; G89.29 Other chronic pain; M54.9 Dorsalgia, unspecified; Z88.0 Allergy status to penicillin; Z88.6 Allergy status to analgesic agent; Z88.8 Allergy status to other drugs, medicaments and biological substances; Z79.899 Other long term (current) drug therapy; Z90.49 Acquired absence of other specified parts of digestive tract; Z90.89 Acquired absence of other organs; J45.909 Unspecified asthma, uncomplicated; Z86.711 Personal history of pulmonary embolism; K76.0 Fatty (change of) liver, not elsewhere classified; D68.2 Hereditary deficiency of other clotting factors; Z79.01 Long term (current) use of anticoagulants
CPT/HCPCS: 80047; 80076; 81000; 81015; 83690; 85025; 87086; 96361; 96374; 96375; 99284; J1630; J2405

== ENCOUNTER 2022-06-12 13:08 | Emergency (ER) | payer OTHER ==
[~2022-06-12] VITALS: Ht 154.9 cm; Wt 124.2 kg
[2022-06-12 13:09] VITALS: BP 176/83
[2022-06-12] MEDS ORDERED: CYCL-707 PO (13:47)
[2022-06-12] MEDS ORDERED: OLME20TA2 PO (13:47)
[2022-06-12 14:34] LABS: BASO % 0.3 % (0.0-1.0); EOS # 0.1 10^3/uL (0.0-0.5); EOS % 1.2 % (0.0-3.0); LYMPH # 1.9 10^3/uL (1.5-5.0); LYMPH % 28.2 % (24.0-44.0); MEAN CORPUSCULAR HEMOGLOBIN 30.4 pg (27.0-33.0); MEAN CORPUSCULAR HGB CONC 32.4 g/dl (32.0-36.5); MEAN CORPUSCULAR VOLUME 93.7 fl (80.0-96.0); MONO # 0.5 10^3/uL (0.0-0.8); MONO % 7.8 % (2.0-8.0); NEUTROPHILS # 4.2 10^3/uL (1.5-8.5); NEUTROPHILS % 62.1 % (36.0-66.0); PLATELET COUNT, AUTOMATED 302 10^3/uL (150-450); RED BLOOD COUNT 3.95 10^6/uL (4.00-5.40); WHITE BLOOD COUNT 6.8 10^3/uL (4.0-10.0)
== END 2022-06-12 15:34 | disposition home or self-care (01) ==
LOC: M ED 13:08
DX: R31.9 Hematuria, unspecified (principal); R10.9 Unspecified abdominal pain; Z87.442 Personal history of urinary calculi; Z90.49 Acquired absence of other specified parts of digestive tract; Z90.89 Acquired absence of other organs; K76.0 Fatty (change of) liver, not elsewhere classified; D68.2 Hereditary deficiency of other clotting factors; Z88.0 Allergy status to penicillin; Z88.6 Allergy status to analgesic agent; Z88.8 Allergy status to other drugs, medicaments and biological substances; Z79.899 Other long term (current) drug therapy; Z79.01 Long term (current) use of anticoagulants

== ENCOUNTER 2022-08-06 15:41 | Emergency (ER) | payer OTHER ==
[~2022-08-06] VITALS: Ht 154.9 cm; Wt 121.7 kg
[~2022-08-06 15:41] MED LIST changes: +FLUT50SP17; -FLUTISP; +OLME20TA2 PO
[2022-08-06 15:47] VITALS: BP 142/74
[2022-08-06 16:46] LABS: BASO % 0.3 % (0.0-1.0); EOS # 0.1 10^3/uL (0.0-0.5); EOS % 1.2 % (0.0-3.0); HEMATOCRIT 36.5 % (36.0-47.0); HEMOGLOBIN 11.4 g/dl (12.0-15.5); LYMPH % 29.8 % (24.0-44.0); MEAN CORPUSCULAR HGB CONC 31.2 g/dl (32.0-36.5); MEAN CORPUSCULAR VOLUME 89.7 fl (80.0-96.0); MONO # 0.4 10^3/uL (0.0-0.8); MONO % 5.6 % (2.0-8.0); NEUTROPHILS # 4.1 10^3/uL (1.5-8.5); NEUTROPHILS % 62.8 % (36.0-66.0); PLATELET COUNT, AUTOMATED 331 10^3/uL (150-450); RED BLOOD COUNT 4.07 10^6/uL (4.00-5.40); WHITE BLOOD COUNT 6.6 10^3/uL (4.0-10.0)
[2022-08-06 17:14] LABS: BLOOD UREA NITROGEN 13 MG/DL (9-23); CALCIUM LEVEL 8.5 MG/DL (8.5-10.1); CARBON DIOXIDE LEVEL 26 MMOL/L (20-31); CHLORIDE LEVEL 109 MMOL/L (98-107); CREATININE FOR GFR 0.79 MG/DL (0.55-1.30); GLOMERULAR FILTRATION RATE > 60.0 (>60); GLUCOSE, FASTING 92 MG/DL (60-100); POTASSIUM SERUM 3.8 MMOL/L (3.5-5.1); SODIUM LEVEL 139 MMOL/L (136-145)
[2022-08-06] MEDS ORDERED: LIDOCAINE 5% (LIDODERM) PATCH TD ONE (17:55)
== END 2022-08-06 20:33 | disposition left against medical advice (07) ==
LOC: M ED 15:41
DX: N39.0 Urinary tract infection, site not specified (principal); R10.9 Unspecified abdominal pain; Z88.0 Allergy status to penicillin; Z88.6 Allergy status to analgesic agent; Z88.8 Allergy status to other drugs, medicaments and biological substances; Z79.01 Long term (current) use of anticoagulants

== ENCOUNTER 2022-10-04 14:06 | Emergency (ER) | payer OTHER ==
[~2022-10-04] VITALS: Ht 154.9 cm; Wt 122.7 kg
[~2022-10-04 14:06] MED LIST changes: +DICY-61 PO; -DICY10CA13 PO
[2022-10-04] MEDS ORDERED: MONT10TA97 (14:32)
[2022-10-04] MEDS ORDERED: LEVOTAB10 (14:32)
[2022-10-04 17:14] LABS: BASO % 0.3 % (0.0-1.0); EOS # 0.2 10^3/uL (0.0-0.5); HEMATOCRIT 38.2 % (36.0-47.0); HEMOGLOBIN 12.1 g/dl (12.0-15.5); LYMPH # 2.9 10^3/uL (1.5-5.0); LYMPH % 31.8 % (24.0-44.0); MEAN CORPUSCULAR HEMOGLOBIN 27.3 pg (27.0-33.0); MEAN CORPUSCULAR HGB CONC 31.7 g/dl (32.0-36.5); MEAN CORPUSCULAR VOLUME 86.2 fl (80.0-96.0); MONO # 0.8 10^3/uL (0.0-0.8); MONO % 8.3 % (2.0-8.0); NEUTROPHILS # 5.2 10^3/uL (1.5-8.5); NEUTROPHILS % 56.8 % (36.0-66.0); PLATELET COUNT, AUTOMATED 357 10^3/uL (150-450); RED BLOOD COUNT 4.43 10^6/uL (4.00-5.40); WHITE BLOOD COUNT 9.1 10^3/uL (4.0-10.0)
[2022-10-04] MEDS ORDERED: fentaNYL 100 MCG/2 ML INJECTION IV ONE (17:25)
[2022-10-04 17:35] LABS: LIPASE 44 U/L (12-53)
[2022-10-04 17:37] LABS: ALBUMIN 3.7 G/DL (3.2-5.2); ALKALINE PHOSPHATASE 113 U/L (46-116); ALT/SGPT 72 U/L (7.0-40); AST/SGOT 62 U/L (<34); BILIRUBIN,DIRECT 0.1 MG/DL (<0.4); BILIRUBIN,TOTAL 0.4 MG/DL (0.3-1.2); BLOOD UREA NITROGEN 14 MG/DL (9-23); CALCIUM LEVEL 9.1 MG/DL (8.5-10.1); CARBON DIOXIDE LEVEL 29 MMOL/L (20-31); CHLORIDE LEVEL 102 MMOL/L (98-107); CREATININE FOR GFR 0.71 MG/DL (0.55-1.30); GLOMERULAR FILTRATION RATE > 60.0 (>60); GLUCOSE, FASTING 70 MG/DL (60-100); POTASSIUM SERUM 4.4 MMOL/L (3.5-5.1); SODIUM LEVEL 139 MMOL/L (136-145); TOTAL PROTEIN 7.2 G/DL (5.7-8.2)
[2022-10-04 17:47] LABS: HCG, SERUM QUALITATIVE NEGATIVE (NEGATIVE)
[2022-10-04 19:32] LABS: GC DNA AMPLIFICATION NEGATIVE (NEGATIVE)
[2022-10-04] MEDS ORDERED: HYDROMORPHONE HCL 0.5 MG/ 0.5 ML SYRINGE IV ONE (20:05)
[2022-10-04 20:52] LABS: INR 2.06; PROTHROMBIN TIME 23.6 SECONDS (12.5-14.5)
[2022-10-04] MEDS ORDERED: BACT800T5 PO (21:16)
[2022-10-04 21:36] VITALS: BP 157/84; TEMP 97.6; O2SAT 97
== END 2022-10-04 21:38 | disposition home or self-care (01) ==
LOC: M ED 14:06
DX: R10.31 Right lower quadrant pain (principal); R31.9 Hematuria, unspecified; N83.201 Unspecified ovarian cyst, right side; I10 Essential (primary) hypertension; K57.92 Diverticulitis of intestine, part unspecified, without perforation or abscess without bleeding; Z86.711 Personal history of pulmonary embolism; Z87.442 Personal history of urinary calculi; Z88.0 Allergy status to penicillin; Z88.6 Allergy status to analgesic agent; Z88.8 Allergy status to other drugs, medicaments and biological substances; Z79.01 Long term (current) use of anticoagulants; Z79.899 Other long term (current) drug therapy
CPT/HCPCS: 76775; 76856; 80048; 80076; 81001; 83690; 84703; 85025; 85610; 85730; 87086; 87661; 87810; 87850; 93976; 96374; 96375; 99283; J1170; J3010

== ENCOUNTER 2022-11-14 15:01 | Emergency (ER) | payer MEDICAID, MEDICARE, OTHER ==
[~2022-11-14] VITALS: Ht 154.9 cm; Wt 123.0 kg
[~2022-11-14 15:01] MED LIST changes: +LEVOTAB10; +MONT10TA97
[2022-11-14 20:13] LABS: BASO % 0.4 % (0.0-1.0); EOS # 0.1 10^3/uL (0.0-0.5); EOS % 1.1 % (0.0-3.0); HEMATOCRIT 34.3 % (36.0-47.0); LYMPH # 2.6 10^3/uL (1.5-5.0); MEAN CORPUSCULAR HEMOGLOBIN 28.1 pg (27.0-33.0); MEAN CORPUSCULAR HGB CONC 32.1 g/dl (32.0-36.5); MEAN CORPUSCULAR VOLUME 87.7 fl (80.0-96.0); MONO # 0.5 10^3/uL (0.0-0.8); MONO % 6.8 % (2.0-8.0); NEUTROPHILS % 55.1 % (36.0-66.0); PLATELET COUNT, AUTOMATED 300 10^3/uL (150-450); RED BLOOD COUNT 3.91 10^6/uL (4.00-5.40); WHITE BLOOD COUNT 7.3 10^3/uL (4.0-10.0)
[2022-11-14 20:27] LABS: INR 1.77; LIPASE 37 U/L (12-53); PROTHROMBIN TIME 20.1 SECONDS (12.5-14.5)
[2022-11-14 20:28] LABS: PARTIAL THROMBOPLASTIN TIME 33.5 SECONDS (24.8-34.2)
[2022-11-14 20:29] LABS: AMYLASE 59 U/L (30-118)
[2022-11-14 20:30] LABS: ALBUMIN 3.6 G/DL (3.2-5.2); ALKALINE PHOSPHATASE 108 U/L (46-116); ALT/SGPT 44 U/L (7.0-40); AST/SGOT 34 U/L (<34); BILIRUBIN,DIRECT 0.1 MG/DL (<0.4); BILIRUBIN,TOTAL 0.3 MG/DL (0.3-1.2); BLOOD UREA NITROGEN 17 MG/DL (9-23); CARBON DIOXIDE LEVEL 26 MMOL/L (20-31); CHLORIDE LEVEL 107 MMOL/L (98-107); CREATININE FOR GFR 0.75 MG/DL (0.55-1.30); GLOMERULAR FILTRATION RATE > 60.0 (>60); GLUCOSE, FASTING 94 MG/DL (60-100); POTASSIUM SERUM 4.1 MMOL/L (3.5-5.1); SODIUM LEVEL 142 MMOL/L (136-145); TOTAL PROTEIN 6.9 G/DL (5.7-8.2)
[2022-11-14] MEDS ORDERED: ACETAMINOPHEN 500 MG TAB PO ONE (21:00)
[2022-11-14] MEDS ORDERED: NITROFURANTOIN (MACROBID) 100 MG CAP PO ONE (21:00)
[2022-11-14] MEDS ORDERED: MACR100C43 PO (22:24)
[2022-11-14] MEDS ORDERED: MIRA3350 PO (22:24)
[2022-11-14 22:33] VITALS: BP 129/89; TEMP 98; O2SAT 99
== END 2022-11-14 22:25 | disposition home or self-care (01) ==
LOC: M ED 15:01
DX: N39.0 Urinary tract infection, site not specified (principal); K59.00 Constipation, unspecified; N83.201 Unspecified ovarian cyst, right side; K57.92 Diverticulitis of intestine, part unspecified, without perforation or abscess without bleeding; D68.2 Hereditary deficiency of other clotting factors; J45.909 Unspecified asthma, uncomplicated; Z86.711 Personal history of pulmonary embolism; Z88.0 Allergy status to penicillin; Z88.6 Allergy status to analgesic agent; Z88.8 Allergy status to other drugs, medicaments and biological substances; Z79.899 Other long term (current) drug therapy; Z79.01 Long term (current) use of anticoagulants

== ENCOUNTER 2023-02-26 11:11 | Emergency (ER) | payer OTHER ==
[~2023-02-26] VITALS: Ht 154.9 cm; Wt 124.4 kg
[~2023-02-26 11:11] MED LIST changes: -FLUT50SP17; +FLUTISP; -OLME20TA2 PO; +OLME20TA50 PO
[2023-02-26] MEDS ORDERED: MORPHINE 4 MG/ML 1ML VIAL IV ONE ×2 (13:15→15:00)
[2023-02-26] MEDS ORDERED: ONDANSETRON 4MG 2ML VIAL IV ONE (13:15)
[2023-02-26 13:51] LABS: BASO % 0.3 % (0.0-1.0); EOS # 0.1 10^3/uL (0.0-0.5); EOS % 1.4 % (0.0-3.0); HEMATOCRIT 33.6 % (36.0-47.0); HEMOGLOBIN 10.7 g/dl (12.0-15.5); LYMPH # 2.2 10^3/uL (1.5-5.0); LYMPH % 26.9 % (24.0-44.0); MEAN CORPUSCULAR HEMOGLOBIN 27.6 pg (27.0-33.0); MEAN CORPUSCULAR HGB CONC 31.8 g/dl (32.0-36.5); MEAN CORPUSCULAR VOLUME 86.8 fl (80.0-96.0); MONO # 0.6 10^3/uL (0.0-0.8); MONO % 7.4 % (2.0-8.0); NEUTROPHILS # 5.1 10^3/uL (1.5-8.5); NEUTROPHILS % 63.5 % (36.0-66.0); PLATELET COUNT, AUTOMATED 286 10^3/uL (150-450); RED BLOOD COUNT 3.87 10^6/uL (4.00-5.40)
[2023-02-26 14:12] LABS: LIPASE 29 U/L (12-53)
[2023-02-26 14:14] LABS: ALBUMIN 3.3 G/DL (3.2-5.2); ALKALINE PHOSPHATASE 96 U/L (46-116); ALT/SGPT 57 U/L (7.0-40); AST/SGOT 59 U/L (<34); BILIRUBIN,DIRECT < 0.1 MG/DL (<0.4); BILIRUBIN,TOTAL 0.2 MG/DL (0.3-1.2); TOTAL PROTEIN 6.6 G/DL (5.7-8.2)
[2023-02-26 14:22] LABS: HCG, SERUM QUALITATIVE NEGATIVE (NEGATIVE)
[2023-02-26] MEDS ORDERED: NS 1,000 ML IV ONE (15:00)
[2023-02-26 15:05] LABS: INR 1.02; PROTHROMBIN TIME 13.1 SECONDS (12.5-14.5)
[2023-02-26 15:37] VITALS: BP 137/85; TEMP 97.2; O2SAT 98
== END 2023-02-26 15:38 | disposition home or self-care (01) ==
LOC: M ED 11:11
DX: N83.291 Other ovarian cyst, right side (principal); E66.9 Obesity, unspecified; Z87.442 Personal history of urinary calculi; R16.0 Hepatomegaly, not elsewhere classified; K76.0 Fatty (change of) liver, not elsewhere classified; Z79.01 Long term (current) use of anticoagulants; Z88.0 Allergy status to penicillin; Z88.1 Allergy status to other antibiotic agents; Z88.6 Allergy status to analgesic agent; Z88.8 Allergy status to other drugs, medicaments and biological substances
CPT/HCPCS: 74176; 76856; 80047; 80076; 81001; 83690; 84703; 85025; 85610; 87086; 93976; 96374; 96375; 99284; J2405

== ENCOUNTER 2023-03-12 12:07 | Emergency (ER) | payer OTHER ==
[~2023-03-12] VITALS: Ht 154.9 cm; Wt 121.5 kg
[2023-03-12 12:07] VITALS: BP 147/85; TEMP 97.8; O2SAT 100
[2023-03-12] MEDS ORDERED: HYDR-4514 (12:24)
[2023-03-12] MEDS ORDERED: MONT10TA97 (12:24)
[2023-03-12] MEDS ORDERED: CETI-24 (12:24)
[2023-03-12] MEDS ORDERED: OLME20TA50 (12:24)
[2023-03-12 14:12] LABS: BASO % 0.2 % (0.0-1.0); EOS # 0.1 10^3/uL (0.0-0.5); EOS % 0.8 % (0.0-3.0); HEMATOCRIT 37.7 % (36.0-47.0); HEMOGLOBIN 11.8 g/dl (12.0-15.5); LYMPH # 2.9 10^3/uL (1.5-5.0); LYMPH % 32.5 % (24.0-44.0); MEAN CORPUSCULAR HEMOGLOBIN 27.1 pg (27.0-33.0); MEAN CORPUSCULAR HGB CONC 31.3 g/dl (32.0-36.5); MEAN CORPUSCULAR VOLUME 86.5 fl (80.0-96.0); MONO # 0.5 10^3/uL (0.0-0.8); MONO % 5.4 % (2.0-8.0); NEUTROPHILS # 5.4 10^3/uL (1.5-8.5); NEUTROPHILS % 60.8 % (36.0-66.0); PLATELET COUNT, AUTOMATED 356 10^3/uL (150-450); RED BLOOD COUNT 4.36 10^6/uL (4.00-5.40); WHITE BLOOD COUNT 8.9 10^3/uL (4.0-10.0)
[2023-03-12 14:17] LABS: BLOOD UREA NITROGEN 20 MG/DL (9-23); CALCIUM LEVEL 8.6 MG/DL (8.5-10.1); CARBON DIOXIDE LEVEL 25 MMOL/L (20-31); CHLORIDE LEVEL 107 MMOL/L (98-107); CREATININE FOR GFR 0.66 MG/DL (0.55-1.30); GLOMERULAR FILTRATION RATE > 60.0 (>60); GLUCOSE, FASTING 85 MG/DL (60-100); HCG, SERUM QUALITATIVE NEGATIVE (NEGATIVE); POTASSIUM SERUM 4.1 MMOL/L (3.5-5.1); SODIUM LEVEL 140 MMOL/L (136-145)
[2023-03-12] MEDS ORDERED: fentaNYL 100 MCG/2 ML INJECTION IV PRN (15:10)
== END 2023-03-12 15:50 | disposition left against medical advice (07) ==
LOC: M ED 12:07
DX: N83.201 Unspecified ovarian cyst, right side (principal); N83.202 Unspecified ovarian cyst, left side; D25.1 Intramural leiomyoma of uterus; I10 Essential (primary) hypertension; K76.0 Fatty (change of) liver, not elsewhere classified; D68.2 Hereditary deficiency of other clotting factors; Z86.711 Personal history of pulmonary embolism; K57.92 Diverticulitis of intestine, part unspecified, without perforation or abscess without bleeding; Z88.0 Allergy status to penicillin; Z88.8 Allergy status to other drugs, medicaments and biological substances; Z79.899 Other long term (current) drug therapy; Z79.891 Long term (current) use of opiate analgesic; Z84.89 Family history of other specified conditions

== ENCOUNTER 2023-03-14 12:04 | Emergency (ER) | payer OTHER ==
[~2023-03-14] VITALS: Ht 154.9 cm; Wt 121.0 kg
[~2023-03-14 12:04] MED LIST changes: +HYDR-4514; +OLME20TA50
[2023-03-14 13:42] LABS: HEMATOCRIT 37.2 % (36.0-47.0); HEMOGLOBIN 11.8 g/dl (12.0-15.5); MEAN CORPUSCULAR HEMOGLOBIN 27.4 pg (27.0-33.0); MEAN CORPUSCULAR HGB CONC 31.7 g/dl (32.0-36.5); MEAN CORPUSCULAR VOLUME 86.5 fl (80.0-96.0); PLATELET COUNT, AUTOMATED 335 10^3/uL (150-450); WHITE BLOOD COUNT 8.4 10^3/uL (4.0-10.0)
[2023-03-14 14:18] LABS: BLOOD UREA NITROGEN 15 MG/DL (9-23); CALCIUM LEVEL 8.7 MG/DL (8.5-10.1); CARBON DIOXIDE LEVEL 28 MMOL/L (20-31); CHLORIDE LEVEL 108 MMOL/L (98-107); CREATININE FOR GFR 0.64 MG/DL (0.55-1.30); GLOMERULAR FILTRATION RATE > 60.0 (>60); GLUCOSE, FASTING 87 MG/DL (60-100); SODIUM LEVEL 141 MMOL/L (136-145)
[2023-03-14] MEDS ORDERED: MORPHINE 4 MG/ML 1ML VIAL IV ONE ×2 (16:00→18:20)
[2023-03-14] MEDS ORDERED: NS 1,000 ML IV ONE (16:00)
[2023-03-14 18:26] VITALS: BP 125/78; TEMP 97.8; O2SAT 97
== END 2023-03-14 18:33 | disposition left against medical advice (07) ==
LOC: M ED 12:04
DX: R10.31 Right lower quadrant pain (principal); Z88.0 Allergy status to penicillin; Z88.8 Allergy status to other drugs, medicaments and biological substances; Z79.899 Other long term (current) drug therapy